=== PATIENT | female | born 1960 | race Caucasian/White ===

== ENCOUNTER 2016-12-03 19:11 | Inpatient (IN) | payer MEDICARE, MEDICAID ==
[~2016-12-03] VITALS: Ht 162.6 cm; Wt 57.1 kg
[~2016-12-03 19:11] MED LIST: HYDR-902 PO
[2016-12-03] MEDS ORDERED: VANCOMYCIN 1 GM (PMX) 250 ML IVPB STA (19:46)
[2016-12-03] MEDS ORDERED: CEFEPIME 2GM/50 ML (PMX) 50 ML IVPB STA (19:46)
[2016-12-03] MEDS ORDERED: SODIUM CHLORIDE 0.9% 1L BAG IV* STA (19:46)
[2016-12-03] MEDS ORDERED: MINE3.5O31 BOTH EYES (20:03)
[2016-12-03] MEDS ORDERED: DOCU-144 PO (20:04)
[2016-12-03 20:06] LABS: BASOPHILS % 0.3 % (0.0-2.0); EOSINOPHILS # 0.3 10^3/ul (0.0-0.5); EOSINOPHILS % 2.4 % (0.0-7.0); HEMOGLOBIN 13.9 g/dl (12.0-16.0); LYMPHOCYTES # 2.6 10^3/ul (0.8-2.9); LYMPHOCYTES % 23.7 % (15.0-51.0); MEAN CORPUSCULAR HEMOGLOBIN 33.3 pg (29.0-33.0); MEAN PLATELET VOLUME 9.9 fl (7.4-10.4); MONOCYTE # 0.9 10^3/ul (0.3-0.9); MONOCYTES % 8.5 % (0.0-11.0); NEUTROPHIL # 7.2 10^3/ul (1.6-7.5); NEUTROPHILS % 65.1 % (39.0-77.0); PLATELET COUNT 255 10^3/UL (140-440); RED BLOOD COUNT 4.16 10^6/ul (4.20-5.40); RED CELL DISTRIBUTION WIDTH 14.9 % (11.5-14.5)
[2016-12-03] MEDS ORDERED: CRAN450C PO (20:06)
[2016-12-03] MEDS ORDERED: DULR PR (20:07)
[2016-12-03] MEDS ORDERED: FLEETPED PR (20:08)
[2016-12-03] MEDS ORDERED: LANT3I SC (20:09)
[2016-12-03 20:10] LABS: CONDITION 1; LH ANALYZER COMMENTS 1
[2016-12-03] MEDS ORDERED: BIMA2.5D BOTH EYES (20:11)
[2016-12-03] MEDS ORDERED: MAGN400O4 PO (20:11)
--- NOTE | 2016-12-03 20:11 | RADRPT ---
PROCEDURE: XR Chest. CLINICAL INDICATION: Sepsis. Altered mental status. TECHNIQUE: Single frontal view. COMPARISON: None. FINDINGS: There is patchy air space disease at the left lung base consistent with pneumonia. The lungs are ot herwise clear. The heart size is normal. There is no pleural effusion. There is no pneumothorax. IMPRESSION: 1. Left basilar pneumonia. 2. Otherwise normal chest radiograph. RPTAT: QQ .Adarsh Anna MD, MD Date Time Electronically viewed and signed by .Adarsh Anna MD, MD on 12/03/2016 20:11 .R/
[2016-12-03] MEDS ORDERED: MULT-105 PO (20:13)
[2016-12-03 20:14] LABS: ALBUMIN 3.7 g/dl (3.3-4.9)
[2016-12-03 20:15] LABS: POTASSIUM 4.6 mmol/L (3.5-5.1)
[2016-12-03] MEDS ORDERED: NOVO3I SC (20:15)
[2016-12-03 20:17] LABS: BILIRUBIN,INDIRECT 0.1 mg/dl (0-1.1); BILIRUBIN,TOTAL 0.1 mg/dl (0.2-1.3); CREATININE 1.13 mg/dl (0.44-1.00); TOTAL PROTEIN 7.4 g/dl (6.1-8.1)
[2016-12-03] MEDS ORDERED: POTA20TA96 PO (20:17)
[2016-12-03] MEDS ORDERED: CRES10 PO (20:17)
[2016-12-03 20:18] LABS: CALCIUM 9.3 mg/dl (8.4-10.2)
[2016-12-03] MEDS ORDERED: OLAN5TAB5 PO (20:18)
[2016-12-03] MEDS ORDERED: ACET325T33 PO (20:19)
[2016-12-03] MEDS ORDERED: TYL500 PO (20:19)
[2016-12-03 20:29] LABS: TROPONIN-I 0.069 ng/ml (0.00-0.12)
--- NOTE | 2016-12-03 20:29 | RADRPT ---
PROCEDURE: CT Brain without contrast. CLINICAL INDICATION: Sepsis. TECHNIQUE: A CT of the brain without contrast was performed utilizing axial sections from the skul l base through the vertex. The patient was scanned without intravenous contrast enhancement. Sagitta l and coronal reformatted images were obtained using the data from the axial images. Total exam DLP is 856.26 mGy-cm. CTDIvol is 43.26 mGy. One or more of the following dose reduction techniques we re used: Automated exposure control, adjustment of the mA and/or kV according to patient size, use o f iterative reconstruction technique. COMPARISON: CT scan of the brain dated 11/28/2016. FINDINGS: There is normal gillis-white matter differentiation. There is enlargement of the lateral ventricles out of proportion for the amount of atrophy. This ma y indicate hydrocephalus. There is mild atrophy with enlargement of the subarachnoid spaces. There is no intracranial hemorrhage or space-occupying lesion. There is no skull fracture or lytic lesion. IMPRESSION: 1. Possible hydrocephalus. 2. Mild atrophy. 3. No intracranial hemorrhage. 4. Otherwise unremarkable noncontrast CT scan of the brain. 5. No change from 11/28/2016. RPTAT: QQ .Adarsh Anna MD, MD Date Time Electronically viewed and signed by .Adarsh Anna MD, on 12/03/2016 20:29 .R/
--- NOTE | 2016-12-03 21:13 | ERA ---
ER Documentation Chief Complaint Date/Time DATE: 12/03/16 TIME: 21:04 Chief Complaint increased ALOC x3 days,low O2 sat in the 80s on RA,on NRM upon arrival HPI This is a 56-year-old female sent from a nursing facility for decreased level of consciousness and low oxygenation. Very limited history is given. The patient is typically more alert according to EMS. Do not know if there are any other associated symptoms of vomiting diarrhea fever cough etc. On arrival the patient is awake but only moaning and cannot answer any historical questions ROS All systems reviewed and are negative except as per history of present illness. Medications Home Meds Active Scripts Hydrocodone/Acetaminophen ([place] 10-325 Tablet) 1 Each Tablet, 1 TAB PO Q6H Y for PAIN, #5 TAB Prov:EB CHOW MD 11/28/16 Reported Medications Acetaminophen* (Tylenol*) 500 Mg Tab, 1000 MG PO Q4H Y for PAIN AND OR ELEVATED TEMP, TAB 12/03/16 Acetaminophen* (Tylenol*) 325 Mg Tablet, 650 MG PO Q4H Y for MILD PAIN LEVEL 1-3 , TAB 12/03/16 Olanzapine* (Zyprexa*) 5 Mg Tablet, 5 MG PO QHS, #30 TAB 12/03/16 Rosuvastatin Calcium* (Crestor*) 10 Mg Tablet, 10 MG PO QHS, #30 TAB 12/03/16 Potassium Chloride* (Potassium Chloride*) 20 Meq Tablet.er, 20 MEQ PO DAILY, TAB.SA 12/03/16 Insulin Aspart* (Novolog Insulin Pen*) 100 Unit/Ml Soln, 3 UNIT SC WITH BREAKFAST DINNE, EA HOLD INSULIN IF BS IS 80 OR LESS THAN 80 12/03/16 Multivitamin with Minerals (Multivitamins with Minerals) 1 Each Tablet, 1 EACH PO DAILY, TAB 12/03/16 Magnesium Hydroxide* (Milk Of Magnesia*) 400 Mg/5 Ml Oral.susp, 30 ML PO Q24H Y for PRN, ML 12/03/16 Bimatoprost* (Lumigan*) 0.01%-2.5 Ml Opht Drops, 1 DROP BOTH EYES HS, EA 12/03/16 Insulin Glargine* (Lantus*) 100 Unit/Ml Soln, 25 UNIT SC QHS, #1 VIAL 12/03/16 Sod Phosphate/Sod Biphosphate* (Fleet* Enema Pediatric) 66.6 Ml Soln, 66.6 ML AL Q2DAYS Y for CONSTIPATION, ENEMA 12/03/16 Bisacodyl* (Bisacodyl*) 10 Mg Supp, 10 MG AL Q24H Y for PRN, SUPP 12/03/16 Cranberry Fruit Concentrate (CRANBERRY) 450 Mg Capsule, 450 MG PO DAILY, CAP 12/03/16 Docusate Sodium* (Colace*) 100 Mg Capsule, 200 MG PO QHS, #30 CAP 12/03/16 Artificial Tears* (Akwa Oint*) 3.5 Gm Oint, 1 APPLIC BOTH EYES TID, #1 TUB 12/03/16 Allergies Allergies: Coded Allergies: No Known Allergy (Unverified , 12/03/16) PMhx/Soc History of Surgery: Yes (L hip) Hx Neurological Disorder: Yes (seizure, TIA) Hx Cardiac Disorders: Yes (anemia, HTN, ) Hx Psychiatric Problems: Yes (schizophrenia, bipolar) Hx Miscellaneous Medical Probl: Yes (DM2, GERD, glaucoma) Hx Alcohol Use: No Hx Substance Use: No Hx Tobacco Use: No Smoking Status: Never smoker FmHx Unable to obtain due to mental status Physical Exam Vitals Vital Signs Date Time Temp Pulse Resp B/P Pulse Ox O2 Delivery O2 Flow Rate FiO2 12/03/16 21:30 98.0 127 22 130/71 100 Non Rebreather 15.0 12/03/16 19:30 98.0 130 22 149/134 90 Non Rebreather 15.0 12/03/16 19:30 Non Rebreather 15 12/03/16 19:23 98.0 145 22 139/114 90 Physical Exam Const: Well-developed, well-nourished Head: Atraumatic, normocephalic Eyes: Normal Conjunctiva, PERRLA, EOMI, normal sclera, no nystagmus ENT: Normal External Ears, Nose and Mouth, moist mucus membranes. Neck: Full range of motion. No meningismus, no lymphadenopathy. Resp: Decreased bilateral breath sounds left greater than right Cardio: Tachycardia, no murmurs, S1 S2 present Abd: Soft, non distended. Normal bowel sounds, no guarding or rebound/ no grimace, no pulsitile abdominal masses or bruits Skin: No petechiae or rashes, no ecchymosis , no maculopapular rash Back: No midline or flank tenderness Ext: No cyanosis, or edema, lower extremities with muscle wasting and with protective ulcer pads vascularly intact x 4 Neur: Awake follows basic commands like squeezing my hands Psych: Unable to assess Result Diagram: 12/03/16194512/03/161945 Results 24 hrs Laboratory Tests Test 12/03/16 19:46 Alanine Aminotransferase (ALT/SGPT) 22IU/L Albumin 3.7g/dl Albumin/Globulin Ratio 1.00 Alkaline Phosphatase 104IU/L Anion Gap 23 Aspartate Amino Transf (AST/SGOT) 47IU/L Basophils # 0.010^3/ul Basophils % 0.3% Blood Morphology Comment Blood Urea Nitrogen 42mg/dl Calcium Level 9.3mg/dl Carbon Dioxide Level 24mmol/L Chloride Level 113mmol/L Creatinine 1.13mg/dl Direct Bilirubin 0.00mg/dl Eosinophils # 0.310^3/ul Eosinophils % 2.4% Globulin 3.70g/dl Glucose Level 279mg/dl Hematocrit 42.0% Hemoglobin 13.9g/dl Indirect Bilirubin 0.1mg/dl Lactic Acid Level 5.1mmol/L Lymphocytes # 2.610^3/ul Lymphocytes % 23.7% Mean Corpuscular Hemoglobin 33.3pg Mean Corpuscular Hemoglobin Concent 33.0g/dl Mean Corpuscular Volume 101.0fl Mean Platelet Volume 9.9fl Monocytes # 0.910^3/ul Monocytes % 8.5% Neutrophils # 7.210^3/ul Neutrophils % 65.1% Nucleated Red Blood Cells # 0.010^3/ul Nucleated Red Blood Cells % 0.0/100WBC Platelet Count 79077^3/UL Potassium Level 4.6mmol/L Red Blood Count 4.1610^6/ul Red Cell Distribution Width 14.9% Sodium Level 155mmol/L Total Bilirubin 0.1mg/dl Total Protein 7.4g/dl Troponin I 0.069ng/ml White Blood Count 11.010^3/ul Current Medications Medications (Trade) Dose Ordered Sig/Luigi Route PRN Reason Start Time Stop Time Status Last Admin Dose Admin Sodium Chloride 1750 ml 1,750 ml BOLUS OVER 2 HOURS STAT IV* 12/03/16 19:46 12/03/16 19:49 DC 12/03/16 20:00 Vancomycin HCl 250 ml @ 125 mls/hr ONCE STAT IVPB 12/03/16 19:46 12/03/16 21:45 DC 12/03/16 20:01 Cefepime HCl (Maxipime 2gm/50 ml (Pmx)) 50 ml @ 100 mls/hr ONCE STAT IVPB 12/03/16 19:46 12/03/16 20:15 DC 12/03/16 20:01 Procedures/MDM EKG: Rate/Rhythm: Sinus tachycardia QRS, ST, QT: Short AL, normal normal QRS, QT] Impression: Abnormal EKG PROCEDURE: CT Brain without contrast. CLINICAL INDICATION: Sepsis. TECHNIQUE: A CT of the brain without contrast was performed utilizing axial sections from the skull base through the vertex. The patient was scanned without intravenous contrast enhancement. Sagittal and coronal reformatted images were obtained using the data from the axial images. Total exam DLP is 856.26 mGy-cm. CTDIvol is 43.26 mGy. One or more of the following dose reduction techniques were used: Automated exposure control, adjustment of the mA and/or kV according to patient size, use of iterative reconstruction technique. COMPARISON: CT scan of the brain dated 11/28/2016. FINDINGS: There is normal gillis-white matter differentiation. There is enlargement of the lateral ventricles out of proportion for the amount of atrophy. This may indicate hydrocephalus. There is mild atrophy with enlargement of the subarachnoid spaces. There is no intracranial hemorrhage or space-occupying lesion. There is no skull fracture or lytic lesion. IMPRESSION: 1. Possible hydrocephalus. 2. Mild atrophy. 3. No intracranial hemorrhage. 4. Otherwise unremarkable noncontrast CT scan of the brain. 5. No change from 11/28/2016. RPTAT: QQ .Adarsh Anna MD, MD Date Time Electronically viewed and signed by .Adarsh Anna MD, MD on 12/03/2016 20:29 .R/ CC: BEE ABARCA DO PROCEDURE: XR Chest. CLINICAL INDICATION: Sepsis. Altered mental status. TECHNIQUE: Single frontal view. COMPARISON: None. FINDINGS: There is patchy air space disease at the left lung base consistent with pneumonia. The lungs are otherwise clear. The heart size is normal. There is no pleural effusion. There is no pneumothorax. IMPRESSION: 1. Left basilar pneumonia. 2. Otherwise normal chest radiograph. RPTAT: QQ .Adarsh Anna MD, MD Date Time Electronically viewed and signed by .Adarsh Anna MD, on 12/03/2016 20:11 .R/ CC: BEE ABARCA DO Patient's infectious symptoms have not stabilized and the patient is at risk of rapid decompensation. The patient will be admitted for careful hydration, antibiotic therapy, and infectious source control. Severe Sepsis Assessment: Infectious Source: Pneumonia End organ damage indicated by: Lactate > 2.0 mmol/L Hypotension( SBP < 90 or >40 mmHG drop or MAP < 65) Acute Resp Failure (sat < 92% w/o oxygen) Student Support Advisor > 2.0 INR > 1.5 Plt < 100 Bili > 2 Severe Sepsis Managment: Blood Cultures X 2 before broad spectrum antibiotics initiated within 3 hours of recognition. 30 ml/kg NS bolus Completed Initial Lactate: 5.1l Repeat Lactate P Critical Care: Time: 40 minutes Treatments/Evaluations: Emergent fluid management, while maintaining close respiratory support. Immediate broad spectrum antibiotic therapy. Simultaneous assessment for possible sources in order to direct therapy. Consideration for invasive and chemical support to prevent respiratory or cardiac collapse. Septic Shock Assessment (1 hour post 30 ml/kg fluid bolus): Hypotension (SBP < 90 or 40 mmHg drop, MAP < 65): No Lactic acid > 4.0 Y Perfusion Reassessment for Septic Shock: Temp XOXOXO, Pulse 132, RR 13, BP 132/76 Heart Exam: Tachycardic Lung Exam: No Crackles Capillary Refill: Normal Peripheral Pulses: Radially present Skin: Normal Hypotensive Treatment (not required for isolated lactic acid elevation): Comfort Care: No Central LIne: Not indicated currently] Vasopressor started: [None I considered further perfusion assessment with CVP measurement, SCVO2, bedside ultrasound volume assessment, passive leg raise, trial of further fluid bolus. And preceded with XOXOXO Accepting Care Team: Current data and ongoing care discussed. Time: Time of admission Primary Provider: catrina Consulting: brenden Outstanding Data: none Departure Diagnosis: Primary Impression: Sepsis Qualified Code: A41.9 - Sepsis, due to unspecified organism Additional Impression: Pneumonia Qualified Code: J18.9 - Pneumonia of left lower lobe due to infectious organism Condition: BEE Cisneros DO Dec 03, 2016 21:13
[2016-12-03 21:41] LABS: ADD UMIC YES; URINE BILIRUBIN (Dip) NEGATIVE (NEGATIVE); URINE BLOOD (Dip) 2+ (NEGATIVE); URINE COLOR YELLOW (YELLOW); URINE KETONES (Dip) 15 (NEGATIVE); URINE LEUKOCYTE ESTERASE (Dip) TRACE (NEGATIVE); URINE NITRITE (Dip) NEGATIVE (NEGATIVE); URINE TOTAL PROTEIN (Dip) NEGATIVE (NEGATIVE); URINE UROBILINOGEN (Dip) 0.2 E.U./dL (0.1-1.0)
[2016-12-03] MEDS ORDERED: NA PHOSPHATE/BIPHOS 66.6 ML ENEMA PR PRN (22:00)
[2016-12-03] MEDS ORDERED: ONDANSETRON 4 MG INJ IV PRN (22:00)
[2016-12-03] MEDS ORDERED: morphine 2 MG INJ IV PRN (22:00)
[2016-12-03] MEDS ORDERED: HYDROCODONE/APAP (10/325) TAB PO PRN (22:00)
[2016-12-03] MEDS ORDERED: BISACODYL 10 MG SUPP PR PRN (22:00)
[2016-12-03] MEDS ORDERED: MAGNESIUM HYDROXIDE 30ML CUP PO PRN (22:00)
[2016-12-03] MEDS ORDERED: ACETAMINOPHEN 650MG/20.3ML CUP PO PRN (22:00)
[2016-12-03 22:05] LABS: BACTERIA,URINE FEW
[2016-12-03] MEDS ORDERED: GLUCAGON 1 MG INJ IM PRN (23:00)
[2016-12-03] MEDS ORDERED: GLUCOSE GEL 15 GRAM TUBE PO PRN ×2 (23:00)
[2016-12-03] MEDS ORDERED: DEXTROSE 50% 50 ML SYRINGE IV PRN (23:00)
[2016-12-03] MEDS ORDERED: GLUCOSE GEL 15 GRAM TUBE BUCCAL PRN (23:00)
[2016-12-03] MEDS: SOD CHLORIDE 0.9% 1,000 ML IV SCH (23:34)
[2016-12-03] MEDS: LATANOPROST 0.005% 2.5 ML OPH BOTH EYES SCH (23:35)
[2016-12-04] VITALS (58 sets, daily range): BP systolic 78–137; BP diastolic 27–106; PULSE 72–127; RESP 11–23; TEMP 98; Ht 162.6 cm; Wt 57.1 kg
[2016-12-04] MEDS: ALBUTEROL 0.5% (NEB) 2.5 MG/0.5 ML AMP NEB SCH ×6 (01:20→20:10)
[2016-12-04] MEDS ORDERED: SOD CHLORIDE 0.9% 1,000 ML IV ONE (04:00)
[2016-12-04] MEDS ORDERED: NORepinephrine 8MG/250 ML (PMX 250 ML ONE (05:37)
--- NOTE | 2016-12-04 05:40 | EN ---
Date/Time of Note Date/Time of Note DATE: 12/04/16 TIME: 05:40 ER Progress Note Patient's lactic acid was continually elevated. Blood pressure dropped to systolic of 80. Central line was placed. Patient was started on Levophed with titration to SBP of 100 Central Line Placement by me: Patient consented, sterilely draped, full prep, gown, glove, mask, time out performed. Anesthesia: 1% lidocaine locally Location: Left femoral Device: Multiple lumen Technique: Seldinger technique. Secured with suture. Results: Venous return from all ports with easy saline flush. No complications. [XOXOXO]Guide wire retrieved and disposed of. \ ANDRADE OBANDO Dec 04, 2016 05:40
[2016-12-04] MEDS ORDERED: NORepinephrine 8MG/250 ML (PMX 250 ML IV SCH (06:30)
[2016-12-04] MEDS: INSULIN ASPART [NOVOLOG] 3 ML PEN SC SCH ×3 (07:35→17:12)
[2016-12-04] MEDS: SOD CHLORIDE 0.9% 1,000 ML IV SCH ×2 (07:56→08:47)
[2016-12-04] MEDS: POTASSIUM CHLORIDE (SR) 20 MEQ TAB PO SCH (08:33)
[2016-12-04] MEDS: FAMOTIDINE 20 MG INJ IV SCH ×2 (08:38→20:39)
[2016-12-04] MEDS: ENOXAPARIN 30 MG/0.3 ML SYG SC SCH (08:42)
[2016-12-04] MEDS: OCULAR LUBRICANT 3.5 GM OPH OINT BOTH EYES SCH ×3 (08:50→21:53)
[2016-12-04] MEDS: CEFEPIME 1GM/50 ML (PMX) 50 ML IVPB SCH ×3 (09:00→20:42)
--- NOTE | 2016-12-04 11:07 | HP ---
Date/Time of Note Date/Time of Note DATE: 12/04/16 TIME: 11:04 Assessment/Plan VTE Prophylaxis VTE Prophylaxis Intervention: LMWH Lines/Catheters IV Catheter Type (from Nrs): Central Line Central line still needed: Yes Urinary Cath still in place: Yes Reason Cath still needed: skin wounds contaminated by urine Assessment/Plan Chief Complaint/Hosp Course 1) pneumonia, sepsis - IV antibiotics 2) diabetes mellitus - monitor blood sugar 3) hypercholesterolemia - continue medications Problems: HPI/ROS Admit Date/Time Admit Date/Time Dec 03, 2016 at 22:01 Hx of Present Illness Patient with multiple medical problems including diabetes, dementia, hypercholesterolemia, seizure disorder comes in with altered level of consciousness secondary to sepsis associated with pneumonia. Patient has some shortness of breath and evidence of severe sepsis and so she was admitted to the ICU for closer monitoring. PMH/Family/Social Past Medical History seizure disorder Medical History: coronary artery disease, diabetes, high cholesterol Social History Smoking Status: Never smoker Exam/Review of Systems Vital Signs Vitals Vital Signs Date Time Temp Pulse Resp B/P Pulse Ox O2 Delivery O2 Flow Rate FiO2 12/04/16 10:45 83 19 101/47 100 Nasal Cannula 12/04/16 09:00 99.4 12/04/16 08:00 4.0 Intake and Output 12/03/16 12/03/16 12/04/16 15:00 23:00 07:00 Intake Total 100 ml Output Total 1500 ml Balance -1400 ml Exam Constitutional: well developed Head: atraumatic, normocephalic Neck: supple Respiratory: diminished breath sounds Cardiovascular: regular rate and rhythm Gastrointestinal: non-tender, soft Extremities: normal pulses Labs Result Diagram: 12/03/16194512/03/161945 Medications Medications Current Medications Sodium Chloride (NS) 1,000 ml @ 100 mls/hr Q10H IV Last administered on t 08:47; Admin Dose 100 MLS/HR; Start 12/03/16 at 21:56 Ondansetron HCl (Zofran Inj) 4 mg Q6H PRN IV NAUSEA AND/OR VOMITING; Start 12/03 at 22:00 Acetaminophen (Tylenol Liquid) 650 mg Q6H PRN PO PAIN LEVEL 1-3 OR FEVER; Start 12/03/16 at 22:00 Morphine Sulfate (morphine) 2 mg Q4H PRN IV PAIN LEVEL 7-10; Start 12/03/16 at 22:00 Famotidine (Pepcid Iv) 20 mg Q12 IV Last administered on 12/04/16 08:38; Admin Dose 20 MG; Start 12/04/16 at 09:00 Enoxaparin Sodium 30 mg 30 mg DAILY SC Last administered on 12/04/16 08:42; Admin Dose 30 MG; Start 12/04/16 at 09:00 Cefepime HCl (Maxipime 1gm/50 ml (Pmx)) 50 ml @ 100 mls/hr Q12 IVPB ; Start 12/04/16 at 09:00 Eye Lubricant (Akwa Oint) 1 applic TID BOTH EYES ; Start 12/04/16 at 09:00 Bisacodyl (Dulcolax Supp) 10 mg Q24H PRN [place] PRN; Start 12/03/16 at 22:00 Docusate Sodium (Colace) 200 mg QHS PO ; Start 12/04/16 at 21:00 Acetaminophen/ Hydrocodone Bitart ([place] (10/325)) 1 tab Q6H PRN PO PAIN; Start 12/03/16 at 22:00 Insulin Glargine (Lantus) 25 unit QHS SC ; Start 12/04/16 at 21:00 Magnesium Hydroxide (Milk Of Mag) 30 ml Q24H PRN PO PRN; Start 12/03/16 at 22:00 Olanzapine (Zyprexa) 5 mg QHS PO ; Start 12/04/16 at 21:00 Potassium Chloride (Klor-Con 20) 20 meq DAILY PO ; Start 12/04/16 at 09:00 Sodium Biphosphate/ Sodium Phosphate (Fleet Enema Pediatric) 66.6 ml DAILY PRN [place] CONSTIPATION; Start 12/03/16 at 22:00 Latanoprost (Xalatan) 1 drop HS BOTH EYES Last administered on 12/03/16 23:35; Admin Dose 1 DROP; Start 12/03/16 at 23:00 Miscellaneous Information 1 ea NOTE XX ; Start 12/03/16 at 23:00 Glucose (Glutose) 15 gm Q15M PRN PO DECREASED GLUCOSE; Start 12/03/16 at 23:00 Glucose (Glutose) 22.5 gm Q15M PRN PO DECREASED GLUCOSE; Start 12/03/16 at 23:00 Dextrose (D50w Syringe) 25 ml Q15M PRN IV DECREASED GLUCOSE; Start 12/03/16 at 23:00 Dextrose (D50w Syringe) 50 ml Q15M PRN IV DECREASED GLUCOSE; Start 12/03/16 at 23:00 Glucagon (Glucagen) 1 mg Q15M PRN IM DECREASED GLUCOSE; Start 12/03/16 at 23:00 Glucose 15 gm 15 gm Q15M PRN BUCCAL DECREASED GLUCOSE; Start 12/03/16 at 23:00 Norepinephrine 250 ml @ 1.875 mls/ hr TITRATE IV Last administered on t 07:12; Admin Dose 20.625 MLS/HR; Start 12/04/16 at 06:30 Norepinephrine/ Dextrose (Levophed/D5W) 500 ml @ 1.87 mls/hr TITRATE IV ; Start 12/04/16 at 07:30 VIVIENNE MONTILLA Dec 04, 2016 11:07
[2016-12-04 11:21] LABS: BASOPHILS % 0.5 % (0.0-2.0); EOSINOPHILS # 0.2 10^3/ul (0.0-0.5); EOSINOPHILS % 2.2 % (0.0-7.0); HEMATOCRIT 30.5 % (37.0-47.0); LYMPHOCYTES # 3.2 10^3/ul (0.8-2.9); LYMPHOCYTES % 45.1 % (15.0-51.0); MEAN CORPUSCULAR HGB CONC 32.8 g/dl (32.0-37.0); MEAN CORPUSCULAR VOLUME 100.5 fl (82.0-101.0); MEAN PLATELET VOLUME 9.2 fl (7.4-10.4); MONOCYTE # 0.7 10^3/ul (0.3-0.9); MONOCYTES % 9.5 % (0.0-11.0); NEUTROPHIL # 3.1 10^3/ul (1.6-7.5); NEUTROPHILS % 42.7 % (39.0-77.0); PLATELET COUNT 183 10^3/UL (140-440); RED BLOOD COUNT 3.04 10^6/ul (4.20-5.40); RED CELL DISTRIBUTION WIDTH 14.6 % (11.5-14.5); UNCORRECTED WBC 7.2 10^3/ul (4.8-10.8); WHITE BLOOD COUNT 7.2 10^3/ul (4.8-10.8)
[2016-12-04 11:22] LABS: POTASSIUM 3.2 mmol/L (3.5-5.1)
[2016-12-04 11:25] LABS: CALCIUM 7.1 mg/dl (8.4-10.2); CREATININE 0.63 mg/dl (0.44-1.00)
[2016-12-04 11:37] LABS: CONDITION 1; LH ANALYZER COMMENTS 1
[2016-12-04] MEDS ORDERED: POTASSIUM CHLORIDE 250 ML IVPB ONE (12:30)
[2016-12-04] MEDS: SOD CHLORIDE 0.45% 1,000 ML IV SCH ×2 (12:34→23:01)
[2016-12-04] MEDS: LATANOPROST 0.005% 2.5 ML OPH BOTH EYES SCH (20:40)
[2016-12-04] MEDS: DOCUSATE SODIUM 100 MG CAP PO SCH (20:44)
[2016-12-04] MEDS: OLANZAPINE 5 MG TAB PO SCH (20:45)
[2016-12-04] MEDS: INSULIN GLARGINE [LANtus] 3 ML PEN SC SCH (20:55)
[2016-12-04] MEDS ORDERED: BIMATOPROST 0.01% 2.5 ML BTL BOTH EYES SCH (21:00)
[2016-12-05] VITALS (93 sets, daily range): BP systolic 79–145; BP diastolic 33–107; PULSE 70–120; RESP 11–31
[2016-12-05] MEDS: ALBUTEROL 0.5% (NEB) 2.5 MG/0.5 ML AMP NEB SCH ×6 (02:12→20:35)
[2016-12-05 05:01] LABS: BASOPHILS % 0.4 % (0.0-2.0); EOSINOPHILS # 0.4 10^3/ul (0.0-0.5); EOSINOPHILS % 4.8 % (0.0-7.0); HEMATOCRIT 31.7 % (37.0-47.0); HEMOGLOBIN 10.6 g/dl (12.0-16.0); LYMPHOCYTES # 3.7 10^3/ul (0.8-2.9); LYMPHOCYTES % 45.1 % (15.0-51.0); MEAN CORPUSCULAR HEMOGLOBIN 33.5 pg (29.0-33.0); MEAN CORPUSCULAR HGB CONC 33.4 g/dl (32.0-37.0); MEAN CORPUSCULAR VOLUME 100.3 fl (82.0-101.0); MEAN PLATELET VOLUME 9.9 fl (7.4-10.4); MONOCYTE # 0.5 10^3/ul (0.3-0.9); MONOCYTES % 6.5 % (0.0-11.0); NEUTROPHIL # 3.6 10^3/ul (1.6-7.5); NEUTROPHILS % 43.2 % (39.0-77.0); PLATELET COUNT 201 10^3/UL (140-440); RED BLOOD COUNT 3.16 10^6/ul (4.20-5.40); RED CELL DISTRIBUTION WIDTH 14.3 % (11.5-14.5); UNCORRECTED WBC 8.2 10^3/ul (4.8-10.8); WHITE BLOOD COUNT 8.2 10^3/ul (4.8-10.8)
[2016-12-05 05:04] LABS: POTASSIUM 3.3 mmol/L (3.5-5.1)
[2016-12-05 05:07] LABS: CREATININE 0.56 mg/dl (0.44-1.00)
[2016-12-05 05:08] LABS: CALCIUM 7.5 mg/dl (8.4-10.2); MAGNESIUM 1.4 mg/dl (1.7-2.5); PHOSPHORUS 1.7 mg/dl (2.5-4.9)
[2016-12-05 05:32] LABS: CONDITION 1
[2016-12-05] MEDS: CEFEPIME 1GM/50 ML (PMX) 50 ML IVPB SCH ×2 (08:51→20:58)
[2016-12-05] MEDS: POTASSIUM CHLORIDE (SR) 20 MEQ TAB PO SCH (08:51)
[2016-12-05] MEDS: FAMOTIDINE 20 MG INJ IV SCH ×2 (08:51→20:57)
[2016-12-05] MEDS: INSULIN ASPART [NOVOLOG] 3 ML PEN SC SCH ×5 (08:53→20:45)
[2016-12-05] MEDS: ENOXAPARIN 30 MG/0.3 ML SYG SC SCH (08:54)
[2016-12-05] MEDS: OCULAR LUBRICANT 3.5 GM OPH OINT BOTH EYES SCH ×3 (08:56→20:56)
[2016-12-05] MEDS: SOD CHLORIDE 0.45% 1,000 ML IV SCH ×2 (09:00→18:30)
--- NOTE | 2016-12-05 11:47 | PN ---
Date/Time of Note Date/Time of Note DATE: 12/05/16 TIME: 11:46 Assessment/Plan VTE Prophylaxis VTE Prophylaxis Intervention: LMWH Lines/Catheters IV Catheter Type (from Nrs): Central Line Central line still needed: Yes Urinary Cath still in place: Yes Reason Cath still needed: skin wounds contaminated by urine Assessment/Plan Chief Complaint/Hosp Course 1) pneumonia, sepsis - IV antibiotics 2) diabetes mellitus - monitor blood sugar 3) hypercholesterolemia - continue medications Problems: Subjective 24 Hr Interval Summary Free Text/Dictation Eyes open but not interactive Exam/Review of Systems Vital Signs Vitals Vital Signs Date Time Temp Pulse Resp B/P Pulse Ox O2 Delivery O2 Flow Rate FiO2 12/05/16 08:44 97 15 100 Nasal Cannula 3.0 12/05/16 08:30 110/47 12/05/16 08:00 99.2 Intake and Output 12/04/16 12/04/16 12/05/16 14:59 22:59 06:59 Intake Total 1026.250 ml 620.0 ml 933 ml Output Total 430 ml 395 ml 430 ml Balance 596.250 ml 225.0 ml 503 ml Exam Constitutional: well developed Head: atraumatic, normocephalic Neck: supple Respiratory: diminished breath sounds Cardiovascular: regular rate and rhythm Gastrointestinal: non-tender, soft Extremities: normal pulses Results Result Diagram: 12/05/16 0400 12/05/16 0400 Results 24 hrs Laboratory Tests Test 12/04/16 17:11 12/04/16 20:51 12/05/16 04:00 12/05/16 08:45 Bedside Glucose 112 125 226 H Anion Gap 11 Basophils # 0.0 Basophils % 0.4 Blood Urea Nitrogen 14 # Calcium Level 7.5 L Carbon Dioxide Level 25 Chloride Level 112 H Creatinine 0.56 Eosinophils # 0.4 Eosinophils % 4.8 Glucose Level 221 H Hematocrit 31.7 L Hemoglobin 10.6 L Lymphocytes # 3.7 H Lymphocytes % 45.1 Magnesium Level 1.4 L Mean Corpuscular Hemoglobin 33.5 H Mean Corpuscular Hemoglobin Concent 33.4 Mean Corpuscular Volume 100.3 Mean Platelet Volume 9.9 Monocytes # 0.5 Monocytes % 6.5 Neutrophils # 3.6 Neutrophils % 43.2 Nucleated Red Blood Cells # 0.0 Nucleated Red Blood Cells % 0.0 Phosphorus Level 1.7 L Platelet Count 201 Potassium Level 3.3 L Red Blood Count 3.16 L Red Cell Distribution Width 14.3 Sodium Level 145 H White Blood Count 8.2 Medications Medications Current Medications Ondansetron HCl (Zofran Inj) 4 mg Q6H PRN IV NAUSEA AND/OR VOMITING; Start 12/03 at 22:00 Acetaminophen (Tylenol Liquid) 650 mg Q6H PRN PO PAIN LEVEL 1-3 OR FEVER; Start 12/03/16 at 22:00 Morphine Sulfate (morphine) 2 mg Q4H PRN IV PAIN LEVEL 7-10; Start 12/03/16 at 22:00 Famotidine (Pepcid Iv) 20 mg Q12 IV Last administered on 12/05/16 08:51; Admin Dose 20 MG; Start 12/04/16 at 09:00 Enoxaparin Sodium 30 mg 30 mg DAILY SC Last administered on 12/05/16 08:54; Admin Dose 30 MG; Start 12/04/16 at 09:00 Cefepime HCl (Maxipime 1gm/50 ml (Pmx)) 50 ml @ 100 mls/hr Q12 IVPB Last administered on 12/05/16 08:51; Admin Dose 100 MLS/HR; Start 12/04/16 at 09:00 Eye Lubricant (Akwa Oint) 1 applic TID BOTH EYES Last administered on 12/05/16 08:56; Admin Dose 1 APPLIC; Start 12/04/16 at 09:00 Bisacodyl (Dulcolax Supp) 10 mg Q24H PRN [place] PRN; Start 12/03/16 at 22:00 Docusate Sodium (Colace) 200 mg QHS PO ; Start 12/04/16 at 21:00 Acetaminophen/ Hydrocodone Bitart ([place] (10/325)) 1 tab Q6H PRN PO PAIN; Start 12/03/16 at 22:00 Insulin Glargine (Lantus) 25 unit QHS SC Last administered on 12/04/16 20:55; Admin Dose 25 UNIT; Start 12/04/16 at 21:00 Magnesium Hydroxide (Milk Of Mag) 30 ml Q24H PRN PO PRN; Start 12/03/16 at 22:00 Olanzapine (Zyprexa) 5 mg QHS PO ; Start 12/04/16 at 21:00 Potassium Chloride (Klor-Con 20) 20 meq DAILY PO Last administered on 12/05/16 08:51; Admin Dose 20 MEQ; Start 12/04/16 at 09:00 Sodium Biphosphate/ Sodium Phosphate (Fleet Enema Pediatric) 66.6 ml DAILY PRN [place] CONSTIPATION; Start 12/03/16 at 22:00 Latanoprost (Xalatan) 1 drop HS BOTH EYES Last administered on 12/04/16 20:40; Admin Dose 1 DROP; Start 12/03/16 at 23:00 Miscellaneous Information 1 ea NOTE XX ; Start 12/03/16 at 23:00 Glucose (Glutose) 15 gm Q15M PRN PO DECREASED GLUCOSE; Start 12/03/16 at 23:00 Glucose (Glutose) 22.5 gm Q15M PRN PO DECREASED GLUCOSE; Start 12/03/16 at 23:00 Dextrose (D50w Syringe) 25 ml Q15M PRN IV DECREASED GLUCOSE; Start 12/03/16 at 23:00 Dextrose (D50w Syringe) 50 ml Q15M PRN IV DECREASED GLUCOSE; Start 12/03/16 at 23:00 Glucagon (Glucagen) 1 mg Q15M PRN IM DECREASED GLUCOSE; Start 12/03/16 at 23:00 Glucose 15 gm 15 gm Q15M PRN BUCCAL DECREASED GLUCOSE; Start 12/03/16 at 23:00 Norepinephrine 16 mg/Dextrose 500 ml @ 1.87 mls/hr TITRATE IV Last administered on 12/04/16 17:04; Admin Dose 15 MLS/HR; Start 12/04/16 at 07:30 Sodium Chloride (1/2 NS) 1,000 ml @ 100 mls/hr Q10H IV Last administered on 09:00; Admin Dose 100 MLS/HR; Start 12/04/16 at 12:30 Insulin Aspart (Novolog Insulin Pen) NOVOLOG *MODERATE* ALGORI... Q4 SC ; Start 12/05/16 at 13:00 VIVIENNE MONTILLA Dec 05, 2016 11:46
[2016-12-05] MEDS ORDERED: COLLAGENASE 30 GM TUBE TOP PRN (12:30)
[2016-12-05] MEDS: COLLAGENASE 30 GM TUBE TOP SCH (14:26)
[2016-12-05] MEDS: OLANZAPINE 5 MG TAB PO SCH (20:57)
[2016-12-05] MEDS: DOCUSATE SODIUM 100 MG CAP PO SCH (20:57)
[2016-12-05] MEDS: INSULIN GLARGINE [LANtus] 3 ML PEN SC SCH (21:17)
[2016-12-05] MEDS: LATANOPROST 0.005% 2.5 ML OPH BOTH EYES SCH (22:46)
[2016-12-06] VITALS (90 sets, daily range): BP systolic 70–146; BP diastolic 35–120; PULSE 72–129; RESP 12–39
[2016-12-06] MEDS: ALBUTEROL 0.5% (NEB) 2.5 MG/0.5 ML AMP NEB SCH ×6 (00:25→20:13)
[2016-12-06] MEDS: INSULIN ASPART [NOVOLOG] 3 ML PEN SC SCH ×9 (01:00→20:52)
[2016-12-06] MEDS: DEXTROSE 50% 50 ML SYRINGE IV PRN (05:48)
[2016-12-06] MEDS: SOD CHLORIDE 0.45% 1,000 ML IV SCH ×2 (06:21→18:00)
[2016-12-06 07:48] LABS: BASOPHILS % 0.5 % (0.0-2.0); EOSINOPHILS # 0.3 10^3/ul (0.0-0.5); EOSINOPHILS % 4.6 % (0.0-7.0); HEMATOCRIT 29.3 % (37.0-47.0); LYMPHOCYTES # 3.1 10^3/ul (0.8-2.9); MEAN CORPUSCULAR HEMOGLOBIN 33.8 pg (29.0-33.0); MEAN CORPUSCULAR HGB CONC 34.1 g/dl (32.0-37.0); MEAN CORPUSCULAR VOLUME 99.1 fl (82.0-101.0); MEAN PLATELET VOLUME 8.3 fl (7.4-10.4); MONOCYTE # 0.6 10^3/ul (0.3-0.9); MONOCYTES % 8.6 % (0.0-11.0); NEUTROPHIL # 2.5 10^3/ul (1.6-7.5); NEUTROPHILS % 38.3 % (39.0-77.0); PLATELET COUNT 194 10^3/UL (140-440); RED BLOOD COUNT 2.95 10^6/ul (4.20-5.40); RED CELL DISTRIBUTION WIDTH 14.3 % (11.5-14.5); UNCORRECTED WBC 6.4 10^3/ul (4.8-10.8); WHITE BLOOD COUNT 6.4 10^3/ul (4.8-10.8)
[2016-12-06 07:57] LABS: CONDITION 1
[2016-12-06 08:10] LABS: ALBUMIN 2.4 g/dl (3.3-4.9)
[2016-12-06 08:11] LABS: POTASSIUM 3.3 mmol/L (3.5-5.1)
[2016-12-06 08:13] LABS: ALBUMIN/GLOBULIN RATIO 0.85; BILIRUBIN,INDIRECT 0.1 mg/dl (0-1.1); BILIRUBIN,TOTAL 0.1 mg/dl (0.2-1.3); CREATININE 0.55 mg/dl (0.44-1.00); TOTAL PROTEIN 5.2 g/dl (6.1-8.1)
[2016-12-06 08:14] LABS: CALCIUM 7.7 mg/dl (8.4-10.2)
[2016-12-06] MEDS: POTASSIUM CHLORIDE (SR) 20 MEQ TAB PO SCH (09:10)
[2016-12-06] MEDS: FAMOTIDINE 20 MG INJ IV SCH ×2 (09:10→20:32)
[2016-12-06] MEDS: OCULAR LUBRICANT 3.5 GM OPH OINT BOTH EYES SCH ×3 (09:11→20:31)
[2016-12-06] MEDS: CEFEPIME 1GM/50 ML (PMX) 50 ML IVPB SCH ×2 (09:11→20:32)
[2016-12-06] MEDS: COLLAGENASE 30 GM TUBE TOP SCH (09:11)
[2016-12-06] MEDS: ENOXAPARIN 30 MG/0.3 ML SYG SC SCH (09:18)
--- NOTE | 2016-12-06 11:57 | PN ---
Date/Time of Note Date/Time of Note DATE: 12/06/16 TIME: 11:56 Assessment/Plan VTE Prophylaxis VTE Prophylaxis Intervention: LMWH Lines/Catheters IV Catheter Type (from Nrs): Central Line Central line still needed: Yes Urinary Cath still in place: Yes Reason Cath still needed: skin wounds contaminated by urine Assessment/Plan Chief Complaint/Hosp Course 1) pneumonia, sepsis - IV antibiotics 2) diabetes mellitus - monitor blood sugar 3) hypercholesterolemia - continue medications Problems: Subjective 24 Hr Interval Summary Free Text/Dictation Patient is more awake, verbally responsive Exam/Review of Systems Vital Signs Vitals Vital Signs Date Time Temp Pulse Resp B/P Pulse Ox O2 Delivery O2 Flow Rate FiO2 12/06/16 09:30 83 20 107/50 98 Nasal Cannula 12/06/16 08:11 1.0 12/06/16 08:00 98.8 12/06/16 00:27 Intake and Output 12/05/16 12/05/16 12/06/16 15:00 23:00 07:00 Intake Total 914 ml 863.66 ml 602.94 ml Output Total 730 ml 940 ml 810 ml Balance 184 ml -76.34 ml -207.06 ml Exam Constitutional: well developed Head: atraumatic, normocephalic Neck: supple Respiratory: diminished breath sounds Cardiovascular: regular rate and rhythm Gastrointestinal: non-tender, soft Extremities: normal pulses Results Result Diagram: 12/06/16 0730 12/06/16 0730 Results 24 hrs Laboratory Tests Test 12/05/16 12:49 12/05/16 17:35 12/05/16 20:44 12/06/16 01:26 Bedside Glucose 151 72 77 80 Test 12/06/16 05:40 12/06/16 06:23 12/06/16 07:30 12/06/16 07:33 Bedside Glucose 48 *L 162 143 Alanine Aminotransferase (ALT/SGPT) 26 Albumin 2.4 L Albumin/Globulin Ratio 0.85 Alkaline Phosphatase 71 Anion Gap 11 Aspartate Amino Transf (AST/SGOT) 41 Basophils # 0.0 Basophils % 0.5 Blood Urea Nitrogen 5 #L Calcium Level 7.7 L Carbon Dioxide Level 30 Chloride Level 107 Creatinine 0.55 Direct Bilirubin 0.00 Eosinophils # 0.3 Eosinophils % 4.6 Globulin 2.80 Glucose Level 143 # Hematocrit 29.3 L Hemoglobin 10.0 L Indirect Bilirubin 0.1 Lymphocytes # 3.1 H Lymphocytes % 48.0 Mean Corpuscular Hemoglobin 33.8 H Mean Corpuscular Hemoglobin Concent 34.1 Mean Corpuscular Volume 99.1 Mean Platelet Volume 8.3 Monocytes # 0.6 Monocytes % 8.6 Neutrophils # 2.5 Neutrophils % 38.3 L Nucleated Red Blood Cells # 0.0 Nucleated Red Blood Cells % 0.0 Platelet Count 194 Potassium Level 3.3 L Red Blood Count 2.95 L Red Cell Distribution Width 14.3 Sodium Level 145 H Total Bilirubin 0.1 L Total Protein 5.2 L White Blood Count 6.4 # Medications Medications Current Medications Ondansetron HCl (Zofran Inj) 4 mg Q6H PRN IV NAUSEA AND/OR VOMITING; Start 12/03 at 22:00 Acetaminophen (Tylenol Liquid) 650 mg Q6H PRN PO PAIN LEVEL 1-3 OR FEVER; Start 12/03/16 at 22:00 Morphine Sulfate (morphine) 2 mg Q4H PRN IV PAIN LEVEL 7-10; Start 12/03/16 at 22:00 Famotidine (Pepcid Iv) 20 mg Q12 IV Last administered on 12/06/16 09:10; Admin Dose 20 MG; Start 12/04/16 at 09:00 Enoxaparin Sodium 30 mg 30 mg DAILY SC Last administered on 12/06/16 09:18; Admin Dose 30 MG; Start 12/04/16 at 09:00 Cefepime HCl (Maxipime 1gm/50 ml (Pmx)) 50 ml @ 100 mls/hr Q12 IVPB Last administered on 12/06/16 09:11; Admin Dose 100 MLS/HR; Start 12/04/16 at 09:00 Eye Lubricant (Akwa Oint) 1 applic TID BOTH EYES Last administered on 12/06/16 09:11; Admin Dose 1 APPLIC; Start 12/04/16 at 09:00 Bisacodyl (Dulcolax Supp) 10 mg Q24H PRN [place] PRN; Start 12/03/16 at 22:00 Docusate Sodium (Colace) 200 mg QHS PO Last administered on 12/05/16 20:57; Admin Dose 200 MG; Start 12/04/16 at 21:00 Acetaminophen/ Hydrocodone Bitart ([place] ()) 1 tab Q6H PRN PO PAIN; Start 12/03/16 at 22:00 Insulin Glargine (Lantus) 25 unit QHS SC Last administered on 12/05/16 21:17; Admin Dose 25 UNIT; Start 12/04/16 at 21:00 Magnesium Hydroxide (Milk Of Mag) 30 ml Q24H PRN PO PRN; Start 12/03/16 at 22:00 Olanzapine (Zyprexa) 5 mg QHS PO Last administered on 12/05/16 20:57; Admin Dose 5 MG; Start 12/04/16 at 21:00 Potassium Chloride (Klor-Con 20) 20 meq DAILY PO Last administered on 12/06/16 09:10; Admin Dose 20 MEQ; Start 12/04/16 at 09:00 Sodium Biphosphate/ Sodium Phosphate (Fleet Enema Pediatric) 66.6 ml DAILY PRN [place] CONSTIPATION; Start 12/03/16 at 22:00 Latanoprost (Xalatan) 1 drop HS BOTH EYES Last administered on 12/05/16 22:46; Admin Dose 1 DROP; Start 12/03/16 at 23:00 Miscellaneous Information 1 ea NOTE XX ; Start 12/03/16 at 23:00 Glucose (Glutose) 15 gm Q15M PRN PO DECREASED GLUCOSE; Start 12/03/16 at 23:00 Glucose (Glutose) 22.5 gm Q15M PRN PO DECREASED GLUCOSE; Start 12/03/16 at 23:00 Dextrose (D50w Syringe) 25 ml Q15M PRN IV DECREASED GLUCOSE Last administered on 12/06/16 05:48; Admin Dose 25 ML; Start 12/03/16 at 23:00 Dextrose (D50w Syringe) 50 ml Q15M PRN IV DECREASED GLUCOSE; Start 12/03/16 at 23:00 Glucagon (Glucagen) 1 mg Q15M PRN IM DECREASED GLUCOSE; Start 12/03/16 at 23:00 Glucose 15 gm 15 gm Q15M PRN BUCCAL DECREASED GLUCOSE; Start 12/03/16 at 23:00 Norepinephrine 16 mg/Dextrose 500 ml @ 1.87 mls/hr TITRATE IV Last administered on 12/04/16 17:04; Admin Dose 15 MLS/HR; Start 12/04/16 at 07:30 Sodium Chloride (1/2 NS) 1,000 ml @ 100 mls/hr Q10H IV Last administered on 06:21; Admin Dose 100 MLS/HR; Start 12/04/16 at 12:30 Insulin Aspart (Novolog Insulin Pen) NOVOLOG *MODERATE* ALGORI... Q4 SC Last administered on 12/05/16 12:50; Admin Dose 2 UNIT; Start 12/05/16 at 13:00 Collagenase (Santyl) 1 applic DAILY TOP Last administered on 12/06/16 09:11; Admin Dose 1 APPLIC; Start 12/05/16 at 13:30 Collagenase (Santyl) 1 applic PRN PRN TOP .SOILING; Start 12/05/16 at 12:30 VIVIENNE MONTILLA Dec 06, 2016 11:57
[2016-12-06 12:19] LABS: MAGNESIUM 1.4 mg/dl (1.7-2.5); PHOSPHORUS 2.1 mg/dl (2.5-4.9)
[2016-12-06] MEDS ORDERED: MAGNESIUM SULFATE 2 GM/50 ML 50 ML IVPB ONE (14:30)
[2016-12-06] MEDS: LATANOPROST 0.005% 2.5 ML OPH BOTH EYES SCH (20:32)
[2016-12-06] MEDS: DOCUSATE SODIUM 100 MG CAP PO SCH (20:33)
[2016-12-06] MEDS: OLANZAPINE 5 MG TAB PO SCH (20:33)
[2016-12-06] MEDS: INSULIN GLARGINE [LANtus] 3 ML PEN SC SCH (20:51)
[2016-12-07] VITALS (86 sets, daily range): BP systolic 77–262; BP diastolic 29–241; PULSE 62–117; RESP 12–24
[2016-12-07] MEDS: SOD CHLORIDE 0.45% 1,000 ML IV SCH ×3 (00:30→14:38)
[2016-12-07] MEDS: ALBUTEROL 0.5% (NEB) 2.5 MG/0.5 ML AMP NEB SCH ×6 (01:22→20:17)
[2016-12-07] MEDS: ACCUCHECK XX SCH (02:00)
[2016-12-07 05:12] LABS: CREATININE 0.61 mg/dl (0.44-1.00)
[2016-12-07 05:13] LABS: CALCIUM 7.6 mg/dl (8.4-10.2)
[2016-12-07 05:15] LABS: POTASSIUM 2.8 mmol/L (3.5-5.1)
[2016-12-07] MEDS ORDERED: POTASSIUM CHLORIDE (SR) 20 MEQ TAB PO ONE (05:24)
[2016-12-07 06:01] LABS: BASOPHILS % 0.6 % (0.0-2.0); EOSINOPHILS # 0.2 10^3/ul (0.0-0.5); EOSINOPHILS % 2.9 % (0.0-7.0); HEMATOCRIT 27.5 % (37.0-47.0); HEMOGLOBIN 9.4 g/dl (12.0-16.0); LYMPHOCYTES # 3.5 10^3/ul (0.8-2.9); LYMPHOCYTES % 58.9 % (15.0-51.0); MEAN CORPUSCULAR HEMOGLOBIN 33.6 pg (29.0-33.0); MEAN CORPUSCULAR VOLUME 98.9 fl (82.0-101.0); MEAN PLATELET VOLUME 8.4 fl (7.4-10.4); MONOCYTE # 0.4 10^3/ul (0.3-0.9); MONOCYTES % 6.2 % (0.0-11.0); NEUTROPHIL # 1.9 10^3/ul (1.6-7.5); NEUTROPHILS % 31.4 % (39.0-77.0); PLATELET COUNT 195 10^3/UL (140-440); RED BLOOD COUNT 2.78 10^6/ul (4.20-5.40); RED CELL DISTRIBUTION WIDTH 14.1 % (11.5-14.5)
[2016-12-07 06:12] LABS: CONDITION 1; LH ANALYZER COMMENTS 1
[2016-12-07] MEDS: CEFEPIME 1GM/50 ML (PMX) 50 ML IVPB SCH ×2 (08:35→21:04)
[2016-12-07] MEDS: POTASSIUM CHLORIDE (SR) 20 MEQ TAB PO SCH (08:35)
[2016-12-07] MEDS: OCULAR LUBRICANT 3.5 GM OPH OINT BOTH EYES SCH ×3 (08:36→21:03)
[2016-12-07] MEDS: COLLAGENASE 30 GM TUBE TOP SCH (08:36)
[2016-12-07] MEDS: ENOXAPARIN 30 MG/0.3 ML SYG SC SCH (08:39)
[2016-12-07] MEDS: INSULIN ASPART [NOVOLOG] 3 ML PEN SC SCH ×6 (08:40→20:46)
[2016-12-07] MEDS: FAMOTIDINE 20 MG INJ IV SCH ×2 (08:41→21:04)
--- NOTE | 2016-12-07 14:12 | PN ---
Date/Time of Note Date/Time of Note DATE: 12/07/16 TIME: 14:11 Assessment/Plan VTE Prophylaxis VTE Prophylaxis Intervention: LMWH Lines/Catheters IV Catheter Type (from Nrs): Central Line Central line still needed: Yes Urinary Cath still in place: Yes Reason Cath still needed: skin wounds contaminated by urine Assessment/Plan Chief Complaint/Hosp Course 1) pneumonia, sepsis - IV antibiotics 2) diabetes mellitus - monitor blood sugar 3) hypercholesterolemia - continue medications Problems: Subjective 24 Hr Interval Summary Free Text/Dictation Patient more awake, vasopressors are off Exam/Review of Systems Vital Signs Vitals Vital Signs Date Time Temp Pulse Resp B/P Pulse Ox O2 Delivery O2 Flow Rate FiO2 12/07/16 14:00 109 16 94/41 99 Room Air 12/07/16 12:16 21 12/07/16 12:00 98.5 12/06/16 08:11 1.0 Intake and Output 12/06/16 12/06/16 12/07/16 15:00 23:00 07:00 Intake Total 909.92 ml 1110.00 ml 776.25 ml Output Total 800 ml 950 ml 975 ml Balance 109.92 ml 160.00 ml -198.75 ml Exam Psych: nl mood/affect, no complaints Neck: supple Respiratory: diminished breath sounds Cardiovascular: regular rate and rhythm Gastrointestinal: non-tender, soft Results Result Diagram: 12/07/16 0450 12/07/16 0450 Results 24 hrs Laboratory Tests Test 12/06/16 17:07 12/06/16 20:48 12/07/16 02:08 12/07/16 04:50 Bedside Glucose 119 178 140 Anion Gap 10 Basophils # 0.0 Basophils % 0.6 Blood Urea Nitrogen 4 L Calcium Level 7.6 L Carbon Dioxide Level 31 Chloride Level 105 Creatinine 0.61 Differential Comment AUTO w/SCAN Eosinophils # 0.2 Eosinophils % 2.9 Glucose Level 127 Hematocrit 27.5 L Hemoglobin 9.4 L Lymphocytes # 3.5 H Lymphocytes % 58.9 H Magnesium Level 1.9 Mean Corpuscular Hemoglobin 33.6 H Mean Corpuscular Hemoglobin Concent 34.0 Mean Corpuscular Volume 98.9 Mean Platelet Volume 8.4 Monocytes # 0.4 Monocytes % 6.2 Neutrophils # 1.9 Neutrophils % 31.4 L Nucleated Red Blood Cells # 0.0 Nucleated Red Blood Cells % 0.0 Platelet Count 195 Potassium Level 2.8 *L Red Blood Count 2.78 L Red Cell Distribution Width 14.1 Sodium Level 143 White Blood Count 6.0 Test 12/07/16 07:32 12/07/16 12:31 Bedside Glucose 148 118 Medications Medications Current Medications Ondansetron HCl (Zofran Inj) 4 mg Q6H PRN IV NAUSEA AND/OR VOMITING; Start 12/03 at 22:00 Acetaminophen (Tylenol Liquid) 650 mg Q6H PRN PO PAIN LEVEL 1-3 OR FEVER; Start 12/03/16 at 22:00 Morphine Sulfate (morphine) 2 mg Q4H PRN IV PAIN LEVEL 7-10; Start 12/03/16 at 22:00 Famotidine (Pepcid Iv) 20 mg Q12 IV Last administered on 12/07/16 08:41; Admin Dose 20 MG; Start 12/04/16 at 09:00 Enoxaparin Sodium 30 mg 30 mg DAILY SC Last administered on 12/07/16 08:39; Admin Dose 30 MG; Start 12/04/16 at 09:00 Cefepime HCl (Maxipime 1gm/50 ml (Pmx)) 50 ml @ 100 mls/hr Q12 IVPB Last administered on 12/07/16 08:35; Admin Dose 100 MLS/HR; Start 12/04/16 at 09:00 Eye Lubricant (Akwa Oint) 1 applic TID BOTH EYES Last administered on 12/07/16 13:07; Admin Dose 1 APPLIC; Start 12/04/16 at 09:00 Bisacodyl (Dulcolax Supp) 10 mg Q24H PRN [place] PRN; Start 12/03/16 at 22:00 Docusate Sodium (Colace) 200 mg QHS PO Last administered on 12/06/16 20:33; Admin Dose 200 MG; Start 12/04/16 at 21:00 Acetaminophen/ Hydrocodone Bitart ([place] (10/325)) 1 tab Q6H PRN PO PAIN; Start 12/03/16 at 22:00 Insulin Glargine (Lantus) 25 unit QHS SC Last administered on 12/06/16 20:51; Admin Dose 25 UNIT; Start 12/04/16 at 21:00 Magnesium Hydroxide (Milk Of Mag) 30 ml Q24H PRN PO PRN; Start 12/03/16 at 22:00 Olanzapine (Zyprexa) 5 mg QHS PO Last administered on 12/06/16 20:33; Admin Dose 5 MG; Start 12/04/16 at 21:00 Potassium Chloride (Klor-Con 20) 20 meq DAILY PO Last administered on 12/07/16 08:35; Admin Dose 20 MEQ; Start 12/04/16 at 09:00 Sodium Biphosphate/ Sodium Phosphate (Fleet Enema Pediatric) 66.6 ml DAILY PRN [place] CONSTIPATION; Start 12/03/16 at 22:00 Latanoprost (Xalatan) 1 drop HS BOTH EYES Last administered on 12/06/16 20:32; Admin Dose 1 DROP; Start 12/03/16 at 23:00 Miscellaneous Information 1 ea NOTE XX ; Start 12/03/16 at 23:00 Glucose (Glutose) 15 gm Q15M PRN PO DECREASED GLUCOSE; Start 12/03/16 at 23:00 Glucose (Glutose) 22.5 gm Q15M PRN PO DECREASED GLUCOSE; Start 12/03/16 at 23:00 Dextrose (D50w Syringe) 25 ml Q15M PRN IV DECREASED GLUCOSE Last administered on 12/06/16 05:48; Admin Dose 25 ML; Start 12/03/16 at 23:00 Dextrose (D50w Syringe) 50 ml Q15M PRN IV DECREASED GLUCOSE; Start 12/03/16 at 23:00 Glucagon (Glucagen) 1 mg Q15M PRN IM DECREASED GLUCOSE; Start 12/03/16 at 23:00 Glucose 15 gm 15 gm Q15M PRN BUCCAL DECREASED GLUCOSE; Start 12/03/16 at 23:00 Norepinephrine 16 mg/Dextrose 500 ml @ 1.87 mls/hr TITRATE IV Last administered on 12/07/16 05:35; Admin Dose 3.75 MLS/HR; Start 12/04/16 at 07:30 Sodium Chloride (1/2 NS) 1,000 ml @ 100 mls/hr Q10H IV Last administered on 04:02; Admin Dose 100 MLS/HR; Start 12/04/16 at 12:30 Collagenase (Santyl) 1 applic DAILY TOP Last administered on 12/07/16 08:36; Admin Dose 1 APPLIC; Start 12/05/16 at 13:30 Collagenase (Santyl) 1 applic PRN PRN TOP .SOILING; Start 12/05/16 at 12:30 Diagnostic Test (Pha) (Accucheck) 1 ea 02 XX ; Start 12/07/16 at 02:00 VIVIENNE MONTILLA Dec 07, 2016 14:12
[2016-12-07] MEDS: DOCUSATE SODIUM 100 MG CAP PO SCH (21:04)
[2016-12-07] MEDS: LATANOPROST 0.005% 2.5 ML OPH BOTH EYES SCH (21:04)
[2016-12-07] MEDS: OLANZAPINE 5 MG TAB PO SCH (21:05)
[2016-12-07] MEDS: INSULIN GLARGINE [LANtus] 3 ML PEN SC SCH (21:06)
[2016-12-08] VITALS (95 sets, daily range): BP systolic 81–129; BP diastolic 42–111; PULSE 72–128; RESP 13–26
[2016-12-08] MEDS: ALBUTEROL 0.5% (NEB) 2.5 MG/0.5 ML AMP NEB SCH ×3 (00:47→08:44)
[2016-12-08] MEDS: SOD CHLORIDE 0.45% 1,000 ML IV SCH ×2 (01:19→12:44)
[2016-12-08] MEDS: ACCUCHECK XX SCH (02:00)
[2016-12-08] MEDS: INSULIN ASPART [NOVOLOG] 3 ML PEN SC SCH ×6 (07:48→21:31)
[2016-12-08] MEDS: CEFEPIME 1GM/50 ML (PMX) 50 ML IVPB SCH ×2 (08:30→21:27)
[2016-12-08] MEDS: OCULAR LUBRICANT 3.5 GM OPH OINT BOTH EYES SCH ×3 (08:31→21:27)
[2016-12-08] MEDS: POTASSIUM CHLORIDE (SR) 20 MEQ TAB PO SCH (08:31)
[2016-12-08] MEDS: FAMOTIDINE 20 MG INJ IV SCH ×2 (08:32→21:33)
[2016-12-08] MEDS: ENOXAPARIN 30 MG/0.3 ML SYG SC SCH (08:33)
--- NOTE | 2016-12-08 11:09 | PN ---
Date/Time of Note Date/Time of Note DATE: 12/08/16 TIME: 11:08 Assessment/Plan VTE Prophylaxis VTE Prophylaxis Intervention: LMWH Lines/Catheters IV Catheter Type (from Nrs): Saline Lock Urinary Cath still in place: Yes Reason Cath still needed: skin wounds contaminated by urine Assessment/Plan Chief Complaint/Hosp Course 1) pneumonia, sepsis - IV antibiotics 2) diabetes mellitus - monitor blood sugar 3) hypercholesterolemia - continue medications Problems: Subjective 24 Hr Interval Summary Free Text/Dictation Patient resting but easily arousable, she has no complaints Exam/Review of Systems Vital Signs Vitals Vital Signs Date Time Temp Pulse Resp B/P Pulse Ox O2 Delivery O2 Flow Rate FiO2 12/08/16 09:30 102 17 123/63 99 12/08/16 09:00 Room Air 12/08/16 08:50 21 12/08/16 08:00 97.9 12/06/16 08:11 1.0 Intake and Output 12/07/16 12/07/16 12/08/16 15:00 23:00 07:00 Intake Total 1232.49 ml 1050.00 ml 729.95 ml Output Total 210 ml 2150 ml 700 ml Balance 1022.49 ml -1100.00 ml 29.95 ml Exam Constitutional: well developed Head: atraumatic, normocephalic Neck: supple Cardiovascular: regular rate and rhythm Gastrointestinal: non-tender, soft Extremities: normal pulses Results Result Diagram: 12/07/16 0450 12/07/16 0450 Results 24 hrs Laboratory Tests Test 12/07/16 12:31 12/07/16 17:20 12/07/16 20:43 12/08/16 01:58 Bedside Glucose 118 143 100 122 Test 12/08/16 07:46 Bedside Glucose 207 Medications Medications Current Medications Ondansetron HCl (Zofran Inj) 4 mg Q6H PRN IV NAUSEA AND/OR VOMITING; Start 12/03 at 22:00 Acetaminophen (Tylenol Liquid) 650 mg Q6H PRN PO PAIN LEVEL 1-3 OR FEVER; Start 12/03/16 at 22:00 Morphine Sulfate (morphine) 2 mg Q4H PRN IV PAIN LEVEL 7-10; Start 12/03/16 at 22:00 Famotidine (Pepcid Iv) 20 mg Q12 IV Last administered on 12/08/16t 08:32; Admin Dose 20 MG; Start 12/04/16 at 09:00 Enoxaparin Sodium 30 mg 30 mg DAILY SC Last administered on 12/08/16 08:33; Admin Dose 30 MG; Start 12/04/16 at 09:00 Cefepime HCl (Maxipime 1gm/50 ml (Pmx)) 50 ml @ 100 mls/hr Q12 IVPB Last administered on 12/08/16 08:30; Admin Dose 100 MLS/HR; Start 12/04/16 at 09:00 Eye Lubricant (Akwa Oint) 1 applic TID BOTH EYES Last administered on 12/08/16 08:31; Admin Dose 1 APPLIC; Start 12/04/16 at 09:00 Bisacodyl (Dulcolax Supp) 10 mg Q24H PRN [place] PRN; Start 12/03/16 at 22:00 Docusate Sodium (Colace) 200 mg QHS PO Last administered on 12/07/16 21:04; Admin Dose 200 MG; Start 12/04/16 at 21:00 Acetaminophen/ Hydrocodone Bitart ([place] (10/325)) 1 tab Q6H PRN PO PAIN; Start 12/03/16 at 22:00 Insulin Glargine (Lantus) 25 unit QHS SC Last administered on 12/07/16 21:06; Admin Dose 25 UNIT; Start 12/04/16 at 21:00 Magnesium Hydroxide (Milk Of Mag) 30 ml Q24H PRN PO PRN; Start 12/03/16 at 22:00 Olanzapine (Zyprexa) 5 mg QHS PO Last administered on 12/07/16 21:05; Admin Dose 5 MG; Start 12/04/16 at 21:00 Potassium Chloride (Klor-Con 20) 20 meq DAILY PO Last administered on 12/08/16 08:31; Admin Dose 20 MEQ; Start 12/04/16 at 09:00 Sodium Biphosphate/ Sodium Phosphate (Fleet Enema Pediatric) 66.6 ml DAILY PRN [place] CONSTIPATION; Start 12/03/16 at 22:00 Latanoprost (Xalatan) 1 drop HS BOTH EYES Last administered on 12/07/16 21:04; Admin Dose 1 DROP; Start 12/03/16 at 23:00 Miscellaneous Information 1 ea NOTE XX ; Start 12/03/16 at 23:00 Glucose (Glutose) 15 gm Q15M PRN PO DECREASED GLUCOSE; Start 12/03/16 at 23:00 Glucose (Glutose) 22.5 gm Q15M PRN PO DECREASED GLUCOSE; Start 12/03/16 at 23:00 Dextrose (D50w Syringe) 25 ml Q15M PRN IV DECREASED GLUCOSE Last administered on 12/06/16 05:48; Admin Dose 25 ML; Start 12/03/16 at 23:00 Dextrose (D50w Syringe) 50 ml Q15M PRN IV DECREASED GLUCOSE; Start 12/03/16 at 23:00 Glucagon (Glucagen) 1 mg Q15M PRN IM DECREASED GLUCOSE; Start 12/03/16 at 23:00 Glucose 15 gm 15 gm Q15M PRN BUCCAL DECREASED GLUCOSE; Start 12/03/16 at 23:00 Norepinephrine 16 mg/Dextrose 500 ml @ 1.87 mls/hr TITRATE IV Last administered on 12/07/16 05:35; Admin Dose 3.75 MLS/HR; Start 12/04/16 at 07:30 Sodium Chloride (1/2 NS) 1,000 ml @ 100 mls/hr Q10H IV Last administered on 01:19; Admin Dose 100 MLS/HR; Start 12/04/16 at 12:30 Collagenase (Santyl) 1 applic DAILY TOP Last administered on 12/07/16 08:36; Admin Dose 1 APPLIC; Start 12/05/16 at 13:30 Collagenase (Santyl) 1 applic PRN PRN [place] .SOILING; Start 12/05/16 at 12:30 Diagnostic Test (Pha) (Accucheck) 1 ea 02 XX ; Start 12/07/16 at 02:00 VIVIENNE MONTILLA Dec 08, 2016 11:09
[2016-12-08] MEDS: COLLAGENASE 30 GM TUBE TOP SCH (11:33)
[2016-12-08] MEDS ORDERED: ALBUTEROL 0.5% (NEB) 2.5 MG/0.5 ML AMP NEB PRN (13:30)
[2016-12-08] MEDS: LATANOPROST 0.005% 2.5 ML OPH BOTH EYES SCH (21:27)
[2016-12-08] MEDS: DOCUSATE SODIUM 100 MG CAP PO SCH (21:28)
[2016-12-08] MEDS: OLANZAPINE 5 MG TAB PO SCH (21:28)
[2016-12-08] MEDS: INSULIN GLARGINE [LANtus] 3 ML PEN SC SCH (21:29)
[2016-12-09] VITALS (97 sets, daily range): BP systolic 73–129; BP diastolic 31–113; PULSE 66–118; RESP 11–22
[2016-12-09] MEDS: SOD CHLORIDE 0.45% 1,000 ML IV SCH ×2 (00:59→09:55)
[2016-12-09] MEDS: ACCUCHECK XX SCH (02:34)
[2016-12-09] MEDS: DEXTROSE 50% 50 ML SYRINGE IV PRN ×2 (07:23→17:30)
[2016-12-09] MEDS: INSULIN ASPART [NOVOLOG] 3 ML PEN SC SCH ×6 (07:35→20:54)
[2016-12-09] MEDS: OCULAR LUBRICANT 3.5 GM OPH OINT BOTH EYES SCH ×3 (08:38→20:51)
[2016-12-09] MEDS: COLLAGENASE 30 GM TUBE TOP SCH (08:38)
[2016-12-09] MEDS: POTASSIUM CHLORIDE (SR) 20 MEQ TAB PO SCH (08:38)
[2016-12-09] MEDS: CEFEPIME 1GM/50 ML (PMX) 50 ML IVPB SCH ×2 (08:38→20:50)
[2016-12-09] MEDS: FAMOTIDINE 20 MG INJ IV SCH ×2 (08:39→20:51)
[2016-12-09] MEDS: ENOXAPARIN 30 MG/0.3 ML SYG SC SCH (08:41)
--- NOTE | 2016-12-09 11:13 | PN ---
Date/Time of Note Date/Time of Note DATE: 12/09/16 TIME: 11:12 Assessment/Plan VTE Prophylaxis VTE Prophylaxis Intervention: LMWH Lines/Catheters IV Catheter Type (from Nrsg): Saline Lock Urinary Cath still in place: Yes Reason Cath still needed: skin wounds contaminated by urine Assessment/Plan Chief Complaint/Hosp Course 1) pneumonia, sepsis - IV antibiotics 2) diabetes mellitus - monitor blood sugar 3) hypercholesterolemia - continue medications Problems: Subjective 24 Hr Interval Summary Free Text/Dictation Patient is more awake but still on vasopressors Exam/Review of Systems Vital Signs Vitals Vital Signs Date Time Temp Pulse Resp B/P Pulse Ox O2 Delivery O2 Flow Rate FiO2 12/09/16 09:45 105 18 96/53 94 12/09/16 09:00 Room Air 12/09/16 08:00 98.6 12/08/16 16:19 21 12/06/16 08:11 1.0 Intake and Output 12/08/16 12/08/16 12/09/16 15:00 23:00 07:00 Intake Total 956.85 ml 899.68 ml 1016.86 ml Output Total 900 ml 775 ml 745 ml Balance 56.85 ml 124.68 ml 271.86 ml Exam Constitutional: well developed Head: atraumatic, normocephalic Neck: supple Respiratory: diminished breath sounds Cardiovascular: regular rate and rhythm Gastrointestinal: non-tender, soft Results Result Diagram: 12/07/16 0450 12/07/16 0450 Results 24 hrs Laboratory Tests Test 12/08/16 11:32 12/08/16 17:04 12/08/16 21:26 12/09/16 02:08 Bedside Glucose 96 96 185 94 Test 12/09/16 07:21 12/09/16 08:01 Bedside Glucose 24 *L 171 Medications Medications Current Medications Ondansetron HCl (Zofran Inj) 4 mg Q6H PRN IV NAUSEA AND/OR VOMITING; Start 12/03 at 22:00 Acetaminophen (Tylenol Liquid) 650 mg Q6H PRN PO PAIN LEVEL 1-3 OR FEVER; Start 12/03/16 at 22:00 Morphine Sulfate (morphine) 2 mg Q4H PRN IV PAIN LEVEL 7-10; Start 12/03/16 at 22:00 Famotidine (Pepcid Iv) 20 mg Q12 IV Last administered on 12/09/16 08:39; Admin Dose 20 MG; Start 12/04/16 at 09:00 Enoxaparin Sodium 30 mg 30 mg DAILY SC Last administered on 12/09/16 08:41; Admin Dose 30 MG; Start 12/04/16 at 09:00 Cefepime HCl (Maxipime 1gm/50 ml (Pmx)) 50 ml @ 100 mls/hr Q12 IVPB Last administered on 12/09/16 08:38; Admin Dose 100 MLS/HR; Start 12/04/16 at 09:00 Eye Lubricant (Akwa Oint) 1 applic TID BOTH EYES Last administered on 12/09/16 08:38; Admin Dose 1 APPLIC; Start 12/04/16 at 09:00 Bisacodyl (Dulcolax Supp) 10 mg Q24H PRN [place] PRN; Start 12/03/16 at 22:00 Docusate Sodium (Colace) 200 mg QHS PO Last administered on 12/08/16 21:28; Admin Dose 200 MG; Start 12/04/16 at 21:00 Acetaminophen/ Hydrocodone Bitart ([place] (10/325)) 1 tab Q6H PRN PO PAIN; Start 12/03/16 at 22:00 Insulin Glargine (Lantus) 25 unit QHS SC Last administered on 12/08/16 21:29; Admin Dose 25 UNIT; Start 12/04/16 at 21:00 Magnesium Hydroxide (Milk Of Mag) 30 ml Q24H PRN PO PRN; Start 12/03/16 at 22:00 Olanzapine (Zyprexa) 5 mg QHS PO Last administered on 12/08/16 21:28; Admin Dose 5 MG; Start 12/04/16 at 21:00 Potassium Chloride (Klor-Con 20) 20 meq DAILY PO Last administered on 12/09/16 08:38; Admin Dose 20 MEQ; Start 12/04/16 at 09:00 Sodium Biphosphate/ Sodium Phosphate (Fleet Enema Pediatric) 66.6 ml DAILY PRN [place] CONSTIPATION; Start 12/03/16 at 22:00 Latanoprost (Xalatan) 1 drop HS BOTH EYES Last administered on 12/08/16 21:27; Admin Dose 1 DROP; Start 12/03/16 at 23:00 Miscellaneous Information 1 ea NOTE XX ; Start 12/03/16 at 23:00 Glucose (Glutose) 15 gm Q15M PRN PO DECREASED GLUCOSE; Start 12/03/16 at 23:00 Glucose (Glutose) 22.5 gm Q15M PRN PO DECREASED GLUCOSE; Start 12/03/16 at 23:00 Dextrose (D50w Syringe) 25 ml Q15M PRN IV DECREASED GLUCOSE Last administered on 12/09/16 07:23; Admin Dose 25 ML; Start 12/03/16 at 23:00 Dextrose (D50w Syringe) 50 ml Q15M PRN IV DECREASED GLUCOSE; Start 12/03/16 at 23:00 Glucagon (Glucagen) 1 mg Q15M PRN IM DECREASED GLUCOSE; Start 12/03/16 at 23:00 Glucose 15 gm 15 gm Q15M PRN BUCCAL DECREASED GLUCOSE; Start 12/03/16 at 23:00 Norepinephrine 16 mg/Dextrose 500 ml @ 1.87 mls/hr TITRATE IV Last administered on 12/07/16 05:35; Admin Dose 3.75 MLS/HR; Start 12/04/16 at 07:30 Sodium Chloride (1/2 NS) 1,000 ml @ 100 mls/hr Q10H IV Last administered on 09:55; Admin Dose 100 MLS/HR; Start 12/04/16 at 12:30 Collagenase (Santyl) 1 applic DAILY TOP Last administered on 12/09/16 08:38; Admin Dose 1 APPLIC; Start 12/05/16 at 13:30 Collagenase (Santyl) 1 applic PRN PRN [place] .SOILING; Start 12/05/16 at 12:30 Diagnostic Test (Pha) (Accucheck) 1 ea 02 XX Last administered on 12/09/16 02: 34; Admin Dose 1 EA; Start 12/07/16 at 02:00 VIVIENNE MONTILLA Dec 09, 2016 11:12
[2016-12-09] MEDS: DEXTROSE 5%-0.45% NACL 1,000 ML IV SCH (18:35)
[2016-12-09] MEDS: OLANZAPINE 5 MG TAB PO SCH (20:50)
[2016-12-09] MEDS: DOCUSATE SODIUM 100 MG CAP PO SCH (20:51)
[2016-12-09] MEDS: LATANOPROST 0.005% 2.5 ML OPH BOTH EYES SCH (20:51)
[2016-12-09] MEDS: INSULIN GLARGINE [LANtus] 3 ML PEN SC SCH (22:14)
[2016-12-10] VITALS (91 sets, daily range): BP systolic 72–145; BP diastolic 33–105; PULSE 57–128; RESP 11–21
[2016-12-10] MEDS: ACCUCHECK XX SCH (02:00)
[2016-12-10] MEDS: DEXTROSE 5%-0.45% NACL 1,000 ML IV SCH ×3 (05:08→16:23)
[2016-12-10 05:14] LABS: BASOPHILS % 0.5 % (0.0-2.0); EOSINOPHILS # 0.2 10^3/ul (0.0-0.5); HEMATOCRIT 27.9 % (37.0-47.0); HEMOGLOBIN 9.5 g/dl (12.0-16.0); LYMPHOCYTES # 3.6 10^3/ul (0.8-2.9); LYMPHOCYTES % 62.2 % (15.0-51.0); MEAN CORPUSCULAR HEMOGLOBIN 33.6 pg (29.0-33.0); MEAN CORPUSCULAR HGB CONC 33.9 g/dl (32.0-37.0); MEAN PLATELET VOLUME 7.9 fl (7.4-10.4); MONOCYTE # 0.6 10^3/ul (0.3-0.9); MONOCYTES % 11.3 % (0.0-11.0); NEUTROPHIL # 1.3 10^3/ul (1.6-7.5); PLATELET COUNT 241 10^3/UL (140-440); RED BLOOD COUNT 2.82 10^6/ul (4.20-5.40); RED CELL DISTRIBUTION WIDTH 14.1 % (11.5-14.5); UNCORRECTED WBC 5.7 10^3/ul (4.8-10.8); WHITE BLOOD COUNT 5.7 10^3/ul (4.8-10.8)
[2016-12-10 05:31] LABS: CONDITION 1; LH ANALYZER COMMENTS 1
[2016-12-10 05:43] LABS: CREATININE 0.46 mg/dl (0.44-1.00)
[2016-12-10 05:44] LABS: CALCIUM 7.7 mg/dl (8.4-10.2)
[2016-12-10 05:50] LABS: POTASSIUM 2.9 mmol/L (3.5-5.1)
[2016-12-10] MEDS: INSULIN ASPART [NOVOLOG] 3 ML PEN SC SCH ×5 (07:35→20:59)
[2016-12-10] MEDS: DEXTROSE 50% 50 ML SYRINGE IV PRN (07:38)
[2016-12-10] MEDS: POTASSIUM CHLORIDE (SR) 20 MEQ TAB PO SCH ×3 (07:40→11:26)
[2016-12-10] MEDS: FAMOTIDINE 20 MG INJ IV SCH ×2 (08:27→21:00)
[2016-12-10] MEDS: COLLAGENASE 30 GM TUBE TOP SCH (08:27)
[2016-12-10] MEDS: OCULAR LUBRICANT 3.5 GM OPH OINT BOTH EYES SCH ×3 (08:28→20:53)
[2016-12-10] MEDS: ENOXAPARIN 30 MG/0.3 ML SYG SC SCH (08:32)
[2016-12-10] MEDS: CEFEPIME 1GM/50 ML (PMX) 50 ML IVPB SCH ×2 (09:00→20:59)
[2016-12-10] MEDS ORDERED: LIDOCAINE 1% (MDV) 20 ML INJ SC ONE (14:00)
--- NOTE | 2016-12-10 17:23 | CONS ---
DATE OF ADMISSION: 12/03/2016 DATE OF CONSULTATION: 12/10/2016 TYPE OF CONSULTATION: Infectious Disease. REASON FOR CONSULTATION: Antibiotic management. HISTORY OF PRESENT ILLNESS: Lynne Cohen is a 56-year-old female who comes in with multiple pro blems and is being seen for antibiotic management. Her past problems include: 1. Adult-onset diabetes mellitus. 2. Dementia. 3. Hypercholesterolemia. 4. Seizure disorder. 5. Coronary artery disease. 6. Shortness of breath. Acutely the patient comes in with shortness of breath, evidence of severe sepsis and was admitted to the ICU. On admission, her white count was 11.0, H and H of 13.9 and 42, platelet count of 255,000 . BUN and creatinine were 42 over 1.13, glucose of 279. PAST MEDICAL HISTORY: Operations as outlined. FAMILY HISTORY: Noncontributory. SOCIAL HISTORY: She does not smoke, drink or abuse drugs. ALLERGIES: NONE TO PENICILLIN, SULFA OR FOODS. MEDICATIONS: Per chart. REVIEW OF SYSTEMS: As per HPI. PHYSICAL EXAMINATION: GENERAL: The patient is a rather frail white female who is awake but confused, in no acute distress . VITAL SIGNS: Stable. She is afebrile. SKIN: Without generalized rash. HEENT: Within normal limits. NECK: Supple. LYMPH NODES: None palpable. CHEST: Decreased breath sounds at the bases. HEART: Without murmur or gallop. ABDOMEN: Soft, nontender without organosplenomegaly or masses. EXTREMITIES: Without cyanosis, clubbing or edema. RECTAL AND GENITAL: Deferred. NEUROLOGIC: No focal neurological abnormalities. HOSPITAL COURSE: On the , her white count was 6.0, blood cultures were negative. Urine grew out E coli ESBL, and she was placed on cefepime. Chest x-ray also shows some left basilar pneumonia, o therwise normal chest x-ray. A CT scan of the brain shows possible hydrocephalus, mild atrophy, no intracranial hemorrhage, otherwise unremarkable. IMPRESSION AND PLAN: The patient comes in with severe sepsis secondary to urinary tract infection w ith extended-spectrum beta-lactamase and also has pneumonitis. She is chronically ill. We are jim g to continue her on cefepime for the time being until we eradicate this infection. I will dictate my findings to Dr. Aly. I want to thank him for asking us to see this abdelrahman la floresita in consultation. Dictated By: ALISSA SALDIVAR MD, JD/RUSTY Conf#: [id number] DID#: [id number]
--- NOTE | 2016-12-10 17:24 | PN ---
DATE: 12/10/2016 Follow up on 56-year-old female with pneumonia and a urinary tract infection. SUBJECTIVE: Patient with bipolar disorder, schizophrenia. The patient currently is awake, alert, c omfortable on room air. Patient is continues to be on Levophed for blood pressure support, unable t o be weaned off pressor. Continue low dose of Levophed. OBJECTIVE: VITAL SIGNS: Temperature is 98.5, pulse is 96, blood pressure 110/63, respiratory rate 15, oxygen s aturation 98% on room air. GENERAL: Well-developed, well-nourished female currently awake, alert. HEENT: Head is atraumatic, normocephalic. PERRLA. NECK: Supple. No mass, no thyromegaly. LUNGS: Clear bilaterally, slightly diminished at the bases. ABDOMEN: Round, soft, nondistended, nontender. Bowel sounds present. EXTREMITIES: No edema, clubbing, cyanosis. SKIN: There is no rash noted. NEUROLOGIC: The patient is alert and oriented to name and situation. LABORATORY DATA: Today CBC: White blood cells 5.7, hemoglobin 9.5, hematocrit 27.9, platelets 241. ASSESSMENT AND PLAN: 1. Left basilar pneumonia. Continue cefepime. 2. Sepsis secondary to pneumonia and urinary tract infection. Will ask Dr. Coffman to see patient i n infectious disease consultation. Continue pressors and IV fluids and ICU care. 3. Escherichia coli extended-spectrum beta-lactamase urinary tract infection. Continue cefepime fo r now. Monitor urinary output. 4. Diabetes mellitus type 2. Continue NovoLog per moderate algorithm sliding scale and Lantus. 2. History of schizophrenia and bipolar disorder. Continue patient on Zyprexa. 3. Bilateral lower extremity wound. Continue Santyl and local wound care. 4. Will continue Pepcid for peptic ulcer disease prophylaxis and Lovenox for deep venous thrombosis prophylaxis. 5. Continue breathing treatment. 6. Further recommendations based on clinical course. Plan of care discussed with Dr. Aly. Dictated By: DENA SALGUERO CLAIMS COLLECTOR for LUZMA ALY MD SR/NTS Conf#: [id number] DID#: [id number]
--- NOTE | 2016-12-10 17:56 | RADRPT ---
PROCEDURE: Ultrasound guidance for placement of needle in right upper extremity vein. CLINICAL INDICATION: Venous access. TECHNIQUE: Limited sonography of the right upper extremity was performed. Ultrasound images were recorded and stored in the patient's medical record. COMPARISON: None. FINDINGS: The ultrasound images demonstrate a patent right upper extremity vein. The PICC line was inserted b y the PICC line nurse. IMPRESSION: 1. Ultrasound guidance for a needle placement in a right upper extremity vein. 2. The visualized right upper extremity vein is patent. RPTAT: QQ .Adarsh Anna MD, MD Date Time Electronically viewed and signed by .Adarsh Anna MD, MD on 12/10/2016 17:56 .R/
--- NOTE | 2016-12-10 17:57 | RADRPT ---
PROCEDURE: XR Chest. CLINICAL INDICATION: Check PICC line position. TECHNIQUE: Single frontal view. COMPARISON: 12/03/2016. FINDINGS: There is a right arm PICC line with the tip in the lower superior vena cava. There is mild left bas ilar pneumonia, improved. The lungs are otherwise clear. The heart size is normal. There is no pleural effusion. There is no pneumothorax. IMPRESSION: 1. Satisfactory position of right arm PICC line. 2. Mild left basilar pneumonia, improved. 3. Otherwise normal chest radiograph. RPTAT: QQ .Adarsh Anna MD, MD Date Time Electronically viewed and signed by .Adarsh Anna MD, MD on 12/10/2016 17:57 .R/
[2016-12-10] MEDS: DOCUSATE SODIUM 100 MG CAP PO SCH (20:44)
[2016-12-10] MEDS: OLANZAPINE 5 MG TAB PO SCH (20:44)
[2016-12-10] MEDS: LATANOPROST 0.005% 2.5 ML OPH BOTH EYES SCH (20:47)
[2016-12-10] MEDS ORDERED: INSULIN GLARGINE [LANtus] 3 ML PEN SC SCH (21:00)
[2016-12-11] VITALS (60 sets, daily range): BP systolic 77–166; BP diastolic 36–95; PULSE 85–150; RESP 0–25
[2016-12-11] MEDS: ACCUCHECK XX SCH (01:23)
[2016-12-11] MEDS: DEXTROSE 50% 50 ML SYRINGE IV PRN ×5 (01:26→17:40)
[2016-12-11] MEDS: DEXTROSE 5%-0.45% NACL 1,000 ML IV SCH ×2 (02:35→18:50)
[2016-12-11] MEDS ORDERED: SOD CHLORIDE 0.9% 500 ML IV ONE ×3 (04:30→16:30)
[2016-12-11] MEDS ORDERED: DILTIAZEM 25 MG INJ IV ONE (05:00)
[2016-12-11] MEDS ORDERED: SOD CHLORIDE 0.9% 1,000 ML IV ONE (05:00)
[2016-12-11 05:14] LABS: BASOPHILS % 0.5 % (0.0-2.0); EOSINOPHILS # 0.2 10^3/ul (0.0-0.5); EOSINOPHILS % 3.1 % (0.0-7.0); HEMATOCRIT 30.1 % (37.0-47.0); HEMOGLOBIN 10.2 g/dl (12.0-16.0); LYMPHOCYTES # 3.6 10^3/ul (0.8-2.9); LYMPHOCYTES % 51.8 % (15.0-51.0); MEAN CORPUSCULAR HEMOGLOBIN 33.6 pg (29.0-33.0); MEAN CORPUSCULAR HGB CONC 33.9 g/dl (32.0-37.0); MEAN CORPUSCULAR VOLUME 99.1 fl (82.0-101.0); MEAN PLATELET VOLUME 7.7 fl (7.4-10.4); MONOCYTES % 14.8 % (0.0-11.0); NEUTROPHILS % 29.8 % (39.0-77.0); PLATELET COUNT 304 10^3/UL (140-440); RED BLOOD COUNT 3.04 10^6/ul (4.20-5.40); RED CELL DISTRIBUTION WIDTH 14.6 % (11.5-14.5); UNCORRECTED WBC 6.9 10^3/ul (4.8-10.8); WHITE BLOOD COUNT 6.9 10^3/ul (4.8-10.8)
[2016-12-11 05:30] LABS: POTASSIUM 4.3 mmol/L (3.5-5.1)
[2016-12-11 05:33] LABS: CREATININE 0.53 mg/dl (0.44-1.00)
[2016-12-11 05:34] LABS: CALCIUM 8.4 mg/dl (8.4-10.2)
[2016-12-11 05:36] LABS: CONDITION 1; LH ANALYZER COMMENTS 1
[2016-12-11 05:57] LABS: THYROID STIMULATING HORMONE 2.6 MIU/L (0.465-4.680)
[2016-12-11 06:02] LABS: MAGNESIUM 1.3 mg/dl (1.7-2.5); PHOSPHORUS 3.1 mg/dl (2.5-4.9)
[2016-12-11] MEDS: INSULIN ASPART [NOVOLOG] 3 ML PEN SC SCH ×4 (07:35→20:42)
[2016-12-11] MEDS: CEFEPIME 1GM/50 ML (PMX) 50 ML IVPB SCH ×2 (08:17→08:35)
[2016-12-11] MEDS: OCULAR LUBRICANT 3.5 GM OPH OINT BOTH EYES SCH ×3 (08:17→20:38)
[2016-12-11] MEDS: COLLAGENASE 30 GM TUBE TOP SCH (08:23)
[2016-12-11] MEDS: FAMOTIDINE 20 MG INJ IV SCH ×2 (08:28→20:36)
[2016-12-11] MEDS: POTASSIUM CHLORIDE (SR) 20 MEQ TAB PO SCH (08:29)
[2016-12-11] MEDS ORDERED: MAGNESIUM SULFATE 2 GM/50 ML 50 ML IVPB ONE (08:30)
[2016-12-11] MEDS: ENOXAPARIN 30 MG/0.3 ML SYG SC SCH (08:35)
--- NOTE | 2016-12-11 09:18 | RADRPT ---
PROCEDURE: XR Chest. CLINICAL INDICATION: Tachycardia TECHNIQUE: Single portable view of the chest was obtained COMPARISON: Yesterday FINDINGS: The heart, lungs and mediastinum are unchanged. The heart is normal in size. There is a mild left l ower lobe infiltrate. There is a right-sided PICC line with its tip overlying the cavoatrial juncti on. There is no pleural effusion or pneumothorax.. RPTAT: AA IMPRESSION: No significant change. Mild left lower lobe infiltrate. .Porfirio Banuelos MD, MD Date Time Electronically viewed and signed by .Porfirio Banuelos MD, MD on 12/11/2016 09:17 .S/
[2016-12-11] MEDS ORDERED: VANCOMYCIN IV PER PHARMACY XX SCH (12:00)
[2016-12-11] MEDS ORDERED: VANCOMYCIN 1.25 GM in SOD CHLORIDE 0.9% 250 ML IVPB ONE (13:00)
--- NOTE | 2016-12-11 13:31 | PN ---
DATE: 12/11/2016 INFECTIOUS DISEASE PROGRESS NOTE SUBJECTIVE: The patient became tachycardic this morning, did not respond to Cardizem shot. She is getting fluid bolus. She is weak but arousable and follows simple commands. The patient knows wher e she is. No fevers. VITAL SIGNS: Temperature 97.8, pulse 117, respirations 20, blood pressure 99/36, saturation 98 on r oom air. LABORATORY DATA: WBC 6.9, H and H 10.2 and 30.1, platelets 304, neutrophils 29.8. BUN 2, creatinin e 0.53. MICROBIOLOGY: Urine culture on admission December 03 grew E coli ESBL. Blood cultures have been ne gative. DIAGNOSTICS: Chest x-ray this morning revealed mild left lower lobe infiltrate. INDWELLINGS: The patient has a PICC line placed yesterday at her right upper extremity and [place]s ca theter. ANTIMICROBIALS: She is on IV Cefepime day #8. PHYSICAL EXAMINATION: GENERAL: This is a fragile, middle-aged white woman who is lying comfortably in bed. HEENT: Head atraumatic, normocephalic. Sclerae anicteric. Buccal mucosa dry. NECK: Supple, trachea midline. CHEST: Rise symmetrical. Breath sounds diminished to bases. HEART: S1, S2. ABDOMEN: Soft. Bowel sounds hypoactive. EXTREMITIES: Without cyanosis. SKIN: No jaundice, no cyanosis. Bilateral lower extremities trace edema and positive for anasarca. ASSESSMENT: 1. Sepsis, status post shock. 2. Escherichia coli extended-spectrum beta-lactamase urinary tract infection. 3. Pneumonia, possibly aspiration. 4. Seizure disorder. 5. Diabetes. 6. History of dementia. PLAN: We are going to start patient on IV vancomycin. Repeat cultures. Continue cefepime, anti-as piration measures, cardiology recommendations. Dictated By: MELODIE RAMIREZ PRODUCE CLERK for ALISSA LOWE/RUSTY Conf#: [id number] DID#: [id number]
[2016-12-11] MEDS ORDERED: SOD CHLORIDE 0.9% 1,000 ML IV SCH (14:30)
--- NOTE | 2016-12-11 14:39 | PN ---
Date/Time of Note Date/Time of Note DATE: 12/11/16 TIME: 14:32 Assessment/Plan VTE Prophylaxis VTE Prophylaxis Intervention: SCD's Lines/Catheters IV [facility] Type (from [facility]): PICC Line Central line still needed: Yes Urinary Cath still in place: Yes Reason Cath still needed: urinary retention Assessment/Plan Chief Complaint/Hosp Course ASSESSMENT AND PLAN: 1. Left basilar pneumonia. Continue cefepime and Vanco. 2. Sepsis secondary to pneumonia and urinary tract infection. Dr. Coffman is following patient in infectious disease consultation. Continue IV fluids and ICU care. 3. Escherichia coli extended-spectrum beta-lactamase urinary tract infection. Continue cefepime for now. Monitor urinary output. 4. Diabetes mellitus type 2. Continue NovoLog per moderate algorithm sliding scale and Lantus. 5. History of schizophrenia and bipolar disorder. Continue patient on Zyprexa. 6. Bilateral lower extremity wound. Continue Santyl and local wound care. 7. Cardiology consult Dr Coronel for tachycardia, pending 2D Echo. Continue Pepcid for peptic ulcer disease prophylaxis and Lovenox for deep venous thrombosis prophylaxis. Further recommendations based on clinical course. Plan of care discussed with Dr. Aly. Problems: Subjective 24 Hr Interval Summary Free Text/Dictation Patient weaned off pressors overnight, BP borderline, episode of tachycardia last night, patient resting comfortable now. Exam/Review of Systems Vital Signs Vitals Vital Signs Date Time Temp Pulse Resp B/P Pulse Ox O2 Delivery O2 Flow Rate FiO2 12/11/16 14:00 91 18 84/44 95 Room Air 12/11/16 08:00 97.8 12/10/16 22:00 21 Intake and Output 12/10/16 12/10/16 12/11/16 14:59 22:59 06:59 Intake Total 883.74 ml 824.32 ml 2300 ml Output Total 475 ml 650 ml 740 ml Balance 408.74 ml 174.32 ml 1560 ml Exam GENERAL: Well-developed, well-nourished female currently awake, alert. HEENT: Head is atraumatic, normocephalic. PERRLA. NECK: Supple. No mass, no thyromegaly. LUNGS: Clear bilaterally, slightly diminished at the bases. ABDOMEN: Round, soft, nondistended, nontender. Bowel sounds present. EXTREMITIES: No edema, clubbing, cyanosis. SKIN: There is no rash noted. NEUROLOGIC: The patient is alert and oriented to name and situation. Results Result Diagram: 12/11/16 0415 12/11/16 0415 Results 24 hrs Laboratory Tests Test 12/10/16 14:47 12/10/16 17:17 12/10/16 20:42 12/11/16 01:21 Bedside Glucose 95 105 114 65 L Test 12/11/16 01:47 12/11/16 04:00 12/11/16 04:15 12/11/16 04:23 Bedside Glucose 161 58 L Free Thyroxine 0.87 Hemoglobin A1c 8.2 H Magnesium Level 1.3 L Phosphorus Level 3.1 Thyroid Stimulating Hormone (TSH) 2.600 Thyroxine (T4) 10.0 Anion Gap 14 Basophils # 0.0 Basophils % 0.5 Blood Morphology Comment Blood Urea Nitrogen 2 L Calcium Level 8.4 Carbon Dioxide Level 29 Chloride Level 103 Creatinine 0.53 Eosinophils # 0.2 Eosinophils % 3.1 Glucose Level 60 #L Hematocrit 30.1 L Hemoglobin 10.2 L Lymphocytes # 3.6 H Lymphocytes % 51.8 H Mean Corpuscular Hemoglobin 33.6 H Mean Corpuscular Hemoglobin Concent 33.9 Mean Corpuscular Volume 99.1 Mean Platelet Volume 7.7 Monocytes # 1.0 H Monocytes % 14.8 H Neutrophils # 2.0 Neutrophils % 29.8 L Nucleated Red Blood Cells # 0.0 Nucleated Red Blood Cells % 0.0 Platelet Count 304 # Potassium Level 4.3 Red Blood Count 3.04 L Red Cell Distribution Width 14.6 H Sodium Level 142 White Blood Count 6.9 # Test 12/11/16 04:49 12/11/16 08:09 12/11/16 08:46 12/11/16 11:07 Bedside Glucose 108 52 L 105 97 Medications Medications Current Medications Ondansetron HCl (Zofran Inj) 4 mg Q6H PRN IV NAUSEA AND/OR VOMITING; Start 12/03 at 22:00 Acetaminophen (Tylenol Liquid) 650 mg Q6H PRN PO PAIN LEVEL 1-3 OR FEVER; Start 12/03/16 at 22:00 Morphine Sulfate (morphine) 2 mg Q4H PRN IV PAIN LEVEL 7-10; Start 12/03/16 at 22:00 Famotidine (Pepcid Iv) 20 mg Q12 IV Last administered on 12/11/16 08:28; Admin Dose 20 MG; Start 12/04/16 at 09:00 Enoxaparin Sodium 30 mg 30 mg DAILY SC Last administered on 12/11/16 08:35; Admin Dose 30 MG; Start 12/04/16 at 09:00 Cefepime HCl (Maxipime 1gm/50 ml (Pmx)) 50 ml @ 100 mls/hr Q12 IVPB Last administered on 12/11/16 08:35; Admin Dose 100 MLS/HR; Start 12/04/16 at 09:00 Eye Lubricant (Akwa Oint) 1 applic TID BOTH EYES Last administered on 08:17; Admin Dose 1 APPLIC; Start 12/04/16 at 09:00 Bisacodyl (Dulcolax Supp) 10 mg Q24H PRN [place] PRN; Start 12/03/16 at 22:00 Docusate Sodium (Colace) 200 mg QHS PO Last administered on 12/10/16 20:44; Admin Dose 200 MG; Start 12/04/16 at 21:00 Acetaminophen/ Hydrocodone Bitart ([place] (10/325)) 1 tab Q6H PRN PO PAIN; Start 12/03/16 at 22:00 Magnesium Hydroxide (Milk Of Mag) 30 ml Q24H PRN PO PRN; Start 12/03/16 at 22:00 Olanzapine (Zyprexa) 5 mg QHS PO Last administered on 12/10/16 20:44; Admin Dose 5 MG; Start 12/04/16 at 21:00 Potassium Chloride (Klor-Con 20) 20 meq DAILY PO Last administered on 08:29; Admin Dose 20 MEQ; Start 12/04/16 at 09:00 Sodium Biphosphate/ Sodium Phosphate (Fleet Enema Pediatric) 66.6 ml DAILY PRN [place] CONSTIPATION; Start 12/03/16 at 22:00 Latanoprost (Xalatan) 1 drop HS BOTH EYES Last administered on 12/10/16 20:47; Admin Dose 1 DROP; Start 12/03/16 at 23:00 Miscellaneous Information 1 ea NOTE XX ; Start 12/03/16 at 23:00 Glucose (Glutose) 15 gm Q15M PRN PO DECREASED GLUCOSE; Start 12/03/16 at 23:00 Glucose (Glutose) 22.5 gm Q15M PRN PO DECREASED GLUCOSE; Start 12/03/16 at 23:00 Dextrose (D50w Syringe) 25 ml Q15M PRN IV DECREASED GLUCOSE Last administered on 12/11/16 08:13; Admin Dose 25 ML; Start 12/03/16 at 23:00 Dextrose (D50w Syringe) 50 ml Q15M PRN IV DECREASED GLUCOSE; Start 12/03/16 at 23:00 Glucagon (Glucagen) 1 mg Q15M PRN IM DECREASED GLUCOSE; Start 12/03/16 at 23:00 Glucose 15 gm 15 gm Q15M PRN BUCCAL DECREASED GLUCOSE; Start 12/03/16 at 23:00 Norepinephrine/ Dextrose (Levophed/D5W) 500 ml @ 1.87 mls/hr TITRATE IV Last administered on 12/10/16 05:26; Admin Dose 11.25 MLS/HR; Start 12/04/16 at 07:30 Collagenase (Santyl) 1 applic DAILY TOP Last administered on 12/11/16 08:23; Admin Dose 1 APPLIC; Start 12/05/16 at 13:30 Collagenase (Santyl) 1 applic PRN PRN TOP .SOILING; Start 12/05/16 at 12:30 Diagnostic Test (Pha) (Accucheck) 1 ea 02 XX Last administered on 12/11/16 01: 23; Admin Dose 1 EA; Start 12/07/16 at 02:00 IV Flush 10 ml 10 ml PRN PRN IV IV PROTOCOL; Start 12/10/16 at 18:00 Vancomycin HCl 1.25 gm/Sodium Chloride 250 ml @ 83.333 mls/ hr ONCE ONCE IVPB ; Start 12/11/16 at 13:00; Stop 12/11/16 at 15:59 Vancomycin HCl 250 ml @ 125 mls/hr Q12H IVPB ; Start 12/12/16 at 02:00 Sodium Chloride 1,000 ml @ 100 mls/hr Q10H IV ; Start 12/11/16 at 14:30 Sodium Chloride (NS) 500 ml @ 500 mls/hr Q1H ONCE IV ; Start 12/11/16 at 14:30 ; Stop 12/11/16 at 15:29 DENA SALGUERO Dec 11, 2016 14:38
[2016-12-11] MEDS ORDERED: PHENYLephrine 20MG IN 250 ML 250 ML IV SCH (18:30)
[2016-12-11] MEDS: DOCUSATE SODIUM 100 MG CAP PO SCH (20:36)
[2016-12-11] MEDS: LATANOPROST 0.005% 2.5 ML OPH BOTH EYES SCH (20:37)
[2016-12-11] MEDS: OLANZAPINE 5 MG TAB PO SCH (20:37)
[2016-12-11] MEDS ORDERED: INSULIN GLARGINE [LANtus] 3 ML PEN SC SCH (21:00)
--- NOTE | 2016-12-11 22:05 | CONS ---
Date/Time of Note Date/Time of Note DATE: 12/11/16 TIME: 21:57 Assessment/Plan Assessment/Plan Additional Assessment/Plan Severe sepsis Sinus tachycardia Hypotension, improved Psychiatric disorder -Patient's tachycardia likely secondary to severe sepsis. Heart rates haven't improved after IV fluid boluses. She is currently off IV pressors. Would continue IV fluids as long as respiratory status remained stable. Check echocardiogram. Antibiotics as per infectious disease colleagues. Would hold off on any antihypertensives at the current time. Consultation Date/Type/Reason Admit Date/Time Dec 03, 2016 at 22:01 Type of Consultation: cv Reason for Consultation Tachycardia and hypotension Hx of Present Illness This is a 56-year-old female from nursing facility who came to the hospital secondary to change in mental status, hypotension. Patient found to be septic with UTI and possible pneumonia. Patient was hypotensive on IV pressors. Patient with sinus tachycardia noted and for this reason cardiology consultation was requested. And discussion with nursing staff, tachycardia improved after IV fluid bolus. Patient unable to give history and history obtained from staff, medical chart and records. She is currently off IV pressors and has been on broad-spectrum antibiotics. Unable to be performed at the current time given patient unable to give history Psychological: nl mood/affect, no complaints Past Medical History Psychiatric disorder Medical History: diabetes, high cholesterol Past Surgical History Unknown Family History Significant Family History: other (unknown) Social History Unknown Smoking Status: Never smoker Other Social History From [facility] Exam/Review of Systems Vital Signs Vitals Vital Signs Date Time Temp Pulse Resp B/P Pulse Ox O2 Delivery O2 Flow Rate FiO2 12/11/16 18:45 121 11 126/80 99 Room Air 12/11/16 08:00 97.8 12/10/16 22:00 21 Intake and Output 12/10/16 12/10/16 12/11/16 15:00 23:00 07:00 Intake Total 881.87 ml 820.57 ml 2300 ml Output Total 495 ml 625 ml 995 ml Balance 386.87 ml 195.57 ml 1305 ml Exam Sleeping but arousable, no apparent distress Head: normocephalic Neck: supple Respiratory: other (course breath sounds bilaterally, no wheezing) Cardiovascular: other (S1 and S2 heard), regular rate and rhythm Gastrointestinal: bowel sounds, non-tender, other (no guarding), soft Extremities: edema Results Result Diagram: 12/11/16 0415 12/11/16 1745 Results 24 hrs Laboratory Tests Test 12/11/16 01:21 12/11/16 01:47 12/11/16 04:00 12/11/16 04:15 Bedside Glucose 65 L 161 Free Thyroxine 0.87 Hemoglobin A1c 8.2 H Magnesium Level 1.3 L Phosphorus Level 3.1 Thyroid Stimulating Hormone (TSH) 2.600 Thyroxine (T4) 10.0 Anion Gap 14 Basophils # 0.0 Basophils % 0.5 Blood Morphology Comment Blood Urea Nitrogen 2 L Calcium Level 8.4 Carbon Dioxide Level 29 Chloride Level 103 Creatinine 0.53 Eosinophils # 0.2 Eosinophils % 3.1 Glucose Level 60 #L Hematocrit 30.1 L Hemoglobin 10.2 L Lymphocytes # 3.6 H Lymphocytes % 51.8 H Mean Corpuscular Hemoglobin 33.6 H Mean Corpuscular Hemoglobin Concent 33.9 Mean Corpuscular Volume 99.1 Mean Platelet Volume 7.7 Monocytes # 1.0 H Monocytes % 14.8 H Neutrophils # 2.0 Neutrophils % 29.8 L Nucleated Red Blood Cells # 0.0 Nucleated Red Blood Cells % 0.0 Platelet Count 304 # Potassium Level 4.3 Red Blood Count 3.04 L Red Cell Distribution Width 14.6 H Sodium Level 142 White Blood Count 6.9 # Test 12/11/16 04:23 12/11/16 04:49 12/11/16 08:09 12/11/16 08:46 Bedside Glucose 58 L 108 52 L 105 Test 12/11/16 11:07 12/11/16 17:29 12/11/16 17:43 12/11/16 17:45 Bedside Glucose 97 33 *L 113 Glucose Level 96 Test 12/11/16 18:00 12/11/16 20:35 Bedside Glucose 138 111 Medications Medications Current Medications Ondansetron HCl (Zofran Inj) 4 mg Q6H PRN IV NAUSEA AND/OR VOMITING; Start 12/03 at 22:00 Acetaminophen (Tylenol Liquid) 650 mg Q6H PRN PO PAIN LEVEL 1-3 OR FEVER; Start 12/03/16 at 22:00 Morphine Sulfate (morphine) 2 mg Q4H PRN IV PAIN LEVEL 7-10; Start 12/03/16 at 22:00 Famotidine (Pepcid Iv) 20 mg Q12 IV Last administered on 12/11/16 20:36; Admin Dose 20 MG; Start 12/04/16 at 09:00 Enoxaparin Sodium 30 mg 30 mg DAILY SC Last administered on 12/11/16 08:35; Admin Dose 30 MG; Start 12/04/16 at 09:00 Cefepime HCl (Maxipime 1gm/50 ml (Pmx)) 50 ml @ 100 mls/hr Q12 IVPB Last administered on 12/11/16 08:35; Admin Dose 100 MLS/HR; Start 12/04/16 at 09:00 Eye Lubricant (Akwa Oint) 1 applic TID BOTH EYES Last administered on 20:38; Admin Dose 1 APPLIC; Start 12/04/16 at 09:00 Bisacodyl (Dulcolax Supp) 10 mg Q24H PRN [place] PRN; Start 12/03/16 at 22:00 Docusate Sodium (Colace) 200 mg QHS PO Last administered on 12/11/16 20:36; Admin Dose 200 MG; Start 12/04/16 at 21:00 Acetaminophen/ Hydrocodone Bitart ([place] (10/325)) 1 tab Q6H PRN PO PAIN; Start 12/03/16 at 22:00 Magnesium Hydroxide (Milk Of Mag) 30 ml Q24H PRN PO PRN; Start 12/03/16 at 22:00 Olanzapine (Zyprexa) 5 mg QHS PO Last administered on 12/11/16 20:37; Admin Dose 5 MG; Start 12/04/16 at 21:00 Potassium Chloride (Klor-Con 20) 20 meq DAILY PO Last administered on 08:29; Admin Dose 20 MEQ; Start 12/04/16 at 09:00 Sodium Biphosphate/ Sodium Phosphate (Fleet Enema Pediatric) 66.6 ml DAILY PRN [place] CONSTIPATION; Start 12/03/16 at 22:00 Latanoprost (Xalatan) 1 drop HS BOTH EYES Last administered on 12/11/16 20:37 ; Admin Dose 1 DROP; Start 12/03/16 at 23:00 Miscellaneous Information 1 ea NOTE XX ; Start 12/03/16 at 23:00 Glucose (Glutose) 15 gm Q15M PRN PO DECREASED GLUCOSE; Start 12/03/16 at 23:00 Glucose (Glutose) 22.5 gm Q15M PRN PO DECREASED GLUCOSE; Start 12/03/16 at 23:00 Dextrose (D50w Syringe) 25 ml Q15M PRN IV DECREASED GLUCOSE Last administered on 12/11/16 17:40; Admin Dose 25 ML; Start 12/03/16 at 23:00 Dextrose (D50w Syringe) 50 ml Q15M PRN IV DECREASED GLUCOSE; Start 12/03/16 at 23:00 Glucagon (Glucagen) 1 mg Q15M PRN IM DECREASED GLUCOSE; Start 12/03/16 at 23:00 Glucose 15 gm 15 gm Q15M PRN BUCCAL DECREASED GLUCOSE; Start 12/03/16 at 23:00 Norepinephrine/ Dextrose (Levophed/D5W) 500 ml @ 1.87 mls/hr TITRATE IV Last administered on 12/10/16 05:26; Admin Dose 11.25 MLS/HR; Start 12/04/16 at 07:30 Collagenase (Santyl) 1 applic DAILY TOP Last administered on 12/11/16 08:23; Admin Dose 1 APPLIC; Start 12/05/16 at 13:30 Collagenase (Santyl) 1 applic PRN PRN TOP .SOILING; Start 12/05/16 at 12:30 Diagnostic Test (Pha) (Accucheck) 1 ea 02 XX Last administered on 12/11/16 01: 23; Admin Dose 1 EA; Start 12/07/16 at 02:00 IV Flush 10 ml 10 ml PRN PRN IV IV PROTOCOL; Start 12/10/16 at 18:00 Vancomycin HCl 250 ml @ 125 mls/hr Q12H IVPB ; Start 12/12/16 at 02:00 Dextrose/Sodium Chloride 1,000 ml @ 100 mls/hr Q10H IV Last administered on 18:50; Admin Dose 100 MLS/HR; Start 12/11/16 at 18:30 Phenylephrine HCl ([place]-Synephrine) 250 ml @ 75 mls/hr TITRATE IV ; Start at 18:30 Procedures Procedures Telemetry reviewed with sinus tachycardia noted overnight, current chart platelets sinus between the 90s to 110 Gamal Coronel DO Dec 11, 2016 22:05
--- NOTE | 2016-12-11 22:21 | RADRPT ---
Echocardiogram Report Patient Name: SHALINI CARDENAS Gender: Female Date: 1960 Study Date: 11-Dec-2016 Lumber Trimmer: Alicia Davis RDCS Location: 109 Ref. Physician: LUZMA HYMAN Quality: Adequate Procedures: Transthoracic echocardiogram with complete 2D, M-Mode, and doppler examination. Indications: HR >150. 2D/M Mode Doppler Measurement Value Normal Ranges Measurement Value Normal Ranges LVIDd 2D 3.3 3.5 - 5.6 cm AV Peak Gianni 1.3 m/sec LVIDs 2D 1.7 2.1 - 4.1 cm AV Peak PG 6.3 mmHg LVPWd 2D 0.9 0.6 - 1.1 cm LVOT Peak Gianni 1.2 m/sec IVSd 2D 0.8 0.6 - 1.1 cm LVOT Peak PG 5.5 mmHg AoR Diam 2D 1.5 2.0 - 3.7 cm MV E Peak Gianni 0.5 m/sec EDV 2D 43.8 cm3 MV A Peak Gianni 1.1 m/sec ESV 2D 4.8 cm3 MV E/A 0.5 LA Dimen 2D 2.4 2.3 - 4.0 cm MV Decel Time 94 msec MV Decel [place] 5 MV E/A 0.5 Findings Left Ventricle: Hyperdynamic left ventricular systolic function. Normal left ventricular cavity size. Normal left ventricular wall thickness. Ejection fraction is visually estimated at 70 %. Tissue Doppler/Mitral Doppler indices are consistent with impaired relaxation (Stage I diastolic dysfunction). Right Ventricle: Normal right ventricular size. Normal right ventricular systolic function. Left Atrium: The left atrium is normal in size. Right Atrium: The right atrium is normal in size. Mitral Valve: Mitral valve leaflets appear mildly thickened. Mild mitral annular calcification. Trace mitral regurgitation. Aortic Valve: Normal appearance of the aortic valve. No significant aortic stenosis or insufficiency. Tricuspid Valve: Normal appearance of the tricuspid valve. Unable to obtain RVSP due to minimal presence of tricuspid regurgitation. Pericardium: Normal pericardium with no significant pericardial effusion. Aorta: Normal aortic root. IVC: Normal size and normal respiratory collapse consistent with normal right atrial pressure. Conclusions Hyperdynamic left ventricular systolic function. Normal left ventricular cavity size. Normal left ventricular wall thickness. Ejection fraction is visually estimated at 70 %. Tissue Doppler/Mitral Doppler indices are consistent with impaired relaxation (Stage I diastolic dysfunction). Normal right ventricular size. Normal right ventricular systolic function. The left atrium is normal in size. The right atrium is normal in size. No significant valvular stenosis or regurgitation seen. Normal pericardium with no significant pericardial effusion. Electronically Signed By: Gamal Coronel 11-Dec-2016 22:21:09 -0800 Patient Name: SHALINI CARDENAS Study Date: 11-Dec-[id number]
[2016-12-12] VITALS (66 sets, daily range): BP systolic 79–128; BP diastolic 36–86; PULSE 49–143; RESP 9–20
[2016-12-12] MEDS: ACCUCHECK XX SCH (02:00)
[2016-12-12] MEDS: VANCOMYCIN 1 GM in NS 250 ML IVPB SCH ×2 (02:01→14:18)
[2016-12-12] MEDS: DEXTROSE 5%-0.45% NACL 1,000 ML IV SCH ×2 (03:56→14:12)
[2016-12-12 05:19] LABS: CHLORIDE 109 mmol/L (97-110); SODIUM 143 mmol/L (135-144)
[2016-12-12 05:22] LABS: ANION GAP 11 (8-16); CALCIUM 7.7 mg/dl (8.4-10.2); CARBON DIOXIDE 26 mmol/L (21-31); CREATININE 0.46 mg/dl (0.44-1.00); GLUCOSE 194 mg/dl (70-220)
[2016-12-12 05:24] LABS: BLOOD UREA NITROGEN < 2 mg/dl (7-20)
[2016-12-12 05:26] LABS: POTASSIUM 2.9 mmol/L (3.5-5.1)
[2016-12-12 05:32] LABS: BASOPHILS % 0.7 % (0.0-2.0); EOSINOPHILS # 0.1 10^3/ul (0.0-0.5); EOSINOPHILS % 2.7 % (0.0-7.0); HEMATOCRIT 25.6 % (37.0-47.0); HEMOGLOBIN 8.6 g/dl (12.0-16.0); LYMPHOCYTES % 54.4 % (15.0-51.0); MEAN CORPUSCULAR HEMOGLOBIN 33.6 pg (29.0-33.0); MEAN CORPUSCULAR HGB CONC 33.6 g/dl (32.0-37.0); MEAN CORPUSCULAR VOLUME 100.1 fl (82.0-101.0); MEAN PLATELET VOLUME 7.4 fl (7.4-10.4); MONOCYTE # 0.7 10^3/ul (0.3-0.9); MONOCYTES % 13.5 % (0.0-11.0); NEUTROPHIL # 1.6 10^3/ul (1.6-7.5); NEUTROPHILS % 28.7 % (39.0-77.0); PLATELET COUNT 336 10^3/UL (140-440); RED BLOOD COUNT 2.56 10^6/ul (4.20-5.40); RED CELL DISTRIBUTION WIDTH 14.9 % (11.5-14.5); UNCORRECTED WBC 5.5 10^3/ul (4.8-10.8); WHITE BLOOD COUNT 5.5 10^3/ul (4.8-10.8)
[2016-12-12 05:39] LABS: CONDITION 1; LH ANALYZER COMMENTS 1
[2016-12-12 06:18] LABS: MAGNESIUM 1.8 mg/dl (1.7-2.5); PHOSPHORUS 3.2 mg/dl (2.5-4.9)
[2016-12-12] MEDS ORDERED: POTASSIUM CHLORIDE 250 ML IVPB ONE (07:00)
[2016-12-12] MEDS: INSULIN ASPART [NOVOLOG] 3 ML PEN SC SCH ×4 (07:12→20:55)
[2016-12-12] MEDS ORDERED: PHENYLephrine 40 MG in DEXTROSE 5% 496 ML IV SCH (08:30)
[2016-12-12] MEDS: CEFEPIME 1GM/50 ML (PMX) 50 ML IVPB SCH (08:35)
[2016-12-12] MEDS: FAMOTIDINE 20 MG INJ IV SCH ×2 (08:35→20:49)
[2016-12-12] MEDS: OCULAR LUBRICANT 3.5 GM OPH OINT BOTH EYES SCH ×3 (08:36→20:48)
[2016-12-12] MEDS: ENOXAPARIN 30 MG/0.3 ML SYG SC SCH (08:37)
[2016-12-12] MEDS: COLLAGENASE 30 GM TUBE TOP SCH (08:43)
[2016-12-12] MEDS: POTASSIUM CHLORIDE (SR) 20 MEQ TAB PO SCH (08:43)
[2016-12-12 10:36] LABS: ANISOCYTOSIS 1+
[2016-12-12] MEDS ORDERED: POTASSIUM CHLORIDE 50 ML IVPB PRN (11:30)
[2016-12-12 12:42] LABS: CHLORIDE 108 mmol/L (97-110); POTASSIUM 4.2 mmol/L (3.5-5.1); SODIUM 141 mmol/L (135-144)
[2016-12-12 12:44] LABS: CREATININE 0.46 mg/dl (0.44-1.00)
[2016-12-12 12:45] LABS: ANION GAP 11 (8-16); CARBON DIOXIDE 26 mmol/L (21-31); GLUCOSE 207 mg/dl (70-220)
[2016-12-12 12:47] LABS: BLOOD UREA NITROGEN < 2 mg/dl (7-20)
[2016-12-12] MEDS ORDERED: PEG/ELECTROLYTES 4L BTL PO ONE (13:00)
--- NOTE | 2016-12-12 14:04 | CONS ---
DATE OF ADMISSION: 12/03/2016 DATE OF CONSULTATION: Dear Dr. Aly: Thank you for asking me to see Mr. Cohen in GI consultation. HISTORY OF PRESENT ILLNESS: As you know, the patient is a 56-year-old white female who is admitted to the hospital because of history of shortness of breath and she was considered to have sepsis. Sh callie had altered level of consciousness on admission which was considered secondary to sepsis. GI consultation is requested because of anemia. From the GI standpoint, no history of nausea, vomiting or GI bleeding at this time. Hemoglobin is b etween 89 g on admission. REVIEW OF SYSTEMS: Indicates that she has history of diabetes, dementia, hypercholesterolemia, seiz ure disorder. MEDICATIONS: Prior to the admission include: 1. Crestor. 2. Tylenol. 3. [place]. 4. Zyprexa 5. Bisacodyl. 6. Colace. 7. Fleets. 8. Milk of magnesia. 9. NovoLog insulin. 10. Lantus. PHYSICAL EXAMINATION: GENERAL: The patient is a 56-year-old white female who at this time is alert, but she does communic ate, but she does not comprehend appropriately. VITAL SIGNS: Pulse is 102, blood pressure 98/60. CARDIOVASCULAR: Normal heart sounds. RESPIRATORY: Normal breath sounds. ABDOMEN: Shows soft abdomen with no palpable masses, no tenderness, no distention. RECTAL: Exam is deferred. LABORATORY WORKUP: Hemoglobin is 8.6, hematocrit 25.6, WBC is 5500, platelet count in the range of 336,000. Potassium 2.9, as of the day before yesterday. She got a mild bolus of potassium. Potass ium yesterday of 4.3 actually. Sodium 142, BUN is 2, creatinine 0.53. Chest x-ray is unremarkable. Mild left lower lobe infiltrate is noted. CLINICAL IMPRESSION: The patient from the GI standpoint has severe anemia. The reason for anemia i s not very clear, rule out gastrointestinal bleeding either due to peptic ulcer disease or gastroint estinal malignancy. History of sepsis. History of electrolyte imbalance, diabetes, and hypertensio n. PLAN: I would recommend upper endoscopy as well as lower endoscopy. Recommend transfusion as neede d. Once again, doctor, thank you for this consultation. Dictated By: ANTONY MACHADO/RUSTY Conf#: [id number] DID#: [id number] CC: LUZMA ALY MD;*[facility]*
--- NOTE | 2016-12-12 14:07 | PN ---
DATE: SUBJECTIVE: No acute events overnight. The patient is lethargic, started on Carson-Synephrine drip, s lightly tachycardic. No fevers. Temperature 99.1, pulse 101, respirations 14, blood pressure 105/8 6, saturation 96% on room air. WBC 5.5, H and H 8.6 and 25.6, platelets 336, neutrophils 28.1. BUN 2, creatinine 0.46. MICROBIOLOGY: Repeat blood and urine cultures from yesterday pending. INDWELLINGS: The patient has PICC line, Shields catheter. ANTIMICROBIALS: 1. Vancomycin. 2. Cefepime. PHYSICAL EXAMINATION: GENERAL: This is a fragile, well-developed, middle-aged woman who is in no distress. HEENT: Head atraumatic, normocephalic. Sclerae anicteric. Buccal mucosa dry. NECK: Supple, trachea midline. CHEST: Rise symmetrical. Breath sounds diminished at bases. HEART: S1, S2. ABDOMEN: Soft. Bowel sounds present. EXTREMITIES: Without cyanosis with bilateral trace edema. ASSESSMENT: 1. Shock, possibly multifactorial given drop in hemoglobin. 2. Healthcare-associated pneumonia, rule out aspiration. 3. Escherichia coli extended-spectrum beta-lactamase urinary tract infection. 4. Diabetes. 5. History of dementia. 6. History of seizures. PLAN: We are going to change cefepime to meropenem. Add empiric antifungal coverage. Continue her on vancomycin. Await for final cultures. Follow chest x-ray in a.m. The patient is being followe d by cardiology. A 2D echo revealed ejection fraction of 70% with normal right ventricular systolic function and no significant valvular stenosis or regurgitation. Dictated By: MELODIE RAMIREZ WAREHOUSE PROCESSOR for ALISSA LOWE/RUSTY Conf#: [id number] DID#: [id number]
[2016-12-12] MEDS: FLUCONAZOLE 100 MG/NS (PMX) 50 ML IVPB SCH (14:26)
--- NOTE | 2016-12-12 15:10 | PN ---
Date/Time of Note Date/Time of Note DATE: 12/12/16 TIME: 15:05 Assessment/Plan VTE Prophylaxis VTE Prophylaxis Intervention: SCD's Lines/Catheters IV Catheter Type (from Nrs): PICC Line Central line still needed: Yes Urinary Cath still in place: Yes Reason Cath still needed: urinary retention Assessment/Plan Chief Complaint/Hosp Course ASSESSMENT AND PLAN: 1. Left basilar pneumonia. Continue meropenem and Vanco. 2. Sepsis secondary to pneumonia and urinary tract infection. Dr. Coffman is following patient in infectious disease consultation. Continue pressors for hemodynamic support, IV fluids and ICU care. 3. Escherichia coli extended-spectrum beta-lactamase urinary tract infection. 4. Diabetes mellitus type 2. Continue NovoLog per moderate algorithm sliding scale and Lantus. 5. History of schizophrenia and bipolar disorder. Continue patient on Zyprexa. 6. Bilateral lower extremity wound. Continue Santyl and local wound care. 7. Sinus tachycardia. Diastolic dysfunction with preserved ejection fraction per 2D echo. Dr Coronel is following from cardiology standpoint. 8. Anemia, patient is evaluated by Dr. Simpson in gastroenterology consultation , pending upper and lower endoscopy tomorrow. Continue Pepcid for peptic ulcer disease prophylaxis and Lovenox for deep venous thrombosis prophylaxis. Further recommendations based on clinical course. Plan of care discussed with Dr. Aly. Problems: Exam/Review of Systems Vital Signs Vitals Vital Signs Date Time Temp Pulse Resp B/P Pulse Ox O2 Delivery O2 Flow Rate FiO2 12/12/16 14:00 109 16 84/53 98 Room Air 12/12/16 12:00 98.5 12/10/16 22:00 21 Intake and Output 12/11/16 12/11/16 12/12/16 15:00 23:00 07:00 Intake Total 450 ml 1700 ml 1100 ml Output Total 965 ml 1120 ml 1075 ml Balance -515 ml 580 ml 25 ml Exam GENERAL: Well-developed, well-nourished female currently awake, alert. HEENT: Head is atraumatic, normocephalic. PERRLA. NECK: Supple. No mass, no thyromegaly. LUNGS: Clear bilaterally, slightly diminished at the bases. ABDOMEN: Round, soft, nondistended, nontender. Bowel sounds present. EXTREMITIES: No edema, clubbing, cyanosis. SKIN: There is no rash noted. NEUROLOGIC: The patient is alert and oriented to name and situation. Results Result Diagram: 12/12/16 0400 12/12/16 1215 Results 24 hrs Laboratory Tests Test 12/11/16 17:29 12/11/16 17:43 12/11/16 17:45 12/11/16 18:00 Bedside Glucose 33 *L 113 138 Glucose Level 96 Test 12/11/16 20:35 12/12/16 01:51 12/12/16 04:00 12/12/16 05:55 Bedside Glucose 111 117 115 Anion Gap 11 Anisocytosis 1+ Basophils # 0.0 Basophils % 0.7 Blood Morphology Comment Blood Urea Nitrogen < 2 L Calcium Level 7.7 L Carbon Dioxide Level 26 Chloride Level 109 Creatinine 0.46 Differential Comment AUTO w/SCAN Eosinophils # 0.1 Eosinophils % 2.7 Glucose Level 194 Hematocrit 25.6 L Hemoglobin 8.6 L Lymphocytes # 3.0 H Lymphocytes % 54.4 H Magnesium Level 1.8 Mean Corpuscular Hemoglobin 33.6 H Mean Corpuscular Hemoglobin Concent 33.6 Mean Corpuscular Volume 100.1 Mean Platelet Volume 7.4 Monocytes # 0.7 Monocytes % 13.5 H Neutrophils # 1.6 Neutrophils % 28.7 L Nucleated Red Blood Cells # 0.0 Nucleated Red Blood Cells % 0.0 Phosphorus Level 3.2 Platelet Count 336 Potassium Level 2.9 *L Red Blood Count 2.56 L Red Cell Distribution Width 14.9 H Sodium Level 143 White Blood Count 5.5 # Test 12/12/16 08:33 12/12/16 12:15 Bedside Glucose 93 Anion Gap 11 Blood Urea Nitrogen < 2 L Calcium Level 8.0 L Carbon Dioxide Level 26 Chloride Level 108 Creatinine 0.46 Glucose Level 207 Potassium Level 4.2 Sodium Level 141 Medications Medications Current Medications Ondansetron HCl (Zofran Inj) 4 mg Q6H PRN IV NAUSEA AND/OR VOMITING; Start 12/03 at 22:00 Acetaminophen (Tylenol Liquid) 650 mg Q6H PRN PO PAIN LEVEL 1-3 OR FEVER; Start 12/03/16 at 22:00 Morphine Sulfate (morphine) 2 mg Q4H PRN IV PAIN LEVEL 7-10; Start 12/03/16 at 22:00 Famotidine (Pepcid Iv) 20 mg Q12 IV Last administered on 12/12/16 08:35; Admin Dose 20 MG; Start 12/04/16 at 09:00 Enoxaparin Sodium (Lovenox) 30 mg DAILY SC Last administered on 12/12/16 08:37 ; Admin Dose 30 MG; Start 12/04/16 at 09:00 Eye Lubricant (Akwa Oint) 1 applic TID BOTH EYES Last administered on 13:35; Admin Dose 1 APPLIC; Start 12/04/16 at 09:00 Bisacodyl (Dulcolax Supp) 10 mg Q24H PRN ME PRN; Start 12/03/16 at 22:00 Docusate Sodium (Colace) 200 mg QHS PO Last administered on 12/11/16 20:36; Admin Dose 200 MG; Start 12/04/16 at 21:00 Acetaminophen/ Hydrocodone Bitart ([place] (10/325)) 1 tab Q6H PRN PO PAIN; Start 12/03/16 at 22:00 Magnesium Hydroxide (Milk Of Mag) 30 ml Q24H PRN PO PRN; Start 12/03/16 at 22:00 Olanzapine (Zyprexa) 5 mg QHS PO Last administered on 12/11/16 20:37; Admin Dose 5 MG; Start 12/04/16 at 21:00 Potassium Chloride (Klor-Con 20) 20 meq DAILY PO Last administered on 08:43; Admin Dose 20 MEQ; Start 12/04/16 at 09:00 Sodium Biphosphate/ Sodium Phosphate (Fleet Enema Pediatric) 66.6 ml DAILY PRN ME CONSTIPATION; Start 12/03/16 at 22:00 Latanoprost (Xalatan) 1 drop HS BOTH EYES Last administered on 12/11/16 20:37 ; Admin Dose 1 DROP; Start 12/03/16 at 23:00 Miscellaneous Information 1 ea NOTE XX ; Start 12/03/16 at 23:00 Glucose (Glutose) 15 gm Q15M PRN PO DECREASED GLUCOSE; Start 12/03/16 at 23:00 Glucose (Glutose) 22.5 gm Q15M PRN PO DECREASED GLUCOSE; Start 12/03/16 at 23:00 Dextrose (D50w Syringe) 25 ml Q15M PRN IV DECREASED GLUCOSE Last administered on 12/11/16 17:40; Admin Dose 25 ML; Start 12/03/16 at 23:00 Dextrose (D50w Syringe) 50 ml Q15M PRN IV DECREASED GLUCOSE; Start 12/03/16 at 23:00 Glucagon (Glucagen) 1 mg Q15M PRN IM DECREASED GLUCOSE; Start 12/03/16 at 23:00 Glucose (Glutose) 15 gm Q15M PRN BUCCAL DECREASED GLUCOSE; Start 12/03/16 at 23: 00 Collagenase (Santyl) 1 applic DAILY TOP Last administered on 12/12/16 08:43; Admin Dose 1 APPLIC; Start 12/05/16 at 13:30 Collagenase (Santyl) 1 applic PRN PRN TOP .SOILING; Start 12/05/16 at 12:30 Diagnostic Test (Pha) (Accucheck) 1 ea 02 XX Last administered on 12/11/16 01: 23; Admin Dose 1 EA; Start 12/07/16 at 02:00 IV Flush 10 ml 10 ml PRN PRN IV IV PROTOCOL; Start 12/10/16 at 18:00 Vancomycin HCl 250 ml @ 125 mls/hr Q12H IVPB Last administered on 12/12/16 14 :18; Admin Dose 125 MLS/HR; Start 12/12/16 at 02:00 Dextrose/Sodium Chloride 1,000 ml @ 100 mls/hr Q10H IV Last administered on 14:12; Admin Dose 100 MLS/HR; Start 12/11/16 at 18:30 Phenylephrine HCl 40 mg/Dextrose 500 ml @ 75 mls/hr TITRATE IV Last administered on 12/12/16 08:38; Admin Dose 30 MLS/HR; Start 12/12/16 at 08:30 Meropenem 1 gm/ Sodium Chloride 100 ml @ 200 mls/hr Q12 IVPB ; Start 12/12/16 at 21:00 Fluconazole/ Sodium Chloride (Diflucan 100 Mg/ NS (Pmx)) 50 ml @ 50 mls/hr Q24H IVPB Last administered on 12/12/16 14:26; Admin Dose 50 MLS/HR; Start at 14:00 Miscellaneous Information VANCO TROUGH @ 0,100 ON... ONCE ONCE XX ; Start 11/17 at 01:00; Stop 12/13/16 at 01:01 Norepinephrine/ Dextrose (Levophed/D5W) 500 ml @ 1.87 mls/hr TITRATE IV ; Start 12/12/16 at 14:30 DENA SALGUERO Dec 12, 2016 15:10
--- NOTE | 2016-12-12 19:43 | CONS ---
Date/Time of Note Date/Time of Note DATE: 12/12/16 TIME: 19:41 Assessment/Plan Assessment/Plan Additional Assessment/Plan Severe sepsis with hypotension Sinus tachycardia Hypotension, improved Psychiatric disorder -Patient restarted on IV pressor, given concern of sepsis, levo fed would be better option, would titrate to maintain SBP greater than 90 and/or map above 60. Continue IV fluids as long as respiratory status able to tolerate. Antibiotics as per infectious disease. Consultation Date/Type/Reason Admit Date/Time Dec 03, 2016 at 22:01 Initial Consult Date Type of Consultation: cv 24 HR Interval Summary Free Text/Dictation Patient more awake today, denies chest pain or shortness of breath Exam/Review of Systems Vital Signs Vitals Vital Signs Date Time Temp Pulse Resp B/P Pulse Ox O2 Delivery O2 Flow Rate FiO2 12/12/16 18:00 111 16 126/57 97 Room Air 12/12/16 16:00 98.5 12/10/16 22:00 21 Intake and Output 12/11/16 12/11/16 12/12/16 15:00 23:00 07:00 Intake Total 450 ml 1700 ml 1100 ml Output Total 965 ml 1120 ml 1075 ml Balance -515 ml 580 ml 25 ml Exam Follows commands but slowly, no apparent distress Constitutional: alert Head: normocephalic Neck: supple Respiratory: other (course breath sounds bilaterally, no wheezing) Cardiovascular: other, regular rate and rhythm Gastrointestinal: bowel sounds, non-tender, soft Extremities: edema Results Result Diagram: 12/12/16 0400 12/12/16 1215 Results 24 hrs Laboratory Tests Test 12/11/16 20:35 12/12/16 01:51 12/12/16 04:00 12/12/16 05:55 Bedside Glucose 111 117 115 Anion Gap 11 Anisocytosis 1+ Basophils # 0.0 Basophils % 0.7 Blood Morphology Comment Blood Urea Nitrogen < 2 L Calcium Level 7.7 L Carbon Dioxide Level 26 Chloride Level 109 Creatinine 0.46 Differential Comment AUTO w/SCAN Eosinophils # 0.1 Eosinophils % 2.7 Glucose Level 194 Hematocrit 25.6 L Hemoglobin 8.6 L Lymphocytes # 3.0 H Lymphocytes % 54.4 H Magnesium Level 1.8 Mean Corpuscular Hemoglobin 33.6 H Mean Corpuscular Hemoglobin Concent 33.6 Mean Corpuscular Volume 100.1 Mean Platelet Volume 7.4 Monocytes # 0.7 Monocytes % 13.5 H Neutrophils # 1.6 Neutrophils % 28.7 L Nucleated Red Blood Cells # 0.0 Nucleated Red Blood Cells % 0.0 Phosphorus Level 3.2 Platelet Count 336 Potassium Level 2.9 *L Red Blood Count 2.56 L Red Cell Distribution Width 14.9 H Sodium Level 143 White Blood Count 5.5 # Test 12/12/16 08:33 12/12/16 12:15 12/12/16 17:54 Bedside Glucose 93 106 Anion Gap 11 Blood Urea Nitrogen < 2 L Calcium Level 8.0 L Carbon Dioxide Level 26 Chloride Level 108 Creatinine 0.46 Glucose Level 207 Potassium Level 4.2 Sodium Level 141 Medications Medications Current Medications Ondansetron HCl (Zofran Inj) 4 mg Q6H PRN IV NAUSEA AND/OR VOMITING; Start 12/03 at 22:00 Acetaminophen (Tylenol Liquid) 650 mg Q6H PRN PO PAIN LEVEL 1-3 OR FEVER; Start 12/03/16 at 22:00 Morphine Sulfate (morphine) 2 mg Q4H PRN IV PAIN LEVEL 7-10; Start 12/03/16 at 22:00 Famotidine (Pepcid Iv) 20 mg Q12 IV Last administered on 12/12/16 08:35; Admin Dose 20 MG; Start 12/04/16 at 09:00 Enoxaparin Sodium (Lovenox) 30 mg DAILY SC Last administered on 12/12/16 08:37 ; Admin Dose 30 MG; Start 12/04/16 at 09:00 Eye Lubricant (Akwa Oint) 1 applic TID BOTH EYES Last administered on 13:35; Admin Dose 1 APPLIC; Start 12/04/16 at 09:00 Bisacodyl (Dulcolax Supp) 10 mg Q24H PRN AR PRN; Start 12/03/16 at 22:00 Docusate Sodium (Colace) 200 mg QHS PO Last administered on 12/11/16 20:36; Admin Dose 200 MG; Start 12/04/16 at 21:00 Acetaminophen/ Hydrocodone Bitart ([place] (10325)) 1 tab Q6H PRN PO PAIN; Start 12/03/16 at 22:00 Magnesium Hydroxide (Milk Of Mag) 30 ml Q24H PRN PO PRN; Start 12/03/16 at 22:00 Olanzapine (Zyprexa) 5 mg QHS PO Last administered on 12/11/16 20:37; Admin Dose 5 MG; Start 12/04/16 at 21:00 Potassium Chloride (Klor-Con 20) 20 meq DAILY PO Last administered on 08:43; Admin Dose 20 MEQ; Start 12/04/16 at 09:00 Sodium Biphosphate/ Sodium Phosphate (Fleet Enema Pediatric) 66.6 ml DAILY PRN [place] CONSTIPATION; Start 12/03/16 at 22:00 Latanoprost (Xalatan) 1 drop HS BOTH EYES Last administered on 12/11/16 20:37 ; Admin Dose 1 DROP; Start 12/03/16 at 23:00 Miscellaneous Information 1 ea NOTE XX ; Start 12/03/16 at 23:00 Glucose (Glutose) 15 gm Q15M PRN PO DECREASED GLUCOSE; Start 12/03/16 at 23:00 Glucose (Glutose) 22.5 gm Q15M PRN PO DECREASED GLUCOSE; Start 12/03/16 at 23:00 Dextrose (D50w Syringe) 25 ml Q15M PRN IV DECREASED GLUCOSE Last administered on 12/11/16 17:40; Admin Dose 25 ML; Start 12/03/16 at 23:00 Dextrose (D50w Syringe) 50 ml Q15M PRN IV DECREASED GLUCOSE; Start 12/03/16 at 23:00 Glucagon (Glucagen) 1 mg Q15M PRN IM DECREASED GLUCOSE; Start 12/03/16 at 23:00 Glucose (Glutose) 15 gm Q15M PRN BUCCAL DECREASED GLUCOSE; Start 12/03/16 at 23: 00 Collagenase (Santyl) 1 applic DAILY TOP Last administered on 12/12/16 08:43; Admin Dose 1 APPLIC; Start 12/05/16 at 13:30 Collagenase (Santyl) 1 applic PRN PRN TOP .SOILING; Start 12/05/16 at 12:30 Diagnostic Test (Pha) (Accucheck) 1 ea 02 XX Last administered on 12/11/16 01: 23; Admin Dose 1 EA; Start 12/07/16 at 02:00 IV Flush 10 ml 10 ml PRN PRN IV IV PROTOCOL; Start 12/10/16 at 18:00 Vancomycin HCl 250 ml @ 125 mls/hr Q12H IVPB Last administered on 12/12/16 14 :18; Admin Dose 125 MLS/HR; Start 12/12/16 at 02:00 Dextrose/Sodium Chloride 1,000 ml @ 100 mls/hr Q10H IV Last administered on 14:12; Admin Dose 100 MLS/HR; Start 12/11/16 at 18:30 Phenylephrine HCl 40 mg/Dextrose 500 ml @ 75 mls/hr TITRATE IV Last administered on 12/12/16 08:38; Admin Dose 30 MLS/HR; Start 12/12/16 at 08:30 Meropenem 1 gm/ Sodium Chloride 100 ml @ 200 mls/hr Q12 IVPB ; Start 12/12/16 at 21:00 Fluconazole/ Sodium Chloride (Diflucan 100 Mg/ NS (Pmx)) 50 ml @ 50 mls/hr Q24H IVPB Last administered on 12/12/16 14:26; Admin Dose 50 MLS/HR; Start at 14:00 Miscellaneous Information VANCO TROUGH @ 0,100 ON... ONCE ONCE XX ; Start 11/17 at 01:00; Stop 12/13/16 at 01:01 Norepinephrine/ Dextrose (Levophed/D5W) 500 ml @ 1.87 mls/hr TITRATE IV Last administered on 12/12/16 15:54; Admin Dose 9.37 MLS/HR; Start 12/12/16 at 14:30 Gamal Coronel DO Dec 12, 2016 19:43
[2016-12-12] MEDS: LATANOPROST 0.005% 2.5 ML OPH BOTH EYES SCH (20:48)
[2016-12-12] MEDS: OLANZAPINE 5 MG TAB PO SCH (20:49)
[2016-12-12] MEDS: MEROPENEM 1 GM in SOD CHLORIDE 0.9% 100 ML IVPB SCH (20:49)
[2016-12-12] MEDS: DOCUSATE SODIUM 100 MG CAP PO SCH (20:49)
--- NOTE | 2016-12-12 22:49 | RADRPT ---
Vent Rate: 148 bpm RR Interval: 0 msec SC Interval: 114 msec QRS Duration: 64 msec QT Interval: 282 msec QTC Interval: 442 msec P-R-T Orient: 62 - 6 - 45 degrees Sinus tachycardia Cannot rule out Anterior infarct , age undetermined Abnormal ECG Electronically Signed By: Jace Tabor [id number]
[2016-12-13] VITALS (28 sets, daily range): BP systolic 100–132; BP diastolic 44–81; PULSE 86–132; RESP 12–27
[2016-12-13] MEDS: DEXTROSE 5%-0.45% NACL 1,000 ML IV SCH ×3 (00:30→20:30)
[2016-12-13] MEDS: ACCUCHECK XX SCH (01:34)
[2016-12-13 06:49] LABS: CHLORIDE 106 mmol/L (97-110); POTASSIUM 3.5 mmol/L (3.5-5.1); SODIUM 141 mmol/L (135-144)
[2016-12-13 06:52] LABS: ANION GAP 12 (8-16); CARBON DIOXIDE 27 mmol/L (21-31); CREATININE 0.51 mg/dl (0.44-1.00)
[2016-12-13 06:53] LABS: BLOOD UREA NITROGEN < 2 mg/dl (7-20); CALCIUM 8.1 mg/dl (8.4-10.2); GLUCOSE 111 mg/dl (70-220); MAGNESIUM 1.5 mg/dl (1.7-2.5); PHOSPHORUS 3.2 mg/dl (2.5-4.9)
[2016-12-13 06:58] LABS: BASOPHILS % 0.5 % (0.0-2.0); EOSINOPHILS # 0.1 10^3/ul (0.0-0.5); HEMOGLOBIN 8.9 g/dl (12.0-16.0); LYMPHOCYTES # 2.2 10^3/ul (0.8-2.9); LYMPHOCYTES % 39.5 % (15.0-51.0); MEAN CORPUSCULAR HEMOGLOBIN 34.1 pg (29.0-33.0); MEAN CORPUSCULAR HGB CONC 34.3 g/dl (32.0-37.0); MEAN CORPUSCULAR VOLUME 99.4 fl (82.0-101.0); MEAN PLATELET VOLUME 6.9 fl (7.4-10.4); MONOCYTE # 0.6 10^3/ul (0.3-0.9); MONOCYTES % 11.2 % (0.0-11.0); NEUTROPHIL # 2.6 10^3/ul (1.6-7.5); NEUTROPHILS % 46.8 % (39.0-77.0); PLATELET COUNT 361 10^3/UL (140-440); RED BLOOD COUNT 2.61 10^6/ul (4.20-5.40); RED CELL DISTRIBUTION WIDTH 15.1 % (11.5-14.5); UNCORRECTED WBC 5.6 10^3/ul (4.8-10.8); WHITE BLOOD COUNT 5.6 10^3/ul (4.8-10.8)
[2016-12-13 07:05] LABS: CONDITION 1; LH ANALYZER COMMENTS 1
[2016-12-13] MEDS: INSULIN ASPART [NOVOLOG] 3 ML PEN SC SCH ×4 (07:35→21:06)
[2016-12-13] MEDS: VANCOMYCIN 750 MG in SOD CHLORIDE 0.9% 150 ML IVPB SCH ×2 (08:32→21:01)
[2016-12-13] MEDS: POTASSIUM CHLORIDE (SR) 20 MEQ TAB PO SCH (08:33)
[2016-12-13] MEDS: MEROPENEM 1 GM in SOD CHLORIDE 0.9% 100 ML IVPB SCH ×2 (08:33→21:01)
[2016-12-13] MEDS: COLLAGENASE 30 GM TUBE TOP SCH (08:33)
[2016-12-13] MEDS: FAMOTIDINE 20 MG INJ IV SCH ×2 (08:33→21:01)
[2016-12-13] MEDS: OCULAR LUBRICANT 3.5 GM OPH OINT BOTH EYES SCH ×3 (08:34→21:01)
[2016-12-13] MEDS: ENOXAPARIN 30 MG/0.3 ML SYG SC SCH (09:00)
--- NOTE | 2016-12-13 12:27 | PN ---
Date/Time of Note Date/Time of Note DATE: 12/13/16 TIME: 12:21 Assessment/Plan VTE Prophylaxis VTE Prophylaxis Intervention: LMWH Lines/Catheters IV Catheter Type (from Rust): PICC Line Urinary Cath still in place: Yes Assessment/Plan Assessment/Plan 1. Left basilar pneumonia. Continue meropenem and Vanco. 2. Sepsis secondary to pneumonia and urinary tract infection. - per Dr. Coffman in infectious disease consultation. - Continue pressors for hemodynamic support, IV fluids and ICU care. 3. Escherichia coli extended-spectrum beta-lactamase urinary tract infection. 4. Diabetes mellitus type 2. - glycemic control - Continue NovoLog per moderate algorithm sliding scale and Lantus. 5. History of schizophrenia and bipolar disorder. - no acute issue - Continue patient on Zyprexa. 6. Bilateral lower extremity wound. Continue Santyl and local wound care. 7. Sinus tachycardia. Diastolic dysfunction with preserved ejection fraction per 2D echo. - per Dr Coronel from cardiology standpoint. 8. Anemia, patient is evaluated by Dr. Simpson in gastroenterology consultation - per gi - upper and lower endoscopy today. 9. Hypomagnesium- replet Mg, am Mag lab 10. Edema bilateral hands- elevate all times 11. Edema bilateral feet- elevate all times Continue Pepcid for peptic ulcer disease prophylaxis and Lovenox for deep venous thrombosis prophylaxis. Further recommendations based on clinical course. Total critical time spent for patient is 35 mins.Plan of care discussed with Dr. Aly. Subjective 24 Hr Interval Summary Constitutional: requiring IVF, requiring O2 Eyes: no complaints ENT: no complaints Respiratory: no complaints Cardiovascular: chest pain Gastrointestinal: diarrhea, pain Genitourinary: no complaints Musculoskeletal: no complaints Skin: no complaints Neurologic: no complaints Exam/Review of Systems Vital Signs Vitals Vital Signs Date Time Temp Pulse Resp B/P Pulse Ox O2 Delivery O2 Flow Rate FiO2 12/13/16 10:00 127 17 123/74 96 Room Air 12/13/16 07:00 98.3 12/10/16 22:00 21 Intake and Output 12/12/16 12/12/16 12/13/16 15:00 23:00 07:00 Intake Total 1191.25 ml 2828.42 ml 3600 ml Output Total 950 ml 1520 ml 690 ml Balance 241.25 ml 1308.42 ml 2910 ml Exam Constitutional: alert, well developed Psych: nl mood/affect Eyes: EOMI, PERRL, nl sclera ENMT: nl external ears & nose Neck: non-tender Respiratory: diminished breath sounds Cardiovascular: nl pulses Gastrointestinal: non-tender, soft Musculoskeletal: nl extremities to inspection Extremities: edema (bilateral hands, feet) Neurological: nl speech Lymph: nontender Results Result Diagram: 12/13/16 0500 12/13/16 0500 Results 24 hrs Laboratory Tests Test 12/12/16 17:54 12/12/16 20:55 12/12/16 22:13 12/12/16 23:52 Bedside Glucose 106 66 L 72 94 Test 12/13/16 01:07 12/13/16 01:25 12/13/16 05:00 12/13/16 08:43 Vancomycin Level Trough 22.1 *H Bedside Glucose 99 117 Anion Gap 12 Basophils # 0.0 Basophils % 0.5 Blood Morphology Comment Blood Urea Nitrogen < 2 L Calcium Level 8.1 L Carbon Dioxide Level 27 Chloride Level 106 Creatinine 0.51 Eosinophils # 0.1 Eosinophils % 2.0 Glucose Level 111 # Hematocrit 26.0 L Hemoglobin 8.9 L Lymphocytes # 2.2 Lymphocytes % 39.5 Magnesium Level 1.5 L Mean Corpuscular Hemoglobin 34.1 H Mean Corpuscular Hemoglobin Concent 34.3 Mean Corpuscular Volume 99.4 Mean Platelet Volume 6.9 L Monocytes # 0.6 Monocytes % 11.2 H Neutrophils # 2.6 Neutrophils % 46.8 Nucleated Red Blood Cells # 0.0 Nucleated Red Blood Cells % 0.0 Phosphorus Level 3.2 Platelet Count 361 Potassium Level 3.5 Red Blood Count 2.61 L Red Cell Distribution Width 15.1 H Sodium Level 141 White Blood Count 5.6 Test 12/13/16 12:03 Bedside Glucose 131 Medications Medications Current Medications Ondansetron HCl (Zofran Inj) 4 mg Q6H PRN IV NAUSEA AND/OR VOMITING; Start 12/03 at 22:00 Acetaminophen (Tylenol Liquid) 650 mg Q6H PRN PO PAIN LEVEL 1-3 OR FEVER; Start 12/03/16 at 22:00 Morphine Sulfate (morphine) 2 mg Q4H PRN IV PAIN LEVEL 7-10; Start 12/03/16 at 22:00 Famotidine (Pepcid Iv) 20 mg Q12 IV Last administered on 12/13/16 08:33; Admin Dose 20 MG; Start 12/04/16 at 09:00 Enoxaparin Sodium (Lovenox) 30 mg DAILY SC Last administered on 12/12/16 08:37 ; Admin Dose 30 MG; Start 12/04/16 at 09:00 Eye Lubricant (Akwa Oint) 1 applic TID BOTH EYES Last administered on 08:34; Admin Dose 1 APPLIC; Start 12/04/16 at 09:00 Bisacodyl (Dulcolax Supp) 10 mg Q24H PRN MD PRN; Start 12/03/16 at 22:00 Docusate Sodium (Colace) 200 mg QHS PO Last administered on 12/12/16 20:49; Admin Dose 200 MG; Start 12/04/16 at 21:00 Acetaminophen/ Hydrocodone Bitart ([place] (10/325)) 1 tab Q6H PRN PO PAIN; Start 12/03/16 at 22:00 Magnesium Hydroxide (Milk Of Mag) 30 ml Q24H PRN PO PRN; Start 12/03/16 at 22:00 Olanzapine (Zyprexa) 5 mg QHS PO Last administered on 12/12/16 20:49; Admin Dose 5 MG; Start 12/04/16 at 21:00 Potassium Chloride (Klor-Con 20) 20 meq DAILY PO Last administered on 08:33; Admin Dose 20 MEQ; Start 12/04/16 at 09:00 Sodium Biphosphate/ Sodium Phosphate (Fleet Enema Pediatric) 66.6 ml DAILY PRN MD CONSTIPATION; Start 12/03/16 at 22:00 Latanoprost (Xalatan) 1 drop HS BOTH EYES Last administered on 12/12/16 20:48 ; Admin Dose 1 DROP; Start 12/03/16 at 23:00 Miscellaneous Information 1 ea NOTE XX ; Start 12/03/16 at 23:00 Glucose (Glutose) 15 gm Q15M PRN PO DECREASED GLUCOSE; Start 12/03/16 at 23:00 Glucose (Glutose) 22.5 gm Q15M PRN PO DECREASED GLUCOSE; Start 12/03/16 at 23:00 Dextrose (D50w Syringe) 25 ml Q15M PRN IV DECREASED GLUCOSE Last administered on 12/11/16 17:40; Admin Dose 25 ML; Start 12/03/16 at 23:00 Dextrose (D50w Syringe) 50 ml Q15M PRN IV DECREASED GLUCOSE; Start 12/03/16 at 23:00 Glucagon (Glucagen) 1 mg Q15M PRN IM DECREASED GLUCOSE; Start 12/03/16 at 23:00 Glucose (Glutose) 15 gm Q15M PRN BUCCAL DECREASED GLUCOSE; Start 12/03/16 at 23: 00 Collagenase (Santyl) 1 applic DAILY TOP Last administered on 12/13/16 08:33; Admin Dose 1 APPLIC; Start 12/05/16 at 13:30 Collagenase (Santyl) 1 applic PRN PRN TOP .SOILING; Start 12/05/16 at 12:30 Diagnostic Test (Pha) (Accucheck) 1 ea 02 XX Last administered on 12/13/16 01: 34; Admin Dose 1 EA; Start 12/07/16 at 02:00 IV Flush 10 ml 10 ml PRN PRN IV IV PROTOCOL; Start 12/10/16 at 18:00 Dextrose/Sodium Chloride 1,000 ml @ 100 mls/hr Q10H IV Last administered on 10:45; Admin Dose 100 MLS/HR; Start 12/11/16 at 18:30 Phenylephrine HCl 40 mg/Dextrose 500 ml @ 75 mls/hr TITRATE IV Last administered on 12/12/16 08:38; Admin Dose 30 MLS/HR; Start 12/12/16 at 08:30 Meropenem 1 gm/ Sodium Chloride 100 ml @ 200 mls/hr Q12 IVPB Last administered on 12/13/16 08:33; Admin Dose 200 MLS/HR; Start 12/12/16 at 21:00 Fluconazole/ Sodium Chloride 50 ml @ 50 mls/hr Q24H IVPB Last administered on 14:26; Admin Dose 50 MLS/HR; Start 12/12/16 at 14:00 Norepinephrine 16 mg/Dextrose 500 ml @ 1.87 mls/hr TITRATE IV Last administered on 12/12/16 15:54; Admin Dose 9.37 MLS/HR; Start 12/12/16 at 14:30 Vancomycin HCl/ Sodium Chloride (Vancocin/NS) 150 ml @ 75 mls/hr Q12H IVPB Last administered on 12/13/16 08:32; Admin Dose 75 MLS/HR; Start 12/13/16 at 08 :00 MICHAEL COLINDRES Dec 13, 2016 12:27
[2016-12-13] MEDS ORDERED: MAGNESIUM SULFATE 1 GM/D5W 100 ML IVPB ONE (12:30)
[2016-12-13] MEDS ORDERED: PROPOFOL 40 ML ONE (14:34)
--- NOTE | 2016-12-13 14:38 | CONS ---
Date/Time of Note Date/Time of Note DATE: 12/13/16 TIME: 14:35 Assessment/Plan Assessment/Plan Additional Assessment/Plan Severe sepsis with hypotension Sinus tachycardia Hypotension, improved Psychiatric disorder -Blood pressure has improved and off IV pressor. Would hold any antihypertensive medications at the current time. Antibiotics as per primary team. Consultation Date/Type/Reason Admit Date/Time Dec 03, 2016 at 22:01 Type of Consultation: cv 24 HR Interval Summary Free Text/Dictation Patient denies chest pain, shortness of breath or dizziness. Off IV pressor Exam/Review of Systems Vital Signs Vitals Vital Signs Date Time Temp Pulse Resp B/P Pulse Ox O2 Delivery O2 Flow Rate FiO2 12/13/16 12:00 98.4 111 15 113/61 95 Room Air 12/10/16 22:00 21 Intake and Output 12/12/16 12/12/16 12/13/16 15:00 23:00 07:00 Intake Total 1191.25 ml 2828.42 ml 3600 ml Output Total 950 ml 1520 ml 690 ml Balance 241.25 ml 1308.42 ml 2910 ml Exam Awake, follows commands, confused at times Head: normocephalic Neck: supple Respiratory: other (course breath sounds bilaterally, no wheezing) Cardiovascular: other (S1-S2 heard), regular rate and rhythm Gastrointestinal: bowel sounds, non-tender, soft Extremities: edema Results Result Diagram: 12/13/16 0500 12/13/16 0500 Results 24 hrs Laboratory Tests Test 12/12/16 17:54 12/12/16 20:55 12/12/16 22:13 12/12/16 23:52 Bedside Glucose 106 66 L 72 94 Test 12/13/16 01:07 12/13/16 01:25 12/13/16 05:00 12/13/16 08:43 Vancomycin Level Trough 22.1 *H Bedside Glucose 99 117 Anion Gap 12 Basophils # 0.0 Basophils % 0.5 Blood Morphology Comment Blood Urea Nitrogen < 2 L Calcium Level 8.1 L Carbon Dioxide Level 27 Chloride Level 106 Creatinine 0.51 Eosinophils # 0.1 Eosinophils % 2.0 Glucose Level 111 # Hematocrit 26.0 L Hemoglobin 8.9 L Lymphocytes # 2.2 Lymphocytes % 39.5 Magnesium Level 1.5 L Mean Corpuscular Hemoglobin 34.1 H Mean Corpuscular Hemoglobin Concent 34.3 Mean Corpuscular Volume 99.4 Mean Platelet Volume 6.9 L Monocytes # 0.6 Monocytes % 11.2 H Neutrophils # 2.6 Neutrophils % 46.8 Nucleated Red Blood Cells # 0.0 Nucleated Red Blood Cells % 0.0 Phosphorus Level 3.2 Platelet Count 361 Potassium Level 3.5 Red Blood Count 2.61 L Red Cell Distribution Width 15.1 H Sodium Level 141 White Blood Count 5.6 Test 12/13/16 12:03 Bedside Glucose 131 Medications Medications Current Medications Ondansetron HCl (Zofran Inj) 4 mg Q6H PRN IV NAUSEA AND/OR VOMITING; Start 12/03 at 22:00 Acetaminophen (Tylenol Liquid) 650 mg Q6H PRN PO PAIN LEVEL 1-3 OR FEVER; Start 12/03/16 at 22:00 Morphine Sulfate (morphine) 2 mg Q4H PRN IV PAIN LEVEL 7-10; Start 12/03/16 at 22:00 Famotidine (Pepcid Iv) 20 mg Q12 IV Last administered on 12/13/16 08:33; Admin Dose 20 MG; Start 12/04/16 at 09:00 Enoxaparin Sodium (Lovenox) 30 mg DAILY SC Last administered on 12/12/16 08:37 ; Admin Dose 30 MG; Start 12/04/16 at 09:00 Eye Lubricant (Akwa Oint) 1 applic TID BOTH EYES Last administered on 08:34; Admin Dose 1 APPLIC; Start 12/04/16 at 09:00 Bisacodyl (Dulcolax Supp) 10 mg Q24H PRN [place] PRN; Start 12/03/16 at 22:00 Docusate Sodium (Colace) 200 mg QHS PO Last administered on 12/12/16 20:49; Admin Dose 200 MG; Start 12/04/16 at 21:00 Acetaminophen/ Hydrocodone Bitart ([place] (10/325)) 1 tab Q6H PRN PO PAIN; Start 12/03/16 at 22:00 Magnesium Hydroxide (Milk Of Mag) 30 ml Q24H PRN PO PRN; Start 12/03/16 at 22:00 Olanzapine (Zyprexa) 5 mg QHS PO Last administered on 12/12/16 20:49; Admin Dose 5 MG; Start 12/04/16 at 21:00 Potassium Chloride (Klor-Con 20) 20 meq DAILY PO Last administered on 08:33; Admin Dose 20 MEQ; Start 12/04/16 at 09:00 Sodium Biphosphate/ Sodium Phosphate (Fleet Enema Pediatric) 66.6 ml DAILY PRN [place] CONSTIPATION; Start 12/03/16 at 22:00 Latanoprost (Xalatan) 1 drop HS BOTH EYES Last administered on 12/12/16 20:48 ; Admin Dose 1 DROP; Start 12/03/16 at 23:00 Miscellaneous Information 1 ea NOTE XX ; Start 12/03/16 at 23:00 Glucose (Glutose) 15 gm Q15M PRN PO DECREASED GLUCOSE; Start 12/03/16 at 23:00 Glucose (Glutose) 22.5 gm Q15M PRN PO DECREASED GLUCOSE; Start 12/03/16 at 23:00 Dextrose (D50w Syringe) 25 ml Q15M PRN IV DECREASED GLUCOSE Last administered on 12/11/16 17:40; Admin Dose 25 ML; Start 12/03/16 at 23:00 Dextrose (D50w Syringe) 50 ml Q15M PRN IV DECREASED GLUCOSE; Start 12/03/16 at 23:00 Glucagon (Glucagen) 1 mg Q15M PRN IM DECREASED GLUCOSE; Start 12/03/16 at 23:00 Glucose (Glutose) 15 gm Q15M PRN BUCCAL DECREASED GLUCOSE; Start 12/03/16 at 23: 00 Collagenase (Santyl) 1 applic DAILY TOP Last administered on 12/13/16 08:33; Admin Dose 1 APPLIC; Start 12/05/16 at 13:30 Collagenase (Santyl) 1 applic PRN PRN TOP .SOILING; Start 12/05/16 at 12:30 Diagnostic Test (Pha) (Accucheck) 1 ea 02 XX Last administered on 12/13/16 01: 34; Admin Dose 1 EA; Start 12/07/16 at 02:00 IV Flush 10 ml 10 ml PRN PRN IV IV PROTOCOL; Start 12/10/16 at 18:00 Dextrose/Sodium Chloride 1,000 ml @ 100 mls/hr Q10H IV Last administered on 10:45; Admin Dose 100 MLS/HR; Start 12/11/16 at 18:30 Phenylephrine HCl 40 mg/Dextrose 500 ml @ 75 mls/hr TITRATE IV Last administered on 12/12/16 08:38; Admin Dose 30 MLS/HR; Start 12/12/16 at 08:30 Meropenem 1 gm/ Sodium Chloride 100 ml @ 200 mls/hr Q12 IVPB Last administered on 12/13/16 08:33; Admin Dose 200 MLS/HR; Start 12/12/16 at 21:00 Fluconazole/ Sodium Chloride 50 ml @ 50 mls/hr Q24H IVPB Last administered on 14:26; Admin Dose 50 MLS/HR; Start 12/12/16 at 14:00 Norepinephrine 16 mg/Dextrose 500 ml @ 1.87 mls/hr TITRATE IV Last administered on 12/12/16 15:54; Admin Dose 9.37 MLS/HR; Start 12/12/16 at 14:30 Vancomycin HCl/ Sodium Chloride (Vancocin/NS) 150 ml @ 75 mls/hr Q12H IVPB Last administered on 12/13/16 08:32; Admin Dose 75 MLS/HR; Start 12/13/16 at 08 :00 Miscellaneous Information (*Rx Drug Level Order Reminder*) VANCO TR LEVEL PRIOR... ONCE ONCE XX ; Start 12/14/16 at 19:00; Stop 12/14/16 at 19:01 Gamal Coronel DO Dec 13, 2016 14:38
--- NOTE | 2016-12-13 15:14 | RADRPT ---
PROCEDURE: US bilateral lower extremity veins. CLINICAL INDICATION: Bilateral leg pain and swelling. TECHNIQUE: Multiple longitudinal and transverse images of the bilateral lower extremity veins were obtained with gillis scale and color Doppler imaging. The common femoral vein, femoral vein, and popl iteal vein were evaluated. 2D grayscale measurements with compression sonography, color Doppler, and pulsed Doppler with augmentation. COMPARISON: No prior studies are available for comparison. FINDINGS: The bilateral common femoral, femoral and popliteal veins are normally compressible throughout. Col or flow demonstrates normal filling of the vessels. Normal waveforms are visualized and there is no rmal response to augmentation. IMPRESSION: 1. No evidence of deep vein thrombosis involving either lower extremity. RPTAT: QQ .Adarsh Anna MD, MD Date Time Electronically viewed and signed by .Adarsh Anna MD, on 12/13/2016 15:14 .R/
--- NOTE | 2016-12-13 15:33 | PN ---
DATE: 12/13/2016 SUBJECTIVE: No acute changes. The patient is off pressors, lying comfortably in bed. No fevers. VITAL SIGNS: Temperature 98.4, pulse 111, respirations 15, blood pressure 113/ 61, saturation 95 on room air. WBC 5.6, H and H 8.9 and 26, platelets 361, no bands. BUN 2, creatinine 0.51. ANTIMICROBIALS: The patient is on: 1. Vancomycin. 2. Fluconazole. 3. Meropenem. INDWELLINGS: Shields catheter, PICC line placed on 12/10/2016. PHYSICAL EXAMINATION: GENERAL: Fragile middle-aged white woman who is sleeping in no distress. HEENT: Head atraumatic, normocephalic. Sclerae anicteric. Buccal mucosa dry. NECK: Supple, trachea midline. CHEST: Rise symmetrical. Breath sounds diminished to bases. HEART: S1, S2. ABDOMEN: Soft, bowel tones present. EXTREMITIES: Without cyanosis. Bilateral trace edema. ASSESSMENT: 1. Sepsis, status post shock, stable off pressors. 2. Healthcare-associated pneumonia, possibly aspiration. 3. Escherichia coli, extended-spectrum beta-lactamase urinary tract infection on admission. 4. Diabetes. 5. Sinus tachycardia. 6. History of psychiatric disease. PLAN: The patient remains stable off pressors. She is being seen by multiple consultants. She is scheduled for EGD and colonoscopy. We will continue her on current abx. Dictated By: MELODIE RAMIREZ SLEEVE PRESSER OPERATOR for ALISSA LOWE/RUSTY Conf#: [id number] DID#: [id number] CLEMENTINE
[2016-12-13] MEDS: FLUCONAZOLE 100 MG/NS (PMX) 50 ML IVPB SCH (15:54)
--- NOTE | 2016-12-13 16:01 | RADRPT ---
PROCEDURE: US bilateral upper extremity veins. CLINICAL INDICATION: Bilateral upper extremity pain and swelling. TECHNIQUE: Multiple longitudinal and transverse images of the bilateral upper extremity venous chon e was obtained with gillis scale and color Doppler imaging. COMPARISON: None available FINDINGS: The right internal jugular veins, subclavian veins, axillary, brachial, basilic, upper cephalic, rad ial, and ulnar veins are patent bilaterally. There is normal flow with augmentation and compressibil ity throughout. There is no thrombus or occlusion. The right cephalic vein in the forearm is not vi sualized. The left internal jugular veins, subclavian veins, axillary, brachial, upper basilic, cephalic, radi al, and ulnar veins are patent bilaterally. There is normal flow with augmentation and compressibili ty throughout. There is no thrombus or occlusion. The left basilic vein in the forearm is not visua lized. IMPRESSION: 1. No thrombus or occlusion of the visualized veins. 2. The right cephalic vein in the forearm and the left basilic vein in the forearm are not visualiz ed. RPTAT: QQ .Adarsh Anna MD, MD Date Time Electronically viewed and signed by .Adarsh Anna MD, on 12/13/2016 16:01 .R/
[2016-12-13] MEDS: OLANZAPINE 5 MG TAB PO SCH (21:01)
[2016-12-13] MEDS: DOCUSATE SODIUM 100 MG CAP PO SCH (21:01)
[2016-12-13] MEDS: LATANOPROST 0.005% 2.5 ML OPH BOTH EYES SCH (21:01)
[2016-12-14] VITALS (13 sets, daily range): BP systolic 105–126; BP diastolic 52–59; PULSE 84–114; RESP 17–18
[2016-12-14] MEDS: ACCUCHECK XX SCH (02:00)
[2016-12-14] MEDS: DEXTROSE 5%-0.45% NACL 1,000 ML IV SCH (06:16)
[2016-12-14 07:39] LABS: BASOPHILS % 0.7 % (0.0-2.0); EOSINOPHILS # 0.1 10^3/ul (0.0-0.5); EOSINOPHILS % 2.6 % (0.0-7.0); HEMATOCRIT 27.2 % (37.0-47.0); HEMOGLOBIN 9.2 g/dl (12.0-16.0); LYMPHOCYTES % 53.1 % (15.0-51.0); MEAN CORPUSCULAR HEMOGLOBIN 33.9 pg (29.0-33.0); MEAN CORPUSCULAR HGB CONC 33.9 g/dl (32.0-37.0); MEAN CORPUSCULAR VOLUME 99.9 fl (82.0-101.0); MONOCYTE # 0.4 10^3/ul (0.3-0.9); MONOCYTES % 10.9 % (0.0-11.0); NEUTROPHIL # 1.2 10^3/ul (1.6-7.5); NEUTROPHILS % 32.7 % (39.0-77.0); PLATELET COUNT 356 10^3/UL (140-440); RED BLOOD COUNT 2.72 10^6/ul (4.20-5.40); RED CELL DISTRIBUTION WIDTH 15.3 % (11.5-14.5); UNCORRECTED WBC 3.8 10^3/ul (4.8-10.8); WHITE BLOOD COUNT 3.8 10^3/ul (4.8-10.8)
[2016-12-14 07:49] LABS: ALBUMIN 2.1 g/dl (3.3-4.9); CHLORIDE 104 mmol/L (97-110); SODIUM 139 mmol/L (135-144)
[2016-12-14 07:50] LABS: POTASSIUM 4.1 mmol/L (3.5-5.1)
[2016-12-14 07:52] LABS: ALANINE AMINOTRANSFERASE 22 IU/L (13-69); ALBUMIN/GLOBULIN RATIO 0.75; ALKALINE PHOSPHATASE 105 IU/L (42-121); ANION GAP 11 (8-16); ASPARTATE AMINO TRANSFERASE 28 IU/L (15-46); BILIRUBIN,INDIRECT 0.2 mg/dl (0-1.1); BILIRUBIN,TOTAL 0.2 mg/dl (0.2-1.3); BLOOD UREA NITROGEN < 2 mg/dl (7-20); CALCIUM 8.2 mg/dl (8.4-10.2); CARBON DIOXIDE 28 mmol/L (21-31); GLUCOSE 300 mg/dl (70-220); TOTAL PROTEIN 4.9 g/dl (6.1-8.1)
[2016-12-14 07:53] LABS: MAGNESIUM 1.6 mg/dl (1.7-2.5)
[2016-12-14 08:03] LABS: CONDITION 1; LH ANALYZER COMMENTS 1
[2016-12-14] MEDS: INSULIN ASPART [NOVOLOG] 3 ML PEN SC SCH ×5 (08:41→21:00)
[2016-12-14] MEDS: FAMOTIDINE 20 MG INJ IV SCH ×2 (08:42→21:05)
[2016-12-14] MEDS: OCULAR LUBRICANT 3.5 GM OPH OINT BOTH EYES SCH ×4 (08:42→21:05)
[2016-12-14] MEDS: POTASSIUM CHLORIDE (SR) 20 MEQ TAB PO SCH ×2 (08:43→08:56)
[2016-12-14] MEDS: COLLAGENASE 30 GM TUBE TOP SCH (08:44)
[2016-12-14] MEDS: ENOXAPARIN 30 MG/0.3 ML SYG SC SCH (08:44)
[2016-12-14] MEDS: VANCOMYCIN 750 MG in SOD CHLORIDE 0.9% 150 ML IVPB SCH (08:48)
[2016-12-14] MEDS: MEROPENEM 1 GM in SOD CHLORIDE 0.9% 100 ML IVPB SCH ×2 (08:48→21:04)
[2016-12-14] MEDS ORDERED: POTASSIUM CHLORIDE (SR) 20 MEQ TAB PO STA (13:40)
--- NOTE | 2016-12-14 13:43 | CONS ---
Date/Time of Note Date/Time of Note DATE: 12/14/16 TIME: 13:32 Assessment/Plan Assessment/Plan Additional Assessment/Plan Severe sepsis with hypotension, improved Likely PNA and UTI Sinus tachycardia Preserved ejection fraction Psychiatric disorder -Pt with stable BP and off IV pressors >24 hours. Will start gentle diuresis as BP and renal fxn permits. Supplement potassium and magnesium ordered. Antibiotics as per ID. Consultation Date/Type/Reason Admit Date/Time Dec 03, 2016 at 22:01 Type of Consultation: cv 24 HR Interval Summary Free Text/Dictation feeling better, no sob, cp, palpitations Exam/Review of Systems Vital Signs Vitals Vital Signs Date Time Temp Pulse Resp B/P Pulse Ox O2 Delivery O2 Flow Rate FiO2 12/14/16 12:16 98 12/14/16 11:20 97.6 18 114/57 97 12/13/16 22:00 Room Air 12/13/16 14:54 21 Intake and Output 12/13/16 12/13/16 12/14/16 15:00 23:00 07:00 Intake Total 880 ml 670 ml 600 ml Output Total 370 ml 580 ml 1600 ml Balance 510 ml 90 ml -1000 ml Exam awake, following commands, nad Constitutional: alert Head: normocephalic Neck: supple Respiratory: other (course bs, no wheeze) Cardiovascular: other (s1s2), regular rate and rhythm Gastrointestinal: bowel sounds, non-tender, soft Extremities: edema Results Result Diagram: 12/14/16 0630 12/14/16 0600 Results 24 hrs Laboratory Tests Test 12/13/16 17:44 12/13/16 21:03 12/14/16 02:40 12/14/16 06:00 Bedside Glucose 128 194 239 H Alanine Aminotransferase (ALT/SGPT) 22 Albumin 2.1 L Albumin/Globulin Ratio 0.75 Alkaline Phosphatase 105 Anion Gap 11 Aspartate Amino Transf (AST/SGOT) 28 Blood Urea Nitrogen < 2 L Calcium Level 8.2 L Carbon Dioxide Level 28 Chloride Level 104 Creatinine 0.50 Direct Bilirubin 0.00 Globulin 2.80 Glucose Level 300 #H Indirect Bilirubin 0.2 Magnesium Level 1.6 L Potassium Level 4.1 Sodium Level 139 Total Bilirubin 0.2 Total Protein 4.9 L Test 12/14/16 06:30 12/14/16 08:07 12/14/16 12:33 Basophils # 0.0 Basophils % 0.7 Blood Morphology Comment Eosinophils # 0.1 Eosinophils % 2.6 Hematocrit 27.2 L Hemoglobin 9.2 L Lymphocytes # 2.0 Lymphocytes % 53.1 H Mean Corpuscular Hemoglobin 33.9 H Mean Corpuscular Hemoglobin Concent 33.9 Mean Corpuscular Volume 99.9 Mean Platelet Volume 7.0 L Monocytes # 0.4 Monocytes % 10.9 Neutrophils # 1.2 L Neutrophils % 32.7 L Nucleated Red Blood Cells # 0.0 Nucleated Red Blood Cells % 0.0 Platelet Count 356 Red Blood Count 2.72 L Red Cell Distribution Width 15.3 H White Blood Count 3.8 #L Bedside Glucose 329 H 199 Medications Medications Current Medications Ondansetron HCl (Zofran Inj) 4 mg Q6H PRN IV NAUSEA AND/OR VOMITING; Start 12/03 at 22:00 Acetaminophen (Tylenol Liquid) 650 mg Q6H PRN PO PAIN LEVEL 1-3 OR FEVER; Start 12/03/16 at 22:00 Morphine Sulfate (morphine) 2 mg Q4H PRN IV PAIN LEVEL 7-10; Start 12/03/16 at 22:00 Famotidine (Pepcid Iv) 20 mg Q12 IV Last administered on 12/14/16 08:42; Admin Dose 20 MG; Start 12/04/16 at 09:00 Enoxaparin Sodium (Lovenox) 30 mg DAILY SC Last administered on 12/14/16 08:44 ; Admin Dose 30 MG; Start 12/04/16 at 09:00 Eye Lubricant (Akwa Oint) 1 applic TID BOTH EYES Last administered on 21:01; Admin Dose 1 APPLIC; Start 12/04/16 at 09:00 Bisacodyl (Dulcolax Supp) 10 mg Q24H PRN [place] PRN; Start 12/03/16 at 22:00 Docusate Sodium (Colace) 200 mg QHS PO Last administered on 12/13/16 21:01; Admin Dose 200 MG; Start 12/04/16 at 21:00 Acetaminophen/ Hydrocodone Bitart ([place] (10/325)) 1 tab Q6H PRN PO PAIN; Start 12/03/16 at 22:00 Magnesium Hydroxide (Milk Of Mag) 30 ml Q24H PRN PO PRN; Start 12/03/16 at 22:00 Olanzapine (Zyprexa) 5 mg QHS PO Last administered on 12/13/16 21:01; Admin Dose 5 MG; Start 12/04/16 at 21:00 Potassium Chloride (Klor-Con 20) 20 meq DAILY PO Last administered on 08:33; Admin Dose 20 MEQ; Start 12/04/16 at 09:00 Sodium Biphosphate/ Sodium Phosphate (Fleet Enema Pediatric) 66.6 ml DAILY PRN [place] CONSTIPATION; Start 12/03/16 at 22:00 Latanoprost (Xalatan) 1 drop HS BOTH EYES Last administered on 12/13/16 21:01 ; Admin Dose 1 DROP; Start 12/03/16 at 23:00 Miscellaneous Information 1 ea NOTE XX ; Start 12/03/16 at 23:00 Glucose (Glutose) 15 gm Q15M PRN PO DECREASED GLUCOSE; Start 12/03/16 at 23:00 Glucose (Glutose) 22.5 gm Q15M PRN PO DECREASED GLUCOSE; Start 12/03/16 at 23:00 Dextrose (D50w Syringe) 25 ml Q15M PRN IV DECREASED GLUCOSE Last administered on 12/11/16 17:40; Admin Dose 25 ML; Start 12/03/16 at 23:00 Dextrose (D50w Syringe) 50 ml Q15M PRN IV DECREASED GLUCOSE; Start 12/03/16 at 23:00 Glucagon (Glucagen) 1 mg Q15M PRN IM DECREASED GLUCOSE; Start 12/03/16 at 23:00 Glucose (Glutose) 15 gm Q15M PRN BUCCAL DECREASED GLUCOSE; Start 12/03/16 at 23: 00 Collagenase (Santyl) 1 applic DAILY TOP Last administered on 12/13/16 08:33; Admin Dose 1 APPLIC; Start 12/05/16 at 13:30 Collagenase (Santyl) 1 applic PRN PRN TOP .SOILING; Start 12/05/16 at 12:30 Diagnostic Test (Pha) (Accucheck) 1 ea 02 XX Last administered on 12/13/16 01: 34; Admin Dose 1 EA; Start 12/07/16 at 02:00 IV Flush 10 ml 10 ml PRN PRN IV IV PROTOCOL; Start 12/10/16 at 18:00 Dextrose/Sodium Chloride 1,000 ml @ 100 mls/hr Q10H IV Last administered on 06:16; Admin Dose 100 MLS/HR; Start 12/11/16 at 18:30 Meropenem 1 gm/ Sodium Chloride 100 ml @ 200 mls/hr Q12 IVPB Last administered on 12/14/16 08:48; Admin Dose 200 MLS/HR; Start 12/12/16 at 21:00 Fluconazole/ Sodium Chloride 50 ml @ 50 mls/hr Q24H IVPB Last administered on 15:54; Admin Dose 50 MLS/HR; Start 12/12/16 at 14:00 Vancomycin HCl/ Sodium Chloride (Vancocin/NS) 150 ml @ 75 mls/hr Q12H IVPB Last administered on 12/14/16 08:48; Admin Dose 75 MLS/HR; Start 12/13/16 at 08 :00 Miscellaneous Information (*Rx Drug Level Order Reminder*) VANCO TR LEVEL PRIOR... ONCE ONCE XX ; Start 12/14/16 at 19:00; Stop 12/14/16 at 19:01 Gamal Coronel DO Dec 14, 2016 13:43
[2016-12-14] MEDS ORDERED: MAGNESIUM SULFATE 3 GM in SOD CHLORIDE 0.9% 100 ML IVPB ONE (14:00)
[2016-12-14] MEDS: FLUCONAZOLE 100 MG/NS (PMX) 50 ML IVPB SCH (14:43)
[2016-12-14] MEDS: FUROSEMIDE 20 MG INJ IV SCH (17:24)
--- NOTE | 2016-12-14 18:49 | PN ---
Date/Time of Note Date/Time of Note DATE: 12/14/16 TIME: 18:46 Assessment/Plan VTE Prophylaxis VTE Prophylaxis Intervention: SCD's Lines/Catheters IV Catheter Type (from Nrs): PICC Line Central line still needed: Yes Urinary Cath still in place: Yes Reason Cath still needed: urinary retention Assessment/Plan Chief Complaint/Hosp Course ASSESSMENT AND PLAN: 1. Left basilar pneumonia. Continue meropenem and Vanco. 2. Sepsis secondary to pneumonia and urinary tract infection. Dr. Coffman is following patient in infectious disease consultation. 3. Escherichia coli extended-spectrum beta-lactamase urinary tract infection. 4. Diabetes mellitus type 2. Continue NovoLog per moderate algorithm sliding scale and Lantus. 5. History of schizophrenia and bipolar disorder. Continue patient on Zyprexa. 6. Bilateral lower extremity wound. Continue Santyl and local wound care. 7. Sinus tachycardia. Diastolic dysfunction with preserved ejection fraction per 2D echo. Dr Coronel is following from cardiology standpoint. 8. Anemia, patient is evaluated by Dr. Simpson in gastroenterology consultation , s/p endoscopy. Continue Pepcid for peptic ulcer disease prophylaxis and Lovenox for deep venous thrombosis prophylaxis. Further recommendations based on clinical course. Plan of care discussed with Dr. Aly. Problems: Subjective 24 Hr Interval Summary Free Text/Dictation Patient is awake alert, comfortable on room air, episodes of sinus tachycardia otherwise sinus rhythm most of the time, no fever nausea vomiting. Exam/Review of Systems Vital Signs Vitals Vital Signs Date Time Temp Pulse Resp B/P Pulse Ox O2 Delivery O2 Flow Rate FiO2 12/14/16 16:20 93 12/14/16 15:31 98.1 18 107/52 95 12/13/16 22:00 Room Air 12/13/16 14:54 21 Intake and Output 12/13/16 12/13/16 12/14/16 15:00 23:00 07:00 Intake Total 880 ml 670 ml 600 ml Output Total 370 ml 580 ml 1600 ml Balance 510 ml 90 ml -1000 ml Exam GENERAL: Well-developed, well-nourished female currently awake, alert. HEENT: Head is atraumatic, normocephalic. PERRLA. NECK: Supple. No mass, no thyromegaly. LUNGS: Clear bilaterally, slightly diminished at the bases. ABDOMEN: Round, soft, nondistended, nontender. Bowel sounds present. EXTREMITIES: No edema, clubbing, cyanosis. SKIN: There is no rash noted. NEUROLOGIC: The patient is alert and oriented to name and situation. Results Result Diagram: 12/14/16 0630 12/14/16 0600 Results 24 hrs Laboratory Tests Test 12/13/16 21:03 12/14/16 02:40 12/14/16 06:00 12/14/16 06:30 Bedside Glucose 194 239 H Alanine Aminotransferase (ALT/SGPT) 22 Albumin 2.1 L Albumin/Globulin Ratio 0.75 Alkaline Phosphatase 105 Anion Gap 11 Aspartate Amino Transf (AST/SGOT) 28 Blood Urea Nitrogen < 2 L Calcium Level 8.2 L Carbon Dioxide Level 28 Chloride Level 104 Creatinine 0.50 Direct Bilirubin 0.00 Globulin 2.80 Glucose Level 300 #H Indirect Bilirubin 0.2 Magnesium Level 1.6 L Potassium Level 4.1 Sodium Level 139 Total Bilirubin 0.2 Total Protein 4.9 L Basophils # 0.0 Basophils % 0.7 Blood Morphology Comment Eosinophils # 0.1 Eosinophils % 2.6 Hematocrit 27.2 L Hemoglobin 9.2 L Lymphocytes # 2.0 Lymphocytes % 53.1 H Mean Corpuscular Hemoglobin 33.9 H Mean Corpuscular Hemoglobin Concent 33.9 Mean Corpuscular Volume 99.9 Mean Platelet Volume 7.0 L Monocytes # 0.4 Monocytes % 10.9 Neutrophils # 1.2 L Neutrophils % 32.7 L Nucleated Red Blood Cells # 0.0 Nucleated Red Blood Cells % 0.0 Platelet Count 356 Red Blood Count 2.72 L Red Cell Distribution Width 15.3 H White Blood Count 3.8 #L Test 12/14/16 08:07 12/14/16 12:33 12/14/16 17:29 12/14/16 17:47 Bedside Glucose 329 H 199 40 *L 201 Medications Medications Current Medications Ondansetron HCl (Zofran Inj) 4 mg Q6H PRN IV NAUSEA AND/OR VOMITING; Start 12/03 at 22:00 Acetaminophen (Tylenol Liquid) 650 mg Q6H PRN PO PAIN LEVEL 1-3 OR FEVER; Start 12/03/16 at 22:00 Morphine Sulfate (morphine) 2 mg Q4H PRN IV PAIN LEVEL 7-10; Start 12/03/16 at 22:00 Famotidine (Pepcid Iv) 20 mg Q12 IV Last administered on 12/14/16 08:42; Admin Dose 20 MG; Start 12/04/16 at 09:00 Enoxaparin Sodium (Lovenox) 30 mg DAILY SC Last administered on 12/14/16 08:44 ; Admin Dose 30 MG; Start 12/04/16 at 09:00 Eye Lubricant (Akwa Oint) 1 applic TID BOTH EYES Last administered on 21:01; Admin Dose 1 APPLIC; Start 12/04/16 at 09:00 Bisacodyl (Dulcolax Supp) 10 mg Q24H PRN [place] PRN; Start 12/03/16 at 22:00 Docusate Sodium (Colace) 200 mg QHS PO Last administered on 12/13/16 21:01; Admin Dose 200 MG; Start 12/04/16 at 21:00 Acetaminophen/ Hydrocodone Bitart ([place] (10/325)) 1 tab Q6H PRN PO PAIN; Start 12/03/16 at 22:00 Magnesium Hydroxide (Milk Of Mag) 30 ml Q24H PRN PO PRN; Start 12/03/16 at 22:00 Olanzapine (Zyprexa) 5 mg QHS PO Last administered on 12/13/16 21:01; Admin Dose 5 MG; Start 12/04/16 at 21:00 Potassium Chloride (Klor-Con 20) 20 meq DAILY PO Last administered on 08:33; Admin Dose 20 MEQ; Start 12/04/16 at 09:00 Sodium Biphosphate/ Sodium Phosphate (Fleet Enema Pediatric) 66.6 ml DAILY PRN [place] CONSTIPATION; Start 12/03/16 at 22:00 Latanoprost (Xalatan) 1 drop HS BOTH EYES Last administered on 12/13/16 21:01 ; Admin Dose 1 DROP; Start 12/03/16 at 23:00 Miscellaneous Information 1 ea NOTE XX Last administered on 12/14/16 17:34; Admin Dose 1 EA; Start 12/03/16 at 23:00 Glucose (Glutose) 15 gm Q15M PRN PO DECREASED GLUCOSE; Start 12/03/16 at 23:00 Glucose (Glutose) 22.5 gm Q15M PRN PO DECREASED GLUCOSE; Start 12/03/16 at 23:00 Dextrose (D50w Syringe) 25 ml Q15M PRN IV DECREASED GLUCOSE Last administered on 12/11/16 17:40; Admin Dose 25 ML; Start 12/03/16 at 23:00 Dextrose (D50w Syringe) 50 ml Q15M PRN IV DECREASED GLUCOSE Last administered on 12/14/16 17:32; Admin Dose 50 ML; Start 12/03/16 at 23:00 Glucagon (Glucagen) 1 mg Q15M PRN IM DECREASED GLUCOSE; Start 12/03/16 at 23:00 Glucose (Glutose) 15 gm Q15M PRN BUCCAL DECREASED GLUCOSE; Start 12/03/16 at 23: 00 Collagenase (Santyl) 1 applic DAILY TOP Last administered on 12/13/16 08:33; Admin Dose 1 APPLIC; Start 12/05/16 at 13:30 Collagenase (Santyl) 1 applic PRN PRN TOP .SOILING; Start 12/05/16 at 12:30 Diagnostic Test (Pha) (Accucheck) 1 ea 02 XX Last administered on 12/13/16 01: 34; Admin Dose 1 EA; Start 12/07/16 at 02:00 IV Flush 10 ml 10 ml PRN PRN IV IV PROTOCOL; Start 12/10/16 at 18:00 Meropenem 1 gm/ Sodium Chloride 100 ml @ 200 mls/hr Q12 IVPB Last administered on 12/14/16 08:48; Admin Dose 200 MLS/HR; Start 12/12/16 at 21:00 Fluconazole/ Sodium Chloride 50 ml @ 50 mls/hr Q24H IVPB Last administered on 14:43; Admin Dose 50 MLS/HR; Start 12/12/16 at 14:00 Vancomycin HCl/ Sodium Chloride (Vancocin/NS) 150 ml @ 75 mls/hr Q12H IVPB Last administered on 12/14/16 08:48; Admin Dose 75 MLS/HR; Start 12/13/16 at 08 :00 Miscellaneous Information (*Rx Drug Level Order Reminder*) VANCO TR LEVEL PRIOR... ONCE ONCE XX ; Start 12/14/16 at 19:00; Stop 12/14/16 at 19:01 Pantoprazole (Protonix Iv) 40 mg DAILY@06 IV ; Start 12/15/16 at 06:00 DENA SALGUERO Dec 14, 2016 18:49
[2016-12-14] MEDS: DOCUSATE SODIUM 100 MG CAP PO SCH (21:00)
[2016-12-14] MEDS: OLANZAPINE 5 MG TAB PO SCH (21:04)
[2016-12-14] MEDS: LATANOPROST 0.005% 2.5 ML OPH BOTH EYES SCH (21:05)
[2016-12-15] VITALS (13 sets, daily range): BP systolic 99–139; BP diastolic 46–62; PULSE 78–115; RESP 16–18
[2016-12-15] MEDS: ACCUCHECK XX SCH (02:00)
[2016-12-15] MEDS: FUROSEMIDE 20 MG INJ IV SCH ×2 (05:51→17:48)
[2016-12-15] MEDS: PANTOPRAZOLE 40 MG INJ IV SCH (05:51)
[2016-12-15] MEDS ORDERED: VANCOMYCIN 1.25 GM in SOD CHLORIDE 0.9% 250 ML IVPB SCH ×2 (06:00→10:00)
--- NOTE | 2016-12-15 06:17 | PN ---
DATE: 12/14/2016 SUBJECTIVE: No changes overnight, no fevers. The patient is lying comfortably in bed. LABORATORY DATA: WBC today 3.8, BUN 2, creatinine 0.50. MICROBIOLOGY: Blood culture since 12/11/2016 remained negative. ANTIMICROBIALS: 1. Vancomycin. 2. Meropenem. 3. Fluconazole. INDWELLINGS: PICC line placed on 12/10/2016, Shields catheter. PHYSICAL EXAMINATION: GENERAL: This is a chronically ill-appearing, middle-aged white woman who is lethargic in no distre ss. HEENT: Head atraumatic, normocephalic. Sclerae anicteric. Buccal mucosa dry. NECK: Supple, trachea midline. CHEST: Rise symmetrical. Breath sounds diminished to bases. HEART: S1, S2. ABDOMEN: Soft. Bowel tones present. EXTREMITIES: Bilateral trace edema. ASSESSMENT: 1. Severe sepsis status post shock. 2. Healthcare-associated pneumonia, possibly aspiration type. 3. Status post Escherichia coli extended-spectrum beta-lactamase urinary tract infection. 4. Sinus tachycardia. 5. History of psychiatric disease. 6. Diabetes. 7. Anemia, status post EGD. PLAN: The patient remains stable, overall improving. Continue present care. Complete antibiotics. Continue anti-aspiration measures. Follow recommendation of consultants. Dictated By: MELODIE RAMIREZ WASTE DISPOSAL ATTENDANT for ALISSA LOWE/RUSTY Conf#: [id number] DID#: [id number]
--- NOTE | 2016-12-15 06:28 | GILP ---
DATE OF PROCEDURE: 12/13/2016 NAME OF FIRST PROCEDURE: Esophagogastroduodenoscopy. PREOPERATIVE DIAGNOSIS: Patient presenting with a history of severe anemia. Rule out gastrointesti nal bleeding due to peptic ulcer disease or malignancy. POSTOPERATIVE DIAGNOSIS: Diffuse moderate degree of gastritis in the stomach. No ulcer, no neoplasm . Esophagus and duodenum appeared normal. DESCRIPTION OF PROCEDURE: After informed written consent was obtained, the patient was asked to lie on the left lateral side. Intravenous anesthesia was given by the anesthesiologist, Dr. Miller. Whe n the patient became somnolent the Olympus video upper endoscope was introduced into the oropharynx, then into the esophagus. Mucosa of the esophagus appeared normal with no evidence of esophagitis, ulcers or neoplasm. The GE junction appeared to be normal. The scope at this time was advanced int o the stomach. Mucosa of the entire stomach showed evidence of edema, erythema and friability, with no ulcers, no neoplasm. Biopsy was done from the antrum, lesser curvature and the fundus to rule o ut H. pylori infection. Duodenum appeared normal up to the end of the third portion. No evidence o f ulcers or neoplasm noted. The endoscope at this time was withdrawn and no additional abnormalitie s were detected and the procedure was terminated. PLAN: Recommend Protonix to be continued. SECOND PROCEDURE: Colonoscopy up to cecum. PREOPERATIVE DIAGNOSIS: The patient presenting with a history of severe anemia. Rule out colorectal neoplasm, arteriovenous malformation, ulcer disease. POSTOPERATIVE DIAGNOSIS: Minimal to moderate degree of hemorrhoids. Rest of the colon appeared norm al. After informed written consent was obtained, the patient was asked to lie on the left lateral side. Intravenous anesthesia was given by the anesthesiologist, Dr. Miller. When the patient became somnol ent, the Olympus video colonoscope was introduced into the rectum and the scope was advanced all the way to the cecum. The entire colon appeared perfectly normal, with no mucosal abnormality and no A VMs, no neoplasm noted. The endoscope at this time was withdrawn. On the way out the above finding s were confirmed, except minimal internal hemorrhoids and a moderate degree of external hemorrhoids were noted and the procedure was terminated. PLAN: Recommend to observe the patient closely. Dictated By: ANTONY MACHADO/RUSTY Conf#: [id number] DID#: [id number] CC: LUZMA HYMAN MD; VIVIENNE MONTILLA MD;*End*
[2016-12-15 06:47] LABS: CALCIUM 8.3 mg/dl (8.4-10.2); CREATININE 0.5 mg/dl (0.44-1.00)
[2016-12-15 06:54] LABS: BASOPHILS % 0.5 % (0.0-2.0); EOSINOPHILS # 0.1 10^3/ul (0.0-0.5); EOSINOPHILS % 2.9 % (0.0-7.0); HEMATOCRIT 26.8 % (37.0-47.0); HEMOGLOBIN 9.2 g/dl (12.0-16.0); LYMPHOCYTES # 2.3 10^3/ul (0.8-2.9); LYMPHOCYTES % 47.4 % (15.0-51.0); MEAN CORPUSCULAR HEMOGLOBIN 34.1 pg (29.0-33.0); MEAN CORPUSCULAR HGB CONC 34.2 g/dl (32.0-37.0); MEAN CORPUSCULAR VOLUME 99.7 fl (82.0-101.0); MEAN PLATELET VOLUME 6.7 fl (7.4-10.4); MONOCYTE # 0.4 10^3/ul (0.3-0.9); MONOCYTES % 7.5 % (0.0-11.0); NEUTROPHIL # 2.1 10^3/ul (1.6-7.5); NEUTROPHILS % 41.7 % (39.0-77.0); PLATELET COUNT 370 10^3/UL (140-440); RED BLOOD COUNT 2.69 10^6/ul (4.20-5.40); RED CELL DISTRIBUTION WIDTH 15.6 % (11.5-14.5); UNCORRECTED WBC 4.9 10^3/ul (4.8-10.8); WHITE BLOOD COUNT 4.9 10^3/ul (4.8-10.8)
[2016-12-15 07:28] LABS: CONDITION 1; LH ANALYZER COMMENTS 1
[2016-12-15] MEDS: MEROPENEM 1 GM in SOD CHLORIDE 0.9% 100 ML IVPB SCH (08:28)
[2016-12-15] MEDS: OCULAR LUBRICANT 3.5 GM OPH OINT BOTH EYES SCH ×3 (08:28→21:55)
[2016-12-15] MEDS: POTASSIUM CHLORIDE (SR) 20 MEQ TAB PO SCH (08:28)
[2016-12-15] MEDS: FAMOTIDINE 20 MG INJ IV SCH ×2 (08:28→21:56)
[2016-12-15] MEDS: INSULIN ASPART [NOVOLOG] 3 ML PEN SC SCH ×4 (08:31→22:02)
[2016-12-15] MEDS: ENOXAPARIN 30 MG/0.3 ML SYG SC SCH (08:32)
[2016-12-15] MEDS: COLLAGENASE 30 GM TUBE TOP SCH (08:34)
--- NOTE | 2016-12-15 10:51 | CONS ---
Date/Time of Note Date/Time of Note DATE: 12/15/16 TIME: 10:50 Assessment/Plan Assessment/Plan Chief Complaint/Hosp Course ID PROGRESS NOTE TOTAL ABX DAY # => Vanco IV #14, Merrem #4, Diflucan s/p Cefepime 12/03 - 12/12 = 10 days 24H INTERVAL SUMMARY * .Awake, alert, responsive, bedbound, w/general weakness, limited po intake soft diet, no complaints, no fevers, no cough * s/p 12/13/16 EDG + COLONOSCOPY findings: (+)Gastritis & (+)Hemorrhoids * Gastric biopsy: -- Chronic gastritis, mild, involving oxyntic and antral mucosa. -- No Helicobacter pylori organisms are identified in a Giemsa stain ( positive control concurrently reviewed). -- There is no evidence of malignancy. PHYSICAL EXAMINATION: GENERAL: 56 yo F HEENT: Unremarkable NECK: Supple, trachea midline. CHEST: Rise symmetrical without dyspnea HEART: RRR ABDOMEN: Soft EXTREMITIES: Warm, no edema with bilateral heel decubs SKIN: Stage II sacral = see photos ID ASSESSMENT: 56 yo F w/PMHX TIA, SZs Disorder,Psychiatric DX w/debility, bedbound status admit with: 1. s/p Acute severe sepsis status post shock due to #2 #3 2. Left middle lobe PNA = Healthcare-associated pneumonia, possibly aspiration type. 3. Status post Escherichia coli extended-spectrum beta-lactamase urinary tract infection. 4. Sinus tachycardia. 5. Diabetes T2. 6. Anemia, status post EGD. 7. DECUBS: * Bilateral lower extremity w/wounds-> (-)BLEXT DVT by US * Bi-sacrococcygeal stage II INVASIVES: *PICC CURRENT ABX: Vanco IV, Merrem, Diflucan s/p ID RECOMMENDATIONS: Total ABX day #14 for concern ESBL UTI and ASP Left Middle Lobe HCAP = DC ABX today and observe ASP Precautions Off load wounds -> Local wound care ? Physical Therapy candidate ? . Problems: Consultation Date/Type/Reason Admit Date/Time Dec 03, 2016 at 22:01 Initial Consult Date Type of Consultation: ID Exam/Review of Systems Vital Signs Vitals Vital Signs Date Time Temp Pulse Resp B/P Pulse Ox O2 Delivery O2 Flow Rate FiO2 12/15/16 08:21 97 12/15/16 07:01 97.9 17 99/59 96 12/14/16 20:00 Room Air 12/13/16 14:54 21 Intake and Output 12/14/16 12/14/16 12/15/16 15:00 23:00 07:00 Intake Total 700 ml 950 ml 250 ml Output Total 900 ml 1800 ml Balance 700 ml 50 ml -1550 ml Results Result Diagram: 12/15/16 0555 12/15/16 0555 Results 24 hrs Laboratory Tests Test 12/14/16 12:33 12/14/16 17:29 12/14/16 17:47 12/14/16 19:10 Bedside Glucose 199 40 *L 201 Vancomycin Level Trough 24.0 *H Test 12/14/16 21:08 12/15/16 04:13 12/15/16 05:55 12/15/16 08:09 Bedside Glucose 121 203 303 H Anion Gap 10 Basophils # 0.0 Basophils % 0.5 Blood Morphology Comment Blood Urea Nitrogen 2 L Calcium Level 8.3 L Carbon Dioxide Level 30 Chloride Level 104 Creatinine 0.50 Eosinophils # 0.1 Eosinophils % 2.9 Glucose Level 250 H Hematocrit 26.8 L Hemoglobin 9.2 L Lymphocytes # 2.3 Lymphocytes % 47.4 Magnesium Level 2.2 Mean Corpuscular Hemoglobin 34.1 H Mean Corpuscular Hemoglobin Concent 34.2 Mean Corpuscular Volume 99.7 Mean Platelet Volume 6.7 L Monocytes # 0.4 Monocytes % 7.5 Neutrophils # 2.1 Neutrophils % 41.7 Nucleated Red Blood Cells # 0.0 Nucleated Red Blood Cells % 0.0 Platelet Count 370 Potassium Level 4.0 Red Blood Count 2.69 L Red Cell Distribution Width 15.6 H Sodium Level 140 White Blood Count 4.9 # Medications Medications Current Medications Ondansetron HCl (Zofran Inj) 4 mg Q6H PRN IV NAUSEA AND/OR VOMITING; Start 12/03 at 22:00 Acetaminophen (Tylenol Liquid) 650 mg Q6H PRN PO PAIN LEVEL 1-3 OR FEVER; Start 12/03/16 at 22:00 Morphine Sulfate (morphine) 2 mg Q4H PRN IV PAIN LEVEL 7-10; Start 12/03/16 at 22:00 Famotidine (Pepcid Iv) 20 mg Q12 IV Last administered on 12/15/16t 08:28; Admin Dose 20 MG; Start 12/04/16 at 09:00 Enoxaparin Sodium (Lovenox) 30 mg DAILY SC Last administered on 12/15/16 08:32 ; Admin Dose 30 MG; Start 12/04/16 at 09:00 Eye Lubricant (Akwa Oint) 1 applic TID BOTH EYES Last administered on 08:28; Admin Dose 1 APPLIC; Start 12/04/16 at 09:00 Bisacodyl (Dulcolax Supp) 10 mg Q24H PRN [place] PRN; Start 12/03/16 at 22:00 Docusate Sodium (Colace) 200 mg QHS PO Last administered on 12/13/16 21:01; Admin Dose 200 MG; Start 12/04/16 at 21:00 Acetaminophen/ Hydrocodone Bitart ([place] (10/325)) 1 tab Q6H PRN PO PAIN; Start 12/03/16 at 22:00 Magnesium Hydroxide (Milk Of Mag) 30 ml Q24H PRN PO PRN; Start 12/03/16 at 22:00 Olanzapine (Zyprexa) 5 mg QHS PO Last administered on 12/14/16 21:04; Admin Dose 5 MG; Start 12/04/16 at 21:00 Potassium Chloride (Klor-Con 20) 20 meq DAILY PO Last administered on 08:28; Admin Dose 20 MEQ; Start 12/04/16 at 09:00 Sodium Biphosphate/ Sodium Phosphate (Fleet Enema Pediatric) 66.6 ml DAILY PRN [place] CONSTIPATION; Start 12/03/16 at 22:00 Latanoprost (Xalatan) 1 drop HS BOTH EYES Last administered on 12/14/16 21:05 ; Admin Dose 1 DROP; Start 12/03/16 at 23:00 Miscellaneous Information 1 ea NOTE XX Last administered on 12/14/16 17:34; Admin Dose 1 EA; Start 12/03/16 at 23:00 Glucose (Glutose) 15 gm Q15M PRN PO DECREASED GLUCOSE; Start 12/03/16 at 23:00 Glucose (Glutose) 22.5 gm Q15M PRN PO DECREASED GLUCOSE; Start 12/03/16 at 23:00 Dextrose (D50w Syringe) 25 ml Q15M PRN IV DECREASED GLUCOSE Last administered on 12/11/16 17:40; Admin Dose 25 ML; Start 12/03/16 at 23:00 Dextrose (D50w Syringe) 50 ml Q15M PRN IV DECREASED GLUCOSE Last administered on 12/14/16 17:32; Admin Dose 50 ML; Start 12/03/16 at 23:00 Glucagon (Glucagen) 1 mg Q15M PRN IM DECREASED GLUCOSE; Start 12/03/16 at 23:00 Glucose (Glutose) 15 gm Q15M PRN BUCCAL DECREASED GLUCOSE; Start 12/03/16 at 23: 00 Collagenase (Santyl) 1 applic DAILY TOP Last administered on 12/13/16 08:33; Admin Dose 1 APPLIC; Start 12/05/16 at 13:30 Collagenase (Santyl) 1 applic PRN PRN TOP .SOILING; Start 12/05/16 at 12:30 Diagnostic Test (Pha) (Accucheck) 1 ea 02 XX Last administered on 12/13/16 01: 34; Admin Dose 1 EA; Start 12/07/16 at 02:00 IV Flush 10 ml 10 ml PRN PRN IV IV PROTOCOL; Start 12/10/16 at 18:00 Meropenem 1 gm/ Sodium Chloride 100 ml @ 200 mls/hr Q12 IVPB Last administered on 12/15/16 08:28; Admin Dose 200 MLS/HR; Start 12/12/16 at 21:00 Fluconazole/ Sodium Chloride (Diflucan 100 Mg/ NS (Pmx)) 50 ml @ 50 mls/hr Q24H IVPB Last administered on 12/14/16 14:43; Admin Dose 50 MLS/HR; Start at 14:00 Pantoprazole 40 mg 40 mg DAILY@06 IV Last administered on 12/15/16 05:51; Admin Dose 40 MG; Start 12/15/16 at 06:00 Vancomycin HCl/ Sodium Chloride (Vancocin/NS) 250 ml @ 83.333 mls/ hr Q24H IVPB Last administered on 12/15/16 09:54; Admin Dose 83.333 MLS/HR; Start at 10:00 ELIZABETH CHEEK NP Dec 15, 2016 10:51
[2016-12-15] MEDS: FLUCONAZOLE 100 MG/NS (PMX) 50 ML IVPB SCH (13:39)
--- NOTE | 2016-12-15 16:05 | PN ---
Date/Time of Note Date/Time of Note DATE: 12/15/16 TIME: 16:04 Assessment/Plan Lines/Catheters IV [facility] PICC Line Urinary Cath still in place: Yes Assessment/Plan Assessment/Plan 1. Left basilar pneumonia. Continue meropenem and Vanco. 2. Sepsis secondary to pneumonia and urinary tract infection. - per Dr. Coffman in infectious disease consultation. - Continue pressors for hemodynamic support, IV fluids and ICU care. 3. Escherichia coli extended-spectrum beta-lactamase urinary tract infection. 4. Diabetes mellitus type 2. - glycemic control - Continue NovoLog per moderate algorithm sliding scale and Lantus. 5. History of schizophrenia and bipolar disorder. - no acute issue - Continue patient on Zyprexa. 6. Bilateral lower extremity wound. Continue Santyl and local wound care. 7. Sinus tachycardia. Diastolic dysfunction with preserved ejection fraction per 2D echo. - per Dr Coronel from cardiology standpoint. 8. Anemia, patient is evaluated by Dr. Simpson in gastroenterology consultation - per gi - upper and lower endoscopy today. 9. Hypomagnesium- replet Mg, am Mag lab 10. Edema bilateral hands- elevate all times 11. Edema bilateral feet- elevate all times Continue Pepcid for peptic ulcer disease prophylaxis and Lovenox for deep venous thrombosis prophylaxis. Further recommendations based on clinical course. Total critical time spent for patient is 35 mins.Plan of care discussed with Dr. Aly. Subjective 24 Hr Interval Summary Free Text/Dictation NAD. UP in bed for eating. dw staff ENT: no complaints Respiratory: no complaints Gastrointestinal: no complaints Genitourinary: no complaints Musculoskeletal: no complaints Skin: no complaints Neurologic: no complaints Exam/Review of Systems Vital Signs Vitals Vital Signs Date Time Temp Pulse Resp B/P Pulse Ox O2 Delivery O2 Flow Rate FiO2 12/15/16 15:22 98.0 107 18 101/57 95 12/14/16 20:00 Room Air 12/13/16 14:54 21 Intake and Output 12/14/16 12/14/16 12/15/16 15:00 23:00 07:00 Intake Total 700 ml 950 ml 250 ml Output Total 900 ml 1800 ml Balance 700 ml 50 ml -1550 ml Exam Constitutional: alert, well developed Psych: nl mood/affect Head: atraumatic Eyes: EOMI, nl sclera ENMT: nl external ears & nose Neck: non-tender Respiratory: diminished breath sounds Cardiovascular: nl pulses Gastrointestinal: non-tender, soft Musculoskeletal: nl extremities to inspection Neurological: nl speech Skin: nl turgor Results Result Diagram: 12/15/16 0555 12/15/16 0555 Results 24 hrs Laboratory Tests Test 12/14/16 17:29 12/14/16 17:47 12/14/16 19:10 12/14/16 21:08 Bedside Glucose 40 *L 201 121 Vancomycin Level Trough 24.0 *H Test 12/15/16 04:13 12/15/16 05:55 12/15/16 08:09 12/15/16 11:53 Bedside Glucose 203 303 H 244 H Anion Gap 10 Basophils # 0.0 Basophils % 0.5 Blood Morphology Comment Blood Urea Nitrogen 2 L Calcium Level 8.3 L Carbon Dioxide Level 30 Chloride Level 104 Creatinine 0.50 Eosinophils # 0.1 Eosinophils % 2.9 Glucose Level 250 H Hematocrit 26.8 L Hemoglobin 9.2 L Lymphocytes # 2.3 Lymphocytes % 47.4 Magnesium Level 2.2 Mean Corpuscular Hemoglobin 34.1 H Mean Corpuscular Hemoglobin Concent 34.2 Mean Corpuscular Volume 99.7 Mean Platelet Volume 6.7 L Monocytes # 0.4 Monocytes % 7.5 Neutrophils # 2.1 Neutrophils % 41.7 Nucleated Red Blood Cells # 0.0 Nucleated Red Blood Cells % 0.0 Platelet Count 370 Potassium Level 4.0 Red Blood Count 2.69 L Red Cell Distribution Width 15.6 H Sodium Level 140 White Blood Count 4.9 # Medications Medications Current Medications Ondansetron HCl (Zofran Inj) 4 mg Q6H PRN IV NAUSEA AND/OR VOMITING; Start 12/03 at 22:00 Acetaminophen (Tylenol Liquid) 650 mg Q6H PRN PO PAIN LEVEL 1-3 OR FEVER; Start 12/03/16 at 22:00 Morphine Sulfate (morphine) 2 mg Q4H PRN IV PAIN LEVEL 7-10; Start 12/03/16 at 22:00 Famotidine (Pepcid Iv) 20 mg Q12 IV Last administered on 12/15/16 08:28; Admin Dose 20 MG; Start 12/04/16 at 09:00 Enoxaparin Sodium (Lovenox) 30 mg DAILY SC Last administered on 12/15/16 08:32 ; Admin Dose 30 MG; Start 12/04/16 at 09:00 Eye Lubricant (Akwa Oint) 1 applic TID BOTH EYES Last administered on 12:10; Admin Dose 1 APPLIC; Start 12/04/16 at 09:00 Bisacodyl (Dulcolax Supp) 10 mg Q24H PRN [place] PRN; Start 12/03/16 at 22:00 Docusate Sodium (Colace) 200 mg QHS PO Last administered on 12/13/16 21:01; Admin Dose 200 MG; Start 12/04/16 at 21:00 Acetaminophen/ Hydrocodone Bitart ([place] (10)) 1 tab Q6H PRN PO PAIN; Start 12/03/16 at 22:00 Magnesium Hydroxide (Milk Of Mag) 30 ml Q24H PRN PO PRN; Start 12/03/16 at 22:00 Olanzapine (Zyprexa) 5 mg QHS PO Last administered on 12/14/16 21:04; Admin Dose 5 MG; Start 12/04/16 at 21:00 Potassium Chloride (Klor-Con 20) 20 meq DAILY PO Last administered on 08:28; Admin Dose 20 MEQ; Start 12/04/16 at 09:00 Sodium Biphosphate/ Sodium Phosphate (Fleet Enema Pediatric) 66.6 ml DAILY PRN [place] CONSTIPATION; Start 12/03/16 at 22:00 Latanoprost (Xalatan) 1 drop HS BOTH EYES Last administered on 12/14/16 21:05 ; Admin Dose 1 DROP; Start 12/03/16 at 23:00 Miscellaneous Information 1 ea NOTE XX Last administered on 12/14/16 17:34; Admin Dose 1 EA; Start 12/03/16 at 23:00 Glucose (Glutose) 15 gm Q15M PRN PO DECREASED GLUCOSE; Start 12/03/16 at 23:00 Glucose (Glutose) 22.5 gm Q15M PRN PO DECREASED GLUCOSE; Start 12/03/16 at 23:00 Dextrose (D50w Syringe) 25 ml Q15M PRN IV DECREASED GLUCOSE Last administered on 12/11/16 17:40; Admin Dose 25 ML; Start 12/03/16 at 23:00 Dextrose (D50w Syringe) 50 ml Q15M PRN IV DECREASED GLUCOSE Last administered on 12/14/16 17:32; Admin Dose 50 ML; Start 12/03/16 at 23:00 Glucagon (Glucagen) 1 mg Q15M PRN IM DECREASED GLUCOSE; Start 12/03/16 at 23:00 Glucose (Glutose) 15 gm Q15M PRN BUCCAL DECREASED GLUCOSE; Start 12/03/16 at 23: 00 Collagenase (Santyl) 1 applic DAILY TOP Last administered on 12/13/16 08:33; Admin Dose 1 APPLIC; Start 12/05/16 at 13:30 Collagenase (Santyl) 1 applic PRN PRN TOP .SOILING; Start 12/05/16 at 12:30 Diagnostic Test (Pha) (Accucheck) 1 ea 02 XX Last administered on 12/13/16 01: 34; Admin Dose 1 EA; Start 12/07/16 at 02:00 IV Flush (NS 10 ml) 10 ml PRN PRN IV IV PROTOCOL; Start 12/10/16 at 18:00 Pantoprazole (Protonix Iv) 40 mg DAILY@06 IV Last administered on 12/15/16 05: 51; Admin Dose 40 MG; Start 12/15/16 at 06:00 MICHAEL COLINDRES Dec 15, 2016 16:05
--- NOTE | 2016-12-15 16:30 | CONS ---
Date/Time of Note Date/Time of Note DATE: 12/15/16 TIME: 16:28 Assessment/Plan Assessment/Plan Chief Complaint/Hosp Course Severe sepsis with hypotension, improved Likely PNA and UTI Sinus tachycardia Preserved ejection fraction Psychiatric disorder Problems: Additional Assessment/Plan continue current cardiac mds fluid status improved Consultation Date/Type/Reason Admit Date/Time Dec 03, 2016 at 22:01 Initial Consult Date Type of Consultation: cv 24 HR Interval Summary Free Text/Dictation weak, no chest pain, no sob Detailed Summary Respiratory: no complaints Cardiovascular: no complaints Gastrointestinal: no complaints Musculoskeletal: no complaints Skin: no complaints Exam/Review of Systems Vital Signs Vitals Vital Signs Date Time Temp Pulse Resp B/P Pulse Ox O2 Delivery O2 Flow Rate FiO2 12/15/16 15:22 98.0 107 18 101/57 95 12/14/16 20:00 Room Air 12/13/16 14:54 21 Intake and Output 12/14/16 12/14/16 12/15/16 15:00 23:00 07:00 Intake Total 700 ml 950 ml 250 ml Output Total 900 ml 1800 ml Balance 700 ml 50 ml -1550 ml Exam Constitutional: frail Head: atraumatic, normocephalic Neck: supple Respiratory: clear to auscultation Cardiovascular: regular rate and rhythm Gastrointestinal: soft Extremities: normal pulses Results Result Diagram: 12/15/16 0555 12/15/16 0555 Results 24 hrs Laboratory Tests Test 12/14/16 17:29 12/14/16 17:47 12/14/16 19:10 12/14/16 21:08 Bedside Glucose 40 *L 201 121 Vancomycin Level Trough 24.0 *H Test 12/15/16 04:13 12/15/16 05:55 12/15/16 08:09 12/15/16 11:53 Bedside Glucose 203 303 H 244 H Anion Gap 10 Basophils # 0.0 Basophils % 0.5 Blood Morphology Comment Blood Urea Nitrogen 2 L Calcium Level 8.3 L Carbon Dioxide Level 30 Chloride Level 104 Creatinine 0.50 Eosinophils # 0.1 Eosinophils % 2.9 Glucose Level 250 H Hematocrit 26.8 L Hemoglobin 9.2 L Lymphocytes # 2.3 Lymphocytes % 47.4 Magnesium Level 2.2 Mean Corpuscular Hemoglobin 34.1 H Mean Corpuscular Hemoglobin Concent 34.2 Mean Corpuscular Volume 99.7 Mean Platelet Volume 6.7 L Monocytes # 0.4 Monocytes % 7.5 Neutrophils # 2.1 Neutrophils % 41.7 Nucleated Red Blood Cells # 0.0 Nucleated Red Blood Cells % 0.0 Platelet Count 370 Potassium Level 4.0 Red Blood Count 2.69 L Red Cell Distribution Width 15.6 H Sodium Level 140 White Blood Count 4.9 # Medications Medications Current Medications Ondansetron HCl (Zofran Inj) 4 mg Q6H PRN IV NAUSEA AND/OR VOMITING; Start 12/03 at 22:00 Acetaminophen (Tylenol Liquid) 650 mg Q6H PRN PO PAIN LEVEL 1-3 OR FEVER; Start 12/03/16 at 22:00 Morphine Sulfate (morphine) 2 mg Q4H PRN IV PAIN LEVEL 7-10; Start 12/03/16 at 22:00 Famotidine (Pepcid Iv) 20 mg Q12 IV Last administered on 12/15/16 08:28; Admin Dose 20 MG; Start 12/04/16 at 09:00 Enoxaparin Sodium (Lovenox) 30 mg DAILY SC Last administered on 12/15/16 08:32 ; Admin Dose 30 MG; Start 12/04/16 at 09:00 Eye Lubricant (Akwa Oint) 1 applic TID BOTH EYES Last administered on 12:10; Admin Dose 1 APPLIC; Start 12/04/16 at 09:00 Bisacodyl (Dulcolax Supp) 10 mg Q24H PRN [place] PRN; Start 12/03/16 at 22:00 Docusate Sodium (Colace) 200 mg QHS PO Last administered on 12/13/16 21:01; Admin Dose 200 MG; Start 12/04/16 at 21:00 Acetaminophen/ Hydrocodone Bitart ([place] (10/325)) 1 tab Q6H PRN PO PAIN; Start 12/03/16 at 22:00 Magnesium Hydroxide (Milk Of Mag) 30 ml Q24H PRN PO PRN; Start 12/03/16 at 22:00 Olanzapine (Zyprexa) 5 mg QHS PO Last administered on 12/14/16 21:04; Admin Dose 5 MG; Start 12/04/16 at 21:00 Potassium Chloride (Klor-Con 20) 20 meq DAILY PO Last administered on 08:28; Admin Dose 20 MEQ; Start 12/04/16 at 09:00 Sodium Biphosphate/ Sodium Phosphate (Fleet Enema Pediatric) 66.6 ml DAILY PRN [place] CONSTIPATION; Start 12/03/16 at 22:00 Latanoprost (Xalatan) 1 drop HS BOTH EYES Last administered on 12/14/16 21:05 ; Admin Dose 1 DROP; Start 12/03/16 at 23:00 Miscellaneous Information 1 ea NOTE XX Last administered on 12/14/16 17:34; Admin Dose 1 EA; Start 12/03/16 at 23:00 Glucose (Glutose) 15 gm Q15M PRN PO DECREASED GLUCOSE; Start 12/03/16 at 23:00 Glucose (Glutose) 22.5 gm Q15M PRN PO DECREASED GLUCOSE; Start 12/03/16 at 23:00 Dextrose (D50w Syringe) 25 ml Q15M PRN IV DECREASED GLUCOSE Last administered on 12/11/16 17:40; Admin Dose 25 ML; Start 12/03/16 at 23:00 Dextrose (D50w Syringe) 50 ml Q15M PRN IV DECREASED GLUCOSE Last administered on 12/14/16 17:32; Admin Dose 50 ML; Start 12/03/16 at 23:00 Glucagon (Glucagen) 1 mg Q15M PRN IM DECREASED GLUCOSE; Start 12/03/16 at 23:00 Glucose (Glutose) 15 gm Q15M PRN BUCCAL DECREASED GLUCOSE; Start 12/03/16 at 23: 00 Collagenase (Santyl) 1 applic DAILY TOP Last administered on 12/13/16 08:33; Admin Dose 1 APPLIC; Start 12/05/16 at 13:30 Collagenase (Santyl) 1 applic PRN PRN TOP .SOILING; Start 12/05/16 at 12:30 Diagnostic Test (Pha) (Accucheck) 1 ea 02 XX Last administered on 12/13/16 01: 34; Admin Dose 1 EA; Start 12/07/16 at 02:00 IV Flush (NS 10 ml) 10 ml PRN PRN IV IV PROTOCOL; Start 12/10/16 at 18:00 Pantoprazole (Protonix Iv) 40 mg DAILY@06 IV Last administered on 12/15/16 05: 51; Admin Dose 40 MG; Start 12/15/16 at 06:00 REYNA PADILLA MD Dec 15, 2016 16:30
[2016-12-15] MEDS: DEXTROSE 50% 50 ML SYRINGE IV PRN (18:02)
[2016-12-15] MEDS: DOCUSATE SODIUM 100 MG CAP PO SCH (21:55)
[2016-12-15] MEDS: OLANZAPINE 5 MG TAB PO SCH (21:55)
[2016-12-15] MEDS: LATANOPROST 0.005% 2.5 ML OPH BOTH EYES SCH (21:56)
[2016-12-16] VITALS (12 sets, daily range): BP systolic 94–112; BP diastolic 51–58; PULSE 92–115; RESP 16–18
[2016-12-16] MEDS: ACCUCHECK XX SCH (02:00)
[2016-12-16] MEDS: PANTOPRAZOLE 40 MG INJ IV SCH (05:35)
[2016-12-16] MEDS: FUROSEMIDE 20 MG INJ IV SCH (05:36)
[2016-12-16 06:15] LABS: BASOPHILS % 0.7 % (0.0-2.0); EOSINOPHILS # 0.2 10^3/ul (0.0-0.5); EOSINOPHILS % 2.9 % (0.0-7.0); HEMATOCRIT 26.3 % (37.0-47.0); HEMOGLOBIN 8.8 g/dl (12.0-16.0); LYMPHOCYTES # 2.8 10^3/ul (0.8-2.9); LYMPHOCYTES % 54.4 % (15.0-51.0); MEAN CORPUSCULAR HEMOGLOBIN 33.6 pg (29.0-33.0); MEAN CORPUSCULAR HGB CONC 33.6 g/dl (32.0-37.0); MEAN CORPUSCULAR VOLUME 100.1 fl (82.0-101.0); MEAN PLATELET VOLUME 6.6 fl (7.4-10.4); MONOCYTE # 0.4 10^3/ul (0.3-0.9); NEUTROPHIL # 1.7 10^3/ul (1.6-7.5); PLATELET COUNT 377 10^3/UL (140-440); RED BLOOD COUNT 2.63 10^6/ul (4.20-5.40); RED CELL DISTRIBUTION WIDTH 15.8 % (11.5-14.5); UNCORRECTED WBC 5.1 10^3/ul (4.8-10.8); WHITE BLOOD COUNT 5.1 10^3/ul (4.8-10.8)
[2016-12-16 06:27] LABS: POTASSIUM 3.7 mmol/L (3.5-5.1)
[2016-12-16 06:29] LABS: CREATININE 0.53 mg/dl (0.44-1.00)
[2016-12-16 06:30] LABS: CALCIUM 8.3 mg/dl (8.4-10.2)
[2016-12-16 06:58] LABS: CONDITION 1; LH ANALYZER COMMENTS 1
[2016-12-16] MEDS: INSULIN ASPART [NOVOLOG] 3 ML PEN SC SCH ×4 (08:35→20:42)
[2016-12-16] MEDS: COLLAGENASE 30 GM TUBE TOP SCH (09:00)
[2016-12-16] MEDS: FAMOTIDINE 20 MG INJ IV SCH ×2 (09:42→20:41)
[2016-12-16] MEDS: POTASSIUM CHLORIDE (SR) 20 MEQ TAB PO SCH (09:42)
[2016-12-16] MEDS: OCULAR LUBRICANT 3.5 GM OPH OINT BOTH EYES SCH ×3 (09:43→20:41)
[2016-12-16] MEDS: ENOXAPARIN 30 MG/0.3 ML SYG SC SCH (10:18)
--- NOTE | 2016-12-16 14:49 | PN ---
Date/Time of Note Date/Time of Note DATE: 12/16/16 TIME: 14:44 Assessment/Plan VTE Prophylaxis VTE Prophylaxis Intervention: other Lines/Catheters IV Catheter Type (from [facility]): PICC Line Urinary Cath still in place: Yes Assessment/Plan Assessment/Plan 1. Left basilar pneumonia. Continue meropenem and Vanco. 2. Sepsis secondary to pneumonia and urinary tract infection. - per Dr. Coffman in infectious disease consultation. - Continue pressors for hemodynamic support, IV fluids and ICU care. 3. Escherichia coli extended-spectrum beta-lactamase urinary tract infection. 4. Diabetes mellitus type 2. - glycemic control - Continue NovoLog per moderate algorithm sliding scale and Lantus. 5. History of schizophrenia and bipolar disorder. - no acute issue - Continue patient on Zyprexa. 6. Bilateral lower extremity wound. Continue Santyl and local wound care. 7. Sinus tachycardia. Diastolic dysfunction with preserved ejection fraction per 2D echo. - per Dr Coronel from cardiology standpoint. 8. Anemia, patient is evaluated by Dr. Simpson in gastroenterology consultation - per gi - upper and lower endoscopy today. 9. Hypomagnesium- replet Mg, am Mag lab 10. Edema bilateral hands- elevate all times 11. Edema bilateral feet- elevate all times Continue Pepcid for peptic ulcer disease prophylaxis and Lovenox for deep venous thrombosis prophylaxis. Further recommendations based on clinical course. Total critical time spent for patient is 35 mins.Plan of care discussed with Dr. Aly. Exam/Review of Systems Vital Signs Vitals Vital Signs Date Time Temp Pulse Resp B/P Pulse Ox O2 Delivery O2 Flow Rate FiO2 12/16/16 12:25 102 12/16/16 11:19 97.6 18 94/51 96 12/14/16 20:00 Room Air 12/13/16 14:54 21 Intake and Output 12/15/16 12/15/16 12/16/16 15:00 23:00 07:00 Intake Total 1050 ml 50 ml Output Total 1200 ml 750 ml Balance -150 ml -700 ml Exam Constitutional: alert Psych: nl mood/affect Eyes: EOMI, PERRL, nl sclera ENMT: nl external ears & nose Respiratory: diminished breath sounds Cardiovascular: nl pulses Gastrointestinal: non-tender, soft Neurological: nl speech Skin: nl turgor Results Result Diagram: 12/16/16 0535 12/16/16 0535 Results 24 hrs Laboratory Tests Test 12/15/16 17:46 12/15/16 17:53 12/15/16 18:25 12/15/16 18:41 Bedside Glucose 57 L 60 L 152 162 Test 12/15/16 21:53 12/16/16 02:38 12/16/16 05:35 12/16/16 08:14 Bedside Glucose 232 H 267 H 311 H Anion Gap 10 Basophils # 0.0 Basophils % 0.7 Blood Morphology Comment Blood Urea Nitrogen 6 L Calcium Level 8.3 L Carbon Dioxide Level 33 H Chloride Level 99 Creatinine 0.53 Eosinophils # 0.2 Eosinophils % 2.9 Glucose Level 210 Hematocrit 26.3 L Hemoglobin 8.8 L Lymphocytes # 2.8 Lymphocytes % 54.4 H Mean Corpuscular Hemoglobin 33.6 H Mean Corpuscular Hemoglobin Concent 33.6 Mean Corpuscular Volume 100.1 Mean Platelet Volume 6.6 L Monocytes # 0.4 Monocytes % 8.0 Neutrophils # 1.7 Neutrophils % 34.0 L Nucleated Red Blood Cells # 0.0 Nucleated Red Blood Cells % 0.0 Platelet Count 377 Potassium Level 3.7 Red Blood Count 2.63 L Red Cell Distribution Width 15.8 H Sodium Level 138 White Blood Count 5.1 Test 12/16/16 12:26 Bedside Glucose 126 Medications Medications Current Medications Ondansetron HCl (Zofran Inj) 4 mg Q6H PRN IV NAUSEA AND/OR VOMITING; Start 12/03 at 22:00 Acetaminophen (Tylenol Liquid) 650 mg Q6H PRN PO PAIN LEVEL 1-3 OR FEVER; Start 12/03/16 at 22:00 Morphine Sulfate (morphine) 2 mg Q4H PRN IV PAIN LEVEL 7-10; Start 12/03/16 at 22:00 Famotidine (Pepcid Iv) 20 mg Q12 IV Last administered on 12/16/16 09:42; Admin Dose 20 MG; Start 12/04/16 at 09:00 Enoxaparin Sodium (Lovenox) 30 mg DAILY SC Last administered on 12/16/16 10:18 ; Admin Dose 30 MG; Start 12/04/16 at 09:00 Eye Lubricant (Akwa Oint) 1 applic TID BOTH EYES Last administered on 09:43; Admin Dose 1 APPLIC; Start 12/04/16 at 09:00 Bisacodyl (Dulcolax Supp) 10 mg Q24H PRN [place] PRN; Start 12/03/16 at 22:00 Docusate Sodium (Colace) 200 mg QHS PO Last administered on 12/15/16 21:55; Admin Dose 200 MG; Start 12/04/16 at 21:00 Acetaminophen/ Hydrocodone Bitart ([place] (10/325)) 1 tab Q6H PRN PO PAIN; Start 12/03/16 at 22:00 Magnesium Hydroxide (Milk Of Mag) 30 ml Q24H PRN PO PRN; Start 12/03/16 at 22:00 Olanzapine (Zyprexa) 5 mg QHS PO Last administered on 12/15/16 21:55; Admin Dose 5 MG; Start 12/04/16 at 21:00 Potassium Chloride (Klor-Con 20) 20 meq DAILY PO Last administered on 09:42; Admin Dose 20 MEQ; Start 12/04/16 at 09:00 Sodium Biphosphate/ Sodium Phosphate (Fleet Enema Pediatric) 66.6 ml DAILY PRN [place] CONSTIPATION; Start 12/03/16 at 22:00 Latanoprost (Xalatan) 1 drop HS BOTH EYES Last administered on 12/15/16 21:56 ; Admin Dose 1 DROP; Start 12/03/16 at 23:00 Miscellaneous Information 1 ea NOTE XX Last administered on 12/15/16 18:02; Admin Dose 1 EA; Start 12/03/16 at 23:00 Glucose (Glutose) 15 gm Q15M PRN PO DECREASED GLUCOSE; Start 12/03/16 at 23:00 Glucose (Glutose) 22.5 gm Q15M PRN PO DECREASED GLUCOSE; Start 12/03/16 at 23:00 Dextrose (D50w Syringe) 25 ml Q15M PRN IV DECREASED GLUCOSE Last administered on 12/15/16 18:02; Admin Dose 25 ML; Start 12/03/16 at 23:00 Dextrose (D50w Syringe) 50 ml Q15M PRN IV DECREASED GLUCOSE Last administered on 12/14/16 17:32; Admin Dose 50 ML; Start 12/03/16 at 23:00 Glucagon (Glucagen) 1 mg Q15M PRN IM DECREASED GLUCOSE; Start 12/03/16 at 23:00 Glucose (Glutose) 15 gm Q15M PRN BUCCAL DECREASED GLUCOSE; Start 12/03/16 at 23: 00 Collagenase (Santyl) 1 applic DAILY TOP Last administered on 12/13/16 08:33; Admin Dose 1 APPLIC; Start 12/05/16 at 13:30 Collagenase (Santyl) 1 applic PRN PRN TOP .SOILING; Start 12/05/16 at 12:30 Diagnostic Test (Pha) (Accucheck) 1 ea 02 XX Last administered on 12/13/16 01: 34; Admin Dose 1 EA; Start 12/07/16 at 02:00 IV Flush (NS 10 ml) 10 ml PRN PRN IV IV PROTOCOL; Start 12/10/16 at 18:00 Pantoprazole (Protonix Iv) 40 mg DAILY@06 IV Last administered on 12/16/16 05: 35; Admin Dose 40 MG; Start 12/15/16 at 06:00 MICHAEL COLINDRES Dec 16, 2016 14:48
--- NOTE | 2016-12-16 15:06 | CONS ---
Date/Time of Note Date/Time of Note DATE: 12/16/16 TIME: 15:02 Assessment/Plan Assessment/Plan Chief Complaint/Hosp Course ID PROGRESS NOTE OFF ABX = DAY #1 s/p => Vanco IV #14, Merrem #4, Diflucan s/p Cefepime /2 - 12/12 = 10 days 24H INTERVAL SUMMARY * Doing well - stable, no new issues * s/p 12/13/16 EDG + COLONOSCOPY findings: (+)Gastritis & (+)Hemorrhoids * Gastric biopsy: -- Chronic gastritis, mild, involving oxyntic and antral mucosa. -- No Helicobacter pylori organisms are identified in a Giemsa stain ( positive control concurrently reviewed). -- There is no evidence of malignancy. PHYSICAL EXAMINATION: GENERAL: 56 yo F HEENT: Unremarkable NECK: Supple, trachea midline. CHEST: Rise symmetrical without dyspnea HEART: RRR ABDOMEN: Soft EXTREMITIES: Warm, no edema with bilateral heel decubs SKIN: Stage II sacral = see photos ID ASSESSMENT: 56 yo F w/PMHX TIA, SZs Disorder,Psychiatric DX w/debility, bedbound status admit with: 1. s/p Acute severe sepsis status post shock due to #2 #3 2. Left middle lobe PNA = Healthcare-associated pneumonia, possibly aspiration type. * s/p 14 days total IV ABX coverage => ABX DC'd 12/15/16 3. Status post Escherichia coli extended-spectrum beta-lactamase urinary tract infection= Treated 4. Sinus tachycardia. 5. Diabetes T2. 6. Anemia, status post EGD. 7. DECUBS: * Bilateral lower extremity w/wounds-> (-)BLEXT DVT by US * Bi-sacrococcygeal stage II INVASIVES: *PICC CURRENT ABX: OFF ABX = DAY #1 s/p => Vanco IV #14, Merrem #4, Diflucan s/p Cefepime /2 - 12/12 = 10 days ID RECOMMENDATIONS: s/p 14 days ABX treatment = Stable Day #1 OFF ABX ASP Precautions Off load wounds -> Local wound care ? Physical Therapy candidate ? DC OFF ABX if remains afebrile when cleared by primary MD . Problems: Consultation Date/Type/Reason Admit Date/Time Dec 03, 2016 at 22:01 Type of Consultation: ID Exam/Review of Systems Vital Signs Vitals Vital Signs Date Time Temp Pulse Resp B/P Pulse Ox O2 Delivery O2 Flow Rate FiO2 12/16/16 12:25 102 12/16/16 11:19 97.6 18 94/51 96 12/14/16 20:00 Room Air 12/13/16 14:54 21 Intake and Output 12/15/16 12/15/16 12/16/16 15:00 23:00 07:00 Intake Total 1050 ml 50 ml Output Total 1200 ml 750 ml Balance -150 ml -700 ml Results Result Diagram: 12/16/16 0535 12/16/16 0535 Results 24 hrs Laboratory Tests Test 12/15/16 17:46 12/15/16 17:53 12/15/16 18:25 12/15/16 18:41 Bedside Glucose 57 L 60 L 152 162 Test 12/15/16 21:53 12/16/16 02:38 12/16/16 05:35 12/16/16 08:14 Bedside Glucose 232 H 267 H 311 H Anion Gap 10 Basophils # 0.0 Basophils % 0.7 Blood Morphology Comment Blood Urea Nitrogen 6 L Calcium Level 8.3 L Carbon Dioxide Level 33 H Chloride Level 99 Creatinine 0.53 Eosinophils # 0.2 Eosinophils % 2.9 Glucose Level 210 Hematocrit 26.3 L Hemoglobin 8.8 L Lymphocytes # 2.8 Lymphocytes % 54.4 H Mean Corpuscular Hemoglobin 33.6 H Mean Corpuscular Hemoglobin Concent 33.6 Mean Corpuscular Volume 100.1 Mean Platelet Volume 6.6 L Monocytes # 0.4 Monocytes % 8.0 Neutrophils # 1.7 Neutrophils % 34.0 L Nucleated Red Blood Cells # 0.0 Nucleated Red Blood Cells % 0.0 Platelet Count 377 Potassium Level 3.7 Red Blood Count 2.63 L Red Cell Distribution Width 15.8 H Sodium Level 138 White Blood Count 5.1 Test 12/16/16 12:26 Bedside Glucose 126 Medications Medications Current Medications Ondansetron HCl (Zofran Inj) 4 mg Q6H PRN IV NAUSEA AND/OR VOMITING; Start 12/03 at 22:00 Acetaminophen (Tylenol Liquid) 650 mg Q6H PRN PO PAIN LEVEL 1-3 OR FEVER; Start 12/03/16 at 22:00 Morphine Sulfate (morphine) 2 mg Q4H PRN IV PAIN LEVEL 7-10; Start 12/03/16 at 22:00 Famotidine (Pepcid Iv) 20 mg Q12 IV Last administered on 12/16/16 09:42; Admin Dose 20 MG; Start 12/04/16 at 09:00 Enoxaparin Sodium (Lovenox) 30 mg DAILY SC Last administered on 12/16/16 10:18 ; Admin Dose 30 MG; Start 12/04/16 at 09:00 Eye Lubricant (Akwa Oint) 1 applic TID BOTH EYES Last administered on 09:43; Admin Dose 1 APPLIC; Start 12/04/16 at 09:00 Bisacodyl (Dulcolax Supp) 10 mg Q24H PRN [place] PRN; Start 12/03/16 at 22:00 Docusate Sodium (Colace) 200 mg QHS PO Last administered on 12/15/16 21:55; Admin Dose 200 MG; Start 12/04/16 at 21:00 Acetaminophen/ Hydrocodone Bitart ([place] (10/325)) 1 tab Q6H PRN PO PAIN; Start 12/03/16 at 22:00 Magnesium Hydroxide (Milk Of Mag) 30 ml Q24H PRN PO PRN; Start 12/03/16 at 22:00 Olanzapine (Zyprexa) 5 mg QHS PO Last administered on 12/15/16 21:55; Admin Dose 5 MG; Start 12/04/16 at 21:00 Potassium Chloride (Klor-Con 20) 20 meq DAILY PO Last administered on 09:42; Admin Dose 20 MEQ; Start 12/04/16 at 09:00 Sodium Biphosphate/ Sodium Phosphate (Fleet Enema Pediatric) 66.6 ml DAILY PRN [place] CONSTIPATION; Start 12/03/16 at 22:00 Latanoprost (Xalatan) 1 drop HS BOTH EYES Last administered on 12/15/16 21:56 ; Admin Dose 1 DROP; Start 12/03/16 at 23:00 Miscellaneous Information 1 ea NOTE XX Last administered on 12/15/16 18:02; Admin Dose 1 EA; Start 12/03/16 at 23:00 Glucose (Glutose) 15 gm Q15M PRN PO DECREASED GLUCOSE; Start 12/03/16 at 23:00 Glucose (Glutose) 22.5 gm Q15M PRN PO DECREASED GLUCOSE; Start 12/03/16 at 23:00 Dextrose (D50w Syringe) 25 ml Q15M PRN IV DECREASED GLUCOSE Last administered on 12/15/16 18:02; Admin Dose 25 ML; Start 12/03/16 at 23:00 Dextrose (D50w Syringe) 50 ml Q15M PRN IV DECREASED GLUCOSE Last administered on 12/14/16 17:32; Admin Dose 50 ML; Start 12/03/16 at 23:00 Glucagon (Glucagen) 1 mg Q15M PRN IM DECREASED GLUCOSE; Start 12/03/16 at 23:00 Glucose (Glutose) 15 gm Q15M PRN BUCCAL DECREASED GLUCOSE; Start 12/03/16 at 23: 00 Collagenase (Santyl) 1 applic DAILY TOP Last administered on 12/13/16 08:33; Admin Dose 1 APPLIC; Start 12/05/16 at 13:30 Collagenase (Santyl) 1 applic PRN PRN TOP .SOILING; Start 12/05/16 at 12:30 Diagnostic Test (Pha) (Accucheck) 1 ea 02 XX Last administered on 12/13/16 01: 34; Admin Dose 1 EA; Start 12/07/16 at 02:00 IV Flush (NS 10 ml) 10 ml PRN PRN IV IV PROTOCOL; Start 12/10/16 at 18:00 Pantoprazole (Protonix Iv) 40 mg DAILY@06 IV Last administered on 12/16/16 05: 35; Admin Dose 40 MG; Start 12/15/16 at 06:00 ELIZABETH CHEEK NP Dec 16, 2016 15:06
[2016-12-16] MEDS: LATANOPROST 0.005% 2.5 ML OPH BOTH EYES SCH (20:41)
[2016-12-16] MEDS: OLANZAPINE 5 MG TAB PO SCH (20:41)
[2016-12-16] MEDS: DOCUSATE SODIUM 100 MG CAP PO SCH (20:42)
[2016-12-17] VITALS (11 sets, daily range): BP systolic 106–129; BP diastolic 51–59; PULSE 99–118; RESP 16–20
[2016-12-17] MEDS: ACCUCHECK XX SCH (02:00)
[2016-12-17] MEDS: PANTOPRAZOLE 40 MG INJ IV SCH (05:24)
[2016-12-17 06:11] LABS: BASOPHILS % 0.8 % (0.0-2.0); EOSINOPHILS # 0.1 10^3/ul (0.0-0.5); EOSINOPHILS % 1.1 % (0.0-7.0); HEMATOCRIT 23.1 % (37.0-47.0); HEMOGLOBIN 7.8 g/dl (12.0-16.0); LYMPHOCYTES # 2.4 10^3/ul (0.8-2.9); LYMPHOCYTES % 37.5 % (15.0-51.0); MEAN CORPUSCULAR HEMOGLOBIN 33.8 pg (29.0-33.0); MEAN CORPUSCULAR HGB CONC 33.7 g/dl (32.0-37.0); MEAN CORPUSCULAR VOLUME 100.2 fl (82.0-101.0); MEAN PLATELET VOLUME 6.8 fl (7.4-10.4); MONOCYTE # 0.3 10^3/ul (0.3-0.9); MONOCYTES % 4.8 % (0.0-11.0); NEUTROPHIL # 3.5 10^3/ul (1.6-7.5); NEUTROPHILS % 55.8 % (39.0-77.0); PLATELET COUNT 356 10^3/UL (140-440); RED CELL DISTRIBUTION WIDTH 15.6 % (11.5-14.5); UNCORRECTED WBC 6.3 10^3/ul (4.8-10.8); WHITE BLOOD COUNT 6.3 10^3/ul (4.8-10.8)
[2016-12-17 06:19] LABS: CONDITION 1; LH ANALYZER COMMENTS 1
[2016-12-17 06:43] LABS: POTASSIUM 3.9 mmol/L (3.5-5.1)
[2016-12-17 06:45] LABS: CREATININE 0.63 mg/dl (0.44-1.00)
[2016-12-17] MEDS: INSULIN ASPART [NOVOLOG] 3 ML PEN SC SCH ×7 (09:04→21:00)
[2016-12-17] MEDS: INSULIN GLARGINE [LANtus] 3 ML PEN SC SCH (09:05)
[2016-12-17] MEDS: ENOXAPARIN 30 MG/0.3 ML SYG SC SCH (09:06)
[2016-12-17] MEDS: OCULAR LUBRICANT 3.5 GM OPH OINT BOTH EYES SCH ×3 (09:06→21:10)
[2016-12-17] MEDS: FAMOTIDINE 20 MG INJ IV SCH (09:06)
[2016-12-17] MEDS: POTASSIUM CHLORIDE (SR) 20 MEQ TAB PO SCH (09:06)
[2016-12-17] MEDS: COLLAGENASE 30 GM TUBE TOP SCH (09:07)
--- NOTE | 2016-12-17 12:12 | CONS ---
Date/Time of Note Date/Time of Note DATE: 12/17/16 TIME: 12:10 Assessment/Plan Assessment/Plan Additional Assessment/Plan Severe sepsis Likely PNA and UTI Sinus tachycardia Preserved ejection fraction Psychiatric disorder -Blood pressure has remained stable, patient with improvement in edema with diuretics, would continue as renal function and blood pressure permits. Antibiotics as per infectious disease colleagues. Consultation Date/Type/Reason Admit Date/Time Dec 03, 2016 at 22:01 Type of Consultation: cv 24 HR Interval Summary Free Text/Dictation Feels better, edema has improved, denies shortness of breath Exam/Review of Systems Vital Signs Vitals Vital Signs Date Time Temp Pulse Resp B/P Pulse Ox O2 Delivery O2 Flow Rate FiO2 12/17/16 11:24 98.2 106 19 113/51 97 12/17/16 05:25 21 12/14/16 20:00 Room Air Intake and Output 12/16/16 12/16/16 12/17/16 15:00 23:00 07:00 Intake Total 750 ml 550 ml Output Total 850 ml 500 ml Balance -100 ml 50 ml Exam Following commands, no apparent distress Constitutional: alert Head: normocephalic Neck: supple Respiratory: other (course breath sounds bilaterally, no wheezing) Cardiovascular: other (S1 and S2 heard), regular rate and rhythm Gastrointestinal: bowel sounds, non-tender, soft Extremities: edema Results Result Diagram: 12/17/16 0500 12/17/16 0500 Results 24 hrs Laboratory Tests Test 12/16/16 12:26 12/16/16 17:29 12/16/16 20:39 12/17/16 05:00 Bedside Glucose 126 306 H 161 Anion Gap 11 Basophils # 0.0 Basophils % 0.8 Blood Morphology Comment Blood Urea Nitrogen 11 Calcium Level 8.0 L Carbon Dioxide Level 32 H Chloride Level 96 L Creatinine 0.63 Eosinophils # 0.1 Eosinophils % 1.1 Glucose Level 320 H Hematocrit 23.1 L Hemoglobin 7.8 L Lymphocytes # 2.4 Lymphocytes % 37.5 Mean Corpuscular Hemoglobin 33.8 H Mean Corpuscular Hemoglobin Concent 33.7 Mean Corpuscular Volume 100.2 Mean Platelet Volume 6.8 L Monocytes # 0.3 Monocytes % 4.8 Neutrophils # 3.5 Neutrophils % 55.8 Nucleated Red Blood Cells # 0.0 Nucleated Red Blood Cells % 0.0 Platelet Count 356 Potassium Level 3.9 Red Blood Count 2.30 L Red Cell Distribution Width 15.6 H Sodium Level 135 White Blood Count 6.3 # Test 12/17/16 08:08 12/17/16 11:41 Bedside Glucose 393 H 231 H Medications Medications Current Medications Ondansetron HCl (Zofran Inj) 4 mg Q6H PRN IV NAUSEA AND/OR VOMITING; Start 12/03 at 22:00 Acetaminophen (Tylenol Liquid) 650 mg Q6H PRN PO PAIN LEVEL 1-3 OR FEVER; Start 12/03/16 at 22:00 Morphine Sulfate (morphine) 2 mg Q4H PRN IV PAIN LEVEL 7-10; Start 12/03/16 at 22:00 Famotidine (Pepcid Iv) 20 mg Q12 IV Last administered on 12/17/16 09:06; Admin Dose 20 MG; Start 12/04/16 at 09:00 Enoxaparin Sodium (Lovenox) 30 mg DAILY SC Last administered on 12/17/16 09:06 ; Admin Dose 30 MG; Start 12/04/16 at 09:00 Eye Lubricant (Akwa Oint) 1 applic TID BOTH EYES Last administered on 09:06; Admin Dose 1 APPLIC; Start 12/04/16 at 09:00 Bisacodyl (Dulcolax Supp) 10 mg Q24H PRN [place] PRN; Start 12/03/16 at 22:00 Docusate Sodium (Colace) 200 mg QHS PO Last administered on 12/16/16 20:42; Admin Dose 200 MG; Start 12/04/16 at 21:00 Acetaminophen/ Hydrocodone Bitart ([place] (10/325)) 1 tab Q6H PRN PO PAIN; Start 12/03/16 at 22:00 Magnesium Hydroxide (Milk Of Mag) 30 ml Q24H PRN PO PRN; Start 12/03/16 at 22:00 Olanzapine (Zyprexa) 5 mg QHS PO Last administered on 12/16/16 20:41; Admin Dose 5 MG; Start 12/04/16 at 21:00 Potassium Chloride (Klor-Con 20) 20 meq DAILY PO Last administered on 09:06; Admin Dose 20 MEQ; Start 12/04/16 at 09:00 Sodium Biphosphate/ Sodium Phosphate (Fleet Enema Pediatric) 66.6 ml DAILY PRN [place] CONSTIPATION; Start 12/03/16 at 22:00 Latanoprost (Xalatan) 1 drop HS BOTH EYES Last administered on 12/16/16 20:41 ; Admin Dose 1 DROP; Start 12/03/16 at 23:00 Miscellaneous Information 1 ea NOTE XX Last administered on 12/15/16 18:02; Admin Dose 1 EA; Start 12/03/16 at 23:00 Glucose (Glutose) 15 gm Q15M PRN PO DECREASED GLUCOSE; Start 12/03/16 at 23:00 Glucose (Glutose) 22.5 gm Q15M PRN PO DECREASED GLUCOSE; Start 12/03/16 at 23:00 Dextrose (D50w Syringe) 25 ml Q15M PRN IV DECREASED GLUCOSE Last administered on 12/15/16 18:02; Admin Dose 25 ML; Start 12/03/16 at 23:00 Dextrose (D50w Syringe) 50 ml Q15M PRN IV DECREASED GLUCOSE Last administered on 12/14/16 17:32; Admin Dose 50 ML; Start 12/03/16 at 23:00 Glucagon (Glucagen) 1 mg Q15M PRN IM DECREASED GLUCOSE; Start 12/03/16 at 23:00 Glucose (Glutose) 15 gm Q15M PRN BUCCAL DECREASED GLUCOSE; Start 12/03/16 at 23: 00 Collagenase (Santyl) 1 applic DAILY TOP Last administered on 12/17/16 09:07; Admin Dose 1 APPLIC; Start 12/05/16 at 13:30 Collagenase (Santyl) 1 applic PRN PRN TOP .SOILING; Start 12/05/16 at 12:30 Diagnostic Test (Pha) (Accucheck) 1 ea 02 XX Last administered on 12/13/16 01: 34; Admin Dose 1 EA; Start 12/07/16 at 02:00 IV Flush (NS 10 ml) 10 ml PRN PRN IV IV PROTOCOL; Start 12/10/16 at 18:00 Pantoprazole (Protonix Iv) 40 mg DAILY@06 IV Last administered on 12/17/16 05: 24; Admin Dose 40 MG; Start 12/15/16 at 06:00 Insulin Glargine (Lantus) 15 unit DAILY SC Last administered on 12/17/16 09:05 ; Admin Dose 15 UNIT; Start 12/17/16 at 09:00 Gamal Coronel DO Dec 17, 2016 12:12
[2016-12-17] MEDS ORDERED: FUROSEMIDE 20 MG INJ IV ONE (12:30)
--- NOTE | 2016-12-17 16:05 | CONS ---
Date/Time of Note Date/Time of Note DATE: 12/17/16 TIME: 16:04 Assessment/Plan Assessment/Plan Chief Complaint/Hosp Course ID PROGRESS NOTE OFF ABX = DAY #2 s/p => Vanco IV #14, Merrem #4, Diflucan s/p Cefepime /2 - 12/12 = 10 days 24H INTERVAL SUMMARY * No fevers, WBC normal, resting comfortably -- Doing well - stable, no new issues * s/p 12/13/16 EDG + COLONOSCOPY findings: (+)Gastritis & (+)Hemorrhoids * Gastric biopsy: -- Chronic gastritis, mild, involving oxyntic and antral mucosa. -- No Helicobacter pylori organisms are identified in a Giemsa stain ( positive control concurrently reviewed). -- There is no evidence of malignancy. PHYSICAL EXAMINATION: GENERAL: 56 yo F HEENT: Unremarkable NECK: Supple, trachea midline. CHEST: Rise symmetrical without dyspnea HEART: RRR ABDOMEN: Soft EXTREMITIES: Warm, no edema with bilateral heel decubs SKIN: Stage II sacral = see photos ID ASSESSMENT: 56 yo F w/PMHX TIA, SZs Disorder,Psychiatric DX w/debility, bedbound status admit with: 1. s/p Acute severe sepsis status post shock due to #2 #3 2. Left middle lobe PNA = Healthcare-associated pneumonia, possibly aspiration type. * s/p 14 days total IV ABX coverage => ABX DC'd 12/15/16 3. Status post Escherichia coli extended-spectrum beta-lactamase urinary tract infection= Treated 4. Sinus tachycardia. 5. Diabetes T2. 6. Anemia, status post EGD. 7. DECUBS: * Bilateral lower extremity w/wounds-> (-)BLEXT DVT by US * Bi-sacrococcygeal stage II INVASIVES: *PICC CURRENT ABX: OFF ABX = DAY #2 s/p => Vanco IV #14, Merrem #4, Diflucan s/p Cefepime /2 - 12/12 = 10 days ID RECOMMENDATIONS: s/p 14 days ABX treatment = Stable Day #2 OFF ABX ASP Precautions Off load wounds -> Local wound care ? Physical Therapy candidate ? DC OFF ABX if remains afebrile when cleared by primary MD . Problems: Consultation Date/Type/Reason Admit Date/Time Dec 03, 2016 at 22:01 Type of Consultation: ID Exam/Review of Systems Vital Signs Vitals Vital Signs Date Time Temp Pulse Resp B/P Pulse Ox O2 Delivery O2 Flow Rate FiO2 12/17/16 15:37 98.4 112 16 129/59 97 12/17/16 05:25 21 12/14/16 20:00 Room Air Intake and Output 12/16/16 12/16/16 12/17/16 15:00 23:00 07:00 Intake Total 750 ml 550 ml Output Total 850 ml 500 ml Balance -100 ml 50 ml Results Result Diagram: 12/17/16 0500 12/17/16 0500 Results 24 hrs Laboratory Tests Test 12/16/16 17:29 12/16/16 20:39 12/17/16 05:00 12/17/16 08:08 Bedside Glucose 306 H 161 393 H Anion Gap 11 Basophils # 0.0 Basophils % 0.8 Blood Morphology Comment Blood Urea Nitrogen 11 Calcium Level 8.0 L Carbon Dioxide Level 32 H Chloride Level 96 L Creatinine 0.63 Eosinophils # 0.1 Eosinophils % 1.1 Glucose Level 320 H Hematocrit 23.1 L Hemoglobin 7.8 L Lymphocytes # 2.4 Lymphocytes % 37.5 Mean Corpuscular Hemoglobin 33.8 H Mean Corpuscular Hemoglobin Concent 33.7 Mean Corpuscular Volume 100.2 Mean Platelet Volume 6.8 L Monocytes # 0.3 Monocytes % 4.8 Neutrophils # 3.5 Neutrophils % 55.8 Nucleated Red Blood Cells # 0.0 Nucleated Red Blood Cells % 0.0 Platelet Count 356 Potassium Level 3.9 Red Blood Count 2.30 L Red Cell Distribution Width 15.6 H Sodium Level 135 White Blood Count 6.3 # Test 12/17/16 11:41 Bedside Glucose 231 H Medications Medications Current Medications Ondansetron HCl (Zofran Inj) 4 mg Q6H PRN IV NAUSEA AND/OR VOMITING; Start 12/03 at 22:00 Acetaminophen (Tylenol Liquid) 650 mg Q6H PRN PO PAIN LEVEL 1-3 OR FEVER; Start 12/03/16 at 22:00 Morphine Sulfate (morphine) 2 mg Q4H PRN IV PAIN LEVEL 7-10 Last administered on 12/17/16t 13:30; Admin Dose 2 MG; Start 12/03/16 at 22:00 Enoxaparin Sodium (Lovenox) 30 mg DAILY SC Last administered on 12/17/16 09:06 ; Admin Dose 30 MG; Start 12/04/16 at 09:00 Eye Lubricant (Akwa Oint) 1 applic TID BOTH EYES Last administered on 13:30; Admin Dose 1 APPLIC; Start 12/04/16 at 09:00 Bisacodyl (Dulcolax Supp) 10 mg Q24H PRN [place] PRN; Start 12/03/16 at 22:00 Docusate Sodium (Colace) 200 mg QHS PO Last administered on 12/16/16 20:42; Admin Dose 200 MG; Start 12/04/16 at 21:00 Acetaminophen/ Hydrocodone Bitart ([place] (10/325)) 1 tab Q6H PRN PO PAIN; Start 12/03/16 at 22:00 Magnesium Hydroxide (Milk Of Mag) 30 ml Q24H PRN PO PRN; Start 12/03/16 at 22:00 Olanzapine (Zyprexa) 5 mg QHS PO Last administered on 12/16/16 20:41; Admin Dose 5 MG; Start 12/04/16 at 21:00 Potassium Chloride (Klor-Con 20) 20 meq DAILY PO Last administered on 09:06; Admin Dose 20 MEQ; Start 12/04/16 at 09:00 Sodium Biphosphate/ Sodium Phosphate (Fleet Enema Pediatric) 66.6 ml DAILY PRN [place] CONSTIPATION; Start 12/03/16 at 22:00 Latanoprost (Xalatan) 1 drop HS BOTH EYES Last administered on 12/16/16 20:41 ; Admin Dose 1 DROP; Start 12/03/16 at 23:00 Miscellaneous Information 1 ea NOTE XX Last administered on 12/15/16 18:02; Admin Dose 1 EA; Start 12/03/16 at 23:00 Glucose (Glutose) 15 gm Q15M PRN PO DECREASED GLUCOSE; Start 12/03/16 at 23:00 Glucose (Glutose) 22.5 gm Q15M PRN PO DECREASED GLUCOSE; Start 12/03/16 at 23:00 Dextrose (D50w Syringe) 25 ml Q15M PRN IV DECREASED GLUCOSE Last administered on 12/15/16 18:02; Admin Dose 25 ML; Start 12/03/16 at 23:00 Dextrose (D50w Syringe) 50 ml Q15M PRN IV DECREASED GLUCOSE Last administered on 12/14/16 17:32; Admin Dose 50 ML; Start 12/03/16 at 23:00 Glucagon (Glucagen) 1 mg Q15M PRN IM DECREASED GLUCOSE; Start 12/03/16 at 23:00 Glucose (Glutose) 15 gm Q15M PRN BUCCAL DECREASED GLUCOSE; Start 12/03/16 at 23: 00 Collagenase (Santyl) 1 applic DAILY TOP Last administered on 12/17/16 09:07; Admin Dose 1 APPLIC; Start 12/05/16 at 13:30 Collagenase (Santyl) 1 applic PRN PRN TOP .SOILING; Start 12/05/16 at 12:30 Diagnostic Test (Pha) (Accucheck) 1 ea 02 XX Last administered on 12/13/16 01: 34; Admin Dose 1 EA; Start 12/07/16 at 02:00 IV Flush (NS 10 ml) 10 ml PRN PRN IV IV PROTOCOL; Start 12/10/16 at 18:00 Pantoprazole (Protonix Iv) 40 mg DAILY@06 IV Last administered on 12/17/16 05: 24; Admin Dose 40 MG; Start 12/15/16 at 06:00 Insulin Glargine (Lantus) 15 unit DAILY SC Last administered on 12/17/16 09:05 ; Admin Dose 15 UNIT; Start 12/17/16 at 09:00 ELIZABETH CHEEK NP Dec 17, 2016 16:05
[2016-12-17] MEDS: LATANOPROST 0.005% 2.5 ML OPH BOTH EYES SCH (21:10)
[2016-12-17] MEDS: DOCUSATE SODIUM 100 MG CAP PO SCH (21:10)
[2016-12-17] MEDS: OLANZAPINE 5 MG TAB PO SCH (21:10)
--- NOTE | 2016-12-17 22:42 | PN ---
Date/Time of Note Date/Time of Note DATE: 12/17/16 TIME: 22:40 Assessment/Plan VTE Prophylaxis VTE Prophylaxis Intervention: SCD's Lines/Catheters IV Catheter Type (from Nrs): PICC Line Central line still needed: Yes Urinary Cath still in place: Yes Reason Cath still needed: urinary retention Assessment/Plan Chief Complaint/Hosp Course ASSESSMENT AND PLAN: 1. Left basilar pneumonia. S/p treatment. 2. Sepsis secondary to pneumonia and urinary tract infection. Dr. Coffman is following patient in infectious disease consultation. 3. Escherichia coli extended-spectrum beta-lactamase urinary tract infection. 4. Diabetes mellitus type 2. Continue NovoLog per moderate algorithm sliding scale and Lantus. 5. History of schizophrenia and bipolar disorder. Continue patient on Zyprexa. 6. Bilateral lower extremity wound. Continue Santyl and local wound care. 7. Sinus tachycardia. Diastolic dysfunction with preserved ejection fraction per 2D echo. Dr Coronel is following from cardiology standpoint. 8. Anemia, patient is evaluated by Dr. Simpson in gastroenterology consultation , s/p endoscopy. Transfuse 2 Units of PRBC. SNIF placement. Continue Pepcid for peptic ulcer disease prophylaxis and Lovenox for deep venous thrombosis prophylaxis. Further recommendations based on clinical course. Plan of care discussed with Dr. Aly. Problems: Subjective 24 Hr Interval Summary Free Text/Dictation Patient looks comfortable, no fever, looks pale. Exam/Review of Systems Vital Signs Vitals Vital Signs Date Time Temp Pulse Resp B/P Pulse Ox O2 Delivery O2 Flow Rate FiO2 12/17/16 21:05 101 12/17/16 20:15 97.3 16 106/53 95 12/17/16 05:25 21 12/14/16 20:00 Room Air Intake and Output 12/16/16 12/16/16 12/17/16 15:00 23:00 07:00 Intake Total 750 ml 550 ml Output Total 850 ml 500 ml Balance -100 ml 50 ml Exam GENERAL: Well-developed, well-nourished female currently awake, alert. HEENT: Head is atraumatic, normocephalic. PERRLA. NECK: Supple. No mass, no thyromegaly. LUNGS: Clear bilaterally, slightly diminished at the bases. ABDOMEN: Round, soft, nondistended, nontender. Bowel sounds present. EXTREMITIES: No edema, clubbing, cyanosis. SKIN: There is no rash noted. NEUROLOGIC: The patient is alert and oriented to name and situation. Results Result Diagram: 12/17/16 0500 12/17/16 0500 Results 24 hrs Laboratory Tests Test 12/17/16 05:00 12/17/16 08:08 12/17/16 11:41 12/17/16 17:09 Anion Gap 11 Basophils # 0.0 Basophils % 0.8 Blood Morphology Comment Blood Urea Nitrogen 11 Calcium Level 8.0 L Carbon Dioxide Level 32 H Chloride Level 96 L Creatinine 0.63 Eosinophils # 0.1 Eosinophils % 1.1 Glucose Level 320 H Hematocrit 23.1 L Hemoglobin 7.8 L Lymphocytes # 2.4 Lymphocytes % 37.5 Mean Corpuscular Hemoglobin 33.8 H Mean Corpuscular Hemoglobin Concent 33.7 Mean Corpuscular Volume 100.2 Mean Platelet Volume 6.8 L Monocytes # 0.3 Monocytes % 4.8 Neutrophils # 3.5 Neutrophils % 55.8 Nucleated Red Blood Cells # 0.0 Nucleated Red Blood Cells % 0.0 Platelet Count 356 Potassium Level 3.9 Red Blood Count 2.30 L Red Cell Distribution Width 15.6 H Sodium Level 135 White Blood Count 6.3 # Bedside Glucose 393 H 231 H 103 Test 12/17/16 20:34 Bedside Glucose 124 Medications Medications Current Medications Ondansetron HCl (Zofran Inj) 4 mg Q6H PRN IV NAUSEA AND/OR VOMITING; Start 12/03 at 22:00 Acetaminophen (Tylenol Liquid) 650 mg Q6H PRN PO PAIN LEVEL 1-3 OR FEVER; Start 12/03/16 at 22:00 Morphine Sulfate (morphine) 2 mg Q4H PRN IV PAIN LEVEL 7-10 Last administered on 12/17/16 13:30; Admin Dose 2 MG; Start 12/03/16 at 22:00 Enoxaparin Sodium (Lovenox) 30 mg DAILY SC Last administered on 12/17/16 09:06 ; Admin Dose 30 MG; Start 12/04/16 at 09:00 Eye Lubricant (Akwa Oint) 1 applic TID BOTH EYES Last administered on 21:10; Admin Dose 1 APPLIC; Start 12/04/16 at 09:00 Bisacodyl (Dulcolax Supp) 10 mg Q24H PRN [place] PRN; Start 12/03/16 at 22:00 Docusate Sodium (Colace) 200 mg QHS PO Last administered on 12/17/16 21:10; Admin Dose 200 MG; Start 12/04/16 at 21:00 Acetaminophen/ Hydrocodone Bitart ([place] (10)) 1 tab Q6H PRN PO PAIN; Start 12/03/16 at 22:00 Magnesium Hydroxide (Milk Of Mag) 30 ml Q24H PRN PO PRN; Start 12/03/16 at 22:00 Olanzapine (Zyprexa) 5 mg QHS PO Last administered on 12/17/16 21:10; Admin Dose 5 MG; Start 12/04/16 at 21:00 Potassium Chloride (Klor-Con 20) 20 meq DAILY PO Last administered on 09:06; Admin Dose 20 MEQ; Start 12/04/16 at 09:00 Sodium Biphosphate/ Sodium Phosphate (Fleet Enema Pediatric) 66.6 ml DAILY PRN [place] CONSTIPATION; Start 12/03/16 at 22:00 Latanoprost (Xalatan) 1 drop HS BOTH EYES Last administered on 12/17/16 21:10 ; Admin Dose 1 DROP; Start 12/03/16 at 23:00 Miscellaneous Information 1 ea NOTE XX Last administered on 12/15/16 18:02; Admin Dose 1 EA; Start 12/03/16 at 23:00 Glucose (Glutose) 15 gm Q15M PRN PO DECREASED GLUCOSE; Start 12/03/16 at 23:00 Glucose (Glutose) 22.5 gm Q15M PRN PO DECREASED GLUCOSE; Start 12/03/16 at 23:00 Dextrose (D50w Syringe) 25 ml Q15M PRN IV DECREASED GLUCOSE Last administered on 12/15/16 18:02; Admin Dose 25 ML; Start 12/03/16 at 23:00 Dextrose (D50w Syringe) 50 ml Q15M PRN IV DECREASED GLUCOSE Last administered on 12/14/16 17:32; Admin Dose 50 ML; Start 12/03/16 at 23:00 Glucagon (Glucagen) 1 mg Q15M PRN IM DECREASED GLUCOSE; Start 12/03/16 at 23:00 Glucose (Glutose) 15 gm Q15M PRN BUCCAL DECREASED GLUCOSE; Start 12/03/16 at 23: 00 Collagenase (Santyl) 1 applic DAILY TOP Last administered on 12/17/16 09:07; Admin Dose 1 APPLIC; Start 12/05/16 at 13:30 Collagenase (Santyl) 1 applic PRN PRN TOP .SOILING; Start 12/05/16 at 12:30 Diagnostic Test (Pha) (Accucheck) 1 ea 02 XX Last administered on 12/13/16 01: 34; Admin Dose 1 EA; Start 12/07/16 at 02:00 IV Flush (NS 10 ml) 10 ml PRN PRN IV IV PROTOCOL; Start 12/10/16 at 18:00 Pantoprazole (Protonix Iv) 40 mg DAILY@06 IV Last administered on 12/17/16 05: 24; Admin Dose 40 MG; Start 12/15/16 at 06:00 Insulin Glargine (Lantus) 15 unit DAILY SC Last administered on 12/17/16 09:05 ; Admin Dose 15 UNIT; Start 12/17/16 at 09:00 DENA SALGUERO Dec 17, 2016 22:42
[2016-12-17] MEDS ORDERED: SOD CHLORIDE 0.9% 250 ML IV* ONE (22:49)
[2016-12-18] VITALS (10 sets, daily range): BP systolic 91–117; BP diastolic 43–65; PULSE 72–100; RESP 16–20
[2016-12-18] MEDS: ACCUCHECK XX SCH (02:00)
[2016-12-18] MEDS: FUROSEMIDE 20 MG TAB PO SCH ×2 (05:47→17:52)
[2016-12-18] MEDS: PANTOPRAZOLE 40 MG INJ IV SCH (05:47)
[2016-12-18] MEDS: INSULIN ASPART [NOVOLOG] 3 ML PEN SC SCH ×7 (07:55→20:59)
[2016-12-18 08:16] LABS: BASOPHILS % 0.7 % (0.0-2.0); EOSINOPHILS # 0.1 10^3/ul (0.0-0.5); EOSINOPHILS % 2.5 % (0.0-7.0); HEMATOCRIT 30.9 % (37.0-47.0); HEMOGLOBIN 10.4 g/dl (12.0-16.0); LYMPHOCYTES # 2.6 10^3/ul (0.8-2.9); LYMPHOCYTES % 52.7 % (15.0-51.0); MEAN CORPUSCULAR HEMOGLOBIN 32.8 pg (29.0-33.0); MEAN CORPUSCULAR HGB CONC 33.7 g/dl (32.0-37.0); MEAN CORPUSCULAR VOLUME 97.3 fl (82.0-101.0); MEAN PLATELET VOLUME 6.9 fl (7.4-10.4); MONOCYTE # 0.4 10^3/ul (0.3-0.9); MONOCYTES % 7.2 % (0.0-11.0); NEUTROPHIL # 1.8 10^3/ul (1.6-7.5); NEUTROPHILS % 36.9 % (39.0-77.0); PLATELET COUNT 339 10^3/UL (140-440); RED BLOOD COUNT 3.17 10^6/ul (4.20-5.40); RED CELL DISTRIBUTION WIDTH 17.7 % (11.5-14.5)
[2016-12-18 08:22] LABS: CONDITION 1; LH ANALYZER COMMENTS 1
[2016-12-18] MEDS: OCULAR LUBRICANT 3.5 GM OPH OINT BOTH EYES SCH ×3 (08:42→20:59)
[2016-12-18 08:47] LABS: IRON 92 ug/dl (35-150)
[2016-12-18 08:50] LABS: POTASSIUM 3.3 mmol/L (3.5-5.1)
[2016-12-18 08:52] LABS: CREATININE 0.56 mg/dl (0.44-1.00)
[2016-12-18 08:53] LABS: CALCIUM 8.5 mg/dl (8.4-10.2)
[2016-12-18 08:56] LABS: TOTAL IRON BINDING CAPACITY 129 ug/dl (241-421)
[2016-12-18] MEDS: POTASSIUM CHLORIDE (SR) 20 MEQ TAB PO SCH (10:08)
[2016-12-18] MEDS: COLLAGENASE 30 GM TUBE TOP SCH (10:09)
[2016-12-18] MEDS: INSULIN GLARGINE [LANtus] 3 ML PEN SC SCH (10:11)
[2016-12-18] MEDS: ENOXAPARIN 30 MG/0.3 ML SYG SC SCH (10:12)
--- NOTE | 2016-12-18 12:53 | PN ---
DATE: 12/18/2016 SUBJECTIVE: No changes overnight. Patient is alert, eating lunch, looks comfortable, denies pain, discomfort. No fevers. LABORATORIES: WBC 5, no shift, no bands. BUN 12, creatinine 0.56. INDWELLINGS: The patient has Shields catheter, PICC line placed on 12/10/2016. ANTIMICROBIALS: She is off antibiotics. PHYSICAL EXAMINATION: GENERAL: This is a well-nourished, well-developed, chronically ill-appearing, middle-aged woman who is awake, in no distress. HEENT: Head atraumatic, normocephalic. Sclerae anicteric. Buccal mucosa dry. NECK: Supple, trachea midline. CHEST: Rise symmetrical. Breath sounds diminished to bases. HEART: S1, S2. ABDOMEN: Soft, bowel tones present. EXTREMITIES: Without cyanosis. Bilateral trace edema. ASSESSMENT: 1. Status post sepsis with shock. 2. Status post urinary tract infection, pneumonia. 3. Anemia. 4. Diabetes. 5. History of seizure disorder. PLAN: The patient remains stable, completed treatment with antibiotics. Continue present care, ant i-aspiration measures. Dictated By: MELODIE RAMIREZ ORDER PROCESSOR for ALISSA LOWE/NTS Conf#: [id number] DID#: [id number]
--- NOTE | 2016-12-18 13:22 | CONS ---
Date/Time of Note Date/Time of Note DATE: 12/18/16 TIME: 13:20 Assessment/Plan Assessment/Plan Additional Assessment/Plan Respiratory failure status post tracheostomy Sepsis Minimally elevated troponin DVT Acute decompensated Diastolic congestive heart failure End-stage renal disease on hemodialysis CAD with history of PCI Diabetes Peripheral arterial disease with history of amputation Pulmonary hypertension -Renal function remained stable, continue diuretics as blood pressure permits given edema. Potassium supplementation ordered Consultation Date/Type/Reason Admit Date/Time Dec 03, 2016 at 22:01 Type of Consultation: cv 24 HR Interval Summary Free Text/Dictation Patient denies shortness of breath, chest pain or palpitations Exam/Review of Systems Vital Signs Vitals Vital Signs Date Time Temp Pulse Resp B/P Pulse Ox O2 Delivery O2 Flow Rate FiO2 12/18/16 12:23 100 12/18/16 11:30 98.2 20 113/58 96 12/17/16 05:25 21 12/14/16 20:00 Room Air Intake and Output 12/17/16 12/17/16 12/18/16 15:00 23:00 07:00 Intake Total 530 ml Output Total 600 ml Balance -70 ml Exam Following commands, no apparent distress Constitutional: alert Head: normocephalic Neck: supple Respiratory: other (course breath sounds bilaterally, no wheezing) Cardiovascular: other (S1 and S2 heard), regular rate and rhythm Gastrointestinal: bowel sounds, non-tender, soft Extremities: edema Results Result Diagram: 12/18/16 0640 12/18/16 0640 Results 24 hrs Laboratory Tests Test 12/17/16 17:09 12/17/16 20:34 12/18/16 06:40 12/18/16 08:40 Bedside Glucose 103 124 130 Anion Gap 11 Basophils # 0.0 Basophils % 0.7 Blood Morphology Comment Blood Urea Nitrogen 12 Calcium Level 8.5 Carbon Dioxide Level 33 H Chloride Level 98 Creatinine 0.56 Eosinophils # 0.1 Eosinophils % 2.5 Ferritin 430.0 H Folate 3.0 Glucose Level 105 # Hematocrit 30.9 #L Hemoglobin 10.4 #L Iron Level 92 Lymphocytes # 2.6 Lymphocytes % 52.7 H Mean Corpuscular Hemoglobin 32.8 Mean Corpuscular Hemoglobin Concent 33.7 Mean Corpuscular Volume 97.3 Mean Platelet Volume 6.9 L Monocytes # 0.4 Monocytes % 7.2 Neutrophils # 1.8 Neutrophils % 36.9 L Nucleated Red Blood Cells # 0.0 Nucleated Red Blood Cells % 0.0 Percent Iron Saturation 71 H Platelet Count 339 Potassium Level 3.3 L Red Blood Count 3.17 #L Red Cell Distribution Width 17.7 H Sodium Level 139 Total Iron Binding Capacity 129 L Vitamin B12 Level 805 White Blood Count 5.0 # Test 12/18/16 12:28 Bedside Glucose 95 Medications Medications Current Medications Ondansetron HCl (Zofran Inj) 4 mg Q6H PRN IV NAUSEA AND/OR VOMITING; Start 12/03 at 22:00 Acetaminophen (Tylenol Liquid) 650 mg Q6H PRN PO PAIN LEVEL 1-3 OR FEVER; Start 12/03/16 at 22:00 Morphine Sulfate (morphine) 2 mg Q4H PRN IV PAIN LEVEL 7-10 Last administered on 12/17/16 13:30; Admin Dose 2 MG; Start 12/03/16 at 22:00 Enoxaparin Sodium (Lovenox) 30 mg DAILY SC Last administered on 12/18/16 10:12 ; Admin Dose 30 MG; Start 12/04/16 at 09:00 Eye Lubricant (Akwa Oint) 1 applic TID BOTH EYES Last administered on 12:29; Admin Dose 1 APPLIC; Start 12/04/16 at 09:00 Bisacodyl (Dulcolax Supp) 10 mg Q24H PRN [place] PRN; Start 12/03/16 at 22:00 Docusate Sodium (Colace) 200 mg QHS PO Last administered on 12/17/16 21:10; Admin Dose 200 MG; Start 12/04/16 at 21:00 Acetaminophen/ Hydrocodone Bitart ([place] (10/325)) 1 tab Q6H PRN PO PAIN; Start 12/03/16 at 22:00 Magnesium Hydroxide (Milk Of Mag) 30 ml Q24H PRN PO PRN; Start 12/03/16 at 22:00 Olanzapine (Zyprexa) 5 mg QHS PO Last administered on 12/17/16 21:10; Admin Dose 5 MG; Start 12/04/16 at 21:00 Potassium Chloride (Klor-Con 20) 20 meq DAILY PO Last administered on 10:08; Admin Dose 20 MEQ; Start 12/04/16 at 09:00 Sodium Biphosphate/ Sodium Phosphate (Fleet Enema Pediatric) 66.6 ml DAILY PRN [place] CONSTIPATION; Start 12/03/16 at 22:00 Latanoprost (Xalatan) 1 drop HS BOTH EYES Last administered on 12/17/16 21:10 ; Admin Dose 1 DROP; Start 12/03/16 at 23:00 Miscellaneous Information 1 ea NOTE XX Last administered on 12/15/16 18:02; Admin Dose 1 EA; Start 12/03/16 at 23:00 Glucose (Glutose) 15 gm Q15M PRN PO DECREASED GLUCOSE; Start 12/03/16 at 23:00 Glucose (Glutose) 22.5 gm Q15M PRN PO DECREASED GLUCOSE; Start 12/03/16 at 23:00 Dextrose (D50w Syringe) 25 ml Q15M PRN IV DECREASED GLUCOSE Last administered on 12/15/16 18:02; Admin Dose 25 ML; Start 12/03/16 at 23:00 Dextrose (D50w Syringe) 50 ml Q15M PRN IV DECREASED GLUCOSE Last administered on 12/14/16 17:32; Admin Dose 50 ML; Start 12/03/16 at 23:00 Glucagon (Glucagen) 1 mg Q15M PRN IM DECREASED GLUCOSE; Start 12/03/16 at 23:00 Glucose (Glutose) 15 gm Q15M PRN BUCCAL DECREASED GLUCOSE; Start 12/03/16 at 23: 00 Collagenase (Santyl) 1 applic DAILY TOP Last administered on 12/18/16 10:09; Admin Dose 1 APPLIC; Start 12/05/16 at 13:30 Collagenase (Santyl) 1 applic PRN PRN TOP .SOILING; Start 12/05/16 at 12:30 Diagnostic Test (Pha) (Accucheck) 1 ea 02 XX Last administered on 12/13/16 01: 34; Admin Dose 1 EA; Start 12/07/16 at 02:00 IV Flush (NS 10 ml) 10 ml PRN PRN IV IV PROTOCOL; Start 12/10/16 at 18:00 Pantoprazole (Protonix Iv) 40 mg DAILY@06 IV Last administered on 12/18/16 05: 47; Admin Dose 40 MG; Start 12/15/16 at 06:00 Insulin Glargine (Lantus) 15 unit DAILY SC Last administered on 12/18/16t 10:11 ; Admin Dose 15 UNIT; Start 12/17/16 at 09:00 Gamal Coronel DO Dec 18, 2016 13:22
[2016-12-18] MEDS ORDERED: POTASSIUM CHLORIDE 20 MEQ POWDER FOR ORAL SOLN PO ONE ×2 (13:30→20:00)
[2016-12-18] MEDS ORDERED: MAGNESIUM SULFATE 1 GM/D5W 100 ML IVPB ONE (13:30)
--- NOTE | 2016-12-18 13:57 | PN ---
Date/Time of Note Date/Time of Note DATE: 12/18/16 TIME: 13:50 Assessment/Plan VTE Prophylaxis VTE Prophylaxis Intervention: SCD's Lines/Catheters IV Catheter Type (from Nrs): PICC Line Central line still needed: Yes Urinary Cath still in place: Yes Reason Cath still needed: urinary retention Assessment/Plan Chief Complaint/Hosp Course ASSESSMENT AND PLAN: 1. Left basilar pneumonia. S/p treatment. 2. Sepsis secondary to pneumonia and urinary tract infection. Dr. Coffman is following patient in infectious disease consultation. 3. Escherichia coli extended-spectrum beta-lactamase urinary tract infection. 4. Diabetes mellitus type 2. Continue NovoLog per moderate algorithm sliding scale and Lantus. 5. History of schizophrenia and bipolar disorder. Continue patient on Zyprexa. 6. Bilateral lower extremity wound. Continue Santyl and local wound care. 7. Sinus tachycardia. Diastolic dysfunction with preserved ejection fraction per 2D echo. Dr Coronel is following from cardiology standpoint. 8. Anemia, patient is evaluated by Dr. Simpson in gastroenterology consultation , s/p endoscopy with notion of gastritis. Will check iron study B12 ferritin and folate. Dr. Valdovinos is asked to see patient in hematology oncology consultation Continue Pepcid for peptic ulcer disease prophylaxis and Lovenox for deep venous thrombosis prophylaxis. Further recommendations based on clinical course. Plan of care discussed with Dr. Aly. Problems: Subjective 24 Hr Interval Summary Free Text/Dictation Patient status post blood transfusion, no fever nausea vomiting reported. Sinus rhythm -sinus tach on telemetry. Exam/Review of Systems Vital Signs Vitals Vital Signs Date Time Temp Pulse Resp B/P Pulse Ox O2 Delivery O2 Flow Rate FiO2 12/18/16 12:23 100 12/18/16 11:30 98.2 20 113/58 96 12/17/16 05:25 21 12/14/16 20:00 Room Air Intake and Output 12/17/16 12/17/16 12/18/16 15:00 23:00 07:00 Intake Total 530 ml Output Total 600 ml Balance -70 ml Exam GENERAL: Well-developed, well-nourished female currently awake, alert. HEENT: Head is atraumatic, normocephalic. PERRLA. NECK: Supple. No mass, no thyromegaly. LUNGS: Clear bilaterally, slightly diminished at the bases. ABDOMEN: Round, soft, nondistended, nontender. Bowel sounds present. EXTREMITIES: No edema, clubbing, cyanosis. SKIN: There is no rash noted. NEUROLOGIC: The patient is alert and oriented to name and situation. Results Result Diagram: 12/18/16 0640 12/18/16 0640 Results 24 hrs Laboratory Tests Test 12/17/16 17:09 12/17/16 20:34 12/18/16 06:40 12/18/16 08:40 Bedside Glucose 103 124 130 Anion Gap 11 Basophils # 0.0 Basophils % 0.7 Blood Morphology Comment Blood Urea Nitrogen 12 Calcium Level 8.5 Carbon Dioxide Level 33 H Chloride Level 98 Creatinine 0.56 Eosinophils # 0.1 Eosinophils % 2.5 Ferritin 430.0 H Folate 3.0 Glucose Level 105 # Hematocrit 30.9 #L Hemoglobin 10.4 #L Iron Level 92 Lymphocytes # 2.6 Lymphocytes % 52.7 H Mean Corpuscular Hemoglobin 32.8 Mean Corpuscular Hemoglobin Concent 33.7 Mean Corpuscular Volume 97.3 Mean Platelet Volume 6.9 L Monocytes # 0.4 Monocytes % 7.2 Neutrophils # 1.8 Neutrophils % 36.9 L Nucleated Red Blood Cells # 0.0 Nucleated Red Blood Cells % 0.0 Percent Iron Saturation 71 H Platelet Count 339 Potassium Level 3.3 L Red Blood Count 3.17 #L Red Cell Distribution Width 17.7 H Sodium Level 139 Total Iron Binding Capacity 129 L Vitamin B12 Level 805 White Blood Count 5.0 # Test 12/18/16 12:28 Bedside Glucose 95 Medications Medications Current Medications Ondansetron HCl (Zofran Inj) 4 mg Q6H PRN IV NAUSEA AND/OR VOMITING; Start 12/03 at 22:00 Acetaminophen (Tylenol Liquid) 650 mg Q6H PRN PO PAIN LEVEL 1-3 OR FEVER; Start 12/03/16 at 22:00 Morphine Sulfate (morphine) 2 mg Q4H PRN IV PAIN LEVEL 7-10 Last administered on 12/17/16 13:30; Admin Dose 2 MG; Start 12/03/16 at 22:00 Enoxaparin Sodium (Lovenox) 30 mg DAILY SC Last administered on 12/18/16 10:12 ; Admin Dose 30 MG; Start 12/04/16 at 09:00 Eye Lubricant (Akwa Oint) 1 applic TID BOTH EYES Last administered on 12:29; Admin Dose 1 APPLIC; Start 12/04/16 at 09:00 Bisacodyl (Dulcolax Supp) 10 mg Q24H PRN [place] PRN; Start 12/03/16 at 22:00 Docusate Sodium (Colace) 200 mg QHS PO Last administered on 12/17/16 21:10; Admin Dose 200 MG; Start 12/04/16 at 21:00 Acetaminophen/ Hydrocodone Bitart ([place] (10/325)) 1 tab Q6H PRN PO PAIN; Start 12/03/16 at 22:00 Magnesium Hydroxide (Milk Of Mag) 30 ml Q24H PRN PO PRN; Start 12/03/16 at 22:00 Olanzapine (Zyprexa) 5 mg QHS PO Last administered on 12/17/16 21:10; Admin Dose 5 MG; Start 12/04/16 at 21:00 Potassium Chloride (Klor-Con 20) 20 meq DAILY PO Last administered on 10:08; Admin Dose 20 MEQ; Start 12/04/16 at 09:00 Sodium Biphosphate/ Sodium Phosphate (Fleet Enema Pediatric) 66.6 ml DAILY PRN [place] CONSTIPATION; Start 12/03/16 at 22:00 Latanoprost (Xalatan) 1 drop HS BOTH EYES Last administered on 12/17/16 21:10 ; Admin Dose 1 DROP; Start 12/03/16 at 23:00 Miscellaneous Information 1 ea NOTE XX Last administered on 12/15/16 18:02; Admin Dose 1 EA; Start 12/03/16 at 23:00 Glucose (Glutose) 15 gm Q15M PRN PO DECREASED GLUCOSE; Start 12/03/16 at 23:00 Glucose (Glutose) 22.5 gm Q15M PRN PO DECREASED GLUCOSE; Start 12/03/16 at 23:00 Dextrose (D50w Syringe) 25 ml Q15M PRN IV DECREASED GLUCOSE Last administered on 12/15/16 18:02; Admin Dose 25 ML; Start 12/03/16 at 23:00 Dextrose (D50w Syringe) 50 ml Q15M PRN IV DECREASED GLUCOSE Last administered on 12/14/16 17:32; Admin Dose 50 ML; Start 12/03/16 at 23:00 Glucagon (Glucagen) 1 mg Q15M PRN IM DECREASED GLUCOSE; Start 12/03/16 at 23:00 Glucose (Glutose) 15 gm Q15M PRN BUCCAL DECREASED GLUCOSE; Start 12/03/16 at 23: 00 Collagenase (Santyl) 1 applic DAILY TOP Last administered on 12/18/16 10:09; Admin Dose 1 APPLIC; Start 12/05/16 at 13:30 Collagenase (Santyl) 1 applic PRN PRN TOP .SOILING; Start 12/05/16 at 12:30 Diagnostic Test (Pha) (Accucheck) 1 ea 02 XX Last administered on 12/13/16 01: 34; Admin Dose 1 EA; Start 12/07/16 at 02:00 IV Flush (NS 10 ml) 10 ml PRN PRN IV IV PROTOCOL; Start 12/10/16 at 18:00 Pantoprazole (Protonix Iv) 40 mg DAILY@06 IV Last administered on 12/18/16 05: 47; Admin Dose 40 MG; Start 12/15/16 at 06:00 Insulin Glargine (Lantus) 15 unit DAILY SC Last administered on 12/18/16 10:11 ; Admin Dose 15 UNIT; Start 12/17/16 at 09:00 Potassium Chloride 40 meq 40 meq ONCE ONCE PO ; Start 12/18/16 at 20:00; Stop 12/18/16 at 20:01 Magnesium Sulfate/ Dextrose (Magnesium Sulfate 1 Gm/D5W) 100 ml @ 100 mls/hr ONCE ONCE IVPB ; Start 12/18/16 at 13:30; Stop 12/18/16 at 14:29 DENA SALGUERO Dec 18, 2016 13:57
[2016-12-18] MEDS: DOCUSATE SODIUM 100 MG CAP PO SCH (20:59)
[2016-12-18] MEDS: OLANZAPINE 5 MG TAB PO SCH (20:59)
[2016-12-18] MEDS: LATANOPROST 0.005% 2.5 ML OPH BOTH EYES SCH (21:56)
[2016-12-19] MEDS: ACCUCHECK XX SCH (02:00)
[2016-12-19] MEDS: PANTOPRAZOLE 40 MG INJ IV SCH (05:10)
[2016-12-19] MEDS: FUROSEMIDE 20 MG TAB PO SCH ×2 (05:12→17:28)
[2016-12-19 05:33] LABS: BASOPHILS % 0.7 % (0.0-2.0); EOSINOPHILS # 0.1 10^3/ul (0.0-0.5); EOSINOPHILS % 2.1 % (0.0-7.0); HEMATOCRIT 31.7 % (37.0-47.0); HEMOGLOBIN 10.7 g/dl (12.0-16.0); LYMPHOCYTES # 2.6 10^3/ul (0.8-2.9); LYMPHOCYTES % 49.9 % (15.0-51.0); MEAN CORPUSCULAR HEMOGLOBIN 33.1 pg (29.0-33.0); MEAN CORPUSCULAR HGB CONC 33.7 g/dl (32.0-37.0); MEAN CORPUSCULAR VOLUME 98.2 fl (82.0-101.0); MEAN PLATELET VOLUME 7.1 fl (7.4-10.4); MONOCYTE # 0.4 10^3/ul (0.3-0.9); MONOCYTES % 7.9 % (0.0-11.0); NEUTROPHILS % 39.4 % (39.0-77.0); PLATELET COUNT 320 10^3/UL (140-440); RED BLOOD COUNT 3.22 10^6/ul (4.20-5.40); RED CELL DISTRIBUTION WIDTH 17.6 % (11.5-14.5); UNCORRECTED WBC 5.2 10^3/ul (4.8-10.8); WHITE BLOOD COUNT 5.2 10^3/ul (4.8-10.8)
[2016-12-19 05:48] LABS: POTASSIUM 4.3 mmol/L (3.5-5.1)
[2016-12-19 05:50] LABS: CREATININE 0.6 mg/dl (0.44-1.00)
[2016-12-19 05:51] LABS: CALCIUM 8.7 mg/dl (8.4-10.2)
[2016-12-19 06:02] LABS: CONDITION 1; LH ANALYZER COMMENTS 1
[2016-12-19 07:57] VITALS: BP 141/67; RESP 20
[2016-12-19] MEDS: INSULIN ASPART [NOVOLOG] 3 ML PEN SC SCH ×7 (08:32→21:00)
[2016-12-19] MEDS: ENOXAPARIN 30 MG/0.3 ML SYG SC SCH (08:34)
[2016-12-19] MEDS: POTASSIUM CHLORIDE (SR) 20 MEQ TAB PO SCH (08:34)
[2016-12-19] MEDS: OCULAR LUBRICANT 3.5 GM OPH OINT BOTH EYES SCH ×3 (08:34→20:29)
[2016-12-19] MEDS: INSULIN GLARGINE [LANtus] 3 ML PEN SC SCH (09:03)
--- NOTE | 2016-12-19 16:37 | CONS ---
Date/Time of Note Date/Time of Note DATE: 12/19/16 TIME: 16:30 Assessment/Plan Assessment/Plan Chief Complaint/Hosp Course The patient is a 56 year old woman admitted with left basilar pneumonia and E. coli extended spectrum beta-lactamase UTI, for which we were consulted for anemia. The patient was evaluated by GI and underwent EGD on 12/13/16 that demonstrated diffuse moderate degree of gastritis in the stomach, without ulcer , neoplasm. Colonoscopy demonstrated minimal to moderate degree of hemorhoids. The patient's Hgb was 7.8 on 12/17, s/p 2 units pRBCs, now 10.7 now. MCV 98.2. Fe 92, TBIC 129 (low), %sat 71, ferritin 430, Vitamin B12 normal and folate on lower end of normal at 3.0 (normal 2.8-20.0). - Iron panel not consistent with iron deficiency. Vitamin B12 WNL, folate on lower end of normal, may possibly benefit from folic acid supplementation. RBC folate may be more junior sales representative of folate stores. - Will order repeat folate, Vitamin B12, methylmalonic acid, homocysteine, along with LDH, haptoglobin, retic count though unlikely hemolysis - Peripheral smear review by path pending Will continue to follow Problems: Consultation Date/Type/Reason Admit Date/Time Dec 03, 2016 at 22:01 Date of Consultation: Dec 19, 2016 Type of Consultation: Hematology/Oncology Hx of Present Illness The patient is a 56 year old woman admitted with left basilar pneumonia and E. coli extended spectrum beta-lactamase UTI, for which we were consulted for anemia. The patient was evaluated by GI and underwent EGD on 12/13/16 that demonstrated diffuse moderate degree of gastritis in the stomach, without ulcer , neoplasm. Colonoscopy demonstrated minimal to moderate degree of hemorhoids. The patient's Hgb was 7.8 on 12/17, s/p 2 units pRBCs, now 10.7 now. MCV 98.2. Fe 92, TBIC 129 (low), %sat 71, ferritin 430, Vitamin B12 normal and folate on lower end of normal at 3.0 (normal 2.8-20.0). Patient denies melena or hematochezia. No bleeding. Constitutional: requiring IVF, requiring O2 Eyes: no complaints ENT: no complaints Respiratory: no complaints Cardiovascular: no complaints Gastrointestinal: no complaints Genitourinary: no complaints Musculoskeletal: no complaints Skin: no complaints Neurologic: no complaints Psychological: nl mood/affect Past Medical History Diabetes mellitus type 2 and history of schizophrenia and bipolar disorder Medical History: diabetes, high cholesterol Family History Significant Family History: no pertinent family hx Social History Smoking Status: Never smoker Exam/Review of Systems Vital Signs Vitals Vital Signs Date Time Temp Pulse Resp B/P Pulse Ox O2 Delivery O2 Flow Rate FiO2 12/19/16 07:57 97.2 20 20 141/67 99 12/18/16 14:48 21 Intake and Output 12/18/16 12/18/16 12/19/16 15:00 23:00 07:00 Intake Total 600 ml 480 ml Output Total 1500 ml 800 ml Balance -900 ml -320 ml Exam Constitutional: alert, oriented Psych: no complaints Head: normocephalic Eyes: nl conjunctiva Neck: non-tender, supple Respiratory: clear to auscultation Cardiovascular: regular rate and rhythm Gastrointestinal: non-tender, soft Musculoskeletal: nl extremities to inspection Results Result Diagram: 12/19/16 0440 12/19/16 0440 Results 24 hrs Laboratory Tests Test 12/18/16 17:43 12/18/16 19:59 12/19/16 01:54 12/19/16 04:40 Bedside Glucose 179 73 180 Anion Gap 11 Basophils # 0.0 Basophils % 0.7 Blood Morphology Comment Blood Urea Nitrogen 14 Calcium Level 8.7 Carbon Dioxide Level 32 H Chloride Level 98 Creatinine 0.60 Eosinophils # 0.1 Eosinophils % 2.1 Glucose Level 203 Hematocrit 31.7 L Hemoglobin 10.7 L Lymphocytes # 2.6 Lymphocytes % 49.9 Mean Corpuscular Hemoglobin 33.1 H Mean Corpuscular Hemoglobin Concent 33.7 Mean Corpuscular Volume 98.2 Mean Platelet Volume 7.1 L Monocytes # 0.4 Monocytes % 7.9 Neutrophils # 2.0 Neutrophils % 39.4 Nucleated Red Blood Cells # 0.0 Nucleated Red Blood Cells % 0.0 Platelet Count 320 Potassium Level 4.3 Prealbumin 13.6 L Red Blood Count 3.22 L Red Cell Distribution Width 17.6 H Sodium Level 137 White Blood Count 5.2 Test 12/19/16 08:00 12/19/16 12:21 Bedside Glucose 257 H 95 Medications Medications Current Medications Ondansetron HCl (Zofran Inj) 4 mg Q6H PRN IV NAUSEA AND/OR VOMITING; Start 12/03 at 22:00 Acetaminophen (Tylenol Liquid) 650 mg Q6H PRN PO PAIN LEVEL 1-3 OR FEVER; Start 12/03/16 at 22:00 Morphine Sulfate (morphine) 2 mg Q4H PRN IV PAIN LEVEL 7-10 Last administered on 12/17/16 13:30; Admin Dose 2 MG; Start 12/03/16 at 22:00 Enoxaparin Sodium (Lovenox) 30 mg DAILY SC Last administered on 12/19/16 08:34 ; Admin Dose 30 MG; Start 12/04/16 at 09:00 Eye Lubricant (Akwa Oint) 1 applic TID BOTH EYES Last administered on 12:34; Admin Dose 1 APPLIC; Start 12/04/16 at 09:00 Bisacodyl (Dulcolax Supp) 10 mg Q24H PRN [place] PRN; Start 12/03/16 at 22:00 Docusate Sodium (Colace) 200 mg QHS PO Last administered on 12/18/16 20:59; Admin Dose 200 MG; Start 12/04/16 at 21:00 Acetaminophen/ Hydrocodone Bitart ([place] (10/325)) 1 tab Q6H PRN PO PAIN; Start 12/03/16 at 22:00 Magnesium Hydroxide (Milk Of Mag) 30 ml Q24H PRN PO PRN; Start 12/03/16 at 22:00 Olanzapine (Zyprexa) 5 mg QHS PO Last administered on 12/18/16 20:59; Admin Dose 5 MG; Start 12/04/16 at 21:00 Potassium Chloride (Klor-Con 20) 20 meq DAILY PO Last administered on 08:34; Admin Dose 20 MEQ; Start 12/04/16 at 09:00 Sodium Biphosphate/ Sodium Phosphate (Fleet Enema Pediatric) 66.6 ml DAILY PRN [place] CONSTIPATION; Start 12/03/16 at 22:00 Latanoprost (Xalatan) 1 drop HS BOTH EYES Last administered on 12/18/16 21:56 ; Admin Dose 1 DROP; Start 12/03/16 at 23:00 Miscellaneous Information 1 ea NOTE XX Last administered on 12/15/16 18:02; Admin Dose 1 EA; Start 12/03/16 at 23:00 Glucose (Glutose) 15 gm Q15M PRN PO DECREASED GLUCOSE; Start 12/03/16 at 23:00 Glucose (Glutose) 22.5 gm Q15M PRN PO DECREASED GLUCOSE; Start 12/03/16 at 23:00 Dextrose (D50w Syringe) 25 ml Q15M PRN IV DECREASED GLUCOSE Last administered on 12/15/16 18:02; Admin Dose 25 ML; Start 12/03/16 at 23:00 Dextrose (D50w Syringe) 50 ml Q15M PRN IV DECREASED GLUCOSE Last administered on 12/14/16 17:32; Admin Dose 50 ML; Start 12/03/16 at 23:00 Glucagon (Glucagen) 1 mg Q15M PRN IM DECREASED GLUCOSE; Start 12/03/16 at 23:00 Glucose (Glutose) 15 gm Q15M PRN BUCCAL DECREASED GLUCOSE; Start 12/03/16 at 23: 00 Collagenase (Santyl) 1 applic DAILY TOP Last administered on 12/18/16 10:09; Admin Dose 1 APPLIC; Start 12/05/16 at 13:30 Collagenase (Santyl) 1 applic PRN PRN TOP .SOILING; Start 12/05/16 at 12:30 Diagnostic Test (Pha) (Accucheck) 1 ea 02 XX Last administered on 12/13/16 01: 34; Admin Dose 1 EA; Start 12/07/16 at 02:00 IV Flush (NS 10 ml) 10 ml PRN PRN IV IV PROTOCOL; Start 12/10/16 at 18:00 Pantoprazole (Protonix Iv) 40 mg DAILY@06 IV Last administered on 12/19/16 05: 10; Admin Dose 40 MG; Start 12/15/16 at 06:00 Insulin Glargine (Lantus) 15 unit DAILY SC Last administered on 12/19/16 09:03 ; Admin Dose 15 UNIT; Start 12/17/16 at 09:00 MOHINI REAGAN MD Dec 19, 2016 16:37
[2016-12-19] MEDS: COLLAGENASE 30 GM TUBE TOP SCH (17:37)
--- NOTE | 2016-12-19 18:45 | PN ---
Date/Time of Note Date/Time of Note DATE: 12/19/16 TIME: 18:44 Assessment/Plan VTE Prophylaxis VTE Prophylaxis Intervention: SCD's Lines/Catheters IV Catheter Type (from Nrs): PICC Line Central line still needed: Yes Urinary Cath still in place: Yes Reason Cath still needed: urinary retention Assessment/Plan Chief Complaint/Hosp Course ASSESSMENT AND PLAN: 1. Left basilar pneumonia. S/p treatment. 2. Sepsis secondary to pneumonia and urinary tract infection. Dr. Coffman is following patient in infectious disease consultation. 3. Escherichia coli extended-spectrum beta-lactamase urinary tract infection. 4. Diabetes mellitus type 2. Continue NovoLog per moderate algorithm sliding scale and Lantus. 5. History of schizophrenia and bipolar disorder. Continue patient on Zyprexa. 6. Bilateral lower extremity wound. Continue Santyl and local wound care. 7. Sinus tachycardia. Diastolic dysfunction with preserved ejection fraction per 2D echo. Dr Coronel is following from cardiology standpoint. 8. Anemia with recent drop in hemoglobin, status post blood transfusion. patients/p evaluation by Dr. Simpson in gastroenterology consultation, s/p endoscopy with notion of gastritis. Dr. Valdovinos is following in hematology oncology consultation. Continue Pepcid for peptic ulcer disease prophylaxis and Lovenox for deep venous thrombosis prophylaxis. Further recommendations based on clinical course. Plan of care discussed with Dr. Aly. Problems: Exam/Review of Systems Vital Signs Vitals Vital Signs Date Time Temp Pulse Resp B/P Pulse Ox O2 Delivery O2 Flow Rate FiO2 12/19/16 07:57 97.2 20 20 141/67 99 12/18/16 14:48 21 Intake and Output 12/18/16 12/18/16 12/19/16 15:00 23:00 07:00 Intake Total 600 ml 480 ml Output Total 1500 ml 800 ml Balance -900 ml -320 ml Exam GENERAL: Well-developed, well-nourished female currently awake, alert. HEENT: Head is atraumatic, normocephalic. PERRLA. NECK: Supple. No mass, no thyromegaly. LUNGS: Clear bilaterally, slightly diminished at the bases. ABDOMEN: Round, soft, nondistended, nontender. Bowel sounds present. EXTREMITIES: No edema, clubbing, cyanosis. SKIN: There is no rash noted. NEUROLOGIC: The patient is alert and oriented to name and situation. Results Result Diagram: 12/19/16 0440 12/19/16 0440 Results 24 hrs Laboratory Tests Test 12/18/16 19:59 12/19/16 01:54 12/19/16 04:40 12/19/16 08:00 Bedside Glucose 73 180 257 H Anion Gap 11 Basophils # 0.0 Basophils % 0.7 Blood Morphology Comment Blood Urea Nitrogen 14 Calcium Level 8.7 Carbon Dioxide Level 32 H Chloride Level 98 Creatinine 0.60 Eosinophils # 0.1 Eosinophils % 2.1 Glucose Level 203 Hematocrit 31.7 L Hemoglobin 10.7 L Lymphocytes # 2.6 Lymphocytes % 49.9 Mean Corpuscular Hemoglobin 33.1 H Mean Corpuscular Hemoglobin Concent 33.7 Mean Corpuscular Volume 98.2 Mean Platelet Volume 7.1 L Monocytes # 0.4 Monocytes % 7.9 Neutrophils # 2.0 Neutrophils % 39.4 Nucleated Red Blood Cells # 0.0 Nucleated Red Blood Cells % 0.0 Platelet Count 320 Potassium Level 4.3 Prealbumin 13.6 L Red Blood Count 3.22 L Red Cell Distribution Width 17.6 H Sodium Level 137 White Blood Count 5.2 Test 12/19/16 12:21 12/19/16 17:27 Bedside Glucose 95 147 Medications Medications Current Medications Ondansetron HCl (Zofran Inj) 4 mg Q6H PRN IV NAUSEA AND/OR VOMITING; Start 12/03 at 22:00 Acetaminophen (Tylenol Liquid) 650 mg Q6H PRN PO PAIN LEVEL 1-3 OR FEVER; Start 12/03/16 at 22:00 Morphine Sulfate (morphine) 2 mg Q4H PRN IV PAIN LEVEL 7-10 Last administered on 12/17/16 13:30; Admin Dose 2 MG; Start 12/03/16 at 22:00 Enoxaparin Sodium (Lovenox) 30 mg DAILY SC Last administered on 12/19/16 08:34 ; Admin Dose 30 MG; Start 12/04/16 at 09:00 Eye Lubricant (Akwa Oint) 1 applic TID BOTH EYES Last administered on 12:34; Admin Dose 1 APPLIC; Start 12/04/16 at 09:00 Bisacodyl (Dulcolax Supp) 10 mg Q24H PRN [place] PRN; Start 12/03/16 at 22:00 Docusate Sodium (Colace) 200 mg QHS PO Last administered on 12/18/16 20:59; Admin Dose 200 MG; Start 12/04/16 at 21:00 Acetaminophen/ Hydrocodone Bitart ([place] (10/325)) 1 tab Q6H PRN PO PAIN; Start 12/03/16 at 22:00 Magnesium Hydroxide (Milk Of Mag) 30 ml Q24H PRN PO PRN; Start 12/03/16 at 22:00 Olanzapine (Zyprexa) 5 mg QHS PO Last administered on 12/18/16 20:59; Admin Dose 5 MG; Start 12/04/16 at 21:00 Potassium Chloride (Klor-Con 20) 20 meq DAILY PO Last administered on 08:34; Admin Dose 20 MEQ; Start 12/04/16 at 09:00 Sodium Biphosphate/ Sodium Phosphate (Fleet Enema Pediatric) 66.6 ml DAILY PRN [place] CONSTIPATION; Start 12/03/16 at 22:00 Latanoprost (Xalatan) 1 drop HS BOTH EYES Last administered on 12/18/16 21:56 ; Admin Dose 1 DROP; Start 12/03/16 at 23:00 Miscellaneous Information 1 ea NOTE XX Last administered on 12/15/16 18:02; Admin Dose 1 EA; Start 12/03/16 at 23:00 Glucose (Glutose) 15 gm Q15M PRN PO DECREASED GLUCOSE; Start 12/03/16 at 23:00 Glucose (Glutose) 22.5 gm Q15M PRN PO DECREASED GLUCOSE; Start 12/03/16 at 23:00 Dextrose (D50w Syringe) 25 ml Q15M PRN IV DECREASED GLUCOSE Last administered on 12/15/16 18:02; Admin Dose 25 ML; Start 12/03/16 at 23:00 Dextrose (D50w Syringe) 50 ml Q15M PRN IV DECREASED GLUCOSE Last administered on 12/14/16 17:32; Admin Dose 50 ML; Start 12/03/16 at 23:00 Glucagon (Glucagen) 1 mg Q15M PRN IM DECREASED GLUCOSE; Start 12/03/16 at 23:00 Glucose (Glutose) 15 gm Q15M PRN BUCCAL DECREASED GLUCOSE; Start 12/03/16 at 23: 00 Collagenase (Santyl) 1 applic DAILY TOP Last administered on 12/19/16 17:37; Admin Dose 1 APPLIC; Start 12/05/16 at 13:30 Collagenase (Santyl) 1 applic PRN PRN TOP .SOILING; Start 12/05/16 at 12:30 Diagnostic Test (Pha) (Accucheck) 1 ea 02 XX Last administered on 12/13/16 01: 34; Admin Dose 1 EA; Start 12/07/16 at 02:00 IV Flush (NS 10 ml) 10 ml PRN PRN IV IV PROTOCOL; Start 12/10/16 at 18:00 Insulin Glargine (Lantus) 15 unit DAILY SC Last administered on 12/19/16 09:03 ; Admin Dose 15 UNIT; Start 12/17/16 at 09:00 Pantoprazole (Protonix Tab) 40 mg DAILY@06 PO ; Start 12/20/16 at 06:00 DENA SALGUERO Dec 19, 2016 18:45
[2016-12-19 20:26] VITALS: BP 105/58; RESP 19
[2016-12-19] MEDS: DOCUSATE SODIUM 100 MG CAP PO SCH (20:30)
[2016-12-19] MEDS: LATANOPROST 0.005% 2.5 ML OPH BOTH EYES SCH (20:30)
[2016-12-19] MEDS: OLANZAPINE 5 MG TAB PO SCH (20:30)
[2016-12-20] MEDS: ACCUCHECK XX SCH (02:00)
[2016-12-20] MEDS: PANTOPRAZOLE (EC) 40 MG TAB PO SCH (05:27)
[2016-12-20] MEDS: FUROSEMIDE 20 MG TAB PO SCH (05:31)
[2016-12-20 06:06] LABS: BASOPHILS % 0.7 % (0.0-2.0); EOSINOPHILS # 0.2 10^3/ul (0.0-0.5); EOSINOPHILS % 3.5 % (0.0-7.0); HEMATOCRIT 34.7 % (37.0-47.0); HEMOGLOBIN 11.8 g/dl (12.0-16.0); LYMPHOCYTES # 3.1 10^3/ul (0.8-2.9); LYMPHOCYTES % 60.9 % (15.0-51.0); MEAN CORPUSCULAR HEMOGLOBIN 33.1 pg (29.0-33.0); MEAN CORPUSCULAR VOLUME 97.4 fl (82.0-101.0); MEAN PLATELET VOLUME 6.9 fl (7.4-10.4); MONOCYTE # 0.3 10^3/ul (0.3-0.9); MONOCYTES % 6.6 % (0.0-11.0); NEUTROPHIL # 1.4 10^3/ul (1.6-7.5); NEUTROPHILS % 28.3 % (39.0-77.0); PLATELET COUNT 348 10^3/UL (140-440); RED BLOOD COUNT 3.56 10^6/ul (4.20-5.40); RED CELL DISTRIBUTION WIDTH 16.8 % (11.5-14.5); UNCORRECTED WBC 5.1 10^3/ul (4.8-10.8)
[2016-12-20 06:18] LABS: CONDITION 1; LH ANALYZER COMMENTS 1
[2016-12-20 06:19] LABS: RETICULOCYTE COUNT % 3.4 % (0.5-1.5)
[2016-12-20 06:22] LABS: POTASSIUM 4.2 mmol/L (3.5-5.1)
[2016-12-20 06:25] LABS: CALCIUM 9.1 mg/dl (8.4-10.2); CREATININE 0.59 mg/dl (0.44-1.00)
[2016-12-20 06:28] LABS: IRON 52 ug/dl (35-150)
[2016-12-20 06:37] LABS: TOTAL IRON BINDING CAPACITY 154 ug/dl (241-421)
[2016-12-20 06:58] LABS: ALBUMIN 3.1 g/dl (3.3-4.9)
[2016-12-20 07:00] LABS: BILIRUBIN,INDIRECT 0.3 mg/dl (0-1.1); BILIRUBIN,TOTAL 0.3 mg/dl (0.2-1.3)
[2016-12-20 07:01] LABS: TOTAL PROTEIN 6.6 g/dl (6.1-8.1)
[2016-12-20 07:51] VITALS: BP 121/57; RESP 20
[2016-12-20] MEDS: INSULIN ASPART [NOVOLOG] 3 ML PEN SC SCH ×7 (08:27→21:00)
[2016-12-20] MEDS: POTASSIUM CHLORIDE (SR) 20 MEQ TAB PO SCH (08:30)
[2016-12-20] MEDS: OCULAR LUBRICANT 3.5 GM OPH OINT BOTH EYES SCH ×3 (08:31→20:19)
[2016-12-20] MEDS: INSULIN GLARGINE [LANtus] 3 ML PEN SC SCH (08:33)
[2016-12-20] MEDS: ENOXAPARIN 30 MG/0.3 ML SYG SC SCH (08:33)
[2016-12-20] MEDS: COLLAGENASE 30 GM TUBE TOP SCH (08:33)
[2016-12-20 10:22] LABS: FOLATE 4.3 ng/ml (2.8-20.0)
--- NOTE | 2016-12-20 13:27 | CONS ---
Date/Time of Note Date/Time of Note DATE: 12/20/16 TIME: 13:25 Assessment/Plan Assessment/Plan Chief Complaint/Hosp Course The patient is a 56 year old woman admitted with left basilar pneumonia and E. coli extended spectrum beta-lactamase UTI, for which we were consulted for anemia. The patient was evaluated by GI and underwent EGD on 12/13/16 that demonstrated diffuse moderate degree of gastritis in the stomach, without ulcer , neoplasm. Colonoscopy demonstrated minimal to moderate degree of hemorhoids. The patient's Hgb was 7.8 on 12/17, s/p 2 units pRBCs, 10.7 yesterday and now increased to 11.8. - Repeat iron panel suggestive of anemia of chronic disease. Vitamin B12 and folate WNL. RBC folate, homocysteine and methylmalonic acid pending. LDH normal, haptoglobin pending, retic count inappropriately low for anemia. - Peripheral smear review by path pending Will continue to follow Problems: Consultation Date/Type/Reason Admit Date/Time Dec 03, 2016 at 22:01 Initial Consult Date 12/19/16 Type of Consultation: Hematology/Oncology 24 HR Interval Summary Free Text/Dictation Patient doing well, no complaints. Exam/Review of Systems Vital Signs Vitals Vital Signs Date Time Temp Pulse Resp B/P Pulse Ox O2 Delivery O2 Flow Rate FiO2 12/20/16 07:51 97.4 110 20 121/57 96 12/18/16 14:48 21 Intake and Output 12/19/16 12/19/16 12/20/16 15:00 23:00 07:00 Intake Total 1170 ml 400 ml Output Total 1050 ml 900 ml Balance 120 ml -500 ml Exam Constitutional: alert, oriented Psych: no complaints Head: normocephalic Eyes: nl conjunctiva Neck: non-tender, supple Respiratory: clear to auscultation Cardiovascular: regular rate and rhythm Gastrointestinal: non-tender, soft Musculoskeletal: nl extremities to inspection Results Result Diagram: 12/20/16 0525 12/20/16 0525 Results 24 hrs Laboratory Tests Test 12/19/16 17:27 12/19/16 20:28 12/20/16 05:25 12/20/16 07:38 Bedside Glucose 147 122 254 H Absolute Reticulocyte Count 0.122 H Alanine Aminotransferase (ALT/SGPT) 25 Albumin 3.1 L Alkaline Phosphatase 142 H Anion Gap 13 Aspartate Amino Transf (AST/SGOT) 34 Basophils # 0.0 Basophils % 0.7 Blood Morphology Comment Blood Urea Nitrogen 16 Calcium Level 9.1 Carbon Dioxide Level 32 H Chloride Level 95 L Creatinine 0.59 Direct Bilirubin 0.00 Eosinophils # 0.2 Eosinophils % 3.5 Ferritin 486.0 H Folate 4.3 Glucose Level 227 H Hematocrit 34.7 L Hemoglobin 11.8 L Indirect Bilirubin 0.3 Iron Level 52 Lactate Dehydrogenase 595 Lymphocytes # 3.1 H Lymphocytes % 60.9 H Mean Corpuscular Hemoglobin 33.1 H Mean Corpuscular Hemoglobin Concent 34.0 Mean Corpuscular Volume 97.4 Mean Platelet Volume 6.9 L Monocytes # 0.3 Monocytes % 6.6 Neutrophils # 1.4 L Neutrophils % 28.3 L Nucleated Red Blood Cells # 0.0 Nucleated Red Blood Cells % 0.0 Percent Iron Saturation 34 Percent Reticulocyte Count 3.4 H Platelet Count 348 Potassium Level 4.2 Red Blood Count 3.56 L Red Cell Distribution Width 16.8 H Sodium Level 136 Total Bilirubin 0.3 Total Iron Binding Capacity 154 L Total Protein 6.6 Vitamin B12 Level 836 White Blood Count 5.1 Test 12/20/16 11:21 Bedside Glucose 206 Medications Medications Current Medications Ondansetron HCl (Zofran Inj) 4 mg Q6H PRN IV NAUSEA AND/OR VOMITING; Start 12/03 at 22:00 Acetaminophen (Tylenol Liquid) 650 mg Q6H PRN PO PAIN LEVEL 1-3 OR FEVER; Start 12/03/16 at 22:00 Morphine Sulfate (morphine) 2 mg Q4H PRN IV PAIN LEVEL 7-10 Last administered on 12/17/16 13:30; Admin Dose 2 MG; Start 12/03/16 at 22:00 Enoxaparin Sodium (Lovenox) 30 mg DAILY SC Last administered on 12/20/16 08:33 ; Admin Dose 30 MG; Start 12/04/16 at 09:00 Eye Lubricant (Akwa Oint) 1 applic TID BOTH EYES Last administered on 12:04; Admin Dose 1 APPLIC; Start 12/04/16 at 09:00 Bisacodyl (Dulcolax Supp) 10 mg Q24H PRN [place] PRN; Start 12/03/16 at 22:00 Docusate Sodium (Colace) 200 mg QHS PO Last administered on 12/19/16 20:30; Admin Dose 200 MG; Start 12/04/16 at 21:00 Acetaminophen/ Hydrocodone Bitart ([place] (10325)) 1 tab Q6H PRN PO PAIN; Start 12/03/16 at 22:00 Magnesium Hydroxide (Milk Of Mag) 30 ml Q24H PRN PO PRN; Start 12/03/16 at 22:00 Olanzapine (Zyprexa) 5 mg QHS PO Last administered on 12/19/16 20:30; Admin Dose 5 MG; Start 12/04/16 at 21:00 Potassium Chloride (Klor-Con 20) 20 meq DAILY PO Last administered on 08:30; Admin Dose 20 MEQ; Start 12/04/16 at 09:00 Sodium Biphosphate/ Sodium Phosphate (Fleet Enema Pediatric) 66.6 ml DAILY PRN [place] CONSTIPATION; Start 12/03/16 at 22:00 Latanoprost (Xalatan) 1 drop HS BOTH EYES Last administered on 12/19/16 20:30 ; Admin Dose 1 DROP; Start 12/03/16 at 23:00 Miscellaneous Information 1 ea NOTE XX Last administered on 12/15/16 18:02; Admin Dose 1 EA; Start 12/03/16 at 23:00 Glucose (Glutose) 15 gm Q15M PRN PO DECREASED GLUCOSE; Start 12/03/16 at 23:00 Glucose (Glutose) 22.5 gm Q15M PRN PO DECREASED GLUCOSE; Start 12/03/16 at 23:00 Dextrose (D50w Syringe) 25 ml Q15M PRN IV DECREASED GLUCOSE Last administered on 12/15/16 18:02; Admin Dose 25 ML; Start 12/03/16 at 23:00 Dextrose (D50w Syringe) 50 ml Q15M PRN IV DECREASED GLUCOSE Last administered on 12/14/16 17:32; Admin Dose 50 ML; Start 12/03/16 at 23:00 Glucagon (Glucagen) 1 mg Q15M PRN IM DECREASED GLUCOSE; Start 12/03/16 at 23:00 Glucose (Glutose) 15 gm Q15M PRN BUCCAL DECREASED GLUCOSE; Start 12/03/16 at 23: 00 Collagenase (Santyl) 1 applic DAILY TOP Last administered on 12/20/16 08:33; Admin Dose 1 APPLIC; Start 12/05/16 at 13:30 Collagenase (Santyl) 1 applic PRN PRN TOP .SOILING; Start 12/05/16 at 12:30 Diagnostic Test (Pha) (Accucheck) 1 ea 02 XX Last administered on 12/13/16 01: 34; Admin Dose 1 EA; Start 12/07/16 at 02:00 IV Flush (NS 10 ml) 10 ml PRN PRN IV IV PROTOCOL; Start 12/10/16 at 18:00 Insulin Glargine (Lantus) 15 unit DAILY SC Last administered on 12/20/16 08:33 ; Admin Dose 15 UNIT; Start 12/17/16 at 09:00 Pantoprazole (Protonix Tab) 40 mg DAILY@06 PO Last administered on 12/20/16 05 :27; Admin Dose 40 MG; Start 12/20/16 at 06:00 MOHINI REAGAN MD Dec 20, 2016 13:27
--- NOTE | 2016-12-20 15:00 | CONS ---
Date/Time of Note Date/Time of Note DATE: 12/20/16 TIME: 14:58 Assessment/Plan Assessment/Plan Additional Assessment/Plan Severe sepsis Likely PNA and UTI Preserved ejection fraction Psychiatric disorder -Edema has improved, would decrease to 20 mg Lasix by mouth daily, maintain potassium above 4.0 and magnesium above 2.0. Blood pressure trend remains stable. Consultation Date/Type/Reason Admit Date/Time Dec 03, 2016 at 22:01 Type of Consultation: cv 24 HR Interval Summary Free Text/Dictation Patient denies shortness of breath, chest pain or palpitations, feeling better Exam/Review of Systems Vital Signs Vitals Vital Signs Date Time Temp Pulse Resp B/P Pulse Ox O2 Delivery O2 Flow Rate FiO2 12/20/16 07:51 97.4 110 20 121/57 96 12/18/16 14:48 21 Intake and Output 12/19/16 12/19/16 12/20/16 15:00 23:00 07:00 Intake Total 1170 ml 400 ml Output Total 1050 ml 900 ml Balance 120 ml -500 ml Exam Following commands, no apparent distress, eating lunch Constitutional: alert Head: normocephalic Neck: supple Respiratory: other (course breath sounds bilaterally, no wheezing) Cardiovascular: other (S1 and S2 heard), regular rate and rhythm Gastrointestinal: bowel sounds, non-tender, soft Extremities: edema (mild) Results Result Diagram: 12/20/1625 12/20/16 0525 Results 24 hrs Laboratory Tests Test 12/19/16 17:27 12/19/16 20:28 12/20/16 05:25 12/20/16 07:38 Bedside Glucose 147 122 254 H Absolute Reticulocyte Count 0.122 H Alanine Aminotransferase (ALT/SGPT) 25 Albumin 3.1 L Alkaline Phosphatase 142 H Anion Gap 13 Aspartate Amino Transf (AST/SGOT) 34 Basophils # 0.0 Basophils % 0.7 Blood Morphology Comment Blood Urea Nitrogen 16 Calcium Level 9.1 Carbon Dioxide Level 32 H Chloride Level 95 L Creatinine 0.59 Direct Bilirubin 0.00 Eosinophils # 0.2 Eosinophils % 3.5 Ferritin 486.0 H Folate 4.3 Glucose Level 227 H Hematocrit 34.7 L Hemoglobin 11.8 L Indirect Bilirubin 0.3 Iron Level 52 Lactate Dehydrogenase 595 Lymphocytes # 3.1 H Lymphocytes % 60.9 H Mean Corpuscular Hemoglobin 33.1 H Mean Corpuscular Hemoglobin Concent 34.0 Mean Corpuscular Volume 97.4 Mean Platelet Volume 6.9 L Monocytes # 0.3 Monocytes % 6.6 Neutrophils # 1.4 L Neutrophils % 28.3 L Nucleated Red Blood Cells # 0.0 Nucleated Red Blood Cells % 0.0 Percent Iron Saturation 34 Percent Reticulocyte Count 3.4 H Platelet Count 348 Potassium Level 4.2 Red Blood Count 3.56 L Red Cell Distribution Width 16.8 H Sodium Level 136 Total Bilirubin 0.3 Total Iron Binding Capacity 154 L Total Protein 6.6 Vitamin B12 Level 836 White Blood Count 5.1 Test 12/20/16 11:21 Bedside Glucose 206 Medications Medications Current Medications Ondansetron HCl (Zofran Inj) 4 mg Q6H PRN IV NAUSEA AND/OR VOMITING; Start 12/03 at 22:00 Acetaminophen (Tylenol Liquid) 650 mg Q6H PRN PO PAIN LEVEL 1-3 OR FEVER; Start 12/03/16 at 22:00 Morphine Sulfate (morphine) 2 mg Q4H PRN IV PAIN LEVEL 7-10 Last administered on 12/17/16 13:30; Admin Dose 2 MG; Start 12/03/16 at 22:00 Enoxaparin Sodium (Lovenox) 30 mg DAILY SC Last administered on 12/20/16 08:33 ; Admin Dose 30 MG; Start 12/04/16 at 09:00 Eye Lubricant (Akwa Oint) 1 applic TID BOTH EYES Last administered on 12:04; Admin Dose 1 APPLIC; Start 12/04/16 at 09:00 Bisacodyl (Dulcolax Supp) 10 mg Q24H PRN [place] PRN; Start 12/03/16 at 22:00 Docusate Sodium (Colace) 200 mg QHS PO Last administered on 12/19/16 20:30; Admin Dose 200 MG; Start 12/04/16 at 21:00 Acetaminophen/ Hydrocodone Bitart ([place] (10/325)) 1 tab Q6H PRN PO PAIN; Start 12/03/16 at 22:00 Magnesium Hydroxide (Milk Of Mag) 30 ml Q24H PRN PO PRN; Start 12/03/16 at 22:00 Olanzapine (Zyprexa) 5 mg QHS PO Last administered on 12/19/16 20:30; Admin Dose 5 MG; Start 12/04/16 at 21:00 Potassium Chloride (Klor-Con 20) 20 meq DAILY PO Last administered on 08:30; Admin Dose 20 MEQ; Start 12/04/16 at 09:00 Sodium Biphosphate/ Sodium Phosphate (Fleet Enema Pediatric) 66.6 ml DAILY PRN [place] CONSTIPATION; Start 12/03/16 at 22:00 Latanoprost (Xalatan) 1 drop HS BOTH EYES Last administered on 12/19/16 20:30 ; Admin Dose 1 DROP; Start 12/03/16 at 23:00 Miscellaneous Information 1 ea NOTE XX Last administered on 12/15/16 18:02; Admin Dose 1 EA; Start 12/03/16 at 23:00 Glucose (Glutose) 15 gm Q15M PRN PO DECREASED GLUCOSE; Start 12/03/16 at 23:00 Glucose (Glutose) 22.5 gm Q15M PRN PO DECREASED GLUCOSE; Start 12/03/16 at 23:00 Dextrose (D50w Syringe) 25 ml Q15M PRN IV DECREASED GLUCOSE Last administered on 12/15/16 18:02; Admin Dose 25 ML; Start 12/03/16 at 23:00 Dextrose (D50w Syringe) 50 ml Q15M PRN IV DECREASED GLUCOSE Last administered on 12/14/16 17:32; Admin Dose 50 ML; Start 12/03/16 at 23:00 Glucagon (Glucagen) 1 mg Q15M PRN IM DECREASED GLUCOSE; Start 12/03/16 at 23:00 Glucose (Glutose) 15 gm Q15M PRN BUCCAL DECREASED GLUCOSE; Start 12/03/16 at 23: 00 Collagenase (Santyl) 1 applic DAILY TOP Last administered on 12/20/16 08:33; Admin Dose 1 APPLIC; Start 12/05/16 at 13:30 Collagenase (Santyl) 1 applic PRN PRN TOP .SOILING; Start 12/05/16 at 12:30 Diagnostic Test (Pha) (Accucheck) 1 ea 02 XX Last administered on 12/13/16 01: 34; Admin Dose 1 EA; Start 12/07/16 at 02:00 IV Flush (NS 10 ml) 10 ml PRN PRN IV IV PROTOCOL; Start 12/10/16 at 18:00 Insulin Glargine (Lantus) 15 unit DAILY SC Last administered on 12/20/16 08:33 ; Admin Dose 15 UNIT; Start 12/17/16 at 09:00 Pantoprazole (Protonix Tab) 40 mg DAILY@06 PO Last administered on 12/20/16 05 :27; Admin Dose 40 MG; Start 12/20/16 at 06:00 Gamal Coronel DO Dec 20, 2016 15:00
[2016-12-20 17:11] LABS: WHITE BLOOD COUNT 5.1 10^3/ul (4.8-10.8)
--- NOTE | 2016-12-20 17:55 | PN ---
Date/Time of Note Date/Time of Note DATE: 12/20/16 TIME: 17:53 Assessment/Plan VTE Prophylaxis VTE Prophylaxis Intervention: other Lines/Catheters IV C[facility]ter Type [facility]from [facility] PICC Line Urinary Cath still in place: Yes Assessment/Plan Assessment/Plan 1. Left basilar pneumonia. S/p treatment. 2. Sepsis secondary to pneumonia and urinary tract infection. Dr. Coffman is following patient in infectious disease consultation. 3. Escherichia coli extended-spectrum beta-lactamase urinary tract infection. 4. Diabetes mellitus type 2. Continue NovoLog per moderate algorithm sliding scale and Lantus. 5. History of schizophrenia and bipolar disorder. Continue patient on Zyprexa. 6. Bilateral lower extremity wound. Continue Santyl and local wound care. 7. Sinus tachycardia. Diastolic dysfunction with preserved ejection fraction per 2D echo. Dr Coronel is following from cardiology standpoint. 8. Anemia with recent drop in hemoglobin, status post blood transfusion. patients/p evaluation by Dr. Simpson in gastroenterology consultation, s/p endoscopy with notion of gastritis. Dr. Valdovinos is following in hematology oncology consultation. Continue Pepcid for peptic ulcer disease prophylaxis and Lovenox for deep venous thrombosis prophylaxis. Further recommendations based on clinical course. Plan of care discussed with Dr. Aly. Subjective 24 Hr Interval Summary Constitutional: improved Eyes: no complaints ENT: no complaints Respiratory: no complaints Cardiovascular: no complaints Gastrointestinal: no complaints Genitourinary: no complaints Musculoskeletal: no complaints Skin: no complaints Neurologic: no complaints Endocrine: no complaints Exam/Review of Systems Vital Signs Vitals Vital Signs Date Time Temp Pulse Resp B/P Pulse Ox O2 Delivery O2 Flow Rate FiO2 12/20/16 07:51 97.4 110 20 121/57 96 12/18/16 14:48 21 Intake and Output 12/19/16 12/19/16 12/20/16 15:00 23:00 07:00 Intake Total 1170 ml 400 ml Output Total 1050 ml 900 ml Balance 120 ml -500 ml Exam Constitutional: alert Psych: nl mood/affect Eyes: PERRL, nl sclera ENMT: nl external ears & nose Neck: non-tender Respiratory: clear to auscultation Cardiovascular: nl pulses Gastrointestinal: non-tender, soft Extremities: normal pulses Neurological: nl speech Skin: nl turgor Lymph: nontender Results Result Diagram: 12/20/16 0525 12/20/16 0525 Results 24 hrs Laboratory Tests Test 12/19/16 20:28 12/20/16 05:25 12/20/16 07:38 12/20/16 11:21 Bedside Glucose 122 254 H 206 Absolute Reticulocyte Count 0.122 H Alanine Aminotransferase (ALT/SGPT) 25 Albumin 3.1 L Alkaline Phosphatase 142 H Anion Gap 13 Aspartate Amino Transf (AST/SGOT) 34 Basophils # 0.0 Basophils % 0.7 Blood Morphology Comment Blood Urea Nitrogen 16 Calcium Level 9.1 Carbon Dioxide Level 32 H Chloride Level 95 L Creatinine 0.59 Direct Bilirubin 0.00 Eosinophils # 0.2 Eosinophils % 3.5 Ferritin 486.0 H Folate 4.3 Glucose Level 227 H Hematocrit 34.7 L Hemoglobin 11.8 L Indirect Bilirubin 0.3 Iron Level 52 Lactate Dehydrogenase 595 Lymphocytes # 3.1 H Lymphocytes % 60.9 H Mean Corpuscular Hemoglobin 33.1 H Mean Corpuscular Hemoglobin Concent 34.0 Mean Corpuscular Volume 97.4 Mean Platelet Volume 6.9 L Monocytes # 0.3 Monocytes % 6.6 Neutrophils # 1.4 L Neutrophils % 28.3 L Nucleated Red Blood Cells # 0.0 Nucleated Red Blood Cells % 0.0 Percent Iron Saturation 34 Percent Reticulocyte Count 3.4 H Platelet Count 348 Potassium Level 4.2 Red Blood Count 3.56 L Red Cell Distribution Width 16.8 H Sodium Level 136 Total Bilirubin 0.3 Total Iron Binding Capacity 154 L Total Protein 6.6 Vitamin B12 Level 836 White Blood Count 5.1 Medications Medications Current Medications Ondansetron HCl (Zofran Inj) 4 mg Q6H PRN IV NAUSEA AND/OR VOMITING; Start 12/03 at 22:00 Acetaminophen (Tylenol Liquid) 650 mg Q6H PRN PO PAIN LEVEL 1-3 OR FEVER; Start 12/03/16 at 22:00 Morphine Sulfate (morphine) 2 mg Q4H PRN IV PAIN LEVEL 7-10 Last administered on 12/17/16 13:30; Admin Dose 2 MG; Start 12/03/16 at 22:00 Enoxaparin Sodium (Lovenox) 30 mg DAILY SC Last administered on 12/20/16 08:33 ; Admin Dose 30 MG; Start 12/04/16 at 09:00 Eye Lubricant (Akwa Oint) 1 applic TID BOTH EYES Last administered on 12:04; Admin Dose 1 APPLIC; Start 12/04/16 at 09:00 Bisacodyl (Dulcolax Supp) 10 mg Q24H PRN [place] PRN; Start 12/03/16 at 22:00 Docusate Sodium (Colace) 200 mg QHS PO Last administered on 12/19/16 20:30; Admin Dose 200 MG; Start 12/04/16 at 21:00 Acetaminophen/ Hydrocodone Bitart ([place] (10/325)) 1 tab Q6H PRN PO PAIN; Start 12/03/16 at 22:00 Magnesium Hydroxide (Milk Of Mag) 30 ml Q24H PRN PO PRN; Start 12/03/16 at 22:00 Olanzapine (Zyprexa) 5 mg QHS PO Last administered on 12/19/16 20:30; Admin Dose 5 MG; Start 12/04/16 at 21:00 Potassium Chloride (Klor-Con 20) 20 meq DAILY PO Last administered on 08:30; Admin Dose 20 MEQ; Start 12/04/16 at 09:00 Sodium Biphosphate/ Sodium Phosphate (Fleet Enema Pediatric) 66.6 ml DAILY PRN [place] CONSTIPATION; Start 12/03/16 at 22:00 Latanoprost (Xalatan) 1 drop HS BOTH EYES Last administered on 12/19/16 20:30 ; Admin Dose 1 DROP; Start 12/03/16 at 23:00 Miscellaneous Information 1 ea NOTE XX Last administered on 12/15/16 18:02; Admin Dose 1 EA; Start 12/03/16 at 23:00 Glucose (Glutose) 15 gm Q15M PRN PO DECREASED GLUCOSE; Start 12/03/16 at 23:00 Glucose (Glutose) 22.5 gm Q15M PRN PO DECREASED GLUCOSE; Start 12/03/16 at 23:00 Dextrose (D50w Syringe) 25 ml Q15M PRN IV DECREASED GLUCOSE Last administered on 12/15/16 18:02; Admin Dose 25 ML; Start 12/03/16 at 23:00 Dextrose (D50w Syringe) 50 ml Q15M PRN IV DECREASED GLUCOSE Last administered on 12/14/16 17:32; Admin Dose 50 ML; Start 12/03/16 at 23:00 Glucagon (Glucagen) 1 mg Q15M PRN IM DECREASED GLUCOSE; Start 12/03/16 at 23:00 Glucose (Glutose) 15 gm Q15M PRN BUCCAL DECREASED GLUCOSE; Start 12/03/16 at 23: 00 Collagenase (Santyl) 1 applic DAILY TOP Last administered on 12/20/16 08:33; Admin Dose 1 APPLIC; Start 12/05/16 at 13:30 Collagenase (Santyl) 1 applic PRN PRN TOP .SOILING; Start 12/05/16 at 12:30 Diagnostic Test (Pha) (Accucheck) 1 ea 02 XX Last administered on 12/13/16 01: 34; Admin Dose 1 EA; Start 12/07/16 at 02:00 IV Flush (NS 10 ml) 10 ml PRN PRN IV IV PROTOCOL; Start 12/10/16 at 18:00 Insulin Glargine (Lantus) 15 unit DAILY SC Last administered on 12/20/16 08:33 ; Admin Dose 15 UNIT; Start 12/17/16 at 09:00 Pantoprazole (Protonix Tab) 40 mg DAILY@06 PO Last administered on 12/20/16 05 :27; Admin Dose 40 MG; Start 12/20/16 at 06:00 Furosemide (Lasix) 20 mg DAILY PO ; Start 12/21/16 at 09:00 MICHAEL COLINDRES Dec 20, 2016 17:55
[2016-12-20 20:17] VITALS: BP 111/53; RESP 16
[2016-12-20] MEDS: DOCUSATE SODIUM 100 MG CAP PO SCH (20:19)
[2016-12-20] MEDS: OLANZAPINE 5 MG TAB PO SCH (20:19)
[2016-12-20 21:00] VITALS: PULSE 88
[2016-12-20] MEDS: LATANOPROST 0.005% 2.5 ML OPH BOTH EYES SCH (21:14)
[2016-12-21] MEDS: ACCUCHECK XX SCH (02:00)
[2016-12-21 05:07] LABS: BASOPHILS % 0.9 % (0.0-2.0); EOSINOPHILS # 0.2 10^3/ul (0.0-0.5); EOSINOPHILS % 4.5 % (0.0-7.0); HEMATOCRIT 35.1 % (37.0-47.0); HEMOGLOBIN 11.6 g/dl (12.0-16.0); LYMPHOCYTES # 3.4 10^3/ul (0.8-2.9); LYMPHOCYTES % 62.5 % (15.0-51.0); MEAN CORPUSCULAR HEMOGLOBIN 32.9 pg (29.0-33.0); MEAN CORPUSCULAR VOLUME 99.7 fl (82.0-101.0); MEAN PLATELET VOLUME 7.1 fl (7.4-10.4); MONOCYTE # 0.3 10^3/ul (0.3-0.9); NEUTROPHIL # 1.4 10^3/ul (1.6-7.5); NEUTROPHILS % 26.1 % (39.0-77.0); PLATELET COUNT 325 10^3/UL (140-440); RED BLOOD COUNT 3.53 10^6/ul (4.20-5.40); RED CELL DISTRIBUTION WIDTH 16.6 % (11.5-14.5); UNCORRECTED WBC 5.4 10^3/ul (4.8-10.8); WHITE BLOOD COUNT 5.4 10^3/ul (4.8-10.8)
[2016-12-21 05:08] LABS: POTASSIUM 4.7 mmol/L (3.5-5.1)
[2016-12-21 05:12] LABS: CALCIUM 9.4 mg/dl (8.4-10.2); CREATININE 0.64 mg/dl (0.44-1.00)
[2016-12-21] MEDS: PANTOPRAZOLE (EC) 40 MG TAB PO SCH (05:16)
[2016-12-21 05:31] LABS: CONDITION 1; LH ANALYZER COMMENTS 1
[2016-12-21 07:43] VITALS: BP 103/51; RESP 18
[2016-12-21 07:54] VITALS: BP_SYST 100; BP_SYST 103; BP_DIAS 51; BP_DIAS 52; RESP 18
[2016-12-21] MEDS: OCULAR LUBRICANT 3.5 GM OPH OINT BOTH EYES SCH ×2 (08:54→12:05)
[2016-12-21] MEDS: ENOXAPARIN 30 MG/0.3 ML SYG SC SCH (08:55)
[2016-12-21] MEDS: INSULIN GLARGINE [LANtus] 3 ML PEN SC SCH (08:56)
[2016-12-21] MEDS: INSULIN ASPART [NOVOLOG] 3 ML PEN SC SCH ×6 (08:58→17:41)
[2016-12-21] MEDS: POTASSIUM CHLORIDE (SR) 20 MEQ TAB PO SCH (08:59)
[2016-12-21] MEDS ORDERED: FUROSEMIDE 20 MG TAB PO SCH (09:00)
[2016-12-21] MEDS: COLLAGENASE 30 GM TUBE TOP SCH (09:02)
[2016-12-21 11:18] LABS: HOMOCYSTEINE - CARDIOVASCULAR 17.5 umol/L (<10.4)
--- NOTE | 2016-12-21 11:51 | CONS ---
Date/Time of Note Date/Time of Note DATE: 12/21/16 TIME: 11:50 Assessment/Plan Assessment/Plan Additional Assessment/Plan Severe sepsis Likely PNA and UTI Preserved ejection fraction Psychiatric disorder -Edema continues to improve, continue maintenance Lasix as blood pressure renal function permits. DC planning Consultation Date/Type/Reason Admit Date/Time Dec 03, 2016 at 22:01 Type of Consultation: cv 24 HR Interval Summary Free Text/Dictation Patient denies shortness of breath, chest pain or palpitations Exam/Review of Systems Vital Signs Vitals Vital Signs Date Time Temp Pulse Resp B/P Pulse Ox O2 Delivery O2 Flow Rate FiO2 12/21/16 07:54 98.4 70 18 103/51 96 12/18/16 14:48 21 Intake and Output 12/20/16 12/20/16 12/21/16 15:00 23:00 07:00 Intake Total 840 ml 560 ml Output Total 550 ml 700 ml Balance 290 ml -140 ml Exam Following commands, eating breakfast, no apparent distress Constitutional: alert Head: normocephalic Neck: supple Respiratory: other (course breath sounds bilaterally, no wheezing) Cardiovascular: other (S1 and S2 heard), regular rate and rhythm Gastrointestinal: bowel sounds, non-tender, soft Extremities: edema (trace) Results Result Diagram: 12/21/16 0430 12/21/16 0430 Results 24 hrs Laboratory Tests Test 12/20/16 17:46 12/20/16 20:17 12/21/16 04:30 12/21/16 07:59 Bedside Glucose 95 165 280 H Anion Gap 12 Basophils # 0.0 Basophils % 0.9 Blood Morphology Comment Blood Urea Nitrogen 22 H Calcium Level 9.4 Carbon Dioxide Level 33 H Chloride Level 99 Creatinine 0.64 Eosinophils # 0.2 Eosinophils % 4.5 Glucose Level 219 Hematocrit 35.1 L Hemoglobin 11.6 L Lymphocytes # 3.4 H Lymphocytes % 62.5 H Mean Corpuscular Hemoglobin 32.9 Mean Corpuscular Hemoglobin Concent 33.0 Mean Corpuscular Volume 99.7 Mean Platelet Volume 7.1 L Monocytes # 0.3 Monocytes % 6.0 Neutrophils # 1.4 L Neutrophils % 26.1 L Nucleated Red Blood Cells # 0.0 Nucleated Red Blood Cells % 0.0 Platelet Count 325 Potassium Level 4.7 Red Blood Count 3.53 L Red Cell Distribution Width 16.6 H Sodium Level 139 White Blood Count 5.4 Test 12/21/16 11:28 Bedside Glucose 299 H Medications Medications Current Medications Ondansetron HCl (Zofran Inj) 4 mg Q6H PRN IV NAUSEA AND/OR VOMITING; Start 12/03 at 22:00 Acetaminophen (Tylenol Liquid) 650 mg Q6H PRN PO PAIN LEVEL 1-3 OR FEVER; Start 12/03/16 at 22:00 Morphine Sulfate (morphine) 2 mg Q4H PRN IV PAIN LEVEL 7-10 Last administered on 12/17/16 13:30; Admin Dose 2 MG; Start 12/03/16 at 22:00 Enoxaparin Sodium (Lovenox) 30 mg DAILY SC Last administered on 12/21/16 08:55 ; Admin Dose 30 MG; Start 12/04/16 at 09:00 Eye Lubricant (Akwa Oint) 1 applic TID BOTH EYES Last administered on 08:54; Admin Dose 1 APPLIC; Start 12/04/16 at 09:00 Bisacodyl (Dulcolax Supp) 10 mg Q24H PRN [place] PRN; Start 12/03/16 at 22:00 Docusate Sodium (Colace) 200 mg QHS PO Last administered on 12/20/16 20:19; Admin Dose 200 MG; Start 12/04/16 at 21:00 Acetaminophen/ Hydrocodone Bitart ([place] (10/325)) 1 tab Q6H PRN PO PAIN; Start 12/03/16 at 22:00 Magnesium Hydroxide (Milk Of Mag) 30 ml Q24H PRN PO PRN; Start 12/03/16 at 22:00 Olanzapine (Zyprexa) 5 mg QHS PO Last administered on 12/20/16 20:19; Admin Dose 5 MG; Start 12/04/16 at 21:00 Potassium Chloride (Klor-Con 20) 20 meq DAILY PO Last administered on 08:59; Admin Dose 20 MEQ; Start 12/04/16 at 09:00 Sodium Biphosphate/ Sodium Phosphate (Fleet Enema Pediatric) 66.6 ml DAILY PRN [place] CONSTIPATION; Start 12/03/16 at 22:00 Latanoprost (Xalatan) 1 drop HS BOTH EYES Last administered on 12/20/16 21:14 ; Admin Dose 1 DROP; Start 12/03/16 at 23:00 Miscellaneous Information 1 ea NOTE XX Last administered on 12/15/16 18:02; Admin Dose 1 EA; Start 12/03/16 at 23:00 Glucose (Glutose) 15 gm Q15M PRN PO DECREASED GLUCOSE; Start 12/03/16 at 23:00 Glucose (Glutose) 22.5 gm Q15M PRN PO DECREASED GLUCOSE; Start 12/03/16 at 23:00 Dextrose (D50w Syringe) 25 ml Q15M PRN IV DECREASED GLUCOSE Last administered on 12/15/16 18:02; Admin Dose 25 ML; Start 12/03/16 at 23:00 Dextrose (D50w Syringe) 50 ml Q15M PRN IV DECREASED GLUCOSE Last administered on 12/14/16 17:32; Admin Dose 50 ML; Start 12/03/16 at 23:00 Glucagon (Glucagen) 1 mg Q15M PRN IM DECREASED GLUCOSE; Start 12/03/16 at 23:00 Glucose (Glutose) 15 gm Q15M PRN BUCCAL DECREASED GLUCOSE; Start 12/03/16 at 23: 00 Collagenase (Santyl) 1 applic DAILY TOP Last administered on 12/21/16 09:02; Admin Dose 1 APPLIC; Start 12/05/16 at 13:30 Collagenase (Santyl) 1 applic PRN PRN TOP .SOILING; Start 12/05/16 at 12:30 Diagnostic Test (Pha) (Accucheck) 1 ea 02 XX Last administered on 12/13/16 01: 34; Admin Dose 1 EA; Start 12/07/16 at 02:00 IV Flush (NS 10 ml) 10 ml PRN PRN IV IV PROTOCOL; Start 12/10/16 at 18:00 Insulin Glargine (Lantus) 15 unit DAILY SC Last administered on 12/21/16 08:56 ; Admin Dose 15 UNIT; Start 12/17/16 at 09:00 Pantoprazole (Protonix Tab) 40 mg DAILY@06 PO Last administered on 12/21/16 05 :16; Admin Dose 40 MG; Start 12/20/16 at 06:00 Furosemide (Lasix) 20 mg DAILY PO ; Start 12/21/16 at 09:00 Gamal Coronel DO Dec 21, 2016 11:51
--- NOTE | 2016-12-21 12:02 | CONS ---
Date/Time of Note Date/Time of Note DATE: 12/21/16 TIME: 12:01 Assessment/Plan Assessment/Plan Chief Complaint/Hosp Course The patient is a 56 year old woman admitted with left basilar pneumonia and E. coli extended spectrum beta-lactamase UTI, for which we were consulted for anemia. The patient was evaluated by GI and underwent EGD on 12/13/16 that demonstrated diffuse moderate degree of gastritis in the stomach, without ulcer , neoplasm. Colonoscopy demonstrated minimal to moderate degree of hemorhoids. The patient's Hgb was 7.8 on 12/17, s/p 2 units pRBCs, 10.7 yesterday and now stable at 11 - Repeat iron panel suggestive of anemia of chronic disease. Vitamin B12 and folate WNL. RBC folate, homocysteine and methylmalonic acid pending. LDH normal, haptoglobin pending, retic count inappropriately low for anemia. - Peripheral smear shows no blasts, no atypia or dysplasia per path Will continue to follow Problems: Consultation Date/Type/Reason Admit Date/Time Dec 03, 2016 at 22:01 Initial Consult Date 12/19/16 Type of Consultation: Hematology/Oncology 24 HR Interval Summary Free Text/Dictation Doing well, no complaints, no overnight events. Exam/Review of Systems Vital Signs Vitals Vital Signs Date Time Temp Pulse Resp B/P Pulse Ox O2 Delivery O2 Flow Rate FiO2 12/21/16 07:54 98.4 70 18 103/51 96 12/18/16 14:48 21 Intake and Output 12/20/16 12/20/16 12/21/16 15:00 23:00 07:00 Intake Total 840 ml 560 ml Output Total 550 ml 700 ml Balance 290 ml -140 ml Exam Constitutional: alert, oriented Psych: no complaints Head: normocephalic Eyes: nl conjunctiva Neck: non-tender, supple Respiratory: clear to auscultation Cardiovascular: regular rate and rhythm Gastrointestinal: non-tender, soft Musculoskeletal: nl extremities to inspection Results Result Diagram: 12/21/16 0430 12/21/16 0430 Results 24 hrs Laboratory Tests Test 12/20/16 17:46 12/20/16 20:17 12/21/16 04:30 12/21/16 07:59 Bedside Glucose 95 165 280 H Anion Gap 12 Basophils # 0.0 Basophils % 0.9 Blood Morphology Comment Blood Urea Nitrogen 22 H Calcium Level 9.4 Carbon Dioxide Level 33 H Chloride Level 99 Creatinine 0.64 Eosinophils # 0.2 Eosinophils % 4.5 Glucose Level 219 Hematocrit 35.1 L Hemoglobin 11.6 L Lymphocytes # 3.4 H Lymphocytes % 62.5 H Mean Corpuscular Hemoglobin 32.9 Mean Corpuscular Hemoglobin Concent 33.0 Mean Corpuscular Volume 99.7 Mean Platelet Volume 7.1 L Monocytes # 0.3 Monocytes % 6.0 Neutrophils # 1.4 L Neutrophils % 26.1 L Nucleated Red Blood Cells # 0.0 Nucleated Red Blood Cells % 0.0 Platelet Count 325 Potassium Level 4.7 Red Blood Count 3.53 L Red Cell Distribution Width 16.6 H Sodium Level 139 White Blood Count 5.4 Test 12/21/16 11:28 Bedside Glucose 299 H Medications Medications Current Medications Ondansetron HCl (Zofran Inj) 4 mg Q6H PRN IV NAUSEA AND/OR VOMITING; Start 12/03 at 22:00 Acetaminophen (Tylenol Liquid) 650 mg Q6H PRN PO PAIN LEVEL 1-3 OR FEVER; Start 12/03/16 at 22:00 Morphine Sulfate (morphine) 2 mg Q4H PRN IV PAIN LEVEL 7-10 Last administered on 12/17/16 13:30; Admin Dose 2 MG; Start 12/03/16 at 22:00 Enoxaparin Sodium (Lovenox) 30 mg DAILY SC Last administered on 12/21/16 08:55 ; Admin Dose 30 MG; Start 12/04/16 at 09:00 Eye Lubricant (Akwa Oint) 1 applic TID BOTH EYES Last administered on 08:54; Admin Dose 1 APPLIC; Start 12/04/16 at 09:00 Bisacodyl (Dulcolax Supp) 10 mg Q24H PRN MA PRN; Start 12/03/16 at 22:00 Docusate Sodium (Colace) 200 mg QHS PO Last administered on 12/20/16 20:19; Admin Dose 200 MG; Start 12/04/16 at 21:00 Acetaminophen/ Hydrocodone Bitart ([place] (10/325)) 1 tab Q6H PRN PO PAIN; Start 12/03/16 at 22:00 Magnesium Hydroxide (Milk Of Mag) 30 ml Q24H PRN PO PRN; Start 12/03/16 at 22:00 Olanzapine (Zyprexa) 5 mg QHS PO Last administered on 12/20/16 20:19; Admin Dose 5 MG; Start 12/04/16 at 21:00 Potassium Chloride (Klor-Con 20) 20 meq DAILY PO Last administered on 08:59; Admin Dose 20 MEQ; Start 12/04/16 at 09:00 Sodium Biphosphate/ Sodium Phosphate (Fleet Enema Pediatric) 66.6 ml DAILY PRN MA CONSTIPATION; Start 12/03/16 at 22:00 Latanoprost (Xalatan) 1 drop HS BOTH EYES Last administered on 12/20/16 21:14 ; Admin Dose 1 DROP; Start 12/03/16 at 23:00 Miscellaneous Information 1 ea NOTE XX Last administered on 12/15/16 18:02; Admin Dose 1 EA; Start 12/03/16 at 23:00 Glucose (Glutose) 15 gm Q15M PRN PO DECREASED GLUCOSE; Start 12/03/16 at 23:00 Glucose (Glutose) 22.5 gm Q15M PRN PO DECREASED GLUCOSE; Start 12/03/16 at 23:00 Dextrose (D50w Syringe) 25 ml Q15M PRN IV DECREASED GLUCOSE Last administered on 12/15/16 18:02; Admin Dose 25 ML; Start 12/03/16 at 23:00 Dextrose (D50w Syringe) 50 ml Q15M PRN IV DECREASED GLUCOSE Last administered on 12/14/16 17:32; Admin Dose 50 ML; Start 12/03/16 at 23:00 Glucagon (Glucagen) 1 mg Q15M PRN IM DECREASED GLUCOSE; Start 12/03/16 at 23:00 Glucose (Glutose) 15 gm Q15M PRN BUCCAL DECREASED GLUCOSE; Start 12/03/16 at 23: 00 Collagenase (Santyl) 1 applic DAILY TOP Last administered on 12/21/16 09:02; Admin Dose 1 APPLIC; Start 12/05/16 at 13:30 Collagenase (Santyl) 1 applic PRN PRN TOP .SOILING; Start 12/05/16 at 12:30 Diagnostic Test (Pha) (Accucheck) 1 ea 02 XX Last administered on 12/13/16 01: 34; Admin Dose 1 EA; Start 12/07/16 at 02:00 IV Flush (NS 10 ml) 10 ml PRN PRN IV IV PROTOCOL; Start 12/10/16 at 18:00 Insulin Glargine (Lantus) 15 unit DAILY SC Last administered on 12/21/16 08:56 ; Admin Dose 15 UNIT; Start 12/17/16 at 09:00 Pantoprazole (Protonix Tab) 40 mg DAILY@06 PO Last administered on 12/21/16 05 :16; Admin Dose 40 MG; Start 12/20/16 at 06:00 Furosemide (Lasix) 20 mg DAILY PO ; Start 12/21/16 at 09:00 TOMOHINI MD Dec 21, 2016 12:02
--- NOTE | 2016-12-21 16:06 | PN ---
Date/Time of Note Date/Time of Note DATE: 12/21/16 TIME: 16:05 Assessment/Plan VTE Prophylaxis VTE Prophylaxis Intervention: other Lines/Catheters IV Catheter Type (from Nrs): PICC Line Central line still needed: Yes Urinary Cath still in place: Yes Reason Cath still needed: skin wounds contaminated by urine Assessment/Plan Chief Complaint/Hosp Course 1) pneumonia, sepsis - IV antibiotics 2) diabetes mellitus - monitor blood sugar 3) hypercholesterolemia - continue medications Problems: Subjective 24 Hr Interval Summary Free Text/Dictation Patient has no complaints Exam/Review of Systems Vital Signs Vitals Vital Signs Date Time Temp Pulse Resp B/P Pulse Ox O2 Delivery O2 Flow Rate FiO2 12/21/16 07:54 98.4 70 18 103/51 96 12/18/16 14:48 21 Intake and Output 12/20/16 12/20/16 12/21/16 15:00 23:00 07:00 Intake Total 840 ml 560 ml Output Total 550 ml 700 ml Balance 290 ml -140 ml Exam Head: atraumatic, normocephalic Neck: supple Respiratory: clear to auscultation Cardiovascular: regular rate and rhythm Gastrointestinal: non-tender, soft Results Result Diagram: 12/21/16 0430 12/21/16 0430 Results 24 hrs Laboratory Tests Test 12/20/16 17:46 12/20/16 20:17 12/21/16 04:30 12/21/16 07:59 Bedside Glucose 95 165 280 H Anion Gap 12 Basophils # 0.0 Basophils % 0.9 Blood Morphology Comment Blood Urea Nitrogen 22 H Calcium Level 9.4 Carbon Dioxide Level 33 H Chloride Level 99 Creatinine 0.64 Eosinophils # 0.2 Eosinophils % 4.5 Glucose Level 219 Hematocrit 35.1 L Hemoglobin 11.6 L Lymphocytes # 3.4 H Lymphocytes % 62.5 H Mean Corpuscular Hemoglobin 32.9 Mean Corpuscular Hemoglobin Concent 33.0 Mean Corpuscular Volume 99.7 Mean Platelet Volume 7.1 L Monocytes # 0.3 Monocytes % 6.0 Neutrophils # 1.4 L Neutrophils % 26.1 L Nucleated Red Blood Cells # 0.0 Nucleated Red Blood Cells % 0.0 Platelet Count 325 Potassium Level 4.7 Red Blood Count 3.53 L Red Cell Distribution Width 16.6 H Sodium Level 139 White Blood Count 5.4 Test 12/21/16 11:28 Bedside Glucose 299 H Medications Medications Current Medications Ondansetron HCl (Zofran Inj) 4 mg Q6H PRN IV NAUSEA AND/OR VOMITING; Start 12/03 at 22:00 Acetaminophen (Tylenol Liquid) 650 mg Q6H PRN PO PAIN LEVEL 1-3 OR FEVER; Start 12/03/16 at 22:00 Morphine Sulfate (morphine) 2 mg Q4H PRN IV PAIN LEVEL 7-10 Last administered on 12/17/16 13:30; Admin Dose 2 MG; Start 12/03/16 at 22:00 Enoxaparin Sodium (Lovenox) 30 mg DAILY SC Last administered on 12/21/16 08:55 ; Admin Dose 30 MG; Start 12/04/16 at 09:00 Eye Lubricant (Akwa Oint) 1 applic TID BOTH EYES Last administered on 12:05; Admin Dose 1 APPLIC; Start 12/04/16 at 09:00 Bisacodyl (Dulcolax Supp) 10 mg Q24H PRN OR PRN; Start 12/03/16 at 22:00 Docusate Sodium (Colace) 200 mg QHS PO Last administered on 12/20/16 20:19; Admin Dose 200 MG; Start 12/04/16 at 21:00 Acetaminophen/ Hydrocodone Bitart ([place] (10/325)) 1 tab Q6H PRN PO PAIN; Start 12/03/16 at 22:00 Magnesium Hydroxide (Milk Of Mag) 30 ml Q24H PRN PO PRN; Start 12/03/16 at 22:00 Olanzapine (Zyprexa) 5 mg QHS PO Last administered on 12/20/16 20:19; Admin Dose 5 MG; Start 12/04/16 at 21:00 Potassium Chloride (Klor-Con 20) 20 meq DAILY PO Last administered on 08:59; Admin Dose 20 MEQ; Start 12/04/16 at 09:00 Sodium Biphosphate/ Sodium Phosphate (Fleet Enema Pediatric) 66.6 ml DAILY PRN OR CONSTIPATION; Start 12/03/16 at 22:00 Latanoprost (Xalatan) 1 drop HS BOTH EYES Last administered on 12/20/16 21:14 ; Admin Dose 1 DROP; Start 12/03/16 at 23:00 Miscellaneous Information 1 ea NOTE XX Last administered on 12/15/16 18:02; Admin Dose 1 EA; Start 12/03/16 at 23:00 Glucose (Glutose) 15 gm Q15M PRN PO DECREASED GLUCOSE; Start 12/03/16 at 23:00 Glucose (Glutose) 22.5 gm Q15M PRN PO DECREASED GLUCOSE; Start 12/03/16 at 23:00 Dextrose (D50w Syringe) 25 ml Q15M PRN IV DECREASED GLUCOSE Last administered on 12/15/16 18:02; Admin Dose 25 ML; Start 12/03/16 at 23:00 Dextrose (D50w Syringe) 50 ml Q15M PRN IV DECREASED GLUCOSE Last administered on 12/14/16 17:32; Admin Dose 50 ML; Start 12/03/16 at 23:00 Glucagon (Glucagen) 1 mg Q15M PRN IM DECREASED GLUCOSE; Start 12/03/16 at 23:00 Glucose (Glutose) 15 gm Q15M PRN BUCCAL DECREASED GLUCOSE; Start 12/03/16 at 23: 00 Collagenase (Santyl) 1 applic DAILY TOP Last administered on 12/21/16 09:02; Admin Dose 1 APPLIC; Start 12/05/16 at 13:30 Collagenase (Santyl) 1 applic PRN PRN TOP .SOILING; Start 12/05/16 at 12:30 Diagnostic Test (Pha) (Accucheck) 1 ea 02 XX Last administered on 12/13/16 01: 34; Admin Dose 1 EA; Start 12/07/16 at 02:00 IV Flush (NS 10 ml) 10 ml PRN PRN IV IV PROTOCOL; Start 12/10/16 at 18:00 Insulin Glargine (Lantus) 15 unit DAILY SC Last administered on 12/21/16 08:56 ; Admin Dose 15 UNIT; Start 12/17/16 at 09:00 Pantoprazole (Protonix Tab) 40 mg DAILY@06 PO Last administered on 12/21/16 05 :16; Admin Dose 40 MG; Start 12/20/16 at 06:00 Furosemide (Lasix) 20 mg DAILY PO ; Start 12/21/16 at 09:00 VIVIENNE MONTILLA Dec 21, 2016 16:06
== END 2016-12-21 22:56 | DRG 871 ==
LOC: E/R 19:11 → ICU 22:01 → TEL 12-13 22:10 → PP2 12-18 16:40
PROVIDERS: ADMIT Internal Medicine; ATTEND Internal Medicine
PROC: 06HN33Z Insertion of Infusion Device into Left Femoral Vein, Percutaneous Approach (ICD-10-PCS; principal; 2016-12-04)
PROC: 02HV33Z Insertion of Infusion Device into Superior Vena Cava, Percutaneous Approach (ICD-10-PCS; 2016-12-10)
PROC: 0DB68ZX Excision of Stomach, Via Natural or Artificial Opening Endoscopic, Diagnostic (ICD-10-PCS; 2016-12-13)
PROC: 0DJD8ZZ Inspection of Lower Intestinal Tract, Via Natural or Artificial Opening Endoscopic (ICD-10-PCS; 2016-12-13)
PROC: 30233N1 Transfusion of Nonautologous Red Blood Cells into Peripheral Vein, Percutaneous Approach (ICD-10-PCS; 2016-12-18)
DX: A41.9 Sepsis, unspecified organism (principal); J18.9 Pneumonia, unspecified organism; R65.21 Severe sepsis with septic shock; J69.0 Pneumonitis due to inhalation of food and vomit; L89.153 Pressure ulcer of sacral region, stage 3; F03.90 Unspecified dementia, unspecified severity, without behavioral disturbance, psychotic disturbance, mood disturbance, and anxiety; N39.0 Urinary tract infection, site not specified; L89.513 Pressure ulcer of right ankle, stage 3; E11.9 Type 2 diabetes mellitus without complications; B96.20 Unspecified Escherichia coli [E. coli] as the cause of diseases classified elsewhere; E78.00 Pure hypercholesterolemia, unspecified; R56.9 Unspecified convulsions; Z16.12 Extended spectrum beta lactamase (ESBL) resistance; F20.9 Schizophrenia, unspecified; L89.322 Pressure ulcer of left buttock, stage 2; D64.9 Anemia, unspecified; K29.70 Gastritis, unspecified, without bleeding; K64.8 Other hemorrhoids; E83.42 Hypomagnesemia; R60.9 Edema, unspecified
CPT/HCPCS: 36415; 36430; 36569; 70450; 71010; 76937; 80048; 80053; 80076; 80202; 81001; 81003; 82040; 82607; 82728; 82746; 82947; 82962; 83010; 83036; 83090; 83540; 83605; 83615; 83735; 83921; 84100; 84134; 84436; 84439; 84443; 84484; 85025; 85045; 86850; 86900; 86901; 86920; 87040; 87081; 87086; 88305; 88312; 92526; 92610; 93005; 93306; 93965; 94640; 94664; 96374; 96375; 97110; 97163; 97530; J1940; C9113; J0692; J1450; J1650; J1815; J2185; J2270; J2370; J3370; J3475; J3480; J7030; J7040; J7042; J7050; P9016

== ENCOUNTER 2016-12-28 15:07 | Inpatient (IN) | payer MEDICARE, OTHER ==
[~2016-12-28] VITALS: Ht 167.6 cm; Wt 62.7 kg
[~2016-12-28 15:07] MED LIST changes: +ACET325T33 PO; +BIMA2.5D BOTH EYES; +CRAN450C PO; +CRES10 PO; +DOCU-144 PO; +DULR PR; +FLEETPED PR; +LANT3I SC; +MAGN400O4 PO; +MINE3.5O31 BOTH EYES; +MULT-105 PO; +NOVO3I SC; +OLAN5TAB5 PO; +POTA20TA96 PO; +TYL500 PO
[2016-12-28] MEDS ORDERED: LEVETIRACETAM IV 1,000 MG in SOD CHLORIDE 0.9% 100 ML IVPB STA (15:18)
[2016-12-28] MEDS ORDERED: SOD CHLORIDE 0.9% 1,000 ML IV STA (15:18)
[2016-12-28] MEDS ORDERED: SODIUM CHLORIDE 0.9% 1L BAG IV* STA (15:40)
[2016-12-28] MEDS ORDERED: PIPER-TAZO 3.375 GM IV (PMX) 100 ML IVPB STA (15:40)
[2016-12-28 15:44] LABS: ADD UMIC YES; URINE BILIRUBIN (Dip) 1+ (NEGATIVE); URINE BLOOD (Dip) 3+ (NEGATIVE); URINE GLUCOSE (Dip) NEGATIVE (NEGATIVE); URINE KETONES (Dip) NEGATIVE (NEGATIVE); URINE LEUKOCYTE ESTERASE (Dip) 3+ (NEGATIVE); URINE NITRITE (Dip) POSITIVE (NEGATIVE); URINE TOTAL PROTEIN (Dip) 4+ (NEGATIVE); URINE UROBILINOGEN (Dip) 1.0 E.U./dL (0.1-1.0)
[2016-12-28] MEDS ORDERED: CRAN425C PO (15:45)
[2016-12-28] MEDS ORDERED: AMIN30LI PO (15:47)
[2016-12-28] MEDS ORDERED: ASCO500C7 PO (15:47)
[2016-12-28] MEDS ORDERED: ZINC220T PO (15:48)
[2016-12-28] MEDS ORDERED: TRAM-40 PO (15:49)
[2016-12-28] MEDS ORDERED: NOVO3I SC (15:54)
[2016-12-28 15:55] LABS: URINE COLOR DARK YELLOW (YELLOW)
[2016-12-28 16:01] LABS: BACTERIA,URINE MANY; ICTOTEST NEGATIVE (NEGATIVE); URINE RBCS >200 /HPF (0)
[2016-12-28 16:07] LABS: CHLORIDE 99 mmol/L (97-110); POTASSIUM 4.1 mmol/L (3.5-5.1); SODIUM 141 mmol/L (135-144)
[2016-12-28 16:10] LABS: ANION GAP 14 (8-16); BLOOD UREA NITROGEN 24 mg/dl (7-20); CARBON DIOXIDE 32 mmol/L (21-31); CREATININE 0.65 mg/dl (0.44-1.00)
[2016-12-28 16:11] LABS: BASOPHILS % 0.3 % (0.0-2.0); CALCIUM 9.7 mg/dl (8.4-10.2); EOSINOPHILS # 0.1 10^3/ul (0.0-0.5); EOSINOPHILS % 1.5 % (0.0-7.0); GLUCOSE 103 mg/dl (70-220); HEMATOCRIT 36.1 % (37.0-47.0); HEMOGLOBIN 12.6 g/dl (12.0-16.0); LYMPHOCYTES # 1.9 10^3/ul (0.8-2.9); LYMPHOCYTES % 19.4 % (15.0-51.0); MEAN CORPUSCULAR HEMOGLOBIN 33.2 pg (29.0-33.0); MEAN CORPUSCULAR HGB CONC 34.9 g/dl (32.0-37.0); MEAN CORPUSCULAR VOLUME 95.3 fl (82.0-101.0); MEAN PLATELET VOLUME 7.6 fl (7.4-10.4); MONOCYTE # 0.6 10^3/ul (0.3-0.9); MONOCYTES % 6.2 % (0.0-11.0); NEUTROPHIL # 7.3 10^3/ul (1.6-7.5); NEUTROPHILS % 72.6 % (39.0-77.0); PLATELET COUNT 643 10^3/UL (140-440); RED BLOOD COUNT 3.79 10^6/ul (4.20-5.40); RED CELL DISTRIBUTION WIDTH 15.6 % (11.5-14.5)
[2016-12-28 16:12] LABS: CONDITION 1; LH ANALYZER COMMENTS 1
[2016-12-28 16:28] LABS: TROPONIN-I < 0.012 ng/ml (0.00-0.12)
--- NOTE | 2016-12-28 16:45 | RADRPT ---
PROCEDURE: CT brain without contrast CLINICAL INDICATION: Seizure, altered mental status, prolonged postictal TECHNIQUE: CT of the brain without contrast performed on a multidetector CT scanner, with multiplan ar reformats. One or more of the following dose reduction techniques were used: Automated exposure control, adjustment in mA and / or kV according to patient size, use of iterative reconstructive radha hnique. CTDIvol = 45 mGy; DLP = 720 mGy-cm. COMPARISON: 12/03/2016 FINDINGS: No acute intracranial hemorrhage is identified. No extra-axial fluid collection is seen. There is no mass effect. No midline shift is identified. Ventricles and sulci are moderately enlarged compatible with volume loss with central predominance. There are mild areas of hypodensity in the periventricular - deep white matter which are nonspecific but suggestive of chronic small vessel ischemic changes. Newell-white differentiation is preserved. Osseous structures are unremarkable. Mastoid air cells and imaged paranasal sinuses grossly clear. IMPRESSION: 1. No evidence of acute intracranial pathology. 2. Mild to moderate volume loss, with central predominance. 3. mild chronic small vessel ischemic changes. RPTAT: VV .Ramon Black MD, MD Date Time Electronically viewed and signed by .Ramon Black MD, MD on 12/28/2016 16:45 .O/
[2016-12-28] MEDS ORDERED: ACETAMINOPHEN 325 MG TAB PO PRN (17:00)
[2016-12-28] MEDS ORDERED: ONDANSETRON 4 MG INJ IV PRN (17:00)
--- NOTE | 2016-12-28 19:22 | ERA ---
ER Documentation Chief Complaint Date/Time DATE: 12/28/16 TIME: 18:52 Chief Complaint Seizure at [facility] post ictal HPI This 56-year-old female was sent for having a witnessed generalized tonic- clonic seizure at [facility]. This occurred approximately 30 minutes prior to arrival. The paramedics she is still post ictal and nonverbal although she does respond to touch and opens her eyes. Paramedics noted that she was tachycardic as well. No other information regarding acute presentation was sent with the patient and she is currently nonverbal per ROS Unobtainable Medications Home Meds Active Scripts Hydrocodone/Acetaminophen ([place] 10-325 Tablet) 1 Each Tablet, 1 TAB PO Q6H Y for PAIN, #5 TAB Prov:EB CHOW MD 11/28/16 Reported Medications Insulin Aspart* (Novolog Insulin Pen*) 100 Unit/Ml Soln, 0 SC .SLIDING SCALE AC , EA 0-150=0, 151-200=2UNITS, 201-250=4UNITS, 251-300=6UNITS, 301-350=8UNITS, 351-400=10UNITS, >400=12UNITS,ABOVE 400 OR BELOW 70 CALL MD. 12/28/16 Tramadol Hcl* (Ultram*) 50 Mg Tablet, 50 MG PO BID Y for PAIN, TAB 12/28/16 Zinc Sulfate* (Zinc Sulfate*) 220 Mg Tablet, 220 MG PO DAILY, TAB 12/28/16 Ascorbic Acid* (Vitamin C*) 500 Mg Capsule.sa, 500 MG PO DAILY, CAP 12/28/16 Amino Acids/Protein Hydrolys (PRO-STAT LIQUID) 30 Ml Liquid.pkt, 30 ML PO DAILY 12/28/16 Cranberry Extract (Cranberry) 425 Mg Capsule, 425 MG PO BID, CAP 12/28/16 Acetaminophen* (Tylenol*) 500 Mg Tab, 1000 MG PO Q4H Y for PAIN AND OR ELEVATED TEMP, TAB 12/03/16 Acetaminophen* (Tylenol*) 325 Mg Tablet, 650 MG PO Q4H Y for MILD PAIN LEVEL 1-3 , TAB FOR FEVER 100 AND ABOVE 12/03/16 Rosuvastatin Calcium* (Crestor*) 10 Mg Tablet, 10 MG PO QHS, #30 TAB 12/03/16 Potassium Chloride* (Potassium Chloride*) 20 Meq Tablet.er, 20 MEQ PO DAILY, TAB.SA 12/03/16 Insulin Aspart* (Novolog Insulin Pen*) 100 Unit/Ml Soln, 3 UNIT SC WITH BREAKFAST DINNE, EA HOLD INSULIN IF BS IS 80 OR LESS THAN 80 12/03/16 Multivitamin with Minerals (Multivitamins with Minerals) 1 Each Tablet, 1 EACH PO DAILY, TAB 12/03/16 Bimatoprost* (Lumigan*) 0.01%-2.5 Ml Opht Drops, 1 DROP BOTH EYES HS, EA 12/03/16 Insulin Glargine* (Lantus*) 100 Unit/Ml Soln, 25 UNIT SC QHS, #1 VIAL 12/03/16 Sod Phosphate/Sod Biphosphate* (Fleet* Enema Pediatric) 66.6 Ml Soln, 66.6 ML VA Q2DAYS Y for CONSTIPATION, ENEMA 12/03/16 Bisacodyl* (Bisacodyl*) 10 Mg Supp, 10 MG VA Q24H Y for PRN, SUPP 12/03/16 Docusate Sodium* (Colace*) 100 Mg Capsule, 200 MG PO QHS, #30 CAP 12/03/16 Artificial Tears* (Akwa Oint*) 3.5 Gm Oint, 1 APPLIC BOTH EYES TID, #1 TUB 12/03/16 Discontinued Reported Medications Olanzapine* (Zyprexa*) 5 Mg Tablet, 5 MG PO QHS, #30 TAB 12/03/16 Magnesium Hydroxide* (Milk Of Magnesia*) 400 Mg/5 Ml Oral.susp, 30 ML PO Q24H Y for PRN, ML 12/03/16 Cranberry Fruit Concentrate (CRANBERRY) 450 Mg Capsule, 450 MG PO DAILY, CAP 12/03/16 Allergies Allergies: Coded Allergies: No Known Allergy (Unverified , 12/28/16) PMhx/Soc History of Surgery: Yes (L hip) Hx Neurological Disorder: Yes (seizure, TIA) Hx Cardiac Disorders: Yes (anemia, HTN, ) Hx Psychiatric Problems: Yes (schizophrenia, bipolar) Hx Miscellaneous Medical Probl: Yes (DM, dementia, hypercholesterolemia) Hx Alcohol Use: No Hx Substance Use: No Hx Tobacco Use: No Smoking Status: Never smoker Physical Exam Vitals Vital Signs Date Time Temp Pulse Resp B/P Pulse Ox O2 Delivery O2 Flow Rate FiO2 12/28/16 17:00 133 18 127/57 98 Nasal Cannula 3.0 12/28/16 15:15 97.9 147 16 140/70 100 Physical Exam Const: [] No apparent distress Head: Atraumatic Eyes: Normal Conjunctiva, EOMI, PERRLA ENT: Normal External Ears, Nose and Mouth. Neck: Full range of motion..~ No meningismus. Resp: Clear to auscultation bilaterally, poor inspiration, no respiratory distress Cardio: Regular tachycardia, no murmurs Abd: Soft, no apparent tenderness , non distended. Normal bowel sounds Skin: No petechiae or rashes Back: No midline or flank tenderness Ext: No cyanosis, or edema Neur: Awake and alert, moving eyes, tracking with eyes, moves all 4 extremities, no further neurological testing possible Result Diagram: 12/28/16 1520 12/28/16 1520 Results 24 hrs Laboratory Tests Test 12/28/16 15:20 12/28/16 15:30 12/28/16 15:47 12/28/16 16:15 Anion Gap 14 Basophils # 0.010^3/ul Basophils % 0.3% Blood Morphology Comment Blood Urea Nitrogen 24mg/dl Calcium Level 9.7mg/dl Carbon Dioxide Level 32mmol/L Chloride Level 99mmol/L Creatinine 0.65mg/dl Eosinophils # 0.110^3/ul Eosinophils % 1.5% Glucose Level 103mg/dl Hematocrit 36.1% Hemoglobin 12.6g/dl Lymphocytes # 1.910^3/ul Lymphocytes % 19.4% Mean Corpuscular Hemoglobin 33.2pg Mean Corpuscular Hemoglobin Concent 34.9g/dl Mean Corpuscular Volume 95.3fl Mean Platelet Volume 7.6fl Monocytes # 0.610^3/ul Monocytes % 6.2% Neutrophils # 7.310^3/ul Neutrophils % 72.6% Nucleated Red Blood Cells # 0.010^3/ul Nucleated Red Blood Cells % 0.0/100WBC Platelet Count 73663^3/UL Potassium Level 4.1mmol/L Red Blood Count 3.7910^6/ul Red Cell Distribution Width 15.6% Sodium Level 141mmol/L Troponin I < 0.012ng/ml White Blood Count 10.010^3/ul Urine Bacteria MANY Urine Bilirubin 1+ Urine Clarity CLOUDY Urine Color DARK YELLOW Urine Glucose NEGATIVE% Urine Hemoglobin 3+ Urine Ictotest NEGATIVE Urine Ketones NEGATIVE Urine Leukocyte Esterase 3+ Urine Microscopic RBC >200/HPF Urine Microscopic WBC >50/HPF Urine Nitrite POSITIVE Urine Specific [place] 1.010 Urine Total Protein 4+ Urine Triple Phosphate Crystals MODERATE Urine Urobilinogen 1.0 E.U./dL Urine pH 8.5 Lactic Acid Level 1.3mmol/L Bedside Glucose 98mg/dL Current Medications Medications (Trade) Dose Ordered Sig/Luigi Route PRN Reason Start Time Stop Time Status Last Admin Dose Admin Sodium Chloride 1,000 ml @ 1,000 mls/hr Q1H STAT IV 12/28/16 15:18 12/28/16 16:17 DC 12/28/16 15:41 Levetiracetam/ Sodium Chloride (Keppra Iv/NS) 110 ml @ 400 mls/hr ONCE STAT IVPB 12/28/16 15:18 12/28/16 15:34 DC 12/28/16 15:51 Sodium Chloride 2330 ml 2,330 ml BOLUS OVER 2 HOURS STAT IV* 12/28/16 15:40 12/28/16 15:43 DC 12/28/16 16:03 Piperacillin Sod/ Tazobactam Sod (Zosyn 3.375gm/ 100 ml (Pmx)) 100 ml @ 200 mls/hr ONCE STAT IVPB 12/28/16 15:40 12/28/16 16:09 DC 12/28/16 16:03 Ondansetron HCl (Zofran Inj) 4 mg ER BRIDGE PRN IV NAUSEA AND/OR VOMITING 12/28/16 17:00 12/29/16 16:59 Acetaminophen (Tylenol Tab) 650 mg ER BRIDGE PRN PO MILD PAIN/FEVER 12/28/16 17:00 12/29/16 16:59 Procedures/MDM Seizure with prolonged postictal likely contributing factor being the urinary tract infection with sepsis. Persistent tachycardia in the emergency room reduced with IV fluid administration. Patient was treated with cefepime and IV fluid immediately. No significant lactic acidosis. CT obtained in no acute process intracerebrally. Showing signs of mental status improvement in the emergency room. Thrombocytosis is likely reactive. Patient does have an elevated BUN likely secondary to some dehydration after a seizure. Elevated CO2 likely secondary to contraction alkalosis as well. Spoke to Dr. Aly she will be admitting the patient to telemetry unit. EKG interpretation: Sinus tachycardia rate of 154, normal axis, no ST or T-wave changes concerning for acute ischemia, QT of [address] recording monitor interpretation: Persistent sinus tachycardia improved with fluids Chest x-ray interpretation: I see no acute process no widened mediastinum or pneumothorax no pulmonary edema, no fractures CT head interpretation: I see no acute process, no hemorrhage no mass no midline shift, large ventricles, no skull fracture Critical care time 44 minutes: This includes treatment of septic patient with altered mental status status post seizure, immediate antibiotic administration, careful fluid administration, multiple visits to the patient's bedside to reassess cardiodynamics and mental status, chart reviewed, discussion with admitting Dr. Miller Diagnosis: Primary Impression: Seizure Additional Impressions: Encephalopathy acute Sepsis secondary to UTI Dehydration Condition: Serious JAKE RDZ DO Dec 28, 2016 19:02
[2016-12-29] VITALS (13 sets, daily range): BP systolic 122–152; BP diastolic 60–71; PULSE 106–128; RESP 16–19; TEMP 99; Ht 167.6 cm; Wt 62.7 kg
[2016-12-29] MEDS ORDERED: ACETAMINOPHEN 650 MG SUPP PR PRN (02:30)
[2016-12-29] MEDS ORDERED: GLUCOSE GEL 15 GRAM TUBE BUCCAL PRN (03:00)
[2016-12-29] MEDS ORDERED: GLUCAGON 1 MG INJ IM PRN (03:00)
[2016-12-29] MEDS ORDERED: DEXTROSE 50% 50 ML SYRINGE IV PRN (03:00)
[2016-12-29] MEDS ORDERED: GLUCOSE GEL 15 GRAM TUBE PO PRN ×2 (03:00)
[2016-12-29] MEDS: D5W-0.45 NACL + KCL 20 MEQ 1,000 ML IV SCH ×2 (03:46→13:30)
[2016-12-29] MEDS: INSULIN ASPART [NOVOLOG] 3 ML PEN SC SCH ×3 (06:00→18:00)
--- NOTE | 2016-12-29 06:51 | HP ---
DATE OF ADMISSION: 12/28/2016 CHIEF COMPLAINT: Medical history has been obtained from medical records as well as discussion with Dr. Marquise Valderrama the ER physician. The patient could not provide any useful history due to postictal state. HISTORY OF PRESENT ILLNESS: The patient is a 56-year-old female with a history of hypertension, diabetes, dyslipidemia, schizophrenia, bipolar disorder, history of recent septic shock due to urinary tract infection. The patient recently had septic shock and was admitted in the ICU and required vasopressor treatment. The patient was transferred back to [facility] recently and was noted to have a breakthrough seizure today. The patient was immediately sent to [facility] ER where she was postictal and urine examination was suggestive of urinary tract infection. The patient was given IV Zosyn and IV Keppra in the ER. The patient's white count was 10,000. The patient did not have any left shift. BUN was 24, creatinine 0.6, glucose 103. CT of the head revealed no evidence of acute intracranial pathology. The patient is being admitted for further evaluation and management. The patient in the ER did not have any temperature spike. No reported vomiting, no reported diarrhea, no reported clinical seizures while in the ER. No reported acute skin rash. The patient does not have edema of the extremities. No acute skin rash. REVIEW OF SYSTEMS: As mentioned above was limited because of the patient being postictal. PAST MEDICAL HISTORY: As stated above. SOCIAL HISTORY: No smoking or alcohol abuse. The patient is lethargic and no useful communication is possible. FAMILY HISTORY: Could not be obtained. MEDICATIONS: 1. List revealed the patient to be on Crestor. 2. Tylenol. 3. [place]. 4. Ultram. 5. Potassium supplement. 6. Zinc. 7. Artificial Tears. 8. Lumigan. 9. Colace. 10. Premeal insulin and Lantus insulin. 11. Vitamin C. 12. Multivitamin. The patient is lethargic. Initial vital signs revealed temperature to be 97.9, pulse is 147, blood pressure 140/70, O2 saturation 100% on 3 liters nasal cannula, respirations 16. The patient has a history of sinus tachycardia even during recent admission and had a cardiology evaluation by Dr. Coronel. Echocardiogram on 12/11/2016 revealed EF of 70%. The patient is being admitted for further evaluation and management. PAST MEDICAL HISTORY: As mentioned above, the patient has a history of recent severe sepsis due to urinary tract infection. PHYSICAL EXAMINATION: GENERAL: The patient is lethargic. HEENT: Atraumatic, normocephalic. Conjunctivae and lids normal. Nose and ears normal. Extraocular movements could not be tested as the patient was lethargic. Oropharynx grossly negative. NECK: Supple. No masses or thyromegaly. CHEST: Fairly clear. No use of accessory muscles. CARDIOVASCULAR: Regular rate and rhythm. S1, S2 normal. No murmur, gallop, or rub. ABDOMEN: Soft, nondistended, nontender. Bowel sounds plus. EXTREMITIES: No leg edema. NEUROLOGIC: The patient is lethargic and no useful communication was possible. SKIN: Without acute rash. No clubbing or cyanosis. IMPRESSION: 1. Tonic-clonic seizure. 2. Urinary tract infection. 3. Schizophrenia and bipolar disorder. 4. Hypertension. 5. Diabetes mellitus. 6. Dyslipidemia. PLAN: The patient admitted on telemetry floor. She is currently post ictal. Patient received zosyn & IV Keppra in ER The patient will be kept npo until she is more awake & alert. Will hold off p.o. meds. Meanwhile MRI of the head will be requested. A neuro consult from Dr. Lee will be obtained. We will also obtain an EEG, urine culture and we will empirically continue with the iv cefepime. The patient will be given IV fluids and will be kept npo. Further recommendations will depend on the patient's hospital course and recommendations from neurologist. Dictated By: LUZMA WORTHINGTON/RUSTY Conf#: [id number] DID#: [id number]
[2016-12-29 06:55] LABS: BASOPHILS % 0.5 % (0.0-2.0); EOSINOPHILS # 0.2 10^3/ul (0.0-0.5); EOSINOPHILS % 2.6 % (0.0-7.0); HEMATOCRIT 31.4 % (37.0-47.0); HEMOGLOBIN 10.8 g/dl (12.0-16.0); LYMPHOCYTES # 2.2 10^3/ul (0.8-2.9); LYMPHOCYTES % 31.2 % (15.0-51.0); MEAN CORPUSCULAR HEMOGLOBIN 33.2 pg (29.0-33.0); MEAN CORPUSCULAR HGB CONC 34.5 g/dl (32.0-37.0); MEAN CORPUSCULAR VOLUME 96.3 fl (82.0-101.0); MEAN PLATELET VOLUME 7.5 fl (7.4-10.4); MONOCYTE # 0.5 10^3/ul (0.3-0.9); MONOCYTES % 6.8 % (0.0-11.0); NEUTROPHIL # 4.2 10^3/ul (1.6-7.5); NEUTROPHILS % 58.9 % (39.0-77.0); PLATELET COUNT 550 10^3/UL (140-440); RED BLOOD COUNT 3.26 10^6/ul (4.20-5.40); RED CELL DISTRIBUTION WIDTH 15.3 % (11.5-14.5); UNCORRECTED WBC 7.1 10^3/ul (4.8-10.8); WHITE BLOOD COUNT 7.1 10^3/ul (4.8-10.8)
[2016-12-29 07:01] LABS: POTASSIUM 3.5 mmol/L (3.5-5.1)
[2016-12-29 07:04] LABS: CREATININE 0.55 mg/dl (0.44-1.00)
[2016-12-29 07:05] LABS: CALCIUM 8.7 mg/dl (8.4-10.2)
[2016-12-29 07:09] LABS: CONDITION 1; LH ANALYZER COMMENTS 1
[2016-12-29] MEDS: CEFEPIME 1GM/50 ML (PMX) 50 ML IVPB SCH ×2 (09:30→21:40)
[2016-12-29] MEDS: LEVETIRACETAM IV 500 MG in DEXTROSE 5% 100 ML IVPB SCH ×2 (09:30→21:40)
[2016-12-29] MEDS: ENOXAPARIN 40 MG/0.4 ML SYG SC SCH (09:40)
--- NOTE | 2016-12-29 16:57 | RADRPT ---
PROCEDURE: MR Brain without contrast. CLINICAL INDICATION: Seizure TECHNIQUE: An MRI of the brain was performed on a 1.5 petra scanner utilizing the following sequen karine: Sagittal T1 weighted, axial T2 weighted, axial FLAIR, coronal GRE, and axial diffusion weighted with ADC mapping. COMPARISON: None FINDINGS: No evidence of restricted diffusion to suggest acute or early subacute ischemic infarction. There i s no evidence of intracranial hemorrhage, mass effect, or midline shift. No extra-axial fluid collec tions are seen. No hypointense signal abnormalities are seen on the GRE images to suggest the presence of blood degr adation products. [place] T2 signal hyperintensity in the periventricular white matter with scattered T2 signal hyp erintensity foci throughout the subcortical white matter likely representing sequelae of chronic [place] rovascular ischemic injury. Component of transfemoral migration CSF cannot be excluded. Marked han triculomegaly and sulcal prominence compatible with diffuse global atrophy. The posterior fossa contents, brainstem, seventh - eighth cranial nerve complexes, pituitary axis, o rbits, paranasal sinuses, and mastoid air cells are unremarkable. Normal flow voids are visible in the proximal intracranial arteries and dural sinuses, indicating pa tency. IMPRESSION: 1. No acute or early subacute ischemic infarction or acute intracranial abnormality. 2. Chronic microvascular ischemic changes in the deep white matter with marked ventriculomegaly and diffuse age-related atrophy. 3. No intracranial hemorrhage. RPTAT:AAJJ Physician Jovany Date Time Electronically viewed and signed by Physician Jovany on 12/29/2016 16:56 RANI/
--- NOTE | 2016-12-29 17:06 | PN ---
Date/Time of Note Date/Time of Note DATE: 12/29/16 TIME: 16:59 Assessment/Plan VTE Prophylaxis VTE Prophylaxis Intervention: SCD's Lines/Catheters IV Catheter Type (from Nrsg): PICC Line Central line still needed: Yes Urinary Cath still in place: Yes Reason Cath still needed: urinary retention Assessment/Plan Assessment/Plan 1. Tonic-clonic seizure. - neurology consult appreciated- Dr Lee notified -cont. on telemetry floor - seizure precautions - fu EEG - MRI Head done- FU 2. Urinary tract infection. - fu urine culture -empirically continue with the iv cefepime. 3. Schizophrenia and bipolar disorder- no acute issues 4. Hypertension- stable 4. Tachycardia- cont to monitor, cardiology consult when needed 5. Diabetes mellitus. - Glycemic control 6. Dyslipidemia. ]Further recommendations will depend on the patient's hospital course and recommendations from neurologist.Ricki Aly Subjective 24 Hr Interval Summary Eyes: no complaints ENT: no complaints Respiratory: no complaints Cardiovascular: no complaints Gastrointestinal: no complaints Genitourinary: no complaints Musculoskeletal: no complaints Skin: no complaints Neurologic: no complaints Endocrine: no complaints Lymphatic: no complaints Psychological: no complaints Immunologic: no complaints Exam/Review of Systems Vital Signs Vitals Vital Signs Date Time Temp Pulse Resp B/P Pulse Ox O2 Delivery O2 Flow Rate FiO2 12/29/16 16:28 97.9 121 18 122/66 96 12/29/16 08:49 Nasal Cannula 3.0 Intake and Output 12/28/16 12/28/16 12/29/16 15:00 23:00 07:00 Output Total 700 ml Balance -700 ml Exam Constitutional: alert, well developed Psych: nl mood/affect Head: atraumatic Eyes: PERRL, nl sclera ENMT: nl external ears & nose Neck: non-tender Respiratory: clear to auscultation Cardiovascular: nl pulses Gastrointestinal: non-tender, soft Musculoskeletal: nl extremities to inspection Extremities: normal pulses Neurological: other Skin: other Results Result Diagram: 12/29/16 0550 12/29/16 0550 Results 24 hrs Laboratory Tests Test 12/28/16 20:35 12/28/16 23:00 12/29/16 01:38 12/29/16 05:50 Lactic Acid Level 0.7 0.6 Bedside Glucose 49 *L Anion Gap 12 Basophils # 0.0 Basophils % 0.5 Blood Morphology Comment Blood Urea Nitrogen 13 # Calcium Level 8.7 Carbon Dioxide Level 27 Chloride Level 106 Creatinine 0.55 Eosinophils # 0.2 Eosinophils % 2.6 Glucose Level 85 Hematocrit 31.4 L Hemoglobin 10.8 L Lymphocytes # 2.2 Lymphocytes % 31.2 Mean Corpuscular Hemoglobin 33.2 H Mean Corpuscular Hemoglobin Concent 34.5 Mean Corpuscular Volume 96.3 Mean Platelet Volume 7.5 Monocytes # 0.5 Monocytes % 6.8 Neutrophils # 4.2 Neutrophils % 58.9 Nucleated Red Blood Cells # 0.0 Nucleated Red Blood Cells % 0.0 Platelet Count 550 H Potassium Level 3.5 Red Blood Count 3.26 L Red Cell Distribution Width 15.3 H Sodium Level 141 White Blood Count 7.1 # Test 12/29/16 06:25 12/29/16 13:25 Bedside Glucose 89 174 Medications Medications Current Medications Levetiracetam 500 mg/Dextrose 105 ml @ 420 mls/hr Q12 IVPB Last administered on 12/29/16 09:30; Admin Dose 420 MLS/HR; Start 12/29/16 at 09:00 Potassium Chloride/Dextrose/ Sod Cl 1,000 ml @ 100 mls/hr Q10H IV Last administered on 12/29/16 13:30; Admin Dose 100 MLS/HR; Start 12/29/16 at 02:30 Cefepime HCl (Maxipime 1gm/50 ml (Pmx)) 50 ml @ 100 mls/hr Q12 IVPB Last administered on 12/29/16 09:30; Admin Dose 100 MLS/HR; Start 12/29/16 at 09:00 Acetaminophen (Tylenol Supp) 650 mg Q6H PRN [place] ELEVATED TEMPERATURE; Start at 02:30 Insulin Aspart (Novolog Insulin Pen) NOVOLOG *MILD* ALGORI... Q6 SC Last administered on 12/29/16 14:18; Admin Dose 1 UNIT; Start 12/29/16 at 06:00 Enoxaparin Sodium (Lovenox) 40 mg DAILY SC Last administered on 12/29/16 09:40 ; Admin Dose 40 MG; Start 12/29/16 at 09:00 Miscellaneous Information 1 ea NOTE XX ; Start 12/29/16 at 03:00 Glucose (Glutose) 15 gm Q15M PRN PO DECREASED GLUCOSE; Start 12/29/16 at 03:00 Glucose (Glutose) 22.5 gm Q15M PRN PO DECREASED GLUCOSE; Start 12/29/16 at 03: 00 Dextrose (D50w Syringe) 25 ml Q15M PRN IV DECREASED GLUCOSE; Start 12/29/16 at 03:00 Dextrose (D50w Syringe) 50 ml Q15M PRN IV DECREASED GLUCOSE; Start 12/29/16 at 03:00 Glucagon (Glucagen) 1 mg Q15M PRN IM DECREASED GLUCOSE; Start 12/29/16 at 03:00 Glucose (Glutose) 15 gm Q15M PRN BUCCAL DECREASED GLUCOSE; Start 12/29/16 at 03 :00 MICHAEL COLINDRES Dec 29, 2016 17:06
[2016-12-30] VITALS (13 sets, daily range): BP systolic 107–146; BP diastolic 55–62; PULSE 98–124; RESP 17–20
[2016-12-30] MEDS: D5W-0.45 NACL + KCL 20 MEQ 1,000 ML IV SCH ×3 (00:32→17:31)
[2016-12-30] MEDS: INSULIN ASPART [NOVOLOG] 3 ML PEN SC SCH ×4 (00:41→17:34)
[2016-12-30 07:49] LABS: POTASSIUM 4.1 mmol/L (3.5-5.1)
[2016-12-30 07:52] LABS: CALCIUM 8.5 mg/dl (8.4-10.2); CREATININE 0.52 mg/dl (0.44-1.00)
[2016-12-30] MEDS: LEVETIRACETAM IV 500 MG in DEXTROSE 5% 100 ML IVPB SCH ×2 (08:34→21:31)
[2016-12-30] MEDS: CEFEPIME 1GM/50 ML (PMX) 50 ML IVPB SCH ×2 (08:35→21:30)
[2016-12-30 08:37] LABS: BASOPHILS % 0.6 % (0.0-2.0); EOSINOPHILS # 0.3 10^3/ul (0.0-0.5); EOSINOPHILS % 7.1 % (0.0-7.0); HEMATOCRIT 30.5 % (37.0-47.0); HEMOGLOBIN 10.5 g/dl (12.0-16.0); LYMPHOCYTES # 1.7 10^3/ul (0.8-2.9); LYMPHOCYTES % 34.6 % (15.0-51.0); MEAN CORPUSCULAR HEMOGLOBIN 33.3 pg (29.0-33.0); MEAN CORPUSCULAR HGB CONC 34.3 g/dl (32.0-37.0); MEAN CORPUSCULAR VOLUME 96.8 fl (82.0-101.0); MEAN PLATELET VOLUME 7.9 fl (7.4-10.4); MONOCYTE # 0.4 10^3/ul (0.3-0.9); MONOCYTES % 8.1 % (0.0-11.0); NEUTROPHIL # 2.5 10^3/ul (1.6-7.5); NEUTROPHILS % 49.6 % (39.0-77.0); PLATELET COUNT 527 10^3/UL (140-440); RED BLOOD COUNT 3.15 10^6/ul (4.20-5.40); RED CELL DISTRIBUTION WIDTH 15.6 % (11.5-14.5)
[2016-12-30] MEDS: ENOXAPARIN 40 MG/0.4 ML SYG SC SCH (08:40)
[2016-12-30 08:48] LABS: CONDITION 1; LH ANALYZER COMMENTS 1
--- NOTE | 2016-12-30 12:48 | PN ---
Date/Time of Note Date/Time of Note DATE: 12/30/16 TIME: 12:46 Assessment/Plan VTE Prophylaxis VTE Prophylaxis Intervention: SCD's Lines/Catheters IV Catheter Type (from Nrsg): PICC Line Central line still needed: Yes Urinary Cath still in place: Yes Reason Cath still needed: urinary retention Assessment/Plan Assessment/Plan 1. Tonic-clonic seizure.- no seizures reported. - PER Dr Lee in neurology consult -cont. on telemetry floor - seizure precautions - fu EEG - MRI Head done- FU 2. Urinary tract infection. 3. Schizophrenia and bipolar disorder- no acute issues 4. Hypertension- stable 4. Tachycardia- cont to monitor, cardiology consult when needed 5. Diabetes mellitus. - Glycemic control 6. Dyslipidemia. Further recommendations will depend on the patient's hospital course and recommendations from neurologist. Subjective 24 Hr Interval Summary Constitutional: improved Eyes: no complaints ENT: no complaints Respiratory: no complaints Cardiovascular: no complaints Gastrointestinal: no complaints Genitourinary: no complaints Musculoskeletal: no complaints Neurologic: no complaints Endocrine: no complaints Lymphatic: no complaints Psychological: no complaints Exam/Review of Systems Vital Signs Vitals Vital Signs Date Time Temp Pulse Resp B/P Pulse Ox O2 Delivery O2 Flow Rate FiO2 12/30/16 12:39 116 12/30/16 11:50 97.9 17 107/55 94 12/29/16 20:00 Nasal Cannula 3.0 Intake and Output 12/29/16 12/29/16 12/30/16 15:00 23:00 07:00 Output Total 750 ml Balance -750 ml Exam Constitutional: alert, well developed Psych: nl mood/affect Head: atraumatic Eyes: EOMI, PERRL, nl sclera ENMT: nl external ears & nose Respiratory: clear to auscultation Cardiovascular: nl pulses Gastrointestinal: non-tender, soft Musculoskeletal: nl extremities to inspection Neurological: nl speech Results Result Diagram: 12/30/16 0655 12/30/16 0655 Results 24 hrs Laboratory Tests Test 12/29/16 13:25 12/29/16 19:01 12/30/16 00:24 12/30/16 06:50 Bedside Glucose 174 223 H 197 258 H Test 12/30/16 06:55 Anion Gap 13 Basophils # 0.0 Basophils % 0.6 Blood Morphology Comment Blood Urea Nitrogen 5 L Calcium Level 8.5 Carbon Dioxide Level 26 Chloride Level 103 Creatinine 0.52 Eosinophils # 0.3 Eosinophils % 7.1 H Glucose Level 247 #H Hematocrit 30.5 L Hemoglobin 10.5 L Lymphocytes # 1.7 Lymphocytes % 34.6 Mean Corpuscular Hemoglobin 33.3 H Mean Corpuscular Hemoglobin Concent 34.3 Mean Corpuscular Volume 96.8 Mean Platelet Volume 7.9 Monocytes # 0.4 Monocytes % 8.1 Neutrophils # 2.5 Neutrophils % 49.6 Nucleated Red Blood Cells # 0.0 Nucleated Red Blood Cells % 0.0 Platelet Count 527 H Potassium Level 4.1 Red Blood Count 3.15 L Red Cell Distribution Width 15.6 H Sodium Level 138 White Blood Count 5.0 # Medications Medications Current Medications Levetiracetam 500 mg/Dextrose 105 ml @ 420 mls/hr Q12 IVPB Last administered on 12/30/16 08:34; Admin Dose 420 MLS/HR; Start 12/29/16 at 09:00 Potassium Chloride/Dextrose/ Sod Cl 1,000 ml @ 100 mls/hr Q10H IV Last administered on 12/30/16 00:32; Admin Dose 100 MLS/HR; Start 12/29/16 at 02:30 Cefepime HCl (Maxipime 1gm/50 ml (Pmx)) 50 ml @ 100 mls/hr Q12 IVPB Last administered on 12/30/16 08:35; Admin Dose 100 MLS/HR; Start 12/29/16 at 09:00 Acetaminophen (Tylenol Supp) 650 mg Q6H PRN [place] ELEVATED TEMPERATURE; Start at 02:30 Insulin Aspart (Novolog Insulin Pen) NOVOLOG *MILD* ALGORI... Q6 SC Last administered on 12/30/16 06:55; Admin Dose 3 UNIT; Start 12/29/16 at 06:00 Enoxaparin Sodium (Lovenox) 40 mg DAILY SC Last administered on 12/30/16 08:40 ; Admin Dose 40 MG; Start 12/29/16 at 09:00 Miscellaneous Information 1 ea NOTE XX ; Start 12/29/16 at 03:00 Glucose (Glutose) 15 gm Q15M PRN PO DECREASED GLUCOSE; Start 12/29/16 at 03:00 Glucose (Glutose) 22.5 gm Q15M PRN PO DECREASED GLUCOSE; Start 12/29/16 at 03: 00 Dextrose (D50w Syringe) 25 ml Q15M PRN IV DECREASED GLUCOSE; Start 12/29/16 at 03:00 Dextrose (D50w Syringe) 50 ml Q15M PRN IV DECREASED GLUCOSE; Start 12/29/16 at 03:00 Glucagon (Glucagen) 1 mg Q15M PRN IM DECREASED GLUCOSE; Start 12/29/16 at 03:00 Glucose (Glutose) 15 gm Q15M PRN BUCCAL DECREASED GLUCOSE; Start 12/29/16 at 03 :00 MICHAEL COLINDRES Dec 30, 2016 12:48
--- NOTE | 2016-12-30 13:51 | CONS ---
Date/Time of Note Date/Time of Note DATE: 12/30/16 TIME: 13:41 Assessment/Plan Assessment/Plan Chief Complaint/Hosp Course Seizure episode Problems: Additional Assessment/Plan The patient is a 56-year-old female with a history of hypertension, diabetes, dyslipidemia, schizophrenia, bipolar disorder, recent septic shock due to Urosepsis admitted seizure activity. CT of the head revealed no evidence of acute intracranial pathology. EEG is normal. MRI of brain showed chronic white matter disease, atrophy and ventriculomegaly, nothing acute. She was atsrted on Keppra. PLAN: 1 Continue Keppra 2 seizure precautions 3 will follow Consultation Date/Type/Reason Admit Date/Time Dec 28, 2016 at 16:56 Date of Consultation: Dec 30, 2016 Reason for Consultation Mamta Referring Provider: LUZMA HYMAN MD Hx of Present Illness The patient is a 56-year-old female with a history of hypertension, diabetes, dyslipidemia, schizophrenia, bipolar disorder, recent septic shock due to Urosepsis. While in SNF she was noted to have a breakthrough seizure today. The patient was immediately sent to [facility] ER where she was postictal and urine examination was suggestive of urinary tract infection. The patient was given IV Zosyn and IV Keppra in the ER. The patient's white count was 10,000. CT of the head revealed no evidence of acute intracranial pathology. EEG is normal. MRI of brain showed chronic white mattaer disease, atrophy and ventriculomegaly, nothing acute. Constitutional: improved Eyes: no complaints ENT: no complaints Respiratory: no complaints Cardiovascular: no complaints Gastrointestinal: no complaints Genitourinary: no complaints Musculoskeletal: no complaints Neurologic: no complaints Endocrine: no complaints Lymphatic: no complaints Psychological: nl mood/affect Past Medical History Medical History: hypertension, other (Bipolar disorder, Schizophrenia, Urosepsis) Past Surgical History Past Surgical Hx: no surgical history Social History Alcohol Use: none Smoking Status: Unknown if ever smoked Exam/Review of Systems Vital Signs Vitals Vital Signs Date Time Temp Pulse Resp B/P Pulse Ox O2 Delivery O2 Flow Rate FiO2 12/30/16 12:39 116 12/30/16 11:50 97.9 17 107/55 94 12/29/16 20:00 Nasal Cannula 3.0 Intake and Output 12/29/16 12/29/16 12/30/16 15:00 23:00 07:00 Output Total 750 ml Balance -750 ml Exam Constitutional: alert Psych: nl mood/affect Head: atraumatic, normocephalic Eyes: EOMI, nl conjunctiva, nl lids, nl sclera ENMT: mucosa pink and moist, nl external ears & nose, nl lips & teeth, nl nasal mucosa & septum Neck: non-tender, supple Respiratory: clear to auscultation, normal air movement Cardiovascular: nl pulses, regular rate and rhythm Gastrointestinal: nl liver, spleen, non-tender, soft Extremities: normal pulses Neurological: other (Alert and awake, following all commands, mask facies, bradykinesia, low tone voice, increase tone and rigidity bilateral upper and lower extremities.) Lymph: nl lymph nodes Results Result Diagram: 12/30/16 0655 12/30/16 0655 Results 24 hrs Laboratory Tests Test 12/29/16 19:01 12/30/16 00:24 12/30/16 06:50 12/30/16 06:55 Bedside Glucose 223 H 197 258 H Anion Gap 13 Basophils # 0.0 Basophils % 0.6 Blood Morphology Comment Blood Urea Nitrogen 5 L Calcium Level 8.5 Carbon Dioxide Level 26 Chloride Level 103 Creatinine 0.52 Eosinophils # 0.3 Eosinophils % 7.1 H Glucose Level 247 #H Hematocrit 30.5 L Hemoglobin 10.5 L Lymphocytes # 1.7 Lymphocytes % 34.6 Mean Corpuscular Hemoglobin 33.3 H Mean Corpuscular Hemoglobin Concent 34.3 Mean Corpuscular Volume 96.8 Mean Platelet Volume 7.9 Monocytes # 0.4 Monocytes % 8.1 Neutrophils # 2.5 Neutrophils % 49.6 Nucleated Red Blood Cells # 0.0 Nucleated Red Blood Cells % 0.0 Platelet Count 527 H Potassium Level 4.1 Red Blood Count 3.15 L Red Cell Distribution Width 15.6 H Sodium Level 138 White Blood Count 5.0 # Test 12/30/16 12:41 Bedside Glucose 257 H Medications Medications Current Medications Levetiracetam 500 mg/Dextrose 105 ml @ 420 mls/hr Q12 IVPB Last administered on 12/30/16 08:34; Admin Dose 420 MLS/HR; Start 12/29/16 at 09:00 Potassium Chloride/Dextrose/ Sod Cl 1,000 ml @ 100 mls/hr Q10H IV Last administered on 12/30/16 00:32; Admin Dose 100 MLS/HR; Start 12/29/16 at 02:30 Cefepime HCl (Maxipime 1gm/50 ml (Pmx)) 50 ml @ 100 mls/hr Q12 IVPB Last administered on 12/30/16 08:35; Admin Dose 100 MLS/HR; Start 12/29/16 at 09:00 Acetaminophen (Tylenol Supp) 650 mg Q6H PRN [place] ELEVATED TEMPERATURE; Start at 02:30 Insulin Aspart (Novolog Insulin Pen) NOVOLOG *MILD* ALGORI... Q6 SC Last administered on 12/30/16 12:49; Admin Dose 3 UNIT; Start 12/29/16 at 06:00 Enoxaparin Sodium (Lovenox) 40 mg DAILY SC Last administered on 12/30/16 08:40 ; Admin Dose 40 MG; Start 12/29/16 at 09:00 Miscellaneous Information 1 ea NOTE XX ; Start 12/29/16 at 03:00 Glucose (Glutose) 15 gm Q15M PRN PO DECREASED GLUCOSE; Start 12/29/16 at 03:00 Glucose (Glutose) 22.5 gm Q15M PRN PO DECREASED GLUCOSE; Start 12/29/16 at 03: 00 Dextrose (D50w Syringe) 25 ml Q15M PRN IV DECREASED GLUCOSE; Start 12/29/16 at 03:00 Dextrose (D50w Syringe) 50 ml Q15M PRN IV DECREASED GLUCOSE; Start 12/29/16 at 03:00 Glucagon (Glucagen) 1 mg Q15M PRN IM DECREASED GLUCOSE; Start 12/29/16 at 03:00 Glucose (Glutose) 15 gm Q15M PRN BUCCAL DECREASED GLUCOSE; Start 12/29/16 at 03 :00 Procedures Procedures 12/28/16 CT brain IMPRESSION: 1. No evidence of acute intracranial pathology. 2. Mild to moderate volume loss, with central predominance. 3. mild chronic small vessel ischemic changes. RPTAT: VV .Ramon Black MD, Date Time Electronically viewed and signed by .Ramon Black MD, MD on 12/28/2016 16:45 12/29/16 MRI of brain IMPRESSION: 1. No acute or early subacute ischemic infarction or acute intracranial abnormality. 2. Chronic microvascular ischemic changes in the deep white matter with marked ventriculomegaly and diffuse age-related atrophy. 3. No intracranial hemorrhage. RPTAT:AAJJ Francheska [place] Physician Date Time Electronically viewed and signed by Physician Jovany on 12/29/2016 16:56 LYN BUTLER MD Dec 30, 2016 13:51
--- NOTE | 2016-12-30 18:54 | SP ---
DATE OF PROCEDURE: 12/29/2016 ELECTROENCEPHALOGRAM REPORT This is a 56-year-old woman who was admitted with an episode of generalized tonic-clonic seizure act ivity. CURRENT MEDICATIONS: Keppra. PROCEDURE: Utilizing a 16-channel EEG machine, cap scalp electrodes were applied in accordance with International 10-20 system. [id number] and [id number] montages were displayed. Electrical i mpedances were measured and reported. DESCRIPTION: During the resting state a posterior dominant rhythm of about 8 to 9 Hz were seen bihe mispherically. Photic stimulation had a good response. Hyperventilation was not performed. There was no focal lateralizing or epileptiform discharge identified. INTERPRETATION: This is a normal EEG. A normal EEG does not exclude seizure disorder. Please inez elate clinically. Dictated By: LYN MAY/RUSTY Conf#: [id number] DID#: [id number]
[2016-12-31] VITALS (13 sets, daily range): BP systolic 96–166; BP diastolic 52–68; PULSE 84–111; RESP 18–20
[2016-12-31] MEDS: INSULIN ASPART [NOVOLOG] 3 ML PEN SC SCH ×6 (00:06→23:52)
[2016-12-31] MEDS: D5W-0.45 NACL + KCL 20 MEQ 1,000 ML IV SCH ×2 (04:30→09:39)
[2016-12-31 08:43] LABS: BASOPHILS % 0.6 % (0.0-2.0); EOSINOPHILS # 0.3 10^3/ul (0.0-0.5); EOSINOPHILS % 5.3 % (0.0-7.0); HEMATOCRIT 30.4 % (37.0-47.0); HEMOGLOBIN 10.4 g/dl (12.0-16.0); LYMPHOCYTES # 1.9 10^3/ul (0.8-2.9); MEAN CORPUSCULAR HGB CONC 34.1 g/dl (32.0-37.0); MEAN CORPUSCULAR VOLUME 96.8 fl (82.0-101.0); MEAN PLATELET VOLUME 7.9 fl (7.4-10.4); MONOCYTE # 0.4 10^3/ul (0.3-0.9); NEUTROPHIL # 2.4 10^3/ul (1.6-7.5); NEUTROPHILS % 47.1 % (39.0-77.0); PLATELET COUNT 550 10^3/UL (140-440); RED BLOOD COUNT 3.14 10^6/ul (4.20-5.40)
[2016-12-31 08:46] LABS: CONDITION 1; LH ANALYZER COMMENTS 1
[2016-12-31 08:52] LABS: POTASSIUM 3.6 mmol/L (3.5-5.1)
[2016-12-31 08:54] LABS: CREATININE 0.47 mg/dl (0.44-1.00)
[2016-12-31 08:55] LABS: CALCIUM 8.1 mg/dl (8.4-10.2)
[2016-12-31] MEDS: CEFEPIME 1GM/50 ML (PMX) 50 ML IVPB SCH ×2 (09:38→22:02)
[2016-12-31] MEDS: LEVETIRACETAM IV 500 MG in DEXTROSE 5% 100 ML IVPB SCH ×2 (09:38→22:02)
[2016-12-31] MEDS: ENOXAPARIN 40 MG/0.4 ML SYG SC SCH (09:40)
--- NOTE | 2016-12-31 12:05 | CONS ---
Date/Time of Note Date/Time of Note DATE: 12/31/16 TIME: 12:03 Consult Date/Type/Reason Admit Date/Time Dec 28, 2016 at 16:56 Initial Consult Date 12/30/16 Reason for Consultation seizure management Ordering Provider: LUZMA HYMAN MD Subjective initiated on Keppra, no further seizures noted Objective Vital Signs Date Time Temp Pulse Resp B/P Pulse Ox O2 Delivery O2 Flow Rate FiO2 12/31/16 08:31 97.5 107 18 131/63 97 12/30/16 22:00 Nasal Cannula 3.0 Intake and Output 12/30/16 12/30/16 12/31/16 15:00 23:00 07:00 Output Total 1000 ml Balance -1000 ml Exam Constitutional: alert Psych: nl mood/affect Head: atraumatic, normocephalic Eyes: EOMI, nl conjunctiva, nl lids, nl sclera ENMT: mucosa pink and moist, nl external ears & nose, nl lips & teeth, nl nasal mucosa & septum Neck: non-tender, supple Respiratory: clear to auscultation, normal air movement Cardiovascular: nl pulses, regular rate and rhythm Gastrointestinal: nl liver, spleen, non-tender, soft Extremities: normal pulses Neurological: other (Alert and awake, following all commands, mask facies, bradykinesia, low tone voice, increase tone and rigidity bilateral upper and lower extremities.) Lymph: nl lymph nodes Results/Medications Result Diagram: 12/31/16 0740 12/31/16 0740 Results 24 hrs Laboratory Tests Test 12/30/16 12:41 12/30/16 17:30 12/31/16 00:03 12/31/16 06:28 Bedside Glucose 257 H 224 H 301 H 278 H Test 12/31/16 07:40 Anion Gap 14 Basophils # 0.0 Basophils % 0.6 Blood Morphology Comment Blood Urea Nitrogen 3 L Calcium Level 8.1 L Carbon Dioxide Level 26 Chloride Level 106 Creatinine 0.47 Eosinophils # 0.3 Eosinophils % 5.3 Glucose Level 208 Hematocrit 30.4 L Hemoglobin 10.4 L Lymphocytes # 1.9 Lymphocytes % 38.0 Mean Corpuscular Hemoglobin 33.0 Mean Corpuscular Hemoglobin Concent 34.1 Mean Corpuscular Volume 96.8 Mean Platelet Volume 7.9 Monocytes # 0.4 Monocytes % 9.0 Neutrophils # 2.4 Neutrophils % 47.1 Nucleated Red Blood Cells # 0.0 Nucleated Red Blood Cells % 0.0 Platelet Count 550 H Potassium Level 3.6 Red Blood Count 3.14 L Red Cell Distribution Width 15.0 H Sodium Level 142 White Blood Count 5.0 Medications Current Medications Levetiracetam 500 mg/Dextrose 105 ml @ 420 mls/hr Q12 IVPB Last administered on 12/31/16 09:38; Admin Dose 420 MLS/HR; Start 12/29/16 at 09:00 Potassium Chloride/Dextrose/ Sod Cl 1,000 ml @ 100 mls/hr Q10H IV Last administered on 12/31/16 09:39; Admin Dose 100 MLS/HR; Start 12/29/16 at 02:30 Cefepime HCl (Maxipime 1gm/50 ml (Pmx)) 50 ml @ 100 mls/hr Q12 IVPB Last administered on 12/31/16 09:38; Admin Dose 100 MLS/HR; Start 12/29/16 at 09:00 Acetaminophen (Tylenol Supp) 650 mg Q6H PRN [place] ELEVATED TEMPERATURE; Start at 02:30 Insulin Aspart (Novolog Insulin Pen) NOVOLOG *MILD* ALGORI... Q6 SC Last administered on 12/31/16 06:31; Admin Dose 4 UNIT; Start 12/29/16 at 06:00 Enoxaparin Sodium (Lovenox) 40 mg DAILY SC Last administered on 12/31/16 09:40 ; Admin Dose 40 MG; Start 12/29/16 at 09:00 Miscellaneous Information 1 ea NOTE XX ; Start 12/29/16 at 03:00 Glucose (Glutose) 15 gm Q15M PRN PO DECREASED GLUCOSE; Start 12/29/16 at 03:00 Glucose (Glutose) 22.5 gm Q15M PRN PO DECREASED GLUCOSE; Start 12/29/16 at 03: 00 Dextrose (D50w Syringe) 25 ml Q15M PRN IV DECREASED GLUCOSE; Start 12/29/16 at 03:00 Dextrose (D50w Syringe) 50 ml Q15M PRN IV DECREASED GLUCOSE; Start 12/29/16 at 03:00 Glucagon (Glucagen) 1 mg Q15M PRN IM DECREASED GLUCOSE; Start 12/29/16 at 03:00 Glucose (Glutose) 15 gm Q15M PRN BUCCAL DECREASED GLUCOSE; Start 12/29/16 at 03 :00 Assessment/Plan Chief Complaint/Hosp Course 56-year-old female with a history of hypertension, diabetes, dyslipidemia, schizophrenia, bipolar disorder, recent septic shock due to Urosepsis admitted seizure activity. CT of the head revealed no evidence of acute intracranial pathology. EEG is normal. MRI of brain showed chronic white matter disease, atrophy and ventriculomegaly, nothing acute. She was atsrted on Keppra. Problems: Additional Assessment/Plan continue current dose of Keppra seizure precautions continue medical management, will follow KEVON SYLVESTER MD Dec 31, 2016 12:04
--- NOTE | 2016-12-31 14:38 | PN ---
Date/Time of Note Date/Time of Note DATE: 12/31/16 TIME: 14:31 Assessment/Plan VTE Prophylaxis VTE Prophylaxis Intervention: SCD's Lines/Catheters IV Catheter Type (from Nrs): PICC Line Central line still needed: Yes Urinary Cath still in place: Yes Reason Cath still needed: urinary retention Assessment/Plan Chief Complaint/Hosp Course Assessment and plan: 1. Tonic-clonic seizure. Patient is followed by Dr. Lee in neurology, continue Keppra. 2. Urinary tract infection per UA. Obtain urine culture. Continue cefepime. 3. Schizophrenia and bipolar disorder. 4. Hypertension. Patient is currently normotensive. 5. Diabetes mellitus. Restart patient on Lantus and NovoLog with meals. 6. Dyslipidemia. Continue Crestor. Further recommendations based on clinical course. Plan of care discussed with Dr. Aly. Problems: Subjective 24 Hr Interval Summary Free Text/Dictation Patient is awake alert, no seizure activity noted, sinus tach on telemetry. No fever nausea vomiting per RN. Exam/Review of Systems Vital Signs Vitals Vital Signs Date Time Temp Pulse Resp B/P Pulse Ox O2 Delivery O2 Flow Rate FiO2 12/31/16 12:10 111 12/31/16 12:06 98.0 18 121/56 98 12/31/16 09:00 Nasal Cannula 3.0 Intake and Output 12/30/16 12/30/16 12/31/16 15:00 23:00 07:00 Output Total 1000 ml Balance -1000 ml Exam GENERAL: Awake alert HEENT: Atraumatic, normocephalic. NECK: Supple. No masses or thyromegaly. CHEST: Lung sounds clear bilaterally CARDIOVASCULAR: Regular rate and rhythm. S1, S2 normal. No murmur, gallop, or rub. ABDOMEN: Soft, nondistended, nontender. Bowel sounds plus. EXTREMITIES: No leg edema. NEUROLOGIC: Awake alert and oriented to name and situation. SKIN: Without acute rash. No clubbing or cyanosis. Results Result Diagram: 12/31/16 0740 12/31/16 0740 Results 24 hrs Laboratory Tests Test 12/30/16 17:30 12/31/16 00:03 12/31/16 06:28 12/31/16 07:40 Bedside Glucose 224 H 301 H 278 H Anion Gap 14 Basophils # 0.0 Basophils % 0.6 Blood Morphology Comment Blood Urea Nitrogen 3 L Calcium Level 8.1 L Carbon Dioxide Level 26 Chloride Level 106 Creatinine 0.47 Eosinophils # 0.3 Eosinophils % 5.3 Glucose Level 208 Hematocrit 30.4 L Hemoglobin 10.4 L Lymphocytes # 1.9 Lymphocytes % 38.0 Mean Corpuscular Hemoglobin 33.0 Mean Corpuscular Hemoglobin Concent 34.1 Mean Corpuscular Volume 96.8 Mean Platelet Volume 7.9 Monocytes # 0.4 Monocytes % 9.0 Neutrophils # 2.4 Neutrophils % 47.1 Nucleated Red Blood Cells # 0.0 Nucleated Red Blood Cells % 0.0 Platelet Count 550 H Potassium Level 3.6 Red Blood Count 3.14 L Red Cell Distribution Width 15.0 H Sodium Level 142 White Blood Count 5.0 Test 12/31/16 12:29 Bedside Glucose 211 Medications Medications Current Medications Levetiracetam 500 mg/Dextrose 105 ml @ 420 mls/hr Q12 IVPB Last administered on 12/31/16 09:38; Admin Dose 420 MLS/HR; Start 12/29/16 at 09:00 Potassium Chloride/Dextrose/ Sod Cl 1,000 ml @ 100 mls/hr Q10H IV Last administered on 12/31/16 09:39; Admin Dose 100 MLS/HR; Start 12/29/16 at 02:30 Cefepime HCl (Maxipime 1gm/50 ml (Pmx)) 50 ml @ 100 mls/hr Q12 IVPB Last administered on 12/31/16 09:38; Admin Dose 100 MLS/HR; Start 12/29/16 at 09:00 Acetaminophen (Tylenol Supp) 650 mg Q6H PRN [place] ELEVATED TEMPERATURE; Start at 02:30 Insulin Aspart (Novolog Insulin Pen) NOVOLOG *MILD* ALGORI... Q6 SC Last administered on 12/31/16 12:34; Admin Dose 2 UNIT; Start 12/29/16 at 06:00 Enoxaparin Sodium (Lovenox) 40 mg DAILY SC Last administered on 12/31/16 09:40 ; Admin Dose 40 MG; Start 12/29/16 at 09:00 Miscellaneous Information 1 ea NOTE XX ; Start 12/29/16 at 03:00 Glucose (Glutose) 15 gm Q15M PRN PO DECREASED GLUCOSE; Start 12/29/16 at 03:00 Glucose (Glutose) 22.5 gm Q15M PRN PO DECREASED GLUCOSE; Start 12/29/16 at 03: 00 Dextrose (D50w Syringe) 25 ml Q15M PRN IV DECREASED GLUCOSE; Start 12/29/16 at 03:00 Dextrose (D50w Syringe) 50 ml Q15M PRN IV DECREASED GLUCOSE; Start 12/29/16 at 03:00 Glucagon (Glucagen) 1 mg Q15M PRN IM DECREASED GLUCOSE; Start 12/29/16 at 03:00 Glucose (Glutose) 15 gm Q15M PRN BUCCAL DECREASED GLUCOSE; Start 12/29/16 at 03 :00 DENA SALGUERO Dec 31, 2016 14:38
[2016-12-31] MEDS: ATORVASTATIN 40 MG TAB PO SCH (21:00)
[2016-12-31] MEDS: INSULIN GLARGINE [LANtus] 3 ML PEN SC SCH (22:14)
[2017-01-01] VITALS (11 sets, daily range): BP systolic 105–163; BP diastolic 51–70; PULSE 90–118; RESP 18–21
[2017-01-01] MEDS: D5W-0.45 NACL + KCL 20 MEQ 1,000 ML IV SCH ×3 (01:20→23:04)
[2017-01-01] MEDS: INSULIN ASPART [NOVOLOG] 3 ML PEN SC SCH ×6 (06:17→23:10)
[2017-01-01 07:09] LABS: BASOPHILS % 0.6 % (0.0-2.0); EOSINOPHILS # 0.2 10^3/ul (0.0-0.5); EOSINOPHILS % 4.2 % (0.0-7.0); HEMATOCRIT 30.5 % (37.0-47.0); HEMOGLOBIN 10.4 g/dl (12.0-16.0); LYMPHOCYTES # 2.4 10^3/ul (0.8-2.9); LYMPHOCYTES % 44.9 % (15.0-51.0); MEAN CORPUSCULAR HEMOGLOBIN 33.5 pg (29.0-33.0); MEAN CORPUSCULAR HGB CONC 34.1 g/dl (32.0-37.0); MEAN CORPUSCULAR VOLUME 98.3 fl (82.0-101.0); MEAN PLATELET VOLUME 8.2 fl (7.4-10.4); MONOCYTE # 0.5 10^3/ul (0.3-0.9); MONOCYTES % 8.5 % (0.0-11.0); NEUTROPHIL # 2.2 10^3/ul (1.6-7.5); NEUTROPHILS % 41.8 % (39.0-77.0); PLATELET COUNT 533 10^3/UL (140-440); RED CELL DISTRIBUTION WIDTH 15.3 % (11.5-14.5); UNCORRECTED WBC 5.3 10^3/ul (4.8-10.8); WHITE BLOOD COUNT 5.3 10^3/ul (4.8-10.8)
[2017-01-01 07:30] LABS: POTASSIUM 4.6 mmol/L (3.5-5.1)
[2017-01-01 07:33] LABS: CREATININE 0.45 mg/dl (0.44-1.00)
[2017-01-01 07:34] LABS: CALCIUM 8.3 mg/dl (8.4-10.2)
[2017-01-01 07:43] LABS: CONDITION 1; LH ANALYZER COMMENTS 1
[2017-01-01] MEDS: LEVETIRACETAM IV 500 MG in DEXTROSE 5% 100 ML IVPB SCH ×2 (08:56→22:06)
[2017-01-01] MEDS: ENOXAPARIN 40 MG/0.4 ML SYG SC SCH (08:59)
[2017-01-01] MEDS: CEFEPIME 1GM/50 ML (PMX) 50 ML IVPB SCH ×2 (09:45→20:32)
--- NOTE | 2017-01-01 12:52 | CONS ---
Date/Time of Note Date/Time of Note DATE: 01/01/17 TIME: 12:50 Consult Date/Type/Reason Admit Date/Time Dec 28, 2016 at 16:56 Initial Consult Date 12/30/16 Type of Consultation: neurology Ordering Provider: LUZMA HYMAN MD Subjective no complaints, awake and alert this morning says she feels fine, no seizure overnight Objective Vital Signs Date Time Temp Pulse Resp B/P Pulse Ox O2 Delivery O2 Flow Rate FiO2 01/01/17 12:07 108 01/01/17 11:42 98.9 20 120/55 100 01/01/17 09:00 Nasal Cannula 3.0 Intake and Output 12/31/16 12/31/16 01/01/17 15:00 23:00 07:00 Intake Total 1250 ml Output Total 750 ml Balance 500 ml Exam Constitutional: alert Psych: nl mood/affect Head: atraumatic, normocephalic Eyes: EOMI, nl conjunctiva, nl lids, nl sclera ENMT: mucosa pink and moist, nl external ears & nose, nl lips & teeth, nl nasal mucosa & septum Neck: non-tender, supple Respiratory: clear to auscultation, normal air movement Cardiovascular: nl pulses, regular rate and rhythm Gastrointestinal: nl liver, spleen, non-tender, soft Extremities: normal pulses Neurological: other (Alert and awake, following all commands, mask facies, bradykinesia, low tone voice, increase tone and rigidity bilateral upper and lower extremities.) Lymph: nl lymph nodes Results/Medications Result Diagram: 01/01/17 0611 01/01/17 0611 Results 24 hrs Laboratory Tests Test 12/31/16 17:30 12/31/16 23:45 01/01/17 00:33 01/01/17 06:11 Bedside Glucose 131 329 H 338 H Anion Gap 14 Basophils # 0.0 Basophils % 0.6 Blood Morphology Comment Blood Urea Nitrogen 3 L Calcium Level 8.3 L Carbon Dioxide Level 24 Chloride Level 104 Creatinine 0.45 Eosinophils # 0.2 Eosinophils % 4.2 Glucose Level 281 H Hematocrit 30.5 L Hemoglobin 10.4 L Hemoglobin A1c 7.0 H Lymphocytes # 2.4 Lymphocytes % 44.9 Mean Corpuscular Hemoglobin 33.5 H Mean Corpuscular Hemoglobin Concent 34.1 Mean Corpuscular Volume 98.3 Mean Platelet Volume 8.2 Monocytes # 0.5 Monocytes % 8.5 Neutrophils # 2.2 Neutrophils % 41.8 Nucleated Red Blood Cells # 0.0 Nucleated Red Blood Cells % 0.0 Platelet Count 533 H Potassium Level 4.6 Red Blood Count 3.10 L Red Cell Distribution Width 15.3 H Sodium Level 137 White Blood Count 5.3 Test 01/01/17 06:14 01/01/17 09:03 01/01/17 12:00 Bedside Glucose 168 251 H 158 Medications Current Medications Levetiracetam 500 mg/Dextrose 105 ml @ 420 mls/hr Q12 IVPB Last administered on 01/01/17 08:56; Admin Dose 420 MLS/HR; Start 12/29/16 at 09:00 Potassium Chloride/Dextrose/ Sod Cl 1,000 ml @ 100 mls/hr Q10H IV Last administered on 01/01/17 11:01; Admin Dose 100 MLS/HR; Start 12/29/16 at 02:30 Cefepime HCl (Maxipime 1gm/50 ml (Pmx)) 50 ml @ 100 mls/hr Q12 IVPB Last administered on 01/01/17 09:45; Admin Dose 100 MLS/HR; Start 12/29/16 at 09:00 Acetaminophen (Tylenol Supp) 650 mg Q6H PRN [place] ELEVATED TEMPERATURE; Start at 02:30 Insulin Aspart (Novolog Insulin Pen) NOVOLOG *MILD* ALGORI... Q6 SC Last administered on 01/01/17 06:17; Admin Dose 1 UNIT; Start 12/29/16 at 06:00 Enoxaparin Sodium (Lovenox) 40 mg DAILY SC Last administered on 01/01/17 08:59 ; Admin Dose 40 MG; Start 12/29/16 at 09:00 Miscellaneous Information 1 ea NOTE XX ; Start 12/29/16 at 03:00 Glucose (Glutose) 15 gm Q15M PRN PO DECREASED GLUCOSE; Start 12/29/16 at 03:00 Glucose (Glutose) 22.5 gm Q15M PRN PO DECREASED GLUCOSE; Start 12/29/16 at 03: 00 Dextrose (D50w Syringe) 25 ml Q15M PRN IV DECREASED GLUCOSE; Start 12/29/16 at 03:00 Dextrose (D50w Syringe) 50 ml Q15M PRN IV DECREASED GLUCOSE; Start 12/29/16 at 03:00 Glucagon (Glucagen) 1 mg Q15M PRN IM DECREASED GLUCOSE; Start 12/29/16 at 03:00 Glucose (Glutose) 15 gm Q15M PRN BUCCAL DECREASED GLUCOSE; Start 12/29/16 at 03 :00 Insulin Glargine (Lantus) 12 unit QHS SC Last administered on 12/31/16t 22:14; Admin Dose 12 UNIT; Start 12/31/16 at 21:00 Atorvastatin Calcium (Lipitor) 40 mg DAILY@21 PO ; Start 12/31/16 at 21:00 Assessment/Plan Chief Complaint/Hosp Course 56-year-old female with a history of hypertension, diabetes, dyslipidemia, schizophrenia, bipolar disorder, recent septic shock due to Urosepsis admitted seizure activity. CT of the head revealed no evidence of acute intracranial pathology. EEG is normal. MRI of brain showed chronic white matter disease, atrophy and ventriculomegaly, nothing acute. She was initiated on Keppra with improve of sx, no further seizures. continue current dose of Keppra seizure precautions discharge planning, will sign off please reconsult prn Problems: KEVON SYLVESTER MD Jan 01, 2017 12:52
--- NOTE | 2017-01-01 13:16 | PN ---
Date/Time of Note Date/Time of Note DATE: 01/01/17 TIME: 13:11 Assessment/Plan VTE Prophylaxis VTE Prophylaxis Intervention: SCD's Lines/Catheters IV Catheter Type (from Nrs): PICC Line Central line still needed: Yes Urinary Cath still in place: Yes Reason Cath still needed: urinary retention Assessment/Plan Chief Complaint/Hosp Course Assessment and plan: 1. Tonic-clonic seizure. Patient is followed by Dr. Lee in neurology, continue Keppra. 2. Urinary tract infection per UA. Obtain urine culture. Continue cefepime. 3. Schizophrenia and bipolar disorder. 4. Hypertension. Patient is currently normotensive. 5. Diabetes mellitus. Continue Lantus and NovoLog with meals. 6. Dyslipidemia. Continue Crestor. 7. Dysphasia, patient failed swallow eval, reevaluate daily, continue IV fluids. Further recommendations based on clinical course. Plan of care discussed with Dr. Aly. Problems: Subjective 24 Hr Interval Summary Free Text/Dictation Patient is awake alert, no seizure activity per RN. Exam/Review of Systems Vital Signs Vitals Vital Signs Date Time Temp Pulse Resp B/P Pulse Ox O2 Delivery O2 Flow Rate FiO2 01/01/17 12:07 108 01/01/17 11:42 98.9 20 120/55 100 01/01/17 09:00 Nasal Cannula 3.0 Intake and Output 12/31/16 12/31/16 01/01/17 15:00 23:00 07:00 Intake Total 1250 ml Output Total 750 ml Balance 500 ml Exam GENERAL: Awake alert HEENT: Atraumatic, normocephalic. NECK: Supple. No masses or thyromegaly. CHEST: Lung sounds clear bilaterally CARDIOVASCULAR: Regular rate and rhythm. S1, S2 normal. No murmur, gallop, or rub. ABDOMEN: Soft, nondistended, nontender. Bowel sounds plus. EXTREMITIES: No leg edema. NEUROLOGIC: Awake alert and oriented to name and situation. SKIN: Without acute rash. No clubbing or cyanosis. Results Result Diagram: 01/01/17 0611 01/01/17 0611 Results 24 hrs Laboratory Tests Test 12/31/16 17:30 12/31/16 23:45 01/01/17 00:33 01/01/17 06:11 Bedside Glucose 131 329 H 338 H Anion Gap 14 Basophils # 0.0 Basophils % 0.6 Blood Morphology Comment Blood Urea Nitrogen 3 L Calcium Level 8.3 L Carbon Dioxide Level 24 Chloride Level 104 Creatinine 0.45 Eosinophils # 0.2 Eosinophils % 4.2 Glucose Level 281 H Hematocrit 30.5 L Hemoglobin 10.4 L Hemoglobin A1c 7.0 H Lymphocytes # 2.4 Lymphocytes % 44.9 Mean Corpuscular Hemoglobin 33.5 H Mean Corpuscular Hemoglobin Concent 34.1 Mean Corpuscular Volume 98.3 Mean Platelet Volume 8.2 Monocytes # 0.5 Monocytes % 8.5 Neutrophils # 2.2 Neutrophils % 41.8 Nucleated Red Blood Cells # 0.0 Nucleated Red Blood Cells % 0.0 Platelet Count 533 H Potassium Level 4.6 Red Blood Count 3.10 L Red Cell Distribution Width 15.3 H Sodium Level 137 White Blood Count 5.3 Test 01/01/17 06:14 01/01/17 09:03 01/01/17 12:00 Bedside Glucose 168 251 H 158 Medications Medications Current Medications Levetiracetam 500 mg/Dextrose 105 ml @ 420 mls/hr Q12 IVPB Last administered on 01/01/17 08:56; Admin Dose 420 MLS/HR; Start 12/29/16 at 09:00 Potassium Chloride/Dextrose/ Sod Cl 1,000 ml @ 100 mls/hr Q10H IV Last administered on 01/01/17 11:01; Admin Dose 100 MLS/HR; Start 12/29/16 at 02:30 Cefepime HCl (Maxipime 1gm/50 ml (Pmx)) 50 ml @ 100 mls/hr Q12 IVPB Last administered on 01/01/17 09:45; Admin Dose 100 MLS/HR; Start 12/29/16 at 09:00 Acetaminophen (Tylenol Supp) 650 mg Q6H PRN [place] ELEVATED TEMPERATURE; Start at 02:30 Insulin Aspart (Novolog Insulin Pen) NOVOLOG *MILD* ALGORI... Q6 SC Last administered on 01/01/17 06:17; Admin Dose 1 UNIT; Start 12/29/16 at 06:00 Enoxaparin Sodium (Lovenox) 40 mg DAILY SC Last administered on 01/01/17 08:59 ; Admin Dose 40 MG; Start 12/29/16 at 09:00 Miscellaneous Information 1 ea NOTE XX ; Start 12/29/16 at 03:00 Glucose (Glutose) 15 gm Q15M PRN PO DECREASED GLUCOSE; Start 12/29/16 at 03:00 Glucose (Glutose) 22.5 gm Q15M PRN PO DECREASED GLUCOSE; Start 12/29/16 at 03: 00 Dextrose (D50w Syringe) 25 ml Q15M PRN IV DECREASED GLUCOSE; Start 12/29/16 at 03:00 Dextrose (D50w Syringe) 50 ml Q15M PRN IV DECREASED GLUCOSE; Start 12/29/16 at 03:00 Glucagon (Glucagen) 1 mg Q15M PRN IM DECREASED GLUCOSE; Start 12/29/16 at 03:00 Glucose (Glutose) 15 gm Q15M PRN BUCCAL DECREASED GLUCOSE; Start 12/29/16 at 03 :00 Insulin Glargine (Lantus) 12 unit QHS SC Last administered on 12/31/16t 22:14; Admin Dose 12 UNIT; Start 12/31/16 at 21:00 Atorvastatin Calcium (Lipitor) 40 mg DAILY@21 PO ; Start 12/31/16 at 21:00 DENA SALGUERO Jan 01, 2017 13:16
[2017-01-01] MEDS: ATORVASTATIN 40 MG TAB PO SCH ×2 (20:32→21:00)
[2017-01-01] MEDS: INSULIN GLARGINE [LANtus] 3 ML PEN SC SCH (20:43)
[2017-01-02] VITALS (12 sets, daily range): BP systolic 140–153; BP diastolic 60–70; PULSE 97–116; RESP 16–21
[2017-01-02] MEDS: INSULIN ASPART [NOVOLOG] 3 ML PEN SC SCH ×5 (05:39→17:38)
[2017-01-02] MEDS: LEVETIRACETAM IV 500 MG in DEXTROSE 5% 100 ML IVPB SCH ×2 (08:28→20:46)
[2017-01-02] MEDS: ENOXAPARIN 40 MG/0.4 ML SYG SC SCH (08:31)
[2017-01-02] MEDS: CEFEPIME 1GM/50 ML (PMX) 50 ML IVPB SCH (10:06)
[2017-01-02 10:16] LABS: CHLORIDE 100 mmol/L (97-110)
[2017-01-02 10:17] LABS: POTASSIUM 4.4 mmol/L (3.5-5.1); SODIUM 136 mmol/L (135-144)
[2017-01-02 10:19] LABS: CREATININE 0.43 mg/dl (0.44-1.00)
[2017-01-02 10:20] LABS: ANION GAP 12 (8-16); CALCIUM 8.4 mg/dl (8.4-10.2); CARBON DIOXIDE 28 mmol/L (21-31); GLUCOSE 198 mg/dl (70-220)
[2017-01-02 10:26] LABS: BLOOD UREA NITROGEN < 2 mg/dl (7-20)
[2017-01-02 11:04] LABS: BASOPHILS % 0.4 % (0.0-2.0); EOSINOPHILS % 0.7 % (0.0-7.0); HEMATOCRIT 31.8 % (37.0-47.0); HEMOGLOBIN 10.9 g/dl (12.0-16.0); LYMPHOCYTES # 1.6 10^3/ul (0.8-2.9); LYMPHOCYTES % 21.4 % (15.0-51.0); MEAN CORPUSCULAR HEMOGLOBIN 33.6 pg (29.0-33.0); MEAN CORPUSCULAR HGB CONC 34.3 g/dl (32.0-37.0); MEAN CORPUSCULAR VOLUME 97.8 fl (82.0-101.0); MEAN PLATELET VOLUME 8.2 fl (7.4-10.4); MONOCYTE # 0.7 10^3/ul (0.3-0.9); MONOCYTES % 9.3 % (0.0-11.0); NEUTROPHIL # 5.2 10^3/ul (1.6-7.5); NEUTROPHILS % 68.2 % (39.0-77.0); PLATELET COUNT 640 10^3/UL (140-440); RED BLOOD COUNT 3.25 10^6/ul (4.20-5.40); RED CELL DISTRIBUTION WIDTH 14.9 % (11.5-14.5); UNCORRECTED WBC 7.6 10^3/ul (4.8-10.8); WHITE BLOOD COUNT 7.6 10^3/ul (4.8-10.8)
[2017-01-02 11:07] LABS: CONDITION 1; LH ANALYZER COMMENTS 1
--- NOTE | 2017-01-02 14:28 | PN ---
Date/Time of Note Date/Time of Note DATE: 01/02/17 TIME: 14:28 Assessment/Plan VTE Prophylaxis VTE Prophylaxis Intervention: SCD's Lines/Catheters IV Catheter Type (from Nrs): PICC Line Central line still needed: Yes Urinary Cath still in place: Yes Reason Cath still needed: urinary retention Assessment/Plan Chief Complaint/Hosp Course Assessment and plan: 1. Tonic-clonic seizure. Patient is followed by Dr. Lee in neurology, continue Keppra. 2. Urinary tract infection per UA. Obtain urine culture. Continue cefepime. 3. Schizophrenia and bipolar disorder. 4. Hypertension. Patient is currently normotensive. 5. Diabetes mellitus. Continue Lantus and NovoLog with meals. 6. Dyslipidemia. Continue Crestor. 7. Dysphasia, patient failed swallow eval, reevaluate today, continue IV fluids. Further recommendations based on clinical course. Plan of care discussed with Dr. Aly. Problems: Exam/Review of Systems Vital Signs Vitals Vital Signs Date Time Temp Pulse Resp B/P Pulse Ox O2 Delivery O2 Flow Rate FiO2 01/02/17 12:56 107 01/02/17 11:58 97.7 16 145/64 100 01/01/17 19:15 Nasal Cannula 3.0 Intake and Output 01/01/17 01/01/17 01/02/17 15:00 23:00 07:00 Output Total 400 ml 400 ml Balance -400 ml -400 ml Exam GENERAL: Awake alert HEENT: Atraumatic, normocephalic. NECK: Supple. No masses or thyromegaly. CHEST: Lung sounds clear bilaterally CARDIOVASCULAR: Regular rate and rhythm. S1, S2 normal. No murmur, gallop, or rub. ABDOMEN: Soft, nondistended, nontender. Bowel sounds plus. EXTREMITIES: No leg edema. NEUROLOGIC: Awake alert and oriented to name and situation. SKIN: Without acute rash. No clubbing or cyanosis. Results Result Diagram: 01/02/17 0935 01/02/17 0935 Results 24 hrs Laboratory Tests Test 01/01/17 17:18 01/01/17 20:42 01/01/17 23:06 01/02/17 05:34 Bedside Glucose 229 H 101 144 222 H Test 01/02/17 07:37 01/02/17 09:35 01/02/17 12:22 Bedside Glucose 180 163 Anion Gap 12 Basophils # 0.0 Basophils % 0.4 Blood Morphology Comment Blood Urea Nitrogen < 2 L Calcium Level 8.4 Carbon Dioxide Level 28 Chloride Level 100 Creatinine 0.43 L Eosinophils # 0.0 Eosinophils % 0.7 Glucose Level 198 Hematocrit 31.8 L Hemoglobin 10.9 L Lymphocytes # 1.6 Lymphocytes % 21.4 Mean Corpuscular Hemoglobin 33.6 H Mean Corpuscular Hemoglobin Concent 34.3 Mean Corpuscular Volume 97.8 Mean Platelet Volume 8.2 Monocytes # 0.7 Monocytes % 9.3 Neutrophils # 5.2 Neutrophils % 68.2 Nucleated Red Blood Cells # 0.0 Nucleated Red Blood Cells % 0.0 Platelet Count 640 #H Potassium Level 4.4 Red Blood Count 3.25 L Red Cell Distribution Width 14.9 H Sodium Level 136 White Blood Count 7.6 # Medications Medications Current Medications Levetiracetam 500 mg/Dextrose 105 ml @ 420 mls/hr Q12 IVPB Last administered on 01/02/17 08:28; Admin Dose 420 MLS/HR; Start 12/29/16 at 09:00 Potassium Chloride/Dextrose/ Sod Cl 1,000 ml @ 50 mls/hr Q20H IV Last administered on 01/01/17 23:04; Admin Dose 70 MLS/HR; Start 12/29/16 at 02:30 Cefepime HCl (Maxipime 1gm/50 ml (Pmx)) 50 ml @ 100 mls/hr Q12 IVPB Last administered on 01/02/17 10:06; Admin Dose 100 MLS/HR; Start 12/29/16 at 09:00 Acetaminophen (Tylenol Supp) 650 mg Q6H PRN [place] ELEVATED TEMPERATURE; Start at 02:30 Insulin Aspart (Novolog Insulin Pen) NOVOLOG *MILD* ALGORI... Q6 SC Last administered on 01/02/17 12:50; Admin Dose 1 UNIT; Start 12/29/16 at 06:00 Enoxaparin Sodium (Lovenox) 40 mg DAILY SC Last administered on 01/02/17 08:31 ; Admin Dose 40 MG; Start 12/29/16 at 09:00 Miscellaneous Information 1 ea NOTE XX ; Start 12/29/16 at 03:00 Glucose (Glutose) 15 gm Q15M PRN PO DECREASED GLUCOSE; Start 12/29/16 at 03:00 Glucose (Glutose) 22.5 gm Q15M PRN PO DECREASED GLUCOSE; Start 12/29/16 at 03: 00 Dextrose (D50w Syringe) 25 ml Q15M PRN IV DECREASED GLUCOSE; Start 12/29/16 at 03:00 Dextrose (D50w Syringe) 50 ml Q15M PRN IV DECREASED GLUCOSE; Start 12/29/16 at 03:00 Glucagon (Glucagen) 1 mg Q15M PRN IM DECREASED GLUCOSE; Start 12/29/16 at 03:00 Glucose (Glutose) 15 gm Q15M PRN BUCCAL DECREASED GLUCOSE; Start 12/29/16 at 03 :00 Insulin Glargine (Lantus) 12 unit QHS SC Last administered on 01/01/17t 20:43; Admin Dose 12 UNIT; Start 12/31/16 at 21:00 Atorvastatin Calcium (Lipitor) 40 mg DAILY@21 PO ; Start 12/31/16 at 21:00 DENA SALGUERO Jan 02, 2017 14:28
[2017-01-02] MEDS: D5W-0.45 NACL + KCL 20 MEQ 1,000 ML IV SCH ×2 (14:39→16:53)
[2017-01-02] MEDS: INSULIN GLARGINE [LANtus] 3 ML PEN SC SCH (20:54)
[2017-01-02] MEDS: ATORVASTATIN 40 MG TAB PO SCH (20:54)
[2017-01-03] VITALS (13 sets, daily range): BP systolic 119–148; BP diastolic 55–63; PULSE 95–138; RESP 16–20
[2017-01-03] MEDS: INSULIN ASPART [NOVOLOG] 3 ML PEN SC SCH ×6 (00:53→17:28)
[2017-01-03] MEDS: D5W-0.45 NACL + KCL 20 MEQ 1,000 ML IV SCH ×2 (02:30→10:09)
[2017-01-03] MEDS: LEVETIRACETAM IV 500 MG in DEXTROSE 5% 100 ML IVPB SCH ×2 (08:07→20:17)
[2017-01-03] MEDS: COLLAGENASE 30 GM TUBE TOP SCH (08:08)
[2017-01-03] MEDS: ENOXAPARIN 40 MG/0.4 ML SYG SC SCH (08:13)
--- NOTE | 2017-01-03 17:48 | PN ---
Date/Time of Note Date/Time of Note DATE: 01/03/17 TIME: 17:47 Assessment/Plan VTE Prophylaxis VTE Prophylaxis Intervention: LMWH Lines/Catheters IV C[facility]ter Type (from [facility]): PICC Line Central line still needed: Yes Urinary Cath still in place: Yes Reason Cath still needed: urinary retention Assessment/Plan Assessment/Plan 1. Tonic-clonic seizure. Patient is followed by Dr. Lee in neurology, continue Keppra. 2. Urinary tract infection per UA. Obtain urine culture. Continue cefepime. 3. Schizophrenia and bipolar disorder. 4. Hypertension. Patient is currently normotensive. 5. Diabetes mellitus. Continue Lantus and NovoLog with meals. 6. Dyslipidemia. Continue Crestor. 7. Dysphasia, patient failed swallow eval, reevaluate today, continue IV fluids. Further recommendations based on clinical course. Plan of care discussed with Dr. Aly. Subjective 24 Hr Interval Summary Eyes: no complaints ENT: no complaints Respiratory: no complaints Cardiovascular: no complaints Gastrointestinal: no complaints Exam/Review of Systems Vital Signs Vitals Vital Signs Date Time Temp Pulse Resp B/P Pulse Ox O2 Delivery O2 Flow Rate FiO2 01/03/17 16:26 138 01/03/17 15:59 98.7 19 135/60 98 01/03/17 08:30 Nasal Cannula 3.0 Intake and Output 01/02/17 01/02/17 01/03/17 15:00 23:00 07:00 Intake Total 705 ml Output Total 1400 ml 900 ml Balance -1400 ml -195 ml Exam Constitutional: well developed Psych: nl mood/affect Head: atraumatic Eyes: EOMI ENMT: nl external ears & nose Neck: non-tender Respiratory: clear to auscultation Cardiovascular: nl pulses Gastrointestinal: non-tender, rebound or guarding, soft Musculoskeletal: nl extremities to inspection Extremities: normal pulses Neurological: nl speech, other Skin: other Lymph: nontender Results Result Diagram: 01/02/17 0935 01/02/17 0935 Results 24 hrs Laboratory Tests Test 01/02/17 20:50 01/03/17 00:48 01/03/17 05:37 01/03/17 08:06 Bedside Glucose 86 179 299 H 184 Test 01/03/17 11:50 01/03/17 17:23 Bedside Glucose 126 154 Medications Medications Current Medications Levetiracetam/ Dextrose (Keppra Iv/D5W) 105 ml @ 420 mls/hr Q12 IVPB Last administered on 01/03/17 08:07; Admin Dose 420 MLS/HR; Start 12/29/16 at 09:00 Acetaminophen (Tylenol Supp) 650 mg Q6H PRN [place] ELEVATED TEMPERATURE; Start at 02:30 Insulin Aspart (Novolog Insulin Pen) NOVOLOG *MILD* ALGORI... Q6 SC Last administered on 01/03/17 17:27; Admin Dose 1 UNIT; Start 12/29/16 at 06:00 Enoxaparin Sodium (Lovenox) 40 mg DAILY SC Last administered on 01/03/17 08:13 ; Admin Dose 40 MG; Start 12/29/16 at 09:00 Miscellaneous Information 1 ea NOTE XX ; Start 12/29/16 at 03:00 Glucose (Glutose) 15 gm Q15M PRN PO DECREASED GLUCOSE; Start 12/29/16 at 03:00 Glucose (Glutose) 22.5 gm Q15M PRN PO DECREASED GLUCOSE; Start 12/29/16 at 03: 00 Dextrose (D50w Syringe) 25 ml Q15M PRN IV DECREASED GLUCOSE; Start 12/29/16 at 03:00 Dextrose (D50w Syringe) 50 ml Q15M PRN IV DECREASED GLUCOSE; Start 12/29/16 at 03:00 Glucagon (Glucagen) 1 mg Q15M PRN IM DECREASED GLUCOSE; Start 12/29/16 at 03:00 Glucose (Glutose) 15 gm Q15M PRN BUCCAL DECREASED GLUCOSE; Start 12/29/16 at 03 :00 Atorvastatin Calcium (Lipitor) 40 mg DAILY@21 PO ; Start 12/31/16 at 21:00 Collagenase (Santyl) 1 applic DAILY TOP Last administered on 01/03/17 08:08; Admin Dose 1 APPLIC; Start 01/03/17 at 09:00 Insulin Glargine 16 unit 16 unit QHS SC ; Start 01/03/17 at 21:00; Status UNV Potassium Chloride/Sodium Chloride (12/03 NS + KCl 20 Meq) 1,000 ml @ 50 mls/hr Q20H IV ; Start 01/03/17 at 18:00; Status UNV MICHAEL COLINDRES Jan 03, 2017 17:48
--- NOTE | 2017-01-03 18:30 | CONS ---
Date/Time of Note Date/Time of Note DATE: 01/03/17 TIME: 18:24 Assessment/Plan Assessment/Plan Additional Assessment/Plan Seizure UTI Sinus tachycardia with brief episode of atrial tachycardia Preserved ejection fraction Psychiatric disorder -Patient with history of tachycardia in the past. Review of telemetry with heart rates ranging from 100 to 140s with a brief episode of atrial tachycardia. Patient also with recent seizure as well as UTI. Tachycardia likely multifactorial. I would continue to treat the underlying medical conditions (which is currently being done) of her seizure disorder and UTI. She does have evidence of edema and she might need diuresis in the next one to 2 days. Patient's episode of atrial tachycardia was brief, no need for AV desiree blocking agents at the current time. Consultation Date/Type/Reason Admit Date/Time Dec 28, 2016 at 16:56 Type of Consultation: cv Reason for Consultation Tachycardia Hx of Present Illness This is a 56-year-old female with past medical history of seizure disorder, psychiatric disorder, recent urosepsis who presents back with UTI and breakthrough seizure. Patient admitted for further treatment. Patient found to be tachycardic on telemetry and for this reason cardiology consultation was requested. The patient is known to me from a previous admission for urosepsis with frequent episodes of tachycardia. She is currently somewhat confused and tired but does follow commands and answers basic questions. She denies shortness of breath, palpitations, dizziness or chest pain. She does complain of fatigue and weakness. 12 point review of systems was performed with all pertinent positives and negatives mentioned above and all else is negative Constitutional: improved Eyes: no complaints ENT: no complaints Respiratory: no complaints Cardiovascular: no complaints Gastrointestinal: no complaints Genitourinary: no complaints Musculoskeletal: no complaints Neurologic: no complaints Endocrine: no complaints Lymphatic: no complaints Psychological: nl mood/affect Past Medical History Medical History: hypertension, other (Bipolar disorder, Schizophrenia, seizure disorder) Past Surgical History Past Surgical Hx: no surgical history Family History Significant Family History: no pertinent family hx Social History Alcohol Use: none Smoking Status: Unknown if ever smoked Other Social History From [facility] facility Exam/Review of Systems Vital Signs Vitals Vital Signs Date Time Temp Pulse Resp B/P Pulse Ox O2 Delivery O2 Flow Rate FiO2 01/03/17 16:26 138 01/03/17 15:59 98.7 19 135/60 98 01/03/17 08:30 Nasal Cannula 3.0 Intake and Output 01/02/17 01/02/17 01/03/17 15:00 23:00 07:00 Intake Total 705 ml Output Total 1400 ml 900 ml Balance -1400 ml -195 ml Exam Awake, very slow in her response, follows some commands and answers some basic questions, no apparent distress Head: normocephalic Neck: supple Respiratory: other (course breath sounds bilaterally, no wheezing) Cardiovascular: other (S1-S2 heard), regular rate and rhythm Gastrointestinal: bowel sounds, non-tender, other (no guarding), soft Extremities: edema Results Result Diagram: 01/02/17 0935 01/02/17 0935 Results 24 hrs Laboratory Tests Test 01/02/17 20:50 01/03/17 00:48 01/03/17 05:37 01/03/17 08:06 Bedside Glucose 86 179 299 H 184 Test 01/03/17 11:50 01/03/17 17:23 Bedside Glucose 126 154 Medications Medications Current Medications Levetiracetam/ Dextrose (Keppra Iv/D5W) 105 ml @ 420 mls/hr Q12 IVPB Last administered on 01/03/17 08:07; Admin Dose 420 MLS/HR; Start 12/29/16 at 09:00 Acetaminophen (Tylenol Supp) 650 mg Q6H PRN [place] ELEVATED TEMPERATURE; Start at 02:30 Insulin Aspart (Novolog Insulin Pen) NOVOLOG *MILD* ALGORI... Q6 SC Last administered on 01/03/17 17:27; Admin Dose 1 UNIT; Start 12/29/16 at 06:00 Enoxaparin Sodium (Lovenox) 40 mg DAILY SC Last administered on 01/03/17 08:13 ; Admin Dose 40 MG; Start 12/29/16 at 09:00 Miscellaneous Information 1 ea NOTE XX ; Start 12/29/16 at 03:00 Glucose (Glutose) 15 gm Q15M PRN PO DECREASED GLUCOSE; Start 12/29/16 at 03:00 Glucose (Glutose) 22.5 gm Q15M PRN PO DECREASED GLUCOSE; Start 12/29/16 at 03: 00 Dextrose (D50w Syringe) 25 ml Q15M PRN IV DECREASED GLUCOSE; Start 12/29/16 at 03:00 Dextrose (D50w Syringe) 50 ml Q15M PRN IV DECREASED GLUCOSE; Start 12/29/16 at 03:00 Glucagon (Glucagen) 1 mg Q15M PRN IM DECREASED GLUCOSE; Start 12/29/16 at 03:00 Glucose (Glutose) 15 gm Q15M PRN BUCCAL DECREASED GLUCOSE; Start 12/29/16 at 03 :00 Atorvastatin Calcium (Lipitor) 40 mg DAILY@21 PO ; Start 12/31/16 at 21:00 Collagenase (Santyl) 1 applic DAILY TOP Last administered on 01/03/17t 08:08; Admin Dose 1 APPLIC; Start 01/03/17 at 09:00 Insulin Glargine 16 unit 16 unit QHS SC ; Start 01/03/17 at 21:00 Potassium Chloride/Sodium Chloride (12/03 NS + KCl 20 Meq) 1,000 ml @ 50 mls/hr Q20H IV ; Start 01/03/17 at 20:00 Procedures Procedures ECG done in the emergency demonstrates sinus tachycardia in the 150s, QRS duration, no significant ischemic STT wave abnormalities Telemetry reviewed with heart rate ranging from 100 to 140s, brief episode of atrial tachycardia noted Gamal Coronel DO Jan 03, 2017 18:30
[2017-01-03] MEDS ORDERED: 1/2 NS + KCL 20 MEQ 1,000 ML IV SCH (20:00)
[2017-01-03] MEDS: ATORVASTATIN 40 MG TAB PO SCH (20:18)
[2017-01-03] MEDS: INSULIN GLARGINE [LANtus] 3 ML PEN SC SCH (20:27)
[2017-01-03 22:19] LABS: BASOPHIL # 0.1 10^3/ul (0.0-0.1); BASOPHILS % 0.5 % (0.0-2.0); EOSINOPHILS % 0.1 % (0.0-7.0); HEMATOCRIT 32.4 % (37.0-47.0); HEMOGLOBIN 10.8 g/dl (12.0-16.0); LYMPHOCYTES # 2.1 10^3/ul (0.8-2.9); LYMPHOCYTES % 16.1 % (15.0-51.0); MEAN CORPUSCULAR HEMOGLOBIN 32.8 pg (29.0-33.0); MEAN CORPUSCULAR HGB CONC 33.4 g/dl (32.0-37.0); MEAN CORPUSCULAR VOLUME 98.3 fl (82.0-101.0); MEAN PLATELET VOLUME 8.6 fl (7.4-10.4); MONOCYTE # 0.9 10^3/ul (0.3-0.9); MONOCYTES % 7.4 % (0.0-11.0); NEUTROPHIL # 9.8 10^3/ul (1.6-7.5); NEUTROPHILS % 75.9 % (39.0-77.0); PLATELET COUNT 566 10^3/UL (140-440); RED CELL DISTRIBUTION WIDTH 14.9 % (11.5-14.5); UNCORRECTED WBC 12.9 10^3/ul (4.8-10.8); WHITE BLOOD COUNT 12.9 10^3/ul (4.8-10.8)
[2017-01-03 22:21] LABS: CONDITION 1; LH ANALYZER COMMENTS 1
[2017-01-04] VITALS (12 sets, daily range): BP systolic 117–143; BP diastolic 55–70; PULSE 92–139; RESP 15–20
[2017-01-04] MEDS: INSULIN ASPART [NOVOLOG] 3 ML PEN SC SCH ×6 (00:30→21:41)
[2017-01-04] MEDS: DEXTROSE 50% 50 ML SYRINGE IV PRN (06:14)
[2017-01-04 06:44] LABS: POTASSIUM 4.1 mmol/L (3.5-5.1)
[2017-01-04 06:46] LABS: CREATININE 0.47 mg/dl (0.44-1.00)
[2017-01-04 06:47] LABS: CALCIUM 8.5 mg/dl (8.4-10.2)
[2017-01-04] MEDS: D5W-0.45 NACL + KCL 20 MEQ 1,000 ML IV SCH (08:35)
[2017-01-04] MEDS: LEVETIRACETAM IV 500 MG in DEXTROSE 5% 100 ML IVPB SCH ×2 (08:36→21:38)
[2017-01-04] MEDS: COLLAGENASE 30 GM TUBE TOP SCH (08:37)
[2017-01-04] MEDS: ENOXAPARIN 40 MG/0.4 ML SYG SC SCH (08:44)
--- NOTE | 2017-01-04 12:28 | CONS ---
Date/Time of Note Date/Time of Note DATE: 01/04/17 TIME: 12:20 Assessment/Plan Assessment/Plan Additional Assessment/Plan Seizure UTI Hypoglycemia Sinus tachycardia with brief episode of atrial tachycardia Preserved ejection fraction Psychiatric disorder -On tele reviewed, patient still with episodes of sinus tachycardia but no further episodes of atrial tachycardia seen. As mentioned previously, this is likely secondary to underlying medical conditions including UTI, hypoglycemia, seizure. Would continue telemetry monitoring at the current time. Consultation Date/Type/Reason Admit Date/Time Dec 28, 2016 at 16:56 Initial Consult Date 12/30/16 Type of Consultation: cv Referring Provider: LUZMA HYMAN MD 24 HR Interval Summary Free Text/Dictation Patient more awake today, denies chest pain, palpitations or shortness of breath Exam/Review of Systems Vital Signs Vitals Vital Signs Date Time Temp Pulse Resp B/P Pulse Ox O2 Delivery O2 Flow Rate FiO2 01/04/17 11:00 97.5 118 20 140/66 98 01/04/17 08:15 Nasal Cannula 3.0 Intake and Output 01/03/17 01/03/17 01/04/17 15:00 23:00 07:00 Intake Total 330 ml 300 ml Output Total 350 ml 900 ml Balance -20 ml -600 ml Exam Following commands, undergoing swallowing evaluation Constitutional: alert Head: normocephalic Respiratory: other (course breath sounds bilaterally, no wheezing) Cardiovascular: other (S1 and S2 heard), regular rate and rhythm (tachycardic) Gastrointestinal: bowel sounds, non-tender, soft Extremities: edema Results Result Diagram: 01/03/17 1935 01/04/17 0545 Results 24 hrs Laboratory Tests Test 01/03/17 17:23 01/03/17 19:35 01/03/17 20:20 01/04/17 00:43 Bedside Glucose 154 140 72 Basophils # 0.1 Basophils % 0.5 Blood Morphology Comment Eosinophils # 0.0 Eosinophils % 0.1 Hematocrit 32.4 L Hemoglobin 10.8 L Lymphocytes # 2.1 Lymphocytes % 16.1 Mean Corpuscular Hemoglobin 32.8 Mean Corpuscular Hemoglobin Concent 33.4 Mean Corpuscular Volume 98.3 Mean Platelet Volume 8.6 Monocytes # 0.9 Monocytes % 7.4 Neutrophils # 9.8 H Neutrophils % 75.9 Nucleated Red Blood Cells # 0.0 Nucleated Red Blood Cells % 0.0 Platelet Count 566 H Red Blood Count 3.30 L Red Cell Distribution Width 14.9 H White Blood Count 12.9 #H Test 01/04/17 05:45 01/04/17 06:09 01/04/17 06:31 01/04/17 08:33 Anion Gap 12 Blood Urea Nitrogen 5 L Calcium Level 8.5 Carbon Dioxide Level 25 Chloride Level 104 Creatinine 0.47 Glucose Level 38 #*L Potassium Level 4.1 Sodium Level 137 Bedside Glucose 56 L 164 95 Test 01/04/17 12:08 Bedside Glucose 99 Medications Medications Current Medications Levetiracetam/ Dextrose (Keppra Iv/D5W) 105 ml @ 420 mls/hr Q12 IVPB Last administered on 01/04/17 08:36; Admin Dose 420 MLS/HR; Start 12/29/16 at 09:00 Acetaminophen (Tylenol Supp) 650 mg Q6H PRN [place] ELEVATED TEMPERATURE; Start at 02:30 Insulin Aspart (Novolog Insulin Pen) NOVOLOG *MILD* ALGORI... Q6 SC Last administered on 01/03/17 17:27; Admin Dose 1 UNIT; Start 12/29/16 at 06:00 Enoxaparin Sodium (Lovenox) 40 mg DAILY SC Last administered on 01/04/17 08:44 ; Admin Dose 40 MG; Start 12/29/16 at 09:00 Miscellaneous Information 1 ea NOTE XX ; Start 12/29/16 at 03:00 Glucose (Glutose) 15 gm Q15M PRN PO DECREASED GLUCOSE; Start 12/29/16 at 03:00 Glucose (Glutose) 22.5 gm Q15M PRN PO DECREASED GLUCOSE; Start 12/29/16 at 03: 00 Dextrose (D50w Syringe) 25 ml Q15M PRN IV DECREASED GLUCOSE Last administered on 01/04/17 06:14; Admin Dose 25 ML; Start 12/29/16 at 03:00 Dextrose (D50w Syringe) 50 ml Q15M PRN IV DECREASED GLUCOSE; Start 12/29/16 at 03:00 Glucagon (Glucagen) 1 mg Q15M PRN IM DECREASED GLUCOSE; Start 12/29/16 at 03:00 Glucose (Glutose) 15 gm Q15M PRN BUCCAL DECREASED GLUCOSE; Start 12/29/16 at 03 :00 Atorvastatin Calcium (Lipitor) 40 mg DAILY@21 PO ; Start 12/31/16 at 21:00 Collagenase (Santyl) 1 applic DAILY TOP Last administered on 01/04/17 08:37; Admin Dose 1 APPLIC; Start 01/03/17 at 09:00 Insulin Glargine 16 unit 16 unit QHS SC Last administered on 01/03/17 20:27; Admin Dose 16 UNIT; Start 01/03/17 at 21:00 Potassium Chloride/Dextrose/ Sod Cl (D5-1/2ns + KCl 20 Meq) 1,000 ml @ 50 mls/ hr Q20H IV Last administered on 01/04/17 08:35; Admin Dose 50 MLS/HR; Start 01/04/17 at 08:00 Gamal Coronel DO Jan 04, 2017 12:28
--- NOTE | 2017-01-04 18:11 | PN ---
Date/Time of Note Date/Time of Note DATE: 01/04/17 TIME: 18:09 Assessment/Plan VTE Prophylaxis VTE Prophylaxis Intervention: SCD's Lines/Catheters IV Catheter Type (from Nrs): PICC Line Central line still needed: Yes Urinary Cath still in place: Yes Reason Cath still needed: urinary retention Assessment/Plan Chief Complaint/Hosp Course Assessment and plan: 1. Tonic-clonic seizure. Patient is followed by Dr. Lee in neurology, continue Keppra. 2. Urinary tract infection per UA. Obtain urine culture. Continue cefepime. 3. Schizophrenia and bipolar disorder. 4. Hypertension. Patient is currently normotensive. 5. Diabetes mellitus. Continue Lantus and NovoLog with meals. 6. Dyslipidemia. Continue Crestor. 7. Dysphasia, patient failed swallow eval, continue IV fluids. Further recommendations based on clinical course. Plan of care discussed with Dr. Aly. Problems: Subjective 24 Hr Interval Summary Free Text/Dictation Patient failed swallow evaluation, continue IV fluids, patient with leukocytosis today and low-grade fever yesterday, will obtain to chest x-ray, panculture. Exam/Review of Systems Vital Signs Vitals Vital Signs Date Time Temp Pulse Resp B/P Pulse Ox O2 Delivery O2 Flow Rate FiO2 01/04/17 16:11 118 01/04/17 16:00 98.4 18 128/70 100 Nasal Cannula 3.0 Intake and Output 01/03/17 01/03/17 01/04/17 15:00 23:00 07:00 Intake Total 330 ml 300 ml Output Total 350 ml 900 ml Balance -20 ml -600 ml Exam GENERAL: Awake alert HEENT: Atraumatic, normocephalic. NECK: Supple. No masses or thyromegaly. CHEST: Lung sounds clear bilaterally CARDIOVASCULAR: Regular rate and rhythm. S1, S2 normal. No murmur, gallop, or rub. ABDOMEN: Soft, nondistended, nontender. Bowel sounds plus. EXTREMITIES: No leg edema. NEUROLOGIC: Awake alert and oriented to name and situation. SKIN: Without acute rash. No clubbing or cyanosis. Results Result Diagram: 01/03/17 19301/04/17 0545 Results 24 hrs Laboratory Tests Test 01/03/17 19:35 01/03/17 20:20 01/04/17 00:43 01/04/17 05:45 Basophils # 0.1 Basophils % 0.5 Blood Morphology Comment Eosinophils # 0.0 Eosinophils % 0.1 Hematocrit 32.4 L Hemoglobin 10.8 L Lymphocytes # 2.1 Lymphocytes % 16.1 Mean Corpuscular Hemoglobin 32.8 Mean Corpuscular Hemoglobin Concent 33.4 Mean Corpuscular Volume 98.3 Mean Platelet Volume 8.6 Monocytes # 0.9 Monocytes % 7.4 Neutrophils # 9.8 H Neutrophils % 75.9 Nucleated Red Blood Cells # 0.0 Nucleated Red Blood Cells % 0.0 Platelet Count 566 H Red Blood Count 3.30 L Red Cell Distribution Width 14.9 H White Blood Count 12.9 #H Bedside Glucose 140 72 Anion Gap 12 Blood Urea Nitrogen 5 L Calcium Level 8.5 Carbon Dioxide Level 25 Chloride Level 104 Creatinine 0.47 Glucose Level 38 #*L Potassium Level 4.1 Sodium Level 137 Test 01/04/17 06:09 01/04/17 06:31 01/04/17 08:33 01/04/17 12:08 Bedside Glucose 56 L 164 95 99 Test 01/04/17 17:21 Bedside Glucose 189 Medications Medications Current Medications Levetiracetam/ Dextrose (Keppra Iv/D5W) 105 ml @ 420 mls/hr Q12 IVPB Last administered on 01/04/17 08:36; Admin Dose 420 MLS/HR; Start 12/29/16 at 09:00 Acetaminophen (Tylenol Supp) 650 mg Q6H PRN [place] ELEVATED TEMPERATURE; Start at 02:30 Enoxaparin Sodium (Lovenox) 40 mg DAILY SC Last administered on 01/04/17 08:44 ; Admin Dose 40 MG; Start 12/29/16 at 09:00 Miscellaneous Information 1 ea NOTE XX ; Start 12/29/16 at 03:00 Glucose (Glutose) 15 gm Q15M PRN PO DECREASED GLUCOSE; Start 12/29/16 at 03:00 Glucose (Glutose) 22.5 gm Q15M PRN PO DECREASED GLUCOSE; Start 12/29/16 at 03: 00 Dextrose (D50w Syringe) 25 ml Q15M PRN IV DECREASED GLUCOSE Last administered on 01/04/17 06:14; Admin Dose 25 ML; Start 12/29/16 at 03:00 Dextrose (D50w Syringe) 50 ml Q15M PRN IV DECREASED GLUCOSE; Start 12/29/16 at 03:00 Glucagon (Glucagen) 1 mg Q15M PRN IM DECREASED GLUCOSE; Start 12/29/16 at 03:00 Glucose (Glutose) 15 gm Q15M PRN BUCCAL DECREASED GLUCOSE; Start 12/29/16 at 03 :00 Atorvastatin Calcium (Lipitor) 40 mg DAILY@21 PO ; Start 12/31/16 at 21:00 Collagenase (Santyl) 1 applic DAILY TOP Last administered on 01/04/17 08:37; Admin Dose 1 APPLIC; Start 01/03/17 at 09:00 Insulin Glargine 16 unit 16 unit QHS SC Last administered on 01/03/17 20:27; Admin Dose 16 UNIT; Start 01/03/17 at 21:00 Potassium Chloride/Dextrose/ Sod Cl (D5-1/2ns + KCl 20 Meq) 1,000 ml @ 50 mls/ hr Q20H IV Last administered on 01/04/17 08:35; Admin Dose 50 MLS/HR; Start 01/04/17 at 08:00 Insulin Aspart (Novolog Insulin Pen) NOVOLOG *MILD* ALGORI... Q4 SC Last administered on 01/04/17 17:33; Admin Dose 2 UNIT; Start 01/04/17 at 13:00 Morphine Sulfate (morphine) 1 mg Q4H PRN IV PAIN LEVEL 7-10; Start 01/04/17 at 18:00 DENA SALGUERO Jan 04, 2017 18:10
--- NOTE | 2017-01-04 19:14 | RADRPT ---
PROCEDURE: XR Chest. CLINICAL INDICATION: Evaluate for pneumonia. Sepsis. TECHNIQUE: Single frontal view of the chest was obtained COMPARISON: Chest x-ray December 11, 2016. FINDINGS: A PICC line catheter enters the right arm with its tip in the superior vena cava. There is a subopt imal inspiratory effort with plate-like atelectasis and compressive atelectasis in the left lower lo be. The heart less aorta trachea pulmonary vasculature and pleural spaces are normal. The bony gerson ments are normal. IMPRESSION: 1. There are plate-like densities in the left lower lobe which are likely the result of compressive and plate-like atelectasis. A consolidative left lower lobe infiltrate is not excluded. 2. A PICC line catheter is well positioned in the superior vena cava. RPTAT:AAJJ Physician Luba Date Time Electronically viewed and signed by Ino [place] Physician on 01/04/2017 19:14 PARKER/
[2017-01-04] MEDS: ATORVASTATIN 40 MG TAB PO SCH (21:00)
[2017-01-04] MEDS: INSULIN GLARGINE [LANtus] 3 ML PEN SC SCH (21:42)
[2017-01-05] VITALS (12 sets, daily range): BP systolic 119–142; BP diastolic 56–66; PULSE 94–115; RESP 16–20
[2017-01-05] MEDS: INSULIN ASPART [NOVOLOG] 3 ML PEN SC SCH ×6 (02:09→21:00)
[2017-01-05] MEDS: D5W-0.45 NACL + KCL 20 MEQ 1,000 ML IV SCH (06:37)
[2017-01-05] MEDS: ENOXAPARIN 40 MG/0.4 ML SYG SC SCH (08:33)
[2017-01-05] MEDS: COLLAGENASE 30 GM TUBE TOP SCH (08:34)
[2017-01-05 08:50] LABS: POTASSIUM 3.7 mmol/L (3.5-5.1)
[2017-01-05 08:53] LABS: CREATININE 0.39 mg/dl (0.44-1.00)
[2017-01-05 08:54] LABS: CALCIUM 8.1 mg/dl (8.4-10.2)
[2017-01-05] MEDS: LEVETIRACETAM IV 500 MG in DEXTROSE 5% 100 ML IVPB SCH ×2 (09:07→21:47)
[2017-01-05 09:40] LABS: HEMATOCRIT 29.7 % (37.0-47.0); MEAN CORPUSCULAR VOLUME 96.7 fl (82.0-101.0); RED BLOOD COUNT 3.07 10^6/ul (4.20-5.40); UNCORRECTED WBC 8.9 10^3/ul (4.8-10.8); WHITE BLOOD COUNT 8.9 10^3/ul (4.8-10.8)
[2017-01-05 09:41] LABS: BASOPHIL # 0.4 10^3/ul (0.0-0.1); BASOPHILS % 0.4 % (0.0-2.0); EOSINOPHILS # 0.1 10^3/ul (0.0-0.5); EOSINOPHILS % 0.7 % (0.0-7.0); LYMPHOCYTES # 2.4 10^3/ul (0.8-2.9); LYMPHOCYTES % 27.3 % (15.0-51.0); MEAN CORPUSCULAR HEMOGLOBIN 32.6 pg (29.0-33.0); MEAN CORPUSCULAR HGB CONC 33.7 g/dl (32.0-37.0); MEAN PLATELET VOLUME 10.2 fl (7.4-10.4); MONOCYTE # 0.7 10^3/ul (0.3-0.9); MONOCYTES % 7.7 % (0.0-11.0); NEUTROPHIL # 5.6 10^3/ul (1.6-7.5); NEUTROPHILS % 62.9 % (39.0-77.0); PLATELET COUNT 510 10^3/UL (140-440); RED CELL DISTRIBUTION WIDTH 13.7 % (11.5-14.5)
--- NOTE | 2017-01-05 12:36 | PN ---
Date/Time of Note Date/Time of Note DATE: 01/05/17 TIME: 12:35 Assessment/Plan VTE Prophylaxis VTE Prophylaxis Intervention: other Lines/Catheters IV Catheter Type (from Nrs): PICC Line Central line still needed: Yes Urinary Cath still in place: Yes Reason Cath still needed: skin wounds contaminated by urine Assessment/Plan Chief Complaint/Hosp Course 1. Tonic-clonic seizure. Patient is followed by Dr. Lee in neurology, continue Keppra. 2. Urinary tract infection per UA. Obtain urine culture. Continue cefepime. 3. Schizophrenia and bipolar disorder. 4. Hypertension. Patient is currently normotensive. 5. Diabetes mellitus. Continue Lantus and NovoLog with meals. 6. Dyslipidemia. Continue Crestor. 7. Dysphasia, patient failed swallow eval, continue IV fluids. Problems: Subjective 24 Hr Interval Summary Free Text/Dictation Patient resting comfortably, has no complaints Exam/Review of Systems Vital Signs Vitals Vital Signs Date Time Temp Pulse Resp B/P Pulse Ox O2 Delivery O2 Flow Rate FiO2 01/05/17 12:07 107 01/05/17 11:00 98.5 19 120/58 100 01/05/17 04:00 Nasal Cannula 3.0 Intake and Output 01/04/17 01/04/17 01/05/17 15:00 23:00 07:00 Intake Total 330 ml 350 ml Output Total 600 ml Balance 330 ml -250 ml Exam Constitutional: well developed Head: atraumatic, normocephalic Neck: supple Respiratory: diminished breath sounds Cardiovascular: regular rate and rhythm Gastrointestinal: non-tender, soft Results Result Diagram: 01/05/17 0725 01/05/17 0725 Results 24 hrs Laboratory Tests Test 01/04/17 17:21 01/04/17 21:32 01/05/17 02:01 01/05/17 05:18 Bedside Glucose 189 173 111 96 Test 01/05/17 07:25 01/05/17 07:59 Anion Gap 14 Basophils # 0.4 H Basophils % 0.4 Blood Urea Nitrogen 7 Calcium Level 8.1 L Carbon Dioxide Level 27 Chloride Level 102 Creatinine 0.39 L Eosinophils # 0.1 Eosinophils % 0.7 Glucose Level 97 # Hematocrit 29.7 L Hemoglobin 10.0 L Lymphocytes # 2.4 Lymphocytes % 27.3 Mean Corpuscular Hemoglobin 32.6 Mean Corpuscular Hemoglobin Concent 33.7 Mean Corpuscular Volume 96.7 Mean Platelet Volume 10.2 Monocytes # 0.7 Monocytes % 7.7 Neutrophils # 5.6 Neutrophils % 62.9 Nucleated Red Blood Cells # 0.0 Nucleated Red Blood Cells % 0.0 Platelet Count 510 H Potassium Level 3.7 Red Blood Count 3.07 L Red Cell Distribution Width 13.7 Sodium Level 139 White Blood Count 8.9 # Bedside Glucose 92 Medications Medications Current Medications Levetiracetam/ Dextrose (Keppra Iv/D5W) 105 ml @ 420 mls/hr Q12 IVPB Last administered on 01/05/17 09:07; Admin Dose 420 MLS/HR; Start 12/29/16 at 09:00 Acetaminophen (Tylenol Supp) 650 mg Q6H PRN [place] ELEVATED TEMPERATURE; Start at 02:30 Enoxaparin Sodium (Lovenox) 40 mg DAILY SC Last administered on 01/05/17 08:33 ; Admin Dose 40 MG; Start 12/29/16 at 09:00 Miscellaneous Information 1 ea NOTE XX ; Start 12/29/16 at 03:00 Glucose (Glutose) 15 gm Q15M PRN PO DECREASED GLUCOSE; Start 12/29/16 at 03:00 Glucose (Glutose) 22.5 gm Q15M PRN PO DECREASED GLUCOSE; Start 12/29/16 at 03: 00 Dextrose (D50w Syringe) 25 ml Q15M PRN IV DECREASED GLUCOSE Last administered on 01/04/17 06:14; Admin Dose 25 ML; Start 12/29/16 at 03:00 Dextrose (D50w Syringe) 50 ml Q15M PRN IV DECREASED GLUCOSE; Start 12/29/16 at 03:00 Glucagon (Glucagen) 1 mg Q15M PRN IM DECREASED GLUCOSE; Start 12/29/16 at 03:00 Glucose (Glutose) 15 gm Q15M PRN BUCCAL DECREASED GLUCOSE; Start 12/29/16 at 03 :00 Atorvastatin Calcium (Lipitor) 40 mg DAILY@21 PO ; Start 12/31/16 at 21:00 Collagenase (Santyl) 1 applic DAILY TOP Last administered on 01/05/17 08:34; Admin Dose 1 APPLIC; Start 01/03/17 at 09:00 Insulin Glargine 16 unit 16 unit QHS SC Last administered on 01/04/17 21:42; Admin Dose 16 UNIT; Start 01/03/17 at 21:00 Potassium Chloride/Dextrose/ Sod Cl (D5-1/2ns + KCl 20 Meq) 1,000 ml @ 50 mls/ hr Q20H IV Last administered on 01/05/17 06:37; Admin Dose 50 MLS/HR; Start 01/04/17 at 08:00 Insulin Aspart (Novolog Insulin Pen) NOVOLOG *MILD* ALGORI... Q4 SC Last administered on 01/04/17 21:41; Admin Dose 1 UNIT; Start 01/04/17 at 13:00 Morphine Sulfate (morphine) 1 mg Q4H PRN IV PAIN LEVEL 7-10; Start 01/04/17 at 18:00 VIVIENNE MONTILLA Jan 05, 2017 12:36
[2017-01-05] MEDS: ATORVASTATIN 40 MG TAB PO SCH (21:00)
[2017-01-05] MEDS: INSULIN GLARGINE [LANtus] 3 ML PEN SC SCH (21:55)
[2017-01-06] VITALS (11 sets, daily range): BP systolic 113–170; BP diastolic 54–74; PULSE 73–142; RESP 16–20
[2017-01-06] MEDS: INSULIN ASPART [NOVOLOG] 3 ML PEN SC SCH ×6 (01:00→20:51)
[2017-01-06] MEDS: D5W-0.45 NACL + KCL 20 MEQ 1,000 ML IV SCH ×2 (01:17→20:06)
[2017-01-06] MEDS: morphine 2 MG INJ IV PRN (05:44)
[2017-01-06] MEDS: COLLAGENASE 30 GM TUBE TOP SCH (08:13)
[2017-01-06] MEDS: ENOXAPARIN 40 MG/0.4 ML SYG SC SCH (08:15)
[2017-01-06] MEDS: LEVETIRACETAM IV 500 MG in DEXTROSE 5% 100 ML IVPB SCH ×2 (08:17→20:49)
--- NOTE | 2017-01-06 11:55 | PN ---
Date/Time of Note Date/Time of Note DATE: 01/06/17 TIME: 11:54 Assessment/Plan VTE Prophylaxis VTE Prophylaxis Intervention: other Lines/Catheters IV Catheter Type (from Nrs): PICC Line Central line still needed: Yes Urinary Cath still in place: Yes Reason Cath still needed: skin wounds contaminated by urine Assessment/Plan Chief Complaint/Hosp Course 1. Tonic-clonic seizure. Patient is followed by Dr. Lee in neurology, continue Keppra. 2. Urinary tract infection per UA. Obtain urine culture. Continue cefepime. 3. Schizophrenia and bipolar disorder. 4. Hypertension. Patient is currently normotensive. 5. Diabetes mellitus. Continue Lantus and NovoLog with meals. 6. Dyslipidemia. Continue Crestor. 7. Dysphasia, patient failed swallow eval, continue IV fluids. Problems: Subjective 24 Hr Interval Summary Free Text/Dictation Patient has no complaints Exam/Review of Systems Vital Signs Vitals Vital Signs Date Time Temp Pulse Resp B/P Pulse Ox O2 Delivery O2 Flow Rate FiO2 01/06/17 08:13 142 01/06/17 08:00 99.0 20 148/65 99 01/06/17 07:30 Nasal Cannula 3.0 Intake and Output 01/05/17 01/05/17 01/06/17 15:00 23:00 07:00 Intake Total 105 ml 500 ml Output Total 1100 ml Balance 105 ml -600 ml Exam Constitutional: well developed Head: atraumatic, normocephalic Neck: supple Respiratory: diminished breath sounds Cardiovascular: regular rate and rhythm Gastrointestinal: non-tender, soft Extremities: normal pulses Results Result Diagram: 01/05/17 0725 01/05/17 0725 Results 24 hrs Laboratory Tests Test 01/05/17 12:40 01/05/17 17:58 01/05/17 21:50 01/06/17 01:15 Bedside Glucose 78 92 120 102 Test 01/06/17 05:49 01/06/17 06:17 01/06/17 08:12 Bedside Glucose 49 *L 198 142 Medications Medications Current Medications Levetiracetam/ Dextrose (Keppra Iv/D5W) 105 ml @ 420 mls/hr Q12 IVPB Last administered on 01/06/17t 08:17; Admin Dose 420 MLS/HR; Start 12/29/16 at 09:00 Acetaminophen (Tylenol Supp) 650 mg Q6H PRN [place] ELEVATED TEMPERATURE; Start at 02:30 Enoxaparin Sodium (Lovenox) 40 mg DAILY SC Last administered on 01/06/17 08:15 ; Admin Dose 40 MG; Start 12/29/16 at 09:00 Miscellaneous Information 1 ea NOTE XX ; Start 12/29/16 at 03:00 Glucose (Glutose) 15 gm Q15M PRN PO DECREASED GLUCOSE; Start 12/29/16 at 03:00 Glucose (Glutose) 22.5 gm Q15M PRN PO DECREASED GLUCOSE; Start 12/29/16 at 03: 00 Dextrose (D50w Syringe) 25 ml Q15M PRN IV DECREASED GLUCOSE Last administered on 01/04/17 06:14; Admin Dose 25 ML; Start 12/29/16 at 03:00 Dextrose (D50w Syringe) 50 ml Q15M PRN IV DECREASED GLUCOSE Last administered on 01/06/17 05:56; Admin Dose 50 ML; Start 12/29/16 at 03:00 Glucagon (Glucagen) 1 mg Q15M PRN IM DECREASED GLUCOSE; Start 12/29/16 at 03:00 Glucose (Glutose) 15 gm Q15M PRN BUCCAL DECREASED GLUCOSE; Start 12/29/16 at 03 :00 Atorvastatin Calcium (Lipitor) 40 mg DAILY@21 PO ; Start 12/31/16 at 21:00 Collagenase (Santyl) 1 applic DAILY TOP Last administered on 01/06/17 08:13; Admin Dose 1 APPLIC; Start 01/03/17 at 09:00 Insulin Glargine 16 unit 16 unit QHS SC Last administered on 01/05/17 21:55; Admin Dose 16 UNIT; Start 01/03/17 at 21:00 Potassium Chloride/Dextrose/ Sod Cl (D5-1/2ns + KCl 20 Meq) 1,000 ml @ 50 mls/ hr Q20H IV Last administered on 01/06/17 01:17; Admin Dose 50 MLS/HR; Start 01/04/17 at 08:00 Insulin Aspart (Novolog Insulin Pen) NOVOLOG *MILD* ALGORI... Q4 SC Last administered on 01/04/17 21:41; Admin Dose 1 UNIT; Start 01/04/17 at 13:00 Morphine Sulfate (morphine) 1 mg Q4H PRN IV PAIN LEVEL 7-10 Last administered on 01/06/17t 05:44; Admin Dose 1 MG; Start 01/04/17 at 18:00 VIVIENNE MONTILLA Jan 06, 2017 11:54
--- NOTE | 2017-01-06 19:47 | CONS ---
Date/Time of Note Date/Time of Note DATE: 01/06/17 TIME: 19:45 Assessment/Plan Assessment/Plan Additional Assessment/Plan Seizure UTI Hypoglycemia Sinus tachycardia with brief episode of atrial tachycardia Preserved ejection fraction Psychiatric disorde -Patient with intermittent episodes of sinus tachycardia, no significant arrhythmias noted on telemetry. No new cardiac orders at the current time. Consultation Date/Type/Reason Admit Date/Time Dec 28, 2016 at 16:56 Initial Consult Date 12/30/16 Type of Consultation: cv Referring Provider: LUZMA HYMAN MD 24 HR Interval Summary Free Text/Dictation Patient denies chest pain or palpitations Exam/Review of Systems Vital Signs Vitals Vital Signs Date Time Temp Pulse Resp B/P Pulse Ox O2 Delivery O2 Flow Rate FiO2 01/06/17 16:25 99.0 116 20 121/63 99 01/06/17 07:30 Nasal Cannula 3.0 Intake and Output 01/05/17 01/05/17 01/06/17 15:00 23:00 07:00 Intake Total 105 ml 500 ml Output Total 1100 ml Balance 105 ml -600 ml Exam Follows some commands, moaning throughout history taking and exam Constitutional: alert Head: normocephalic Respiratory: other (course breath sounds bilaterally, no wheezing) Cardiovascular: other (S1 and S2 heard), regular rate and rhythm Gastrointestinal: bowel sounds, non-tender, soft Extremities: edema (trace) Results Result Diagram: 01/05/17 0725 01/05/17 0725 Results 24 hrs Laboratory Tests Test 01/05/17 21:50 01/06/17 01:15 01/06/17 05:49 01/06/17 06:17 Bedside Glucose 120 102 49 *L 198 Test 01/06/17 08:12 01/06/17 14:42 01/06/17 17:15 Bedside Glucose 142 94 98 Medications Medications Current Medications Levetiracetam/ Dextrose (Keppra Iv/D5W) 105 ml @ 420 mls/hr Q12 IVPB Last administered on 01/06/17t 08:17; Admin Dose 420 MLS/HR; Start 12/29/16 at 09:00 Acetaminophen (Tylenol Supp) 650 mg Q6H PRN [place] ELEVATED TEMPERATURE; Start at 02:30 Enoxaparin Sodium (Lovenox) 40 mg DAILY SC Last administered on 01/06/17 08:15 ; Admin Dose 40 MG; Start 12/29/16 at 09:00 Miscellaneous Information 1 ea NOTE XX ; Start 12/29/16 at 03:00 Glucose (Glutose) 15 gm Q15M PRN PO DECREASED GLUCOSE; Start 12/29/16 at 03:00 Glucose (Glutose) 22.5 gm Q15M PRN PO DECREASED GLUCOSE; Start 12/29/16 at 03: 00 Dextrose (D50w Syringe) 25 ml Q15M PRN IV DECREASED GLUCOSE Last administered on 01/04/17 06:14; Admin Dose 25 ML; Start 12/29/16 at 03:00 Dextrose (D50w Syringe) 50 ml Q15M PRN IV DECREASED GLUCOSE Last administered on 01/06/17 05:56; Admin Dose 50 ML; Start 12/29/16 at 03:00 Glucagon (Glucagen) 1 mg Q15M PRN IM DECREASED GLUCOSE; Start 12/29/16 at 03:00 Glucose (Glutose) 15 gm Q15M PRN BUCCAL DECREASED GLUCOSE; Start 12/29/16 at 03 :00 Atorvastatin Calcium (Lipitor) 40 mg DAILY@21 PO ; Start 12/31/16 at 21:00 Collagenase (Santyl) 1 applic DAILY TOP Last administered on 01/06/17 08:13; Admin Dose 1 APPLIC; Start 01/03/17 at 09:00 Insulin Glargine 16 unit 16 unit QHS SC Last administered on 01/05/17 21:55; Admin Dose 16 UNIT; Start 01/03/17 at 21:00 Potassium Chloride/Dextrose/ Sod Cl (D5-1/2ns + KCl 20 Meq) 1,000 ml @ 50 mls/ hr Q20H IV Last administered on 01/06/17 01:17; Admin Dose 50 MLS/HR; Start 01/04/17 at 08:00 Insulin Aspart (Novolog Insulin Pen) NOVOLOG *MILD* ALGORI... Q4 SC Last administered on 01/04/17 21:41; Admin Dose 1 UNIT; Start 01/04/17 at 13:00 Morphine Sulfate (morphine) 1 mg Q4H PRN IV PAIN LEVEL 7-10 Last administered on 01/06/17 05:44; Admin Dose 1 MG; Start 2/3/17 at 18:00 Gamal Coronel DO Jan 06, 2017 19:47
[2017-01-06] MEDS: ATORVASTATIN 40 MG TAB PO SCH (20:49)
[2017-01-06] MEDS: INSULIN GLARGINE [LANtus] 3 ML PEN SC SCH (20:51)
[2017-01-06] MEDS ORDERED: ENALAPRILAT 1.25 MG INJ IV PRN (23:30)
[2017-01-07] VITALS (12 sets, daily range): BP systolic 128–167; BP diastolic 58–89; PULSE 107–140; RESP 16–22
[2017-01-07] MEDS: INSULIN ASPART [NOVOLOG] 3 ML PEN SC SCH ×6 (01:13→21:09)
[2017-01-07] MEDS: ENOXAPARIN 40 MG/0.4 ML SYG SC SCH (08:28)
[2017-01-07] MEDS: LEVETIRACETAM IV 500 MG in DEXTROSE 5% 100 ML IVPB SCH ×2 (08:29→21:07)
[2017-01-07] MEDS: COLLAGENASE 30 GM TUBE TOP SCH (08:33)
[2017-01-07] MEDS: D5W-0.45 NACL + KCL 20 MEQ 1,000 ML IV SCH (15:41)
--- NOTE | 2017-01-07 17:01 | CONS ---
Date/Time of Note Date/Time of Note DATE: 01/07/17 TIME: 16:58 Assessment/Plan Assessment/Plan Additional Assessment/Plan Seizure UTI Hypoglycemia Sinus tachycardia with episodes of atrial tachycardia Preserved ejection fraction Psychiatric disorder -Patient with more frequent episodes of atrial tachycardia. In discussion with speech therapy, undergoing evaluation for taking by mouth. Patient remains asymptomatic. Would start by mouth Cardizem once able to take by speech therapy. Consultation Date/Type/Reason Admit Date/Time Dec 28, 2016 at 16:56 Initial Consult Date 12/30/16 Type of Consultation: cv Referring Provider: LUZMA HYMAN MD 24 HR Interval Summary Free Text/Dictation Patient seen and examined, still with episodes of confusion Exam/Review of Systems Vital Signs Vitals Vital Signs Date Time Temp Pulse Resp B/P Pulse Ox O2 Delivery O2 Flow Rate FiO2 01/07/17 16:44 129 01/07/17 15:27 98.9 20 141/67 97 01/07/17 09:10 3.0 01/07/17 08:00 Nasal Cannula Intake and Output 01/06/17 01/06/17 01/07/17 15:00 23:00 07:00 Intake Total 250 ml 300 ml Output Total 900 ml Balance 250 ml -600 ml Exam Awake, occasionally following commands, no apparent distress Head: normocephalic Respiratory: other (course breath sounds bilaterally, no wheezing) Cardiovascular: other (S1-S2 heard), regular rate and rhythm Gastrointestinal: bowel sounds, non-tender, soft Extremities: other (no edema) Results Result Diagram: 01/05/17 0725 01/05/17 0725 Results 24 hrs Laboratory Tests Test 01/06/17 17:15 01/06/17 20:50 01/07/17 01:08 01/07/17 04:59 Bedside Glucose 98 109 156 233 H Test 01/07/17 07:42 01/07/17 09:02 01/07/17 12:57 Bedside Glucose 168 240 H 171 Medications Medications Current Medications Levetiracetam/ Dextrose (Keppra Iv/D5W) 105 ml @ 420 mls/hr Q12 IVPB Last administered on 01/07/17t 08:29; Admin Dose 420 MLS/HR; Start 12/29/16 at 09:00 Acetaminophen (Tylenol Supp) 650 mg Q6H PRN [place] ELEVATED TEMPERATURE; Start at 02:30 Enoxaparin Sodium (Lovenox) 40 mg DAILY SC Last administered on 01/07/17 08:28 ; Admin Dose 40 MG; Start 12/29/16 at 09:00 Miscellaneous Information 1 ea NOTE XX ; Start 12/29/16 at 03:00 Glucose (Glutose) 15 gm Q15M PRN PO DECREASED GLUCOSE; Start 12/29/16 at 03:00 Glucose (Glutose) 22.5 gm Q15M PRN PO DECREASED GLUCOSE; Start 12/29/16 at 03: 00 Dextrose (D50w Syringe) 25 ml Q15M PRN IV DECREASED GLUCOSE Last administered on 01/04/17 06:14; Admin Dose 25 ML; Start 12/29/16 at 03:00 Dextrose (D50w Syringe) 50 ml Q15M PRN IV DECREASED GLUCOSE Last administered on 01/06/17 05:56; Admin Dose 50 ML; Start 12/29/16 at 03:00 Glucagon (Glucagen) 1 mg Q15M PRN IM DECREASED GLUCOSE; Start 12/29/16 at 03:00 Glucose (Glutose) 15 gm Q15M PRN BUCCAL DECREASED GLUCOSE; Start 12/29/16 at 03 :00 Atorvastatin Calcium (Lipitor) 40 mg DAILY@21 PO Last administered on 01/06/17 20:49; Admin Dose 40 MG; Start 12/31/16 at 21:00 Collagenase (Santyl) 1 applic DAILY TOP Last administered on 01/07/17 08:33; Admin Dose 1 APPLIC; Start 01/03/17 at 09:00 Insulin Glargine 16 unit 16 unit QHS SC Last administered on 01/05/17 21:55; Admin Dose 16 UNIT; Start 01/03/17 at 21:00 Potassium Chloride/Dextrose/ Sod Cl (D5-1/2ns + KCl 20 Meq) 1,000 ml @ 50 mls/ hr Q20H IV Last administered on 01/07/17 15:41; Admin Dose 50 MLS/HR; Start 01/04/17 at 08:00 Insulin Aspart (Novolog Insulin Pen) NOVOLOG *MILD* ALGORI... Q4 SC Last administered on 01/07/17 13:03; Admin Dose 1 UNIT; Start 01/04/17 at 13:00 Morphine Sulfate (morphine) 1 mg Q4H PRN IV PAIN LEVEL 7-10 Last administered on 01/06/17t 05:44; Admin Dose 1 MG; Start 01/04/17 at 18:00 Enalaprilat (Vasotec Iv) 1.25 mg Q2 PRN IV ELEVATED BLOOD PRESSURE; Start at 23:30 Gamal Coronel DO Jan 07, 2017 17:01
[2017-01-07] MEDS: DILTIAZEM 30 MG TAB PO SCH ×2 (17:20→23:52)
--- NOTE | 2017-01-07 18:08 | PN ---
Date/Time of Note Date/Time of Note DATE: 01/07/17 TIME: 18:08 Assessment/Plan VTE Prophylaxis VTE Prophylaxis Intervention: SCD's Lines/Catheters IV Catheter Type (from Nrs): PICC Line Central line still needed: Yes Urinary Cath still in place: Yes Reason Cath still needed: urinary retention Assessment/Plan Chief Complaint/Hosp Course Assessment and plan: 1. Tonic-clonic seizure. Patient is followed by Dr. Lee in neurology, continue Keppra. 2. Staph bacteremia. Start vancomycin. Repeat blood cultures. 3. Schizophrenia and bipolar disorder. 4. Hypertension. Patient is currently normotensive. 5. Diabetes mellitus. Continue Lantus and NovoLog with meals. 6. Dyslipidemia. Continue Crestor. 7. Dysphasia, patient failed swallow eval, continue IV fluids. Dr. Mcarthur is asked to see patient in gastroenterology consultation for possible G-tube placement. Further recommendations based on clinical course. Plan of care discussed with Dr. Aly. Problems: Subjective 24 Hr Interval Summary Free Text/Dictation Patient repeatedly is failed swallow evaluation, will obtain gastroenterology consult for possible G-tube placement. No fever nausea vomiting per RN. Exam/Review of Systems Vital Signs Vitals Vital Signs Date Time Temp Pulse Resp B/P Pulse Ox O2 Delivery O2 Flow Rate FiO2 01/07/17 16:44 129 01/07/17 15:27 98.9 20 141/67 97 01/07/17 09:10 3.0 01/07/17 08:00 Nasal Cannula Intake and Output 01/06/17 01/06/17 01/07/17 15:00 23:00 07:00 Intake Total 250 ml 300 ml Output Total 900 ml Balance 250 ml -600 ml Exam GENERAL: Awake alert HEENT: Atraumatic, normocephalic. NECK: Supple. No masses or thyromegaly. CHEST: Lung sounds clear bilaterally CARDIOVASCULAR: Regular rate and rhythm. S1, S2 normal. No murmur, gallop, or rub. ABDOMEN: Soft, nondistended, nontender. Bowel sounds plus. EXTREMITIES: No leg edema. NEUROLOGIC: Awake alert and oriented to name and situation. SKIN: Without acute rash. No clubbing or cyanosis. Results Result Diagram: 01/05/17 0725 01/05/17 0725 Results 24 hrs Laboratory Tests Test 01/06/17 20:50 01/07/17 01:08 01/07/17 04:59 01/07/17 07:42 Bedside Glucose 109 156 233 H 168 Test 01/07/17 09:02 01/07/17 12:57 01/07/17 17:15 Bedside Glucose 240 H 171 251 H Medications Medications Current Medications Levetiracetam/ Dextrose (Keppra Iv/D5W) 105 ml @ 420 mls/hr Q12 IVPB Last administered on 01/07/17 08:29; Admin Dose 420 MLS/HR; Start 12/29/16 at 09:00 Acetaminophen (Tylenol Supp) 650 mg Q6H PRN [place] ELEVATED TEMPERATURE; Start at 02:30 Enoxaparin Sodium (Lovenox) 40 mg DAILY SC Last administered on 01/07/17 08:28 ; Admin Dose 40 MG; Start 12/29/16 at 09:00 Miscellaneous Information 1 ea NOTE XX ; Start 12/29/16 at 03:00 Glucose (Glutose) 15 gm Q15M PRN PO DECREASED GLUCOSE; Start 12/29/16 at 03:00 Glucose (Glutose) 22.5 gm Q15M PRN PO DECREASED GLUCOSE; Start 12/29/16 at 03: 00 Dextrose (D50w Syringe) 25 ml Q15M PRN IV DECREASED GLUCOSE Last administered on 01/04/17 06:14; Admin Dose 25 ML; Start 12/29/16 at 03:00 Dextrose (D50w Syringe) 50 ml Q15M PRN IV DECREASED GLUCOSE Last administered on 01/06/17 05:56; Admin Dose 50 ML; Start 12/29/16 at 03:00 Glucagon (Glucagen) 1 mg Q15M PRN IM DECREASED GLUCOSE; Start 12/29/16 at 03:00 Glucose (Glutose) 15 gm Q15M PRN BUCCAL DECREASED GLUCOSE; Start 12/29/16 at 03 :00 Atorvastatin Calcium (Lipitor) 40 mg DAILY@21 PO Last administered on 01/06/17 20:49; Admin Dose 40 MG; Start 12/31/16 at 21:00 Collagenase (Santyl) 1 applic DAILY TOP Last administered on 01/07/17 08:33; Admin Dose 1 APPLIC; Start 01/03/17 at 09:00 Insulin Glargine 16 unit 16 unit QHS SC Last administered on 01/05/17 21:55; Admin Dose 16 UNIT; Start 01/03/17 at 21:00 Potassium Chloride/Dextrose/ Sod Cl (D5-1/2ns + KCl 20 Meq) 1,000 ml @ 50 mls/ hr Q20H IV Last administered on 01/07/17 15:41; Admin Dose 50 MLS/HR; Start 01/04/17 at 08:00 Insulin Aspart (Novolog Insulin Pen) NOVOLOG *MILD* ALGORI... Q4 SC Last administered on 01/07/17 17:19; Admin Dose 3 UNIT; Start 01/04/17 at 13:00 Morphine Sulfate (morphine) 1 mg Q4H PRN IV PAIN LEVEL 7-10 Last administered on 01/06/17 05:44; Admin Dose 1 MG; Start 01/04/17 at 18:00 Enalaprilat (Vasotec Iv) 1.25 mg Q2 PRN IV ELEVATED BLOOD PRESSURE; Start at 23:30 Diltiazem HCl (Cardizem) 30 mg Q6 PO ; Start 01/07/17 at 18:00 DENA SALGUERO Jan 07, 2017 18:08
[2017-01-07] MEDS ORDERED: VANCOMYCIN IV PER PHARMACY XX SCH (19:00)
[2017-01-07] MEDS: ATORVASTATIN 40 MG TAB PO SCH (21:00)
[2017-01-07] MEDS: INSULIN GLARGINE [LANtus] 3 ML PEN SC SCH (21:10)
[2017-01-07] MEDS: VANCOMYCIN 1.25 GM in SOD CHLORIDE 0.9% 250 ML IVPB SCH (22:13)
[2017-01-08] VITALS (13 sets, daily range): BP systolic 132–170; BP diastolic 60–72; PULSE 112–130; RESP 16–18
[2017-01-08] MEDS: INSULIN ASPART [NOVOLOG] 3 ML PEN SC SCH ×6 (01:02→22:41)
[2017-01-08] MEDS: DILTIAZEM 30 MG TAB PO SCH ×3 (06:00→17:08)
[2017-01-08 07:58] LABS: BASOPHIL # 0.1 10^3/ul (0.0-0.1); BASOPHILS % 0.6 % (0.0-2.0); EOSINOPHILS % 0.5 % (0.0-7.0); HEMATOCRIT 32.3 % (37.0-47.0); HEMOGLOBIN 10.9 g/dl (12.0-16.0); LYMPHOCYTES # 1.3 10^3/ul (0.8-2.9); LYMPHOCYTES % 15.9 % (15.0-51.0); MEAN CORPUSCULAR HEMOGLOBIN 33.1 pg (29.0-33.0); MEAN CORPUSCULAR HGB CONC 33.9 g/dl (32.0-37.0); MEAN CORPUSCULAR VOLUME 97.7 fl (82.0-101.0); MEAN PLATELET VOLUME 8.2 fl (7.4-10.4); MONOCYTE # 0.6 10^3/ul (0.3-0.9); MONOCYTES % 7.3 % (0.0-11.0); NEUTROPHIL # 6.1 10^3/ul (1.6-7.5); NEUTROPHILS % 75.7 % (39.0-77.0); PLATELET COUNT 501 10^3/UL (140-440); RED CELL DISTRIBUTION WIDTH 14.9 % (11.5-14.5); UNCORRECTED WBC 8.1 10^3/ul (4.8-10.8); WHITE BLOOD COUNT 8.1 10^3/ul (4.8-10.8)
[2017-01-08 08:05] LABS: CONDITION 1; LH ANALYZER COMMENTS 1
[2017-01-08 08:09] LABS: POTASSIUM 3.7 mmol/L (3.5-5.1)
[2017-01-08 08:11] LABS: CREATININE 0.5 mg/dl (0.44-1.00)
[2017-01-08 08:12] LABS: CALCIUM 8.4 mg/dl (8.4-10.2)
[2017-01-08] MEDS: ENOXAPARIN 40 MG/0.4 ML SYG SC SCH (08:18)
[2017-01-08] MEDS: LEVETIRACETAM IV 500 MG in DEXTROSE 5% 100 ML IVPB SCH ×2 (08:21→22:40)
[2017-01-08] MEDS: COLLAGENASE 30 GM TUBE TOP SCH (08:22)
[2017-01-08] MEDS: D5W-0.45 NACL + KCL 20 MEQ 1,000 ML IV SCH ×2 (12:00→23:44)
--- NOTE | 2017-01-08 17:47 | PN ---
Date/Time of Note Date/Time of Note DATE: 01/08/17 TIME: 17:41 Assessment/Plan VTE Prophylaxis VTE Prophylaxis Intervention: SCD's Lines/Catheters IV Catheter Type (from Nrs): PICC Line Central line still needed: Yes Urinary Cath still in place: Yes Reason Cath still needed: urinary retention Assessment/Plan Chief Complaint/Hosp Course Assessment and plan: 1. Tonic-clonic seizure. Patient is followed by Dr. Lee in neurology, continue Keppra. 2. Staph bacteremia. Continue vancomycin. Repeat blood cultures. Dr. Coffman will be following from infectious disease standpoint. 3. Schizophrenia and bipolar disorder. 4. Hypertension. Patient is currently normotensive. 5. Diabetes mellitus. Continue Lantus and NovoLog with meals. 6. Dyslipidemia. Continue Crestor. 7. Dysphasia, patient failed swallow eval, continue IV fluids. Dr. Mcarthur is asked to see patient in gastroenterology consultation for possible G-tube placement. 8. Sinus tachycardia was episodes of atrial tachycardia. Dr. Coronel is following from cardiology standpoint. Further recommendations based on clinical course. Plan of care discussed with Dr. Aly. Problems: Subjective 24 Hr Interval Summary Free Text/Dictation Patient is awake, alert to name, tachycardic, no fevers. Exam/Review of Systems Vital Signs Vitals Vital Signs Date Time Temp Pulse Resp B/P Pulse Ox O2 Delivery O2 Flow Rate FiO2 01/08/17 17:07 114 01/08/17 15:44 98.5 18 158/72 94 01/08/17 08:00 Nasal Cannula 3.0 Intake and Output 01/07/17 01/07/17 01/08/17 15:00 23:00 07:00 Intake Total 950 ml Output Total 700 ml Balance 250 ml Exam GENERAL: Awake alert HEENT: Atraumatic, normocephalic. NECK: Supple. No masses or thyromegaly. CHEST: Lung sounds clear bilaterally CARDIOVASCULAR: Regular rate and rhythm. S1, S2 normal. No murmur, gallop, or rub. ABDOMEN: Soft, nondistended, nontender. Bowel sounds plus. EXTREMITIES: No leg edema. NEUROLOGIC: Awake alert and oriented to name and situation. SKIN: Without acute rash. No clubbing or cyanosis. Results Result Diagram: 01/08/1757 01/08/17656 Results 24 hrs Laboratory Tests Test 01/07/17 20:45 01/08/17 00:59 01/08/17 04:53 01/08/17 06:57 Bedside Glucose 175 198 251 H Anion Gap 15 Basophils # 0.1 Basophils % 0.6 Blood Morphology Comment Blood Urea Nitrogen 4 L Calcium Level 8.4 Carbon Dioxide Level 24 Chloride Level 103 Creatinine 0.50 Eosinophils # 0.0 Eosinophils % 0.5 Glucose Level 185 Hematocrit 32.3 L Hemoglobin 10.9 L Lymphocytes # 1.3 Lymphocytes % 15.9 Mean Corpuscular Hemoglobin 33.1 H Mean Corpuscular Hemoglobin Concent 33.9 Mean Corpuscular Volume 97.7 Mean Platelet Volume 8.2 Monocytes # 0.6 Monocytes % 7.3 Neutrophils # 6.1 Neutrophils % 75.7 Nucleated Red Blood Cells # 0.0 Nucleated Red Blood Cells % 0.0 Platelet Count 501 H Potassium Level 3.7 Red Blood Count 3.30 L Red Cell Distribution Width 14.9 H Sodium Level 138 White Blood Count 8.1 Test 01/08/17 08:21 01/08/17 12:35 01/08/17 16:44 Bedside Glucose 201 290 H 206 Medications Medications Current Medications Levetiracetam/ Dextrose (Keppra Iv/D5W) 105 ml @ 420 mls/hr Q12 IVPB Last administered on 01/08/17 08:21; Admin Dose 420 MLS/HR; Start 12/29/16 at 09:00 Acetaminophen (Tylenol Supp) 650 mg Q6H PRN [place] ELEVATED TEMPERATURE; Start at 02:30 Enoxaparin Sodium (Lovenox) 40 mg DAILY SC Last administered on 01/08/17 08:18 ; Admin Dose 40 MG; Start 12/29/16 at 09:00 Miscellaneous Information 1 ea NOTE XX ; Start 12/29/16 at 03:00 Glucose (Glutose) 15 gm Q15M PRN PO DECREASED GLUCOSE; Start 12/29/16 at 03:00 Glucose (Glutose) 22.5 gm Q15M PRN PO DECREASED GLUCOSE; Start 12/29/16 at 03: 00 Dextrose (D50w Syringe) 25 ml Q15M PRN IV DECREASED GLUCOSE Last administered on 01/04/17 06:14; Admin Dose 25 ML; Start 12/29/16 at 03:00 Dextrose (D50w Syringe) 50 ml Q15M PRN IV DECREASED GLUCOSE Last administered on 01/06/17 05:56; Admin Dose 50 ML; Start 12/29/16 at 03:00 Glucagon (Glucagen) 1 mg Q15M PRN IM DECREASED GLUCOSE; Start 12/29/16 at 03:00 Glucose (Glutose) 15 gm Q15M PRN BUCCAL DECREASED GLUCOSE; Start 12/29/16 at 03 :00 Atorvastatin Calcium (Lipitor) 40 mg DAILY@21 PO Last administered on 01/06/17 20:49; Admin Dose 40 MG; Start 12/31/16 at 21:00 Collagenase (Santyl) 1 applic DAILY TOP Last administered on 01/08/17 08:22; Admin Dose 1 APPLIC; Start 01/03/17 at 09:00 Insulin Glargine 16 unit 16 unit QHS SC Last administered on 01/07/17 21:10; Admin Dose 16 UNIT; Start 01/03/17 at 21:00 Potassium Chloride/Dextrose/ Sod Cl (D5-1/2ns + KCl 20 Meq) 1,000 ml @ 50 mls/ hr Q20H IV Last administered on 01/07/17 15:41; Admin Dose 50 MLS/HR; Start 01/04/17 at 08:00 Insulin Aspart (Novolog Insulin Pen) NOVOLOG *MILD* ALGORI... Q4 SC Last administered on 01/08/17 16:48; Admin Dose 2 UNIT; Start 01/04/17 at 13:00 Morphine Sulfate (morphine) 1 mg Q4H PRN IV PAIN LEVEL 7-10 Last administered on 01/06/17 05:44; Admin Dose 1 MG; Start 01/04/17 at 18:00 Enalaprilat (Vasotec Iv) 1.25 mg Q2 PRN IV ELEVATED BLOOD PRESSURE; Start at 23:30 Diltiazem HCl 30 mg 30 mg Q6 PO ; Start 01/07/17 at 18:00 Vancomycin HCl/ Sodium Chloride (Vancocin/NS) 250 ml @ 83.333 mls/ hr Q24H IVPB Last administered on 01/07/17 22:13; Admin Dose 83.333 MLS/HR; Start at 22:00 DENA SALGUERO Jan 08, 2017 17:47
--- NOTE | 2017-01-08 19:23 | CONS ---
Date/Time of Note Date/Time of Note DATE: 01/08/17 TIME: 19:21 Assessment/Plan Assessment/Plan Additional Assessment/Plan Seizure UTI Hypoglycemia Sinus tachycardia with episodes of atrial tachycardia Preserved ejection fraction Psychiatric disorder -Telemetry reviewed with more frequent episodes of atrial tachycardia. Patient still unable to take your medications. Would strongly consider placement of NG tube. Will start IV Cardizem in the interim. We will order potassium supplementation, check magnesium level Consultation Date/Type/Reason Admit Date/Time Dec 28, 2016 at 16:56 Initial Consult Date 12/30/16 Type of Consultation: cv Referring Provider: LUZMA HYMAN MD 24 HR Interval Summary Free Text/Dictation Patient seen and examined, as per nursing staff, still unable to take by mouth medications Exam/Review of Systems Vital Signs Vitals Vital Signs Date Time Temp Pulse Resp B/P Pulse Ox O2 Delivery O2 Flow Rate FiO2 01/08/17 18:06 3.0 01/08/17 17:07 114 01/08/17 15:44 98.5 18 158/72 94 01/08/17 08:00 Nasal Cannula Intake and Output 01/07/17 01/07/17 01/08/17 15:00 23:00 07:00 Intake Total 950 ml Output Total 700 ml Balance 250 ml Exam Awake, not following commands, no apparent distress Head: normocephalic Respiratory: other (course breath sounds bilaterally, no wheezing) Cardiovascular: other (S1 and S2 heard), regular rate and rhythm (tachycardic) Gastrointestinal: bowel sounds, non-tender, soft Extremities: edema (trace) Results Result Diagram: 01/08/17 0657 01/08/17 0657 Results 24 hrs Laboratory Tests Test 01/07/17 20:45 01/08/17 00:59 01/08/17 04:53 01/08/17 06:57 Bedside Glucose 175 198 251 H Anion Gap 15 Basophils # 0.1 Basophils % 0.6 Blood Morphology Comment Blood Urea Nitrogen 4 L Calcium Level 8.4 Carbon Dioxide Level 24 Chloride Level 103 Creatinine 0.50 Eosinophils # 0.0 Eosinophils % 0.5 Glucose Level 185 Hematocrit 32.3 L Hemoglobin 10.9 L Lymphocytes # 1.3 Lymphocytes % 15.9 Mean Corpuscular Hemoglobin 33.1 H Mean Corpuscular Hemoglobin Concent 33.9 Mean Corpuscular Volume 97.7 Mean Platelet Volume 8.2 Monocytes # 0.6 Monocytes % 7.3 Neutrophils # 6.1 Neutrophils % 75.7 Nucleated Red Blood Cells # 0.0 Nucleated Red Blood Cells % 0.0 Platelet Count 501 H Potassium Level 3.7 Red Blood Count 3.30 L Red Cell Distribution Width 14.9 H Sodium Level 138 White Blood Count 8.1 Test 01/08/17 08:21 01/08/17 12:35 01/08/17 16:44 Bedside Glucose 201 290 H 206 Medications Medications Current Medications Levetiracetam/ Dextrose (Keppra Iv/D5W) 105 ml @ 420 mls/hr Q12 IVPB Last administered on 01/08/17 08:21; Admin Dose 420 MLS/HR; Start 12/29/16 at 09:00 Acetaminophen (Tylenol Supp) 650 mg Q6H PRN [place] ELEVATED TEMPERATURE; Start at 02:30 Enoxaparin Sodium (Lovenox) 40 mg DAILY SC Last administered on 01/08/17 08:18 ; Admin Dose 40 MG; Start 12/29/16 at 09:00 Miscellaneous Information 1 ea NOTE XX ; Start 12/29/16 at 03:00 Glucose (Glutose) 15 gm Q15M PRN PO DECREASED GLUCOSE; Start 12/29/16 at 03:00 Glucose (Glutose) 22.5 gm Q15M PRN PO DECREASED GLUCOSE; Start 12/29/16 at 03: 00 Dextrose (D50w Syringe) 25 ml Q15M PRN IV DECREASED GLUCOSE Last administered on 01/04/17 06:14; Admin Dose 25 ML; Start 12/29/16 at 03:00 Dextrose (D50w Syringe) 50 ml Q15M PRN IV DECREASED GLUCOSE Last administered on 01/06/17 05:56; Admin Dose 50 ML; Start 12/29/16 at 03:00 Glucagon (Glucagen) 1 mg Q15M PRN IM DECREASED GLUCOSE; Start 12/29/16 at 03:00 Glucose (Glutose) 15 gm Q15M PRN BUCCAL DECREASED GLUCOSE; Start 12/29/16 at 03 :00 Atorvastatin Calcium (Lipitor) 40 mg DAILY@21 PO Last administered on 01/06/17 20:49; Admin Dose 40 MG; Start 12/31/16 at 21:00 Collagenase (Santyl) 1 applic DAILY TOP Last administered on 01/08/17 08:22; Admin Dose 1 APPLIC; Start 01/03/17 at 09:00 Insulin Glargine 16 unit 16 unit QHS SC Last administered on 01/07/17 21:10; Admin Dose 16 UNIT; Start 01/03/17 at 21:00 Potassium Chloride/Dextrose/ Sod Cl (D5-1/2ns + KCl 20 Meq) 1,000 ml @ 50 mls/ hr Q20H IV Last administered on 01/07/17 15:41; Admin Dose 50 MLS/HR; Start 01/04/17 at 08:00 Insulin Aspart (Novolog Insulin Pen) NOVOLOG *MILD* ALGORI... Q4 SC Last administered on 01/08/17 16:48; Admin Dose 2 UNIT; Start 01/04/17 at 13:00 Morphine Sulfate (morphine) 1 mg Q4H PRN IV PAIN LEVEL 7-10 Last administered on 01/06/17 05:44; Admin Dose 1 MG; Start 01/04/17 at 18:00 Enalaprilat (Vasotec Iv) 1.25 mg Q2 PRN IV ELEVATED BLOOD PRESSURE; Start at 23:30 Diltiazem HCl 30 mg 30 mg Q6 PO ; Start 01/07/17 at 18:00 Vancomycin HCl/ Sodium Chloride (Vancocin/NS) 250 ml @ 83.333 mls/ hr Q24H IVPB Last administered on 01/07/17 22:13; Admin Dose 83.333 MLS/HR; Start at 22:00 Gamal Coronel DO Jan 08, 2017 19:23
[2017-01-08] MEDS ORDERED: POTASSIUM CHLORIDE 250 ML IVPB ONE (21:00)
[2017-01-08] MEDS: ATORVASTATIN 40 MG TAB PO SCH (21:00)
[2017-01-08] MEDS: DILTIAZEM 25 MG INJ IV SCH (21:28)
[2017-01-08] MEDS: INSULIN GLARGINE [LANtus] 3 ML PEN SC SCH (22:42)
[2017-01-08] MEDS: VANCOMYCIN 1.25 GM in SOD CHLORIDE 0.9% 250 ML IVPB SCH (23:43)
[2017-01-09] VITALS (12 sets, daily range): BP systolic 103–147; BP diastolic 57–67; PULSE 98–145; RESP 16–20
[2017-01-09] MEDS: DILTIAZEM 25 MG INJ IV SCH ×4 (01:49→18:34)
[2017-01-09] MEDS: INSULIN ASPART [NOVOLOG] 3 ML PEN SC SCH ×6 (01:59→20:45)
[2017-01-09] MEDS: DEXTROSE 50% 50 ML SYRINGE IV PRN (05:16)
[2017-01-09 08:20] LABS: BASOPHILS % 0.4 % (0.0-2.0); EOSINOPHILS # 0.1 10^3/ul (0.0-0.5); EOSINOPHILS % 0.9 % (0.0-7.0); HEMOGLOBIN 10.6 g/dl (12.0-16.0); LYMPHOCYTES # 1.8 10^3/ul (0.8-2.9); LYMPHOCYTES % 17.7 % (15.0-51.0); MEAN CORPUSCULAR HEMOGLOBIN 32.7 pg (29.0-33.0); MEAN CORPUSCULAR HGB CONC 33.2 g/dl (32.0-37.0); MEAN CORPUSCULAR VOLUME 98.5 fl (82.0-101.0); MEAN PLATELET VOLUME 8.1 fl (7.4-10.4); MONOCYTE # 0.8 10^3/ul (0.3-0.9); MONOCYTES % 7.8 % (0.0-11.0); NEUTROPHIL # 7.4 10^3/ul (1.6-7.5); NEUTROPHILS % 73.2 % (39.0-77.0); PLATELET COUNT 493 10^3/UL (140-440); RED BLOOD COUNT 3.25 10^6/ul (4.20-5.40); RED CELL DISTRIBUTION WIDTH 14.9 % (11.5-14.5); UNCORRECTED WBC 10.2 10^3/ul (4.8-10.8); WHITE BLOOD COUNT 10.2 10^3/ul (4.8-10.8)
[2017-01-09 08:29] LABS: CONDITION 1; LH ANALYZER COMMENTS 1
[2017-01-09 08:33] LABS: POTASSIUM 4.6 mmol/L (3.5-5.1)
[2017-01-09 08:35] LABS: CREATININE 0.47 mg/dl (0.44-1.00)
[2017-01-09 08:36] LABS: CALCIUM 8.6 mg/dl (8.4-10.2)
[2017-01-09] MEDS: COLLAGENASE 30 GM TUBE TOP SCH (09:00)
[2017-01-09] MEDS: LEVETIRACETAM IV 500 MG in DEXTROSE 5% 100 ML IVPB SCH ×2 (09:48→20:45)
[2017-01-09] MEDS: ENOXAPARIN 40 MG/0.4 ML SYG SC SCH (10:00)
--- NOTE | 2017-01-09 13:02 | CONS ---
Date/Time of Note Date/Time of Note DATE: 01/09/17 TIME: 13:00 Assessment/Plan Assessment/Plan Additional Assessment/Plan Seizure UTI Hypoglycemia Sinus tachycardia with episodes of atrial tachycardia Preserved ejection fraction Psychiatric disorder -Patient started on IV Cardizem in the interim. Possible NG tube placement and if yes, would switch Cardizem to by mouth. Magnesium level is very low, supplementation has been ordered. Consultation Date/Type/Reason Admit Date/Time Dec 28, 2016 at 16:56 Initial Consult Date 12/30/16 Type of Consultation: cv Referring Provider: LUZMA HYMAN MD 24 HR Interval Summary Free Text/Dictation Patient seen and examined, not talking this morning, moaning at times Exam/Review of Systems Vital Signs Vitals Vital Signs Date Time Temp Pulse Resp B/P Pulse Ox O2 Delivery O2 Flow Rate FiO2 01/09/17 12:10 145 01/09/17 12:02 97.7 20 127/60 92 01/09/17 01:32 3.0 01/08/17 20:00 Nasal Cannula Intake and Output 01/08/17 01/08/17 01/09/17 15:00 23:00 07:00 Intake Total 600 ml 950 ml Output Total 700 ml 700 ml Balance -100 ml 250 ml Exam Awake, moaning at times, not following directions Head: normocephalic Respiratory: other (course breath sounds bilaterally, no wheezing) Cardiovascular: other (S1 and S2 heard), regular rate and rhythm Gastrointestinal: bowel sounds, non-tender, soft Extremities: edema (trace) Results Result Diagram: 01/09/17 0654 01/09/17 0654 Results 24 hrs Laboratory Tests Test 01/08/17 16:44 01/08/17 21:45 01/09/17 01:47 01/09/17 05:10 Bedside Glucose 206 211 142 65 L Test 01/09/17 05:34 01/09/17 05:51 01/09/17 06:54 01/09/17 09:57 Bedside Glucose 133 127 97 Anion Gap 17 H Basophils # 0.0 Basophils % 0.4 Blood Morphology Comment Blood Urea Nitrogen 3 L Calcium Level 8.6 Carbon Dioxide Level 24 Chloride Level 104 Creatinine 0.47 Eosinophils # 0.1 Eosinophils % 0.9 Glucose Level 106 # Hematocrit 32.0 L Hemoglobin 10.6 L Lymphocytes # 1.8 Lymphocytes % 17.7 Magnesium Level 1.2 L Mean Corpuscular Hemoglobin 32.7 Mean Corpuscular Hemoglobin Concent 33.2 Mean Corpuscular Volume 98.5 Mean Platelet Volume 8.1 Monocytes # 0.8 Monocytes % 7.8 Neutrophils # 7.4 Neutrophils % 73.2 Nucleated Red Blood Cells # 0.0 Nucleated Red Blood Cells % 0.0 Platelet Count 493 H Potassium Level 4.6 Red Blood Count 3.25 L Red Cell Distribution Width 14.9 H Sodium Level 140 White Blood Count 10.2 # Medications Medications Current Medications Levetiracetam/ Dextrose (Keppra Iv/D5W) 105 ml @ 420 mls/hr Q12 IVPB Last administered on 01/09/17 09:48; Admin Dose 420 MLS/HR; Start 12/29/16 at 09:00 Acetaminophen (Tylenol Supp) 650 mg Q6H PRN [place] ELEVATED TEMPERATURE; Start at 02:30 Enoxaparin Sodium (Lovenox) 40 mg DAILY SC Last administered on 01/09/17 10:00 ; Admin Dose 40 MG; Start 12/29/16 at 09:00 Miscellaneous Information 1 ea NOTE XX ; Start 12/29/16 at 03:00 Glucose (Glutose) 15 gm Q15M PRN PO DECREASED GLUCOSE; Start 12/29/16 at 03:00 Glucose (Glutose) 22.5 gm Q15M PRN PO DECREASED GLUCOSE; Start 12/29/16 at 03: 00 Dextrose (D50w Syringe) 25 ml Q15M PRN IV DECREASED GLUCOSE Last administered on 01/09/17 05:16; Admin Dose 25 ML; Start 12/29/16 at 03:00 Dextrose (D50w Syringe) 50 ml Q15M PRN IV DECREASED GLUCOSE Last administered on 01/06/17 05:56; Admin Dose 50 ML; Start 12/29/16 at 03:00 Glucagon (Glucagen) 1 mg Q15M PRN IM DECREASED GLUCOSE; Start 12/29/16 at 03:00 Glucose (Glutose) 15 gm Q15M PRN BUCCAL DECREASED GLUCOSE; Start 12/29/16 at 03 :00 Atorvastatin Calcium (Lipitor) 40 mg DAILY@21 PO Last administered on 01/06/17 20:49; Admin Dose 40 MG; Start 12/31/16 at 21:00 Collagenase (Santyl) 1 applic DAILY TOP Last administered on 01/08/17 08:22; Admin Dose 1 APPLIC; Start 01/03/17 at 09:00 Insulin Glargine 16 unit 16 unit QHS SC Last administered on 01/08/17 22:42; Admin Dose 16 UNIT; Start 01/03/17 at 21:00 Potassium Chloride/Dextrose/ Sod Cl (D5-1/2ns + KCl 20 Meq) 1,000 ml @ 50 mls/ hr Q20H IV Last administered on 01/08/17 23:44; Admin Dose 50 MLS/HR; Start 01/04/17 at 08:00 Insulin Aspart (Novolog Insulin Pen) NOVOLOG *MILD* ALGORI... Q4 SC Last administered on 01/09/17 01:59; Admin Dose 1 UNIT; Start 01/04/17 at 13:00 Morphine Sulfate (morphine) 1 mg Q4H PRN IV PAIN LEVEL 7-10 Last administered on 01/06/17 05:44; Admin Dose 1 MG; Start 01/04/17 at 18:00 Enalaprilat (Vasotec Iv) 1.25 mg Q2 PRN IV ELEVATED BLOOD PRESSURE; Start at 23:30 Diltiazem HCl 30 mg 30 mg Q6 PO ; Start 01/07/17 at 18:00; Status Future Hold Vancomycin HCl/ Sodium Chloride (Vancocin/NS) 250 ml @ 83.333 mls/ hr Q24H IVPB Last administered on 01/08/17 23:43; Admin Dose 83.333 MLS/HR; Start at 22:00 Diltiazem HCl (Cardizem Iv) 5 mg Q6 IV Last administered on 01/09/17 06:27; Admin Dose 5 MG; Start 01/08/17 at 19:30 Gamal Coronel DO Jan 09, 2017 13:02
[2017-01-09] MEDS ORDERED: MAGNESIUM SULFATE 4 GM/100 ML 100 ML IVPB ONE (14:00)
--- NOTE | 2017-01-09 18:07 | PN ---
DATE: 01/09/2017 SUBJECTIVE: No acute events overnight. The patient is lying comfortably in bed. She is tachycardi c. Per report, has been n.p.o. for a while because of not passing swallow evaluation. VITAL SIGNS: Temperature is 99.6, pulse 116, respirations 20, blood pressure 145/67, saturation 98 on 3 liters. WBC 10.2, H and H 10.6 and 32, platelets 493, no shift, no bands. BUN 3, creatinine 0.47. INDWELLINGS: The patient has right upper extremity PICC line, time of placement unknown. Blood cul ture done on 01/04/2017 grew coag negative staph species susceptible to doxycycline, vancomycin and rifampin. ANTIMICROBIALS: The patient is on IV vancomycin. PHYSICAL EXAMINATION: GENERAL: This is a chronically ill-appearing, middle-aged white woman who is lying comfortably in b ed. HEENT: Head atraumatic, normocephalic. Sclerae anicteric. Buccal mucosa dry. NECK: Supple, trachea midline. CHEST: Rise symmetrical. Breath sounds diminished to bases. HEART: S1, S2. ABDOMEN: Soft. Bowel tones present. EXTREMITIES: Contractured with edema. SKIN: With anasarca. ASSESSMENT: 1. Coagulase-negative Staphylococcus bacteremia with low-grade fevers and tachycardia, possibly poly e sepsis. 2. Right upper extremity peripherally inserted central catheter line placed on 12/10/2016. 3. Status post urinary tract infection and pneumonia. 4. Seizure disorder. 5. Dysphagia with severe malnutrition. 6. Anemia. PLAN: The patient remains clinically stable, started on antibiotics. Will repeat blood cultures fr om PICC line. Will order urine culture and chest x-ray in a.m. Continue anti-aspiration measures, possible PEG placement. Dictated By: MELODIE RAMIREZ [employer] DRIVER for ALISSA LOWE/RUSTY Conf#: [id number] DID#: [id number]
--- NOTE | 2017-01-09 18:14 | PN ---
Date/Time of Note Date/Time of Note DATE: 01/09/17 TIME: 18:10 Assessment/Plan VTE Prophylaxis VTE Prophylaxis Intervention: SCD's Lines/Catheters IV Catheter Type (from Nrs): PICC Line Central line still needed: Yes Urinary Cath still in place: Yes Reason Cath still needed: urinary retention Assessment/Plan Chief Complaint/Hosp Course Assessment and plan: 1. Tonic-clonic seizure. Patient is followed by Dr. Lee in neurology, continue Keppra. 2. Staph bacteremia. Continue vancomycin. Repeat blood cultures. Dr. Coffman will be following from infectious disease standpoint. 3. Schizophrenia and bipolar disorder. 4. Hypertension. Patient is currently normotensive. 5. Diabetes mellitus. Continue Lantus and NovoLog with meals. 6. Dyslipidemia. Continue Crestor. 7. Dysphasia, patient failed swallow eval, continue IV fluids. Dr. Mcarthur is following in gastroenterology consultation, pending G-tube placement tomorrow. 8. Sinus tachycardia was episodes of atrial tachycardia. Dr. Coronel is following from cardiology standpoint. Further recommendations based on clinical course. Plan of care discussed with Dr. Aly. Problems: Subjective 24 Hr Interval Summary Free Text/Dictation Patient is afebrile, awake alert to name, no significant change, pending G-tube placement. Exam/Review of Systems Vital Signs Vitals Vital Signs Date Time Temp Pulse Resp B/P Pulse Ox O2 Delivery O2 Flow Rate FiO2 01/09/17 16:49 3.0 01/09/17 16:49 110 01/09/17 15:32 99.6 20 145/67 98 01/08/17 20:00 Nasal Cannula Intake and Output 01/08/17 01/08/17 01/09/17 15:00 23:00 07:00 Intake Total 600 ml 950 ml Output Total 700 ml 700 ml Balance -100 ml 250 ml Exam GENERAL: Awake alert HEENT: Atraumatic, normocephalic. NECK: Supple. No masses or thyromegaly. CHEST: Lung sounds clear bilaterally CARDIOVASCULAR: Regular rate and rhythm. S1, S2 normal. No murmur, gallop, or rub. ABDOMEN: Soft, nondistended, nontender. Bowel sounds plus. EXTREMITIES: No leg edema. NEUROLOGIC: Awake alert and oriented to name and situation. SKIN: Without acute rash. No clubbing or cyanosis. Results Result Diagram: 01/09/17 0654 01/09/17 0654 Results 24 hrs Laboratory Tests Test 01/08/17 21:45 01/09/17 01:47 01/09/17 05:10 01/09/17 05:34 Bedside Glucose 211 142 65 L 133 Test 01/09/17 05:51 01/09/17 06:54 01/09/17 09:57 01/09/17 13:34 Bedside Glucose 127 97 82 Anion Gap 17 H Basophils # 0.0 Basophils % 0.4 Blood Morphology Comment Blood Urea Nitrogen 3 L Calcium Level 8.6 Carbon Dioxide Level 24 Chloride Level 104 Creatinine 0.47 Eosinophils # 0.1 Eosinophils % 0.9 Glucose Level 106 # Hematocrit 32.0 L Hemoglobin 10.6 L Lymphocytes # 1.8 Lymphocytes % 17.7 Magnesium Level 1.2 L Mean Corpuscular Hemoglobin 32.7 Mean Corpuscular Hemoglobin Concent 33.2 Mean Corpuscular Volume 98.5 Mean Platelet Volume 8.1 Monocytes # 0.8 Monocytes % 7.8 Neutrophils # 7.4 Neutrophils % 73.2 Nucleated Red Blood Cells # 0.0 Nucleated Red Blood Cells % 0.0 Platelet Count 493 H Potassium Level 4.6 Red Blood Count 3.25 L Red Cell Distribution Width 14.9 H Sodium Level 140 White Blood Count 10.2 # Medications Medications Current Medications Levetiracetam/ Dextrose (Keppra Iv/D5W) 105 ml @ 420 mls/hr Q12 IVPB Last administered on 01/09/17 09:48; Admin Dose 420 MLS/HR; Start 12/29/16 at 09:00 Acetaminophen (Tylenol Supp) 650 mg Q6H PRN [place] ELEVATED TEMPERATURE; Start at 02:30 Enoxaparin Sodium (Lovenox) 40 mg DAILY SC Last administered on 01/09/17 10:00 ; Admin Dose 40 MG; Start 12/29/16 at 09:00 Miscellaneous Information 1 ea NOTE XX ; Start 12/29/16 at 03:00 Glucose (Glutose) 15 gm Q15M PRN PO DECREASED GLUCOSE; Start 12/29/16 at 03:00 Glucose (Glutose) 22.5 gm Q15M PRN PO DECREASED GLUCOSE; Start 12/29/16 at 03: 00 Dextrose (D50w Syringe) 25 ml Q15M PRN IV DECREASED GLUCOSE Last administered on 01/09/17 05:16; Admin Dose 25 ML; Start 12/29/16 at 03:00 Dextrose (D50w Syringe) 50 ml Q15M PRN IV DECREASED GLUCOSE Last administered on 01/06/17 05:56; Admin Dose 50 ML; Start 12/29/16 at 03:00 Glucagon (Glucagen) 1 mg Q15M PRN IM DECREASED GLUCOSE; Start 12/29/16 at 03:00 Glucose (Glutose) 15 gm Q15M PRN BUCCAL DECREASED GLUCOSE; Start 12/29/16 at 03 :00 Atorvastatin Calcium (Lipitor) 40 mg DAILY@21 PO Last administered on 01/06/17 20:49; Admin Dose 40 MG; Start 12/31/16 at 21:00 Collagenase (Santyl) 1 applic DAILY TOP Last administered on 01/09/17 09:00; Admin Dose 1 APPLIC; Start 01/03/17 at 09:00 Insulin Glargine 16 unit 16 unit QHS SC Last administered on 01/08/17 22:42; Admin Dose 16 UNIT; Start 01/03/17 at 21:00 Potassium Chloride/Dextrose/ Sod Cl (D5-1/2ns + KCl 20 Meq) 1,000 ml @ 50 mls/ hr Q20H IV Last administered on 01/08/17 23:44; Admin Dose 50 MLS/HR; Start 01/04/17 at 08:00 Insulin Aspart (Novolog Insulin Pen) NOVOLOG *MILD* ALGORI... Q4 SC Last administered on 01/09/17 01:59; Admin Dose 1 UNIT; Start 01/04/17 at 13:00 Morphine Sulfate (morphine) 1 mg Q4H PRN IV PAIN LEVEL 7-10 Last administered on 01/06/17 05:44; Admin Dose 1 MG; Start 01/04/17 at 18:00 Enalaprilat (Vasotec Iv) 1.25 mg Q2 PRN IV ELEVATED BLOOD PRESSURE; Start at 23:30 Diltiazem HCl 30 mg 30 mg Q6 PO ; Start 01/07/17 at 18:00; Status Future Hold Vancomycin HCl/ Sodium Chloride (Vancocin/NS) 250 ml @ 83.333 mls/ hr Q24H IVPB Last administered on 01/08/17 23:43; Admin Dose 83.333 MLS/HR; Start at 22:00 Diltiazem HCl 5 mg 5 mg Q6 IV Last administered on 01/09/17 13:36; Admin Dose 5 MG; Start 01/08/17 at 19:30 Ceftriaxone Sodium (Rocephin) 50 ml @ 100 mls/hr Q24H IVPB ; Start 01/09/17 at 18:00 DENA SALGUERO Jan 09, 2017 18:14
[2017-01-09] MEDS: D5W-0.45 NACL + KCL 20 MEQ 1,000 ML IV SCH (18:34)
[2017-01-09] MEDS: CEFTRIAXONE 1 GM/50 ML (PMX) 50 ML IVPB SCH (18:34)
--- NOTE | 2017-01-09 18:40 | CONS ---
DATE OF ADMISSION: 12/28/2016 DATE OF CONSULTATION: TYPE OF CONSULTATION: Gastroenterology. Dear Dr. Hyman: Thank you for asking me to see Ms. Cohen in GI consultation. HISTORY OF PRESENT ILLNESS: As you know, the patient is a 56-year-old white female who is admitted to the hospital because of seizure disorder, and at this time, GI consultation is requested for plac ement of a percutaneous endoscopic gastrostomy for long-term nutritional support. The patient is unable to eat any free food by mouth because she is completely unresponsive, although she seems to be. She is alert, but she is nonverbal. She has multiple other medical problems incl uding history of urinary tract infections, schizophrenia, bipolar disorder, hypertension, diabetes, dyslipidemia. MEDICATIONS: Currently include: 1. Ceftriaxone. 2. Magnesium sulfate. 3. Potassium chloride. 4. Vancomycin 5. Diltiazem. 6. Zyrtec. 7. Potassium. 8. Collagenase. 9. Atorvastatin. 10. Levetiracetam. 11. Lovenox. PHYSICAL EXAMINATION: GENERAL: The patient is a 56-year-old white female who at this time is unresponsive. VITAL SIGNS: Temperature 99.6, pulse is 110, blood pressure 145/67. CARDIOVASCULAR: Heart sounds well heard. RESPIRATORY: Normal breath sounds. ABDOMEN: Shows soft abdomen with no palpable masses. No tenderness, no distention. LABORATORY WORKUP: Shows WBC count is 10,200; hemoglobin is 10.6, platelet count 493,000. The pota ssium 4.6, BUN is 3, creatinine is 0.47, magnesium 1.2. The chest x-ray shows plate-like densities noted in the left lower lung. PICC line noted. CLINICAL IMPRESSION: 1. Dysphagia. 2. Seizure disorder. 3. Dementia. 4. Schizophrenia. 5. Bipolar disorder. 6. Some urosepsis. 7. She also has tachycardia. PLAN: At this time, will proceed with percutaneous endoscopic gastrostomy tube placement, if agreea ble to the family. Once again, doctor, thank you for this consultation. Dictated By: ANTONY MACHADO/RUSTY Conf#: [id number] DID#: [id number] CC: LUZMA HYMAN MD; ANTONY CLAYTON MD;*EndCC*
[2017-01-09] MEDS: ATORVASTATIN 40 MG TAB PO SCH (20:44)
[2017-01-09] MEDS: VANCOMYCIN 1.25 GM in SOD CHLORIDE 0.9% 250 ML IVPB SCH (20:45)
[2017-01-09] MEDS: INSULIN GLARGINE [LANtus] 3 ML PEN SC SCH (20:46)
[2017-01-10] VITALS (24 sets, daily range): BP systolic 96–149; BP diastolic 49–66; PULSE 86–152; RESP 15–21
[2017-01-10] MEDS: morphine 2 MG INJ IV PRN ×3 (00:41→22:28)
[2017-01-10] MEDS: DILTIAZEM 25 MG INJ IV SCH ×5 (00:43→22:40)
[2017-01-10] MEDS: INSULIN ASPART [NOVOLOG] 3 ML PEN SC SCH ×6 (00:55→22:31)
--- NOTE | 2017-01-10 01:16 | CONS ---
DATE OF ADMISSION: 12/28/2016 DATE OF CONSULTATION: TYPE OF CONSULTATION: Infectious disease for Dr. Saúl Coffman. REQUESTING PHYSICIAN: Mckinley Aly MD HISTORY OF PRESENT ILLNESS: The patient is a 56-year-old single female whom we are asked t o see because of dysphagia and 2 positive blood cultures for coagulase-negative staph. In the last 2 months, the patient has had a cascade of adverse medical events including septicemia from urinary tract infection, witnessed major motor seizure, dysphagia resulting in probable aspiration, anemia a nd thrombocytosis of 640,000. The patient was seen in the emergency room, and her initial pulse was 131, temperature was 97.9. Highest temperature she has recorded was 99.6. She had 2 blood culture s positive for coagulase-negative staph. Her urine culture was negative. MRSA screen was negative. Her chest x-ray revealed plate-like atelectasis in the left lower lobe versus consolidation. She has a PICC line which she has had in since 12/10/2016. CT scan of the brain revealed chronic deep w kaylee matter changes. The patient was begun treatment with vancomycin. Her white count tended to sa wtooth up down on either side of 10,000. The most recent one today on 01/09 was 10,200. PAST MEDICAL HISTORY: The patient has a history of seizure disorder, dysphagia, anemia, hyperlipide devan, glaucoma, diabetes. ALLERGIES: SHE HAS NO ALLERGIES. PAST SURGICAL HISTORY: No history of surgery except for placement of a PICC line. MEDICATIONS: Include: 1. Diltiazem 5 mg q.6h IV as needed. 2. Enalapril 1.25 mg IV. 3. Aspart insulin every 4 hours subcutaneously. 4. Glargine insulin 16 units at bedtime. 5. Atorvastatin 40 mg daily. 6. Keppra 1500 mg every 12 hours. 7. Lovenox 40 mg daily. 8. Dextrose and Glucagon as needed, the patient being n.p.o. because of inability to swallow well. PHYSICAL EXAMINATION GENERAL: A fair-skinned, obese, somewhat confused and slow white female lying in bed. She was init ially lying with her mouth open and mouth breathing supine with the head of her bed elevated 30 degr ees. NECK: Upon awakening, it was noted she did not have jugular venous distention. CHEST: Generally clear except for the left lower lobe. The breath sounds were somewhat decreased. HEART: Regular. No murmur. ABDOMEN: Obese and soft. No palpable organs or masses. EXTREMITIES: No edema, cyanosis or clubbing. INITIAL IMPRESSION: 1. Rule out line sepsis. 2. Probable ongoing intermittent aspiration. 3. Dysphagia. 4. Seizure disorder. 5. Hyperlipidemia. 6. [place] white matter microvascular disease. 7. Schizoaffective disorder. 8. Diabetes. I recommend drawing least 4 more blood cultures to hopefully get a total of 4 positive blood culture s for coagulase-negative staph or more because 2 are likely to be skin contamination. Also, I would continue the anti-aspiration measures including n.p.o. and of course consider G-tube, and perhaps i f possible to get at least 2 blood cultures from the PICC line. Dictated By: Jacky QUIROZ/NTS Conf#: [id number] DID#: [id number]
--- NOTE | 2017-01-10 07:25 | RADRPT ---
PROCEDURE: XR Chest. CLINICAL INDICATION: Pneumonia TECHNIQUE: A single AP view of the chest was obtained. COMPARISON: Chest x-ray dated 01/04/2017 FINDINGS: There is a right upper extremity PICC line with tip near the cavoatrial junction. There left lower lobe interstitial opacities. No pleural effusion or pneumothorax is seen. The car diomediastinal silhouette is within normal limits for size. The osseous structures are unremarkable . IMPRESSION: 1. Left lower lobe atelectasis versus pneumonitis, new finding when compared to the prior examinati on. 2. Right upper extremity PICC line with tip near the cavoatrial junction. RPTAT: HH .Mireya Lindsay MD, MD Date Time Electronically viewed and signed by .Mireya Lindsay MD, on 01/10/2017 07:25 .G/
[2017-01-10 07:44] LABS: BASOPHILS % 0.6 % (0.0-2.0); EOSINOPHILS # 0.1 10^3/ul (0.0-0.5); EOSINOPHILS % 1.2 % (0.0-7.0); HEMATOCRIT 27.2 % (37.0-47.0); HEMOGLOBIN 9.4 g/dl (12.0-16.0); LYMPHOCYTES # 1.9 10^3/ul (0.8-2.9); LYMPHOCYTES % 25.7 % (15.0-51.0); MEAN CORPUSCULAR HEMOGLOBIN 33.6 pg (29.0-33.0); MEAN CORPUSCULAR HGB CONC 34.6 g/dl (32.0-37.0); MEAN CORPUSCULAR VOLUME 97.1 fl (82.0-101.0); MEAN PLATELET VOLUME 8.5 fl (7.4-10.4); MONOCYTE # 0.2 10^3/ul (0.3-0.9); MONOCYTES % 2.5 % (0.0-11.0); NEUTROPHIL # 5.2 10^3/ul (1.6-7.5); PLATELET COUNT 604 10^3/UL (140-440); RED CELL DISTRIBUTION WIDTH 15.2 % (11.5-14.5); UNCORRECTED WBC 7.5 10^3/ul (4.8-10.8); WHITE BLOOD COUNT 7.5 10^3/ul (4.8-10.8)
[2017-01-10 08:03] LABS: CONDITION 1; LH ANALYZER COMMENTS 1
[2017-01-10 08:09] LABS: CHLORIDE 104 mmol/L (97-110); POTASSIUM 3.8 mmol/L (3.5-5.1); SODIUM 137 mmol/L (135-144)
[2017-01-10 08:12] LABS: ANION GAP 14 (8-16); BLOOD UREA NITROGEN < 2 mg/dl (7-20); CARBON DIOXIDE 23 mmol/L (21-31); CREATININE 0.47 mg/dl (0.44-1.00); GLUCOSE 251 mg/dl (70-220)
[2017-01-10 08:13] LABS: CALCIUM 7.9 mg/dl (8.4-10.2)
[2017-01-10] MEDS: LEVETIRACETAM IV 500 MG in DEXTROSE 5% 100 ML IVPB SCH ×2 (08:33→22:30)
[2017-01-10] MEDS: COLLAGENASE 30 GM TUBE TOP SCH (08:34)
[2017-01-10] MEDS: ENOXAPARIN 40 MG/0.4 ML SYG SC SCH (08:40)
--- NOTE | 2017-01-10 13:15 | PN ---
Date/Time of Note Date/Time of Note DATE: 01/10/17 TIME: 13:13 Assessment/Plan VTE Prophylaxis VTE Prophylaxis Intervention: LMWH Lines/Catheters IV Catheter Type (from Nrsg): PICC Line Central line still needed: Yes Urinary Cath still in place: Yes Reason Cath still needed: urinary retention Assessment/Plan Assessment/Plan 1. Tonic-clonic seizure. - per Dr. Lee in neurology - continue Keppra. - seizure precautions 2. Staph bacteremia. Continue vancomycin. Repeat blood cultures - per Dr. Coffman from infectious disease standpoint. 3. Schizophrenia and bipolar disorder- no acute issues reported. 4. Hypertension. Patient is currently normotensive. 5. Diabetes mellitus. - Glycemic control - Continue Lantus and NovoLog per sliding scale. 6. Dyslipidemia. Continue Crestor. 7. Dysphasia, patient failed swallow eval, continue IV fluids. - per Dr. Simpson is following in gastroenterology consultation, - plan for G-tube placement. 8. Sinus tachycardia was episodes of atrial tachycardia. - per Dr. Coronel from cardiology standpoint. Further recommendations based on clinical course. Lovenox for DVT prophylaxis. Plan of care discussed with Dr. Aly. Subjective 24 Hr Interval Summary Free Text/Dictation Alert, awake, c/o pain- generalized pain, scheduled for PEG placement today. dw staff. Constitutional: requiring IVF Eyes: no complaints ENT: no complaints Respiratory: no complaints Cardiovascular: no complaints Exam/Review of Systems Vital Signs Vitals Vital Signs Date Time Temp Pulse Resp B/P Pulse Ox O2 Delivery O2 Flow Rate FiO2 01/10/17 11:49 97.6 115 20 116/58 99 01/10/17 08:30 Nasal Cannula 3.0 Intake and Output 01/09/17 01/09/17 01/10/17 15:00 23:00 07:00 Intake Total 105 ml 750 ml 850 ml Output Total 650 ml 900 ml Balance 105 ml 100 ml -50 ml Exam Constitutional: alert, well developed Psych: nl mood/affect Head: atraumatic Eyes: EOMI, nl sclera ENMT: nl external ears & nose Neck: non-tender Respiratory: clear to auscultation Cardiovascular: nl pulses Gastrointestinal: non-tender, soft Musculoskeletal: muscle weakness Extremities: normal pulses Neurological: confused, nl speech, other (talks very little.) Skin: nl turgor Lymph: nontender Results Result Diagram: 01/10/17 0656 01/10/17 0656 Results 24 hrs Laboratory Tests Test 01/09/17 13:34 01/09/17 18:20 01/09/17 20:11 01/10/17 00:49 Bedside Glucose 82 106 105 154 Test 01/10/17 06:26 01/10/17 06:56 01/10/17 07:48 01/10/17 11:51 Bedside Glucose 224 H 235 H 165 Anion Gap 14 Basophils # 0.0 Basophils % 0.6 Blood Morphology Comment Blood Urea Nitrogen < 2 L Calcium Level 7.9 L Carbon Dioxide Level 23 Chloride Level 104 Creatinine 0.47 Eosinophils # 0.1 Eosinophils % 1.2 Glucose Level 251 #H Hematocrit 27.2 L Hemoglobin 9.4 L Lymphocytes # 1.9 Lymphocytes % 25.7 Mean Corpuscular Hemoglobin 33.6 H Mean Corpuscular Hemoglobin Concent 34.6 Mean Corpuscular Volume 97.1 Mean Platelet Volume 8.5 Monocytes # 0.2 L Monocytes % 2.5 Neutrophils # 5.2 Neutrophils % 70.0 Nucleated Red Blood Cells # 0.0 Nucleated Red Blood Cells % 0.0 Platelet Count 604 #H Potassium Level 3.8 Red Blood Count 2.80 L Red Cell Distribution Width 15.2 H Sodium Level 137 White Blood Count 7.5 # Medications Medications Current Medications Levetiracetam/ Dextrose (Keppra Iv/D5W) 105 ml @ 420 mls/hr Q12 IVPB Last administered on 01/10/17 08:33; Admin Dose 420 MLS/HR; Start 12/29/16 at 09:00 Acetaminophen (Tylenol Supp) 650 mg Q6H PRN [place] ELEVATED TEMPERATURE; Start at 02:30 Enoxaparin Sodium (Lovenox) 40 mg DAILY SC Last administered on 01/10/17 08:40 ; Admin Dose 40 MG; Start 12/29/16 at 09:00 Miscellaneous Information 1 ea NOTE XX ; Start 12/29/16 at 03:00 Glucose (Glutose) 15 gm Q15M PRN PO DECREASED GLUCOSE; Start 12/29/16 at 03:00 Glucose (Glutose) 22.5 gm Q15M PRN PO DECREASED GLUCOSE; Start 12/29/16 at 03: 00 Dextrose (D50w Syringe) 25 ml Q15M PRN IV DECREASED GLUCOSE Last administered on 01/09/17 05:16; Admin Dose 25 ML; Start 12/29/16 at 03:00 Dextrose (D50w Syringe) 50 ml Q15M PRN IV DECREASED GLUCOSE Last administered on 01/06/17 05:56; Admin Dose 50 ML; Start 12/29/16 at 03:00 Glucagon (Glucagen) 1 mg Q15M PRN IM DECREASED GLUCOSE; Start 12/29/16 at 03:00 Glucose (Glutose) 15 gm Q15M PRN BUCCAL DECREASED GLUCOSE; Start 12/29/16 at 03 :00 Atorvastatin Calcium (Lipitor) 40 mg DAILY@21 PO Last administered on 01/06/17 20:49; Admin Dose 40 MG; Start 12/31/16 at 21:00 Collagenase (Santyl) 1 applic DAILY TOP Last administered on 01/10/17 08:34; Admin Dose 1 APPLIC; Start 01/03/17 at 09:00 Insulin Glargine 16 unit 16 unit QHS SC Last administered on 01/09/17 20:46; Admin Dose 16 UNIT; Start 01/03/17 at 21:00 Potassium Chloride/Dextrose/ Sod Cl (D5-1/2ns + KCl 20 Meq) 1,000 ml @ 50 mls/ hr Q20H IV Last administered on 01/09/17 18:34; Admin Dose 50 MLS/HR; Start 01/04/17 at 08:00 Insulin Aspart (Novolog Insulin Pen) NOVOLOG *MILD* ALGORI... Q4 SC Last administered on 01/10/17 12:44; Admin Dose 1 UNIT; Start 01/04/17 at 13:00 Morphine Sulfate (morphine) 1 mg Q4H PRN IV PAIN LEVEL 7-10 Last administered on 01/10/17 00:41; Admin Dose 1 MG; Start 01/04/17 at 18:00 Enalaprilat (Vasotec Iv) 1.25 mg Q2 PRN IV ELEVATED BLOOD PRESSURE; Start at 23:30 Diltiazem HCl 30 mg 30 mg Q6 PO ; Start 01/07/17 at 18:00; Status Future Hold Vancomycin HCl/ Sodium Chloride (Vancocin/NS) 250 ml @ 83.333 mls/ hr Q24H IVPB Last administered on 01/09/17 20:45; Admin Dose 83.333 MLS/HR; Start at 22:00 Diltiazem HCl 5 mg 5 mg Q6 IV Last administered on 01/10/17 12:39; Admin Dose 5 MG; Start 01/08/17 at 19:30 Ceftriaxone Sodium (Rocephin) 50 ml @ 100 mls/hr Q24H IVPB Last administered on 01/09/17 18:34; Admin Dose 100 MLS/HR; Start 01/09/17 at 18:00 Miscellaneous Information (*Rx Drug Level Order Reminder*) 1 ONCE ONCE XX ; Start 01/10/17 at 21:00; Stop 01/10/17 at 21:01 MICHAEL COLINDRES Jan 10, 2017 13:15 MICHAEL COLINDRES Jan 10, 2017 13:15
--- NOTE | 2017-01-10 16:54 | CONS ---
Date/Time of Note Date/Time of Note DATE: 01/10/17 TIME: 16:52 Assessment/Plan Assessment/Plan Additional Assessment/Plan Seizure UTI Hypoglycemia Sinus tachycardia with episodes of atrial tachycardia Preserved ejection fraction Psychiatric disorder -Patient plan for PEG placement today. Continue IV Cardizem as blood pressure permits. Maintain potassium above 4.0 and magnesium above 2.0 Consultation Date/Type/Reason Admit Date/Time Dec 28, 2016 at 16:56 Initial Consult Date 12/30/16 Type of Consultation: cv Referring Provider: LUZMA HYMAN MD 24 HR Interval Summary Free Text/Dictation Patient seen and examined, going for PEG placement today Exam/Review of Systems Vital Signs Vitals Vital Signs Date Time Temp Pulse Resp B/P Pulse Ox O2 Delivery O2 Flow Rate FiO2 01/10/17 16:50 107 01/10/17 16:40 18 117/56 99 Nasal Cannula 2.0 01/10/17 16:28 98.4 Intake and Output 01/09/17 01/09/17 01/10/17 15:00 23:00 07:00 Intake Total 105 ml 750 ml 850 ml Output Total 650 ml 900 ml Balance 105 ml 100 ml -50 ml Exam Awake, follows some commands, moaning at times Head: normocephalic Respiratory: other (Coarse breath sounds bilaterally, no wheezing) Cardiovascular: other (S1-S2 heard), regular rate and rhythm Gastrointestinal: bowel sounds, non-tender, soft Extremities: edema Results Result Diagram: 01/10/17 0656 01/10/17 0656 Results 24 hrs Laboratory Tests Test 01/09/17 18:20 01/09/17 20:11 01/10/17 00:49 01/10/17 06:26 Bedside Glucose 106 105 154 224 H Test 01/10/17 06:56 01/10/17 07:48 01/10/17 11:51 Anion Gap 14 Basophils # 0.0 Basophils % 0.6 Blood Morphology Comment Blood Urea Nitrogen < 2 L Calcium Level 7.9 L Carbon Dioxide Level 23 Chloride Level 104 Creatinine 0.47 Eosinophils # 0.1 Eosinophils % 1.2 Glucose Level 251 #H Hematocrit 27.2 L Hemoglobin 9.4 L Lymphocytes # 1.9 Lymphocytes % 25.7 Mean Corpuscular Hemoglobin 33.6 H Mean Corpuscular Hemoglobin Concent 34.6 Mean Corpuscular Volume 97.1 Mean Platelet Volume 8.5 Monocytes # 0.2 L Monocytes % 2.5 Neutrophils # 5.2 Neutrophils % 70.0 Nucleated Red Blood Cells # 0.0 Nucleated Red Blood Cells % 0.0 Platelet Count 604 #H Potassium Level 3.8 Red Blood Count 2.80 L Red Cell Distribution Width 15.2 H Sodium Level 137 White Blood Count 7.5 # Bedside Glucose 235 H 165 Medications Medications Current Medications Levetiracetam/ Dextrose (Keppra Iv/D5W) 105 ml @ 420 mls/hr Q12 IVPB Last administered on 01/10/17 08:33; Admin Dose 420 MLS/HR; Start 12/29/16 at 09:00 Acetaminophen (Tylenol Supp) 650 mg Q6H PRN [place] ELEVATED TEMPERATURE; Start at 02:30 Enoxaparin Sodium (Lovenox) 40 mg DAILY SC Last administered on 01/10/17 08:40 ; Admin Dose 40 MG; Start 12/29/16 at 09:00 Miscellaneous Information 1 ea NOTE XX ; Start 12/29/16 at 03:00 Glucose (Glutose) 15 gm Q15M PRN PO DECREASED GLUCOSE; Start 12/29/16 at 03:00 Glucose (Glutose) 22.5 gm Q15M PRN PO DECREASED GLUCOSE; Start 12/29/16 at 03: 00 Dextrose (D50w Syringe) 25 ml Q15M PRN IV DECREASED GLUCOSE Last administered on 01/09/17 05:16; Admin Dose 25 ML; Start 12/29/16 at 03:00 Dextrose (D50w Syringe) 50 ml Q15M PRN IV DECREASED GLUCOSE Last administered on 01/06/17 05:56; Admin Dose 50 ML; Start 12/29/16 at 03:00 Glucagon (Glucagen) 1 mg Q15M PRN IM DECREASED GLUCOSE; Start 12/29/16 at 03:00 Glucose (Glutose) 15 gm Q15M PRN BUCCAL DECREASED GLUCOSE; Start 12/29/16 at 03 :00 Atorvastatin Calcium (Lipitor) 40 mg DAILY@21 PO Last administered on 01/06/17 20:49; Admin Dose 40 MG; Start 12/31/16 at 21:00 Collagenase (Santyl) 1 applic DAILY TOP Last administered on 01/10/17 08:34; Admin Dose 1 APPLIC; Start 01/03/17 at 09:00 Insulin Glargine 16 unit 16 unit QHS SC Last administered on 01/09/17 20:46; Admin Dose 16 UNIT; Start 01/03/17 at 21:00 Potassium Chloride/Dextrose/ Sod Cl (D5-1/2ns + KCl 20 Meq) 1,000 ml @ 50 mls/ hr Q20H IV Last administered on 01/09/17 18:34; Admin Dose 50 MLS/HR; Start 01/04/17 at 08:00 Insulin Aspart (Novolog Insulin Pen) NOVOLOG *MILD* ALGORI... Q4 SC Last administered on 01/10/17 12:44; Admin Dose 1 UNIT; Start 01/04/17 at 13:00 Morphine Sulfate (morphine) 1 mg Q4H PRN IV PAIN LEVEL 7-10 Last administered on 01/10/17 00:41; Admin Dose 1 MG; Start 01/04/17 at 18:00 Enalaprilat (Vasotec Iv) 1.25 mg Q2 PRN IV ELEVATED BLOOD PRESSURE; Start at 23:30 Diltiazem HCl 30 mg 30 mg Q6 PO ; Start 01/07/17 at 18:00; Status Future Hold Vancomycin HCl/ Sodium Chloride (Vancocin/NS) 250 ml @ 83.333 mls/ hr Q24H IVPB Last administered on 01/09/17 20:45; Admin Dose 83.333 MLS/HR; Start at 22:00 Diltiazem HCl 5 mg 5 mg Q6 IV Last administered on 01/10/17 12:39; Admin Dose 5 MG; Start 01/08/17 at 19:30 Ceftriaxone Sodium (Rocephin) 50 ml @ 100 mls/hr Q24H IVPB Last administered on 01/09/17 18:34; Admin Dose 100 MLS/HR; Start 01/09/17 at 18:00 Miscellaneous Information (*Rx Drug Level Order Reminder*) 1 ONCE ONCE XX ; Start 01/10/17 at 21:00; Stop 01/10/17 at 21:01 Gamal Coronel DO Jan 10, 2017 16:54
--- NOTE | 2017-01-10 17:07 | PN ---
DATE: 01/10/2017 SUBJECTIVE: No acute changes. The patient is lying comfortably in bed. She is afebrile, still tac hycardic with temperature 98.4, pulse 114, respirations 18, blood pressure 117/56, saturation 99 o n 2 liters. WBC 7.5, platelets 604, no shift, no bands. BUN 2, creatinine 0.47. ANTIMICROBIALS: 1. Vancomycin. 2. Rocephin. DIAGNOSTICS: Chest x-ray yesterday revealed left lower lobe atelectasis versus pneumonitis. INDWELLINGS: Shields, PICC line. PHYSICAL EXAMINATION: GENERAL: This is a fragile, chronically ill-appearing, middle-aged woman who is lying comfortably i n bed. HEENT: Head atraumatic, normocephalic. Sclerae anicteric. Buccal mucosa dry. NECK: Supple. CHEST: Rise symmetrical. Breath sounds diminished to bases. HEART: S1, S2, tachycardic. ABDOMEN: Soft, bowel tones present. EXTREMITIES: Bilateral edema. ASSESSMENT: 1. Sepsis with coagulase-negative bacteremia, fevers and tachycardia. 2. Right upper extremity PICC line inserted on 12/10/2016, possibly infected. 3. Pneumonia. 4. Aspiration syndrome with secretion retention. 5. Tachycardia. 6. Seizure disorder. 7. Diabetes. PLAN: The patient remains unchanged. Repeat blood cultures pending. She is being seen by multiple consultants. Plan for PEG placement once she is medically cleared and family agrees. Dictated By: MELODIE RAMIREZ [facility] for ALISSA LOWE/NTS Conf#: [id number] DID#: [id number]
[2017-01-10] MEDS ORDERED: PROPOFOL 40 ML ONE (17:13)
[2017-01-10] MEDS ORDERED: CEFAZOLIN 2 GM/50 ML (PMX) 50 ML IVPB ONE (17:13)
[2017-01-10] MEDS ORDERED: FENTAnyl 50 MCG/ML VIAL ONE (17:50)
--- NOTE | 2017-01-10 18:00 | GILP ---
DATE OF PROCEDURE: 01/10/2017 NAME OF PROCEDURE: Esophagogastroduodenoscopy, percutaneous endoscopic gastrostomy tube placement. PREOPERATIVE DIAGNOSIS: Patient presenting with history of difficulty in swallowing, malnutrition. Procedure at this time performed to create access for long-term nutritional support. POSTOPERATIVE DIAGNOSES: Patient presenting with history of difficulty in swallowing, malnutrition. Procedure at this time performed to create access for long-term nutritional support. DESCRIPTION OF PROCEDURE: After the informed written consent was obtained, the patient was asked to lie in the supine position. Intravenous anesthesia was given by anesthesiologist, ____. When the patient became somnolent, the Olympus video upper endoscope was introduced into the oropharynx, then into the esophagus. Esophagus appeared normal. Stomach appeared normal. Duodenum appeared no rmal. Endoscope at this time was withdrawn to the level of the gastric cavity. The anterior abdomi nal wall was prepared with Betadine and alcohol, 2 mL of 2% Xylocaine was infiltrated at the endosco pic illuminating site. A 5 mm incision was made at this site with the help of a scalpel. Through t he incision, trocar was inserted into the stomach. Stylet was removed. The guidewire was inserted through the trocar into the stomach and the guidewire was grabbed with a polypectomy snare and then it was brought out through the mouth along with the endoscope. To this end of the guidewire, a #20 Microvasive G-tube was tied in a loop fashion and then it was brought out through the abdominal wall incision. Retention bumper was placed over the G-tube close to the skin. Tapered end of the gastr ostomy tube was cut, the adapter was placed and the procedure was terminated. PLAN: Recommend starting G-tube feeding in a.m. Dictated By: ANTONY MACHADO/RUSTY Conf#: [id number] DID#: [id number] CC: ANTONY CLAYTON MD; LUZMA HYMAN MD;*EndCC*
[2017-01-10] MEDS: CEFTRIAXONE 1 GM/50 ML (PMX) 50 ML IVPB SCH (18:47)
[2017-01-10] MEDS: ATORVASTATIN 40 MG TAB PO SCH (22:29)
[2017-01-10] MEDS: INSULIN GLARGINE [LANtus] 3 ML PEN SC SCH (22:30)
[2017-01-10] MEDS: VANCOMYCIN 1.25 GM in SOD CHLORIDE 0.9% 250 ML IVPB SCH (22:40)
[2017-01-10] MEDS: D5W-0.45 NACL + KCL 20 MEQ 1,000 ML IV SCH (22:45)
[2017-01-11] VITALS (12 sets, daily range): BP systolic 118–138; BP diastolic 56–73; PULSE 91–124; RESP 17–19
[2017-01-11] MEDS: INSULIN ASPART [NOVOLOG] 3 ML PEN SC SCH ×5 (01:00→17:33)
[2017-01-11] MEDS: DILTIAZEM 25 MG INJ IV SCH (06:07)
[2017-01-11 07:33] LABS: ADD SCAN DIFF NO
[2017-01-11 07:43] LABS: BASOPHILS % 0.7 % (0.0-2.0); EOSINOPHILS # 0.3 10^3/ul (0.0-0.5); EOSINOPHILS % 4.4 % (0.0-7.0); HEMATOCRIT 26.5 % (37.0-47.0); HEMOGLOBIN 8.6 g/dl (12.0-16.0); LYMPHOCYTES # 1.9 10^3/ul (0.8-2.9); LYMPHOCYTES % 30.2 % (15.0-51.0); MEAN CORPUSCULAR HGB CONC 32.5 g/dl (32.0-37.0); MEAN CORPUSCULAR VOLUME 98.5 fl (82.0-101.0); MONOCYTE # 0.5 10^3/ul (0.3-0.9); MONOCYTES % 8.6 % (0.0-11.0); NEUTROPHIL # 3.4 10^3/ul (1.6-7.5); NEUTROPHILS % 55.3 % (39.0-77.0); PLATELET COUNT 480 10^3/UL (140-415); RED BLOOD COUNT 2.69 10^6/ul (4.20-5.40); WHITE BLOOD COUNT 6.1 10^3/ul (4.8-10.8)
[2017-01-11 08:14] LABS: POTASSIUM 3.7 mmol/L (3.5-5.1)
[2017-01-11 08:17] LABS: CREATININE 0.46 mg/dl (0.44-1.00)
[2017-01-11 08:18] LABS: CALCIUM 8.1 mg/dl (8.4-10.2)
[2017-01-11] MEDS: COLLAGENASE 30 GM TUBE TOP SCH (09:00)
[2017-01-11] MEDS: ENOXAPARIN 40 MG/0.4 ML SYG SC SCH (09:14)
[2017-01-11] MEDS: LEVETIRACETAM IV 500 MG in DEXTROSE 5% 100 ML IVPB SCH ×2 (09:33→21:58)
--- NOTE | 2017-01-11 11:24 | CONS ---
Date/Time of Note Date/Time of Note DATE: 01/11/17 TIME: 11:20 Assessment/Plan Assessment/Plan Additional Assessment/Plan Seizure UTI Hypoglycemia Sinus tachycardia with episodes of atrial tachycardia Preserved ejection fraction Psychiatric disorder -Patient status post PEG placement. Switch Cardizem to via NG tube. Maintain potassium above 4.0 and magnesium above 2.0 Consultation Date/Type/Reason Admit Date/Time Dec 28, 2016 at 16:56 Initial Consult Date 12/30/16 Type of Consultation: cv Referring Provider: LUZMA HYMAN MD 24 HR Interval Summary Free Text/Dictation Patient status post PEG. Exam/Review of Systems Vital Signs Vitals Vital Signs Date Time Temp Pulse Resp B/P Pulse Ox O2 Delivery O2 Flow Rate FiO2 01/11/17 08:21 97.9 116 18 130/60 97 01/10/17 20:00 Nasal Cannula 3.0 Intake and Output 01/10/17 01/10/17 01/11/17 15:00 23:00 07:00 Intake Total 1430 ml Output Total 300 ml 800 ml Balance -300 ml 630 ml Exam Follow some commands, moaning at times Constitutional: alert Head: normocephalic Respiratory: other (Coarse breath sounds bilaterally, no wheezing) Cardiovascular: other (S1-S2 heard), regular rate and rhythm Gastrointestinal: bowel sounds, non-tender, other (No guarding), soft Extremities: edema (Trace) Results Result Diagram: 01/11/17 0640 01/11/17 0640 Results 24 hrs Laboratory Tests Test 01/10/17 11:51 01/10/17 21:04 01/10/17 22:27 01/11/17 06:04 Bedside Glucose 165 272 H 157 Vancomycin Level Trough 13.4 Test 01/11/17 06:40 01/11/17 09:07 Anion Gap 15 Basophils # 0.0 Basophils % 0.7 Blood Urea Nitrogen 3 L Calcium Level 8.1 L Carbon Dioxide Level 25 Chloride Level 103 Creatinine 0.46 Eosinophils # 0.3 Eosinophils % 4.4 Glucose Level 121 # Hematocrit 26.5 L Hemoglobin 8.6 L Lymphocytes # 1.9 Lymphocytes % 30.2 Magnesium Level 1.5 L Mean Corpuscular Hemoglobin 32.0 Mean Corpuscular Hemoglobin Concent 32.5 Mean Corpuscular Volume 98.5 Mean Platelet Volume 10.0 Monocytes # 0.5 Monocytes % 8.6 Neutrophils # 3.4 Neutrophils % 55.3 Nucleated Red Blood Cells # 0.0 Nucleated Red Blood Cells % 0.0 Platelet Count 480 H Potassium Level 3.7 Red Blood Count 2.69 L Red Cell Distribution Width 14.0 Sodium Level 139 White Blood Count 6.1 Bedside Glucose 111 Medications Medications Current Medications Levetiracetam/ Dextrose (Keppra Iv/D5W) 105 ml @ 420 mls/hr Q12 IVPB Last administered on 01/11/17 09:33; Admin Dose 420 MLS/HR; Start 12/29/16 at 09:00 Acetaminophen (Tylenol Supp) 650 mg Q6H PRN [place] ELEVATED TEMPERATURE; Start at 02:30 Enoxaparin Sodium (Lovenox) 40 mg DAILY SC Last administered on 01/11/17 09:14 ; Admin Dose 40 MG; Start 12/29/16 at 09:00 Miscellaneous Information 1 ea NOTE XX ; Start 12/29/16 at 03:00 Glucose (Glutose) 15 gm Q15M PRN PO DECREASED GLUCOSE; Start 12/29/16 at 03:00 Glucose (Glutose) 22.5 gm Q15M PRN PO DECREASED GLUCOSE; Start 12/29/16 at 03: 00 Dextrose (D50w Syringe) 25 ml Q15M PRN IV DECREASED GLUCOSE Last administered on 01/09/17 05:16; Admin Dose 25 ML; Start 12/29/16 at 03:00 Dextrose (D50w Syringe) 50 ml Q15M PRN IV DECREASED GLUCOSE Last administered on 01/06/17 05:56; Admin Dose 50 ML; Start 12/29/16 at 03:00 Glucagon (Glucagen) 1 mg Q15M PRN IM DECREASED GLUCOSE; Start 12/29/16 at 03:00 Glucose (Glutose) 15 gm Q15M PRN BUCCAL DECREASED GLUCOSE; Start 12/29/16 at 03 :00 Atorvastatin Calcium (Lipitor) 40 mg DAILY@21 PO Last administered on 01/10/17 22:29; Admin Dose 40 MG; Start 12/31/16 at 21:00 Collagenase (Santyl) 1 applic DAILY TOP Last administered on 01/10/17 08:34; Admin Dose 1 APPLIC; Start 01/03/17 at 09:00 Insulin Glargine 16 unit 16 unit QHS SC Last administered on 01/10/17 22:30; Admin Dose 16 UNIT; Start 01/03/17 at 21:00 Potassium Chloride/Dextrose/ Sod Cl (D5-1/2ns + KCl 20 Meq) 1,000 ml @ 50 mls/ hr Q20H IV Last administered on 01/10/17 22:45; Admin Dose 50 MLS/HR; Start 01/04/17 at 08:00 Insulin Aspart (Novolog Insulin Pen) NOVOLOG *MILD* ALGORI... Q4 SC Last administered on 01/11/17 05:00; Admin Dose 1 UNIT; Start 01/04/17 at 13:00 Enalaprilat (Vasotec Iv) 1.25 mg Q2 PRN IV ELEVATED BLOOD PRESSURE; Start at 23:30 Diltiazem HCl 30 mg 30 mg Q6 PO ; Start 01/07/17 at 18:00; Status Future Hold Vancomycin HCl/ Sodium Chloride (Vancocin/NS) 250 ml @ 83.333 mls/ hr Q24H IVPB Last administered on 01/10/17 22:40; Admin Dose 83.333 MLS/HR; Start at 22:00 Diltiazem HCl 5 mg 5 mg Q6 IV Last administered on 01/11/17 06:07; Admin Dose 5 MG; Start 01/08/17 at 19:30 Ceftriaxone Sodium (Rocephin) 50 ml @ 100 mls/hr Q24H IVPB Last administered on 01/10/17 18:47; Admin Dose 100 MLS/HR; Start 01/09/17 at 18:00 Morphine Sulfate (morphine) 2 mg Q4H PRN IV PAIN LEVEL 7-10 Last administered on 01/10/17 22:28; Admin Dose 2 MG; Start 01/10/17 at 22:00 Gamal Coronel DO Jan 11, 2017 11:24
[2017-01-11] MEDS ORDERED: POTASSIUM CHLORIDE 20 MEQ POWDER FOR ORAL SOLN GTB ONE (11:30)
[2017-01-11] MEDS: morphine 2 MG INJ IV PRN (12:25)
[2017-01-11] MEDS ORDERED: MAGNESIUM SULFATE 3 GM in SOD CHLORIDE 0.9% 100 ML IVPB ONE (13:00)
--- NOTE | 2017-01-11 13:02 | PN ---
Date/Time of Note Date/Time of Note DATE: 01/11/17 TIME: 12:59 Assessment/Plan VTE Prophylaxis VTE Prophylaxis Intervention: SCD's Lines/Catheters IV Catheter Type (from Nrs): PICC Line Central line still needed: Yes Urinary Cath still in place: Yes Reason Cath still needed: urinary retention Assessment/Plan Chief Complaint/Hosp Course Assessment and plan: 1. Tonic-clonic seizure. Patient is followed by Dr. Lee in neurology, continue Keppra. 2. Staph bacteremia. Continue vancomycin. Repeat blood cultures. Dr. Coffman will be following from infectious disease standpoint. 3. Schizophrenia and bipolar disorder. 4. Hypertension. Patient is currently normotensive. 5. Diabetes mellitus. Continue Lantus and NovoLog with meals. 6. Dyslipidemia. Continue Crestor. 7. Dysphasia, patient failed swallow eval, continue IV fluids. Dr. Mcarthur is following in gastroenterology consultation, s/p G-tube placement yesterday, started on GT feeding today, continue to monitor residual. 8. Sinus tachycardia was episodes of atrial tachycardia. Dr. Coronel is following from cardiology standpoint. Further recommendations based on clinical course. Plan of care discussed with Dr. Aly. Problems: Subjective 24 Hr Interval Summary Free Text/Dictation S/p G tube placement, no fever. Exam/Review of Systems Vital Signs Vitals Vital Signs Date Time Temp Pulse Resp B/P Pulse Ox O2 Delivery O2 Flow Rate FiO2 01/11/17 12:14 124 01/11/17 11:57 98.4 18 138/58 96 01/10/17 20:00 Nasal Cannula 3.0 Intake and Output 01/10/17 01/10/17 01/11/17 15:00 23:00 07:00 Intake Total 1430 ml Output Total 300 ml 800 ml Balance -300 ml 630 ml Exam GENERAL: Awake alert HEENT: Atraumatic, normocephalic. NECK: Supple. No masses or thyromegaly. CHEST: Lung sounds clear bilaterally CARDIOVASCULAR: Regular rate and rhythm. S1, S2 normal. No murmur, gallop, or rub. ABDOMEN: Soft, nondistended, nontender. Bowel sounds plus. EXTREMITIES: No leg edema. NEUROLOGIC: Awake alert and oriented to name and situation. SKIN: Without acute rash. No clubbing or cyanosis. Results Result Diagram: 01/11/1740 01/11/1740 Results 24 hrs Laboratory Tests Test 01/10/17 21:04 01/10/17 22:27 01/11/17 06:04 01/11/17 06:40 Vancomycin Level Trough 13.4 Bedside Glucose 272 H 157 Anion Gap 15 Basophils # 0.0 Basophils % 0.7 Blood Urea Nitrogen 3 L Calcium Level 8.1 L Carbon Dioxide Level 25 Chloride Level 103 Creatinine 0.46 Eosinophils # 0.3 Eosinophils % 4.4 Glucose Level 121 # Hematocrit 26.5 L Hemoglobin 8.6 L Lymphocytes # 1.9 Lymphocytes % 30.2 Magnesium Level 1.5 L Mean Corpuscular Hemoglobin 32.0 Mean Corpuscular Hemoglobin Concent 32.5 Mean Corpuscular Volume 98.5 Mean Platelet Volume 10.0 Monocytes # 0.5 Monocytes % 8.6 Neutrophils # 3.4 Neutrophils % 55.3 Nucleated Red Blood Cells # 0.0 Nucleated Red Blood Cells % 0.0 Platelet Count 480 H Potassium Level 3.7 Red Blood Count 2.69 L Red Cell Distribution Width 14.0 Sodium Level 139 White Blood Count 6.1 Test 01/11/17 09:07 01/11/17 12:12 Bedside Glucose 111 115 Medications Medications Current Medications Levetiracetam/ Dextrose (Keppra Iv/D5W) 105 ml @ 420 mls/hr Q12 IVPB Last administered on 01/11/17 09:33; Admin Dose 420 MLS/HR; Start 12/29/16 at 09:00 Acetaminophen (Tylenol Supp) 650 mg Q6H PRN [place] ELEVATED TEMPERATURE; Start at 02:30 Enoxaparin Sodium (Lovenox) 40 mg DAILY SC Last administered on 01/11/17 09:14 ; Admin Dose 40 MG; Start 12/29/16 at 09:00 Miscellaneous Information 1 ea NOTE XX ; Start 12/29/16 at 03:00 Glucose (Glutose) 15 gm Q15M PRN PO DECREASED GLUCOSE; Start 12/29/16 at 03:00 Glucose (Glutose) 22.5 gm Q15M PRN PO DECREASED GLUCOSE; Start 12/29/16 at 03: 00 Dextrose (D50w Syringe) 25 ml Q15M PRN IV DECREASED GLUCOSE Last administered on 01/09/17 05:16; Admin Dose 25 ML; Start 12/29/16 at 03:00 Dextrose (D50w Syringe) 50 ml Q15M PRN IV DECREASED GLUCOSE Last administered on 01/06/17 05:56; Admin Dose 50 ML; Start 12/29/16 at 03:00 Glucagon (Glucagen) 1 mg Q15M PRN IM DECREASED GLUCOSE; Start 12/29/16 at 03:00 Glucose (Glutose) 15 gm Q15M PRN BUCCAL DECREASED GLUCOSE; Start 12/29/16 at 03 :00 Atorvastatin Calcium (Lipitor) 40 mg DAILY@21 PO Last administered on 01/10/17 22:29; Admin Dose 40 MG; Start 12/31/16 at 21:00 Collagenase (Santyl) 1 applic DAILY TOP Last administered on 01/10/17 08:34; Admin Dose 1 APPLIC; Start 01/03/17 at 09:00 Insulin Glargine 16 unit 16 unit QHS SC Last administered on 01/10/17 22:30; Admin Dose 16 UNIT; Start 01/03/17 at 21:00 Potassium Chloride/Dextrose/ Sod Cl (D5-1/2ns + KCl 20 Meq) 1,000 ml @ 50 mls/ hr Q20H IV Last administered on 01/10/17 22:45; Admin Dose 50 MLS/HR; Start 01/04/17 at 08:00 Insulin Aspart (Novolog Insulin Pen) NOVOLOG *MILD* ALGORI... Q4 SC Last administered on 01/11/17 05:00; Admin Dose 1 UNIT; Start 01/04/17 at 13:00 Enalaprilat (Vasotec Iv) 1.25 mg Q2 PRN IV ELEVATED BLOOD PRESSURE; Start at 23:30 Diltiazem HCl 30 mg 30 mg Q6 PO ; Start 01/07/17 at 18:00; Status Future Hold Vancomycin HCl 1.25 gm/Sodium Chloride 250 ml @ 83.333 mls/ hr Q24H IVPB Last administered on 01/10/17 22:40; Admin Dose 83.333 MLS/HR; Start 01/07/17 at 22:00 Ceftriaxone Sodium (Rocephin) 50 ml @ 100 mls/hr Q24H IVPB Last administered on 01/10/17 18:47; Admin Dose 100 MLS/HR; Start 01/09/17 at 18:00 Morphine Sulfate (morphine) 2 mg Q4H PRN IV PAIN LEVEL 7-10 Last administered on 01/11/17t 12:25; Admin Dose 2 MG; Start 01/10/17 at 22:00 Diltiazem HCl 60 mg 60 mg Q8 NGT ; Start 01/11/17 at 14:00 Magnesium Sulfate/ Sodium Chloride (Magnesium Sulfate/NS) 106 ml @ 35.333 mls/ hr ONCE ONCE IVPB ; Start 01/11/17 at 13:00; Stop 01/11/17 at 15:59 DENA SALGUERO Jan 11, 2017 13:02
[2017-01-11] MEDS: DILTIAZEM 60 MG TAB NGT SCH ×2 (14:46→22:02)
--- NOTE | 2017-01-11 16:51 | PN ---
DATE: 01/11/2017 INFECTIOUS DISEASE PROGRESS NOTE SUBJECTIVE: No acute events overnight. No fevers. The patient is lying comfortably in bed. She i s still tachycardic. VITAL SIGNS: T-max yesterday was 100.8, T-current 98.4. LABORATORY DATA: WBC 6.1, platelets 480, no shift, no bands. BUN 3, creatinine 0.46. MICROBIOLOGY: Repeat blood cultures preliminary negative. INDWELLINGS: Shields, PICC line. ANTIMICROBIALS: 1. Vancomycin. 2. Rocephin. OBJECTIVE: GENERAL: Fragile, chronically ill-appearing, middle-aged woman who is lying comfortably in bed. HEENT: Head atraumatic, normocephalic. Sclerae anicteric. Buccal mucosa dry. NECK: Supple, trachea midline. CHEST: Rise symmetrical. Breath sounds diminished to bases. HEART: S1, S2. ABDOMEN: Soft, bowel sounds present. EXTREMITIES: Without cyanosis. ASSESSMENT: 1. Sepsis. 2. Coagulase-negative Staphylococcus bacteremia, possibly secondary to lines, possibly contaminant. So far, repeat blood cultures negative. 3. Aspiration and healthcare-associated pneumonia. 4. Dysphagia status post percutaneous endoscopic gastrostomy yesterday. 5. Urinary tract infection per urinalysis on admission. 6. Diabetes. 7. Seizure disorder. PLAN: The patient remains stable, however still tachycardic and status post low grade fever yesterd ay. We are going to change Rocephin to Zosyn. Continue vancomycin to complete treatment for bacter emia. Continue anti-aspiration measures, GI recommendations. Dictated By: MELODIE RAMIREZ [employer] M[employer] OPERATOR for ALISSA LOWE/RUSTY Conf#: [id number] DID#: [id number]
[2017-01-11] MEDS: INSULIN GLARGINE [LANtus] 3 ML PEN SC SCH (21:00)
[2017-01-11] MEDS: NS + KCL 20 MEQ 1,000 ML IV SCH (21:59)
[2017-01-11] MEDS: ATORVASTATIN 40 MG TAB PO SCH (22:00)
[2017-01-11] MEDS: VANCOMYCIN 1.25 GM in SOD CHLORIDE 0.9% 250 ML IVPB SCH (22:02)
[2017-01-11] MEDS: PIPER-TAZO 3.375 GM IV (PMX) 100 ML IVPB SCH (22:02)
[2017-01-12] VITALS (13 sets, daily range): BP systolic 115–147; BP diastolic 57–75; PULSE 87–122; RESP 16–19
[2017-01-12] MEDS: PIPER-TAZO 3.375 GM IV (PMX) 100 ML IVPB SCH ×3 (06:55→22:27)
[2017-01-12] MEDS: DILTIAZEM 60 MG TAB NGT SCH ×3 (06:55→21:35)
[2017-01-12] MEDS: INSULIN ASPART [NOVOLOG] 3 ML PEN SC SCH ×4 (06:58→17:39)
[2017-01-12 08:08] LABS: BASOPHILS % 0.5 % (0.0-2.0); EOSINOPHILS # 0.2 10^3/ul (0.0-0.5); EOSINOPHILS % 4.7 % (0.0-7.0); HEMATOCRIT 25.8 % (37.0-47.0); HEMOGLOBIN 8.7 g/dl (12.0-16.0); LYMPHOCYTES # 1.5 10^3/ul (0.8-2.9); LYMPHOCYTES % 37.6 % (15.0-51.0); MEAN CORPUSCULAR HEMOGLOBIN 32.9 pg (29.0-33.0); MEAN CORPUSCULAR HGB CONC 33.8 g/dl (32.0-37.0); MEAN CORPUSCULAR VOLUME 97.2 fl (82.0-101.0); MEAN PLATELET VOLUME 7.9 fl (7.4-10.4); MONOCYTE # 0.3 10^3/ul (0.3-0.9); MONOCYTES % 7.7 % (0.0-11.0); NEUTROPHILS % 49.5 % (39.0-77.0); PLATELET COUNT 479 10^3/UL (140-440); RED BLOOD COUNT 2.66 10^6/ul (4.20-5.40); RED CELL DISTRIBUTION WIDTH 14.9 % (11.5-14.5); UNCORRECTED WBC 4.1 10^3/ul (4.8-10.8); WHITE BLOOD COUNT 4.1 10^3/ul (4.8-10.8)
[2017-01-12 08:09] LABS: POTASSIUM 4.3 mmol/L (3.5-5.1)
[2017-01-12 08:12] LABS: CREATININE 0.51 mg/dl (0.44-1.00)
[2017-01-12 08:13] LABS: CALCIUM 7.8 mg/dl (8.4-10.2)
[2017-01-12 08:15] LABS: CONDITION 1; LH ANALYZER COMMENTS 1
[2017-01-12] MEDS: COLLAGENASE 30 GM TUBE TOP SCH (09:00)
[2017-01-12] MEDS: morphine 2 MG INJ IV PRN (09:44)
[2017-01-12] MEDS: LEVETIRACETAM IV 500 MG in DEXTROSE 5% 100 ML IVPB SCH ×2 (09:44→21:03)
[2017-01-12] MEDS: ENOXAPARIN 40 MG/0.4 ML SYG SC SCH (09:56)
--- NOTE | 2017-01-12 09:57 | PN ---
Date/Time of Note Date/Time of Note DATE: 01/12/17 TIME: 09:56 Assessment/Plan VTE Prophylaxis VTE Prophylaxis Intervention: SCD's Lines/Catheters IV Catheter Type (from Nrs): PICC Line Central line still needed: No Urinary Cath still in place: Yes Reason Cath still needed: urinary retention Assessment/Plan Chief Complaint/Hosp Course Seizure UTI Hypoglycemia Sinus tachycardia with episodes of atrial tachycardia Preserved ejection fraction Psychiatric disorder -Patient status post PEG placement. -COntinue Cardizem to via NG tube. Maintain potassium above 4.0 and magnesium above 2.0 If recurrecne may start amio and may even conssdier EPS evaulation if becomes necessary Problems: Subjective 24 Hr Interval Summary Free Text/Dictation the patient with no comapolaints Exam/Review of Systems Vital Signs Vitals Vital Signs Date Time Temp Pulse Resp B/P Pulse Ox O2 Delivery O2 Flow Rate FiO2 01/12/17 08:42 99.2 109 16 147/64 97 01/12/17 00:37 1.0 01/11/17 20:00 Nasal Cannula Intake and Output 01/11/17 01/11/17 01/12/17 15:00 23:00 07:00 Intake Total 1280 ml 2030 ml Output Total 650 ml 800 ml Balance 630 ml 1230 ml Results Result Diagram: 01/12/17 0742 01/12/17 0742 Results 24 hrs Laboratory Tests Test 01/11/17 12:12 01/11/17 17:25 01/12/17 06:20 01/12/17 07:42 Bedside Glucose 115 80 266 H Anion Gap 11 Basophils # 0.0 Basophils % 0.5 Blood Morphology Comment Blood Urea Nitrogen 4 L Calcium Level 7.8 L Carbon Dioxide Level 29 Chloride Level 101 Creatinine 0.51 Eosinophils # 0.2 Eosinophils % 4.7 Glucose Level 262 #H Hematocrit 25.8 L Hemoglobin 8.7 L Lymphocytes # 1.5 Lymphocytes % 37.6 Mean Corpuscular Hemoglobin 32.9 Mean Corpuscular Hemoglobin Concent 33.8 Mean Corpuscular Volume 97.2 Mean Platelet Volume 7.9 # Monocytes # 0.3 Monocytes % 7.7 Neutrophils # 2.0 Neutrophils % 49.5 Nucleated Red Blood Cells # 0.0 Nucleated Red Blood Cells % 0.0 Platelet Count 479 #H Potassium Level 4.3 Red Blood Count 2.66 L Red Cell Distribution Width 14.9 H Sodium Level 137 White Blood Count 4.1 #L Medications Medications Current Medications Levetiracetam/ Dextrose (Keppra Iv/D5W) 105 ml @ 420 mls/hr Q12 IVPB Last administered on 01/11/17 21:58; Admin Dose 420 MLS/HR; Start 12/29/16 at 09:00 Acetaminophen (Tylenol Supp) 650 mg Q6H PRN [place] ELEVATED TEMPERATURE; Start at 02:30 Enoxaparin Sodium (Lovenox) 40 mg DAILY SC Last administered on 01/11/17 09:14 ; Admin Dose 40 MG; Start 12/29/16 at 09:00 Miscellaneous Information 1 ea NOTE XX ; Start 12/29/16 at 03:00 Glucose (Glutose) 15 gm Q15M PRN PO DECREASED GLUCOSE; Start 12/29/16 at 03:00 Glucose (Glutose) 22.5 gm Q15M PRN PO DECREASED GLUCOSE; Start 12/29/16 at 03: 00 Dextrose (D50w Syringe) 25 ml Q15M PRN IV DECREASED GLUCOSE Last administered on 01/09/17 05:16; Admin Dose 25 ML; Start 12/29/16 at 03:00 Dextrose (D50w Syringe) 50 ml Q15M PRN IV DECREASED GLUCOSE Last administered on 01/06/17 05:56; Admin Dose 50 ML; Start 12/29/16 at 03:00 Glucagon (Glucagen) 1 mg Q15M PRN IM DECREASED GLUCOSE; Start 12/29/16 at 03:00 Glucose (Glutose) 15 gm Q15M PRN BUCCAL DECREASED GLUCOSE; Start 12/29/16 at 03 :00 Atorvastatin Calcium (Lipitor) 40 mg DAILY@21 PO Last administered on 22:00; Admin Dose 40 MG; Start 12/31/16 at 21:00 Collagenase (Santyl) 1 applic DAILY TOP Last administered on 01/10/17 08:34; Admin Dose 1 APPLIC; Start 01/03/17 at 09:00 Insulin Glargine (Lantus) 16 unit QHS SC Last administered on 01/10/17 22:30; Admin Dose 16 UNIT; Start 01/03/17 at 21:00 Enalaprilat (Vasotec Iv) 1.25 mg Q2 PRN IV ELEVATED BLOOD PRESSURE; Start at 23:30 Diltiazem HCl 30 mg 30 mg Q6 PO ; Start 01/07/17 at 18:00; Status Future Hold Vancomycin HCl/ Sodium Chloride (Vancocin/NS) 250 ml @ 83.333 mls/ hr Q24H IVPB Last administered on 01/11/17 22:02; Admin Dose 83.333 MLS/HR; Start 01/07 at 22:00 Morphine Sulfate (morphine) 2 mg Q4H PRN IV PAIN LEVEL 7-10 Last administered on 01/11/17 12:25; Admin Dose 2 MG; Start 01/10/17 at 22:00 Diltiazem HCl (Cardizem) 60 mg Q8 NGT Last administered on 01/12/17 06:55; Admin Dose 60 MG; Start 01/11/17 at 14:00 Insulin Aspart NOVOLOG *MILD* ALGORI... Q6 SC Last administered on 01/12/17 06 :58; Admin Dose 3 UNIT; Start 01/11/17 at 18:00 Piperacillin Sod/ Tazobactam Sod 100 ml @ 200 mls/hr Q8 IVPB Last administered on 01/12/17 06:55; Admin Dose 200 MLS/HR; Start 01/11/17 at 22:00 Potassium Chloride/Sodium Chloride (NS-KCl 20 Meq) 1,000 ml @ 50 mls/hr Q20H IV Last administered on 01/11/17 21:59; Admin Dose 50 MLS/HR; Start 01/11/17 at 21:30 TAMARA JUNIOR MD Jan 12, 2017 09:57
--- NOTE | 2017-01-12 10:42 | CONS ---
Date/Time of Note Date/Time of Note DATE: 01/12/17 TIME: 10:42 Assessment/Plan Assessment/Plan Chief Complaint/Hosp Course ID PROGRESS NOTE TOTAL ABX DAY # Vanco IV + Zosyn 24H INTERVAL SUMMARY * Awake, eyes open, seems to understand and moans yes after I tell her I'm here to check on her PHYSICAL EXAMINATION: GENERAL: VSS, NAD HEENT: Unremarkable NECK: Trach midline CHEST: Rise symmetrical - without dyspnea on observation HEART: RRR ABDOMEN: Soft, EXTREMITIES: Warm, ID ASSESSMENT: 56 yo F w/PMHx TIA, Seizure disorder, Psych Dx Schizophrenia + BiPolar admit with: 1. Sepsis. 2. Coagulase-negative Staphylococcus bacteremia, possibly secondary to lines, possibly contaminant. So far, repeat blood cultures negative. 3. Aspiration and healthcare-associated pneumonia. 4. Dysphagia status post percutaneous endoscopic gastrostomy yesterday. 5. Urinary tract infection per urinalysis on admission. 6. Diabetes. 7. Seizure disorder. (-)MRSA Nares INVASIVES: *PIV ABX ALLERGIES: KNDA CURRENT ABX: Vanco IV + Zosyn ID RECOMMENDATIONS: Continue ABX for concern ASP PNA . Problems: Consultation Date/Type/Reason Admit Date/Time Dec 28, 2016 at 16:56 Initial Consult Date 12/30/16 Type of Consultation: ID Referring Provider: LUZMA HYMAN MD Exam/Review of Systems Vital Signs Vitals Vital Signs Date Time Temp Pulse Resp B/P Pulse Ox O2 Delivery O2 Flow Rate FiO2 01/12/17 08:42 99.2 109 16 147/64 97 01/12/17 00:37 1.0 01/11/17 20:00 Nasal Cannula Intake and Output 01/11/17 01/11/17 01/12/17 15:00 23:00 07:00 Intake Total 1280 ml 2030 ml Output Total 650 ml 800 ml Balance 630 ml 1230 ml Results Result Diagram: 01/12/17 0742 01/12/17 0742 Results 24 hrs Laboratory Tests Test 01/11/17 12:12 01/11/17 17:25 01/12/17 06:20 01/12/17 07:42 Bedside Glucose 115 80 266 H Anion Gap 11 Basophils # 0.0 Basophils % 0.5 Blood Morphology Comment Blood Urea Nitrogen 4 L Calcium Level 7.8 L Carbon Dioxide Level 29 Chloride Level 101 Creatinine 0.51 Eosinophils # 0.2 Eosinophils % 4.7 Glucose Level 262 #H Hematocrit 25.8 L Hemoglobin 8.7 L Lymphocytes # 1.5 Lymphocytes % 37.6 Mean Corpuscular Hemoglobin 32.9 Mean Corpuscular Hemoglobin Concent 33.8 Mean Corpuscular Volume 97.2 Mean Platelet Volume 7.9 # Monocytes # 0.3 Monocytes % 7.7 Neutrophils # 2.0 Neutrophils % 49.5 Nucleated Red Blood Cells # 0.0 Nucleated Red Blood Cells % 0.0 Platelet Count 479 #H Potassium Level 4.3 Red Blood Count 2.66 L Red Cell Distribution Width 14.9 H Sodium Level 137 White Blood Count 4.1 #L Medications Medications Current Medications Levetiracetam/ Dextrose (Keppra Iv/D5W) 105 ml @ 420 mls/hr Q12 IVPB Last administered on 01/12/17 09:44; Admin Dose 420 MLS/HR; Start 12/29/16 at 09:00 Acetaminophen (Tylenol Supp) 650 mg Q6H PRN [place] ELEVATED TEMPERATURE; Start at 02:30 Enoxaparin Sodium (Lovenox) 40 mg DAILY SC Last administered on 01/12/17 09:56 ; Admin Dose 40 MG; Start 12/29/16 at 09:00 Miscellaneous Information 1 ea NOTE XX ; Start 12/29/16 at 03:00 Glucose (Glutose) 15 gm Q15M PRN PO DECREASED GLUCOSE; Start 12/29/16 at 03:00 Glucose (Glutose) 22.5 gm Q15M PRN PO DECREASED GLUCOSE; Start 12/29/16 at 03: 00 Dextrose (D50w Syringe) 25 ml Q15M PRN IV DECREASED GLUCOSE Last administered on 01/09/17 05:16; Admin Dose 25 ML; Start 12/29/16 at 03:00 Dextrose (D50w Syringe) 50 ml Q15M PRN IV DECREASED GLUCOSE Last administered on 01/06/17 05:56; Admin Dose 50 ML; Start 12/29/16 at 03:00 Glucagon (Glucagen) 1 mg Q15M PRN IM DECREASED GLUCOSE; Start 12/29/16 at 03:00 Glucose (Glutose) 15 gm Q15M PRN BUCCAL DECREASED GLUCOSE; Start 12/29/16 at 03 :00 Atorvastatin Calcium (Lipitor) 40 mg DAILY@21 PO Last administered on 22:00; Admin Dose 40 MG; Start 12/31/16 at 21:00 Collagenase (Santyl) 1 applic DAILY TOP Last administered on 01/10/17 08:34; Admin Dose 1 APPLIC; Start 01/03/17 at 09:00 Insulin Glargine (Lantus) 16 unit QHS SC Last administered on 01/10/17 22:30; Admin Dose 16 UNIT; Start 01/03/17 at 21:00 Enalaprilat (Vasotec Iv) 1.25 mg Q2 PRN IV ELEVATED BLOOD PRESSURE; Start at 23:30 Diltiazem HCl 30 mg 30 mg Q6 PO ; Start 01/07/17 at 18:00; Status Future Hold Vancomycin HCl/ Sodium Chloride (Vancocin/NS) 250 ml @ 83.333 mls/ hr Q24H IVPB Last administered on 01/11/17 22:02; Admin Dose 83.333 MLS/HR; Start 01/07 at 22:00 Morphine Sulfate (morphine) 2 mg Q4H PRN IV PAIN LEVEL 7-10 Last administered on 01/12/17 09:44; Admin Dose 2 MG; Start 01/10/17 at 22:00 Diltiazem HCl (Cardizem) 60 mg Q8 NGT Last administered on 01/12/17 06:55; Admin Dose 60 MG; Start 01/11/17 at 14:00 Insulin Aspart NOVOLOG *MILD* ALGORI... Q6 SC Last administered on 01/12/17 06 :58; Admin Dose 3 UNIT; Start 01/11/17 at 18:00 Piperacillin Sod/ Tazobactam Sod 100 ml @ 200 mls/hr Q8 IVPB Last administered on 01/12/17 06:55; Admin Dose 200 MLS/HR; Start 01/11/17 at 22:00 Potassium Chloride/Sodium Chloride (NS-KCl 20 Meq) 1,000 ml @ 50 mls/hr Q20H IV Last administered on 01/11/17t 21:59; Admin Dose 50 MLS/HR; Start 01/11/17 at 21:30 ELIZABETH CHEEK NP Jan 12, 2017 10:42
[2017-01-12] MEDS: NS + KCL 20 MEQ 1,000 ML IV SCH (12:10)
--- NOTE | 2017-01-12 17:08 | PN ---
Date/Time of Note Date/Time of Note DATE: 01/12/17 TIME: 17:07 Assessment/Plan VTE Prophylaxis VTE Prophylaxis Intervention: SCD's Lines/Catheters IV Catheter Type (from Nrsg): PICC Line Central line still needed: Yes Urinary Cath still in place: Yes Reason Cath still needed: urinary retention Assessment/Plan Assessment/Plan 1. Tonic-clonic seizure. - per Dr. Lee in neurology - continue Keppra. - seizure precautions 2. Staph bacteremia. Continue vancomycin. Repeat blood cultures - per Dr. Coffman from infectious disease standpoint. 3. Schizophrenia and bipolar disorder- no acute issues reported. 4. Hypertension. Patient is currently normotensive. 5. Diabetes mellitus. - Glycemic control - Continue Lantus and NovoLog per sliding scale. 6. Dyslipidemia. Continue Crestor. 7. Dysphasia, patient failed swallow eval, continue IV fluids. - per Dr. Simpson is following in gastroenterology consultation, - G-tube placement. 8. Sinus tachycardia was episodes of atrial tachycardia. - per Dr. Coronel from cardiology standpoint. Further recommendations based on clinical course. Lovenox for DVT prophylaxis. Plan of care discussed with Dr. Aly. Subjective 24 Hr Interval Summary Free Text/Dictation NAD, sleeping, responsive to name, no new issues reported by staff. SP`GT placement= on feedings. Exam/Review of Systems Vital Signs Vitals Vital Signs Date Time Temp Pulse Resp B/P Pulse Ox O2 Delivery O2 Flow Rate FiO2 01/12/17 17:01 1.0 01/12/17 16:20 122 01/12/17 16:16 98.2 16 115/61 98 01/12/17 08:00 Nasal Cannula Intake and Output 01/11/17 01/11/17 01/12/17 15:00 23:00 07:00 Intake Total 1280 ml 2030 ml Output Total 650 ml 800 ml Balance 630 ml 1230 ml Exam Constitutional: alert, oriented Psych: nl mood/affect Eyes: EOMI ENMT: nl external ears & nose Neck: non-tender Respiratory: clear to auscultation Cardiovascular: nl pulses Gastrointestinal: non-tender, other (sp GT placeement on 01/10/[address] Simpson), soft Musculoskeletal: muscle weakness Extremities: normal pulses Neurological: nl speech Skin: nl turgor Lymph: nontender Results Result Diagram: 01/12/17 0742 01/12/17 0742 Results 24 hrs Laboratory Tests Test 01/11/17 17:25 01/12/17 06:20 01/12/17 07:42 01/12/17 11:57 Bedside Glucose 80 266 H 203 Anion Gap 11 Basophils # 0.0 Basophils % 0.5 Blood Morphology Comment Blood Urea Nitrogen 4 L Calcium Level 7.8 L Carbon Dioxide Level 29 Chloride Level 101 Creatinine 0.51 Eosinophils # 0.2 Eosinophils % 4.7 Glucose Level 262 #H Hematocrit 25.8 L Hemoglobin 8.7 L Lymphocytes # 1.5 Lymphocytes % 37.6 Mean Corpuscular Hemoglobin 32.9 Mean Corpuscular Hemoglobin Concent 33.8 Mean Corpuscular Volume 97.2 Mean Platelet Volume 7.9 # Monocytes # 0.3 Monocytes % 7.7 Neutrophils # 2.0 Neutrophils % 49.5 Nucleated Red Blood Cells # 0.0 Nucleated Red Blood Cells % 0.0 Platelet Count 479 #H Potassium Level 4.3 Red Blood Count 2.66 L Red Cell Distribution Width 14.9 H Sodium Level 137 White Blood Count 4.1 #L Medications Medications Current Medications Levetiracetam/ Dextrose (Keppra Iv/D5W) 105 ml @ 420 mls/hr Q12 IVPB Last administered on 01/12/17 09:44; Admin Dose 420 MLS/HR; Start 12/29/16 at 09:00 Acetaminophen (Tylenol Supp) 650 mg Q6H PRN [place] ELEVATED TEMPERATURE; Start at 02:30 Enoxaparin Sodium (Lovenox) 40 mg DAILY SC Last administered on 01/12/17 09:56 ; Admin Dose 40 MG; Start 12/29/16 at 09:00 Miscellaneous Information 1 ea NOTE XX ; Start 12/29/16 at 03:00 Glucose (Glutose) 15 gm Q15M PRN PO DECREASED GLUCOSE; Start 12/29/16 at 03:00 Glucose (Glutose) 22.5 gm Q15M PRN PO DECREASED GLUCOSE; Start 12/29/16 at 03: 00 Dextrose (D50w Syringe) 25 ml Q15M PRN IV DECREASED GLUCOSE Last administered on 01/09/17 05:16; Admin Dose 25 ML; Start 12/29/16 at 03:00 Dextrose (D50w Syringe) 50 ml Q15M PRN IV DECREASED GLUCOSE Last administered on 01/06/17 05:56; Admin Dose 50 ML; Start 12/29/16 at 03:00 Glucagon (Glucagen) 1 mg Q15M PRN IM DECREASED GLUCOSE; Start 12/29/16 at 03:00 Glucose (Glutose) 15 gm Q15M PRN BUCCAL DECREASED GLUCOSE; Start 12/29/16 at 03 :00 Atorvastatin Calcium (Lipitor) 40 mg DAILY@21 PO Last administered on 22:00; Admin Dose 40 MG; Start 12/31/16 at 21:00 Collagenase (Santyl) 1 applic DAILY TOP Last administered on 01/10/17 08:34; Admin Dose 1 APPLIC; Start 01/03/17 at 09:00 Enalaprilat (Vasotec Iv) 1.25 mg Q2 PRN IV ELEVATED BLOOD PRESSURE; Start at 23:30 Diltiazem HCl 30 mg 30 mg Q6 PO ; Start 01/07/17 at 18:00; Status Future Hold Vancomycin HCl/ Sodium Chloride (Vancocin/NS) 250 ml @ 83.333 mls/ hr Q24H IVPB Last administered on 01/11/17 22:02; Admin Dose 83.333 MLS/HR; Start 01/07 at 22:00 Morphine Sulfate (morphine) 2 mg Q4H PRN IV PAIN LEVEL 7-10 Last administered on 01/12/17 09:44; Admin Dose 2 MG; Start 01/10/17 at 22:00 Diltiazem HCl (Cardizem) 60 mg Q8 NGT Last administered on 01/12/17 15:12; Admin Dose 60 MG; Start 01/11/17 at 14:00 Insulin Aspart NOVOLOG *MILD* ALGORI... Q6 SC Last administered on 01/12/17 12 :12; Admin Dose 2 UNIT; Start 01/11/17 at 18:00 Piperacillin Sod/ Tazobactam Sod 100 ml @ 200 mls/hr Q8 IVPB Last administered on 01/12/17 15:12; Admin Dose 200 MLS/HR; Start 01/11/17 at 22:00 Potassium Chloride/Sodium Chloride (NS-KCl 20 Meq) 1,000 ml @ 50 mls/hr Q20H IV Last administered on 2/11/17at 12:10; Admin Dose 50 MLS/HR; Start 01/11/17 at 21:30 Insulin Glargine (Lantus) 20 unit QHS SC ; Start 01/12/17 at 21:00 MICHAEL COLINDRES Jan 12, 2017 17:08
[2017-01-12] MEDS ORDERED: INSULIN GLARGINE [LANtus] 3 ML PEN SC SCH (21:00)
[2017-01-12] MEDS: ATORVASTATIN 40 MG TAB PO SCH (21:33)
[2017-01-12] MEDS: VANCOMYCIN 1.25 GM in SOD CHLORIDE 0.9% 250 ML IVPB SCH (22:26)
[2017-01-13] VITALS (13 sets, daily range): BP systolic 118–148; BP diastolic 54–76; PULSE 93–120; RESP 17–20
[2017-01-13] MEDS: DILTIAZEM 60 MG TAB NGT SCH ×3 (06:43→21:15)
[2017-01-13] MEDS: PIPER-TAZO 3.375 GM IV (PMX) 100 ML IVPB SCH ×3 (06:43→21:13)
[2017-01-13] MEDS: INSULIN ASPART [NOVOLOG] 3 ML PEN SC SCH ×5 (06:48→20:44)
[2017-01-13 08:31] LABS: BASOPHILS % 0.7 % (0.0-2.0); EOSINOPHILS # 0.2 10^3/ul (0.0-0.5); EOSINOPHILS % 3.3 % (0.0-7.0); HEMATOCRIT 25.7 % (37.0-47.0); HEMOGLOBIN 8.8 g/dl (12.0-16.0); LYMPHOCYTES # 1.9 10^3/ul (0.8-2.9); LYMPHOCYTES % 39.5 % (15.0-51.0); MEAN CORPUSCULAR HEMOGLOBIN 33.5 pg (29.0-33.0); MEAN CORPUSCULAR HGB CONC 34.3 g/dl (32.0-37.0); MEAN CORPUSCULAR VOLUME 97.7 fl (82.0-101.0); MONOCYTE # 0.4 10^3/ul (0.3-0.9); MONOCYTES % 7.6 % (0.0-11.0); NEUTROPHIL # 2.3 10^3/ul (1.6-7.5); NEUTROPHILS % 48.9 % (39.0-77.0); PLATELET COUNT 507 10^3/UL (140-440); RED BLOOD COUNT 2.63 10^6/ul (4.20-5.40); UNCORRECTED WBC 4.7 10^3/ul (4.8-10.8); WHITE BLOOD COUNT 4.7 10^3/ul (4.8-10.8)
[2017-01-13 08:37] LABS: CONDITION 1; LH ANALYZER COMMENTS 1
[2017-01-13 08:41] LABS: POTASSIUM 4.3 mmol/L (3.5-5.1)
[2017-01-13 08:44] LABS: CREATININE 0.52 mg/dl (0.44-1.00)
[2017-01-13] MEDS: COLLAGENASE 30 GM TUBE TOP SCH (09:00)
[2017-01-13] MEDS: LEVETIRACETAM IV 500 MG in DEXTROSE 5% 100 ML IVPB SCH ×2 (09:49→20:33)
[2017-01-13] MEDS: NS + KCL 20 MEQ 1,000 ML IV SCH (09:49)
[2017-01-13] MEDS: ENOXAPARIN 40 MG/0.4 ML SYG SC SCH (09:52)
--- NOTE | 2017-01-13 14:04 | CONS ---
Date/Time of Note Date/Time of Note DATE: 01/13/17 TIME: 14:00 Assessment/Plan Assessment/Plan Chief Complaint/Hosp Course ID PROGRESS NOTE TOTAL ABX DAY # Vanco IV + Zosyn 24H INTERVAL SUMMARY * Awake, eyes open, alert and responsive * no fevers, no new issues, no c/o 01/10/17 CXR: IMPRESSION: 1. Left lower lobe atelectasis versus pneumonitis, new finding when compared to the prior examination. 2. Right upper extremity PICC line with tip near the cavoatrial junction. PHYSICAL EXAMINATION: GENERAL: VSS, NAD HEENT: Unremarkable NECK: Trach midline CHEST: Rise symmetrical - without dyspnea on observation HEART: RRR ABDOMEN: Soft, EXTREMITIES: Warm, ID ASSESSMENT: 56 yo F w/PMHx TIA, Seizure disorder, Psych Dx Schizophrenia + BiPolar admit with: 1. Sepsis resolved, no fevers 2. Coagulase-negative Staphylococcus bacteremia, possibly secondary to lines, possibly contaminant. So far, repeat blood cultures negative. 3. Aspiration and healthcare-associated pneumonia. 4. Dysphagia status post percutaneous endoscopic gastrostomy yesterday. 5. Urinary tract infection per urinalysis on admission. 6. Diabetes. 7. Seizure disorder. (-)MRSA Nares INVASIVES: *PIV ABX ALLERGIES: KNDA CURRENT ABX: Vanco IV + Zosyn ID RECOMMENDATIONS: Continue ABX for concern ASP PNA -> Taper soon per ID provider evaluation & f/u next week . Problems: Consultation Date/Type/Reason Admit Date/Time Dec 28, 2016 at 16:56 Initial Consult Date 12/30/16 Type of Consultation: ID Referring Provider: LUZMA HYMAN MD Exam/Review of Systems Vital Signs Vitals Vital Signs Date Time Temp Pulse Resp B/P Pulse Ox O2 Delivery O2 Flow Rate FiO2 01/13/17 12:00 113 01/13/17 11:40 98.1 18 123/54 96 01/13/17 07:51 Nasal Cannula 3.0 Intake and Output 01/12/17 01/12/17 01/13/17 15:00 23:00 07:00 Intake Total 1480 ml 680 ml Output Total 700 ml 600 ml Balance 780 ml 80 ml Results Result Diagram: 01/13/17 0701/13/17 07 Results 24 hrs Laboratory Tests Test 01/12/17 17:11 01/12/17 20:38 01/13/17 00:37 01/13/17 06:44 Bedside Glucose 204 162 251 H 252 H Test 01/13/17 07:29 01/13/17 11:58 Anion Gap 10 Basophils # 0.0 Basophils % 0.7 Blood Morphology Comment Blood Urea Nitrogen 11 Calcium Level 8.0 L Carbon Dioxide Level 30 Chloride Level 99 Creatinine 0.52 Eosinophils # 0.2 Eosinophils % 3.3 Glucose Level 245 H Hematocrit 25.7 L Hemoglobin 8.8 L Lymphocytes # 1.9 Lymphocytes % 39.5 Mean Corpuscular Hemoglobin 33.5 H Mean Corpuscular Hemoglobin Concent 34.3 Mean Corpuscular Volume 97.7 Mean Platelet Volume 8.0 Monocytes # 0.4 Monocytes % 7.6 Neutrophils # 2.3 Neutrophils % 48.9 Nucleated Red Blood Cells # 0.0 Nucleated Red Blood Cells % 0.0 Platelet Count 507 H Potassium Level 4.3 Red Blood Count 2.63 L Red Cell Distribution Width 15.0 H Sodium Level 135 White Blood Count 4.7 L Bedside Glucose 208 Medications Medications Current Medications Levetiracetam/ Dextrose (Keppra Iv/D5W) 105 ml @ 420 mls/hr Q12 IVPB Last administered on 01/13/17 09:49; Admin Dose 420 MLS/HR; Start 12/29/16 at 09:00 Acetaminophen (Tylenol Supp) 650 mg Q6H PRN [place] ELEVATED TEMPERATURE; Start at 02:30 Enoxaparin Sodium (Lovenox) 40 mg DAILY SC Last administered on 01/13/17 09:52 ; Admin Dose 40 MG; Start 12/29/16 at 09:00 Miscellaneous Information 1 ea NOTE XX ; Start 12/29/16 at 03:00 Glucose (Glutose) 15 gm Q15M PRN PO DECREASED GLUCOSE; Start 12/29/16 at 03:00 Glucose (Glutose) 22.5 gm Q15M PRN PO DECREASED GLUCOSE; Start 12/29/16 at 03: 00 Dextrose (D50w Syringe) 25 ml Q15M PRN IV DECREASED GLUCOSE Last administered on 01/09/17 05:16; Admin Dose 25 ML; Start 12/29/16 at 03:00 Dextrose (D50w Syringe) 50 ml Q15M PRN IV DECREASED GLUCOSE Last administered on 01/06/17 05:56; Admin Dose 50 ML; Start 12/29/16 at 03:00 Glucagon (Glucagen) 1 mg Q15M PRN IM DECREASED GLUCOSE; Start 12/29/16 at 03:00 Glucose (Glutose) 15 gm Q15M PRN BUCCAL DECREASED GLUCOSE; Start 12/29/16 at 03 :00 Atorvastatin Calcium (Lipitor) 40 mg DAILY@21 PO Last administered on 21:33; Admin Dose 40 MG; Start 12/31/16 at 21:00 Collagenase (Santyl) 1 applic DAILY TOP Last administered on 01/10/17 08:34; Admin Dose 1 APPLIC; Start 01/03/17 at 09:00 Enalaprilat (Vasotec Iv) 1.25 mg Q2 PRN IV ELEVATED BLOOD PRESSURE; Start at 23:30 Diltiazem HCl 30 mg 30 mg Q6 PO ; Start 01/07/17 at 18:00; Status Future Hold Vancomycin HCl/ Sodium Chloride (Vancocin/NS) 250 ml @ 83.333 mls/ hr Q24H IVPB Last administered on 01/12/17 22:26; Admin Dose 83.333 MLS/HR; Start 01/07 at 22:00 Morphine Sulfate (morphine) 2 mg Q4H PRN IV PAIN LEVEL 7-10 Last administered on 01/12/17 09:44; Admin Dose 2 MG; Start 01/10/17 at 22:00 Diltiazem HCl (Cardizem) 60 mg Q8 NGT Last administered on 01/13/17 13:07; Admin Dose 60 MG; Start 01/11/17 at 14:00 Insulin Aspart NOVOLOG *MILD* ALGORI... Q6 SC Last administered on 01/13/17 13 :14; Admin Dose 2 UNIT; Start 01/11/17 at 18:00 Piperacillin Sod/ Tazobactam Sod 100 ml @ 200 mls/hr Q8 IVPB Last administered on 01/13/17 13:07; Admin Dose 200 MLS/HR; Start 01/11/17 at 22:00 Potassium Chloride/Sodium Chloride (NS-KCl 20 Meq) 1,000 ml @ 50 mls/hr Q20H IV Last administered on 01/13/17 09:49; Admin Dose 50 MLS/HR; Start 01/11/17 at 21:30 Insulin Glargine (Lantus) 20 unit QHS SC Last administered on 01/12/17 21:40; Admin Dose 20 UNIT; Start 01/12/17 at 21:00 Miscellaneous Information (*Rx Drug Level Order Reminder*) VANCOMYCIN TROUGH AT 2100 ONCE ONCE XX ; Start 01/13/17 at 21:00; Stop 01/13/17 at 21:01 ELIZABETH CHEEK NP Jan 13, 2017 14:04
--- NOTE | 2017-01-13 17:49 | PN ---
Date/Time of Note Date/Time of Note DATE: 01/13/17 TIME: 17:47 Assessment/Plan VTE Prophylaxis VTE Prophylaxis Intervention: SCD's Lines/Catheters IV Catheter Type (from Nrsg): PICC Line Central line still needed: Yes Urinary Cath still in place: Yes Reason Cath still needed: urinary retention Assessment/Plan Assessment/Plan 1. Tonic-clonic seizure. - per Dr. Lee in neurology - continue Keppra. - seizure precautions 2. Staph bacteremia. Continue vancomycin. Repeat blood cultures - per Dr. Coffman from infectious disease standpoint. 3. Schizophrenia and bipolar disorder- no acute issues reported. 4. Hypertension. Patient is currently normotensive. 5. Diabetes mellitus. - Glycemic control- Lantus /Novolg insulin - new orders done - Continue Lantus and NovoLog per sliding scale. 6. Dyslipidemia. Continue Crestor. 7. Dysphasia, patient failed swallow eval, continue IV fluids. - per Dr. Simpson is following in gastroenterology consultation, - sp G-tube placement. 8. Sinus tachycardia was episodes of atrial tachycardia. - per Dr. Coronel from cardiology standpoint. Further recommendations based on clinical course. Lovenox for DVT prophylaxis. Plan of care discussed with Dr. Aly. Exam/Review of Systems Vital Signs Vitals Vital Signs Date Time Temp Pulse Resp B/P Pulse Ox O2 Delivery O2 Flow Rate FiO2 01/13/17 16:00 105 01/13/17 15:49 98.6 18 121/57 98 01/13/17 07:51 Nasal Cannula 3.0 Intake and Output 01/12/17 01/12/17 01/13/17 15:00 23:00 07:00 Intake Total 1480 ml 680 ml Output Total 700 ml 600 ml Balance 780 ml 80 ml Exam Constitutional: alert Psych: nl mood/affect Eyes: PERRL, nl sclera ENMT: nl external ears & nose Neck: non-tender Respiratory: clear to auscultation Cardiovascular: nl pulses Gastrointestinal: non-tender, soft Musculoskeletal: muscle weakness Extremities: normal pulses Neurological: nl speech Skin: other Lymph: nontender Results Result Diagram: 01/13/17 0729 01/13/17 0729 Results 24 hrs Laboratory Tests Test 01/12/17 20:38 01/13/17 00:37 01/13/17 06:44 01/13/17 07:29 Bedside Glucose 162 251 H 252 H Anion Gap 10 Basophils # 0.0 Basophils % 0.7 Blood Morphology Comment Blood Urea Nitrogen 11 Calcium Level 8.0 L Carbon Dioxide Level 30 Chloride Level 99 Creatinine 0.52 Eosinophils # 0.2 Eosinophils % 3.3 Glucose Level 245 H Hematocrit 25.7 L Hemoglobin 8.8 L Lymphocytes # 1.9 Lymphocytes % 39.5 Mean Corpuscular Hemoglobin 33.5 H Mean Corpuscular Hemoglobin Concent 34.3 Mean Corpuscular Volume 97.7 Mean Platelet Volume 8.0 Monocytes # 0.4 Monocytes % 7.6 Neutrophils # 2.3 Neutrophils % 48.9 Nucleated Red Blood Cells # 0.0 Nucleated Red Blood Cells % 0.0 Platelet Count 507 H Potassium Level 4.3 Red Blood Count 2.63 L Red Cell Distribution Width 15.0 H Sodium Level 135 White Blood Count 4.7 L Test 01/13/17 11:58 01/13/17 17:19 Bedside Glucose 208 120 Medications Medications Current Medications Levetiracetam/ Dextrose (Keppra Iv/D5W) 105 ml @ 420 mls/hr Q12 IVPB Last administered on 01/13/17 09:49; Admin Dose 420 MLS/HR; Start 12/29/16 at 09:00 Acetaminophen (Tylenol Supp) 650 mg Q6H PRN [place] ELEVATED TEMPERATURE; Start at 02:30 Enoxaparin Sodium (Lovenox) 40 mg DAILY SC Last administered on 01/13/17 09:52 ; Admin Dose 40 MG; Start 12/29/16 at 09:00 Miscellaneous Information 1 ea NOTE XX ; Start 12/29/16 at 03:00 Glucose (Glutose) 15 gm Q15M PRN PO DECREASED GLUCOSE; Start 12/29/16 at 03:00 Glucose (Glutose) 22.5 gm Q15M PRN PO DECREASED GLUCOSE; Start 12/29/16 at 03: 00 Dextrose (D50w Syringe) 25 ml Q15M PRN IV DECREASED GLUCOSE Last administered on 01/09/17 05:16; Admin Dose 25 ML; Start 12/29/16 at 03:00 Dextrose (D50w Syringe) 50 ml Q15M PRN IV DECREASED GLUCOSE Last administered on 01/06/17 05:56; Admin Dose 50 ML; Start 12/29/16 at 03:00 Glucagon (Glucagen) 1 mg Q15M PRN IM DECREASED GLUCOSE; Start 12/29/16 at 03:00 Glucose (Glutose) 15 gm Q15M PRN BUCCAL DECREASED GLUCOSE; Start 12/29/16 at 03 :00 Atorvastatin Calcium (Lipitor) 40 mg DAILY@21 PO Last administered on 21:33; Admin Dose 40 MG; Start 12/31/16 at 21:00 Collagenase (Santyl) 1 applic DAILY TOP Last administered on 01/10/17 08:34; Admin Dose 1 APPLIC; Start 01/03/17 at 09:00 Enalaprilat (Vasotec Iv) 1.25 mg Q2 PRN IV ELEVATED BLOOD PRESSURE; Start at 23:30 Diltiazem HCl 30 mg 30 mg Q6 PO ; Start 01/07/17 at 18:00; Status Future Hold Vancomycin HCl/ Sodium Chloride (Vancocin/NS) 250 ml @ 83.333 mls/ hr Q24H IVPB Last administered on 01/12/17 22:26; Admin Dose 83.333 MLS/HR; Start 01/07 at 22:00 Morphine Sulfate (morphine) 2 mg Q4H PRN IV PAIN LEVEL 7-10 Last administered on 01/12/17 09:44; Admin Dose 2 MG; Start 01/10/17 at 22:00 Diltiazem HCl (Cardizem) 60 mg Q8 NGT Last administered on 01/13/17 13:07; Admin Dose 60 MG; Start 01/11/17 at 14:00 Insulin Aspart NOVOLOG *MILD* ALGORI... Q6 SC Last administered on 01/13/17 13 :14; Admin Dose 2 UNIT; Start 01/11/17 at 18:00 Piperacillin Sod/ Tazobactam Sod 100 ml @ 200 mls/hr Q8 IVPB Last administered on 01/13/17 13:07; Admin Dose 200 MLS/HR; Start 01/11/17 at 22:00 Potassium Chloride/Sodium Chloride (NS-KCl 20 Meq) 1,000 ml @ 50 mls/hr Q20H IV Last administered on 01/13/17 09:49; Admin Dose 50 MLS/HR; Start 01/11/17 at 21:30 Insulin Glargine (Lantus) 20 unit QHS SC Last administered on 01/12/17t 21:40; Admin Dose 20 UNIT; Start 01/12/17 at 21:00 Miscellaneous Information (*Rx Drug Level Order Reminder*) VANCOMYCIN TROUGH AT 2100 ONCE ONCE XX ; Start 01/13/17 at 21:00; Stop 01/13/17 at 21:01 MICHAEL COLINDRES Jan 13, 2017 17:49
[2017-01-13] MEDS: ATORVASTATIN 40 MG TAB PO SCH (20:34)
[2017-01-13] MEDS ORDERED: INSULIN GLARGINE [LANtus] 3 ML PEN SC SCH (21:00)
[2017-01-13] MEDS: VANCOMYCIN 1.25 GM in SOD CHLORIDE 0.9% 250 ML IVPB SCH (22:43)
[2017-01-14] VITALS (10 sets, daily range): BP systolic 116–128; BP diastolic 52–71; PULSE 85–103; RESP 18–20
[2017-01-14] MEDS: INSULIN ASPART [NOVOLOG] 3 ML PEN SC SCH ×6 (06:00→22:39)
[2017-01-14] MEDS: PIPER-TAZO 3.375 GM IV (PMX) 100 ML IVPB SCH ×3 (06:21→22:47)
[2017-01-14] MEDS: DILTIAZEM 60 MG TAB NGT SCH ×3 (06:22→22:48)
[2017-01-14 07:18] LABS: BASOPHILS % 0.6 % (0.0-2.0); EOSINOPHILS # 0.2 10^3/ul (0.0-0.5); EOSINOPHILS % 3.2 % (0.0-7.0); HEMATOCRIT 26.4 % (37.0-47.0); HEMOGLOBIN 9.1 g/dl (12.0-16.0); LYMPHOCYTES % 37.7 % (15.0-51.0); MEAN CORPUSCULAR HEMOGLOBIN 33.4 pg (29.0-33.0); MEAN CORPUSCULAR HGB CONC 34.4 g/dl (32.0-37.0); MEAN CORPUSCULAR VOLUME 97.1 fl (82.0-101.0); MONOCYTE # 0.4 10^3/ul (0.3-0.9); MONOCYTES % 7.4 % (0.0-11.0); NEUTROPHIL # 2.7 10^3/ul (1.6-7.5); NEUTROPHILS % 51.1 % (39.0-77.0); PLATELET COUNT 502 10^3/UL (140-440); RED BLOOD COUNT 2.72 10^6/ul (4.20-5.40); RED CELL DISTRIBUTION WIDTH 15.2 % (11.5-14.5); UNCORRECTED WBC 5.3 10^3/ul (4.8-10.8); WHITE BLOOD COUNT 5.3 10^3/ul (4.8-10.8)
[2017-01-14 07:22] LABS: CONDITION 1; LH ANALYZER COMMENTS 1
[2017-01-14 07:43] LABS: POTASSIUM 4.6 mmol/L (3.5-5.1)
[2017-01-14 07:46] LABS: CREATININE 0.54 mg/dl (0.44-1.00)
[2017-01-14 07:47] LABS: CALCIUM 8.4 mg/dl (8.4-10.2)
[2017-01-14] MEDS: COLLAGENASE 30 GM TUBE TOP SCH (10:01)
[2017-01-14] MEDS: LEVETIRACETAM IV 500 MG in DEXTROSE 5% 100 ML IVPB SCH ×2 (10:01→22:47)
[2017-01-14] MEDS: ENOXAPARIN 40 MG/0.4 ML SYG SC SCH (10:02)
--- NOTE | 2017-01-14 12:43 | CONS ---
Date/Time of Note Date/Time of Note DATE: 01/14/17 TIME: 12:42 Assessment/Plan Assessment/Plan Additional Assessment/Plan Seizure UTI Hypoglycemia Sinus tachycardia with episodes of atrial tachycardia Preserved ejection fraction Psychiatric disorder -Heart rate trend overall improved with Cardizem. Would continue as blood pressure permits. Consultation Date/Type/Reason Admit Date/Time Dec 28, 2016 at 16:56 Initial Consult Date 12/30/16 Type of Consultation: cv Referring Provider: LUZMA HYMAN MD 24 HR Interval Summary Free Text/Dictation Patient seen and examined, not responding to questions today Exam/Review of Systems Vital Signs Vitals Vital Signs Date Time Temp Pulse Resp B/P Pulse Ox O2 Delivery O2 Flow Rate FiO2 01/14/17 12:06 98.0 82 19 120/52 98 01/13/17 20:00 Nasal Cannula 3.0 Intake and Output 01/13/17 01/13/17 01/14/17 15:00 23:00 07:00 Intake Total 1480 ml 680 ml Output Total 1200 ml 900 ml Balance 280 ml -220 ml Exam Awake, occasionally follows commands, moaning at times Head: normocephalic Respiratory: other (Coarse breath sounds bilaterally, no wheezing) Cardiovascular: other (S1-S2 heard), regular rate and rhythm Gastrointestinal: bowel sounds, non-tender, soft Extremities: edema (Trace) Results Result Diagram: 01/14/1762601/14/17 0627 Results 24 hrs Laboratory Tests Test 01/13/17 17:19 01/13/17 20:05 01/13/17 21:04 01/14/17 00:01 Bedside Glucose 120 102 83 Vancomycin Level Trough 17.9 Test 01/14/17 06:27 01/14/17 06:31 01/14/17 12:07 Anion Gap 10 Basophils # 0.0 Basophils % 0.6 Blood Morphology Comment Blood Urea Nitrogen 13 Calcium Level 8.4 Carbon Dioxide Level 32 H Chloride Level 104 Creatinine 0.54 Eosinophils # 0.2 Eosinophils % 3.2 Glucose Level 71 # Hematocrit 26.4 L Hemoglobin 9.1 L Lymphocytes # 2.0 Lymphocytes % 37.7 Mean Corpuscular Hemoglobin 33.4 H Mean Corpuscular Hemoglobin Concent 34.4 Mean Corpuscular Volume 97.1 Mean Platelet Volume 8.0 Monocytes # 0.4 Monocytes % 7.4 Neutrophils # 2.7 Neutrophils % 51.1 Nucleated Red Blood Cells # 0.0 Nucleated Red Blood Cells % 0.0 Platelet Count 502 H Potassium Level 4.6 Red Blood Count 2.72 L Red Cell Distribution Width 15.2 H Sodium Level 141 White Blood Count 5.3 Bedside Glucose 72 137 Medications Medications Current Medications Levetiracetam/ Dextrose (Keppra Iv/D5W) 105 ml @ 420 mls/hr Q12 IVPB Last administered on 01/14/17 10:01; Admin Dose 420 MLS/HR; Start 12/29/16 at 09:00 Acetaminophen (Tylenol Supp) 650 mg Q6H PRN [place] ELEVATED TEMPERATURE; Start at 02:30 Enoxaparin Sodium (Lovenox) 40 mg DAILY SC Last administered on 01/14/17 10:02 ; Admin Dose 40 MG; Start 12/29/16 at 09:00 Miscellaneous Information 1 ea NOTE XX ; Start 12/29/16 at 03:00 Glucose (Glutose) 15 gm Q15M PRN PO DECREASED GLUCOSE; Start 12/29/16 at 03:00 Glucose (Glutose) 22.5 gm Q15M PRN PO DECREASED GLUCOSE; Start 12/29/16 at 03: 00 Dextrose (D50w Syringe) 25 ml Q15M PRN IV DECREASED GLUCOSE Last administered on 01/09/17 05:16; Admin Dose 25 ML; Start 12/29/16 at 03:00 Dextrose (D50w Syringe) 50 ml Q15M PRN IV DECREASED GLUCOSE Last administered on 01/06/17 05:56; Admin Dose 50 ML; Start 12/29/16 at 03:00 Glucagon (Glucagen) 1 mg Q15M PRN IM DECREASED GLUCOSE; Start 12/29/16 at 03:00 Glucose (Glutose) 15 gm Q15M PRN BUCCAL DECREASED GLUCOSE; Start 12/29/16 at 03 :00 Atorvastatin Calcium (Lipitor) 40 mg DAILY@21 PO Last administered on 20:34; Admin Dose 40 MG; Start 12/31/16 at 21:00 Collagenase (Santyl) 1 applic DAILY TOP Last administered on 01/14/17 10:01; Admin Dose 1 APPLIC; Start 01/03/17 at 09:00 Enalaprilat (Vasotec Iv) 1.25 mg Q2 PRN IV ELEVATED BLOOD PRESSURE; Start at 23:30 Diltiazem HCl (Cardizem) 30 mg Q6 PO ; Start 01/07/17 at 18:00; Status Future Hold Morphine Sulfate (morphine) 2 mg Q4H PRN IV PAIN LEVEL 7-10 Last administered on 01/12/17 09:44; Admin Dose 2 MG; Start 01/10/17 at 22:00 Diltiazem HCl (Cardizem) 60 mg Q8 NGT Last administered on 01/14/17 06:22; Admin Dose 60 MG; Start 01/11/17 at 14:00 Insulin Aspart NOVOLOG *MILD* ALGORI... Q6 SC Last administered on 01/13/17 13 :14; Admin Dose 2 UNIT; Start 01/11/17 at 18:00 Piperacillin Sod/ Tazobactam Sod 100 ml @ 200 mls/hr Q8 IVPB Last administered on 01/14/17 06:21; Admin Dose 200 MLS/HR; Start 01/11/17 at 22:00 Potassium Chloride/Sodium Chloride (NS-KCl 20 Meq) 1,000 ml @ 50 mls/hr Q20H IV Last administered on 01/13/17 09:49; Admin Dose 50 MLS/HR; Start 01/11/17 at 21:30 Insulin Glargine 24 unit 24 unit QHS SC Last administered on 01/13/17 20:42; Admin Dose 24 UNIT; Start 01/13/17 at 21:00 Vancomycin HCl (Vancocin) 250 ml @ 125 mls/hr Q24H IVPB ; Start 01/14/17 at 22: 00 Gamal Coronel DO Jan 14, 2017 12:43
--- NOTE | 2017-01-14 13:56 | PN ---
Date/Time of Note Date/Time of Note DATE: 01/14/17 TIME: 13:55 Assessment/Plan VTE Prophylaxis VTE Prophylaxis Intervention: SCD's Lines/Catheters IV Catheter Type (from Nrsg): PICC Line Central line still needed: Yes Urinary Cath still in place: No Assessment/Plan Chief Complaint/Hosp Course Assessment and plan: 1. Tonic-clonic seizure. Patient is followed by Dr. Lee in neurology, continue Keppra. 2. Staph bacteremia. Continue vancomycin. Repeat blood cultures. Dr. Coffman will be following from infectious disease standpoint. 3. Schizophrenia and bipolar disorder. 4. Hypertension. Patient is currently normotensive. 5. Diabetes mellitus. Continue Lantus and NovoLog per sliding scale. 6. Dyslipidemia. Continue Crestor. 7. Dysphasia, patient failed swallow eval, continue IV fluids. Dr. Mcarthur is following in gastroenterology consultation, s/p G-tube placement yesterday, started on GT feeding today, continue to monitor residual. 8. Sinus tachycardia was episodes of atrial tachycardia. Dr. Coronel is following from cardiology standpoint. Further recommendations based on clinical course. Plan of care discussed with Dr. Aly. Problems: Subjective 24 Hr Interval Summary Free Text/Dictation No N/V, tolerated GT feeding well, still pending MRI of bach, will d/c Shields, monitor post void residual. Exam/Review of Systems Vital Signs Vitals Vital Signs Date Time Temp Pulse Resp B/P Pulse Ox O2 Delivery O2 Flow Rate FiO2 01/14/17 13:52 96 2.0 01/14/17 12:06 98.0 82 19 120/52 01/14/17 08:25 Nasal Cannula Intake and Output 01/13/17 01/13/17 01/14/17 15:00 23:00 07:00 Intake Total 1480 ml 680 ml Output Total 1200 ml 900 ml Balance 280 ml -220 ml Exam GENERAL: Awake alert HEENT: Atraumatic, normocephalic. NECK: Supple. No masses or thyromegaly. CHEST: Lung sounds clear bilaterally CARDIOVASCULAR: Regular rate and rhythm. S1, S2 normal. No murmur, gallop, or rub. ABDOMEN: Soft, nondistended, nontender. Bowel sounds plus. EXTREMITIES: No leg edema. NEUROLOGIC: Awake alert and oriented to name and situation. SKIN: Without acute rash. No clubbing or cyanosis. Results Result Diagram: 01/14/17 0627 01/14/17 0627 Results 24 hrs Laboratory Tests Test 01/13/17 17:19 01/13/17 20:05 01/13/17 21:04 01/14/17 00:01 Bedside Glucose 120 102 83 Vancomycin Level Trough 17.9 Test 01/14/17 06:27 01/14/17 06:31 01/14/17 12:07 Anion Gap 10 Basophils # 0.0 Basophils % 0.6 Blood Morphology Comment Blood Urea Nitrogen 13 Calcium Level 8.4 Carbon Dioxide Level 32 H Chloride Level 104 Creatinine 0.54 Eosinophils # 0.2 Eosinophils % 3.2 Glucose Level 71 # Hematocrit 26.4 L Hemoglobin 9.1 L Lymphocytes # 2.0 Lymphocytes % 37.7 Mean Corpuscular Hemoglobin 33.4 H Mean Corpuscular Hemoglobin Concent 34.4 Mean Corpuscular Volume 97.1 Mean Platelet Volume 8.0 Monocytes # 0.4 Monocytes % 7.4 Neutrophils # 2.7 Neutrophils % 51.1 Nucleated Red Blood Cells # 0.0 Nucleated Red Blood Cells % 0.0 Platelet Count 502 H Potassium Level 4.6 Red Blood Count 2.72 L Red Cell Distribution Width 15.2 H Sodium Level 141 White Blood Count 5.3 Bedside Glucose 72 137 Medications Medications Current Medications Levetiracetam/ Dextrose (Keppra Iv/D5W) 105 ml @ 420 mls/hr Q12 IVPB Last administered on 01/14/17 10:01; Admin Dose 420 MLS/HR; Start 12/29/16 at 09:00 Acetaminophen (Tylenol Supp) 650 mg Q6H PRN [place] ELEVATED TEMPERATURE; Start at 02:30 Enoxaparin Sodium (Lovenox) 40 mg DAILY SC Last administered on 01/14/17 10:02 ; Admin Dose 40 MG; Start 12/29/16 at 09:00 Miscellaneous Information 1 ea NOTE XX ; Start 12/29/16 at 03:00 Glucose (Glutose) 15 gm Q15M PRN PO DECREASED GLUCOSE; Start 12/29/16 at 03:00 Glucose (Glutose) 22.5 gm Q15M PRN PO DECREASED GLUCOSE; Start 12/29/16 at 03: 00 Dextrose (D50w Syringe) 25 ml Q15M PRN IV DECREASED GLUCOSE Last administered on 01/09/17 05:16; Admin Dose 25 ML; Start 12/29/16 at 03:00 Dextrose (D50w Syringe) 50 ml Q15M PRN IV DECREASED GLUCOSE Last administered on 01/06/17 05:56; Admin Dose 50 ML; Start 12/29/16 at 03:00 Glucagon (Glucagen) 1 mg Q15M PRN IM DECREASED GLUCOSE; Start 12/29/16 at 03:00 Glucose (Glutose) 15 gm Q15M PRN BUCCAL DECREASED GLUCOSE; Start 12/29/16 at 03 :00 Atorvastatin Calcium (Lipitor) 40 mg DAILY@21 PO Last administered on 20:34; Admin Dose 40 MG; Start 12/31/16 at 21:00 Collagenase (Santyl) 1 applic DAILY TOP Last administered on 01/14/17 10:01; Admin Dose 1 APPLIC; Start 01/03/17 at 09:00 Enalaprilat (Vasotec Iv) 1.25 mg Q2 PRN IV ELEVATED BLOOD PRESSURE; Start at 23:30 Diltiazem HCl (Cardizem) 30 mg Q6 PO ; Start 01/07/17 at 18:00; Status Future Hold Morphine Sulfate (morphine) 2 mg Q4H PRN IV PAIN LEVEL 7-10 Last administered on 01/12/17 09:44; Admin Dose 2 MG; Start 01/10/17 at 22:00 Diltiazem HCl (Cardizem) 60 mg Q8 NGT Last administered on 01/14/17 06:22; Admin Dose 60 MG; Start 01/11/17 at 14:00 Insulin Aspart NOVOLOG *MILD* ALGORI... Q6 SC Last administered on 01/13/17 13 :14; Admin Dose 2 UNIT; Start 01/11/17 at 18:00 Piperacillin Sod/ Tazobactam Sod 100 ml @ 200 mls/hr Q8 IVPB Last administered on 01/14/17 06:21; Admin Dose 200 MLS/HR; Start 01/11/17 at 22:00 Potassium Chloride/Sodium Chloride (NS-KCl 20 Meq) 1,000 ml @ 50 mls/hr Q20H IV Last administered on 01/13/17 09:49; Admin Dose 50 MLS/HR; Start 01/11/17 at 21:30 Insulin Glargine 24 unit 24 unit QHS SC Last administered on 01/13/17t 20:42; Admin Dose 24 UNIT; Start 01/13/17 at 21:00 Vancomycin HCl (Vancocin) 250 ml @ 125 mls/hr Q24H IVPB ; Start 01/14/17 at 22: 00 DENA SALGUERO Jan 14, 2017 13:56
[2017-01-14] MEDS: NS + KCL 20 MEQ 1,000 ML IV SCH (14:04)
[2017-01-14] MEDS: VANCOMYCIN 1 GM in NS 250 ML IVPB SCH (22:47)
[2017-01-14] MEDS: ATORVASTATIN 40 MG TAB PO SCH (22:48)
[2017-01-14] MEDS: INSULIN GLARGINE [LANtus] 3 ML PEN SC SCH (22:50)
[2017-01-15] VITALS (9 sets, daily range): BP systolic 98–135; BP diastolic 54–61; PULSE 79–106; RESP 16–20
[2017-01-15] MEDS: morphine 2 MG INJ IV PRN ×4 (00:56→17:39)
[2017-01-15] MEDS: INSULIN ASPART [NOVOLOG] 3 ML PEN SC SCH ×6 (01:01→20:58)
[2017-01-15] MEDS: NS + KCL 20 MEQ 1,000 ML IV SCH ×2 (06:04→17:41)
[2017-01-15] MEDS: DILTIAZEM 60 MG TAB NGT SCH ×3 (06:05→22:49)
[2017-01-15] MEDS: PIPER-TAZO 3.375 GM IV (PMX) 100 ML IVPB SCH ×3 (06:05→22:49)
--- NOTE | 2017-01-15 06:45 | PN ---
DATE: INFECTIOUS DISEASE PROGRESS NOTE SUBJECTIVE: Patient is awake, lying comfortably in bed. No fevers. WBC 5.3, no shift, no bands. BUN 13, creatinine 0.54. MICROBIOLOGY: Blood cultures on admission grew coagulase-negative staph species. Repeat blood cult ures negative. Urinalysis was also positive on admission. ANTIMICROBIALS: The patient remains on 1. Vancomycin. 2. Zosyn. INDWELLINGS: Trach, PEG, Shields, PICC line placed on 12/10/2016. PHYSICAL EXAMINATION: GENERAL: Fragile, chronically ill-appearing, middle-aged white woman who is awake, in no distress. HEENT: Head atraumatic, normocephalic. Sclerae anicteric. Buccal mucosa pink, dry. NECK: Supple. CHEST: Rise symmetrical. Breath sounds diminished to bases. HEART: S1, S2. ABDOMEN: Soft, bowel tones present. EXTREMITIES: With trace edema. SKIN: Positive for anasarca. ASSESSMENT: 1. Resolving sepsis with coagulase-negative bacteremia low grade fevers and tachycardia. 2. Urinary tract infection per urinalysis on admission with cultures being negative. 3. Aspiration pneumonia secondary to secretion retention and dysphagia, status post percutaneous en doscopic gastrostomy. 4. Seizure disorder. 5. Diabetes. 6. Severe decompensated state. PLAN: The patient remains stable. Repeat blood cultures have been negative. She is clinically imp roving. We will keep her on antibiotics for 5 more days. Continue anti-aspiration precautions, ant i-seizure precautions. Dictated By: MELODIE RAMIREZ FILTER ASSEMBLER for ALISSA LOWE/RUSTY Conf#: [id number] DID#: [id number]
[2017-01-15] MEDS: LEVETIRACETAM IV 500 MG in DEXTROSE 5% 100 ML IVPB SCH ×2 (09:29→20:57)
[2017-01-15] MEDS: ENOXAPARIN 40 MG/0.4 ML SYG SC SCH (09:30)
[2017-01-15] MEDS: COLLAGENASE 30 GM TUBE TOP SCH (09:31)
--- NOTE | 2017-01-15 10:33 | PQ ---
Date/Time of Note Date/Time of Note DATE: 01/15/17 TIME: 10:23 Physician Query Documentation Clarification Dear Ms. Geetha Green, ELIZABETH A review of the medical record found a need for documentation clarification. progress note - "Staph bacteremia. Continue vancomycin. Repeat blood cultures. " (01/14) ID Consult - " Resolving sepsis with coagulase-negative bacteremia low grade fevers and tachycardia" (01/14) WBC = 12.9 -(01/03) AK = 100's 110's T = 100.8 ( 01/10) + BC Please clarify a diagnosis being treated. To facilitate accurate and complete coding, please emre ( x ) the suspected diagnosis that apply: ( X ) Bacteremia without sepsis ( R7881) ----see scanned document + DC Summ ( ) Bacteremia with Sepsis (A419) ( ) Unable to determine ( ) Others Please provide your response by clicking edit document, making your choice ( x ), click ok/save and finally click sign. You may also document your response on your progress notes. Thank you for your time. Vivian Garcia RN, BSN, CCS, CCDS [employer] Information Management, [employer] and Coding Services [phone] Room # [id number]~ [id number] VIVIAN GARCIA Jan 15, 2017 10:33
--- NOTE | 2017-01-15 11:50 | CONS ---
Date/Time of Note Date/Time of Note DATE: 01/15/17 TIME: 11:48 Assessment/Plan Assessment/Plan Additional Assessment/Plan Seizure UTI Sinus tachycardia with episodes of atrial tachycardia Preserved ejection fraction Psychiatric disorder -Heart rate trend overall improved on current dose of Cardizem. Would continue as blood pressure permits. Consultation Date/Type/Reason Admit Date/Time Dec 28, 2016 at 16:56 Initial Consult Date 12/30/16 Type of Consultation: cv Referring Provider: LUZMA HYMAN MD 24 HR Interval Summary Free Text/Dictation Patient seen and examined Exam/Review of Systems Vital Signs Vitals Vital Signs Date Time Temp Pulse Resp B/P Pulse Ox O2 Delivery O2 Flow Rate FiO2 01/15/17 08:19 98.2 96 20 123/60 100 01/15/17 04:00 Nasal Cannula 01/15/17 01:26 2.0 Intake and Output 01/14/17 01/14/17 01/15/17 15:00 23:00 07:00 Intake Total 205 ml 1125 ml 500 ml Output Total 1100 ml 1700 ml Balance -895 ml -575 ml 500 ml Exam Follows some basic commands, moaning throughout history and exam Constitutional: alert Head: normocephalic Respiratory: other (Coarse breath sounds bilaterally, no wheezing) Cardiovascular: other (S1-S2 heard), regular rate and rhythm Gastrointestinal: bowel sounds, non-tender, other (No guarding), soft Extremities: edema Results Result Diagram: 01/14/17 0627 01/14/17 0627 Results 24 hrs Laboratory Tests Test 01/14/17 12:07 01/14/17 17:26 01/14/17 20:24 01/15/17 00:58 Bedside Glucose 137 148 142 168 Test 01/15/17 04:06 01/15/17 08:37 01/15/17 11:42 Bedside Glucose 123 71 79 Medications Medications Current Medications Levetiracetam/ Dextrose (Keppra Iv/D5W) 105 ml @ 420 mls/hr Q12 IVPB Last administered on 01/15/17t 09:29; Admin Dose 420 MLS/HR; Start 12/29/16 at 09:00 Acetaminophen (Tylenol Supp) 650 mg Q6H PRN [place] ELEVATED TEMPERATURE; Start at 02:30 Enoxaparin Sodium (Lovenox) 40 mg DAILY SC Last administered on 01/15/17 09:30 ; Admin Dose 40 MG; Start 12/29/16 at 09:00 Miscellaneous Information 1 ea NOTE XX ; Start 12/29/16 at 03:00 Glucose (Glutose) 15 gm Q15M PRN PO DECREASED GLUCOSE; Start 12/29/16 at 03:00 Glucose (Glutose) 22.5 gm Q15M PRN PO DECREASED GLUCOSE; Start 12/29/16 at 03: 00 Dextrose (D50w Syringe) 25 ml Q15M PRN IV DECREASED GLUCOSE Last administered on 01/09/17 05:16; Admin Dose 25 ML; Start 12/29/16 at 03:00 Dextrose (D50w Syringe) 50 ml Q15M PRN IV DECREASED GLUCOSE Last administered on 01/06/17 05:56; Admin Dose 50 ML; Start 12/29/16 at 03:00 Glucagon (Glucagen) 1 mg Q15M PRN IM DECREASED GLUCOSE; Start 12/29/16 at 03:00 Glucose (Glutose) 15 gm Q15M PRN BUCCAL DECREASED GLUCOSE; Start 12/29/16 at 03 :00 Atorvastatin Calcium (Lipitor) 40 mg DAILY@21 PO Last administered on 22:48; Admin Dose 40 MG; Start 12/31/16 at 21:00 Collagenase (Santyl) 1 applic DAILY TOP Last administered on 01/15/17 09:31; Admin Dose 1 APPLIC; Start 01/03/17 at 09:00 Enalaprilat (Vasotec Iv) 1.25 mg Q2 PRN IV ELEVATED BLOOD PRESSURE; Start at 23:30 Diltiazem HCl (Cardizem) 30 mg Q6 PO ; Start 01/07/17 at 18:00; Status Future Hold Morphine Sulfate (morphine) 2 mg Q4H PRN IV PAIN LEVEL 7-10 Last administered on 01/15/17 10:34; Admin Dose 2 MG; Start 01/10/17 at 22:00 Diltiazem HCl 60 mg 60 mg Q8 NGT Last administered on 01/15/17 06:05; Admin Dose 60 MG; Start 01/11/17 at 14:00 Piperacillin Sod/ Tazobactam Sod 100 ml @ 200 mls/hr Q8 IVPB Last administered on 01/15/17 06:05; Admin Dose 200 MLS/HR; Start 01/11/17 at 22:00 Potassium Chloride/Sodium Chloride 1,000 ml @ 50 mls/hr Q20H IV Last administered on 01/15/17 06:04; Admin Dose 50 MLS/HR; Start 01/11/17 at 21:30 Vancomycin HCl (Vancocin) 250 ml @ 125 mls/hr Q24H IVPB Last administered on 22:47; Admin Dose 125 MLS/HR; Start 01/14/17 at 22:00 Insulin Glargine (Lantus) 20 unit QHS SC Last administered on 01/14/17 22:50; Admin Dose 20 UNIT; Start 01/14/17 at 21:00 Insulin Aspart (Novolog Insulin Pen) NOVOLOG *MILD* ALGORI... Q4 SC Last administered on 01/15/17 01:01; Admin Dose 1 UNIT; Start 01/14/17 at 17:00 Gamal Coronel DO Jan 15, 2017 11:50
--- NOTE | 2017-01-15 12:48 | CONS ---
Date/Time of Note Date/Time of Note DATE: 01/15/17 TIME: 12:47 Assessment/Plan Assessment/Plan Chief Complaint/Hosp Course SUBJECTIVE: Patient is awake, lying comfortably in bed. No fevers. MICROBIOLOGY: Blood cultures on admission grew coagulase-negative staph species. Repeat blood cultures negative. Urinalysis was also positive on admission. ANTIMICROBIALS: 1. Vancomycin. 2. Zosyn. INDWELLINGS: Trach, PEG, Shields, PICC line placed on 12/10/2016. PHYSICAL EXAMINATION: GENERAL: Fragile, chronically ill-appearing, middle-aged white woman who is awake, in no distress. HEENT: Head atraumatic, normocephalic. Sclerae anicteric. Buccal mucosa pink , dry. NECK: Supple. CHEST: Rise symmetrical. Breath sounds diminished to bases. HEART: S1, S2. ABDOMEN: Soft, bowel tones present. EXTREMITIES: With trace edema. SKIN: Positive for anasarca. ASSESSMENT: 1. Resolving sepsis with coagulase-negative bacteremia low grade fevers and tachycardia. 2. Urinary tract infection per urinalysis on admission with cultures being negative. 3. Aspiration pneumonia secondary to secretion retention and dysphagia, status post percutaneous endoscopic gastrostomy. 4. Seizure disorder. 5. Diabetes. 6. Severe decompensated state. PLAN: The patient remains stable. Repeat blood cultures have been negative. She is clinically improving. We will keep her on antibiotics for 4 more days. Continue anti-aspiration precautions, anti-seizure precautions. DW staff Problems: Consultation Date/Type/Reason Admit Date/Time Dec 28, 2016 at 16:56 Initial Consult Date 12/30/16 Type of Consultation: ID Referring Provider: LUZMA HYMAN MD Exam/Review of Systems Vital Signs Vitals Vital Signs Date Time Temp Pulse Resp B/P Pulse Ox O2 Delivery O2 Flow Rate FiO2 01/15/17 12:19 104 01/15/17 11:52 97.9 20 104/59 97 01/15/17 04:00 Nasal Cannula 01/15/17 01:26 2.0 Intake and Output 01/14/17 01/14/17 01/15/17 15:00 23:00 07:00 Intake Total 205 ml 1125 ml 500 ml Output Total 1100 ml 1700 ml Balance -895 ml -575 ml 500 ml Results Result Diagram: 01/14/17 0627 01/14/17 0627 Results 24 hrs Laboratory Tests Test 01/14/17 17:26 01/14/17 20:24 01/15/17 00:58 01/15/17 04:06 Bedside Glucose 148 142 168 123 Test 01/15/17 08:37 01/15/17 11:42 Bedside Glucose 71 79 Medications Medications Current Medications Levetiracetam/ Dextrose (Keppra Iv/D5W) 105 ml @ 420 mls/hr Q12 IVPB Last administered on 01/15/17 09:29; Admin Dose 420 MLS/HR; Start 12/29/16 at 09:00 Acetaminophen (Tylenol Supp) 650 mg Q6H PRN [place] ELEVATED TEMPERATURE; Start at 02:30 Enoxaparin Sodium (Lovenox) 40 mg DAILY SC Last administered on 01/15/17 09:30 ; Admin Dose 40 MG; Start 12/29/16 at 09:00 Miscellaneous Information 1 ea NOTE XX ; Start 12/29/16 at 03:00 Glucose (Glutose) 15 gm Q15M PRN PO DECREASED GLUCOSE; Start 12/29/16 at 03:00 Glucose (Glutose) 22.5 gm Q15M PRN PO DECREASED GLUCOSE; Start 12/29/16 at 03: 00 Dextrose (D50w Syringe) 25 ml Q15M PRN IV DECREASED GLUCOSE Last administered on 01/09/17 05:16; Admin Dose 25 ML; Start 12/29/16 at 03:00 Dextrose (D50w Syringe) 50 ml Q15M PRN IV DECREASED GLUCOSE Last administered on 01/06/17 05:56; Admin Dose 50 ML; Start 12/29/16 at 03:00 Glucagon (Glucagen) 1 mg Q15M PRN [place] DECREASED GLUCOSE; Start 12/29/16 at 03:00 Glucose (Glutose) 15 gm Q15M PRN BUCCAL DECREASED GLUCOSE; Start 12/29/16 at 03 :00 Atorvastatin Calcium (Lipitor) 40 mg DAILY@21 PO Last administered on 22:48; Admin Dose 40 MG; Start 12/31/16 at 21:00 Collagenase (Santyl) 1 applic DAILY TOP Last administered on 01/15/17 09:31; Admin Dose 1 APPLIC; Start 01/03/17 at 09:00 Enalaprilat (Vasotec Iv) 1.25 mg Q2 PRN [place] ELEVATED BLOOD PRESSURE; Start at 23:30 Diltiazem HCl (Cardizem) 30 mg Q6 PO ; Start 01/07/17 at 18:00; Status Future Hold Morphine Sulfate (morphine) 2 mg Q4H PRN IV PAIN LEVEL 7-10 Last administered on 01/15/17 10:34; Admin Dose 2 MG; Start 01/10/17 at 22:00 Diltiazem HCl 60 mg 60 mg Q8 NGT Last administered on 01/15/17 06:05; Admin Dose 60 MG; Start 01/11/17 at 14:00 Piperacillin Sod/ Tazobactam Sod 100 ml @ 200 mls/hr Q8 IVPB Last administered on 01/15/17 06:05; Admin Dose 200 MLS/HR; Start 01/11/17 at 22:00 Potassium Chloride/Sodium Chloride 1,000 ml @ 50 mls/hr Q20H IV Last administered on 01/15/17 06:04; Admin Dose 50 MLS/HR; Start 01/11/17 at 21:30 Vancomycin HCl (Vancocin) 250 ml @ 125 mls/hr Q24H IVPB Last administered on 22:47; Admin Dose 125 MLS/HR; Start 01/14/17 at 22:00 Insulin Glargine (Lantus) 20 unit QHS SC Last administered on 01/14/17 22:50; Admin Dose 20 UNIT; Start 01/14/17 at 21:00 Insulin Aspart (Novolog Insulin Pen) NOVOLOG *MILD* ALGORI... Q4 SC Last administered on 01/15/17 01:01; Admin Dose 1 UNIT; Start 01/14/17 at 17:00 MELODIE RAMIREZ NP Jan 15, 2017 12:48
--- NOTE | 2017-01-15 16:36 | PN ---
Date/Time of Note Date/Time of Note DATE: 01/15/17 TIME: 16:35 Assessment/Plan VTE Prophylaxis VTE Prophylaxis Intervention: SCD's Lines/Catheters IV C[facility]ter Type [facility]from [facility]): PICC Line Central line still needed: Yes Urinary Cath still in place: No Assessment/Plan Chief Complaint/Hosp Course Assessment and plan: 1. Tonic-clonic seizure. Patient is followed by Dr. Lee in neurology, continue Keppra. 2. Staph bacteremia. Continue vancomycin. Repeat blood cultures. Dr. Coffman will be following from infectious disease standpoint. 3. Schizophrenia and bipolar disorder. 4. Hypertension. Patient is currently normotensive. 5. Diabetes mellitus. Continue Lantus and NovoLog per sliding scale. 6. Dyslipidemia. Continue Crestor. 7. Dysphasia, patient failed swallow eval, continue IV fluids. Dr. Mcarthur is following in gastroenterology consultation, s/p G-tube placement. 8. Sinus tachycardia was episodes of atrial tachycardia. Dr. Coronel is following from cardiology standpoint. Further recommendations based on clinical course. Plan of care discussed with Dr. Aly. Problems: Subjective 24 Hr Interval Summary Free Text/Dictation Patient still pending MRI of the back, tolerates G-tube feeding well, no fever. Exam/Review of Systems Vital Signs Vitals Vital Signs Date Time Temp Pulse Resp B/P Pulse Ox O2 Delivery O2 Flow Rate FiO2 01/15/17 16:26 106 01/15/17 16:04 97.3 20 127/58 99 01/15/17 04:00 Nasal Cannula 01/15/17 01:26 2.0 Intake and Output 01/14/17 01/14/17 01/15/17 15:00 23:00 07:00 Intake Total 205 ml 1125 ml 500 ml Output Total 1100 ml 1700 ml Balance -895 ml -575 ml 500 ml Exam GENERAL: Awake alert HEENT: Atraumatic, normocephalic. NECK: Supple. No masses or thyromegaly. CHEST: Lung sounds clear bilaterally CARDIOVASCULAR: Regular rate and rhythm. S1, S2 normal. No murmur, gallop, or rub. ABDOMEN: Soft, nondistended, nontender. Bowel sounds plus. EXTREMITIES: No leg edema. NEUROLOGIC: Awake alert and oriented to name and situation. SKIN: Without acute rash. No clubbing or cyanosis. Results Result Diagram: 01/14/1727 01/14/17 0627 Results 24 hrs Laboratory Tests Test 01/14/17 17:26 01/14/17 20:24 01/15/17 00:58 01/15/17 04:06 Bedside Glucose 148 142 168 123 Test 01/15/17 08:37 01/15/17 11:42 Bedside Glucose 71 79 Medications Medications Current Medications Levetiracetam/ Dextrose (Keppra Iv/D5W) 105 ml @ 420 mls/hr Q12 IVPB Last administered on 01/15/17 09:29; Admin Dose 420 MLS/HR; Start 12/29/16 at 09:00 Acetaminophen (Tylenol Supp) 650 mg Q6H PRN [place] ELEVATED TEMPERATURE; Start at 02:30 Enoxaparin Sodium (Lovenox) 40 mg DAILY SC Last administered on 01/15/17 09:30 ; Admin Dose 40 MG; Start 12/29/16 at 09:00 Miscellaneous Information 1 ea NOTE XX ; Start 12/29/16 at 03:00 Glucose (Glutose) 15 gm Q15M PRN PO DECREASED GLUCOSE; Start 12/29/16 at 03:00 Glucose (Glutose) 22.5 gm Q15M PRN PO DECREASED GLUCOSE; Start 12/29/16 at 03: 00 Dextrose (D50w Syringe) 25 ml Q15M PRN IV DECREASED GLUCOSE Last administered on 01/09/17 05:16; Admin Dose 25 ML; Start 12/29/16 at 03:00 Dextrose (D50w Syringe) 50 ml Q15M PRN IV DECREASED GLUCOSE Last administered on 01/06/17 05:56; Admin Dose 50 ML; Start 12/29/16 at 03:00 Glucagon (Glucagen) 1 mg Q15M PRN IM DECREASED GLUCOSE; Start 12/29/16 at 03:00 Glucose (Glutose) 15 gm Q15M PRN BUCCAL DECREASED GLUCOSE; Start 12/29/16 at 03 :00 Atorvastatin Calcium (Lipitor) 40 mg DAILY@21 PO Last administered on 22:48; Admin Dose 40 MG; Start 12/31/16 at 21:00 Collagenase (Santyl) 1 applic DAILY TOP Last administered on 01/15/17 09:31; Admin Dose 1 APPLIC; Start 01/03/17 at 09:00 Enalaprilat (Vasotec Iv) 1.25 mg Q2 PRN IV ELEVATED BLOOD PRESSURE; Start at 23:30 Diltiazem HCl (Cardizem) 30 mg Q6 PO ; Start 01/07/17 at 18:00; Status Future Hold Morphine Sulfate (morphine) 2 mg Q4H PRN IV PAIN LEVEL 7-10 Last administered on 01/15/17 10:34; Admin Dose 2 MG; Start 01/10/17 at 22:00 Diltiazem HCl 60 mg 60 mg Q8 NGT Last administered on 01/15/17 14:12; Admin Dose 60 MG; Start 01/11/17 at 14:00 Piperacillin Sod/ Tazobactam Sod 100 ml @ 200 mls/hr Q8 IVPB Last administered on 01/15/17 14:11; Admin Dose 200 MLS/HR; Start 01/11/17 at 22:00 Potassium Chloride/Sodium Chloride 1,000 ml @ 50 mls/hr Q20H IV Last administered on 01/15/17 06:04; Admin Dose 50 MLS/HR; Start 01/11/17 at 21:30 Vancomycin HCl (Vancocin) 250 ml @ 125 mls/hr Q24H IVPB Last administered on 22:47; Admin Dose 125 MLS/HR; Start 01/14/17 at 22:00 Insulin Glargine (Lantus) 20 unit QHS SC Last administered on 01/14/17 22:50; Admin Dose 20 UNIT; Start 01/14/17 at 21:00 Insulin Aspart (Novolog Insulin Pen) NOVOLOG *MILD* ALGORI... Q4 SC Last administered on 01/15/17 01:01; Admin Dose 1 UNIT; Start 01/14/17 at 17:00 DENA SALGUERO Jan 15, 2017 16:36
[2017-01-15] MEDS: DEXTROSE 50% 50 ML SYRINGE IV PRN (17:33)
[2017-01-15] MEDS: ATORVASTATIN 40 MG TAB PO SCH (20:57)
[2017-01-15] MEDS: INSULIN GLARGINE [LANtus] 3 ML PEN SC SCH (21:06)
[2017-01-15] MEDS: VANCOMYCIN 1 GM in NS 250 ML IVPB SCH (23:41)
[2017-01-16] MEDS: INSULIN ASPART [NOVOLOG] 3 ML PEN SC SCH ×6 (01:00→21:13)
[2017-01-16 01:16] VITALS: BP 114/61; RESP 18
[2017-01-16] MEDS: DEXTROSE 50% 50 ML SYRINGE IV PRN (01:26)
[2017-01-16] MEDS: PIPER-TAZO 3.375 GM IV (PMX) 100 ML IVPB SCH ×3 (05:43→21:14)
[2017-01-16] MEDS: DILTIAZEM 60 MG TAB NGT SCH ×3 (05:49→21:59)
[2017-01-16 05:50] VITALS: BP 125/61; RESP 18
[2017-01-16 07:30] LABS: BASOPHILS % 0.6 % (0.0-2.0); EOSINOPHILS # 0.2 10^3/ul (0.0-0.5); HEMATOCRIT 25.4 % (37.0-47.0); HEMOGLOBIN 8.3 g/dl (12.0-16.0); LYMPHOCYTES % 32.2 % (15.0-51.0); MEAN CORPUSCULAR HEMOGLOBIN 32.3 pg (29.0-33.0); MEAN CORPUSCULAR HGB CONC 32.9 g/dl (32.0-37.0); MEAN CORPUSCULAR VOLUME 98.3 fl (82.0-101.0); MEAN PLATELET VOLUME 7.8 fl (7.4-10.4); MONOCYTE # 0.4 10^3/ul (0.3-0.9); NEUTROPHIL # 3.6 10^3/ul (1.6-7.5); NEUTROPHILS % 58.2 % (39.0-77.0); PLATELET COUNT 563 10^3/UL (140-440); RED BLOOD COUNT 2.58 10^6/ul (4.20-5.40); RED CELL DISTRIBUTION WIDTH 15.5 % (11.5-14.5); UNCORRECTED WBC 6.2 10^3/ul (4.8-10.8); WHITE BLOOD COUNT 6.2 10^3/ul (4.8-10.8)
[2017-01-16 07:33] LABS: CONDITION 1; LH ANALYZER COMMENTS 1
[2017-01-16 07:49] VITALS: BP 119/58; RESP 18
[2017-01-16 08:04] LABS: POTASSIUM 3.4 mmol/L (3.5-5.1)
[2017-01-16 08:06] LABS: CREATININE 0.51 mg/dl (0.44-1.00)
[2017-01-16 08:07] LABS: CALCIUM 7.7 mg/dl (8.4-10.2)
[2017-01-16] MEDS: LEVETIRACETAM IV 500 MG in DEXTROSE 5% 100 ML IVPB SCH ×2 (08:19→20:52)
[2017-01-16] MEDS: ENOXAPARIN 40 MG/0.4 ML SYG SC SCH (08:29)
[2017-01-16] MEDS: COLLAGENASE 30 GM TUBE TOP SCH (08:31)
[2017-01-16 11:43] VITALS: BP 129/61; RESP 18
--- NOTE | 2017-01-16 13:15 | CONS ---
Date/Time of Note Date/Time of Note DATE: 01/16/17 TIME: 13:13 Assessment/Plan Assessment/Plan Chief Complaint/Hosp Course SUBJECTIVE: Patient is lying comfortably in bed. No fevers. MICROBIOLOGY: Blood cultures on admission grew coagulase-negative staph species. Repeat blood cultures negative. Urinalysis was also positive on admission. ANTIMICROBIALS: 1. Vancomycin. 2. Zosyn. INDWELLINGS: Trach, PEG, Shields, PICC line placed on 12/10/2016. PHYSICAL EXAMINATION: GENERAL: Fragile, chronically ill-appearing, middle-aged white woman who is awake, in no distress. HEENT: Head atraumatic, normocephalic. Sclerae anicteric. Buccal mucosa pink , dry. NECK: Supple. CHEST: Rise symmetrical. Breath sounds diminished to bases. HEART: S1, S2. ABDOMEN: Soft, bowel tones present. EXTREMITIES: With trace edema. SKIN: Positive for anasarca. ASSESSMENT: 1. Resolving sepsis with coagulase-negative bacteremia low grade fevers and tachycardia. 2. Urinary tract infection per urinalysis on admission with cultures being negative. 3. Aspiration pneumonia secondary to secretion retention and dysphagia, status post percutaneous endoscopic gastrostomy. 4. Seizure disorder. 5. Diabetes. 6. Severe decompensated state. PLAN: The patient remains stable. Repeat blood cultures have been negative. We will keep her on antibiotics for 3 more days. Continue anti-aspiration precautions, anti-seizure precautions. DW staff Problems: Consultation Date/Type/Reason Admit Date/Time Dec 28, 2016 at 16:56 Initial Consult Date 12/30/16 Type of Consultation: ID Referring Provider: LUZMA HYMAN MD Exam/Review of Systems Vital Signs Vitals Vital Signs Date Time Temp Pulse Resp B/P Pulse Ox O2 Delivery O2 Flow Rate FiO2 01/16/17 12:39 2.0 01/16/17 11:43 97.8 110 18 129/61 98 01/15/17 20:20 Nasal Cannula Intake and Output 01/15/17 01/15/17 01/16/17 15:00 23:00 07:00 Intake Total 985 ml 850 ml Balance 985 ml 850 ml Results Result Diagram: 01/16/17 0600 01/16/17 0609 Results 24 hrs Laboratory Tests Test 01/15/17 17:18 01/15/17 20:21 01/16/17 01:17 01/16/17 01:51 Bedside Glucose 47 *L 89 50 L 117 Test 01/16/17 05:09 01/16/17 06:00 01/16/17 06:09 01/16/17 08:15 Bedside Glucose 103 141 Basophils # 0.0 Basophils % 0.6 Blood Morphology Comment Eosinophils # 0.2 Eosinophils % 3.0 Hematocrit 25.4 L Hemoglobin 8.3 L Lymphocytes # 2.0 Lymphocytes % 32.2 Mean Corpuscular Hemoglobin 32.3 Mean Corpuscular Hemoglobin Concent 32.9 Mean Corpuscular Volume 98.3 Mean Platelet Volume 7.8 Monocytes # 0.4 Monocytes % 6.0 Neutrophils # 3.6 Neutrophils % 58.2 Nucleated Red Blood Cells # 0.0 Nucleated Red Blood Cells % 0.0 Platelet Count 563 H Red Blood Count 2.58 L Red Cell Distribution Width 15.5 H White Blood Count 6.2 Anion Gap 16 Blood Urea Nitrogen 12 Calcium Level 7.7 L Carbon Dioxide Level 26 Chloride Level 105 Creatinine 0.51 Glucose Level 94 Potassium Level 3.4 L Sodium Level 144 Test 01/16/17 12:38 Bedside Glucose 216 Medications Medications Current Medications Levetiracetam/ Dextrose (Keppra Iv/D5W) 105 ml @ 420 mls/hr Q12 IVPB Last administered on 01/16/17 08:19; Admin Dose 420 MLS/HR; Start 12/29/16 at 09:00 Acetaminophen (Tylenol Supp) 650 mg Q6H PRN [place] ELEVATED TEMPERATURE; Start at 02:30 Enoxaparin Sodium (Lovenox) 40 mg DAILY SC Last administered on 01/16/17 08:29 ; Admin Dose 40 MG; Start 12/29/16 at 09:00 Miscellaneous Information 1 ea NOTE XX ; Start 12/29/16 at 03:00 Glucose (Glutose) 15 gm Q15M PRN PO DECREASED GLUCOSE; Start 12/29/16 at 03:00 Glucose (Glutose) 22.5 gm Q15M PRN PO DECREASED GLUCOSE; Start 12/29/16 at 03: 00 Dextrose (D50w Syringe) 25 ml Q15M PRN IV DECREASED GLUCOSE Last administered on 01/16/17 01:26; Admin Dose 25 ML; Start 12/29/16 at 03:00 Dextrose (D50w Syringe) 50 ml Q15M PRN IV DECREASED GLUCOSE Last administered on 01/06/17 05:56; Admin Dose 50 ML; Start 12/29/16 at 03:00 Glucagon (Glucagen) 1 mg Q15M PRN IM DECREASED GLUCOSE; Start 12/29/16 at 03:00 Glucose (Glutose) 15 gm Q15M PRN BUCCAL DECREASED GLUCOSE; Start 12/29/16 at 03 :00 Atorvastatin Calcium (Lipitor) 40 mg DAILY@21 PO Last administered on 20:57; Admin Dose 40 MG; Start 12/31/16 at 21:00 Collagenase (Santyl) 1 applic DAILY TOP Last administered on 01/16/17 08:31; Admin Dose 1 APPLIC; Start 01/03/17 at 09:00 Enalaprilat (Vasotec Iv) 1.25 mg Q2 PRN IV ELEVATED BLOOD PRESSURE; Start at 23:30 Diltiazem HCl (Cardizem) 30 mg Q6 PO ; Start 01/07/17 at 18:00; Status Future Hold Morphine Sulfate (morphine) 2 mg Q4H PRN IV PAIN LEVEL 7-10 Last administered on 01/15/17 17:39; Admin Dose 2 MG; Start 01/10/17 at 22:00 Diltiazem HCl 60 mg 60 mg Q8 NGT Last administered on 01/16/17 05:49; Admin Dose 60 MG; Start 01/11/17 at 14:00 Piperacillin Sod/ Tazobactam Sod 100 ml @ 200 mls/hr Q8 IVPB Last administered on 01/16/17 05:43; Admin Dose 200 MLS/HR; Start 01/11/17 at 22:00 Potassium Chloride/Sodium Chloride 1,000 ml @ 50 mls/hr Q20H IV Last administered on 01/15/17 17:41; Admin Dose 50 MLS/HR; Start 01/11/17 at 21:30 Vancomycin HCl (Vancocin) 250 ml @ 125 mls/hr Q24H IVPB Last administered on 23:41; Admin Dose 125 MLS/HR; Start 01/14/17 at 22:00 Insulin Glargine (Lantus) 20 unit QHS SC Last administered on 01/15/17 21:06; Admin Dose 20 UNIT; Start 01/14/17 at 21:00 Insulin Aspart (Novolog Insulin Pen) NOVOLOG *MILD* ALGORI... Q4 SC Last administered on 01/16/17 12:45; Admin Dose 2 UNIT; Start 01/14/17 at 17:00 MELODIE RAMIREZ NP Jan 16, 2017 13:15
--- NOTE | 2017-01-16 13:46 | CONS ---
Date/Time of Note Date/Time of Note DATE: 01/16/17 TIME: 13:44 Assessment/Plan Assessment/Plan Additional Assessment/Plan Seizure UTI Sinus tachycardia with episodes of atrial tachycardia Preserved ejection fraction Psychiatric disorder -Heart regimen overall improved. Continue Cardizem. Supplement potassium. Consultation Date/Type/Reason Admit Date/Time Dec 28, 2016 at 16:56 Initial Consult Date 12/30/16 Type of Consultation: cv Referring Provider: LUZMA HYMAN MD 24 HR Interval Summary Free Text/Dictation Patient seen and examined Exam/Review of Systems Vital Signs Vitals Vital Signs Date Time Temp Pulse Resp B/P Pulse Ox O2 Delivery O2 Flow Rate FiO2 01/16/17 12:39 2.0 01/16/17 11:43 97.8 110 18 129/61 98 01/16/17 08:30 Nasal Cannula Intake and Output 01/15/17 01/15/17 01/16/17 15:00 23:00 07:00 Intake Total 985 ml 850 ml Balance 985 ml 850 ml Exam Awake, follows some commands, no apparent distress Head: normocephalic Respiratory: other (Coarse breath sounds bilaterally, no wheezing) Cardiovascular: other (S1-S2 heard), regular rate and rhythm Gastrointestinal: bowel sounds, non-tender, soft Extremities: edema Results Result Diagram: 01/16/17 0600 01/16/17 0609 Results 24 hrs Laboratory Tests Test 01/15/17 17:18 01/15/17 20:21 01/16/17 01:17 01/16/17 01:51 Bedside Glucose 47 *L 89 50 L 117 Test 01/16/17 05:09 01/16/17 06:00 01/16/17 06:09 01/16/17 08:15 Bedside Glucose 103 141 Basophils # 0.0 Basophils % 0.6 Blood Morphology Comment Eosinophils # 0.2 Eosinophils % 3.0 Hematocrit 25.4 L Hemoglobin 8.3 L Lymphocytes # 2.0 Lymphocytes % 32.2 Mean Corpuscular Hemoglobin 32.3 Mean Corpuscular Hemoglobin Concent 32.9 Mean Corpuscular Volume 98.3 Mean Platelet Volume 7.8 Monocytes # 0.4 Monocytes % 6.0 Neutrophils # 3.6 Neutrophils % 58.2 Nucleated Red Blood Cells # 0.0 Nucleated Red Blood Cells % 0.0 Platelet Count 563 H Red Blood Count 2.58 L Red Cell Distribution Width 15.5 H White Blood Count 6.2 Anion Gap 16 Blood Urea Nitrogen 12 Calcium Level 7.7 L Carbon Dioxide Level 26 Chloride Level 105 Creatinine 0.51 Glucose Level 94 Potassium Level 3.4 L Sodium Level 144 Test 01/16/17 12:38 Bedside Glucose 216 Medications Medications Current Medications Levetiracetam/ Dextrose (Keppra Iv/D5W) 105 ml @ 420 mls/hr Q12 IVPB Last administered on 01/16/17 08:19; Admin Dose 420 MLS/HR; Start 12/29/16 at 09:00 Acetaminophen (Tylenol Supp) 650 mg Q6H PRN [place] ELEVATED TEMPERATURE; Start at 02:30 Enoxaparin Sodium (Lovenox) 40 mg DAILY SC Last administered on 01/16/17 08:29 ; Admin Dose 40 MG; Start 12/29/16 at 09:00 Miscellaneous Information 1 ea NOTE XX ; Start 12/29/16 at 03:00 Glucose (Glutose) 15 gm Q15M PRN PO DECREASED GLUCOSE; Start 12/29/16 at 03:00 Glucose (Glutose) 22.5 gm Q15M PRN PO DECREASED GLUCOSE; Start 12/29/16 at 03: 00 Dextrose (D50w Syringe) 25 ml Q15M PRN IV DECREASED GLUCOSE Last administered on 01/16/17 01:26; Admin Dose 25 ML; Start 12/29/16 at 03:00 Dextrose (D50w Syringe) 50 ml Q15M PRN IV DECREASED GLUCOSE Last administered on 01/06/17 05:56; Admin Dose 50 ML; Start 12/29/16 at 03:00 Glucagon (Glucagen) 1 mg Q15M PRN [place] DECREASED GLUCOSE; Start 12/29/16 at 03:00 Glucose (Glutose) 15 gm Q15M PRN BUCC[place] DECREASED GLUCOSE; Start 12/29/16 at 03 :00 Atorvastatin Calcium (Lipitor) 40 mg DAILY@21 PO Last administered on 20:57; Admin Dose 40 MG; Start 12/31/16 at 21:00 Collagenase (Santyl) 1 applic DAILY TOP Last administered on 01/16/17 08:31; Admin Dose 1 APPLIC; Start 01/03/17 at 09:00 Enalaprilat (Vasotec Iv) 1.25 mg Q2 PRN [place] ELEVATED BLOOD PRESSURE; Start at 23:30 Diltiazem HCl (Cardizem) 30 mg Q6 PO ; Start 01/07/17 at 18:00; Status Future Hold Morphine Sulfate (morphine) 2 mg Q4H PRN IV PAIN LEVEL 7-10 Last administered on 01/15/17 17:39; Admin Dose 2 MG; Start 01/10/17 at 22:00 Diltiazem HCl 60 mg 60 mg Q8 NGT Last administered on 01/16/17 05:49; Admin Dose 60 MG; Start 01/11/17 at 14:00 Piperacillin Sod/ Tazobactam Sod 100 ml @ 200 mls/hr Q8 IVPB Last administered on 01/16/17 05:43; Admin Dose 200 MLS/HR; Start 01/11/17 at 22:00 Potassium Chloride/Sodium Chloride 1,000 ml @ 50 mls/hr Q20H IV Last administered on 01/15/17 17:41; Admin Dose 50 MLS/HR; Start 01/11/17 at 21:30 Vancomycin HCl (Vancocin) 250 ml @ 125 mls/hr Q24H IVPB Last administered on 23:41; Admin Dose 125 MLS/HR; Start 01/14/17 at 22:00 Insulin Glargine (Lantus) 20 unit QHS SC Last administered on 01/15/17 21:06; Admin Dose 20 UNIT; Start 01/14/17 at 21:00 Insulin Aspart (Novolog Insulin Pen) NOVOLOG *MILD* ALGORI... Q4 SC Last administered on 01/16/17 12:45; Admin Dose 2 UNIT; Start 01/14/17 at 17:00 Gamal Coronel DO Jan 16, 2017 13:46
[2017-01-16] MEDS ORDERED: POTASSIUM CHLORIDE 20 MEQ POWDER FOR ORAL SOLN NGT ONE (14:00)
[2017-01-16 15:44] VITALS: BP 122/59; RESP 20
--- NOTE | 2017-01-16 17:56 | PN ---
Date/Time of Note Date/Time of Note DATE: 01/16/17 TIME: 17:53 Assessment/Plan VTE Prophylaxis VTE Prophylaxis Intervention: SCD's Lines/Catheters IV Catheter Type (from Nrs): PICC Line Central line still needed: Yes Urinary Cath still in place: No Assessment/Plan Chief Complaint/Hosp Course Assessment and plan: 1. Tonic-clonic seizure. Patient is followed by Dr. Lee in neurology, continue Keppra. 2. Staph bacteremia. Continue vancomycin. Repeat blood cultures. Dr. Coffman will be following from infectious disease standpoint. 3. Schizophrenia and bipolar disorder. 4. Hypertension. Patient is currently normotensive. 5. Diabetes mellitus. Continue Lantus and NovoLog per sliding scale. 6. Dyslipidemia. Continue Crestor. 7. Dysphasia, patient failed swallow eval, continue IV fluids. Dr. Mcarthur is following in gastroenterology consultation, s/p G-tube placement. 8. Sinus tachycardia was episodes of atrial tachycardia. Dr. Coronel is following from cardiology standpoint. Anticipate discharge to care home facility tomorrow. Spoke with case management Alison, patient will have a bed at care home facility tomorrow. Further recommendations based on clinical course. Plan of care discussed with Dr. Aly. Problems: Subjective 24 Hr Interval Summary Free Text/Dictation Patient able to void no fever nausea vomiting noted, G-tube was held for residual 160 cc, restarted. Exam/Review of Systems Vital Signs Vitals Vital Signs Date Time Temp Pulse Resp B/P Pulse Ox O2 Delivery O2 Flow Rate FiO2 01/16/17 15:44 97.1 115 20 122/59 99 01/16/17 12:39 2.0 01/16/17 08:30 Nasal Cannula Intake and Output 01/15/17 01/15/17 01/16/17 15:00 23:00 07:00 Intake Total 985 ml 850 ml Balance 985 ml 850 ml Exam GENERAL: Awake alert HEENT: Atraumatic, normocephalic. NECK: Supple. No masses or thyromegaly. CHEST: Lung sounds clear bilaterally CARDIOVASCULAR: Regular rate and rhythm. S1, S2 normal. No murmur, gallop, or rub. ABDOMEN: Soft, nondistended, nontender. Bowel sounds plus. EXTREMITIES: No leg edema. NEUROLOGIC: Awake alert and oriented to name and situation. SKIN: Without acute rash. No clubbing or cyanosis. Results Result Diagram: 01/16/17 0600 01/16/17 0609 Results 24 hrs Laboratory Tests Test 01/15/17 20:21 01/16/17 01:17 01/16/17 01:51 01/16/17 05:09 Bedside Glucose 89 50 L 117 103 Test 01/16/17 06:00 01/16/17 06:09 01/16/17 08:15 01/16/17 12:38 Basophils # 0.0 Basophils % 0.6 Blood Morphology Comment Eosinophils # 0.2 Eosinophils % 3.0 Hematocrit 25.4 L Hemoglobin 8.3 L Lymphocytes # 2.0 Lymphocytes % 32.2 Mean Corpuscular Hemoglobin 32.3 Mean Corpuscular Hemoglobin Concent 32.9 Mean Corpuscular Volume 98.3 Mean Platelet Volume 7.8 Monocytes # 0.4 Monocytes % 6.0 Neutrophils # 3.6 Neutrophils % 58.2 Nucleated Red Blood Cells # 0.0 Nucleated Red Blood Cells % 0.0 Platelet Count 563 H Red Blood Count 2.58 L Red Cell Distribution Width 15.5 H White Blood Count 6.2 Anion Gap 16 Blood Urea Nitrogen 12 Calcium Level 7.7 L Carbon Dioxide Level 26 Chloride Level 105 Creatinine 0.51 Glucose Level 94 Potassium Level 3.4 L Sodium Level 144 Bedside Glucose 141 216 Test 01/16/17 17:11 Bedside Glucose 194 Medications Medications Current Medications Levetiracetam/ Dextrose (Keppra Iv/D5W) 105 ml @ 420 mls/hr Q12 IVPB Last administered on 01/16/17 08:19; Admin Dose 420 MLS/HR; Start 12/29/16 at 09:00 Acetaminophen (Tylenol Supp) 650 mg Q6H PRN [place] ELEVATED TEMPERATURE; Start at 02:30 Enoxaparin Sodium (Lovenox) 40 mg DAILY SC Last administered on 01/16/17 08:29 ; Admin Dose 40 MG; Start 12/29/16 at 09:00 Miscellaneous Information 1 ea NOTE XX ; Start 12/29/16 at 03:00 Glucose (Glutose) 15 gm Q15M PRN PO DECREASED GLUCOSE; Start 12/29/16 at 03:00 Glucose (Glutose) 22.5 gm Q15M PRN PO DECREASED GLUCOSE; Start 12/29/16 at 03: 00 Dextrose (D50w Syringe) 25 ml Q15M PRN IV DECREASED GLUCOSE Last administered on 01/16/17 01:26; Admin Dose 25 ML; Start 12/29/16 at 03:00 Dextrose (D50w Syringe) 50 ml Q15M PRN IV DECREASED GLUCOSE Last administered on 01/06/17 05:56; Admin Dose 50 ML; Start 12/29/16 at 03:00 Glucagon (Glucagen) 1 mg Q15M PRN IM DECREASED GLUCOSE; Start 12/29/16 at 03:00 Glucose (Glutose) 15 gm Q15M PRN BUCCAL DECREASED GLUCOSE; Start 12/29/16 at 03 :00 Atorvastatin Calcium (Lipitor) 40 mg DAILY@21 PO Last administered on 20:57; Admin Dose 40 MG; Start 12/31/16 at 21:00 Collagenase (Santyl) 1 applic DAILY TOP Last administered on 01/16/17 08:31; Admin Dose 1 APPLIC; Start 01/03/17 at 09:00 Enalaprilat (Vasotec Iv) 1.25 mg Q2 PRN IV ELEVATED BLOOD PRESSURE; Start at 23:30 Morphine Sulfate (morphine) 2 mg Q4H PRN IV PAIN LEVEL 7-10 Last administered on 01/15/17 17:39; Admin Dose 2 MG; Start 01/10/17 at 22:00 Diltiazem HCl 60 mg 60 mg Q8 NGT Last administered on 01/16/17 13:54; Admin Dose 60 MG; Start 01/11/17 at 14:00 Piperacillin Sod/ Tazobactam Sod 100 ml @ 200 mls/hr Q8 IVPB Last administered on 01/16/17 13:54; Admin Dose 200 MLS/HR; Start 01/11/17 at 22:00 Potassium Chloride/Sodium Chloride 1,000 ml @ 40 mls/hr Q24H IV Last administered on 01/15/17 17:41; Admin Dose 50 MLS/HR; Start 01/11/17 at 21:30 Vancomycin HCl (Vancocin) 250 ml @ 125 mls/hr Q24H IVPB Last administered on 23:41; Admin Dose 125 MLS/HR; Start 01/14/17 at 22:00 Insulin Aspart (Novolog Insulin Pen) NOVOLOG *MILD* ALGORI... Q4 SC Last administered on 01/16/17t 17:21; Admin Dose 3 UNIT; Start 01/14/17 at 17:00 Insulin Glargine (Lantus) 10 unit QHS SC ; Start 01/16/17 at 21:00 DENA SALGUERO Jan 16, 2017 17:56
[2017-01-16 20:19] VITALS: BP 135/62; RESP 18
[2017-01-16] MEDS: NS + KCL 20 MEQ 1,000 ML IV SCH (20:59)
[2017-01-16] MEDS: ATORVASTATIN 40 MG TAB PO SCH (20:59)
[2017-01-16] MEDS: INSULIN GLARGINE [LANtus] 3 ML PEN SC SCH (21:13)
[2017-01-16] MEDS: VANCOMYCIN 1 GM in NS 250 ML IVPB SCH (21:59)
[2017-01-17] MEDS: morphine 2 MG INJ IV PRN (00:42)
[2017-01-17] MEDS: INSULIN ASPART [NOVOLOG] 3 ML PEN SC SCH ×6 (00:52→20:48)
[2017-01-17] MEDS: DEXTROSE 50% 50 ML SYRINGE IV PRN (06:05)
[2017-01-17] MEDS: PIPER-TAZO 3.375 GM IV (PMX) 100 ML IVPB SCH ×3 (06:07→23:10)
[2017-01-17] MEDS: DILTIAZEM 60 MG TAB NGT SCH ×3 (06:09→23:10)
[2017-01-17 08:10] VITALS: BP 130/58; RESP 18
[2017-01-17 08:50] LABS: POTASSIUM 3.9 mmol/L (3.5-5.1)
[2017-01-17 08:53] LABS: CREATININE 0.53 mg/dl (0.44-1.00)
[2017-01-17 08:54] LABS: CALCIUM 8.2 mg/dl (8.4-10.2)
[2017-01-17] MEDS: ENOXAPARIN 40 MG/0.4 ML SYG SC SCH (10:27)
[2017-01-17] MEDS: COLLAGENASE 30 GM TUBE TOP SCH (10:28)
[2017-01-17] MEDS: LEVETIRACETAM IV 500 MG in DEXTROSE 5% 100 ML IVPB SCH ×2 (10:28→20:45)
[2017-01-17 11:33] VITALS: BP 127/60; RESP 19
--- NOTE | 2017-01-17 13:37 | CONS ---
Date/Time of Note Date/Time of Note DATE: 01/17/17 TIME: 13:36 Assessment/Plan Assessment/Plan Chief Complaint/Hosp Course SUBJECTIVE: Patient is lying comfortably in bed. No fevers. MICROBIOLOGY: Blood cultures on admission grew coagulase-negative staph species. Repeat blood cultures negative. Urinalysis was also positive on admission. ANTIMICROBIALS: 1. Vancomycin. 2. Zosyn. INDWELLINGS: Trach, PEG, Shields, PICC line placed on 12/10/2016. PHYSICAL EXAMINATION: GENERAL: Fragile, chronically ill-appearing, middle-aged white woman who is awake, in no distress. HEENT: Head atraumatic, normocephalic. Sclerae anicteric. Buccal mucosa pink , dry. NECK: Supple. CHEST: Rise symmetrical. Breath sounds diminished to bases. HEART: S1, S2. ABDOMEN: Soft, bowel tones present. EXTREMITIES: With trace edema. SKIN: Positive for anasarca. ASSESSMENT: 1. Resolving sepsis with coagulase-negative bacteremia low grade fevers and tachycardia. 2. Urinary tract infection per urinalysis on admission with cultures being negative. 3. Aspiration pneumonia secondary to secretion retention and dysphagia, status post percutaneous endoscopic gastrostomy. 4. Seizure disorder. 5. Diabetes. 6. Severe decompensated state. PLAN: The patient remains stable. Repeat blood cultures have been negative. We will keep her on antibiotics for 2 more days. Continue anti-aspiration precautions, anti-seizure precautions. DW staff Problems: Consultation Date/Type/Reason Admit Date/Time Dec 28, 2016 at 16:56 Initial Consult Date 12/30/16 Type of Consultation: id Referring Provider: LUZMA HYMAN MD Exam/Review of Systems Vital Signs Vitals Vital Signs Date Time Temp Pulse Resp B/P Pulse Ox O2 Delivery O2 Flow Rate FiO2 01/17/17 11:33 98.1 107 19 127/60 100 01/17/17 04:58 2.0 01/16/17 19:22 Nasal Cannula Intake and Output 01/16/17 01/16/17 01/17/17 15:00 23:00 07:00 Intake Total 205 ml 1355 ml 925 ml Balance 205 ml 1355 ml 925 ml Results Result Diagram: 01/16/17 0600 01/17/17 0652 Results 24 hrs Laboratory Tests Test 01/16/17 17:11 01/16/17 20:41 01/17/17 00:41 01/17/17 05:31 Bedside Glucose 194 242 H 193 67 L Test 01/17/17 06:27 01/17/17 06:52 01/17/17 07:47 01/17/17 12:52 Bedside Glucose 140 187 205 Anion Gap 13 Blood Urea Nitrogen 10 Calcium Level 8.2 L Carbon Dioxide Level 28 Chloride Level 104 Creatinine 0.53 Glucose Level 163 Potassium Level 3.9 Sodium Level 141 Medications Medications Current Medications Levetiracetam/ Dextrose (Keppra Iv/D5W) 105 ml @ 420 mls/hr Q12 IVPB Last administered on 01/17/17 10:28; Admin Dose 420 MLS/HR; Start 12/29/16 at 09:00 Acetaminophen (Tylenol Supp) 650 mg Q6H PRN [place] ELEVATED TEMPERATURE; Start at 02:30 Enoxaparin Sodium (Lovenox) 40 mg DAILY SC Last administered on 01/17/17 10:27 ; Admin Dose 40 MG; Start 12/29/16 at 09:00 Miscellaneous Information 1 ea NOTE XX ; Start 12/29/16 at 03:00 Glucose (Glutose) 15 gm Q15M PRN PO DECREASED GLUCOSE; Start 12/29/16 at 03:00 Glucose (Glutose) 22.5 gm Q15M PRN PO DECREASED GLUCOSE; Start 12/29/16 at 03: 00 Dextrose (D50w Syringe) 25 ml Q15M PRN IV DECREASED GLUCOSE Last administered on 01/17/17 06:05; Admin Dose 25 ML; Start 12/29/16 at 03:00 Dextrose (D50w Syringe) 50 ml Q15M PRN IV DECREASED GLUCOSE Last administered on 01/06/17 05:56; Admin Dose 50 ML; Start 12/29/16 at 03:00 Glucagon (Glucagen) 1 mg Q15M PRN IM DECREASED GLUCOSE; Start 12/29/16 at 03:00 Glucose (Glutose) 15 gm Q15M PRN BUCCAL DECREASED GLUCOSE; Start 12/29/16 at 03 :00 Atorvastatin Calcium (Lipitor) 40 mg DAILY@21 PO Last administered on 20:59; Admin Dose 40 MG; Start 12/31/16 at 21:00 Collagenase (Santyl) 1 applic DAILY TOP Last administered on 01/17/17 10:28; Admin Dose 1 APPLIC; Start 01/03/17 at 09:00 Enalaprilat (Vasotec Iv) 1.25 mg Q2 PRN IV ELEVATED BLOOD PRESSURE; Start at 23:30 Morphine Sulfate (morphine) 2 mg Q4H PRN IV PAIN LEVEL 7-10 Last administered on 01/17/17 00:42; Admin Dose 2 MG; Start 01/10/17 at 22:00 Diltiazem HCl 60 mg 60 mg Q8 NGT Last administered on 01/17/17 06:09; Admin Dose 60 MG; Start 01/11/17 at 14:00 Piperacillin Sod/ Tazobactam Sod 100 ml @ 200 mls/hr Q8 IVPB Last administered on 01/17/17 06:07; Admin Dose 200 MLS/HR; Start 01/11/17 at 22:00 Potassium Chloride/Sodium Chloride 1,000 ml @ 40 mls/hr Q24H IV Last administered on 01/16/17 20:59; Admin Dose 40 MLS/HR; Start 01/11/17 at 21:30 Vancomycin HCl (Vancocin) 250 ml @ 125 mls/hr Q24H IVPB Last administered on 21:59; Admin Dose 125 MLS/HR; Start 01/14/17 at 22:00 Insulin Aspart (Novolog Insulin Pen) NOVOLOG *MILD* ALGORI... Q4 SC Last administered on 01/17/17 12:56; Admin Dose 2 UNIT; Start 01/14/17 at 17:00 Insulin Glargine (Lantus) 10 unit QHS SC Last administered on 01/16/17 21:13; Admin Dose 10 UNIT; Start 01/16/17 at 21:00 Miscellaneous Information (*Rx Drug Level Order Reminder*) VANCO TR LEVEL PRIOR... ONCE ONCE XX ; Start 01/17/17 at 21:00; Stop 01/17/17 at 21:01 MELODIE RAMIREZ NP Jan 17, 2017 13:37
[2017-01-17 15:00] VITALS: BP 141/65; RESP 19
--- NOTE | 2017-01-17 17:16 | PN ---
Date/Time of Note Date/Time of Note DATE: 01/17/17 TIME: 17:15 Assessment/Plan VTE Prophylaxis VTE Prophylaxis Intervention: LMWH Lines/Catheters IV Catheter Type (from Nrs): PICC Line Central line still needed: Yes Urinary Cath still in place: No Assessment/Plan Assessment/Plan 1. Tonic-clonic seizure. - per Dr. Lee in neurology - continue Keppra. - seizure precautions 2. Staph bacteremia. Continue vancomycin. Repeat blood cultures - per Dr. Coffman from infectious disease standpoint. 3. Schizophrenia and bipolar disorder- no acute issues reported. 4. Hypertension. Patient is currently normotensive. 5. Diabetes mellitus. - Glycemic control, BS stable - Continue Lantus and NovoLog per sliding scale. 6. Dyslipidemia. Continue Crestor. 7. Dysphasia, patient failed swallow eval, continue IV fluids. - per Dr. Simpson is following in gastroenterology consultation, s/p G-tube placement. 8. Sinus tachycardia was episodes of atrial tachycardia. - per Dr. Coronel from cardiology standpoint. [facility]. Further recommendations based on clinical course. Lovenox for DVT prophylaxis. Plan of care discussed with Dr. Aly. Subjective 24 Hr Interval Summary Free Text/Dictation NAD, sp GT placement. no fever nausea vomiting reported, noted. DW staff. Eyes: no complaints ENT: no complaints Respiratory: no complaints Cardiovascular: no complaints Gastrointestinal: no complaints Genitourinary: no complaints Skin: no complaints Neurologic: no complaints Endocrine: no complaints Lymphatic: no complaints Psychological: no complaints Immunologic: no complaints Exam/Review of Systems Vital Signs Vitals Vital Signs Date Time Temp Pulse Resp B/P Pulse Ox O2 Delivery O2 Flow Rate FiO2 01/17/17 15:00 97.7 102 19 141/65 100 01/17/17 04:58 2.0 01/16/17 19:22 Nasal Cannula Intake and Output 01/16/17 01/16/17 01/17/17 15:00 23:00 07:00 Intake Total 205 ml 1355 ml 925 ml Balance 205 ml 1355 ml 925 ml Exam Constitutional: alert Psych: nl mood/affect Head: atraumatic Eyes: EOMI ENMT: nl external ears & nose Neck: non-tender Respiratory: clear to auscultation Cardiovascular: nl pulses Gastrointestinal: non-tender, soft Extremities: normal pulses Results Result Diagram: 01/16/17 0600 01/17/17 0652 Results 24 hrs Laboratory Tests Test 01/16/17 20:41 01/17/17 00:41 01/17/17 05:31 01/17/17 06:27 Bedside Glucose 242 H 193 67 L 140 Test 01/17/17 06:52 01/17/17 07:47 01/17/17 12:52 Anion Gap 13 Blood Urea Nitrogen 10 Calcium Level 8.2 L Carbon Dioxide Level 28 Chloride Level 104 Creatinine 0.53 Glucose Level 163 Potassium Level 3.9 Sodium Level 141 Bedside Glucose 187 205 Medications Medications Current Medications Levetiracetam/ Dextrose (Keppra Iv/D5W) 105 ml @ 420 mls/hr Q12 IVPB Last administered on 01/17/17 10:28; Admin Dose 420 MLS/HR; Start 12/29/16 at 09:00 Acetaminophen (Tylenol Supp) 650 mg Q6H PRN CA ELEVATED TEMPERATURE; Start at 02:30 Enoxaparin Sodium (Lovenox) 40 mg DAILY SC Last administered on 01/17/17 10:27 ; Admin Dose 40 MG; Start 12/29/16 at 09:00 Miscellaneous Information 1 ea NOTE XX ; Start 12/29/16 at 03:00 Glucose (Glutose) 15 gm Q15M PRN PO DECREASED GLUCOSE; Start 12/29/16 at 03:00 Glucose (Glutose) 22.5 gm Q15M PRN PO DECREASED GLUCOSE; Start 12/29/16 at 03: 00 Dextrose (D50w Syringe) 25 ml Q15M PRN IV DECREASED GLUCOSE Last administered on 01/17/17 06:05; Admin Dose 25 ML; Start 12/29/16 at 03:00 Dextrose (D50w Syringe) 50 ml Q15M PRN IV DECREASED GLUCOSE Last administered on 01/06/17 05:56; Admin Dose 50 ML; Start 12/29/16 at 03:00 Glucagon (Glucagen) 1 mg Q15M PRN IM DECREASED GLUCOSE; Start 12/29/16 at 03:00 Glucose (Glutose) 15 gm Q15M PRN BUCCAL DECREASED GLUCOSE; Start 12/29/16 at 03 :00 Atorvastatin Calcium (Lipitor) 40 mg DAILY@21 PO Last administered on 20:59; Admin Dose 40 MG; Start 12/31/16 at 21:00 Collagenase (Santyl) 1 applic DAILY TOP Last administered on 01/17/17 10:28; Admin Dose 1 APPLIC; Start 01/03/17 at 09:00 Enalaprilat (Vasotec Iv) 1.25 mg Q2 PRN IV ELEVATED BLOOD PRESSURE; Start at 23:30 Morphine Sulfate (morphine) 2 mg Q4H PRN IV PAIN LEVEL 7-10 Last administered on 01/17/17 00:42; Admin Dose 2 MG; Start 01/10/17 at 22:00 Diltiazem HCl 60 mg 60 mg Q8 NGT Last administered on 01/17/17 14:42; Admin Dose 60 MG; Start 01/11/17 at 14:00 Piperacillin Sod/ Tazobactam Sod 100 ml @ 200 mls/hr Q8 IVPB Last administered on 01/17/17 14:38; Admin Dose 200 MLS/HR; Start 01/11/17 at 22:00 Potassium Chloride/Sodium Chloride 1,000 ml @ 40 mls/hr Q24H IV Last administered on 01/16/17 20:59; Admin Dose 40 MLS/HR; Start 01/11/17 at 21:30 Vancomycin HCl (Vancocin) 250 ml @ 125 mls/hr Q24H IVPB Last administered on 21:59; Admin Dose 125 MLS/HR; Start 01/14/17 at 22:00 Insulin Aspart (Novolog Insulin Pen) NOVOLOG *MILD* ALGORI... Q4 SC Last administered on 01/17/17 12:56; Admin Dose 2 UNIT; Start 01/14/17 at 17:00 Insulin Glargine (Lantus) 10 unit QHS SC Last administered on 01/16/17 21:13; Admin Dose 10 UNIT; Start 01/16/17 at 21:00 Miscellaneous Information (*Rx Drug Level Order Reminder*) VANCO TR LEVEL PRIOR... ONCE ONCE XX ; Start 01/17/17 at 21:00; Stop 01/17/17 at 21:01 MICHAEL COLINDRES Jan 17, 2017 17:16
--- NOTE | 2017-01-17 18:40 | CONS ---
Date/Time of Note Date/Time of Note DATE: 01/17/17 TIME: 18:36 Assessment/Plan Assessment/Plan Additional Assessment/Plan Seizure UTI Sinus tachycardia with episodes of atrial tachycardia Preserved ejection fraction Psychiatric disorder Acute decompensated diastolic congestive heart failure -Patient with increased evidence of volume overload. Would stop IV fluids since patient receiving nutrition via PEG. Would start gentle diuretic therapy. Maintain potassium above 4.0 and magnesium above 2.0. Consultation Date/Type/Reason Admit Date/Time Dec 28, 2016 at 16:56 Initial Consult Date 12/30/16 Type of Consultation: cv Referring Provider: LUZMA HYMAN MD 24 HR Interval Summary Free Text/Dictation Patient seen and examined Exam/Review of Systems Vital Signs Vitals Vital Signs Date Time Temp Pulse Resp B/P Pulse Ox O2 Delivery O2 Flow Rate FiO2 01/17/17 15:00 97.7 102 19 141/65 100 01/17/17 04:58 2.0 01/16/17 19:22 Nasal Cannula Intake and Output 01/16/17 01/16/17 01/17/17 15:00 23:00 07:00 Intake Total 205 ml 1355 ml 925 ml Balance 205 ml 1355 ml 925 ml Exam Follow some basic commands, moaning at times, no apparent distress Constitutional: alert Head: normocephalic Neck: supple Respiratory: other (Coarse breath sounds bilaterally, no wheezing) Cardiovascular: other (S1-S2 heard), regular rate and rhythm Gastrointestinal: bowel sounds, non-tender, soft Extremities: edema Results Result Diagram: 01/16/17 0600 01/17/17 0652 Results 24 hrs Laboratory Tests Test 01/16/17 20:41 01/17/17 00:41 01/17/17 05:31 01/17/17 06:27 Bedside Glucose 242 H 193 67 L 140 Test 01/17/17 06:52 01/17/17 07:47 01/17/17 12:52 01/17/17 17:29 Anion Gap 13 Blood Urea Nitrogen 10 Calcium Level 8.2 L Carbon Dioxide Level 28 Chloride Level 104 Creatinine 0.53 Glucose Level 163 Potassium Level 3.9 Sodium Level 141 Bedside Glucose 187 205 133 Medications Medications Current Medications Levetiracetam/ Dextrose (Keppra Iv/D5W) 105 ml @ 420 mls/hr Q12 IVPB Last administered on 01/17/17 10:28; Admin Dose 420 MLS/HR; Start 12/29/16 at 09:00 Acetaminophen (Tylenol Supp) 650 mg Q6H PRN [place] ELEVATED TEMPERATURE; Start at 02:30 Enoxaparin Sodium (Lovenox) 40 mg DAILY SC Last administered on 01/17/17 10:27 ; Admin Dose 40 MG; Start 12/29/16 at 09:00 Miscellaneous Information 1 ea NOTE XX ; Start 12/29/16 at 03:00 Glucose (Glutose) 15 gm Q15M PRN PO DECREASED GLUCOSE; Start 12/29/16 at 03:00 Glucose (Glutose) 22.5 gm Q15M PRN PO DECREASED GLUCOSE; Start 12/29/16 at 03: 00 Dextrose (D50w Syringe) 25 ml Q15M PRN IV DECREASED GLUCOSE Last administered on 01/17/17 06:05; Admin Dose 25 ML; Start 12/29/16 at 03:00 Dextrose (D50w Syringe) 50 ml Q15M PRN IV DECREASED GLUCOSE Last administered on 01/06/17 05:56; Admin Dose 50 ML; Start 12/29/16 at 03:00 Glucagon (Glucagen) 1 mg Q15M PRN IM DECREASED GLUCOSE; Start 12/29/16 at 03:00 Glucose (Glutose) 15 gm Q15M PRN BUCCAL DECREASED GLUCOSE; Start 12/29/16 at 03 :00 Atorvastatin Calcium (Lipitor) 40 mg DAILY@21 PO Last administered on 20:59; Admin Dose 40 MG; Start 12/31/16 at 21:00 Collagenase (Santyl) 1 applic DAILY TOP Last administered on 01/17/17 10:28; Admin Dose 1 APPLIC; Start 01/03/17 at 09:00 Enalaprilat (Vasotec Iv) 1.25 mg Q2 PRN IV ELEVATED BLOOD PRESSURE; Start at 23:30 Morphine Sulfate (morphine) 2 mg Q4H PRN IV PAIN LEVEL 7-10 Last administered on 01/17/17 00:42; Admin Dose 2 MG; Start 01/10/17 at 22:00 Diltiazem HCl 60 mg 60 mg Q8 NGT Last administered on 01/17/17 14:42; Admin Dose 60 MG; Start 01/11/17 at 14:00 Piperacillin Sod/ Tazobactam Sod 100 ml @ 200 mls/hr Q8 IVPB Last administered on 01/17/17 14:38; Admin Dose 200 MLS/HR; Start 01/11/17 at 22:00 Potassium Chloride/Sodium Chloride 1,000 ml @ 40 mls/hr Q24H IV Last administered on 01/16/17 20:59; Admin Dose 40 MLS/HR; Start 01/11/17 at 21:30 Vancomycin HCl (Vancocin) 250 ml @ 125 mls/hr Q24H IVPB Last administered on 21:59; Admin Dose 125 MLS/HR; Start 01/14/17 at 22:00 Insulin Aspart (Novolog Insulin Pen) NOVOLOG *MILD* ALGORI... Q4 SC Last administered on 01/17/17 12:56; Admin Dose 2 UNIT; Start 01/14/17 at 17:00 Insulin Glargine (Lantus) 10 unit QHS SC Last administered on 01/16/17 21:13; Admin Dose 10 UNIT; Start 01/16/17 at 21:00 Miscellaneous Information (*Rx Drug Level Order Reminder*) VANCO TR LEVEL PRIOR... ONCE ONCE XX ; Start 01/17/17 at 21:00; Stop 01/17/17 at 21:01 Gamal Coronel DO Jan 17, 2017 18:40
[2017-01-17] MEDS ORDERED: FUROSEMIDE 20 MG INJ IV ONE (19:00)
[2017-01-17] MEDS ORDERED: POTASSIUM CHLORIDE 20 MEQ POWDER FOR ORAL SOLN GTB ONE ×2 (19:00→20:00)
[2017-01-17] MEDS ORDERED: MAGNESIUM SULFATE 2 GM/50 ML 50 ML IVPB ONE ×2 (19:00→20:00)
[2017-01-17 20:00] VITALS: BP 122/60; PULSE 109; RESP 15
[2017-01-17] MEDS: ATORVASTATIN 40 MG TAB PO SCH (20:44)
[2017-01-17] MEDS: INSULIN GLARGINE [LANtus] 3 ML PEN SC SCH (20:49)
[2017-01-17] MEDS: VANCOMYCIN 1 GM in NS 250 ML IVPB SCH (23:10)
[2017-01-18] VITALS: BP 110/63; PULSE 104; RESP 15
[2017-01-18] MEDS: INSULIN ASPART [NOVOLOG] 3 ML PEN SC SCH ×6 (00:50→21:29)
[2017-01-18 02:49] VITALS: BP 130/60; RESP 18
[2017-01-18] MEDS: morphine 2 MG INJ IV PRN (03:11)
[2017-01-18] MEDS: PIPER-TAZO 3.375 GM IV (PMX) 100 ML IVPB SCH (05:31)
[2017-01-18] MEDS: FUROSEMIDE 40 MG TAB GTB SCH ×2 (05:34→17:40)
[2017-01-18] MEDS: DILTIAZEM 60 MG TAB NGT SCH ×3 (05:34→21:13)
[2017-01-18 06:44] LABS: BASOPHILS % 0.8 % (0.0-2.0); EOSINOPHILS # 0.2 10^3/ul (0.0-0.5); EOSINOPHILS % 3.8 % (0.0-7.0); HEMATOCRIT 28.6 % (37.0-47.0); HEMOGLOBIN 9.4 g/dl (12.0-16.0); LYMPHOCYTES % 33.2 % (15.0-51.0); MEAN CORPUSCULAR HEMOGLOBIN 32.5 pg (29.0-33.0); MEAN CORPUSCULAR HGB CONC 33.1 g/dl (32.0-37.0); MEAN CORPUSCULAR VOLUME 98.3 fl (82.0-101.0); MEAN PLATELET VOLUME 7.7 fl (7.4-10.4); MONOCYTE # 0.5 10^3/ul (0.3-0.9); MONOCYTES % 7.9 % (0.0-11.0); NEUTROPHIL # 3.3 10^3/ul (1.6-7.5); NEUTROPHILS % 54.3 % (39.0-77.0); PLATELET COUNT 651 10^3/UL (140-440); RED BLOOD COUNT 2.91 10^6/ul (4.20-5.40); RED CELL DISTRIBUTION WIDTH 15.7 % (11.5-14.5)
[2017-01-18 06:55] LABS: CONDITION 1; LH ANALYZER COMMENTS 1
[2017-01-18 07:29] LABS: CREATININE 0.58 mg/dl (0.44-1.00)
[2017-01-18 07:30] LABS: CALCIUM 8.5 mg/dl (8.4-10.2)
[2017-01-18 08:11] VITALS: BP 124/58; RESP 24
[2017-01-18] MEDS: LEVETIRACETAM IV 500 MG in DEXTROSE 5% 100 ML IVPB SCH ×2 (09:02→21:13)
[2017-01-18] MEDS: COLLAGENASE 30 GM TUBE TOP SCH (09:04)
[2017-01-18] MEDS: ENOXAPARIN 40 MG/0.4 ML SYG SC SCH (09:09)
--- NOTE | 2017-01-18 12:40 | CONS ---
Date/Time of Note Date/Time of Note DATE: 01/18/17 TIME: 12:39 Assessment/Plan Assessment/Plan Chief Complaint/Hosp Course SUBJECTIVE: Patient is lying comfortably in bed. No fevers. MICROBIOLOGY: Blood cultures on admission grew coagulase-negative staph species. Repeat blood cultures negative. Urinalysis was also positive on admission. ANTIMICROBIALS: 1. Vancomycin. 2. Zosyn. INDWELLINGS: Trach, PEG, Shields, PICC line placed on 12/10/2016. PHYSICAL EXAMINATION: GENERAL: Fragile, chronically ill-appearing, middle-aged white woman who is awake, in no distress. HEENT: Head atraumatic, normocephalic. Sclerae anicteric. Buccal mucosa pink , dry. NECK: Supple. CHEST: Rise symmetrical. Breath sounds diminished to bases. HEART: S1, S2. ABDOMEN: Soft, bowel tones present. EXTREMITIES: With trace edema. SKIN: Positive for anasarca. ASSESSMENT: 1. Resolving sepsis with coagulase-negative bacteremia low grade fevers and tachycardia. 2. Urinary tract infection per urinalysis on admission with cultures being negative. 3. Aspiration pneumonia secondary to secretion retention and dysphagia, status post percutaneous endoscopic gastrostomy. 4. Seizure disorder. 5. Diabetes. 6. Severe decompensated state. PLAN: The patient remains stable. Repeat blood cultures have been negative. Will dc abx and observe. Continue anti-aspiration precautions, anti-seizure precautions. DW staff Problems: Consultation Date/Type/Reason Admit Date/Time Dec 28, 2016 at 16:56 Initial Consult Date 12/30/16 Type of Consultation: id Referring Provider: LUZMA HYMAN MD Exam/Review of Systems Vital Signs Vitals Vital Signs Date Time Temp Pulse Resp B/P Pulse Ox O2 Delivery O2 Flow Rate FiO2 01/18/17 08:11 98.7 109 24 124/58 96 01/18/17 00:00 Room Air 01/17/17 04:58 2.0 Intake and Output 01/17/17 01/17/17 01/18/17 15:00 23:00 07:00 Intake Total 785 ml 1170 ml Output Total 0 ml Balance 785 ml 1170 ml Results Result Diagram: 01/18/17 0535 01/18/17 0535 Results 24 hrs Laboratory Tests Test 01/17/17 12:52 01/17/17 17:29 01/17/17 20:42 01/17/17 21:10 Bedside Glucose 205 133 142 Vancomycin Level Trough 14.4 Test 01/18/17 00:44 01/18/17 05:04 01/18/17 05:35 01/18/17 09:05 Bedside Glucose 197 144 136 Anion Gap 12 Basophils # 0.0 Basophils % 0.8 Blood Morphology Comment Blood Urea Nitrogen 11 Calcium Level 8.5 Carbon Dioxide Level 32 H Chloride Level 99 Creatinine 0.58 Eosinophils # 0.2 Eosinophils % 3.8 Glucose Level 138 Hematocrit 28.6 L Hemoglobin 9.4 L Lymphocytes # 2.0 Lymphocytes % 33.2 Magnesium Level 2.1 Mean Corpuscular Hemoglobin 32.5 Mean Corpuscular Hemoglobin Concent 33.1 Mean Corpuscular Volume 98.3 Mean Platelet Volume 7.7 Monocytes # 0.5 Monocytes % 7.9 Neutrophils # 3.3 Neutrophils % 54.3 Nucleated Red Blood Cells # 0.0 Nucleated Red Blood Cells % 0.0 Platelet Count 651 H Potassium Level 4.0 Red Blood Count 2.91 L Red Cell Distribution Width 15.7 H Sodium Level 139 White Blood Count 6.0 Medications Medications Current Medications Levetiracetam/ Dextrose (Keppra Iv/D5W) 105 ml @ 420 mls/hr Q12 IVPB Last administered on 01/18/17 09:02; Admin Dose 420 MLS/HR; Start 12/29/16 at 09:00 Acetaminophen (Tylenol Supp) 650 mg Q6H PRN [place] ELEVATED TEMPERATURE; Start at 02:30 Enoxaparin Sodium (Lovenox) 40 mg DAILY SC Last administered on 01/18/17 09:09 ; Admin Dose 40 MG; Start 12/29/16 at 09:00 Miscellaneous Information 1 ea NOTE XX ; Start 12/29/16 at 03:00 Glucose (Glutose) 15 gm Q15M PRN PO DECREASED GLUCOSE; Start 12/29/16 at 03:00 Glucose (Glutose) 22.5 gm Q15M PRN PO DECREASED GLUCOSE; Start 12/29/16 at 03: 00 Dextrose (D50w Syringe) 25 ml Q15M PRN IV DECREASED GLUCOSE Last administered on 01/17/17 06:05; Admin Dose 25 ML; Start 12/29/16 at 03:00 Dextrose (D50w Syringe) 50 ml Q15M PRN IV DECREASED GLUCOSE Last administered on 01/06/17 05:56; Admin Dose 50 ML; Start 12/29/16 at 03:00 Glucagon (Glucagen) 1 mg Q15M PRN IM DECREASED GLUCOSE; Start 12/29/16 at 03:00 Glucose (Glutose) 15 gm Q15M PRN BUCCAL DECREASED GLUCOSE; Start 12/29/16 at 03 :00 Atorvastatin Calcium (Lipitor) 40 mg DAILY@21 PO Last administered on 20:44; Admin Dose 40 MG; Start 12/31/16 at 21:00 Collagenase (Santyl) 1 applic DAILY TOP Last administered on 01/18/17 09:04; Admin Dose 1 APPLIC; Start 01/03/17 at 09:00 Enalaprilat (Vasotec Iv) 1.25 mg Q2 PRN IV ELEVATED BLOOD PRESSURE; Start at 23:30 Morphine Sulfate (morphine) 2 mg Q4H PRN IV PAIN LEVEL 7-10 Last administered on 01/18/17 03:11; Admin Dose 2 MG; Start 01/10/17 at 22:00 Diltiazem HCl 60 mg 60 mg Q8 NGT Last administered on 01/18/17 05:34; Admin Dose 60 MG; Start 01/11/17 at 14:00 Piperacillin Sod/ Tazobactam Sod 100 ml @ 200 mls/hr Q8 IVPB Last administered on 01/18/17 05:31; Admin Dose 200 MLS/HR; Start 01/11/17 at 22:00 Vancomycin HCl (Vancocin) 250 ml @ 125 mls/hr Q24H IVPB Last administered on 23:10; Admin Dose 125 MLS/HR; Start 01/14/17 at 22:00 Insulin Aspart (Novolog Insulin Pen) NOVOLOG *MILD* ALGORI... Q4 SC Last administered on 01/18/17 05:09; Admin Dose 1 UNIT; Start 01/14/17 at 17:00 Insulin Glargine (Lantus) 10 unit QHS SC Last administered on 01/17/17 20:49; Admin Dose 10 UNIT; Start 01/16/17 at 21:00 MELODIE RAMIREZ NP Jan 18, 2017 12:40
--- NOTE | 2017-01-18 14:40 | CONS ---
Date/Time of Note Date/Time of Note DATE: 01/18/17 TIME: 14:39 Assessment/Plan Assessment/Plan Additional Assessment/Plan Seizure UTI Sinus tachycardia with episodes of atrial tachycardia Preserved ejection fraction Psychiatric disorder Acute decompensated diastolic congestive heart failure -Edema is improving, will decrease diuretics to daily in the next day. Keep potassium above 4.0 and magnesium above 2.0. Consultation Date/Type/Reason Admit Date/Time Dec 28, 2016 at 16:56 Initial Consult Date 12/30/16 Type of Consultation: cv Referring Provider: LUZMA HYMAN MD 24 HR Interval Summary Free Text/Dictation Patient seen and examined Exam/Review of Systems Vital Signs Vitals Vital Signs Date Time Temp Pulse Resp B/P Pulse Ox O2 Delivery O2 Flow Rate FiO2 01/18/17 08:11 98.7 109 24 124/58 96 01/18/17 00:00 Room Air 01/17/17 04:58 2.0 Intake and Output 01/17/17 01/17/17 01/18/17 15:00 23:00 07:00 Intake Total 785 ml 1170 ml Output Total 0 ml Balance 785 ml 1170 ml Exam Awake, occasionally following commands Head: normocephalic Neck: supple Respiratory: other (Coarse breath sounds bilaterally, no wheezing) Cardiovascular: other (S1-S2 heard), regular rate and rhythm Gastrointestinal: bowel sounds, non-tender, soft Extremities: edema Results Result Diagram: 01/18/17 0535 01/18/17 0535 Results 24 hrs Laboratory Tests Test 01/17/17 17:29 01/17/17 20:42 01/17/17 21:10 01/18/17 00:44 Bedside Glucose 133 142 197 Vancomycin Level Trough 14.4 Test 01/18/17 05:04 01/18/17 05:35 01/18/17 09:05 01/18/17 13:19 Bedside Glucose 144 136 181 Anion Gap 12 Basophils # 0.0 Basophils % 0.8 Blood Morphology Comment Blood Urea Nitrogen 11 Calcium Level 8.5 Carbon Dioxide Level 32 H Chloride Level 99 Creatinine 0.58 Eosinophils # 0.2 Eosinophils % 3.8 Glucose Level 138 Hematocrit 28.6 L Hemoglobin 9.4 L Lymphocytes # 2.0 Lymphocytes % 33.2 Magnesium Level 2.1 Mean Corpuscular Hemoglobin 32.5 Mean Corpuscular Hemoglobin Concent 33.1 Mean Corpuscular Volume 98.3 Mean Platelet Volume 7.7 Monocytes # 0.5 Monocytes % 7.9 Neutrophils # 3.3 Neutrophils % 54.3 Nucleated Red Blood Cells # 0.0 Nucleated Red Blood Cells % 0.0 Platelet Count 651 H Potassium Level 4.0 Red Blood Count 2.91 L Red Cell Distribution Width 15.7 H Sodium Level 139 White Blood Count 6.0 Medications Medications Current Medications Levetiracetam/ Dextrose (Keppra Iv/D5W) 105 ml @ 420 mls/hr Q12 IVPB Last administered on 01/18/17 09:02; Admin Dose 420 MLS/HR; Start 12/29/16 at 09:00 Acetaminophen (Tylenol Supp) 650 mg Q6H PRN [place] ELEVATED TEMPERATURE; Start at 02:30 Enoxaparin Sodium (Lovenox) 40 mg DAILY SC Last administered on 01/18/17 09:09 ; Admin Dose 40 MG; Start 12/29/16 at 09:00 Miscellaneous Information 1 ea NOTE XX ; Start 12/29/16 at 03:00 Glucose (Glutose) 15 gm Q15M PRN PO DECREASED GLUCOSE; Start 12/29/16 at 03:00 Glucose (Glutose) 22.5 gm Q15M PRN PO DECREASED GLUCOSE; Start 12/29/16 at 03: 00 Dextrose (D50w Syringe) 25 ml Q15M PRN IV DECREASED GLUCOSE Last administered on 01/17/17 06:05; Admin Dose 25 ML; Start 12/29/16 at 03:00 Dextrose (D50w Syringe) 50 ml Q15M PRN IV DECREASED GLUCOSE Last administered on 01/06/17 05:56; Admin Dose 50 ML; Start 12/29/16 at 03:00 Glucagon (Glucagen) 1 mg Q15M PRN IM DECREASED GLUCOSE; Start 12/29/16 at 03:00 Glucose (Glutose) 15 gm Q15M PRN BUCCAL DECREASED GLUCOSE; Start 12/29/16 at 03 :00 Atorvastatin Calcium (Lipitor) 40 mg DAILY@21 PO Last administered on 20:44; Admin Dose 40 MG; Start 12/31/16 at 21:00 Collagenase (Santyl) 1 applic DAILY TOP Last administered on 01/18/17 09:04; Admin Dose 1 APPLIC; Start 01/03/17 at 09:00 Enalaprilat (Vasotec Iv) 1.25 mg Q2 PRN IV ELEVATED BLOOD PRESSURE; Start at 23:30 Morphine Sulfate (morphine) 2 mg Q4H PRN IV PAIN LEVEL 7-10 Last administered on 01/18/17 03:11; Admin Dose 2 MG; Start 01/10/17 at 22:00 Diltiazem HCl (Cardizem) 60 mg Q8 NGT Last administered on 01/18/17 13:20; Admin Dose 60 MG; Start 01/11/17 at 14:00 Insulin Aspart (Novolog Insulin Pen) NOVOLOG *MILD* ALGORI... Q4 SC Last administered on 01/18/17 13:30; Admin Dose 2 UNIT; Start 01/14/17 at 17:00 Insulin Glargine (Lantus) 10 unit QHS SC Last administered on 01/17/17 20:49; Admin Dose 10 UNIT; Start 01/16/17 at 21:00 Gamal Coronel DO Jan 18, 2017 14:40
[2017-01-18 20:27] VITALS: BP 113/53; RESP 16
[2017-01-18] MEDS: ATORVASTATIN 40 MG TAB PO SCH (21:13)
[2017-01-18] MEDS: INSULIN GLARGINE [LANtus] 3 ML PEN SC SCH (21:21)
[2017-01-19] MEDS: INSULIN ASPART [NOVOLOG] 3 ML PEN SC SCH ×3 (01:08→09:53)
[2017-01-19] MEDS: morphine 2 MG INJ IV PRN (01:30)
[2017-01-19 06:17] VITALS: BP 114/53; RESP 16
[2017-01-19] MEDS: DILTIAZEM 60 MG TAB NGT SCH (06:43)
--- NOTE | 2017-01-19 06:58 | RADRPT ---
PROCEDURE: XR Chest. CLINICAL INDICATION: PICC line removal. TECHNIQUE: Portable single view of the chest COMPARISON: 01/09/2017 FINDINGS: Right PICC line has been removed. Lung volumes are reduced compared with prior but there is improve d aeration of the left lower lobe with some subsegmental atelectasis remaining. Right basilar crowd ing. The heart size remains within normal limits. No pleural effusion. IMPRESSION: Removal of right PICC line. Improved left base aeration. RPTAT: HLBE Dalila Barton Physician Date Time Electronically viewed and signed by Dalila Barton, Physician on 01/19/2017 06:58 LE/
[2017-01-19 07:23] VITALS: BP 130/59; RESP 18
--- NOTE | 2017-01-19 08:29 | DS ---
DATE OF ADMISSION: 12/28/2016 DATE OF DISCHARGE: 01/18/2017 FINAL DIAGNOSES: 1. Tonic-clonic seizures. 1. Staphylococcus bacteremia. 2. Schizophrenia and bipolar disorder. 3. Hypertension. 4. Diabetes mellitus. 5. Dyslipidemia. 6. Dysphagia. 7. Sinus tachycardia, with an episode of atrial tachycardia. Resolved. BRIEF HISTORY: The patient is a 56-year-old female with a history of hypertension, diabetes, dyslip idemia, schizophrenia, bipolar disorder and a history of recent septic shock due to a urinary tract infection. The patient experienced t[facility]-cl[facility] and was im mediately brought to the emergency room of . The patient was admitted f or further evaluation and management. HOSPITAL COURSE: The patient was evaluated by Dr. Lee in neurology consultation. The patient un derwent a brain CT, which was negative for any acute intracranial pathology. It showed mild to mode rate volume loss with central predominance and mild chronic small vessel ischemic changes. She also underwent MRI of the brain, which was also negative for any acute ischemic infarction or acute intr acranial abnormalities. The patient was started on Keppra. The patient was also noted to have a ur inary tract infection, per urinalysis, and was [facility] The patient's blood cultures grew coagulase negative staph. The patient also had a low-grade fever and tachycardia on admission and was started on broad-spectrum antibiotics. The patient also had tachycardia and was evaluated by Dr. Coronel in cardiology consultation. The patient had a Fole y catheter reinserted and urine output was closely monitored. The patient has completed the antibio tics for bacteremia. The patient's condition is improved. The patient had the Shields catheter disco ntinued and was able to urinate; however, remains incontinent. The patient had multiple trials of a speech swallow evaluation; however, failed speech swallow on multiple occasions and the patient was evaluated by Dr. Simpson in gastroenterology consultation and underwent G-tube placement. The patie nt was restarted on feedings and tolerated G-tube feedings well, with no nausea and vomiting. The p atient's condition overall improved and the patient will be discharged to a [facility] facility today. CONDITION ON DISCHARGE: Hemodynamically stable. ACTIVITY: As patient tolerates. DIET: Continue G-tube feeding at 60 mL per hour. DISCHARGE MEDICATIONS: 1. Tylenol. 2. Santyl ointment topical. 3. Cardizem 60 mg per G-tube q.8h. 4. Lovenox 40 mg subcutaneous daily. 5. Lasix 20 mg per G-tube daily. 6. Glucose per hypoglycemia protocol. 7. NovoLog per mild algorithm sliding scale. 8. Lantus 10 units subcutaneous at bedtime. 9. Keppra 500 mg per G-tube q.12h. 10. Pro-Stat liquid. 11. Ascorbic acid. 12. Colace. 13. Cranberry extract. 14. Potassium chloride 20 mEq daily. 15. Fleets Enema p.r.n. for constipation. 16. Zinc sulfate. Interdisciplinary plan of care was established for this patient. Plan of care was discussed with Dr Janiya Hyman. Dictated By: DENA SALGUERO HARDWOOD FLOOR FINISHER for LUZMA HYMAN MD, SR/RUSTY Conf#: [id number] DID#: [id number]
[2017-01-19] MEDS ORDERED: FUROSEMIDE 20 MG TAB GTB SCH (09:00)
--- NOTE | 2017-01-19 09:03 | PN ---
Date/Time of Note Date/Time of Note DATE: 01/19/17 TIME: 09:02 Assessment/Plan VTE Prophylaxis VTE Prophylaxis Intervention: other Lines/Catheters IV [facility] PICC Line Central line still needed: Yes Urinary Cath still in place: No Assessment/Plan Chief Complaint/Hosp Course 1. Tonic-clonic seizure. Patient is followed by Dr. Lee in neurology, continue Keppra. 2. Urinary tract infection per UA. Obtain urine culture. Continue cefepime. 3. Schizophrenia and bipolar disorder. 4. Hypertension. Patient is currently normotensive. 5. Diabetes mellitus. Continue Lantus and NovoLog with meals. 6. Dyslipidemia. Continue Crestor. 7. Dysphasia, patient failed swallow eval, continue IV fluids. Patient was to go to SNF yesterday, is still stable for transfer Problems: Subjective 24 Hr Interval Summary Free Text/Dictation Eyes open but not verbally responsive Exam/Review of Systems Vital Signs Vitals Vital Signs Date Time Temp Pulse Resp B/P Pulse Ox O2 Delivery O2 Flow Rate FiO2 01/19/17 07:23 99.0 131 18 130/59 96 01/18/17 00:00 Room Air 01/17/17 04:58 2.0 Intake and Output 01/18/17 01/18/17 01/19/17 15:00 23:00 07:00 Intake Total 210 ml Balance 210 ml Exam Constitutional: well developed Head: atraumatic, normocephalic Neck: supple Respiratory: diminished breath sounds Cardiovascular: regular rate and rhythm Gastrointestinal: non-tender, soft Results Result Diagram: 01/18/17 0535 01/18/17 0535 Results 24 hrs Laboratory Tests Test 01/18/17 09:05 01/18/17 13:19 01/18/17 17:39 01/18/17 21:15 Bedside Glucose 136 181 209 158 Test 01/19/17 01:05 01/19/17 04:58 Bedside Glucose 233 H 181 Medications Medications Current Medications Levetiracetam/ Dextrose (Keppra Iv/D5W) 105 ml @ 420 mls/hr Q12 IVPB Last administered on 01/18/17t 21:13; Admin Dose 420 MLS/HR; Start 12/29/16 at 09:00 Acetaminophen (Tylenol Supp) 650 mg Q6H PRN [place] ELEVATED TEMPERATURE; Start at 02:30 Enoxaparin Sodium (Lovenox) 40 mg DAILY SC Last administered on 01/18/17 09:09 ; Admin Dose 40 MG; Start 12/29/16 at 09:00 Miscellaneous Information 1 ea NOTE XX ; Start 12/29/16 at 03:00 Glucose (Glutose) 15 gm Q15M PRN PO DECREASED GLUCOSE; Start 12/29/16 at 03:00 Glucose (Glutose) 22.5 gm Q15M PRN PO DECREASED GLUCOSE; Start 12/29/16 at 03: 00 Dextrose (D50w Syringe) 25 ml Q15M PRN IV DECREASED GLUCOSE Last administered on 01/17/17 06:05; Admin Dose 25 ML; Start 12/29/16 at 03:00 Dextrose (D50w Syringe) 50 ml Q15M PRN IV DECREASED GLUCOSE Last administered on 01/06/17 05:56; Admin Dose 50 ML; Start 12/29/16 at 03:00 Glucagon (Glucagen) 1 mg Q15M PRN IM DECREASED GLUCOSE; Start 12/29/16 at 03:00 Glucose (Glutose) 15 gm Q15M PRN BUCCAL DECREASED GLUCOSE; Start 12/29/16 at 03 :00 Atorvastatin Calcium (Lipitor) 40 mg DAILY@21 PO Last administered on 21:13; Admin Dose 40 MG; Start 12/31/16 at 21:00 Collagenase (Santyl) 1 applic DAILY TOP Last administered on 01/18/17 09:04; Admin Dose 1 APPLIC; Start 01/03/17 at 09:00 Enalaprilat (Vasotec Iv) 1.25 mg Q2 PRN IV ELEVATED BLOOD PRESSURE; Start at 23:30 Morphine Sulfate (morphine) 2 mg Q4H PRN IV PAIN LEVEL 7-10 Last administered on 01/19/17 01:30; Admin Dose 2 MG; Start 01/10/17 at 22:00 Diltiazem HCl (Cardizem) 60 mg Q8 NGT Last administered on 01/19/17 06:43; Admin Dose 60 MG; Start 01/11/17 at 14:00 Insulin Aspart (Novolog Insulin Pen) NOVOLOG *MILD* ALGORI... Q4 SC Last administered on 01/19/17 05:02; Admin Dose 2 UNIT; Start 01/14/17 at 17:00 Insulin Glargine (Lantus) 10 unit QHS SC Last administered on 01/18/17t 21:21; Admin Dose 10 UNIT; Start 01/16/17 at 21:00 Furosemide (Lasix) 20 mg DAILY GTB ; Start 01/19/17 at 09:00 VIVIENNE MONTILLA Jan 19, 2017 09:03
[2017-01-19] MEDS: ENOXAPARIN 40 MG/0.4 ML SYG SC SCH (09:39)
[2017-01-19] MEDS: LEVETIRACETAM IV 500 MG in DEXTROSE 5% 100 ML IVPB SCH (09:41)
[2017-01-19] MEDS: COLLAGENASE 30 GM TUBE TOP SCH (09:41)
== END 2017-01-19 12:45 | disposition home or self-care (01) | DRG 314 ==
LOC: E/R 15:07 → MS4 16:56 → MS2 01-18 02:37
PROVIDERS: ADMIT Internal Medicine; ATTEND Internal Medicine
PROC: 0DH63UZ Insertion of Feeding Device into Stomach, Percutaneous Approach (ICD-10-PCS; 2017-01-10)
PROC: 02PYX3Z Removal of Infusion Device from Great Vessel, External Approach (ICD-10-PCS; principal; 2017-01-19)
DX: T80.218A Other infection due to central venous catheter, initial encounter (principal); L89.153 Pressure ulcer of sacral region, stage 3; J69.0 Pneumonitis due to inhalation of food and vomit; G93.40 Encephalopathy, unspecified; I67.3 Progressive vascular leukoencephalopathy; I50.33 Acute on chronic diastolic (congestive) heart failure; E43 Unspecified severe protein-calorie malnutrition; J18.9 Pneumonia, unspecified organism; G40.89 Other seizures; N39.0 Urinary tract infection, site not specified; I47.1 Supraventricular tachycardia; B95.7 Other staphylococcus as the cause of diseases classified elsewhere; B96.89 Other specified bacterial agents as the cause of diseases classified elsewhere; F20.9 Schizophrenia, unspecified; F31.9 Bipolar disorder, unspecified; E11.9 Type 2 diabetes mellitus without complications; E78.5 Hyperlipidemia, unspecified; E86.0 Dehydration; R13.10 Dysphagia, unspecified; L89.892 Pressure ulcer of other site, stage 2; Z68.22 Body mass index [BMI] 22.0-22.9, adult; I11.0 Hypertensive heart disease with heart failure
CPT/HCPCS: 36415; 70450; 70551; 71010; 80048; 80202; 81001; 81003; 82962; 83036; 83605; 83735; 84484; 85025; 87040; 87081; 87086; 92526; 92610; 93005; 95819; 96374; 96375; 97161; 97164; 97530; J1940; J0690; J0692; J0696; J1650; J1815; J1953; J2270; J2543; J3010; J3370; J3475; J3480; J7030; J7050

== ENCOUNTER 2017-03-18 21:07 | Inpatient (IN) | payer MEDICARE, OTHER ==
[~2017-03-18] VITALS: Ht 162.6 cm; Wt 50.6 kg
[~2017-03-18 21:07] MED LIST changes: +ACET325T33 GTB; -ACET325T33 PO; +AMIN30LI PO; +ASCO500C7 PO; -BIMA2.5D BOTH EYES; +BISA10SU75 PR; +CRAN425C GTB; -CRAN450C PO; -CRES10 PO; +DOCU-144 GTB; -DOCU-144 PO; -DULR PR; -HYDR-902 PO; -LANT3I SC; -MAGN400O4 PO; -MINE3.5O31 BOTH EYES; +MULT-105 GTB; -MULT-105 PO; -OLAN5TAB5 PO; +TRAM-40 PO; -TYL500 PO; +ZINC220T GTB
[2017-03-18] MEDS ORDERED: SODIUM CHLORIDE 0.9% 1L BAG IV* STA (21:36)
[2017-03-18] MEDS ORDERED: CARSR60 GTB (21:44)
[2017-03-18] MEDS ORDERED: ASCO500S2 GTB (21:51)
[2017-03-18] MEDS ORDERED: CRAN3875 GTB (21:52)
[2017-03-18] MEDS ORDERED: TRAM50TA2 GTB (21:54)
[2017-03-18] MEDS ORDERED: BISA-57 PO (21:55)
[2017-03-18] MEDS ORDERED: FERR220S2 GTB (22:02)
[2017-03-18 22:04] LABS: ADD SCAN DIFF NO
[2017-03-18] MEDS ORDERED: GLUC1KIT IJ (22:04)
[2017-03-18] MEDS ORDERED: UDKCL40 GTB (22:04)
[2017-03-18] MEDS ORDERED: KEP100S GTB (22:06)
[2017-03-18 22:07] LABS: ABNORMAL IP MESSAGE 1; BASOPHIL # 0.1 10^3/ul (0.0-0.1); BASOPHILS % 0.7 % (0.0-2.0); EOSINOPHILS # 0.1 10^3/ul (0.0-0.5); EOSINOPHILS % 0.9 % (0.0-7.0); HEMATOCRIT 35.9 % (37.0-47.0); HEMOGLOBIN 12.1 g/dl (12.0-16.0); LYMPHOCYTES # 0.6 10^3/ul (0.8-2.9); LYMPHOCYTES % 5.9 % (15.0-51.0); MEAN CORPUSCULAR HEMOGLOBIN 31.6 pg (29.0-33.0); MEAN CORPUSCULAR HGB CONC 33.7 g/dl (32.0-37.0); MEAN CORPUSCULAR VOLUME 93.7 fl (82.0-101.0); MEAN PLATELET VOLUME 10.9 fl (7.4-10.4); MONOCYTE # 0.6 10^3/ul (0.3-0.9); MONOCYTES % 6.2 % (0.0-11.0); NEUTROPHIL # 8.2 10^3/ul (1.6-7.5); NEUTROPHILS % 85.5 % (39.0-77.0); PLATELET COUNT 405 10^3/UL (140-415); RED BLOOD COUNT 3.83 10^6/ul (4.20-5.40); WHITE BLOOD COUNT 9.6 10^3/ul (4.8-10.8)
[2017-03-18] MEDS ORDERED: FURO-110 GTB (22:07)
[2017-03-18] MEDS ORDERED: ATOR40TA68 GTB (22:08)
[2017-03-18] MEDS ORDERED: ENOX40DI2 SC (22:09)
[2017-03-18] MEDS ORDERED: MAGN400O4 GTB (22:10)
[2017-03-18] MEDS ORDERED: NPH,100I5 SQ (22:11)
[2017-03-18] MEDS ORDERED: SENN-53 GTB (22:12)
[2017-03-18] MEDS ORDERED: TYL500 GTB (22:14)
[2017-03-18 22:16] LABS: ALBUMIN 4.1 g/dl (3.3-4.9); CHLORIDE 92 mmol/L (97-110); INR 0.95; PROTIME 12.7 Sec (12.2-14.2); SODIUM 134 mmol/L (135-144)
[2017-03-18 22:17] LABS: PARTIAL THROMBOPLASTIN TIME 29.8 Sec (25.0-35.0); POTASSIUM 4.2 mmol/L (3.5-5.1)
[2017-03-18] MEDS ORDERED: BISA10SU75 PR (22:17)
[2017-03-18 22:19] LABS: ALANINE AMINOTRANSFERASE 40 IU/L (13-69); ALBUMIN/GLOBULIN RATIO 1.07; ALKALINE PHOSPHATASE 156 IU/L (42-121); ANION GAP 20 (8-16); ASPARTATE AMINO TRANSFERASE 38 IU/L (15-46); BLOOD UREA NITROGEN 32 mg/dl (7-20); CARBON DIOXIDE 26 mmol/L (21-31); CREATININE 0.68 mg/dl (0.44-1.00); GLUCOSE 359 mg/dl (70-220); TOTAL PROTEIN 7.9 g/dl (6.1-8.1)
[2017-03-18 22:20] LABS: CALCIUM 9.7 mg/dl (8.4-10.2)
[2017-03-18 22:41] LABS: TROPONIN-I < 0.012 ng/ml (0.00-0.12)
--- NOTE | 2017-03-18 23:15 | RADRPT ---
PROCEDURE: XR Chest. CLINICAL INDICATION: Possible sepsis. TECHNIQUE: Portable AP semi - supine view of the chest was obtained. COMPARISON: 01/19/2017 FINDINGS: The cardiomediastinal silhouette is within normal limits. Trace bibasilar subsegmental atelectasis is present but there is no evidence of pneumonia. There is no evidence for pleural effusion, pneumo thorax or pulmonary vascular congestion. The osseous structures are intact with no evidence for acu te abnormality. RPTAT:HJJR IMPRESSION: Minimal bibasilar subsegmental atelectasis without evidence of pneumonia or significant change from 01/19/2017. Physician Kayla Date Time Electronically viewed and signed by Physician Kayla on 03/18/2017 23:15 JR/
[2017-03-19 03:31] VITALS: TEMP 98.1
[2017-03-19 03:36] LABS: ADD UMIC NO; URINE BILIRUBIN (Dip) NEGATIVE (NEGATIVE); URINE BLOOD (Dip) NEGATIVE (NEGATIVE); URINE COLOR LT. YELLOW (YELLOW); URINE GLUCOSE (Dip) >=1000 % (NEGATIVE); URINE KETONES (Dip) 15 (NEGATIVE); URINE LEUKOCYTE ESTERASE (Dip) NEGATIVE (NEGATIVE); URINE NITRITE (Dip) NEGATIVE (NEGATIVE); URINE TOTAL PROTEIN (Dip) NEGATIVE (NEGATIVE); URINE UROBILINOGEN (Dip) 0.2 E.U./dL (0.1-1.0)
[2017-03-19 04:00] VITALS: Ht 162.6 cm; Wt 50.6 kg
[2017-03-19] MEDS ORDERED: ONDA4TAB8 PO (04:54)
[2017-03-19] MEDS ORDERED: NA PHOSPHATE/BIPHOS 66.6 ML ENEMA PR PRN (05:00)
[2017-03-19] MEDS ORDERED: ACETAMINOPHEN 325 MG TAB GTB PRN (05:00)
[2017-03-19] MEDS ORDERED: GLUCAGON HUMAN RECOMBINANT 1 MG IJ SCH (05:00)
[2017-03-19] MEDS ORDERED: BISACODYL 10 MG SUPP PR PRN (05:00)
[2017-03-19] MEDS ORDERED: [UNRECOGNIZED DRUG - OTHER] IJ SCH (05:00)
[2017-03-19] MEDS ORDERED: ACETAMINOPHEN 500 MG TAB PO PRN (05:00)
[2017-03-19] MEDS ORDERED: DEXTROSE 50% 50 ML SYRINGE IV PRN ×2 (06:00)
[2017-03-19] MEDS ORDERED: GLUCOSE GEL 15 GRAM TUBE PO PRN ×2 (06:00)
[2017-03-19] MEDS ORDERED: GLUCAGON 1 MG INJ IM PRN (06:00)
[2017-03-19] MEDS ORDERED: DILTIAZEM (SR) 60 MG CAP PO SCH (06:00)
[2017-03-19] MEDS ORDERED: GLUCOSE GEL 15 GRAM TUBE BUCCAL PRN (06:00)
[2017-03-19] MEDS ORDERED: PENDING SANTYL ORDER FOR WOUND CARE XX PRN (06:00)
[2017-03-19] MEDS ORDERED: NA PHOSPHATE/BIPHOS 133 ML ENEMA PR PRN (06:30)
[2017-03-19] MEDS: FUROSEMIDE 20 MG TAB GTB SCH (07:52)
[2017-03-19 08:14] VITALS: BP 135/63; RESP 20
[2017-03-19] MEDS: CEFTRIAXONE 1 GM/50 ML (PMX) 50 ML IVPB SCH (08:31)
[2017-03-19] MEDS: MULTIVITAMINS/MINERALS TAB GTB SCH ×2 (08:32→21:18)
[2017-03-19] MEDS: ZINC SULFATE 220 MG CAP GTB SCH (08:32)
[2017-03-19] MEDS: POTASSIUM CHLORIDE 20 MEQ POWDER FOR ORAL SOLN GTB SCH (08:32)
[2017-03-19] MEDS: ASCORBIC ACID 500 MG TAB GTB SCH ×3 (08:32→21:19)
[2017-03-19] MEDS: FERROUS SULFATE 60 MG/ML 5ML CUP GTB SCH ×2 (08:33→21:19)
[2017-03-19] MEDS: traMADol 50 MG TAB GTB SCH ×2 (08:33→21:19)
[2017-03-19] MEDS: TRIMETHOPRIM/SULFAMETHOX (DS) TAB GTB SCH ×2 (08:33→21:18)
[2017-03-19] MEDS: LEVETIRACETAM (100 MG/ML) 5ML CUP GTB SCH ×2 (08:33→20:16)
[2017-03-19] MEDS: DOCUSATE SODIUM 100 MG CAP PO SCH (08:33)
[2017-03-19] MEDS: INSULIN ASPART [NOVOLOG] 3 ML PEN SC SCH ×3 (08:34→17:20)
[2017-03-19] MEDS: ENOXAPARIN 40 MG/0.4 ML SYG SC SCH (08:35)
[2017-03-19] MEDS: NPH, HUMAN INSULIN ISOPHANE 3ML VIAL SC SCH ×3 (08:38→21:20)
[2017-03-19] MEDS ORDERED: NON-FORMULARY/PATIENT OWN MED (Cran/Vitc/Mannose/Inulin/Brom (Uti-Stat Liquid) 3,875 MG) GTB SCH (09:00)
[2017-03-19] MEDS ORDERED: ASCORBIC ACID 100 MG/ML 120ML BTL GTB SCH (09:00)
[2017-03-19] MEDS ORDERED: LEVETIRACETAM (100 MG/ML PO SYG) GTB SCH (09:00)
[2017-03-19] MEDS ORDERED: NPH HUMAN INSULIN ISOPHANE 8 UNIT SQ SCH (09:00)
[2017-03-19] MEDS ORDERED: POTASSIUM CHLORIDE (1.33 MEQ/ML PO SYG) GTB SCH (09:00)
[2017-03-19] MEDS ORDERED: FERROUS SULFATE 330 MG GTB SCH (09:00)
[2017-03-19] MEDS ORDERED: NON-FORMULARY/PATIENT OWN MED (Cranberry Extract (Cranberry) 425 MG) GTB SCH (09:00)
[2017-03-19] MEDS: SOD CHLORIDE 0.9% 1,000 ML IV SCH (12:03)
--- NOTE | 2017-03-19 13:02 | HP ---
DATE OF ADMISSION: 03/19/2017 HISTORY OF PRESENT ILLNESS: The patient is a 56-year-old female known to me from previous admission . The patient with history of schizophrenia and bipolar disorder, hypertension, diabetes, dyslipide devan, dysphagia with G-tube placement and history of tonic-clonic seizures and a history of sepsis an d urinary tract infection. The previous admission the patient was recuperating at [facility] and was noted to be tachycardic with heart rate in 140s. The patient also noted to have swe lling of the left hand and was started on Septra and Keflex. The patient was sent from [facility] for further evaluation and management. On admission in the emergency room, the patient 's chemistry revealed elevated BUN to 32. The patient's white blood cell was 9.6; however, neutroph ils increased to 85.5. The patient underwent a chest x-ray which revealed minimal bibasilar subsegm ental atelectasis without evidence of pneumonia or significant change. The patient was given IV flu ids and admitted for further evaluation and management to medical/surgical floor. PAST MEDICAL HISTORY: Per HPI. PAST SURGICAL HISTORY: Status post G-tube placement. SOCIAL HISTORY: The patient currently is a resident of [facility]. No tobacco use, a lcohol use, or drug abuse noted. FAMILY HISTORY: Noncontributory. ALLERGIES: NO KNOWN ALLERGIES. MEDICATIONS ON ADMISSION: 1. Tylenol. 2. Vitamin C. 3. Atorvastatin. 4. Bisacodyl. 5. Cranberry extract. 6. Cardizem. 7. Colace. 8. Lovenox. 9. Ferrous sulfate. 10. Lasix. 11. Keppra. 12. Milk of magnesia. 13. Multivitamins and minerals. 14. NPH 8 units subQ t.i.d. 15. Zofran. 16. Potassium chloride. 17. Senna with enema p.r.n. for constipation. 18. Tramadol. 19. Zinc sulfate. REVIEW OF SYSTEMS: A 12-point review of systems is negative unless what is mentioned in the HPI. PHYSICAL ASSESSMENT GENERAL: Well-developed, well-nourished female, currently is lethargic, but easily arousable. VITAL SIGNS: On admission, temperature is 98.2, pulse is 136, blood pressure 145/66, respiratory ra te 18, oxygen saturation 94% on 2 L nasal cannula. HEENT: Head is atraumatic, normocephalic. Pupils equal, round, reactive to light and accommodation . Oral mucosa is pink and moist. NECK: Supple, no cervical lymphadenopathy, no thyromegaly. CHEST: Lungs clear bilaterally, slightly diminished at the bases. There is no rhonchi, wheezes, or rales noted. CARDIOVASCULAR: Normal S1, S2. No murmurs, gallops, clicks, rubs noted. The patient is tachycardi c. ABDOMEN: Round, soft, nondistended, nontender. G-tube with intact stoma. EXTREMITIES: There is no edema, clubbing, cyanosis. Pulses equal bilaterally, 2+. Left hand sligh t swelling. SKIN: There is no rash, petechiae. NEUROLOGIC: The patient is awake, alert, near baseline. LABORATORY DATA ON ADMISSION: CBC: White blood cells 9.6, hemoglobin 12.1, hematocrit 35.9, platel ets 405. Chemistry: Sodium is 134, potassium 4.2, chloride 92, carbon dioxide 26, anion gap 20, BU N is 32, creatinine 0.16, glucose 359, AST 38, ALT 40, alkaline phosphatase 156. Troponin less than 0.012. PT is 12.7, INR is 0.95, aPTT is 29.8. Urinalysis is unremarkable. ASSESSMENT AND PLAN: 1. Sinus tachycardia, most likely secondary to dehydration. Continue IV fluids. 2. Left hand swelling. The patient is pending MRI of the left hand. Will start patient on broad-s pectrum antibiotics for possible cellulitis. 3. Seizure disorder. Continue Keppra. 4. Dysphagia with percutaneous endoscopic gastrostomy. Continue G-tube feeding, aspiration precaut ions. 5. Diabetes mellitus type 2. Continue NPH. 6. Dyslipidemia. Continue statins. 7. Hypertension. The patient is currently normotensive. Will continue Lovenox for deep venous thr ombosis prophylaxis. 8. Schizophrenia and bipolar disorder. Will obtain urine and blood cultures. Further recommendati ons based on clinical course. Plan of care was discussed with Dr. Aly. Dictated By: DENA SALGUERO SOLDERING MACHINE OPERATOR HELPER for LUZMA ALY MD SR/NTS Conf#: [id number] DID#: [id number]
[2017-03-19] MEDS: DILTIAZEM 60 MG TAB GTB SCH ×2 (14:08→20:17)
[2017-03-19] MEDS: ACETAMINOPHEN 650MG/20.3ML CUP PO PRN (20:16)
[2017-03-19] MEDS: SENNA TAB GTB SCH (21:18)
[2017-03-19] MEDS: ATORVASTATIN 40 MG TAB GTB SCH (21:19)
[2017-03-19 21:23] VITALS: BP 150/88; RESP 20
[2017-03-19 21:24] VITALS: BP 127/59; RESP 20
[2017-03-19] MEDS: MAGNESIUM HYDROXIDE 30ML CUP GTB SCH (21:27)
[2017-03-19] MEDS ORDERED: IOHEXOL 100 ML ONE (21:35)
[2017-03-19] MEDS ORDERED: SOD CHLORIDE 0.9% 100 ML ONE (21:35)
--- NOTE | 2017-03-19 23:08 | RADRPT ---
PROCEDURE: CT angiogram of the chest with contrast. CLINICAL INDICATION: Chest pain. TECHNIQUE: CT angiogram of the chest was obtained using a multi-detector high-resolution CT. Con tiguous axial images were obtained during the dynamic injection of 90 cc of Omnipaque 350 intravenou s contrast. Coronal and sagittal reformatted images were obtained. 3-D reformatted images were als o obtained. Images were reviewed on a PACS workstation. One or more of the following dose reduction techniques were used: - Automated exposure control. - Adjustment of the mA and/or kV according to patient size. - Use of iterative reconstruction technique. Exam CTD/vol = 8.65 mGy. Total exam DLP = 285.91 mGy-cm. COMPARISON: None. FINDINGS: The main pulmonary artery followed to the segmental divisions are well opacified. There is no filli ng defect or evidence of pulmonary embolism. The heart is normal in size. There is no pericardial thickening or effusion. The aorta is of normal course and caliber without evidence of aneurysm or d issection. There is no evidence of chest wall mass. The visualized thyroid is unremarkable. There are no enla rged axillary lymph nodes. There are small paratracheal and prevascular lymph nodes. There are no enlarged mediastinal or hilar lymph nodes by CT criteria. There is no parenchymal nodule or consoli dation. There is no pleural effusion. There is mild bibasilar atelectasis. The central tracheobron chial tree is within normal limits. Limited evaluation of the upper abdomen is unremarkable. IMPRESSION: No evidence of pulmonary embolism or aortic dissection. Mild bibasilar atelectasis. Mild mediastinal adenopathy. .Danial Sexton MD, MD Date Time Electronically viewed and signed by .Danial Sexton MD, MD on 03/19/2017 23:07 .T/
[2017-03-19 23:33] VITALS: PULSE 98
[2017-03-20] MEDS: ONDANSETRON 4 MG TAB PO PRN (03:49)
[2017-03-20] MEDS: SOD CHLORIDE 0.9% 1,000 ML IV SCH ×2 (04:10→10:30)
[2017-03-20] MEDS: INSULIN ASPART [NOVOLOG] 3 ML PEN SC SCH ×5 (05:23→23:22)
[2017-03-20] MEDS: FUROSEMIDE 20 MG TAB GTB SCH (05:25)
[2017-03-20] MEDS: DILTIAZEM 60 MG TAB GTB SCH ×3 (05:25→23:18)
[2017-03-20 05:42] LABS: ADD SCAN DIFF NO
[2017-03-20 05:50] LABS: BASOPHILS % 0.3 % (0.0-2.0); EOSINOPHILS # 0.3 10^3/ul (0.0-0.5); EOSINOPHILS % 3.3 % (0.0-7.0); HEMATOCRIT 32.5 % (37.0-47.0); HEMOGLOBIN 10.5 g/dl (12.0-16.0); LYMPHOCYTES # 0.6 10^3/ul (0.8-2.9); LYMPHOCYTES % 6.1 % (15.0-51.0); MEAN CORPUSCULAR HEMOGLOBIN 31.2 pg (29.0-33.0); MEAN CORPUSCULAR HGB CONC 32.3 g/dl (32.0-37.0); MEAN CORPUSCULAR VOLUME 96.4 fl (82.0-101.0); MEAN PLATELET VOLUME 11.6 fl (7.4-10.4); MONOCYTE # 0.6 10^3/ul (0.3-0.9); MONOCYTES % 5.7 % (0.0-11.0); NEUTROPHIL # 8.7 10^3/ul (1.6-7.5); NEUTROPHILS % 84.1 % (39.0-77.0); PLATELET COUNT 329 10^3/UL (140-415); RED BLOOD COUNT 3.37 10^6/ul (4.20-5.40); RED CELL DISTRIBUTION WIDTH 14.4 % (11.5-14.5); WHITE BLOOD COUNT 10.4 10^3/ul (4.8-10.8)
[2017-03-20 06:02] LABS: POTASSIUM 3.3 mmol/L (3.5-5.1)
[2017-03-20 06:05] LABS: CREATININE 0.57 mg/dl (0.44-1.00)
[2017-03-20 07:15] VITALS: BP 117/56; RESP 20
[2017-03-20] MEDS: FERROUS SULFATE 60 MG/ML 5ML CUP GTB SCH ×2 (08:10→23:18)
[2017-03-20] MEDS: CEFTRIAXONE 1 GM/50 ML (PMX) 50 ML IVPB SCH (08:10)
[2017-03-20] MEDS: LEVETIRACETAM (100 MG/ML) 5ML CUP GTB SCH ×2 (08:10→23:18)
[2017-03-20] MEDS: ZINC SULFATE 220 MG CAP GTB SCH (08:11)
[2017-03-20] MEDS: TRIMETHOPRIM/SULFAMETHOX (DS) TAB GTB SCH ×2 (08:11→23:18)
[2017-03-20] MEDS: traMADol 50 MG TAB GTB SCH ×2 (08:11→23:19)
[2017-03-20] MEDS: ASCORBIC ACID 500 MG TAB GTB SCH ×3 (08:11→23:19)
[2017-03-20] MEDS: DOCUSATE SODIUM 100 MG CAP PO SCH (08:11)
[2017-03-20] MEDS: MULTIVITAMINS/MINERALS TAB GTB SCH ×2 (08:11→23:19)
[2017-03-20] MEDS: POTASSIUM CHLORIDE 20 MEQ POWDER FOR ORAL SOLN GTB SCH (08:12)
[2017-03-20] MEDS: ENOXAPARIN 40 MG/0.4 ML SYG SC SCH (08:14)
[2017-03-20] MEDS: NPH, HUMAN INSULIN ISOPHANE 3ML VIAL SC SCH ×3 (08:14→23:21)
--- NOTE | 2017-03-20 20:03 | PN ---
Date/Time of Note Date/Time of Note DATE: 03/20/17 TIME: 20:00 Assessment/Plan VTE Prophylaxis VTE Prophylaxis Intervention: SCD's Lines/Catheters IV [facility] Urinary Cath still in place: No Assessment/Plan Chief Complaint/Hosp Course ASSESSMENT AND PLAN: 1. Sinus tachycardia, most likely secondary to dehydration. Continue IV fluids. 2. Left hand swelling. Continue broad-spectrum antibiotics for possible cellulitis. 3. Seizure disorder. Continue Keppra. 4. Dysphagia with percutaneous endoscopic gastrostomy. Continue G-tube feeding , aspiration precautions. 5. Diabetes mellitus type 2. Continue NPH. 6. Dyslipidemia. Continue statins. 7. Hypertension. The patient is currently normotensive. 8. Schizophrenia and bipolar disorder. Continue Lovenox for deep venous thrombosis prophylaxis. Further recommendations based on clinical course. Plan of care was discussed with Dr. Aly. Problems: Subjective 24 Hr Interval Summary Free Text/Dictation Patient is tachycardic, appears pale, complains of generalized pain. Exam/Review of Systems Vital Signs Vitals Vital Signs Date Time Temp Pulse Resp B/P Pulse Ox O2 Delivery O2 Flow Rate FiO2 03/20/17 07:15 98.1 120 20 117/56 91 03/19/17 03:31 Nasal Cannula 2.0 Intake and Output 03/19/17 03/19/17 03/20/17 15:00 23:00 07:00 Intake Total 460 ml 1920 ml Output Total 0 ml Balance 460 ml 1920 ml Exam PHYSICAL ASSESSMENT GENERAL: Well-developed, well-nourished female, currently is lethargic, but easily arousable. HEENT: Head is atraumatic, normocephalic. Pupils equal, round, reactive to light and accommodation. Oral mucosa is pink and moist. NECK: Supple, no cervical lymphadenopathy, no thyromegaly. CHEST: Lungs clear bilaterally, slightly diminished at the bases. There is no rhonchi, wheezes, or rales noted. CARDIOVASCULAR: Normal S1, S2. No murmurs, gallops, clicks, rubs noted. The patient is tachycardic. ABDOMEN: Round, soft, nondistended, nontender. G-tube with intact stoma. EXTREMITIES: There is no edema, clubbing, cyanosis. Pulses equal bilaterally, 2+. Left hand slight swelling. SKIN: There is no rash, petechiae. NEUROLOGIC: The patient is awake, alert, near baseline. Results Result Diagram: 03/20/17 0450 03/20/17 0450 Results 24 hrs Laboratory Tests Test 03/19/17 21:21 03/20/17 00:50 03/20/17 04:50 03/20/17 05:22 Bedside Glucose 315 H 139 177 White Blood Count 10.4 Red Blood Count 3.37 L Hemoglobin 10.5 L Hematocrit 32.5 L Mean Corpuscular Volume 96.4 Mean Corpuscular Hemoglobin 31.2 Mean Corpuscular Hemoglobin Concent 32.3 Red Cell Distribution Width 14.4 Platelet Count 329 Mean Platelet Volume 11.6 H Neutrophils % 84.1 H Lymphocytes % 6.1 L Monocytes % 5.7 Eosinophils % 3.3 Basophils % 0.3 Nucleated Red Blood Cells % 0.0 Neutrophils # 8.7 H Lymphocytes # 0.6 L Monocytes # 0.6 Eosinophils # 0.3 Basophils # 0.0 Nucleated Red Blood Cells # 0.0 Sodium Level 136 Potassium Level 3.3 L Chloride Level 98 Carbon Dioxide Level 25 Anion Gap 16 Blood Urea Nitrogen 19 # Creatinine 0.57 Glucose Level 203 # Calcium Level 9.0 Test 03/20/17 12:12 03/20/17 17:42 Bedside Glucose 75 76 Medications Medications Current Medications Atorvastatin Calcium (Lipitor) 40 mg HS GTB Last administered on 03/19/17 21: 19; Admin Dose 40 MG; Start 03/19/17 at 21:00 Bisacodyl (Dulcolax Supp) 10 mg DAILY PRN [place] PRN; Start 03/19/17 at 05:00 Docusate Sodium (Colace) 200 mg DAILY PO Last administered on 03/20/17 08:11; Admin Dose 200 MG; Start 03/19/17 at 09:00 Enoxaparin Sodium (Lovenox) 40 mg DAILY SC Last administered on 03/20/17 08:14 ; Admin Dose 40 MG; Start 03/19/17 at 09:00 Furosemide (Lasix) 20 mg DAILY@06 GTB Last administered on 03/20/17 05:25; Admin Dose 20 MG; Start 03/19/17 at 06:00 Magnesium Hydroxide (Milk Of Mag) 30 ml QHS GTB Last administered on 03/19/17 21:27; Admin Dose 30 ML; Start 03/19/17 at 21:00 Ondansetron HCl (Zofran Tab) 4 mg Q6H PRN PO NAUSEA AND/OR VOMITING Last administered on 03/20/17 03:49; Admin Dose 4 MG; Start 03/19/17 at 05:00 Senna (Senokot) 2 tab QHS GTB Last administered on 03/19/17 21:18; Admin Dose 2 TAB; Start 03/19/17 at 21:00 Tramadol HCl (Ultram) 50 mg BID GTB Last administered on 03/20/17 08:11; Admin Dose 50 MG; Start 03/19/17 at 09:00 Zinc Sulfate 220 mg 220 mg DAILY GTB Last administered on 03/20/17 08:11; Admin Dose 220 MG; Start 03/19/17 at 09:00 Ceftriaxone Sodium (Rocephin) 50 ml @ 100 mls/hr Q24H IVPB Last administered on 03/20/17 08:10; Admin Dose 100 MLS/HR; Start 03/19/17 at 09:00 Trimethoprim/ Sulfamethoxazole (Bactrim (Ds)) 1 tab BID GTB Last administered on 03/20/17 08:11; Admin Dose 1 TAB; Start 03/19/17 at 09:00 Acetaminophen (Tylenol Liquid) 650 mg Q4H PRN GTB MILD PAIN LEVEL 1-3; Start at 06:00 Acetaminophen (Tylenol Liquid) 1,000 mg Q4H PRN PO PAIN LEVEL 4-6/10 Last administered on 03/19/17 20:16; Admin Dose 1,000 MG; Start 03/19/17 at 06:00 Ascorbic Acid (Vitamin C) 500 mg TID GTB Last administered on 03/20/17 14:41; Admin Dose 500 MG; Start 03/19/17 at 09:00 Insulin Aspart (Novolog Insulin Pen) NOVOLOG *MODERATE* ALGORI... Q6 SC Last administered on 03/20/17 05:23; Admin Dose 2 UNIT; Start 03/19/17 at 06:00 Miscellaneous Information 1 ea NOTE XX ; Start 03/19/17 at 06:00 Glucose (Glutose) 15 gm Q15M PRN PO DECREASED GLUCOSE; Start 03/19/17 at 06:00 Glucose (Glutose) 22.5 gm Q15M PRN PO DECREASED GLUCOSE; Start 03/19/17 at 06: 00 Dextrose (D50w Syringe) 25 ml Q15M PRN IV DECREASED GLUCOSE; Start 03/19/17 at 06:00 Dextrose (D50w Syringe) 50 ml Q15M PRN IV DECREASED GLUCOSE; Start 03/19/17 at 06:00 Glucagon (Glucagen) 1 mg Q15M PRN IM DECREASED GLUCOSE; Start 03/19/17 at 06:00 Glucose (Glutose) 15 gm Q15M PRN BUCCAL DECREASED GLUCOSE; Start 03/19/17 at 06 :00 Levetiracetam (Keppra Liquid) 500 mg BID GTB Last administered on 03/20/17 08: 10; Admin Dose 500 MG; Start 03/19/17 at 09:00 Ferrous Sulfate (Feosol Liquid Cup) 300 mg BID GTB Last administered on 08:10; Admin Dose 300 MG; Start 03/19/17 at 09:00 Multivitamins/ Minerals (Theragran-M) 1 tab BID GTB Last administered on 08:11; Admin Dose 1 TAB; Start 03/19/17 at 09:00 Insulin Human NPH (Humulin N) 8 unit TID SC Last administered on 03/20/17 14: 43; Admin Dose 8 UNIT; Start 03/19/17 at 09:00 Miscellaneous Information (Pending Santyl Order For Wound Care) This patient mahmood... PRN PRN XX WOUND CARE; Start 03/19/17 at 06:00 Potassium Chloride (Potassium Chloride Pwd/Soln) 40 meq DAILY GTB Last administered on 03/20/17 08:12; Admin Dose 40 MEQ; Start 03/19/17 at 09:00 Sodium Biphosphate/ Sodium Phosphate 133 ml 133 ml DAILY PRN [place] CONSTIPATION; Start 03/19/17 at 06:30 Sodium Chloride (NS) 1,000 ml @ 60 mls/hr [id number] IV Last administered on 03/20 10:30; Admin Dose 60 MLS/HR; Start 03/19/17 at 11:30 Diltiazem HCl (Cardizem) 60 mg Q8 GTB Last administered on 03/20/17 14:42; Admin Dose 60 MG; Start 03/19/17 at 14:00 DENA SALGUERO Mar 20, 2017 20:03
[2017-03-20 20:53] VITALS: BP 130/60; RESP 20
[2017-03-20 22:00] VITALS: PULSE 115
[2017-03-20] MEDS: ATORVASTATIN 40 MG TAB GTB SCH (23:18)
[2017-03-20] MEDS: MAGNESIUM HYDROXIDE 30ML CUP GTB SCH (23:18)
[2017-03-20] MEDS: SENNA TAB GTB SCH (23:19)
[2017-03-21 05:21] LABS: ADD SCAN DIFF NO
[2017-03-21] MEDS: FUROSEMIDE 20 MG TAB GTB SCH (05:23)
[2017-03-21] MEDS: DILTIAZEM 60 MG TAB GTB SCH ×3 (05:23→22:18)
[2017-03-21] MEDS: INSULIN ASPART [NOVOLOG] 3 ML PEN SC SCH ×3 (05:26→17:32)
[2017-03-21 05:35] LABS: BASOPHIL # 0.1 10^3/ul (0.0-0.1); BASOPHILS % 0.3 % (0.0-2.0); EOSINOPHILS # 0.1 10^3/ul (0.0-0.5); EOSINOPHILS % 0.5 % (0.0-7.0); HEMATOCRIT 31.1 % (37.0-47.0); HEMOGLOBIN 9.9 g/dl (12.0-16.0); LYMPHOCYTES # 1.3 10^3/ul (0.8-2.9); LYMPHOCYTES % 8.2 % (15.0-51.0); MEAN CORPUSCULAR HEMOGLOBIN 30.7 pg (29.0-33.0); MEAN CORPUSCULAR HGB CONC 31.8 g/dl (32.0-37.0); MEAN CORPUSCULAR VOLUME 96.6 fl (82.0-101.0); MEAN PLATELET VOLUME 11.3 fl (7.4-10.4); MONOCYTE # 0.8 10^3/ul (0.3-0.9); NEUTROPHIL # 13.6 10^3/ul (1.6-7.5); NEUTROPHILS % 85.6 % (39.0-77.0); PLATELET COUNT 323 10^3/UL (140-415); RED BLOOD COUNT 3.22 10^6/ul (4.20-5.40); RED CELL DISTRIBUTION WIDTH 14.5 % (11.5-14.5); WHITE BLOOD COUNT 15.9 10^3/ul (4.8-10.8)
[2017-03-21 05:49] LABS: POTASSIUM 3.3 mmol/L (3.5-5.1)
[2017-03-21 05:52] LABS: CREATININE 0.63 mg/dl (0.44-1.00)
[2017-03-21 05:53] LABS: CALCIUM 8.9 mg/dl (8.4-10.2)
[2017-03-21 07:30] VITALS: BP 122/59; RESP 20
[2017-03-21] MEDS: LEVETIRACETAM (100 MG/ML) 5ML CUP GTB SCH ×2 (08:49→20:47)
[2017-03-21] MEDS: ZINC SULFATE 220 MG CAP GTB SCH (08:49)
[2017-03-21] MEDS: TRIMETHOPRIM/SULFAMETHOX (DS) TAB GTB SCH ×2 (08:49→20:46)
[2017-03-21] MEDS: ASCORBIC ACID 500 MG TAB GTB SCH ×3 (08:49→20:47)
[2017-03-21] MEDS: FERROUS SULFATE 60 MG/ML 5ML CUP GTB SCH ×2 (08:49→20:47)
[2017-03-21] MEDS: DOCUSATE SODIUM 100 MG CAP PO SCH (08:49)
[2017-03-21] MEDS: MULTIVITAMINS/MINERALS TAB GTB SCH ×2 (08:49→20:47)
[2017-03-21] MEDS: POTASSIUM CHLORIDE 20 MEQ POWDER FOR ORAL SOLN GTB SCH (08:50)
[2017-03-21] MEDS: CEFTRIAXONE 1 GM/50 ML (PMX) 50 ML IVPB SCH (08:50)
[2017-03-21] MEDS: ENOXAPARIN 40 MG/0.4 ML SYG SC SCH (08:50)
[2017-03-21] MEDS: NPH, HUMAN INSULIN ISOPHANE 3ML VIAL SC SCH ×3 (08:55→20:43)
[2017-03-21] MEDS: traMADol 50 MG TAB GTB SCH ×2 (12:15→20:46)
[2017-03-21] MEDS: SOD CHLORIDE 0.9% 1,000 ML IV SCH ×2 (13:30→22:09)
--- NOTE | 2017-03-21 15:09 | RADRPT ---
PROCEDURE: CT scan of the right upper extremity without contrast. CLINICAL INDICATION: Pain and swelling of the right hand. TECHNIQUE: The scan of the right and was performed utilizing a high-resolution multidetector CT [facility]. Direct thin section helical thin section axial sections were obtained without contrast. Coronal and sagittal as well as maximal intensity projection reformations were obtained. CTDI: 7.4 and DLP: 152 One or more of the following dose reduction techniques were used: - Automated exposure control. - Adjustment of the mA and/or kV according to patient size. Use of iterative reconstruction technique. COMPARISON: No. FINDINGS: The phalanges, metacarpal bones and carpal bones are unremarkable. The radius and ulna a re normal as visualized. No subcutaneous mass is identified. Some soft tissue swelling is suspecte d along the palmar surface of the hand at the base of the right thumb. No fracture or foreign body is identified. IMPRESSION: 1. There is a suggestion of soft tissue swelling on the palmar surface of the hand at the base of t he right thumb. 2. Otherwise, negative CT scan of the right hand. There is no evidence for fracture or soft tissue mass. An MRI with intravenous contrast may be helpful if clinically indicated in further evaluatio n to detect bone edema, tendinous abnormalities wrist soft tissue mass which might not be evident on the noncontrast CT scan. RPTAT:AAJJ Physician Luba Date Time Electronically viewed and signed by Physician Luba on 03/21/2017 15:09 PARKER/
--- NOTE | 2017-03-21 18:12 | PN ---
Date/Time of Note Date/Time of Note DATE: 03/21/17 TIME: 18:08 Assessment/Plan VTE Prophylaxis VTE Prophylaxis Intervention: other Lines/Catheters IV Catheter Type (from [facility] [place]): Peripheral IV Urinary Cath still in place: No Assessment/Plan Assessment/Plan - hypokalemia- replet K, am labs - Sinus tachycardia, most likely secondary to dehydration. Continue IV fluids. - Left hand swelling. Continue broad-spectrum antibiotics for possible cellulitis. - elevate hand all times - Seizure disorder. Continue Keppra. - seizure precautions - Dysphagia with percutaneous endoscopic gastrostomy. Continue G-tube feeding , aspiration precautions. -. Diabetes mellitus type 2. Continue NPH. - Dyslipidemia. Continue statins. - Hypertension- currently normotensive. - Schizophrenia and bipolar disorder- no acute issues. - Lovenox for deep venous thrombosis prophylaxis. Further recommendations based on clinical course. Plan of care was discussed with Dr. Aly. Subjective 24 Hr Interval Summary Free Text/Dictation nad, resting in bed, awake, follows simple commands, cooperate for exam, denies any pain, no seizures reported.dw staff. Eyes: no complaints ENT: no complaints Respiratory: no complaints Cardiovascular: no complaints Gastrointestinal: no complaints Exam/Review of Systems Vital Signs Vitals Vital Signs Date Time Temp Pulse Resp B/P Pulse Ox O2 Delivery O2 Flow Rate FiO2 03/21/17 07:30 98.1 117 20 122/59 91 03/19/17 03:31 Nasal Cannula 2.0 Intake and Output 03/20/17 03/20/17 03/21/17 15:00 23:00 07:00 Intake Total 50 ml 920 ml 1550 ml Balance 50 ml 920 ml 1550 ml Exam Constitutional: alert, other (NAD, ), well developed Psych: nl mood/affect Eyes: EOMI, PERRL, nl sclera ENMT: nl external ears & nose Respiratory: clear to auscultation Cardiovascular: nl pulses Gastrointestinal: non-tender, soft Musculoskeletal: muscle weakness Extremities: normal pulses Neurological: nl speech, other Skin: other Results Result Diagram: 03/21/17 0457 03/21/17 0457 Results 24 hrs Laboratory Tests Test 03/20/17 23:17 03/21/17 04:57 03/21/17 05:21 03/21/17 08:54 Bedside Glucose 194 302 H 296 H White Blood Count 15.9 #H Red Blood Count 3.22 L Hemoglobin 9.9 L Hematocrit 31.1 L Mean Corpuscular Volume 96.6 Mean Corpuscular Hemoglobin 30.7 Mean Corpuscular Hemoglobin Concent 31.8 L Red Cell Distribution Width 14.5 Platelet Count 323 Mean Platelet Volume 11.3 H Neutrophils % 85.6 H Lymphocytes % 8.2 L Monocytes % 5.0 Eosinophils % 0.5 Basophils % 0.3 Nucleated Red Blood Cells % 0.0 Neutrophils # 13.6 H Lymphocytes # 1.3 Monocytes # 0.8 Eosinophils # 0.1 Basophils # 0.1 Nucleated Red Blood Cells # 0.0 Sodium Level 137 Potassium Level 3.3 L Chloride Level 97 Carbon Dioxide Level 25 Anion Gap 18 H Blood Urea Nitrogen 22 H Creatinine 0.63 Glucose Level 323 H Calcium Level 8.9 Test 03/21/17 12:10 03/21/17 16:58 Bedside Glucose 334 H 227 H Medications Medications Current Medications Atorvastatin Calcium (Lipitor) 40 mg HS GTB Last administered on 03/20/17 23: 18; Admin Dose 40 MG; Start 03/19/17 at 21:00 Bisacodyl (Dulcolax Supp) 10 mg DAILY PRN [place] PRN; Start 03/19/17 at 05:00 Docusate Sodium (Colace) 200 mg DAILY PO Last administered on 03/21/17 08:49; Admin Dose 200 MG; Start 03/19/17 at 09:00 Enoxaparin Sodium (Lovenox) 40 mg DAILY SC Last administered on 03/21/17 08:50 ; Admin Dose 40 MG; Start 03/19/17 at 09:00 Furosemide (Lasix) 20 mg DAILY@06 GTB Last administered on 03/21/17 05:23; Admin Dose 20 MG; Start 03/19/17 at 06:00 Magnesium Hydroxide (Milk Of Mag) 30 ml QHS GTB Last administered on 03/20/17 23:18; Admin Dose 30 ML; Start 03/19/17 at 21:00 Ondansetron HCl (Zofran Tab) 4 mg Q6H PRN PO NAUSEA AND/OR VOMITING Last administered on 03/20/17 03:49; Admin Dose 4 MG; Start 03/19/17 at 05:00 Senna (Senokot) 2 tab QHS GTB Last administered on 03/20/17 23:19; Admin Dose 2 TAB; Start 03/19/17 at 21:00 Tramadol HCl (Ultram) 50 mg BID GTB Last administered on 03/21/17 12:15; Admin Dose 50 MG; Start 03/19/17 at 09:00 Zinc Sulfate 220 mg 220 mg DAILY GTB Last administered on 03/21/17 08:49; Admin Dose 220 MG; Start 03/19/17 at 09:00 Ceftriaxone Sodium (Rocephin) 50 ml @ 100 mls/hr Q24H IVPB Last administered on 03/21/17 08:50; Admin Dose 100 MLS/HR; Start 03/19/17 at 09:00 Trimethoprim/ Sulfamethoxazole (Bactrim (Ds)) 1 tab BID GTB Last administered on 03/21/17 08:49; Admin Dose 1 TAB; Start 03/19/17 at 09:00 Acetaminophen (Tylenol Liquid) 650 mg Q4H PRN GTB MILD PAIN LEVEL 1-3; Start at 06:00 Acetaminophen (Tylenol Liquid) 1,000 mg Q4H PRN PO PAIN LEVEL 4-6/10 Last administered on 03/19/17 20:16; Admin Dose 1,000 MG; Start 03/19/17 at 06:00 Ascorbic Acid (Vitamin C) 500 mg TID GTB Last administered on 03/21/17 12:17; Admin Dose 500 MG; Start 03/19/17 at 09:00 Insulin Aspart (Novolog Insulin Pen) NOVOLOG *MODERATE* ALGORI... Q6 SC Last administered on 03/21/17 17:32; Admin Dose 6 UNIT; Start 03/19/17 at 06:00 Miscellaneous Information 1 ea NOTE XX ; Start 03/19/17 at 06:00 Glucose (Glutose) 15 gm Q15M PRN PO DECREASED GLUCOSE; Start 03/19/17 at 06:00 Glucose (Glutose) 22.5 gm Q15M PRN PO DECREASED GLUCOSE; Start 03/19/17 at 06: 00 Dextrose (D50w Syringe) 25 ml Q15M PRN IV DECREASED GLUCOSE; Start 03/19/17 at 06:00 Dextrose (D50w Syringe) 50 ml Q15M PRN IV DECREASED GLUCOSE; Start 03/19/17 at 06:00 Glucagon (Glucagen) 1 mg Q15M PRN IM DECREASED GLUCOSE; Start 03/19/17 at 06:00 Glucose (Glutose) 15 gm Q15M PRN BUCCAL DECREASED GLUCOSE; Start 03/19/17 at 06 :00 Levetiracetam (Keppra Liquid) 500 mg BID GTB Last administered on 03/21/17 08: 49; Admin Dose 500 MG; Start 03/19/17 at 09:00 Ferrous Sulfate (Feosol Liquid Cup) 300 mg BID GTB Last administered on 08:49; Admin Dose 300 MG; Start 03/19/17 at 09:00 Multivitamins/ Minerals (Theragran-M) 1 tab BID GTB Last administered on 08:49; Admin Dose 1 TAB; Start 03/19/17 at 09:00 Insulin Human NPH (Humulin N) 8 unit TID SC Last administered on 03/21/17 12: 22; Admin Dose 8 UNIT; Start 03/19/17 at 09:00 Miscellaneous Information (Pending [facility] Order For Wound Care) This patient mahmood... PRN PRN XX WOUND CARE; Start 03/19/17 at 06:00 Potassium Chloride (Potassium Chloride Pwd/Soln) 40 meq DAILY GTB Last administered on 03/21/17 08:50; Admin Dose 40 MEQ; Start 03/19/17 at 09:00 Sodium Biphosphate/ Sodium Phosphate 133 ml 133 ml DAILY PRN [place] CONSTIPATION; Start 03/19/17 at 06:30 Sodium Chloride (NS) 1,000 ml @ 60 mls/hr [id number] IV Last administered on 03/20 10:30; Admin Dose 60 MLS/HR; Start 03/19/17 at 11:30 Diltiazem HCl (Cardizem) 60 mg Q8 GTB Last administered on 03/21/17 15:30; Admin Dose 60 MG; Start 03/19/17 at 14:00 MICHAEL COLINDRES Mar 21, 2017 18:12
[2017-03-21 20:33] VITALS: BP 139/63; RESP 20
[2017-03-21] MEDS: INSULIN GLARGINE [LANtus] 3 ML PEN SC SCH (20:44)
[2017-03-21] MEDS: SENNA TAB GTB SCH (20:46)
[2017-03-21] MEDS: MAGNESIUM HYDROXIDE 30ML CUP GTB SCH (20:47)
[2017-03-21] MEDS: ATORVASTATIN 40 MG TAB GTB SCH (20:47)
[2017-03-21] MEDS: ACETAMINOPHEN 650MG/20.3ML CUP GTB PRN (20:48)
[2017-03-21] MEDS ORDERED: VANCOMYCIN 1 GM in NS 250 ML IVPB ONE (22:00)
[2017-03-21] MEDS ORDERED: VANCOMYCIN IV PER PHARMACY XX SCH (22:00)
[2017-03-21 22:36] LABS: ADD SCAN DIFF NO
[2017-03-21 22:37] LABS: BASOPHILS % 0.1 % (0.0-2.0); EOSINOPHILS % 0.3 % (0.0-7.0); HEMATOCRIT 28.7 % (37.0-47.0); HEMOGLOBIN 9.4 g/dl (12.0-16.0); LYMPHOCYTES # 1.2 10^3/ul (0.8-2.9); LYMPHOCYTES % 7.7 % (15.0-51.0); MEAN CORPUSCULAR HEMOGLOBIN 31.3 pg (29.0-33.0); MEAN CORPUSCULAR HGB CONC 32.8 g/dl (32.0-37.0); MEAN CORPUSCULAR VOLUME 95.7 fl (82.0-101.0); MEAN PLATELET VOLUME 11.2 fl (7.4-10.4); MONOCYTE # 0.7 10^3/ul (0.3-0.9); MONOCYTES % 4.7 % (0.0-11.0); NEUTROPHIL # 13.2 10^3/ul (1.6-7.5); NEUTROPHILS % 86.7 % (39.0-77.0); PLATELET COUNT 309 10^3/UL (140-415); RED CELL DISTRIBUTION WIDTH 14.4 % (11.5-14.5); WHITE BLOOD COUNT 15.2 10^3/ul (4.8-10.8)
[2017-03-21 22:47] LABS: POTASSIUM 3.4 mmol/L (3.5-5.1)
--- NOTE | 2017-03-21 22:48 | RADRPT ---
PROCEDURE: XR Chest. CLINICAL INDICATION: Fever. TECHNIQUE: Single frontal chest x-ray. COMPARISON: 03/18/2017 FINDINGS: Heart is slightly increased in size.. There is mild pulmonary vascular congestion.. There is right basilar probable atelectasis. There is mild left basilar atelectasis versus filtrate. There is no pl eural effusion. There is no pneumothorax. The osseous structures are unremarkable. IMPRESSION: Slight increase in heart size. Mild pulmonary vascular congestion. Right basilar atelectasis. Lef t basilar atelectasis versus infiltrate. RPTAT: HMVK .Gamal Mehta MD, Date Time Electronically viewed and signed by .Gamal Mehta MD, on 03/21/2017 22:48 .K/
[2017-03-21 22:49] LABS: CREATININE 0.57 mg/dl (0.44-1.00)
[2017-03-21 22:50] LABS: CALCIUM 8.9 mg/dl (8.4-10.2)
[2017-03-21] MEDS ORDERED: POTASSIUM CHLORIDE (SR) 20 MEQ TAB PO ONE (23:35)
[2017-03-21] MEDS ORDERED: POTASSIUM CHLORIDE 20 MEQ POWDER FOR ORAL SOLN GTB ONE (23:50)
[2017-03-22] VITALS (37 sets, daily range): BP systolic 95–150; BP diastolic 52–86; PULSE 110–147; RESP 16–43
[2017-03-22] MEDS ORDERED: INSULIN ASPART [NOVOLOG] 3 ML PEN SC ONE
[2017-03-22] MEDS: INSULIN ASPART [NOVOLOG] 3 ML PEN SC SCH ×5 (00:03→23:07)
[2017-03-22] MEDS: IMIPENEM-CILAST 500MG IV (PMX) 100 ML IVPB SCH ×5 (00:07→23:00)
[2017-03-22] MEDS: ACETAMINOPHEN 650MG/20.3ML CUP PO PRN (03:30)
[2017-03-22] MEDS ORDERED: VANCOMYCIN 750 MG in SOD CHLORIDE 0.9% 150 ML IVPB SCH (06:00)
[2017-03-22] MEDS: DILTIAZEM 60 MG TAB GTB SCH ×3 (06:16→22:59)
[2017-03-22] MEDS: FUROSEMIDE 20 MG TAB GTB SCH (06:16)
[2017-03-22 06:47] LABS: ADD SCAN DIFF NO
[2017-03-22] MEDS: ONDANSETRON 4 MG TAB PO PRN (06:56)
[2017-03-22 07:00] LABS: BASOPHILS % 0.2 % (0.0-2.0); EOSINOPHILS # 0.3 10^3/ul (0.0-0.5); HEMOGLOBIN 9.5 g/dl (12.0-16.0); LYMPHOCYTES # 0.7 10^3/ul (0.8-2.9); LYMPHOCYTES % 4.2 % (15.0-51.0); MEAN CORPUSCULAR HGB CONC 31.7 g/dl (32.0-37.0); MEAN PLATELET VOLUME 11.4 fl (7.4-10.4); MONOCYTE # 0.3 10^3/ul (0.3-0.9); MONOCYTES % 2.1 % (0.0-11.0); NEUTROPHIL # 14.4 10^3/ul (1.6-7.5); NEUTROPHILS % 90.9 % (39.0-77.0); PLATELET COUNT 305 10^3/UL (140-415); RED BLOOD COUNT 3.06 10^6/ul (4.20-5.40); RED CELL DISTRIBUTION WIDTH 14.6 % (11.5-14.5); WHITE BLOOD COUNT 15.8 10^3/ul (4.8-10.8)
[2017-03-22 07:49] LABS: CALCIUM 9.2 mg/dl (8.4-10.2); CREATININE 0.58 mg/dl (0.44-1.00); POTASSIUM 3.8 mmol/L (3.5-5.1)
[2017-03-22] MEDS: SOD CHLORIDE 0.9% 1,000 ML IV SCH ×2 (08:00→17:08)
[2017-03-22] MEDS: ACETAMINOPHEN 650MG/20.3ML CUP GTB PRN (08:19)
[2017-03-22] MEDS: ENOXAPARIN 40 MG/0.4 ML SYG SC SCH (08:42)
[2017-03-22] MEDS: NPH, HUMAN INSULIN ISOPHANE 3ML VIAL SC SCH ×3 (08:43→20:12)
[2017-03-22] MEDS: DOCUSATE SODIUM 100 MG CAP PO SCH (08:44)
[2017-03-22] MEDS: traMADol 50 MG TAB GTB SCH ×2 (08:44→20:13)
[2017-03-22] MEDS: POTASSIUM CHLORIDE 20 MEQ POWDER FOR ORAL SOLN GTB SCH (08:44)
[2017-03-22] MEDS: MULTIVITAMINS/MINERALS TAB GTB SCH ×2 (08:44→20:17)
[2017-03-22] MEDS: ZINC SULFATE 220 MG CAP GTB SCH (08:44)
[2017-03-22] MEDS: FERROUS SULFATE 60 MG/ML 5ML CUP GTB SCH ×2 (08:44→20:12)
[2017-03-22] MEDS: LEVETIRACETAM (100 MG/ML) 5ML CUP GTB SCH ×2 (08:44→20:12)
[2017-03-22] MEDS: ASCORBIC ACID 500 MG TAB GTB SCH ×3 (08:44→20:13)
[2017-03-22] MEDS: METOPROLOL 5 MG INJ IV PRN ×2 (11:57→17:38)
--- NOTE | 2017-03-22 12:08 | PN ---
Date/Time of Note Date/Time of Note DATE: 03/22/17 TIME: 12:03 Assessment/Plan VTE Prophylaxis VTE Prophylaxis Intervention: SCD's Lines/Catheters IV [facility] (from [facility] Peripheral IV Urinary Cath still in place: No Assessment/Plan Chief Complaint/Hosp Course ASSESSMENT AND PLAN: - Possible sepsis with leukocytosis tachycardia. Patient was transferred to telemetry. Cardiology consult requested. - Possible HCAP, continue broad-spectrum antibiotics, Dr. Pitt is following in infection disease consultation. Dr. Roche is asked to see patients in pulmonology consultation. Continue bronchodilators and oxygen supplementation. - Sinus tachycardia, most likely secondary to dehydration. Continue IV fluids. - Left hand swelling. Continue broad-spectrum antibiotics for possible cellulitis. - Seizure disorder. Continue Keppra. - Dysphagia with percutaneous endoscopic gastrostomy. Continue G-tube feeding, aspiration precautions. - Diabetes mellitus type 2. Continue NPH. - Dyslipidemia. Continue statins. - Hypertension. The patient is currently normotensive. - Schizophrenia and bipolar disorder. Continue Lovenox for deep venous thrombosis prophylaxis. Further recommendations based on clinical course. Plan of care was discussed with Dr. Aly. Problems: Subjective 24 Hr Interval Summary Free Text/Dictation Patient is tachypneic and tachycardic, currently on facemask, spiked fever in a.m., transferred to telemetry, patient is awake alert, denies pain. Per RN patient had nonbilious emesis early in the morning. Exam/Review of Systems Vital Signs Vitals Vital Signs Date Time Temp Pulse Resp B/P Pulse Ox O2 Delivery O2 Flow Rate FiO2 03/22/17 11:00 147 03/22/17 09:30 98.8 18 113/60 92 Nasal Cannula 3.0 Intake and Output 03/21/17 03/21/17 03/22/17 15:00 23:00 07:00 Intake Total 50 ml 720 ml 1760 ml Balance 50 ml 720 ml 1760 ml Exam PHYSICAL ASSESSMENT GENERAL: Well-developed, well-nourished female, currently awake alert. HEENT: Head is atraumatic, normocephalic. Pupils equal, round, reactive to light and accommodation. Oral mucosa is pink and moist. NECK: Supple, no cervical lymphadenopathy, no thyromegaly. CHEST: Lungs clear bilaterally, slightly diminished at the bases. CARDIOVASCULAR: Normal S1, S2. No murmurs, gallops, clicks, rubs noted. The patient is tachycardic. ABDOMEN: Round, soft, nondistended, nontender. G-tube with intact stoma.Left hand slight swelling. SKIN: There is no rash, petechiae. NEUROLOGIC: The patient is awake, alert, near baseline. Results Result Diagram: 03/22/17 0505 03/22/17 0505 Results 24 hrs Laboratory Tests Test 03/21/17 12:10 03/21/17 16:58 03/21/17 20:32 03/21/17 22:15 Bedside Glucose 334 H 227 H 209 White Blood Count 15.2 H Red Blood Count 3.00 L Hemoglobin 9.4 L Hematocrit 28.7 L Mean Corpuscular Volume 95.7 Mean Corpuscular Hemoglobin 31.3 Mean Corpuscular Hemoglobin Concent 32.8 Red Cell Distribution Width 14.4 Platelet Count 309 Mean Platelet Volume 11.2 H Neutrophils % 86.7 H Lymphocytes % 7.7 L Monocytes % 4.7 Eosinophils % 0.3 Basophils % 0.1 Nucleated Red Blood Cells % 0.0 Neutrophils # 13.2 H Lymphocytes # 1.2 Monocytes # 0.7 Eosinophils # 0.0 Basophils # 0.0 Nucleated Red Blood Cells # 0.0 Sodium Level 136 Potassium Level 3.4 L Chloride Level 96 L Carbon Dioxide Level 28 Anion Gap 15 Blood Urea Nitrogen 25 H Creatinine 0.57 Glucose Level 330 H Lactic Acid Level 1.3 Calcium Level 8.9 Test 03/21/17 23:40 03/22/17 02:13 03/22/17 05:05 03/22/17 06:14 Bedside Glucose 345 H 212 170 White Blood Count 15.8 H Red Blood Count 3.06 L Hemoglobin 9.5 L Hematocrit 30.0 L Mean Corpuscular Volume 98.0 Mean Corpuscular Hemoglobin 31.0 Mean Corpuscular Hemoglobin Concent 31.7 L Red Cell Distribution Width 14.6 H Platelet Count 305 Mean Platelet Volume 11.4 H Neutrophils % 90.9 H Lymphocytes % 4.2 L Monocytes % 2.1 Eosinophils % 2.0 Basophils % 0.2 Nucleated Red Blood Cells % 0.0 Neutrophils # 14.4 H Lymphocytes # 0.7 L Monocytes # 0.3 Eosinophils # 0.3 Basophils # 0.0 Nucleated Red Blood Cells # 0.0 Sodium Level 139 Potassium Level 3.8 Chloride Level 102 Carbon Dioxide Level 26 Anion Gap 15 Blood Urea Nitrogen 25 H Creatinine 0.58 Glucose Level 189 # Calcium Level 9.2 Test 03/22/17 08:40 Bedside Glucose 186 Medications Medications Current Medications Atorvastatin Calcium (Lipitor) 40 mg HS GTB Last administered on 03/21/17 20: 47; Admin Dose 40 MG; Start 03/19/17 at 21:00 Bisacodyl (Dulcolax Supp) 10 mg DAILY PRN PA PRN; Start 03/19/17 at 05:00 Docusate Sodium (Colace) 200 mg DAILY PO Last administered on 03/22/17 08:44; Admin Dose 200 MG; Start 03/19/17 at 09:00 Enoxaparin Sodium (Lovenox) 40 mg DAILY SC Last administered on 03/22/17 08:42 ; Admin Dose 40 MG; Start 03/19/17 at 09:00 Furosemide (Lasix) 20 mg DAILY@06 GTB Last administered on 03/22/17 06:16; Admin Dose 20 MG; Start 03/19/17 at 06:00 Magnesium Hydroxide (Milk Of Mag) 30 ml QHS GTB Last administered on 03/21/17 20:47; Admin Dose 30 ML; Start 03/19/17 at 21:00 Ondansetron HCl (Zofran Tab) 4 mg Q6H PRN PO NAUSEA AND/OR VOMITING Last administered on 03/22/17 06:56; Admin Dose 4 MG; Start 03/19/17 at 05:00 Senna (Senokot) 2 tab QHS GTB Last administered on 03/21/17 20:46; Admin Dose 2 TAB; Start 03/19/17 at 21:00 Tramadol HCl (Ultram) 50 mg BID GTB Last administered on 03/22/17 08:44; Admin Dose 50 MG; Start 03/19/17 at 09:00 Zinc Sulfate (Zinc Sulfate) 220 mg DAILY GTB Last administered on 03/22/17 08: 44; Admin Dose 220 MG; Start 03/19/17 at 09:00 Acetaminophen (Tylenol Liquid) 650 mg Q4H PRN GTB MILD PAIN LEVEL 1-3 Last administered on 03/22/17 08:19; Admin Dose 650 MG; Start 03/19/17 at 06:00 Acetaminophen (Tylenol Liquid) 1,000 mg Q4H PRN PO PAIN LEVEL 4-6/10 Last administered on 03/22/17 03:30; Admin Dose 1,000 MG; Start 03/19/17 at 06:00 Ascorbic Acid (Vitamin C) 500 mg TID GTB Last administered on 03/22/17 08:44; Admin Dose 500 MG; Start 03/19/17 at 09:00 Insulin Aspart (Novolog Insulin Pen) NOVOLOG *MODERATE* ALGORI... Q6 SC Last administered on 03/22/17 06:19; Admin Dose 2 UNIT; Start 03/19/17 at 06:00 Miscellaneous Information 1 ea NOTE XX ; Start 03/19/17 at 06:00 Glucose (Glutose) 15 gm Q15M PRN PO DECREASED GLUCOSE; Start 03/19/17 at 06:00 Glucose (Glutose) 22.5 gm Q15M PRN PO DECREASED GLUCOSE; Start 03/19/17 at 06: 00 Dextrose (D50w Syringe) 25 ml Q15M PRN IV DECREASED GLUCOSE; Start 03/19/17 at 06:00 Dextrose (D50w Syringe) 50 ml Q15M PRN IV DECREASED GLUCOSE; Start 03/19/17 at 06:00 Glucagon (Glucagen) 1 mg Q15M PRN IM DECREASED GLUCOSE; Start 03/19/17 at 06:00 Glucose (Glutose) 15 gm Q15M PRN BUCCAL DECREASED GLUCOSE; Start 03/19/17 at 06 :00 Levetiracetam (Keppra Liquid) 500 mg BID GTB Last administered on 03/22/17 08: 44; Admin Dose 500 MG; Start 03/19/17 at 09:00 Ferrous Sulfate (Feosol Liquid Cup) 300 mg BID GTB Last administered on 08:44; Admin Dose 300 MG; Start 03/19/17 at 09:00 Multivitamins/ Minerals (Theragran-M) 1 tab BID GTB Last administered on 08:44; Admin Dose 1 TAB; Start 03/19/17 at 09:00 Insulin Human NPH (Humulin N) 8 unit TID SC Last administered on 03/22/17 08: 43; Admin Dose 8 UNIT; Start 03/19/17 at 09:00 Miscellaneous Information (Pending Santyl Order For Wound Care) This patient mahmood... PRN PRN XX WOUND CARE; Start 03/19/17 at 06:00 Potassium Chloride (Potassium Chloride Pwd/Soln) 40 meq DAILY GTB Last administered on 03/22/17 08:44; Admin Dose 40 MEQ; Start 03/19/17 at 09:00 Sodium Biphosphate/ Sodium Phosphate (Fleet Enema) 133 ml DAILY PRN PA CONSTIPATION; Start 03/19/17 at 06:30 Diltiazem HCl (Cardizem) 60 mg Q8 GTB Last administered on 03/22/17 06:16; Admin Dose 60 MG; Start 03/19/17 at 14:00 Insulin Glargine 24 unit 24 unit DAILY@20 SC Last administered on 03/21/17 20: 44; Admin Dose 24 UNIT; Start 03/21/17 at 20:00 Imipenem/ Cilastatin Sodium 100 ml @ 100 mls/hr Q6 IVPB Last administered on 05:27; Admin Dose 100 MLS/HR; Start 03/22/17 at 00:00 Sodium Chloride 1,000 ml @ 100 mls/hr Q10H IV Last administered on 03/21/17 22:09; Admin Dose 100 MLS/HR; Start 03/21/17 at 22:00 Vancomycin HCl/ Sodium Chloride (Vancocin/NS) 150 ml @ 75 mls/hr Q8H IVPB Last administered on 03/22/17 06:35; Admin Dose 75 MLS/HR; Start 03/22/17 at 06 :00 Metoprolol Tartrate (Lopressor) 5 mg Q6 PRN IV TACHYCARDIA Last administered on 03/22/17 11:57; Admin Dose 5 MG; Start 03/22/17 at 10:30 Miscellaneous Information (*Rx Drug Level Order Reminder*) VANCOMYCIN TROUGH LE... ONCE ONCE XX ; Start 03/22/17 at 21:00; Stop 03/22/17 at 21:01 Morphine Sulfate (morphine) 1 mg Q4H PRN IV severe pain; Start 03/22/17 at 12: 00; Status DENA BECKER Mar 22, 2017 12:08
[2017-03-22 12:34] LABS: AADO2 Arterial 235.4 mmHg (7.0-24.0); Allen Test ACCEPTAB; Arterial Base Excess 2.6 mmol/L (-3.0-3); Arterial COHb 0.3 % (0.0-3.0); Arterial Fraction of Oxyhgb 96.9 % (93.0-99.0); Arterial HCO3 26.3 mmol/L (22.0-26.0); Arterial MetHb 0.3 % (0.0-1.5); Arterial Total Hemglobin 8.5 g/dl (12.0-18.0); MODE MASK - SIMPLE
--- NOTE | 2017-03-22 13:21 | RADRPT ---
Echocardiogram Report Patient Name: SHALINI CARDENAS Gender: Female Date: 1960 Study Date: 22-Mar-2017 Accounts Receivable Supervisor: WINSTON [facility] Location: 2249 Ref. Physician: MICHAEL COLINDRES Quality: Adequate Procedures: Transthoracic echocardiogram with complete 2D, M-Mode, and doppler examination. Indications: Enlarged heart per cxr. 2D/M Mode Doppler Measurement Value Normal Ranges Measurement Value Normal Ranges LVIDd 2D 3.0 3.5 - 5.6 cm TEDDY Vmax 1.1 cm2 LVIDs 2D 1.7 2.1 - 4.1 cm AV Peak Gianni 1.6 m/sec FS 2D 41.9 % AV Peak PG 10.0 mmHg LVPWd 2D 0.8 0.6 - 1.1 cm LVOT Peak Gianni 1.3 m/sec IVSd 2D 0.8 0.6 - 1.1 cm LVOT Peak PG 7.0 mmHg IVS/LVPW 2D 1.0 TR Peak Gianni 2.6 m/sec AoR Diam 2D 2.0 2.0 - 3.7 cm TR Peak PG 26.0 mmHg LA/Ao 2D 1 0 - 1 RVSP 29.0 mmHg EDV 2D 26.5 cm3 ESV 2D 5.2 cm3 LA Dimen 2D 2.6 2.3 - 4.0 cm LVOT Diam 1.3 cm LVOT Area 1.3 cm2 Findings Left Ventricle: Normal left ventricular systolic function. Normal left ventricular cavity size. Normal left ventricular wall thickness. Ejection fraction is visually estimated at 65 %. Right Ventricle: Normal right ventricular size. Normal right ventricular systolic function. Left Atrium: The left atrium is normal in size. Right Atrium: The right atrium is normal in size. Mitral Valve: Mild mitral annular calcification. Trace mitral regurgitation. Aortic Valve: Normal appearance of the aortic valve. No significant aortic stenosis or insufficiency. Tricuspid Valve: Normal appearance and function of the tricuspid valve with trace physiologic regurgitation. Estimated peak PA systolic pressure 29 mmHg. Pulmonic Valve: Pulmonic valve not well visualized. Pericardium: Normal pericardium with no significant pericardial effusion. Aorta: Normal aortic root. IVC: Normal size and normal respiratory collapse consistent with normal right atrial pressure. Conclusions 1.Normal left ventricular systolic function. Normal left ventricular cavity size. Normal left ventricular wall thickness. Ejection fraction is visually estimated at 65 %. 2.Normal right ventricular size. Normal right ventricular systolic function. 3.The left atrium is normal in size. 4.The right atrium is normal in size. 5.No significant valvular stenosis or regurgitation seen. 6.Normal pericardium with no significant pericardial effusion. Electronically Signed By: Gamal Coronel 22-Mar-2017 13:20:50 -0700 Patient Name: SHALINI CARDENAS Study Date: 22-Mar-2017 [id number]
[2017-03-22 14:06] LABS: ADD SCAN DIFF NO
[2017-03-22 14:08] LABS: BASOPHILS % 0.1 % (0.0-2.0); EOSINOPHILS # 0.1 10^3/ul (0.0-0.5); EOSINOPHILS % 0.5 % (0.0-7.0); HEMATOCRIT 28.7 % (37.0-47.0); HEMOGLOBIN 8.9 g/dl (12.0-16.0); LYMPHOCYTES # 0.9 10^3/ul (0.8-2.9); LYMPHOCYTES % 4.6 % (15.0-51.0); MEAN CORPUSCULAR HEMOGLOBIN 30.6 pg (29.0-33.0); MEAN CORPUSCULAR VOLUME 98.6 fl (82.0-101.0); MEAN PLATELET VOLUME 11.1 fl (7.4-10.4); MONOCYTE # 0.6 10^3/ul (0.3-0.9); NEUTROPHIL # 16.7 10^3/ul (1.6-7.5); PLATELET COUNT 308 10^3/UL (140-415); RED BLOOD COUNT 2.91 10^6/ul (4.20-5.40); RED CELL DISTRIBUTION WIDTH 14.5 % (11.5-14.5); WHITE BLOOD COUNT 18.4 10^3/ul (4.8-10.8)
--- NOTE | 2017-03-22 14:21 | CONS ---
Date/Time of Note Date/Time of Note DATE: 03/22/17 TIME: 14:16 Assessment/Plan Assessment/Plan Additional Assessment/Plan Sepsis Sinus tachycardia History of paroxysmal atrial tachycardia Preserved ejection fraction Psychiatric disorder Seizure disorder -Telemetry reviewed and patient was sinus tachycardia in the 140s 150s initially in the ICU not currently down in the 90s. Tachycardia likely manifestation of sepsis and hypovolemia as well as anemia. Would treat underlying cause. No need for AV desiree blocking agents at the current time. Patient does have a history of paroxysmal atrial tachycardia on previous admission. Continue IV fluids with close monitoring of respiratory status, watching for decompensated congestive heart failure. Would continue on telemetry monitoring. Consultation Date/Type/Reason Admit Date/Time Mar 19, 2017 at 01:44 Type of Consultation: cv Reason for Consultation Tachycardia Hx of Present Illness This is a 56-year-old female known to me from previous admissions with history of psychiatric disorder, seizure disorder, tachycardia who was admitted with tachycardia, possible sepsis. Patient with heart rates in the 140s and transferred to the ICU. She denies any chest pain, palpitations, dizziness. She does complain of intermittent shortness of breath. She denies any fevers but does complain of occasional abdominal pain. She is currently feeling better. 12 point review of systems was performed with all pertinent positives and negatives mentioned above and all else is negative Past Medical History Psychiatric disorder Sinus tachycardia with paroxysmal atrial tachycardia Seizure disorder Past Surgical History Past Surgical Hx: no surgical history Family History Significant Family History: no pertinent family hx Social History Alcohol Use: none Smoking Status: Never smoker Other Social History From nursing facility Exam/Review of Systems Vital Signs Vitals Vital Signs Date Time Temp Pulse Resp B/P Pulse Ox O2 Delivery O2 Flow Rate FiO2 03/22/17 12:00 142 03/22/17 09:30 98.8 18 113/60 92 Nasal Cannula 3.0 Intake and Output 03/21/17 03/21/17 03/22/17 15:00 23:00 07:00 Intake Total 50 ml 720 ml 1760 ml Balance 50 ml 720 ml 1760 ml Exam Mild dyspnea with extensively speaking Constitutional: alert, oriented Head: normocephalic Respiratory: other (Coarse breath sounds bilaterally, no wheezing) Cardiovascular: other (S1-S2 heard, no murmurs appreciated), regular rate and rhythm (Tachycardia) Gastrointestinal: bowel sounds, non-tender, other (No guarding), soft Extremities: edema (No lower extremity edema) Results Result Diagram: 03/22/17 0505 03/22/17 0505 Results 24 hrs Laboratory Tests Test 03/21/17 16:58 03/21/17 20:32 03/21/17 22:15 03/21/17 23:40 Bedside Glucose 227 H 209 345 H White Blood Count 15.2 H Red Blood Count 3.00 L Hemoglobin 9.4 L Hematocrit 28.7 L Mean Corpuscular Volume 95.7 Mean Corpuscular Hemoglobin 31.3 Mean Corpuscular Hemoglobin Concent 32.8 Red Cell Distribution Width 14.4 Platelet Count 309 Mean Platelet Volume 11.2 H Neutrophils % 86.7 H Lymphocytes % 7.7 L Monocytes % 4.7 Eosinophils % 0.3 Basophils % 0.1 Nucleated Red Blood Cells % 0.0 Neutrophils # 13.2 H Lymphocytes # 1.2 Monocytes # 0.7 Eosinophils # 0.0 Basophils # 0.0 Nucleated Red Blood Cells # 0.0 Sodium Level 136 Potassium Level 3.4 L Chloride Level 96 L Carbon Dioxide Level 28 Anion Gap 15 Blood Urea Nitrogen 25 H Creatinine 0.57 Glucose Level 330 H Lactic Acid Level 1.3 Calcium Level 8.9 Test 03/22/17 02:13 03/22/17 05:05 03/22/17 06:14 03/22/17 08:40 Bedside Glucose 212 170 186 White Blood Count 15.8 H Red Blood Count 3.06 L Hemoglobin 9.5 L Hematocrit 30.0 L Mean Corpuscular Volume 98.0 Mean Corpuscular Hemoglobin 31.0 Mean Corpuscular Hemoglobin Concent 31.7 L Red Cell Distribution Width 14.6 H Platelet Count 305 Mean Platelet Volume 11.4 H Neutrophils % 90.9 H Lymphocytes % 4.2 L Monocytes % 2.1 Eosinophils % 2.0 Basophils % 0.2 Nucleated Red Blood Cells % 0.0 Neutrophils # 14.4 H Lymphocytes # 0.7 L Monocytes # 0.3 Eosinophils # 0.3 Basophils # 0.0 Nucleated Red Blood Cells # 0.0 Sodium Level 139 Potassium Level 3.8 Chloride Level 102 Carbon Dioxide Level 26 Anion Gap 15 Blood Urea Nitrogen 25 H Creatinine 0.58 Glucose Level 189 # Calcium Level 9.2 Test 03/22/17 11:41 03/22/17 12:56 Blood Gas Specimen Source Blood arterial Arterial Blood Date Drawn 03/22/2017 11:50:27 AM Arterial Blood pH (Temp corrected) 7.469 H Arterial Blood pCO2 (Temp correct) 37.1 Arterial Blood pO2 (Temp corrected) 101.0 H Arterial Blood HCO3 26.3 H Arterial Blood Base Excess 2.6 Arterial Blood Oxygen Saturation 97.5 Ramez Test ACCEPTAB Arterial Blood Gas Puncture Site Right Radial Arterial Blood Carboxyhemoglobin 0.3 Arterial Blood Methemoglobin 0.3 Blood Gas A-a O2 Differential 235.4 H Oxyhemoglobin Percent 96.9 Total Hemoglobin 8.5 L Blood Gas Temperature 37.0 Blood Gas Modality MASK - SIMPLE FiO2 53.0 Blood Gas Notified Whom JLD Blood Gas Notified Time 03/22/2017 12:34:00 PM Bedside Glucose 152 Medications Medications Current Medications Atorvastatin Calcium (Lipitor) 40 mg HS GTB Last administered on 03/21/17 20: 47; Admin Dose 40 MG; Start 03/19/17 at 21:00 Bisacodyl (Dulcolax Supp) 10 mg DAILY PRN FL PRN; Start 03/19/17 at 05:00 Docusate Sodium (Colace) 200 mg DAILY PO Last administered on 03/22/17 08:44; Admin Dose 200 MG; Start 03/19/17 at 09:00 Enoxaparin Sodium (Lovenox) 40 mg DAILY SC Last administered on 03/22/17 08:42 ; Admin Dose 40 MG; Start 03/19/17 at 09:00 Furosemide (Lasix) 20 mg DAILY@06 GTB Last administered on 03/22/17 06:16; Admin Dose 20 MG; Start 03/19/17 at 06:00 Magnesium Hydroxide (Milk Of Mag) 30 ml QHS GTB Last administered on 03/21/17 20:47; Admin Dose 30 ML; Start 03/19/17 at 21:00 Ondansetron HCl (Zofran Tab) 4 mg Q6H PRN PO NAUSEA AND/OR VOMITING Last administered on 03/22/17 06:56; Admin Dose 4 MG; Start 03/19/17 at 05:00 Senna (Senokot) 2 tab QHS GTB Last administered on 03/21/17 20:46; Admin Dose 2 TAB; Start 03/19/17 at 21:00 Tramadol HCl (Ultram) 50 mg BID GTB Last administered on 03/22/17 08:44; Admin Dose 50 MG; Start 03/19/17 at 09:00 Zinc Sulfate (Zinc Sulfate) 220 mg DAILY GTB Last administered on 03/22/17 08: 44; Admin Dose 220 MG; Start 03/19/17 at 09:00 Acetaminophen (Tylenol Liquid) 650 mg Q4H PRN GTB MILD PAIN LEVEL 1-3 Last administered on 03/22/17 08:19; Admin Dose 650 MG; Start 03/19/17 at 06:00 Acetaminophen (Tylenol Liquid) 1,000 mg Q4H PRN PO PAIN LEVEL 4-6/10 Last administered on 03/22/17 03:30; Admin Dose 1,000 MG; Start 03/19/17 at 06:00 Ascorbic Acid (Vitamin C) 500 mg TID GTB Last administered on 03/22/17 12:54; Admin Dose 500 MG; Start 03/19/17 at 09:00 Insulin Aspart (Novolog Insulin Pen) NOVOLOG *MODERATE* ALGORI... Q6 SC Last administered on 03/22/17 13:13; Admin Dose 2 UNIT; Start 03/19/17 at 06:00 Miscellaneous Information 1 ea NOTE XX ; Start 03/19/17 at 06:00 Glucose (Glutose) 15 gm Q15M PRN PO DECREASED GLUCOSE; Start 03/19/17 at 06:00 Glucose (Glutose) 22.5 gm Q15M PRN PO DECREASED GLUCOSE; Start 03/19/17 at 06: 00 Dextrose (D50w Syringe) 25 ml Q15M PRN IV DECREASED GLUCOSE; Start 03/19/17 at 06:00 Dextrose (D50w Syringe) 50 ml Q15M PRN IV DECREASED GLUCOSE; Start 03/19/17 at 06:00 Glucagon (Glucagen) 1 mg Q15M PRN IM DECREASED GLUCOSE; Start 03/19/17 at 06:00 Glucose (Glutose) 15 gm Q15M PRN BUCCAL DECREASED GLUCOSE; Start 03/19/17 at 06 :00 Levetiracetam (Keppra Liquid) 500 mg BID GTB Last administered on 03/22/17 08: 44; Admin Dose 500 MG; Start 03/19/17 at 09:00 Ferrous Sulfate (Feosol Liquid Cup) 300 mg BID GTB Last administered on 08:44; Admin Dose 300 MG; Start 03/19/17 at 09:00 Multivitamins/ Minerals (Theragran-M) 1 tab BID GTB Last administered on 08:44; Admin Dose 1 TAB; Start 03/19/17 at 09:00 Insulin Human NPH (Humulin N) 8 unit TID SC Last administered on 03/22/17 13: 14; Admin Dose 8 UNIT; Start 03/19/17 at 09:00 [facility]isc[facility] This patient mahmood... PRN PRN XX WOUND CARE; Start 03/19/17 at 06:00 Potassium Chloride (Potassium Chloride Pwd/Soln) 40 meq DAILY GTB Last administered on 03/22/17 08:44; Admin Dose 40 MEQ; Start 03/19/17 at 09:00 Sodium Biphosphate/ Sodium Phosphate (Fleet Enema) 133 ml DAILY PRN FL CONSTIPATION; Start 03/19/17 at 06:30 Diltiazem HCl (Cardizem) 60 mg Q8 GTB Last administered on 03/22/17 13:14; Admin Dose 60 MG; Start 03/19/17 at 14:00 Insulin Glargine 24 unit 24 unit DAILY@20 SC Last administered on 03/21/17 20: 44; Admin Dose 24 UNIT; Start 03/21/17 at 20:00 Imipenem/ Cilastatin Sodium 100 ml @ 100 mls/hr Q6 IVPB Last administered on 12:43; Admin Dose 100 MLS/HR; Start 03/22/17 at 00:00 Sodium Chloride (NS) 1,000 ml @ 100 mls/hr Q10H IV Last administered on 22:09; Admin Dose 100 MLS/HR; Start 03/21/17 at 22:00 Metoprolol Tartrate (Lopressor) 5 mg Q6 PRN IV TACHYCARDIA Last administered on 03/22/17 11:57; Admin Dose 5 MG; Start 03/22/17 at 10:30 Miscellaneous Information (*Rx Drug Level Order Reminder*) VANCOMYCIN TROUGH LEVEL... ONCE ONCE XX ; Start 03/23/17 at 05:00; Stop 03/23/17 at 05:01 Morphine Sulfate 1 mg 1 mg Q4H PRN IV severe pain; Start 03/22/17 at 12:00 Vancomycin HCl/ Sodium Chloride (Vancocin/NS) 150 ml @ 75 mls/hr Q12H IVPB ; Start 03/22/17 at 18:00 Procedures Procedures ECG from March 18 demonstrates sinus tachycardia at 127 bpm, QRS 66 ms, nonspecific STT wave abnormalities Gamal Coronel DO Mar 22, 2017 14:21
--- NOTE | 2017-03-22 14:44 | RADRPT ---
PROCEDURE: XR Chest. CLINICAL INDICATION: r/out pna TECHNIQUE: Single frontal view of the chest was obtained. COMPARISON: Chest x-ray from 03/18/2017 and CTA chest from 03/19/2017 FINDINGS: The heart and mediastinum are within normal limits. There is mild elevation of the right hemidiaphragm as well as right basilar atelectasis. There is prominence of interstitial markings consistent with mild congestive changes. There is no significant pleural effusion or pneumothorax. IMPRESSION: Mild pulmonary vascular congestion. Subsegmental right basilar atelectasis. RPTAT: EE Physician Digna Date Time Electronically viewed and signed by Physician Digna on 03/22/2017 14:44 RA/
--- NOTE | 2017-03-22 14:45 | RADRPT ---
PROCEDURE: XR Abdomen. CLINICAL INDICATION: VOMITING TECHNIQUE: AP abdomen x-ray. COMPARISON: None. FINDINGS: There is a nonobstructive bowel gas pattern. A gastrostomy tube is noted. Stool is noted in the descending colon. There are no abnormal calcifications overlying the urinary tracts. There is decreased osseous mineralization. There is a left hip prosthesis. IMPRESSION: Nonobstructive bowel gas pattern. Gastrostomy tube. Left hip prosthesis. RPTAT: EE Physician Digna Date Time Electronically viewed and signed by Joesph Acuna Physician on 03/22/2017 14:45 RA/
[2017-03-22] MEDS: morphine 2 MG INJ IV PRN (17:15)
[2017-03-22] MEDS: VANCOMYCIN 750 MG in SOD CHLORIDE 0.9% 150 ML IVPB SCH (17:16)
--- NOTE | 2017-03-22 17:48 | CONS ---
DATE OF ADMISSION: 03/19/2017 DATE OF CONSULTATION: 03/22/2017 TYPE OF CONSULTATION: Pulmonary. Thank you, Dr. Aly, for this consultation. HISTORY OF PRESENT ILLNESS: This is a 56-year-old lady with multiple medical problems including bip olar disorder, schizophrenia, hypertension, hyperlipidemia, dysphagia with G-tube, history of tonic- clonic seizures, recurrent sepsis; who came in this time with tachycardia, dyspnea, and now worsenin g hypoxemia, found to have possible early right lower lobe infiltrate with subsequent hypoxemia. Th e patient is a poor historian, unable to give me further details. PAST MEDICAL HISTORY: As above. MEDICATIONS: Per chart. ALLERGIES: NONE. SOCIAL HISTORY: Nonsmoker, no alcohol, no history of drug use. FAMILY HISTORY: Noncontributory. PHYSICAL EXAMINATION: GENERAL: Elderly, chronically ill-appearing lady, appears comfortable at rest, no acute distress. VITAL SIGNS: Temperature 98, pulse is 125, blood pressure 108/55, O2 saturation 96% on 3 L nasal ca nnula. NECK: Supple. No JVD or lymphadenopathy. CARDIAC: S1, S2, no added sounds or murmurs. CHEST: Diminished air entry bilaterally. ABDOMEN: Soft, nontender. No guarding or rebound. EXTREMITIES: No cyanosis, clubbing, edema. NEUROLOGIC: Generalized weakness. LABORATORIES: White count 18.4, hemoglobin 8.9, platelets of 308. Chemistry: BUN 25, creatinine 0 .58. INR 0.95. ABG today pH 7.46, pCO2 of 37, PaO2 of 102, bicarbonate was 26. IMAGING: Chest x-ray was reviewed, shows right marked congestion with right basilar atelectasis. IMPRESSION AND PLAN: 1. Hypoxemic respiratory failure, likely secondary to healthcare-associated pneumonia. 2. Possible aspiration component. 3. History of bipolar disorder and schizophrenia. 4. History of dysphagia with gastrostomy tube. 5. Sinus tachycardia, likely secondary to underlying infection. PATIENT WILL NEED: 1. Incentive spirometry, if tolerated. 2. Supplemental O2. 3. Broad-spectrum antibiotic coverage, and reconsider ID consult. 4. Deep venous thrombosis and gastrointestinal prophylaxis. Dictated By: GINO SORTO/RUSTY Conf#: [id number] DID#: [id number]
--- NOTE | 2017-03-22 18:38 | CONS ---
Date/Time of Note Date/Time of Note DATE: 03/22/17 TIME: 11:00 Assessment/Plan Assessment/Plan Chief Complaint/Hosp Course patient seen and examined. full note to follow. Problems: Consultation Date/Type/Reason Admit Date/Time Mar 19, 2017 at 01:44 Initial Consult Date Type of Consultation: cv Exam/Review of Systems Vital Signs Vitals Vital Signs Date Time Temp Pulse Resp B/P Pulse Ox O2 Delivery O2 Flow Rate FiO2 03/22/17 16:00 Simple Mask 3.0 03/22/17 16:00 125 03/22/17 15:45 30 108/58 95 03/22/17 12:00 98.2 Intake and Output 03/21/17 03/21/17 03/22/17 14:59 22:59 06:59 Intake Total 50 ml 720 ml 1760 ml Balance 50 ml 720 ml 1760 ml Results Result Diagram: 03/22/17 1345 03/22/17 0505 Results 24 hrs Laboratory Tests Test 03/21/17 20:32 03/21/17 22:15 03/21/17 23:40 03/22/17 02:13 Bedside Glucose 209 345 H 212 White Blood Count 15.2 H Red Blood Count 3.00 L Hemoglobin 9.4 L Hematocrit 28.7 L Mean Corpuscular Volume 95.7 Mean Corpuscular Hemoglobin 31.3 Mean Corpuscular Hemoglobin Concent 32.8 Red Cell Distribution Width 14.4 Platelet Count 309 Mean Platelet Volume 11.2 H Neutrophils % 86.7 H Lymphocytes % 7.7 L Monocytes % 4.7 Eosinophils % 0.3 Basophils % 0.1 Nucleated Red Blood Cells % 0.0 Neutrophils # 13.2 H Lymphocytes # 1.2 Monocytes # 0.7 Eosinophils # 0.0 Basophils # 0.0 Nucleated Red Blood Cells # 0.0 Sodium Level 136 Potassium Level 3.4 L Chloride Level 96 L Carbon Dioxide Level 28 Anion Gap 15 Blood Urea Nitrogen 25 H Creatinine 0.57 Glucose Level 330 H Lactic Acid Level 1.3 Calcium Level 8.9 Test 03/22/17 05:05 03/22/17 06:14 03/22/17 08:40 03/22/17 11:41 White Blood Count 15.8 H Red Blood Count 3.06 L Hemoglobin 9.5 L Hematocrit 30.0 L Mean Corpuscular Volume 98.0 Mean Corpuscular Hemoglobin 31.0 Mean Corpuscular Hemoglobin Concent 31.7 L Red Cell Distribution Width 14.6 H Platelet Count 305 Mean Platelet Volume 11.4 H Neutrophils % 90.9 H Lymphocytes % 4.2 L Monocytes % 2.1 Eosinophils % 2.0 Basophils % 0.2 Nucleated Red Blood Cells % 0.0 Neutrophils # 14.4 H Lymphocytes # 0.7 L Monocytes # 0.3 Eosinophils # 0.3 Basophils # 0.0 Nucleated Red Blood Cells # 0.0 Sodium Level 139 Potassium Level 3.8 Chloride Level 102 Carbon Dioxide Level 26 Anion Gap 15 Blood Urea Nitrogen 25 H Creatinine 0.58 Glucose Level 189 # Calcium Level 9.2 Bedside Glucose 170 186 Blood Gas Specimen Source Blood arterial Arterial Blood Date Drawn 03/22/2017 11:50:27 AM Arterial Blood pH (Temp corrected) 7.469 H Arterial Blood pCO2 (Temp correct) 37.1 Arterial Blood pO2 (Temp corrected) 101.0 H Arterial Blood HCO3 26.3 H Arterial Blood Base Excess 2.6 Arterial Blood Oxygen Saturation 97.5 Ramez Test ACCEPTAB Arterial Blood Gas Puncture Site Right Radial Arterial Blood Carboxyhemoglobin 0.3 Arterial Blood Methemoglobin 0.3 Blood Gas A-a O2 Differential 235.4 H Oxyhemoglobin Percent 96.9 Total Hemoglobin 8.5 L Blood Gas Temperature 37.0 Blood Gas Modality MASK - SIMPLE FiO2 53.0 Blood Gas Notified Whom JLD Blood Gas Notified Time 03/22/2017 12:34:00 PM Test 03/22/17 12:56 03/22/17 13:45 03/22/17 17:29 Bedside Glucose 152 183 White Blood Count 18.4 H Red Blood Count 2.91 L Hemoglobin 8.9 L Hematocrit 28.7 L Mean Corpuscular Volume 98.6 Mean Corpuscular Hemoglobin 30.6 Mean Corpuscular Hemoglobin Concent 31.0 L Red Cell Distribution Width 14.5 Platelet Count 308 Mean Platelet Volume 11.1 H Neutrophils % 91.0 H Lymphocytes % 4.6 L Monocytes % 3.0 Eosinophils % 0.5 Basophils % 0.1 Nucleated Red Blood Cells % 0.0 Neutrophils # 16.7 H Lymphocytes # 0.9 Monocytes # 0.6 Eosinophils # 0.1 Basophils # 0.0 Nucleated Red Blood Cells # 0.0 Lactic Acid Level 1.6 Medications Medications Current Medications Atorvastatin Calcium (Lipitor) 40 mg HS GTB Last administered on 03/21/17 20: 47; Admin Dose 40 MG; Start 03/19/17 at 21:00 Bisacodyl (Dulcolax Supp) 10 mg DAILY PRN [place] PRN; Start 03/19/17 at 05:00 Docusate Sodium (Colace) 200 mg DAILY PO Last administered on 03/22/17 08:44; Admin Dose 200 MG; Start 03/19/17 at 09:00 Enoxaparin Sodium (Lovenox) 40 mg DAILY SC Last administered on 03/22/17 08:42 ; Admin Dose 40 MG; Start 03/19/17 at 09:00 Furosemide (Lasix) 20 mg DAILY@06 GTB Last administered on 03/22/17 06:16; Admin Dose 20 MG; Start 03/19/17 at 06:00 Magnesium Hydroxide (Milk Of Mag) 30 ml QHS GTB Last administered on 03/21/17 20:47; Admin Dose 30 ML; Start 03/19/17 at 21:00 Ondansetron HCl (Zofran Tab) 4 mg Q6H PRN PO NAUSEA AND/OR VOMITING Last administered on 03/22/17 06:56; Admin Dose 4 MG; Start 03/19/17 at 05:00 Senna (Senokot) 2 tab QHS GTB Last administered on 03/21/17 20:46; Admin Dose 2 TAB; Start 03/19/17 at 21:00 Tramadol HCl (Ultram) 50 mg BID GTB Last administered on 03/22/17 08:44; Admin Dose 50 MG; Start 03/19/17 at 09:00 Zinc Sulfate (Zinc Sulfate) 220 mg DAILY GTB Last administered on 03/22/17 08: 44; Admin Dose 220 MG; Start 03/19/17 at 09:00 Acetaminophen (Tylenol Liquid) 650 mg Q4H PRN GTB MILD PAIN LEVEL 1-3 Last administered on 03/22/17 08:19; Admin Dose 650 MG; Start 03/19/17 at 06:00 Acetaminophen (Tylenol Liquid) 1,000 mg Q4H PRN PO PAIN LEVEL 4-6/10 Last administered on 03/22/17 03:30; Admin Dose 1,000 MG; Start 03/19/17 at 06:00 Ascorbic Acid (Vitamin C) 500 mg TID GTB Last administered on 03/22/17 12:54; Admin Dose 500 MG; Start 03/19/17 at 09:00 Insulin Aspart (Novolog Insulin Pen) NOVOLOG *MODERATE* ALGORI... Q6 SC Last administered on 03/22/17 17:31; Admin Dose 4 UNIT; Start 03/19/17 at 06:00 Miscellaneous Information 1 ea NOTE XX ; Start 03/19/17 at 06:00 Glucose (Glutose) 15 gm Q15M PRN PO DECREASED GLUCOSE; Start 03/19/17 at 06:00 Glucose (Glutose) 22.5 gm Q15M PRN PO DECREASED GLUCOSE; Start 03/19/17 at 06: 00 Dextrose (D50w Syringe) 25 ml Q15M PRN IV DECREASED GLUCOSE; Start 03/19/17 at 06:00 Dextrose (D50w Syringe) 50 ml Q15M PRN IV DECREASED GLUCOSE; Start 03/19/17 at 06:00 Glucagon (Glucagen) 1 mg Q15M PRN IM DECREASED GLUCOSE; Start 03/19/17 at 06:00 Glucose (Glutose) 15 gm Q15M PRN BUCCAL DECREASED GLUCOSE; Start 03/19/17 at 06 :00 Levetiracetam (Keppra Liquid) 500 mg BID GTB Last administered on 03/22/17 08: 44; Admin Dose 500 MG; Start 03/19/17 at 09:00 Ferrous Sulfate (Feosol Liquid Cup) 300 mg BID GTB Last administered on 08:44; Admin Dose 300 MG; Start 03/19/17 at 09:00 Multivitamins/ Minerals (Theragran-M) 1 tab BID GTB Last administered on 08:44; Admin Dose 1 TAB; Start 03/19/17 at 09:00 Insulin Human NPH (Humulin N) 8 unit TID SC Last administered on 03/22/17 13: 14; Admin Dose 8 UNIT; Start 03/19/17 at 09:00 Miscellaneous Information (Pending Santyl Order For Wound Care) This patient mahmood... PRN PRN XX WOUND CARE; Start 03/19/17 at 06:00 Potassium Chloride (Potassium Chloride Pwd/Soln) 40 meq DAILY GTB Last administered on 03/22/17 08:44; Admin Dose 40 MEQ; Start 03/19/17 at 09:00 Sodium Biphosphate/ Sodium Phosphate (Fleet Enema) 133 ml DAILY PRN [place] CONSTIPATION; Start 03/19/17 at 06:30 Diltiazem HCl (Cardizem) 60 mg Q8 GTB Last administered on 03/22/17 13:14; Admin Dose 60 MG; Start 03/19/17 at 14:00 Insulin Glargine 24 unit 24 unit DAILY@20 SC Last administered on 03/21/17 20: 44; Admin Dose 24 UNIT; Start 03/21/17 at 20:00 Imipenem/ Cilastatin Sodium 100 ml @ 100 mls/hr Q6 IVPB Last administered on 17:24; Admin Dose 100 MLS/HR; Start 03/22/17 at 00:00 Sodium Chloride (NS) 1,000 ml @ 100 mls/hr Q10H IV Last administered on 17:08; Admin Dose 100 MLS/HR; Start 03/21/17 at 22:00 Metoprolol Tartrate (Lopressor) 5 mg Q6 PRN IV TACHYCARDIA Last administered on 03/22/17 17:38; Admin Dose 5 MG; Start 03/22/17 at 10:30 Miscellaneous Information (*Rx Drug Level Order Reminder*) VANCOMYCIN TROUGH LEVEL... ONCE ONCE XX ; Start 03/23/17 at 05:00; Stop 03/23/17 at 05:01 Morphine Sulfate 1 mg 1 mg Q4H PRN IV severe pain Last administered on 17:15; Admin Dose 1 MG; Start 03/22/17 at 12:00 Vancomycin HCl/ Sodium Chloride (Vancocin/NS) 150 ml @ 75 mls/hr Q12H IVPB Last administered on 03/22/17 17:16; Admin Dose 75 MLS/HR; Start 03/22/17 at 18 :00 BENITO THOMAS MD Mar 22, 2017 18:38
[2017-03-22] MEDS: INSULIN GLARGINE [LANtus] 3 ML PEN SC SCH (20:07)
[2017-03-22] MEDS: MAGNESIUM HYDROXIDE 30ML CUP GTB SCH (20:12)
[2017-03-22] MEDS: ATORVASTATIN 40 MG TAB GTB SCH (20:12)
[2017-03-22] MEDS: SENNA TAB GTB SCH (20:17)
[2017-03-23] VITALS (21 sets, daily range): BP systolic 102–158; BP diastolic 42–98; PULSE 99–127; RESP 23–45
[2017-03-23] MEDS: morphine 2 MG INJ IV PRN (01:04)
[2017-03-23] MEDS: METOPROLOL 5 MG INJ IV PRN ×3 (02:00→18:02)
[2017-03-23] MEDS: ALBUTEROL/IPRATROPIUM (NEB) 3 ML AMP HHN PRN ×3 (03:10→18:16)
[2017-03-23] MEDS: SOD CHLORIDE 0.9% 1,000 ML IV SCH (04:00)
[2017-03-23] MEDS: ONDANSETRON 4 MG INJ IV PRN ×3 (05:10→19:49)
[2017-03-23] MEDS: IMIPENEM-CILAST 500MG IV (PMX) 100 ML IVPB SCH ×4 (05:14→23:56)
[2017-03-23 05:19] LABS: ADD SCAN DIFF NO
[2017-03-23 05:35] LABS: BASOPHILS % 0.1 % (0.0-2.0); EOSINOPHILS # 0.6 10^3/ul (0.0-0.5); EOSINOPHILS % 3.4 % (0.0-7.0); HEMATOCRIT 26.9 % (37.0-47.0); HEMOGLOBIN 8.6 g/dl (12.0-16.0); LYMPHOCYTES # 1.2 10^3/ul (0.8-2.9); LYMPHOCYTES % 7.6 % (15.0-51.0); MEAN CORPUSCULAR HEMOGLOBIN 31.5 pg (29.0-33.0); MEAN CORPUSCULAR VOLUME 98.5 fl (82.0-101.0); MEAN PLATELET VOLUME 11.1 fl (7.4-10.4); MONOCYTE # 0.4 10^3/ul (0.3-0.9); MONOCYTES % 2.6 % (0.0-11.0); NEUTROPHIL # 13.7 10^3/ul (1.6-7.5); NEUTROPHILS % 85.6 % (39.0-77.0); PLATELET COUNT 336 10^3/UL (140-415); RED BLOOD COUNT 2.73 10^6/ul (4.20-5.40); RED CELL DISTRIBUTION WIDTH 14.7 % (11.5-14.5)
[2017-03-23 05:45] LABS: CALCIUM 8.6 mg/dl (8.4-10.2); CREATININE 0.47 mg/dl (0.44-1.00)
[2017-03-23] MEDS: DILTIAZEM 60 MG TAB GTB SCH ×3 (05:45→21:19)
[2017-03-23] MEDS: FUROSEMIDE 20 MG TAB GTB SCH (05:46)
[2017-03-23] MEDS: INSULIN ASPART [NOVOLOG] 3 ML PEN SC SCH ×4 (06:07→23:59)
[2017-03-23] MEDS: VANCOMYCIN 750 MG in SOD CHLORIDE 0.9% 150 ML IVPB SCH ×2 (06:32→18:28)
[2017-03-23] MEDS: DOCUSATE SODIUM 100 MG CAP PO SCH (09:00)
[2017-03-23] MEDS: MULTIVITAMINS/MINERALS TAB GTB SCH ×2 (09:00→20:07)
--- NOTE | 2017-03-23 09:07 | CONS ---
Date/Time of Note Date/Time of Note DATE: 03/23/17 TIME: 08:58 Assessment/Plan Assessment/Plan Chief Complaint/Hosp Course 1. Probable hcap 2. Severe Sepsis 3. right hand swelling w/u in progress 4. multiple chronic medical problems: chizophrenia and bipolar disorder, hypertension, diabetes, dyslipidemia, dysphagia with G-tube placement and history of tonic-clonic seizures, thalassemia, urinary tract infection r: f/u little cx procalc lactic acid cont. vanco/imipenm monitor hand clinically consideration of hand mri based on clinical response Problems: Consultation Date/Type/Reason Admit Date/Time Mar 19, 2017 at 01:44 Date of Consultation: Mar 22, 2017 Reason for Consultation abx recs; severe sepsis, hand infection and pna Hx of Present Illness This is a 56 yo female with multiple chronic medical problems including schizophrenia, bipolar disorder, hypertension, diabetes, dyslipidemia, dysphagia with G-tube placement, tonic-clonic seizures,sepsis and urinary tract infection, recent admit for [employer] bacteremia in January s/p a course of Vanco. She was recently back at nursing facility and noted to have swelling/mild erythema of right hand. In d/w with pmd it was noted to not have improved with septra/keflex. She was subsequently noted to have fever and probable sepsis. She was admitted and started on broad spectrum abx. cxs have remained negative. CT of hand is unrevealing. She has been seen by multiple consultants. There is a concern for early hcap. Eyes: no complaints ENT: no complaints Respiratory: no complaints Cardiovascular: no complaints Gastrointestinal: no complaints Psychological: nl mood/affect Past Surgical History Past Surgical Hx: no surgical history Social History Alcohol Use: none Smoking Status: Never smoker Exam/Review of Systems Vital Signs Vitals Vital Signs Date Time Temp Pulse Resp B/P Pulse Ox O2 Delivery O2 Flow Rate FiO2 03/23/17 08:27 Simple Mask 10.0 03/23/17 08:00 98.2 108 27 102/59 96 Intake and Output 03/22/17 03/22/17 03/23/17 15:00 23:00 07:00 Intake Total 820 ml 1080 ml 710 ml Balance 820 ml 1080 ml 710 ml Exam Constitutional: alert Psych: anxiety, no complaints Head: atraumatic, normocephalic Eyes: EOMI, PERRL, nl conjunctiva, nl lids, nl sclera ENMT: nl external ears & nose, nl lips & teeth, nl nasal mucosa & septum Respiratory: clear to auscultation, normal air movement Cardiovascular: nl pulses, regular rate and rhythm Gastrointestinal: nl liver, spleen, non-tender, soft Results Result Diagram: 03/23/17 0507 03/23/17 0507 Results 24 hrs Laboratory Tests Test 03/22/17 11:41 03/22/17 12:56 03/22/17 13:45 03/22/17 17:29 Blood Gas Specimen Source Blood arterial Arterial Blood Date Drawn 03/22/2017 11:50:27 AM Arterial Blood pH (Temp corrected) 7.469 H Arterial Blood pCO2 (Temp correct) 37.1 Arterial Blood pO2 (Temp corrected) 101.0 H Arterial Blood HCO3 26.3 H Arterial Blood Base Excess 2.6 Arterial Blood Oxygen Saturation 97.5 Ramez Test ACCEPTAB Arterial Blood Gas Puncture Site Right Radial Arterial Blood Carboxyhemoglobin 0.3 Arterial Blood Methemoglobin 0.3 Blood Gas A-a O2 Differential 235.4 H Oxyhemoglobin Percent 96.9 Total Hemoglobin 8.5 L Blood Gas Temperature 37.0 Blood Gas Modality MASK - SIMPLE FiO2 53.0 Blood Gas Notified Whom JLD Blood Gas Notified Time 03/22/2017 12:34:00 PM Bedside Glucose 152 183 White Blood Count 18.4 H Red Blood Count 2.91 L Hemoglobin 8.9 L Hematocrit 28.7 L Mean Corpuscular Volume 98.6 Mean Corpuscular Hemoglobin 30.6 Mean Corpuscular Hemoglobin Concent 31.0 L Red Cell Distribution Width 14.5 Platelet Count 308 Mean Platelet Volume 11.1 H Neutrophils % 91.0 H Lymphocytes % 4.6 L Monocytes % 3.0 Eosinophils % 0.5 Basophils % 0.1 Nucleated Red Blood Cells % 0.0 Neutrophils # 16.7 H Lymphocytes # 0.9 Monocytes # 0.6 Eosinophils # 0.1 Basophils # 0.0 Nucleated Red Blood Cells # 0.0 Lactic Acid Level 1.6 Test 03/22/17 20:03 03/22/17 23:05 03/23/17 05:07 03/23/17 06:04 Bedside Glucose 211 253 H 146 White Blood Count 16.0 H Red Blood Count 2.73 L Hemoglobin 8.6 L Hematocrit 26.9 L Mean Corpuscular Volume 98.5 Mean Corpuscular Hemoglobin 31.5 Mean Corpuscular Hemoglobin Concent 32.0 Red Cell Distribution Width 14.7 H Platelet Count 336 Mean Platelet Volume 11.1 H Neutrophils % 85.6 H Lymphocytes % 7.6 L Monocytes % 2.6 Eosinophils % 3.4 Basophils % 0.1 Nucleated Red Blood Cells % 0.0 Neutrophils # 13.7 H Lymphocytes # 1.2 Monocytes # 0.4 Eosinophils # 0.6 H Basophils # 0.0 Nucleated Red Blood Cells # 0.0 Sodium Level 142 Potassium Level 4.0 Chloride Level 103 Carbon Dioxide Level 26 Anion Gap 17 H Blood Urea Nitrogen 29 H Creatinine 0.47 Glucose Level 150 Calcium Level 8.6 Vancomycin Level Trough 12.8 Medications Medications Current Medications Atorvastatin Calcium (Lipitor) 40 mg HS GTB Last administered on 03/22/17 20: 12; Admin Dose 40 MG; Start 03/19/17 at 21:00 Bisacodyl (Dulcolax Supp) 10 mg DAILY PRN [place] PRN; Start 03/19/17 at 05:00 Docusate Sodium (Colace) 200 mg DAILY PO Last administered on 03/22/17 08:44; Admin Dose 200 MG; Start 03/19/17 at 09:00 Enoxaparin Sodium (Lovenox) 40 mg DAILY SC Last administered on 03/22/17 08:42 ; Admin Dose 40 MG; Start 03/19/17 at 09:00 Furosemide (Lasix) 20 mg DAILY@06 GTB Last administered on 03/23/17 05:46; Admin Dose 20 MG; Start 03/19/17 at 06:00 Magnesium Hydroxide (Milk Of Mag) 30 ml QHS GTB Last administered on 03/22/17 20:12; Admin Dose 30 ML; Start 03/19/17 at 21:00 Ondansetron HCl (Zofran Tab) 4 mg Q6H PRN PO NAUSEA AND/OR VOMITING Last administered on 03/22/17 06:56; Admin Dose 4 MG; Start 03/19/17 at 05:00 Senna (Senokot) 2 tab QHS GTB Last administered on 03/22/17 20:17; Admin Dose 2 TAB; Start 03/19/17 at 21:00 Tramadol HCl (Ultram) 50 mg BID GTB Last administered on 03/22/17 20:13; Admin Dose 50 MG; Start 03/19/17 at 09:00 Zinc Sulfate (Zinc Sulfate) 220 mg DAILY GTB Last administered on 03/22/17 08: 44; Admin Dose 220 MG; Start 03/19/17 at 09:00 Acetaminophen (Tylenol Liquid) 650 mg Q4H PRN GTB MILD PAIN LEVEL 1-3 Last administered on 03/22/17 08:19; Admin Dose 650 MG; Start 03/19/17 at 06:00 Acetaminophen (Tylenol Liquid) 1,000 mg Q4H PRN PO PAIN LEVEL 4-6/10 Last administered on 03/22/17 03:30; Admin Dose 1,000 MG; Start 03/19/17 at 06:00 Ascorbic Acid (Vitamin C) 500 mg TID GTB Last administered on 03/22/17 20:13; Admin Dose 500 MG; Start 03/19/17 at 09:00 Insulin Aspart (Novolog Insulin Pen) NOVOLOG *MODERATE* ALGORI... Q6 SC Last administered on 03/23/17 06:07; Admin Dose 2 UNIT; Start 03/19/17 at 06:00 Miscellaneous Information 1 ea NOTE XX ; Start 03/19/17 at 06:00 Glucose (Glutose) 15 gm Q15M PRN PO DECREASED GLUCOSE; Start 03/19/17 at 06:00 Glucose (Glutose) 22.5 gm Q15M PRN PO DECREASED GLUCOSE; Start 03/19/17 at 06: 00 Dextrose (D50w Syringe) 25 ml Q15M PRN IV DECREASED GLUCOSE; Start 03/19/17 at 06:00 Dextrose (D50w Syringe) 50 ml Q15M PRN IV DECREASED GLUCOSE; Start 03/19/17 at 06:00 Glucagon (Glucagen) 1 mg Q15M PRN IM DECREASED GLUCOSE; Start 03/19/17 at 06:00 Glucose (Glutose) 15 gm Q15M PRN BUCCAL DECREASED GLUCOSE; Start 03/19/17 at 06 :00 Levetiracetam (Keppra Liquid) 500 mg BID GTB Last administered on 03/22/17 20: 12; Admin Dose 500 MG; Start 03/19/17 at 09:00 Ferrous Sulfate (Feosol Liquid Cup) 300 mg BID GTB Last administered on 20:12; Admin Dose 300 MG; Start 03/19/17 at 09:00 Multivitamins/ Minerals (Theragran-M) 1 tab BID GTB Last administered on 20:17; Admin Dose 1 TAB; Start 03/19/17 at 09:00 Insulin Human NPH (Humulin N) 8 unit TID SC Last administered on 03/22/17 20: 12; Admin Dose 8 UNIT; Start 03/19/17 at 09:00 Miscellaneous Information (Pending Santyl Order For Wound Care) This patient mahmood... PRN PRN XX WOUND CARE; Start 03/19/17 at 06:00 Potassium Chloride (Potassium Chloride Pwd/Soln) 40 meq DAILY GTB Last administered on 03/22/17 08:44; Admin Dose 40 MEQ; Start 03/19/17 at 09:00 Sodium Biphosphate/ Sodium Phosphate (Fleet Enema) 133 ml DAILY PRN [place] CONSTIPATION; Start 03/19/17 at 06:30 Diltiazem HCl (Cardizem) 60 mg Q8 GTB Last administered on 03/23/17 05:45; Admin Dose 60 MG; Start 03/19/17 at 14:00 Insulin Glargine 24 unit 24 unit DAILY@20 SC Last administered on 03/22/17 20: 07; Admin Dose 24 UNIT; Start 03/21/17 at 20:00 Imipenem/ Cilastatin Sodium 100 ml @ 100 mls/hr Q6 IVPB Last administered on 05:14; Admin Dose 100 MLS/HR; Start 03/22/17 at 00:00 Sodium Chloride (NS) 1,000 ml @ 100 mls/hr Q10H IV Last administered on 17:08; Admin Dose 100 MLS/HR; Start 03/21/17 at 22:00 Metoprolol Tartrate (Lopressor) 5 mg Q6 PRN IV TACHYCARDIA Last administered on 03/23/17 02:00; Admin Dose 5 MG; Start 03/22/17 at 10:30 Morphine Sulfate 1 mg 1 mg Q4H PRN IV severe pain Last administered on 01:04; Admin Dose 1 MG; Start 03/22/17 at 12:00 Vancomycin HCl/ Sodium Chloride (Vancocin/NS) 150 ml @ 75 mls/hr Q12H IVPB Last administered on 03/23/17 06:32; Admin Dose 75 MLS/HR; Start 03/22/17 at 18 :00 Ondansetron HCl (Zofran Inj) 4 mg Q4H PRN IV NAUSEA AND/OR VOMITING Last administered on 03/23/17 05:10; Admin Dose 4 MG; Start 03/23/17 at 05:00 BENITO THOMAS MD Mar 23, 2017 09:07
--- NOTE | 2017-03-23 09:25 | CONS ---
Date/Time of Note Date/Time of Note DATE: 03/23/17 TIME: 09:24 Assessment/Plan Assessment/Plan Chief Complaint/Hosp Course 1. Probable hcap 2. Severe Sepsis 3. right hand swelling w/u in progress 4. multiple chronic medical problems: chizophrenia and bipolar disorder, hypertension, diabetes, dyslipidemia, dysphagia with G-tube placement and history of tonic-clonic seizures, thalassemia, urinary tract infection r: f/u little cx procalc lactic acid cont. vanco/imipenm monitor hand clinically consideration of hand mri based on clinical response Problems: Consultation Date/Type/Reason Admit Date/Time Mar 19, 2017 at 01:44 Type of Consultation: id Exam/Review of Systems Vital Signs Vitals Vital Signs Date Time Temp Pulse Resp B/P Pulse Ox O2 Delivery O2 Flow Rate FiO2 03/23/17 08:27 Simple Mask 10.0 03/23/17 08:00 98.2 108 27 102/59 96 Intake and Output 03/22/17 03/22/17 03/23/17 15:00 23:00 07:00 Intake Total 820 ml 1080 ml 710 ml Balance 820 ml 1080 ml 710 ml Results Result Diagram: 03/23/17 0507 03/23/17 0507 Results 24 hrs Laboratory Tests Test 03/22/17 11:41 03/22/17 12:56 03/22/17 13:45 03/22/17 17:29 Blood Gas Specimen Source Blood arterial Arterial Blood Date Drawn 03/22/2017 11:50:27 AM Arterial Blood pH (Temp corrected) 7.469 H Arterial Blood pCO2 (Temp correct) 37.1 Arterial Blood pO2 (Temp corrected) 101.0 H Arterial Blood HCO3 26.3 H Arterial Blood Base Excess 2.6 Arterial Blood Oxygen Saturation 97.5 Ramez Test ACCEPTAB Arterial Blood Gas Puncture Site Right Radial Arterial Blood Carboxyhemoglobin 0.3 Arterial Blood Methemoglobin 0.3 Blood Gas A-a O2 Differential 235.4 H Oxyhemoglobin Percent 96.9 Total Hemoglobin 8.5 L Blood Gas Temperature 37.0 Blood Gas Modality MASK - SIMPLE FiO2 53.0 Blood Gas Notified Whom JLD Blood Gas Notified Time 03/22/2017 12:34:00 PM Bedside Glucose 152 183 White Blood Count 18.4 H Red Blood Count 2.91 L Hemoglobin 8.9 L Hematocrit 28.7 L Mean Corpuscular Volume 98.6 Mean Corpuscular Hemoglobin 30.6 Mean Corpuscular Hemoglobin Concent 31.0 L Red Cell Distribution Width 14.5 Platelet Count 308 Mean Platelet Volume 11.1 H Neutrophils % 91.0 H Lymphocytes % 4.6 L Monocytes % 3.0 Eosinophils % 0.5 Basophils % 0.1 Nucleated Red Blood Cells % 0.0 Neutrophils # 16.7 H Lymphocytes # 0.9 Monocytes # 0.6 Eosinophils # 0.1 Basophils # 0.0 Nucleated Red Blood Cells # 0.0 Lactic Acid Level 1.6 Test 03/22/17 20:03 03/22/17 23:05 03/23/17 05:07 03/23/17 06:04 Bedside Glucose 211 253 H 146 White Blood Count 16.0 H Red Blood Count 2.73 L Hemoglobin 8.6 L Hematocrit 26.9 L Mean Corpuscular Volume 98.5 Mean Corpuscular Hemoglobin 31.5 Mean Corpuscular Hemoglobin Concent 32.0 Red Cell Distribution Width 14.7 H Platelet Count 336 Mean Platelet Volume 11.1 H Neutrophils % 85.6 H Lymphocytes % 7.6 L Monocytes % 2.6 Eosinophils % 3.4 Basophils % 0.1 Nucleated Red Blood Cells % 0.0 Neutrophils # 13.7 H Lymphocytes # 1.2 Monocytes # 0.4 Eosinophils # 0.6 H Basophils # 0.0 Nucleated Red Blood Cells # 0.0 Sodium Level 142 Potassium Level 4.0 Chloride Level 103 Carbon Dioxide Level 26 Anion Gap 17 H Blood Urea Nitrogen 29 H Creatinine 0.47 Glucose Level 150 Calcium Level 8.6 Vancomycin Level Trough 12.8 Medications Medications Current Medications Atorvastatin Calcium (Lipitor) 40 mg HS GTB Last administered on 03/22/17 20: 12; Admin Dose 40 MG; Start 03/19/17 at 21:00 Bisacodyl (Dulcolax Supp) 10 mg DAILY PRN [place] PRN; Start 03/19/17 at 05:00 Docusate Sodium (Colace) 200 mg DAILY PO Last administered on 03/22/17 08:44; Admin Dose 200 MG; Start 03/19/17 at 09:00 Enoxaparin Sodium (Lovenox) 40 mg DAILY SC Last administered on 03/22/17 08:42 ; Admin Dose 40 MG; Start 03/19/17 at 09:00 Furosemide (Lasix) 20 mg DAILY@06 GTB Last administered on 03/23/17 05:46; Admin Dose 20 MG; Start 03/19/17 at 06:00 Magnesium Hydroxide (Milk Of Mag) 30 ml QHS GTB Last administered on 03/22/17 20:12; Admin Dose 30 ML; Start 03/19/17 at 21:00 Ondansetron HCl (Zofran Tab) 4 mg Q6H PRN PO NAUSEA AND/OR VOMITING Last administered on 03/22/17 06:56; Admin Dose 4 MG; Start 03/19/17 at 05:00 Senna (Senokot) 2 tab QHS GTB Last administered on 03/22/17 20:17; Admin Dose 2 TAB; Start 03/19/17 at 21:00 Tramadol HCl (Ultram) 50 mg BID GTB Last administered on 03/22/17 20:13; Admin Dose 50 MG; Start 03/19/17 at 09:00 Zinc Sulfate (Zinc Sulfate) 220 mg DAILY GTB Last administered on 03/22/17 08: 44; Admin Dose 220 MG; Start 03/19/17 at 09:00 Acetaminophen (Tylenol Liquid) 650 mg Q4H PRN GTB MILD PAIN LEVEL 1-3 Last administered on 03/22/17 08:19; Admin Dose 650 MG; Start 03/19/17 at 06:00 Acetaminophen (Tylenol Liquid) 1,000 mg Q4H PRN PO PAIN LEVEL 4-6/10 Last administered on 03/22/17 03:30; Admin Dose 1,000 MG; Start 03/19/17 at 06:00 Ascorbic Acid (Vitamin C) 500 mg TID GTB Last administered on 03/22/17 20:13; Admin Dose 500 MG; Start 03/19/17 at 09:00 Insulin Aspart (Novolog Insulin Pen) NOVOLOG *MODERATE* ALGORI... Q6 SC Last administered on 03/23/17 06:07; Admin Dose 2 UNIT; Start 03/19/17 at 06:00 Miscellaneous Information 1 ea NOTE XX ; Start 03/19/17 at 06:00 Glucose (Glutose) 15 gm Q15M PRN PO DECREASED GLUCOSE; Start 03/19/17 at 06:00 Glucose (Glutose) 22.5 gm Q15M PRN PO DECREASED GLUCOSE; Start 03/19/17 at 06: 00 Dextrose (D50w Syringe) 25 ml Q15M PRN IV DECREASED GLUCOSE; Start 03/19/17 at 06:00 Dextrose (D50w Syringe) 50 ml Q15M PRN IV DECREASED GLUCOSE; Start 03/19/17 at 06:00 Glucagon (Glucagen) 1 mg Q15M PRN IM DECREASED GLUCOSE; Start 03/19/17 at 06:00 Glucose (Glutose) 15 gm Q15M PRN BUCCAL DECREASED GLUCOSE; Start 03/19/17 at 06 :00 Levetiracetam (Keppra Liquid) 500 mg BID GTB Last administered on 03/22/17 20: 12; Admin Dose 500 MG; Start 03/19/17 at 09:00 Ferrous Sulfate (Feosol Liquid Cup) 300 mg BID GTB Last administered on 20:12; Admin Dose 300 MG; Start 03/19/17 at 09:00 Multivitamins/ Minerals (Theragran-M) 1 tab BID GTB Last administered on 20:17; Admin Dose 1 TAB; Start 03/19/17 at 09:00 Insulin Human NPH (Humulin N) 8 unit TID SC Last administered on 03/22/17 20: 12; Admin Dose 8 UNIT; Start 03/19/17 at 09:00 Miscellaneous Information (Pending Santyl Order For Wound Care) This patient mahmood... PRN PRN XX WOUND CARE; Start 03/19/17 at 06:00 Potassium Chloride (Potassium Chloride Pwd/Soln) 40 meq DAILY GTB Last administered on 03/22/17 08:44; Admin Dose 40 MEQ; Start 03/19/17 at 09:00 Sodium Biphosphate/ Sodium Phosphate (Fleet Enema) 133 ml DAILY PRN [place] CONSTIPATION; Start 03/19/17 at 06:30 Diltiazem HCl (Cardizem) 60 mg Q8 GTB Last administered on 03/23/17 05:45; Admin Dose 60 MG; Start 03/19/17 at 14:00 Insulin Glargine 24 unit 24 unit DAILY@20 SC Last administered on 03/22/17 20: 07; Admin Dose 24 UNIT; Start 03/21/17 at 20:00 Imipenem/ Cilastatin Sodium 100 ml @ 100 mls/hr Q6 IVPB Last administered on 05:14; Admin Dose 100 MLS/HR; Start 03/22/17 at 00:00 Sodium Chloride (NS) 1,000 ml @ 100 mls/hr Q10H IV Last administered on 17:08; Admin Dose 100 MLS/HR; Start 03/21/17 at 22:00 Metoprolol Tartrate (Lopressor) 5 mg Q6 PRN IV TACHYCARDIA Last administered on 03/23/17 02:00; Admin Dose 5 MG; Start 03/22/17 at 10:30 Morphine Sulfate 1 mg 1 mg Q4H PRN IV severe pain Last administered on 01:04; Admin Dose 1 MG; Start 03/22/17 at 12:00 Vancomycin HCl/ Sodium Chloride (Vancocin/NS) 150 ml @ 75 mls/hr Q12H IVPB Last administered on 03/23/17 06:32; Admin Dose 75 MLS/HR; Start 03/22/17 at 18 :00 Ondansetron HCl (Zofran Inj) 4 mg Q4H PRN IV NAUSEA AND/OR VOMITING Last administered on 03/23/17 05:10; Admin Dose 4 MG; Start 03/23/17 at 05:00 BENITO HTOMAS MD Mar 23, 2017 09:25
[2017-03-23] MEDS: FERROUS SULFATE 60 MG/ML 5ML CUP GTB SCH (09:42)
[2017-03-23] MEDS: LEVETIRACETAM (100 MG/ML) 5ML CUP GTB SCH ×2 (09:45→20:07)
[2017-03-23] MEDS: traMADol 50 MG TAB GTB SCH ×2 (09:47→21:17)
[2017-03-23] MEDS: ASCORBIC ACID 500 MG TAB GTB SCH ×3 (09:47→20:07)
[2017-03-23] MEDS: ZINC SULFATE 220 MG CAP GTB SCH (09:48)
[2017-03-23] MEDS: POTASSIUM CHLORIDE 20 MEQ POWDER FOR ORAL SOLN GTB SCH (09:52)
[2017-03-23] MEDS: ENOXAPARIN 40 MG/0.4 ML SYG SC SCH (10:01)
[2017-03-23] MEDS: NPH, HUMAN INSULIN ISOPHANE 3ML VIAL SC SCH ×3 (10:04→21:16)
--- NOTE | 2017-03-23 10:28 | PN ---
Date/Time of Note Date/Time of Note DATE: 03/23/17 TIME: 10:23 Assessment/Plan VTE Prophylaxis VTE Prophylaxis Intervention: LMWH Lines/Catheters IV Catheter Type (from [facility]): [facility] Urinary Cath still in place: No Assessment/Plan Assessment/Plan - Possible sepsis with leukocytosis tachycardia. Patient was transferred to telemetry. Cardiology consult requested. - Possible HCAP, continue broad-spectrum antibiotics, Dr. Pitt is following in infection disease consultation. Dr. Roche is asked to see patients in pulmonology consultation. Continue bronchodilators and oxygen supplementation. - Sinus tachycardia, most likely secondary to dehydration. Continue IV fluids. - Left hand swelling. Continue broad-spectrum antibiotics for possible cellulitis. - Seizure disorder. Continue Keppra. - Dysphagia with percutaneous endoscopic gastrostomy. Continue G-tube feeding , aspiration precautions. - Diabetes mellitus type 2. Continue NPH. - Dyslipidemia. Continue statins. - Hypertension. The patient is currently normotensive. - Schizophrenia and bipolar disorder. - no meds notes - will get group social worker consult-for tele psych- fu. Continue Lovenox for deep venous thrombosis prophylaxis and Pepcid for peptic ulcer disease prophylaxis. Further recommendations based on clinical course. Total critical care spent is 30 mins- Plan of care discussed with Dr. Aly/staff/labs/meds review. Subjective 24 Hr Interval Summary Constitutional: requiring IVF, requiring O2 Eyes: no complaints ENT: no complaints Respiratory: shortness of breath Cardiovascular: no complaints Gastrointestinal: vomiting Exam/Review of Systems Vital Signs Vitals Vital Signs Date Time Temp Pulse Resp B/P Pulse Ox O2 Delivery O2 Flow Rate FiO2 03/23/17 08:27 Simple Mask 10.0 03/23/17 08:00 98.2 108 27 102/59 96 Intake and Output 03/22/17 03/22/17 03/23/17 15:00 23:00 07:00 Intake Total 820 ml 1080 ml 710 ml Balance 820 ml 1080 ml 710 ml Exam Constitutional: alert, well developed Psych: no complaints Eyes: nl sclera ENMT: nl external ears & nose Respiratory: diminished breath sounds, other (tachypnea) Cardiovascular: nl pulses Gastrointestinal: non-tender, other (PEG tube intact), soft Extremities: edema (left hand sec to cellulitis) Neurological: other (alert/awake. confused,) Lymph: nontender Results Result Diagram: 03/23/17 9465 03/23/17 0507 Results 24 hrs Laboratory Tests Test 03/22/17 11:41 03/22/17 12:56 03/22/17 13:45 03/22/17 17:29 Blood Gas Specimen Source Blood arterial Arterial Blood Date Drawn 03/22/2017 11:50:27 AM Arterial Blood pH (Temp corrected) 7.469 H Arterial Blood pCO2 (Temp correct) 37.1 Arterial Blood pO2 (Temp corrected) 101.0 H Arterial Blood HCO3 26.3 H Arterial Blood Base Excess 2.6 Arterial Blood Oxygen Saturation 97.5 Ramez Test ACCEPTAB Arterial Blood Gas Puncture Site Right Radial Arterial Blood Carboxyhemoglobin 0.3 Arterial Blood Methemoglobin 0.3 Blood Gas A-a O2 Differential 235.4 H Oxyhemoglobin Percent 96.9 Total Hemoglobin 8.5 L Blood Gas Temperature 37.0 Blood Gas Modality MASK - SIMPLE FiO2 53.0 Blood Gas Notified Whom JLD Blood Gas Notified Time 03/22/2017 12:34:00 PM Bedside Glucose 152 183 White Blood Count 18.4 H Red Blood Count 2.91 L Hemoglobin 8.9 L Hematocrit 28.7 L Mean Corpuscular Volume 98.6 Mean Corpuscular Hemoglobin 30.6 Mean Corpuscular Hemoglobin Concent 31.0 L Red Cell Distribution Width 14.5 Platelet Count 308 Mean Platelet Volume 11.1 H Neutrophils % 91.0 H Lymphocytes % 4.6 L Monocytes % 3.0 Eosinophils % 0.5 Basophils % 0.1 Nucleated Red Blood Cells % 0.0 Neutrophils # 16.7 H Lymphocytes # 0.9 Monocytes # 0.6 Eosinophils # 0.1 Basophils # 0.0 Nucleated Red Blood Cells # 0.0 Lactic Acid Level 1.6 Test 03/22/17 20:03 03/22/17 23:05 03/23/17 05:07 03/23/17 06:04 Bedside Glucose 211 253 H 146 White Blood Count 16.0 H Red Blood Count 2.73 L Hemoglobin 8.6 L Hematocrit 26.9 L Mean Corpuscular Volume 98.5 Mean Corpuscular Hemoglobin 31.5 Mean Corpuscular Hemoglobin Concent 32.0 Red Cell Distribution Width 14.7 H Platelet Count 336 Mean Platelet Volume 11.1 H Neutrophils % 85.6 H Lymphocytes % 7.6 L Monocytes % 2.6 Eosinophils % 3.4 Basophils % 0.1 Nucleated Red Blood Cells % 0.0 Neutrophils # 13.7 H Lymphocytes # 1.2 Monocytes # 0.4 Eosinophils # 0.6 H Basophils # 0.0 Nucleated Red Blood Cells # 0.0 Sodium Level 142 Potassium Level 4.0 Chloride Level 103 Carbon Dioxide Level 26 Anion Gap 17 H Blood Urea Nitrogen 29 H Creatinine 0.47 Glucose Level 150 Calcium Level 8.6 Vancomycin Level Trough 12.8 Medications Medications Current Medications Atorvastatin Calcium (Lipitor) 40 mg HS GTB Last administered on 03/22/17 20: 12; Admin Dose 40 MG; Start 03/19/17 at 21:00 Bisacodyl (Dulcolax Supp) 10 mg DAILY PRN [place] PRN; Start 03/19/17 at 05:00 Docusate Sodium (Colace) 200 mg DAILY PO Last administered on 03/22/17 08:44; Admin Dose 200 MG; Start 03/19/17 at 09:00 Enoxaparin Sodium (Lovenox) 40 mg DAILY SC Last administered on 03/23/17 10:01 ; Admin Dose 40 MG; Start 03/19/17 at 09:00 Furosemide (Lasix) 20 mg DAILY@06 GTB Last administered on 03/23/17 05:46; Admin Dose 20 MG; Start 03/19/17 at 06:00 Magnesium Hydroxide (Milk Of Mag) 30 ml QHS GTB Last administered on 03/22/17 20:12; Admin Dose 30 ML; Start 03/19/17 at 21:00 Ondansetron HCl (Zofran Tab) 4 mg Q6H PRN PO NAUSEA AND/OR VOMITING Last administered on 03/22/17 06:56; Admin Dose 4 MG; Start 03/19/17 at 05:00 Senna (Senokot) 2 tab QHS GTB Last administered on 03/22/17 20:17; Admin Dose 2 TAB; Start 03/19/17 at 21:00 Tramadol HCl (Ultram) 50 mg BID GTB Last administered on 03/23/17 09:47; Admin Dose 50 MG; Start 03/19/17 at 09:00 Zinc Sulfate (Zinc Sulfate) 220 mg DAILY GTB Last administered on 03/23/17 09: 48; Admin Dose 220 MG; Start 03/19/17 at 09:00 Acetaminophen (Tylenol Liquid) 650 mg Q4H PRN GTB MILD PAIN LEVEL 1-3 Last administered on 03/22/17 08:19; Admin Dose 650 MG; Start 03/19/17 at 06:00 Acetaminophen (Tylenol Liquid) 1,000 mg Q4H PRN PO PAIN LEVEL 4-6/10 Last administered on 03/22/17 03:30; Admin Dose 1,000 MG; Start 03/19/17 at 06:00 Ascorbic Acid (Vitamin C) 500 mg TID GTB Last administered on 03/23/17 09:47; Admin Dose 500 MG; Start 03/19/17 at 09:00 Insulin Aspart (Novolog Insulin Pen) NOVOLOG *MODERATE* ALGORI... Q6 SC Last administered on 03/23/17 06:07; Admin Dose 2 UNIT; Start 03/19/17 at 06:00 Miscellaneous Information 1 ea NOTE XX ; Start 03/19/17 at 06:00 Glucose (Glutose) 15 gm Q15M PRN PO DECREASED GLUCOSE; Start 03/19/17 at 06:00 Glucose (Glutose) 22.5 gm Q15M PRN PO DECREASED GLUCOSE; Start 03/19/17 at 06: 00 Dextrose (D50w Syringe) 25 ml Q15M PRN IV DECREASED GLUCOSE; Start 03/19/17 at 06:00 Dextrose (D50w Syringe) 50 ml Q15M PRN IV DECREASED GLUCOSE; Start 03/19/17 at 06:00 Glucagon (Glucagen) 1 mg Q15M PRN IM DECREASED GLUCOSE; Start 03/19/17 at 06:00 Glucose (Glutose) 15 gm Q15M PRN BUCCAL DECREASED GLUCOSE; Start 03/19/17 at 06 :00 Levetiracetam (Keppra Liquid) 500 mg BID GTB Last administered on 03/23/17 09: 45; Admin Dose 500 MG; Start 03/19/17 at 09:00 Ferrous Sulfate (Feosol Liquid Cup) 300 mg BID GTB Last administered on 09:42; Admin Dose 300 MG; Start 03/19/17 at 09:00 Multivitamins/ Minerals (Theragran-M) 1 tab BID GTB Last administered on 20:17; Admin Dose 1 TAB; Start 03/19/17 at 09:00 Insulin Human NPH (Humulin N) 8 unit TID SC Last administered on 03/23/17 10: 04; Admin Dose 8 UNIT; Start 03/19/17 at 09:00 Miscellaneous Information (Pending Santyl Order For Wound Care) This patient mahmood... PRN PRN XX WOUND CARE; Start 03/19/17 at 06:00 Potassium Chloride (Potassium Chloride Pwd/Soln) 40 meq DAILY GTB Last administered on 03/23/17 09:52; Admin Dose 40 MEQ; Start 03/19/17 at 09:00 Sodium Biphosphate/ Sodium Phosphate (Fleet Enema) 133 ml DAILY PRN [place] CONSTIPATION; Start 03/19/17 at 06:30 Diltiazem HCl (Cardizem) 60 mg Q8 GTB Last administered on 03/23/17 05:45; Admin Dose 60 MG; Start 03/19/17 at 14:00 Insulin Glargine 24 unit 24 unit DAILY@20 SC Last administered on 03/22/17 20: 07; Admin Dose 24 UNIT; Start 03/21/17 at 20:00 Imipenem/ Cilastatin Sodium 100 ml @ 100 mls/hr Q6 IVPB Last administered on 05:14; Admin Dose 100 MLS/HR; Start 03/22/17 at 00:00 Sodium Chloride (NS) 1,000 ml @ 100 mls/hr Q10H IV Last administered on 17:08; Admin Dose 100 MLS/HR; Start 03/21/17 at 22:00 Metoprolol Tartrate (Lopressor) 5 mg Q6 PRN IV TACHYCARDIA Last administered on 03/23/17 09:31; Admin Dose 5 MG; Start 03/22/17 at 10:30 Morphine Sulfate 1 mg 1 mg Q4H PRN IV severe pain Last administered on 01:04; Admin Dose 1 MG; Start 03/22/17 at 12:00 Vancomycin HCl/ Sodium Chloride (Vancocin/NS) 150 ml @ 75 mls/hr Q12H IVPB Last administered on 03/23/17 06:32; Admin Dose 75 MLS/HR; Start 03/22/17 at 18 :00 Ondansetron HCl (Zofran Inj) 4 mg Q4H PRN IV NAUSEA AND/OR VOMITING Last administered on 03/23/17t 05:10; Admin Dose 4 MG; Start 03/23/17 at 05:00 MICHAEL COLINDRES Mar 23, 2017 10:28
--- NOTE | 2017-03-23 11:08 | PN ---
Date/Time of Note Date/Time of Note DATE: 03/23/17 TIME: 11:07 Assessment/Plan VTE Prophylaxis VTE Prophylaxis Intervention: SCD's Lines/Catheters IV C[facility]ter Type [facility]from [facility] Saline Lock Urinary Cath still in place: No Assessment/Plan Assessment/Plan Sepsis Sinus tachycardia History of paroxysmal atrial tachycardia Preserved ejection fraction Psychiatric disorder Seizure disorder -Telemetry reviewed and patient was sinus tachycardia in the teens. Tachycardia likely manifestation of sepsis and hypovolemia as well as anemia. Would treat underlying cause. No need for AV desiree blocking agents at the current time. Patient does have a history of paroxysmal atrial tachycardia on previous admission. Continue IV fluids with close monitoring of respiratory status, watching for decompensated congestive heart failure. Would continue on telemetry monitoring. Subjective 24 Hr Interval Summary Free Text/Dictation the aptient with no change Exam/Review of Systems Vital Signs Vitals Vital Signs Date Time Temp Pulse Resp B/P Pulse Ox O2 Delivery O2 Flow Rate FiO2 03/23/17 10:26 118 30 94 03/23/17 10:25 15.0 03/23/17 09:50 Partial Rebreather Mask 03/23/17 08:00 98.2 102/59 Intake and Output 03/22/17 03/22/17 03/23/17 15:00 23:00 07:00 Intake Total 820 ml 1080 ml 710 ml Balance 820 ml 1080 ml 710 ml Results Result Diagram: 03/23/17 0507 03/23/17 0507 Results 24 hrs Laboratory Tests Test 03/22/17 11:41 03/22/17 12:56 03/22/17 13:45 03/22/17 17:29 Blood Gas Specimen Source Blood arterial Arterial Blood Date Drawn 03/22/2017 11:50:27 AM Arterial Blood pH (Temp corrected) 7.469 H Arterial Blood pCO2 (Temp correct) 37.1 Arterial Blood pO2 (Temp corrected) 101.0 H Arterial Blood HCO3 26.3 H Arterial Blood Base Excess 2.6 Arterial Blood Oxygen Saturation 97.5 Ramez Test ACCEPTAB Arterial Blood Gas Puncture Site Right Radial Arterial Blood Carboxyhemoglobin 0.3 Arterial Blood Methemoglobin 0.3 Blood Gas A-a O2 Differential 235.4 H Oxyhemoglobin Percent 96.9 Total Hemoglobin 8.5 L Blood Gas Temperature 37.0 Blood Gas Modality MASK - SIMPLE FiO2 53.0 Blood Gas Notified Whom JLD Blood Gas Notified Time 03/22/2017 12:34:00 PM Bedside Glucose 152 183 White Blood Count 18.4 H Red Blood Count 2.91 L Hemoglobin 8.9 L Hematocrit 28.7 L Mean Corpuscular Volume 98.6 Mean Corpuscular Hemoglobin 30.6 Mean Corpuscular Hemoglobin Concent 31.0 L Red Cell Distribution Width 14.5 Platelet Count 308 Mean Platelet Volume 11.1 H Neutrophils % 91.0 H Lymphocytes % 4.6 L Monocytes % 3.0 Eosinophils % 0.5 Basophils % 0.1 Nucleated Red Blood Cells % 0.0 Neutrophils # 16.7 H Lymphocytes # 0.9 Monocytes # 0.6 Eosinophils # 0.1 Basophils # 0.0 Nucleated Red Blood Cells # 0.0 Lactic Acid Level 1.6 Test 03/22/17 20:03 03/22/17 23:05 03/23/17 05:07 03/23/17 06:04 Bedside Glucose 211 253 H 146 White Blood Count 16.0 H Red Blood Count 2.73 L Hemoglobin 8.6 L Hematocrit 26.9 L Mean Corpuscular Volume 98.5 Mean Corpuscular Hemoglobin 31.5 Mean Corpuscular Hemoglobin Concent 32.0 Red Cell Distribution Width 14.7 H Platelet Count 336 Mean Platelet Volume 11.1 H Neutrophils % 85.6 H Lymphocytes % 7.6 L Monocytes % 2.6 Eosinophils % 3.4 Basophils % 0.1 Nucleated Red Blood Cells % 0.0 Neutrophils # 13.7 H Lymphocytes # 1.2 Monocytes # 0.4 Eosinophils # 0.6 H Basophils # 0.0 Nucleated Red Blood Cells # 0.0 Sodium Level 142 Potassium Level 4.0 Chloride Level 103 Carbon Dioxide Level 26 Anion Gap 17 H Blood Urea Nitrogen 29 H Creatinine 0.47 Glucose Level 150 Calcium Level 8.6 Vancomycin Level Trough 12.8 Medications Medications Current Medications Atorvastatin Calcium (Lipitor) 40 mg HS GTB Last administered on 03/22/17 20: 12; Admin Dose 40 MG; Start 03/19/17 at 21:00 Bisacodyl (Dulcolax Supp) 10 mg DAILY PRN [place] PRN; Start 03/19/17 at 05:00 Docusate Sodium (Colace) 200 mg DAILY PO Last administered on 03/22/17 08:44; Admin Dose 200 MG; Start 03/19/17 at 09:00 Enoxaparin Sodium (Lovenox) 40 mg DAILY SC Last administered on 03/23/17 10:01 ; Admin Dose 40 MG; Start 03/19/17 at 09:00 Furosemide (Lasix) 20 mg DAILY@06 GTB Last administered on 03/23/17 05:46; Admin Dose 20 MG; Start 03/19/17 at 06:00 Magnesium Hydroxide (Milk Of Mag) 30 ml QHS GTB Last administered on 03/22/17 20:12; Admin Dose 30 ML; Start 03/19/17 at 21:00 Ondansetron HCl (Zofran Tab) 4 mg Q6H PRN PO NAUSEA AND/OR VOMITING Last administered on 03/22/17 06:56; Admin Dose 4 MG; Start 03/19/17 at 05:00 Senna (Senokot) 2 tab QHS GTB Last administered on 03/22/17 20:17; Admin Dose 2 TAB; Start 03/19/17 at 21:00 Tramadol HCl (Ultram) 50 mg BID GTB Last administered on 03/23/17 09:47; Admin Dose 50 MG; Start 03/19/17 at 09:00 Zinc Sulfate (Zinc Sulfate) 220 mg DAILY GTB Last administered on 03/23/17 09: 48; Admin Dose 220 MG; Start 03/19/17 at 09:00 Acetaminophen (Tylenol Liquid) 650 mg Q4H PRN GTB MILD PAIN LEVEL 1-3 Last administered on 03/22/17 08:19; Admin Dose 650 MG; Start 03/19/17 at 06:00 Acetaminophen (Tylenol Liquid) 1,000 mg Q4H PRN PO PAIN LEVEL 4-6/10 Last administered on 03/22/17 03:30; Admin Dose 1,000 MG; Start 03/19/17 at 06:00 Ascorbic Acid (Vitamin C) 500 mg TID GTB Last administered on 03/23/17 09:47; Admin Dose 500 MG; Start 03/19/17 at 09:00 Insulin Aspart (Novolog Insulin Pen) NOVOLOG *MODERATE* ALGORI... Q6 SC Last administered on 03/23/17 06:07; Admin Dose 2 UNIT; Start 03/19/17 at 06:00 Miscellaneous Information 1 ea NOTE XX ; Start 03/19/17 at 06:00 Glucose (Glutose) 15 gm Q15M PRN PO DECREASED GLUCOSE; Start 03/19/17 at 06:00 Glucose (Glutose) 22.5 gm Q15M PRN PO DECREASED GLUCOSE; Start 03/19/17 at 06: 00 Dextrose (D50w Syringe) 25 ml Q15M PRN IV DECREASED GLUCOSE; Start 03/19/17 at 06:00 Dextrose (D50w Syringe) 50 ml Q15M PRN IV DECREASED GLUCOSE; Start 03/19/17 at 06:00 Glucagon (Glucagen) 1 mg Q15M PRN IM DECREASED GLUCOSE; Start 03/19/17 at 06:00 Glucose (Glutose) 15 gm Q15M PRN BUCCAL DECREASED GLUCOSE; Start 03/19/17 at 06 :00 Levetiracetam (Keppra Liquid) 500 mg BID GTB Last administered on 03/23/17 09: 45; Admin Dose 500 MG; Start 03/19/17 at 09:00 Ferrous Sulfate (Feosol Liquid Cup) 300 mg BID GTB Last administered on 09:42; Admin Dose 300 MG; Start 03/19/17 at 09:00 Multivitamins/ Minerals (Theragran-M) 1 tab BID GTB Last administered on 20:17; Admin Dose 1 TAB; Start 03/19/17 at 09:00 Insulin Human NPH (Humulin N) 8 unit TID SC Last administered on 03/23/17 10: 04; Admin Dose 8 UNIT; Start 03/19/17 at 09:00 Miscellaneous Information (Pending [facility] Order For Wound Care) This patient mahmood... PRN PRN XX WOUND CARE; Start 03/19/17 at 06:00 Potassium Chloride (Potassium Chloride Pwd/Soln) 40 meq DAILY GTB Last administered on 03/23/17 09:52; Admin Dose 40 MEQ; Start 03/19/17 at 09:00 Sodium Biphosphate/ Sodium Phosphate (Fleet Enema) 133 ml DAILY PRN NC CONSTIPATION; Start 03/19/17 at 06:30 Diltiazem HCl (Cardizem) 60 mg Q8 GTB Last administered on 03/23/17 05:45; Admin Dose 60 MG; Start 03/19/17 at 14:00 Insulin Glargine 24 unit 24 unit DAILY@20 SC Last administered on 03/22/17 20: 07; Admin Dose 24 UNIT; Start 03/21/17 at 20:00 Imipenem/ Cilastatin Sodium 100 ml @ 100 mls/hr Q6 IVPB Last administered on 05:14; Admin Dose 100 MLS/HR; Start 03/22/17 at 00:00 Sodium Chloride (NS) 1,000 ml @ 100 mls/hr Q10H IV Last administered on 17:08; Admin Dose 100 MLS/HR; Start 03/21/17 at 22:00 Metoprolol Tartrate (Lopressor) 5 mg Q6 PRN IV TACHYCARDIA Last administered on 03/23/17 09:31; Admin Dose 5 MG; Start 03/22/17 at 10:30 Morphine Sulfate 1 mg 1 mg Q4H PRN IV severe pain Last administered on 01:04; Admin Dose 1 MG; Start 03/22/17 at 12:00 Vancomycin HCl/ Sodium Chloride (Vancocin/NS) 150 ml @ 75 mls/hr Q12H IVPB Last administered on 03/23/17 06:32; Admin Dose 75 MLS/HR; Start 03/22/17 at 18 :00 Ondansetron HCl (Zofran Inj) 4 mg Q4H PRN IV NAUSEA AND/OR VOMITING Last administered on 03/23/17 05:10; Admin Dose 4 MG; Start 03/23/17 at 05:00 TAMARA JUNIOR MD Mar 23, 2017 11:08
[2017-03-23 11:30] LABS: ADD SCAN DIFF NO
[2017-03-23 11:33] LABS: BASOPHILS % 0.1 % (0.0-2.0); EOSINOPHILS # 0.4 10^3/ul (0.0-0.5); EOSINOPHILS % 2.8 % (0.0-7.0); HEMATOCRIT 27.5 % (37.0-47.0); HEMOGLOBIN 8.4 g/dl (12.0-16.0); LYMPHOCYTES # 1.3 10^3/ul (0.8-2.9); LYMPHOCYTES % 8.6 % (15.0-51.0); MEAN CORPUSCULAR HGB CONC 30.5 g/dl (32.0-37.0); MEAN CORPUSCULAR VOLUME 98.2 fl (82.0-101.0); MEAN PLATELET VOLUME 11.4 fl (7.4-10.4); MONOCYTE # 0.4 10^3/ul (0.3-0.9); MONOCYTES % 2.5 % (0.0-11.0); NEUTROPHIL # 13.1 10^3/ul (1.6-7.5); NEUTROPHILS % 85.4 % (39.0-77.0); PLATELET COUNT 341 10^3/UL (140-415); RED CELL DISTRIBUTION WIDTH 14.9 % (11.5-14.5); WHITE BLOOD COUNT 15.3 10^3/ul (4.8-10.8)
--- NOTE | 2017-03-23 11:39 | CONS ---
Date/Time of Note Date/Time of Note DATE: 03/23/17 TIME: 11:19 Assessment/Plan Assessment/Plan Chief Complaint/Hosp Course IMPRESSION: 1. nausea with vomiting: KUB only showed possible constipation. 2. Possible sepsis with leukocytosis tachycardia. 3. Possible HCAP 4. Sinus tachycardia, most likely secondary to dehydration. 5. Left arm/hand swelling. 6. Seizure disorder. 7. Dysphagia with percutaneous endoscopic gastrostomy. 8. Iron deficiency anemia RECOMMENDATION 1. change pepcid to protonix iv bid in case n/v due to PUD, gastritis, esophagitis 2. change bowel regiman to miralax daily 3. anti-emetics 4. repeat KUB tomorrow 5. hold tube feed for now but ok for meds 6. put GT to low intermittent suctioning 7. stop GT iron as it can be constipating. will recheck iron panel and replete by IV if low 8. change IVF to D5 LR with 20 mEQ KCL so pt don't need GT potassium to minimize constipation and nausea (KCL can cause nausea) Problems: Consultation Date/Type/Reason Admit Date/Time Mar 19, 2017 at 01:44 Type of Consultation: GI Reason for Consultation nausea and vomiting Hx of Present Illness 56-year-old female with history of schizophrenia and bipolar disorder, hypertension, diabetes, dyslipidemia, dysphagia with G-tube placement and history of tonic-clonic seizures and a history of sepsis and urinary tract infection. She was admitted with tachycardia, possible sepsis. Patient with heart rates in the 140s and transferred to the ICU. No chest pain, palpitations , dizziness. She does complain of intermittent shortness of breath. She denies any fevers but does complain of occasional abdominal pain. She has nausea and vomiting. KUB showed stool in descending colon otherwise normal without ileus or sbo. All point ROS administered, pertinent positives and negatives in HPI otherwise negative. Constitutional: requiring IVF, requiring O2 Eyes: no complaints ENT: no complaints Respiratory: shortness of breath Cardiovascular: no complaints Gastrointestinal: vomiting Psychological: no complaints Past Medical History Medical History: coronary artery disease, GERD, high cholesterol, hypertension , other (dysphagia) Past Surgical History Past Surgical Hx: endoscopy Family History Significant Family History: no pertinent family hx Social History Alcohol Use: none Smoking Status: Never smoker Drug Use: none Exam/Review of Systems Vital Signs Vitals Vital Signs Date Time Temp Pulse Resp B/P Pulse Ox O2 Delivery O2 Flow Rate FiO2 03/23/17 10:26 118 30 94 03/23/17 10:25 15.0 03/23/17 09:50 Partial Rebreather Mask 03/23/17 08:00 98.2 102/59 Intake and Output 03/22/17 03/22/17 03/23/17 15:00 23:00 07:00 Intake Total 820 ml 1080 ml 710 ml Balance 820 ml 1080 ml 710 ml Exam Constitutional: alert, oriented, well developed Psych: nl mood/affect, no complaints Head: atraumatic, normocephalic Eyes: EOMI, nl conjunctiva, nl lids, nl sclera ENMT: mucosa pink and moist, nl external ears & nose, nl lips & teeth, nl nasal mucosa & septum Neck: non-tender, supple Respiratory: clear to auscultation, normal air movement Cardiovascular: nl pulses, regular rate and rhythm Gastrointestinal: bowel sounds, non-tender, other (GT c/d/i), soft Extremities: other (swelling of left arm, getting doppler to r/o dvt) Neurological: nl speech, nl strength Results Result Diagram: 03/23/17 0507 03/23/17 0507 Results 24 hrs Laboratory Tests Test 03/22/17 11:41 03/22/17 12:56 03/22/17 13:45 03/22/17 17:29 Blood Gas Specimen Source Blood arterial Arterial Blood Date Drawn 03/22/2017 11:50:27 AM Arterial Blood pH (Temp corrected) 7.469 H Arterial Blood pCO2 (Temp correct) 37.1 Arterial Blood pO2 (Temp corrected) 101.0 H Arterial Blood HCO3 26.3 H Arterial Blood Base Excess 2.6 Arterial Blood Oxygen Saturation 97.5 Ramez Test ACCEPTAB Arterial Blood Gas Puncture Site Right Radial Arterial Blood Carboxyhemoglobin 0.3 Arterial Blood Methemoglobin 0.3 Blood Gas A-a O2 Differential 235.4 H Oxyhemoglobin Percent 96.9 Total Hemoglobin 8.5 L Blood Gas Temperature 37.0 Blood Gas Modality MASK - SIMPLE FiO2 53.0 Blood Gas Notified Whom ELSYD Blood Gas Notified Time 03/22/2017 12:34:00 PM Bedside Glucose 152 183 White Blood Count 18.4 H Red Blood Count 2.91 L Hemoglobin 8.9 L Hematocrit 28.7 L Mean Corpuscular Volume 98.6 Mean Corpuscular Hemoglobin 30.6 Mean Corpuscular Hemoglobin Concent 31.0 L Red Cell Distribution Width 14.5 Platelet Count 308 Mean Platelet Volume 11.1 H Neutrophils % 91.0 H Lymphocytes % 4.6 L Monocytes % 3.0 Eosinophils % 0.5 Basophils % 0.1 Nucleated Red Blood Cells % 0.0 Neutrophils # 16.7 H Lymphocytes # 0.9 Monocytes # 0.6 Eosinophils # 0.1 Basophils # 0.0 Nucleated Red Blood Cells # 0.0 Lactic Acid Level 1.6 Test 03/22/17 20:03 03/22/17 23:05 03/23/17 05:07 03/23/17 06:04 Bedside Glucose 211 253 H 146 White Blood Count 16.0 H Red Blood Count 2.73 L Hemoglobin 8.6 L Hematocrit 26.9 L Mean Corpuscular Volume 98.5 Mean Corpuscular Hemoglobin 31.5 Mean Corpuscular Hemoglobin Concent 32.0 Red Cell Distribution Width 14.7 H Platelet Count 336 Mean Platelet Volume 11.1 H Neutrophils % 85.6 H Lymphocytes % 7.6 L Monocytes % 2.6 Eosinophils % 3.4 Basophils % 0.1 Nucleated Red Blood Cells % 0.0 Neutrophils # 13.7 H Lymphocytes # 1.2 Monocytes # 0.4 Eosinophils # 0.6 H Basophils # 0.0 Nucleated Red Blood Cells # 0.0 Sodium Level 142 Potassium Level 4.0 Chloride Level 103 Carbon Dioxide Level 26 Anion Gap 17 H Blood Urea Nitrogen 29 H Creatinine 0.47 Glucose Level 150 Calcium Level 8.6 Vancomycin Level Trough 12.8 Medications Medications Current Medications Atorvastatin Calcium (Lipitor) 40 mg HS GTB Last administered on 03/22/17 20: 12; Admin Dose 40 MG; Start 03/19/17 at 21:00 Bisacodyl (Dulcolax Supp) 10 mg DAILY PRN [place] PRN; Start 03/19/17 at 05:00 Docusate Sodium (Colace) 200 mg DAILY PO Last administered on 03/22/17 08:44; Admin Dose 200 MG; Start 03/19/17 at 09:00 Enoxaparin Sodium (Lovenox) 40 mg DAILY SC Last administered on 03/23/17 10:01 ; Admin Dose 40 MG; Start 03/19/17 at 09:00 Furosemide (Lasix) 20 mg DAILY@06 GTB Last administered on 03/23/17 05:46; Admin Dose 20 MG; Start 03/19/17 at 06:00 Magnesium Hydroxide (Milk Of Mag) 30 ml QHS GTB Last administered on 03/22/17 20:12; Admin Dose 30 ML; Start 03/19/17 at 21:00 Ondansetron HCl (Zofran Tab) 4 mg Q6H PRN PO NAUSEA AND/OR VOMITING Last administered on 03/22/17 06:56; Admin Dose 4 MG; Start 03/19/17 at 05:00 Senna (Senokot) 2 tab QHS GTB Last administered on 03/22/17 20:17; Admin Dose 2 TAB; Start 03/19/17 at 21:00 Tramadol HCl (Ultram) 50 mg BID GTB Last administered on 03/23/17 09:47; Admin Dose 50 MG; Start 03/19/17 at 09:00 Zinc Sulfate (Zinc Sulfate) 220 mg DAILY GTB Last administered on 03/23/17 09: 48; Admin Dose 220 MG; Start 03/19/17 at 09:00 Acetaminophen (Tylenol Liquid) 650 mg Q4H PRN GTB MILD PAIN LEVEL 1-3 Last administered on 03/22/17 08:19; Admin Dose 650 MG; Start 03/19/17 at 06:00 Acetaminophen (Tylenol Liquid) 1,000 mg Q4H PRN PO PAIN LEVEL 4-6/10 Last administered on 03/22/17 03:30; Admin Dose 1,000 MG; Start 03/19/17 at 06:00 Ascorbic Acid (Vitamin C) 500 mg TID GTB Last administered on 03/23/17 09:47; Admin Dose 500 MG; Start 03/19/17 at 09:00 Insulin Aspart (Novolog Insulin Pen) NOVOLOG *MODERATE* ALGORI... Q6 SC Last administered on 03/23/17 06:07; Admin Dose 2 UNIT; Start 03/19/17 at 06:00 Miscellaneous Information 1 ea NOTE XX ; Start 03/19/17 at 06:00 Glucose (Glutose) 15 gm Q15M PRN PO DECREASED GLUCOSE; Start 03/19/17 at 06:00 Glucose (Glutose) 22.5 gm Q15M PRN PO DECREASED GLUCOSE; Start 03/19/17 at 06: 00 Dextrose (D50w Syringe) 25 ml Q15M PRN IV DECREASED GLUCOSE; Start 03/19/17 at 06:00 Dextrose (D50w Syringe) 50 ml Q15M PRN IV DECREASED GLUCOSE; Start 03/19/17 at 06:00 Glucagon (Glucagen) 1 mg Q15M PRN IM DECREASED GLUCOSE; Start 03/19/17 at 06:00 Glucose (Glutose) 15 gm Q15M PRN BUCCAL DECREASED GLUCOSE; Start 03/19/17 at 06 :00 Levetiracetam (Keppra Liquid) 500 mg BID GTB Last administered on 03/23/17 09: 45; Admin Dose 500 MG; Start 03/19/17 at 09:00 Ferrous Sulfate (Feosol Liquid Cup) 300 mg BID GTB Last administered on 09:42; Admin Dose 300 MG; Start 03/19/17 at 09:00 Multivitamins/ Minerals (Theragran-M) 1 tab BID GTB Last administered on 20:17; Admin Dose 1 TAB; Start 03/19/17 at 09:00 Insulin Human NPH (Humulin N) 8 unit TID SC Last administered on 03/23/17 10: 04; Admin Dose 8 UNIT; Start 03/19/17 at 09:00 Miscellaneous Information (Pending Santyl Order For Wound Care) This patient mahmood... PRN PRN XX WOUND CARE; Start 03/19/17 at 06:00 Potassium Chloride (Potassium Chloride Pwd/Soln) 40 meq DAILY GTB Last administered on 03/23/17 09:52; Admin Dose 40 MEQ; Start 03/19/17 at 09:00 Sodium Biphosphate/ Sodium Phosphate (Fleet Enema) 133 ml DAILY PRN [place] CONSTIPATION; Start 03/19/17 at 06:30 Diltiazem HCl (Cardizem) 60 mg Q8 GTB Last administered on 03/23/17 05:45; Admin Dose 60 MG; Start 03/19/17 at 14:00 Insulin Glargine 24 unit 24 unit DAILY@20 SC Last administered on 03/22/17 20: 07; Admin Dose 24 UNIT; Start 03/21/17 at 20:00 Imipenem/ Cilastatin Sodium 100 ml @ 100 mls/hr Q6 IVPB Last administered on 05:14; Admin Dose 100 MLS/HR; Start 03/22/17 at 00:00 Sodium Chloride (NS) 1,000 ml @ 100 mls/hr Q10H IV Last administered on 17:08; Admin Dose 100 MLS/HR; Start 03/21/17 at 22:00 Metoprolol Tartrate (Lopressor) 5 mg Q6 PRN IV TACHYCARDIA Last administered on 03/23/17 09:31; Admin Dose 5 MG; Start 03/22/17 at 10:30 Morphine Sulfate 1 mg 1 mg Q4H PRN IV severe pain Last administered on 01:04; Admin Dose 1 MG; Start 03/22/17 at 12:00 Vancomycin HCl/ Sodium Chloride (Vancocin/NS) 150 ml @ 75 mls/hr Q12H IVPB Last administered on 03/23/17 06:32; Admin Dose 75 MLS/HR; Start 03/22/17 at 18 :00 Ondansetron HCl (Zofran Inj) 4 mg Q4H PRN IV NAUSEA AND/OR VOMITING Last administered on 03/23/17 05:10; Admin Dose 4 MG; Start 03/23/17 at 05:00 JAMES ERNANDEZ MD Mar 23, 2017 11:33
--- NOTE | 2017-03-23 11:46 | RADRPT ---
PROCEDURE: US left upper extremity Venous. CLINICAL INDICATION: swelling TECHNIQUE: Multiple sonographic images of the left upper lower extremity deep an superficial venou s system was obtained utilizing grayscale, color-flow, compressive sonography and doppler imaging wi th augmentation. The images were reviewed on a PACS workstation. COMPARISON: None. FINDINGS: There is normal compressibility and flow within the left internal jugular, subclavian, axillary, br achial, basilic, cephalic, radial and ulnar veins. IMPRESSION: No sonographic evidence for venous thrombosis. RPTAT:AAJJ Physician Yuko Date Time Electronically viewed and signed by Physician Yuko on 03/23/2017 11:46 /
[2017-03-23] MEDS: D5-LR + KCL 20 MEQ 1,000 ML IV SCH ×2 (12:00→22:00)
[2017-03-23] MEDS: POLYETHYLENE GLYCOL 17 GM PACKET GTB SCH (12:00)
--- NOTE | 2017-03-23 12:08 | RADRPT ---
PROCEDURE: XR Chest. CLINICAL INDICATION: Rule out aspiration TECHNIQUE: Single frontal view of the chest was obtained COMPARISON: 03/22/2017 FINDINGS: The heart does not appear to be grossly enlarged. There is appearance of mild pulmonary vascular co ngestion increased compared to previous study. Bilateral increased interstitial lung densities sugg estive of interstitial pulmonary edema with confluence in the lower lungs. Superimposed aspiration possible . Mild elevation of the right hemidiaphragm is again apparent. ECG leads projected over t he chest. Small bilateral pleural effusions apparent IMPRESSION: Suggestive of congestive heart failure/fluid overload and interstitial pulmonary edema with confluen ce in the lower lungs. Superimposed aspiration is possible. Small bilateral pleural effusions. Ple ase see above. RPTAT: HJES .Jace Koch MD, MD Date Time Electronically viewed and signed by .Jace Koch MD, on 03/23/2017 12:07 .S/
--- NOTE | 2017-03-23 14:03 | CONS ---
Date/Time of Note Date/Time of Note DATE: 03/23/17 TIME: 14:00 Consult Date/Type/Reason Admit Date/Time Mar 19, 2017 at 01:44 Initial Consult Date 03/22/17 Type of Consultation: Pulm/CCM Subjective Transferred to the ICU for worsening resp insufficiency, now on NRM. Objective Vital Signs Date Time Temp Pulse Resp B/P Pulse Ox O2 Delivery O2 Flow Rate FiO2 03/23/17 10:26 118 30 94 03/23/17 10:25 15.0 03/23/17 09:50 Partial Rebreather Mask 03/23/17 08:00 98.2 102/59 Intake and Output 03/22/17 03/22/17 03/23/17 15:00 23:00 07:00 Intake Total 820 ml 1080 ml 710 ml Balance 820 ml 1080 ml 710 ml Exam HEENT: Neck supple; no JVD; no LAD CVS: tachy, S1 and S2 CHEST: + rhonchi b/l ABD: Soft, NT, + BS, G tube in place EXT: No c/c/e Results/Medications Result Diagram: 03/23/17 1110 03/23/17 0507 Results 24 hrs Laboratory Tests Test 03/22/17 17:29 03/22/17 20:03 03/22/17 23:05 03/23/17 05:07 Bedside Glucose 183 211 253 H White Blood Count 16.0 H Red Blood Count 2.73 L Hemoglobin 8.6 L Hematocrit 26.9 L Mean Corpuscular Volume 98.5 Mean Corpuscular Hemoglobin 31.5 Mean Corpuscular Hemoglobin Concent 32.0 Red Cell Distribution Width 14.7 H Platelet Count 336 Mean Platelet Volume 11.1 H Neutrophils % 85.6 H Lymphocytes % 7.6 L Monocytes % 2.6 Eosinophils % 3.4 Basophils % 0.1 Nucleated Red Blood Cells % 0.0 Neutrophils # 13.7 H Lymphocytes # 1.2 Monocytes # 0.4 Eosinophils # 0.6 H Basophils # 0.0 Nucleated Red Blood Cells # 0.0 Sodium Level 142 Potassium Level 4.0 Chloride Level 103 Carbon Dioxide Level 26 Anion Gap 17 H Blood Urea Nitrogen 29 H Creatinine 0.47 Glucose Level 150 Calcium Level 8.6 Vancomycin Level Trough 12.8 Test 03/23/17 06:04 03/23/17 11:10 03/23/17 12:56 Bedside Glucose 146 128 White Blood Count 15.3 H Red Blood Count 2.80 L Hemoglobin 8.4 L Hematocrit 27.5 L Mean Corpuscular Volume 98.2 Mean Corpuscular Hemoglobin 30.0 Mean Corpuscular Hemoglobin Concent 30.5 L Red Cell Distribution Width 14.9 H Platelet Count 341 Mean Platelet Volume 11.4 H Neutrophils % 85.4 H Lymphocytes % 8.6 L Monocytes % 2.5 Eosinophils % 2.8 Basophils % 0.1 Nucleated Red Blood Cells % 0.0 Neutrophils # 13.1 H Lymphocytes # 1.3 Monocytes # 0.4 Eosinophils # 0.4 Basophils # 0.0 Nucleated Red Blood Cells # 0.0 Medications Current Medications Atorvastatin Calcium (Lipitor) 40 mg HS GTB Last administered on 03/22/17 20: 12; Admin Dose 40 MG; Start 03/19/17 at 21:00 Bisacodyl (Dulcolax Supp) 10 mg DAILY PRN MS PRN; Start 03/19/17 at 05:00 Enoxaparin Sodium (Lovenox) 40 mg DAILY SC Last administered on 03/23/17 10:01 ; Admin Dose 40 MG; Start 03/19/17 at 09:00 Furosemide (Lasix) 20 mg DAILY@06 GTB Last administered on 03/23/17 05:46; Admin Dose 20 MG; Start 03/19/17 at 06:00 Ondansetron HCl (Zofran Tab) 4 mg Q6H PRN PO NAUSEA AND/OR VOMITING Last administered on 03/22/17 06:56; Admin Dose 4 MG; Start 03/19/17 at 05:00 Tramadol HCl (Ultram) 50 mg BID GTB Last administered on 03/23/17 09:47; Admin Dose 50 MG; Start 03/19/17 at 09:00 Zinc Sulfate (Zinc Sulfate) 220 mg DAILY GTB Last administered on 03/23/17 09: 48; Admin Dose 220 MG; Start 03/19/17 at 09:00 Acetaminophen (Tylenol Liquid) 650 mg Q4H PRN GTB MILD PAIN LEVEL 1-3 Last administered on 03/22/17 08:19; Admin Dose 650 MG; Start 03/19/17 at 06:00 Acetaminophen (Tylenol Liquid) 1,000 mg Q4H PRN PO PAIN LEVEL 4-6/10 Last administered on 03/22/17 03:30; Admin Dose 1,000 MG; Start 03/19/17 at 06:00 Ascorbic Acid (Vitamin C) 500 mg TID GTB Last administered on 03/23/17 12:34; Admin Dose 500 MG; Start 03/19/17 at 09:00 Insulin Aspart (Novolog Insulin Pen) NOVOLOG *MODERATE* ALGORI... Q6 SC Last administered on 03/23/17 06:07; Admin Dose 2 UNIT; Start 03/19/17 at 06:00 Miscellaneous Information 1 ea NOTE XX ; Start 03/19/17 at 06:00 Glucose (Glutose) 15 gm Q15M PRN PO DECREASED GLUCOSE; Start 03/19/17 at 06:00 Glucose (Glutose) 22.5 gm Q15M PRN PO DECREASED GLUCOSE; Start 03/19/17 at 06: 00 Dextrose (D50w Syringe) 25 ml Q15M PRN IV DECREASED GLUCOSE; Start 03/19/17 at 06:00 Dextrose (D50w Syringe) 50 ml Q15M PRN IV DECREASED GLUCOSE; Start 03/19/17 at 06:00 Glucagon (Glucagen) 1 mg Q15M PRN IM DECREASED GLUCOSE; Start 03/19/17 at 06:00 Glucose (Glutose) 15 gm Q15M PRN BUCCAL DECREASED GLUCOSE; Start 03/19/17 at 06 :00 Levetiracetam (Keppra Liquid) 500 mg BID GTB Last administered on 03/23/17 09: 45; Admin Dose 500 MG; Start 03/19/17 at 09:00 Multivitamins/ Minerals (Theragran-M) 1 tab BID GTB Last administered on 20:17; Admin Dose 1 TAB; Start 03/19/17 at 09:00 Insulin Human NPH (Humulin N) 8 unit TID SC Last administered on 03/23/17 12: 59; Admin Dose 8 UNIT; Start 03/19/17 at 09:00 Miscellaneous Information (Pending [facility] Order For Wound Care) This patient mahmood... PRN PRN XX WOUND CARE; Start 03/19/17 at 06:00 Sodium Biphosphate/ Sodium Phosphate (Fleet Enema) 133 ml DAILY PRN [place] CONSTIPATION; Start 03/19/17 at 06:30 Diltiazem HCl (Cardizem) 60 mg Q8 GTB Last administered on 03/23/17 05:45; Admin Dose 60 MG; Start 03/19/17 at 14:00 Insulin Glargine 24 unit 24 unit DAILY@20 SC Last administered on 03/22/17 20: 07; Admin Dose 24 UNIT; Start 03/21/17 at 20:00 Imipenem/ Cilastatin Sodium (Primaxin 500 Mg/ 100 ml (Pmx)) 100 ml @ 100 mls/ hr Q6 IVPB Last administered on 03/23/17 12:33; Admin Dose 100 MLS/HR; Start 03/22/17 at 00:00 Metoprolol Tartrate (Lopressor) 5 mg Q6 PRN IV TACHYCARDIA Last administered on 03/23/17 09:31; Admin Dose 5 MG; Start 03/22/17 at 10:30 Morphine Sulfate 1 mg 1 mg Q4H PRN IV severe pain Last administered on 01:04; Admin Dose 1 MG; Start 03/22/17 at 12:00 Vancomycin HCl/ Sodium Chloride (Vancocin/NS) 150 ml @ 75 mls/hr Q12H IVPB Last administered on 03/23/17 06:32; Admin Dose 75 MLS/HR; Start 03/22/17 at 18 :00 Ondansetron HCl (Zofran Inj) 4 mg Q4H PRN IV NAUSEA AND/OR VOMITING Last administered on 03/23/17 12:33; Admin Dose 4 MG; Start 03/23/17 at 05:00 Polyethylene Glycol 17 gm 17 gm DAILY GTB ; Start 03/23/17 at 12:00 Potassium Cl/ Dextrose/Lact Ringer's (D5-Lr + KCl 20 Meq) 1,000 ml @ 100 mls/ hr Q10H IV ; Start 03/23/17 at 12:00 Docusate Sodium (Colace Liquid Cup) 200 mg BID GTB ; Start 03/23/17 at 21:00 Assessment/Plan Additional Assessment/Plan IMP: 1. Hypoxemic respiratory failure, likely secondary to aspiration. 2. Possible aspiration component. 3. Nausea/vomiting 4. History of dysphagia with gastrostomy tube. 5. Sinus tachycardia, likely secondary to underlying infection 6. Psych history RECS: 1. Strict aspiration precautions. 2. Titrate FiO2 to SpO2 > 92%--> change to venti mask 3. Broad-spectrum antibiotic coverage 4. Deep venous thrombosis and gastrointestinal prophylaxis 5. F/U cultures 35 min cc time HECTOR CHACKO MD Mar 23, 2017 14:03
--- NOTE | 2017-03-23 14:38 | PSY ---
Date/Time of Note Date/Time of Note DATE: 03/23/17 TIME: 17:31 Psychiatric Subjective Eval Consent Pt consented to telemedicine: Yes Subjective Evaluation Patient location: inpatient Chief Complaint: BARBARA CENTENO from [facility],c/o lower back pain,non-ambulatory Reason for consult: Pt has ho scz and bipolar do, not on meds History of present illness 56 yo female with severe and multiple medica problems, numerous severe infections, diabetes, tonic clonic seizures, heart disease, currently in ICU for infections and numerous conditions. She is in good behavioral control. She is unable to talk about barely able to move. Started interview with her able to communicate by raising her forearm, but she becamse fatigued after doign this 3- 4 x and thereafter coudl not communicate. Unable to obtain any other history. MSE: lying in bed, mask on, not moving anything except right forearm a few times , otherwise appears stated age. Unable to obtain any other information as pt could no like down and could not communicate. Family History Unable to obtain due to severe medical status Medical history Problems Medical Problems: (1) Dehydration Status: Acute (2) Encephalopathy acute Status: Acute (3) Fall Status: Acute (4) Neck pain Status: Acute (5) Pneumonia Status: Acute (6) Seizure Status: Acute (7) Sepsis Status: Acute (8) Sepsis secondary to UTI Status: Acute (9) UTI (urinary tract infection) Status: Acute Allergies: Coded Allergies: No Known Allergy (Unverified , 03/22/17) Psychiatric Objective Eval Mental Status Examination: Laboratory Results Laboratory Tests Test 03/21/17 16:58 03/21/17 20:32 03/21/17 22:15 03/21/17 23:40 Bedside Glucose 227mg/dL 209mg/dL 345mg/dL White Blood Count 15.210^3/ul Red Blood Count 3.0010^6/ul Hemoglobin 9.4g/dl Hematocrit 28.7% Mean Corpuscular Volume 95.7fl Mean Corpuscular Hemoglobin 31.3pg Mean Corpuscular Hemoglobin Concent 32.8g/dl Red Cell Distribution Width 14.4% Platelet Count 21739^3/UL Mean Platelet Volume 11.2fl Neutrophils % 86.7% Lymphocytes % 7.7% Monocytes % 4.7% Eosinophils % 0.3% Basophils % 0.1% Nucleated Red Blood Cells % 0.0/100WBC Neutrophils # 13.210^3/ul Lymphocytes # 1.210^3/ul Monocytes # 0.710^3/ul Eosinophils # 0.010^3/ul Basophils # 0.010^3/ul Nucleated Red Blood Cells # 0.010^3/ul Sodium Level 136mmol/L Potassium Level 3.4mmol/L Chloride Level 96mmol/L Carbon Dioxide Level 28mmol/L Anion Gap 15 Blood Urea Nitrogen 25mg/dl Creatinine 0.57mg/dl Glucose Level 330mg/dl Lactic Acid Level 1.3mmol/L Calcium Level 8.9mg/dl Test 03/22/17 02:13 03/22/17 05:05 03/22/17 06:14 03/22/17 08:40 Bedside Glucose 212mg/dL 170mg/dL 186mg/dL White Blood Count 15.810^3/ul Red Blood Count 3.0610^6/ul Hemoglobin 9.5g/dl Hematocrit 30.0% Mean Corpuscular Volume 98.0fl Mean Corpuscular Hemoglobin 31.0pg Mean Corpuscular Hemoglobin Concent 31.7g/dl Red Cell Distribution Width 14.6% Platelet Count 65863^3/UL Mean Platelet Volume 11.4fl Neutrophils % 90.9% Lymphocytes % 4.2% Monocytes % 2.1% Eosinophils % 2.0% Basophils % 0.2% Nucleated Red Blood Cells % 0.0/100WBC Neutrophils # 14.410^3/ul Lymphocytes # 0.710^3/ul Monocytes # 0.310^3/ul Eosinophils # 0.310^3/ul Basophils # 0.010^3/ul Nucleated Red Blood Cells # 0.010^3/ul Sodium Level 139mmol/L Potassium Level 3.8mmol/L Chloride Level 102mmol/L Carbon Dioxide Level 26mmol/L Anion Gap 15 Blood Urea Nitrogen 25mg/dl Creatinine 0.58mg/dl Glucose Level 189mg/dl Calcium Level 9.2mg/dl Test 03/22/17 11:41 03/22/17 12:56 03/22/17 13:45 03/22/17 17:29 Blood Gas Specimen Source Blood arterial Arterial Blood Date Drawn 03/22/2017 11:50:27 AM Arterial Blood pH (Temp corrected) 7.469 Arterial Blood pCO2 (Temp correct) 37.1mmhg Arterial Blood pO2 (Temp corrected) 101.0mmHG Arterial Blood HCO3 26.3mmol/L Arterial Blood Base Excess 2.6mmol/L Arterial Blood Oxygen Saturation 97.5mmHG Ramez Test ACCEPTAB Arterial Blood Gas Puncture Site Right Radial Arterial Blood Carboxyhemoglobin 0.3% Arterial Blood Methemoglobin 0.3% Blood Gas A-a O2 Differential 235.4mmHg Oxyhemoglobin Percent 96.9% Total Hemoglobin 8.5g/dl Blood Gas Temperature 37.0C Blood Gas Modality MASK - SIMPLE FiO2 53.0% Blood Gas Notified Whom JLD Blood Gas Notified Time 03/22/2017 12:34:00 PM Bedside Glucose 152mg/dL 183mg/dL White Blood Count 18.410^3/ul Red Blood Count 2.9110^6/ul Hemoglobin 8.9g/dl Hematocrit 28.7% Mean Corpuscular Volume 98.6fl Mean Corpuscular Hemoglobin 30.6pg Mean Corpuscular Hemoglobin Concent 31.0g/dl Red Cell Distribution Width 14.5% Platelet Count 29238^3/UL Mean Platelet Volume 11.1fl Neutrophils % 91.0% Lymphocytes % 4.6% Monocytes % 3.0% Eosinophils % 0.5% Basophils % 0.1% Nucleated Red Blood Cells % 0.0/100WBC Neutrophils # 16.710^3/ul Lymphocytes # 0.910^3/ul Monocytes # 0.610^3/ul Eosinophils # 0.110^3/ul Basophils # 0.010^3/ul Nucleated Red Blood Cells # 0.010^3/ul Lactic Acid Level 1.6mmol/L Test 03/22/17 20:03 03/22/17 23:05 03/23/17 05:07 03/23/17 06:04 Bedside Glucose 211mg/dL 253mg/dL 146mg/dL White Blood Count 16.010^3/ul Red Blood Count 2.7310^6/ul Hemoglobin 8.6g/dl Hematocrit 26.9% Mean Corpuscular Volume 98.5fl Mean Corpuscular Hemoglobin 31.5pg Mean Corpuscular Hemoglobin Concent 32.0g/dl Red Cell Distribution Width 14.7% Platelet Count 63170^3/UL Mean Platelet Volume 11.1fl Neutrophils % 85.6% Lymphocytes % 7.6% Monocytes % 2.6% Eosinophils % 3.4% Basophils % 0.1% Nucleated Red Blood Cells % 0.0/100WBC Neutrophils # 13.710^3/ul Lymphocytes # 1.210^3/ul Monocytes # 0.410^3/ul Eosinophils # 0.610^3/ul Basophils # 0.010^3/ul Nucleated Red Blood Cells # 0.010^3/ul Sodium Level 142mmol/L Potassium Level 4.0mmol/L Chloride Level 103mmol/L Carbon Dioxide Level 26mmol/L Anion Gap 17 Blood Urea Nitrogen 29mg/dl Creatinine 0.47mg/dl Glucose Level 150mg/dl Calcium Level 8.6mg/dl Vancomycin Level Trough 12.8ug/ml Test 03/23/17 11:10 03/23/17 12:56 White Blood Count 15.310^3/ul Red Blood Count 2.8010^6/ul Hemoglobin 8.4g/dl Hematocrit 27.5% Mean Corpuscular Volume 98.2fl Mean Corpuscular Hemoglobin 30.0pg Mean Corpuscular Hemoglobin Concent 30.5g/dl Red Cell Distribution Width 14.9% Platelet Count 69694^3/UL Mean Platelet Volume 11.4fl Neutrophils % 85.4% Lymphocytes % 8.6% Monocytes % 2.5% Eosinophils % 2.8% Basophils % 0.1% Nucleated Red Blood Cells % 0.0/100WBC Neutrophils # 13.110^3/ul Lymphocytes # 1.310^3/ul Monocytes # 0.410^3/ul Eosinophils # 0.410^3/ul Basophils # 0.010^3/ul Nucleated Red Blood Cells # 0.010^3/ul Bedside Glucose 128mg/dL Assessment and Plan Assessment/Diagnosis [place] I: scz and bipolar do per report Recommendation/Plan Medication Management At this time, given her severe medical status, that she is in good behavioral control, and that MD was unable to communicate (pt is so obtunded). Once pt is able to communicate, abilify would be reasonable option. However, would recommend consulting psych again when pt can communicate BEFORE starting a psych med. In meantime, would recommend abilify 5.25mg IM for moderate to severe agitation , can repeat q2 hours up to 30mg in 24 hours. Avoid benzodiazepines. d/w nurse. PATRICE LA Mar 23, 2017 14:38
[2017-03-23] MEDS: INSULIN GLARGINE [LANtus] 3 ML PEN SC SCH (19:55)
[2017-03-23] MEDS: ATORVASTATIN 40 MG TAB GTB SCH (20:07)
[2017-03-23] MEDS: DOCUSATE SODIUM 10 MG/ML (10ML CUP) GTB SCH (20:07)
[2017-03-23] MEDS: ACETAMINOPHEN 650MG/20.3ML CUP GTB PRN (22:30)
[2017-03-24] VITALS (29 sets, daily range): BP systolic 93–146; BP diastolic 47–84; PULSE 93–141; RESP 22–36
[2017-03-24 05:05] LABS: AADO2 Arterial 324.1 mmHg (7.0-24.0); Allen Test ACCEPTAB; Arterial Base Excess 3.5 mmol/L (-3.0-3); Arterial COHb 0.1 % (0.0-3.0); Arterial Fraction of Oxyhgb 93.7 % (93.0-99.0); Arterial MetHb 0.1 % (0.0-1.5); Arterial Total Hemglobin 10.3 g/dl (12.0-18.0); MODE MASK - SIMPLE
[2017-03-24] MEDS: VANCOMYCIN 750 MG in SOD CHLORIDE 0.9% 150 ML IVPB SCH ×2 (05:12→18:34)
[2017-03-24] MEDS: DILTIAZEM 60 MG TAB GTB SCH ×3 (05:13→21:05)
[2017-03-24] MEDS: IMIPENEM-CILAST 500MG IV (PMX) 100 ML IVPB SCH ×3 (05:13→17:56)
[2017-03-24] MEDS: FUROSEMIDE 20 MG TAB GTB SCH (05:13)
[2017-03-24] MEDS: INSULIN ASPART [NOVOLOG] 3 ML PEN SC SCH ×3 (05:27→18:00)
[2017-03-24] MEDS: ONDANSETRON 4 MG INJ IV PRN (07:45)
[2017-03-24] MEDS: D5-LR + KCL 20 MEQ 1,000 ML IV SCH (07:47)
[2017-03-24] MEDS: ALBUTEROL/IPRATROPIUM (NEB) 3 ML AMP HHN PRN (08:02)
[2017-03-24] MEDS: POLYETHYLENE GLYCOL 17 GM PACKET GTB SCH (08:47)
[2017-03-24] MEDS: ZINC SULFATE 220 MG CAP GTB SCH (08:48)
[2017-03-24] MEDS: LEVETIRACETAM (100 MG/ML) 5ML CUP GTB SCH (08:48)
[2017-03-24] MEDS: ASCORBIC ACID 500 MG TAB GTB SCH (08:48)
[2017-03-24] MEDS: DOCUSATE SODIUM 10 MG/ML (10ML CUP) GTB SCH (08:48)
[2017-03-24] MEDS: MULTIVITAMINS/MINERALS TAB GTB SCH (08:48)
[2017-03-24] MEDS: traMADol 50 MG TAB GTB SCH ×2 (08:54→21:05)
[2017-03-24] MEDS: NPH, HUMAN INSULIN ISOPHANE 3ML VIAL SC SCH (09:00)
[2017-03-24] MEDS: ENOXAPARIN 40 MG/0.4 ML SYG SC SCH (09:03)
[2017-03-24 10:03] LABS: ADD SCAN DIFF NO
[2017-03-24 10:07] LABS: BASOPHILS % 0.2 % (0.0-2.0); EOSINOPHILS # 0.7 10^3/ul (0.0-0.5); EOSINOPHILS % 6.2 % (0.0-7.0); HEMATOCRIT 27.2 % (37.0-47.0); HEMOGLOBIN 8.7 g/dl (12.0-16.0); LYMPHOCYTES # 1.5 10^3/ul (0.8-2.9); LYMPHOCYTES % 13.2 % (15.0-51.0); MEAN CORPUSCULAR HEMOGLOBIN 31.2 pg (29.0-33.0); MEAN CORPUSCULAR VOLUME 97.5 fl (82.0-101.0); MEAN PLATELET VOLUME 11.1 fl (7.4-10.4); MONOCYTE # 0.3 10^3/ul (0.3-0.9); MONOCYTES % 2.6 % (0.0-11.0); NEUTROPHIL # 8.9 10^3/ul (1.6-7.5); NEUTROPHILS % 76.4 % (39.0-77.0); PLATELET COUNT 365 10^3/UL (140-415); RED BLOOD COUNT 2.79 10^6/ul (4.20-5.40); WHITE BLOOD COUNT 11.7 10^3/ul (4.8-10.8)
[2017-03-24 10:25] LABS: POTASSIUM 3.2 mmol/L (3.5-5.1)
--- NOTE | 2017-03-24 10:26 | CONS ---
Date/Time of Note Date/Time of Note DATE: 03/24/17 TIME: 10:19 Assessment/Plan Assessment/Plan Chief Complaint/Hosp Course IMPRESSION: 1. nausea with vomiting: KUB from 2 days ago showed possible constipation. Awaiting today's KUB. 2. Possible sepsis with leukocytosis tachycardia. 3. Possible HCAP 4. Sinus tachycardia, most likely secondary to dehydration. 5. Left arm/hand swelling. 6. Seizure disorder. 7. Dysphagia with percutaneous endoscopic gastrostomy. 8. Iron deficiency anemia RECOMMENDATION 1. change pepcid to protonix iv bid in case n/v due to PUD, gastritis, esophagitis 2. change bowel regiman to miralax daily 3. add reglan 10 mg iv bid to see if it will help with the nausea 4. f/u KUB 5. continue to hold tube feed for now (as she is still nauseous and awaiting KUB from today) but ok for meds 6. continue GT to low intermittent suctioning 7. stop GT iron as it can be constipating. will recheck iron panel and replete by IV if low 8. stop vitamin C as we replete iron if low by IV and to minimize GT load 9. continue D5 LR with 20 mEQ KCL so pt don't need GT potassium to minimize constipation and nausea (oral KCL can cause nausea) 10. Dr. Sandy to resume care tomorrow Problems: Consultation Date/Type/Reason Admit Date/Time Mar 19, 2017 at 01:44 Initial Consult Date 03/22/17 Type of Consultation: GI 24 HR Interval Summary Free Text/Dictation still complains of nausea, no vomiting Exam/Review of Systems Vital Signs Vitals Vital Signs Date Time Temp Pulse Resp B/P Pulse Ox O2 Delivery O2 Flow Rate FiO2 03/24/17 08:01 120 29 95 Simple Mask 10.0 03/24/17 07:00 98.1 136/65 Intake and Output 03/23/17 03/23/17 03/24/17 15:00 23:00 07:00 Intake Total 0 ml 550 ml 750 ml Output Total 100 ml Balance 0 ml 550 ml 650 ml Exam Constitutional: alert, frail, oriented Psych: nl mood/affect, no complaints Head: atraumatic, normocephalic Eyes: EOMI, nl conjunctiva, nl lids, nl sclera ENMT: mucosa pink and moist, nl external ears & nose, nl lips & teeth, nl nasal mucosa & septum Neck: non-tender, supple Respiratory: clear to auscultation, normal air movement Cardiovascular: nl pulses, regular rate and rhythm Gastrointestinal: bowel sounds, non-tender, other (GT c/d/i), soft Results Result Diagram: 03/24/17 0930 03/23/17 0507 Results 24 hrs Laboratory Tests Test 03/23/17 11:10 03/23/17 12:56 03/23/17 18:26 03/23/17 19:35 White Blood Count 15.3 H Red Blood Count 2.80 L Hemoglobin 8.4 L Hematocrit 27.5 L Mean Corpuscular Volume 98.2 Mean Corpuscular Hemoglobin 30.0 Mean Corpuscular Hemoglobin Concent 30.5 L Red Cell Distribution Width 14.9 H Platelet Count 341 Mean Platelet Volume 11.4 H Neutrophils % 85.4 H Lymphocytes % 8.6 L Monocytes % 2.5 Eosinophils % 2.8 Basophils % 0.1 Nucleated Red Blood Cells % 0.0 Neutrophils # 13.1 H Lymphocytes # 1.3 Monocytes # 0.4 Eosinophils # 0.4 Basophils # 0.0 Nucleated Red Blood Cells # 0.0 Bedside Glucose 128 76 92 Test 03/23/17 21:13 03/23/17 23:54 03/24/17 05:00 03/24/17 05:21 Bedside Glucose 89 144 89 Blood Gas Specimen Source Blood arterial Arterial Blood Date Drawn 03/24/2017 4:40:09 AM Arterial Blood pH (Temp corrected) 7.485 H Arterial Blood pCO2 (Temp correct) 36.7 Arterial Blood pO2 (Temp corrected) 70.6 L Arterial Blood HCO3 27.0 H Arterial Blood Base Excess 3.5 H Arterial Blood Oxygen Saturation 93.9 L Ramez Test ACCEPTAB Arterial Blood Gas Puncture Site Right Radial Arterial Blood Carboxyhemoglobin 0.1 Arterial Blood Methemoglobin 0.1 Blood Gas A-a O2 Differential 324.1 H Oxyhemoglobin Percent 93.7 Total Hemoglobin 10.3 L Blood Gas Temperature 37.0 Blood Gas Modality MASK - SIMPLE FiO2 61.0 Blood Gas Notified Whom MM Blood Gas Notified Time 03/24/2017 5:05:43 AM Test 03/24/17 09:30 White Blood Count 11.7 #H Red Blood Count 2.79 L Hemoglobin 8.7 L Hematocrit 27.2 L Mean Corpuscular Volume 97.5 Mean Corpuscular Hemoglobin 31.2 Mean Corpuscular Hemoglobin Concent 32.0 Red Cell Distribution Width 15.0 H Platelet Count 365 Mean Platelet Volume 11.1 H Neutrophils % 76.4 Lymphocytes % 13.2 L Monocytes % 2.6 Eosinophils % 6.2 Basophils % 0.2 Nucleated Red Blood Cells % 0.0 Neutrophils # 8.9 H Lymphocytes # 1.5 Monocytes # 0.3 Eosinophils # 0.7 H Basophils # 0.0 Nucleated Red Blood Cells # 0.0 Medications Medications Current Medications Atorvastatin Calcium (Lipitor) 40 mg HS GTB Last administered on 03/23/17 20: 07; Admin Dose 40 MG; Start 03/19/17 at 21:00 Bisacodyl (Dulcolax Supp) 10 mg DAILY PRN [place] PRN; Start 03/19/17 at 05:00 Enoxaparin Sodium (Lovenox) 40 mg DAILY SC Last administered on 03/24/17 09:03 ; Admin Dose 40 MG; Start 03/19/17 at 09:00 Furosemide (Lasix) 20 mg DAILY@06 GTB Last administered on 03/24/17 05:13; Admin Dose 20 MG; Start 03/19/17 at 06:00 Ondansetron HCl (Zofran Tab) 4 mg Q6H PRN PO NAUSEA AND/OR VOMITING Last administered on 03/22/17 06:56; Admin Dose 4 MG; Start 03/19/17 at 05:00 Tramadol HCl (Ultram) 50 mg BID GTB Last administered on 03/24/17 08:54; Admin Dose 50 MG; Start 03/19/17 at 09:00 Zinc Sulfate (Zinc Sulfate) 220 mg DAILY GTB Last administered on 03/24/17 08: 48; Admin Dose 220 MG; Start 03/19/17 at 09:00 Acetaminophen (Tylenol Liquid) 650 mg Q4H PRN GTB MILD PAIN LEVEL 1-3 Last administered on 03/23/17 22:30; Admin Dose 650 MG; Start 03/19/17 at 06:00 Acetaminophen (Tylenol Liquid) 1,000 mg Q4H PRN PO PAIN LEVEL 4-6/10 Last administered on 03/22/17 03:30; Admin Dose 1,000 MG; Start 03/19/17 at 06:00 Ascorbic Acid (Vitamin C) 500 mg TID GTB Last administered on 03/24/17 08:48; Admin Dose 500 MG; Start 03/19/17 at 09:00 Insulin Aspart (Novolog Insulin Pen) NOVOLOG *MODERATE* ALGORI... Q6 SC Last administered on 03/23/17 23:59; Admin Dose 2 UNIT; Start 03/19/17 at 06:00 Miscellaneous Information 1 ea NOTE XX ; Start 03/19/17 at 06:00 Glucose (Glutose) 15 gm Q15M PRN PO DECREASED GLUCOSE; Start 03/19/17 at 06:00 Glucose (Glutose) 22.5 gm Q15M PRN PO DECREASED GLUCOSE; Start 03/19/17 at 06: 00 Dextrose (D50w Syringe) 25 ml Q15M PRN IV DECREASED GLUCOSE; Start 03/19/17 at 06:00 Dextrose (D50w Syringe) 50 ml Q15M PRN IV DECREASED GLUCOSE; Start 03/19/17 at 06:00 Glucagon (Glucagen) 1 mg Q15M PRN IM DECREASED GLUCOSE; Start 03/19/17 at 06:00 Glucose (Glutose) 15 gm Q15M PRN BUCCAL DECREASED GLUCOSE; Start 03/19/17 at 06 :00 Levetiracetam (Keppra Liquid) 500 mg BID GTB Last administered on 03/24/17 08: 48; Admin Dose 500 MG; Start 03/19/17 at 09:00 Multivitamins/ Minerals (Theragran-M) 1 tab BID GTB Last administered on 08:48; Admin Dose 1 TAB; Start 03/19/17 at 09:00 Insulin Human NPH (Humulin N) 8 unit TID SC Last administered on 03/23/17 21: 16; Admin Dose 8 UNIT; Start 03/19/17 at 09:00 Miscellaneous Information (Pending [facility] Order For Wound Care) This patient mahmood... PRN PRN XX WOUND CARE; Start 03/19/17 at 06:00 Sodium Biphosphate/ Sodium Phosphate (Fleet Enema) 133 ml DAILY PRN [place] CONSTIPATION; Start 03/19/17 at 06:30 Diltiazem HCl (Cardizem) 60 mg Q8 GTB Last administered on 03/24/17 05:13; Admin Dose 60 MG; Start 03/19/17 at 14:00 Insulin Glargine 24 unit 24 unit DAILY@20 SC Last administered on 03/23/17 19: 55; Admin Dose 24 UNIT; Start 03/21/17 at 20:00 Imipenem/ Cilastatin Sodium (Primaxin 500 Mg/ 100 ml (Pmx)) 100 ml @ 100 mls/ hr Q6 IVPB Last administered on 03/24/17 05:13; Admin Dose 100 MLS/HR; Start 03/22/17 at 00:00 Metoprolol Tartrate (Lopressor) 5 mg Q6 PRN IV TACHYCARDIA Last administered on 03/23/17 18:02; Admin Dose 5 MG; Start 03/22/17 at 10:30 Morphine Sulfate 1 mg 1 mg Q4H PRN IV severe pain Last administered on 01:04; Admin Dose 1 MG; Start 03/22/17 at 12:00 Vancomycin HCl/ Sodium Chloride (Vancocin/NS) 150 ml @ 75 mls/hr Q12H IVPB Last administered on 03/24/17 05:12; Admin Dose 75 MLS/HR; Start 03/22/17 at 18 :00 Ondansetron HCl (Zofran Inj) 4 mg Q4H PRN IV NAUSEA AND/OR VOMITING Last administered on 03/24/17 07:45; Admin Dose 4 MG; Start 03/23/17 at 05:00 Polyethylene Glycol 17 gm 17 gm DAILY GTB Last administered on 03/24/17 08:47 ; Admin Dose 17 GM; Start 03/23/17 at 12:00 Potassium Cl/ Dextrose/Lact Ringer's (D5-Lr + KCl 20 Meq) 1,000 ml @ 100 mls/ hr Q10H IV Last administered on 03/24/17 07:47; Admin Dose 100 MLS/HR; Start 03/23/17 at 12:00 Docusate Sodium (Colace Liquid Cup) 200 mg BID GTB Last administered on 08:48; Admin Dose 200 MG; Start 03/23/17 at 21:00 JAMES ERNANDEZ MD Mar 24, 2017 10:26
[2017-03-24 10:27] LABS: CREATININE 0.49 mg/dl (0.44-1.00)
[2017-03-24 10:28] LABS: ALBUMIN/GLOBULIN RATIO 0.76; BILIRUBIN,INDIRECT 0.2 mg/dl (0-1.1); BILIRUBIN,TOTAL 0.2 mg/dl (0.2-1.3); CALCIUM 9.1 mg/dl (8.4-10.2); TOTAL PROTEIN 6.9 g/dl (6.1-8.1)
--- NOTE | 2017-03-24 10:35 | RADRPT ---
PROCEDURE: XR Chest. CLINICAL INDICATION: Assess ventilator patient. TECHNIQUE: PA and Lateral views of the chest were obtained. COMPARISON: Chest x-ray 01/19/2017. FINDINGS: The soft tissues are normal. An endotracheal tube is not identified in the field of view. The bony elements are normal. An oxygen cannula is draped across the chest. The heart is mildly enlarged b ut unchanged. cardiomediastinal silhouette and hilar structures are normal. The pulmonary vasculatu re is increase. There is a left-sided aorta. There are bilateral perihilar infiltrates extending to the periphery of the lungs. These have worsened as compared to the prior study. Small pleural effu sions are suspected. IMPRESSION: 1. Cardiomegaly with congestive heart failure and interstitial and alveolar pulmonary edema with sma ll pleural effusions. 2. An endotracheal tube is not identified in the field of view. RPTAT:AAJJ Physician Luba Date Time Electronically viewed and signed by Physician Luba on 03/24/2017 10:35 PARKER/
--- NOTE | 2017-03-24 10:39 | RADRPT ---
PROCEDURE: XR Abdomen. CLINICAL INDICATION: Ileus TECHNIQUE: AP abdomen x-ray. COMPARISON: Abdominal radiograph March 22, 2017 FINDINGS: There is a nonspecific bowel gas pattern with no evidence of obstruction or pneumoperitoneum. No ab normal abdominal or pelvic calcifications are present. Feeding gastrostomy tube is seen superimpose d on the spine. The patient is status post left hip replacement. IMPRESSION: Unremarkable abdomen radiograph. .Eric Shabazz MD, MD Date Time Electronically viewed and signed by .Eric Shabazz MD, on 03/24/2017 10:39 .A/
--- NOTE | 2017-03-24 11:22 | PN ---
Date/Time of Note Date/Time of Note DATE: 03/24/17 TIME: 11:12 Assessment/Plan Lines/Catheters IV C[facility]ter Type (from [facility]): Peripheral IV Urinary Cath still in place: No Assessment/Plan Assessment/Plan - Hypokalemia- replet K, am labs. - Possible sepsis with leukocytosis tachycardia. Patient was transferred to telemetry. Cardiology consult requested. - Possible HCAP, continue broad-spectrum antibiotics, Dr. Pitt is following in infection disease consultation. Dr. Roche is asked to see patients in pulmonology consultation. Continue bronchodilators and oxygen supplementation. - Sinus tachycardia, most likely secondary to dehydration. Continue IV fluids. - Left hand swelling. Continue broad-spectrum antibiotics for possible cellulitis. - Seizure disorder. Continue Keppra. - Dysphagia with percutaneous endoscopic gastrostomy. Continue G-tube feeding , aspiration precautions. - Diabetes mellitus type 2. Continue NPH. - Dyslipidemia. Continue statins. - Hypertension. The patient is currently normotensive. - Schizophrenia and bipolar disorder. - no meds notes - will get social work program coordinator consult-for tele psych- fu. Continue Lovenox for deep venous thrombosis prophylaxis and Pepcid for peptic ulcer disease prophylaxis. Further recommendations based on clinical course. Total critical care spent is 30 mins- Plan of care discussed with Dr. Aly/staff/labs/meds review. Subjective 24 Hr Interval Summary Free Text/Dictation nad. patient is alert/awake, seen by tele psych yesterday, patients states she wants to go home.dw staff. Eyes: no complaints ENT: no complaints Respiratory: no complaints Cardiovascular: no complaints Gastrointestinal: no complaints Genitourinary: no complaints Musculoskeletal: no complaints Exam/Review of Systems Vital Signs Vitals Vital Signs Date Time Temp Pulse Resp B/P Pulse Ox O2 Delivery O2 Flow Rate FiO2 03/24/17 08:01 120 29 95 Simple Mask 10.0 03/24/17 07:00 98.1 136/65 Intake and Output 03/23/17 03/23/17 03/24/17 15:00 23:00 07:00 Intake Total 0 ml 550 ml 750 ml Output Total 100 ml Balance 0 ml 550 ml 650 ml Exam Constitutional: alert, well developed Psych: no complaints Eyes: EOMI, nl sclera ENMT: nl external ears & nose Neck: non-tender Respiratory: clear to auscultation Cardiovascular: nl pulses Gastrointestinal: non-tender, soft Musculoskeletal: muscle weakness Neurological: confused, nl speech Lymph: nontender Results Result Diagram: 03/24/1730 03/24/17 0930 Results 24 hrs Laboratory Tests Test 03/23/17 12:56 03/23/17 18:26 03/23/17 19:35 03/23/17 21:13 Bedside Glucose 128 76 92 89 Test 03/23/17 23:54 03/24/17 05:00 03/24/17 05:21 03/24/17 09:30 Bedside Glucose 144 89 Blood Gas Specimen Source Blood arterial Arterial Blood Date Drawn 03/24/2017 4:40:09 AM Arterial Blood pH (Temp corrected) 7.485 H Arterial Blood pCO2 (Temp correct) 36.7 Arterial Blood pO2 (Temp corrected) 70.6 L Arterial Blood HCO3 27.0 H Arterial Blood Base Excess 3.5 H Arterial Blood Oxygen Saturation 93.9 L Ramez Test ACCEPTAB Arterial Blood Gas Puncture Site Right Radial Arterial Blood Carboxyhemoglobin 0.1 Arterial Blood Methemoglobin 0.1 Blood Gas A-a O2 Differential 324.1 H Oxyhemoglobin Percent 93.7 Total Hemoglobin 10.3 L Blood Gas Temperature 37.0 Blood Gas Modality MASK - SIMPLE FiO2 61.0 Blood Gas Notified Whom MM Blood Gas Notified Time 03/24/2017 5:05:43 AM White Blood Count 11.7 #H Red Blood Count 2.79 L Hemoglobin 8.7 L Hematocrit 27.2 L Mean Corpuscular Volume 97.5 Mean Corpuscular Hemoglobin 31.2 Mean Corpuscular Hemoglobin Concent 32.0 Red Cell Distribution Width 15.0 H Platelet Count 365 Mean Platelet Volume 11.1 H Neutrophils % 76.4 Lymphocytes % 13.2 L Monocytes % 2.6 Eosinophils % 6.2 Basophils % 0.2 Nucleated Red Blood Cells % 0.0 Neutrophils # 8.9 H Lymphocytes # 1.5 Monocytes # 0.3 Eosinophils # 0.7 H Basophils # 0.0 Nucleated Red Blood Cells # 0.0 Sodium Level 144 Potassium Level 3.2 L Chloride Level 103 Carbon Dioxide Level 27 Anion Gap 17 H Blood Urea Nitrogen 19 # Creatinine 0.49 Glucose Level 150 Calcium Level 9.1 Total Bilirubin 0.2 Direct Bilirubin 0.00 Indirect Bilirubin 0.2 Aspartate Amino Transf (AST/SGOT) 87 H Alanine Aminotransferase (ALT/SGPT) 149 H Alkaline Phosphatase 290 H Total Protein 6.9 Albumin 3.0 L Globulin 3.90 H Albumin/Globulin Ratio 0.76 Medications Medications Current Medications Atorvastatin Calcium (Lipitor) 40 mg HS GTB Last administered on 03/23/17 20: 07; Admin Dose 40 MG; Start 03/19/17 at 21:00 Bisacodyl (Dulcolax Supp) 10 mg DAILY PRN [place] PRN; Start 03/19/17 at 05:00 Enoxaparin Sodium (Lovenox) 40 mg DAILY SC Last administered on 03/24/17 09:03 ; Admin Dose 40 MG; Start 03/19/17 at 09:00 Furosemide (Lasix) 20 mg DAILY@06 GTB Last administered on 03/24/17 05:13; Admin Dose 20 MG; Start 03/19/17 at 06:00 Tramadol HCl (Ultram) 50 mg BID GTB Last administered on 03/24/17 08:54; Admin Dose 50 MG; Start 03/19/17 at 09:00 Zinc Sulfate (Zinc Sulfate) 220 mg DAILY GTB Last administered on 03/24/17 08: 48; Admin Dose 220 MG; Start 03/19/17 at 09:00 Acetaminophen (Tylenol Liquid) 650 mg Q4H PRN GTB MILD PAIN LEVEL 1-3 Last administered on 03/23/17 22:30; Admin Dose 650 MG; Start 03/19/17 at 06:00 Acetaminophen (Tylenol Liquid) 1,000 mg Q4H PRN PO PAIN LEVEL 4-6/10 Last administered on 03/22/17 03:30; Admin Dose 1,000 MG; Start 03/19/17 at 06:00 Insulin Aspart (Novolog Insulin Pen) NOVOLOG *MODERATE* ALGORI... Q6 SC Last administered on 03/23/17 23:59; Admin Dose 2 UNIT; Start 03/19/17 at 06:00 Miscellaneous Information 1 ea NOTE XX ; Start 03/19/17 at 06:00 Glucose (Glutose) 15 gm Q15M PRN PO DECREASED GLUCOSE; Start 03/19/17 at 06:00 Glucose (Glutose) 22.5 gm Q15M PRN PO DECREASED GLUCOSE; Start 03/19/17 at 06: 00 Dextrose (D50w Syringe) 25 ml Q15M PRN IV DECREASED GLUCOSE; Start 03/19/17 at 06:00 Dextrose (D50w Syringe) 50 ml Q15M PRN IV DECREASED GLUCOSE; Start 03/19/17 at 06:00 Glucagon (Glucagen) 1 mg Q15M PRN IM DECREASED GLUCOSE; Start 03/19/17 at 06:00 Glucose (Glutose) 15 gm Q15M PRN BUCCAL DECREASED GLUCOSE; Start 03/19/17 at 06 :00 Levetiracetam (Keppra Liquid) 500 mg BID GTB Last administered on 03/24/17 08: 48; Admin Dose 500 MG; Start 03/19/17 at 09:00 Multivitamins/ Minerals (Theragran-M) 1 tab BID GTB Last administered on 08:48; Admin Dose 1 TAB; Start 03/19/17 at 09:00 Miscellaneous Information (Pending Santyl Order For Wound Care) This patient mahmood... PRN PRN XX WOUND CARE; Start 03/19/17 at 06:00 Sodium Biphosphate/ Sodium Phosphate (Fleet Enema) 133 ml DAILY PRN [place] CONSTIPATION; Start 03/19/17 at 06:30 Diltiazem HCl (Cardizem) 60 mg Q8 GTB Last administered on 03/24/17 05:13; Admin Dose 60 MG; Start 03/19/17 at 14:00 Insulin Glargine 24 unit 24 unit DAILY@20 SC Last administered on 03/23/17 19: 55; Admin Dose 24 UNIT; Start 03/21/17 at 20:00 Imipenem/ Cilastatin Sodium (Primaxin 500 Mg/ 100 ml (Pmx)) 100 ml @ 100 mls/ hr Q6 IVPB Last administered on 03/24/17 05:13; Admin Dose 100 MLS/HR; Start 03/22/17 at 00:00 Metoprolol Tartrate (Lopressor) 5 mg Q6 PRN IV TACHYCARDIA Last administered on 03/23/17 18:02; Admin Dose 5 MG; Start 03/22/17 at 10:30 Morphine Sulfate 1 mg 1 mg Q4H PRN IV severe pain Last administered on 01:04; Admin Dose 1 MG; Start 03/22/17 at 12:00 Vancomycin HCl/ Sodium Chloride (Vancocin/NS) 150 ml @ 75 mls/hr Q12H IVPB Last administered on 03/24/17 05:12; Admin Dose 75 MLS/HR; Start 03/22/17 at 18 :00 Ondansetron HCl (Zofran Inj) 4 mg Q4H PRN IV NAUSEA AND/OR VOMITING Last administered on 03/24/17 07:45; Admin Dose 4 MG; Start 03/23/17 at 05:00 Polyethylene Glycol 17 gm 17 gm DAILY GTB Last administered on 03/24/17 08:47 ; Admin Dose 17 GM; Start 03/23/17 at 12:00 Potassium Cl/ Dextrose/Lact Ringer's (D5-Lr + KCl 20 Meq) 1,000 ml @ 100 mls/ hr Q10H IV Last administered on 03/24/17 07:47; Admin Dose 100 MLS/HR; Start 03/23/17 at 12:00 Metoclopramide HCl (Reglan) 10 mg BID IV ; Start 03/24/17 at 10:30 MICHAEL COLINDRES Mar 24, 2017 11:22
[2017-03-24] MEDS ORDERED: PANTOPRAZOLE 40 MG INJ IV ONE (11:30)
[2017-03-24] MEDS: METOCLOPRAMIDE 10 MG INJ IV SCH ×2 (11:35→21:04)
[2017-03-24] MEDS ORDERED: POTASSIUM CHLORIDE 20 MEQ in SOD CHLORIDE 0.9% 100 ML IVPB ONE (12:00)
--- NOTE | 2017-03-24 12:38 | CONS ---
Date/Time of Note Date/Time of Note DATE: 03/24/17 TIME: 12:37 Assessment/Plan Assessment/Plan Chief Complaint/Hosp Course 1. Probable hcap 2. Severe Sepsis 3. right hand swelling w/u in progress 4. multiple chronic medical problems: chizophrenia and bipolar disorder, hypertension, diabetes, dyslipidemia, dysphagia with G-tube placement and history of tonic-clonic seizures, thalassemia, urinary tract infection r: f/u little cx await procalc lactic acid serially cont. vanco/imipenm monitor hand clinically consideration of hand mri based on clinical response Problems: Consultation Date/Type/Reason Admit Date/Time Mar 19, 2017 at 01:44 Type of Consultation: id Exam/Review of Systems Vital Signs Vitals Vital Signs Date Time Temp Pulse Resp B/P Pulse Ox O2 Delivery O2 Flow Rate FiO2 03/24/17 12:00 141 03/24/17 08:01 29 95 Simple Mask 10.0 03/24/17 07:00 98.1 136/65 Intake and Output 03/23/17 03/23/17 03/24/17 15:00 23:00 07:00 Intake Total 0 ml 550 ml 750 ml Output Total 100 ml Balance 0 ml 550 ml 650 ml Exam Constitutional: distress, non-verbal Psych: no complaints Head: atraumatic, normocephalic Eyes: EOMI, PERRL, nl conjunctiva, nl lids, nl sclera ENMT: nl external ears & nose, nl lips & teeth, nl nasal mucosa & septum Respiratory: clear to auscultation Gastrointestinal: nl liver, spleen, non-tender, soft Musculoskeletal: nl extremities to inspection, nl gait and stance Results Result Diagram: 03/24/1792903/24/17 0930 Results 24 hrs Laboratory Tests Test 03/23/17 12:56 03/23/17 18:26 03/23/17 19:35 03/23/17 21:13 Bedside Glucose 128 76 92 89 Test 03/23/17 23:54 03/24/17 05:00 03/24/17 05:21 03/24/17 09:30 Bedside Glucose 144 89 Blood Gas Specimen Source Blood arterial Arterial Blood Date Drawn 03/24/2017 4:40:09 AM Arterial Blood pH (Temp corrected) 7.485 H Arterial Blood pCO2 (Temp correct) 36.7 Arterial Blood pO2 (Temp corrected) 70.6 L Arterial Blood HCO3 27.0 H Arterial Blood Base Excess 3.5 H Arterial Blood Oxygen Saturation 93.9 L Ramez Test ACCEPTAB Arterial Blood Gas Puncture Site Right Radial Arterial Blood Carboxyhemoglobin 0.1 Arterial Blood Methemoglobin 0.1 Blood Gas A-a O2 Differential 324.1 H Oxyhemoglobin Percent 93.7 Total Hemoglobin 10.3 L Blood Gas Temperature 37.0 Blood Gas Modality MASK - SIMPLE FiO2 61.0 Blood Gas Notified Whom MM Blood Gas Notified Time 03/24/2017 5:05:43 AM White Blood Count 11.7 #H Red Blood Count 2.79 L Hemoglobin 8.7 L Hematocrit 27.2 L Mean Corpuscular Volume 97.5 Mean Corpuscular Hemoglobin 31.2 Mean Corpuscular Hemoglobin Concent 32.0 Red Cell Distribution Width 15.0 H Platelet Count 365 Mean Platelet Volume 11.1 H Neutrophils % 76.4 Lymphocytes % 13.2 L Monocytes % 2.6 Eosinophils % 6.2 Basophils % 0.2 Nucleated Red Blood Cells % 0.0 Neutrophils # 8.9 H Lymphocytes # 1.5 Monocytes # 0.3 Eosinophils # 0.7 H Basophils # 0.0 Nucleated Red Blood Cells # 0.0 Sodium Level 144 Potassium Level 3.2 L Chloride Level 103 Carbon Dioxide Level 27 Anion Gap 17 H Blood Urea Nitrogen 19 # Creatinine 0.49 Glucose Level 150 Calcium Level 9.1 Total Bilirubin 0.2 Direct Bilirubin 0.00 Indirect Bilirubin 0.2 Aspartate Amino Transf (AST/SGOT) 87 H Alanine Aminotransferase (ALT/SGPT) 149 H Alkaline Phosphatase 290 H Total Protein 6.9 Albumin 3.0 L Globulin 3.90 H Albumin/Globulin Ratio 0.76 Test 03/24/17 12:10 Bedside Glucose 208 Medications Medications Current Medications Atorvastatin Calcium (Lipitor) 40 mg HS GTB Last administered on 03/23/17 20: 07; Admin Dose 40 MG; Start 03/19/17 at 21:00 Bisacodyl (Dulcolax Supp) 10 mg DAILY PRN [place] PRN; Start 03/19/17 at 05:00 Enoxaparin Sodium (Lovenox) 40 mg DAILY SC Last administered on 03/24/17 09:03 ; Admin Dose 40 MG; Start 03/19/17 at 09:00 Furosemide (Lasix) 20 mg DAILY@06 GTB Last administered on 03/24/17 05:13; Admin Dose 20 MG; Start 03/19/17 at 06:00 Tramadol HCl (Ultram) 50 mg BID GTB Last administered on 03/24/17 08:54; Admin Dose 50 MG; Start 03/19/17 at 09:00 Zinc Sulfate (Zinc Sulfate) 220 mg DAILY GTB Last administered on 03/24/17 08: 48; Admin Dose 220 MG; Start 03/19/17 at 09:00 Acetaminophen (Tylenol Liquid) 650 mg Q4H PRN GTB MILD PAIN LEVEL 1-3 Last administered on 03/23/17 22:30; Admin Dose 650 MG; Start 03/19/17 at 06:00 Acetaminophen (Tylenol Liquid) 1,000 mg Q4H PRN PO PAIN LEVEL 4-6/10 Last administered on 03/22/17 03:30; Admin Dose 1,000 MG; Start 03/19/17 at 06:00 Insulin Aspart (Novolog Insulin Pen) NOVOLOG *MODERATE* ALGORI... Q6 SC Last administered on 03/24/17 12:16; Admin Dose 4 UNIT; Start 03/19/17 at 06:00 Miscellaneous Information 1 ea NOTE XX ; Start 03/19/17 at 06:00 Glucose (Glutose) 15 gm Q15M PRN PO DECREASED GLUCOSE; Start 03/19/17 at 06:00 Glucose (Glutose) 22.5 gm Q15M PRN PO DECREASED GLUCOSE; Start 03/19/17 at 06: 00 Dextrose (D50w Syringe) 25 ml Q15M PRN IV DECREASED GLUCOSE; Start 03/19/17 at 06:00 Dextrose (D50w Syringe) 50 ml Q15M PRN IV DECREASED GLUCOSE; Start 03/19/17 at 06:00 Glucagon (Glucagen) 1 mg Q15M PRN IM DECREASED GLUCOSE; Start 03/19/17 at 06:00 Glucose (Glutose) 15 gm Q15M PRN BUCCAL DECREASED GLUCOSE; Start 03/19/17 at 06 :00 Levetiracetam (Keppra Liquid) 500 mg BID GTB Last administered on 03/24/17 08: 48; Admin Dose 500 MG; Start 03/19/17 at 09:00; Status Future Hold Miscellaneous Information (Pending Santyl Order For Wound Care) This patient mahmood... PRN PRN XX WOUND CARE; Start 03/19/17 at 06:00 Sodium Biphosphate/ Sodium Phosphate (Fleet Enema) 133 ml DAILY PRN [place] CONSTIPATION; Start 03/19/17 at 06:30 Diltiazem HCl (Cardizem) 60 mg Q8 GTB Last administered on 03/24/17 05:13; Admin Dose 60 MG; Start 03/19/17 at 14:00 Insulin Glargine 24 unit 24 unit DAILY@20 SC Last administered on 03/23/17 19: 55; Admin Dose 24 UNIT; Start 03/21/17 at 20:00 Imipenem/ Cilastatin Sodium (Primaxin 500 Mg/ 100 ml (Pmx)) 100 ml @ 100 mls/ hr Q6 IVPB Last administered on 03/24/17 11:35; Admin Dose 100 MLS/HR; Start 03/22/17 at 00:00 Metoprolol Tartrate (Lopressor) 5 mg Q6 PRN IV TACHYCARDIA Last administered on 03/23/17 18:02; Admin Dose 5 MG; Start 03/22/17 at 10:30 Morphine Sulfate 1 mg 1 mg Q4H PRN IV severe pain Last administered on 01:04; Admin Dose 1 MG; Start 03/22/17 at 12:00 Vancomycin HCl/ Sodium Chloride (Vancocin/NS) 150 ml @ 75 mls/hr Q12H IVPB Last administered on 03/24/17 05:12; Admin Dose 75 MLS/HR; Start 03/22/17 at 18 :00 Ondansetron HCl (Zofran Inj) 4 mg Q4H PRN IV NAUSEA AND/OR VOMITING Last administered on 03/24/17 07:45; Admin Dose 4 MG; Start 03/23/17 at 05:00 Polyethylene Glycol 17 gm 17 gm DAILY GTB Last administered on 03/24/17 08:47 ; Admin Dose 17 GM; Start 03/23/17 at 12:00 Potassium Cl/ Dextrose/Lact Ringer's (D5-Lr + KCl 20 Meq) 1,000 ml @ 100 mls/ hr Q10H IV Last administered on 03/24/17 07:47; Admin Dose 100 MLS/HR; Start 03/23/17 at 12:00 Metoclopramide HCl 10 mg 10 mg BID IV Last administered on 03/24/17t 11:35; Admin Dose 10 MG; Start 03/24/17 at 10:30 Potassium Chloride/Sodium Chloride (KCl/NS) 110 ml @ 55 mls/hr ONCE ONCE IVPB ; Start 03/24/17 at 12:00; Stop 03/24/17 at 13:59 Multivitamins 5 ml 5 ml DAILY GTB ; Start 03/25/17 at 09:00 Levetiracetam/ Sodium Chloride (Keppra Iv/NS) 105 ml @ 430 mls/hr Q12 IVPB ; Start 03/24/17 at 21:00 Pantoprazole (Protonix Iv) 40 mg DAILY@06 IV ; Start 03/25/17 at 06:00 BENITO THOMAS MD Mar 24, 2017 12:38
[2017-03-24] MEDS ORDERED: MAGNESIUM SULFATE 2 GM/50 ML 50 ML IVPB ONE (13:30)
[2017-03-24] MEDS ORDERED: POTASSIUM CHLORIDE 20 MEQ POWDER FOR ORAL SOLN JT ONE (13:30)
--- NOTE | 2017-03-24 13:30 | CONS ---
Date/Time of Note Date/Time of Note DATE: 03/24/17 TIME: 13:20 Assessment/Plan Assessment/Plan Additional Assessment/Plan Sepsis Sinus tachycardia History of paroxysmal atrial tachycardia Preserved ejection fraction Psychiatric disorder Seizure disorder Volume overload -Patient with dyspnea and chest x-ray with increased pulmonary vascular congestion. Would switch Lasix to IV low dose as blood pressure permits. Maintain potassium above 4.0 and magnesium above 2.0. Consultation Date/Type/Reason Admit Date/Time Mar 19, 2017 at 01:44 Initial Consult Date 03/22/17 Type of Consultation: cv 24 HR Interval Summary Free Text/Dictation Patient continues to complain of shortness of breath, denies chest pain Exam/Review of Systems Vital Signs Vitals Vital Signs Date Time Temp Pulse Resp B/P Pulse Ox O2 Delivery O2 Flow Rate FiO2 03/24/17 12:43 94 Nasal Cannula 6.0 03/24/17 12:00 141 03/24/17 08:01 29 03/24/17 07:00 98.1 136/65 Intake and Output 03/23/17 03/23/17 03/24/17 15:00 23:00 07:00 Intake Total 0 ml 550 ml 750 ml Output Total 100 ml Balance 0 ml 550 ml 650 ml Exam Mild dyspnea with extensively speaking Constitutional: alert, oriented Head: normocephalic Respiratory: other (Coarse breath sounds bilaterally and decreased at the bases , no wheezing) Cardiovascular: other (S1-S2 heard), regular rate and rhythm (Tachycardic) Gastrointestinal: bowel sounds, non-tender, soft Extremities: other (No edema) Results Result Diagram: 03/24/1730 03/24/17 0930 Results 24 hrs Laboratory Tests Test 03/23/17 18:26 03/23/17 19:35 03/23/17 21:13 03/23/17 23:54 Bedside Glucose 76 92 89 144 Test 03/24/17 05:00 03/24/17 05:21 03/24/17 09:30 03/24/17 12:10 Blood Gas Specimen Source Blood arterial Arterial Blood Date Drawn 03/24/2017 4:40:09 AM Arterial Blood pH (Temp corrected) 7.485 H Arterial Blood pCO2 (Temp correct) 36.7 Arterial Blood pO2 (Temp corrected) 70.6 L Arterial Blood HCO3 27.0 H Arterial Blood Base Excess 3.5 H Arterial Blood Oxygen Saturation 93.9 L Ramez Test ACCEPTAB Arterial Blood Gas Puncture Site Right Radial Arterial Blood Carboxyhemoglobin 0.1 Arterial Blood Methemoglobin 0.1 Blood Gas A-a O2 Differential 324.1 H Oxyhemoglobin Percent 93.7 Total Hemoglobin 10.3 L Blood Gas Temperature 37.0 Blood Gas Modality MASK - SIMPLE FiO2 61.0 Blood Gas Notified Whom MM Blood Gas Notified Time 03/24/2017 5:05:43 AM Bedside Glucose 89 208 White Blood Count 11.7 #H Red Blood Count 2.79 L Hemoglobin 8.7 L Hematocrit 27.2 L Mean Corpuscular Volume 97.5 Mean Corpuscular Hemoglobin 31.2 Mean Corpuscular Hemoglobin Concent 32.0 Red Cell Distribution Width 15.0 H Platelet Count 365 Mean Platelet Volume 11.1 H Neutrophils % 76.4 Lymphocytes % 13.2 L Monocytes % 2.6 Eosinophils % 6.2 Basophils % 0.2 Nucleated Red Blood Cells % 0.0 Neutrophils # 8.9 H Lymphocytes # 1.5 Monocytes # 0.3 Eosinophils # 0.7 H Basophils # 0.0 Nucleated Red Blood Cells # 0.0 Sodium Level 144 Potassium Level 3.2 L Chloride Level 103 Carbon Dioxide Level 27 Anion Gap 17 H Blood Urea Nitrogen 19 # Creatinine 0.49 Glucose Level 150 Calcium Level 9.1 Total Bilirubin 0.2 Direct Bilirubin 0.00 Indirect Bilirubin 0.2 Aspartate Amino Transf (AST/SGOT) 87 H Alanine Aminotransferase (ALT/SGPT) 149 H Alkaline Phosphatase 290 H Total Protein 6.9 Albumin 3.0 L Globulin 3.90 H Albumin/Globulin Ratio 0.76 Medications Medications Current Medications Atorvastatin Calcium (Lipitor) 40 mg HS GTB Last administered on 03/23/17 20: 07; Admin Dose 40 MG; Start 03/19/17 at 21:00 Bisacodyl (Dulcolax Supp) 10 mg DAILY PRN [place] PRN; Start 03/19/17 at 05:00 Enoxaparin Sodium (Lovenox) 40 mg DAILY SC Last administered on 03/24/17 09:03 ; Admin Dose 40 MG; Start 03/19/17 at 09:00 Furosemide (Lasix) 20 mg DAILY@06 GTB Last administered on 03/24/17 05:13; Admin Dose 20 MG; Start 03/19/17 at 06:00 Tramadol HCl (Ultram) 50 mg BID GTB Last administered on 03/24/17 08:54; Admin Dose 50 MG; Start 03/19/17 at 09:00 Zinc Sulfate (Zinc Sulfate) 220 mg DAILY GTB Last administered on 03/24/17 08: 48; Admin Dose 220 MG; Start 03/19/17 at 09:00 Acetaminophen (Tylenol Liquid) 650 mg Q4H PRN GTB MILD PAIN LEVEL 1-3 Last administered on 03/23/17 22:30; Admin Dose 650 MG; Start 03/19/17 at 06:00 Acetaminophen (Tylenol Liquid) 1,000 mg Q4H PRN PO PAIN LEVEL 4-6/10 Last administered on 03/22/17 03:30; Admin Dose 1,000 MG; Start 03/19/17 at 06:00 Insulin Aspart (Novolog Insulin Pen) NOVOLOG *MODERATE* ALGORI... Q6 SC Last administered on 03/24/17 12:16; Admin Dose 4 UNIT; Start 03/19/17 at 06:00 Miscellaneous Information 1 ea NOTE XX ; Start 03/19/17 at 06:00 Glucose (Glutose) 15 gm Q15M PRN PO DECREASED GLUCOSE; Start 03/19/17 at 06:00 Glucose (Glutose) 22.5 gm Q15M PRN PO DECREASED GLUCOSE; Start 03/19/17 at 06: 00 Dextrose (D50w Syringe) 25 ml Q15M PRN IV DECREASED GLUCOSE; Start 03/19/17 at 06:00 Dextrose (D50w Syringe) 50 ml Q15M PRN IV DECREASED GLUCOSE; Start 03/19/17 at 06:00 Glucagon (Glucagen) 1 mg Q15M PRN IM DECREASED GLUCOSE; Start 03/19/17 at 06:00 Glucose (Glutose) 15 gm Q15M PRN BUCCAL DECREASED GLUCOSE; Start 03/19/17 at 06 :00 Levetiracetam (Keppra Liquid) 500 mg BID GTB Last administered on 03/24/17 08: 48; Admin Dose 500 MG; Start 03/19/17 at 09:00; Status Future Hold Miscellaneous Information (Pending Santyl Order For Wound Care) This patient mahmood... PRN PRN XX WOUND CARE; Start 03/19/17 at 06:00 Sodium Biphosphate/ Sodium Phosphate (Fleet Enema) 133 ml DAILY PRN [place] CONSTIPATION; Start 03/19/17 at 06:30 Diltiazem HCl (Cardizem) 60 mg Q8 GTB Last administered on 03/24/17 05:13; Admin Dose 60 MG; Start 03/19/17 at 14:00 Insulin Glargine 24 unit 24 unit DAILY@20 SC Last administered on 03/23/17 19: 55; Admin Dose 24 UNIT; Start 03/21/17 at 20:00 Imipenem/ Cilastatin Sodium (Primaxin 500 Mg/ 100 ml (Pmx)) 100 ml @ 100 mls/ hr Q6 IVPB Last administered on 03/24/17 11:35; Admin Dose 100 MLS/HR; Start 03/22/17 at 00:00 Metoprolol Tartrate (Lopressor) 5 mg Q6 PRN IV TACHYCARDIA Last administered on 03/23/17 18:02; Admin Dose 5 MG; Start 03/22/17 at 10:30 Morphine Sulfate 1 mg 1 mg Q4H PRN IV severe pain Last administered on 01:04; Admin Dose 1 MG; Start 03/22/17 at 12:00 Vancomycin HCl/ Sodium Chloride (Vancocin/NS) 150 ml @ 75 mls/hr Q12H IVPB Last administered on 03/24/17 05:12; Admin Dose 75 MLS/HR; Start 03/22/17 at 18 :00 Ondansetron HCl (Zofran Inj) 4 mg Q4H PRN IV NAUSEA AND/OR VOMITING Last administered on 03/24/17 07:45; Admin Dose 4 MG; Start 03/23/17 at 05:00 Polyethylene Glycol 17 gm 17 gm DAILY GTB Last administered on 03/24/17 08:47 ; Admin Dose 17 GM; Start 03/23/17 at 12:00 Potassium Cl/ Dextrose/Lact Ringer's (D5-Lr + KCl 20 Meq) 1,000 ml @ 100 mls/ hr Q10H IV Last administered on 03/24/17 07:47; Admin Dose 100 MLS/HR; Start 03/23/17 at 12:00 Metoclopramide HCl 10 mg 10 mg BID IV Last administered on 03/24/17 11:35; Admin Dose 10 MG; Start 03/24/17 at 10:30 Potassium Chloride/Sodium Chloride (KCl/NS) 110 ml @ 55 mls/hr ONCE ONCE IVPB Last administered on 03/24/17t 13:16; Admin Dose 55 MLS/HR; Start 03/24/17 at 12:00; Stop 03/24/17 at 13:59 Multivitamins 5 ml 5 ml DAILY GTB ; Start 03/25/17 at 09:00 Levetiracetam/ Sodium Chloride (Keppra Iv/NS) 105 ml @ 430 mls/hr Q12 IVPB ; Start 03/24/17 at 21:00 Pantoprazole (Protonix Iv) 40 mg DAILY@06 IV ; Start 03/25/17 at 06:00 Gamal Coronel DO Mar 24, 2017 13:30
--- NOTE | 2017-03-24 13:56 | CONS ---
Date/Time of Note Date/Time of Note DATE: 03/24/17 TIME: 13:54 Consult Date/Type/Reason Admit Date/Time Mar 19, 2017 at 01:44 Initial Consult Date 03/22/17 Type of Consultation: Pulm/CCM Subjective Tachycardic, but resp status improved. Objective Vital Signs Date Time Temp Pulse Resp B/P Pulse Ox O2 Delivery O2 Flow Rate FiO2 03/24/17 13:15 140 25 92 03/24/17 13:00 126/69 03/24/17 12:43 Nasal Cannula 6.0 03/24/17 12:00 98.5 Intake and Output 03/23/17 03/23/17 03/24/17 15:00 23:00 07:00 Intake Total 0 ml 550 ml 750 ml Output Total 100 ml Balance 0 ml 550 ml 650 ml Exam HEENT: Neck supple; no JVD; no LAD CVS: tachy, S1 and S2 CHEST: + rhonchi and rales b/l ABD: Soft, NT, + BS, G tube in place EXT: No c/c/e Results/Medications Result Diagram: 03/24/1730 03/24/17 0930 Results 24 hrs Laboratory Tests Test 03/23/17 18:26 03/23/17 19:35 03/23/17 21:13 03/23/17 23:54 Bedside Glucose 76 92 89 144 Test 03/24/17 05:00 03/24/17 05:21 03/24/17 09:30 03/24/17 12:10 Blood Gas Specimen Source Blood arterial Arterial Blood Date Drawn 03/24/2017 4:40:09 AM Arterial Blood pH (Temp corrected) 7.485 H Arterial Blood pCO2 (Temp correct) 36.7 Arterial Blood pO2 (Temp corrected) 70.6 L Arterial Blood HCO3 27.0 H Arterial Blood Base Excess 3.5 H Arterial Blood Oxygen Saturation 93.9 L Ramez Test ACCEPTAB Arterial Blood Gas Puncture Site Right Radial Arterial Blood Carboxyhemoglobin 0.1 Arterial Blood Methemoglobin 0.1 Blood Gas A-a O2 Differential 324.1 H Oxyhemoglobin Percent 93.7 Total Hemoglobin 10.3 L Blood Gas Temperature 37.0 Blood Gas Modality MASK - SIMPLE FiO2 61.0 Blood Gas Notified Whom MM Blood Gas Notified Time 03/24/2017 5:05:43 AM Bedside Glucose 89 208 White Blood Count 11.7 #H Red Blood Count 2.79 L Hemoglobin 8.7 L Hematocrit 27.2 L Mean Corpuscular Volume 97.5 Mean Corpuscular Hemoglobin 31.2 Mean Corpuscular Hemoglobin Concent 32.0 Red Cell Distribution Width 15.0 H Platelet Count 365 Mean Platelet Volume 11.1 H Neutrophils % 76.4 Lymphocytes % 13.2 L Monocytes % 2.6 Eosinophils % 6.2 Basophils % 0.2 Nucleated Red Blood Cells % 0.0 Neutrophils # 8.9 H Lymphocytes # 1.5 Monocytes # 0.3 Eosinophils # 0.7 H Basophils # 0.0 Nucleated Red Blood Cells # 0.0 Sodium Level 144 Potassium Level 3.2 L Chloride Level 103 Carbon Dioxide Level 27 Anion Gap 17 H Blood Urea Nitrogen 19 # Creatinine 0.49 Glucose Level 150 Calcium Level 9.1 Total Bilirubin 0.2 Direct Bilirubin 0.00 Indirect Bilirubin 0.2 Aspartate Amino Transf (AST/SGOT) 87 H Alanine Aminotransferase (ALT/SGPT) 149 H Alkaline Phosphatase 290 H Total Protein 6.9 Albumin 3.0 L Globulin 3.90 H Albumin/Globulin Ratio 0.76 Medications Current Medications Atorvastatin Calcium (Lipitor) 40 mg HS GTB Last administered on 03/23/17 20: 07; Admin Dose 40 MG; Start 03/19/17 at 21:00 Bisacodyl (Dulcolax Supp) 10 mg DAILY PRN GA PRN; Start 03/19/17 at 05:00 Enoxaparin Sodium (Lovenox) 40 mg DAILY SC Last administered on 03/24/17 09:03 ; Admin Dose 40 MG; Start 03/19/17 at 09:00 Tramadol HCl (Ultram) 50 mg BID GTB Last administered on 03/24/17 08:54; Admin Dose 50 MG; Start 03/19/17 at 09:00 Zinc Sulfate (Zinc Sulfate) 220 mg DAILY GTB Last administered on 03/24/17 08: 48; Admin Dose 220 MG; Start 03/19/17 at 09:00 Acetaminophen (Tylenol Liquid) 650 mg Q4H PRN GTB MILD PAIN LEVEL 1-3 Last administered on 03/23/17 22:30; Admin Dose 650 MG; Start 03/19/17 at 06:00 Acetaminophen (Tylenol Liquid) 1,000 mg Q4H PRN PO PAIN LEVEL 4-6/10 Last administered on 03/22/17 03:30; Admin Dose 1,000 MG; Start 03/19/17 at 06:00 Insulin Aspart (Novolog Insulin Pen) NOVOLOG *MODERATE* ALGORI... Q6 SC Last administered on 03/24/17 12:16; Admin Dose 4 UNIT; Start 03/19/17 at 06:00 Miscellaneous Information 1 ea NOTE XX ; Start 03/19/17 at 06:00 Glucose (Glutose) 15 gm Q15M PRN PO DECREASED GLUCOSE; Start 03/19/17 at 06:00 Glucose (Glutose) 22.5 gm Q15M PRN PO DECREASED GLUCOSE; Start 03/19/17 at 06: 00 Dextrose (D50w Syringe) 25 ml Q15M PRN IV DECREASED GLUCOSE; Start 03/19/17 at 06:00 Dextrose (D50w Syringe) 50 ml Q15M PRN IV DECREASED GLUCOSE; Start 03/19/17 at 06:00 Glucagon (Glucagen) 1 mg Q15M PRN IM DECREASED GLUCOSE; Start 03/19/17 at 06:00 Glucose (Glutose) 15 gm Q15M PRN BUCCAL DECREASED GLUCOSE; Start 03/19/17 at 06 :00 Levetiracetam (Keppra Liquid) 500 mg BID GTB Last administered on 03/24/17 08: 48; Admin Dose 500 MG; Start 03/19/17 at 09:00; Status Future Hold Miscellaneous Information (Pending Santyl Order For Wound Care) This patient mahmood... PRN PRN XX WOUND CARE; Start 03/19/17 at 06:00 Sodium Biphosphate/ Sodium Phosphate (Fleet Enema) 133 ml DAILY PRN [place] CONSTIPATION; Start 03/19/17 at 06:30 Diltiazem HCl (Cardizem) 60 mg Q8 GTB Last administered on 03/24/17 05:13; Admin Dose 60 MG; Start 03/19/17 at 14:00 Insulin Glargine 24 unit 24 unit DAILY@20 SC Last administered on 03/23/17 19: 55; Admin Dose 24 UNIT; Start 03/21/17 at 20:00 Imipenem/ Cilastatin Sodium (Primaxin 500 Mg/ 100 ml (Pmx)) 100 ml @ 100 mls/ hr Q6 IVPB Last administered on 03/24/17 11:35; Admin Dose 100 MLS/HR; Start 03/22/17 at 00:00 Metoprolol Tartrate (Lopressor) 5 mg Q6 PRN IV TACHYCARDIA Last administered on 03/23/17 18:02; Admin Dose 5 MG; Start 03/22/17 at 10:30 Morphine Sulfate 1 mg 1 mg Q4H PRN IV severe pain Last administered on 01:04; Admin Dose 1 MG; Start 03/22/17 at 12:00 Vancomycin HCl/ Sodium Chloride (Vancocin/NS) 150 ml @ 75 mls/hr Q12H IVPB Last administered on 03/24/17 05:12; Admin Dose 75 MLS/HR; Start 03/22/17 at 18 :00 Ondansetron HCl (Zofran Inj) 4 mg Q4H PRN IV NAUSEA AND/OR VOMITING Last administered on 03/24/17 07:45; Admin Dose 4 MG; Start 03/23/17 at 05:00 Polyethylene Glycol (Miralax) 17 gm DAILY GTB Last administered on 03/24/17 08 :47; Admin Dose 17 GM; Start 03/23/17 at 12:00 Metoclopramide HCl 10 mg 10 mg BID IV Last administered on 03/24/17 11:35; Admin Dose 10 MG; Start 03/24/17 at 10:30 Potassium Chloride/Sodium Chloride (KCl/NS) 110 ml @ 55 mls/hr ONCE ONCE IVPB Last administered on 03/24/17 13:16; Admin Dose 55 MLS/HR; Start 03/24/17 at 12:00; Stop 03/24/17 at 13:59 Multivitamins 5 ml 5 ml DAILY GTB ; Start 03/25/17 at 09:00 Levetiracetam/ Sodium Chloride (Keppra Iv/NS) 105 ml @ 430 mls/hr Q12 IVPB ; Start 03/24/17 at 21:00 Pantoprazole 40 mg 40 mg DAILY@06 IV ; Start 03/25/17 at 06:00 Magnesium Sulfate (Magnesium Sulfate 2 Gm/50 ml) 50 ml @ 25 mls/hr ONCE ONCE IVPB ; Start 03/24/17 at 13:30; Stop 03/24/17 at 15:29 Assessment/Plan Additional Assessment/Plan IMP: 1. Hypoxemic respiratory failure, likely secondary to aspiration. 2. Volume overlaod 3. Nausea/vomiting 4. History of dysphagia with gastrostomy tube. 5. Sinus tachycardia, likely secondary to underlying infection 6. Psych history RECS: 1. Strict aspiration precautions. 2. Titrate FiO2 to SpO2 > 92% 3. Broad-spectrum antibiotic coverage 4. Lasix IV 5. F/U cultures HECTOR CHACKO MD Mar 24, 2017 13:56
[2017-03-24] MEDS: morphine 2 MG INJ IV PRN (14:30)
[2017-03-24] MEDS ORDERED: D5-NS + KCL 40 MEQ 1,000 ML IV SCH (17:00)
[2017-03-24] MEDS ORDERED: POTASSIUM CHLORIDE 40 MEQ in DEXTROSE 5%-0.9% NACL 1,000 ML IV SCH (17:30)
[2017-03-24] MEDS: FUROSEMIDE 20 MG INJ IV SCH (18:20)
[2017-03-24] MEDS: POTASSIUM CHLORIDE 40 MEQ in DEXTROSE 5%-0.9% NACL 1,000 ML IV SCH (18:34)
[2017-03-24] MEDS: INSULIN GLARGINE [LANtus] 3 ML PEN SC SCH (20:16)
[2017-03-24] MEDS: ATORVASTATIN 40 MG TAB GTB SCH (21:04)
[2017-03-24] MEDS: PANTOPRAZOLE 40 MG INJ IV SCH (21:06)
[2017-03-24] MEDS: LEVETIRACETAM IV 500 MG in SOD CHLORIDE 0.9% 100 ML IVPB SCH (21:20)
[2017-03-25] VITALS (17 sets, daily range): BP systolic 102–151; BP diastolic 50–111; PULSE 88–124; RESP 17–27
[2017-03-25] MEDS: INSULIN ASPART [NOVOLOG] 3 ML PEN SC SCH ×4 (00:17→18:21)
[2017-03-25] MEDS: IMIPENEM-CILAST 500MG IV (PMX) 100 ML IVPB SCH ×5 (00:18→18:29)
[2017-03-25] MEDS: ONDANSETRON 4 MG INJ IV PRN (01:28)
[2017-03-25] MEDS: POTASSIUM CHLORIDE 40 MEQ in DEXTROSE 5%-0.9% NACL 1,000 ML IV SCH ×2 (04:12→14:24)
[2017-03-25] MEDS: DILTIAZEM 60 MG TAB GTB SCH ×3 (05:52→22:01)
[2017-03-25] MEDS: FUROSEMIDE 20 MG INJ IV SCH ×2 (05:52→18:29)
[2017-03-25] MEDS ORDERED: PANTOPRAZOLE 40 MG INJ IV SCH (06:00)
[2017-03-25] MEDS: VANCOMYCIN 750 MG in SOD CHLORIDE 0.9% 150 ML IVPB SCH ×2 (06:23→22:31)
[2017-03-25 06:36] LABS: ADD SCAN DIFF NO
[2017-03-25 06:44] LABS: BASOPHIL # 0.1 10^3/ul (0.0-0.1); BASOPHILS % 0.7 % (0.0-2.0); EOSINOPHILS # 0.6 10^3/ul (0.0-0.5); EOSINOPHILS % 8.5 % (0.0-7.0); HEMATOCRIT 30.7 % (37.0-47.0); HEMOGLOBIN 9.4 g/dl (12.0-16.0); LYMPHOCYTES # 1.8 10^3/ul (0.8-2.9); LYMPHOCYTES % 24.6 % (15.0-51.0); MEAN CORPUSCULAR HEMOGLOBIN 30.7 pg (29.0-33.0); MEAN CORPUSCULAR HGB CONC 30.6 g/dl (32.0-37.0); MEAN CORPUSCULAR VOLUME 100.3 fl (82.0-101.0); MEAN PLATELET VOLUME 10.9 fl (7.4-10.4); MONOCYTE # 0.3 10^3/ul (0.3-0.9); MONOCYTES % 4.3 % (0.0-11.0); NEUTROPHIL # 4.4 10^3/ul (1.6-7.5); NEUTROPHILS % 58.9 % (39.0-77.0); NUCLEATED RED BLOOD CELLS% 0.4 /100WBC (0.0-0.0); PLATELET COUNT 423 10^3/UL (140-415); RED BLOOD COUNT 3.06 10^6/ul (4.20-5.40); RED CELL DISTRIBUTION WIDTH 15.2 % (11.5-14.5); WHITE BLOOD COUNT 7.4 10^3/ul (4.8-10.8)
[2017-03-25 06:55] LABS: IRON 22 ug/dl (35-150)
[2017-03-25 07:04] LABS: TOTAL IRON BINDING CAPACITY 159 ug/dl (241-421)
[2017-03-25 07:14] LABS: ALBUMIN 3.1 g/dl (3.3-4.9); POTASSIUM 4.1 mmol/L (3.5-5.1)
[2017-03-25 07:16] LABS: CREATININE 0.51 mg/dl (0.44-1.00)
[2017-03-25 07:17] LABS: ALBUMIN/GLOBULIN RATIO 0.77; BILIRUBIN,INDIRECT 0.2 mg/dl (0-1.1); BILIRUBIN,TOTAL 0.2 mg/dl (0.2-1.3); TOTAL PROTEIN 7.1 g/dl (6.1-8.1)
[2017-03-25] MEDS: ZINC SULFATE 220 MG CAP GTB SCH (08:15)
[2017-03-25] MEDS: MULTIVITAMINS 5 ML CUP GTB SCH (08:15)
[2017-03-25] MEDS: PANTOPRAZOLE 40 MG INJ IV SCH ×2 (08:15→21:50)
[2017-03-25] MEDS: METOCLOPRAMIDE 10 MG INJ IV SCH ×2 (08:15→21:51)
[2017-03-25] MEDS: POLYETHYLENE GLYCOL 17 GM PACKET GTB SCH (08:15)
[2017-03-25] MEDS: traMADol 50 MG TAB GTB SCH ×2 (08:15→22:02)
[2017-03-25] MEDS: ENOXAPARIN 40 MG/0.4 ML SYG SC SCH (08:17)
[2017-03-25 08:55] LABS: AADO2 Arterial 330.7 mmHg (7.0-24.0); Allen Test ACCEPTAB; Arterial Base Excess 5.9 mmol/L (-3.0-3); Arterial COHb 0.2 % (0.0-3.0); Arterial Fraction of Oxyhgb 90.8 % (93.0-99.0); Arterial MetHb 0.4 % (0.0-1.5); Arterial Total Hemglobin 8.6 g/dl (12.0-18.0); MODE MASK - SIMPLE
--- NOTE | 2017-03-25 09:21 | CONS ---
Date/Time of Note Date/Time of Note DATE: 03/25/17 TIME: 09:14 Assessment/Plan Assessment/Plan Chief Complaint/Hosp Course assessment/impression - severe sepsis due to probable HCAP vs. aspiration event - probable HCAP vs. 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 - continue imipenem (03/22/2017-); vancomycin (03/22/2017-) may be discontinued soon if she remains clinically stable management d/w Pt and her RN the critical care time I took to care for this Pt today was from 0900 to 0940 Problems: Consultation Date/Type/Reason Admit Date/Time Mar 19, 2017 at 01:44 Initial Consult Date 03/22/17 Type of Consultation: Pulm/CCM Exam/Review of Systems Vital Signs Vitals Vital Signs Date Time Temp Pulse Resp B/P Pulse Ox O2 Delivery O2 Flow Rate FiO2 03/25/17 08:00 98.5 88 17 102/50 93 Nasal Cannula 5.0 Intake and Output 03/24/17 03/24/17 03/25/17 14:59 22:59 06:59 Intake Total 1065 ml 1000 ml Output Total 2310 ml 1200 ml Balance -1245 ml -200 ml Exam Constitutional: frail Psych: confusion Head: atraumatic, normocephalic Eyes: nl conjunctiva, nl lids ENMT: mucosa pink and moist, other (poor dentition) Respiratory: clear to auscultation, diminished breath sounds Cardiovascular: nl pulses, regular rate and rhythm Gastrointestinal: soft Genitourinary - Female: other (FC) Extremities: normal pulses, No edema Neurological: confused Skin: ecchymosis (R hand, non-TTP) Results Result Diagram: 03/25/17 0600 03/25/17 0600 Results 24 hrs Laboratory Tests Test 03/24/17 09:30 03/24/17 12:10 03/24/17 17:55 03/24/17 20:14 White Blood Count 11.7 #H Red Blood Count 2.79 L Hemoglobin 8.7 L Hematocrit 27.2 L Mean Corpuscular Volume 97.5 Mean Corpuscular Hemoglobin 31.2 Mean Corpuscular Hemoglobin Concent 32.0 Red Cell Distribution Width 15.0 H Platelet Count 365 Mean Platelet Volume 11.1 H Neutrophils % 76.4 Lymphocytes % 13.2 L Monocytes % 2.6 Eosinophils % 6.2 Basophils % 0.2 Nucleated Red Blood Cells % 0.0 Neutrophils # 8.9 H Lymphocytes # 1.5 Monocytes # 0.3 Eosinophils # 0.7 H Basophils # 0.0 Nucleated Red Blood Cells # 0.0 Sodium Level 144 Potassium Level 3.2 L Chloride Level 103 Carbon Dioxide Level 27 Anion Gap 17 H Blood Urea Nitrogen 19 # Creatinine 0.49 Glucose Level 150 Calcium Level 9.1 Total Bilirubin 0.2 Direct Bilirubin 0.00 Indirect Bilirubin 0.2 Aspartate Amino Transf (AST/SGOT) 87 H Alanine Aminotransferase (ALT/SGPT) 149 H Alkaline Phosphatase 290 H Total Protein 6.9 Albumin 3.0 L Globulin 3.90 H Albumin/Globulin Ratio 0.76 Bedside Glucose 208 115 138 Test 03/25/17 00:14 03/25/17 05:58 03/25/17 06:00 Bedside Glucose 148 159 White Blood Count 7.4 # Red Blood Count 3.06 L Hemoglobin 9.4 L Hematocrit 30.7 L Mean Corpuscular Volume 100.3 Mean Corpuscular Hemoglobin 30.7 Mean Corpuscular Hemoglobin Concent 30.6 L Red Cell Distribution Width 15.2 H Platelet Count 423 H Mean Platelet Volume 10.9 H Neutrophils % 58.9 Lymphocytes % 24.6 Monocytes % 4.3 Eosinophils % 8.5 H Basophils % 0.7 Nucleated Red Blood Cells % 0.4 H Neutrophils # 4.4 Lymphocytes # 1.8 Monocytes # 0.3 Eosinophils # 0.6 H Basophils # 0.1 Nucleated Red Blood Cells # 0.0 Sodium Level 144 Potassium Level 4.1 Chloride Level 102 Carbon Dioxide Level 28 Anion Gap 18 H Blood Urea Nitrogen 13 Creatinine 0.51 Glucose Level 166 Calcium Level 9.0 Iron Level 22 L Total Iron Binding Capacity 159 L Percent Iron Saturation 14 L Total Bilirubin 0.2 Direct Bilirubin 0.00 Indirect Bilirubin 0.2 Aspartate Amino Transf (AST/SGOT) 61 H Alanine Aminotransferase (ALT/SGPT) 113 H Alkaline Phosphatase 276 H Total Protein 7.1 Albumin 3.1 L Globulin 4.00 H Albumin/Globulin Ratio 0.77 Medications Medications Current Medications Atorvastatin Calcium (Lipitor) 40 mg HS GTB Last administered on 03/24/17 21: 04; Admin Dose 40 MG; Start 03/19/17 at 21:00 Bisacodyl (Dulcolax Supp) 10 mg DAILY PRN NM PRN; Start 03/19/17 at 05:00 Enoxaparin Sodium (Lovenox) 40 mg DAILY SC Last administered on 03/25/17 08:17 ; Admin Dose 40 MG; Start 03/19/17 at 09:00 Tramadol HCl (Ultram) 50 mg BID GTB Last administered on 03/25/17 08:15; Admin Dose 50 MG; Start 03/19/17 at 09:00 Zinc Sulfate (Zinc Sulfate) 220 mg DAILY GTB Last administered on 03/25/17 08: 15; Admin Dose 220 MG; Start 03/19/17 at 09:00 Acetaminophen (Tylenol Liquid) 650 mg Q4H PRN GTB MILD PAIN LEVEL 1-3 Last administered on 03/23/17 22:30; Admin Dose 650 MG; Start 03/19/17 at 06:00 Acetaminophen (Tylenol Liquid) 1,000 mg Q4H PRN PO PAIN LEVEL 4-6/10 Last administered on 03/22/17 03:30; Admin Dose 1,000 MG; Start 03/19/17 at 06:00 Insulin Aspart (Novolog Insulin Pen) NOVOLOG *MODERATE* ALGORI... Q6 SC Last administered on 03/25/17 06:02; Admin Dose 2 UNIT; Start 03/19/17 at 06:00 Miscellaneous Information 1 ea NOTE XX ; Start 03/19/17 at 06:00 Glucose (Glutose) 15 gm Q15M PRN PO DECREASED GLUCOSE; Start 03/19/17 at 06:00 Glucose (Glutose) 22.5 gm Q15M PRN PO DECREASED GLUCOSE; Start 03/19/17 at 06: 00 Dextrose (D50w Syringe) 25 ml Q15M PRN IV DECREASED GLUCOSE; Start 03/19/17 at 06:00 Dextrose (D50w Syringe) 50 ml Q15M PRN IV DECREASED GLUCOSE; Start 03/19/17 at 06:00 Glucagon (Glucagen) 1 mg Q15M PRN IM DECREASED GLUCOSE; Start 03/19/17 at 06:00 Glucose (Glutose) 15 gm Q15M PRN BUCCAL DECREASED GLUCOSE; Start 03/19/17 at 06 :00 Levetiracetam (Keppra Liquid) 500 mg BID GTB Last administered on 03/24/17 08: 48; Admin Dose 500 MG; Start 03/19/17 at 09:00; Status Future Hold Miscellaneous Information (Pending Santyl Order For Wound Care) This patient mahmood... PRN PRN XX WOUND CARE; Start 03/19/17 at 06:00 Sodium Biphosphate/ Sodium Phosphate (Fleet Enema) 133 ml DAILY PRN [place] CONSTIPATION; Start 03/19/17 at 06:30 Diltiazem HCl (Cardizem) 60 mg Q8 GTB Last administered on 03/25/17 05:52; Admin Dose 60 MG; Start 03/19/17 at 14:00 Insulin Glargine 24 unit 24 unit DAILY@20 SC Last administered on 03/24/17 20: 16; Admin Dose 24 UNIT; Start 03/21/17 at 20:00 Imipenem/ Cilastatin Sodium (Primaxin 500 Mg/ 100 ml (Pmx)) 100 ml @ 100 mls/ hr Q6 IVPB Last administered on 03/25/17 05:53; Admin Dose 100 MLS/HR; Start 03/22/17 at 00:00 Metoprolol Tartrate (Lopressor) 5 mg Q6 PRN IV TACHYCARDIA Last administered on 03/23/17 18:02; Admin Dose 5 MG; Start 03/22/17 at 10:30 Morphine Sulfate 1 mg 1 mg Q4H PRN IV severe pain Last administered on 14:30; Admin Dose 1 MG; Start 03/22/17 at 12:00 Vancomycin HCl/ Sodium Chloride (Vancocin/NS) 150 ml @ 75 mls/hr Q12H IVPB Last administered on 03/25/17 06:23; Admin Dose 75 MLS/HR; Start 03/22/17 at 18 :00 Ondansetron HCl (Zofran Inj) 4 mg Q4H PRN IV NAUSEA AND/OR VOMITING Last administered on 03/25/17 01:28; Admin Dose 4 MG; Start 03/23/17 at 05:00 Polyethylene Glycol (Miralax) 17 gm DAILY GTB Last administered on 03/25/17 08 :15; Admin Dose 17 GM; Start 03/23/17 at 12:00 Metoclopramide HCl (Reglan) 10 mg BID IV Last administered on 03/25/17 08:15; Admin Dose 10 MG; Start 03/24/17 at 10:30 Multivitamins 5 ml 5 ml DAILY GTB Last administered on 03/25/17 08:15; Admin Dose 5 ML; Start 03/25/17 at 09:00 Levetiracetam/ Sodium Chloride (Keppra Iv/NS) 105 ml @ 430 mls/hr Q12 IVPB Last administered on 03/24/17 21:20; Admin Dose 430 MLS/HR; Start 03/24/17 at 21:00 Pantoprazole 40 mg 40 mg BID IV Last administered on 03/25/17 08:15; Admin Dose 40 MG; Start 03/24/17 at 21:00 Potassium Chloride/Dextrose/ Sodium Chloride (KCl/D5-NS) 1,020 ml @ 100 mls/hr [id number] IV Last administered on 03/25/17 04:12; Admin Dose 100 MLS/HR; Start 03/24/17 at 18:00 JOSE DREW M.D. Mar 25, 2017 09:21
[2017-03-25] MEDS: LEVETIRACETAM IV 500 MG in SOD CHLORIDE 0.9% 100 ML IVPB SCH ×2 (09:39→21:51)
--- NOTE | 2017-03-25 09:45 | CONS ---
Date/Time of Note Date/Time of Note DATE: 03/25/17 TIME: 09:43 Assessment/Plan Assessment/Plan Additional Assessment/Plan Assessment recommendations; 1. Patient admitted for shortness of breath likely combination of CHF as well as possibly aspiration pneumonia. 2. Stable seizure disorder. 3. Diabetes. 4. History of psychiatric illness. 5. History of dysphagia, status post G-tube placement. 5. Mild persistent pulmonary edema. Continue current treatment. Obtain follow-up chest x-ray. Consultation Date/Type/Reason Admit Date/Time Mar 19, 2017 at 01:44 Initial Consult Date 03/22/17 Type of Consultation: Pulm/CCM 24 HR Interval Summary Free Text/Dictation Patient condition is stable. Denies any shortness of breath, chest pain, wheezing cough sputum production fever or chills. General exam; middle-aged woman, awake alert currently in no distress. Exam/Review of Systems Vital Signs Vitals Vital Signs Date Time Temp Pulse Resp B/P Pulse Ox O2 Delivery O2 Flow Rate FiO2 03/25/17 09:00 94 19 104/51 100 Nasal Cannula 3.0 03/25/17 08:00 98.5 Intake and Output 03/24/17 03/24/17 03/25/17 15:00 23:00 07:00 Intake Total 1165 ml 900 ml Output Total 2460 ml 1115 ml Balance -1295 ml -215 ml Exam HEENT exam is; supple neck, positive JVD. No lymphadenopathy. Midline trachea. No thyromegaly. Pharynx is clear. Patient has fair dentition. Pupils are midsize and reactive to light. No thyromegaly. Chest exam is; clear to auscultation. S1-S2 audible, no murmurs. Regular rhythm. Abdomen examination; soft, G-tube in place. Nontender. No organomegaly. Nondistended. Extremity exam; no peripheral edema. Next [employer] examination; no focal deficit. Results Result Diagram: 03/25/17 0600 03/25/17 0600 Results 24 hrs Laboratory Tests Test 03/24/17 12:10 03/24/17 17:55 03/24/17 20:14 03/25/17 00:14 Bedside Glucose 208 115 138 148 Test 03/25/17 05:58 03/25/17 06:00 Bedside Glucose 159 White Blood Count 7.4 # Red Blood Count 3.06 L Hemoglobin 9.4 L Hematocrit 30.7 L Mean Corpuscular Volume 100.3 Mean Corpuscular Hemoglobin 30.7 Mean Corpuscular Hemoglobin Concent 30.6 L Red Cell Distribution Width 15.2 H Platelet Count 423 H Mean Platelet Volume 10.9 H Neutrophils % 58.9 Lymphocytes % 24.6 Monocytes % 4.3 Eosinophils % 8.5 H Basophils % 0.7 Nucleated Red Blood Cells % 0.4 H Neutrophils # 4.4 Lymphocytes # 1.8 Monocytes # 0.3 Eosinophils # 0.6 H Basophils # 0.1 Nucleated Red Blood Cells # 0.0 Sodium Level 144 Potassium Level 4.1 Chloride Level 102 Carbon Dioxide Level 28 Anion Gap 18 H Blood Urea Nitrogen 13 Creatinine 0.51 Glucose Level 166 Calcium Level 9.0 Iron Level 22 L Total Iron Binding Capacity 159 L Percent Iron Saturation 14 L Total Bilirubin 0.2 Direct Bilirubin 0.00 Indirect Bilirubin 0.2 Aspartate Amino Transf (AST/SGOT) 61 H Alanine Aminotransferase (ALT/SGPT) 113 H Alkaline Phosphatase 276 H Total Protein 7.1 Albumin 3.1 L Globulin 4.00 H Albumin/Globulin Ratio 0.77 Medications Medications Current Medications Atorvastatin Calcium (Lipitor) 40 mg HS GTB Last administered on 03/24/17 21: 04; Admin Dose 40 MG; Start 03/19/17 at 21:00 Bisacodyl (Dulcolax Supp) 10 mg DAILY PRN AR PRN; Start 03/19/17 at 05:00 Enoxaparin Sodium (Lovenox) 40 mg DAILY SC Last administered on 03/25/17 08:17 ; Admin Dose 40 MG; Start 03/19/17 at 09:00 Tramadol HCl (Ultram) 50 mg BID GTB Last administered on 03/25/17 08:15; Admin Dose 50 MG; Start 03/19/17 at 09:00 Zinc Sulfate (Zinc Sulfate) 220 mg DAILY GTB Last administered on 03/25/17 08: 15; Admin Dose 220 MG; Start 03/19/17 at 09:00 Acetaminophen (Tylenol Liquid) 650 mg Q4H PRN GTB MILD PAIN LEVEL 1-3 Last administered on 03/23/17 22:30; Admin Dose 650 MG; Start 03/19/17 at 06:00 Acetaminophen (Tylenol Liquid) 1,000 mg Q4H PRN PO PAIN LEVEL 4-6 Last administered on 03/22/17 03:30; Admin Dose 1,000 MG; Start 03/19/17 at 06:00 Insulin Aspart (Novolog Insulin Pen) NOVOLOG *MODERATE* ALGORI... Q6 SC Last administered on 03/25/17 06:02; Admin Dose 2 UNIT; Start 03/19/17 at 06:00 Miscellaneous Information 1 ea NOTE XX ; Start 03/19/17 at 06:00 Glucose (Glutose) 15 gm Q15M PRN PO DECREASED GLUCOSE; Start 03/19/17 at 06:00 Glucose (Glutose) 22.5 gm Q15M PRN PO DECREASED GLUCOSE; Start 03/19/17 at 06: 00 Dextrose (D50w Syringe) 25 ml Q15M PRN IV DECREASED GLUCOSE; Start 03/19/17 at 06:00 Dextrose (D50w Syringe) 50 ml Q15M PRN IV DECREASED GLUCOSE; Start 03/19/17 at 06:00 Glucagon (Glucagen) 1 mg Q15M PRN IM DECREASED GLUCOSE; Start 03/19/17 at 06:00 Glucose (Glutose) 15 gm Q15M PRN BUCCAL DECREASED GLUCOSE; Start 03/19/17 at 06 :00 Levetiracetam (Keppra Liquid) 500 mg BID GTB Last administered on 03/24/17 08: 48; Admin Dose 500 MG; Start 03/19/17 at 09:00; Status Future Hold Miscellaneous Information (Pending Santyl Order For Wound Care) This patient mahmood... PRN PRN XX WOUND CARE; Start 03/19/17 at 06:00 Sodium Biphosphate/ Sodium Phosphate (Fleet Enema) 133 ml DAILY PRN [place] CONSTIPATION; Start 03/19/17 at 06:30 Diltiazem HCl (Cardizem) 60 mg Q8 GTB Last administered on 03/25/17 05:52; Admin Dose 60 MG; Start 03/19/17 at 14:00 Insulin Glargine 24 unit 24 unit DAILY@20 SC Last administered on 03/24/17 20: 16; Admin Dose 24 UNIT; Start 03/21/17 at 20:00 Imipenem/ Cilastatin Sodium (Primaxin 500 Mg/ 100 ml (Pmx)) 100 ml @ 100 mls/ hr Q6 IVPB Last administered on 03/25/17 05:53; Admin Dose 100 MLS/HR; Start 03/22/17 at 00:00 Metoprolol Tartrate (Lopressor) 5 mg Q6 PRN IV TACHYCARDIA Last administered on 03/23/17 18:02; Admin Dose 5 MG; Start 03/22/17 at 10:30 Morphine Sulfate 1 mg 1 mg Q4H PRN IV severe pain Last administered on 14:30; Admin Dose 1 MG; Start 03/22/17 at 12:00 Vancomycin HCl/ Sodium Chloride (Vancocin/NS) 150 ml @ 75 mls/hr Q12H IVPB Last administered on 03/25/17 06:23; Admin Dose 75 MLS/HR; Start 03/22/17 at 18 :00 Ondansetron HCl (Zofran Inj) 4 mg Q4H PRN IV NAUSEA AND/OR VOMITING Last administered on 03/25/17 01:28; Admin Dose 4 MG; Start 03/23/17 at 05:00 Polyethylene Glycol (Miralax) 17 gm DAILY GTB Last administered on 03/25/17 08 :15; Admin Dose 17 GM; Start 03/23/17 at 12:00 Metoclopramide HCl (Reglan) 10 mg BID IV Last administered on 03/25/17 08:15; Admin Dose 10 MG; Start 03/24/17 at 10:30 Multivitamins 5 ml 5 ml DAILY GTB Last administered on 03/25/17 08:15; Admin Dose 5 ML; Start 03/25/17 at 09:00 Levetiracetam/ Sodium Chloride (Keppra Iv/NS) 105 ml @ 430 mls/hr Q12 IVPB Last administered on 03/25/17 09:39; Admin Dose 430 MLS/HR; Start 03/24/17 at 21:00 Pantoprazole 40 mg 40 mg BID IV Last administered on 03/25/17 08:15; Admin Dose 40 MG; Start 03/24/17 at 21:00 Potassium Chloride/Dextrose/ Sodium Chloride (KCl/D5-NS) 1,020 ml @ 100 mls/hr [id number] IV Last administered on 03/25/17 04:12; Admin Dose 100 MLS/HR; Start 03/24/17 at 18:00 QARNI,ZAK Mar 25, 2017 09:45
--- NOTE | 2017-03-25 11:20 | RADRPT ---
PROCEDURE: XR Chest. CLINICAL INDICATION: chf TECHNIQUE: Single frontal view of the chest was obtained. COMPARISON: Chest x-ray from 03/24/2017 FINDINGS: There is stable cardiomegaly and congestive changes. No definite focal infiltrates are identified. Increased opacification of the right lung base is again noted which may be due to a small, possibly layering pleural effusion. IMPRESSION: No significant interval change. RPTAT: EE Joesph Acuna Physician Date Time Electronically viewed and signed by Joesph Acuna Physician on 03/25/2017 11:19 RA/
--- NOTE | 2017-03-25 12:21 | PN ---
Date/Time of Note Date/Time of Note DATE: 03/25/17 TIME: 12:19 Assessment/Plan VTE Prophylaxis VTE Prophylaxis Intervention: SCD's Lines/Catheters IV [facility]ter Type (from [facility] Peripheral IV Urinary Cath still in place: Yes Reason Cath still needed: urinary retention Assessment/Plan Chief Complaint/Hosp Course ASSESSMENT AND PLAN: - Possible sepsis with leukocytosis tachycardia. Patient was transferred to telemetry. Cardiology consult requested. - Possible HCAP vs aspiration, continue abx per ID. Dr. Pitt is following in infection disease consultation. is following in pulmonology consultation. Continue bronchodilators and oxygen supplementation. - Sinus tachycardia, most likely secondary to PNA. - Left hand swelling. Continue broad-spectrum antibiotics for possible cellulitis. - Seizure disorder. Continue Keppra. - Dysphagia with percutaneous endoscopic gastrostomy. Continue G-tube feeding, aspiration precautions. - Diabetes mellitus type 2. Continue NPH. - Dyslipidemia. Continue statins. - Hypertension. The patient is currently normotensive. - Schizophrenia and bipolar disorder. Continue Lovenox for deep venous thrombosis prophylaxis. Further recommendations based on clinical course. Plan of care was discussed with Dr. Aly. Problems: Subjective 24 Hr Interval Summary Free Text/Dictation Patient is currently comfortable on supplemental oxygen via nasal cannula, slightly tachycardic, denies any pain awake alert. Exam/Review of Systems Vital Signs Vitals Vital Signs Date Time Temp Pulse Resp B/P Pulse Ox O2 Delivery O2 Flow Rate FiO2 03/25/17 11:00 117 21 133/65 96 Nasal Cannula 3.0 03/25/17 08:00 98.5 Intake and Output 03/24/17 03/24/17 03/25/17 15:00 23:00 07:00 Intake Total 1165 ml 1000 ml Output Total 2460 ml 1115 ml Balance -1295 ml -115 ml Exam PHYSICAL ASSESSMENT GENERAL: Well-developed, well-nourished female, currently awake alert. HEENT: Head is atraumatic, normocephalic. Pupils equal, round, reactive to light and accommodation. Oral mucosa is pink and moist. NECK: Supple, no cervical lymphadenopathy, no thyromegaly. CHEST: Lungs clear bilaterally, slightly diminished at the bases. CARDIOVASCULAR: Normal S1, S2. No murmurs, gallops, clicks, rubs noted. The patient is tachycardic. ABDOMEN: Round, soft, nondistended, nontender. G-tube with intact stoma.Left hand slight swelling. SKIN: There is no rash, petechiae. NEUROLOGIC: The patient is awake, alert, near baseline. Results Result Diagram: 03/25/17 0600 03/25/17 0600 Results 24 hrs Laboratory Tests Test 03/24/17 17:55 03/24/17 20:14 03/25/17 00:14 03/25/17 05:58 Bedside Glucose 115 138 148 159 Test 03/25/17 06:00 White Blood Count 7.4 # Red Blood Count 3.06 L Hemoglobin 9.4 L Hematocrit 30.7 L Mean Corpuscular Volume 100.3 Mean Corpuscular Hemoglobin 30.7 Mean Corpuscular Hemoglobin Concent 30.6 L Red Cell Distribution Width 15.2 H Platelet Count 423 H Mean Platelet Volume 10.9 H Neutrophils % 58.9 Lymphocytes % 24.6 Monocytes % 4.3 Eosinophils % 8.5 H Basophils % 0.7 Nucleated Red Blood Cells % 0.4 H Neutrophils # 4.4 Lymphocytes # 1.8 Monocytes # 0.3 Eosinophils # 0.6 H Basophils # 0.1 Nucleated Red Blood Cells # 0.0 Sodium Level 144 Potassium Level 4.1 Chloride Level 102 Carbon Dioxide Level 28 Anion Gap 18 H Blood Urea Nitrogen 13 Creatinine 0.51 Glucose Level 166 Calcium Level 9.0 Iron Level 22 L Total Iron Binding Capacity 159 L Percent Iron Saturation 14 L Total Bilirubin 0.2 Direct Bilirubin 0.00 Indirect Bilirubin 0.2 Aspartate Amino Transf (AST/SGOT) 61 H Alanine Aminotransferase (ALT/SGPT) 113 H Alkaline Phosphatase 276 H Total Protein 7.1 Albumin 3.1 L Globulin 4.00 H Albumin/Globulin Ratio 0.77 Medications Medications Current Medications Atorvastatin Calcium (Lipitor) 40 mg HS GTB Last administered on 03/24/17t 21: 04; Admin Dose 40 MG; Start 03/19/17 at 21:00 Bisacodyl (Dulcolax Supp) 10 mg DAILY PRN [place] PRN; Start 03/19/17 at 05:00 Enoxaparin Sodium (Lovenox) 40 mg DAILY SC Last administered on 03/25/17 08:17 ; Admin Dose 40 MG; Start 03/19/17 at 09:00 Tramadol HCl (Ultram) 50 mg BID GTB Last administered on 03/25/17 08:15; Admin Dose 50 MG; Start 03/19/17 at 09:00 Zinc Sulfate (Zinc Sulfate) 220 mg DAILY GTB Last administered on 03/25/17 08: 15; Admin Dose 220 MG; Start 03/19/17 at 09:00 Acetaminophen (Tylenol Liquid) 650 mg Q4H PRN GTB MILD PAIN LEVEL 1-3 Last administered on 03/23/17 22:30; Admin Dose 650 MG; Start 03/19/17 at 06:00 Acetaminophen (Tylenol Liquid) 1,000 mg Q4H PRN PO PAIN LEVEL 4-6/10 Last administered on 03/22/17 03:30; Admin Dose 1,000 MG; Start 03/19/17 at 06:00 Insulin Aspart (Novolog Insulin Pen) NOVOLOG *MODERATE* ALGORI... Q6 SC Last administered on 03/25/17 06:02; Admin Dose 2 UNIT; Start 03/19/17 at 06:00 Miscellaneous Information 1 ea NOTE XX ; Start 03/19/17 at 06:00 Glucose (Glutose) 15 gm Q15M PRN PO DECREASED GLUCOSE; Start 03/19/17 at 06:00 Glucose (Glutose) 22.5 gm Q15M PRN PO DECREASED GLUCOSE; Start 03/19/17 at 06: 00 Dextrose (D50w Syringe) 25 ml Q15M PRN IV DECREASED GLUCOSE; Start 03/19/17 at 06:00 Dextrose (D50w Syringe) 50 ml Q15M PRN IV DECREASED GLUCOSE; Start 03/19/17 at 06:00 Glucagon (Glucagen) 1 mg Q15M PRN IM DECREASED GLUCOSE; Start 03/19/17 at 06:00 Glucose (Glutose) 15 gm Q15M PRN BUCCAL DECREASED GLUCOSE; Start 03/19/17 at 06 :00 Levetiracetam (Keppra Liquid) 500 mg BID GTB Last administered on 03/24/17 08: 48; Admin Dose 500 MG; Start 03/19/17 at 09:00; Status Future Hold Miscellaneous Information (Pending Santyl Order For Wound Care) This patient mahmood... PRN PRN XX WOUND CARE; Start 03/19/17 at 06:00 Sodium Biphosphate/ Sodium Phosphate (Fleet Enema) 133 ml DAILY PRN [place] CONSTIPATION; Start 03/19/17 at 06:30 Diltiazem HCl (Cardizem) 60 mg Q8 GTB Last administered on 03/25/17 05:52; Admin Dose 60 MG; Start 03/19/17 at 14:00 Insulin Glargine 24 unit 24 unit DAILY@20 SC Last administered on 03/24/17 20: 16; Admin Dose 24 UNIT; Start 03/21/17 at 20:00 Imipenem/ Cilastatin Sodium (Primaxin 500 Mg/ 100 ml (Pmx)) 100 ml @ 100 mls/ hr Q6 IVPB Last administered on 03/25/17 05:53; Admin Dose 100 MLS/HR; Start 03/22/17 at 00:00 Metoprolol Tartrate (Lopressor) 5 mg Q6 PRN IV TACHYCARDIA Last administered on 03/23/17 18:02; Admin Dose 5 MG; Start 03/22/17 at 10:30 Morphine Sulfate 1 mg 1 mg Q4H PRN IV severe pain Last administered on 14:30; Admin Dose 1 MG; Start 03/22/17 at 12:00 Vancomycin HCl/ Sodium Chloride (Vancocin/NS) 150 ml @ 75 mls/hr Q12H IVPB Last administered on 03/25/17 06:23; Admin Dose 75 MLS/HR; Start 03/22/17 at 18 :00 Ondansetron HCl (Zofran Inj) 4 mg Q4H PRN IV NAUSEA AND/OR VOMITING Last administered on 03/25/17 01:28; Admin Dose 4 MG; Start 03/23/17 at 05:00 Polyethylene Glycol (Miralax) 17 gm DAILY GTB Last administered on 03/25/17 08 :15; Admin Dose 17 GM; Start 03/23/17 at 12:00 Metoclopramide HCl (Reglan) 10 mg BID IV Last administered on 03/25/17 08:15; Admin Dose 10 MG; Start 03/24/17 at 10:30 Multivitamins 5 ml 5 ml DAILY GTB Last administered on 03/25/17 08:15; Admin Dose 5 ML; Start 03/25/17 at 09:00 Levetiracetam/ Sodium Chloride (Keppra Iv/NS) 105 ml @ 430 mls/hr Q12 IVPB Last administered on 03/25/17 09:39; Admin Dose 430 MLS/HR; Start 03/24/17 at 21:00 Pantoprazole 40 mg 40 mg BID IV Last administered on 03/25/17 08:15; Admin Dose 40 MG; Start 03/24/17 at 21:00 Potassium Chloride/Dextrose/ Sodium Chloride (KCl/D5-NS) 1,020 ml @ 100 mls/hr [id number] IV Last administered on 03/25/17 04:12; Admin Dose 100 MLS/HR; Start 03/24/17 at 18:00 DENA SALGUERO Mar 25, 2017 12:21
--- NOTE | 2017-03-25 17:22 | CONS ---
Date/Time of Note Date/Time of Note DATE: 03/25/17 TIME: 17:21 Assessment/Plan Assessment/Plan Additional Assessment/Plan Sepsis Sinus tachycardia History of paroxysmal atrial tachycardia Preserved ejection fraction Psychiatric disorder Seizure disorder Volume overload -Lung examination improved today, continue IV diuretics as blood pressure and renal function permits. Maintain potassium above 4.0 and magnesium above 2.0. Consultation Date/Type/Reason Admit Date/Time Mar 19, 2017 at 01:44 Initial Consult Date 03/22/17 Type of Consultation: cv 24 HR Interval Summary Free Text/Dictation Patient still with shortness of breath, denies chest pain Exam/Review of Systems Vital Signs Vitals Vital Signs Date Time Temp Pulse Resp B/P Pulse Ox O2 Delivery O2 Flow Rate FiO2 03/25/17 16:58 115 03/25/17 16:26 97.6 18 143/63 97 03/25/17 11:00 Nasal Cannula 3.0 Intake and Output 03/24/17 03/24/17 03/25/17 15:00 23:00 07:00 Intake Total 1165 ml 1000 ml Output Total 2460 ml 1115 ml Balance -1295 ml -115 ml Exam No apparent distress, no dyspnea with speaking Constitutional: alert Head: normocephalic Respiratory: other (Coarse breath sounds bilaterally, no wheezing) Cardiovascular: other (S1-S2 heard), regular rate and rhythm Gastrointestinal: bowel sounds, non-tender, soft Extremities: edema Results Result Diagram: 03/25/17 0600 03/25/17 0600 Results 24 hrs Laboratory Tests Test 03/24/17 17:55 03/24/17 20:14 03/25/17 00:14 03/25/17 05:58 Bedside Glucose 115 138 148 159 Test 03/25/17 06:00 03/25/17 14:26 White Blood Count 7.4 # Red Blood Count 3.06 L Hemoglobin 9.4 L Hematocrit 30.7 L Mean Corpuscular Volume 100.3 Mean Corpuscular Hemoglobin 30.7 Mean Corpuscular Hemoglobin Concent 30.6 L Red Cell Distribution Width 15.2 H Platelet Count 423 H Mean Platelet Volume 10.9 H Neutrophils % 58.9 Lymphocytes % 24.6 Monocytes % 4.3 Eosinophils % 8.5 H Basophils % 0.7 Nucleated Red Blood Cells % 0.4 H Neutrophils # 4.4 Lymphocytes # 1.8 Monocytes # 0.3 Eosinophils # 0.6 H Basophils # 0.1 Nucleated Red Blood Cells # 0.0 Sodium Level 144 Potassium Level 4.1 Chloride Level 102 Carbon Dioxide Level 28 Anion Gap 18 H Blood Urea Nitrogen 13 Creatinine 0.51 Glucose Level 166 Calcium Level 9.0 Iron Level 22 L Total Iron Binding Capacity 159 L Percent Iron Saturation 14 L Total Bilirubin 0.2 Direct Bilirubin 0.00 Indirect Bilirubin 0.2 Aspartate Amino Transf (AST/SGOT) 61 H Alanine Aminotransferase (ALT/SGPT) 113 H Alkaline Phosphatase 276 H Total Protein 7.1 Albumin 3.1 L Globulin 4.00 H Albumin/Globulin Ratio 0.77 Bedside Glucose 107 Medications Medications Current Medications Atorvastatin Calcium (Lipitor) 40 mg HS GTB Last administered on 03/24/17 21: 04; Admin Dose 40 MG; Start 03/19/17 at 21:00 Bisacodyl (Dulcolax Supp) 10 mg DAILY PRN [place] PRN; Start 03/19/17 at 05:00 Enoxaparin Sodium (Lovenox) 40 mg DAILY SC Last administered on 03/25/17 08:17 ; Admin Dose 40 MG; Start 03/19/17 at 09:00 Tramadol HCl (Ultram) 50 mg BID GTB Last administered on 03/25/17 08:15; Admin Dose 50 MG; Start 03/19/17 at 09:00 Zinc Sulfate (Zinc Sulfate) 220 mg DAILY GTB Last administered on 03/25/17 08: 15; Admin Dose 220 MG; Start 03/19/17 at 09:00 Acetaminophen (Tylenol Liquid) 650 mg Q4H PRN GTB MILD PAIN LEVEL 1-3 Last administered on 03/23/17 22:30; Admin Dose 650 MG; Start 03/19/17 at 06:00 Acetaminophen (Tylenol Liquid) 1,000 mg Q4H PRN PO PAIN LEVEL 4-6/10 Last administered on 03/22/17 03:30; Admin Dose 1,000 MG; Start 03/19/17 at 06:00 Insulin Aspart (Novolog Insulin Pen) NOVOLOG *MODERATE* ALGORI... Q6 SC Last administered on 03/25/17 06:02; Admin Dose 2 UNIT; Start 03/19/17 at 06:00 Miscellaneous Information 1 ea NOTE XX ; Start 03/19/17 at 06:00 Glucose (Glutose) 15 gm Q15M PRN PO DECREASED GLUCOSE; Start 03/19/17 at 06:00 Glucose (Glutose) 22.5 gm Q15M PRN PO DECREASED GLUCOSE; Start 03/19/17 at 06: 00 Dextrose (D50w Syringe) 25 ml Q15M PRN IV DECREASED GLUCOSE; Start 03/19/17 at 06:00 Dextrose (D50w Syringe) 50 ml Q15M PRN IV DECREASED GLUCOSE; Start 03/19/17 at 06:00 Glucagon (Glucagen) 1 mg Q15M PRN IM DECREASED GLUCOSE; Start 03/19/17 at 06:00 Glucose (Glutose) 15 gm Q15M PRN BUCCAL DECREASED GLUCOSE; Start 03/19/17 at 06 :00 Levetiracetam (Keppra Liquid) 500 mg BID GTB Last administered on 03/24/17 08: 48; Admin Dose 500 MG; Start 03/19/17 at 09:00; Status Future Hold Miscellaneous Information [facility] This patient mahmood... PRN PRN XX WOUND CARE; Start 03/19/17 at 06:00 Sodium Biphosphate/ Sodium Phosphate (Fleet Enema) 133 ml DAILY PRN [place] CONSTIPATION; Start 03/19/17 at 06:30 Diltiazem HCl (Cardizem) 60 mg Q8 GTB Last administered on 03/25/17 14:28; Admin Dose 60 MG; Start 03/19/17 at 14:00 Insulin Glargine 24 unit 24 unit DAILY@20 SC Last administered on 03/24/17 20: 16; Admin Dose 24 UNIT; Start 03/21/17 at 20:00 Imipenem/ Cilastatin Sodium (Primaxin 500 Mg/ 100 ml (Pmx)) 100 ml @ 100 mls/ hr Q6 IVPB Last administered on 03/25/17 05:53; Admin Dose 100 MLS/HR; Start 03/22/17 at 00:00 Metoprolol Tartrate (Lopressor) 5 mg Q6 PRN IV TACHYCARDIA Last administered on 03/23/17 18:02; Admin Dose 5 MG; Start 03/22/17 at 10:30 Morphine Sulfate 1 mg 1 mg Q4H PRN IV severe pain Last administered on 14:30; Admin Dose 1 MG; Start 03/22/17 at 12:00 Vancomycin HCl/ Sodium Chloride (Vancocin/NS) 150 ml @ 75 mls/hr Q12H IVPB Last administered on 03/25/17 06:23; Admin Dose 75 MLS/HR; Start 03/22/17 at 18 :00 Ondansetron HCl (Zofran Inj) 4 mg Q4H PRN IV NAUSEA AND/OR VOMITING Last administered on 03/25/17 01:28; Admin Dose 4 MG; Start 03/23/17 at 05:00 Polyethylene Glycol (Miralax) 17 gm DAILY GTB Last administered on 03/25/17 08 :15; Admin Dose 17 GM; Start 03/23/17 at 12:00 Metoclopramide HCl (Reglan) 10 mg BID IV Last administered on 03/25/17 08:15; Admin Dose 10 MG; Start 03/24/17 at 10:30 Multivitamins 5 ml 5 ml DAILY GTB Last administered on 03/25/17 08:15; Admin Dose 5 ML; Start 03/25/17 at 09:00 Levetiracetam/ Sodium Chloride (Keppra Iv/NS) 105 ml @ 430 mls/hr Q12 IVPB Last administered on 03/25/17 09:39; Admin Dose 430 MLS/HR; Start 03/24/17 at 21:00 Pantoprazole 40 mg 40 mg BID IV Last administered on 03/25/17 08:15; Admin Dose 40 MG; Start 03/24/17 at 21:00 Potassium Chloride/Dextrose/ Sodium Chloride (KCl/D5-NS) 1,020 ml @ 100 mls/hr [id number] IV Last administered on 03/25/17 04:12; Admin Dose 100 MLS/HR; Start 03/24/17 at 18:00 Gamal Coronel DO Mar 25, 2017 17:22
--- NOTE | 2017-03-25 17:29 | CONS ---
Date/Time of Note Date/Time of Note DATE: 03/25/17 TIME: 17:28 Assessment/Plan Assessment/Plan Additional Assessment/Plan Chief Complaint/Hosp Course IMPRESSION: 1. nausea with vomiting: KUB from 2 days ago showed possible constipation. Awaiting today's KUB. 2. Possible sepsis with leukocytosis tachycardia. 3. Possible HCAP 4. Sinus tachycardia, most likely secondary to dehydration. 5. Left arm/hand swelling. 6. Seizure disorder. 7. Dysphagia with percutaneous endoscopic gastrostomy. 8. Iron deficiency anemia 9 abnormal liver function test RECOMMENDATION 1. change pepcid to protonix iv bid in case n/v due to PUD, gastritis, esophagitis 2. change bowel regiman to miralax daily 3. add reglan 10 mg iv bid to see if it will help with the nausea 4. f/u KUB 5. continue to hold tube feed for now (as she is still nauseous and awaiting KUB from today) but ok for meds 6. continue GT to low intermittent suctioning 7. stop GT iron as it can be constipating. will recheck iron panel and replete by IV if low 8. stop vitamin C as we replete iron if low by IV and to minimize GT load 9. continue D5 LR with 20 mEQ KCL so pt don't need GT potassium to minimize constipation and nausea (oral KCL can cause nausea) 10. Ultrasound of the liver, acute hepatitis panel Consultation Date/Type/Reason Admit Date/Time Mar 19, 2017 at 01:44 Initial Consult Date 03/22/17 Type of Consultation: cv 24 HR Interval Summary Free Text/Dictation No nausea no vomiting. Patient is tolerating feeding, confirmed with the staff Constitutional: no complaints Exam/Review of Systems Vital Signs Vitals Vital Signs Date Time Temp Pulse Resp B/P Pulse Ox O2 Delivery O2 Flow Rate FiO2 03/25/17 16:58 115 03/25/17 16:26 97.6 18 143/63 97 03/25/17 11:00 Nasal Cannula 3.0 Intake and Output 03/24/17 03/24/17 03/25/17 15:00 23:00 07:00 Intake Total 1165 ml 1000 ml Output Total 2460 ml 1115 ml Balance -1295 ml -115 ml Exam Constitutional: alert, oriented, well developed Psych: nl mood/affect, no complaints Head: atraumatic, normocephalic Eyes: EOMI, PERRL, nl conjunctiva, nl lids, nl sclera ENMT: nl external ears & nose, nl lips & teeth, nl nasal mucosa & septum Neck: non-tender, supple Respiratory: clear to auscultation, normal air movement Cardiovascular: nl pulses, regular rate and rhythm Gastrointestinal: nl liver, spleen, non-tender, soft Musculoskeletal: nl extremities to inspection, nl gait and stance Extremities: normal pulses Neurological: RANCH RIDER II-XII intact, nl mental status, nl speech, nl strength Skin: nl turgor, No rash or lesions Lymph: nl lymph nodes Results Result Diagram: 03/25/17 0600 03/25/17 0600 Results 24 hrs Laboratory Tests Test 03/24/17 17:55 03/24/17 20:14 03/25/17 00:14 03/25/17 05:58 Bedside Glucose 115 138 148 159 Test 03/25/17 06:00 03/25/17 14:26 White Blood Count 7.4 # Red Blood Count 3.06 L Hemoglobin 9.4 L Hematocrit 30.7 L Mean Corpuscular Volume 100.3 Mean Corpuscular Hemoglobin 30.7 Mean Corpuscular Hemoglobin Concent 30.6 L Red Cell Distribution Width 15.2 H Platelet Count 423 H Mean Platelet Volume 10.9 H Neutrophils % 58.9 Lymphocytes % 24.6 Monocytes % 4.3 Eosinophils % 8.5 H Basophils % 0.7 Nucleated Red Blood Cells % 0.4 H Neutrophils # 4.4 Lymphocytes # 1.8 Monocytes # 0.3 Eosinophils # 0.6 H Basophils # 0.1 Nucleated Red Blood Cells # 0.0 Sodium Level 144 Potassium Level 4.1 Chloride Level 102 Carbon Dioxide Level 28 Anion Gap 18 H Blood Urea Nitrogen 13 Creatinine 0.51 Glucose Level 166 Calcium Level 9.0 Iron Level 22 L Total Iron Binding Capacity 159 L Percent Iron Saturation 14 L Total Bilirubin 0.2 Direct Bilirubin 0.00 Indirect Bilirubin 0.2 Aspartate Amino Transf (AST/SGOT) 61 H Alanine Aminotransferase (ALT/SGPT) 113 H Alkaline Phosphatase 276 H Total Protein 7.1 Albumin 3.1 L Globulin 4.00 H Albumin/Globulin Ratio 0.77 Bedside Glucose 107 Medications Medications Current Medications Atorvastatin Calcium (Lipitor) 40 mg HS GTB Last administered on 03/24/17t 21: 04; Admin Dose 40 MG; Start 03/19/17 at 21:00 Bisacodyl (Dulcolax Supp) 10 mg DAILY PRN [place] PRN; Start 03/19/17 at 05:00 Enoxaparin Sodium (Lovenox) 40 mg DAILY SC Last administered on 03/25/17 08:17 ; Admin Dose 40 MG; Start 03/19/17 at 09:00 Tramadol HCl (Ultram) 50 mg BID GTB Last administered on 03/25/17 08:15; Admin Dose 50 MG; Start 03/19/17 at 09:00 Zinc Sulfate (Zinc Sulfate) 220 mg DAILY GTB Last administered on 03/25/17 08: 15; Admin Dose 220 MG; Start 03/19/17 at 09:00 Acetaminophen (Tylenol Liquid) 650 mg Q4H PRN GTB MILD PAIN LEVEL 1-3 Last administered on 03/23/17 22:30; Admin Dose 650 MG; Start 03/19/17 at 06:00 Acetaminophen (Tylenol Liquid) 1,000 mg Q4H PRN PO PAIN LEVEL 4-6/10 Last administered on 03/22/17 03:30; Admin Dose 1,000 MG; Start 03/19/17 at 06:00 Insulin Aspart (Novolog Insulin Pen) NOVOLOG *MODERATE* ALGORI... Q6 SC Last administered on 03/25/17 06:02; Admin Dose 2 UNIT; Start 03/19/17 at 06:00 Miscellaneous Information 1 ea NOTE XX ; Start 03/19/17 at 06:00 Glucose (Glutose) 15 gm Q15M PRN PO DECREASED GLUCOSE; Start 03/19/17 at 06:00 Glucose (Glutose) 22.5 gm Q15M PRN PO DECREASED GLUCOSE; Start 03/19/17 at 06: 00 Dextrose (D50w Syringe) 25 ml Q15M PRN IV DECREASED GLUCOSE; Start 03/19/17 at 06:00 Dextrose (D50w Syringe) 50 ml Q15M PRN IV DECREASED GLUCOSE; Start 03/19/17 at 06:00 Glucagon (Glucagen) 1 mg Q15M PRN IM DECREASED GLUCOSE; Start 03/19/17 at 06:00 Glucose (Glutose) 15 gm Q15M PRN BUCCAL DECREASED GLUCOSE; Start 03/19/17 at 06 :00 Levetiracetam (Keppra Liquid) 500 mg BID GTB Last administered on 03/24/17 08: 48; Admin Dose 500 MG; Start 03/19/17 at 09:00; Status Future Hold Miscellaneous Information (Pending Santyl Order For Wound Care) This patient mahmood... PRN PRN XX WOUND CARE; Start 03/19/17 at 06:00 Sodium Biphosphate/ Sodium Phosphate (Fleet Enema) 133 ml DAILY PRN [place] CONSTIPATION; Start 03/19/17 at 06:30 Diltiazem HCl (Cardizem) 60 mg Q8 GTB Last administered on 03/25/17 14:28; Admin Dose 60 MG; Start 03/19/17 at 14:00 Insulin Glargine 24 unit 24 unit DAILY@20 SC Last administered on 03/24/17 20: 16; Admin Dose 24 UNIT; Start 03/21/17 at 20:00 Imipenem/ Cilastatin Sodium (Primaxin 500 Mg/ 100 ml (Pmx)) 100 ml @ 100 mls/ hr Q6 IVPB Last administered on 03/25/17 05:53; Admin Dose 100 MLS/HR; Start 03/22/17 at 00:00 Metoprolol Tartrate (Lopressor) 5 mg Q6 PRN IV TACHYCARDIA Last administered on 03/23/17 18:02; Admin Dose 5 MG; Start 03/22/17 at 10:30 Morphine Sulfate 1 mg 1 mg Q4H PRN IV severe pain Last administered on 14:30; Admin Dose 1 MG; Start 03/22/17 at 12:00 Vancomycin HCl/ Sodium Chloride (Vancocin/NS) 150 ml @ 75 mls/hr Q12H IVPB Last administered on 03/25/17 06:23; Admin Dose 75 MLS/HR; Start 03/22/17 at 18 :00 Ondansetron HCl (Zofran Inj) 4 mg Q4H PRN IV NAUSEA AND/OR VOMITING Last administered on 03/25/17 01:28; Admin Dose 4 MG; Start 03/23/17 at 05:00 Polyethylene Glycol (Miralax) 17 gm DAILY GTB Last administered on 03/25/17 08 :15; Admin Dose 17 GM; Start 03/23/17 at 12:00 Metoclopramide HCl (Reglan) 10 mg BID IV Last administered on 03/25/17 08:15; Admin Dose 10 MG; Start 03/24/17 at 10:30 Multivitamins 5 ml 5 ml DAILY GTB Last administered on 03/25/17 08:15; Admin Dose 5 ML; Start 03/25/17 at 09:00 Levetiracetam/ Sodium Chloride (Keppra Iv/NS) 105 ml @ 430 mls/hr Q12 IVPB Last administered on 03/25/17 09:39; Admin Dose 430 MLS/HR; Start 03/24/17 at 21:00 Pantoprazole 40 mg 40 mg BID IV Last administered on 03/25/17 08:15; Admin Dose 40 MG; Start 03/24/17 at 21:00 Potassium Chloride/Dextrose/ Sodium Chloride (KCl/D5-NS) 1,020 ml @ 100 mls/hr [id number] IV Last administered on 03/25/17 04:12; Admin Dose 100 MLS/HR; Start 03/24/17 at 18:00 KAYLEE FAN MD Mar 25, 2017 17:29
[2017-03-25 18:15] LABS: HAAIG REFLEX REFLEX FILED
[2017-03-25 19:20] LABS: HEPATITIS B CORE ANTIBODY NEGATIVE (NEGATIVE)
[2017-03-25] MEDS: ATORVASTATIN 40 MG TAB GTB SCH (22:01)
[2017-03-25] MEDS: INSULIN GLARGINE [LANtus] 3 ML PEN SC SCH (22:13)
[2017-03-26] VITALS (10 sets, daily range): BP systolic 113–148; BP diastolic 56–80; PULSE 96–125; RESP 17–20
[2017-03-26] MEDS: INSULIN ASPART [NOVOLOG] 3 ML PEN SC SCH ×4 (01:27→17:28)
[2017-03-26] MEDS: IMIPENEM-CILAST 500MG IV (PMX) 100 ML IVPB SCH ×4 (01:28→17:52)
[2017-03-26] MEDS: POTASSIUM CHLORIDE 40 MEQ in DEXTROSE 5%-0.9% NACL 1,000 ML IV SCH ×2 (01:35→10:48)
[2017-03-26] MEDS: DILTIAZEM 60 MG TAB GTB SCH ×3 (06:55→23:11)
[2017-03-26] MEDS: FUROSEMIDE 20 MG INJ IV SCH ×2 (07:05→17:53)
[2017-03-26] MEDS: POLYETHYLENE GLYCOL 17 GM PACKET GTB SCH (08:43)
[2017-03-26] MEDS: LEVETIRACETAM IV 500 MG in SOD CHLORIDE 0.9% 100 ML IVPB SCH ×2 (08:43→20:25)
[2017-03-26] MEDS: METOCLOPRAMIDE 10 MG INJ IV SCH (08:43)
[2017-03-26] MEDS: PANTOPRAZOLE 40 MG INJ IV SCH ×2 (08:43→20:26)
[2017-03-26] MEDS: ZINC SULFATE 220 MG CAP GTB SCH (08:43)
[2017-03-26] MEDS: traMADol 50 MG TAB GTB SCH ×2 (08:44→20:26)
[2017-03-26] MEDS: ENOXAPARIN 40 MG/0.4 ML SYG SC SCH (08:44)
[2017-03-26] MEDS: MULTIVITAMINS 5 ML CUP GTB SCH (11:46)
[2017-03-26] MEDS: VANCOMYCIN 750 MG in SOD CHLORIDE 0.9% 150 ML IVPB SCH (11:49)
--- NOTE | 2017-03-26 12:12 | CONS ---
Date/Time of Note Date/Time of Note DATE: 03/26/17 TIME: 12:07 Assessment/Plan Assessment/Plan Chief Complaint/Hosp Course assessment/impression - severe sepsis due to probable HCAP vs. aspiration event - probable HCAP vs. 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 - repeat CBC and CMP in AM - d/c vancomycin (03/22/2017-) - continue imipenem (03/22/2017-); it may be discontinued if she remains clinically stable management d/w Pt and her RN Problems: Consultation Date/Type/Reason Admit Date/Time Mar 19, 2017 at 01:44 Initial Consult Date 03/22/17 Type of Consultation: ID 24 HR Interval Summary Constitutional: improved Detailed Summary Eyes: no complaints ENT: no complaints Respiratory: no complaints Cardiovascular: no complaints Gastrointestinal: nausea, vomiting Genitourinary: other (FC) Musculoskeletal: no complaints Skin: no complaints Exam/Review of Systems Vital Signs Vitals Vital Signs Date Time Temp Pulse Resp B/P Pulse Ox O2 Delivery O2 Flow Rate FiO2 03/26/17 11:47 98.1 101 18 113/56 93 03/26/17 03:07 4.0 03/25/17 20:00 Nasal Cannula Intake and Output 03/25/17 03/25/17 03/26/17 15:00 23:00 07:00 Intake Total 705 ml 630 ml 1000 ml Output Total 360 ml 1000 ml 500 ml Balance 345 ml -370 ml 500 ml Exam Constitutional: alert, frail Psych: confusion Head: atraumatic, normocephalic Eyes: nl conjunctiva, nl lids ENMT: mucosa pink and moist, nl external ears & nose, nl nasal mucosa & septum Neck: supple Respiratory: clear to auscultation, normal air movement Cardiovascular: nl pulses, regular rate and rhythm Gastrointestinal: non-tender, other (GT), soft, No distended, No tender Genitourinary - Female: other (FC) Extremities: No edema Neurological: confused, lethargic Skin: nl turgor Results Result Diagram: 03/25/17 0600 03/25/17 0600 Results 24 hrs Laboratory Tests Test 03/25/17 14:26 03/25/17 18:17 03/25/17 22:09 03/26/17 01:20 Bedside Glucose 107 193 142 317 H Test 03/26/17 06:50 03/26/17 11:58 Bedside Glucose 289 H 117 Medications Medications Current Medications Atorvastatin Calcium (Lipitor) 40 mg HS GTB Last administered on 03/25/17 22: 01; Admin Dose 40 MG; Start 03/19/17 at 21:00 Bisacodyl (Dulcolax Supp) 10 mg DAILY PRN MD PRN; Start 03/19/17 at 05:00 Enoxaparin Sodium (Lovenox) 40 mg DAILY SC Last administered on 03/26/17 08:44 ; Admin Dose 40 MG; Start 03/19/17 at 09:00 Tramadol HCl (Ultram) 50 mg BID GTB Last administered on 03/26/17 08:44; Admin Dose 50 MG; Start 03/19/17 at 09:00 Zinc Sulfate (Zinc Sulfate) 220 mg DAILY GTB Last administered on 03/26/17 08: 43; Admin Dose 220 MG; Start 03/19/17 at 09:00 Acetaminophen (Tylenol Liquid) 650 mg Q4H PRN GTB MILD PAIN LEVEL 1-3 Last administered on 03/23/17 22:30; Admin Dose 650 MG; Start 03/19/17 at 06:00 Acetaminophen (Tylenol Liquid) 1,000 mg Q4H PRN PO PAIN LEVEL 4-6/10 Last administered on 03/22/17 03:30; Admin Dose 1,000 MG; Start 03/19/17 at 06:00 Insulin Aspart (Novolog Insulin Pen) NOVOLOG *MODERATE* ALGORI... Q6 SC Last administered on 03/26/17 07:09; Admin Dose 8 UNIT; Start 03/19/17 at 06:00 Miscellaneous Information 1 ea NOTE XX ; Start 03/19/17 at 06:00 Glucose (Glutose) 15 gm Q15M PRN PO DECREASED GLUCOSE; Start 03/19/17 at 06:00 Glucose (Glutose) 22.5 gm Q15M PRN PO DECREASED GLUCOSE; Start 03/19/17 at 06: 00 Dextrose (D50w Syringe) 25 ml Q15M PRN IV DECREASED GLUCOSE; Start 03/19/17 at 06:00 Dextrose (D50w Syringe) 50 ml Q15M PRN IV DECREASED GLUCOSE; Start 03/19/17 at 06:00 Glucagon (Glucagen) 1 mg Q15M PRN IM DECREASED GLUCOSE; Start 03/19/17 at 06:00 Glucose (Glutose) 15 gm Q15M PRN BUCCAL DECREASED GLUCOSE; Start 03/19/17 at 06 :00 Levetiracetam (Keppra Liquid) 500 mg BID GTB Last administered on 03/24/17 08: 48; Admin Dose 500 MG; Start 03/19/17 at 09:00; Status Future Hold Miscellaneous Information (Pending Santyl Order For Wound Care) This patient mahmood... PRN PRN XX WOUND CARE; Start 03/19/17 at 06:00 Sodium Biphosphate/ Sodium Phosphate (Fleet Enema) 133 ml DAILY PRN MD CONSTIPATION; Start 03/19/17 at 06:30 Diltiazem HCl (Cardizem) 60 mg Q8 GTB Last administered on 03/26/17 06:55; Admin Dose 60 MG; Start 03/19/17 at 14:00 Insulin Glargine 24 unit 24 unit DAILY@20 SC Last administered on 03/25/17 22: 13; Admin Dose 24 UNIT; Start 03/21/17 at 20:00 Imipenem/ Cilastatin Sodium (Primaxin 500 Mg/ 100 ml (Pmx)) 100 ml @ 100 mls/ hr Q6 IVPB Last administered on 03/26/17 11:49; Admin Dose 100 MLS/HR; Start 03/22/17 at 00:00 Metoprolol Tartrate (Lopressor) 5 mg Q6 PRN IV TACHYCARDIA Last administered on 03/23/17 18:02; Admin Dose 5 MG; Start 03/22/17 at 10:30 Morphine Sulfate 1 mg 1 mg Q4H PRN IV severe pain Last administered on 14:30; Admin Dose 1 MG; Start 03/22/17 at 12:00 Vancomycin HCl/ Sodium Chloride (Vancocin/NS) 150 ml @ 75 mls/hr Q12H IVPB Last administered on 03/26/17 11:49; Admin Dose 75 MLS/HR; Start 03/22/17 at 18 :00 Ondansetron HCl (Zofran Inj) 4 mg Q4H PRN IV NAUSEA AND/OR VOMITING Last administered on 03/25/17 01:28; Admin Dose 4 MG; Start 03/23/17 at 05:00 Polyethylene Glycol (Miralax) 17 gm DAILY GTB Last administered on 03/26/17 08 :43; Admin Dose 17 GM; Start 03/23/17 at 12:00 Metoclopramide HCl (Reglan) 10 mg BID IV Last administered on 03/26/17 08:43; Admin Dose 10 MG; Start 03/24/17 at 10:30 Multivitamins 5 ml 5 ml DAILY GTB Last administered on 03/26/17 11:46; Admin Dose 5 ML; Start 03/25/17 at 09:00 Levetiracetam/ Sodium Chloride (Keppra Iv/NS) 105 ml @ 430 mls/hr Q12 IVPB Last administered on 03/26/17 08:43; Admin Dose 430 MLS/HR; Start 03/24/17 at 21:00 Pantoprazole 40 mg 40 mg BID IV Last administered on 03/26/17 08:43; Admin Dose 40 MG; Start 03/24/17 at 21:00 Potassium Chloride/Dextrose/ Sodium Chloride (KCl/D5-NS) 1,020 ml @ 100 mls/hr [id number] IV Last administered on 03/26/17 01:35; Admin Dose 100 MLS/HR; Start 03/24/17 at 18:00 JOSE DREW M.D. Mar 26, 2017 12:12
--- NOTE | 2017-03-26 14:25 | CONS ---
Date/Time of Note Date/Time of Note DATE: 03/26/17 TIME: 14:24 Consult Date/Type/Reason Admit Date/Time Mar 19, 2017 at 01:44 Initial Consult Date 03/22/17 Type of Consultation: pulmonary Subjective Patient stable this morning no new events No evidence of respiratory distress Objective Vital Signs Date Time Temp Pulse Resp B/P Pulse Ox O2 Delivery O2 Flow Rate FiO2 03/26/17 12:25 102 03/26/17 11:47 98.1 18 113/56 93 03/26/17 07:40 Nasal Cannula 3.0 Intake and Output 03/25/17 03/25/17 03/26/17 15:00 23:00 07:00 Intake Total 705 ml 630 ml 1000 ml Output Total 360 ml 1000 ml 500 ml Balance 345 ml -370 ml 500 ml Exam PHYSICAL EXAMINATION: GENERAL: Elderly, chronically ill-appearing lady, appears comfortable at rest, no acute distress. VITAL SIGNS: As above NECK: Supple. No JVD or lymphadenopathy. CARDIAC: S1, S2, no added sounds or murmurs. CHEST: Diminished air entry bilaterally. ABDOMEN: Soft, nontender. No guarding or rebound. EXTREMITIES: No cyanosis, clubbing, edema. NEUROLOGIC: Generalized weakness. Results/Medications Result Diagram: 03/25/17 0600 03/25/17 0600 Results 24 hrs Laboratory Tests Test 03/25/17 14:26 03/25/17 18:17 03/25/17 22:09 03/26/17 01:20 Bedside Glucose 107 193 142 317 H Test 03/26/17 06:50 03/26/17 11:58 Bedside Glucose 289 H 117 Medications Current Medications Atorvastatin Calcium (Lipitor) 40 mg HS GTB Last administered on 03/25/17 22: 01; Admin Dose 40 MG; Start 03/19/17 at 21:00 Bisacodyl (Dulcolax Supp) 10 mg DAILY PRN [place] PRN; Start 03/19/17 at 05:00 Enoxaparin Sodium (Lovenox) 40 mg DAILY SC Last administered on 03/26/17 08:44 ; Admin Dose 40 MG; Start 03/19/17 at 09:00 Tramadol HCl (Ultram) 50 mg BID GTB Last administered on 03/26/17 08:44; Admin Dose 50 MG; Start 03/19/17 at 09:00 Zinc Sulfate (Zinc Sulfate) 220 mg DAILY GTB Last administered on 03/26/17 08: 43; Admin Dose 220 MG; Start 03/19/17 at 09:00 Acetaminophen (Tylenol Liquid) 650 mg Q4H PRN GTB MILD PAIN LEVEL 1-3 Last administered on 03/23/17 22:30; Admin Dose 650 MG; Start 03/19/17 at 06:00 Acetaminophen (Tylenol Liquid) 1,000 mg Q4H PRN PO PAIN LEVEL 4-6/10 Last administered on 03/22/17 03:30; Admin Dose 1,000 MG; Start 03/19/17 at 06:00 Insulin Aspart (Novolog Insulin Pen) NOVOLOG *MODERATE* ALGORI... Q6 SC Last administered on 03/26/17 07:09; Admin Dose 8 UNIT; Start 03/19/17 at 06:00 Miscellaneous Information 1 ea NOTE XX ; Start 03/19/17 at 06:00 Glucose (Glutose) 15 gm Q15M PRN PO DECREASED GLUCOSE; Start 03/19/17 at 06:00 Glucose (Glutose) 22.5 gm Q15M PRN PO DECREASED GLUCOSE; Start 03/19/17 at 06: 00 Dextrose (D50w Syringe) 25 ml Q15M PRN IV DECREASED GLUCOSE; Start 03/19/17 at 06:00 Dextrose (D50w Syringe) 50 ml Q15M PRN IV DECREASED GLUCOSE; Start 03/19/17 at 06:00 Glucagon (Glucagen) 1 mg Q15M PRN IM DECREASED GLUCOSE; Start 03/19/17 at 06:00 Glucose (Glutose) 15 gm Q15M PRN BUCCAL DECREASED GLUCOSE; Start 03/19/17 at 06 :00 Levetiracetam (Keppra Liquid) 500 mg BID GTB Last administered on 03/24/17 08: 48; Admin Dose 500 MG; Start 03/19/17 at 09:00; Status Future Hold Miscellaneous Information (Pending Santyl Order For Wound Care) This patient mahmood... PRN PRN XX WOUND CARE; Start 03/19/17 at 06:00 Sodium Biphosphate/ Sodium Phosphate (Fleet Enema) 133 ml DAILY PRN [place] CONSTIPATION; Start 03/19/17 at 06:30 Diltiazem HCl (Cardizem) 60 mg Q8 GTB Last administered on 03/26/17 13:50; Admin Dose 60 MG; Start 03/19/17 at 14:00 Insulin Glargine 24 unit 24 unit DAILY@20 SC Last administered on 03/25/17 22: 13; Admin Dose 24 UNIT; Start 03/21/17 at 20:00 Imipenem/ Cilastatin Sodium (Primaxin 500 Mg/ 100 ml (Pmx)) 100 ml @ 100 mls/ hr Q6 IVPB Last administered on 03/26/17 11:49; Admin Dose 100 MLS/HR; Start 03/22/17 at 00:00 Metoprolol Tartrate (Lopressor) 5 mg Q6 PRN IV TACHYCARDIA Last administered on 03/23/17 18:02; Admin Dose 5 MG; Start 03/22/17 at 10:30 Morphine Sulfate (morphine) 1 mg Q4H PRN IV severe pain Last administered on 14:30; Admin Dose 1 MG; Start 03/22/17 at 12:00 Ondansetron HCl (Zofran Inj) 4 mg Q4H PRN IV NAUSEA AND/OR VOMITING Last administered on 03/25/17 01:28; Admin Dose 4 MG; Start 03/23/17 at 05:00 Polyethylene Glycol (Miralax) 17 gm DAILY GTB Last administered on 03/26/17 08 :43; Admin Dose 17 GM; Start 03/23/17 at 12:00 Metoclopramide HCl (Reglan) 10 mg BID IV Last administered on 03/26/17 08:43; Admin Dose 10 MG; Start 03/24/17 at 10:30 Multivitamins 5 ml 5 ml DAILY GTB Last administered on 03/26/17 11:46; Admin Dose 5 ML; Start 03/25/17 at 09:00 Levetiracetam/ Sodium Chloride (Keppra Iv/NS) 105 ml @ 430 mls/hr Q12 IVPB Last administered on 03/26/17 08:43; Admin Dose 430 MLS/HR; Start 03/24/17 at 21:00 Pantoprazole 40 mg 40 mg BID IV Last administered on 03/26/17 08:43; Admin Dose 40 MG; Start 03/24/17 at 21:00 Potassium Chloride/Dextrose/ Sodium Chloride (KCl/D5-NS) 1,020 ml @ 100 mls/hr [id number] IV Last administered on 03/26/17t 01:35; Admin Dose 100 MLS/HR; Start 03/24/17 at 18:00 Assessment/Plan Chief Complaint/Hosp Course Assessment 1. Hypoxemic respiratory failure 2. Congestive cardiac failure 3. Possible aspiration component 4. Lower extremity weakness Plan 1. Aspiration precautions 2. Gentle diuresis 3. DVT GI prophylaxis 4. Consider [facility] transfer Problems: GINO SUTHERLAND MD[facility] Mar 26, 2017 14:25
--- NOTE | 2017-03-26 14:45 | CONS ---
Date/Time of Note Date/Time of Note DATE: 03/26/17 TIME: 14:43 Assessment/Plan Assessment/Plan Additional Assessment/Plan Sepsis Sinus tachycardia History of paroxysmal atrial tachycardia Preserved ejection fraction Psychiatric disorder Seizure disorder Volume overload -Lung examination improved today as well as less peripheral edema, continue IV diuretics as blood pressure and renal function permits. Maintain potassium above 4.0 and magnesium above 2.0. Consultation Date/Type/Reason Admit Date/Time Mar 19, 2017 at 01:44 Initial Consult Date 03/22/17 Type of Consultation: cv 24 HR Interval Summary Free Text/Dictation Shortness of breath is better, denies chest pain or palpitation Exam/Review of Systems Vital Signs Vitals Vital Signs Date Time Temp Pulse Resp B/P Pulse Ox O2 Delivery O2 Flow Rate FiO2 03/26/17 12:25 102 03/26/17 11:47 98.1 18 113/56 93 03/26/17 07:40 Nasal Cannula 3.0 Intake and Output 03/25/17 03/25/17 03/26/17 15:00 23:00 07:00 Intake Total 705 ml 630 ml 1000 ml Output Total 360 ml 1000 ml 500 ml Balance 345 ml -370 ml 500 ml Exam No apparent distress, follows commands Constitutional: alert Head: normocephalic Respiratory: other (Coarse breath sounds bilaterally, no wheezing) Cardiovascular: other (S1-S2 heard), regular rate and rhythm Gastrointestinal: bowel sounds, non-tender, soft Extremities: edema Results Result Diagram: 03/25/17 0600 03/25/17 0600 Results 24 hrs Laboratory Tests Test 03/25/17 18:17 03/25/17 22:09 03/26/17 01:20 03/26/17 06:50 Bedside Glucose 193 142 317 H 289 H Test 03/26/17 11:58 Bedside Glucose 117 Medications Medications Current Medications Atorvastatin Calcium (Lipitor) 40 mg HS GTB Last administered on 03/25/17 22: 01; Admin Dose 40 MG; Start 03/19/17 at 21:00 Bisacodyl (Dulcolax Supp) 10 mg DAILY PRN [place] PRN; Start 03/19/17 at 05:00 Enoxaparin Sodium (Lovenox) 40 mg DAILY SC Last administered on 03/26/17 08:44 ; Admin Dose 40 MG; Start 03/19/17 at 09:00 Tramadol HCl (Ultram) 50 mg BID GTB Last administered on 03/26/17 08:44; Admin Dose 50 MG; Start 03/19/17 at 09:00 Zinc Sulfate (Zinc Sulfate) 220 mg DAILY GTB Last administered on 03/26/17 08: 43; Admin Dose 220 MG; Start 03/19/17 at 09:00 Acetaminophen (Tylenol Liquid) 650 mg Q4H PRN GTB MILD PAIN LEVEL 1-3 Last administered on 03/23/17 22:30; Admin Dose 650 MG; Start 03/19/17 at 06:00 Acetaminophen (Tylenol Liquid) 1,000 mg Q4H PRN PO PAIN LEVEL 4-6/10 Last administered on 03/22/17 03:30; Admin Dose 1,000 MG; Start 03/19/17 at 06:00 Insulin Aspart (Novolog Insulin Pen) NOVOLOG *MODERATE* ALGORI... Q6 SC Last administered on 03/26/17 07:09; Admin Dose 8 UNIT; Start 03/19/17 at 06:00 Miscellaneous Information 1 ea NOTE XX ; Start 03/19/17 at 06:00 Glucose (Glutose) 15 gm Q15M PRN PO DECREASED GLUCOSE; Start 03/19/17 at 06:00 Glucose (Glutose) 22.5 gm Q15M PRN PO DECREASED GLUCOSE; Start 03/19/17 at 06: 00 Dextrose (D50w Syringe) 25 ml Q15M PRN IV DECREASED GLUCOSE; Start 03/19/17 at 06:00 Dextrose (D50w Syringe) 50 ml Q15M PRN IV DECREASED GLUCOSE; Start 03/19/17 at 06:00 Glucagon (Glucagen) 1 mg Q15M PRN IM DECREASED GLUCOSE; Start 03/19/17 at 06:00 Glucose (Glutose) 15 gm Q15M PRN BUCCAL DECREASED GLUCOSE; Start 03/19/17 at 06 :00 Levetiracetam (Keppra Liquid) 500 mg BID GTB Last administered on 03/24/17 08: 48; Admin Dose 500 MG; Start 03/19/17 at 09:00; Status Future Hold Miscellaneous Information (Pending [facility] Order For Wound Care) This patient mahmood... PRN PRN XX WOUND CARE; Start 03/19/17 at 06:00 Sodium Biphosphate/ Sodium Phosphate (Fleet Enema) 133 ml DAILY PRN [place] CONSTIPATION; Start 03/19/17 at 06:30 Diltiazem HCl (Cardizem) 60 mg Q8 GTB Last administered on 03/26/17 13:50; Admin Dose 60 MG; Start 03/19/17 at 14:00 Insulin Glargine 24 unit 24 unit DAILY@20 SC Last administered on 03/25/17 22: 13; Admin Dose 24 UNIT; Start 03/21/17 at 20:00 Imipenem/ Cilastatin Sodium (Primaxin 500 Mg/ 100 ml (Pmx)) 100 ml @ 100 mls/ hr Q6 IVPB Last administered on 03/26/17 11:49; Admin Dose 100 MLS/HR; Start 03/22/17 at 00:00 Metoprolol Tartrate (Lopressor) 5 mg Q6 PRN IV TACHYCARDIA Last administered on 03/23/17 18:02; Admin Dose 5 MG; Start 03/22/17 at 10:30 Morphine Sulfate (morphine) 1 mg Q4H PRN IV severe pain Last administered on 14:30; Admin Dose 1 MG; Start 03/22/17 at 12:00 Ondansetron HCl (Zofran Inj) 4 mg Q4H PRN IV NAUSEA AND/OR VOMITING Last administered on 03/25/17 01:28; Admin Dose 4 MG; Start 03/23/17 at 05:00 Polyethylene Glycol (Miralax) 17 gm DAILY GTB Last administered on 03/26/17 08 :43; Admin Dose 17 GM; Start 03/23/17 at 12:00 Metoclopramide HCl (Reglan) 10 mg BID IV Last administered on 03/26/17 08:43; Admin Dose 10 MG; Start 03/24/17 at 10:30 Multivitamins 5 ml 5 ml DAILY GTB Last administered on 03/26/17 11:46; Admin Dose 5 ML; Start 03/25/17 at 09:00 Levetiracetam/ Sodium Chloride (Keppra Iv/NS) 105 ml @ 430 mls/hr Q12 IVPB Last administered on 03/26/17 08:43; Admin Dose 430 MLS/HR; Start 03/24/17 at 21:00 Pantoprazole 40 mg 40 mg BID IV Last administered on 03/26/17 08:43; Admin Dose 40 MG; Start 03/24/17 at 21:00 Potassium Chloride/Dextrose/ Sodium Chloride (KCl/D5-NS) 1,020 ml @ 100 mls/hr [id number] IV Last administered on 03/26/17 01:35; Admin Dose 100 MLS/HR; Start 03/24/17 at 18:00 Gamal Coronel DO Mar 26, 2017 14:45
--- NOTE | 2017-03-26 16:57 | PN ---
Date/Time of Note Date/Time of Note DATE: 03/26/17 TIME: 16:55 Assessment/Plan VTE Prophylaxis VTE Prophylaxis Intervention: SCD's Lines/Catheters IV C[facility] Type ([facility] Peripheral IV Urinary Cath still in place: Yes Reason Cath still needed: urinary retention Assessment/Plan Chief Complaint/Hosp Course ASSESSMENT AND PLAN: - Sepsis with leukocytosis tachycardia, resolving. - Possible HCAP vs aspiration, continue abx per ID. Dr. Pitt is following in infection disease consultation. is following in pulmonology consultation. Continue bronchodilators and oxygen supplementation. - Sinus tachycardia, Dr. Candelario is following and cardiology consultation, continue telemetry monitoring. - Left hand swelling. Continue broad-spectrum antibiotics for possible cellulitis. - Seizure disorder. Continue Keppra. - Dysphagia with percutaneous endoscopic gastrostomy. Continue G-tube feeding, aspiration precautions. - Diabetes mellitus type 2. Continue NPH. - Dyslipidemia. Continue statins. - Hypertension. The patient is currently normotensive. - Schizophrenia and bipolar disorder. Continue Lovenox for deep venous thrombosis prophylaxis. Further recommendations based on clinical course. Plan of care was discussed with Dr. Aly. Problems: Subjective 24 Hr Interval Summary Free Text/Dictation Patient is awake alert, comfortable and supplemental oxygen. Exam/Review of Systems Vital Signs Vitals Vital Signs Date Time Temp Pulse Resp B/P Pulse Ox O2 Delivery O2 Flow Rate FiO2 03/26/17 16:39 108 03/26/17 16:23 98.1 18 123/58 95 03/26/17 07:40 Nasal Cannula 3.0 Intake and Output 03/25/17 03/25/17 03/26/17 15:00 23:00 07:00 Intake Total 705 ml 630 ml 1000 ml Output Total 360 ml 1000 ml 500 ml Balance 345 ml -370 ml 500 ml Exam PHYSICAL ASSESSMENT GENERAL: Well-developed, well-nourished female, currently awake alert. HEENT: Head is atraumatic, normocephalic. Pupils equal, round, reactive to light and accommodation. Oral mucosa is pink and moist. NECK: Supple, no cervical lymphadenopathy, no thyromegaly. CHEST: Lungs clear bilaterally, slightly diminished at the bases. CARDIOVASCULAR: Normal S1, S2. No murmurs, gallops, clicks, rubs noted. The patient is tachycardic. ABDOMEN: Round, soft, nondistended, nontender. G-tube with intact stoma.Left hand slight swelling. SKIN: There is no rash, petechiae. NEUROLOGIC: The patient is awake, alert, near baseline. Results Result Diagram: 03/25/17 0600 03/25/17 0600 Results 24 hrs Laboratory Tests Test 03/25/17 18:17 03/25/17 22:09 03/26/17 01:20 03/26/17 06:50 Bedside Glucose 193 142 317 H 289 H Test 03/26/17 11:58 Bedside Glucose 117 Medications Medications Current Medications Atorvastatin Calcium (Lipitor) 40 mg HS GTB Last administered on 03/25/17 22: 01; Admin Dose 40 MG; Start 03/19/17 at 21:00 Bisacodyl (Dulcolax Supp) 10 mg DAILY PRN [place] PRN; Start 03/19/17 at 05:00 Enoxaparin Sodium (Lovenox) 40 mg DAILY SC Last administered on 03/26/17 08:44 ; Admin Dose 40 MG; Start 03/19/17 at 09:00 Tramadol HCl (Ultram) 50 mg BID GTB Last administered on 03/26/17 08:44; Admin Dose 50 MG; Start 03/19/17 at 09:00 Zinc Sulfate (Zinc Sulfate) 220 mg DAILY GTB Last administered on 03/26/17 08: 43; Admin Dose 220 MG; Start 03/19/17 at 09:00 Acetaminophen (Tylenol Liquid) 650 mg Q4H PRN GTB MILD PAIN LEVEL 1-3 Last administered on 03/23/17 22:30; Admin Dose 650 MG; Start 03/19/17 at 06:00 Acetaminophen (Tylenol Liquid) 1,000 mg Q4H PRN PO PAIN LEVEL 4-6/10 Last administered on 03/22/17 03:30; Admin Dose 1,000 MG; Start 03/19/17 at 06:00 Insulin Aspart (Novolog Insulin Pen) NOVOLOG *MODERATE* ALGORI... Q6 SC Last administered on 03/26/17 07:09; Admin Dose 8 UNIT; Start 03/19/17 at 06:00 Miscellaneous Information 1 ea NOTE XX ; Start 03/19/17 at 06:00 Glucose (Glutose) 15 gm Q15M PRN PO DECREASED GLUCOSE; Start 03/19/17 at 06:00 Glucose (Glutose) 22.5 gm Q15M PRN PO DECREASED GLUCOSE; Start 03/19/17 at 06: 00 Dextrose (D50w Syringe) 25 ml Q15M PRN IV DECREASED GLUCOSE; Start 03/19/17 at 06:00 Dextrose (D50w Syringe) 50 ml Q15M PRN IV DECREASED GLUCOSE; Start 03/19/17 at 06:00 Glucagon (Glucagen) 1 mg Q15M PRN IM DECREASED GLUCOSE; Start 03/19/17 at 06:00 Glucose (Glutose) 15 gm Q15M PRN BUCCAL DECREASED GLUCOSE; Start 03/19/17 at 06 :00 Levetiracetam (Keppra Liquid) 500 mg BID GTB Last administered on 03/24/17 08: 48; Admin Dose 500 MG; Start 03/19/17 at 09:00; Status Future Hold Miscellaneous Information (Pending Santyl Order For Wound Care) This patient mahmood... PRN PRN XX WOUND CARE; Start 03/19/17 at 06:00 Sodium Biphosphate/ Sodium Phosphate (Fleet Enema) 133 ml DAILY PRN [place] CONSTIPATION; Start 03/19/17 at 06:30 Diltiazem HCl (Cardizem) 60 mg Q8 GTB Last administered on 03/26/17 13:50; Admin Dose 60 MG; Start 03/19/17 at 14:00 Insulin Glargine 24 unit 24 unit DAILY@20 SC Last administered on 03/25/17 22: 13; Admin Dose 24 UNIT; Start 03/21/17 at 20:00 Imipenem/ Cilastatin Sodium (Primaxin 500 Mg/ 100 ml (Pmx)) 100 ml @ 100 mls/ hr Q6 IVPB Last administered on 03/26/17 11:49; Admin Dose 100 MLS/HR; Start 03/22/17 at 00:00 Metoprolol Tartrate (Lopressor) 5 mg Q6 PRN IV TACHYCARDIA Last administered on 03/23/17 18:02; Admin Dose 5 MG; Start 03/22/17 at 10:30 Morphine Sulfate (morphine) 1 mg Q4H PRN IV severe pain Last administered on 14:30; Admin Dose 1 MG; Start 03/22/17 at 12:00 Ondansetron HCl (Zofran Inj) 4 mg Q4H PRN IV NAUSEA AND/OR VOMITING Last administered on 03/25/17 01:28; Admin Dose 4 MG; Start 03/23/17 at 05:00 Polyethylene Glycol (Miralax) 17 gm DAILY GTB Last administered on 03/26/17 08 :43; Admin Dose 17 GM; Start 03/23/17 at 12:00 Metoclopramide HCl (Reglan) 10 mg BID IV Last administered on 03/26/17 08:43; Admin Dose 10 MG; Start 03/24/17 at 10:30 Multivitamins 5 ml 5 ml DAILY GTB Last administered on 03/26/17 11:46; Admin Dose 5 ML; Start 03/25/17 at 09:00 Levetiracetam/ Sodium Chloride (Keppra Iv/NS) 105 ml @ 430 mls/hr Q12 IVPB Last administered on 03/26/17 08:43; Admin Dose 430 MLS/HR; Start 03/24/17 at 21:00 Pantoprazole (Protonix Iv) 40 mg BID IV Last administered on 03/26/17 08:43; Admin Dose 40 MG; Start 03/24/17 at 21:00 DENA SALGUERO Mar 26, 2017 16:57
--- NOTE | 2017-03-26 19:32 | CONS ---
Date/Time of Note Date/Time of Note DATE: 03/26/17 TIME: 19:30 Assessment/Plan Assessment/Plan Additional Assessment/Plan IMPRESSION: 1. nausea with vomiting: KUB negative 2. Possible sepsis with leukocytosis tachycardia. 3. Possible HCAP 4. Sinus tachycardia, most likely secondary to dehydration. 5. Left arm/hand swelling. 6. Seizure disorder. 7. Dysphagia with percutaneous endoscopic gastrostomy. 8. Iron deficiency anemia 9 abnormal liver function test 10. Diabetic gastroparesis RECOMMENDATION 1. change pepcid to protonix iv bid in case n/v due to PUD, gastritis, esophagitis 2. change bowel regiman to miralax daily 3. add reglan 10 mg iv bid to see if it will help with the nausea 5. continue to hold tube feed for now (as she is still nauseous and awaiting KUB from today) but ok for meds 6. continue GT to low intermittent suctioning 7. stop GT iron as it can be constipating. will recheck iron panel and replete by IV if low 8. stop vitamin C as we replete iron if low by IV and to minimize GT load 9. continue D5 LR with 20 mEQ KCL so pt don't need GT potassium to minimize constipation and nausea (oral KCL can cause nausea) 10. Ultrasound of the liver, acute hepatitis panel hepatitis panel negative. Ultrasound of the abdomen not done. 11. Will increase the dose of Reglan Consultation Date/Type/Reason Admit Date/Time Mar 19, 2017 at 01:44 Initial Consult Date 03/22/17 Type of Consultation: cv 24 HR Interval Summary Constitutional: no complaints Exam/Review of Systems Vital Signs Vitals Vital Signs Date Time Temp Pulse Resp B/P Pulse Ox O2 Delivery O2 Flow Rate FiO2 03/26/17 16:39 108 03/26/17 16:23 98.1 18 123/58 95 03/26/17 07:40 Nasal Cannula 3.0 Intake and Output 03/25/17 03/25/17 03/26/17 15:00 23:00 07:00 Intake Total 705 ml 630 ml 1000 ml Output Total 360 ml 1000 ml 500 ml Balance 345 ml -370 ml 500 ml Exam Constitutional: alert, oriented, well developed Psych: nl mood/affect, no complaints Head: atraumatic, normocephalic Eyes: EOMI, PERRL, nl conjunctiva, nl lids, nl sclera ENMT: nl external ears & nose, nl lips & teeth, nl nasal mucosa & septum Neck: non-tender, supple Respiratory: clear to auscultation, normal air movement Cardiovascular: nl pulses, regular rate and rhythm Gastrointestinal: nl liver, spleen, non-tender, soft Musculoskeletal: nl extremities to inspection, nl gait and stance Extremities: normal pulses Neurological: MACHINE [employer] II-XII intact, nl mental status, nl speech, nl strength Skin: nl turgor, No rash or lesions Lymph: nl lymph nodes Results Result Diagram: 03/25/17 0603/25/17 06 Results 24 hrs Laboratory Tests Test 03/25/17 22:09 03/26/17 01:20 03/26/17 06:50 03/26/17 11:58 Bedside Glucose 142 317 H 289 H 117 Test 03/26/17 17:17 Bedside Glucose 119 Medications Medications Current Medications Atorvastatin Calcium (Lipitor) 40 mg HS GTB Last administered on 03/25/17 22: 01; Admin Dose 40 MG; Start 03/19/17 at 21:00 Bisacodyl (Dulcolax Supp) 10 mg DAILY PRN [place] PRN; Start 03/19/17 at 05:00 Enoxaparin Sodium (Lovenox) 40 mg DAILY SC Last administered on 03/26/17 08:44 ; Admin Dose 40 MG; Start 03/19/17 at 09:00 Tramadol HCl (Ultram) 50 mg BID GTB Last administered on 03/26/17 08:44; Admin Dose 50 MG; Start 03/19/17 at 09:00 Zinc Sulfate (Zinc Sulfate) 220 mg DAILY GTB Last administered on 03/26/17 08: 43; Admin Dose 220 MG; Start 03/19/17 at 09:00 Acetaminophen (Tylenol Liquid) 650 mg Q4H PRN GTB MILD PAIN LEVEL 1-3 Last administered on 03/23/17 22:30; Admin Dose 650 MG; Start 03/19/17 at 06:00 Acetaminophen (Tylenol Liquid) 1,000 mg Q4H PRN PO PAIN LEVEL 4-6/10 Last administered on 03/22/17 03:30; Admin Dose 1,000 MG; Start 03/19/17 at 06:00 Insulin Aspart (Novolog Insulin Pen) NOVOLOG *MODERATE* ALGORI... Q6 SC Last administered on 03/26/17 07:09; Admin Dose 8 UNIT; Start 03/19/17 at 06:00 Miscellaneous Information 1 ea NOTE XX ; Start 03/19/17 at 06:00 Glucose (Glutose) 15 gm Q15M PRN PO DECREASED GLUCOSE; Start 03/19/17 at 06:00 Glucose (Glutose) 22.5 gm Q15M PRN PO DECREASED GLUCOSE; Start 03/19/17 at 06: 00 Dextrose (D50w Syringe) 25 ml Q15M PRN IV DECREASED GLUCOSE; Start 03/19/17 at 06:00 Dextrose (D50w Syringe) 50 ml Q15M PRN IV DECREASED GLUCOSE; Start 03/19/17 at 06:00 Glucagon (Glucagen) 1 mg Q15M PRN IM DECREASED GLUCOSE; Start 03/19/17 at 06:00 Glucose (Glutose) 15 gm Q15M PRN BUCCAL DECREASED GLUCOSE; Start 03/19/17 at 06 :00 Levetiracetam (Keppra Liquid) 500 mg BID GTB Last administered on 03/24/17 08: 48; Admin Dose 500 MG; Start 03/19/17 at 09:00; Status Future Hold Miscellaneous Information (Pending Santyl Order For Wound Care) This patient mahmood... PRN PRN XX WOUND CARE; Start 03/19/17 at 06:00 Sodium Biphosphate/ Sodium Phosphate (Fleet Enema) 133 ml DAILY PRN [place] CONSTIPATION; Start 03/19/17 at 06:30 Diltiazem HCl (Cardizem) 60 mg Q8 GTB Last administered on 03/26/17 13:50; Admin Dose 60 MG; Start 03/19/17 at 14:00 Insulin Glargine 24 unit 24 unit DAILY@20 SC Last administered on 03/25/17 22: 13; Admin Dose 24 UNIT; Start 03/21/17 at 20:00 Imipenem/ Cilastatin Sodium (Primaxin 500 Mg/ 100 ml (Pmx)) 100 ml @ 100 mls/ hr Q6 IVPB Last administered on 03/26/17 17:52; Admin Dose 100 MLS/HR; Start 03/22/17 at 00:00 Metoprolol Tartrate (Lopressor) 5 mg Q6 PRN IV TACHYCARDIA Last administered on 03/23/17 18:02; Admin Dose 5 MG; Start 03/22/17 at 10:30 Morphine Sulfate (morphine) 1 mg Q4H PRN IV severe pain Last administered on 14:30; Admin Dose 1 MG; Start 03/22/17 at 12:00 Ondansetron HCl (Zofran Inj) 4 mg Q4H PRN IV NAUSEA AND/OR VOMITING Last administered on 03/25/17 01:28; Admin Dose 4 MG; Start 03/23/17 at 05:00 Polyethylene Glycol (Miralax) 17 gm DAILY GTB Last administered on 03/26/17 08 :43; Admin Dose 17 GM; Start 03/23/17 at 12:00 Metoclopramide HCl (Reglan) 10 mg BID IV Last administered on 03/26/17 08:43; Admin Dose 10 MG; Start 03/24/17 at 10:30 Multivitamins 5 ml 5 ml DAILY GTB Last administered on 03/26/17 11:46; Admin Dose 5 ML; Start 03/25/17 at 09:00 Levetiracetam/ Sodium Chloride (Keppra Iv/NS) 105 ml @ 430 mls/hr Q12 IVPB Last administered on 03/26/17 08:43; Admin Dose 430 MLS/HR; Start 03/24/17 at 21:00 Pantoprazole (Protonix Iv) 40 mg BID IV Last administered on 03/26/17 08:43; Admin Dose 40 MG; Start 03/24/17 at 21:00 KAYLEE FAN MD Mar 26, 2017 19:32
[2017-03-26] MEDS: ATORVASTATIN 40 MG TAB GTB SCH (20:26)
[2017-03-26] MEDS: INSULIN GLARGINE [LANtus] 3 ML PEN SC SCH (20:28)
[2017-03-27] VITALS (10 sets, daily range): BP systolic 126–136; BP diastolic 60–66; PULSE 87–107; RESP 18–19
[2017-03-27] MEDS: IMIPENEM-CILAST 500MG IV (PMX) 100 ML IVPB SCH ×2 (00:12→05:14)
[2017-03-27] MEDS: METOCLOPRAMIDE 10 MG INJ IV SCH ×4 (00:12→17:31)
[2017-03-27] MEDS: DILTIAZEM 60 MG TAB GTB SCH ×3 (05:10→23:01)
[2017-03-27] MEDS: FUROSEMIDE 20 MG INJ IV SCH ×2 (05:10→17:47)
[2017-03-27] MEDS: INSULIN ASPART [NOVOLOG] 3 ML PEN SC SCH ×5 (05:29→21:35)
[2017-03-27 07:47] LABS: ADD SCAN DIFF NO
[2017-03-27 07:59] LABS: ABNORMAL IP MESSAGE 1; HEMATOCRIT 32.1 % (37.0-47.0); HEMOGLOBIN 10.3 g/dl (12.0-16.0); MEAN CORPUSCULAR HEMOGLOBIN 30.8 pg (29.0-33.0); MEAN CORPUSCULAR HGB CONC 32.1 g/dl (32.0-37.0); MEAN CORPUSCULAR VOLUME 96.1 fl (82.0-101.0); MEAN PLATELET VOLUME 11.4 fl (7.4-10.4); PLATELET COUNT 541 10^3/UL (140-415); RED BLOOD COUNT 3.34 10^6/ul (4.20-5.40); RED CELL DISTRIBUTION WIDTH 14.6 % (11.5-14.5); WHITE BLOOD COUNT 5.8 10^3/ul (4.8-10.8)
[2017-03-27] MEDS: LEVETIRACETAM IV 500 MG in SOD CHLORIDE 0.9% 100 ML IVPB SCH (08:22)
[2017-03-27] MEDS: POLYETHYLENE GLYCOL 17 GM PACKET GTB SCH (08:22)
[2017-03-27] MEDS: ZINC SULFATE 220 MG CAP GTB SCH (08:23)
[2017-03-27] MEDS: traMADol 50 MG TAB GTB SCH ×2 (08:23→21:25)
[2017-03-27] MEDS: PANTOPRAZOLE 40 MG INJ IV SCH ×2 (08:23→21:00)
[2017-03-27] MEDS: MULTIVITAMINS 5 ML CUP GTB SCH (08:24)
[2017-03-27] MEDS: ENOXAPARIN 40 MG/0.4 ML SYG SC SCH (08:42)
[2017-03-27] MEDS ORDERED: COLLAGENASE 30 GM TUBE TOP PRN (10:30)
[2017-03-27 11:18] LABS: EOSINOPHILS # 0.5 10^3/ul (0.0-0.5); LYMPHOCYTES # 1.9 10^3/ul (0.8-2.9); MONOCYTE # 0.3 10^3/ul (0.3-0.9); NEUTROPHIL # 3.1 10^3/ul (1.6-7.5); PLATELET ESTIMATE PLT APPEAR INCREASED
--- NOTE | 2017-03-27 11:18 | CONS ---
Date/Time of Note Date/Time of Note DATE: 03/27/17 TIME: 11:13 Assessment/Plan Assessment/Plan Chief Complaint/Hosp Course assessment/impression - severe sepsis due to probable HCAP vs. aspiration event - probable HCAP vs. 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 Note: vancomycin (03/22/2017-03/26/2017) and imipenem (03/22/2017-03/27/2017) recommendations - d/c imipenem (03/22/2017-); then monitor Pt off systemic antibiotics management d/w Pt Problems: Consultation Date/Type/Reason Admit Date/Time Mar 19, 2017 at 01:44 Initial Consult Date 03/22/17 Type of Consultation: ID 24 HR Interval Summary Free Text/Dictation lethargic and answered only a few questions Constitutional: other (hungry) Detailed Summary Respiratory: no complaints Gastrointestinal: other (hungry) Genitourinary: other (FC) Exam/Review of Systems Vital Signs Vitals Vital Signs Date Time Temp Pulse Resp B/P Pulse Ox O2 Delivery O2 Flow Rate FiO2 03/27/17 08:40 103 03/27/17 07:55 98.0 19 134/62 93 03/27/17 05:53 4.0 03/26/17 19:52 Nasal Cannula Intake and Output 03/26/17 03/26/17 03/27/17 15:00 23:00 07:00 Intake Total 100 ml 1270 ml Output Total 800 ml Balance 100 ml 470 ml Exam Constitutional: frail Psych: confusion Head: atraumatic, normocephalic Eyes: nl conjunctiva, nl lids, nl sclera ENMT: nl external ears & nose Respiratory: clear to auscultation, normal air movement Cardiovascular: nl pulses, regular rate and rhythm Gastrointestinal: non-tender, other (GT), soft, No tender Genitourinary - Female: other (FC) Musculoskeletal: nl extremities to inspection Extremities: edema (trace) Neurological: confused Results Result Diagram: 03/27/17 0636 03/25/17 0600 Results 24 hrs Laboratory Tests Test 03/26/17 11:58 03/26/17 17:17 03/26/17 20:17 03/27/17 05:23 Bedside Glucose 117 119 126 246 H Test 03/27/17 06:36 White Blood Count 5.8 # Red Blood Count 3.34 L Hemoglobin 10.3 L Hematocrit 32.1 L Mean Corpuscular Volume 96.1 Mean Corpuscular Hemoglobin 30.8 Mean Corpuscular Hemoglobin Concent 32.1 Red Cell Distribution Width 14.6 H Platelet Count 541 #H Mean Platelet Volume 11.4 H Magnesium Level 1.6 L Medications Medications Current Medications Atorvastatin Calcium (Lipitor) 40 mg HS GTB Last administered on 03/26/17 20: 26; Admin Dose 40 MG; Start 03/19/17 at 21:00 Bisacodyl (Dulcolax Supp) 10 mg DAILY PRN [place] PRN; Start 03/19/17 at 05:00 Enoxaparin Sodium (Lovenox) 40 mg DAILY SC Last administered on 03/27/17 08:42 ; Admin Dose 40 MG; Start 03/19/17 at 09:00 Tramadol HCl (Ultram) 50 mg BID GTB Last administered on 03/27/17 08:23; Admin Dose 50 MG; Start 03/19/17 at 09:00 Zinc Sulfate (Zinc Sulfate) 220 mg DAILY GTB Last administered on 03/27/17 08: 23; Admin Dose 220 MG; Start 03/19/17 at 09:00 Acetaminophen (Tylenol Liquid) 650 mg Q4H PRN GTB MILD PAIN LEVEL 1-3 Last administered on 03/23/17 22:30; Admin Dose 650 MG; Start 03/19/17 at 06:00 Acetaminophen (Tylenol Liquid) 1,000 mg Q4H PRN PO PAIN LEVEL 4-6/10 Last administered on 03/22/17 03:30; Admin Dose 1,000 MG; Start 03/19/17 at 06:00 Insulin Aspart (Novolog Insulin Pen) NOVOLOG *MODERATE* ALGORI... Q6 SC Last administered on 03/27/17 05:29; Admin Dose 6 UNIT; Start 03/19/17 at 06:00 Miscellaneous Information 1 ea NOTE XX ; Start 03/19/17 at 06:00 Glucose (Glutose) 15 gm Q15M PRN PO DECREASED GLUCOSE; Start 03/19/17 at 06:00 Glucose (Glutose) 22.5 gm Q15M PRN PO DECREASED GLUCOSE; Start 03/19/17 at 06: 00 Dextrose (D50w Syringe) 25 ml Q15M PRN IV DECREASED GLUCOSE; Start 03/19/17 at 06:00 Dextrose (D50w Syringe) 50 ml Q15M PRN IV DECREASED GLUCOSE; Start 03/19/17 at 06:00 Glucagon (Glucagen) 1 mg Q15M PRN IM DECREASED GLUCOSE; Start 03/19/17 at 06:00 Glucose (Glutose) 15 gm Q15M PRN BUCCAL DECREASED GLUCOSE; Start 03/19/17 at 06 :00 Levetiracetam (Keppra Liquid) 500 mg BID GTB Last administered on 03/24/17 08: 48; Admin Dose 500 MG; Start 03/19/17 at 09:00; Status Future Hold Miscellaneous Information (Pending Santyl Order For Wound Care) This patient mahmood... PRN PRN XX WOUND CARE; Start 03/19/17 at 06:00 Sodium Biphosphate/ Sodium Phosphate (Fleet Enema) 133 ml DAILY PRN [place] CONSTIPATION; Start 03/19/17 at 06:30 Diltiazem HCl (Cardizem) 60 mg Q8 GTB Last administered on 03/27/17 05:10; Admin Dose 60 MG; Start 03/19/17 at 14:00 Insulin Glargine 24 unit 24 unit DAILY@20 SC Last administered on 03/26/17 20: 28; Admin Dose 24 UNIT; Start 03/21/17 at 20:00 Imipenem/ Cilastatin Sodium (Primaxin 500 Mg/ 100 ml (Pmx)) 100 ml @ 100 mls/ hr Q6 IVPB Last administered on 03/27/17 05:14; Admin Dose 100 MLS/HR; Start 03/22/17 at 00:00 Metoprolol Tartrate (Lopressor) 5 mg Q6 PRN IV TACHYCARDIA Last administered on 03/23/17 18:02; Admin Dose 5 MG; Start 03/22/17 at 10:30 Morphine Sulfate (morphine) 1 mg Q4H PRN IV severe pain Last administered on 14:30; Admin Dose 1 MG; Start 03/22/17 at 12:00 Ondansetron HCl (Zofran Inj) 4 mg Q4H PRN IV NAUSEA AND/OR VOMITING Last administered on 03/25/17 01:28; Admin Dose 4 MG; Start 03/23/17 at 05:00 Polyethylene Glycol (Miralax) 17 gm DAILY GTB Last administered on 03/27/17 08 :22; Admin Dose 17 GM; Start 03/23/17 at 12:00 Multivitamins 5 ml 5 ml DAILY GTB Last administered on 03/27/17 08:24; Admin Dose 5 ML; Start 03/25/17 at 09:00 Levetiracetam/ Sodium Chloride (Keppra Iv/NS) 105 ml @ 430 mls/hr Q12 IVPB Last administered on 03/27/17 08:22; Admin Dose 430 MLS/HR; Start 03/24/17 at 21:00 Pantoprazole (Protonix Iv) 40 mg BID IV Last administered on 03/27/17 08:23; Admin Dose 40 MG; Start 03/24/17 at 21:00 Metoclopramide HCl (Reglan) 10 mg Q6 IV Last administered on 03/27/17 05:10; Admin Dose 10 MG; Start 03/27/17 at 00:00 Collagenase (Santyl) 1 applic DAILY TOP ; Start 03/27/17 at 12:00 Collagenase (Santyl) 1 applic PRN PRN TOP WOUND CARE; Start 03/27/17 at 10:30 JOSE DREW M.D. Mar 27, 2017 11:18
[2017-03-27 12:34] LABS: ALBUMIN 3.1 g/dl (3.3-4.9)
[2017-03-27 12:35] LABS: POTASSIUM 4.3 mmol/L (3.5-5.1)
[2017-03-27 12:37] LABS: ALBUMIN/GLOBULIN RATIO 0.79; BILIRUBIN,INDIRECT 0.2 mg/dl (0-1.1); BILIRUBIN,TOTAL 0.2 mg/dl (0.2-1.3); CREATININE 0.48 mg/dl (0.44-1.00)
[2017-03-27 12:38] LABS: CALCIUM 9.2 mg/dl (8.4-10.2)
[2017-03-27] MEDS: COLLAGENASE 30 GM TUBE TOP SCH (14:36)
--- NOTE | 2017-03-27 16:07 | CONS ---
Date/Time of Note Date/Time of Note DATE: 03/27/17 TIME: 16:06 Consult Date/Type/Reason Admit Date/Time Mar 19, 2017 at 01:44 Initial Consult Date 03/22/17 Type of Consultation: pulmonary Subjective Patient comfortable this morning no new events Objective Vital Signs Date Time Temp Pulse Resp B/P Pulse Ox O2 Delivery O2 Flow Rate FiO2 03/27/17 12:27 107 03/27/17 11:57 98.0 18 126/60 99 03/27/17 05:53 4.0 03/26/17 19:52 Nasal Cannula Intake and Output 03/26/17 03/26/17 03/27/17 15:00 23:00 07:00 Intake Total 100 ml 1270 ml Output Total 800 ml Balance 100 ml 470 ml Exam PHYSICAL EXAMINATION: GENERAL: Elderly, chronically ill-appearing lady, appears comfortable at rest, no acute distress. VITAL SIGNS: As above NECK: Supple. No JVD or lymphadenopathy. CARDIAC: S1, S2, no added sounds or murmurs. CHEST: Diminished air entry bilaterally. ABDOMEN: Soft, nontender. No guarding or rebound. EXTREMITIES: No cyanosis, clubbing, edema. NEUROLOGIC: Generalized weakness. Results/Medications Result Diagram: 03/27/17 0636 03/27/17 0636 Results 24 hrs Laboratory Tests Test 03/26/17 17:17 03/26/17 20:17 03/27/17 05:23 03/27/17 06:36 Bedside Glucose 119 126 246 H White Blood Count 5.8 # Red Blood Count 3.34 L Hemoglobin 10.3 L Hematocrit 32.1 L Mean Corpuscular Volume 96.1 Mean Corpuscular Hemoglobin 30.8 Mean Corpuscular Hemoglobin Concent 32.1 Red Cell Distribution Width 14.6 H Platelet Count 541 #H Mean Platelet Volume 11.4 H Neutrophils % 53.0 Lymphocytes % 33.0 Monocytes % 6.0 Eosinophils % 8.0 H Neutrophils # 3.1 Lymphocytes # 1.9 Monocytes # 0.3 Eosinophils # 0.5 Differential Comment MANUAL DIFF Platelet Estimate PLT APPEAR INCREASED Sodium Level 135 Potassium Level 4.3 Chloride Level 92 L Carbon Dioxide Level 30 Anion Gap 17 H Blood Urea Nitrogen 22 H Creatinine 0.48 Glucose Level 261 H Calcium Level 9.2 Magnesium Level 1.6 L Total Bilirubin 0.2 Direct Bilirubin 0.00 Indirect Bilirubin 0.2 Aspartate Amino Transf (AST/SGOT) 52 H Alanine Aminotransferase (ALT/SGPT) 63 Alkaline Phosphatase 255 H Total Protein 7.0 Albumin 3.1 L Globulin 3.90 H Albumin/Globulin Ratio 0.79 Test 03/27/17 12:10 Bedside Glucose 281 H Medications Current Medications Atorvastatin Calcium (Lipitor) 40 mg HS GTB Last administered on 03/26/17 20: 26; Admin Dose 40 MG; Start 03/19/17 at 21:00 Bisacodyl (Dulcolax Supp) 10 mg DAILY PRN [place] PRN; Start 03/19/17 at 05:00 Enoxaparin Sodium (Lovenox) 40 mg DAILY SC Last administered on 03/27/17 08:42 ; Admin Dose 40 MG; Start 03/19/17 at 09:00 Tramadol HCl (Ultram) 50 mg BID GTB Last administered on 03/27/17 08:23; Admin Dose 50 MG; Start 03/19/17 at 09:00 Zinc Sulfate (Zinc Sulfate) 220 mg DAILY GTB Last administered on 03/27/17 08: 23; Admin Dose 220 MG; Start 03/19/17 at 09:00 Acetaminophen (Tylenol Liquid) 650 mg Q4H PRN GTB MILD PAIN LEVEL 1-3 Last administered on 03/23/17 22:30; Admin Dose 650 MG; Start 03/19/17 at 06:00 Acetaminophen (Tylenol Liquid) 1,000 mg Q4H PRN PO PAIN LEVEL 4-6/10 Last administered on 03/22/17 03:30; Admin Dose 1,000 MG; Start 03/19/17 at 06:00 Miscellaneous Information 1 ea NOTE XX ; Start 03/19/17 at 06:00 Glucose (Glutose) 15 gm Q15M PRN PO DECREASED GLUCOSE; Start 03/19/17 at 06:00 Glucose (Glutose) 22.5 gm Q15M PRN PO DECREASED GLUCOSE; Start 03/19/17 at 06: 00 Dextrose (D50w Syringe) 25 ml Q15M PRN IV DECREASED GLUCOSE; Start 03/19/17 at 06:00 Dextrose (D50w Syringe) 50 ml Q15M PRN IV DECREASED GLUCOSE; Start 03/19/17 at 06:00 Glucagon (Glucagen) 1 mg Q15M PRN IM DECREASED GLUCOSE; Start 03/19/17 at 06:00 Glucose (Glutose) 15 gm Q15M PRN BUCCAL DECREASED GLUCOSE; Start 03/19/17 at 06 :00 Levetiracetam (Keppra Liquid) 500 mg BID GTB Last administered on 03/24/17 08: 48; Admin Dose 500 MG; Start 03/19/17 at 09:00; Status Future Hold Miscellaneous Information (Pending Santyl Order For Wound Care) This patient mahmood... PRN PRN XX WOUND CARE; Start 03/19/17 at 06:00 Sodium Biphosphate/ Sodium Phosphate (Fleet Enema) 133 ml DAILY PRN [place] CONSTIPATION; Start 03/19/17 at 06:30 Diltiazem HCl (Cardizem) 60 mg Q8 GTB Last administered on 03/27/17 14:35; Admin Dose 60 MG; Start 03/19/17 at 14:00 Metoprolol Tartrate (Lopressor) 5 mg Q6 PRN IV TACHYCARDIA Last administered on 03/23/17 18:02; Admin Dose 5 MG; Start 03/22/17 at 10:30 Morphine Sulfate (morphine) 1 mg Q4H PRN IV severe pain Last administered on 14:30; Admin Dose 1 MG; Start 03/22/17 at 12:00 Ondansetron HCl (Zofran Inj) 4 mg Q4H PRN IV NAUSEA AND/OR VOMITING Last administered on 03/25/17 01:28; Admin Dose 4 MG; Start 03/23/17 at 05:00 Polyethylene Glycol (Miralax) 17 gm DAILY GTB Last administered on 03/27/17 08 :22; Admin Dose 17 GM; Start 03/23/17 at 12:00 Multivitamins 5 ml 5 ml DAILY GTB Last administered on 03/27/17 08:24; Admin Dose 5 ML; Start 03/25/17 at 09:00 Levetiracetam/ Sodium Chloride (Keppra Iv/NS) 105 ml @ 430 mls/hr Q12 IVPB Last administered on 03/27/17 08:22; Admin Dose 430 MLS/HR; Start 03/24/17 at 21:00 Pantoprazole (Protonix Iv) 40 mg BID IV Last administered on 03/27/17 08:23; Admin Dose 40 MG; Start 03/24/17 at 21:00 Metoclopramide HCl (Reglan) 10 mg Q6 IV Last administered on 03/27/17 12:11; Admin Dose 10 MG; Start 03/27/17 at 00:00 Collagenase (Santyl) 1 applic DAILY TOP Last administered on 03/27/17 14:36; Admin Dose 1 APPLIC; Start 03/27/17 at 12:00 Collagenase (Santyl) 1 applic PRN PRN TOP WOUND CARE; Start 03/27/17 at 10:30 Insulin Glargine (Lantus) 30 unit DAILY@20 SC ; Start 03/27/17 at 20:00 Insulin Aspart (Novolog Insulin Pen) NOVOLOG *MILD* ALGORI... Q4 SC ; Start at 17:00 Assessment/Plan Chief Complaint/Hosp Course Assessment 1. Hypoxemic respiratory failure 2. Congestive cardiac failure 3. Possible aspiration component 4. Lower extremity weakness Plan 1. Aspiration precautions 2. Gentle diuresis 3. DVT GI prophylaxis 4. Consider Amos transfer Problems: GINO SUTHERLAND MD, [facility] Mar 27, 2017 16:07
--- NOTE | 2017-03-27 17:04 | CONS ---
Date/Time of Note Date/Time of Note DATE: 03/27/17 TIME: 17:03 Assessment/Plan Assessment/Plan Additional Assessment/Plan IMPRESSION: 1. nausea with vomiting: KUB negative 2. Possible sepsis with leukocytosis tachycardia. 3. Possible HCAP 4. Sinus tachycardia, most likely secondary to dehydration. 5. Left arm/hand swelling. 6. Seizure disorder. 7. Dysphagia with percutaneous endoscopic gastrostomy. 8. Iron deficiency anemia 9 abnormal liver function test 10. Diabetic gastroparesis RECOMMENDATION 1. change pepcid to protonix iv bid in case n/v due to PUD, gastritis, esophagitis 2. change bowel regiman to miralax daily 3. add reglan 10 mg iv bid to see if it will help with the nausea 5. continue to hold tube feed for now (as she is still nauseous and awaiting KUB from today) but ok for meds 6. continue GT to low intermittent suctioning 7. stop GT iron as it can be constipating. will recheck iron panel and replete by IV if low 8. stop vitamin C as we replete iron if low by IV and to minimize GT load 9. continue D5 LR with 20 mEQ KCL so pt don't need GT potassium to minimize constipation and nausea (oral KCL can cause nausea) 10. Ultrasound of the liver, acute hepatitis panel hepatitis panel negative. Ultrasound of the abdomen not done. 11. Will increase the dose of Reglan #12 patient refused sonogram of the liver Consultation Date/Type/Reason Admit Date/Time Mar 19, 2017 at 01:44 Initial Consult Date 03/22/17 Type of Consultation: pulmonary 24 HR Interval Summary Free Text/Dictation No nausea no vomiting Patient is tolerating feeding Exam/Review of Systems Vital Signs Vitals Vital Signs Date Time Temp Pulse Resp B/P Pulse Ox O2 Delivery O2 Flow Rate FiO2 03/27/17 16:40 99 03/27/17 16:16 98.2 19 126/60 95 03/27/17 08:00 Nasal Cannula 3.0 Intake and Output 03/26/17 03/26/17 03/27/17 15:00 23:00 07:00 Intake Total 100 ml 1270 ml Output Total 800 ml Balance 100 ml 470 ml Exam Constitutional: alert, oriented, well developed Psych: nl mood/affect, no complaints Head: atraumatic, normocephalic Eyes: EOMI, PERRL, nl conjunctiva, nl lids, nl sclera ENMT: nl external ears & nose, nl lips & teeth, nl nasal mucosa & septum Neck: non-tender, supple Respiratory: clear to auscultation, normal air movement Cardiovascular: nl pulses, regular rate and rhythm Gastrointestinal: nl liver, spleen, non-tender, soft Musculoskeletal: nl extremities to inspection, nl gait and stance Extremities: normal pulses Neurological: ELECTRIC BATH ATTENDANT II-XII intact, nl mental status, nl speech, nl strength Skin: nl turgor, No rash or lesions Lymph: nl lymph nodes Results Result Diagram: 03/27/17 0636 03/27/17 0636 Results 24 hrs Laboratory Tests Test 03/26/17 17:17 03/26/17 20:17 03/27/17 05:23 03/27/17 06:36 Bedside Glucose 119 126 246 H White Blood Count 5.8 # Red Blood Count 3.34 L Hemoglobin 10.3 L Hematocrit 32.1 L Mean Corpuscular Volume 96.1 Mean Corpuscular Hemoglobin 30.8 Mean Corpuscular Hemoglobin Concent 32.1 Red Cell Distribution Width 14.6 H Platelet Count 541 #H Mean Platelet Volume 11.4 H Neutrophils % 53.0 Lymphocytes % 33.0 Monocytes % 6.0 Eosinophils % 8.0 H Neutrophils # 3.1 Lymphocytes # 1.9 Monocytes # 0.3 Eosinophils # 0.5 Differential Comment MANUAL DIFF Platelet Estimate PLT APPEAR INCREASED Sodium Level 135 Potassium Level 4.3 Chloride Level 92 L Carbon Dioxide Level 30 Anion Gap 17 H Blood Urea Nitrogen 22 H Creatinine 0.48 Glucose Level 261 H Calcium Level 9.2 Magnesium Level 1.6 L Total Bilirubin 0.2 Direct Bilirubin 0.00 Indirect Bilirubin 0.2 Aspartate Amino Transf (AST/SGOT) 52 H Alanine Aminotransferase (ALT/SGPT) 63 Alkaline Phosphatase 255 H Total Protein 7.0 Albumin 3.1 L Globulin 3.90 H Albumin/Globulin Ratio 0.79 Test 03/27/17 12:10 Bedside Glucose 281 H Medications Medications Current Medications Atorvastatin Calcium (Lipitor) 40 mg HS GTB Last administered on 03/26/17t 20: 26; Admin Dose 40 MG; Start 03/19/17 at 21:00 Bisacodyl (Dulcolax Supp) 10 mg DAILY PRN DE PRN; Start 03/19/17 at 05:00 Enoxaparin Sodium (Lovenox) 40 mg DAILY SC Last administered on 03/27/17 08:42 ; Admin Dose 40 MG; Start 03/19/17 at 09:00 Tramadol HCl (Ultram) 50 mg BID GTB Last administered on 03/27/17 08:23; Admin Dose 50 MG; Start 03/19/17 at 09:00 Zinc Sulfate (Zinc Sulfate) 220 mg DAILY GTB Last administered on 03/27/17 08: 23; Admin Dose 220 MG; Start 03/19/17 at 09:00 Acetaminophen (Tylenol Liquid) 650 mg Q4H PRN GTB MILD PAIN LEVEL 1-3 Last administered on 03/23/17 22:30; Admin Dose 650 MG; Start 03/19/17 at 06:00 Acetaminophen (Tylenol Liquid) 1,000 mg Q4H PRN PO PAIN LEVEL 4-6/10 Last administered on 03/22/17 03:30; Admin Dose 1,000 MG; Start 03/19/17 at 06:00 Miscellaneous Information 1 ea NOTE XX ; Start 03/19/17 at 06:00 Glucose (Glutose) 15 gm Q15M PRN PO DECREASED GLUCOSE; Start 03/19/17 at 06:00 Glucose (Glutose) 22.5 gm Q15M PRN PO DECREASED GLUCOSE; Start 03/19/17 at 06: 00 Dextrose (D50w Syringe) 25 ml Q15M PRN IV DECREASED GLUCOSE; Start 03/19/17 at 06:00 Dextrose (D50w Syringe) 50 ml Q15M PRN IV DECREASED GLUCOSE; Start 03/19/17 at 06:00 Glucagon (Glucagen) 1 mg Q15M PRN IM DECREASED GLUCOSE; Start 03/19/17 at 06:00 Glucose (Glutose) 15 gm Q15M PRN BUCCAL DECREASED GLUCOSE; Start 03/19/17 at 06 :00 Levetiracetam (Keppra Liquid) 500 mg BID GTB Last administered on 03/24/17 08: 48; Admin Dose 500 MG; Start 03/19/17 at 09:00; Status Future Hold Miscellaneous Information (Pending Santyl Order For Wound Care) This patient mahmood... PRN PRN XX WOUND CARE; Start 03/19/17 at 06:00 Sodium Biphosphate/ Sodium Phosphate (Fleet Enema) 133 ml DAILY PRN [place] CONSTIPATION; Start 03/19/17 at 06:30 Diltiazem HCl (Cardizem) 60 mg Q8 GTB Last administered on 03/27/17 14:35; Admin Dose 60 MG; Start 03/19/17 at 14:00 Metoprolol Tartrate (Lopressor) 5 mg Q6 PRN IV TACHYCARDIA Last administered on 03/23/17 18:02; Admin Dose 5 MG; Start 03/22/17 at 10:30 Morphine Sulfate (morphine) 1 mg Q4H PRN IV severe pain Last administered on 14:30; Admin Dose 1 MG; Start 03/22/17 at 12:00 Ondansetron HCl (Zofran Inj) 4 mg Q4H PRN IV NAUSEA AND/OR VOMITING Last administered on 03/25/17 01:28; Admin Dose 4 MG; Start 03/23/17 at 05:00 Polyethylene Glycol (Miralax) 17 gm DAILY GTB Last administered on 03/27/17 08 :22; Admin Dose 17 GM; Start 03/23/17 at 12:00 Multivitamins 5 ml 5 ml DAILY GTB Last administered on 03/27/17 08:24; Admin Dose 5 ML; Start 03/25/17 at 09:00 Levetiracetam/ Sodium Chloride (Keppra Iv/NS) 105 ml @ 430 mls/hr Q12 IVPB Last administered on 03/27/17 08:22; Admin Dose 430 MLS/HR; Start 03/24/17 at 21:00 Pantoprazole (Protonix Iv) 40 mg BID IV Last administered on 03/27/17 08:23; Admin Dose 40 MG; Start 03/24/17 at 21:00 Metoclopramide HCl (Reglan) 10 mg Q6 IV Last administered on 03/27/17 12:11; Admin Dose 10 MG; Start 03/27/17 at 00:00 Collagenase (Santyl) 1 applic DAILY TOP Last administered on 03/27/17 14:36; Admin Dose 1 APPLIC; Start 03/27/17 at 12:00 Collagenase (Santyl) 1 applic PRN PRN TOP WOUND CARE; Start 03/27/17 at 10:30 Insulin Glargine (Lantus) 30 unit DAILY@20 SC ; Start 03/27/17 at 20:00 Insulin Aspart (Novolog Insulin Pen) NOVOLOG *MILD* ALGORI... Q4 SC ; Start at 17:00 KAYLEE FAN MD Mar 27, 2017 17:04
--- NOTE | 2017-03-27 18:16 | PN ---
Date/Time of Note Date/Time of Note DATE: 03/27/17 TIME: 18:14 Assessment/Plan VTE Prophylaxis VTE Prophylaxis Intervention: SCD's Lines/Catheters IV [facility] Peripheral IV Urinary Cath still in place: Yes Reason Cath still needed: urinary retention Assessment/Plan Chief Complaint/Hosp Course ASSESSMENT AND PLAN: - Sepsis with leukocytosis tachycardia, resolving. - Possible HCAP vs aspiration, continue abx per ID. Dr. Pitt is following in infection disease consultation. is following in pulmonology consultation. Continue bronchodilators and oxygen supplementation. - Sinus tachycardia, Dr. Candelario is following and cardiology consultation, continue telemetry monitoring. - Left hand swelling. Continue broad-spectrum antibiotics for possible cellulitis. - Seizure disorder. Continue Keppra. - Dysphagia with percutaneous endoscopic gastrostomy. Continue G-tube feeding, aspiration precautions. - Diabetes mellitus type 2. Continue NPH. - Dyslipidemia. Continue statins. - Hypertension. The patient is currently normotensive. - Schizophrenia and bipolar disorder. Continue Lovenox for deep venous thrombosis prophylaxis. Further recommendations based on clinical course. Plan of care was discussed with Dr. Aly. Problems: Subjective 24 Hr Interval Summary Free Text/Dictation No complaints, patient tolerates G-tube feeding well. Occasional tachycardia. Exam/Review of Systems Vital Signs Vitals Vital Signs Date Time Temp Pulse Resp B/P Pulse Ox O2 Delivery O2 Flow Rate FiO2 03/27/17 16:40 99 03/27/17 16:16 98.2 19 126/60 95 03/27/17 08:00 Nasal Cannula 3.0 Intake and Output 03/26/17 03/26/17 03/27/17 15:00 23:00 07:00 Intake Total 100 ml 1270 ml Output Total 800 ml Balance 100 ml 470 ml Exam GENERAL: Well-developed, well-nourished female, currently awake alert. HEENT: Head is atraumatic, normocephalic. Pupils equal, round, reactive to light and accommodation. Oral mucosa is pink and moist. NECK: Supple, no cervical lymphadenopathy, no thyromegaly. CHEST: Lungs clear bilaterally, slightly diminished at the bases. CARDIOVASCULAR: Normal S1, S2. No murmurs, gallops, clicks, rubs noted. The patient is tachycardic. ABDOMEN: Round, soft, nondistended, nontender. G-tube with intact stoma. SKIN: There is no rash, petechiae. NEUROLOGIC: The patient is awake, alert, near baseline. Results Result Diagram: 03/27/17 0636 03/27/17 0636 Results 24 hrs Laboratory Tests Test 03/26/17 20:17 03/27/17 05:23 03/27/17 06:36 03/27/17 12:10 Bedside Glucose 126 246 H 281 H White Blood Count 5.8 # Red Blood Count 3.34 L Hemoglobin 10.3 L Hematocrit 32.1 L Mean Corpuscular Volume 96.1 Mean Corpuscular Hemoglobin 30.8 Mean Corpuscular Hemoglobin Concent 32.1 Red Cell Distribution Width 14.6 H Platelet Count 541 #H Mean Platelet Volume 11.4 H Neutrophils % 53.0 Lymphocytes % 33.0 Monocytes % 6.0 Eosinophils % 8.0 H Neutrophils # 3.1 Lymphocytes # 1.9 Monocytes # 0.3 Eosinophils # 0.5 Differential Comment MANUAL DIFF Platelet Estimate PLT APPEAR INCREASED Sodium Level 135 Potassium Level 4.3 Chloride Level 92 L Carbon Dioxide Level 30 Anion Gap 17 H Blood Urea Nitrogen 22 H Creatinine 0.48 Glucose Level 261 H Calcium Level 9.2 Magnesium Level 1.6 L Total Bilirubin 0.2 Direct Bilirubin 0.00 Indirect Bilirubin 0.2 Aspartate Amino Transf (AST/SGOT) 52 H Alanine Aminotransferase (ALT/SGPT) 63 Alkaline Phosphatase 255 H Total Protein 7.0 Albumin 3.1 L Globulin 3.90 H Albumin/Globulin Ratio 0.79 Test 03/27/17 17:28 Bedside Glucose 111 Medications Medications Current Medications Atorvastatin Calcium (Lipitor) 40 mg HS GTB Last administered on 03/26/17 20: 26; Admin Dose 40 MG; Start 03/19/17 at 21:00 Bisacodyl (Dulcolax Supp) 10 mg DAILY PRN NE PRN; Start 03/19/17 at 05:00 Enoxaparin Sodium (Lovenox) 40 mg DAILY SC Last administered on 03/27/17 08:42 ; Admin Dose 40 MG; Start 03/19/17 at 09:00 Tramadol HCl (Ultram) 50 mg BID GTB Last administered on 03/27/17 08:23; Admin Dose 50 MG; Start 03/19/17 at 09:00 Zinc Sulfate (Zinc Sulfate) 220 mg DAILY GTB Last administered on 03/27/17 08: 23; Admin Dose 220 MG; Start 03/19/17 at 09:00 Acetaminophen (Tylenol Liquid) 650 mg Q4H PRN GTB MILD PAIN LEVEL 1-3 Last administered on 03/23/17 22:30; Admin Dose 650 MG; Start 03/19/17 at 06:00 Acetaminophen (Tylenol Liquid) 1,000 mg Q4H PRN PO PAIN LEVEL 4-6/10 Last administered on 03/22/17 03:30; Admin Dose 1,000 MG; Start 03/19/17 at 06:00 Miscellaneous Information 1 ea NOTE XX ; Start 03/19/17 at 06:00 Glucose (Glutose) 15 gm Q15M PRN PO DECREASED GLUCOSE; Start 03/19/17 at 06:00 Glucose (Glutose) 22.5 gm Q15M PRN PO DECREASED GLUCOSE; Start 03/19/17 at 06: 00 Dextrose (D50w Syringe) 25 ml Q15M PRN IV DECREASED GLUCOSE; Start 03/19/17 at 06:00 Dextrose (D50w Syringe) 50 ml Q15M PRN IV DECREASED GLUCOSE; Start 03/19/17 at 06:00 Glucagon (Glucagen) 1 mg Q15M PRN IM DECREASED GLUCOSE; Start 03/19/17 at 06:00 Glucose (Glutose) 15 gm Q15M PRN BUCCAL DECREASED GLUCOSE; Start 03/19/17 at 06 :00 Levetiracetam (Keppra Liquid) 500 mg BID GTB Last administered on 03/24/17 08: 48; Admin Dose 500 MG; Start 03/19/17 at 09:00; Status Future Hold Miscellaneous Information (Pending Santyl Order For Wound Care) This patient mahmood... PRN PRN XX WOUND CARE; Start 03/19/17 at 06:00 Sodium Biphosphate/ Sodium Phosphate (Fleet Enema) 133 ml DAILY PRN [place] CONSTIPATION; Start 03/19/17 at 06:30 Diltiazem HCl (Cardizem) 60 mg Q8 GTB Last administered on 03/27/17 14:35; Admin Dose 60 MG; Start 03/19/17 at 14:00 Metoprolol Tartrate (Lopressor) 5 mg Q6 PRN IV TACHYCARDIA Last administered on 03/23/17 18:02; Admin Dose 5 MG; Start 03/22/17 at 10:30 Morphine Sulfate (morphine) 1 mg Q4H PRN IV severe pain Last administered on 14:30; Admin Dose 1 MG; Start 03/22/17 at 12:00 Ondansetron HCl (Zofran Inj) 4 mg Q4H PRN IV NAUSEA AND/OR VOMITING Last administered on 03/25/17 01:28; Admin Dose 4 MG; Start 03/23/17 at 05:00 Polyethylene Glycol (Miralax) 17 gm DAILY GTB Last administered on 03/27/17 08 :22; Admin Dose 17 GM; Start 03/23/17 at 12:00 Multivitamins 5 ml 5 ml DAILY GTB Last administered on 03/27/17 08:24; Admin Dose 5 ML; Start 03/25/17 at 09:00 Levetiracetam/ Sodium Chloride (Keppra Iv/NS) 105 ml @ 430 mls/hr Q12 IVPB Last administered on 03/27/17 08:22; Admin Dose 430 MLS/HR; Start 03/24/17 at 21:00 Pantoprazole (Protonix Iv) 40 mg BID IV Last administered on 03/27/17 08:23; Admin Dose 40 MG; Start 03/24/17 at 21:00 Metoclopramide HCl (Reglan) 10 mg Q6 IV Last administered on 03/27/17 17:31; Admin Dose 10 MG; Start 03/27/17 at 00:00 Collagenase (Santyl) 1 applic DAILY TOP Last administered on 03/27/17 14:36; Admin Dose 1 APPLIC; Start 03/27/17 at 12:00 Collagenase (Santyl) 1 applic PRN PRN TOP WOUND CARE; Start 03/27/17 at 10:30 Insulin Glargine (Lantus) 30 unit DAILY@20 SC ; Start 03/27/17 at 20:00 Insulin Aspart (Novolog Insulin Pen) NOVOLOG *MILD* ALGORI... Q4 SC ; Start at 17:00 DENA SALGUERO Mar 27, 2017 18:16
--- NOTE | 2017-03-27 18:31 | CONS ---
Date/Time of Note Date/Time of Note DATE: 03/27/17 TIME: 18:30 Assessment/Plan Assessment/Plan Additional Assessment/Plan Sepsis Sinus tachycardia History of paroxysmal atrial tachycardia Preserved ejection fraction Psychiatric disorder Seizure disorder Volume overload -Lung examination improving as well as less peripheral edema, switch diuretics to p.o. as long as blood pressure and renal function permits. Maintain potassium above 4.0 and magnesium above 2.0. Consultation Date/Type/Reason Admit Date/Time Mar 19, 2017 at 01:44 Initial Consult Date 03/22/17 Type of Consultation: cv 24 HR Interval Summary Free Text/Dictation Shortness of breath is improved, denies chest pain or palpitations Exam/Review of Systems Vital Signs Vitals Vital Signs Date Time Temp Pulse Resp B/P Pulse Ox O2 Delivery O2 Flow Rate FiO2 03/27/17 16:40 99 03/27/17 16:16 98.2 19 126/60 95 03/27/17 08:00 Nasal Cannula 3.0 Intake and Output 03/26/17 03/26/17 03/27/17 15:00 23:00 07:00 Intake Total 100 ml 1270 ml Output Total 800 ml Balance 100 ml 470 ml Exam No apparent distress Constitutional: alert, oriented Head: normocephalic Neck: supple Respiratory: other (Coarse breath sounds bilaterally, no wheezing) Cardiovascular: other (S1-S2 heard), regular rate and rhythm Gastrointestinal: bowel sounds, non-tender, soft Extremities: edema Results Result Diagram: 03/27/17 0636 03/27/17 0636 Results 24 hrs Laboratory Tests Test 03/26/17 20:17 03/27/17 05:23 03/27/17 06:36 03/27/17 12:10 Bedside Glucose 126 246 H 281 H White Blood Count 5.8 # Red Blood Count 3.34 L Hemoglobin 10.3 L Hematocrit 32.1 L Mean Corpuscular Volume 96.1 Mean Corpuscular Hemoglobin 30.8 Mean Corpuscular Hemoglobin Concent 32.1 Red Cell Distribution Width 14.6 H Platelet Count 541 #H Mean Platelet Volume 11.4 H Neutrophils % 53.0 Lymphocytes % 33.0 Monocytes % 6.0 Eosinophils % 8.0 H Neutrophils # 3.1 Lymphocytes # 1.9 Monocytes # 0.3 Eosinophils # 0.5 Differential Comment MANUAL DIFF Platelet Estimate PLT APPEAR INCREASED Sodium Level 135 Potassium Level 4.3 Chloride Level 92 L Carbon Dioxide Level 30 Anion Gap 17 H Blood Urea Nitrogen 22 H Creatinine 0.48 Glucose Level 261 H Calcium Level 9.2 Magnesium Level 1.6 L Total Bilirubin 0.2 Direct Bilirubin 0.00 Indirect Bilirubin 0.2 Aspartate Amino Transf (AST/SGOT) 52 H Alanine Aminotransferase (ALT/SGPT) 63 Alkaline Phosphatase 255 H Total Protein 7.0 Albumin 3.1 L Globulin 3.90 H Albumin/Globulin Ratio 0.79 Test 03/27/17 17:28 Bedside Glucose 111 Medications Medications Current Medications Atorvastatin Calcium (Lipitor) 40 mg HS GTB Last administered on 03/26/17 20: 26; Admin Dose 40 MG; Start 03/19/17 at 21:00 Bisacodyl (Dulcolax Supp) 10 mg DAILY PRN [place] PRN; Start 03/19/17 at 05:00 Enoxaparin Sodium (Lovenox) 40 mg DAILY SC Last administered on 03/27/17 08:42 ; Admin Dose 40 MG; Start 03/19/17 at 09:00 Tramadol HCl (Ultram) 50 mg BID GTB Last administered on 03/27/17 08:23; Admin Dose 50 MG; Start 03/19/17 at 09:00 Zinc Sulfate (Zinc Sulfate) 220 mg DAILY GTB Last administered on 03/27/17 08: 23; Admin Dose 220 MG; Start 03/19/17 at 09:00 Acetaminophen (Tylenol Liquid) 650 mg Q4H PRN GTB MILD PAIN LEVEL 1-3 Last administered on 03/23/17 22:30; Admin Dose 650 MG; Start 03/19/17 at 06:00 Acetaminophen (Tylenol Liquid) 1,000 mg Q4H PRN PO PAIN LEVEL 4-6/10 Last administered on 03/22/17 03:30; Admin Dose 1,000 MG; Start 03/19/17 at 06:00 Miscellaneous Information 1 ea NOTE XX ; Start 03/19/17 at 06:00 Glucose (Glutose) 15 gm Q15M PRN PO DECREASED GLUCOSE; Start 03/19/17 at 06:00 Glucose (Glutose) 22.5 gm Q15M PRN PO DECREASED GLUCOSE; Start 03/19/17 at 06: 00 Dextrose (D50w Syringe) 25 ml Q15M PRN IV DECREASED GLUCOSE; Start 03/19/17 at 06:00 Dextrose (D50w Syringe) 50 ml Q15M PRN IV DECREASED GLUCOSE; Start 03/19/17 at 06:00 Glucagon (Glucagen) 1 mg Q15M PRN IM DECREASED GLUCOSE; Start 03/19/17 at 06:00 Glucose (Glutose) 15 gm Q15M PRN BUCCAL DECREASED GLUCOSE; Start 03/19/17 at 06 :00 Levetiracetam (Keppra Liquid) 500 mg BID GTB Last administered on 03/24/17 08: 48; Admin Dose 500 MG; Start 03/19/17 at 09:00; Status Future Hold Miscellaneous Information (Pending Santyl Order For Wound Care) This patient mahmood... PRN PRN XX WOUND CARE; Start 03/19/17 at 06:00 Sodium Biphosphate/ Sodium Phosphate (Fleet Enema) 133 ml DAILY PRN [place] CONSTIPATION; Start 03/19/17 at 06:30 Diltiazem HCl (Cardizem) 60 mg Q8 GTB Last administered on 03/27/17 14:35; Admin Dose 60 MG; Start 03/19/17 at 14:00 Metoprolol Tartrate (Lopressor) 5 mg Q6 PRN IV TACHYCARDIA Last administered on 03/23/17 18:02; Admin Dose 5 MG; Start 03/22/17 at 10:30 Morphine Sulfate (morphine) 1 mg Q4H PRN IV severe pain Last administered on 14:30; Admin Dose 1 MG; Start 03/22/17 at 12:00 Ondansetron HCl (Zofran Inj) 4 mg Q4H PRN IV NAUSEA AND/OR VOMITING Last administered on 03/25/17 01:28; Admin Dose 4 MG; Start 03/23/17 at 05:00 Polyethylene Glycol (Miralax) 17 gm DAILY GTB Last administered on 03/27/17 08 :22; Admin Dose 17 GM; Start 03/23/17 at 12:00 Multivitamins 5 ml 5 ml DAILY GTB Last administered on 03/27/17 08:24; Admin Dose 5 ML; Start 03/25/17 at 09:00 Levetiracetam/ Sodium Chloride (Keppra Iv/NS) 105 ml @ 430 mls/hr Q12 IVPB Last administered on 03/27/17 08:22; Admin Dose 430 MLS/HR; Start 03/24/17 at 21:00 Pantoprazole (Protonix Iv) 40 mg BID IV Last administered on 03/27/17 08:23; Admin Dose 40 MG; Start 03/24/17 at 21:00 Metoclopramide HCl (Reglan) 10 mg Q6 IV Last administered on 03/27/17 17:31; Admin Dose 10 MG; Start 03/27/17 at 00:00 Collagenase (Santyl) 1 applic DAILY TOP Last administered on 03/27/17 14:36; Admin Dose 1 APPLIC; Start 03/27/17 at 12:00 Collagenase (Santyl) 1 applic PRN PRN TOP WOUND CARE; Start 03/27/17 at 10:30 Insulin Glargine (Lantus) 30 unit DAILY@20 SC ; Start 03/27/17 at 20:00 Insulin Aspart (Novolog Insulin Pen) NOVOLOG *MILD* ALGORI... Q4 SC ; Start at 17:00 Gamal Coronel DO Mar 27, 2017 18:31
[2017-03-27] MEDS ORDERED: MAGNESIUM SULFATE 2 GM/50 ML 50 ML IVPB ONE (19:00)
[2017-03-27] MEDS: ATORVASTATIN 40 MG TAB GTB SCH (21:25)
[2017-03-27] MEDS: INSULIN GLARGINE [LANtus] 3 ML PEN SC SCH (21:36)
[2017-03-27] MEDS: MAGNESIUM CHLORIDE (SR) 64 MG TAB PO SCH (23:02)
[2017-03-27] MEDS: PANTOPRAZOLE (EC) 40 MG TAB PO SCH (23:02)
[2017-03-27] MEDS: LEVETIRACETAM (100 MG/ML) 5ML CUP GTB SCH (23:07)
[2017-03-28] MEDS: INSULIN ASPART [NOVOLOG] 3 ML PEN SC SCH ×6 (01:00→21:08)
[2017-03-28] MEDS: PANTOPRAZOLE (EC) 40 MG TAB PO SCH ×2 (05:47→17:05)
[2017-03-28] MEDS: DILTIAZEM 60 MG TAB GTB SCH ×3 (05:48→21:04)
[2017-03-28] MEDS: FUROSEMIDE 20 MG TAB PO SCH ×2 (05:52→17:10)
[2017-03-28] MEDS: METOCLOPRAMIDE 10 MG INJ IV SCH ×5 (05:53→23:52)
[2017-03-28 07:52] LABS: ADD SCAN DIFF NO
[2017-03-28 08:11] LABS: ABNORMAL IP MESSAGE 1; HEMATOCRIT 30.9 % (37.0-47.0); MEAN CORPUSCULAR HEMOGLOBIN 31.2 pg (29.0-33.0); MEAN CORPUSCULAR HGB CONC 32.4 g/dl (32.0-37.0); MEAN CORPUSCULAR VOLUME 96.3 fl (82.0-101.0); MEAN PLATELET VOLUME 10.5 fl (7.4-10.4); PLATELET COUNT 732 10^3/UL (140-415); RED BLOOD COUNT 3.21 10^6/ul (4.20-5.40); RED CELL DISTRIBUTION WIDTH 14.6 % (11.5-14.5); WHITE BLOOD COUNT 6.6 10^3/ul (4.8-10.8)
[2017-03-28 08:18] LABS: POTASSIUM 3.8 mmol/L (3.5-5.1)
[2017-03-28 08:21] LABS: CREATININE 0.47 mg/dl (0.44-1.00)
[2017-03-28 08:22] VITALS: BP 132/62; RESP 18
[2017-03-28 08:22] LABS: CALCIUM 9.4 mg/dl (8.4-10.2)
[2017-03-28] MEDS: ENOXAPARIN 40 MG/0.4 ML SYG SC SCH (09:00)
[2017-03-28] MEDS: MAGNESIUM CHLORIDE (SR) 64 MG TAB PO SCH ×2 (09:00→21:05)
[2017-03-28] MEDS: LEVETIRACETAM (100 MG/ML) 5ML CUP GTB SCH ×2 (09:00→21:04)
[2017-03-28] MEDS: ZINC SULFATE 220 MG CAP GTB SCH (09:00)
[2017-03-28] MEDS: traMADol 50 MG TAB GTB SCH ×2 (09:00→21:05)
[2017-03-28] MEDS: COLLAGENASE 30 GM TUBE TOP SCH (09:00)
[2017-03-28] MEDS: POLYETHYLENE GLYCOL 17 GM PACKET GTB SCH (09:00)
[2017-03-28] MEDS: MULTIVITAMINS 5 ML CUP GTB SCH (09:00)
[2017-03-28 09:51] LABS: PLATELET ESTIMATE PLT APPEAR INCREASED
--- NOTE | 2017-03-28 11:16 | CONS ---
Date/Time of Note Date/Time of Note DATE: 03/28/17 TIME: 11:15 Assessment/Plan Assessment/Plan Additional Assessment/Plan Additional Assessment/Plan IMPRESSION: 1. nausea with vomiting: KUB negative resolved 2. Possible sepsis with leukocytosis tachycardia. 3. Possible HCAP 4. Sinus tachycardia, most likely secondary to dehydration. 5. Left arm/hand swelling. 6. Seizure disorder. 7. Dysphagia with percutaneous endoscopic gastrostomy. 8. Iron deficiency anemia 9 abnormal liver function test 10. Diabetic gastroparesis RECOMMENDATION 1. change pepcid to protonix iv bid in case n/v due to PUD, gastritis, esophagitis 2. change bowel regiman to miralax daily 3. add reglan 10 mg iv bid to see if it will help with the nausea 5. continue to hold tube feed for now (as she is still nauseous and awaiting KUB from today) but ok for meds 6. continue GT to low intermittent suctioning 7. stop GT iron as it can be constipating. will recheck iron panel and replete by IV if low 8. stop vitamin C as we replete iron if low by IV and to minimize GT load 9. continue D5 LR with 20 mEQ KCL so pt don't need GT potassium to minimize constipation and nausea (oral KCL can cause nausea) 10. Ultrasound of the liver, acute hepatitis panel hepatitis panel negative. Ultrasound of the abdomen not done. 11. Will increase the dose of Reglan #12 patient refused sonogram of the liver Consultation Date/Type/Reason Admit Date/Time Mar 19, 2017 at 01:44 Initial Consult Date 03/22/17 Type of Consultation: cv 24 HR Interval Summary Free Text/Dictation No abdominal pain no nausea no vomiting Constitutional: no complaints Exam/Review of Systems Vital Signs Vitals Vital Signs Date Time Temp Pulse Resp B/P Pulse Ox O2 Delivery O2 Flow Rate FiO2 03/28/17 08:22 98.0 92 18 132/62 98 03/28/17 08:10 Nasal Cannula 3.0 Intake and Output 03/27/17 03/27/17 03/28/17 15:00 23:00 07:00 Intake Total 750 ml 105 ml 750 ml Output Total 1100 ml 1200 ml Balance -350 ml 105 ml -450 ml Exam Constitutional: alert, oriented, well developed Psych: nl mood/affect, no complaints Head: atraumatic, normocephalic Eyes: EOMI, PERRL, nl conjunctiva, nl lids, nl sclera ENMT: nl external ears & nose, nl lips & teeth, nl nasal mucosa & septum Neck: non-tender, supple Respiratory: clear to auscultation, normal air movement Cardiovascular: nl pulses, regular rate and rhythm Gastrointestinal: nl liver, spleen, non-tender, soft Musculoskeletal: nl extremities to inspection, nl gait and stance Extremities: normal pulses Neurological: ANIMAL CONTROL SPECIALIST II-XII intact, nl mental status, nl speech, nl strength Skin: nl turgor, No rash or lesions Lymph: nl lymph nodes Results Result Diagram: 03/28/17 0652 03/28/17 0652 Results 24 hrs Laboratory Tests Test 03/27/17 12:10 03/27/17 17:28 03/27/17 21:32 03/28/17 04:26 Bedside Glucose 281 H 111 184 135 Test 03/28/17 06:52 White Blood Count 6.6 Red Blood Count 3.21 L Hemoglobin 10.0 L Hematocrit 30.9 L Mean Corpuscular Volume 96.3 Mean Corpuscular Hemoglobin 31.2 Mean Corpuscular Hemoglobin Concent 32.4 Red Cell Distribution Width 14.6 H Platelet Count 732 #H Mean Platelet Volume 10.5 H Differential Comment AUTO w/SCAN Platelet Estimate PLT APPEAR INCREASED Sodium Level 137 Potassium Level 3.8 Chloride Level 94 L Carbon Dioxide Level 31 Anion Gap 16 Blood Urea Nitrogen 21 H Creatinine 0.47 Glucose Level 99 # Calcium Level 9.4 Magnesium Level 1.7 Medications Medications Current Medications Atorvastatin Calcium (Lipitor) 40 mg HS GTB Last administered on 03/27/17 21: 25; Admin Dose 40 MG; Start 03/19/17 at 21:00 Bisacodyl (Dulcolax Supp) 10 mg DAILY PRN [place] PRN; Start 03/19/17 at 05:00 Enoxaparin Sodium (Lovenox) 40 mg DAILY SC Last administered on 03/27/17 08:42 ; Admin Dose 40 MG; Start 03/19/17 at 09:00 Tramadol HCl (Ultram) 50 mg BID GTB Last administered on 03/27/17 21:25; Admin Dose 50 MG; Start 03/19/17 at 09:00 Zinc Sulfate (Zinc Sulfate) 220 mg DAILY GTB Last administered on 03/27/17 08: 23; Admin Dose 220 MG; Start 03/19/17 at 09:00 Acetaminophen (Tylenol Liquid) 650 mg Q4H PRN GTB MILD PAIN LEVEL 1-3 Last administered on 03/23/17 22:30; Admin Dose 650 MG; Start 03/19/17 at 06:00 Acetaminophen (Tylenol Liquid) 1,000 mg Q4H PRN PO PAIN LEVEL 4-6/10 Last administered on 03/22/17 03:30; Admin Dose 1,000 MG; Start 03/19/17 at 06:00 Miscellaneous Information 1 ea NOTE XX ; Start 03/19/17 at 06:00 Glucose (Glutose) 15 gm Q15M PRN PO DECREASED GLUCOSE; Start 03/19/17 at 06:00 Glucose (Glutose) 22.5 gm Q15M PRN PO DECREASED GLUCOSE; Start 03/19/17 at 06: 00 Dextrose (D50w Syringe) 25 ml Q15M PRN IV DECREASED GLUCOSE; Start 03/19/17 at 06:00 Dextrose (D50w Syringe) 50 ml Q15M PRN IV DECREASED GLUCOSE; Start 03/19/17 at 06:00 Glucagon (Glucagen) 1 mg Q15M PRN IM DECREASED GLUCOSE; Start 03/19/17 at 06:00 Glucose (Glutose) 15 gm Q15M PRN BUCCAL DECREASED GLUCOSE; Start 03/19/17 at 06 :00 Miscellaneous Information (Pending [facility] Order For Wound Care) This patient mahmood... PRN PRN XX WOUND CARE; Start 03/19/17 at 06:00 Sodium Biphosphate/ Sodium Phosphate (Fleet Enema) 133 ml DAILY PRN [place] CONSTIPATION; Start 03/19/17 at 06:30 Diltiazem HCl (Cardizem) 60 mg Q8 GTB Last administered on 03/28/17 05:48; Admin Dose 60 MG; Start 03/19/17 at 14:00 Metoprolol Tartrate (Lopressor) 5 mg Q6 PRN IV TACHYCARDIA Last administered on 03/23/17 18:02; Admin Dose 5 MG; Start 03/22/17 at 10:30 Morphine Sulfate (morphine) 1 mg Q4H PRN IV severe pain Last administered on 14:30; Admin Dose 1 MG; Start 03/22/17 at 12:00 Ondansetron HCl (Zofran Inj) 4 mg Q4H PRN IV NAUSEA AND/OR VOMITING Last administered on 03/25/17 01:28; Admin Dose 4 MG; Start 03/23/17 at 05:00 Polyethylene Glycol (Miralax) 17 gm DAILY GTB Last administered on 03/27/17 08 :22; Admin Dose 17 GM; Start 03/23/17 at 12:00 Multivitamins (Thera-Plus) 5 ml DAILY GTB Last administered on 03/27/17 08:24 ; Admin Dose 5 ML; Start 03/25/17 at 09:00 Metoclopramide HCl (Reglan) 10 mg Q6 IV Last administered on 03/27/17 17:31; Admin Dose 10 MG; Start 03/27/17 at 00:00 Collagenase (Santyl) 1 applic DAILY TOP Last administered on 03/27/17 14:36; Admin Dose 1 APPLIC; Start 03/27/17 at 12:00 Collagenase (Santyl) 1 applic PRN PRN TOP WOUND CARE; Start 03/27/17 at 10:30 Insulin Glargine (Lantus) 30 unit DAILY@20 SC Last administered on 03/27/17 21 :36; Admin Dose 30 UNIT; Start 03/27/17 at 20:00 Insulin Aspart (Novolog Insulin Pen) NOVOLOG *MILD* ALGORI... Q4 SC Last administered on 03/27/17 21:35; Admin Dose 1 UNIT; Start 03/27/17 at 17:00 Levetiracetam (Keppra Liquid) 500 mg BID GTB Last administered on 03/27/17 23: 07; Admin Dose 500 MG; Start 03/27/17 at 21:00 Pantoprazole (Protonix Tab) 40 mg BID@06,18 PO Last administered on 03/28/17 05:47; Admin Dose 40 MG; Start 03/27/17 at 21:30 Magnesium Chloride (Mag 64) 64 mg BID PO Last administered on 03/27/17 23:02; Admin Dose 64 MG; Start 03/27/17 at 21:30 KAYLEE FAN MD Mar 28, 2017 11:16
[2017-03-28 12:19] VITALS: BP 124/62; RESP 18
--- NOTE | 2017-03-28 12:49 | CONS ---
Date/Time of Note Date/Time of Note DATE: 03/28/17 TIME: 12:49 Consult Date/Type/Reason Admit Date/Time Mar 19, 2017 at 01:44 Initial Consult Date 03/22/17 Type of Consultation: pulmonary Subjective Patient appears comfortable no acute distress Objective Vital Signs Date Time Temp Pulse Resp B/P Pulse Ox O2 Delivery O2 Flow Rate FiO2 03/28/17 12:19 97.8 105 18 124/62 95 03/28/17 08:10 Nasal Cannula 3.0 Intake and Output 03/27/17 03/27/17 03/28/17 15:00 23:00 07:00 Intake Total 750 ml 105 ml 750 ml Output Total 1100 ml 1200 ml Balance -350 ml 105 ml -450 ml Exam PHYSICAL EXAMINATION: GENERAL: Elderly, chronically ill-appearing lady, appears comfortable at rest, no acute distress. VITAL SIGNS: As above NECK: Supple. No JVD or lymphadenopathy. CARDIAC: S1, S2, no added sounds or murmurs. CHEST: Diminished air entry bilaterally. ABDOMEN: Soft, nontender. No guarding or rebound. EXTREMITIES: No cyanosis, clubbing, edema. NEUROLOGIC: Generalized weakness. Results/Medications Result Diagram: 03/28/17 0652 03/28/17 0652 Results 24 hrs Laboratory Tests Test 03/27/17 17:28 03/27/17 21:32 03/28/17 04:26 03/28/17 06:52 Bedside Glucose 111 184 135 White Blood Count 6.6 Red Blood Count 3.21 L Hemoglobin 10.0 L Hematocrit 30.9 L Mean Corpuscular Volume 96.3 Mean Corpuscular Hemoglobin 31.2 Mean Corpuscular Hemoglobin Concent 32.4 Red Cell Distribution Width 14.6 H Platelet Count 732 #H Mean Platelet Volume 10.5 H Differential Comment AUTO w/SCAN Platelet Estimate PLT APPEAR INCREASED Sodium Level 137 Potassium Level 3.8 Chloride Level 94 L Carbon Dioxide Level 31 Anion Gap 16 Blood Urea Nitrogen 21 H Creatinine 0.47 Glucose Level 99 # Calcium Level 9.4 Magnesium Level 1.7 Test 03/28/17 12:26 Bedside Glucose 176 Medications Current Medications Atorvastatin Calcium (Lipitor) 40 mg HS GTB Last administered on 03/27/17t 21: 25; Admin Dose 40 MG; Start 03/19/17 at 21:00 Bisacodyl (Dulcolax Supp) 10 mg DAILY PRN [place] PRN; Start 03/19/17 at 05:00 Enoxaparin Sodium (Lovenox) 40 mg DAILY SC Last administered on 03/27/17 08:42 ; Admin Dose 40 MG; Start 03/19/17 at 09:00 Tramadol HCl (Ultram) 50 mg BID GTB Last administered on 03/27/17 21:25; Admin Dose 50 MG; Start 03/19/17 at 09:00 Zinc Sulfate (Zinc Sulfate) 220 mg DAILY GTB Last administered on 03/27/17 08: 23; Admin Dose 220 MG; Start 03/19/17 at 09:00 Acetaminophen (Tylenol Liquid) 650 mg Q4H PRN GTB MILD PAIN LEVEL 1-3 Last administered on 03/23/17 22:30; Admin Dose 650 MG; Start 03/19/17 at 06:00 Acetaminophen (Tylenol Liquid) 1,000 mg Q4H PRN PO PAIN LEVEL 4-6/10 Last administered on 03/22/17 03:30; Admin Dose 1,000 MG; Start 03/19/17 at 06:00 Miscellaneous Information 1 ea NOTE XX ; Start 03/19/17 at 06:00 Glucose (Glutose) 15 gm Q15M PRN PO DECREASED GLUCOSE; Start 03/19/17 at 06:00 Glucose (Glutose) 22.5 gm Q15M PRN PO DECREASED GLUCOSE; Start 03/19/17 at 06: 00 Dextrose (D50w Syringe) 25 ml Q15M PRN IV DECREASED GLUCOSE; Start 03/19/17 at 06:00 Dextrose (D50w Syringe) 50 ml Q15M PRN IV DECREASED GLUCOSE; Start 03/19/17 at 06:00 Glucagon (Glucagen) 1 mg Q15M PRN IM DECREASED GLUCOSE; Start 03/19/17 at 06:00 Glucose (Glutose) 15 gm Q15M PRN BUCCAL DECREASED GLUCOSE; Start 03/19/17 at 06 :00 Miscellaneous Information (Pending [facility] Order For Wound Care) This patient mahmood... PRN PRN XX WOUND CARE; Start 03/19/17 at 06:00 Sodium Biphosphate/ Sodium Phosphate (Fleet Enema) 133 ml DAILY PRN [place] CONSTIPATION; Start 03/19/17 at 06:30 Diltiazem HCl (Cardizem) 60 mg Q8 GTB Last administered on 03/28/17 05:48; Admin Dose 60 MG; Start 03/19/17 at 14:00 Metoprolol Tartrate (Lopressor) 5 mg Q6 PRN IV TACHYCARDIA Last administered on 03/23/17 18:02; Admin Dose 5 MG; Start 03/22/17 at 10:30 Morphine Sulfate (morphine) 1 mg Q4H PRN IV severe pain Last administered on 14:30; Admin Dose 1 MG; Start 03/22/17 at 12:00 Ondansetron HCl (Zofran Inj) 4 mg Q4H PRN IV NAUSEA AND/OR VOMITING Last administered on 03/25/17 01:28; Admin Dose 4 MG; Start 03/23/17 at 05:00 Polyethylene Glycol (Miralax) 17 gm DAILY GTB Last administered on 03/27/17 08 :22; Admin Dose 17 GM; Start 03/23/17 at 12:00 Multivitamins (Thera-Plus) 5 ml DAILY GTB Last administered on 03/27/17 08:24 ; Admin Dose 5 ML; Start 03/25/17 at 09:00 Metoclopramide HCl (Reglan) 10 mg Q6 IV Last administered on 03/27/17 17:31; Admin Dose 10 MG; Start 03/27/17 at 00:00 Collagenase (Santyl) 1 applic DAILY TOP Last administered on 03/27/17 14:36; Admin Dose 1 APPLIC; Start 03/27/17 at 12:00 Collagenase (Santyl) 1 applic PRN PRN TOP WOUND CARE; Start 03/27/17 at 10:30 Insulin Glargine (Lantus) 30 unit DAILY@20 SC Last administered on 03/27/17 21 :36; Admin Dose 30 UNIT; Start 03/27/17 at 20:00 Insulin Aspart (Novolog Insulin Pen) NOVOLOG *MILD* ALGORI... Q4 SC Last administered on 03/27/17 21:35; Admin Dose 1 UNIT; Start 03/27/17 at 17:00 Levetiracetam (Keppra Liquid) 500 mg BID GTB Last administered on 03/27/17 23: 07; Admin Dose 500 MG; Start 03/27/17 at 21:00 Pantoprazole (Protonix Tab) 40 mg BID@06,18 PO Last administered on 03/28/17 05:47; Admin Dose 40 MG; Start 03/27/17 at 21:30 Magnesium Chloride (Mag 64) 64 mg BID PO Last administered on 03/27/17 23:02; Admin Dose 64 MG; Start 03/27/17 at 21:30 Assessment/Plan Chief Complaint/Hosp Course Assessment 1. Hypoxemic respiratory failure 2. Congestive cardiac failure 3. Possible aspiration component 4. Lower extremity weakness Plan 1. Aspiration precautions 2. Gentle diuresis 3. DVT GI prophylaxis 4. Consider [facility] transfer Consider discharge planning Problems: GINO SUTHERLAND MD, [facility] Mar 28, 2017 12:49
[2017-03-28] MEDS ORDERED: POTASSIUM CHLORIDE (SR) 20 MEQ TAB PO STA (15:38)
--- NOTE | 2017-03-28 15:41 | CONS ---
Date/Time of Note Date/Time of Note DATE: 03/28/17 TIME: 15:39 Assessment/Plan Assessment/Plan Additional Assessment/Plan Sepsis Acute decompensated diastolic congestive heart failure Sinus tachycardia History of paroxysmal atrial tachycardia Preserved ejection fraction Psychiatric disorder Seizure disorder Volume overload -Lung examination improving as well as less peripheral edema, tolerating p.o. Lasix, continue. as long as blood pressure and renal function permits. Maintain potassium above 4.0 and magnesium above 2.0. Will order supplementation. Consultation Date/Type/Reason Admit Date/Time Mar 19, 2017 at 01:44 Initial Consult Date 03/22/17 Type of Consultation: cv 24 HR Interval Summary Free Text/Dictation Shortness of breath is better, denies palpitations or chest pain Exam/Review of Systems Vital Signs Vitals Vital Signs Date Time Temp Pulse Resp B/P Pulse Ox O2 Delivery O2 Flow Rate FiO2 03/28/17 12:19 97.8 105 18 124/62 95 03/28/17 08:10 Nasal Cannula 3.0 Intake and Output 03/27/17 03/27/17 03/28/17 15:00 23:00 07:00 Intake Total 750 ml 105 ml 750 ml Output Total 1100 ml 1200 ml Balance -350 ml 105 ml -450 ml Exam No apparent distress Constitutional: alert, oriented Head: normocephalic Respiratory: other (Coarse breath sounds bilaterally, no wheezing) Cardiovascular: other (S1-S2 heard), regular rate and rhythm Gastrointestinal: bowel sounds, non-tender, soft Extremities: edema, other (No cyanosis) Results Result Diagram: 03/28/17 0652 03/28/17 0652 Results 24 hrs Laboratory Tests Test 03/27/17 17:28 03/27/17 21:32 03/28/17 04:26 03/28/17 06:52 Bedside Glucose 111 184 135 White Blood Count 6.6 Red Blood Count 3.21 L Hemoglobin 10.0 L Hematocrit 30.9 L Mean Corpuscular Volume 96.3 Mean Corpuscular Hemoglobin 31.2 Mean Corpuscular Hemoglobin Concent 32.4 Red Cell Distribution Width 14.6 H Platelet Count 732 #H Mean Platelet Volume 10.5 H Differential Comment AUTO w/SCAN Platelet Estimate PLT APPEAR INCREASED Sodium Level 137 Potassium Level 3.8 Chloride Level 94 L Carbon Dioxide Level 31 Anion Gap 16 Blood Urea Nitrogen 21 H Creatinine 0.47 Glucose Level 99 # Calcium Level 9.4 Magnesium Level 1.7 Test 03/28/17 12:26 03/28/17 14:19 Bedside Glucose 176 187 Medications Medications Current Medications Atorvastatin Calcium (Lipitor) 40 mg HS GTB Last administered on 03/27/17 21: 25; Admin Dose 40 MG; Start 03/19/17 at 21:00 Bisacodyl (Dulcolax Supp) 10 mg DAILY PRN [place] PRN; Start 03/19/17 at 05:00 Enoxaparin Sodium (Lovenox) 40 mg DAILY SC Last administered on 03/27/17 08:42 ; Admin Dose 40 MG; Start 03/19/17 at 09:00 Tramadol HCl (Ultram) 50 mg BID GTB Last administered on 03/27/17 21:25; Admin Dose 50 MG; Start 03/19/17 at 09:00 Zinc Sulfate (Zinc Sulfate) 220 mg DAILY GTB Last administered on 03/27/17 08: 23; Admin Dose 220 MG; Start 03/19/17 at 09:00 Acetaminophen (Tylenol Liquid) 650 mg Q4H PRN GTB MILD PAIN LEVEL 1-3 Last administered on 03/23/17 22:30; Admin Dose 650 MG; Start 03/19/17 at 06:00 Acetaminophen (Tylenol Liquid) 1,000 mg Q4H PRN PO PAIN LEVEL 4-6/10 Last administered on 03/22/17 03:30; Admin Dose 1,000 MG; Start 03/19/17 at 06:00 Miscellaneous Information 1 ea NOTE XX ; Start 03/19/17 at 06:00 Glucose (Glutose) 15 gm Q15M PRN PO DECREASED GLUCOSE; Start 03/19/17 at 06:00 Glucose (Glutose) 22.5 gm Q15M PRN PO DECREASED GLUCOSE; Start 03/19/17 at 06: 00 Dextrose (D50w Syringe) 25 ml Q15M PRN IV DECREASED GLUCOSE; Start 03/19/17 at 06:00 Dextrose (D50w Syringe) 50 ml Q15M PRN IV DECREASED GLUCOSE; Start 03/19/17 at 06:00 Glucagon (Glucagen) 1 mg Q15M PRN IM DECREASED GLUCOSE; Start 03/19/17 at 06:00 Glucose (Glutose) 15 gm Q15M PRN BUCCAL DECREASED GLUCOSE; Start 03/19/17 at 06 :00 Miscellaneous Information (Pending Santyl Order For Wound Care) This patient mahmood... PRN PRN XX WOUND CARE; Start 03/19/17 at 06:00 Sodium Biphosphate/ Sodium Phosphate (Fleet Enema) 133 ml DAILY PRN [place] CONSTIPATION; Start 03/19/17 at 06:30 Diltiazem HCl (Cardizem) 60 mg Q8 GTB Last administered on 03/28/17 05:48; Admin Dose 60 MG; Start 03/19/17 at 14:00 Metoprolol Tartrate (Lopressor) 5 mg Q6 PRN IV TACHYCARDIA Last administered on 03/23/17 18:02; Admin Dose 5 MG; Start 03/22/17 at 10:30 Morphine Sulfate (morphine) 1 mg Q4H PRN IV severe pain Last administered on 14:30; Admin Dose 1 MG; Start 03/22/17 at 12:00 Ondansetron HCl (Zofran Inj) 4 mg Q4H PRN IV NAUSEA AND/OR VOMITING Last administered on 03/25/17 01:28; Admin Dose 4 MG; Start 03/23/17 at 05:00 Polyethylene Glycol (Miralax) 17 gm DAILY GTB Last administered on 03/27/17 08 :22; Admin Dose 17 GM; Start 03/23/17 at 12:00 Multivitamins (Thera-Plus) 5 ml DAILY GTB Last administered on 03/27/17 08:24 ; Admin Dose 5 ML; Start 03/25/17 at 09:00 Metoclopramide HCl (Reglan) 10 mg Q6 IV Last administered on 03/27/17 17:31; Admin Dose 10 MG; Start 03/27/17 at 00:00 Collagenase (Santyl) 1 applic DAILY TOP Last administered on 03/27/17 14:36; Admin Dose 1 APPLIC; Start 03/27/17 at 12:00 Collagenase (Santyl) 1 applic PRN PRN TOP WOUND CARE; Start 03/27/17 at 10:30 Insulin Glargine (Lantus) 30 unit DAILY@20 SC Last administered on 03/27/17 21 :36; Admin Dose 30 UNIT; Start 03/27/17 at 20:00 Insulin Aspart (Novolog Insulin Pen) NOVOLOG *MILD* ALGORI... Q4 SC Last administered on 03/28/17 14:29; Admin Dose 2 UNIT; Start 03/27/17 at 17:00 Levetiracetam (Keppra Liquid) 500 mg BID GTB Last administered on 03/27/17 23: 07; Admin Dose 500 MG; Start 03/27/17 at 21:00 Pantoprazole (Protonix Tab) 40 mg BID@06,18 PO Last administered on 03/28/17 05:47; Admin Dose 40 MG; Start 03/27/17 at 21:30 Magnesium Chloride (Mag 64) 64 mg BID PO Last administered on 03/27/17 23:02; Admin Dose 64 MG; Start 03/27/17 at 21:30 Gamal Coronel DO Mar 28, 2017 15:41
[2017-03-28] MEDS ORDERED: POTASSIUM CHLORIDE 20 MEQ POWDER FOR ORAL SOLN PO STA (15:52)
--- NOTE | 2017-03-28 16:38 | PN ---
Date/Time of Note Date/Time of Note DATE: 03/28/17 TIME: 16:38 Assessment/Plan VTE Prophylaxis VTE Prophylaxis Intervention: other Lines/Catheters IV C[facility]ter Type (from [facility]): Peripheral IV Urinary Cath still in place: Yes Reason Cath still needed: urinary retention Assessment/Plan Assessment/Plan - Hypomagnesium- relet Mg, check am mag level. - Sepsis with leukocytosis tachycardia, resolving. - Possible HCAP vs aspiration - continue abx per ID. Dr. Pitt is following in infection disease consultation. - is following in pulmonology consultation. Continue bronchodilators and oxygen supplementation. - Sinus tachycardia, Dr. Candelario is following and cardiology consultation, continue telemetry monitoring. - Left hand swelling. Continue broad-spectrum antibiotics for possible cellulitis. - Seizure disorder. Continue Keppra. - Dysphagia with percutaneous endoscopic gastrostomy. Continue G-tube feeding, aspiration precautions. - Diabetes mellitus type 2. Continue NPH. - Dyslipidemia. Continue statins. - Hypertension. The patient is currently normotensive. - Schizophrenia and bipolar disorder. Continue Lovenox for deep venous thrombosis prophylaxis. Further recommendations based on clinical course. Plan of care was discussed with Dr. Aly. Subjective 24 Hr Interval Summary Free Text/Dictation nad, resting in bed, seems comfortable., afebrile, no agitation noted.dw staff. Constitutional: requiring IVF Exam/Review of Systems Vital Signs Vitals Vital Signs Date Time Temp Pulse Resp B/P Pulse Ox O2 Delivery O2 Flow Rate FiO2 03/28/17 12:19 97.8 105 18 124/62 95 03/28/17 08:10 Nasal Cannula 3.0 Intake and Output 03/27/17 03/27/17 03/28/17 15:00 23:00 07:00 Intake Total 750 ml 105 ml 750 ml Output Total 1100 ml 1200 ml Balance -350 ml 105 ml -450 ml Exam Constitutional: alert, well developed Psych: nl mood/affect Eyes: nl sclera ENMT: nl external ears & nose Neck: non-tender Respiratory: clear to auscultation Cardiovascular: nl pulses Gastrointestinal: non-tender, soft Musculoskeletal: muscle weakness Results Result Diagram: 03/28/17 0652 03/28/17 0652 Results 24 hrs Laboratory Tests Test 03/27/17 17:28 03/27/17 21:32 03/28/17 04:26 03/28/17 06:52 Bedside Glucose 111 184 135 White Blood Count 6.6 Red Blood Count 3.21 L Hemoglobin 10.0 L Hematocrit 30.9 L Mean Corpuscular Volume 96.3 Mean Corpuscular Hemoglobin 31.2 Mean Corpuscular Hemoglobin Concent 32.4 Red Cell Distribution Width 14.6 H Platelet Count 732 #H Mean Platelet Volume 10.5 H Differential Comment AUTO w/SCAN Platelet Estimate PLT APPEAR INCREASED Sodium Level 137 Potassium Level 3.8 Chloride Level 94 L Carbon Dioxide Level 31 Anion Gap 16 Blood Urea Nitrogen 21 H Creatinine 0.47 Glucose Level 99 # Calcium Level 9.4 Magnesium Level 1.7 Test 03/28/17 12:26 03/28/17 14:19 Bedside Glucose 176 187 Medications Medications Current Medications Atorvastatin Calcium (Lipitor) 40 mg HS GTB Last administered on 03/27/17 21: 25; Admin Dose 40 MG; Start 03/19/17 at 21:00 Bisacodyl (Dulcolax Supp) 10 mg DAILY PRN [place] PRN; Start 03/19/17 at 05:00 Enoxaparin Sodium (Lovenox) 40 mg DAILY SC Last administered on 03/27/17 08:42 ; Admin Dose 40 MG; Start 03/19/17 at 09:00 Tramadol HCl (Ultram) 50 mg BID GTB Last administered on 03/27/17 21:25; Admin Dose 50 MG; Start 03/19/17 at 09:00 Zinc Sulfate (Zinc Sulfate) 220 mg DAILY GTB Last administered on 03/27/17 08: 23; Admin Dose 220 MG; Start 03/19/17 at 09:00 Acetaminophen (Tylenol Liquid) 650 mg Q4H PRN GTB MILD PAIN LEVEL 1-3 Last administered on 03/23/17 22:30; Admin Dose 650 MG; Start 03/19/17 at 06:00 Acetaminophen (Tylenol Liquid) 1,000 mg Q4H PRN PO PAIN LEVEL 4-6/10 Last administered on 03/22/17 03:30; Admin Dose 1,000 MG; Start 03/19/17 at 06:00 Miscellaneous Information 1 ea NOTE XX ; Start 03/19/17 at 06:00 Glucose (Glutose) 15 gm Q15M PRN PO DECREASED GLUCOSE; Start 03/19/17 at 06:00 Glucose (Glutose) 22.5 gm Q15M PRN PO DECREASED GLUCOSE; Start 03/19/17 at 06: 00 Dextrose (D50w Syringe) 25 ml Q15M PRN IV DECREASED GLUCOSE; Start 03/19/17 at 06:00 Dextrose (D50w Syringe) 50 ml Q15M PRN IV DECREASED GLUCOSE; Start 03/19/17 at 06:00 Glucagon (Glucagen) 1 mg Q15M PRN IM DECREASED GLUCOSE; Start 03/19/17 at 06:00 Glucose (Glutose) 15 gm Q15M PRN BUCCAL DECREASED GLUCOSE; Start 03/19/17 at 06 :00 Sodium Biphosphate/ Sodium Phosphate (Fleet Enema) 133 ml DAILY PRN [place] CONSTIPATION; Start 03/19/17 at 06:30 Diltiazem HCl (Cardizem) 60 mg Q8 GTB Last administered on 03/28/17 15:50; Admin Dose 60 MG; Start 03/19/17 at 14:00 Metoprolol Tartrate (Lopressor) 5 mg Q6 PRN IV TACHYCARDIA Last administered on 03/23/17 18:02; Admin Dose 5 MG; Start 03/22/17 at 10:30 Morphine Sulfate (morphine) 1 mg Q4H PRN IV severe pain Last administered on 14:30; Admin Dose 1 MG; Start 03/22/17 at 12:00 Ondansetron HCl (Zofran Inj) 4 mg Q4H PRN IV NAUSEA AND/OR VOMITING Last administered on 03/25/17 01:28; Admin Dose 4 MG; Start 03/23/17 at 05:00 Polyethylene Glycol (Miralax) 17 gm DAILY GTB Last administered on 03/27/17 08 :22; Admin Dose 17 GM; Start 03/23/17 at 12:00 Multivitamins (Thera-Plus) 5 ml DAILY GTB Last administered on 03/27/17 08:24 ; Admin Dose 5 ML; Start 03/25/17 at 09:00 Metoclopramide HCl (Reglan) 10 mg Q6 IV Last administered on 03/27/17 17:31; Admin Dose 10 MG; Start 03/27/17 at 00:00 Collagenase (Santyl) 1 applic DAILY TOP Last administered on 03/27/17 14:36; Admin Dose 1 APPLIC; Start 03/27/17 at 12:00 Collagenase (Santyl) 1 applic PRN PRN TOP WOUND CARE; Start 03/27/17 at 10:30 Insulin Glargine (Lantus) 30 unit DAILY@20 SC Last administered on 03/27/17 21 :36; Admin Dose 30 UNIT; Start 03/27/17 at 20:00 Insulin Aspart (Novolog Insulin Pen) NOVOLOG *MILD* ALGORI... Q4 SC Last administered on 03/28/17 14:29; Admin Dose 2 UNIT; Start 03/27/17 at 17:00 Levetiracetam (Keppra Liquid) 500 mg BID GTB Last administered on 03/27/17 23: 07; Admin Dose 500 MG; Start 03/27/17 at 21:00 Pantoprazole (Protonix Tab) 40 mg BID@06,18 PO Last administered on 03/28/17 05:47; Admin Dose 40 MG; Start 03/27/17 at 21:30 Magnesium Chloride 64 mg 64 mg BID PO Last administered on 03/27/17 23:02; Admin Dose 64 MG; Start 03/27/17 at 21:30 Magnesium Sulfate (Magnesium Sulfate 2 Gm/50 ml) 50 ml @ 25 mls/hr ONCE ONCE IVPB ; Start 03/28/17 at 17:00; Stop 03/28/17 at 18:59 MICHAEL COLINDRES Mar 28, 2017 16:38
[2017-03-28] MEDS ORDERED: MAGNESIUM SULFATE 2 GM/50 ML 50 ML IVPB ONE (17:00)
[2017-03-28] MEDS ORDERED: LANSOPRAZOLE 30 MG CAP PO SCH (18:00)
[2017-03-28 20:55] VITALS: BP 131/58; RESP 16
[2017-03-28] MEDS: LANSOPRAZOLE 30 MG CAP GTB SCH (20:59)
[2017-03-28] MEDS: ATORVASTATIN 40 MG TAB GTB SCH (21:05)
[2017-03-28] MEDS: INSULIN GLARGINE [LANtus] 3 ML PEN SC SCH (21:07)
[2017-03-29] MEDS: INSULIN ASPART [NOVOLOG] 3 ML PEN SC SCH ×6 (00:14→21:03)
[2017-03-29] MEDS: METOCLOPRAMIDE 10 MG INJ IV SCH ×3 (05:22→17:55)
[2017-03-29] MEDS: LANSOPRAZOLE 30 MG CAP GTB SCH ×2 (05:22→17:56)
[2017-03-29] MEDS: DILTIAZEM 60 MG TAB GTB SCH ×3 (05:22→21:08)
[2017-03-29] MEDS: FUROSEMIDE 20 MG TAB PO SCH ×2 (05:24→17:57)
[2017-03-29 08:41] VITALS: BP 129/61; RESP 17
[2017-03-29] MEDS: POLYETHYLENE GLYCOL 17 GM PACKET GTB SCH (08:47)
[2017-03-29] MEDS: MULTIVITAMINS 5 ML CUP GTB SCH (08:47)
[2017-03-29] MEDS: LEVETIRACETAM (100 MG/ML) 5ML CUP GTB SCH ×2 (08:47→20:55)
[2017-03-29] MEDS: traMADol 50 MG TAB GTB SCH ×2 (08:48→20:55)
[2017-03-29] MEDS: ZINC SULFATE 220 MG CAP GTB SCH (08:48)
[2017-03-29] MEDS: MAGNESIUM CHLORIDE (SR) 64 MG TAB PO SCH ×2 (08:48→20:54)
[2017-03-29] MEDS: ENOXAPARIN 40 MG/0.4 ML SYG SC SCH (09:00)
[2017-03-29] MEDS: COLLAGENASE 30 GM TUBE TOP SCH (12:48)
--- NOTE | 2017-03-29 13:40 | CONS ---
Date/Time of Note Date/Time of Note DATE: 03/29/17 TIME: 13:39 Assessment/Plan Assessment/Plan Additional Assessment/Plan Sepsis Acute decompensated diastolic congestive heart failure-improving Sinus tachycardia History of paroxysmal atrial tachycardia Preserved ejection fraction Psychiatric disorder Seizure disorder Volume overload -Lung examination improving as well as less peripheral edema, tolerating p.o. Lasix, continue. as long as blood pressure and renal function permits. Maintain potassium above 4.0 and magnesium above 2.0. Patient refusing IV access and cannot give magnesium IV, would give via NG tube. Consultation Date/Type/Reason Admit Date/Time Mar 19, 2017 at 01:44 Initial Consult Date 03/22/17 Type of Consultation: cv 24 HR Interval Summary Free Text/Dictation Denies shortness of breath, palpitations or chest pain Exam/Review of Systems Vital Signs Vitals Vital Signs Date Time Temp Pulse Resp B/P Pulse Ox O2 Delivery O2 Flow Rate FiO2 03/29/17 08:41 98.2 103 17 129/61 95 03/28/17 12:15 Nasal Cannula 3.0 Intake and Output 03/28/17 03/28/17 03/29/17 15:00 23:00 07:00 Intake Total 425 ml 860 ml Output Total 600 ml 1100 ml Balance -175 ml -240 ml Exam No apparent distress Constitutional: alert, oriented Head: normocephalic Respiratory: other (Coarse breath sounds bilaterally, no wheezing) Cardiovascular: other (S1-S2 heard), regular rate and rhythm Gastrointestinal: bowel sounds, non-tender, soft Extremities: edema (Trace) Results Result Diagram: 03/28/17 0652 03/28/17 0652 Results 24 hrs Laboratory Tests Test 03/28/17 14:19 03/28/17 17:15 03/28/17 20:43 03/29/17 00:12 Bedside Glucose 187 202 272 H 172 Test 03/29/17 05:18 03/29/17 08:47 03/29/17 12:50 Bedside Glucose 179 226 H 226 H Medications Medications Current Medications Atorvastatin Calcium (Lipitor) 40 mg HS GTB Last administered on 03/28/17t 21: 05; Admin Dose 40 MG; Start 03/19/17 at 21:00 Bisacodyl (Dulcolax Supp) 10 mg DAILY PRN [place] PRN; Start 03/19/17 at 05:00 Enoxaparin Sodium (Lovenox) 40 mg DAILY SC Last administered on 03/29/17 09:00 ; Admin Dose 40 MG; Start 03/19/17 at 09:00 Tramadol HCl (Ultram) 50 mg BID GTB Last administered on 03/29/17 08:48; Admin Dose 50 MG; Start 03/19/17 at 09:00 Zinc Sulfate (Zinc Sulfate) 220 mg DAILY GTB Last administered on 03/29/17 08: 48; Admin Dose 220 MG; Start 03/19/17 at 09:00 Acetaminophen (Tylenol Liquid) 650 mg Q4H PRN GTB MILD PAIN LEVEL 1-3 Last administered on 03/23/17 22:30; Admin Dose 650 MG; Start 03/19/17 at 06:00 Acetaminophen (Tylenol Liquid) 1,000 mg Q4H PRN PO PAIN LEVEL 4-6/10 Last administered on 03/22/17 03:30; Admin Dose 1,000 MG; Start 03/19/17 at 06:00 Miscellaneous Information 1 ea NOTE XX ; Start 03/19/17 at 06:00 Glucose (Glutose) 15 gm Q15M PRN PO DECREASED GLUCOSE; Start 03/19/17 at 06:00 Glucose (Glutose) 22.5 gm Q15M PRN PO DECREASED GLUCOSE; Start 03/19/17 at 06: 00 Dextrose (D50w Syringe) 25 ml Q15M PRN IV DECREASED GLUCOSE; Start 03/19/17 at 06:00 Dextrose (D50w Syringe) 50 ml Q15M PRN IV DECREASED GLUCOSE; Start 03/19/17 at 06:00 Glucagon (Glucagen) 1 mg Q15M PRN IM DECREASED GLUCOSE; Start 03/19/17 at 06:00 Glucose (Glutose) 15 gm Q15M PRN BUCCAL DECREASED GLUCOSE; Start 03/19/17 at 06 :00 Sodium Biphosphate/ Sodium Phosphate (Fleet Enema) 133 ml DAILY PRN [place] CONSTIPATION; Start 03/19/17 at 06:30 Diltiazem HCl (Cardizem) 60 mg Q8 GTB Last administered on 03/29/17 08:48; Admin Dose 60 MG; Start 03/19/17 at 14:00 Metoprolol Tartrate (Lopressor) 5 mg Q6 PRN IV TACHYCARDIA Last administered on 03/23/17 18:02; Admin Dose 5 MG; Start 03/22/17 at 10:30 Morphine Sulfate (morphine) 1 mg Q4H PRN IV severe pain Last administered on 14:30; Admin Dose 1 MG; Start 03/22/17 at 12:00 Ondansetron HCl (Zofran Inj) 4 mg Q4H PRN IV NAUSEA AND/OR VOMITING Last administered on 03/25/17 01:28; Admin Dose 4 MG; Start 03/23/17 at 05:00 Polyethylene Glycol (Miralax) 17 gm DAILY GTB Last administered on 03/29/17 08 :47; Admin Dose 17 GM; Start 03/23/17 at 12:00 Multivitamins (Thera-Plus) 5 ml DAILY GTB Last administered on 03/29/17 08:47 ; Admin Dose 5 ML; Start 03/25/17 at 09:00 Metoclopramide HCl (Reglan) 10 mg Q6 IV Last administered on 03/27/17 17:31; Admin Dose 10 MG; Start 03/27/17 at 00:00 Collagenase (Santyl) 1 applic DAILY TOP Last administered on 03/29/17 12:48; Admin Dose 1 APPLIC; Start 03/27/17 at 12:00 Collagenase (Santyl) 1 applic PRN PRN TOP WOUND CARE; Start 03/27/17 at 10:30 Insulin Glargine (Lantus) 30 unit DAILY@20 SC Last administered on 03/28/17 21 :07; Admin Dose 30 UNIT; Start 03/27/17 at 20:00 Insulin Aspart (Novolog Insulin Pen) NOVOLOG *MILD* ALGORI... Q4 SC Last administered on 03/29/17 12:54; Admin Dose 3 UNIT; Start 03/27/17 at 17:00 Levetiracetam (Keppra Liquid) 500 mg BID GTB Last administered on 03/29/17 08: 47; Admin Dose 500 MG; Start 03/27/17 at 21:00 Magnesium Chloride (Mag 64) 64 mg BID PO Last administered on 03/29/17 08:48; Admin Dose 64 MG; Start 03/27/17 at 21:30 Lansoprazole (Prevacid) 30 mg BID@06,18 GTB Last administered on 4/28/17at 05: 22; Admin Dose 30 MG; Start 03/28/17 at 18:00 Gamal Coroenl DO Mar 29, 2017 13:40
[2017-03-29] MEDS ORDERED: POTASSIUM CHLORIDE 20 MEQ POWDER FOR ORAL SOLN NGT ONE (14:00)
--- NOTE | 2017-03-29 15:09 | CONS ---
Date/Time of Note Date/Time of Note DATE: 03/29/17 TIME: 15:08 Consult Date/Type/Reason Admit Date/Time Mar 19, 2017 at 01:44 Initial Consult Date 03/22/17 Type of Consultation: pulmonary Subjective Patient stable no new events Objective Vital Signs Date Time Temp Pulse Resp B/P Pulse Ox O2 Delivery O2 Flow Rate FiO2 03/29/17 08:41 98.2 103 17 129/61 95 03/28/17 12:15 Nasal Cannula 3.0 Intake and Output 03/28/17 03/28/17 03/29/17 15:00 23:00 07:00 Intake Total 425 ml 860 ml Output Total 600 ml 1100 ml Balance -175 ml -240 ml Exam PHYSICAL EXAMINATION: GENERAL: Elderly, chronically ill-appearing lady, appears comfortable at rest, no acute distress. VITAL SIGNS: As above NECK: Supple. No JVD or lymphadenopathy. CARDIAC: S1, S2, no added sounds or murmurs. CHEST: Diminished air entry bilaterally. ABDOMEN: Soft, nontender. No guarding or rebound. EXTREMITIES: No cyanosis, clubbing, edema. NEUROLOGIC: Generalized weakness. Results/Medications Result Diagram: 03/28/17 0652 03/28/17 0652 Results 24 hrs Laboratory Tests Test 03/28/17 17:15 03/28/17 20:43 03/29/17 00:12 03/29/17 05:18 Bedside Glucose 202 272 H 172 179 Test 03/29/17 08:47 03/29/17 12:50 Bedside Glucose 226 H 226 H Medications Current Medications Atorvastatin Calcium (Lipitor) 40 mg HS GTB Last administered on 03/28/17 21: 05; Admin Dose 40 MG; Start 03/19/17 at 21:00 Bisacodyl (Dulcolax Supp) 10 mg DAILY PRN [place] PRN; Start 03/19/17 at 05:00 Enoxaparin Sodium (Lovenox) 40 mg DAILY SC Last administered on 03/29/17 09:00 ; Admin Dose 40 MG; Start 03/19/17 at 09:00 Tramadol HCl (Ultram) 50 mg BID GTB Last administered on 03/29/17 08:48; Admin Dose 50 MG; Start 03/19/17 at 09:00 Zinc Sulfate (Zinc Sulfate) 220 mg DAILY GTB Last administered on 03/29/17 08: 48; Admin Dose 220 MG; Start 03/19/17 at 09:00 Acetaminophen (Tylenol Liquid) 650 mg Q4H PRN GTB MILD PAIN LEVEL 1-3 Last administered on 03/23/17 22:30; Admin Dose 650 MG; Start 03/19/17 at 06:00 Acetaminophen (Tylenol Liquid) 1,000 mg Q4H PRN PO PAIN LEVEL 4-6/10 Last administered on 03/22/17 03:30; Admin Dose 1,000 MG; Start 03/19/17 at 06:00 Miscellaneous Information 1 ea NOTE XX ; Start 03/19/17 at 06:00 Glucose (Glutose) 15 gm Q15M PRN PO DECREASED GLUCOSE; Start 03/19/17 at 06:00 Glucose (Glutose) 22.5 gm Q15M PRN PO DECREASED GLUCOSE; Start 03/19/17 at 06: 00 Dextrose (D50w Syringe) 25 ml Q15M PRN IV DECREASED GLUCOSE; Start 03/19/17 at 06:00 Dextrose (D50w Syringe) 50 ml Q15M PRN IV DECREASED GLUCOSE; Start 03/19/17 at 06:00 Glucagon (Glucagen) 1 mg Q15M PRN IM DECREASED GLUCOSE; Start 03/19/17 at 06:00 Glucose (Glutose) 15 gm Q15M PRN BUCCAL DECREASED GLUCOSE; Start 03/19/17 at 06 :00 Sodium Biphosphate/ Sodium Phosphate (Fleet Enema) 133 ml DAILY PRN [place] CONSTIPATION; Start 03/19/17 at 06:30 Diltiazem HCl (Cardizem) 60 mg Q8 GTB Last administered on 03/29/17 08:48; Admin Dose 60 MG; Start 03/19/17 at 14:00 Metoprolol Tartrate (Lopressor) 5 mg Q6 PRN IV TACHYCARDIA Last administered on 03/23/17 18:02; Admin Dose 5 MG; Start 03/22/17 at 10:30 Morphine Sulfate (morphine) 1 mg Q4H PRN IV severe pain Last administered on 14:30; Admin Dose 1 MG; Start 03/22/17 at 12:00 Ondansetron HCl (Zofran Inj) 4 mg Q4H PRN IV NAUSEA AND/OR VOMITING Last administered on 03/25/17 01:28; Admin Dose 4 MG; Start 03/23/17 at 05:00 Polyethylene Glycol (Miralax) 17 gm DAILY GTB Last administered on 03/29/17 08 :47; Admin Dose 17 GM; Start 03/23/17 at 12:00 Multivitamins (Thera-Plus) 5 ml DAILY GTB Last administered on 03/29/17 08:47 ; Admin Dose 5 ML; Start 03/25/17 at 09:00 Metoclopramide HCl (Reglan) 10 mg Q6 IV Last administered on 03/27/17 17:31; Admin Dose 10 MG; Start 03/27/17 at 00:00 Collagenase (Santyl) 1 applic DAILY TOP Last administered on 03/29/17 12:48; Admin Dose 1 APPLIC; Start 03/27/17 at 12:00 Collagenase (Santyl) 1 applic PRN PRN TOP WOUND CARE; Start 03/27/17 at 10:30 Insulin Glargine (Lantus) 30 unit DAILY@20 SC Last administered on 03/28/17 21 :07; Admin Dose 30 UNIT; Start 03/27/17 at 20:00 Insulin Aspart (Novolog Insulin Pen) NOVOLOG *MILD* ALGORI... Q4 SC Last administered on 03/29/17 12:54; Admin Dose 3 UNIT; Start 03/27/17 at 17:00 Levetiracetam (Keppra Liquid) 500 mg BID GTB Last administered on 03/29/17 08: 47; Admin Dose 500 MG; Start 03/27/17 at 21:00 Magnesium Chloride (Mag 64) 64 mg BID PO Last administered on 03/29/17 08:48; Admin Dose 64 MG; Start 03/27/17 at 21:30 Lansoprazole (Prevacid) 30 mg BID@06,18 GTB Last administered on 03/29/17 05: 22; Admin Dose 30 MG; Start 03/28/17 at 18:00 Magnesium Oxide (Mag-Ox 400) 400 mg DAILY NGT ; Start 03/29/17 at 14:00; Stop at 09:01 Assessment/Plan Chief Complaint/Hosp Course Assessment 1. Hypoxemic respiratory failure 2. Congestive cardiac failure 3. Possible aspiration component 4. Lower extremity weakness Plan 1. Aspiration precautions 2. Gentle diuresis 3. DVT GI prophylaxis 4. Consider [facility] transfer Consider discharge planning Problems: GINO SUTHERLAND MD, FCCP Mar 29, 2017 15:09
[2017-03-29] MEDS: MAGNESIUM OXIDE 400 MG TAB NGT SCH (15:28)
--- NOTE | 2017-03-29 16:46 | CONS ---
Date/Time of Note Date/Time of Note DATE: 03/29/17 TIME: 16:45 Assessment/Plan Assessment/Plan Additional Assessment/Plan Additional Assessment/Plan IMPRESSION: 1. nausea with vomiting: KUB negative resolved 2. Possible sepsis with leukocytosis tachycardia. 3. Possible HCAP 4. Sinus tachycardia, most likely secondary to dehydration. 5. Left arm/hand swelling. 6. Seizure disorder. 7. Dysphagia with percutaneous endoscopic gastrostomy. 8. Iron deficiency anemia 9 abnormal liver function test 10. Diabetic gastroparesis RECOMMENDATION 1. change pepcid to protonix iv bid in case n/v due to PUD, gastritis, esophagitis 2. change bowel regiman to miralax daily 3. add reglan 10 mg iv bid to see if it will help with the nausea 5. continue to hold tube feed for now (as she is still nauseous and awaiting KUB from today) but ok for meds 7. stop GT iron as it can be constipating. will recheck iron panel and replete by IV if low 8. stop vitamin C as we replete iron if low by IV and to minimize GT load 9. continue D5 LR with 20 mEQ KCL so pt don't need GT potassium to minimize constipation and nausea (oral KCL can cause nausea) 10. Ultrasound of the liver, acute hepatitis panel hepatitis panel negative. Ultrasound of the abdomen not done. 11. Will increase the dose of Reglan #12 patient refused sonogram of the liver Consultation Date/Type/Reason Admit Date/Time Mar 19, 2017 at 01:44 Initial Consult Date 03/22/17 Type of Consultation: pulmonary 24 HR Interval Summary Free Text/Dictation No emesis, patient is tolerating feeding. Constitutional: no complaints Exam/Review of Systems Vital Signs Vitals Vital Signs Date Time Temp Pulse Resp B/P Pulse Ox O2 Delivery O2 Flow Rate FiO2 03/29/17 08:41 98.2 103 17 129/61 95 03/28/17 12:15 Nasal Cannula 3.0 Intake and Output 03/28/17 03/28/17 03/29/17 15:00 23:00 07:00 Intake Total 425 ml 860 ml Output Total 600 ml 1100 ml Balance -175 ml -240 ml Exam Constitutional: alert, oriented, well developed Psych: nl mood/affect, no complaints Head: atraumatic, normocephalic Eyes: EOMI, PERRL, nl conjunctiva, nl lids, nl sclera ENMT: nl external ears & nose, nl lips & teeth, nl nasal mucosa & septum Neck: non-tender, supple Respiratory: clear to auscultation, normal air movement Cardiovascular: nl pulses, regular rate and rhythm Gastrointestinal: nl liver, spleen, non-tender, soft Musculoskeletal: nl extremities to inspection, nl gait and stance Extremities: normal pulses 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, nl mental status, nl speech, nl strength Skin: nl turgor, No rash or lesions Lymph: nl lymph nodes Results Result Diagram: 03/28/17 0652 03/28/1752 Results 24 hrs Laboratory Tests Test 03/28/17 17:15 03/28/17 20:43 03/29/17 00:12 03/29/17 05:18 Bedside Glucose 202 272 H 172 179 Test 03/29/17 08:47 03/29/17 12:50 Bedside Glucose 226 H 226 H Medications Medications Current Medications Atorvastatin Calcium (Lipitor) 40 mg HS GTB Last administered on 03/28/17 21: 05; Admin Dose 40 MG; Start 03/19/17 at 21:00 Bisacodyl (Dulcolax Supp) 10 mg DAILY PRN [place] PRN; Start 03/19/17 at 05:00 Enoxaparin Sodium (Lovenox) 40 mg DAILY SC Last administered on 03/29/17 09:00 ; Admin Dose 40 MG; Start 03/19/17 at 09:00 Tramadol HCl (Ultram) 50 mg BID GTB Last administered on 03/29/17 08:48; Admin Dose 50 MG; Start 03/19/17 at 09:00 Zinc Sulfate (Zinc Sulfate) 220 mg DAILY GTB Last administered on 03/29/17 08: 48; Admin Dose 220 MG; Start 03/19/17 at 09:00 Acetaminophen (Tylenol Liquid) 650 mg Q4H PRN GTB MILD PAIN LEVEL 1-3 Last administered on 03/23/17 22:30; Admin Dose 650 MG; Start 03/19/17 at 06:00 Acetaminophen (Tylenol Liquid) 1,000 mg Q4H PRN PO PAIN LEVEL 4-6/10 Last administered on 03/22/17 03:30; Admin Dose 1,000 MG; Start 03/19/17 at 06:00 Miscellaneous Information 1 ea NOTE XX ; Start 03/19/17 at 06:00 Glucose (Glutose) 15 gm Q15M PRN PO DECREASED GLUCOSE; Start 03/19/17 at 06:00 Glucose (Glutose) 22.5 gm Q15M PRN PO DECREASED GLUCOSE; Start 03/19/17 at 06: 00 Dextrose (D50w Syringe) 25 ml Q15M PRN IV DECREASED GLUCOSE; Start 03/19/17 at 06:00 Dextrose (D50w Syringe) 50 ml Q15M PRN IV DECREASED GLUCOSE; Start 03/19/17 at 06:00 Glucagon (Glucagen) 1 mg Q15M PRN IM DECREASED GLUCOSE; Start 03/19/17 at 06:00 Glucose (Glutose) 15 gm Q15M PRN BUCCAL DECREASED GLUCOSE; Start 03/19/17 at 06 :00 Sodium Biphosphate/ Sodium Phosphate (Fleet Enema) 133 ml DAILY PRN [place] CONSTIPATION; Start 03/19/17 at 06:30 Diltiazem HCl (Cardizem) 60 mg Q8 GTB Last administered on 03/29/17 08:48; Admin Dose 60 MG; Start 03/19/17 at 14:00 Metoprolol Tartrate (Lopressor) 5 mg Q6 PRN IV TACHYCARDIA Last administered on 03/23/17 18:02; Admin Dose 5 MG; Start 03/22/17 at 10:30 Morphine Sulfate (morphine) 1 mg Q4H PRN IV severe pain Last administered on 14:30; Admin Dose 1 MG; Start 03/22/17 at 12:00 Ondansetron HCl (Zofran Inj) 4 mg Q4H PRN IV NAUSEA AND/OR VOMITING Last administered on 03/25/17 01:28; Admin Dose 4 MG; Start 03/23/17 at 05:00 Polyethylene Glycol (Miralax) 17 gm DAILY GTB Last administered on 03/29/17 08 :47; Admin Dose 17 GM; Start 03/23/17 at 12:00 Multivitamins (Thera-Plus) 5 ml DAILY GTB Last administered on 03/29/17 08:47 ; Admin Dose 5 ML; Start 03/25/17 at 09:00 Metoclopramide HCl (Reglan) 10 mg Q6 IV Last administered on 03/27/17 17:31; Admin Dose 10 MG; Start 03/27/17 at 00:00 Collagenase (Santyl) 1 applic DAILY TOP Last administered on 03/29/17 12:48; Admin Dose 1 APPLIC; Start 03/27/17 at 12:00 Collagenase (Santyl) 1 applic PRN PRN TOP WOUND CARE; Start 03/27/17 at 10:30 Insulin Glargine (Lantus) 30 unit DAILY@20 SC Last administered on 03/28/17 21 :07; Admin Dose 30 UNIT; Start 03/27/17 at 20:00 Insulin Aspart (Novolog Insulin Pen) NOVOLOG *MILD* ALGORI... Q4 SC Last administered on 03/29/17 12:54; Admin Dose 3 UNIT; Start 03/27/17 at 17:00 Levetiracetam (Keppra Liquid) 500 mg BID GTB Last administered on 03/29/17 08: 47; Admin Dose 500 MG; Start 03/27/17 at 21:00 Magnesium Chloride (Mag 64) 64 mg BID PO Last administered on 03/29/17 08:48; Admin Dose 64 MG; Start 03/27/17 at 21:30 Lansoprazole (Prevacid) 30 mg BID@06,18 GTB Last administered on 03/29/17 05: 22; Admin Dose 30 MG; Start 03/28/17 at 18:00 Magnesium Oxide (Mag-Ox 400) 400 mg DAILY NGT Last administered on 03/29/17 15 :28; Admin Dose 400 MG; Start 03/29/17 at 14:00; Stop 04/02/17 at 09:01 KAYLEE FAN MD Mar 29, 2017 16:46
--- NOTE | 2017-03-29 18:30 | PN ---
Date/Time of Note Date/Time of Note DATE: 03/29/17 TIME: 18:29 Assessment/Plan VTE Prophylaxis VTE Prophylaxis Intervention: SCD's Lines/Catheters IV Catheter Type (from [facility]): Peripheral IV Central line still needed: Yes Urinary Cath still in place: Yes Reason Cath still needed: urinary retention Assessment/Plan Chief Complaint/Hosp Course ASSESSMENT AND PLAN: - Sepsis with leukocytosis tachycardia, resolving. - Possible HCAP vs aspiration, continue abx per ID. Dr. Pitt is following in infection disease consultation. is following in pulmonology consultation. Continue bronchodilators and oxygen supplementation. - Sinus tachycardia, Dr. Candelario is following and cardiology consultation, continue telemetry monitoring. - Left hand swelling. Continue broad-spectrum antibiotics for possible cellulitis. - Seizure disorder. Continue Keppra. - Dysphagia with percutaneous endoscopic gastrostomy. Continue G-tube feeding, aspiration precautions. - Diabetes mellitus type 2. Continue Lantus and NovoLog per sliding scale with every 4 hours Accu-Chek. - Dyslipidemia. Continue statins. - Hypertension. The patient is currently normotensive. - Schizophrenia and bipolar disorder. Continue Lovenox for deep venous thrombosis prophylaxis. Further recommendations based on clinical course. Plan of care was discussed with Dr. Aly. Problems: Subjective 24 Hr Interval Summary Free Text/Dictation No complaints, patient tolerates G-tube feeding well. Exam/Review of Systems Vital Signs Vitals Vital Signs Date Time Temp Pulse Resp B/P Pulse Ox O2 Delivery O2 Flow Rate FiO2 03/29/17 08:41 98.2 103 17 129/61 95 03/28/17 12:15 Nasal Cannula 3.0 Intake and Output 03/28/17 03/28/17 03/29/17 15:00 23:00 07:00 Intake Total 425 ml 860 ml Output Total 600 ml 1100 ml Balance -175 ml -240 ml Exam GENERAL: Well-developed, well-nourished female, currently awake alert. HEENT: Head is atraumatic, normocephalic. Pupils equal, round, reactive to light and accommodation. Oral mucosa is pink and moist. NECK: Supple, no cervical lymphadenopathy, no thyromegaly. CHEST: Lungs clear bilaterally, slightly diminished at the bases. CARDIOVASCULAR: Normal S1, S2. No murmurs, gallops, clicks, rubs noted. The patient is tachycardic. ABDOMEN: Round, soft, nondistended, nontender. G-tube with intact stoma. SKIN: There is no rash, petechiae. NEUROLOGIC: The patient is awake, alert. Results Result Diagram: 03/28/17 0652 03/28/17 0652 Results 24 hrs Laboratory Tests Test 03/28/17 20:43 03/29/17 00:12 03/29/17 05:18 03/29/17 08:47 Bedside Glucose 272 H 172 179 226 H Test 03/29/17 12:50 03/29/17 17:58 Bedside Glucose 226 H 228 H Medications Medications Current Medications Atorvastatin Calcium (Lipitor) 40 mg HS GTB Last administered on 03/28/17 21: 05; Admin Dose 40 MG; Start 03/19/17 at 21:00 Bisacodyl (Dulcolax Supp) 10 mg DAILY PRN [place] PRN; Start 03/19/17 at 05:00 Enoxaparin Sodium (Lovenox) 40 mg DAILY SC Last administered on 03/29/17 09:00 ; Admin Dose 40 MG; Start 03/19/17 at 09:00 Tramadol HCl (Ultram) 50 mg BID GTB Last administered on 03/29/17 08:48; Admin Dose 50 MG; Start 03/19/17 at 09:00 Zinc Sulfate (Zinc Sulfate) 220 mg DAILY GTB Last administered on 03/29/17 08: 48; Admin Dose 220 MG; Start 03/19/17 at 09:00 Acetaminophen (Tylenol Liquid) 650 mg Q4H PRN GTB MILD PAIN LEVEL 1-3 Last administered on 03/23/17 22:30; Admin Dose 650 MG; Start 03/19/17 at 06:00 Acetaminophen (Tylenol Liquid) 1,000 mg Q4H PRN PO PAIN LEVEL 4-6/10 Last administered on 03/22/17 03:30; Admin Dose 1,000 MG; Start 03/19/17 at 06:00 Miscellaneous Information 1 ea NOTE XX ; Start 03/19/17 at 06:00 Glucose (Glutose) 15 gm Q15M PRN PO DECREASED GLUCOSE; Start 03/19/17 at 06:00 Glucose (Glutose) 22.5 gm Q15M PRN PO DECREASED GLUCOSE; Start 03/19/17 at 06: 00 Dextrose (D50w Syringe) 25 ml Q15M PRN IV DECREASED GLUCOSE; Start 03/19/17 at 06:00 Dextrose (D50w Syringe) 50 ml Q15M PRN IV DECREASED GLUCOSE; Start 03/19/17 at 06:00 Glucagon (Glucagen) 1 mg Q15M PRN IM DECREASED GLUCOSE; Start 03/19/17 at 06:00 Glucose (Glutose) 15 gm Q15M PRN BUCCAL DECREASED GLUCOSE; Start 03/19/17 at 06 :00 Sodium Biphosphate/ Sodium Phosphate (Fleet Enema) 133 ml DAILY PRN [place] CONSTIPATION; Start 03/19/17 at 06:30 Diltiazem HCl (Cardizem) 60 mg Q8 GTB Last administered on 03/29/17 08:48; Admin Dose 60 MG; Start 03/19/17 at 14:00 Metoprolol Tartrate (Lopressor) 5 mg Q6 PRN IV TACHYCARDIA Last administered on 03/23/17 18:02; Admin Dose 5 MG; Start 03/22/17 at 10:30 Morphine Sulfate (morphine) 1 mg Q4H PRN IV severe pain Last administered on 14:30; Admin Dose 1 MG; Start 03/22/17 at 12:00 Ondansetron HCl (Zofran Inj) 4 mg Q4H PRN IV NAUSEA AND/OR VOMITING Last administered on 03/25/17 01:28; Admin Dose 4 MG; Start 03/23/17 at 05:00 Polyethylene Glycol (Miralax) 17 gm DAILY GTB Last administered on 03/29/17 08 :47; Admin Dose 17 GM; Start 03/23/17 at 12:00 Multivitamins (Thera-Plus) 5 ml DAILY GTB Last administered on 03/29/17 08:47 ; Admin Dose 5 ML; Start 03/25/17 at 09:00 Metoclopramide HCl (Reglan) 10 mg Q6 IV Last administered on 03/27/17 17:31; Admin Dose 10 MG; Start 03/27/17 at 00:00 Collagenase (Santyl) 1 applic DAILY TOP Last administered on 03/29/17 12:48; Admin Dose 1 APPLIC; Start 03/27/17 at 12:00 Collagenase (Santyl) 1 applic PRN PRN TOP WOUND CARE; Start 03/27/17 at 10:30 Insulin Glargine (Lantus) 30 unit DAILY@20 SC Last administered on 03/28/17 21 :07; Admin Dose 30 UNIT; Start 03/27/17 at 20:00 Insulin Aspart (Novolog Insulin Pen) NOVOLOG *MILD* ALGORI... Q4 SC Last administered on 03/29/17 17:59; Admin Dose 3 UNIT; Start 03/27/17 at 17:00 Levetiracetam (Keppra Liquid) 500 mg BID GTB Last administered on 03/29/17 08: 47; Admin Dose 500 MG; Start 03/27/17 at 21:00 Magnesium Chloride (Mag 64) 64 mg BID PO Last administered on 03/29/17 08:48; Admin Dose 64 MG; Start 03/27/17 at 21:30 Lansoprazole (Prevacid) 30 mg BID@06,18 GTB Last administered on 03/29/17 17: 56; Admin Dose 30 MG; Start 03/28/17 at 18:00 Magnesium Oxide (Mag-Ox 400) 400 mg DAILY NGT Last administered on 03/29/17 15 :28; Admin Dose 400 MG; Start 03/29/17 at 14:00; Stop 04/02/17 at 09:01 DENA SALGUERO Mar 29, 2017 18:30
[2017-03-29] MEDS: ATORVASTATIN 40 MG TAB GTB SCH (20:55)
[2017-03-29] MEDS: INSULIN GLARGINE [LANtus] 3 ML PEN SC SCH (20:58)
[2017-03-29 21:21] VITALS: BP 144/61; RESP 16
[2017-03-30] MEDS: METOCLOPRAMIDE 10 MG INJ IV SCH ×6 (01:05→23:50)
[2017-03-30] MEDS: INSULIN ASPART [NOVOLOG] 3 ML PEN SC SCH ×6 (01:08→20:21)
[2017-03-30 04:19] VITALS: PULSE 95
[2017-03-30] MEDS: FUROSEMIDE 20 MG TAB PO SCH ×2 (05:20→18:46)
[2017-03-30] MEDS: LANSOPRAZOLE 30 MG CAP GTB SCH ×2 (05:21→17:18)
[2017-03-30] MEDS: DILTIAZEM 60 MG TAB GTB SCH ×3 (05:21→22:21)
[2017-03-30 05:57] LABS: ADD SCAN DIFF NO
[2017-03-30 06:12] LABS: BASOPHIL # 0.1 10^3/ul (0.0-0.1); BASOPHILS % 0.7 % (0.0-2.0); EOSINOPHILS # 0.3 10^3/ul (0.0-0.5); EOSINOPHILS % 4.2 % (0.0-7.0); HEMATOCRIT 33.7 % (37.0-47.0); HEMOGLOBIN 10.6 g/dl (12.0-16.0); LYMPHOCYTES # 2.4 10^3/ul (0.8-2.9); LYMPHOCYTES % 32.6 % (15.0-51.0); MEAN CORPUSCULAR HEMOGLOBIN 29.9 pg (29.0-33.0); MEAN CORPUSCULAR HGB CONC 31.5 g/dl (32.0-37.0); MEAN CORPUSCULAR VOLUME 95.2 fl (82.0-101.0); MEAN PLATELET VOLUME 10.3 fl (7.4-10.4); MONOCYTE # 0.5 10^3/ul (0.3-0.9); MONOCYTES % 6.1 % (0.0-11.0); NEUTROPHIL # 3.9 10^3/ul (1.6-7.5); NEUTROPHILS % 52.2 % (39.0-77.0); PLATELET COUNT 879 10^3/UL (140-415); RED BLOOD COUNT 3.54 10^6/ul (4.20-5.40); RED CELL DISTRIBUTION WIDTH 15.1 % (11.5-14.5); WHITE BLOOD COUNT 7.4 10^3/ul (4.8-10.8)
[2017-03-30 06:39] LABS: CALCIUM 9.8 mg/dl (8.4-10.2); CREATININE 0.53 mg/dl (0.44-1.00); POTASSIUM 4.4 mmol/L (3.5-5.1)
[2017-03-30 08:00] VITALS: BP 117/69; RESP 20
[2017-03-30] MEDS: MULTIVITAMINS 5 ML CUP GTB SCH (10:06)
[2017-03-30] MEDS: ENOXAPARIN 40 MG/0.4 ML SYG SC SCH (10:08)
[2017-03-30] MEDS: ZINC SULFATE 220 MG CAP GTB SCH (10:09)
[2017-03-30] MEDS: MAGNESIUM CHLORIDE (SR) 64 MG TAB PO SCH ×3 (10:09→20:57)
[2017-03-30] MEDS: MAGNESIUM OXIDE 400 MG TAB NGT SCH (10:10)
[2017-03-30] MEDS: traMADol 50 MG TAB GTB SCH ×2 (10:10→20:23)
[2017-03-30] MEDS: POLYETHYLENE GLYCOL 17 GM PACKET GTB SCH (10:10)
[2017-03-30] MEDS: LEVETIRACETAM (100 MG/ML) 5ML CUP GTB SCH ×2 (10:10→20:21)
[2017-03-30] MEDS: COLLAGENASE 30 GM TUBE TOP SCH (10:11)
--- NOTE | 2017-03-30 12:38 | PN ---
Date/Time of Note Date/Time of Note DATE: 03/30/17 TIME: 12:38 Assessment/Plan VTE Prophylaxis VTE Prophylaxis Intervention: other Lines/Catheters [facility] Type (from [facility] Peripheral IV Urinary Cath still in place: Yes Reason Cath still needed: skin wounds contaminated by urine Assessment/Plan Chief Complaint/Hosp Course - Sepsis with leukocytosis tachycardia, resolving. - Possible HCAP vs aspiration, continue abx per ID. Dr. Pitt is following in infection disease consultation. is following in pulmonology consultation. Continue bronchodilators and oxygen supplementation. - Sinus tachycardia, Dr. Candelario is following and cardiology consultation, continue telemetry monitoring. - Left hand swelling. Continue broad-spectrum antibiotics for possible cellulitis. - Seizure disorder. Continue Keppra. - Dysphagia with percutaneous endoscopic gastrostomy. Continue G-tube feeding, aspiration precautions. - Diabetes mellitus type 2. Continue Lantus and NovoLog per sliding scale with every 4 hours Accu-Chek. - Dyslipidemia. Continue statins. - Hypertension. The patient is currently normotensive. - Schizophrenia and bipolar disorder. Problems: Subjective 24 Hr Interval Summary Free Text/Dictation Patient has no complaints Exam/Review of Systems Vital Signs Vitals Vital Signs Date Time Temp Pulse Resp B/P Pulse Ox O2 Delivery O2 Flow Rate FiO2 03/30/17 08:00 97.5 100 20 117/69 63 03/28/17 12:15 Nasal Cannula 3.0 Intake and Output 03/29/17 03/29/17 03/30/17 14:59 22:59 06:59 Intake Total 860 ml 960 ml Output Total 575 ml 550 ml Balance 285 ml 410 ml Exam Constitutional: well developed Head: atraumatic, normocephalic Neck: supple Cardiovascular: regular rate and rhythm Gastrointestinal: non-tender, soft Extremities: normal pulses Results Result Diagram: 03/30/17 0458 03/30/17 0458 Results 24 hrs Laboratory Tests Test 03/29/17 12:50 03/29/17 17:58 03/29/17 20:42 03/30/17 01:04 Bedside Glucose 226 H 228 H 267 H 219 Test 03/30/17 04:58 03/30/17 09:56 03/30/17 12:16 White Blood Count 7.4 Red Blood Count 3.54 L Hemoglobin 10.6 L Hematocrit 33.7 L Mean Corpuscular Volume 95.2 Mean Corpuscular Hemoglobin 29.9 Mean Corpuscular Hemoglobin Concent 31.5 L Red Cell Distribution Width 15.1 H Platelet Count 879 #H Mean Platelet Volume 10.3 Neutrophils % 52.2 Lymphocytes % 32.6 Monocytes % 6.1 Eosinophils % 4.2 Basophils % 0.7 Nucleated Red Blood Cells % 0.0 Neutrophils # 3.9 Lymphocytes # 2.4 Monocytes # 0.5 Eosinophils # 0.3 Basophils # 0.1 Nucleated Red Blood Cells # 0.0 Sodium Level 133 L Potassium Level 4.4 Chloride Level 94 L Carbon Dioxide Level 29 Anion Gap 14 Blood Urea Nitrogen 25 H Creatinine 0.53 Glucose Level 187 Bedside Glucose 170 167 189 Calcium Level 9.8 Medications Medications Current Medications Atorvastatin Calcium (Lipitor) 40 mg HS GTB Last administered on 03/29/17 20: 55; Admin Dose 40 MG; Start 03/19/17 at 21:00 Bisacodyl (Dulcolax Supp) 10 mg DAILY PRN [place] PRN; Start 03/19/17 at 05:00 Enoxaparin Sodium (Lovenox) 40 mg DAILY SC Last administered on 03/30/17 10:08 ; Admin Dose 40 MG; Start 03/19/17 at 09:00 Tramadol HCl (Ultram) 50 mg BID GTB Last administered on 03/30/17 10:10; Admin Dose 50 MG; Start 03/19/17 at 09:00 Zinc Sulfate (Zinc Sulfate) 220 mg DAILY GTB Last administered on 03/30/17 10: 09; Admin Dose 220 MG; Start 03/19/17 at 09:00 Acetaminophen (Tylenol Liquid) 650 mg Q4H PRN GTB MILD PAIN LEVEL 1-3 Last administered on 03/23/17 22:30; Admin Dose 650 MG; Start 03/19/17 at 06:00 Acetaminophen (Tylenol Liquid) 1,000 mg Q4H PRN PO PAIN LEVEL 4-6/10 Last administered on 03/22/17 03:30; Admin Dose 1,000 MG; Start 03/19/17 at 06:00 Miscellaneous Information 1 ea NOTE XX ; Start 03/19/17 at 06:00 Glucose (Glutose) 15 gm Q15M PRN PO DECREASED GLUCOSE; Start 03/19/17 at 06:00 Glucose (Glutose) 22.5 gm Q15M PRN PO DECREASED GLUCOSE; Start 03/19/17 at 06: 00 Dextrose (D50w Syringe) 25 ml Q15M PRN IV DECREASED GLUCOSE; Start 03/19/17 at 06:00 Dextrose (D50w Syringe) 50 ml Q15M PRN IV DECREASED GLUCOSE; Start 03/19/17 at 06:00 Glucagon (Glucagen) 1 mg Q15M PRN IM DECREASED GLUCOSE; Start 03/19/17 at 06:00 Glucose (Glutose) 15 gm Q15M PRN BUCCAL DECREASED GLUCOSE; Start 03/19/17 at 06 :00 Sodium Biphosphate/ Sodium Phosphate (Fleet Enema) 133 ml DAILY PRN [place] CONSTIPATION; Start 03/19/17 at 06:30 Diltiazem HCl (Cardizem) 60 mg Q8 GTB Last administered on 03/30/17 05:21; Admin Dose 60 MG; Start 03/19/17 at 14:00 Metoprolol Tartrate (Lopressor) 5 mg Q6 PRN IV TACHYCARDIA Last administered on 03/23/17 18:02; Admin Dose 5 MG; Start 03/22/17 at 10:30 Morphine Sulfate (morphine) 1 mg Q4H PRN IV severe pain Last administered on 14:30; Admin Dose 1 MG; Start 03/22/17 at 12:00 Ondansetron HCl (Zofran Inj) 4 mg Q4H PRN IV NAUSEA AND/OR VOMITING Last administered on 03/25/17 01:28; Admin Dose 4 MG; Start 03/23/17 at 05:00 Polyethylene Glycol (Miralax) 17 gm DAILY GTB Last administered on 03/30/17 10 :10; Admin Dose 17 GM; Start 03/23/17 at 12:00 Multivitamins (Thera-Plus) 5 ml DAILY GTB Last administered on 03/30/17 10:06 ; Admin Dose 5 ML; Start 03/25/17 at 09:00 Metoclopramide HCl (Reglan) 10 mg Q6 IV Last administered on 03/27/17 17:31; Admin Dose 10 MG; Start 03/27/17 at 00:00 Collagenase (Santyl) 1 applic DAILY TOP Last administered on 03/30/17 10:11; Admin Dose 1 APPLIC; Start 03/27/17 at 12:00 Collagenase (Santyl) 1 applic PRN PRN TOP WOUND CARE; Start 03/27/17 at 10:30 Insulin Glargine (Lantus) 30 unit DAILY@20 SC Last administered on 03/29/17 20 :58; Admin Dose 30 UNIT; Start 03/27/17 at 20:00 Insulin Aspart (Novolog Insulin Pen) NOVOLOG *MILD* ALGORI... Q4 SC Last administered on 03/30/17 12:22; Admin Dose 2 UNIT; Start 03/27/17 at 17:00 Levetiracetam (Keppra Liquid) 500 mg BID GTB Last administered on 03/30/17 10: 10; Admin Dose 500 MG; Start 03/27/17 at 21:00 Magnesium Chloride (Mag 64) 64 mg BID PO Last administered on 03/30/17 10:09; Admin Dose 64 MG; Start 03/27/17 at 21:30 Lansoprazole (Prevacid) 30 mg BID@06,18 GTB Last administered on 03/30/17 05: 21; Admin Dose 30 MG; Start 03/28/17 at 18:00 Magnesium Oxide (Mag-Ox 400) 400 mg DAILY NGT Last administered on 03/30/17 10 :10; Admin Dose 400 MG; Start 03/29/17 at 14:00; Stop 04/02/17 at 09:01 VIVIENNE MONTILLA Mar 30, 2017 12:38
--- NOTE | 2017-03-30 16:54 | CONS ---
Date/Time of Note Date/Time of Note DATE: 03/30/17 TIME: 16:54 Assessment/Plan Assessment/Plan Additional Assessment/Plan IMPRESSION: 1. nausea with vomiting: KUB negative resolved 2. Possible sepsis with leukocytosis tachycardia. 3. Possible HCAP 4. Sinus tachycardia, most likely secondary to dehydration. 5. Left arm/hand swelling. 6. Seizure disorder. 7. Dysphagia with percutaneous endoscopic gastrostomy. 8. Iron deficiency anemia 9 abnormal liver function test 10. Diabetic gastroparesis RECOMMENDATION 1. change pepcid to protonix iv bid in case n/v due to PUD, gastritis, esophagitis 2. change bowel regiman to miralax daily 3. add reglan 10 mg iv bid to see if it will help with the nausea 5. continue to hold tube feed for now (as she is still nauseous and awaiting KUB from today) but ok for meds 7. stop GT iron as it can be constipating. will recheck iron panel and replete by IV if low 8. stop vitamin C as we replete iron if low by IV and to minimize GT load 9. continue D5 LR with 20 mEQ KCL so pt don't need GT potassium to minimize constipation and nausea (oral KCL can cause nausea) 10. Ultrasound of the liver, acute hepatitis panel hepatitis panel negative. Ultrasound of the abdomen not done. 11. Will increase the dose of Reglan #12 patient refused sonogram of the liver Consultation Date/Type/Reason Admit Date/Time Mar 19, 2017 at 01:44 Initial Consult Date 03/22/17 Type of Consultation: pulmonary 24 HR Interval Summary Constitutional: improved, no complaints Exam/Review of Systems Vital Signs Vitals Vital Signs Date Time Temp Pulse Resp B/P Pulse Ox O2 Delivery O2 Flow Rate FiO2 03/30/17 08:00 97.5 100 20 117/69 63 03/28/17 12:15 Nasal Cannula 3.0 Intake and Output 03/29/17 03/29/17 03/30/17 15:00 23:00 07:00 Intake Total 860 ml 960 ml Output Total 575 ml 550 ml Balance 285 ml 410 ml Exam Constitutional: alert, oriented, well developed Psych: nl mood/affect, no complaints Head: atraumatic, normocephalic Eyes: EOMI, PERRL, nl conjunctiva, nl lids, nl sclera ENMT: nl external ears & nose, nl lips & teeth, nl nasal mucosa & septum Neck: non-tender, supple Respiratory: clear to auscultation, normal air movement Cardiovascular: nl pulses, regular rate and rhythm Gastrointestinal: nl liver, spleen, non-tender, soft Musculoskeletal: nl extremities to inspection, nl gait and stance Extremities: normal pulses Neurological: TOURIST AGENT II-XII intact, nl mental status, nl speech, nl strength Skin: nl turgor, No rash or lesions Lymph: nl lymph nodes Results Result Diagram: 03/30/17 0458 03/30/17 0458 Results 24 hrs Laboratory Tests Test 03/29/17 17:58 03/29/17 20:42 03/30/17 01:04 03/30/17 04:58 Bedside Glucose 228 H 267 H 219 170 White Blood Count 7.4 Red Blood Count 3.54 L Hemoglobin 10.6 L Hematocrit 33.7 L Mean Corpuscular Volume 95.2 Mean Corpuscular Hemoglobin 29.9 Mean Corpuscular Hemoglobin Concent 31.5 L Red Cell Distribution Width 15.1 H Platelet Count 879 #H Mean Platelet Volume 10.3 Neutrophils % 52.2 Lymphocytes % 32.6 Monocytes % 6.1 Eosinophils % 4.2 Basophils % 0.7 Nucleated Red Blood Cells % 0.0 Neutrophils # 3.9 Lymphocytes # 2.4 Monocytes # 0.5 Eosinophils # 0.3 Basophils # 0.1 Nucleated Red Blood Cells # 0.0 Sodium Level 133 L Potassium Level 4.4 Chloride Level 94 L Carbon Dioxide Level 29 Anion Gap 14 Blood Urea Nitrogen 25 H Creatinine 0.53 Glucose Level 187 Calcium Level 9.8 Test 03/30/17 09:56 03/30/17 12:16 Bedside Glucose 167 189 Medications Medications Current Medications Atorvastatin Calcium (Lipitor) 40 mg HS GTB Last administered on 03/29/17 20: 55; Admin Dose 40 MG; Start 03/19/17 at 21:00 Bisacodyl (Dulcolax Supp) 10 mg DAILY PRN [place] PRN; Start 03/19/17 at 05:00 Enoxaparin Sodium (Lovenox) 40 mg DAILY SC Last administered on 03/30/17 10:08 ; Admin Dose 40 MG; Start 03/19/17 at 09:00 Tramadol HCl (Ultram) 50 mg BID GTB Last administered on 03/30/17 10:10; Admin Dose 50 MG; Start 03/19/17 at 09:00 Zinc Sulfate (Zinc Sulfate) 220 mg DAILY GTB Last administered on 03/30/17 10: 09; Admin Dose 220 MG; Start 03/19/17 at 09:00 Acetaminophen (Tylenol Liquid) 650 mg Q4H PRN GTB MILD PAIN LEVEL 1-3 Last administered on 03/23/17 22:30; Admin Dose 650 MG; Start 03/19/17 at 06:00 Acetaminophen (Tylenol Liquid) 1,000 mg Q4H PRN PO PAIN LEVEL 4-6/10 Last administered on 03/22/17 03:30; Admin Dose 1,000 MG; Start 03/19/17 at 06:00 Miscellaneous Information 1 ea NOTE XX ; Start 03/19/17 at 06:00 Glucose (Glutose) 15 gm Q15M PRN PO DECREASED GLUCOSE; Start 03/19/17 at 06:00 Glucose (Glutose) 22.5 gm Q15M PRN PO DECREASED GLUCOSE; Start 03/19/17 at 06: 00 Dextrose (D50w Syringe) 25 ml Q15M PRN IV DECREASED GLUCOSE; Start 03/19/17 at 06:00 Dextrose (D50w Syringe) 50 ml Q15M PRN IV DECREASED GLUCOSE; Start 03/19/17 at 06:00 Glucagon (Glucagen) 1 mg Q15M PRN IM DECREASED GLUCOSE; Start 03/19/17 at 06:00 Glucose (Glutose) 15 gm Q15M PRN BUCCAL DECREASED GLUCOSE; Start 03/19/17 at 06 :00 Sodium Biphosphate/ Sodium Phosphate (Fleet Enema) 133 ml DAILY PRN [place] CONSTIPATION; Start 03/19/17 at 06:30 Diltiazem HCl (Cardizem) 60 mg Q8 GTB Last administered on 03/30/17 14:19; Admin Dose 60 MG; Start 03/19/17 at 14:00 Metoprolol Tartrate (Lopressor) 5 mg Q6 PRN IV TACHYCARDIA Last administered on 03/23/17 18:02; Admin Dose 5 MG; Start 03/22/17 at 10:30 Morphine Sulfate (morphine) 1 mg Q4H PRN IV severe pain Last administered on 14:30; Admin Dose 1 MG; Start 03/22/17 at 12:00 Ondansetron HCl (Zofran Inj) 4 mg Q4H PRN IV NAUSEA AND/OR VOMITING Last administered on 03/25/17 01:28; Admin Dose 4 MG; Start 03/23/17 at 05:00 Polyethylene Glycol (Miralax) 17 gm DAILY GTB Last administered on 03/30/17 10 :10; Admin Dose 17 GM; Start 03/23/17 at 12:00 Multivitamins (Thera-Plus) 5 ml DAILY GTB Last administered on 03/30/17 10:06 ; Admin Dose 5 ML; Start 03/25/17 at 09:00 Metoclopramide HCl (Reglan) 10 mg Q6 IV Last administered on 03/27/17 17:31; Admin Dose 10 MG; Start 03/27/17 at 00:00 Collagenase (Santyl) 1 applic DAILY TOP Last administered on 03/30/17 10:11; Admin Dose 1 APPLIC; Start 03/27/17 at 12:00 Collagenase (Santyl) 1 applic PRN PRN TOP WOUND CARE; Start 03/27/17 at 10:30 Insulin Glargine (Lantus) 30 unit DAILY@20 SC Last administered on 03/29/17 20 :58; Admin Dose 30 UNIT; Start 03/27/17 at 20:00 Insulin Aspart (Novolog Insulin Pen) NOVOLOG *MILD* ALGORI... Q4 SC Last administered on 03/30/17 12:22; Admin Dose 2 UNIT; Start 03/27/17 at 17:00 Levetiracetam (Keppra Liquid) 500 mg BID GTB Last administered on 03/30/17 10: 10; Admin Dose 500 MG; Start 03/27/17 at 21:00 Magnesium Chloride (Mag 64) 64 mg BID PO Last administered on 03/30/17 10:09; Admin Dose 64 MG; Start 03/27/17 at 21:30 Lansoprazole (Prevacid) 30 mg BID@06,18 GTB Last administered on 03/30/17 05: 21; Admin Dose 30 MG; Start 03/28/17 at 18:00 Magnesium Oxide (Mag-Ox 400) 400 mg DAILY NGT Last administered on 03/30/17 10 :10; Admin Dose 400 MG; Start 03/29/17 at 14:00; Stop 04/02/17 at 09:01 KAYLEE FAN MD Mar 30, 2017 16:54
[2017-03-30 20:18] VITALS: BP 126/58; RESP 18
[2017-03-30] MEDS: INSULIN GLARGINE [LANtus] 3 ML PEN SC SCH (20:20)
[2017-03-30] MEDS: ATORVASTATIN 40 MG TAB GTB SCH (20:22)
[2017-03-31] MEDS: INSULIN ASPART [NOVOLOG] 3 ML PEN SC SCH ×6 (01:09→20:28)
[2017-03-31] MEDS: LANSOPRAZOLE 30 MG CAP GTB SCH ×2 (05:43→17:47)
[2017-03-31] MEDS: FUROSEMIDE 20 MG TAB PO SCH ×2 (05:44→17:47)
[2017-03-31] MEDS: DILTIAZEM 60 MG TAB GTB SCH ×3 (05:44→22:45)
[2017-03-31] MEDS: METOCLOPRAMIDE 10 MG INJ IV SCH ×2 (05:44→12:00)
[2017-03-31 08:00] VITALS: BP 123/60; RESP 18
[2017-03-31] MEDS: MULTIVITAMINS 5 ML CUP GTB SCH (09:00)
[2017-03-31] MEDS: POLYETHYLENE GLYCOL 17 GM PACKET GTB SCH (09:39)
[2017-03-31] MEDS: MAGNESIUM OXIDE 400 MG TAB NGT SCH (09:39)
[2017-03-31] MEDS: MAGNESIUM CHLORIDE (SR) 64 MG TAB PO SCH (09:39)
[2017-03-31] MEDS: ZINC SULFATE 220 MG CAP GTB SCH (09:39)
[2017-03-31] MEDS: LEVETIRACETAM (100 MG/ML) 5ML CUP GTB SCH ×2 (09:39→20:26)
[2017-03-31] MEDS: traMADol 50 MG TAB GTB SCH ×2 (09:40→20:26)
[2017-03-31] MEDS: ENOXAPARIN 40 MG/0.4 ML SYG SC SCH (09:41)
[2017-03-31] MEDS: COLLAGENASE 30 GM TUBE TOP SCH (09:45)
--- NOTE | 2017-03-31 12:31 | PN ---
Date/Time of Note Date/Time of Note DATE: 03/31/17 TIME: 12:30 Assessment/Plan VTE Prophylaxis VTE Prophylaxis Intervention: other Lines/Catheters IV Catheter Type (from Nrs): Peripheral IV Urinary Cath still in place: Yes Reason Cath still needed: skin wounds contaminated by urine Assessment/Plan Chief Complaint/Hosp Course - Sepsis with leukocytosis tachycardia, resolving. - Possible HCAP vs aspiration, continue abx per ID. Dr. Pitt is following in infection disease consultation. is following in pulmonology consultation. Continue bronchodilators and oxygen supplementation. - Sinus tachycardia, Dr. Candelario is following and cardiology consultation, continue telemetry monitoring. - Left hand swelling. Continue broad-spectrum antibiotics for possible cellulitis. - Seizure disorder. Continue Keppra. - Dysphagia with percutaneous endoscopic gastrostomy. Continue G-tube feeding, aspiration precautions. - Diabetes mellitus type 2. Continue Lantus and NovoLog per sliding scale with every 4 hours Accu-Chek. - Dyslipidemia. Continue statins. - Hypertension. The patient is currently normotensive. - Schizophrenia and bipolar disorder. Problems: Subjective 24 Hr Interval Summary Free Text/Dictation Patient has no complaints Exam/Review of Systems Vital Signs Vitals Vital Signs Date Time Temp Pulse Resp B/P Pulse Ox O2 Delivery O2 Flow Rate FiO2 03/31/17 08:00 97.2 100 18 123/60 95 03/28/17 12:15 Nasal Cannula 3.0 Intake and Output 03/30/17 03/30/17 03/31/17 15:00 23:00 07:00 Intake Total 1600 ml 960 ml Output Total 600 ml 400 ml Balance 1000 ml 560 ml Exam Constitutional: well developed Head: atraumatic, normocephalic Neck: supple Respiratory: diminished breath sounds Cardiovascular: regular rate and rhythm Gastrointestinal: non-tender, soft Extremities: normal pulses Results Result Diagram: 03/30/17 0458 03/30/17 0458 Results 24 hrs Laboratory Tests Test 03/30/17 17:11 03/30/17 20:17 03/31/17 01:07 03/31/17 05:40 Bedside Glucose 226 H 199 168 177 Test 03/31/17 09:37 03/31/17 12:28 Bedside Glucose 199 246 H Medications Medications Current Medications Atorvastatin Calcium (Lipitor) 40 mg HS GTB Last administered on 03/30/17t 20: 22; Admin Dose 40 MG; Start 03/19/17 at 21:00 Bisacodyl (Dulcolax Supp) 10 mg DAILY PRN [place] PRN; Start 03/19/17 at 05:00 Enoxaparin Sodium (Lovenox) 40 mg DAILY SC Last administered on 03/31/17 09:41 ; Admin Dose 40 MG; Start 03/19/17 at 09:00 Tramadol HCl (Ultram) 50 mg BID GTB Last administered on 03/31/17 09:40; Admin Dose 50 MG; Start 03/19/17 at 09:00 Zinc Sulfate (Zinc Sulfate) 220 mg DAILY GTB Last administered on 03/31/17 09: 39; Admin Dose 220 MG; Start 03/19/17 at 09:00 Acetaminophen (Tylenol Liquid) 650 mg Q4H PRN GTB MILD PAIN LEVEL 1-3 Last administered on 03/23/17 22:30; Admin Dose 650 MG; Start 03/19/17 at 06:00 Acetaminophen (Tylenol Liquid) 1,000 mg Q4H PRN PO PAIN LEVEL 4-6/10 Last administered on 03/22/17 03:30; Admin Dose 1,000 MG; Start 03/19/17 at 06:00 Miscellaneous Information 1 ea NOTE XX ; Start 03/19/17 at 06:00 Glucose (Glutose) 15 gm Q15M PRN PO DECREASED GLUCOSE; Start 03/19/17 at 06:00 Glucose (Glutose) 22.5 gm Q15M PRN PO DECREASED GLUCOSE; Start 03/19/17 at 06: 00 Dextrose (D50w Syringe) 25 ml Q15M PRN IV DECREASED GLUCOSE; Start 03/19/17 at 06:00 Dextrose (D50w Syringe) 50 ml Q15M PRN IV DECREASED GLUCOSE; Start 03/19/17 at 06:00 Glucagon (Glucagen) 1 mg Q15M PRN IM DECREASED GLUCOSE; Start 03/19/17 at 06:00 Glucose (Glutose) 15 gm Q15M PRN BUCCAL DECREASED GLUCOSE; Start 03/19/17 at 06 :00 Sodium Biphosphate/ Sodium Phosphate (Fleet Enema) 133 ml DAILY PRN [place] CONSTIPATION; Start 03/19/17 at 06:30 Diltiazem HCl (Cardizem) 60 mg Q8 GTB Last administered on 03/31/17 05:44; Admin Dose 60 MG; Start 03/19/17 at 14:00 Metoprolol Tartrate (Lopressor) 5 mg Q6 PRN IV TACHYCARDIA Last administered on 03/23/17 18:02; Admin Dose 5 MG; Start 03/22/17 at 10:30 Morphine Sulfate (morphine) 1 mg Q4H PRN IV severe pain Last administered on 14:30; Admin Dose 1 MG; Start 03/22/17 at 12:00 Ondansetron HCl (Zofran Inj) 4 mg Q4H PRN IV NAUSEA AND/OR VOMITING Last administered on 03/25/17 01:28; Admin Dose 4 MG; Start 03/23/17 at 05:00 Polyethylene Glycol (Miralax) 17 gm DAILY GTB Last administered on 03/31/17 09 :39; Admin Dose 17 GM; Start 03/23/17 at 12:00 Multivitamins (Thera-Plus) 5 ml DAILY GTB Last administered on 03/30/17 10:06 ; Admin Dose 5 ML; Start 03/25/17 at 09:00 Metoclopramide HCl (Reglan) 10 mg Q6 IV Last administered on 03/27/17 17:31; Admin Dose 10 MG; Start 03/27/17 at 00:00 Collagenase (Santyl) 1 applic DAILY TOP Last administered on 03/31/17 09:45; Admin Dose 1 APPLIC; Start 03/27/17 at 12:00 Collagenase (Santyl) 1 applic PRN PRN TOP WOUND CARE; Start 03/27/17 at 10:30 Insulin Glargine (Lantus) 30 unit DAILY@20 SC Last administered on 03/30/17 20 :20; Admin Dose 30 UNIT; Start 03/27/17 at 20:00 Insulin Aspart (Novolog Insulin Pen) NOVOLOG *MILD* ALGORI... Q4 SC Last administered on 03/31/17 09:42; Admin Dose 2 UNIT; Start 03/27/17 at 17:00 Levetiracetam (Keppra Liquid) 500 mg BID GTB Last administered on 03/31/17 09: 39; Admin Dose 500 MG; Start 03/27/17 at 21:00 Magnesium Chloride (Mag 64) 64 mg BID PO Last administered on 03/31/17 09:39; Admin Dose 64 MG; Start 03/27/17 at 21:30 Lansoprazole (Prevacid) 30 mg BID@06,18 GTB Last administered on 03/31/17 05: 43; Admin Dose 30 MG; Start 03/28/17 at 18:00 Magnesium Oxide (Mag-Ox 400) 400 mg DAILY NGT Last administered on 03/31/17 09 :39; Admin Dose 400 MG; Start 03/29/17 at 14:00; Stop 04/02/17 at 09:01 VIVIENNE MONTILLA Mar 31, 2017 12:31
--- NOTE | 2017-03-31 12:39 | CONS ---
Date/Time of Note Date/Time of Note DATE: 03/31/17 TIME: 12:38 Assessment/Plan Assessment/Plan Additional Assessment/Plan IMPRESSION: 1. nausea with vomiting: KUB negative resolved 2. Possible sepsis with leukocytosis tachycardia. 3. Possible HCAP 4. Sinus tachycardia, most likely secondary to dehydration. 5. Left arm/hand swelling. 6. Seizure disorder. 7. Dysphagia with percutaneous endoscopic gastrostomy. 8. Iron deficiency anemia 9 abnormal liver function test 10. Diabetic gastroparesis RECOMMENDATION 1. change pepcid to protonix iv bid in case n/v due to PUD, gastritis, esophagitis 2. change bowel regiman to miralax daily 3. add reglan 10 mg iv bid to see if it will help with the nausea 5. continue to hold tube feed for now (as she is still nauseous and awaiting KUB from today) but ok for meds 7. stop GT iron as it can be constipating. will recheck iron panel and replete by IV if low 8. stop vitamin C as we replete iron if low by IV and to minimize GT load 9. continue D5 LR with 20 mEQ KCL so pt don't need GT potassium to minimize constipation and nausea (oral KCL can cause nausea) 10. Ultrasound of the liver, acute hepatitis panel hepatitis panel negative. Ultrasound of the abdomen not done. 11. Will change Reglan from IV to G-tube Consultation Date/Type/Reason Admit Date/Time Mar 19, 2017 at 01:44 Initial Consult Date 03/22/17 Type of Consultation: pulmonary 24 HR Interval Summary Constitutional: no complaints Exam/Review of Systems Vital Signs Vitals Vital Signs Date Time Temp Pulse Resp B/P Pulse Ox O2 Delivery O2 Flow Rate FiO2 03/31/17 08:00 97.2 100 18 123/60 95 03/28/17 12:15 Nasal Cannula 3.0 Intake and Output 03/30/17 03/30/17 03/31/17 15:00 23:00 07:00 Intake Total 1600 ml 960 ml Output Total 600 ml 400 ml Balance 1000 ml 560 ml Exam Constitutional: alert, oriented, well developed Psych: nl mood/affect, no complaints Head: atraumatic, normocephalic Eyes: EOMI, PERRL, nl conjunctiva, nl lids, nl sclera ENMT: nl external ears & nose, nl lips & teeth, nl nasal mucosa & septum Neck: non-tender, supple Respiratory: clear to auscultation, normal air movement Cardiovascular: nl pulses, regular rate and rhythm Gastrointestinal: nl liver, spleen, non-tender, soft Musculoskeletal: nl extremities to inspection, nl gait and stance Extremities: normal pulses Neurological: RUG REPAIRER II-XII intact, nl mental status, nl speech, nl strength Skin: nl turgor, No rash or lesions Lymph: nl lymph nodes Results Result Diagram: 03/30/178 03/30/17 045 Results 24 hrs Laboratory Tests Test 03/30/17 17:11 03/30/17 20:17 03/31/17 01:07 03/31/17 05:40 Bedside Glucose 226 H 199 168 177 Test 03/31/17 09:37 03/31/17 12:28 Bedside Glucose 199 246 H Medications Medications Current Medications Atorvastatin Calcium (Lipitor) 40 mg HS GTB Last administered on 03/30/17 20: 22; Admin Dose 40 MG; Start 03/19/17 at 21:00 Bisacodyl (Dulcolax Supp) 10 mg DAILY PRN [place] PRN; Start 03/19/17 at 05:00 Enoxaparin Sodium (Lovenox) 40 mg DAILY SC Last administered on 03/31/17 09:41 ; Admin Dose 40 MG; Start 03/19/17 at 09:00 Tramadol HCl (Ultram) 50 mg BID GTB Last administered on 03/31/17 09:40; Admin Dose 50 MG; Start 03/19/17 at 09:00 Zinc Sulfate (Zinc Sulfate) 220 mg DAILY GTB Last administered on 03/31/17 09: 39; Admin Dose 220 MG; Start 03/19/17 at 09:00 Acetaminophen (Tylenol Liquid) 650 mg Q4H PRN GTB MILD PAIN LEVEL 1-3 Last administered on 03/23/17 22:30; Admin Dose 650 MG; Start 03/19/17 at 06:00 Acetaminophen (Tylenol Liquid) 1,000 mg Q4H PRN PO PAIN LEVEL 4-6/10 Last administered on 03/22/17 03:30; Admin Dose 1,000 MG; Start 03/19/17 at 06:00 Miscellaneous Information 1 ea NOTE XX ; Start 03/19/17 at 06:00 Glucose (Glutose) 15 gm Q15M PRN PO DECREASED GLUCOSE; Start 03/19/17 at 06:00 Glucose (Glutose) 22.5 gm Q15M PRN PO DECREASED GLUCOSE; Start 03/19/17 at 06: 00 Dextrose (D50w Syringe) 25 ml Q15M PRN IV DECREASED GLUCOSE; Start 03/19/17 at 06:00 Dextrose (D50w Syringe) 50 ml Q15M PRN IV DECREASED GLUCOSE; Start 03/19/17 at 06:00 Glucagon (Glucagen) 1 mg Q15M PRN IM DECREASED GLUCOSE; Start 03/19/17 at 06:00 Glucose (Glutose) 15 gm Q15M PRN BUCCAL DECREASED GLUCOSE; Start 03/19/17 at 06 :00 Sodium Biphosphate/ Sodium Phosphate (Fleet Enema) 133 ml DAILY PRN [place] CONSTIPATION; Start 03/19/17 at 06:30 Diltiazem HCl (Cardizem) 60 mg Q8 GTB Last administered on 03/31/17 05:44; Admin Dose 60 MG; Start 03/19/17 at 14:00 Metoprolol Tartrate (Lopressor) 5 mg Q6 PRN IV TACHYCARDIA Last administered on 03/23/17 18:02; Admin Dose 5 MG; Start 03/22/17 at 10:30 Morphine Sulfate (morphine) 1 mg Q4H PRN IV severe pain Last administered on 14:30; Admin Dose 1 MG; Start 03/22/17 at 12:00 Ondansetron HCl (Zofran Inj) 4 mg Q4H PRN IV NAUSEA AND/OR VOMITING Last administered on 03/25/17 01:28; Admin Dose 4 MG; Start 03/23/17 at 05:00 Polyethylene Glycol (Miralax) 17 gm DAILY GTB Last administered on 03/31/17 09 :39; Admin Dose 17 GM; Start 03/23/17 at 12:00 Multivitamins (Thera-Plus) 5 ml DAILY GTB Last administered on 03/30/17 10:06 ; Admin Dose 5 ML; Start 03/25/17 at 09:00 Metoclopramide HCl (Reglan) 10 mg Q6 IV Last administered on 03/27/17 17:31; Admin Dose 10 MG; Start 03/27/17 at 00:00 Collagenase (Santyl) 1 applic DAILY TOP Last administered on 03/31/17 09:45; Admin Dose 1 APPLIC; Start 03/27/17 at 12:00 Collagenase (Santyl) 1 applic PRN PRN TOP WOUND CARE; Start 03/27/17 at 10:30 Insulin Glargine (Lantus) 30 unit DAILY@20 SC Last administered on 03/30/17 20 :20; Admin Dose 30 UNIT; Start 03/27/17 at 20:00 Insulin Aspart (Novolog Insulin Pen) NOVOLOG *MILD* ALGORI... Q4 SC Last administered on 03/31/17 12:34; Admin Dose 3 UNIT; Start 03/27/17 at 17:00 Levetiracetam (Keppra Liquid) 500 mg BID GTB Last administered on 03/31/17 09: 39; Admin Dose 500 MG; Start 03/27/17 at 21:00 Magnesium Chloride (Mag 64) 64 mg BID PO Last administered on 03/31/17 09:39; Admin Dose 64 MG; Start 03/27/17 at 21:30 Lansoprazole (Prevacid) 30 mg BID@06,18 GTB Last administered on 03/31/17 05: 43; Admin Dose 30 MG; Start 03/28/17 at 18:00 Magnesium Oxide (Mag-Ox 400) 400 mg DAILY NGT Last administered on 03/31/17 09 :39; Admin Dose 400 MG; Start 03/29/17 at 14:00; Stop 04/02/17 at 09:01 KAYLEE FAN MD Mar 31, 2017 12:39
[2017-03-31] MEDS: METOCLOPRAMIDE (1 MG/ML) 10 ML CUP GTB SCH ×2 (13:45→22:45)
[2017-03-31] MEDS: ATORVASTATIN 40 MG TAB GTB SCH (20:26)
[2017-03-31] MEDS: INSULIN GLARGINE [LANtus] 3 ML PEN SC SCH (20:28)
[2017-03-31 21:55] VITALS: BP 119/58; RESP 18
[2017-04-01] MEDS: INSULIN ASPART [NOVOLOG] 3 ML PEN SC SCH ×6 (01:00→20:36)
[2017-04-01] MEDS: LANSOPRAZOLE 30 MG CAP GTB SCH ×2 (05:28→17:06)
[2017-04-01] MEDS: METOCLOPRAMIDE (1 MG/ML) 10 ML CUP GTB SCH ×3 (05:28→21:43)
[2017-04-01] MEDS: DILTIAZEM 60 MG TAB GTB SCH ×3 (05:30→21:43)
[2017-04-01] MEDS: FUROSEMIDE 20 MG TAB PO SCH ×2 (05:31→17:06)
[2017-04-01 06:14] LABS: ADD SCAN DIFF NO
[2017-04-01 06:30] LABS: BASOPHIL # 0.1 10^3/ul (0.0-0.1); BASOPHILS % 0.7 % (0.0-2.0); EOSINOPHILS # 0.4 10^3/ul (0.0-0.5); EOSINOPHILS % 5.3 % (0.0-7.0); HEMATOCRIT 33.5 % (37.0-47.0); HEMOGLOBIN 10.9 g/dl (12.0-16.0); LYMPHOCYTES # 2.4 10^3/ul (0.8-2.9); LYMPHOCYTES % 33.6 % (15.0-51.0); MEAN CORPUSCULAR HGB CONC 32.5 g/dl (32.0-37.0); MEAN CORPUSCULAR VOLUME 95.2 fl (82.0-101.0); MEAN PLATELET VOLUME 10.3 fl (7.4-10.4); MONOCYTE # 0.6 10^3/ul (0.3-0.9); MONOCYTES % 7.7 % (0.0-11.0); NEUTROPHIL # 3.7 10^3/ul (1.6-7.5); RED BLOOD COUNT 3.52 10^6/ul (4.20-5.40); RED CELL DISTRIBUTION WIDTH 15.2 % (11.5-14.5); WHITE BLOOD COUNT 7.2 10^3/ul (4.8-10.8)
[2017-04-01 06:34] LABS: PLATELET COUNT 915 10^3/UL (140-415)
[2017-04-01 06:54] LABS: POTASSIUM 3.7 mmol/L (3.5-5.1)
[2017-04-01 06:57] LABS: CREATININE 0.56 mg/dl (0.44-1.00)
[2017-04-01 06:58] LABS: CALCIUM 9.7 mg/dl (8.4-10.2)
[2017-04-01 07:20] VITALS: BP 123/57; RESP 18
[2017-04-01] MEDS: MULTIVITAMINS 5 ML CUP GTB SCH (09:02)
[2017-04-01] MEDS: ZINC SULFATE 220 MG CAP GTB SCH (09:02)
[2017-04-01] MEDS: MAGNESIUM OXIDE 400 MG TAB GTB SCH ×3 (09:02→20:36)
[2017-04-01] MEDS: LEVETIRACETAM (100 MG/ML) 5ML CUP GTB SCH ×2 (09:02→20:36)
[2017-04-01] MEDS: traMADol 50 MG TAB GTB SCH ×2 (09:03→20:37)
[2017-04-01] MEDS: POLYETHYLENE GLYCOL 17 GM PACKET GTB SCH (09:03)
[2017-04-01] MEDS: COLLAGENASE 30 GM TUBE TOP SCH (09:06)
[2017-04-01] MEDS: ENOXAPARIN 40 MG/0.4 ML SYG SC SCH (09:10)
--- NOTE | 2017-04-01 15:13 | PN ---
Date/Time of Note Date/Time of Note DATE: 04/01/17 TIME: 15:08 Assessment/Plan VTE Prophylaxis VTE Prophylaxis Intervention: SCD's Lines/Catheters IV [facility] Peripheral IV Urinary Cath still in place: Yes Reason Cath still needed: urinary retention Assessment/Plan Chief Complaint/Hosp Course ASSESSMENT AND PLAN: - Sepsis with leukocytosis tachycardia, resolving. - Possible HCAP vs aspiration, continue abx per ID. Dr. Pitt is following in infection disease consultation. is following in pulmonology consultation. Continue bronchodilators and oxygen supplementation. - Sinus tachycardia, Dr. Candelario is following and cardiology consultation, continue telemetry monitoring. - Left hand swelling. Continue broad-spectrum antibiotics for possible cellulitis. - Seizure disorder. Continue Keppra. - Dysphagia with percutaneous endoscopic gastrostomy. Continue G-tube feeding, aspiration precautions. - Diabetes mellitus type 2. Continue Lantus and NovoLog per sliding scale with every 4 hours Accu-Chek. - Dyslipidemia. Continue statins. - Hypertension. The patient is currently normotensive. - Schizophrenia and bipolar disorder. - Thrombocytosis, Dr. Valdovinos is asked to see patient in hematology consultation. Continue Lovenox for deep venous thrombosis prophylaxis. Further recommendations based on clinical course. Plan of care was discussed with Dr. Aly. Problems: Subjective 24 Hr Interval Summary Free Text/Dictation Patient's neurological status is at baseline, remains afebrile, and tachycardic at times, with increased thrombocytosis. Exam/Review of Systems Vital Signs Vitals Vital Signs Date Time Temp Pulse Resp B/P Pulse Ox O2 Delivery O2 Flow Rate FiO2 04/01/17 07:20 98.1 102 18 123/57 94 03/28/17 12:15 Nasal Cannula 3.0 Intake and Output 03/31/17 03/31/17 04/01/17 15:00 23:00 07:00 Intake Total 650 ml 910 ml Output Total 550 ml 500 ml Balance 100 ml 410 ml Exam GENERAL: Well-developed, well-nourished female, currently awake alert. HEENT: Head is atraumatic, normocephalic. Pupils equal, round, reactive to light and accommodation. Oral mucosa is pink and moist. NECK: Supple, no cervical lymphadenopathy, no thyromegaly. CHEST: Lungs clear bilaterally, slightly diminished at the bases. CARDIOVASCULAR: Normal S1, S2. No murmurs, gallops, clicks, rubs noted. The patient is tachycardic. ABDOMEN: Round, soft, nondistended, nontender. G-tube with intact stoma. SKIN: There is no rash, petechiae. NEUROLOGIC: The patient is awake, alert. Results Result Diagram: 04/01/17 0540 04/01/17 0540 Results 24 hrs Laboratory Tests Test 03/31/17 17:43 03/31/17 20:23 04/01/17 01:26 04/01/17 05:27 Bedside Glucose 265 H 191 130 126 Test 04/01/17 05:40 04/01/17 09:02 04/01/17 13:20 White Blood Count 7.2 Red Blood Count 3.52 L Hemoglobin 10.9 L Hematocrit 33.5 L Mean Corpuscular Volume 95.2 Mean Corpuscular Hemoglobin 31.0 Mean Corpuscular Hemoglobin Concent 32.5 Red Cell Distribution Width 15.2 H Platelet Count 915 H Mean Platelet Volume 10.3 Neutrophils % 51.0 Lymphocytes % 33.6 Monocytes % 7.7 Eosinophils % 5.3 Basophils % 0.7 Nucleated Red Blood Cells % 0.0 Neutrophils # 3.7 Lymphocytes # 2.4 Monocytes # 0.6 Eosinophils # 0.4 Basophils # 0.1 Nucleated Red Blood Cells # 0.0 Sodium Level 134 L Potassium Level 3.7 Chloride Level 87 L Carbon Dioxide Level 33 H Anion Gap 18 H Blood Urea Nitrogen 30 H Creatinine 0.56 Glucose Level 148 Calcium Level 9.7 Bedside Glucose 194 176 Medications Medications Current Medications Atorvastatin Calcium (Lipitor) 40 mg HS GTB Last administered on 03/31/17 20: 26; Admin Dose 40 MG; Start 03/19/17 at 21:00 Bisacodyl (Dulcolax Supp) 10 mg DAILY PRN [place] PRN; Start 03/19/17 at 05:00 Enoxaparin Sodium (Lovenox) 40 mg DAILY SC Last administered on 04/01/17 09:10 ; Admin Dose 40 MG; Start 03/19/17 at 09:00 Tramadol HCl (Ultram) 50 mg BID GTB Last administered on 04/01/17 09:03; Admin Dose 50 MG; Start 03/19/17 at 09:00 Zinc Sulfate (Zinc Sulfate) 220 mg DAILY GTB Last administered on 04/01/17 09: 02; Admin Dose 220 MG; Start 03/19/17 at 09:00 Acetaminophen (Tylenol Liquid) 650 mg Q4H PRN GTB MILD PAIN LEVEL 1-3 Last administered on 03/23/17 22:30; Admin Dose 650 MG; Start 03/19/17 at 06:00 Acetaminophen (Tylenol Liquid) 1,000 mg Q4H PRN PO PAIN LEVEL 4-6/10 Last administered on 03/22/17 03:30; Admin Dose 1,000 MG; Start 03/19/17 at 06:00 Miscellaneous Information 1 ea NOTE XX ; Start 03/19/17 at 06:00 Glucose (Glutose) 15 gm Q15M PRN PO DECREASED GLUCOSE; Start 03/19/17 at 06:00 Glucose (Glutose) 22.5 gm Q15M PRN PO DECREASED GLUCOSE; Start 03/19/17 at 06: 00 Dextrose (D50w Syringe) 25 ml Q15M PRN IV DECREASED GLUCOSE; Start 03/19/17 at 06:00 Dextrose (D50w Syringe) 50 ml Q15M PRN IV DECREASED GLUCOSE; Start 03/19/17 at 06:00 Glucagon (Glucagen) 1 mg Q15M PRN IM DECREASED GLUCOSE; Start 03/19/17 at 06:00 Glucose (Glutose) 15 gm Q15M PRN BUCCAL DECREASED GLUCOSE; Start 03/19/17 at 06 :00 Sodium Biphosphate/ Sodium Phosphate (Fleet Enema) 133 ml DAILY PRN [place] CONSTIPATION; Start 03/19/17 at 06:30 Diltiazem HCl (Cardizem) 60 mg Q8 GTB Last administered on 04/01/17 13:23; Admin Dose 60 MG; Start 03/19/17 at 14:00 Metoprolol Tartrate (Lopressor) 5 mg Q6 PRN IV TACHYCARDIA Last administered on 03/23/17 18:02; Admin Dose 5 MG; Start 03/22/17 at 10:30 Morphine Sulfate (morphine) 1 mg Q4H PRN IV severe pain Last administered on 14:30; Admin Dose 1 MG; Start 03/22/17 at 12:00 Ondansetron HCl (Zofran Inj) 4 mg Q4H PRN IV NAUSEA AND/OR VOMITING Last administered on 03/25/17 01:28; Admin Dose 4 MG; Start 03/23/17 at 05:00 Polyethylene Glycol (Miralax) 17 gm DAILY GTB Last administered on 04/01/17 09: 03; Admin Dose 17 GM; Start 03/23/17 at 12:00 Multivitamins (Thera-Plus) 5 ml DAILY GTB Last administered on 04/01/17 09:02; Admin Dose 5 ML; Start 03/25/17 at 09:00 Collagenase (Santyl) 1 applic DAILY TOP Last administered on 04/01/17 09:06; Admin Dose 1 APPLIC; Start 03/27/17 at 12:00 Collagenase (Santyl) 1 applic PRN PRN TOP WOUND CARE; Start 03/27/17 at 10:30 Insulin Glargine (Lantus) 30 unit DAILY@20 SC Last administered on 03/31/17 20 :28; Admin Dose 30 UNIT; Start 03/27/17 at 20:00 Insulin Aspart (Novolog Insulin Pen) NOVOLOG *MILD* ALGORI... Q4 SC Last administered on 04/01/17 13:22; Admin Dose 1 UNIT; Start 03/27/17 at 17:00 Levetiracetam (Keppra Liquid) 500 mg BID GTB Last administered on 04/01/17 09: 02; Admin Dose 500 MG; Start 03/27/17 at 21:00 Lansoprazole (Prevacid) 30 mg BID@06,18 GTB Last administered on 04/01/17 05:28 ; Admin Dose 30 MG; Start 03/28/17 at 18:00 Metoclopramide HCl (Reglan Liq) 10 mg Q8 GTB Last administered on 04/01/17 13: 23; Admin Dose 10 MG; Start 03/31/17 at 13:30 Magnesium Oxide (Mag-Ox 400) 400 mg TID GTB Last administered on 04/01/17 13:22 ; Admin Dose 400 MG; Start 04/01/17 at 09:00 DENA SALGUERO April 01, 2017 15:13
--- NOTE | 2017-04-01 16:14 | CONS ---
Date/Time of Note Date/Time of Note DATE: 04/01/17 TIME: 16:13 Assessment/Plan Assessment/Plan Additional Assessment/Plan Sepsis Acute decompensated diastolic congestive heart failure-improving Sinus tachycardia History of paroxysmal atrial tachycardia Preserved ejection fraction Psychiatric disorder Seizure disorder Volume overload -tolerating p.o. Lasix, continue, as long as blood pressure and renal function permits. Maintain potassium above 4.0 and magnesium above 2.0. Consultation Date/Type/Reason Admit Date/Time Mar 19, 2017 at 01:44 Initial Consult Date 03/22/17 Type of Consultation: cv 24 HR Interval Summary Free Text/Dictation Patient seen and examined Exam/Review of Systems Vital Signs Vitals Vital Signs Date Time Temp Pulse Resp B/P Pulse Ox O2 Delivery O2 Flow Rate FiO2 04/01/17 07:20 98.1 102 18 123/57 94 03/28/17 12:15 Nasal Cannula 3.0 Intake and Output 03/31/17 03/31/17 04/01/17 15:00 23:00 07:00 Intake Total 650 ml 910 ml Output Total 550 ml 500 ml Balance 100 ml 410 ml Exam Awake, no apparent distress Head: normocephalic Respiratory: other (Coarse breath sounds bilaterally, no wheezing) Cardiovascular: other (S1-S2 heard), regular rate and rhythm Gastrointestinal: bowel sounds, non-tender, soft Extremities: edema (Trace) Results Result Diagram: 04/01/17 0540 04/01/17 0540 Results 24 hrs Laboratory Tests Test 03/31/17 17:43 03/31/17 20:23 04/01/17 01:26 04/01/17 05:27 Bedside Glucose 265 H 191 130 126 Test 04/01/17 05:40 04/01/17 09:02 04/01/17 13:20 White Blood Count 7.2 Red Blood Count 3.52 L Hemoglobin 10.9 L Hematocrit 33.5 L Mean Corpuscular Volume 95.2 Mean Corpuscular Hemoglobin 31.0 Mean Corpuscular Hemoglobin Concent 32.5 Red Cell Distribution Width 15.2 H Platelet Count 915 H Mean Platelet Volume 10.3 Neutrophils % 51.0 Lymphocytes % 33.6 Monocytes % 7.7 Eosinophils % 5.3 Basophils % 0.7 Nucleated Red Blood Cells % 0.0 Neutrophils # 3.7 Lymphocytes # 2.4 Monocytes # 0.6 Eosinophils # 0.4 Basophils # 0.1 Nucleated Red Blood Cells # 0.0 Sodium Level 134 L Potassium Level 3.7 Chloride Level 87 L Carbon Dioxide Level 33 H Anion Gap 18 H Blood Urea Nitrogen 30 H Creatinine 0.56 Glucose Level 148 Calcium Level 9.7 Bedside Glucose 194 176 Medications Medications Current Medications Atorvastatin Calcium (Lipitor) 40 mg HS GTB Last administered on 03/31/17 20: 26; Admin Dose 40 MG; Start 03/19/17 at 21:00 Bisacodyl (Dulcolax Supp) 10 mg DAILY PRN CO PRN; Start 03/19/17 at 05:00 Enoxaparin Sodium (Lovenox) 40 mg DAILY SC Last administered on 04/01/17 09:10 ; Admin Dose 40 MG; Start 03/19/17 at 09:00 Tramadol HCl (Ultram) 50 mg BID GTB Last administered on 04/01/17 09:03; Admin Dose 50 MG; Start 03/19/17 at 09:00 Zinc Sulfate (Zinc Sulfate) 220 mg DAILY GTB Last administered on 04/01/17 09: 02; Admin Dose 220 MG; Start 03/19/17 at 09:00 Acetaminophen (Tylenol Liquid) 650 mg Q4H PRN GTB MILD PAIN LEVEL 1-3 Last administered on 03/23/17 22:30; Admin Dose 650 MG; Start 03/19/17 at 06:00 Acetaminophen (Tylenol Liquid) 1,000 mg Q4H PRN PO PAIN LEVEL 4-6/10 Last administered on 03/22/17 03:30; Admin Dose 1,000 MG; Start 03/19/17 at 06:00 Miscellaneous Information 1 ea NOTE XX ; Start 03/19/17 at 06:00 Glucose (Glutose) 15 gm Q15M PRN PO DECREASED GLUCOSE; Start 03/19/17 at 06:00 Glucose (Glutose) 22.5 gm Q15M PRN PO DECREASED GLUCOSE; Start 03/19/17 at 06: 00 Dextrose (D50w Syringe) 25 ml Q15M PRN IV DECREASED GLUCOSE; Start 03/19/17 at 06:00 Dextrose (D50w Syringe) 50 ml Q15M PRN IV DECREASED GLUCOSE; Start 03/19/17 at 06:00 Glucagon (Glucagen) 1 mg Q15M PRN IM DECREASED GLUCOSE; Start 03/19/17 at 06:00 Glucose (Glutose) 15 gm Q15M PRN BUCCAL DECREASED GLUCOSE; Start 03/19/17 at 06 :00 Sodium Biphosphate/ Sodium Phosphate (Fleet Enema) 133 ml DAILY PRN [place] CONSTIPATION; Start 03/19/17 at 06:30 Diltiazem HCl (Cardizem) 60 mg Q8 GTB Last administered on 04/01/17 13:23; Admin Dose 60 MG; Start 03/19/17 at 14:00 Metoprolol Tartrate (Lopressor) 5 mg Q6 PRN IV TACHYCARDIA Last administered on 03/23/17 18:02; Admin Dose 5 MG; Start 03/22/17 at 10:30 Morphine Sulfate (morphine) 1 mg Q4H PRN IV severe pain Last administered on 14:30; Admin Dose 1 MG; Start 03/22/17 at 12:00 Ondansetron HCl (Zofran Inj) 4 mg Q4H PRN IV NAUSEA AND/OR VOMITING Last administered on 03/25/17 01:28; Admin Dose 4 MG; Start 03/23/17 at 05:00 Polyethylene Glycol (Miralax) 17 gm DAILY GTB Last administered on 04/01/17 09: 03; Admin Dose 17 GM; Start 03/23/17 at 12:00 Multivitamins (Thera-Plus) 5 ml DAILY GTB Last administered on 04/01/17 09:02; Admin Dose 5 ML; Start 03/25/17 at 09:00 Collagenase (Santyl) 1 applic DAILY TOP Last administered on 04/01/17 09:06; Admin Dose 1 APPLIC; Start 03/27/17 at 12:00 Collagenase (Santyl) 1 applic PRN PRN TOP WOUND CARE; Start 03/27/17 at 10:30 Insulin Glargine (Lantus) 30 unit DAILY@20 SC Last administered on 03/31/17 20 :28; Admin Dose 30 UNIT; Start 03/27/17 at 20:00 Insulin Aspart (Novolog Insulin Pen) NOVOLOG *MILD* ALGORI... Q4 SC Last administered on 04/01/17 13:22; Admin Dose 1 UNIT; Start 03/27/17 at 17:00 Levetiracetam (Keppra Liquid) 500 mg BID GTB Last administered on 04/01/17 09: 02; Admin Dose 500 MG; Start 03/27/17 at 21:00 Lansoprazole (Prevacid) 30 mg BID@,18 GTB Last administered on 04/01/17 05:28 ; Admin Dose 30 MG; Start 03/28/17 at 18:00 Metoclopramide HCl (Reglan Liq) 10 mg Q8 GTB Last administered on 04/01/17 13: 23; Admin Dose 10 MG; Start 03/31/17 at 13:30 Magnesium Oxide (Mag-Ox 400) 400 mg TID GTB Last administered on 04/01/17 13:22 ; Admin Dose 400 MG; Start 04/01/17 at 09:00 Gamal Coronel DO April 01, 2017 16:14
--- NOTE | 2017-04-01 18:35 | CONS ---
Date/Time of Note Date/Time of Note DATE: 04/01/17 TIME: 18:34 Assessment/Plan Assessment/Plan Additional Assessment/Plan Additional Assessment/Plan IMPRESSION: 1. nausea with vomiting: KUB negative resolved 2. Possible sepsis with leukocytosis tachycardia. 3. Possible HCAP 4. Sinus tachycardia, most likely secondary to dehydration. 5. Left arm/hand swelling. 6. Seizure disorder. 7. Dysphagia with percutaneous endoscopic gastrostomy. 8. Iron deficiency anemia 9 abnormal liver function test 10. Diabetic gastroparesis RECOMMENDATION 1. change pepcid to protonix iv bid in case n/v due to PUD, gastritis, esophagitis 2. change bowel regiman to miralax daily 3. add reglan 10 mg iv bid to see if it will help with the nausea 5. continue to hold tube feed for now (as she is still nauseous and awaiting KUB from today) but ok for meds 7. stop GT iron as it can be constipating. will recheck iron panel and replete by IV if low 8. stop vitamin C as we replete iron if low by IV and to minimize GT load 9. continue D5 LR with 20 mEQ KCL so pt don't need GT potassium to minimize constipation and nausea (oral KCL can cause nausea) 10. Ultrasound of the liver, acute hepatitis panel hepatitis panel negative. Ultrasound of the abdomen not done. 11. Will change Reglan from IV to G-tube. Patient is tolerating feeding now on p.o. Reglan Consultation Date/Type/Reason Admit Date/Time Mar 19, 2017 at 01:44 Initial Consult Date 03/22/17 Type of Consultation: cv 24 HR Interval Summary Free Text/Dictation No emesis tolerating feeding Constitutional: no complaints Exam/Review of Systems Vital Signs Vitals Vital Signs Date Time Temp Pulse Resp B/P Pulse Ox O2 Delivery O2 Flow Rate FiO2 04/01/17 07:20 98.1 102 18 123/57 94 03/28/17 12:15 Nasal Cannula 3.0 Intake and Output 03/31/17 03/31/17 04/01/17 15:00 23:00 07:00 Intake Total 650 ml 910 ml Output Total 550 ml 500 ml Balance 100 ml 410 ml Exam Constitutional: alert, oriented, well developed Psych: nl mood/affect, no complaints Head: atraumatic, normocephalic Eyes: EOMI, PERRL, nl conjunctiva, nl lids, nl sclera ENMT: nl external ears & nose, nl lips & teeth, nl nasal mucosa & septum Neck: non-tender, supple Respiratory: clear to auscultation, normal air movement Cardiovascular: nl pulses, regular rate and rhythm Gastrointestinal: nl liver, spleen, non-tender, soft Musculoskeletal: nl extremities to inspection, nl gait and stance Extremities: normal pulses Neurological: MANAGER OF SELECTION AND ASSESSMENT II-XII intact, nl mental status, nl speech, nl strength Skin: nl turgor, No rash or lesions Lymph: nl lymph nodes Results Result Diagram: 04/01/1753904/01/1740 Results 24 hrs Laboratory Tests Test 03/31/17 20:23 04/01/17 01:26 04/01/17 05:27 04/01/17 05:40 Bedside Glucose 191 130 126 White Blood Count 7.2 Red Blood Count 3.52 L Hemoglobin 10.9 L Hematocrit 33.5 L Mean Corpuscular Volume 95.2 Mean Corpuscular Hemoglobin 31.0 Mean Corpuscular Hemoglobin Concent 32.5 Red Cell Distribution Width 15.2 H Platelet Count 915 H Mean Platelet Volume 10.3 Neutrophils % 51.0 Lymphocytes % 33.6 Monocytes % 7.7 Eosinophils % 5.3 Basophils % 0.7 Nucleated Red Blood Cells % 0.0 Neutrophils # 3.7 Lymphocytes # 2.4 Monocytes # 0.6 Eosinophils # 0.4 Basophils # 0.1 Nucleated Red Blood Cells # 0.0 Sodium Level 134 L Potassium Level 3.7 Chloride Level 87 L Carbon Dioxide Level 33 H Anion Gap 18 H Blood Urea Nitrogen 30 H Creatinine 0.56 Glucose Level 148 Calcium Level 9.7 Test 04/01/17 09:02 04/01/17 13:20 04/01/17 17:05 Bedside Glucose 194 176 193 Medications Medications Current Medications Atorvastatin Calcium (Lipitor) 40 mg HS GTB Last administered on 03/31/17 20: 26; Admin Dose 40 MG; Start 03/19/17 at 21:00 Bisacodyl (Dulcolax Supp) 10 mg DAILY PRN GA PRN; Start 03/19/17 at 05:00 Enoxaparin Sodium (Lovenox) 40 mg DAILY SC Last administered on 04/01/17 09:10 ; Admin Dose 40 MG; Start 03/19/17 at 09:00 Tramadol HCl (Ultram) 50 mg BID GTB Last administered on 04/01/17 09:03; Admin Dose 50 MG; Start 03/19/17 at 09:00 Zinc Sulfate (Zinc Sulfate) 220 mg DAILY GTB Last administered on 04/01/17 09: 02; Admin Dose 220 MG; Start 03/19/17 at 09:00 Acetaminophen (Tylenol Liquid) 650 mg Q4H PRN GTB MILD PAIN LEVEL 1-3 Last administered on 03/23/17 22:30; Admin Dose 650 MG; Start 03/19/17 at 06:00 Acetaminophen (Tylenol Liquid) 1,000 mg Q4H PRN PO PAIN LEVEL 4-6/10 Last administered on 03/22/17 03:30; Admin Dose 1,000 MG; Start 03/19/17 at 06:00 Miscellaneous Information 1 ea NOTE XX ; Start 03/19/17 at 06:00 Glucose (Glutose) 15 gm Q15M PRN PO DECREASED GLUCOSE; Start 03/19/17 at 06:00 Glucose (Glutose) 22.5 gm Q15M PRN PO DECREASED GLUCOSE; Start 03/19/17 at 06: 00 Dextrose (D50w Syringe) 25 ml Q15M PRN IV DECREASED GLUCOSE; Start 03/19/17 at 06:00 Dextrose (D50w Syringe) 50 ml Q15M PRN IV DECREASED GLUCOSE; Start 03/19/17 at 06:00 Glucagon (Glucagen) 1 mg Q15M PRN IM DECREASED GLUCOSE; Start 03/19/17 at 06:00 Glucose (Glutose) 15 gm Q15M PRN BUCCAL DECREASED GLUCOSE; Start 03/19/17 at 06 :00 Sodium Biphosphate/ Sodium Phosphate (Fleet Enema) 133 ml DAILY PRN [place] CONSTIPATION; Start 03/19/17 at 06:30 Diltiazem HCl (Cardizem) 60 mg Q8 GTB Last administered on 04/01/17 13:23; Admin Dose 60 MG; Start 03/19/17 at 14:00 Metoprolol Tartrate (Lopressor) 5 mg Q6 PRN IV TACHYCARDIA Last administered on 03/23/17 18:02; Admin Dose 5 MG; Start 03/22/17 at 10:30 Morphine Sulfate (morphine) 1 mg Q4H PRN IV severe pain Last administered on 14:30; Admin Dose 1 MG; Start 03/22/17 at 12:00 Ondansetron HCl (Zofran Inj) 4 mg Q4H PRN IV NAUSEA AND/OR VOMITING Last administered on 03/25/17 01:28; Admin Dose 4 MG; Start 03/23/17 at 05:00 Polyethylene Glycol (Miralax) 17 gm DAILY GTB Last administered on 04/01/17 09: 03; Admin Dose 17 GM; Start 03/23/17 at 12:00 Multivitamins (Thera-Plus) 5 ml DAILY GTB Last administered on 04/01/17 09:02; Admin Dose 5 ML; Start 03/25/17 at 09:00 Collagenase (Santyl) 1 applic DAILY TOP Last administered on 04/01/17 09:06; Admin Dose 1 APPLIC; Start 03/27/17 at 12:00 Collagenase (Santyl) 1 applic PRN PRN TOP WOUND CARE; Start 03/27/17 at 10:30 Insulin Glargine (Lantus) 30 unit DAILY@20 SC Last administered on 03/31/17 20 :28; Admin Dose 30 UNIT; Start 03/27/17 at 20:00 Insulin Aspart (Novolog Insulin Pen) NOVOLOG *MILD* ALGORI... Q4 SC Last administered on 04/01/17 17:06; Admin Dose 2 UNIT; Start 03/27/17 at 17:00 Levetiracetam (Keppra Liquid) 500 mg BID GTB Last administered on 04/01/17 09: 02; Admin Dose 500 MG; Start 03/27/17 at 21:00 Lansoprazole (Prevacid) 30 mg BID@06,18 GTB Last administered on 04/01/17 17:06 ; Admin Dose 30 MG; Start 03/28/17 at 18:00 Metoclopramide HCl (Reglan Liq) 10 mg Q8 GTB Last administered on 04/01/17 13: 23; Admin Dose 10 MG; Start 03/31/17 at 13:30 Magnesium Oxide (Mag-Ox 400) 400 mg TID GTB Last administered on 04/01/17 13:22 ; Admin Dose 400 MG; Start 04/01/17 at 09:00 KAYLEE FAN MD April 01, 2017 18:35
[2017-04-01 20:33] VITALS: BP 128/60; RESP 20
[2017-04-01] MEDS: INSULIN GLARGINE [LANtus] 3 ML PEN SC SCH (20:35)
[2017-04-01] MEDS: ATORVASTATIN 40 MG TAB GTB SCH (20:36)
[2017-04-02] MEDS: INSULIN ASPART [NOVOLOG] 3 ML PEN SC SCH ×5 (01:13→18:13)
[2017-04-02] MEDS: LANSOPRAZOLE 30 MG CAP GTB SCH ×2 (05:30→18:13)
[2017-04-02] MEDS: METOCLOPRAMIDE (1 MG/ML) 10 ML CUP GTB SCH ×2 (05:30→13:10)
[2017-04-02] MEDS: FUROSEMIDE 20 MG TAB PO SCH ×2 (05:31→18:13)
[2017-04-02] MEDS: DILTIAZEM 60 MG TAB GTB SCH ×2 (05:31→13:11)
[2017-04-02 05:38] LABS: ADD SCAN DIFF NO
[2017-04-02 05:53] LABS: BASOPHIL # 0.1 10^3/ul (0.0-0.1); BASOPHILS % 0.7 % (0.0-2.0); EOSINOPHILS # 0.4 10^3/ul (0.0-0.5); EOSINOPHILS % 5.4 % (0.0-7.0); HEMATOCRIT 35.7 % (37.0-47.0); HEMOGLOBIN 11.3 g/dl (12.0-16.0); LYMPHOCYTES # 2.7 10^3/ul (0.8-2.9); LYMPHOCYTES % 38.3 % (15.0-51.0); MEAN CORPUSCULAR HEMOGLOBIN 30.2 pg (29.0-33.0); MEAN CORPUSCULAR HGB CONC 31.7 g/dl (32.0-37.0); MEAN CORPUSCULAR VOLUME 95.5 fl (82.0-101.0); MEAN PLATELET VOLUME 10.3 fl (7.4-10.4); MONOCYTE # 0.5 10^3/ul (0.3-0.9); MONOCYTES % 7.1 % (0.0-11.0); NEUTROPHIL # 3.4 10^3/ul (1.6-7.5); NEUTROPHILS % 47.8 % (39.0-77.0); PLATELET COUNT 877 10^3/UL (140-415); RED BLOOD COUNT 3.74 10^6/ul (4.20-5.40); RED CELL DISTRIBUTION WIDTH 15.4 % (11.5-14.5)
[2017-04-02 06:08] LABS: CALCIUM 9.7 mg/dl (8.4-10.2); CREATININE 0.59 mg/dl (0.44-1.00); POTASSIUM 3.5 mmol/L (3.5-5.1)
[2017-04-02 08:55] VITALS: BP 119/57; RESP 20
[2017-04-02] MEDS: traMADol 50 MG TAB GTB SCH (09:02)
[2017-04-02] MEDS: ZINC SULFATE 220 MG CAP GTB SCH (09:02)
[2017-04-02] MEDS: MAGNESIUM OXIDE 400 MG TAB GTB SCH ×2 (09:02→13:10)
[2017-04-02] MEDS: MULTIVITAMINS 5 ML CUP GTB SCH (09:02)
[2017-04-02] MEDS: POLYETHYLENE GLYCOL 17 GM PACKET GTB SCH (09:02)
[2017-04-02] MEDS: LEVETIRACETAM (100 MG/ML) 5ML CUP GTB SCH (09:03)
[2017-04-02] MEDS: COLLAGENASE 30 GM TUBE TOP SCH (09:04)
[2017-04-02] MEDS: ENOXAPARIN 40 MG/0.4 ML SYG SC SCH (09:14)
--- NOTE | 2017-04-02 15:01 | CONS ---
Date/Time of Note Date/Time of Note DATE: 04/02/17 TIME: 14:25 Assessment/Plan Assessment/Plan Chief Complaint/Hosp Course 56 yo female with worsening thrombocytosis in the setting of resolving infection and leukocytosis. Upon review of the peripheral smear, marked thrombocytosis was seen but there was no obvious evidence of myeloproliferative changes or dysplastic cells. Given that the platelet count barbi while she was in the hospital, rather than being chronically elevated, it is more likely that this is reactive response to the underlying inflammation and sepsis. Plan -to definitely rule out myeloproliferative disorder, will send FLORENTINO 2 mutational analysis -cont to monitor platelet count while patient is actively being treated with antibiotics Problems: Consultation Date/Type/Reason Admit Date/Time Mar 19, 2017 at 01:44 Date of Consultation: April 02, 2017 Type of Consultation: hematology Reason for Consultation thrombocytosis Referring Provider: LUZMA HYMAN MD Hx of Present Illness 56-year-old female with history of schizophrenia and bipolar disorder, dysphagia with G-tube placement who was originally admitted from the nursing home facility for tachycardic with heart rate in 140s. The patient was also noted to have swelling of the left hand and was started on Septra and Keflex. Pt is now being treated for sepsis secondary to HCAP and hand cellulitis. Despite improvement in her leukocytosis with antibiotics, patient's platelet count began to rise, hence the reason for this consult. Pt currently feels better. She denies chest pain, shortness of breath or hand pain. Constitutional: no complaints Eyes: no complaints ENT: no complaints Respiratory: no complaints Cardiovascular: no complaints Gastrointestinal: other (hungry) Genitourinary: other (FC) Musculoskeletal: no complaints Skin: no complaints Psychological: nl mood/affect, no complaints Past Medical History history of schizophrenia bipolar disorder hypertension diabetes dyslipidemia dysphagia with G-tube placement history of tonic-clonic seizures history of sepsis urinary tract infection. Medical History: coronary artery disease, GERD, high cholesterol, hypertension , other (dysphagia) Past Surgical History Past Surgical Hx: endoscopy Family History Significant Family History: no pertinent family hx Social History Alcohol Use: none Smoking Status: Never smoker Drug Use: none Exam/Review of Systems Vital Signs Vitals Vital Signs Date Time Temp Pulse Resp B/P Pulse Ox O2 Delivery O2 Flow Rate FiO2 04/02/17 08:55 98.3 99 20 119/57 95 Intake and Output 04/01/17 04/01/17 04/02/17 15:00 23:00 07:00 Intake Total 910 ml 910 ml Output Total 600 ml 650 ml Balance 310 ml 260 ml Exam Constitutional: alert, frail, oriented Psych: depression, no complaints Head: normocephalic Eyes: nl conjunctiva ENMT: nl external ears & nose, nl lips & teeth Neck: non-tender, supple Respiratory: clear to auscultation, normal air movement Cardiovascular: regular rate and rhythm Gastrointestinal: other (gtube in place) Musculoskeletal: nl extremities to inspection, nl gait and stance Extremities: normal pulses Results Result Diagram: 04/02/17 0445 04/02/175 Results 24 hrs Laboratory Tests Test 04/01/17 17:05 04/01/17 20:33 04/02/17 01:10 04/02/17 04:45 Bedside Glucose 193 191 157 White Blood Count 7.0 Red Blood Count 3.74 L Hemoglobin 11.3 L Hematocrit 35.7 L Mean Corpuscular Volume 95.5 Mean Corpuscular Hemoglobin 30.2 Mean Corpuscular Hemoglobin Concent 31.7 L Red Cell Distribution Width 15.4 H Platelet Count 877 H Mean Platelet Volume 10.3 Neutrophils % 47.8 Lymphocytes % 38.3 Monocytes % 7.1 Eosinophils % 5.4 Basophils % 0.7 Nucleated Red Blood Cells % 0.0 Neutrophils # 3.4 Lymphocytes # 2.7 Monocytes # 0.5 Eosinophils # 0.4 Basophils # 0.1 Nucleated Red Blood Cells # 0.0 Sodium Level 133 L Potassium Level 3.5 Chloride Level 88 L Carbon Dioxide Level 35 H Anion Gap 14 Blood Urea Nitrogen 32 H Creatinine 0.59 Glucose Level 139 Calcium Level 9.7 Test 04/02/17 05:29 04/02/17 09:02 04/02/17 13:00 Bedside Glucose 123 122 145 Medications Medications Current Medications Atorvastatin Calcium (Lipitor) 40 mg HS GTB Last administered on 04/01/17 20:36 ; Admin Dose 40 MG; Start 03/19/17 at 21:00 Bisacodyl (Dulcolax Supp) 10 mg DAILY PRN HI PRN; Start 03/19/17 at 05:00 Enoxaparin Sodium (Lovenox) 40 mg DAILY SC Last administered on 04/02/17 09:14 ; Admin Dose 40 MG; Start 03/19/17 at 09:00 Tramadol HCl (Ultram) 50 mg BID GTB Last administered on 04/02/17 09:02; Admin Dose 50 MG; Start 03/19/17 at 09:00 Zinc Sulfate (Zinc Sulfate) 220 mg DAILY GTB Last administered on 04/02/17 09: 02; Admin Dose 220 MG; Start 03/19/17 at 09:00 Acetaminophen (Tylenol Liquid) 650 mg Q4H PRN GTB MILD PAIN LEVEL 1-3 Last administered on 03/23/17 22:30; Admin Dose 650 MG; Start 03/19/17 at 06:00 Acetaminophen (Tylenol Liquid) 1,000 mg Q4H PRN PO PAIN LEVEL 4-6/10 Last administered on 03/22/17 03:30; Admin Dose 1,000 MG; Start 03/19/17 at 06:00 Miscellaneous Information 1 ea NOTE XX ; Start 03/19/17 at 06:00 Glucose (Glutose) 15 gm Q15M PRN PO DECREASED GLUCOSE; Start 03/19/17 at 06:00 Glucose (Glutose) 22.5 gm Q15M PRN PO DECREASED GLUCOSE; Start 03/19/17 at 06: 00 Dextrose (D50w Syringe) 25 ml Q15M PRN IV DECREASED GLUCOSE; Start 03/19/17 at 06:00 Dextrose (D50w Syringe) 50 ml Q15M PRN IV DECREASED GLUCOSE; Start 03/19/17 at 06:00 Glucagon (Glucagen) 1 mg Q15M PRN IM DECREASED GLUCOSE; Start 03/19/17 at 06:00 Glucose (Glutose) 15 gm Q15M PRN BUCCAL DECREASED GLUCOSE; Start 03/19/17 at 06 :00 Sodium Biphosphate/ Sodium Phosphate (Fleet Enema) 133 ml DAILY PRN [place] CONSTIPATION; Start 03/19/17 at 06:30 Diltiazem HCl (Cardizem) 60 mg Q8 GTB Last administered on 04/02/17 13:11; Admin Dose 60 MG; Start 03/19/17 at 14:00 Metoprolol Tartrate (Lopressor) 5 mg Q6 PRN IV TACHYCARDIA Last administered on 03/23/17 18:02; Admin Dose 5 MG; Start 03/22/17 at 10:30 Morphine Sulfate (morphine) 1 mg Q4H PRN IV severe pain Last administered on 14:30; Admin Dose 1 MG; Start 03/22/17 at 12:00 Ondansetron HCl (Zofran Inj) 4 mg Q4H PRN IV NAUSEA AND/OR VOMITING Last administered on 03/25/17 01:28; Admin Dose 4 MG; Start 03/23/17 at 05:00 Polyethylene Glycol (Miralax) 17 gm DAILY GTB Last administered on 04/02/17 09: 02; Admin Dose 17 GM; Start 03/23/17 at 12:00 Multivitamins (Thera-Plus) 5 ml DAILY GTB Last administered on 04/02/17 09:02; Admin Dose 5 ML; Start 03/25/17 at 09:00 Collagenase (Santyl) 1 applic DAILY TOP Last administered on 04/02/17 09:04; Admin Dose 1 APPLIC; Start 03/27/17 at 12:00 Collagenase (Santyl) 1 applic PRN PRN TOP WOUND CARE; Start 03/27/17 at 10:30 Insulin Glargine (Lantus) 30 unit DAILY@20 SC Last administered on 04/01/17 20: 35; Admin Dose 30 UNIT; Start 03/27/17 at 20:00 Insulin Aspart (Novolog Insulin Pen) NOVOLOG *MILD* ALGORI... Q4 SC Last administered on 04/02/17 13:10; Admin Dose 1 UNIT; Start 03/27/17 at 17:00 Levetiracetam (Keppra Liquid) 500 mg BID GTB Last administered on 04/02/17 09: 03; Admin Dose 500 MG; Start 03/27/17 at 21:00 Lansoprazole (Prevacid) 30 mg BID@06,18 GTB Last administered on 04/02/17 05:30 ; Admin Dose 30 MG; Start 03/28/17 at 18:00 Metoclopramide HCl (Reglan Liq) 10 mg Q8 GTB Last administered on 04/02/17 13: 10; Admin Dose 10 MG; Start 03/31/17 at 13:30 Magnesium Oxide (Mag-Ox 400) 400 mg TID GTB Last administered on 04/02/17 13:10 ; Admin Dose 400 MG; Start 04/01/17 at 09:00 NANCY CAMPBELL M.D. April 02, 2017 14:37
[2017-04-02 20:09] VITALS: BP 124/62; RESP 24
--- NOTE | 2017-04-03 03:37 | DS ---
DATE OF ADMISSION: 03/19/2017 DATE OF DISCHARGE: 04/02/2017 FINAL DIAGNOSES: 1. Sepsis with leukocytosis and tachycardia, resolved. 2. Possible healthcare-associated pneumonia versus aspiration, resolved. 3. Sinus tachycardia, resolved. 4. Left hand swelling, resolved. 5. Seizure disorder. 6. Dysphagia with PEG. 7. Diabetes mellitus type 2. 8. Dyslipidemia. 9. Hypertension. 10. Schizophrenia and bipolar disorder. 11. Thrombocytosis most likely reactive to underlying inflammation and sepsis. BRIEF HISTORY: The patient is a 56-year-old female with bipolar disorder, schizophrenia, dysphagia with PEG, and history of tonic-clonic seizures. The patient was admitted from [facility] it for tachycardia with the heart rate being in the 140s and left hand swelling. The patient was s tarted on Septra and Keflex in [facility], and the patient was presented to the emerge ncy room and admitted for further evaluation and management. The patient developed tachycardia with leukocytosis and was evaluated by Dr. Roche in pulmonology consultation. The patient was closely monitored in telemetry floor. The patient was also evaluated by Dr. Pitt's group in infectious d isease consultation and was started on broad spectrum antibiotics for possible healthcare-acquired p neumonia versus aspiration. The patient's blood cultures were negative; however, the patient was no daniella to have vancomycin-resistant Enterococcus. Enterococcus was acceptable to ampicillin, and the p atient completed the treatment with antibiotics. The patient was also evaluated and followed by Dr. Coronel in cardiology consultation for tachycardia. The patient's blood sugar was controlled with L antus and NovoLog. The patient also was given antibiotics for left hand cellulitis and swelling whi ch is resolved. The patient's condition improved, and leukocytosis resolved; however, the patient w as noted to have increased thrombocytosis and was evaluated by Dr. Valdovinos in hematology/oncology cons ultation. Per review of the peripheral smear, there was no obvious evidence of mildly proliferative changes, dysplastic cell. The patient's thrombocytosis is most likely due to underlying inflammati on and sepsis. The patient was also evaluated and followed by Dr. Sandy for episodes of nausea and vomiting on admission which have resolved. The patient's condition overall improved, and the patie nt will be discharged to [facility] facility today. CONDITION ON DISCHARGE: Hemodynamically stable. ACTIVITY: As patient tolerates. DIET: Continue G-tube feeding. DISCHARGE MEDICATIONS: 1. Tylenol p.r.n. for pain, fever. 2. DuoNeb q. 4 hours for shortness of breath. 3. Lipitor. 4. Dulcolax. 5. Collagenase. 6. Cardizem 7. Lovenox. 8. Lasix. 9. Hypoglycemia protocol. 10. NovoLog per mild algorithm sliding scale. 11. Lantus 30 units subq daily at 8:00 p.m. 12. Prevacid. 13. Keppra. 14. Magnesium oxide. 15. Reglan. 16. Multivitamins. 17. Zofran p.r.n. for nausea 18. MiraLax p.r.n. for constipation. 19. Fleet Enema p.r.n. 20. Tramadol p.r.n. for pain. 21. Zinc sulfate. 22. Ascorbic acid. 23. ____ liquid. Interdisciplinary plan of care was established for this patient. Plan of care was discussed with Dr Janiya Hyman. Dictated By: DENA SALGUERO FIRE LIEUTENANT for LUZMA HYMAN MD SR/NTS Conf#: [id number] DID#: [id number]
== END 2017-04-02 22:22 | DRG 871 ==
LOC: E/R 21:07 → PP2 03-19 01:44 → ICU 03-22 10:55 → MS4 03-25 11:51 → PP2 03-28 12:28
PROVIDERS: ADMIT Internal Medicine; ATTEND Internal Medicine
PROC: 5A09357 Assistance with Respiratory Ventilation, Less than 24 Consecutive Hours, Continuous Positive Airway Pressure (ICD-10-PCS; principal; 2017-03-25)
DX: A41.9 Sepsis, unspecified organism (principal); J18.9 Pneumonia, unspecified organism; J96.91 Respiratory failure, unspecified with hypoxia; I50.33 Acute on chronic diastolic (congestive) heart failure; L89.153 Pressure ulcer of sacral region, stage 3; E11.43 Type 2 diabetes mellitus with diabetic autonomic (poly)neuropathy; K31.84 Gastroparesis; I11.0 Hypertensive heart disease with heart failure; I47.1 Supraventricular tachycardia; E83.42 Hypomagnesemia; L03.114 Cellulitis of left upper limb; E86.0 Dehydration; G40.909 Epilepsy, unspecified, not intractable, without status epilepticus; E78.5 Hyperlipidemia, unspecified; R13.10 Dysphagia, unspecified; Z93.1 Gastrostomy status; F20.9 Schizophrenia, unspecified; F31.9 Bipolar disorder, unspecified; E87.6 Hypokalemia; D47.3 Essential (hemorrhagic) thrombocythemia; B95.2 Enterococcus as the cause of diseases classified elsewhere; Z16.21 Resistance to vancomycin; I25.10 Atherosclerotic heart disease of native coronary artery without angina pectoris; D50.9 Iron deficiency anemia, unspecified; R94.5 Abnormal results of liver function studies; R11.2 Nausea with vomiting, unspecified; L89.620 Pressure ulcer of left heel, unstageable; L89.610 Pressure ulcer of right heel, unstageable; L89.892 Pressure ulcer of other site, stage 2; L89.890 Pressure ulcer of other site, unstageable
CPT/HCPCS: 36600; 71010; 71275; 73200; 74000; 80048; 80053; 80202; 81003; 82803; 82962; 83036; 83540; 83605; 83735; 84484; 85025; 85610; 85730; 86704; 86709; 86803; 87040; 87081; 87086; 87340; 93005; 93306; 93971; 94640; 94664; J1940; A4310; C9113; J0696; J0743; J1650; J1815; J1953; J2270; J2405; J2765; J3370; J3475; J3480; J7030; J7042; Q9967

== ENCOUNTER 2017-08-10 10:28 | Inpatient (IN) | payer MEDICARE, OTHER ==
[~2017-08-10] VITALS: Ht 152.4 cm; Wt 65.0 kg
[~2017-08-10 10:28] MED LIST changes: -AMIN30LI PO; -ASCO500C7 PO; +ASCO500S2 GTB; +ATOR40TA68 GTB; +CARSR60 GTB; +CRAN3875 GTB; -CRAN425C GTB; +CRAN425C2 GTB; +ENOX40DI2 SC; +FERR220S2 GTB; +FURO-110 GTB; +GLUC1KIT IJ; +KEP100S GTB; +MAGN400O4 GTB; -NOVO3I SC; +NPH,100I5 SQ; +ONDA4TAB8 GTB; -POTA20TA96 PO; +SENN-53 GTB; -TRAM-40 PO; +TRAM50TA2 GTB; +TYL500 GTB; +UDKCL40 GTB
[2017-08-10 10:41] VITALS: Ht 152.4 cm; Wt 65.0 kg
[2017-08-10] MEDS ORDERED: PIPER-TAZO 3.375 GM IV (PMX) 100 ML IVPB STA (11:17)
[2017-08-10] MEDS ORDERED: SODIUM CHLORIDE 0.9% 1L BAG IV* STA (11:17)
[2017-08-10] MEDS ORDERED: VANCOMYCIN 1 GM (PMX) 250 ML IVPB ONE (11:30)
[2017-08-10 12:42] LABS: ABNORMAL IP MESSAGE 1; BASOPHIL # 0.1 10^3/ul (0.0-0.1); BASOPHILS % 0.6 % (0.0-2.0); EOSINOPHILS # 0.4 10^3/ul (0.0-0.5); EOSINOPHILS % 2.9 % (0.0-7.0); HEMOGLOBIN 12.7 g/dl (12.0-16.0); LYMPHOCYTES # 2.3 10^3/ul (0.8-2.9); LYMPHOCYTES % 17.3 % (15.0-51.0); MEAN CORPUSCULAR HEMOGLOBIN 26.5 pg (29.0-33.0); MEAN CORPUSCULAR HGB CONC 30.2 g/dl (32.0-37.0); MEAN CORPUSCULAR VOLUME 87.7 fl (82.0-101.0); MEAN PLATELET VOLUME 9.5 fl (7.4-10.4); MONOCYTE # 0.6 10^3/ul (0.3-0.9); MONOCYTES % 4.2 % (0.0-11.0); NEUTROPHILS % 73.9 % (39.0-77.0); PLATELET COUNT 1088 10^3/UL (140-415); RED BLOOD COUNT 4.79 10^6/ul (4.20-5.40); RED CELL DISTRIBUTION WIDTH 17.4 % (11.5-14.5); WHITE BLOOD COUNT 13.2 10^3/ul (4.8-10.8)
[2017-08-10 12:49] LABS: POSITIVE DIFF @See below
[2017-08-10] MEDS ORDERED: NOVO3I SC (12:58)
[2017-08-10 12:59] LABS: ALANINE AMINOTRANSFERASE 31 IU/L (13-69); ALBUMIN 4.2 g/dl (3.3-4.9); ALBUMIN/GLOBULIN RATIO 0.84; ALKALINE PHOSPHATASE 245 IU/L (42-121); ANION GAP 20 (8-16); ASPARTATE AMINO TRANSFERASE 27 IU/L (15-46); BLOOD UREA NITROGEN 33 mg/dl (7-20); CALCIUM 10.5 mg/dl (8.4-10.2); CARBON DIOXIDE 31 mmol/L (21-31); CHLORIDE 94 mmol/L (97-110); CREATININE 0.59 mg/dl (0.44-1.00); GLUCOSE 147 mg/dl (70-220); POTASSIUM 4.9 mmol/L (3.5-5.1); SODIUM 140 mmol/L (135-144); TOTAL PROTEIN 9.2 g/dl (6.1-8.1)
[2017-08-10] MEDS ORDERED: OMEP20CA16 GTB (12:59)
[2017-08-10] MEDS ORDERED: UDREG GTB (13:00)
[2017-08-10] MEDS ORDERED: INSU300I SQ (13:01)
[2017-08-10 13:02] LABS: INR 0.94; PROTIME 12.6 Sec (12.2-14.2)
[2017-08-10] MEDS ORDERED: MAGN400T28 GTB (13:02)
[2017-08-10] MEDS ORDERED: BIMA5DRO BOTH EYES (13:02)
[2017-08-10 13:03] LABS: PARTIAL THROMBOPLASTIN TIME 28.3 Sec (25.0-35.0)
[2017-08-10] MEDS ORDERED: LEVE500S8 GTB (13:03)
[2017-08-10 13:10] LABS: ADD UMIC YES; UR AMORPHOUS CRYSTAL FEW /HPF (NONE SEEN); UR ASCORBIC ACID 40 mg/dL (NEGATIVE); UR BACTERIA FEW /HPF (NONE SEEN); UR BILIRUBIN (Dip) NEGATIVE (NEGATIVE); UR BLOOD (Dip) NEGATIVE (NEGATIVE); UR CLARITY TURBID (CLEAR); UR COLOR AMBER (YELLOW); UR GLUCOSE (Dip) NEGATIVE (NEGATIVE); UR KETONES (Dip) NEGATIVE (NEGATIVE); UR LEUKOCYTE ESTERASE (Dip) 3+ Leu/ul (NEGATIVE); UR MUCUS FEW /HPF (NONE SEEN); UR NITRITE (Dip) NEGATIVE (NEGATIVE); UR RBC 6 /HPF (0-5); UR SPECIFIC GRAVITY (Dip) 1.021 (1.003-1.030); UR SQUAMOUS EPITHELIAL CELL FEW /HPF (FEW); UR TOTAL PROTEIN (Dip) 2+ mg/dl (NEGATIVE); UR UROBILINOGEN (Dip) NEGATIVE (NEGATIVE); UR WBC CLUMPS MANY /HPF (NONE SEEN)
[2017-08-10 13:11] LABS: TROPONIN-I < 0.012 ng/ml (0.00-0.12)
[2017-08-10] MEDS ORDERED: DILTIAZE GTB (13:13)
[2017-08-10] MEDS ORDERED: MINE3.5O31 BOTH EYES (13:14)
[2017-08-10] MEDS ORDERED: ALBU2.5V3 NEB (13:15)
[2017-08-10] MEDS ORDERED: IOHEXOL 300MG/ML 150 ML BTL ONE (13:41)
[2017-08-10] MEDS ORDERED: SOD CHLORIDE 0.9% 100 ML ONE (13:41)
--- NOTE | 2017-08-10 14:22 | ERA ---
ER Documentation Chief Complaint Date/Time DATE: 08/10/17 TIME: 14:13 Chief Complaint eval of sacral ulcer HPI This 56-year-old female comes emergency room for her sacral ulcer draining fluid and pus. She has a stage IV decubitus ulcer for some time. Is complaining of increasing pain at the ulcer. She was sent in for that reason. However she is tachycardic on triage. She also states that she feels somewhat weak and tired. Denies fevers. States that she does have pain at the sacral site but does not want pain medication. Denies cough.Denies chest pain and shortness of breath. ROS All systems reviewed and are negative except as per history of present illness. Medications Home Meds Reported Medications Albuterol Sulfate* (Albuterol Sulfate* Neb) 0.083%-3 Ml Neb, 2.5 MG NEB Q4H Y for WHEEZING AND SOB, #30 VIAL 08/10/17 Artificial Tears* (Akwa Oint*) 3.5 Gm Oint, 1 APPLIC BOTH EYES HS, #1 TUB 08/10/17 [Diltiaze 12MG/Ml] No Conflict Check, 5 ML GTB Q8H for HTN HOLD IF SBP BELOW 110 OR HR BELOW 60 08/10/17 Levetiracetam* (Keppra*) 500 Mg/5 Ml Solution, 500 MG GTB BID, BOTTLE 08/10/17 Bimatoprost* (Lumigan*) 0.01%-5 Ml Opht Drops, 1 DROP BOTH EYES HS, EA 08/10/17 Magnesium Oxide* (Magnesium Oxide*) 400 Mg Tablet, 400 MG GTB TID, TAB 08/10/17 Insulin Glargine,Hum.rec.anlog (Toujeo Solostar) 300 Unit/1 Ml Insuln.pen, 40 UNIT SQ QHS 08/10/17 Metoclopramide* (Reglan*) 10 Mg/10 Ml Soln, 10 MG GTB Q6 Y for NAUSEA AND/OR VOMITING, ML 08/10/17 Omeprazole* (Omeprazole*) 20 Mg Capsule.dr, 20 MG GTB DAILY, #30 CAP 08/10/17 Insulin Aspart* (Novolog Insulin Pen*) 100 Unit/Ml Soln, 3 UNIT SC WITH MEALS, EA 08/10/17 Ondansetron Hcl* (Zofran*) 4 Mg Tablet, 4 MG GTB Q6H Y for NAUSEA AND OR VOMITING, TAB 03/19/17 Bisacodyl* (Bisacodyl*) 10 Mg Supp, 10 MG [place] DAILY Y for PRN, SUPP 03/18/17 Acetaminophen* (Tylenol*) 500 Mg Tab, 1000 MG GTB Q4H Y for PAIN LEVEL -05/11, TAB 03/18/17 Magnesium Hydroxide* (Milk Of Magnesia*) 400 Mg/5 Ml Oral.susp, 30 ML GTB QHS, ML 03/18/17 Atorvastatin* (Atorvastatin*) 40 Mg Tablet, 40 MG GTB QHS, #30 TAB 03/18/17 Furosemide* (Lasix*) 20 Mg Tablet, 20 MG GTB DAILY, TAB HOLD IF SBP BELOW 110 OR HR BELOW 60 03/18/17 Glucagon,Human Recombinant (Glucagon Emergency Kit) 1 Mg Kit, 1 MG IJ NEEDED , KIT FOR BS BELOW 70MG/DL [id number] PRN 03/18/17 Ferrous Sulfate (Ferrous Sulfate) 220 Mg/5 Ml Solution, 330 MG GTB BID 03/18/17 Tramadol HCl (Tramadol HCl) 50 Mg Tablet, 50 MG GTB BID, #60 TAB 03/18/17 Cran/Vitc/Mannose/Inulin/Brom (Uti-Stat Liquid) 3,875 Mg/30 Ml Liquid, 30 ML GTB BID 03/18/17 Ascorbic Acid* (Vitamin C* Liq) 500 Mg/5 Ml Syrup, 500 MG GTB TID, ML 03/18/17 Cranberry Extract (Cranberry) 425 Mg Capsule, 425 MG GTB BID, CAP 12/28/16 Acetaminophen* (Tylenol*) 325 Mg Tablet, 650 MG GTB Q4H Y for MILD PAIN LEVEL 1- 3, TAB FOR FEVER 100 AND ABOVE 12/03/16 Multivitamin with Minerals (Multivitamins with Minerals) 1 Each Tablet, 1 EACH GTB BID, TAB 12/03/16 Sod Phosphate/Sod Biphosphate* (Fleet* Enema Pediatric) 66.6 Ml Soln, 66.6 ML [place] Q24H Y for CONSTIPATION, ENEMA NEEDED 12/03/16 Docusate Sodium* (Colace*) 100 Mg Capsule, 200 MG GTB QHS, #30 CAP 12/03/16 Discontinued Reported Medications Sennosides* (Senna Lax*) 8.6 Mg Tablet, 2 TAB GTB QHS, TAB 03/18/17 NPH, Human Insulin Isophane (Humulin N Kwikpen) 100 Unit/1 Ml Insuln.pen, 8 UNIT SQ TID, EA 03/18/17 Enoxaparin Sodium* (Enoxaparin Sodium*) 40 Mg/0.4 Ml Syringe, 40 MG SC DAILY, SYR 03/18/17 Levetiracetam* (Keppra* (Ped)) 100 Mg/Ml Liq, 5 ML GTB BID for 30 Days, BOTTLE 03/18/17 Potassium Chloride* (KCl*) 40 Meq/30 Ml Soln, 40 MEQ GTB DAILY, MEQ 03/18/17 Diltiazem Hcl* (Cardizem SR*) 60 Mg Capsr, 60 MG GTB Q8H, #60 CAP HOLD IF SBP BELOW 110 OR HR BELOW 60 03/18/17 Zinc Sulfate* (Zinc Sulfate*) 220 Mg Tablet, 220 MG GTB DAILY, TAB 12/28/16 Allergies Allergies: Coded Allergies: No Known Allergy (Unverified , 08/10/17) PMhx/Soc History of Surgery: Yes (G tube placement, left hip ) Anesthesia Reaction: No Hx Neurological Disorder: Yes (Epilepsy, encephalopathy, CVA) Hx Respiratory Disorders: Yes (Pneumonitis) Hx Cardiac Disorders: Yes (CAD, HTN, DVT, anemia) Hx Psychiatric Problems: Yes (dementia, bipolar, schizophrenia) Hx Miscellaneous Medical Probl: Yes (pressure sore to sacrum) Hx Alcohol Use: No Hx Substance Use: No Hx Tobacco Use: No Smoking Status: Never smoker Physical Exam Vitals Vital Signs Date Time Temp Pulse Resp B/P Pulse Ox O2 Delivery O2 Flow Rate FiO2 08/10/17 13:01 116 20 135/58 98 Room Air 08/10/17 10:41 98.1 123 18 149/61 97 Physical Exam Const: [] .Moderate distress Head: Atraumatic Eyes: Normal Conjunctiva ENT: Normal External Ears, Nose and Mouth. Neck: Full range of motion..~ No meningismus. Resp: Clear to auscultation bilaterally Cardio: Regular Tachycardia, no murmurs Abd: Soft, non tender, non distended. Normal bowel sounds Skin: No petechiae or rashes Back: No midline or flank tenderness, Sacral decubitus ulcer that has a small opening that goes down to the sacrum. There is serous and possibly purulent fluid puddling on the decubitus ulcer she does lay on her stomach because she does not want to lay on her ulcer. Mild surrounding calor and mild erythema. No fluctuant areas. Ext: No cyanosis, or edema Neur: Awake and alert Psych: Normal Mood and Affect Result Diagram: 08/10/17 1220 08/10/17 1220 Results 24 hrs Laboratory Tests Test 08/10/17 12:20 08/10/17 12:35 White Blood Count 13.210^3/ul Red Blood Count 4.7910^6/ul Hemoglobin 12.7g/dl Hematocrit 42.0% Mean Corpuscular Volume 87.7fl Mean Corpuscular Hemoglobin 26.5pg Mean Corpuscular Hemoglobin Concent 30.2g/dl Red Cell Distribution Width 17.4% Platelet Count 976632^3/UL Mean Platelet Volume 9.5fl Neutrophils % 73.9% Lymphocytes % 17.3% Monocytes % 4.2% Eosinophils % 2.9% Basophils % 0.6% Nucleated Red Blood Cells % 0.0/100WBC Neutrophils # (Manual) 9.710^3/ul Lymphocytes # 2.310^3/ul Monocytes # 0.610^3/ul Eosinophils # 0.410^3/ul Basophils # 0.110^3/ul Nucleated Red Blood Cells # 0.010^3/ul Prothrombin Time 12.6Sec Prothrombin Time Ratio 1.0 INR International Normalized Ratio 0.94 Activated Partial Thromboplast Time 28.3Sec Sodium Level 140mmol/L Potassium Level 4.9mmol/L Chloride Level 94mmol/L Carbon Dioxide Level 31mmol/L Anion Gap 20 Blood Urea Nitrogen 33mg/dl Creatinine 0.59mg/dl Glucose Level 147mg/dl Lactic Acid Level 3.2mmol/L Calcium Level 10.5mg/dl Total Bilirubin 0.0mg/dl Direct Bilirubin 0.00mg/dl Indirect Bilirubin 0.0mg/dl Aspartate Amino Transf (AST/SGOT) 27IU/L Alanine Aminotransferase (ALT/SGPT) 31IU/L Alkaline Phosphatase 245IU/L Troponin I < 0.012ng/ml Total Protein 9.2g/dl Albumin 4.2g/dl Globulin 5.00g/dl Albumin/Globulin Ratio 0.84 Urine Color BRIGIDO Urine Clarity TURBID Urine pH 9.0 Urine Specific [place] 1.021 Urine Ketones NEGATIVEmg/dL Urine Nitrite NEGATIVEmg/dL Urine Bilirubin NEGATIVEmg/dL Urine Urobilinogen NEGATIVEmg/dL Urine Leukocyte Esterase 3+Angie/ul Urine Microscopic RBC 6/HPF Urine Microscopic WBC 49/HPF Urine Squamous Epithelial Cells FEW/HPF Urine Amorphous Crystals FEW/HPF Urine Bacteria FEW/HPF Urine Mucus FEW/HPF Urine Hemoglobin NEGATIVEmg/dL Urine Glucose NEGATIVEmg/dL Urine Total Protein 2+mg/dl Current Medications Medications (Trade) Dose Ordered Sig/Luigi Route PRN Reason Start Time Stop Time Status Last Admin Dose Admin Sodium Chloride 2020 ml 2,020 ml BOLUS OVER 2 HOURS STAT IV* 08/10/17 11:17 08/10/17 11:24 DC 08/10/17 12:48 Vancomycin HCl 250 ml @ 125 mls/hr ONCE ONCE IVPB 08/10/17 11:30 08/10/17 13:29 DC Piperacillin Sod/ Tazobactam Sod (Zosyn 3.375gm/ 100 ml (Pmx)) 100 ml @ 200 mls/hr ONCE STAT IVPB 08/10/17 11:17 08/10/17 11:46 DC 08/10/17 12:52 IV Flush 10 ml 10 ml STK-MED ONCE .ROUTE 08/10/17 13:41 08/10/17 13:42 DC 08/10/17 14:07 Sodium Chloride (NS) 100 ml @ ud STK-MED ONCE .ROUTE 08/10/17 13:41 08/10/17 13:42 DC 08/10/17 14:07 Iohexol (Omnipaque 300mg/ ml) 150 ml STK-MED ONCE .ROUTE 08/10/17 13:41 08/10/17 13:42 DC 08/10/17 14:07 Procedures/MDM Sepsis likely multifactorial secondary to both UTI and infected sacral decubitus ulcer. Says workup was performed with 30 cc/kg of IV fluid and immediate bank and Zosyn. Patient's heart rate remained slightly tachycardic but it decreased with fluid administration. She refused pain medicine. Spoke with Dr. Aly who accepts admission the patient to telemetry she is already aware of the decubitus ulcer and its complications. EKG interpretation: Sinus tachycardia rate of 116, left axis deviation, no ST or T-wave changes concerning for acute ischemia, normal EKG normal intervals clinical research monitor interpretation: Sinus tachycardia without other arrhythmia Sacral CAT scan interpretation: Results are still pending checking for deep tissue infection, bony involvement or abscess. Critical care time greater than 35 minutes: This excludes billable procedures. This does include management of sepsis with unstable vital signs, immediate antibiotic administration, careful fluid menstruation, chart reviewed, multiple space bedside to reassess status, discussion with patient, admitting doctor, [place] doctor's nurse practitioner Departure Diagnosis: Primary Impression: Sepsis secondary to UTI Additional Impressions: Thrombocytosis Infected decubitus ulcer Condition: Serious JAKE RDZ DO Aug 10, 2017 14:22
--- NOTE | 2017-08-10 14:27 | RADRPT ---
PROCEDURE: CT Lumbar Spine Without Contrast CLINICAL INDICATION: Stage IV sacral decubitus ulcer. Evaluate deep space infection. TECHNIQUE: Axial images were obtained of the lumbar spine with coronal and sagittal reconstruction s. No intravenous contrast was administered. CTDI 18 mGy, DLP 602 mGy*cm One or more of the following dose reduction techniques were used: Automated exposure control Adjustment of the mA and/or kV according to patient size. Use of iterative reconstruction technique. COMPARISON: None FINDINGS: There is a mild compression deformity of the T12 vertebral body. The lumbar vertebral body heights a re preserved. There are no acute fractures. No bony destructive changes are visualized within the christina mbar spine. There is slight left convex curvature of the lumbar spine. The paraspinal musculature is unremarkable. There is soft tissue thickening over the right lower sacrum with a sinus tract extending from the sk in to the bone. There are bony destructive changes with sclerosis within the lower sacrum eccentric to the right and within the coccyx likely corresponding with chronic osteomyelitis. There is soft ti ssue stranding and a small amount of gas within the soft tissues and small foci of fluid surrounding the right sacrum/coccyx. T11-T12: Normal disc height. No central canal or neural foraminal narrowing. T12-L1: Normal disc height. No central canal or neural foraminal narrowing. L1-L2: Normal disc height. No central canal or neural foraminal narrowing. L2-L3: Normal disc height. Minimal annular bulge but no central canal or neural foraminal narrowing . L3-L4: Minimal loss of disc height on the right due to the curvature. Minimal annular bulge but no central canal or neural foraminal narrowing. L4-L5: Minimal loss of disc height on the right due to the curvature. Mild annular bulge but no franklyn tral canal or neural foraminal narrowing. Mild to moderate bilateral facet arthropathy. L5-S1: Normal disc height. No annular bulge, central canal narrowing, or neural foraminal narrowing . Mild to moderate right and mild left facet arthropathy. There are atherosclerotic calcifications within the aorta. The bladder is distended with a Shields cat heter. Stool is noted throughout the colon. RPTAT: EE IMPRESSION: 1. Ulceration overlying the right lower sacrum / coccyx with a sinus tract extending from the skin t o the bone and findings of osteomyelitis with bony destructive changes involving the lower sacrum ec centric to the right and coccyx. Inflammation surrounding the lower sacrum and coccyx with fat stran ding, a small amount of gas, and a small amount of fluid in the soft tissues in which small abscesse s may be present. No large drainable abscess. 2. Mild compression deformity of the T12 vertebral body which may be chronic. 3. Mild/mild to moderate facet arthropathy within the lower lumbar spine. .Aishwarya Frias MD, MD Date Time Electronically viewed and signed by .Aishwarya Frias MD, on 08/10/2017 14:33 .T/
[2017-08-10] MEDS ORDERED: ACETAMINOPHEN 325 MG TAB PO PRN (14:30)
[2017-08-10] MEDS ORDERED: ONDANSETRON 4 MG INJ IV PRN (14:30)
[2017-08-10] MEDS ORDERED: ALBUTEROL 0.083% (NEB) 2.5 MG/3 ML AMP NEB PRN (16:00)
[2017-08-10] MEDS ORDERED: BISACODYL 10 MG SUPP PR PRN (16:00)
[2017-08-10] MEDS ORDERED: METOCLOPRAMIDE (1 MG/ML) 10 ML CUP GTB PRN (16:00)
[2017-08-10] MEDS ORDERED: ONDANSETRON 4 MG TAB GTB PRN (16:00)
--- NOTE | 2017-08-10 16:23 | HP ---
Date/Time of Note Date/Time of Note DATE: 08/10/17 TIME: 15:46 Assessment/Plan VTE Prophylaxis VTE Prophylaxis Intervention: other Assessment/Plan Assessment/Plan Sepsis secondary to UTI - ID consult - [place] Felipacharlee Thrombocytosis Infected decubitus ulcer - SX Consult -Dysphagia- sp G tube placement - Epilepsy - encephalopathy - CVA - CAD - HTN - DVT - anemia - dementia - bipolar - schizophrenia PLAN admit as inpatient HPI/ROS Admit Date/Time Admit Date/Time Hx of Present Illness HPI This 56-year-old female comes emergency room for her sacral ulcer draining fluid and pus. She has a stage IV decubitus ulcer for some time. Is complaining of increasing pain at the ulcer. She was sent in for that reason. However she is tachycardic on triage. She also states that she feels somewhat weak and tired. Denies fevers. States that she does have pain at the sacral site but does not want pain medication. Denies cough.Denies chest pain and shortness of breath. ROS All systems reviewed and are negative except as per history of present illness. PMH/Family/Social Past Medical History PMhx/Soc History of Surgery: Yes (G tube placement, left hip ) Anesthesia Reaction: No Hx Neurological Disorder: Yes (Epilepsy, encephalopathy, CVA) Hx Respiratory Disorders: Yes (Pneumonitis) Hx Cardiac Disorders: Yes (CAD, HTN, DVT, anemia) Hx Psychiatric Problems: Yes (dementia, bipolar, schizophrenia) Hx Miscellaneous Medical Probl: Yes (pressure sore to sacrum) Hx Alcohol Use: No Hx Substance Use: No Hx Tobacco Use: No Smoking Status: Never smoker Past Surgical History Past Surgical Hx: endoscopy Social History Smoking Status: Never smoker Exam/Review of Systems Vital Signs Vitals Vital Signs Date Time Temp Pulse Resp B/P Pulse Ox O2 Delivery O2 Flow Rate FiO2 08/10/17 13:01 116 20 135/58 98 Room Air 08/10/17 10:41 98.1 Labs Result Diagram: 08/10/17 1220 08/10/17 1220 MICHAEL COLINDRES Aug 10, 2017 16:06
[2017-08-10] MEDS ORDERED: GLUCAGON 1 MG INJ IM PRN (16:30)
[2017-08-10] MEDS ORDERED: GLUCOSE GEL 15 GRAM TUBE BUCCAL PRN (16:30)
[2017-08-10] MEDS ORDERED: GLUCOSE GEL 15 GRAM TUBE PO PRN ×2 (16:30)
[2017-08-10] MEDS ORDERED: DEXTROSE 50% 50 ML SYRINGE IV PRN (16:30)
[2017-08-10] MEDS ORDERED: VANCOMYCIN IV PER PHARMACY XX SCH (16:30)
[2017-08-10] MEDS ORDERED: NA PHOSPHATE/BIPHOS 133 ML ENEMA PR PRN (17:00)
[2017-08-10] MEDS ORDERED: INSULIN ASPART [NOVOLOG] 3 ML PEN SC SCH (18:00)
[2017-08-10 19:25] VITALS: TEMP 98.1
[2017-08-10 20:08] VITALS: PULSE 136
[2017-08-10 20:21] VITALS: BP 165/77; RESP 20
[2017-08-10] MEDS ORDERED: BIMATOPROST 0.01% 2.5 ML BTL BOTH EYES SCH (21:00)
[2017-08-10] MEDS: LEVETIRACETAM (100 MG/ML) 5ML CUP GTB SCH (22:58)
[2017-08-10] MEDS: FERROUS SULFATE 60 MG/ML 5ML CUP GTB SCH (22:58)
[2017-08-10] MEDS: DILTIAZEM 60 MG TAB GTB SCH (22:58)
[2017-08-10] MEDS: traMADol 50 MG TAB GTB SCH (22:59)
[2017-08-10] MEDS: MAGNESIUM HYDROXIDE 30ML CUP GTB SCH (23:00)
[2017-08-10] MEDS: LATANOPROST 0.005% 2.5 ML OPH BOTH EYES SCH (23:00)
[2017-08-10] MEDS: DOCUSATE SODIUM 10 MG/ML (10ML CUP) GTB SCH (23:00)
[2017-08-10] MEDS: ATORVASTATIN 40 MG TAB GTB SCH (23:00)
[2017-08-10] MEDS: MAGNESIUM OXIDE 400 MG TAB GTB SCH (23:00)
[2017-08-10] MEDS: ASCORBIC ACID 500 MG TAB GTB SCH (23:00)
[2017-08-10] MEDS: OCULAR LUBRICANT 3.5 GM OPH OINT BOTH EYES SCH (23:00)
[2017-08-10] MEDS: PIPER-TAZO 3.375 GM IV (PMX) 100 ML IVPB SCH (23:02)
[2017-08-10 23:36] VITALS: BP 156/84; RESP 20
[2017-08-11] VITALS (11 sets, daily range): BP systolic 118–166; BP diastolic 56–76; PULSE 114–137; RESP 16–20
[2017-08-11] MEDS: VANCOMYCIN 750 MG in SOD CHLORIDE 0.9% 150 ML IVPB SCH ×2 (00:22→12:44)
[2017-08-11] MEDS: DILTIAZEM 60 MG TAB GTB SCH ×3 (06:21→21:34)
[2017-08-11 06:22] LABS: ABNORMAL IP MESSAGE 1; BASOPHIL # 0.1 10^3/ul (0.0-0.1); BASOPHILS % 0.3 % (0.0-2.0); HEMATOCRIT 34.9 % (37.0-47.0); LYMPHOCYTES % 5.2 % (15.0-51.0); MEAN CORPUSCULAR HEMOGLOBIN 26.9 pg (29.0-33.0); MEAN CORPUSCULAR HGB CONC 31.5 g/dl (32.0-37.0); MEAN CORPUSCULAR VOLUME 85.3 fl (82.0-101.0); MONOCYTE # 0.7 10^3/ul (0.3-0.9); MONOCYTES % 3.6 % (0.0-11.0); NEUTROPHILS % 89.9 % (39.0-77.0); PLATELET COUNT 1120 10^3/UL (140-415); RED BLOOD COUNT 4.09 10^6/ul (4.20-5.40); RED CELL DISTRIBUTION WIDTH 17.4 % (11.5-14.5); WHITE BLOOD COUNT 18.8 10^3/ul (4.8-10.8)
[2017-08-11] MEDS: LANSOPRAZOLE 30 MG CAP GTB SCH (06:22)
[2017-08-11] MEDS: PIPER-TAZO 3.375 GM IV (PMX) 100 ML IVPB SCH ×2 (06:22→14:52)
[2017-08-11 06:33] LABS: POSITIVE DIFF @See below
[2017-08-11 06:44] LABS: CALCIUM 9.6 mg/dl (8.4-10.2); CREATININE 0.65 mg/dl (0.44-1.00); POTASSIUM 4.1 mmol/L (3.5-5.1)
[2017-08-11] MEDS ORDERED: INSULIN ASPART [NOVOLOG] 3 ML PEN SC SCH ×2 (07:30→07:55)
[2017-08-11] MEDS ORDERED: INSULIN GLARGINE [LANtus] 3 ML PEN SC ONE (07:30)
--- NOTE | 2017-08-11 08:15 | CONS ---
Date/Time of Note Date/Time of Note DATE: 08/11/17 TIME: 08:15 Assessment/Plan Assessment/Plan Chief Complaint/Hosp Course asked to consult. will be in shortly. thanks Problems: Consultation Date/Type/Reason Admit Date/Time Aug 10, 2017 at 14:12 Initial Consult Date Exam/Review of Systems Vital Signs Vitals Vital Signs Date Time Temp Pulse Resp B/P Pulse Ox O2 Delivery O2 Flow Rate FiO2 08/11/17 08:09 97.1 126 20 166/76 95 08/10/17 19:25 Room Air Results Result Diagram: 08/11/17 0543 08/11/17 0543 Results 24 hrs Laboratory Tests Test 08/10/17 12:20 08/10/17 12:35 08/10/17 15:10 08/10/17 17:30 White Blood Count 13.2 #H Red Blood Count 4.79 # Hemoglobin 12.7 Hematocrit 42.0 Mean Corpuscular Volume 87.7 Mean Corpuscular Hemoglobin 26.5 L Mean Corpuscular Hemoglobin Concent 30.2 L Red Cell Distribution Width 17.4 H Platelet Count 1088 #H Mean Platelet Volume 9.5 Neutrophils % 73.9 Lymphocytes % 17.3 Monocytes % 4.2 Eosinophils % 2.9 Basophils % 0.6 Nucleated Red Blood Cells % 0.0 Neutrophils # (Manual) 9.7 H Lymphocytes # 2.3 Monocytes # 0.6 Eosinophils # 0.4 Basophils # 0.1 Nucleated Red Blood Cells # 0.0 Prothrombin Time 12.6 Prothrombin Time Ratio 1.0 INR International Normalized Ratio 0.94 Activated Partial Thromboplast Time 28.3 Sodium Level 140 Potassium Level 4.9 Chloride Level 94 L Carbon Dioxide Level 31 Anion Gap 20 H Blood Urea Nitrogen 33 H Creatinine 0.59 Glucose Level 147 Lactic Acid Level 3.2 *H 2.0 5.0 *H Calcium Level 10.5 H Total Bilirubin 0.0 L Direct Bilirubin 0.00 Indirect Bilirubin 0.0 Aspartate Amino Transf (AST/SGOT) 27 Alanine Aminotransferase (ALT/SGPT) 31 Alkaline Phosphatase 245 H Troponin I < 0.012 Total Protein 9.2 H Albumin 4.2 Globulin 5.00 H Albumin/Globulin Ratio 0.84 Urine Color BRIGIDO Urine Clarity TURBID A Urine pH 9.0 Urine Specific [place] 1.021 Urine Ketones NEGATIVE Urine Nitrite NEGATIVE Urine Bilirubin NEGATIVE Urine Urobilinogen NEGATIVE Urine Leukocyte Esterase 3+ H Urine Microscopic RBC 6 H Urine Microscopic WBC 49 H Urine Squamous Epithelial Cells FEW Urine Amorphous Crystals FEW A Urine Bacteria FEW A Urine Mucus FEW A Urine Hemoglobin NEGATIVE Urine Glucose NEGATIVE Urine Total Protein 2+ H Test 08/11/17 05:43 08/11/17 06:55 White Blood Count 18.8 #H Red Blood Count 4.09 L Hemoglobin 11.0 L Hematocrit 34.9 L Mean Corpuscular Volume 85.3 Mean Corpuscular Hemoglobin 26.9 L Mean Corpuscular Hemoglobin Concent 31.5 L Red Cell Distribution Width 17.4 H Platelet Count 1120 H Mean Platelet Volume 10.0 Neutrophils % 89.9 H Lymphocytes % 5.2 L Monocytes % 3.6 Eosinophils % 0.0 Basophils % 0.3 Nucleated Red Blood Cells % 0.0 Neutrophils # (Manual) 16.9 H Lymphocytes # 1.0 Monocytes # 0.7 Eosinophils # 0.0 Basophils # 0.1 Nucleated Red Blood Cells # 0.0 Sodium Level 139 Potassium Level 4.1 Chloride Level 102 Carbon Dioxide Level 26 Anion Gap 15 Blood Urea Nitrogen 30 H Creatinine 0.65 Glucose Level 447 #*H Calcium Level 9.6 Bedside Glucose 456 *H Medications Medications Current Medications Acetaminophen (Tylenol Tab) 650 mg Q4H PRN GTB MILD PAIN LEVEL 1-3; Start at 16:00 Eye Lubricant (Akwa Oint) 1 applic HS BOTH EYES Last administered on 08/10/17 23:00; Admin Dose 1 APPLIC; Start 08/10/17 at 21:00 Ascorbic Acid (Vitamin C) 500 mg TID GTB Last administered on 08/10/17 23:00; Admin Dose 500 MG; Start 08/10/17 at 21:00 Atorvastatin Calcium (Lipitor) 40 mg QHS GTB Last administered on 08/10/17 23: 00; Admin Dose 40 MG; Start 08/10/17 at 21:00 Bisacodyl (Dulcolax Supp) 10 mg DAILY PRN [place] PRN; Start 08/10/17 at 16:00 Docusate Sodium (Colace Liquid Cup) 200 mg QHS GTB ; Start 08/10/17 at 21:00 Furosemide (Lasix) 20 mg DAILY GTB ; Start 08/11/17 at 09:00 Levetiracetam (Keppra Liquid) 500 mg BID GTB Last administered on 08/10/17 22: 58; Admin Dose 500 MG; Start 08/10/17 at 21:00 Magnesium Hydroxide (Milk Of Mag) 30 ml QHS GTB ; Start 08/10/17 at 21:00 Magnesium Oxide (Mag-Ox 400) 400 mg TID GTB Last administered on 08/10/17 23:00 ; Admin Dose 400 MG; Start 08/10/17 at 21:00 Metoclopramide HCl (Reglan Liq) 10 mg Q6H PRN GTB NAUSEA AND/OR VOMITING; Start 08/10/17 at 16:00 Ondansetron HCl (Zofran Tab) 4 mg Q6H PRN GTB NAUSEA AND/OR VOMITING; Start 08/10/17 at 16:00 Sodium Biphosphate/ Sodium Phosphate (Fleet Enema) 133 ml Q24H PRN [place] CONSTIPATION; Start 08/10/17 at 17:00 Tramadol HCl (Ultram) 50 mg BID GTB Last administered on 08/10/17 22:59; Admin Dose 50 MG; Start 08/10/17 at 21:00 Ferrous Sulfate (Feosol Liquid Cup) 300 mg BID GTB Last administered on 22:58; Admin Dose 300 MG; Start 08/10/17 at 21:00 Multivitamins Therapeutic (Theragran) 1 tab DAILY GTB ; Start 08/11/17 at 09:00 Lansoprazole (Prevacid) 30 mg DAILY@06 GTB Last administered on 08/11/17 06:22 ; Admin Dose 30 MG; Start 08/11/17 at 06:00 Diltiazem HCl (Cardizem) 60 mg Q8 GTB Last administered on 08/11/17 06:21; Admin Dose 60 MG; Start 08/10/17 at 22:00 Miscellaneous Information 1 ea NOTE XX ; Start 08/10/17 at 16:30 Glucose (Glutose) 15 gm Q15M PRN PO DECREASED GLUCOSE; Start 08/10/17 at 16:30 Glucose (Glutose) 22.5 gm Q15M PRN PO DECREASED GLUCOSE; Start 08/10/17 at 16:30 Dextrose (D50w Syringe) 25 ml Q15M PRN IV DECREASED GLUCOSE; Start 08/10/17 at 16:30 Dextrose (D50w Syringe) 50 ml Q15M PRN IV DECREASED GLUCOSE; Start 08/10/17 at 16:30 Glucagon (Glucagen) 1 mg Q15M PRN IM DECREASED GLUCOSE; Start 08/10/17 at 16:30 Glucose 15 gm 15 gm Q15M PRN BUCCAL DECREASED GLUCOSE; Start 08/10/17 at 16:30 Piperacillin Sod/ Tazobactam Sod 100 ml @ 200 mls/hr Q8 IVPB Last administered on 08/11/17 06:22; Admin Dose 200 MLS/HR; Start 08/10/17 at 22:00 Vancomycin HCl/ Sodium Chloride (Vancocin/NS) 150 ml @ 75 mls/hr Q12H IVPB Last administered on 08/11/17 00:22; Admin Dose 75 MLS/HR; Start 08/11/17 at 00 :00 Latanoprost (Xalatan) 1 drop HS BOTH EYES ; Start 08/10/17 at 21:00 Diagnostic Test (Pha) (Accu-Chek) 1 ea 02 XX ; Start 08/12/17 at 02:00 Diagnostic Test (Pha) (Accu-Chek) 1 ea 02 XX ; Start 08/12/17 at 02:00 Insulin Glargine (Lantus) 40 unit DAILY@20 SC ; Start 08/11/17 at 20:00 Insulin Aspart (Novolog Insulin Pen) (Adult SC Insulin - Mild Algorithm)... Q6 SC ; Start 08/11/17 at 12:00 BENITO THOMAS MD Aug 11, 2017 08:15
[2017-08-11] MEDS: MAGNESIUM OXIDE 400 MG TAB GTB SCH ×3 (09:51→21:33)
[2017-08-11] MEDS: LEVETIRACETAM (100 MG/ML) 5ML CUP GTB SCH ×2 (09:51→21:35)
[2017-08-11] MEDS: FERROUS SULFATE 60 MG/ML 5ML CUP GTB SCH ×2 (09:51→21:35)
[2017-08-11] MEDS: FUROSEMIDE 20 MG TAB GTB SCH (09:51)
[2017-08-11] MEDS: ASCORBIC ACID 500 MG TAB GTB SCH ×3 (09:52→21:33)
[2017-08-11] MEDS: MULTIVITAMINS THERAPEUTIC TAB GTB SCH (09:52)
[2017-08-11] MEDS: INSULIN ASPART [NOVOLOG] 3 ML PEN SC SCH ×5 (10:18→21:00)
[2017-08-11] MEDS: traMADol 50 MG TAB GTB SCH ×2 (10:23→21:33)
[2017-08-11] MEDS ORDERED: Insulin NOVOLOG SS MILD Algorithm (NPO/TPN/ENTERAL FEEDS) SC SCH (12:00)
[2017-08-11 14:08] LABS: ANISOCYTOSIS 2+ (0-0); BASOPHILS % (M) 1 % (0-2); METAMYELOCYTES %M 2 % (0-0); MICROCYTOSIS 1+ (0-0); MONOCYTES % (M) 10 % (0-11); MYELOCYTES % (M) 1 % (0-0); PLASMA CELLS #M 0.1 10^3/ul (0.0-0.0); PLASMAC%(M) 1 % (0); PLATELET ESTIMATE INCREASED; POIKILOCYTOSIS 1+ (0-0); POLYCHROMASIA 3+ (0-0)
--- NOTE | 2017-08-11 15:01 | RADRPT ---
PROCEDURE: XR Abdomen. CLINICAL INDICATION: Abdominal distension TECHNIQUE: Single AP view of the abdomen is available for review. COMPARISON: CT lumbar spine dated 08/10/2017, radiograph dated 03/24/2017 FINDINGS: Radiopaque catheter in the upper abdomen is likely a gastrostomy tube. Rounded lucency overlying inferior aspect of the urinary bladder as suggest presence of Shields cathet er. The bowel gas pattern is normal. There is no evidence of obstruction. There are no abnormal calcifications overlying the urinary tracts. No free air identified. Iodinated contrast is seen in the urinary bladder. Evaluation of the pelvis is limited due to contrast in the bladder. Urinary bladder is markedly distended measuring 15 x 14 cm with volume of greater than 1000 cc. The osseous structures do not demonstrate acute abnormality. Left total hip arthroplasty prosthesis demonstrates stable position. IMPRESSION: 1. No evidence of bowel obstruction, perforation or radiopaque calculi overlying the urinary tracts . 2. Markedly distended urinary bladder, suggesting urinary retention, despite presence of Shields cath eter. 3. Limited evaluation of the pelvis due to iodinated contrast in the urinary bladder. RPTAT: QQ .Tomer Garcia MD, Date Time Electronically viewed and signed by .Tomer Garcia MD, on 08/11/2017 15:01 .M/
[2017-08-11] MEDS: SOD CHLORIDE 0.45% 1,000 ML IV SCH (15:57)
--- NOTE | 2017-08-11 16:05 | CONS ---
Date/Time of Note Date/Time of Note DATE: 08/11/17 TIME: 15:19 Assessment/Plan Assessment/Plan Chief Complaint/Hosp Course 1. Sacral wound stage IV with osteomyelitis: -debridement -local care -iv abx per sensitivities -frequent turning and offloading -low airloss mattress -nutrition optimization -vitamin c/short term zinc 2. Vomiting with abdominal distention and ?sbo: KUB without evidence of obstruction; +bowel function: vomiting likely 2/2 rate of medication administration per nursing -slow medication administration per gtube: use gravity -monitor 3. UTI: -cath care -abx per sensitivities 4. Bacteremia -abx per sensitivities 5. Leukocytosis: likely 2/2 above -as above 6. Hypochromic anemia: no acute bleed noted -monitor and transfuse as needed -workup per medical team 7. Thrombocytosis: 2/2 infection vs. other -monitor and workup if persistent 8. DM/ Hyperglycemia: -blood sugar optimization 9. Elevated alk phos: 2/2 osteo vs. gi source (doubt) -monitor 10. HTN: -medical optimization 11. Dysphagia with feeding per feeding tube -cont tf with aspiration precautions 12. Hx. of bipolar disorder/schizophrenia -medical./psych management 13. History of epilepsy -sz precautions Thank you. Patient seen and examined in collaboration with Dr. Eric Tineo. Problems: Consultation Date/Type/Reason Admit Date/Time Aug 10, 2017 at 14:12 Date of Consultation: Aug 11, 2017 Type of Consultation: surgical Reason for Consultation wound, poss bowel obstruction Hx of Present Illness Lynne Cohen is a 56 yo woman with multiple comorbidities residing in a nursing facility who was admitted at [facility] for sepsis. She was noted to have a sacral wound as well as UTI upon admission which are the likely sources of her sepsis. Today however she was also noted to have abdominal distention with an episode of vomiting during medication administraton via gtube. She denies fevers chills, abdominal pain, nausea, hemetamesis, hematochezia, myalgias, dysuria and diarrhea. General surgery was called for evaluation and treatment. Constitutional: no complaints, other (confused) Eyes: No visual change ENT: No bleeding, No congestion Respiratory: No cough, No shortness of breath Cardiovascular: No chest pain, No edema, No lightheadedness, No palpitations Gastrointestinal: other (as above), vomiting Genitourinary: No dysuria, No flank pain, No hematuria Musculoskeletal: No bone/joint pain Skin: No bruising, No rash Neurologic: confusion (can answer simple questions) Psychological: confusion, nl mood/affect Past Medical History Epilepsy encephalopathy CVA Pneumonitis CAD HTN DVT anemia dementia bipolar schizophrenia decubitus ulcer DM Past Surgical History endoscopy gtube placement Past Surgical Hx: endoscopy Family History Significant Family History: no pertinent family hx Social History Smoking Status: Never smoker Exam/Review of Systems Vital Signs Vitals Vital Signs Date Time Temp Pulse Resp B/P Pulse Ox O2 Delivery O2 Flow Rate FiO2 08/11/17 11:45 98.0 125 19 165/74 93 08/10/17 19:25 Room Air Intake and Output 08/10/17 08/10/17 08/11/17 15:00 23:00 07:00 Intake Total 680 ml Output Total 300 ml Balance 380 ml Exam Constitutional: alert, oriented (to self), other (answers simple question) Psych: nl mood/affect Head: atraumatic, normocephalic Eyes: nl lids, nl sclera ENMT: mucosa pink and moist Neck: non-tender, supple Respiratory: normal air movement Cardiovascular: other (ST), regular rate and rhythm Gastrointestinal: bowel sounds, distended (MIN), non-tender, other (GTUBE), soft Genitourinary - Female: nl external genitalia Musculoskeletal: other (stiffness) Extremities: normal pulses, No edema Neurological: nl speech, No nl mental status (slow to respond), No nl strength Skin: other (multple wounds, sacral ulcer extending to bone periwound erythema , min drainage) Results Result Diagram: 08/11/17 0543 08/11/17 0543 Results 24 hrs Laboratory Tests Test 08/10/17 17:30 08/11/17 05:43 08/11/17 06:55 08/11/17 10:04 Lactic Acid Level 5.0 *H White Blood Count 18.8 #H Red Blood Count 4.09 L Hemoglobin 11.0 L Hematocrit 34.9 L Mean Corpuscular Volume 85.3 Mean Corpuscular Hemoglobin 26.9 L Mean Corpuscular Hemoglobin Concent 31.5 L Red Cell Distribution Width 17.4 H Platelet Count 1120 H Mean Platelet Volume 10.0 Neutrophils % 89.9 H Segmented Neutrophils % (Manual) 64 Lymphocytes % 5.2 L Lymphocytes % (Manual) 22 Monocytes % 3.6 Monocytes % (Manual) 10 Eosinophils % 0.0 Basophils % 0.3 Basophils % (Manual) 1 Metamyelocytes % (manual) 2 H Myelocytes % (Manual) 1 H Plasma Cells % (manual) 1 Nucleated Red Blood Cells % 0.0 Neutrophils # (Manual) Absolute Lymphocytes (Manual) 4.1 H Lymphocytes # 1.0 Monocytes # 0.7 Absolute Monocytes (Manual) 1.8 H Eosinophils # 0.0 Basophils # 0.1 Basophils # (Manual) 0.1 H Metamyelocytes # 0.3 H Myelocytes # 0.1 H Plasma Cells # (manual) 0.1 H Nucleated Red Blood Cells # 0.0 Platelet Estimate INCREASED Polychromasia 3+ Poikilocytosis 1+ Anisocytosis 2+ Microcytosis 1+ Sodium Level 139 Potassium Level 4.1 Chloride Level 102 Carbon Dioxide Level 26 Anion Gap 15 Blood Urea Nitrogen 30 H Creatinine 0.65 Glucose Level 447 #*H Calcium Level 9.6 Bedside Glucose 456 *H 467 *H Test 08/11/17 12:10 08/11/17 13:06 Bedside Glucose 305 H 251 H Medications Medications Current Medications Acetaminophen (Tylenol Tab) 650 mg Q4H PRN GTB MILD PAIN LEVEL 1-3; Start at 16:00 Eye Lubricant (Akwa Oint) 1 applic HS BOTH EYES Last administered on 08/10/17 23:00; Admin Dose 1 APPLIC; Start 08/10/17 at 21:00 Ascorbic Acid (Vitamin C) 500 mg TID GTB Last administered on 08/11/17 12:44; Admin Dose 500 MG; Start 08/10/17 at 21:00 Atorvastatin Calcium (Lipitor) 40 mg QHS GTB Last administered on 08/10/17 23: 00; Admin Dose 40 MG; Start 08/10/17 at 21:00 Bisacodyl (Dulcolax Supp) 10 mg DAILY PRN [place] PRN; Start 08/10/17 at 16:00 Docusate Sodium (Colace Liquid Cup) 200 mg QHS GTB ; Start 08/10/17 at 21:00 Furosemide (Lasix) 20 mg DAILY GTB Last administered on 08/11/17 09:51; Admin Dose 20 MG; Start 08/11/17 at 09:00 Levetiracetam (Keppra Liquid) 500 mg BID GTB Last administered on 08/11/17 09: 51; Admin Dose 500 MG; Start 08/10/17 at 21:00 Magnesium Hydroxide (Milk Of Mag) 30 ml QHS GTB ; Start 08/10/17 at 21:00 Magnesium Oxide (Mag-Ox 400) 400 mg TID GTB Last administered on 08/11/17 12: 44; Admin Dose 400 MG; Start 08/10/17 at 21:00 Metoclopramide HCl (Reglan Liq) 10 mg Q6H PRN GTB NAUSEA AND/OR VOMITING; Start 08/10/17 at 16:00 Ondansetron HCl (Zofran Tab) 4 mg Q6H PRN GTB NAUSEA AND/OR VOMITING; Start 08/10/17 at 16:00 Sodium Biphosphate/ Sodium Phosphate (Fleet Enema) 133 ml Q24H PRN [place] CONSTIPATION; Start 08/10/17 at 17:00 Tramadol HCl (Ultram) 50 mg BID GTB Last administered on 08/11/17 10:23; Admin Dose 50 MG; Start 08/10/17 at 21:00 Ferrous Sulfate (Feosol Liquid Cup) 300 mg BID GTB Last administered on 09:51; Admin Dose 300 MG; Start 08/10/17 at 21:00 Multivitamins Therapeutic (Theragran) 1 tab DAILY GTB Last administered on 08/11 09:52; Admin Dose 1 TAB; Start 08/11/17 at 09:00 Lansoprazole (Prevacid) 30 mg DAILY@06 GTB Last administered on 08/11/17 06:22 ; Admin Dose 30 MG; Start 08/11/17 at 06:00 Diltiazem HCl (Cardizem) 60 mg Q8 GTB Last administered on 08/11/17 14:52; Admin Dose 60 MG; Start 08/10/17 at 22:00 Miscellaneous Information 1 ea NOTE XX ; Start 08/10/17 at 16:30 Glucose (Glutose) 15 gm Q15M PRN PO DECREASED GLUCOSE; Start 08/10/17 at 16:30 Glucose (Glutose) 22.5 gm Q15M PRN PO DECREASED GLUCOSE; Start 08/10/17 at 16:30 Dextrose (D50w Syringe) 25 ml Q15M PRN IV DECREASED GLUCOSE; Start 08/10/17 at 16:30 Dextrose (D50w Syringe) 50 ml Q15M PRN IV DECREASED GLUCOSE; Start 08/10/17 at 16:30 Glucagon (Glucagen) 1 mg Q15M PRN IM DECREASED GLUCOSE; Start 08/10/17 at 16:30 Glucose 15 gm 15 gm Q15M PRN BUCCAL DECREASED GLUCOSE; Start 08/10/17 at 16:30 Piperacillin Sod/ Tazobactam Sod 100 ml @ 200 mls/hr Q8 IVPB Last administered on 08/11/17 14:52; Admin Dose 200 MLS/HR; Start 08/10/17 at 22:00 Vancomycin HCl/ Sodium Chloride (Vancocin/NS) 150 ml @ 75 mls/hr Q12H IVPB Last administered on 08/11/17 12:44; Admin Dose 75 MLS/HR; Start 08/11/17 at 00 :00 Latanoprost (Xalatan) 1 drop HS BOTH EYES ; Start 08/10/17 at 21:00 Diagnostic Test (Pha) (Accu-Chek) 1 ea 02 XX ; Start 08/12/17 at 02:00 Diagnostic Test (Pha) (Accu-Chek) 1 ea 02 XX ; Start 08/12/17 at 02:00 Insulin Aspart (Novolog Insulin Pen) (Adult SC Insulin - Mild Algorithm)... Q4 SC Last administered on 08/11/17 13:08; Admin Dose 3 UNIT; Start 08/11/17 at 10:13 Miscellaneous Information VANCOMYCIN TROUGH AT 2300 ONCE ONCE XX ; Start 08/11/17 at 23:00; Stop 08/11/17 at 23:01 Sodium Chloride (1/2 NS) 1,000 ml @ 75 mls/hr [id number] IV ; Start 08/11/17 at 13 :30 Metoprolol Tartrate (Lopressor) 25 mg BID GTB ; Start 08/11/17 at 21:00 Insulin Glargine (Lantus) 40 unit AM SC ; Start 08/12/17 at 09:00 SOREN LISA NP Aug 11, 2017 15:30
--- NOTE | 2017-08-11 16:05 | CONS ---
Date/Time of Note Date/Time of Note DATE: 08/11/17 TIME: 16:04 Assessment/Plan Assessment/Plan Chief Complaint/Hosp Course patient seen and examined. EMR was reviewed. Chandler/Jayjay. Full note to follow shortly. Problems: Consultation Date/Type/Reason Admit Date/Time Aug 10, 2017 at 14:12 Exam/Review of Systems Vital Signs Vitals Vital Signs Date Time Temp Pulse Resp B/P Pulse Ox O2 Delivery O2 Flow Rate FiO2 08/11/17 15:53 98.5 121 20 162/71 96 08/10/17 19:25 Room Air Intake and Output 08/10/17 08/10/17 08/11/17 15:00 23:00 07:00 Intake Total 680 ml Output Total 300 ml Balance 380 ml Results Result Diagram: 08/11/17 0543 08/11/17 0543 Results 24 hrs Laboratory Tests Test 08/10/17 17:30 08/11/17 05:43 08/11/17 06:55 08/11/17 10:04 Lactic Acid Level 5.0 *H White Blood Count 18.8 #H Red Blood Count 4.09 L Hemoglobin 11.0 L Hematocrit 34.9 L Mean Corpuscular Volume 85.3 Mean Corpuscular Hemoglobin 26.9 L Mean Corpuscular Hemoglobin Concent 31.5 L Red Cell Distribution Width 17.4 H Platelet Count 1120 H Mean Platelet Volume 10.0 Neutrophils % 89.9 H Segmented Neutrophils % (Manual) 64 Lymphocytes % 5.2 L Lymphocytes % (Manual) 22 Monocytes % 3.6 Monocytes % (Manual) 10 Eosinophils % 0.0 Basophils % 0.3 Basophils % (Manual) 1 Metamyelocytes % (manual) 2 H Myelocytes % (Manual) 1 H Plasma Cells % (manual) 1 Nucleated Red Blood Cells % 0.0 Neutrophils # (Manual) Absolute Lymphocytes (Manual) 4.1 H Lymphocytes # 1.0 Monocytes # 0.7 Absolute Monocytes (Manual) 1.8 H Eosinophils # 0.0 Basophils # 0.1 Basophils # (Manual) 0.1 H Metamyelocytes # 0.3 H Myelocytes # 0.1 H Plasma Cells # (manual) 0.1 H Nucleated Red Blood Cells # 0.0 Platelet Estimate INCREASED Polychromasia 3+ Poikilocytosis 1+ Anisocytosis 2+ Microcytosis 1+ Sodium Level 139 Potassium Level 4.1 Chloride Level 102 Carbon Dioxide Level 26 Anion Gap 15 Blood Urea Nitrogen 30 H Creatinine 0.65 Glucose Level 447 #*H Calcium Level 9.6 Bedside Glucose 456 *H 467 *H Test 08/11/17 12:10 08/11/17 13:06 Bedside Glucose 305 H 251 H Medications Medications Current Medications Acetaminophen (Tylenol Tab) 650 mg Q4H PRN GTB MILD PAIN LEVEL 1-3; Start at 16:00 Eye Lubricant (Akwa Oint) 1 applic HS BOTH EYES Last administered on 08/10/17 23:00; Admin Dose 1 APPLIC; Start 08/10/17 at 21:00 Ascorbic Acid (Vitamin C) 500 mg TID GTB Last administered on 08/11/17 12:44; Admin Dose 500 MG; Start 08/10/17 at 21:00 Atorvastatin Calcium (Lipitor) 40 mg QHS GTB Last administered on 08/10/17 23: 00; Admin Dose 40 MG; Start 08/10/17 at 21:00 Bisacodyl (Dulcolax Supp) 10 mg DAILY PRN [place] PRN; Start 08/10/17 at 16:00 Docusate Sodium (Colace Liquid Cup) 200 mg QHS GTB ; Start 08/10/17 at 21:00 Furosemide (Lasix) 20 mg DAILY GTB Last administered on 08/11/17 09:51; Admin Dose 20 MG; Start 08/11/17 at 09:00 Levetiracetam (Keppra Liquid) 500 mg BID GTB Last administered on 08/11/17 09: 51; Admin Dose 500 MG; Start 08/10/17 at 21:00 Magnesium Hydroxide (Milk Of Mag) 30 ml QHS GTB ; Start 08/10/17 at 21:00 Magnesium Oxide (Mag-Ox 400) 400 mg TID GTB Last administered on 08/11/17 12: 44; Admin Dose 400 MG; Start 08/10/17 at 21:00 Metoclopramide HCl (Reglan Liq) 10 mg Q6H PRN GTB NAUSEA AND/OR VOMITING; Start 08/10/17 at 16:00 Ondansetron HCl (Zofran Tab) 4 mg Q6H PRN GTB NAUSEA AND/OR VOMITING; Start 08/10/17 at 16:00 Sodium Biphosphate/ Sodium Phosphate (Fleet Enema) 133 ml Q24H PRN [place] CONSTIPATION; Start 08/10/17 at 17:00 Tramadol HCl (Ultram) 50 mg BID GTB Last administered on 08/11/17 10:23; Admin Dose 50 MG; Start 08/10/17 at 21:00 Ferrous Sulfate (Feosol Liquid Cup) 300 mg BID GTB Last administered on 09:51; Admin Dose 300 MG; Start 08/10/17 at 21:00 Multivitamins Therapeutic (Theragran) 1 tab DAILY GTB Last administered on 08/11 09:52; Admin Dose 1 TAB; Start 08/11/17 at 09:00 Lansoprazole (Prevacid) 30 mg DAILY@06 GTB Last administered on 08/11/17 06:22 ; Admin Dose 30 MG; Start 08/11/17 at 06:00 Diltiazem HCl (Cardizem) 60 mg Q8 GTB Last administered on 08/11/17 14:52; Admin Dose 60 MG; Start 08/10/17 at 22:00 Miscellaneous Information 1 ea NOTE XX ; Start 08/10/17 at 16:30 Glucose (Glutose) 15 gm Q15M PRN PO DECREASED GLUCOSE; Start 08/10/17 at 16:30 Glucose (Glutose) 22.5 gm Q15M PRN PO DECREASED GLUCOSE; Start 08/10/17 at 16:30 Dextrose (D50w Syringe) 25 ml Q15M PRN IV DECREASED GLUCOSE; Start 08/10/17 at 16:30 Dextrose (D50w Syringe) 50 ml Q15M PRN IV DECREASED GLUCOSE; Start 08/10/17 at 16:30 Glucagon (Glucagen) 1 mg Q15M PRN IM DECREASED GLUCOSE; Start 08/10/17 at 16:30 Glucose 15 gm 15 gm Q15M PRN BUCCAL DECREASED GLUCOSE; Start 08/10/17 at 16:30 Piperacillin Sod/ Tazobactam Sod 100 ml @ 200 mls/hr Q8 IVPB Last administered on 08/11/17 14:52; Admin Dose 200 MLS/HR; Start 08/10/17 at 22:00 Vancomycin HCl/ Sodium Chloride (Vancocin/NS) 150 ml @ 75 mls/hr Q12H IVPB Last administered on 08/11/17 12:44; Admin Dose 75 MLS/HR; Start 08/11/17 at 00 :00 Latanoprost (Xalatan) 1 drop HS BOTH EYES ; Start 08/10/17 at 21:00 Diagnostic Test (Pha) (Accu-Chek) 1 ea 02 XX ; Start 08/12/17 at 02:00 Diagnostic Test (Pha) (Accu-Chek) 1 ea 02 XX ; Start 08/12/17 at 02:00 Insulin Aspart (Novolog Insulin Pen) (Adult SC Insulin - Mild Algorithm)... Q4 SC Last administered on 08/11/17 13:08; Admin Dose 3 UNIT; Start 08/11/17 at 10:13 Miscellaneous Information VANCOMYCIN TROUGH AT 2300 ONCE ONCE XX ; Start 08/11/17 at 23:00; Stop 08/11/17 at 23:01 Sodium Chloride (1/2 NS) 1,000 ml @ 75 mls/hr [id number] IV Last administered on 08/11/17 15:57; Admin Dose 75 MLS/HR; Start 08/11/17 at 13:30 Metoprolol Tartrate (Lopressor) 25 mg BID GTB ; Start 08/11/17 at 21:00 Insulin Glargine (Lantus) 40 unit AM SC ; Start 08/12/17 at 09:00 BENITO THOMAS MD Aug 11, 2017 16:05
[2017-08-11] MEDS ORDERED: SILVER NITRATE SWAB TOP ONE (16:30)
--- NOTE | 2017-08-11 17:10 | CONS ---
Date/Time of Note Date/Time of Note DATE: 08/11/17 TIME: 16:46 Thank you for asking me to participate in this patients care. Assessment/Plan Assessment/Plan Problems: (1) Diabetes mellitus, type 2 Status: Chronic Comment: Suboptimal control likely due to insufficient insulin coverage while on continuous tube feeds. May also partly be due to sepsis from infected sacral decubitus ulcer and UTI. Qualifiers: Additional Assessment/Plan Contiue Lantus as basal coverage. Will discontinue Novolog and change to Humulin Regular for longer coverage while on tube feeds Consultation Date/Type/Reason Admit Date/Time Aug 10, 2017 at 14:12 Date of Consultation: Aug 11, 2017 Type of Consultation: Endocrine Reason for Consultation Diabetes Management Referring Provider: LUZMA HYMAN MD Hx of Present Illness 56 year old woman brought in to [facility] at [facility] from a assisted facility where patient resides. Patient with multiple comorbidities found to have a UTI and a stage IV infected decubitus ulcer. Admitted for sepsis. Noted to have uncontrolled blood glucose levels into the 400 range. Patient was receiving continuous tube feeds thru her G tube which has been temporarily suspended as work up for possible obstruction going on. I have been asked to see patient in consultation for management of blood glucose levels. Patient poor historian Subjective hx not possible: other Constitutional: no complaints, other (confused) Eyes: No visual change ENT: No bleeding, No congestion Respiratory: No cough, No shortness of breath Cardiovascular: No chest pain, No edema, No lightheadedness, No palpitations Gastrointestinal: other (as above), vomiting Genitourinary: No dysuria, No flank pain, No hematuria Musculoskeletal: No bone/joint pain Skin: No bruising, No rash Neurologic: confusion (can answer simple questions) Psychological: nl mood/affect Past Medical History Epilepsy encephalopathy CVA Pneumonitis DVT anemia dementia bipolar schizophrenia decubitus ulcer Medical History: coronary artery disease, diabetes, hypertension Past Surgical History G tube placement Past Surgical Hx: endoscopy Family History Significant Family History: other (None known) Social History Unknown Smoking Status: Never smoker Exam/Review of Systems Vital Signs Vitals Vital Signs Date Time Temp Pulse Resp B/P Pulse Ox O2 Delivery O2 Flow Rate FiO2 08/11/17 15:53 98.5 121 20 162/71 96 08/10/17 19:25 Room Air Intake and Output 08/10/17 08/10/17 08/11/17 15:00 23:00 07:00 Intake Total 680 ml Output Total 300 ml Balance 380 ml Exam Constitutional: alert Head: normocephalic Eyes: EOMI, PERRL, nl conjunctiva ENMT: mucosa pink and moist Neck: supple Respiratory: clear to auscultation Cardiovascular: other (Sinus Tachycardia) Gastrointestinal: non-tender, other (G tube in place), rebound or guarding ( none), soft Extremities: clubbing (none), edema (none) Neurological: other (bilaterally rotated and slightly contracted) Skin: nl turgor Results POC glucose reviewed. Result Diagram: 08/11/1743 08/11/1743 Results 24 hrs Laboratory Tests Test 08/10/17 17:30 08/11/17 05:43 08/11/17 06:55 08/11/17 10:04 Lactic Acid Level 5.0 *H White Blood Count 18.8 #H Red Blood Count 4.09 L Hemoglobin 11.0 L Hematocrit 34.9 L Mean Corpuscular Volume 85.3 Mean Corpuscular Hemoglobin 26.9 L Mean Corpuscular Hemoglobin Concent 31.5 L Red Cell Distribution Width 17.4 H Platelet Count 1120 H Mean Platelet Volume 10.0 Neutrophils % 89.9 H Segmented Neutrophils % (Manual) 64 Lymphocytes % 5.2 L Lymphocytes % (Manual) 22 Monocytes % 3.6 Monocytes % (Manual) 10 Eosinophils % 0.0 Basophils % 0.3 Basophils % (Manual) 1 Metamyelocytes % (manual) 2 H Myelocytes % (Manual) 1 H Plasma Cells % (manual) 1 Nucleated Red Blood Cells % 0.0 Neutrophils # (Manual) Absolute Lymphocytes (Manual) 4.1 H Lymphocytes # 1.0 Monocytes # 0.7 Absolute Monocytes (Manual) 1.8 H Eosinophils # 0.0 Basophils # 0.1 Basophils # (Manual) 0.1 H Metamyelocytes # 0.3 H Myelocytes # 0.1 H Plasma Cells # (manual) 0.1 H Nucleated Red Blood Cells # 0.0 Platelet Estimate INCREASED Polychromasia 3+ Poikilocytosis 1+ Anisocytosis 2+ Microcytosis 1+ Sodium Level 139 Potassium Level 4.1 Chloride Level 102 Carbon Dioxide Level 26 Anion Gap 15 Blood Urea Nitrogen 30 H Creatinine 0.65 Glucose Level 447 #*H Calcium Level 9.6 Bedside Glucose 456 *H 467 *H Test 08/11/17 12:10 08/11/17 13:06 Bedside Glucose 305 H 251 H Medications Medications Current Medications Acetaminophen (Tylenol Tab) 650 mg Q4H PRN GTB MILD PAIN LEVEL 1-3; Start at 16:00 Eye Lubricant (Akwa Oint) 1 applic HS BOTH EYES Last administered on 08/10/17 23:00; Admin Dose 1 APPLIC; Start 08/10/17 at 21:00 Ascorbic Acid (Vitamin C) 500 mg TID GTB Last administered on 08/11/17 12:44; Admin Dose 500 MG; Start 08/10/17 at 21:00 Atorvastatin Calcium (Lipitor) 40 mg QHS GTB Last administered on 08/10/17 23: 00; Admin Dose 40 MG; Start 08/10/17 at 21:00 Bisacodyl (Dulcolax Supp) 10 mg DAILY PRN [place] PRN; Start 08/10/17 at 16:00 Docusate Sodium (Colace Liquid Cup) 200 mg QHS GTB ; Start 08/10/17 at 21:00 Furosemide (Lasix) 20 mg DAILY GTB Last administered on 08/11/17 09:51; Admin Dose 20 MG; Start 08/11/17 at 09:00 Levetiracetam (Keppra Liquid) 500 mg BID GTB Last administered on 08/11/17 09: 51; Admin Dose 500 MG; Start 08/10/17 at 21:00 Magnesium Hydroxide (Milk Of Mag) 30 ml QHS GTB ; Start 08/10/17 at 21:00 Magnesium Oxide (Mag-Ox 400) 400 mg TID GTB Last administered on 08/11/17 12: 44; Admin Dose 400 MG; Start 08/10/17 at 21:00 Metoclopramide HCl (Reglan Liq) 10 mg Q6H PRN GTB NAUSEA AND/OR VOMITING; Start 08/10/17 at 16:00 Ondansetron HCl (Zofran Tab) 4 mg Q6H PRN GTB NAUSEA AND/OR VOMITING; Start 08/10/17 at 16:00 Sodium Biphosphate/ Sodium Phosphate (Fleet Enema) 133 ml Q24H PRN [place] CONSTIPATION; Start 08/10/17 at 17:00 Tramadol HCl (Ultram) 50 mg BID GTB Last administered on 08/11/17 10:23; Admin Dose 50 MG; Start 08/10/17 at 21:00 Ferrous Sulfate (Feosol Liquid Cup) 300 mg BID GTB Last administered on 09:51; Admin Dose 300 MG; Start 08/10/17 at 21:00 Multivitamins Therapeutic (Theragran) 1 tab DAILY GTB Last administered on 08/11 09:52; Admin Dose 1 TAB; Start 08/11/17 at 09:00 Lansoprazole (Prevacid) 30 mg DAILY@06 GTB Last administered on 08/11/17 06:22 ; Admin Dose 30 MG; Start 08/11/17 at 06:00 Diltiazem HCl (Cardizem) 60 mg Q8 GTB Last administered on 08/11/17 14:52; Admin Dose 60 MG; Start 08/10/17 at 22:00 Miscellaneous Information 1 ea NOTE XX ; Start 08/10/17 at 16:30 Glucose (Glutose) 15 gm Q15M PRN PO DECREASED GLUCOSE; Start 08/10/17 at 16:30 Glucose (Glutose) 22.5 gm Q15M PRN PO DECREASED GLUCOSE; Start 08/10/17 at 16:30 Dextrose (D50w Syringe) 25 ml Q15M PRN IV DECREASED GLUCOSE; Start 08/10/17 at 16:30 Dextrose (D50w Syringe) 50 ml Q15M PRN IV DECREASED GLUCOSE; Start 08/10/17 at 16:30 Glucagon (Glucagen) 1 mg Q15M PRN IM DECREASED GLUCOSE; Start 08/10/17 at 16:30 Glucose 15 gm 15 gm Q15M PRN BUCCAL DECREASED GLUCOSE; Start 08/10/17 at 16:30 Vancomycin HCl/ Sodium Chloride (Vancocin/NS) 150 ml @ 75 mls/hr Q12H IVPB Last administered on 08/11/17 12:44; Admin Dose 75 MLS/HR; Start 08/11/17 at 00 :00 Latanoprost (Xalatan) 1 drop HS BOTH EYES ; Start 08/10/17 at 21:00 Diagnostic Test (Pha) (Accu-Chek) 1 ea 02 XX ; Start 08/12/17 at 02:00 Diagnostic Test (Pha) (Accu-Chek) 1 ea 02 XX ; Start 08/12/17 at 02:00 Insulin Aspart (Novolog Insulin Pen) (Adult SC Insulin - Mild Algorithm)... Q4 SC Last administered on 08/11/17 13:08; Admin Dose 3 UNIT; Start 08/11/17 at 10:13 Miscellaneous Information VANCOMYCIN TROUGH AT 2300 ONCE ONCE XX ; Start 08/11/17 at 23:00; Stop 08/11/17 at 23:01 Sodium Chloride (1/2 NS) 1,000 ml @ 75 mls/hr [id number] IV Last administered on 08/11/17 15:57; Admin Dose 75 MLS/HR; Start 08/11/17 at 13:30 Metoprolol Tartrate (Lopressor) 25 mg BID GTB ; Start 08/11/17 at 21:00 Insulin Glargine 40 unit 40 unit AM SC ; Start 08/12/17 at 09:00 Meropenem/Sodium Chloride (Merrem/NS) 100 ml @ 200 mls/hr Q8 IVPB ; Start 08/11 at 22:00 Sodium Hypochlorite (Dakin'S (1/4 Strength)) 1 applic BID IRR ; Start 08/11/17 at 21:00 JABARI MCKINNEY MD Aug 11, 2017 16:58
[2017-08-11] MEDS ORDERED: INSULIN REGULAR, HUMAN 100 UNIT/1 ML 3ML VIAL SC SCH (18:00)
--- NOTE | 2017-08-11 19:09 | CONS ---
DATE OF ADMISSION: 08/10/2017 DATE OF CONSULTATION: 08/11/2017 HISTORY OF PRESENT ILLNESS: Dear Dr. Aly, thank you for the referral. Patient is an unfortunate 56-year-old female with a history of CVA, brought to the emergency room for decubitus ulcer. She was evaluated in the ER which showed deep ulceration penetrating into the bones creating osteomyelitis, and there was a small abscess formation which was undrainable. A GI consult was called in for a fecal impaction. She had 1 episode of emesis this afternoon. She vomited almost 500 mL of gastric content, non bloody. No chest pain. No shortness of breath. No or [employer] problem. PAST MEDICAL HISTORY: Seizure disorder, schizophrenia, dementia, bipolar, CVA, hypertension, history of DVT, anemia, left hip surgery, epilepsy and has got a G-tube. SOCIAL HISTORY: No history of smoking or drinking. She is a [facility] a [facility]. PHYSICAL EXAMINATION: GENERAL APPEARANCE: Awake, alert, thin built, not in distress. VITAL SIGNS: Stable. HEENT: Unremarkable. NECK: Supple. No thyromegaly. No lymphadenopathy. HEART: No murmur, gallop, or click. LUNGS: Clear. ABDOMEN: Benign. EXTREMITIES: No edema. NEUROLOGIC: Grossly within normal limits. LABORATORY: WBCs 18,000, some premature cells were seen on the peripheral smear. Hematocrit dropped from 42 to 34. Glucose was 251, BUN 30, creatinine is 0.65. Calcium was high 10.5, alkaline phosphatase elevated to 245. The patient had a KUB done today and urinary bladder was distended suggestive of urinary retention. Small gas pattern appeared normal. IMPRESSION: 1. Sepsis, most probably related to urinary tract infection due to the bladder outlet obstruction. 2. Decubitus ulcer infected with osteomyelitis. 3. Epilepsy. 4. Encephalopathy. 5. Cerebrovascular accident. 6. Coronary artery disease. 7. Hypertension. 8. Anemia. 9. Dementia. 10. Schizophrenia. 11. Severe constipation. PLAN: At this point is to start the patient on stool softener, Amitiza, Shields catheter needs to be changed which is the cause of bladder outlet obstruction resulting in the UTI and sepsis. Dictated By: Nils Sandy MD /[email or web address]/[email or web address] /Document#: [id number]
[2017-08-11] MEDS ORDERED: INSULIN GLARGINE [LANtus] 3 ML PEN SC SCH (20:00)
--- NOTE | 2017-08-11 20:09 | PN ---
Date/Time of Note Date/Time of Note DATE: 08/11/17 TIME: 19:17 Assessment/Plan Lines/Catheters IV Catheter Type (from Nrs): Peripheral IV Central line still needed: Yes Urinary Cath still in place: Yes Reason Cath still needed: urinary retention Assessment/Plan Assessment/Plan -Sepsis secondary to UTI - admit as inpatient - ID consult --Infected decubitus ulcer - per SX Consult - plan for bed side debridement tomorrow - UTI - Cont antibiotics -Thrombocytosis - Hematology consult- Dr WOLF - Anemia -Dysphagia- sp G tube placement - aspiration precautions - Epilepsy - seizure precautions - encephalopathy - CVA - CAD - Hypertension - Hx DVT - dementia - bipolar - schizophrenia - SCDs for DVT Prophylaxis.Will wait for Lovenox- Anticipating surgical intervention. Plan of care dw Dr Salvador/staff Exam/Review of Systems Vital Signs Vitals Vital Signs Date Time Temp Pulse Resp B/P Pulse Ox O2 Delivery O2 Flow Rate FiO2 08/11/17 16:00 121 08/11/17 15:53 98.5 20 162/71 96 08/10/17 19:25 Room Air Intake and Output 08/10/17 08/10/17 08/11/17 15:00 23:00 07:00 Intake Total 680 ml Output Total 300 ml Balance 380 ml Results Result Diagram: 08/11/17 0543 08/11/17 0543 Results 24 hrs Laboratory Tests Test 08/11/17 05:43 08/11/17 06:55 08/11/17 10:04 08/11/17 12:10 White Blood Count 18.8 #H Red Blood Count 4.09 L Hemoglobin 11.0 L Hematocrit 34.9 L Mean Corpuscular Volume 85.3 Mean Corpuscular Hemoglobin 26.9 L Mean Corpuscular Hemoglobin Concent 31.5 L Red Cell Distribution Width 17.4 H Platelet Count 1120 H Mean Platelet Volume 10.0 Neutrophils % 89.9 H Segmented Neutrophils % (Manual) 64 Lymphocytes % 5.2 L Lymphocytes % (Manual) 22 Monocytes % 3.6 Monocytes % (Manual) 10 Eosinophils % 0.0 Basophils % 0.3 Basophils % (Manual) 1 Metamyelocytes % (manual) 2 H Myelocytes % (Manual) 1 H Plasma Cells % (manual) 1 Nucleated Red Blood Cells % 0.0 Neutrophils # (Manual) Absolute Lymphocytes (Manual) 4.1 H Lymphocytes # 1.0 Monocytes # 0.7 Absolute Monocytes (Manual) 1.8 H Eosinophils # 0.0 Basophils # 0.1 Basophils # (Manual) 0.1 H Metamyelocytes # 0.3 H Myelocytes # 0.1 H Plasma Cells # (manual) 0.1 H Nucleated Red Blood Cells # 0.0 Platelet Estimate INCREASED Polychromasia 3+ Poikilocytosis 1+ Anisocytosis 2+ Microcytosis 1+ Sodium Level 139 Potassium Level 4.1 Chloride Level 102 Carbon Dioxide Level 26 Anion Gap 15 Blood Urea Nitrogen 30 H Creatinine 0.65 Glucose Level 447 #*H Calcium Level 9.6 Bedside Glucose 456 *H 467 *H 305 H Test 08/11/17 13:06 08/11/17 17:05 Bedside Glucose 251 H 201 Medications Medications Current Medications Acetaminophen (Tylenol Tab) 650 mg Q4H PRN GTB MILD PAIN LEVEL 1-3; Start at 16:00 Eye Lubricant (Akwa Oint) 1 applic HS BOTH EYES Last administered on 08/10/17 23:00; Admin Dose 1 APPLIC; Start 08/10/17 at 21:00 Ascorbic Acid (Vitamin C) 500 mg TID GTB Last administered on 08/11/17 12:44; Admin Dose 500 MG; Start 08/10/17 at 21:00 Atorvastatin Calcium (Lipitor) 40 mg QHS GTB Last administered on 08/10/17 23: 00; Admin Dose 40 MG; Start 08/10/17 at 21:00 Bisacodyl (Dulcolax Supp) 10 mg DAILY PRN MA PRN; Start 08/10/17 at 16:00 Docusate Sodium (Colace Liquid Cup) 200 mg QHS GTB ; Start 08/10/17 at 21:00 Furosemide (Lasix) 20 mg DAILY GTB Last administered on 08/11/17 09:51; Admin Dose 20 MG; Start 08/11/17 at 09:00 Levetiracetam (Keppra Liquid) 500 mg BID GTB Last administered on 08/11/17 09: 51; Admin Dose 500 MG; Start 08/10/17 at 21:00 Magnesium Hydroxide (Milk Of Mag) 30 ml QHS GTB ; Start 08/10/17 at 21:00 Magnesium Oxide (Mag-Ox 400) 400 mg TID GTB Last administered on 08/11/17 12: 44; Admin Dose 400 MG; Start 08/10/17 at 21:00 Metoclopramide HCl (Reglan Liq) 10 mg Q6H PRN GTB NAUSEA AND/OR VOMITING; Start 08/10/17 at 16:00 Ondansetron HCl (Zofran Tab) 4 mg Q6H PRN GTB NAUSEA AND/OR VOMITING; Start 08/10/17 at 16:00 Sodium Biphosphate/ Sodium Phosphate (Fleet Enema) 133 ml Q24H PRN MA CONSTIPATION; Start 08/10/17 at 17:00 Tramadol HCl (Ultram) 50 mg BID GTB Last administered on 08/11/17 10:23; Admin Dose 50 MG; Start 08/10/17 at 21:00 Ferrous Sulfate (Feosol Liquid Cup) 300 mg BID GTB Last administered on 09:51; Admin Dose 300 MG; Start 08/10/17 at 21:00 Multivitamins Therapeutic (Theragran) 1 tab DAILY GTB Last administered on 08/11 09:52; Admin Dose 1 TAB; Start 08/11/17 at 09:00 Lansoprazole (Prevacid) 30 mg DAILY@06 GTB Last administered on 08/11/17 06:22 ; Admin Dose 30 MG; Start 08/11/17 at 06:00 Diltiazem HCl (Cardizem) 60 mg Q8 GTB Last administered on 08/11/17 14:52; Admin Dose 60 MG; Start 08/10/17 at 22:00 Miscellaneous Information 1 ea NOTE XX ; Start 08/10/17 at 16:30 Glucose (Glutose) 15 gm Q15M PRN PO DECREASED GLUCOSE; Start 08/10/17 at 16:30 Glucose (Glutose) 22.5 gm Q15M PRN PO DECREASED GLUCOSE; Start 08/10/17 at 16:30 Dextrose (D50w Syringe) 25 ml Q15M PRN IV DECREASED GLUCOSE; Start 08/10/17 at 16:30 Dextrose (D50w Syringe) 50 ml Q15M PRN IV DECREASED GLUCOSE; Start 08/10/17 at 16:30 Glucagon (Glucagen) 1 mg Q15M PRN IM DECREASED GLUCOSE; Start 08/10/17 at 16:30 Glucose 15 gm 15 gm Q15M PRN BUCCAL DECREASED GLUCOSE; Start 08/10/17 at 16:30 Vancomycin HCl/ Sodium Chloride (Vancocin/NS) 150 ml @ 75 mls/hr Q12H IVPB Last administered on 08/11/17 12:44; Admin Dose 75 MLS/HR; Start 08/11/17 at 00 :00 Latanoprost (Xalatan) 1 drop HS BOTH EYES ; Start 08/10/17 at 21:00 Diagnostic Test (Pha) (Accu-Chek) 1 ea 02 XX ; Start 08/12/17 at 02:00 Diagnostic Test (Pha) (Accu-Chek) 1 ea 02 XX ; Start 08/12/17 at 02:00 Insulin Aspart (Novolog Insulin Pen) (Adult SC Insulin - Mild Algorithm)... Q4 SC Last administered on 08/11/17 17:13; Admin Dose 2 UNIT; Start 08/11/17 at 10:13 Miscellaneous Information VANCOMYCIN TROUGH AT 2300 ONCE ONCE XX ; Start 08/11/17 at 23:00; Stop 08/11/17 at 23:01 Sodium Chloride (1/2 NS) 1,000 ml @ 75 mls/hr [id number] IV Last administered on 08/11/17 15:57; Admin Dose 75 MLS/HR; Start 08/11/17 at 13:30 Metoprolol Tartrate (Lopressor) 25 mg BID GTB ; Start 08/11/17 at 21:00 Insulin Glargine 40 unit 40 unit AM SC ; Start 08/12/17 at 09:00 Meropenem/Sodium Chloride (Merrem/NS) 100 ml @ 200 mls/hr Q8 IVPB ; Start 08/11 at 22:00 Sodium Hypochlorite (Dakin'S (1/4 Strength)) 1 applic BID IRR ; Start 08/11/17 at 21:00 Insulin Aspart (Novolog Insulin Pen) 4 unit Q6 SC Last administered on 18:32; Admin Dose 4 UNIT; Start 08/11/17 at 18:00 MICHAEL COLINDRES Aug 11, 2017 20:08
[2017-08-11] MEDS: DOCUSATE SODIUM 10 MG/ML (10ML CUP) GTB SCH (21:00)
[2017-08-11] MEDS: MAGNESIUM HYDROXIDE 30ML CUP GTB SCH (21:00)
--- NOTE | 2017-08-11 21:08 | RADRPT ---
PROCEDURE: Bilateral upper extremity venous ultrasound CLINICAL INDICATION: Bilateral upper extremity pain and swelling. Deep venous thrombosis. TECHNIQUE: Newell scale, color doppler, spectral doppler ultrasound imaging of the venous system of the bilateral upper extremities. Augmentation maneuvers were utilized. COMPARISON: 03/23/2017 FINDINGS: RIGHT: Internal jugular vein: Patent. Subclavian vein: Patent. Axillary vein: Patent. Brachial vein: Patent. Basilic vein: Patent. Cephalic vein: Thrombus is present. Radial vein: Patent. Ulnar vein: Patent. LEFT: Internal jugular vein: Patent. Subclavian vein: Patent. Axillary vein: Patent. Brachial vein: Patent. Basilic vein: Patent. Cephalic vein: Patent. Radial vein: Patent. Ulnar vein: Patent. IMPRESSION: No evidence of a deep vein thrombosis involving the bilateral upper extremities. Superficial venous thrombosis involving the right cephalic vein appears to be associated with intrav enous catheter. RPTAT: AADD .Suhail Lopez MD, MD Date Time Electronically viewed and signed by .Suhail Lopez MD, on 08/11/2017 21:08 .B/
--- NOTE | 2017-08-11 21:16 | RADRPT ---
PROCEDURE: Ultrasound of the bilateral lower extremity venous system. CLINICAL INDICATION: Bilateral leg pain and swelling, deep venous thrombosis TECHNIQUE: Newell scale with and without compression, color doppler, spectral doppler of the venous system of the bilateral lower extremities was performed. Venous augmentation maneuvers were utilized . COMPARISON: 12/13/2016 FINDINGS: RIGHT: Common femoral vein: Patent. Femoral vein: Proximal and mid segments are patent. Distal segment suboptimally visualized. Popliteal vein: Patent. Calf veins: Patent. No soft tissue abnormalities are identified. LEFT: Common femoral vein: Patent. Femoral vein: Patent. Popliteal vein: Patent. Calf veins: Patent. No soft tissue abnormalities are identified. IMPRESSION: No evidence of a deep vein thrombosis within the bilateral lower extremities. RPTAT: AADD .Suhail Lopez MD, Date Time Electronically viewed and signed by .Suhail Lopez MD, on 08/11/2017 21:15 .B/
[2017-08-11] MEDS: ATORVASTATIN 40 MG TAB GTB SCH (21:33)
[2017-08-11] MEDS: OCULAR LUBRICANT 3.5 GM OPH OINT BOTH EYES SCH (21:33)
[2017-08-11] MEDS: METOPROLOL 25 MG TAB GTB SCH (21:35)
[2017-08-11] MEDS: MEROPENEM 2 GM in SOD CHLORIDE 0.9% 100 ML IVPB SCH (21:38)
[2017-08-11] MEDS: LATANOPROST 0.005% 2.5 ML OPH BOTH EYES SCH (21:41)
--- NOTE | 2017-08-11 22:37 | CONS ---
Date/Time of Note Date/Time of Note DATE: 08/11/17 TIME: 22:15 Assessment/Plan Assessment/Plan Chief Complaint/Hosp Course 56 yo with #Thrombocytosis -Pt has a marked Thrombocytosis in the setting of a chronically infected decubitus ulcer and osteomyelitis -patient's leukocytosis is most likely reactive in nature and secondary to patient chronic inflammation -will review peripheral smear and send FLORENTINO 2 mutation analysis to ensure this is no underling myeloproliferative disorder -will monitor platelet count as patient continues antibiotics but given that patient has osteomyelitis, I expect it will take weeks for the platelet count to decline as patient gets treated #Leukocytosis -as stated above, this is likely reactive -will evaluate for myeloproliferative disorder and review peripheral smear #Sacral decubitus ulcer with osteomyelitis -continue antibiotics -will check ESR -f/u ID recommendations Problems: Consultation Date/Type/Reason Admit Date/Time Aug 10, 2017 at 14:12 Date of Consultation: Aug 11, 2017 Type of Consultation: Hematology Reason for Consultation Thrombocytosis Referring Provider: LUZMA HYMAN MD Hx of Present Illness 56 year old woman with diabetes, who is a resident of [facility] who was brought to [facility] ER with sepsis thought secondary to an infected decubitus ulcer and UTI. Upon exam in the ER there is deep ulceration of the decubitus ulcer as in is penetrating into the bones creating osteomyelitis and abscess formation. Pt has since been started on antibiotics including vancomycin and meropenem. Since admission pt has been noted to have a marked thrombocytosis with a platelet count. We have been consulted for further workup. Constitutional: no complaints, other (confused) Eyes: No visual change ENT: No bleeding, No congestion Respiratory: No cough, No shortness of breath Cardiovascular: No chest pain, No edema, No lightheadedness, No palpitations Gastrointestinal: other (as above), vomiting Genitourinary: No dysuria, No flank pain, No hematuria Musculoskeletal: No bone/joint pain Skin: No bruising, No rash Neurologic: confusion (can answer simple questions) Psychological: nl mood/affect Past Medical History Epilepsy encephalopathy CVA Pneumonitis DVT anemia dementia bipolar schizophrenia decubitus ulcer Medical History: coronary artery disease, diabetes, hypertension Past Surgical History Past Surgical Hx: endoscopy Family History Significant Family History: no pertinent family hx Social History Alcohol Use: none Smoking Status: Never smoker Drug Use: none Exam/Review of Systems Vital Signs Vitals Vital Signs Date Time Temp Pulse Resp B/P Pulse Ox O2 Delivery O2 Flow Rate FiO2 08/11/17 20:50 114 08/11/17 20:31 98.2 16 118/56 92 08/10/17 19:25 Room Air Intake and Output 08/10/17 08/10/17 08/11/17 15:00 23:00 07:00 Intake Total 680 ml Output Total 300 ml Balance 380 ml Exam Constitutional: alert, oriented Psych: no complaints Head: normocephalic Eyes: nl conjunctiva ENMT: nl external ears & nose Neck: supple Respiratory: clear to auscultation Cardiovascular: regular rate and rhythm Gastrointestinal: other ( g tube in place) Extremities: normal pulses Results Result Diagram: 08/11/17 0543 08/11/1743 Results 24 hrs Laboratory Tests Test 08/11/17 05:43 08/11/17 06:55 08/11/17 10:04 08/11/17 12:10 White Blood Count 18.8 #H Red Blood Count 4.09 L Hemoglobin 11.0 L Hematocrit 34.9 L Mean Corpuscular Volume 85.3 Mean Corpuscular Hemoglobin 26.9 L Mean Corpuscular Hemoglobin Concent 31.5 L Red Cell Distribution Width 17.4 H Platelet Count 1120 H Mean Platelet Volume 10.0 Neutrophils % 89.9 H Segmented Neutrophils % (Manual) 64 Lymphocytes % 5.2 L Lymphocytes % (Manual) 22 Monocytes % 3.6 Monocytes % (Manual) 10 Eosinophils % 0.0 Basophils % 0.3 Basophils % (Manual) 1 Metamyelocytes % (manual) 2 H Myelocytes % (Manual) 1 H Plasma Cells % (manual) 1 Nucleated Red Blood Cells % 0.0 Neutrophils # (Manual) Absolute Lymphocytes (Manual) 4.1 H Lymphocytes # 1.0 Monocytes # 0.7 Absolute Monocytes (Manual) 1.8 H Eosinophils # 0.0 Basophils # 0.1 Basophils # (Manual) 0.1 H Metamyelocytes # 0.3 H Myelocytes # 0.1 H Plasma Cells # (manual) 0.1 H Nucleated Red Blood Cells # 0.0 Platelet Estimate INCREASED Polychromasia 3+ Poikilocytosis 1+ Anisocytosis 2+ Microcytosis 1+ Sodium Level 139 Potassium Level 4.1 Chloride Level 102 Carbon Dioxide Level 26 Anion Gap 15 Blood Urea Nitrogen 30 H Creatinine 0.65 Glucose Level 447 #*H Calcium Level 9.6 Bedside Glucose 456 *H 467 *H 305 H Test 08/11/17 13:06 08/11/17 17:05 08/11/17 21:31 Bedside Glucose 251 H 201 73 Medications Medications Current Medications Acetaminophen (Tylenol Tab) 650 mg Q4H PRN GTB MILD PAIN LEVEL 1-3; Start at 16:00 Eye Lubricant (Akwa Oint) 1 applic HS BOTH EYES Last administered on 08/11/17 21:33; Admin Dose 1 APPLIC; Start 08/10/17 at 21:00 Ascorbic Acid (Vitamin C) 500 mg TID GTB Last administered on 08/11/17 21:33; Admin Dose 500 MG; Start 08/10/17 at 21:00 Atorvastatin Calcium (Lipitor) 40 mg QHS GTB Last administered on 08/11/17 21: 33; Admin Dose 40 MG; Start 08/10/17 at 21:00 Bisacodyl (Dulcolax Supp) 10 mg DAILY PRN MT PRN; Start 08/10/17 at 16:00 Docusate Sodium (Colace Liquid Cup) 200 mg QHS GTB ; Start 08/10/17 at 21:00 Furosemide (Lasix) 20 mg DAILY GTB Last administered on 08/11/17 09:51; Admin Dose 20 MG; Start 08/11/17 at 09:00 Levetiracetam (Keppra Liquid) 500 mg BID GTB Last administered on 08/11/17 21: 35; Admin Dose 500 MG; Start 08/10/17 at 21:00 Magnesium Hydroxide (Milk Of Mag) 30 ml QHS GTB ; Start 08/10/17 at 21:00 Magnesium Oxide (Mag-Ox 400) 400 mg TID GTB Last administered on 08/11/17 21: 33; Admin Dose 400 MG; Start 08/10/17 at 21:00 Metoclopramide HCl (Reglan Liq) 10 mg Q6H PRN GTB NAUSEA AND/OR VOMITING; Start 08/10/17 at 16:00 Ondansetron HCl (Zofran Tab) 4 mg Q6H PRN GTB NAUSEA AND/OR VOMITING; Start 08/10/17 at 16:00 Sodium Biphosphate/ Sodium Phosphate (Fleet Enema) 133 ml Q24H PRN MT CONSTIPATION; Start 08/10/17 at 17:00 Tramadol HCl (Ultram) 50 mg BID GTB Last administered on 08/11/17 21:33; Admin Dose 50 MG; Start 08/10/17 at 21:00 Ferrous Sulfate (Feosol Liquid Cup) 300 mg BID GTB Last administered on 21:35; Admin Dose 300 MG; Start 08/10/17 at 21:00 Multivitamins Therapeutic (Theragran) 1 tab DAILY GTB Last administered on 08/11 09:52; Admin Dose 1 TAB; Start 08/11/17 at 09:00 Lansoprazole (Prevacid) 30 mg DAILY@06 GTB Last administered on 08/11/17 06:22 ; Admin Dose 30 MG; Start 08/11/17 at 06:00 Diltiazem HCl (Cardizem) 60 mg Q8 GTB Last administered on 08/11/17 21:34; Admin Dose 60 MG; Start 08/10/17 at 22:00 Miscellaneous Information 1 ea NOTE XX ; Start 08/10/17 at 16:30 Glucose (Glutose) 15 gm Q15M PRN PO DECREASED GLUCOSE; Start 08/10/17 at 16:30 Glucose (Glutose) 22.5 gm Q15M PRN PO DECREASED GLUCOSE; Start 08/10/17 at 16:30 Dextrose (D50w Syringe) 25 ml Q15M PRN IV DECREASED GLUCOSE; Start 08/10/17 at 16:30 Dextrose (D50w Syringe) 50 ml Q15M PRN IV DECREASED GLUCOSE; Start 08/10/17 at 16:30 Glucagon (Glucagen) 1 mg Q15M PRN IM DECREASED GLUCOSE; Start 08/10/17 at 16:30 Glucose 15 gm 15 gm Q15M PRN BUCCAL DECREASED GLUCOSE; Start 08/10/17 at 16:30 Vancomycin HCl/ Sodium Chloride (Vancocin/NS) 150 ml @ 75 mls/hr Q12H IVPB Last administered on 08/11/17 12:44; Admin Dose 75 MLS/HR; Start 08/11/17 at 00 :00 Latanoprost (Xalatan) 1 drop HS BOTH EYES Last administered on 08/11/17 21:41 ; Admin Dose 1 DROP; Start 08/10/17 at 21:00 Diagnostic Test (Pha) (Accu-Chek) 1 ea 02 XX ; Start 08/12/17 at 02:00 Diagnostic Test (Pha) (Accu-Chek) 1 ea 02 XX ; Start 08/12/17 at 02:00 Insulin Aspart (Novolog Insulin Pen) (Adult SC Insulin - Mild Algorithm)... Q4 SC Last administered on 08/11/17 17:13; Admin Dose 2 UNIT; Start 08/11/17 at 10:13 Miscellaneous Information VANCOMYCIN TROUGH AT 2300 ONCE ONCE XX ; Start 08/11/17 at 23:00; Stop 08/11/17 at 23:01 Sodium Chloride (1/2 NS) 1,000 ml @ 75 mls/hr [id number] IV Last administered on 08/11/17 15:57; Admin Dose 75 MLS/HR; Start 08/11/17 at 13:30 Metoprolol Tartrate (Lopressor) 25 mg BID GTB Last administered on 08/11/17 21 :35; Admin Dose 25 MG; Start 08/11/17 at 21:00 Insulin Glargine 40 unit 40 unit AM SC ; Start 08/12/17 at 09:00 Meropenem/Sodium Chloride (Merrem/NS) 100 ml @ 200 mls/hr Q8 IVPB Last administered on 08/11/17 21:38; Admin Dose 200 MLS/HR; Start 08/11/17 at 22:00 Sodium Hypochlorite (Dakin'S (1/4 Strength)) 1 applic BID IRR ; Start 08/11/17 at 21:00 Insulin Aspart (Novolog Insulin Pen) 4 unit Q6 SC Last administered on 18:32; Admin Dose 4 UNIT; Start 08/11/17 at 18:00 NANCY CAMPBELL M.D. Aug 11, 2017 22:26
[2017-08-11] MEDS: SODIUM HYPOCHLORITE 0.125% 473 ML BTL IRR SCH (23:00)
[2017-08-12] VITALS (11 sets, daily range): BP systolic 107–126; BP diastolic 51–59; PULSE 95–113; RESP 16–19
[2017-08-12] MEDS: INSULIN ASPART [NOVOLOG] 3 ML PEN SC SCH ×11 (00:52→23:57)
[2017-08-12] MEDS: DEXTROSE 50% 50 ML SYRINGE IV PRN ×2 (00:58→17:48)
[2017-08-12] MEDS: VANCOMYCIN 750 MG in SOD CHLORIDE 0.9% 150 ML IVPB SCH (01:42)
[2017-08-12] MEDS: ACCU-CHEK XX SCH ×2 (02:02)
[2017-08-12] MEDS: LANSOPRAZOLE 30 MG CAP GTB SCH (06:11)
[2017-08-12] MEDS: DILTIAZEM 60 MG TAB GTB SCH ×3 (06:11→21:45)
[2017-08-12] MEDS: MEROPENEM 2 GM in SOD CHLORIDE 0.9% 100 ML IVPB SCH (06:11)
[2017-08-12 06:44] LABS: ABNORMAL IP MESSAGE 1; BASOPHIL # 0.1 10^3/ul (0.0-0.1); BASOPHILS % 0.3 % (0.0-2.0); EOSINOPHILS # 0.4 10^3/ul (0.0-0.5); EOSINOPHILS % 1.7 % (0.0-7.0); HEMATOCRIT 28.6 % (37.0-47.0); HEMOGLOBIN 8.5 g/dl (12.0-16.0); LYMPHOCYTES # 1.7 10^3/ul (0.8-2.9); LYMPHOCYTES % 6.9 % (15.0-51.0); MEAN CORPUSCULAR HGB CONC 29.7 g/dl (32.0-37.0); MEAN CORPUSCULAR VOLUME 87.5 fl (82.0-101.0); MEAN PLATELET VOLUME 9.8 fl (7.4-10.4); MONOCYTE # 0.8 10^3/ul (0.3-0.9); MONOCYTES % 3.2 % (0.0-11.0); NEUTROPHILS % 87.2 % (39.0-77.0); RED BLOOD COUNT 3.27 10^6/ul (4.20-5.40); RED CELL DISTRIBUTION WIDTH 18.6 % (11.5-14.5); WHITE BLOOD COUNT 24.6 10^3/ul (4.8-10.8)
[2017-08-12 06:46] LABS: PLATELET COUNT 757 10^3/UL (140-415); POSITIVE DIFF @See below
[2017-08-12 07:24] LABS: CALCIUM 8.8 mg/dl (8.4-10.2); CREATININE 0.6 mg/dl (0.44-1.00); POTASSIUM 3.3 mmol/L (3.5-5.1)
--- NOTE | 2017-08-12 08:42 | PN ---
Date/Time of Note Date/Time of Note DATE: 08/12/17 TIME: 08:35 Assessment/Plan Lines/Catheters IV Catheter Type (from [facility]): Peripheral IV Shields in Place (from [facility]): Yes Assessment/Plan Chief Complaint/Hosp Course 1. Sacral wound stage IV with osteomyelitis: -debridement when medically improved -local care -iv abx per sensitivities -frequent turning and offloading -low airloss mattress -nutrition optimization -vitamin c/short term zinc 2. Vomiting with abdominal distention and ?sbo: KUB without evidence of obstruction; +bowel function: vomiting likely 2/2 rate of medication administration per nursing; No n/v currently -slow medication administration per gtube: use gravity -monitor 3. UTI: cultures noted -cath care -abx per sensitivities 4. Bacteremia -abx per sensitivities 5. Leukocytosis: likely 2/2 above; wbc up -as above 6. Hypochromic anemia: no acute bleed noted -monitor and transfuse as needed -workup per medical team 7. Thrombocytosis: 2/2 infection vs. other; improving -monitor and workup if persistent 8. DM/ Hyperglycemia: -blood sugar optimization 9. Elevated alk phos: 2/2 osteo vs. gi source (doubt) -monitor 10. HTN: -medical optimization 11. Dysphagia with feeding per feeding tube -cont tf with aspiration precautions 12. Hx. of bipolar disorder/schizophrenia -medical./psych management 13. History of epilepsy -sz precautions Thank you. Patient seen and examined in collaboration with Dr. Eric Tineo. Problems: Subjective 24 Hr Interval Summary Leukocytosis worsened. Min temps overnight. Tachycardia. Wound with min drainage. No chills, abdominal pain, n/v/d/dysuria, cp, palpitations, new wounds. +bowel function. Tolerating tf. Exam/Review of Systems Vital Signs Vitals Vital Signs Date Time Temp Pulse Resp B/P Pulse Ox O2 Delivery O2 Flow Rate FiO2 08/12/17 04:45 99.0 65 16 107/51 91 08/12/17 00:00 Nasal Cannula 2.0 Intake and Output 08/11/17 08/11/17 08/12/17 15:00 23:00 07:00 Intake Total 150 ml 855 ml 1170 ml Output Total 500 ml 350 ml 1500 ml Balance -350 ml 505 ml -330 ml Exam Free Text/Dictation Constitutional: alert, oriented (to self), other (answers simple question), warm Psych: nl mood/affect Head: atraumatic, normocephalic Eyes: nl lids, nl sclera ENMT: mucosa pink and moist Neck: non-tender, supple Respiratory: normal air movement Cardiovascular: other (ST), regular rate and rhythm Gastrointestinal: bowel sounds, distended (MIN), non-tender, other (GTUBE), soft Genitourinary - Female: nl external genitalia Musculoskeletal: other (stiffness) Extremities: normal pulses, No edema Neurological: nl speech, No nl mental status (slow to respond), No nl strength Skin: other (multple wounds, sacral ulcer packed with periwound erythema, min drainage) Results Result Diagram: 08/12/1760108/12/17601 SOREN LISA NP Aug 12, 2017 08:42
[2017-08-12] MEDS: SOD CHLORIDE 0.45% 1,000 ML IV SCH ×2 (09:39→16:10)
[2017-08-12] MEDS: FERROUS SULFATE 60 MG/ML 5ML CUP GTB SCH ×2 (09:39→21:40)
[2017-08-12] MEDS: MULTIVITAMINS THERAPEUTIC TAB GTB SCH (09:39)
[2017-08-12] MEDS: LEVETIRACETAM (100 MG/ML) 5ML CUP GTB SCH ×2 (09:39→21:40)
[2017-08-12] MEDS: FUROSEMIDE 20 MG TAB GTB SCH (09:40)
[2017-08-12] MEDS: MAGNESIUM OXIDE 400 MG TAB GTB SCH ×3 (09:40→21:43)
[2017-08-12] MEDS: ASCORBIC ACID 500 MG TAB GTB SCH ×3 (09:40→21:43)
[2017-08-12] MEDS: METOPROLOL 25 MG TAB GTB SCH ×2 (09:40→21:46)
[2017-08-12] MEDS: INSULIN GLARGINE [LANtus] 3 ML PEN SC SCH (09:46)
[2017-08-12] MEDS: SODIUM HYPOCHLORITE 0.125% 473 ML BTL IRR SCH ×2 (09:51→21:47)
[2017-08-12] MEDS: traMADol 50 MG TAB GTB SCH ×2 (09:51→22:29)
--- NOTE | 2017-08-12 10:40 | CONS ---
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 Pitt Problems: Consultation Date/Type/Reason Admit Date/Time Aug 10, 2017 at 14:12 Initial Consult Date 08/11/17 Type of Consultation: Infectious Disease Referring Provider: LUZMA HYMAN MD 24 HR Interval Summary Free Text/Dictation Tmax 99.5, WBC trending up. No n/v/d and no acute issues per d/w nursing staff. Denies pain, SOB, n/v/d, dysuria. ROS limited d/t baseline dementia. Exam/Review of Systems Vital Signs Vitals Vital Signs Date Time Temp Pulse Resp B/P Pulse Ox O2 Delivery O2 Flow Rate FiO2 08/12/17 08:41 110 08/12/17 08:30 98.9 18 125/59 92 08/12/17 00:00 Nasal Cannula 2.0 Intake and Output 08/11/17 08/11/17 08/12/17 15:00 23:00 07:00 Intake Total 150 ml 855 ml 1170 ml Output Total 500 ml 350 ml 1500 ml Balance -350 ml 505 ml -330 ml Exam Constitutional: alert, well developed Head: atraumatic, normocephalic Eyes: nl conjunctiva, nl lids Neck: supple Respiratory: clear to auscultation, normal air movement Cardiovascular: nl pulses, regular rate and rhythm (tachycardic at times) Gastrointestinal: non-tender, other (G-tube intact), soft Musculoskeletal: other (slightly contracted; limited ROM) Extremities: normal pulses, No edema Neurological: nl speech Skin: nl turgor Results Result Diagram: 08/12/17 0602 08/12/17 0602 Results 24 hrs Laboratory Tests Test 08/11/17 12:10 08/11/17 13:06 08/11/17 17:05 08/11/17 21:31 Bedside Glucose 305 H 251 H 201 73 Test 08/12/17 00:00 08/12/17 00:47 08/12/17 01:16 08/12/17 01:31 Vancomycin Level Trough 16.2 Bedside Glucose 68 L 143 132 Test 08/12/17 06:02 08/12/17 06:14 08/12/17 09:31 White Blood Count 24.6 #H Red Blood Count 3.27 #L Hemoglobin 8.5 #L Hematocrit 28.6 L Mean Corpuscular Volume 87.5 Mean Corpuscular Hemoglobin 26.0 L Mean Corpuscular Hemoglobin Concent 29.7 L Red Cell Distribution Width 18.6 H Platelet Count 757 #H Mean Platelet Volume 9.8 Neutrophils % 87.2 H Lymphocytes % 6.9 L Monocytes % 3.2 Eosinophils % 1.7 Basophils % 0.3 Nucleated Red Blood Cells % 0.0 Neutrophils # (Manual) 21.5 H Lymphocytes # 1.7 Monocytes # 0.8 Eosinophils # 0.4 Basophils # 0.1 Nucleated Red Blood Cells # 0.0 Erythrocyte Sedimentation Rate 84.0 H Sodium Level 143 Potassium Level 3.3 L Chloride Level 106 Carbon Dioxide Level 30 Anion Gap 10 # Blood Urea Nitrogen 25 H Creatinine 0.60 Glucose Level 72 # Calcium Level 8.8 Bedside Glucose 83 161 Medications Medications Current Medications Acetaminophen (Tylenol Tab) 650 mg Q4H PRN GTB MILD PAIN LEVEL 1-3; Start at 16:00 Eye Lubricant (Akwa Oint) 1 applic HS BOTH EYES Last administered on 08/11/17t 21:33; Admin Dose 1 APPLIC; Start 08/10/17 at 21:00 Ascorbic Acid (Vitamin C) 500 mg TID GTB Last administered on 08/12/17 09:40; Admin Dose 500 MG; Start 08/10/17 at 21:00 Atorvastatin Calcium (Lipitor) 40 mg QHS GTB Last administered on 08/11/17 21: 33; Admin Dose 40 MG; Start 08/10/17 at 21:00 Bisacodyl (Dulcolax Supp) 10 mg DAILY PRN [place] PRN; Start 08/10/17 at 16:00 Docusate Sodium (Colace Liquid Cup) 200 mg QHS GTB ; Start 08/10/17 at 21:00 Furosemide (Lasix) 20 mg DAILY GTB Last administered on 08/12/17 09:40; Admin Dose 20 MG; Start 08/11/17 at 09:00 Levetiracetam (Keppra Liquid) 500 mg BID GTB Last administered on 08/12/17 09: 39; Admin Dose 500 MG; Start 08/10/17 at 21:00 Magnesium Hydroxide (Milk Of Mag) 30 ml QHS GTB ; Start 08/10/17 at 21:00 Magnesium Oxide (Mag-Ox 400) 400 mg TID GTB Last administered on 08/12/17 09: 40; Admin Dose 400 MG; Start 08/10/17 at 21:00 Metoclopramide HCl (Reglan Liq) 10 mg Q6H PRN GTB NAUSEA AND/OR VOMITING; Start 08/10/17 at 16:00 Ondansetron HCl (Zofran Tab) 4 mg Q6H PRN GTB NAUSEA AND/OR VOMITING; Start 08/10/17 at 16:00 Sodium Biphosphate/ Sodium Phosphate (Fleet Enema) 133 ml Q24H PRN [place] CONSTIPATION; Start 08/10/17 at 17:00 Tramadol HCl (Ultram) 50 mg BID GTB Last administered on 08/12/17 09:51; Admin Dose 50 MG; Start 08/10/17 at 21:00 Ferrous Sulfate (Feosol Liquid Cup) 300 mg BID GTB Last administered on 09:39; Admin Dose 300 MG; Start 08/10/17 at 21:00 Multivitamins Therapeutic (Theragran) 1 tab DAILY GTB Last administered on 08/12 09:39; Admin Dose 1 TAB; Start 08/11/17 at 09:00 Lansoprazole (Prevacid) 30 mg DAILY@06 GTB Last administered on 08/12/17 06:11 ; Admin Dose 30 MG; Start 08/11/17 at 06:00 Diltiazem HCl (Cardizem) 60 mg Q8 GTB Last administered on 08/12/17 06:11; Admin Dose 60 MG; Start 08/10/17 at 22:00 Miscellaneous Information 1 ea NOTE XX ; Start 08/10/17 at 16:30 Glucose (Glutose) 15 gm Q15M PRN PO DECREASED GLUCOSE; Start 08/10/17 at 16:30 Glucose (Glutose) 22.5 gm Q15M PRN PO DECREASED GLUCOSE; Start 08/10/17 at 16:30 Dextrose (D50w Syringe) 25 ml Q15M PRN IV DECREASED GLUCOSE Last administered on 08/12/17 00:58; Admin Dose 25 ML; Start 08/10/17 at 16:30 Dextrose (D50w Syringe) 50 ml Q15M PRN IV DECREASED GLUCOSE; Start 08/10/17 at 16:30 Glucagon (Glucagen) 1 mg Q15M PRN IM DECREASED GLUCOSE; Start 08/10/17 at 16:30 Glucose 15 gm 15 gm Q15M PRN BUCCAL DECREASED GLUCOSE; Start 08/10/17 at 16:30 Vancomycin HCl/ Sodium Chloride (Vancocin/NS) 150 ml @ 75 mls/hr Q12H IVPB Last administered on 08/12/17 01:42; Admin Dose 75 MLS/HR; Start 08/11/17 at 00 :00 Latanoprost (Xalatan) 1 drop HS BOTH EYES Last administered on 08/11/17 21:41 ; Admin Dose 1 DROP; Start 08/10/17 at 21:00 Diagnostic Test (Pha) (Accu-Chek) 1 ea 02 XX Last administered on 08/12/17 02: 02; Admin Dose 1 EA; Start 08/12/17 at 02:00 Diagnostic Test (Pha) (Accu-Chek) 1 ea 02 XX Last administered on 08/12/17 02: 02; Admin Dose 1 EA; Start 08/12/17 at 02:00 Insulin Aspart (Adult SC Insulin - Mild Algorithm)... Q4 SC Last administered on 08/12/17 09:46; Admin Dose 1 UNIT; Start 08/11/17 at 10:13 Sodium Chloride (1/2 NS) 1,000 ml @ 75 mls/hr [id number] IV Last administered on 08/12/17 09:39; Admin Dose 75 MLS/HR; Start 08/11/17 at 13:30 Metoprolol Tartrate (Lopressor) 25 mg BID GTB Last administered on 08/12/17 09 :40; Admin Dose 25 MG; Start 08/11/17 at 21:00 Insulin Glargine 40 unit 40 unit AM SC Last administered on 08/12/17 09:46; Admin Dose 40 UNIT; Start 08/12/17 at 09:00 Meropenem/Sodium Chloride (Merrem/NS) 100 ml @ 200 mls/hr Q8 IVPB Last administered on 08/12/17 06:11; Admin Dose 200 MLS/HR; Start 08/11/17 at 22:00 Sodium Hypochlorite (Dakin'S (1/4 Strength)) 1 applic BID IRR Last administered on 08/12/17 09:51; Admin Dose 1 APPLIC; Start 08/11/17 at 21:00 Insulin Aspart (Novolog Insulin Pen) 4 unit Q6 SC Last administered on 18:32; Admin Dose 4 UNIT; Start 08/11/17 at 18:00 PHILIP CLARKE NP Aug 12, 2017 10:39
--- NOTE | 2017-08-12 11:35 | CONS ---
Date/Time of Note Date/Time of Note DATE: 08/11/17 TIME: 16:30 Assessment/Plan Assessment/Plan Chief Complaint/Hosp Course 1. infected Sacral decub - om/deep tissue infection 2. multiple medical problems. 3. failing zosyn r: vanco/byron f/u cxs repeat bcxs in am consider cdiff testing and empiric rx consider isolation debridement go. Problems: Consultation Date/Type/Reason Admit Date/Time Aug 10, 2017 at 14:12 Hx of Present Illness Mr. Cohen is an unfortunate 56 yo bedbound female admitted with large sacral decub. Consideration of debridement is being entertained. cxs are pending from wound. Bcxs returned pos. Constitutional: no complaints, other (confused) Eyes: No visual change ENT: No bleeding, No congestion Respiratory: No cough, No shortness of breath Cardiovascular: No chest pain, No edema, No lightheadedness, No palpitations Gastrointestinal: other (as above), vomiting Genitourinary: No dysuria, No flank pain, No hematuria Musculoskeletal: No bone/joint pain Skin: No bruising, No rash Neurologic: confusion (can answer simple questions) Psychological: no complaints Past Medical History Medical History: coronary artery disease, diabetes, hypertension Past Surgical History Past Surgical Hx: endoscopy Social History Alcohol Use: none Smoking Status: Never smoker Drug Use: none Exam/Review of Systems Vital Signs Vitals Vital Signs Date Time Temp Pulse Resp B/P Pulse Ox O2 Delivery O2 Flow Rate FiO2 08/12/17 08:41 110 08/12/17 08:30 98.9 18 125/59 92 08/12/17 00:00 Nasal Cannula 2.0 Intake and Output 08/11/17 08/11/17 08/12/17 15:00 23:00 07:00 Intake Total 150 ml 855 ml 1170 ml Output Total 500 ml 350 ml 1500 ml Balance -350 ml 505 ml -330 ml Results Result Diagram: 08/12/17 0602 08/12/17 0602 Results 24 hrs Laboratory Tests Test 08/11/17 12:10 08/11/17 13:06 08/11/17 17:05 08/11/17 21:31 Bedside Glucose 305 H 251 H 201 73 Test 08/12/17 00:00 08/12/17 00:47 08/12/17 01:16 08/12/17 01:31 Vancomycin Level Trough 16.2 Bedside Glucose 68 L 143 132 Test 08/12/17 06:02 08/12/17 06:14 08/12/17 09:31 White Blood Count 24.6 #H Red Blood Count 3.27 #L Hemoglobin 8.5 #L Hematocrit 28.6 L Mean Corpuscular Volume 87.5 Mean Corpuscular Hemoglobin 26.0 L Mean Corpuscular Hemoglobin Concent 29.7 L Red Cell Distribution Width 18.6 H Platelet Count 757 #H Mean Platelet Volume 9.8 Neutrophils % 87.2 H Lymphocytes % 6.9 L Monocytes % 3.2 Eosinophils % 1.7 Basophils % 0.3 Nucleated Red Blood Cells % 0.0 Neutrophils # (Manual) 21.5 H Lymphocytes # 1.7 Monocytes # 0.8 Eosinophils # 0.4 Basophils # 0.1 Nucleated Red Blood Cells # 0.0 Erythrocyte Sedimentation Rate 84.0 H Sodium Level 143 Potassium Level 3.3 L Chloride Level 106 Carbon Dioxide Level 30 Anion Gap 10 # Blood Urea Nitrogen 25 H Creatinine 0.60 Glucose Level 72 # Calcium Level 8.8 Bedside Glucose 83 161 Medications Medications Current Medications Acetaminophen (Tylenol Tab) 650 mg Q4H PRN GTB MILD PAIN LEVEL 1-3; Start at 16:00 Eye Lubricant (Akwa Oint) 1 applic HS BOTH EYES Last administered on 08/11/17 21:33; Admin Dose 1 APPLIC; Start 08/10/17 at 21:00 Ascorbic Acid (Vitamin C) 500 mg TID GTB Last administered on 08/12/17 09:40; Admin Dose 500 MG; Start 08/10/17 at 21:00 Atorvastatin Calcium (Lipitor) 40 mg QHS GTB Last administered on 08/11/17 21: 33; Admin Dose 40 MG; Start 08/10/17 at 21:00 Bisacodyl (Dulcolax Supp) 10 mg DAILY PRN [place] PRN; Start 08/10/17 at 16:00 Docusate Sodium (Colace Liquid Cup) 200 mg QHS GTB ; Start 08/10/17 at 21:00 Furosemide (Lasix) 20 mg DAILY GTB Last administered on 08/12/17 09:40; Admin Dose 20 MG; Start 08/11/17 at 09:00 Levetiracetam (Keppra Liquid) 500 mg BID GTB Last administered on 08/12/17 09: 39; Admin Dose 500 MG; Start 08/10/17 at 21:00 Magnesium Hydroxide (Milk Of Mag) 30 ml QHS GTB ; Start 08/10/17 at 21:00 Magnesium Oxide (Mag-Ox 400) 400 mg TID GTB Last administered on 08/12/17 09: 40; Admin Dose 400 MG; Start 08/10/17 at 21:00 Metoclopramide HCl (Reglan Liq) 10 mg Q6H PRN GTB NAUSEA AND/OR VOMITING; Start 08/10/17 at 16:00 Ondansetron HCl (Zofran Tab) 4 mg Q6H PRN GTB NAUSEA AND/OR VOMITING; Start 08/10/17 at 16:00 Sodium Biphosphate/ Sodium Phosphate (Fleet Enema) 133 ml Q24H PRN [place] CONSTIPATION; Start 08/10/17 at 17:00 Tramadol HCl (Ultram) 50 mg BID GTB Last administered on 08/12/17 09:51; Admin Dose 50 MG; Start 08/10/17 at 21:00 Ferrous Sulfate (Feosol Liquid Cup) 300 mg BID GTB Last administered on 09:39; Admin Dose 300 MG; Start 08/10/17 at 21:00 Multivitamins Therapeutic (Theragran) 1 tab DAILY GTB Last administered on 08/12 09:39; Admin Dose 1 TAB; Start 08/11/17 at 09:00 Lansoprazole (Prevacid) 30 mg DAILY@06 GTB Last administered on 08/12/17 06:11 ; Admin Dose 30 MG; Start 08/11/17 at 06:00 Diltiazem HCl (Cardizem) 60 mg Q8 GTB Last administered on 08/12/17 06:11; Admin Dose 60 MG; Start 08/10/17 at 22:00 Miscellaneous Information 1 ea NOTE XX ; Start 08/10/17 at 16:30 Glucose (Glutose) 15 gm Q15M PRN PO DECREASED GLUCOSE; Start 08/10/17 at 16:30 Glucose (Glutose) 22.5 gm Q15M PRN PO DECREASED GLUCOSE; Start 08/10/17 at 16:30 Dextrose (D50w Syringe) 25 ml Q15M PRN IV DECREASED GLUCOSE Last administered on 08/12/17 00:58; Admin Dose 25 ML; Start 08/10/17 at 16:30 Dextrose (D50w Syringe) 50 ml Q15M PRN IV DECREASED GLUCOSE; Start 08/10/17 at 16:30 Glucagon (Glucagen) 1 mg Q15M PRN IM DECREASED GLUCOSE; Start 08/10/17 at 16:30 Glucose (Glutose) 15 gm Q15M PRN BUCCAL DECREASED GLUCOSE; Start 08/10/17 at 16: 30 Latanoprost (Xalatan) 1 drop HS BOTH EYES Last administered on 08/11/17 21:41 ; Admin Dose 1 DROP; Start 08/10/17 at 21:00 Diagnostic Test (Pha) (Accu-Chek) 1 ea 02 XX Last administered on 08/12/17 02: 02; Admin Dose 1 EA; Start 08/12/17 at 02:00 Diagnostic Test (Pha) (Accu-Chek) 1 ea 02 XX Last administered on 08/12/17 02: 02; Admin Dose 1 EA; Start 08/12/17 at 02:00 Insulin Aspart (Adult SC Insulin - Mild Algorithm)... Q4 SC Last administered on 08/12/17 09:46; Admin Dose 1 UNIT; Start 08/11/17 at 10:13 Sodium Chloride (1/2 NS) 1,000 ml @ 75 mls/hr [id number] IV Last administered on 08/12/17 09:39; Admin Dose 75 MLS/HR; Start 08/11/17 at 13:30 Metoprolol Tartrate (Lopressor) 25 mg BID GTB Last administered on 08/12/17 09 :40; Admin Dose 25 MG; Start 08/11/17 at 21:00 Insulin Glargine 40 unit 40 unit AM SC Last administered on 08/12/17 09:46; Admin Dose 40 UNIT; Start 08/12/17 at 09:00 Meropenem/Sodium Chloride (Merrem/NS) 100 ml @ 200 mls/hr Q8 IVPB Last administered on 08/12/17 06:11; Admin Dose 200 MLS/HR; Start 08/11/17 at 22:00 Sodium Hypochlorite (Dakin'S (1/4 Strength)) 1 applic BID IRR Last administered on 08/12/17 09:51; Admin Dose 1 APPLIC; Start 08/11/17 at 21:00 Insulin Aspart (Novolog Insulin Pen) 4 unit Q6 SC Last administered on 18:32; Admin Dose 4 UNIT; Start 08/11/17 at 18:00 BENITO THOMAS MD Aug 12, 2017 11:35
[2017-08-12] MEDS: VANCOMYCIN 500MG/NS (PMX) 100 ML IVPB SCH (13:16)
--- NOTE | 2017-08-12 14:32 | PN ---
Date/Time of Note Date/Time of Note DATE: 08/12/17 TIME: 14:30 Assessment/Plan VTE Prophylaxis VTE Prophylaxis Intervention: other Lines/Catheters IV Catheter Type (from Nrs): Peripheral IV Urinary Cath still in place: Yes Assessment/Plan Assessment/Plan -Sepsis secondary to UTI - admit as inpatient - ID consult --Infected decubitus ulcer - per SX Consult - plan for bed side debridement tomorrow - UTI - Cont antibiotics - Persistent Hyperglycemia - Endocrinology consult- Dr Matthews notified - cont to monitor -Thrombocytosis - Hematology consult- Dr WOLF - Anemia -Dysphagia- sp G tube placement - aspiration precautions - Epilepsy - seizure precautions - encephalopathy - CVA - CAD - Hypertension - Hx DVT - dementia - bipolar - schizophrenia - SCDs for DVT Prophylaxis.Will wait for Lovenox- Anticipating surgical intervention. Plan of care noel Salvador/staff Exam/Review of Systems Vital Signs Vitals Vital Signs Date Time Temp Pulse Resp B/P Pulse Ox O2 Delivery O2 Flow Rate FiO2 08/12/17 13:02 95 08/12/17 12:35 98.7 19 126/56 93 08/12/17 00:00 Nasal Cannula 2.0 Intake and Output 08/11/17 08/11/17 08/12/17 15:00 23:00 07:00 Intake Total 150 ml 855 ml 1170 ml Output Total 500 ml 350 ml 1500 ml Balance -350 ml 505 ml -330 ml Exam Constitutional: alert, non-verbal Respiratory: diminished breath sounds Cardiovascular: nl pulses Gastrointestinal: non-tender, soft Musculoskeletal: muscle weakness Extremities: edema Results Result Diagram: 08/12/17 0602 08/12/17 0602 Results 24 hrs Laboratory Tests Test 08/11/17 17:05 08/11/17 21:31 08/12/17 00:00 08/12/17 00:47 Bedside Glucose 201 73 68 L Vancomycin Level Trough 16.2 Test 08/12/17 01:16 08/12/17 01:31 08/12/17 06:02 08/12/17 06:14 Bedside Glucose 143 132 83 White Blood Count 24.6 #H Red Blood Count 3.27 #L Hemoglobin 8.5 #L Hematocrit 28.6 L Mean Corpuscular Volume 87.5 Mean Corpuscular Hemoglobin 26.0 L Mean Corpuscular Hemoglobin Concent 29.7 L Red Cell Distribution Width 18.6 H Platelet Count 757 #H Mean Platelet Volume 9.8 Neutrophils % 87.2 H Lymphocytes % 6.9 L Monocytes % 3.2 Eosinophils % 1.7 Basophils % 0.3 Nucleated Red Blood Cells % 0.0 Neutrophils # (Manual) 21.5 H Lymphocytes # 1.7 Monocytes # 0.8 Eosinophils # 0.4 Basophils # 0.1 Nucleated Red Blood Cells # 0.0 Erythrocyte Sedimentation Rate 84.0 H Sodium Level 143 Potassium Level 3.3 L Chloride Level 106 Carbon Dioxide Level 30 Anion Gap 10 # Blood Urea Nitrogen 25 H Creatinine 0.60 Glucose Level 72 # Calcium Level 8.8 Test 08/12/17 09:31 08/12/17 12:53 Bedside Glucose 161 156 Medications Medications Current Medications Acetaminophen (Tylenol Tab) 650 mg Q4H PRN GTB MILD PAIN LEVEL 1-3; Start at 16:00 Eye Lubricant (Akwa Oint) 1 applic HS BOTH EYES Last administered on 08/11/17 21:33; Admin Dose 1 APPLIC; Start 08/10/17 at 21:00 Ascorbic Acid (Vitamin C) 500 mg TID GTB Last administered on 08/12/17 13:14; Admin Dose 500 MG; Start 08/10/17 at 21:00 Atorvastatin Calcium (Lipitor) 40 mg QHS GTB Last administered on 08/11/17 21: 33; Admin Dose 40 MG; Start 08/10/17 at 21:00 Bisacodyl (Dulcolax Supp) 10 mg DAILY PRN [place] PRN; Start 08/10/17 at 16:00 Docusate Sodium (Colace Liquid Cup) 200 mg QHS GTB ; Start 08/10/17 at 21:00 Furosemide (Lasix) 20 mg DAILY GTB Last administered on 08/12/17 09:40; Admin Dose 20 MG; Start 08/11/17 at 09:00 Levetiracetam (Keppra Liquid) 500 mg BID GTB Last administered on 08/12/17 09: 39; Admin Dose 500 MG; Start 08/10/17 at 21:00 Magnesium Hydroxide (Milk Of Mag) 30 ml QHS GTB ; Start 08/10/17 at 21:00 Magnesium Oxide (Mag-Ox 400) 400 mg TID GTB Last administered on 08/12/17 13: 14; Admin Dose 400 MG; Start 08/10/17 at 21:00 Metoclopramide HCl (Reglan Liq) 10 mg Q6H PRN GTB NAUSEA AND/OR VOMITING; Start 08/10/17 at 16:00 Ondansetron HCl (Zofran Tab) 4 mg Q6H PRN GTB NAUSEA AND/OR VOMITING; Start 08/10/17 at 16:00 Sodium Biphosphate/ Sodium Phosphate (Fleet Enema) 133 ml Q24H PRN [place] CONSTIPATION; Start 08/10/17 at 17:00 Tramadol HCl (Ultram) 50 mg BID GTB Last administered on 08/12/17 09:51; Admin Dose 50 MG; Start 08/10/17 at 21:00 Ferrous Sulfate (Feosol Liquid Cup) 300 mg BID GTB Last administered on 09:39; Admin Dose 300 MG; Start 08/10/17 at 21:00 Multivitamins Therapeutic (Theragran) 1 tab DAILY GTB Last administered on 08/12 09:39; Admin Dose 1 TAB; Start 08/11/17 at 09:00 Lansoprazole (Prevacid) 30 mg DAILY@06 GTB Last administered on 08/12/17 06:11 ; Admin Dose 30 MG; Start 08/11/17 at 06:00 Diltiazem HCl (Cardizem) 60 mg Q8 GTB Last administered on 08/12/17 13:15; Admin Dose 60 MG; Start 08/10/17 at 22:00 Miscellaneous Information 1 ea NOTE XX ; Start 08/10/17 at 16:30 Glucose (Glutose) 15 gm Q15M PRN PO DECREASED GLUCOSE; Start 08/10/17 at 16:30 Glucose (Glutose) 22.5 gm Q15M PRN PO DECREASED GLUCOSE; Start 08/10/17 at 16:30 Dextrose (D50w Syringe) 25 ml Q15M PRN IV DECREASED GLUCOSE Last administered on 08/12/17 00:58; Admin Dose 25 ML; Start 08/10/17 at 16:30 Dextrose (D50w Syringe) 50 ml Q15M PRN IV DECREASED GLUCOSE; Start 08/10/17 at 16:30 Glucagon (Glucagen) 1 mg Q15M PRN IM DECREASED GLUCOSE; Start 08/10/17 at 16:30 Glucose (Glutose) 15 gm Q15M PRN BUCCAL DECREASED GLUCOSE; Start 08/10/17 at 16: 30 Latanoprost (Xalatan) 1 drop HS BOTH EYES Last administered on 08/11/17 21:41 ; Admin Dose 1 DROP; Start 08/10/17 at 21:00 Diagnostic Test (Pha) (Accu-Chek) 1 ea 02 XX Last administered on 08/12/17 02: 02; Admin Dose 1 EA; Start 08/12/17 at 02:00 Diagnostic Test (Pha) (Accu-Chek) 1 ea 02 XX Last administered on 08/12/17 02: 02; Admin Dose 1 EA; Start 08/12/17 at 02:00 Insulin Aspart (Adult SC Insulin - Mild Algorithm)... Q4 SC Last administered on 08/12/17 13:00; Admin Dose 1 UNIT; Start 08/11/17 at 10:13 Sodium Chloride (1/2 NS) 1,000 ml @ 75 mls/hr [id number] IV Last administered on 08/12/17 09:39; Admin Dose 75 MLS/HR; Start 08/11/17 at 13:30 Metoprolol Tartrate (Lopressor) 25 mg BID GTB Last administered on 08/12/17 09 :40; Admin Dose 25 MG; Start 08/11/17 at 21:00 Insulin Glargine (Lantus) 40 unit AM SC Last administered on 08/12/17 09:46; Admin Dose 40 UNIT; Start 08/12/17 at 09:00 Sodium Hypochlorite (Dakin'S (1/4 Strength)) 1 applic BID IRR Last administered on 08/12/17 09:51; Admin Dose 1 APPLIC; Start 08/11/17 at 21:00 Insulin Aspart 4 unit 4 unit Q6 SC Last administered on 08/12/17 12:00; Admin Dose 4 UNIT; Start 08/11/17 at 18:00 Vancomycin HCl 100 ml @ 100 mls/hr Q12H IVPB Last administered on 08/12/17 13 :16; Admin Dose 100 MLS/HR; Start 08/12/17 at 13:00 Ceftriaxone Sodium 50 ml @ 100 mls/hr Q24H IVPB ; Start 08/12/17 at 13:30 Metronidazole (Flagyl 500 Mg (Pmx)) 100 ml @ 100 mls/hr Q8 IVPB ; Start at 14:00 MICHEAL COLINDRES Aug 12, 2017 14:32
[2017-08-12] MEDS ORDERED: POTASSIUM CHLORIDE 20 MEQ POWDER FOR ORAL SOLN GTB ONE (15:00)
--- NOTE | 2017-08-12 15:55 | CONS ---
Date/Time of Note Date/Time of Note DATE: 08/12/17 TIME: 15:53 Assessment/Plan Assessment/Plan Additional Assessment/Plan IMPRESSION: 1. Sepsis, most probably related to urinary tract infection due to the bladder outlet obstruction. 2. Decubitus ulcer infected with osteomyelitis. 3. Epilepsy. 4. Encephalopathy. 5. Cerebrovascular accident. 6. Coronary artery disease. 7. Hypertension. 8. Anemia. 9. Dementia. 10. Schizophrenia. 11. Severe constipation. Plan continue present care bladder distension resolved continue feeding Consultation Date/Type/Reason Admit Date/Time Aug 10, 2017 at 14:12 Initial Consult Date 08/11/17 Type of Consultation: Infectious Disease Referring Provider: LUZMA HYMAN MD 24 HR Interval Summary Subjective hx not possible: pt non-verbal Constitutional: no complaints Exam/Review of Systems Vital Signs Vitals Vital Signs Date Time Temp Pulse Resp B/P Pulse Ox O2 Delivery O2 Flow Rate FiO2 08/12/17 13:02 95 08/12/17 12:35 98.7 19 126/56 93 08/12/17 00:00 Nasal Cannula 2.0 Intake and Output 08/11/17 08/11/17 08/12/17 15:00 23:00 07:00 Intake Total 150 ml 855 ml 1170 ml Output Total 500 ml 350 ml 1500 ml Balance -350 ml 505 ml -330 ml Exam Constitutional: alert, oriented, well developed Psych: nl mood/affect, no complaints Head: atraumatic, normocephalic Eyes: EOMI, PERRL, nl conjunctiva, nl lids, nl sclera ENMT: nl external ears & nose, nl lips & teeth, nl nasal mucosa & septum Neck: non-tender, supple Respiratory: clear to auscultation, normal air movement Cardiovascular: nl pulses, regular rate and rhythm Gastrointestinal: nl liver, spleen, non-tender, soft Musculoskeletal: nl extremities to inspection, nl gait and stance Extremities: normal pulses Neurological: [employer] LEAD II-XII intact, nl mental status, nl speech, nl strength Skin: nl turgor, No rash or lesions Lymph: nl lymph nodes Results Result Diagram: 08/12/17 0602 08/12/17 0602 Results 24 hrs Laboratory Tests Test 08/11/17 17:05 08/11/17 21:31 08/12/17 00:00 08/12/17 00:47 Bedside Glucose 201 73 68 L Vancomycin Level Trough 16.2 Test 08/12/17 01:16 08/12/17 01:31 08/12/17 06:02 08/12/17 06:14 Bedside Glucose 143 132 83 White Blood Count 24.6 #H Red Blood Count 3.27 #L Hemoglobin 8.5 #L Hematocrit 28.6 L Mean Corpuscular Volume 87.5 Mean Corpuscular Hemoglobin 26.0 L Mean Corpuscular Hemoglobin Concent 29.7 L Red Cell Distribution Width 18.6 H Platelet Count 757 #H Mean Platelet Volume 9.8 Neutrophils % 87.2 H Lymphocytes % 6.9 L Monocytes % 3.2 Eosinophils % 1.7 Basophils % 0.3 Nucleated Red Blood Cells % 0.0 Neutrophils # (Manual) 21.5 H Lymphocytes # 1.7 Monocytes # 0.8 Eosinophils # 0.4 Basophils # 0.1 Nucleated Red Blood Cells # 0.0 Erythrocyte Sedimentation Rate 84.0 H Sodium Level 143 Potassium Level 3.3 L Chloride Level 106 Carbon Dioxide Level 30 Anion Gap 10 # Blood Urea Nitrogen 25 H Creatinine 0.60 Glucose Level 72 # Calcium Level 8.8 Test 08/12/17 09:31 08/12/17 12:53 Bedside Glucose 161 156 Medications Medications Current Medications Acetaminophen (Tylenol Tab) 650 mg Q4H PRN GTB MILD PAIN LEVEL 1-3; Start at 16:00 Eye Lubricant (Akwa Oint) 1 applic HS BOTH EYES Last administered on 08/11/17 21:33; Admin Dose 1 APPLIC; Start 08/10/17 at 21:00 Ascorbic Acid (Vitamin C) 500 mg TID GTB Last administered on 08/12/17 13:14; Admin Dose 500 MG; Start 08/10/17 at 21:00 Atorvastatin Calcium (Lipitor) 40 mg QHS GTB Last administered on 08/11/17 21: 33; Admin Dose 40 MG; Start 08/10/17 at 21:00 Bisacodyl (Dulcolax Supp) 10 mg DAILY PRN [place] PRN; Start 08/10/17 at 16:00 Docusate Sodium (Colace Liquid Cup) 200 mg QHS GTB ; Start 08/10/17 at 21:00 Furosemide (Lasix) 20 mg DAILY GTB Last administered on 08/12/17 09:40; Admin Dose 20 MG; Start 08/11/17 at 09:00 Levetiracetam (Keppra Liquid) 500 mg BID GTB Last administered on 08/12/17 09: 39; Admin Dose 500 MG; Start 08/10/17 at 21:00 Magnesium Hydroxide (Milk Of Mag) 30 ml QHS GTB ; Start 08/10/17 at 21:00 Magnesium Oxide (Mag-Ox 400) 400 mg TID GTB Last administered on 08/12/17 13: 14; Admin Dose 400 MG; Start 08/10/17 at 21:00 Metoclopramide HCl (Reglan Liq) 10 mg Q6H PRN GTB NAUSEA AND/OR VOMITING; Start 08/10/17 at 16:00 Ondansetron HCl (Zofran Tab) 4 mg Q6H PRN GTB NAUSEA AND/OR VOMITING; Start 08/10/17 at 16:00 Sodium Biphosphate/ Sodium Phosphate (Fleet Enema) 133 ml Q24H PRN [place] CONSTIPATION; Start 08/10/17 at 17:00 Tramadol HCl (Ultram) 50 mg BID GTB Last administered on 08/12/17 09:51; Admin Dose 50 MG; Start 08/10/17 at 21:00 Ferrous Sulfate (Feosol Liquid Cup) 300 mg BID GTB Last administered on 09:39; Admin Dose 300 MG; Start 08/10/17 at 21:00 Multivitamins Therapeutic (Theragran) 1 tab DAILY GTB Last administered on 08/12 09:39; Admin Dose 1 TAB; Start 08/11/17 at 09:00 Lansoprazole (Prevacid) 30 mg DAILY@06 GTB Last administered on 08/12/17 06:11 ; Admin Dose 30 MG; Start 08/11/17 at 06:00 Diltiazem HCl (Cardizem) 60 mg Q8 GTB Last administered on 08/12/17 13:15; Admin Dose 60 MG; Start 08/10/17 at 22:00 Miscellaneous Information 1 ea NOTE XX ; Start 08/10/17 at 16:30 Glucose (Glutose) 15 gm Q15M PRN PO DECREASED GLUCOSE; Start 08/10/17 at 16:30 Glucose (Glutose) 22.5 gm Q15M PRN PO DECREASED GLUCOSE; Start 08/10/17 at 16:30 Dextrose (D50w Syringe) 25 ml Q15M PRN IV DECREASED GLUCOSE Last administered on 08/12/17 00:58; Admin Dose 25 ML; Start 08/10/17 at 16:30 Dextrose (D50w Syringe) 50 ml Q15M PRN IV DECREASED GLUCOSE; Start 08/10/17 at 16:30 Glucagon (Glucagen) 1 mg Q15M PRN IM DECREASED GLUCOSE; Start 08/10/17 at 16:30 Glucose (Glutose) 15 gm Q15M PRN BUCCAL DECREASED GLUCOSE; Start 08/10/17 at 16: 30 Latanoprost (Xalatan) 1 drop HS BOTH EYES Last administered on 08/11/17 21:41 ; Admin Dose 1 DROP; Start 08/10/17 at 21:00 Diagnostic Test (Pha) (Accu-Chek) 1 ea 02 XX Last administered on 08/12/17 02: 02; Admin Dose 1 EA; Start 08/12/17 at 02:00 Diagnostic Test (Pha) (Accu-Chek) 1 ea 02 XX Last administered on 08/12/17 02: 02; Admin Dose 1 EA; Start 08/12/17 at 02:00 Insulin Aspart (Adult SC Insulin - Mild Algorithm)... Q4 SC Last administered on 08/12/17 13:00; Admin Dose 1 UNIT; Start 08/11/17 at 10:13 Sodium Chloride (1/2 NS) 1,000 ml @ 75 mls/hr [id number] IV Last administered on 08/12/17 09:39; Admin Dose 75 MLS/HR; Start 08/11/17 at 13:30 Metoprolol Tartrate (Lopressor) 25 mg BID GTB Last administered on 08/12/17 09 :40; Admin Dose 25 MG; Start 08/11/17 at 21:00 Insulin Glargine (Lantus) 40 unit AM SC Last administered on 08/12/17 09:46; Admin Dose 40 UNIT; Start 08/12/17 at 09:00 Sodium Hypochlorite (Dakin'S (1/4 Strength)) 1 applic BID IRR Last administered on 08/12/17 09:51; Admin Dose 1 APPLIC; Start 08/11/17 at 21:00 Insulin Aspart 4 unit 4 unit Q6 SC Last administered on 08/12/17 12:00; Admin Dose 4 UNIT; Start 08/11/17 at 18:00 Vancomycin HCl 100 ml @ 100 mls/hr Q12H IVPB Last administered on 08/12/17 13 :16; Admin Dose 100 MLS/HR; Start 08/12/17 at 13:00 Ceftriaxone Sodium 50 ml @ 100 mls/hr Q24H IVPB ; Start 08/12/17 at 13:30 Metronidazole (Flagyl 500 Mg (Pmx)) 100 ml @ 100 mls/hr Q8 IVPB ; Start at 14:00 Enoxaparin Sodium (Lovenox) 40 mg DAILY SC ; Start 08/12/17 at 15:00 KAYLEE FAN MD Aug 12, 2017 15:55
[2017-08-12] MEDS: metroNIDAZOLE 500 MG/NS (PMX) 100 ML IVPB SCH ×2 (17:48→21:38)
--- NOTE | 2017-08-12 17:53 | CONS ---
Date/Time of Note Date/Time of Note DATE: 08/12/17 TIME: 17:52 Assessment/Plan Assessment/Plan Problems: (1) Diabetes mellitus, type 2 Status: Chronic Comment: With usage of the controller medications in the hospital and stable controlled setting wall on antibiotics the patient is improved and is at appropriate therapeutic range for her sugars. I am concerned about the continued elevation of the white blood cell count but will defer off to the infectious disease consultants and primary management team. For now sugars are doing well. Qualifiers: Diabetes mellitus complication status: with hyperglycemia Diabetes mellitus half-way insulin use: without half-way use Qualified Code: E11.65 - Type 2 diabetes mellitus with hyperglycemia, without long-term current use of insulin Consultation Date/Type/Reason Admit Date/Time Aug 10, 2017 at 14:12 Initial Consult Date 08/11/17 Type of Consultation: Endocrinology Reason for Consultation Diabetes mellitus type 2 with hyperglycemia driven by infection Referring Provider: LUZMA HYMAN MD 24 HR Interval Summary Free Text/Dictation No changes Exam/Review of Systems Vital Signs Vitals Vital Signs Date Time Temp Pulse Resp B/P Pulse Ox O2 Delivery O2 Flow Rate FiO2 08/12/17 16:32 108 08/12/17 12:35 98.7 19 126/56 93 08/12/17 08:20 Nasal Cannula 2.0 Intake and Output 08/11/17 08/11/17 08/12/17 15:00 23:00 07:00 Intake Total 150 ml 855 ml 1170 ml Output Total 500 ml 350 ml 1500 ml Balance -350 ml 505 ml -330 ml Results No changes Result Diagram: 08/12/17 0602 08/12/17 0602 Results 24 hrs Laboratory Tests Test 08/11/17 21:31 08/12/17 00:00 08/12/17 00:47 08/12/17 01:16 Bedside Glucose 73 68 L 143 Vancomycin Level Trough 16.2 Test 08/12/17 01:31 08/12/17 06:02 08/12/17 06:14 08/12/17 09:31 Bedside Glucose 132 83 161 White Blood Count 24.6 #H Red Blood Count 3.27 #L Hemoglobin 8.5 #L Hematocrit 28.6 L Mean Corpuscular Volume 87.5 Mean Corpuscular Hemoglobin 26.0 L Mean Corpuscular Hemoglobin Concent 29.7 L Red Cell Distribution Width 18.6 H Platelet Count 757 #H Mean Platelet Volume 9.8 Neutrophils % 87.2 H Lymphocytes % 6.9 L Monocytes % 3.2 Eosinophils % 1.7 Basophils % 0.3 Nucleated Red Blood Cells % 0.0 Neutrophils # (Manual) 21.5 H Lymphocytes # 1.7 Monocytes # 0.8 Eosinophils # 0.4 Basophils # 0.1 Nucleated Red Blood Cells # 0.0 Erythrocyte Sedimentation Rate 84.0 H Sodium Level 143 Potassium Level 3.3 L Chloride Level 106 Carbon Dioxide Level 30 Anion Gap 10 # Blood Urea Nitrogen 25 H Creatinine 0.60 Glucose Level 72 # Calcium Level 8.8 Test 08/12/17 12:53 Bedside Glucose 156 Medications Medications Current Medications Acetaminophen (Tylenol Tab) 650 mg Q4H PRN GTB MILD PAIN LEVEL 1-3; Start at 16:00 Eye Lubricant (Akwa Oint) 1 applic HS BOTH EYES Last administered on 08/11/17 21:33; Admin Dose 1 APPLIC; Start 08/10/17 at 21:00 Ascorbic Acid (Vitamin C) 500 mg TID GTB Last administered on 08/12/17 13:14; Admin Dose 500 MG; Start 08/10/17 at 21:00 Atorvastatin Calcium (Lipitor) 40 mg QHS GTB Last administered on 08/11/17 21: 33; Admin Dose 40 MG; Start 08/10/17 at 21:00 Bisacodyl (Dulcolax Supp) 10 mg DAILY PRN [place] PRN; Start 08/10/17 at 16:00 Docusate Sodium (Colace Liquid Cup) 200 mg QHS GTB ; Start 08/10/17 at 21:00 Furosemide (Lasix) 20 mg DAILY GTB Last administered on 08/12/17 09:40; Admin Dose 20 MG; Start 08/11/17 at 09:00 Levetiracetam (Keppra Liquid) 500 mg BID GTB Last administered on 08/12/17 09: 39; Admin Dose 500 MG; Start 08/10/17 at 21:00 Magnesium Hydroxide (Milk Of Mag) 30 ml QHS GTB ; Start 08/10/17 at 21:00 Magnesium Oxide (Mag-Ox 400) 400 mg TID GTB Last administered on 08/12/17 13: 14; Admin Dose 400 MG; Start 08/10/17 at 21:00 Metoclopramide HCl (Reglan Liq) 10 mg Q6H PRN GTB NAUSEA AND/OR VOMITING; Start 08/10/17 at 16:00 Ondansetron HCl (Zofran Tab) 4 mg Q6H PRN GTB NAUSEA AND/OR VOMITING; Start 08/10/17 at 16:00 Sodium Biphosphate/ Sodium Phosphate (Fleet Enema) 133 ml Q24H PRN [place] CONSTIPATION; Start 08/10/17 at 17:00 Tramadol HCl (Ultram) 50 mg BID GTB Last administered on 08/12/17 09:51; Admin Dose 50 MG; Start 08/10/17 at 21:00 Ferrous Sulfate (Feosol Liquid Cup) 300 mg BID GTB Last administered on 09:39; Admin Dose 300 MG; Start 08/10/17 at 21:00 Multivitamins Therapeutic (Theragran) 1 tab DAILY GTB Last administered on 08/12 09:39; Admin Dose 1 TAB; Start 08/11/17 at 09:00 Lansoprazole (Prevacid) 30 mg DAILY@06 GTB Last administered on 08/12/17 06:11 ; Admin Dose 30 MG; Start 08/11/17 at 06:00 Diltiazem HCl (Cardizem) 60 mg Q8 GTB Last administered on 08/12/17 13:15; Admin Dose 60 MG; Start 08/10/17 at 22:00 Miscellaneous Information 1 ea NOTE XX ; Start 08/10/17 at 16:30 Glucose (Glutose) 15 gm Q15M PRN PO DECREASED GLUCOSE; Start 08/10/17 at 16:30 Glucose (Glutose) 22.5 gm Q15M PRN PO DECREASED GLUCOSE; Start 08/10/17 at 16:30 Dextrose (D50w Syringe) 25 ml Q15M PRN IV DECREASED GLUCOSE Last administered on 08/12/17 17:48; Admin Dose 25 ML; Start 08/10/17 at 16:30 Dextrose (D50w Syringe) 50 ml Q15M PRN IV DECREASED GLUCOSE; Start 08/10/17 at 16:30 Glucagon (Glucagen) 1 mg Q15M PRN IM DECREASED GLUCOSE; Start 08/10/17 at 16:30 Glucose (Glutose) 15 gm Q15M PRN BUCCAL DECREASED GLUCOSE; Start 08/10/17 at 16: 30 Latanoprost (Xalatan) 1 drop HS BOTH EYES Last administered on 08/11/17 21:41 ; Admin Dose 1 DROP; Start 08/10/17 at 21:00 Diagnostic Test (Pha) (Accu-Chek) 1 ea 02 XX Last administered on 08/12/17 02: 02; Admin Dose 1 EA; Start 08/12/17 at 02:00 Diagnostic Test (Pha) (Accu-Chek) 1 ea 02 XX Last administered on 08/12/17 02: 02; Admin Dose 1 EA; Start 08/12/17 at 02:00 Insulin Aspart (Adult SC Insulin - Mild Algorithm)... Q4 SC Last administered on 08/12/17 13:00; Admin Dose 1 UNIT; Start 08/11/17 at 10:13 Sodium Chloride (1/2 NS) 1,000 ml @ 75 mls/hr [id number] IV Last administered on 08/12/17 09:39; Admin Dose 75 MLS/HR; Start 08/11/17 at 13:30 Metoprolol Tartrate (Lopressor) 25 mg BID GTB Last administered on 08/12/17 09 :40; Admin Dose 25 MG; Start 08/11/17 at 21:00 Insulin Glargine (Lantus) 40 unit AM SC Last administered on 08/12/17 09:46; Admin Dose 40 UNIT; Start 08/12/17 at 09:00 Sodium Hypochlorite (Dakin'S (1/4 Strength)) 1 applic BID IRR Last administered on 08/12/17 09:51; Admin Dose 1 APPLIC; Start 08/11/17 at 21:00 Insulin Aspart 4 unit 4 unit Q6 SC Last administered on 08/12/17 12:00; Admin Dose 4 UNIT; Start 08/11/17 at 18:00 Vancomycin HCl 100 ml @ 100 mls/hr Q12H IVPB Last administered on 08/12/17 13 :16; Admin Dose 100 MLS/HR; Start 08/12/17 at 13:00 Ceftriaxone Sodium 50 ml @ 100 mls/hr Q24H IVPB ; Start 08/12/17 at 13:30 Metronidazole (Flagyl 500 Mg (Pmx)) 100 ml @ 100 mls/hr Q8 IVPB Last administered on 08/12/17t 17:48; Admin Dose 100 MLS/HR; Start 08/12/17 at 14:00 Enoxaparin Sodium (Lovenox) 40 mg DAILY SC ; Start 08/12/17 at 15:00 JAKE RAO MD Aug 12, 2017 17:53
[2017-08-12] MEDS: CEFTRIAXONE 1 GM/NS 50 ML IVPB SCH (17:58)
[2017-08-12] MEDS: ENOXAPARIN 40 MG/0.4 ML SYG SC SCH (18:02)
[2017-08-12] MEDS: DOCUSATE SODIUM 10 MG/ML (10ML CUP) GTB SCH (21:40)
[2017-08-12] MEDS: MAGNESIUM HYDROXIDE 30ML CUP GTB SCH (21:40)
[2017-08-12] MEDS: LATANOPROST 0.005% 2.5 ML OPH BOTH EYES SCH (21:42)
[2017-08-12] MEDS: OCULAR LUBRICANT 3.5 GM OPH OINT BOTH EYES SCH (21:43)
[2017-08-12] MEDS: ATORVASTATIN 40 MG TAB GTB SCH (21:43)
[2017-08-12] MEDS: ACETAMINOPHEN 325 MG TAB GTB PRN (21:43)
--- NOTE | 2017-08-12 21:57 | RADRPT ---
PROCEDURE: Right upper quadrant abdominal ultrasound. CLINICAL INDICATION: Abdominal pain, abnormal liver function tests TECHNIQUE: Newell scale and color doppler ultrasound images of the right upper quadrant of the abdom en. COMPARISON: None FINDINGS: Pancreas: Visualized portions appear of normal echogenicity without focal lesions. Liver: Morphology:Normal in size. 15.9 cm. Contour:Normal, no evidence of nodularity. Echogenicity: Normal. Focal lesions:None. Main portal vein: Patent with hepatopetal flow. Biliary System: Gallbladder wall: Normal thickness. Gallstones: None. Intrahepatic bile ducts: Normal caliber. Common bile duct diameter (mm): 3.1 Kidneys: Right length (cm) : 9.4 Right cortical thickness: Normal. Echogenicity: Normal. Hydronephrosis: None. Renal calculi: None. Focal lesions: None. Free fluid/ascites: None. 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 Other findings: None. IMPRESSION: Normal gallbladder without gallstones. Normal caliber intrahepatic and extrahepatic biliary system. Normal appearance the liver without focal hepatic lesion. RPTAT: AADD .Suhail Lopez MD, MD Date Time Electronically viewed and signed by .Suhail Lopez MD, on 08/12/2017 21:56 .B/
[2017-08-13] VITALS (10 sets, daily range): BP systolic 98–149; BP diastolic 49–72; PULSE 75–101; RESP 16–20
[2017-08-13] MEDS: INSULIN ASPART [NOVOLOG] 3 ML PEN SC SCH ×9 (01:00→20:45)
[2017-08-13] MEDS: VANCOMYCIN 500MG/NS (PMX) 100 ML IVPB SCH ×2 (01:03→13:19)
[2017-08-13] MEDS: ACCU-CHEK XX SCH ×2 (01:05)
[2017-08-13] MEDS: SOD CHLORIDE 0.45% 1,000 ML IV SCH ×2 (03:47→17:52)
[2017-08-13] MEDS: LANSOPRAZOLE 30 MG CAP GTB SCH (05:28)
[2017-08-13] MEDS: metroNIDAZOLE 500 MG/NS (PMX) 100 ML IVPB SCH ×3 (05:29→20:40)
[2017-08-13] MEDS: DILTIAZEM 60 MG TAB GTB SCH ×3 (05:30→20:41)
[2017-08-13 07:17] LABS: CREATININE 0.56 mg/dl (0.44-1.00)
[2017-08-13 07:59] LABS: ABNORMAL IP MESSAGE 1; BASOPHIL # 0.1 10^3/ul (0.0-0.1); BASOPHILS % 0.3 % (0.0-2.0); EOSINOPHILS # 1.1 10^3/ul (0.0-0.5); EOSINOPHILS % 4.4 % (0.0-7.0); HEMATOCRIT 29.3 % (37.0-47.0); HEMOGLOBIN 8.7 g/dl (12.0-16.0); LYMPHOCYTES % 4.1 % (15.0-51.0); MEAN CORPUSCULAR HEMOGLOBIN 26.3 pg (29.0-33.0); MEAN CORPUSCULAR HGB CONC 29.7 g/dl (32.0-37.0); MEAN CORPUSCULAR VOLUME 88.5 fl (82.0-101.0); MEAN PLATELET VOLUME 10.2 fl (7.4-10.4); MONOCYTE # 0.9 10^3/ul (0.3-0.9); MONOCYTES % 3.4 % (0.0-11.0); PLATELET COUNT 582 10^3/UL (140-415); RED BLOOD COUNT 3.31 10^6/ul (4.20-5.40); RED CELL DISTRIBUTION WIDTH 18.3 % (11.5-14.5)
[2017-08-13 08:05] LABS: POSITIVE DIFF @See below
[2017-08-13] MEDS: LEVETIRACETAM (100 MG/ML) 5ML CUP GTB SCH ×2 (08:09→20:40)
[2017-08-13] MEDS: MULTIVITAMINS THERAPEUTIC TAB GTB SCH (08:10)
[2017-08-13] MEDS: FUROSEMIDE 20 MG TAB GTB SCH (08:10)
[2017-08-13] MEDS: METOPROLOL 25 MG TAB GTB SCH ×2 (08:10→20:49)
[2017-08-13] MEDS: MAGNESIUM OXIDE 400 MG TAB GTB SCH ×3 (08:10→20:41)
[2017-08-13] MEDS: traMADol 50 MG TAB GTB SCH ×2 (08:11→20:48)
[2017-08-13] MEDS: FERROUS SULFATE 60 MG/ML 5ML CUP GTB SCH ×2 (08:19→20:40)
[2017-08-13] MEDS: ASCORBIC ACID 500 MG TAB GTB SCH ×3 (08:19→20:41)
[2017-08-13] MEDS: SODIUM HYPOCHLORITE 0.125% 473 ML BTL IRR SCH ×2 (08:20→20:43)
[2017-08-13] MEDS: INSULIN GLARGINE [LANtus] 3 ML PEN SC SCH (08:27)
[2017-08-13] MEDS: ENOXAPARIN 40 MG/0.4 ML SYG SC SCH (08:32)
--- NOTE | 2017-08-13 11:55 | PN ---
Date/Time of Note Date/Time of Note DATE: 08/13/17 TIME: 11:41 Assessment/Plan Lines/Catheters IV Catheter Type (from [facility]): Peripheral IV Shields in Place (from [facility]): No Assessment/Plan Chief Complaint/Hosp Course 1. Sacral wound stage IV with osteomyelitis: -debridement when medically improved -local care with dakin's -iv abx per sensitivities -frequent turning and offloading -low airloss mattress -nutrition optimization -vitamin c/short term zinc 2. Vomiting with abdominal distention and ?sbo: KUB without evidence of obstruction; +bowel function: vomiting likely 2/2 rate of medication administration per nursing; imaging noted -slow medication administration per gtube: use gravity -monitor 3. UTI: cultures noted -cath care -abx per sensitivities 4. Bacteremia -abx per sensitivities 5. Sepsis with Leukocytosis: likely 2/2 above -as above 6. Hypochromic anemia: no acute bleed noted -monitor and transfuse as needed -workup per medical team 7. Thrombocytosis: 2/2 infection vs. other; improving -monitor and workup if persistent 8. DM/ Hyperglycemia: with episodes of hypoglycemia -blood sugar optimization 9. Elevated alk phos: 2/2 osteo vs. gi source (doubt): abd us noted -monitor 10. HTN: -medical optimization 11. Dysphagia with feeding per feeding tube -cont tf with aspiration precautions 12. Hx. of bipolar disorder/schizophrenia -medical./psych management 13. History of epilepsy -sz precautions Thank you. Patient seen and examined in collaboration with Dr. Eric Tineo. Problems: Subjective 24 Hr Interval Summary Leukocytosis. No c/o abdominal pain/nausea. Tolerating tf. +bowel function. Wounds with min/mod drainage. No fevers, chills, sob, cp, palpitations, dysuria , n/v/d, change in tele rhythm. Min tachycardia. Exam/Review of Systems Vital Signs Vitals Vital Signs Date Time Temp Pulse Resp B/P Pulse Ox O2 Delivery O2 Flow Rate FiO2 08/13/17 08:29 101 08/13/17 07:48 99.8 20 117/55 94 08/13/17 04:00 Nasal Cannula 2.0 Intake and Output 08/12/17 08/12/17 08/13/17 15:00 23:00 07:00 Intake Total 2170 ml 1654 ml Output Total 1950 ml 700 ml Balance 220 ml 954 ml Exam Free Text/Dictation Constitutional: alert, oriented (to self), other (answers simple questions), warm Psych: nl mood/affect Head: atraumatic, normocephalic Eyes: nl lids, nl sclera ENMT: mucosa pink and moist Neck: non-tender, supple Respiratory: normal air movement Cardiovascular: other (ST), regular rate and rhythm Gastrointestinal: bowel sounds, distended (MIN), non-tender, other (GTUBE), soft Genitourinary - Female: nl external genitalia Musculoskeletal: other (stiffness) Extremities: normal pulses, No edema Neurological: nl speech, No nl mental status (slow to respond), No nl strength Skin: other (multple wounds, sacral ulcer packed with periwound erythema, min drainage) ble leg wounds Results Result Diagram: 08/13/17 0722 08/13/17 0607 SOREN LISA NP Aug 13, 2017 11:51
[2017-08-13] MEDS: ACETAMINOPHEN 325 MG TAB GTB PRN (13:23)
[2017-08-13] MEDS: CEFTRIAXONE 1 GM/NS 50 ML IVPB SCH (13:29)
--- NOTE | 2017-08-13 17:12 | CONS ---
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 - h/o UTI d/t ESBL+E.Coli 12/03/2016 Recommendations: - Repeat blood cultures x2 sets, 15 min apart - continue vanco - change byron to ceftriaxone based on wound and urine cx sensitivities - add empiric IV flagyl - follow up final culture results and trend WBC - consider cdiff testing (however no reports of diarrhea) - consider isolation - agree with debridement Problems: Consultation Date/Type/Reason Admit Date/Time Aug 10, 2017 at 14:12 Type of Consultation: id Referring Provider: LUZMA HYMAN MD Exam/Review of Systems Vital Signs Vitals Vital Signs Date Time Temp Pulse Resp B/P Pulse Ox O2 Delivery O2 Flow Rate FiO2 08/13/17 16:29 93 08/13/17 15:11 98.9 20 109/53 95 08/13/17 08:20 Nasal Cannula 2.0 Intake and Output 08/12/17 08/12/17 08/13/17 14:59 22:59 06:59 Intake Total 2170 ml 1654 ml Output Total 1950 ml 700 ml Balance 220 ml 954 ml Results Result Diagram: 08/13/17 0722 08/13/17 0607 Results 24 hrs Laboratory Tests Test 08/12/17 17:41 08/12/17 18:25 08/12/17 21:49 08/12/17 22:18 Bedside Glucose 56 L 101 50 L 188 Test 08/12/17 22:33 08/12/17 23:51 08/13/17 01:02 08/13/17 05:07 Bedside Glucose 157 128 105 92 Test 08/13/17 06:07 08/13/17 06:27 08/13/17 07:22 08/13/17 07:56 Sodium Level 140 Potassium Level 4.0 Chloride Level 100 Carbon Dioxide Level 31 Anion Gap 13 Blood Urea Nitrogen 22 H Creatinine 0.56 Glucose Level 79 Calcium Level 9.0 Bedside Glucose 118 117 White Blood Count 25.0 H Red Blood Count 3.31 L Hemoglobin 8.7 L Hematocrit 29.3 L Mean Corpuscular Volume 88.5 Mean Corpuscular Hemoglobin 26.3 L Mean Corpuscular Hemoglobin Concent 29.7 L Red Cell Distribution Width 18.3 H Platelet Count 582 #H Mean Platelet Volume 10.2 Neutrophils % 87.0 H Lymphocytes % 4.1 L Monocytes % 3.4 Eosinophils % 4.4 Basophils % 0.3 Nucleated Red Blood Cells % 0.0 Neutrophils # (Manual) 21.7 H Lymphocytes # 1.0 Monocytes # 0.9 Eosinophils # 1.1 H Basophils # 0.1 Nucleated Red Blood Cells # 0.0 Test 08/13/17 13:10 Bedside Glucose 138 Medications Medications Current Medications Acetaminophen (Tylenol Tab) 650 mg Q4H PRN GTB MILD PAIN LEVEL 1-3 Last administered on 08/13/17 13:23; Admin Dose 650 MG; Start 08/10/17 at 16:00 Eye Lubricant (Akwa Oint) 1 applic HS BOTH EYES Last administered on 08/12/17 21:43; Admin Dose 1 APPLIC; Start 08/10/17 at 21:00 Ascorbic Acid (Vitamin C) 500 mg TID GTB Last administered on 08/13/17 13:18; Admin Dose 500 MG; Start 08/10/17 at 21:00 Atorvastatin Calcium (Lipitor) 40 mg QHS GTB Last administered on 08/12/17 21: 43; Admin Dose 40 MG; Start 08/10/17 at 21:00 Bisacodyl (Dulcolax Supp) 10 mg DAILY PRN LA PRN; Start 08/10/17 at 16:00 Docusate Sodium (Colace Liquid Cup) 200 mg QHS GTB Last administered on 21:40; Admin Dose 200 MG; Start 08/10/17 at 21:00 Furosemide (Lasix) 20 mg DAILY GTB Last administered on 08/13/17 08:10; Admin Dose 20 MG; Start 08/11/17 at 09:00 Levetiracetam (Keppra Liquid) 500 mg BID GTB Last administered on 08/13/17 08: 09; Admin Dose 500 MG; Start 08/10/17 at 21:00 Magnesium Hydroxide (Milk Of Mag) 30 ml QHS GTB Last administered on 08/12/17 21:40; Admin Dose 30 ML; Start 08/10/17 at 21:00 Magnesium Oxide (Mag-Ox 400) 400 mg TID GTB Last administered on 08/13/17 13: 18; Admin Dose 400 MG; Start 08/10/17 at 21:00 Metoclopramide HCl (Reglan Liq) 10 mg Q6H PRN GTB NAUSEA AND/OR VOMITING; Start 08/10/17 at 16:00 Ondansetron HCl (Zofran Tab) 4 mg Q6H PRN GTB NAUSEA AND/OR VOMITING; Start 08/10/17 at 16:00 Sodium Biphosphate/ Sodium Phosphate (Fleet Enema) 133 ml Q24H PRN LA CONSTIPATION; Start 08/10/17 at 17:00 Tramadol HCl (Ultram) 50 mg BID GTB Last administered on 08/13/17 08:11; Admin Dose 50 MG; Start 08/10/17 at 21:00 Ferrous Sulfate (Feosol Liquid Cup) 300 mg BID GTB Last administered on 08:19; Admin Dose 300 MG; Start 08/10/17 at 21:00 Multivitamins Therapeutic (Theragran) 1 tab DAILY GTB Last administered on 08/13 08:10; Admin Dose 1 TAB; Start 08/11/17 at 09:00 Lansoprazole (Prevacid) 30 mg DAILY@06 GTB Last administered on 08/13/17 05:28 ; Admin Dose 30 MG; Start 08/11/17 at 06:00 Diltiazem HCl (Cardizem) 60 mg Q8 GTB Last administered on 08/13/17 13:22; Admin Dose 60 MG; Start 08/10/17 at 22:00 Miscellaneous Information 1 ea NOTE XX ; Start 08/10/17 at 16:30 Glucose (Glutose) 15 gm Q15M PRN PO DECREASED GLUCOSE; Start 08/10/17 at 16:30 Glucose (Glutose) 22.5 gm Q15M PRN PO DECREASED GLUCOSE; Start 08/10/17 at 16:30 Dextrose (D50w Syringe) 25 ml Q15M PRN IV DECREASED GLUCOSE Last administered on 08/12/17 17:48; Admin Dose 25 ML; Start 08/10/17 at 16:30 Dextrose (D50w Syringe) 50 ml Q15M PRN IV DECREASED GLUCOSE Last administered on 08/12/17 21:56; Admin Dose 50 ML; Start 08/10/17 at 16:30 Glucagon (Glucagen) 1 mg Q15M PRN IM DECREASED GLUCOSE; Start 08/10/17 at 16:30 Glucose (Glutose) 15 gm Q15M PRN BUCCAL DECREASED GLUCOSE; Start 08/10/17 at 16: 30 Latanoprost (Xalatan) 1 drop HS BOTH EYES Last administered on 08/12/17 21:42 ; Admin Dose 1 DROP; Start 08/10/17 at 21:00 Diagnostic Test (Pha) (Accu-Chek) 1 ea 02 XX Last administered on 08/12/17 02: 02; Admin Dose 1 EA; Start 08/12/17 at 02:00 Diagnostic Test (Pha) (Accu-Chek) 1 ea 02 XX Last administered on 08/12/17 02: 02; Admin Dose 1 EA; Start 08/12/17 at 02:00 Insulin Aspart (Adult SC Insulin - Mild Algorithm)... Q4 SC Last administered on 08/12/17 13:00; Admin Dose 1 UNIT; Start 08/11/17 at 10:13 Sodium Chloride (1/2 NS) 1,000 ml @ 75 mls/hr [id number] IV Last administered on 08/13/17 03:47; Admin Dose 75 MLS/HR; Start 08/11/17 at 13:30 Metoprolol Tartrate (Lopressor) 25 mg BID GTB Last administered on 08/13/17 08 :10; Admin Dose 25 MG; Start 08/11/17 at 21:00 Insulin Glargine (Lantus) 40 unit AM SC Last administered on 08/13/17 08:27; Admin Dose 40 UNIT; Start 08/12/17 at 09:00 Sodium Hypochlorite (Dakin'S (1/4 Strength)) 1 applic BID IRR Last administered on 08/13/17 08:20; Admin Dose 1 APPLIC; Start 08/11/17 at 21:00 Insulin Aspart 4 unit 4 unit Q6 SC Last administered on 08/13/17 13:14; Admin Dose 4 UNIT; Start 08/11/17 at 18:00 Vancomycin HCl 100 ml @ 100 mls/hr Q12H IVPB Last administered on 08/13/17 13 :19; Admin Dose 100 MLS/HR; Start 08/12/17 at 13:00 Ceftriaxone Sodium 50 ml @ 100 mls/hr Q24H IVPB Last administered on 13:29; Admin Dose 100 MLS/HR; Start 08/12/17 at 13:30 Metronidazole (Flagyl 500 Mg (Pmx)) 100 ml @ 100 mls/hr Q8 IVPB Last administered on 08/13/17 15:21; Admin Dose 100 MLS/HR; Start 08/12/17 at 14:00 Enoxaparin Sodium (Lovenox) 40 mg DAILY SC Last administered on 08/13/17 08:32 ; Admin Dose 40 MG; Start 08/12/17 at 15:00 Miscellaneous Information (*Rx Drug Level Order Reminder*) VANCO TROUGH @ 1, 200 ON... ONCE ONCE XX ; Start 08/14/17 at 12:00; Stop 08/14/17 at 12:01 BENITO THOMAS MD Aug 13, 2017 17:11
--- NOTE | 2017-08-13 18:02 | CONS ---
Date/Time of Note Date/Time of Note DATE: 08/13/17 TIME: 18:00 Assessment/Plan Assessment/Plan Chief Complaint/Hosp Course 56 year old woman brought in to [facility] from a [facility] facility where patient [facility]. Patient with multiple comorbidities found to have a UTI and a stage IV infected decubitus ulcer. Admitted for sepsis. Noted to have uncontrolled blood glucose levels into the 400 range. Patient was receiving continuous tube feeds thru her G tube which has been temporarily suspended as work up for possible obstruction going on. I have been asked to see patient in consultation for management of blood glucose levels. Problems: (1) Diabetes mellitus, type 2 Status: Chronic Comment: On continuous tube feeds. Now with improved glycemic control as infection being treated. Qualifiers: Diabetes mellitus complication status: with hyperglycemia Diabetes mellitus long chain beamer insulin use: without long chain beamer use Qualified Code: E11.65 - Type 2 diabetes mellitus with hyperglycemia, without long-term current use of insulin Additional Assessment/Plan Continue current insulin dose and schedule. Consultation Date/Type/Reason Admit Date/Time Aug 10, 2017 at 14:12 Initial Consult Date 08/11/17 Type of Consultation: endocrine Reason for Consultation DM management Referring Provider: LUZMA HYMAN MD Exam/Review of Systems Vital Signs Vitals Vital Signs Date Time Temp Pulse Resp B/P Pulse Ox O2 Delivery O2 Flow Rate FiO2 08/13/17 16:29 93 08/13/17 15:11 98.9 20 109/53 95 08/13/17 08:20 Nasal Cannula 2.0 Intake and Output 08/12/17 08/12/17 08/13/17 15:00 23:00 07:00 Intake Total 2170 ml 1654 ml Output Total 1950 ml 700 ml Balance 220 ml 954 ml Results Result Diagram: 08/13/17 0722 08/13/17 0607 Results 24 hrs Laboratory Tests Test 08/12/17 18:25 08/12/17 21:49 08/12/17 22:18 08/12/17 22:33 Bedside Glucose 101 50 L 188 157 Test 08/12/17 23:51 08/13/17 01:02 08/13/17 05:07 08/13/17 06:07 Bedside Glucose 128 105 92 Sodium Level 140 Potassium Level 4.0 Chloride Level 100 Carbon Dioxide Level 31 Anion Gap 13 Blood Urea Nitrogen 22 H Creatinine 0.56 Glucose Level 79 Calcium Level 9.0 Test 08/13/17 06:27 08/13/17 07:22 08/13/17 07:56 08/13/17 13:10 Bedside Glucose 118 117 138 White Blood Count 25.0 H Red Blood Count 3.31 L Hemoglobin 8.7 L Hematocrit 29.3 L Mean Corpuscular Volume 88.5 Mean Corpuscular Hemoglobin 26.3 L Mean Corpuscular Hemoglobin Concent 29.7 L Red Cell Distribution Width 18.3 H Platelet Count 582 #H Mean Platelet Volume 10.2 Neutrophils % 87.0 H Lymphocytes % 4.1 L Monocytes % 3.4 Eosinophils % 4.4 Basophils % 0.3 Nucleated Red Blood Cells % 0.0 Neutrophils # (Manual) 21.7 H Lymphocytes # 1.0 Monocytes # 0.9 Eosinophils # 1.1 H Basophils # 0.1 Nucleated Red Blood Cells # 0.0 Test 08/13/17 17:39 Bedside Glucose 184 Medications Medications Current Medications Acetaminophen (Tylenol Tab) 650 mg Q4H PRN GTB MILD PAIN LEVEL 1-3 Last administered on 08/13/17 13:23; Admin Dose 650 MG; Start 08/10/17 at 16:00 Eye Lubricant (Akwa Oint) 1 applic HS BOTH EYES Last administered on 08/12/17 21:43; Admin Dose 1 APPLIC; Start 08/10/17 at 21:00 Ascorbic Acid (Vitamin C) 500 mg TID GTB Last administered on 08/13/17 13:18; Admin Dose 500 MG; Start 08/10/17 at 21:00 Atorvastatin Calcium (Lipitor) 40 mg QHS GTB Last administered on 08/12/17 21: 43; Admin Dose 40 MG; Start 08/10/17 at 21:00 Bisacodyl (Dulcolax Supp) 10 mg DAILY PRN AR PRN; Start 08/10/17 at 16:00 Docusate Sodium (Colace Liquid Cup) 200 mg QHS GTB Last administered on 21:40; Admin Dose 200 MG; Start 08/10/17 at 21:00 Furosemide (Lasix) 20 mg DAILY GTB Last administered on 08/13/17 08:10; Admin Dose 20 MG; Start 08/11/17 at 09:00 Levetiracetam (Keppra Liquid) 500 mg BID GTB Last administered on 08/13/17 08: 09; Admin Dose 500 MG; Start 08/10/17 at 21:00 Magnesium Hydroxide (Milk Of Mag) 30 ml QHS GTB Last administered on 08/12/17 21:40; Admin Dose 30 ML; Start 08/10/17 at 21:00 Magnesium Oxide (Mag-Ox 400) 400 mg TID GTB Last administered on 08/13/17 13: 18; Admin Dose 400 MG; Start 08/10/17 at 21:00 Metoclopramide HCl (Reglan Liq) 10 mg Q6H PRN GTB NAUSEA AND/OR VOMITING; Start 08/10/17 at 16:00 Ondansetron HCl (Zofran Tab) 4 mg Q6H PRN GTB NAUSEA AND/OR VOMITING; Start 08/10/17 at 16:00 Sodium Biphosphate/ Sodium Phosphate (Fleet Enema) 133 ml Q24H PRN AR CONSTIPATION; Start 08/10/17 at 17:00 Tramadol HCl (Ultram) 50 mg BID GTB Last administered on 08/13/17 08:11; Admin Dose 50 MG; Start 08/10/17 at 21:00 Ferrous Sulfate (Feosol Liquid Cup) 300 mg BID GTB Last administered on 08:19; Admin Dose 300 MG; Start 08/10/17 at 21:00 Multivitamins Therapeutic (Theragran) 1 tab DAILY GTB Last administered on 08/13 08:10; Admin Dose 1 TAB; Start 08/11/17 at 09:00 Lansoprazole (Prevacid) 30 mg DAILY@06 GTB Last administered on 08/13/17 05:28 ; Admin Dose 30 MG; Start 08/11/17 at 06:00 Diltiazem HCl (Cardizem) 60 mg Q8 GTB Last administered on 08/13/17 13:22; Admin Dose 60 MG; Start 08/10/17 at 22:00 Miscellaneous Information 1 ea NOTE XX ; Start 08/10/17 at 16:30 Glucose (Glutose) 15 gm Q15M PRN PO DECREASED GLUCOSE; Start 08/10/17 at 16:30 Glucose (Glutose) 22.5 gm Q15M PRN PO DECREASED GLUCOSE; Start 08/10/17 at 16:30 Dextrose (D50w Syringe) 25 ml Q15M PRN IV DECREASED GLUCOSE Last administered on 08/12/17 17:48; Admin Dose 25 ML; Start 08/10/17 at 16:30 Dextrose (D50w Syringe) 50 ml Q15M PRN IV DECREASED GLUCOSE Last administered on 08/12/17 21:56; Admin Dose 50 ML; Start 08/10/17 at 16:30 Glucagon (Glucagen) 1 mg Q15M PRN IM DECREASED GLUCOSE; Start 08/10/17 at 16:30 Glucose (Glutose) 15 gm Q15M PRN BUCCAL DECREASED GLUCOSE; Start 08/10/17 at 16: 30 Latanoprost (Xalatan) 1 drop HS BOTH EYES Last administered on 08/12/17 21:42 ; Admin Dose 1 DROP; Start 08/10/17 at 21:00 Diagnostic Test (Pha) (Accu-Chek) 1 ea 02 XX Last administered on 08/12/17 02: 02; Admin Dose 1 EA; Start 08/12/17 at 02:00 Diagnostic Test (Pha) (Accu-Chek) 1 ea 02 XX Last administered on 08/12/17 02: 02; Admin Dose 1 EA; Start 08/12/17 at 02:00 Insulin Aspart (Adult SC Insulin - Mild Algorithm)... Q4 SC Last administered on 08/13/17 17:50; Admin Dose 2 UNIT; Start 08/11/17 at 10:13 Sodium Chloride (1/2 NS) 1,000 ml @ 75 mls/hr [id number] IV Last administered on 08/13/17 03:47; Admin Dose 75 MLS/HR; Start 08/11/17 at 13:30 Metoprolol Tartrate (Lopressor) 25 mg BID GTB Last administered on 08/13/17 08 :10; Admin Dose 25 MG; Start 08/11/17 at 21:00 Insulin Glargine (Lantus) 40 unit AM SC Last administered on 08/13/17 08:27; Admin Dose 40 UNIT; Start 08/12/17 at 09:00 Sodium Hypochlorite (Dakin'S (1/4 Strength)) 1 applic BID IRR Last administered on 08/13/17 08:20; Admin Dose 1 APPLIC; Start 08/11/17 at 21:00 Insulin Aspart 4 unit 4 unit Q6 SC Last administered on 08/13/17 17:51; Admin Dose 4 UNIT; Start 08/11/17 at 18:00 Vancomycin HCl 100 ml @ 100 mls/hr Q12H IVPB Last administered on 08/13/17 13 :19; Admin Dose 100 MLS/HR; Start 08/12/17 at 13:00 Ceftriaxone Sodium 50 ml @ 100 mls/hr Q24H IVPB Last administered on 13:29; Admin Dose 100 MLS/HR; Start 08/12/17 at 13:30 Metronidazole (Flagyl 500 Mg (Pmx)) 100 ml @ 100 mls/hr Q8 IVPB Last administered on 08/13/17 15:21; Admin Dose 100 MLS/HR; Start 08/12/17 at 14:00 Enoxaparin Sodium (Lovenox) 40 mg DAILY SC Last administered on 08/13/17 08:32 ; Admin Dose 40 MG; Start 08/12/17 at 15:00 Miscellaneous Information (*Rx Drug Level Order Reminder*) VANCO TROUGH @ 1, 200 ON... ONCE ONCE XX ; Start 08/14/17 at 12:00; Stop 08/14/17 at 12:01 JABARI MCKINNEY MD Aug 13, 2017 18:02
--- NOTE | 2017-08-13 20:11 | PN ---
Date/Time of Note Date/Time of Note DATE: 08/13/17 TIME: 20:11 Assessment/Plan Lines/Catheters IV Catheter Type (from [facility]): Peripheral IV Urinary Cath still in place: No Assessment/Plan Assessment/Plan -Sepsis secondary to UTI - admit as inpatient - ID consult --Infected decubitus ulcer - per SX Consult - plan for bed side debridement tomorrow - UTI - Cont antibiotics - Persistent Hyperglycemia - Endocrinology consult- Dr Matthews notified - cont to monitor -Thrombocytosis - Hematology consult- Dr WOLF - Anemia -Dysphagia- sp G tube placement - aspiration precautions - Epilepsy - seizure precautions - encephalopathy - CVA - CAD - Hypertension - Hx DVT - dementia - bipolar - schizophrenia - SCDs for DVT Prophylaxis.Will wait for Lovenox- Anticipating surgical intervention. Plan of care dw Dr Salvador/staff Exam/Review of Systems Vital Signs Vitals Vital Signs Date Time Temp Pulse Resp B/P Pulse Ox O2 Delivery O2 Flow Rate FiO2 08/13/17 16:29 93 08/13/17 15:20 2.0 08/13/17 15:11 98.9 20 109/53 95 08/13/17 08:20 Nasal Cannula Intake and Output 08/12/17 08/12/17 08/13/17 15:00 23:00 07:00 Intake Total 2170 ml 1654 ml Output Total 1950 ml 700 ml Balance 220 ml 954 ml Results Result Diagram: 08/13/17 0722 08/13/17 0607 Results 24 hrs Laboratory Tests Test 08/12/17 21:49 08/12/17 22:18 08/12/17 22:33 08/12/17 23:51 Bedside Glucose 50 L 188 157 128 Test 08/13/17 01:02 08/13/17 05:07 08/13/17 06:07 08/13/17 06:27 Bedside Glucose 105 92 118 Sodium Level 140 Potassium Level 4.0 Chloride Level 100 Carbon Dioxide Level 31 Anion Gap 13 Blood Urea Nitrogen 22 H Creatinine 0.56 Glucose Level 79 Calcium Level 9.0 Test 08/13/17 07:22 08/13/17 07:56 08/13/17 13:10 08/13/17 17:39 White Blood Count 25.0 H Red Blood Count 3.31 L Hemoglobin 8.7 L Hematocrit 29.3 L Mean Corpuscular Volume 88.5 Mean Corpuscular Hemoglobin 26.3 L Mean Corpuscular Hemoglobin Concent 29.7 L Red Cell Distribution Width 18.3 H Platelet Count 582 #H Mean Platelet Volume 10.2 Neutrophils % 87.0 H Lymphocytes % 4.1 L Monocytes % 3.4 Eosinophils % 4.4 Basophils % 0.3 Nucleated Red Blood Cells % 0.0 Neutrophils # (Manual) 21.7 H Lymphocytes # 1.0 Monocytes # 0.9 Eosinophils # 1.1 H Basophils # 0.1 Nucleated Red Blood Cells # 0.0 Bedside Glucose 117 138 184 Medications Medications Current Medications Acetaminophen (Tylenol Tab) 650 mg Q4H PRN GTB MILD PAIN LEVEL 1-3 Last administered on 08/13/17 13:23; Admin Dose 650 MG; Start 08/10/17 at 16:00 Eye Lubricant (Akwa Oint) 1 applic HS BOTH EYES Last administered on 08/12/17 21:43; Admin Dose 1 APPLIC; Start 08/10/17 at 21:00 Ascorbic Acid (Vitamin C) 500 mg TID GTB Last administered on 08/13/17 13:18; Admin Dose 500 MG; Start 08/10/17 at 21:00 Atorvastatin Calcium (Lipitor) 40 mg QHS GTB Last administered on 08/12/17 21: 43; Admin Dose 40 MG; Start 08/10/17 at 21:00 Bisacodyl (Dulcolax Supp) 10 mg DAILY PRN ME PRN; Start 08/10/17 at 16:00 Docusate Sodium (Colace Liquid Cup) 200 mg QHS GTB Last administered on 21:40; Admin Dose 200 MG; Start 08/10/17 at 21:00 Furosemide (Lasix) 20 mg DAILY GTB Last administered on 08/13/17 08:10; Admin Dose 20 MG; Start 08/11/17 at 09:00 Levetiracetam (Keppra Liquid) 500 mg BID GTB Last administered on 08/13/17 08: 09; Admin Dose 500 MG; Start 08/10/17 at 21:00 Magnesium Hydroxide (Milk Of Mag) 30 ml QHS GTB Last administered on 08/12/17 21:40; Admin Dose 30 ML; Start 08/10/17 at 21:00 Magnesium Oxide (Mag-Ox 400) 400 mg TID GTB Last administered on 08/13/17 13: 18; Admin Dose 400 MG; Start 08/10/17 at 21:00 Metoclopramide HCl (Reglan Liq) 10 mg Q6H PRN GTB NAUSEA AND/OR VOMITING; Start 08/10/17 at 16:00 Ondansetron HCl (Zofran Tab) 4 mg Q6H PRN GTB NAUSEA AND/OR VOMITING; Start 08/10/17 at 16:00 Sodium Biphosphate/ Sodium Phosphate (Fleet Enema) 133 ml Q24H PRN ME CONSTIPATION; Start 08/10/17 at 17:00 Tramadol HCl (Ultram) 50 mg BID GTB Last administered on 08/13/17 08:11; Admin Dose 50 MG; Start 08/10/17 at 21:00 Ferrous Sulfate (Feosol Liquid Cup) 300 mg BID GTB Last administered on 08:19; Admin Dose 300 MG; Start 08/10/17 at 21:00 Multivitamins Therapeutic (Theragran) 1 tab DAILY GTB Last administered on 08/13 08:10; Admin Dose 1 TAB; Start 08/11/17 at 09:00 Lansoprazole (Prevacid) 30 mg DAILY@06 GTB Last administered on 08/13/17 05:28 ; Admin Dose 30 MG; Start 08/11/17 at 06:00 Diltiazem HCl (Cardizem) 60 mg Q8 GTB Last administered on 08/13/17 13:22; Admin Dose 60 MG; Start 08/10/17 at 22:00 Miscellaneous Information 1 ea NOTE XX ; Start 08/10/17 at 16:30 Glucose (Glutose) 15 gm Q15M PRN PO DECREASED GLUCOSE; Start 08/10/17 at 16:30 Glucose (Glutose) 22.5 gm Q15M PRN PO DECREASED GLUCOSE; Start 08/10/17 at 16:30 Dextrose (D50w Syringe) 25 ml Q15M PRN IV DECREASED GLUCOSE Last administered on 08/12/17 17:48; Admin Dose 25 ML; Start 08/10/17 at 16:30 Dextrose (D50w Syringe) 50 ml Q15M PRN IV DECREASED GLUCOSE Last administered on 08/12/17 21:56; Admin Dose 50 ML; Start 08/10/17 at 16:30 Glucagon (Glucagen) 1 mg Q15M PRN IM DECREASED GLUCOSE; Start 08/10/17 at 16:30 Glucose (Glutose) 15 gm Q15M PRN BUCCAL DECREASED GLUCOSE; Start 08/10/17 at 16: 30 Latanoprost (Xalatan) 1 drop HS BOTH EYES Last administered on 08/12/17 21:42 ; Admin Dose 1 DROP; Start 08/10/17 at 21:00 Diagnostic Test (Pha) (Accu-Chek) 1 ea 02 XX Last administered on 08/12/17 02: 02; Admin Dose 1 EA; Start 08/12/17 at 02:00 Diagnostic Test (Pha) (Accu-Chek) 1 ea 02 XX Last administered on 08/12/17 02: 02; Admin Dose 1 EA; Start 08/12/17 at 02:00 Insulin Aspart (Adult SC Insulin - Mild Algorithm)... Q4 SC Last administered on 08/13/17 17:50; Admin Dose 2 UNIT; Start 08/11/17 at 10:13 Sodium Chloride (1/2 NS) 1,000 ml @ 75 mls/hr [id number] IV Last administered on 08/13/17 03:47; Admin Dose 75 MLS/HR; Start 08/11/17 at 13:30 Metoprolol Tartrate (Lopressor) 25 mg BID GTB Last administered on 08/13/17 08 :10; Admin Dose 25 MG; Start 08/11/17 at 21:00 Insulin Glargine (Lantus) 40 unit AM SC Last administered on 08/13/17 08:27; Admin Dose 40 UNIT; Start 08/12/17 at 09:00 Sodium Hypochlorite (Dakin'S (1/4 Strength)) 1 applic BID IRR Last administered on 08/13/17 08:20; Admin Dose 1 APPLIC; Start 08/11/17 at 21:00 Insulin Aspart 4 unit 4 unit Q6 SC Last administered on 08/13/17 17:51; Admin Dose 4 UNIT; Start 08/11/17 at 18:00 Vancomycin HCl 100 ml @ 100 mls/hr Q12H IVPB Last administered on 08/13/17 13 :19; Admin Dose 100 MLS/HR; Start 08/12/17 at 13:00 Ceftriaxone Sodium 50 ml @ 100 mls/hr Q24H IVPB Last administered on 13:29; Admin Dose 100 MLS/HR; Start 08/12/17 at 13:30 Metronidazole (Flagyl 500 Mg (Pmx)) 100 ml @ 100 mls/hr Q8 IVPB Last administered on 08/13/17 15:21; Admin Dose 100 MLS/HR; Start 08/12/17 at 14:00 Enoxaparin Sodium (Lovenox) 40 mg DAILY SC Last administered on 08/13/17 08:32 ; Admin Dose 40 MG; Start 08/12/17 at 15:00 Miscellaneous Information (*Rx Drug Level Order Reminder*) VANCO TROUGH @ 1, 200 ON... ONCE ONCE XX ; Start 08/14/17 at 12:00; Stop 08/14/17 at 12:01 MICHAEL COLINDRES Aug 13, 2017 20:11
[2017-08-13] MEDS: MAGNESIUM HYDROXIDE 30ML CUP GTB SCH (20:40)
[2017-08-13] MEDS: ATORVASTATIN 40 MG TAB GTB SCH (20:40)
[2017-08-13] MEDS: DOCUSATE SODIUM 10 MG/ML (10ML CUP) GTB SCH (20:40)
[2017-08-13] MEDS: LATANOPROST 0.005% 2.5 ML OPH BOTH EYES SCH (20:42)
[2017-08-13] MEDS: OCULAR LUBRICANT 3.5 GM OPH OINT BOTH EYES SCH (20:43)
--- NOTE | 2017-08-13 23:27 | CONS ---
Date/Time of Note Date/Time of Note DATE: 08/13/17 TIME: 23:22 Assessment/Plan Assessment/Plan Chief Complaint/Hosp Course 56 yo with #Thrombocytosis -Pt has a marked Thrombocytosis in the setting of a chronically infected decubitus ulcer and osteomyelitis. platelets are declining with continued use of antibiotics -peripheral smear was reviewed by hematopathologist who noted patient's leukocytosis is reactive in nature and secondary to patient chronic inflammation -at this time there is no indications to send for flow cytometry or other molecular studies -if leukocytosis and thrombocytosis persist after treatment of the osteomyelitis and normalization of ESR, will check molecular studies and flow cytometry at that time #Leukocytosis -as stated above, this is likely reactive -will evaluate for myeloproliferative disorder and review peripheral smear #Sacral decubitus ulcer with osteomyelitis -continue antibiotics -will check ESR -f/u ID recommendations Problems: Consultation Date/Type/Reason Admit Date/Time Aug 10, 2017 at 14:12 Initial Consult Date 08/11/17 Type of Consultation: Hematology Reason for Consultation thrombocytosis/ leukocytosis Referring Provider: LUZMA HYMAN MD 24 HR Interval Summary Free Text/Dictation no acute overnight event. pt continues on antibiotics . WBC count stable but platelets are declining Exam/Review of Systems Vital Signs Vitals Vital Signs Date Time Temp Pulse Resp B/P Pulse Ox O2 Delivery O2 Flow Rate FiO2 08/13/17 21:30 Nasal Cannula 2.0 08/13/17 20:22 95 08/13/17 20:00 98.9 19 134/61 98 Intake and Output 08/12/17 08/12/17 08/13/17 15:00 23:00 07:00 Intake Total 2170 ml 1654 ml Output Total 1950 ml 700 ml Balance 220 ml 954 ml Exam Constitutional: alert, frail Psych: confusion, no complaints Head: normocephalic Eyes: nl conjunctiva ENMT: nl external ears & nose Neck: non-tender, supple Respiratory: clear to auscultation, crackles/rales Cardiovascular: nl pulses Gastrointestinal: other (G tube in place), soft Musculoskeletal: muscle weakness, nl extremities to inspection Results Result Diagram: 08/13/17 0722 08/13/17 0607 Results 24 hrs Laboratory Tests Test 08/12/17 23:51 08/13/17 01:02 08/13/17 05:07 08/13/17 06:07 Bedside Glucose 128 105 92 Sodium Level 140 Potassium Level 4.0 Chloride Level 100 Carbon Dioxide Level 31 Anion Gap 13 Blood Urea Nitrogen 22 H Creatinine 0.56 Glucose Level 79 Calcium Level 9.0 Test 08/13/17 06:27 08/13/17 07:22 08/13/17 07:56 08/13/17 13:10 Bedside Glucose 118 117 138 White Blood Count 25.0 H Red Blood Count 3.31 L Hemoglobin 8.7 L Hematocrit 29.3 L Mean Corpuscular Volume 88.5 Mean Corpuscular Hemoglobin 26.3 L Mean Corpuscular Hemoglobin Concent 29.7 L Red Cell Distribution Width 18.3 H Platelet Count 582 #H Mean Platelet Volume 10.2 Neutrophils % 87.0 H Lymphocytes % 4.1 L Monocytes % 3.4 Eosinophils % 4.4 Basophils % 0.3 Nucleated Red Blood Cells % 0.0 Neutrophils # (Manual) 21.7 H Lymphocytes # 1.0 Monocytes # 0.9 Eosinophils # 1.1 H Basophils # 0.1 Nucleated Red Blood Cells # 0.0 Test 08/13/17 17:39 08/13/17 20:45 Bedside Glucose 184 120 Medications Medications Current Medications Acetaminophen (Tylenol Tab) 650 mg Q4H PRN GTB MILD PAIN LEVEL 1-3 Last administered on 08/13/17 13:23; Admin Dose 650 MG; Start 08/10/17 at 16:00 Eye Lubricant (Akwa Oint) 1 applic HS BOTH EYES Last administered on 08/13/17 20:43; Admin Dose 1 APPLIC; Start 08/10/17 at 21:00 Ascorbic Acid (Vitamin C) 500 mg TID GTB Last administered on 08/13/17 20:41; Admin Dose 500 MG; Start 08/10/17 at 21:00 Atorvastatin Calcium (Lipitor) 40 mg QHS GTB Last administered on 08/13/17 20: 40; Admin Dose 40 MG; Start 08/10/17 at 21:00 Bisacodyl (Dulcolax Supp) 10 mg DAILY PRN [place] PRN; Start 08/10/17 at 16:00 Docusate Sodium (Colace Liquid Cup) 200 mg QHS GTB Last administered on 20:40; Admin Dose 200 MG; Start 08/10/17 at 21:00 Furosemide (Lasix) 20 mg DAILY GTB Last administered on 08/13/17 08:10; Admin Dose 20 MG; Start 08/11/17 at 09:00 Levetiracetam (Keppra Liquid) 500 mg BID GTB Last administered on 08/13/17 20: 40; Admin Dose 500 MG; Start 08/10/17 at 21:00 Magnesium Hydroxide (Milk Of Mag) 30 ml QHS GTB Last administered on 08/13/17 20:40; Admin Dose 30 ML; Start 08/10/17 at 21:00 Magnesium Oxide (Mag-Ox 400) 400 mg TID GTB Last administered on 08/13/17 20: 41; Admin Dose 400 MG; Start 08/10/17 at 21:00 Metoclopramide HCl (Reglan Liq) 10 mg Q6H PRN GTB NAUSEA AND/OR VOMITING; Start 08/10/17 at 16:00 Ondansetron HCl (Zofran Tab) 4 mg Q6H PRN GTB NAUSEA AND/OR VOMITING; Start 08/10/17 at 16:00 Sodium Biphosphate/ Sodium Phosphate (Fleet Enema) 133 ml Q24H PRN [place] CONSTIPATION; Start 08/10/17 at 17:00 Tramadol HCl (Ultram) 50 mg BID GTB Last administered on 08/13/17 20:48; Admin Dose 50 MG; Start 08/10/17 at 21:00 Ferrous Sulfate (Feosol Liquid Cup) 300 mg BID GTB Last administered on 20:40; Admin Dose 300 MG; Start 08/10/17 at 21:00 Multivitamins Therapeutic (Theragran) 1 tab DAILY GTB Last administered on 08/13 08:10; Admin Dose 1 TAB; Start 08/11/17 at 09:00 Lansoprazole (Prevacid) 30 mg DAILY@06 GTB Last administered on 08/13/17 05:28 ; Admin Dose 30 MG; Start 08/11/17 at 06:00 Diltiazem HCl (Cardizem) 60 mg Q8 GTB Last administered on 08/13/17 20:41; Admin Dose 60 MG; Start 08/10/17 at 22:00 Miscellaneous Information 1 ea NOTE XX ; Start 08/10/17 at 16:30 Glucose (Glutose) 15 gm Q15M PRN PO DECREASED GLUCOSE; Start 08/10/17 at 16:30 Glucose (Glutose) 22.5 gm Q15M PRN PO DECREASED GLUCOSE; Start 08/10/17 at 16:30 Dextrose (D50w Syringe) 25 ml Q15M PRN IV DECREASED GLUCOSE Last administered on 08/12/17 17:48; Admin Dose 25 ML; Start 08/10/17 at 16:30 Dextrose (D50w Syringe) 50 ml Q15M PRN IV DECREASED GLUCOSE Last administered on 08/12/17 21:56; Admin Dose 50 ML; Start 08/10/17 at 16:30 Glucagon (Glucagen) 1 mg Q15M PRN IM DECREASED GLUCOSE; Start 08/10/17 at 16:30 Glucose (Glutose) 15 gm Q15M PRN BUCCAL DECREASED GLUCOSE; Start 08/10/17 at 16: 30 Latanoprost (Xalatan) 1 drop HS BOTH EYES Last administered on 08/13/17 20:42 ; Admin Dose 1 DROP; Start 08/10/17 at 21:00 Diagnostic Test (Pha) (Accu-Chek) 1 ea 02 XX Last administered on 08/12/17 02: 02; Admin Dose 1 EA; Start 08/12/17 at 02:00 Diagnostic Test (Pha) (Accu-Chek) 1 ea 02 XX Last administered on 08/12/17 02: 02; Admin Dose 1 EA; Start 08/12/17 at 02:00 Insulin Aspart (Adult SC Insulin - Mild Algorithm)... Q4 SC Last administered on 08/13/17 17:50; Admin Dose 2 UNIT; Start 08/11/17 at 10:13 Sodium Chloride (1/2 NS) 1,000 ml @ 75 mls/hr [id number] IV Last administered on 08/13/17 03:47; Admin Dose 75 MLS/HR; Start 08/11/17 at 13:30 Metoprolol Tartrate (Lopressor) 25 mg BID GTB Last administered on 08/13/17 20 :49; Admin Dose 25 MG; Start 08/11/17 at 21:00 Insulin Glargine (Lantus) 40 unit AM SC Last administered on 08/13/17 08:27; Admin Dose 40 UNIT; Start 08/12/17 at 09:00 Sodium Hypochlorite (Dakin'S (1/4 Strength)) 1 applic BID IRR Last administered on 08/13/17 20:43; Admin Dose 1 APPLIC; Start 08/11/17 at 21:00 Insulin Aspart 4 unit 4 unit Q6 SC Last administered on 08/13/17 17:51; Admin Dose 4 UNIT; Start 08/11/17 at 18:00 Vancomycin HCl 100 ml @ 100 mls/hr Q12H IVPB Last administered on 08/13/17 13 :19; Admin Dose 100 MLS/HR; Start 08/12/17 at 13:00 Ceftriaxone Sodium 50 ml @ 100 mls/hr Q24H IVPB Last administered on 13:29; Admin Dose 100 MLS/HR; Start 08/12/17 at 13:30 Metronidazole (Flagyl 500 Mg (Pmx)) 100 ml @ 100 mls/hr Q8 IVPB Last administered on 08/13/17 20:40; Admin Dose 100 MLS/HR; Start 08/12/17 at 14:00 Enoxaparin Sodium (Lovenox) 40 mg DAILY SC Last administered on 08/13/17 08:32 ; Admin Dose 40 MG; Start 08/12/17 at 15:00 Miscellaneous Information (*Rx Drug Level Order Reminder*) VANCO TROUGH @ 1, 200 ON... ONCE ONCE XX ; Start 08/14/17 at 12:00; Stop 08/14/17 at 12:01 NANCY CAMPBELL M.D. Aug 13, 2017 23:27
[2017-08-14] VITALS (13 sets, daily range): BP systolic 111–133; BP diastolic 54–62; PULSE 87–106; RESP 17–20
[2017-08-14] MEDS: SOD CHLORIDE 0.45% 1,000 ML IV SCH ×3 (00:36→21:00)
[2017-08-14] MEDS: VANCOMYCIN 500MG/NS (PMX) 100 ML IVPB SCH ×2 (00:37→13:30)
[2017-08-14] MEDS: INSULIN ASPART [NOVOLOG] 3 ML PEN SC SCH ×10 (00:39→21:00)
[2017-08-14] MEDS: ACCU-CHEK XX SCH ×2 (01:28→01:29)
[2017-08-14] MEDS: LANSOPRAZOLE 30 MG CAP GTB SCH (05:45)
[2017-08-14] MEDS: DILTIAZEM 60 MG TAB GTB SCH ×3 (05:45→21:00)
[2017-08-14] MEDS: metroNIDAZOLE 500 MG/NS (PMX) 100 ML IVPB SCH ×3 (05:45→20:57)
[2017-08-14 07:37] LABS: BASOPHIL # 0.1 10^3/ul (0.0-0.1); BASOPHILS % 0.5 % (0.0-2.0); EOSINOPHILS # 1.2 10^3/ul (0.0-0.5); EOSINOPHILS % 7.9 % (0.0-7.0); HEMATOCRIT 26.3 % (37.0-47.0); HEMOGLOBIN 8.1 g/dl (12.0-16.0); LYMPHOCYTES # 1.3 10^3/ul (0.8-2.9); LYMPHOCYTES % 8.6 % (15.0-51.0); MEAN CORPUSCULAR HEMOGLOBIN 26.8 pg (29.0-33.0); MEAN CORPUSCULAR HGB CONC 30.8 g/dl (32.0-37.0); MEAN CORPUSCULAR VOLUME 87.1 fl (82.0-101.0); MEAN PLATELET VOLUME 10.1 fl (7.4-10.4); MONOCYTE # 0.9 10^3/ul (0.3-0.9); MONOCYTES % 5.8 % (0.0-11.0); NEUTROPHILS % 76.3 % (39.0-77.0); PLATELET COUNT 554 10^3/UL (140-415); RED BLOOD COUNT 3.02 10^6/ul (4.20-5.40); RED CELL DISTRIBUTION WIDTH 17.2 % (11.5-14.5); WHITE BLOOD COUNT 14.9 10^3/ul (4.8-10.8)
[2017-08-14 07:57] LABS: CALCIUM 8.1 mg/dl (8.4-10.2); CREATININE 0.51 mg/dl (0.44-1.00); POTASSIUM 3.6 mmol/L (3.5-5.1)
[2017-08-14] MEDS: SODIUM HYPOCHLORITE 0.125% 473 ML BTL IRR SCH ×2 (08:52→21:00)
[2017-08-14] MEDS: LEVETIRACETAM (100 MG/ML) 5ML CUP GTB SCH ×2 (09:20→20:57)
[2017-08-14] MEDS: FERROUS SULFATE 60 MG/ML 5ML CUP GTB SCH ×2 (09:20→20:58)
[2017-08-14] MEDS: MULTIVITAMINS THERAPEUTIC TAB GTB SCH (09:21)
[2017-08-14] MEDS: FUROSEMIDE 20 MG TAB GTB SCH (09:21)
[2017-08-14] MEDS: ASCORBIC ACID 500 MG TAB GTB SCH ×3 (09:21→20:58)
[2017-08-14] MEDS: METOPROLOL 25 MG TAB GTB SCH ×2 (09:21→20:59)
[2017-08-14] MEDS: MAGNESIUM OXIDE 400 MG TAB GTB SCH ×3 (09:21→20:58)
[2017-08-14] MEDS: traMADol 50 MG TAB GTB SCH ×2 (09:22→20:58)
[2017-08-14] MEDS: INSULIN GLARGINE [LANtus] 3 ML PEN SC SCH (09:24)
[2017-08-14] MEDS: ENOXAPARIN 40 MG/0.4 ML SYG SC SCH (09:25)
[2017-08-14] MEDS: CEFTRIAXONE 1 GM/NS 50 ML IVPB SCH (12:57)
--- NOTE | 2017-08-14 16:18 | PN ---
Date/Time of Note Date/Time of Note DATE: 08/14/17 TIME: 16:15 Assessment/Plan VTE Prophylaxis VTE Prophylaxis Intervention: LMWH, other Lines/Catheters IV Catheter Type (from Nrs): Peripheral IV Urinary Cath still in place: No Assessment/Plan Assessment/Plan -Sepsis secondary to UTI - Per ID consult --Infected decubitus ulcer- VRE positive - per SX Consult - plan for bed side debridement - UTI - Cont antibiotics - Persistent Hyperglycemia - Endocrinology consult- Dr Matthews notified - cont to monitor -Thrombocytosis - per Hematology consult- Dr Valdovinos - Anemia -Dysphagia- sp G tube placement - aspiration precautions - Epilepsy - seizure precautions - encephalopathy - CVA - CAD - Hypertension - Hx DVT - dementia - bipolar - schizophrenia - SCDs for DVT Prophylaxis.Will wait for Lovenox- Anticipating surgical intervention. Plan of care dw Dr Salvador/staff Subjective 24 Hr Interval Summary Respiratory: no complaints Cardiovascular: no complaints Gastrointestinal: no complaints Genitourinary: no complaints Exam/Review of Systems Vital Signs Vitals Vital Signs Date Time Temp Pulse Resp B/P Pulse Ox O2 Delivery O2 Flow Rate FiO2 08/14/17 15:33 98.0 99 20 121/58 97 08/14/17 15:22 3.0 08/14/17 12:32 Nasal Cannula Intake and Output 08/13/17 08/13/17 08/14/17 15:00 23:00 07:00 Intake Total 2020 ml 1960 ml Output Total 800 ml 500 ml Balance 1220 ml 1460 ml Exam Constitutional: alert Respiratory: clear to auscultation, normal air movement Cardiovascular: nl pulses, regular rate and rhythm Gastrointestinal: non-tender, soft Neurological: confused Skin: other (sacral wound) Results Result Diagram: 08/14/17 0700 08/14/17 0700 Results 24 hrs Laboratory Tests Test 08/13/17 17:39 08/13/17 20:45 08/14/17 00:35 08/14/17 05:40 Bedside Glucose 184 120 166 178 Test 08/14/17 07:00 08/14/17 09:19 08/14/17 12:02 08/14/17 12:59 White Blood Count 14.9 #H Red Blood Count 3.02 L Hemoglobin 8.1 L Hematocrit 26.3 L Mean Corpuscular Volume 87.1 Mean Corpuscular Hemoglobin 26.8 L Mean Corpuscular Hemoglobin Concent 30.8 L Red Cell Distribution Width 17.2 H Platelet Count 554 H Mean Platelet Volume 10.1 Neutrophils % 76.3 Lymphocytes % 8.6 L Monocytes % 5.8 Eosinophils % 7.9 H Basophils % 0.5 Nucleated Red Blood Cells % 0.0 Neutrophils # (Manual) 11.4 H Lymphocytes # 1.3 Monocytes # 0.9 Eosinophils # 1.2 H Basophils # 0.1 Nucleated Red Blood Cells # 0.0 Sodium Level 131 L Potassium Level 3.6 Chloride Level 95 L Carbon Dioxide Level 32 H Anion Gap 8 Blood Urea Nitrogen 22 H Creatinine 0.51 Glucose Level 186 # Calcium Level 8.1 L Bedside Glucose 211 260 H Vancomycin Level Trough 8.2 L Medications Medications Current Medications Acetaminophen (Tylenol Tab) 650 mg Q4H PRN GTB MILD PAIN LEVEL 1-3 Last administered on 08/13/17 13:23; Admin Dose 650 MG; Start 08/10/17 at 16:00 Eye Lubricant (Akwa Oint) 1 applic HS BOTH EYES Last administered on 08/13/17 20:43; Admin Dose 1 APPLIC; Start 08/10/17 at 21:00 Ascorbic Acid (Vitamin C) 500 mg TID GTB Last administered on 08/14/17 12:56; Admin Dose 500 MG; Start 08/10/17 at 21:00 Atorvastatin Calcium (Lipitor) 40 mg QHS GTB Last administered on 08/13/17 20: 40; Admin Dose 40 MG; Start 08/10/17 at 21:00 Bisacodyl (Dulcolax Supp) 10 mg DAILY PRN [place] PRN; Start 08/10/17 at 16:00 Docusate Sodium (Colace Liquid Cup) 200 mg QHS GTB Last administered on 20:40; Admin Dose 200 MG; Start 08/10/17 at 21:00 Furosemide (Lasix) 20 mg DAILY GTB Last administered on 08/14/17 09:21; Admin Dose 20 MG; Start 08/11/17 at 09:00 Levetiracetam (Keppra Liquid) 500 mg BID GTB Last administered on 08/14/17 09: 20; Admin Dose 500 MG; Start 08/10/17 at 21:00 Magnesium Hydroxide (Milk Of Mag) 30 ml QHS GTB Last administered on 08/13/17 20:40; Admin Dose 30 ML; Start 08/10/17 at 21:00 Magnesium Oxide (Mag-Ox 400) 400 mg TID GTB Last administered on 08/14/17 12: 56; Admin Dose 400 MG; Start 08/10/17 at 21:00 Metoclopramide HCl (Reglan Liq) 10 mg Q6H PRN GTB NAUSEA AND/OR VOMITING; Start 08/10/17 at 16:00 Ondansetron HCl (Zofran Tab) 4 mg Q6H PRN GTB NAUSEA AND/OR VOMITING; Start 08/10/17 at 16:00 Sodium Biphosphate/ Sodium Phosphate (Fleet Enema) 133 ml Q24H PRN [place] CONSTIPATION; Start 08/10/17 at 17:00 Tramadol HCl (Ultram) 50 mg BID GTB Last administered on 08/14/17 09:22; Admin Dose 50 MG; Start 08/10/17 at 21:00 Ferrous Sulfate (Feosol Liquid Cup) 300 mg BID GTB Last administered on 09:20; Admin Dose 300 MG; Start 08/10/17 at 21:00 Multivitamins Therapeutic (Theragran) 1 tab DAILY GTB Last administered on 08/14 09:21; Admin Dose 1 TAB; Start 08/11/17 at 09:00 Lansoprazole (Prevacid) 30 mg DAILY@06 GTB Last administered on 08/14/17 05:45 ; Admin Dose 30 MG; Start 08/11/17 at 06:00 Diltiazem HCl (Cardizem) 60 mg Q8 GTB Last administered on 08/14/17 13:50; Admin Dose 60 MG; Start 08/10/17 at 22:00 Miscellaneous Information 1 ea NOTE XX ; Start 08/10/17 at 16:30 Glucose (Glutose) 15 gm Q15M PRN PO DECREASED GLUCOSE; Start 08/10/17 at 16:30 Glucose (Glutose) 22.5 gm Q15M PRN PO DECREASED GLUCOSE; Start 08/10/17 at 16:30 Dextrose (D50w Syringe) 25 ml Q15M PRN IV DECREASED GLUCOSE Last administered on 08/12/17 17:48; Admin Dose 25 ML; Start 08/10/17 at 16:30 Dextrose (D50w Syringe) 50 ml Q15M PRN IV DECREASED GLUCOSE Last administered on 08/12/17 21:56; Admin Dose 50 ML; Start 08/10/17 at 16:30 Glucagon (Glucagen) 1 mg Q15M PRN IM DECREASED GLUCOSE; Start 08/10/17 at 16:30 Glucose (Glutose) 15 gm Q15M PRN BUCCAL DECREASED GLUCOSE; Start 08/10/17 at 16: 30 Latanoprost (Xalatan) 1 drop HS BOTH EYES Last administered on 08/13/17 20:42 ; Admin Dose 1 DROP; Start 08/10/17 at 21:00 Diagnostic Test (Pha) (Accu-Chek) 1 ea 02 XX Last administered on 08/12/17 02: 02; Admin Dose 1 EA; Start 08/12/17 at 02:00 Diagnostic Test (Pha) (Accu-Chek) 1 ea 02 XX Last administered on 08/12/17 02: 02; Admin Dose 1 EA; Start 08/12/17 at 02:00 Insulin Aspart (Adult SC Insulin - Mild Algorithm)... Q4 SC Last administered on 08/14/17 13:02; Admin Dose 3 UNIT; Start 08/11/17 at 10:13 Sodium Chloride (1/2 NS) 1,000 ml @ 75 mls/hr [id number] IV Last administered on 08/14/17 09:22; Admin Dose 75 MLS/HR; Start 08/11/17 at 13:30 Metoprolol Tartrate (Lopressor) 25 mg BID GTB Last administered on 08/14/17 09 :21; Admin Dose 25 MG; Start 08/11/17 at 21:00 Insulin Glargine (Lantus) 40 unit AM SC Last administered on 08/14/17 09:24; Admin Dose 40 UNIT; Start 08/12/17 at 09:00 Sodium Hypochlorite (Dakin'S (1/4 Strength)) 1 applic BID IRR Last administered on 08/13/17 20:43; Admin Dose 1 APPLIC; Start 08/11/17 at 21:00 Insulin Aspart 4 unit 4 unit Q6 SC Last administered on 08/14/17 13:01; Admin Dose 4 UNIT; Start 08/11/17 at 18:00 Vancomycin HCl 100 ml @ 100 mls/hr Q12H IVPB Last administered on 08/14/17 13 :30; Admin Dose 100 MLS/HR; Start 08/12/17 at 13:00; Stop 08/14/17 at 19:00 Ceftriaxone Sodium 50 ml @ 100 mls/hr Q24H IVPB Last administered on 12:57; Admin Dose 100 MLS/HR; Start 08/12/17 at 13:30 Metronidazole (Flagyl 500 Mg (Pmx)) 100 ml @ 100 mls/hr Q8 IVPB Last administered on 08/14/17 14:04; Admin Dose 100 MLS/HR; Start 08/12/17 at 14:00 Enoxaparin Sodium 40 mg 40 mg DAILY SC Last administered on 08/14/17 09:25; Admin Dose 40 MG; Start 08/12/17 at 15:00 Vancomycin HCl/ Sodium Chloride (Vancocin/NS) 150 ml @ 75 mls/hr Q12H IVPB ; Start 08/14/17 at 23:00 MICHAEL COLINDRES Aug 14, 2017 16:18
[2017-08-14] MEDS: DAPTOMYCIN IVPB SCH (16:30)
[2017-08-14] MEDS: SOD CHLORIDE 0.9% IVPB SCH (16:30)
--- NOTE | 2017-08-14 19:16 | CONS ---
Date/Time of Note Date/Time of Note DATE: 08/14/17 TIME: 19:12 Assessment/Plan Assessment/Plan Problems: (1) Iron deficiency anemia Status: Chronic Comment: Patient was on oral iron therapy. Will defer off to the primary care teams. I believe the anemia also is being driven by the chronic inflammation i.e. infection Qualifiers: Iron deficiency anemia type: unspecified iron deficiency Qualified Code: D50.9 - Iron deficiency anemia, unspecified iron deficiency anemia type (2) Diabetes mellitus, type 2 Status: Chronic Comment: Sugar control is variable on the tube feeds. Altered adjustment of the basal insulin will continue along with the guide toward making further adjustments Qualifiers: Diabetes mellitus complication status: with hyperglycemia Diabetes mellitus penitentiary insulin use: without penitentiary use Qualified Code: E11.65 - Type 2 diabetes mellitus with hyperglycemia, without long-term current use of insulin (3) UTI (urinary tract infection) Status: Acute Comment: Cultures positive for Proteus antibiotic management as per ID Qualifiers: Urinary tract infection type: acute cystitis Hematuria presence: without hematuria Qualified Code: N30.00 - Acute cystitis without hematuria (4) Infected decubitus ulcer Status: Acute Comment: Antibiotic management as per ID Qualifiers: Pressure ulcer stage: unspecified pressure ulcer stage Qualified Code: L89.90 - Infected decubitus ulcer, unspecified ulcer stage Consultation Date/Type/Reason Admit Date/Time Aug 10, 2017 at 14:12 Initial Consult Date 08/11/17 Type of Consultation: Endocrinology Reason for Consultation Diabetes mellitus type II Referring Provider: LUZMA HYMAN MD 24 HR Interval Summary Free Text/Dictation Patient's marginally responsive to questions by choice Exam/Review of Systems Vital Signs Vitals Vital Signs Date Time Temp Pulse Resp B/P Pulse Ox O2 Delivery O2 Flow Rate FiO2 08/14/17 16:23 101 08/14/17 16:22 Nasal Cannula 4.0 08/14/17 15:33 98.0 20 121/58 97 Intake and Output 08/13/17 08/13/17 08/14/17 15:00 23:00 07:00 Intake Total 2020 ml 1960 ml Output Total 800 ml 500 ml Balance 1220 ml 1460 ml Exam No changes in exam Constitutional: alert, non-verbal Results Result Diagram: 08/14/17 0700 08/14/17 0700 Results 24 hrs Laboratory Tests Test 08/13/17 20:45 08/14/17 00:35 08/14/17 05:40 08/14/17 07:00 Bedside Glucose 120 166 178 White Blood Count 14.9 #H Red Blood Count 3.02 L Hemoglobin 8.1 L Hematocrit 26.3 L Mean Corpuscular Volume 87.1 Mean Corpuscular Hemoglobin 26.8 L Mean Corpuscular Hemoglobin Concent 30.8 L Red Cell Distribution Width 17.2 H Platelet Count 554 H Mean Platelet Volume 10.1 Neutrophils % 76.3 Lymphocytes % 8.6 L Monocytes % 5.8 Eosinophils % 7.9 H Basophils % 0.5 Nucleated Red Blood Cells % 0.0 Neutrophils # (Manual) 11.4 H Lymphocytes # 1.3 Monocytes # 0.9 Eosinophils # 1.2 H Basophils # 0.1 Nucleated Red Blood Cells # 0.0 Sodium Level 131 L Potassium Level 3.6 Chloride Level 95 L Carbon Dioxide Level 32 H Anion Gap 8 Blood Urea Nitrogen 22 H Creatinine 0.51 Glucose Level 186 # Calcium Level 8.1 L Test 08/14/17 09:19 08/14/17 12:02 08/14/17 12:59 08/14/17 16:43 Bedside Glucose 211 260 H 161 Vancomycin Level Trough 8.2 L Medications Medications Current Medications Acetaminophen (Tylenol Tab) 650 mg Q4H PRN GTB MILD PAIN LEVEL 1-3 Last administered on 08/13/17 13:23; Admin Dose 650 MG; Start 08/10/17 at 16:00 Eye Lubricant (Akwa Oint) 1 applic HS BOTH EYES Last administered on 08/13/17 20:43; Admin Dose 1 APPLIC; Start 08/10/17 at 21:00 Ascorbic Acid (Vitamin C) 500 mg TID GTB Last administered on 08/14/17 12:56; Admin Dose 500 MG; Start 08/10/17 at 21:00 Atorvastatin Calcium (Lipitor) 40 mg QHS GTB Last administered on 08/13/17 20: 40; Admin Dose 40 MG; Start 08/10/17 at 21:00 Bisacodyl (Dulcolax Supp) 10 mg DAILY PRN [place] PRN; Start 08/10/17 at 16:00 Docusate Sodium (Colace Liquid Cup) 200 mg QHS GTB Last administered on 20:40; Admin Dose 200 MG; Start 08/10/17 at 21:00 Furosemide (Lasix) 20 mg DAILY GTB Last administered on 08/14/17 09:21; Admin Dose 20 MG; Start 08/11/17 at 09:00 Levetiracetam (Keppra Liquid) 500 mg BID GTB Last administered on 08/14/17 09: 20; Admin Dose 500 MG; Start 08/10/17 at 21:00 Magnesium Hydroxide (Milk Of Mag) 30 ml QHS GTB Last administered on 08/13/17 20:40; Admin Dose 30 ML; Start 08/10/17 at 21:00 Magnesium Oxide (Mag-Ox 400) 400 mg TID GTB Last administered on 08/14/17 12: 56; Admin Dose 400 MG; Start 08/10/17 at 21:00 Metoclopramide HCl (Reglan Liq) 10 mg Q6H PRN GTB NAUSEA AND/OR VOMITING; Start 08/10/17 at 16:00 Ondansetron HCl (Zofran Tab) 4 mg Q6H PRN GTB NAUSEA AND/OR VOMITING; Start 08/10/17 at 16:00 Sodium Biphosphate/ Sodium Phosphate (Fleet Enema) 133 ml Q24H PRN [place] CONSTIPATION; Start 08/10/17 at 17:00 Tramadol HCl (Ultram) 50 mg BID GTB Last administered on 08/14/17 09:22; Admin Dose 50 MG; Start 08/10/17 at 21:00 Ferrous Sulfate (Feosol Liquid Cup) 300 mg BID GTB Last administered on 09:20; Admin Dose 300 MG; Start 08/10/17 at 21:00 Multivitamins Therapeutic (Theragran) 1 tab DAILY GTB Last administered on 08/14 09:21; Admin Dose 1 TAB; Start 08/11/17 at 09:00 Lansoprazole (Prevacid) 30 mg DAILY@06 GTB Last administered on 08/14/17 05:45 ; Admin Dose 30 MG; Start 08/11/17 at 06:00 Diltiazem HCl (Cardizem) 60 mg Q8 GTB Last administered on 08/14/17 13:50; Admin Dose 60 MG; Start 08/10/17 at 22:00 Miscellaneous Information 1 ea NOTE XX ; Start 08/10/17 at 16:30 Glucose (Glutose) 15 gm Q15M PRN PO DECREASED GLUCOSE; Start 08/10/17 at 16:30 Glucose (Glutose) 22.5 gm Q15M PRN PO DECREASED GLUCOSE; Start 08/10/17 at 16:30 Dextrose (D50w Syringe) 25 ml Q15M PRN IV DECREASED GLUCOSE Last administered on 08/12/17 17:48; Admin Dose 25 ML; Start 08/10/17 at 16:30 Dextrose (D50w Syringe) 50 ml Q15M PRN IV DECREASED GLUCOSE Last administered on 08/12/17 21:56; Admin Dose 50 ML; Start 08/10/17 at 16:30 Glucagon (Glucagen) 1 mg Q15M PRN IM DECREASED GLUCOSE; Start 08/10/17 at 16:30 Glucose (Glutose) 15 gm Q15M PRN BUCCAL DECREASED GLUCOSE; Start 08/10/17 at 16: 30 Latanoprost (Xalatan) 1 drop HS BOTH EYES Last administered on 08/13/17 20:42 ; Admin Dose 1 DROP; Start 08/10/17 at 21:00 Diagnostic Test (Pha) (Accu-Chek) 1 ea 02 XX Last administered on 08/12/17 02: 02; Admin Dose 1 EA; Start 08/12/17 at 02:00 Insulin Aspart (Adult SC Insulin - Mild Algorithm)... Q4 SC Last administered on 08/14/17 16:51; Admin Dose 1 UNIT; Start 08/11/17 at 10:13 Sodium Chloride (1/2 NS) 1,000 ml @ 75 mls/hr [id number] IV Last administered on 08/14/17 09:22; Admin Dose 75 MLS/HR; Start 08/11/17 at 13:30 Metoprolol Tartrate (Lopressor) 25 mg BID GTB Last administered on 08/14/17 09 :21; Admin Dose 25 MG; Start 08/11/17 at 21:00 Insulin Glargine (Lantus) 40 unit AM SC Last administered on 08/14/17 09:24; Admin Dose 40 UNIT; Start 08/12/17 at 09:00 Sodium Hypochlorite 1 applic 1 applic BID IRR Last administered on 08/13/17 20 :43; Admin Dose 1 APPLIC; Start 08/11/17 at 21:00 Ceftriaxone Sodium 50 ml @ 100 mls/hr Q24H IVPB Last administered on 12:57; Admin Dose 100 MLS/HR; Start 08/12/17 at 13:30 Metronidazole (Flagyl 500 Mg (Pmx)) 100 ml @ 100 mls/hr Q8 IVPB Last administered on 08/14/17 14:04; Admin Dose 100 MLS/HR; Start 08/12/17 at 14:00 Enoxaparin Sodium 40 mg 40 mg DAILY SC Last administered on 08/14/17 09:25; Admin Dose 40 MG; Start 08/12/17 at 15:00 Daptomycin/Sodium Chloride (Cubicin/NS) 100 ml @ 200 mls/hr Q24H IVPB Last administered on 08/14/17 16:30; Admin Dose 200 MLS/HR; Start 08/14/17 at 16:30 Insulin Aspart (Novolog Insulin Pen) 8 unit Q6 SC Last administered on 16:51; Admin Dose 8 UNIT; Start 08/14/17 at 18:00 JAEK RAO MD Aug 14, 2017 19:16
[2017-08-14] MEDS: DOCUSATE SODIUM 10 MG/ML (10ML CUP) GTB SCH (20:11)
[2017-08-14] MEDS: MAGNESIUM HYDROXIDE 30ML CUP GTB SCH (20:12)
[2017-08-14] MEDS: DEXTROSE 50% 50 ML SYRINGE IV PRN (20:53)
[2017-08-14] MEDS: OCULAR LUBRICANT 3.5 GM OPH OINT BOTH EYES SCH (20:57)
[2017-08-14] MEDS: LATANOPROST 0.005% 2.5 ML OPH BOTH EYES SCH (20:57)
[2017-08-14] MEDS: ATORVASTATIN 40 MG TAB GTB SCH (20:58)
[2017-08-14] MEDS: ACETAMINOPHEN 325 MG TAB GTB PRN (20:59)
--- NOTE | 2017-08-14 22:21 | PN ---
Date/Time of Note Date/Time of Note DATE: 08/14/17 TIME: 22:12 Assessment/Plan Lines/Catheters IV Catheter Type (from [facility]): Peripheral IV Shields in Place (from [facility]): No Assessment/Plan Chief Complaint/Hosp Course 1. Sacral wound stage IV with osteomyelitis: s/p debridement todsy -debridement prn -local care with dakin's -iv abx per sensitivities -frequent turning and offloading -low airloss mattress -nutrition optimization -vitamin c/short term zinc 2. Vomiting with abdominal distention and ?sbo: KUB without evidence of obstruction; +bowel function: vomiting likely 2/2 rate of medication administration per nursing; imaging noted -slow medication administration per gtube: use gravity -monitor 3. UTI: cultures noted -cath care -abx per sensitivities 4. Bacteremia -abx per sensitivities 5. Sepsis with Leukocytosis: likely 2/2 above -as above 6. Hypochromic anemia: no acute bleed noted -monitor and transfuse as needed -workup per medical team 7. Thrombocytosis: 2/2 infection vs. other; improving -monitor and workup if persistent 8. DM/ Hyperglycemia: with episodes of hypoglycemia -blood sugar optimization 9. Elevated alk phos: 2/2 osteo vs. gi source (doubt): abd us noted -monitor 10. HTN: -medical optimization 11. Dysphagia with feeding per feeding tube -cont tf with aspiration precautions 12. Hx. of bipolar disorder/schizophrenia -medical./psych management 13. History of epilepsy -sz precautions 14. Loose stools stool studies 15. hyponatremia- judicious fluids+/- fluid restriction Thank you. Patient seen and examined in collaboration with Dr. Eric Tineo. Problems: Subjective 24 Hr Interval Summary status post sacral debridement today. No complaints of abdominal pain or nausea or vomiting. Tolerating tube feeds. Loose stools. No fevers chills, chest pain, palpitations, shortness of breath, dysuria, seizures or new wounds. no excessive drainage from wounds. Exam/Review of Systems Vital Signs Vitals Vital Signs Date Time Temp Pulse Resp B/P Pulse Ox O2 Delivery O2 Flow Rate FiO2 08/14/17 20:37 106 08/14/17 20:00 100.1 18 132/61 95 08/14/17 20:00 Nasal Cannula 4.0 Intake and Output 08/13/17 08/13/17 08/14/17 15:00 23:00 07:00 Intake Total 2020 ml 1960 ml Output Total 800 ml 500 ml Balance 1220 ml 1460 ml Exam Free Text/Dictation Constitutional: alert, oriented (to self), other (answers simple questions), warm Psych: nl mood/affect Head: atraumatic, normocephalic Eyes: nl lids, nl sclera ENMT: mucosa pink and moist Neck: non-tender, supple Respiratory: normal air movement Cardiovascular: other (ST), regular rate and rhythm Gastrointestinal: bowel sounds, distended (MIN), non-tender, other (GTUBE), soft, diarrhea Genitourinary - Female: nl external genitalia Musculoskeletal: other (stiffness) Extremities: normal pulses, No edema Neurological: nl speech, No nl mental status (slow to respond), No nl strength Skin: other (multple wounds, sacral ulcer packed with improved periwound erythema, min drainage) ble leg wounds Results Result Diagram: 08/14/17 0700 08/14/17 0700 SOREN LISA NP Aug 14, 2017 22:21
[2017-08-14] MEDS ORDERED: VANCOMYCIN 650 MG in SOD CHLORIDE 0.9% 150 ML IVPB SCH (23:00)
--- NOTE | 2017-08-14 23:06 | OPR ---
Date/Time of Note Date/Time of Note DATE: 08/14/17 TIME: 23:06 Operative Report Procedure Date: Aug 14, 2017 Preoperative Diagnosis Sacral stage 4 pressure ulcer with necrotic tissue, 4x4cm Postoperative Diagnosis Sacral stage 4 pressure ulcer with necrotic tissue including bone, 4x4cm Operation Performed Excisional debridement of sacral skin, subcutaneous, fascia, and bone. 4x4cm Surgeon: SOREN LISA NP Estimated Blood Loss: minimal Transfusion Required: no Specimen: none Grafts/Implants: none Complications: no Pt Condition Post Procedure: stable Indications per notes Procedure Description R/B/A were fully reviewed and agreed upon Patient was positioned appropriately. Time out was done. All pressure points padded on her bed. Using scalpel and curette, the necrotic tissue of skin, subq , fascia, and boneof the sacrum were debrided to healthier edges. Wound was irrigated and hemostasis obtained. Wounds were packed and dry dressing was placed to cover. SOREN LISA NP Aug 14, 2017 23:06
[2017-08-15] VITALS (11 sets, daily range): BP systolic 115–128; BP diastolic 56–82; PULSE 81–93; RESP 18
[2017-08-15] MEDS: INSULIN ASPART [NOVOLOG] 3 ML PEN SC SCH ×10 (00:46→21:00)
[2017-08-15] MEDS: ACCU-CHEK XX SCH (02:07)
[2017-08-15] MEDS: LANSOPRAZOLE 30 MG CAP GTB SCH (05:46)
[2017-08-15] MEDS: metroNIDAZOLE 500 MG/NS (PMX) 100 ML IVPB SCH ×3 (05:46→21:53)
[2017-08-15] MEDS: DILTIAZEM 60 MG TAB GTB SCH ×3 (05:46→21:53)
[2017-08-15 07:26] LABS: BASOPHIL # 0.1 10^3/ul (0.0-0.1); BASOPHILS % 0.5 % (0.0-2.0); EOSINOPHILS # 0.9 10^3/ul (0.0-0.5); EOSINOPHILS % 8.1 % (0.0-7.0); HEMATOCRIT 29.2 % (37.0-47.0); HEMOGLOBIN 8.8 g/dl (12.0-16.0); LYMPHOCYTES # 1.2 10^3/ul (0.8-2.9); LYMPHOCYTES % 11.3 % (15.0-51.0); MEAN CORPUSCULAR HEMOGLOBIN 26.4 pg (29.0-33.0); MEAN CORPUSCULAR HGB CONC 30.1 g/dl (32.0-37.0); MEAN CORPUSCULAR VOLUME 87.7 fl (82.0-101.0); MEAN PLATELET VOLUME 10.3 fl (7.4-10.4); MONOCYTE # 0.9 10^3/ul (0.3-0.9); MONOCYTES % 7.9 % (0.0-11.0); NEUTROPHIL # 7.9 10^3/ul (1.6-7.5); NEUTROPHILS % 71.4 % (39.0-77.0); PLATELET COUNT 594 10^3/UL (140-415); RED BLOOD COUNT 3.33 10^6/ul (4.20-5.40); RED CELL DISTRIBUTION WIDTH 17.2 % (11.5-14.5)
[2017-08-15 07:48] LABS: CALCIUM 8.7 mg/dl (8.4-10.2); CREATININE 0.52 mg/dl (0.44-1.00); POTASSIUM 3.6 mmol/L (3.5-5.1)
[2017-08-15] MEDS: INSULIN GLARGINE [LANtus] 3 ML PEN SC SCH (09:19)
[2017-08-15] MEDS: MAGNESIUM OXIDE 400 MG TAB GTB SCH ×3 (10:29→21:52)
[2017-08-15] MEDS: LEVETIRACETAM (100 MG/ML) 5ML CUP GTB SCH ×2 (10:29→22:08)
[2017-08-15] MEDS: ASCORBIC ACID 500 MG TAB GTB SCH ×3 (10:29→21:52)
[2017-08-15] MEDS: MULTIVITAMINS THERAPEUTIC TAB GTB SCH (10:29)
[2017-08-15] MEDS: FUROSEMIDE 20 MG TAB GTB SCH (10:29)
[2017-08-15] MEDS: SODIUM HYPOCHLORITE 0.125% 473 ML BTL IRR SCH ×2 (10:30→21:56)
[2017-08-15] MEDS: METOPROLOL 25 MG TAB GTB SCH ×2 (10:30→21:53)
[2017-08-15] MEDS: ENOXAPARIN 40 MG/0.4 ML SYG SC SCH (10:33)
[2017-08-15] MEDS: FERROUS SULFATE 60 MG/ML 5ML CUP GTB SCH ×2 (10:48→21:52)
[2017-08-15] MEDS: SOD CHLORIDE 0.45% 1,000 ML IV SCH (10:48)
[2017-08-15] MEDS: traMADol 50 MG TAB GTB SCH ×2 (10:48→21:52)
--- NOTE | 2017-08-15 12:54 | PN ---
Date/Time of Note Date/Time of Note DATE: 08/15/17 TIME: 12:48 Assessment/Plan Lines/Catheters IV Catheter Type (from [facility]): Peripheral IV Shields in Place (from [facility]): No Assessment/Plan Chief Complaint/Hosp Course 1. Sacral wound stage IV with osteomyelitis: s/p debridement 08/14, cultures noted -debridement prn -local care with dakin's -iv abx per sensitivities -frequent turning and offloading -low airloss mattress -nutrition optimization -vitamin c/short term zinc 2. Vomiting with abdominal distention and ?sbo: KUB without evidence of obstruction; +bowel function: vomiting likely 2/2 rate of medication administration per nursing; imaging noted: no vomiting currently, tolerating tf -slow medication administration per gtube: use gravity -monitor 3. UTI: cultures noted -cath care -abx per sensitivities 4.Hypochromic anemia: no acute bleed noted -monitor and transfuse as needed -workup per medical team 5. Sepsis with Leukocytosis: likely 2/2 above: improving -as above 6. Thrombocytosis: 2/2 infection vs. other; improving -monitor and workup if persistent 7. Dysphagia with feeding per feeding tube -cont tf with aspiration precautions 8. DM/ Hyperglycemia: with episodes of hypoglycemia -blood sugar optimization 9. Elevated alk phos: 2/2 osteo vs. gi source (doubt): abd us noted -monitor 10. HTN: -medical optimization 11. hyponatremia- judicious fluids+/- fluid restriction 12. Hx. of bipolar disorder/schizophrenia -medical./psych management 13. History of epilepsy -sz precautions 14. Loose stools stool studies Thank you. Patient seen and examined in collaboration with Dr. Eric Tnieo. Problems: Subjective 24 Hr Interval Summary S/p debridement yesterday. WBC improved. Tachycardia improved. No fevers, chills , myalgias overnight. No sob, congested cough, cp, palpitations, tele rhythm changes, new wounds, excessive wound drainage. Tolerating tf with +bowel function. Exam/Review of Systems Vital Signs Vitals Vital Signs Date Time Temp Pulse Resp B/P Pulse Ox O2 Delivery O2 Flow Rate FiO2 08/15/17 11:45 98.0 88 18 128/82 99 08/15/17 05:36 3.0 08/14/17 20:00 Nasal Cannula Intake and Output 08/14/17 08/14/17 08/15/17 15:00 23:00 07:00 Intake Total 1400 ml 1420 ml Output Total 750 ml 500 ml Balance 650 ml 920 ml Exam Free Text/Dictation Constitutional: alert, oriented (to self), other (answers simple questions) Psych: nl mood/affect Head: atraumatic, normocephalic Eyes: nl lids, nl sclera ENMT: mucosa pink and moist Neck: non-tender, supple Respiratory: normal air movement Cardiovascular: regular rate and rhythm SR Gastrointestinal: bowel sounds, distended (MIN), non-tender, other (GTUBE), soft Genitourinary - Female: nl external genitalia Musculoskeletal: other (stiffness) Extremities: normal pulses, No edema Neurological: nl speech, No nl mental status (slow to respond), No nl strength Skin: other (multple wounds, sacral ulcer packed with improved periwound erythema, min drainage) ble leg wounds Results Result Diagram: 08/15/17 0540 08/15/17 0540 SOREN LISA NP Aug 15, 2017 12:54
--- NOTE | 2017-08-15 13:15 | CONS ---
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, MSSA, and VRE ; s/p debridement 08/14/2017 - Bacteremia due to CoNS - C diff colitis - Thrombocytosis - G-tube dependent - T2DM with BS uncontrolled - Hgb A1c 7.5% - H/o CVA - H/o tonic-clonic seizures - CAD - HTN - HLD - Dementia - Bipolar/schizophrenia - DVT - thalassemia - severe constipation - improved - 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 Pitt Problems: Consultation Date/Type/Reason Admit Date/Time Aug 10, 2017 at 14:12 Initial Consult Date 08/11/17 Type of Consultation: Infectious Disease Referring Provider: LUZMA HYMAN MD 24 HR Interval Summary Free Text/Dictation s/p sacral wound debridement yesterday Had one episode of semi-loose stool today per d/w nursing staff. Denies pain, SOB, n/v. ROS limited d/t baseline dementia. Exam/Review of Systems Vital Signs Vitals Vital Signs Date Time Temp Pulse Resp B/P Pulse Ox O2 Delivery O2 Flow Rate FiO2 08/15/17 11:45 98.0 88 18 128/82 99 08/15/17 05:36 3.0 08/14/17 20:00 Nasal Cannula Intake and Output 08/14/17 08/14/17 08/15/17 15:00 23:00 07:00 Intake Total 1400 ml 1420 ml Output Total 750 ml 500 ml Balance 650 ml 920 ml Exam Constitutional: alert, well developed Head: atraumatic, normocephalic Eyes: nl conjunctiva, nl lids Neck: supple Respiratory: clear to auscultation, normal air movement Cardiovascular: nl pulses, regular rate and rhythm Gastrointestinal: non-tender, other (G-tube intact), soft Musculoskeletal: other (contracted; limited ROM; bilateral foot drop noted) Extremities: normal pulses, No edema Neurological: nl speech, confused Skin: nl turgor, other (sacral decub- see nurse note and photos for details) Results Result Diagram: 08/15/17 0540 08/15/17 0540 Results 24 hrs Laboratory Tests Test 08/14/17 12:59 08/14/17 16:43 08/14/17 20:46 08/14/17 21:14 Bedside Glucose 260 H 161 66 L 119 Test 08/14/17 21:49 08/14/17 23:42 08/15/17 05:40 08/15/17 05:43 Bedside Glucose 96 110 108 White Blood Count 11.0 #H Red Blood Count 3.33 L Hemoglobin 8.8 L Hematocrit 29.2 L Mean Corpuscular Volume 87.7 Mean Corpuscular Hemoglobin 26.4 L Mean Corpuscular Hemoglobin Concent 30.1 L Red Cell Distribution Width 17.2 H Platelet Count 594 H Mean Platelet Volume 10.3 Neutrophils % 71.4 Lymphocytes % 11.3 L Monocytes % 7.9 Eosinophils % 8.1 H Basophils % 0.5 Nucleated Red Blood Cells % 0.0 Neutrophils # 7.9 H Lymphocytes # 1.2 Monocytes # 0.9 Eosinophils # 0.9 H Basophils # 0.1 Nucleated Red Blood Cells # 0.0 Sodium Level 135 Potassium Level 3.6 Chloride Level 97 Carbon Dioxide Level 34 H Anion Gap 8 Blood Urea Nitrogen 19 Creatinine 0.52 Glucose Level 97 # Calcium Level 8.7 Test 08/15/17 09:02 08/15/17 12:24 Bedside Glucose 110 161 Medications Medications Current Medications Acetaminophen (Tylenol Tab) 650 mg Q4H PRN GTB MILD PAIN LEVEL 1-3 Last administered on 08/14/17 20:59; Admin Dose 650 MG; Start 08/10/17 at 16:00 Eye Lubricant (Akwa Oint) 1 applic HS BOTH EYES Last administered on 08/14/17 20:57; Admin Dose 1 APPLIC; Start 08/10/17 at 21:00 Ascorbic Acid (Vitamin C) 500 mg TID GTB Last administered on 08/15/17 10:29; Admin Dose 500 MG; Start 08/10/17 at 21:00 Atorvastatin Calcium (Lipitor) 40 mg QHS GTB Last administered on 08/14/17 20: 58; Admin Dose 40 MG; Start 08/10/17 at 21:00 Bisacodyl (Dulcolax Supp) 10 mg DAILY PRN DE PRN; Start 08/10/17 at 16:00 Docusate Sodium (Colace Liquid Cup) 200 mg QHS GTB Last administered on 20:40; Admin Dose 200 MG; Start 08/10/17 at 21:00 Furosemide (Lasix) 20 mg DAILY GTB Last administered on 08/15/17 10:29; Admin Dose 20 MG; Start 08/11/17 at 09:00 Levetiracetam (Keppra Liquid) 500 mg BID GTB Last administered on 08/15/17 10: 29; Admin Dose 500 MG; Start 08/10/17 at 21:00 Magnesium Hydroxide (Milk Of Mag) 30 ml QHS GTB Last administered on 08/13/17 20:40; Admin Dose 30 ML; Start 08/10/17 at 21:00 Magnesium Oxide (Mag-Ox 400) 400 mg TID GTB Last administered on 08/15/17 10: 29; Admin Dose 400 MG; Start 08/10/17 at 21:00 Metoclopramide HCl (Reglan Liq) 10 mg Q6H PRN GTB NAUSEA AND/OR VOMITING; Start 08/10/17 at 16:00 Ondansetron HCl (Zofran Tab) 4 mg Q6H PRN GTB NAUSEA AND/OR VOMITING; Start 08/10/17 at 16:00 Sodium Biphosphate/ Sodium Phosphate (Fleet Enema) 133 ml Q24H PRN DE CONSTIPATION; Start 08/10/17 at 17:00 Tramadol HCl (Ultram) 50 mg BID GTB Last administered on 08/15/17 10:48; Admin Dose 50 MG; Start 08/10/17 at 21:00 Ferrous Sulfate (Feosol Liquid Cup) 300 mg BID GTB Last administered on 10:48; Admin Dose 300 MG; Start 08/10/17 at 21:00 Multivitamins Therapeutic (Theragran) 1 tab DAILY GTB Last administered on 08/15 10:29; Admin Dose 1 TAB; Start 08/11/17 at 09:00 Lansoprazole (Prevacid) 30 mg DAILY@06 GTB Last administered on 08/15/17 05:46 ; Admin Dose 30 MG; Start 08/11/17 at 06:00 Diltiazem HCl (Cardizem) 60 mg Q8 GTB Last administered on 08/15/17 05:46; Admin Dose 60 MG; Start 08/10/17 at 22:00 Miscellaneous Information 1 ea NOTE XX ; Start 08/10/17 at 16:30 Glucose (Glutose) 15 gm Q15M PRN PO DECREASED GLUCOSE; Start 08/10/17 at 16:30 Glucose (Glutose) 22.5 gm Q15M PRN PO DECREASED GLUCOSE; Start 08/10/17 at 16:30 Dextrose (D50w Syringe) 25 ml Q15M PRN IV DECREASED GLUCOSE Last administered on 08/14/17 20:53; Admin Dose 25 ML; Start 08/10/17 at 16:30 Dextrose (D50w Syringe) 50 ml Q15M PRN IV DECREASED GLUCOSE Last administered on 08/12/17 21:56; Admin Dose 50 ML; Start 08/10/17 at 16:30 Glucagon (Glucagen) 1 mg Q15M PRN IM DECREASED GLUCOSE; Start 08/10/17 at 16:30 Glucose (Glutose) 15 gm Q15M PRN BUCCAL DECREASED GLUCOSE; Start 08/10/17 at 16: 30 Latanoprost (Xalatan) 1 drop HS BOTH EYES Last administered on 08/14/17 20:57 ; Admin Dose 1 DROP; Start 08/10/17 at 21:00 Diagnostic Test (Pha) (Accu-Chek) 1 ea 02 XX Last administered on 08/15/17 02: 07; Admin Dose 1 EA; Start 08/12/17 at 02:00 Insulin Aspart (Adult SC Insulin - Mild Algorithm)... Q4 SC Last administered on 08/15/17 12:31; Admin Dose 1 UNIT; Start 08/11/17 at 10:13 Sodium Chloride (1/2 NS) 1,000 ml @ 75 mls/hr [id number] IV Last administered on 08/15/17 10:48; Admin Dose 75 MLS/HR; Start 08/11/17 at 13:30 Metoprolol Tartrate (Lopressor) 25 mg BID GTB Last administered on 08/15/17 10 :30; Admin Dose 25 MG; Start 08/11/17 at 21:00 Sodium Hypochlorite 1 applic 1 applic BID IRR Last administered on 08/15/17 10 :30; Admin Dose 1 APPLIC; Start 08/11/17 at 21:00 Ceftriaxone Sodium 50 ml @ 100 mls/hr Q24H IVPB Last administered on 12:57; Admin Dose 100 MLS/HR; Start 08/12/17 at 13:30 Metronidazole (Flagyl 500 Mg (Pmx)) 100 ml @ 100 mls/hr Q8 IVPB Last administered on 08/15/17 05:46; Admin Dose 100 MLS/HR; Start 08/12/17 at 14:00 Enoxaparin Sodium 40 mg 40 mg DAILY SC Last administered on 08/15/17 10:33; Admin Dose 40 MG; Start 08/12/17 at 15:00 Daptomycin/Sodium Chloride (Cubicin/NS) 100 ml @ 200 mls/hr Q24H IVPB Last administered on 08/14/17 16:30; Admin Dose 200 MLS/HR; Start 08/14/17 at 16:30 Insulin Aspart (Novolog Insulin Pen) 8 unit Q6 SC Last administered on 12:30; Admin Dose 8 UNIT; Start 08/14/17 at 18:00 Insulin Glargine (Lantus) 42 unit AM SC Last administered on 08/15/17 09:19; Admin Dose 42 UNIT; Start 08/15/17 at 09:00 PHILIP CLARKE NP Aug 15, 2017 13:07
[2017-08-15] MEDS: CEFTRIAXONE 1 GM/NS 50 ML IVPB SCH (13:27)
--- NOTE | 2017-08-15 14:56 | PN ---
Date/Time of Note Date/Time of Note DATE: 08/15/17 TIME: 14:55 Assessment/Plan Lines/Catheters IV Catheter Type (from [facility]rs[facility]): Peripheral IV Urinary Cath still in place: No Assessment/Plan Assessment/Plan -Sepsis secondary to UTI - Per ID consult --Infected decubitus ulcer- VRE positive - per SX Consult - plan for bed side debridement - UTI - Cont antibiotics - Persistent Hyperglycemia - Endocrinology consult- Dr Matthews notified - cont to monitor -Thrombocytosis - per Hematology consult- Dr Valdovinos - Anemia -Dysphagia- sp G tube placement - aspiration precautions - Epilepsy - seizure precautions - encephalopathy - CVA - CAD - Hypertension - Hx DVT - dementia - bipolar - schizophrenia - SCDs for DVT Prophylaxis.Will wait for Lovenox- Anticipating surgical intervention. Plan of care dw Dr Salvador/staff Subjective 24 Hr Interval Summary ENT: pain Respiratory: pain Cardiovascular: no complaints Gastrointestinal: no complaints Genitourinary: no complaints Musculoskeletal: no complaints Exam/Review of Systems Vital Signs Vitals Vital Signs Date Time Temp Pulse Resp B/P Pulse Ox O2 Delivery O2 Flow Rate FiO2 08/15/17 12:00 83 08/15/17 11:45 98.0 18 128/82 99 08/15/17 05:36 3.0 08/14/17 20:00 Nasal Cannula Intake and Output 08/14/17 08/14/17 08/15/17 15:00 23:00 07:00 Intake Total 1400 ml 1420 ml Output Total 750 ml 500 ml Balance 650 ml 920 ml Exam Constitutional: alert, well developed Respiratory: clear to auscultation, normal air movement Cardiovascular: nl pulses, regular rate and rhythm Gastrointestinal: non-tender, soft Musculoskeletal: nl extremities to inspection Extremities: normal pulses Neurological: confused, nl speech Results Result Diagram: 08/15/17 0540 08/15/17 0540 Results 24 hrs Laboratory Tests Test 08/14/17 16:43 08/14/17 20:46 08/14/17 21:14 08/14/17 21:49 Bedside Glucose 161 66 L 119 96 Test 08/14/17 23:42 08/15/17 05:40 08/15/17 05:43 08/15/17 09:02 Bedside Glucose 110 108 110 White Blood Count 11.0 #H Red Blood Count 3.33 L Hemoglobin 8.8 L Hematocrit 29.2 L Mean Corpuscular Volume 87.7 Mean Corpuscular Hemoglobin 26.4 L Mean Corpuscular Hemoglobin Concent 30.1 L Red Cell Distribution Width 17.2 H Platelet Count 594 H Mean Platelet Volume 10.3 Neutrophils % 71.4 Lymphocytes % 11.3 L Monocytes % 7.9 Eosinophils % 8.1 H Basophils % 0.5 Nucleated Red Blood Cells % 0.0 Neutrophils # 7.9 H Lymphocytes # 1.2 Monocytes # 0.9 Eosinophils # 0.9 H Basophils # 0.1 Nucleated Red Blood Cells # 0.0 Sodium Level 135 Potassium Level 3.6 Chloride Level 97 Carbon Dioxide Level 34 H Anion Gap 8 Blood Urea Nitrogen 19 Creatinine 0.52 Glucose Level 97 # Calcium Level 8.7 Test 08/15/17 12:24 Bedside Glucose 161 Medications Medications Current Medications Acetaminophen (Tylenol Tab) 650 mg Q4H PRN GTB MILD PAIN LEVEL 1-3 Last administered on 08/14/17 20:59; Admin Dose 650 MG; Start 08/10/17 at 16:00 Eye Lubricant (Akwa Oint) 1 applic HS BOTH EYES Last administered on 08/14/17 20:57; Admin Dose 1 APPLIC; Start 08/10/17 at 21:00 Ascorbic Acid (Vitamin C) 500 mg TID GTB Last administered on 08/15/17 13:18; Admin Dose 500 MG; Start 08/10/17 at 21:00 Atorvastatin Calcium (Lipitor) 40 mg QHS GTB Last administered on 08/14/17 20: 58; Admin Dose 40 MG; Start 08/10/17 at 21:00 Bisacodyl (Dulcolax Supp) 10 mg DAILY PRN CO PRN; Start 08/10/17 at 16:00 Docusate Sodium (Colace Liquid Cup) 200 mg QHS GTB Last administered on 20:40; Admin Dose 200 MG; Start 08/10/17 at 21:00 Furosemide (Lasix) 20 mg DAILY GTB Last administered on 08/15/17 10:29; Admin Dose 20 MG; Start 08/11/17 at 09:00 Levetiracetam (Keppra Liquid) 500 mg BID GTB Last administered on 08/15/17 10: 29; Admin Dose 500 MG; Start 08/10/17 at 21:00 Magnesium Hydroxide (Milk Of Mag) 30 ml QHS GTB Last administered on 08/13/17 20:40; Admin Dose 30 ML; Start 08/10/17 at 21:00 Magnesium Oxide (Mag-Ox 400) 400 mg TID GTB Last administered on 08/15/17 13: 18; Admin Dose 400 MG; Start 08/10/17 at 21:00 Metoclopramide HCl (Reglan Liq) 10 mg Q6H PRN GTB NAUSEA AND/OR VOMITING; Start 08/10/17 at 16:00 Ondansetron HCl (Zofran Tab) 4 mg Q6H PRN GTB NAUSEA AND/OR VOMITING; Start 08/10/17 at 16:00 Sodium Biphosphate/ Sodium Phosphate (Fleet Enema) 133 ml Q24H PRN CO CONSTIPATION; Start 08/10/17 at 17:00 Tramadol HCl (Ultram) 50 mg BID GTB Last administered on 08/15/17 10:48; Admin Dose 50 MG; Start 08/10/17 at 21:00 Ferrous Sulfate (Feosol Liquid Cup) 300 mg BID GTB Last administered on 10:48; Admin Dose 300 MG; Start 08/10/17 at 21:00 Multivitamins Therapeutic (Theragran) 1 tab DAILY GTB Last administered on 08/15 10:29; Admin Dose 1 TAB; Start 08/11/17 at 09:00 Lansoprazole (Prevacid) 30 mg DAILY@06 GTB Last administered on 08/15/17 05:46 ; Admin Dose 30 MG; Start 08/11/17 at 06:00 Diltiazem HCl (Cardizem) 60 mg Q8 GTB Last administered on 08/15/17 13:19; Admin Dose 60 MG; Start 08/10/17 at 22:00 Miscellaneous Information 1 ea NOTE XX ; Start 08/10/17 at 16:30 Glucose (Glutose) 15 gm Q15M PRN PO DECREASED GLUCOSE; Start 08/10/17 at 16:30 Glucose (Glutose) 22.5 gm Q15M PRN PO DECREASED GLUCOSE; Start 08/10/17 at 16:30 Dextrose (D50w Syringe) 25 ml Q15M PRN IV DECREASED GLUCOSE Last administered on 08/14/17 20:53; Admin Dose 25 ML; Start 08/10/17 at 16:30 Dextrose (D50w Syringe) 50 ml Q15M PRN IV DECREASED GLUCOSE Last administered on 08/12/17 21:56; Admin Dose 50 ML; Start 08/10/17 at 16:30 Glucagon (Glucagen) 1 mg Q15M PRN IM DECREASED GLUCOSE; Start 08/10/17 at 16:30 Glucose (Glutose) 15 gm Q15M PRN BUCCAL DECREASED GLUCOSE; Start 08/10/17 at 16: 30 Latanoprost (Xalatan) 1 drop HS BOTH EYES Last administered on 08/14/17 20:57 ; Admin Dose 1 DROP; Start 08/10/17 at 21:00 Diagnostic Test (Pha) (Accu-Chek) 1 ea 02 XX Last administered on 08/15/17 02: 07; Admin Dose 1 EA; Start 08/12/17 at 02:00 Insulin Aspart (Adult SC Insulin - Mild Algorithm)... Q4 SC Last administered on 08/15/17 12:31; Admin Dose 1 UNIT; Start 08/11/17 at 10:13 Sodium Chloride (1/2 NS) 1,000 ml @ 75 mls/hr [id number] IV Last administered on 08/15/17 10:48; Admin Dose 75 MLS/HR; Start 08/11/17 at 13:30 Metoprolol Tartrate (Lopressor) 25 mg BID GTB Last administered on 08/15/17 10 :30; Admin Dose 25 MG; Start 08/11/17 at 21:00 Sodium Hypochlorite 1 applic 1 applic BID IRR Last administered on 08/15/17 10 :30; Admin Dose 1 APPLIC; Start 08/11/17 at 21:00 Ceftriaxone Sodium 50 ml @ 100 mls/hr Q24H IVPB Last administered on 13:27; Admin Dose 100 MLS/HR; Start 08/12/17 at 13:30 Metronidazole (Flagyl 500 Mg (Pmx)) 100 ml @ 100 mls/hr Q8 IVPB Last administered on 08/15/17 13:17; Admin Dose 100 MLS/HR; Start 08/12/17 at 14:00 Enoxaparin Sodium 40 mg 40 mg DAILY SC Last administered on 08/15/17 10:33; Admin Dose 40 MG; Start 08/12/17 at 15:00 Daptomycin/Sodium Chloride (Cubicin/NS) 100 ml @ 200 mls/hr Q24H IVPB Last administered on 08/14/17 16:30; Admin Dose 200 MLS/HR; Start 08/14/17 at 16:30 Insulin Aspart (Novolog Insulin Pen) 8 unit Q6 SC Last administered on 12:30; Admin Dose 8 UNIT; Start 08/14/17 at 18:00 Insulin Glargine (Lantus) 42 unit AM SC Last administered on 08/15/17 09:19; Admin Dose 42 UNIT; Start 08/15/17 at 09:00 MICHAEL COLINDRES Aug 15, 2017 14:55
[2017-08-15] MEDS: DAPTOMYCIN IVPB SCH (18:32)
[2017-08-15] MEDS: SOD CHLORIDE 0.9% IVPB SCH (18:32)
--- NOTE | 2017-08-15 19:00 | CONS ---
Date/Time of Note Date/Time of Note DATE: 08/15/17 TIME: 18:59 Assessment/Plan Assessment/Plan Problems: (1) Diabetes mellitus, type 2 Status: Chronic Comment: Sugars have come under control nicely in the controlled environment with controlled access to calories and medications. 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 Qualified Code: E11.65 - Type 2 diabetes mellitus with hyperglycemia, without long-term current use of insulin Consultation Date/Type/Reason Admit Date/Time Aug 10, 2017 at 14:12 Initial Consult Date 08/11/17 Type of Consultation: Endocrinology Reason for Consultation Diabetes mellitus type 2; multiple infections Referring Provider: LUZMA HYMAN MD 24 HR Interval Summary Free Text/Dictation Patient without changes Exam/Review of Systems Vital Signs Vitals Vital Signs Date Time Temp Pulse Resp B/P Pulse Ox O2 Delivery O2 Flow Rate FiO2 08/15/17 16:16 92 08/15/17 15:55 98.0 18 126/60 98 08/15/17 08:20 Nasal Cannula 4.0 Intake and Output 08/14/17 08/14/17 08/15/17 15:00 23:00 07:00 Intake Total 1400 ml 1420 ml Output Total 750 ml 500 ml Balance 650 ml 920 ml Results No changes in examination Result Diagram: 08/15/17 0540 08/15/17 0540 Results 24 hrs Laboratory Tests Test 08/14/17 20:46 08/14/17 21:14 08/14/17 21:49 08/14/17 23:42 Bedside Glucose 66 L 119 96 110 Test 08/15/17 05:40 08/15/17 05:43 08/15/17 09:02 08/15/17 12:24 White Blood Count 11.0 #H Red Blood Count 3.33 L Hemoglobin 8.8 L Hematocrit 29.2 L Mean Corpuscular Volume 87.7 Mean Corpuscular Hemoglobin 26.4 L Mean Corpuscular Hemoglobin Concent 30.1 L Red Cell Distribution Width 17.2 H Platelet Count 594 H Mean Platelet Volume 10.3 Neutrophils % 71.4 Lymphocytes % 11.3 L Monocytes % 7.9 Eosinophils % 8.1 H Basophils % 0.5 Nucleated Red Blood Cells % 0.0 Neutrophils # 7.9 H Lymphocytes # 1.2 Monocytes # 0.9 Eosinophils # 0.9 H Basophils # 0.1 Nucleated Red Blood Cells # 0.0 Sodium Level 135 Potassium Level 3.6 Chloride Level 97 Carbon Dioxide Level 34 H Anion Gap 8 Blood Urea Nitrogen 19 Creatinine 0.52 Glucose Level 97 # Calcium Level 8.7 Bedside Glucose 108 110 161 Test 08/15/17 18:24 Bedside Glucose 149 Medications Medications Current Medications Acetaminophen (Tylenol Tab) 650 mg Q4H PRN GTB MILD PAIN LEVEL 1-3 Last administered on 08/14/17 20:59; Admin Dose 650 MG; Start 08/10/17 at 16:00 Eye Lubricant (Akwa Oint) 1 applic HS BOTH EYES Last administered on 08/14/17 20:57; Admin Dose 1 APPLIC; Start 08/10/17 at 21:00 Ascorbic Acid (Vitamin C) 500 mg TID GTB Last administered on 08/15/17 13:18; Admin Dose 500 MG; Start 08/10/17 at 21:00 Atorvastatin Calcium (Lipitor) 40 mg QHS GTB Last administered on 08/14/17 20: 58; Admin Dose 40 MG; Start 08/10/17 at 21:00 Bisacodyl (Dulcolax Supp) 10 mg DAILY PRN OK PRN; Start 08/10/17 at 16:00 Docusate Sodium (Colace Liquid Cup) 200 mg QHS GTB Last administered on 20:40; Admin Dose 200 MG; Start 08/10/17 at 21:00 Furosemide (Lasix) 20 mg DAILY GTB Last administered on 08/15/17 10:29; Admin Dose 20 MG; Start 08/11/17 at 09:00 Levetiracetam (Keppra Liquid) 500 mg BID GTB Last administered on 08/15/17 10: 29; Admin Dose 500 MG; Start 08/10/17 at 21:00 Magnesium Hydroxide (Milk Of Mag) 30 ml QHS GTB Last administered on 08/13/17 20:40; Admin Dose 30 ML; Start 08/10/17 at 21:00 Magnesium Oxide (Mag-Ox 400) 400 mg TID GTB Last administered on 08/15/17 13: 18; Admin Dose 400 MG; Start 08/10/17 at 21:00 Metoclopramide HCl (Reglan Liq) 10 mg Q6H PRN GTB NAUSEA AND/OR VOMITING; Start 08/10/17 at 16:00 Ondansetron HCl (Zofran Tab) 4 mg Q6H PRN GTB NAUSEA AND/OR VOMITING; Start 08/10/17 at 16:00 Sodium Biphosphate/ Sodium Phosphate (Fleet Enema) 133 ml Q24H PRN OK CONSTIPATION; Start 08/10/17 at 17:00 Tramadol HCl (Ultram) 50 mg BID GTB Last administered on 08/15/17 10:48; Admin Dose 50 MG; Start 08/10/17 at 21:00 Ferrous Sulfate (Feosol Liquid Cup) 300 mg BID GTB Last administered on 10:48; Admin Dose 300 MG; Start 08/10/17 at 21:00 Multivitamins Therapeutic (Theragran) 1 tab DAILY GTB Last administered on 08/15 10:29; Admin Dose 1 TAB; Start 08/11/17 at 09:00 Lansoprazole (Prevacid) 30 mg DAILY@06 GTB Last administered on 08/15/17 05:46 ; Admin Dose 30 MG; Start 08/11/17 at 06:00 Diltiazem HCl (Cardizem) 60 mg Q8 GTB Last administered on 08/15/17 13:19; Admin Dose 60 MG; Start 08/10/17 at 22:00 Miscellaneous Information 1 ea NOTE XX ; Start 08/10/17 at 16:30 Glucose (Glutose) 15 gm Q15M PRN PO DECREASED GLUCOSE; Start 08/10/17 at 16:30 Glucose (Glutose) 22.5 gm Q15M PRN PO DECREASED GLUCOSE; Start 08/10/17 at 16:30 Dextrose (D50w Syringe) 25 ml Q15M PRN IV DECREASED GLUCOSE Last administered on 08/14/17 20:53; Admin Dose 25 ML; Start 08/10/17 at 16:30 Dextrose (D50w Syringe) 50 ml Q15M PRN IV DECREASED GLUCOSE Last administered on 08/12/17 21:56; Admin Dose 50 ML; Start 08/10/17 at 16:30 Glucagon (Glucagen) 1 mg Q15M PRN IM DECREASED GLUCOSE; Start 08/10/17 at 16:30 Glucose (Glutose) 15 gm Q15M PRN BUCCAL DECREASED GLUCOSE; Start 08/10/17 at 16: 30 Latanoprost (Xalatan) 1 drop HS BOTH EYES Last administered on 08/14/17 20:57 ; Admin Dose 1 DROP; Start 08/10/17 at 21:00 Diagnostic Test (Pha) (Accu-Chek) 1 ea 02 XX Last administered on 08/15/17 02: 07; Admin Dose 1 EA; Start 08/12/17 at 02:00 Insulin Aspart (Adult SC Insulin - Mild Algorithm)... Q4 SC Last administered on 08/15/17 18:29; Admin Dose 1 UNIT; Start 08/11/17 at 10:13 Sodium Chloride (1/2 NS) 1,000 ml @ 75 mls/hr [id number] IV Last administered on 08/15/17 10:48; Admin Dose 75 MLS/HR; Start 08/11/17 at 13:30 Metoprolol Tartrate (Lopressor) 25 mg BID GTB Last administered on 08/15/17 10 :30; Admin Dose 25 MG; Start 08/11/17 at 21:00 Sodium Hypochlorite 1 applic 1 applic BID IRR Last administered on 08/15/17 10 :30; Admin Dose 1 APPLIC; Start 08/11/17 at 21:00 Ceftriaxone Sodium 50 ml @ 100 mls/hr Q24H IVPB Last administered on 13:27; Admin Dose 100 MLS/HR; Start 08/12/17 at 13:30 Metronidazole (Flagyl 500 Mg (Pmx)) 100 ml @ 100 mls/hr Q8 IVPB Last administered on 08/15/17 13:17; Admin Dose 100 MLS/HR; Start 08/12/17 at 14:00 Enoxaparin Sodium 40 mg 40 mg DAILY SC Last administered on 08/15/17 10:33; Admin Dose 40 MG; Start 08/12/17 at 15:00 Daptomycin/Sodium Chloride (Cubicin/NS) 100 ml @ 200 mls/hr Q24H IVPB Last administered on 08/15/17 18:32; Admin Dose 200 MLS/HR; Start 08/14/17 at 16:30 Insulin Aspart (Novolog Insulin Pen) 8 unit Q6 SC Last administered on 18:30; Admin Dose 8 UNIT; Start 08/14/17 at 18:00 Insulin Glargine (Lantus) 42 unit AM SC Last administered on 08/15/17 09:19; Admin Dose 42 UNIT; Start 08/15/17 at 09:00 JAKE RAO MD Aug 15, 2017 19:00
[2017-08-15] MEDS: MAGNESIUM HYDROXIDE 30ML CUP GTB SCH (21:51)
[2017-08-15] MEDS: DOCUSATE SODIUM 10 MG/ML (10ML CUP) GTB SCH (21:52)
[2017-08-15] MEDS: ATORVASTATIN 40 MG TAB GTB SCH (21:52)
[2017-08-15] MEDS: LATANOPROST 0.005% 2.5 ML OPH BOTH EYES SCH (21:54)
[2017-08-15] MEDS: OCULAR LUBRICANT 3.5 GM OPH OINT BOTH EYES SCH (21:55)
[2017-08-16] VITALS (12 sets, daily range): BP systolic 107–133; BP diastolic 54–65; PULSE 78–95; RESP 17–18
[2017-08-16] MEDS: INSULIN ASPART [NOVOLOG] 3 ML PEN SC SCH ×10 (01:00→20:40)
[2017-08-16] MEDS: ACCU-CHEK XX SCH (01:30)
[2017-08-16] MEDS: SOD CHLORIDE 0.45% 1,000 ML IV SCH ×2 (01:30→13:30)
[2017-08-16] MEDS: metroNIDAZOLE 500 MG/NS (PMX) 100 ML IVPB SCH ×3 (06:03→20:39)
[2017-08-16] MEDS: LANSOPRAZOLE 30 MG CAP GTB SCH (06:04)
[2017-08-16] MEDS: DILTIAZEM 60 MG TAB GTB SCH ×3 (06:04→21:36)
[2017-08-16 07:52] LABS: BASOPHIL # 0.1 10^3/ul (0.0-0.1); BASOPHILS % 0.7 % (0.0-2.0); EOSINOPHILS # 0.7 10^3/ul (0.0-0.5); EOSINOPHILS % 8.1 % (0.0-7.0); HEMATOCRIT 29.1 % (37.0-47.0); HEMOGLOBIN 8.7 g/dl (12.0-16.0); LYMPHOCYTES # 1.9 10^3/ul (0.8-2.9); LYMPHOCYTES % 21.7 % (15.0-51.0); MEAN CORPUSCULAR HEMOGLOBIN 25.7 pg (29.0-33.0); MEAN CORPUSCULAR HGB CONC 29.9 g/dl (32.0-37.0); MEAN CORPUSCULAR VOLUME 86.1 fl (82.0-101.0); MEAN PLATELET VOLUME 10.3 fl (7.4-10.4); MONOCYTE # 0.8 10^3/ul (0.3-0.9); MONOCYTES % 8.5 % (0.0-11.0); NEUTROPHIL # 5.2 10^3/ul (1.6-7.5); NEUTROPHILS % 59.1 % (39.0-77.0); PLATELET COUNT 621 10^3/UL (140-415); RED BLOOD COUNT 3.38 10^6/ul (4.20-5.40); RED CELL DISTRIBUTION WIDTH 17.3 % (11.5-14.5); WHITE BLOOD COUNT 8.9 10^3/ul (4.8-10.8)
[2017-08-16] MEDS: LEVETIRACETAM (100 MG/ML) 5ML CUP GTB SCH ×2 (08:14→20:37)
[2017-08-16] MEDS: ASCORBIC ACID 500 MG TAB GTB SCH ×3 (08:14→20:37)
[2017-08-16] MEDS: FERROUS SULFATE 60 MG/ML 5ML CUP GTB SCH ×2 (08:14→20:37)
[2017-08-16] MEDS: MAGNESIUM OXIDE 400 MG TAB GTB SCH ×3 (08:15→20:37)
[2017-08-16] MEDS: FUROSEMIDE 20 MG TAB GTB SCH (08:15)
[2017-08-16] MEDS: MULTIVITAMINS THERAPEUTIC TAB GTB SCH (08:15)
[2017-08-16] MEDS: METOPROLOL 25 MG TAB GTB SCH ×2 (08:16→20:38)
[2017-08-16] MEDS: SODIUM HYPOCHLORITE 0.125% 473 ML BTL IRR SCH ×2 (08:17→20:39)
[2017-08-16 08:26] LABS: CALCIUM 8.5 mg/dl (8.4-10.2); CREATININE 0.43 mg/dl (0.44-1.00); POTASSIUM 4.4 mmol/L (3.5-5.1)
[2017-08-16] MEDS: INSULIN GLARGINE [LANtus] 3 ML PEN SC SCH (08:26)
[2017-08-16] MEDS: ENOXAPARIN 40 MG/0.4 ML SYG SC SCH (08:26)
[2017-08-16] MEDS: traMADol 50 MG TAB GTB SCH ×2 (08:29→20:50)
--- NOTE | 2017-08-16 12:27 | PN ---
Date/Time of Note Date/Time of Note DATE: 08/16/17 TIME: 12:25 Assessment/Plan Lines/Catheters IV Catheter Type (from [facility]): Peripheral IV Shields in Place (from [facility]): No Assessment/Plan Chief Complaint/Hosp Course 1. Sacral wound stage IV with osteomyelitis: s/p debridement 08/14, cultures noted -debridement prn -local care with dakin's -iv abx per sensitivities -frequent turning and offloading -low airloss mattress -nutrition optimization -vitamin c/short term zinc 2. Vomiting with abdominal distention and ?sbo: KUB without evidence of obstruction; +bowel function: vomiting likely 2/2 rate of medication administration per nursing; imaging noted: no vomiting currently, tolerating tf -slow medication administration per gtube: use gravity -monitor 3. UTI: cultures noted -cath care -abx per sensitivities 4.Hypochromic anemia: no acute bleed noted -monitor and transfuse as needed -workup per medical team 5. Sepsis with Leukocytosis: likely 2/2 above: improving -as above 6. Thrombocytosis: 2/2 infection vs. other; improving -monitor and workup if persistent 7. Dysphagia with feeding per feeding tube -cont tf with aspiration precautions 8. DM/ Hyperglycemia: with episodes of hypoglycemia -blood sugar optimization 9. Elevated alk phos: 2/2 osteo vs. gi source (doubt): abd us noted -monitor 10. HTN: -medical optimization 11. hyponatremia- judicious fluids+/- fluid restriction 12. Hx. of bipolar disorder/schizophrenia -medical./psych management 13. History of epilepsy -sz precautions 14. Loose stools stool studies Thank you, Problems: Subjective 24 Hr Interval Summary Debridement 08/14. WBC improved. Tachycardia improved. No fevers, chills, myalgias overnight. No sob, congested cough, cp, palpitations, tele rhythm changes, new wounds, excessive wound drainage. Tolerating tf +bowel function. Exam/Review of Systems Vital Signs Vitals Vital Signs Date Time Temp Pulse Resp B/P Pulse Ox O2 Delivery O2 Flow Rate FiO2 08/16/17 10:59 98.1 85 17 127/65 96 08/16/17 02:36 4.0 08/15/17 21:03 Nasal Cannula Intake and Output 08/15/17 08/15/17 08/16/17 14:59 22:59 06:59 Intake Total 1870 ml 1420 ml Output Total 2500 ml 1100 ml Balance -630 ml 320 ml Exam Free Text/Dictation Constitutional: alert, oriented (to self), other (answers simple questions) Psych: nl mood/affect Head: atraumatic, normocephalic Eyes: nl lids, nl sclera ENMT: mucosa pink and moist Neck: non-tender, supple Respiratory: normal air movement Cardiovascular: regular rate and rhythm SR Gastrointestinal: bowel sounds, distended (min), non-tender, gtube, soft Genitourinary - Female: nl external genitalia Musculoskeletal: other (stiffness) Extremities: normal pulses, No edema Neurological: nl speech, No nl mental status (slow to respond), No nl strength Skin: other (multiple wounds, sacral ulcer packed with improved periwound erythema, min drainage) ble leg wounds Results Result Diagram: 08/16/17 0636 08/16/17 0636 OSIRIS GODOY MD Aug 16, 2017 12:27
[2017-08-16] MEDS: CEFTRIAXONE 1 GM/NS 50 ML IVPB SCH (15:09)
--- NOTE | 2017-08-16 16:17 | CONS ---
Date/Time of Note Date/Time of Note DATE: 08/16/17 TIME: 16:16 Assessment/Plan Assessment/Plan Problems: (1) Diabetes mellitus, type 2 Status: Chronic Comment: Except for one single fingerstick blood sugars have generally been acceptable range. Continue current therapeutic regimen. 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 Qualified Code: E11.65 - Type 2 diabetes mellitus with hyperglycemia, without long-term current use of insulin Consultation Date/Type/Reason Admit Date/Time Aug 10, 2017 at 14:12 Initial Consult Date 08/11/17 Type of Consultation: Endocrinology Reason for Consultation Diabetes mellitus type 2 out of control; multiple sources of infection Referring Provider: LUZMA HYMAN MD 24 HR Interval Summary Free Text/Dictation No changes Exam/Review of Systems Vital Signs Vitals Vital Signs Date Time Temp Pulse Resp B/P Pulse Ox O2 Delivery O2 Flow Rate FiO2 08/16/17 15:25 98.1 93 17 133/63 99 08/16/17 12:00 Nasal Cannula 4.0 Intake and Output 08/15/17 08/15/17 08/16/17 15:00 23:00 07:00 Intake Total 1970 ml 1320 ml Output Total 2500 ml 1100 ml Balance -530 ml 220 ml Results No changes in examination Result Diagram: 08/16/17 0636 08/16/17 0636 Results 24 hrs Laboratory Tests Test 08/15/17 18:24 08/15/17 22:02 08/16/17 01:29 08/16/17 06:02 Bedside Glucose 149 131 134 180 Test 08/16/17 06:36 08/16/17 08:21 08/16/17 12:09 White Blood Count 8.9 Red Blood Count 3.38 L Hemoglobin 8.7 L Hematocrit 29.1 L Mean Corpuscular Volume 86.1 Mean Corpuscular Hemoglobin 25.7 L Mean Corpuscular Hemoglobin Concent 29.9 L Red Cell Distribution Width 17.3 H Platelet Count 621 H Mean Platelet Volume 10.3 Neutrophils % 59.1 Lymphocytes % 21.7 Monocytes % 8.5 Eosinophils % 8.1 H Basophils % 0.7 Nucleated Red Blood Cells % 0.0 Neutrophils # 5.2 Lymphocytes # 1.9 Monocytes # 0.8 Eosinophils # 0.7 H Basophils # 0.1 Nucleated Red Blood Cells # 0.0 Sodium Level 135 Potassium Level 4.4 Chloride Level 98 Carbon Dioxide Level 32 H Anion Gap 9 Blood Urea Nitrogen 17 Creatinine 0.43 L Glucose Level 169 Calcium Level 8.5 Creatine Kinase 41 Bedside Glucose 232 H 191 Medications Medications Current Medications Acetaminophen (Tylenol Tab) 650 mg Q4H PRN GTB MILD PAIN LEVEL 1-3 Last administered on 08/14/17 20:59; Admin Dose 650 MG; Start 08/10/17 at 16:00 Eye Lubricant (Akwa Oint) 1 applic HS BOTH EYES Last administered on 08/15/17 21:55; Admin Dose 1 APPLIC; Start 08/10/17 at 21:00 Ascorbic Acid (Vitamin C) 500 mg TID GTB Last administered on 08/16/17 12:18; Admin Dose 500 MG; Start 08/10/17 at 21:00 Atorvastatin Calcium (Lipitor) 40 mg QHS GTB Last administered on 08/15/17 21: 52; Admin Dose 40 MG; Start 08/10/17 at 21:00 Bisacodyl (Dulcolax Supp) 10 mg DAILY PRN SD PRN; Start 08/10/17 at 16:00 Docusate Sodium (Colace Liquid Cup) 200 mg QHS GTB Last administered on 21:52; Admin Dose 200 MG; Start 08/10/17 at 21:00 Furosemide (Lasix) 20 mg DAILY GTB Last administered on 08/16/17 08:15; Admin Dose 20 MG; Start 08/11/17 at 09:00 Levetiracetam (Keppra Liquid) 500 mg BID GTB Last administered on 08/16/17 08: 14; Admin Dose 500 MG; Start 08/10/17 at 21:00 Magnesium Hydroxide (Milk Of Mag) 30 ml QHS GTB Last administered on 08/15/17 21:51; Admin Dose 30 ML; Start 08/10/17 at 21:00 Magnesium Oxide (Mag-Ox 400) 400 mg TID GTB Last administered on 08/16/17 12: 18; Admin Dose 400 MG; Start 08/10/17 at 21:00 Metoclopramide HCl (Reglan Liq) 10 mg Q6H PRN GTB NAUSEA AND/OR VOMITING; Start 08/10/17 at 16:00 Ondansetron HCl (Zofran Tab) 4 mg Q6H PRN GTB NAUSEA AND/OR VOMITING; Start 08/10/17 at 16:00 Sodium Biphosphate/ Sodium Phosphate (Fleet Enema) 133 ml Q24H PRN SD CONSTIPATION; Start 08/10/17 at 17:00 Tramadol HCl (Ultram) 50 mg BID GTB Last administered on 08/16/17 08:29; Admin Dose 50 MG; Start 08/10/17 at 21:00 Ferrous Sulfate (Feosol Liquid Cup) 300 mg BID GTB Last administered on 08:14; Admin Dose 300 MG; Start 08/10/17 at 21:00 Multivitamins Therapeutic (Theragran) 1 tab DAILY GTB Last administered on 08/16 08:15; Admin Dose 1 TAB; Start 08/11/17 at 09:00 Lansoprazole (Prevacid) 30 mg DAILY@06 GTB Last administered on 08/16/17 06:04 ; Admin Dose 30 MG; Start 08/11/17 at 06:00 Diltiazem HCl (Cardizem) 60 mg Q8 GTB Last administered on 08/16/17 15:10; Admin Dose 60 MG; Start 08/10/17 at 22:00 Miscellaneous Information 1 ea NOTE XX ; Start 08/10/17 at 16:30 Glucose (Glutose) 15 gm Q15M PRN PO DECREASED GLUCOSE; Start 08/10/17 at 16:30 Glucose (Glutose) 22.5 gm Q15M PRN PO DECREASED GLUCOSE; Start 08/10/17 at 16:30 Dextrose (D50w Syringe) 25 ml Q15M PRN IV DECREASED GLUCOSE Last administered on 08/14/17 20:53; Admin Dose 25 ML; Start 08/10/17 at 16:30 Dextrose (D50w Syringe) 50 ml Q15M PRN IV DECREASED GLUCOSE Last administered on 08/12/17 21:56; Admin Dose 50 ML; Start 08/10/17 at 16:30 Glucagon (Glucagen) 1 mg Q15M PRN IM DECREASED GLUCOSE; Start 08/10/17 at 16:30 Glucose (Glutose) 15 gm Q15M PRN BUCCAL DECREASED GLUCOSE; Start 08/10/17 at 16: 30 Latanoprost (Xalatan) 1 drop HS BOTH EYES Last administered on 08/15/17 21:54 ; Admin Dose 1 DROP; Start 08/10/17 at 21:00 Diagnostic Test (Pha) (Accu-Chek) 1 ea 02 XX Last administered on 08/15/17 02: 07; Admin Dose 1 EA; Start 08/12/17 at 02:00 Insulin Aspart (Adult SC Insulin - Mild Algorithm)... Q4 SC Last administered on 08/16/17 12:13; Admin Dose 2 UNIT; Start 08/11/17 at 10:13 Sodium Chloride (1/2 NS) 1,000 ml @ 75 mls/hr [id number] IV Last administered on 08/16/17 01:30; Admin Dose 75 MLS/HR; Start 08/11/17 at 13:30 Metoprolol Tartrate (Lopressor) 25 mg BID GTB Last administered on 08/16/17 08 :16; Admin Dose 25 MG; Start 08/11/17 at 21:00 Sodium Hypochlorite 1 applic 1 applic BID IRR Last administered on 08/16/17 08 :17; Admin Dose 1 APPLIC; Start 08/11/17 at 21:00 Ceftriaxone Sodium 50 ml @ 100 mls/hr Q24H IVPB Last administered on 15:09; Admin Dose 100 MLS/HR; Start 08/12/17 at 13:30 Metronidazole (Flagyl 500 Mg (Pmx)) 100 ml @ 100 mls/hr Q8 IVPB Last administered on 08/16/17 15:09; Admin Dose 100 MLS/HR; Start 08/12/17 at 14:00 Enoxaparin Sodium 40 mg 40 mg DAILY SC Last administered on 08/16/17 08:26; Admin Dose 40 MG; Start 08/12/17 at 15:00 Daptomycin/Sodium Chloride (Cubicin/NS) 100 ml @ 200 mls/hr Q24H IVPB Last administered on 08/15/17 18:32; Admin Dose 200 MLS/HR; Start 08/14/17 at 16:30 Insulin Aspart (Novolog Insulin Pen) 8 unit Q6 SC Last administered on 12:13; Admin Dose 8 UNIT; Start 08/14/17 at 18:00 Insulin Glargine (Lantus) 42 unit AM SC Last administered on 08/16/17 08:26; Admin Dose 42 UNIT; Start 08/15/17 at 09:00 JAKE RAO MD Aug 16, 2017 16:17
[2017-08-16] MEDS: SOD CHLORIDE 0.9% IVPB SCH (17:17)
[2017-08-16] MEDS: DAPTOMYCIN IVPB SCH (17:17)
[2017-08-16] MEDS: DEXTROSE 50% 50 ML SYRINGE IV PRN (17:27)
[2017-08-16] MEDS: DOCUSATE SODIUM 10 MG/ML (10ML CUP) GTB SCH (20:36)
[2017-08-16] MEDS: MAGNESIUM HYDROXIDE 30ML CUP GTB SCH (20:36)
[2017-08-16] MEDS: ATORVASTATIN 40 MG TAB GTB SCH (20:37)
[2017-08-16] MEDS: LATANOPROST 0.005% 2.5 ML OPH BOTH EYES SCH (20:39)
[2017-08-16] MEDS: OCULAR LUBRICANT 3.5 GM OPH OINT BOTH EYES SCH (20:39)
[2017-08-16] MEDS: METOCLOPRAMIDE (1 MG/ML) 10 ML CUP GTB SCH (21:35)
[2017-08-17] VITALS (12 sets, daily range): BP systolic 115–134; BP diastolic 56–61; PULSE 72–91; RESP 16–20
[2017-08-17] MEDS: ACCU-CHEK XX SCH (00:59)
[2017-08-17] MEDS: SOD CHLORIDE 0.45% 1,000 ML IV SCH ×2 (00:59→13:41)
[2017-08-17] MEDS: INSULIN ASPART [NOVOLOG] 3 ML PEN SC SCH ×8 (00:59→20:57)
[2017-08-17] MEDS: METOCLOPRAMIDE (1 MG/ML) 10 ML CUP GTB SCH ×3 (05:56→20:49)
[2017-08-17] MEDS: LANSOPRAZOLE 30 MG CAP GTB SCH (05:56)
[2017-08-17] MEDS: metroNIDAZOLE 500 MG/NS (PMX) 100 ML IVPB SCH ×3 (05:56→20:49)
[2017-08-17] MEDS: DILTIAZEM 60 MG TAB GTB SCH ×3 (05:57→20:49)
[2017-08-17] MEDS: FERROUS SULFATE 60 MG/ML 5ML CUP GTB SCH ×2 (08:29→20:47)
[2017-08-17] MEDS: ASCORBIC ACID 500 MG TAB GTB SCH ×3 (08:29→20:49)
[2017-08-17] MEDS: LEVETIRACETAM (100 MG/ML) 5ML CUP GTB SCH ×2 (08:29→20:47)
[2017-08-17] MEDS: MULTIVITAMINS THERAPEUTIC TAB GTB SCH (08:30)
[2017-08-17] MEDS: MAGNESIUM OXIDE 400 MG TAB GTB SCH ×3 (08:30→20:49)
[2017-08-17] MEDS: METOPROLOL 25 MG TAB GTB SCH ×2 (08:30→20:48)
[2017-08-17] MEDS: FUROSEMIDE 20 MG TAB GTB SCH (08:31)
[2017-08-17] MEDS: traMADol 50 MG TAB GTB SCH ×2 (08:57→20:50)
[2017-08-17] MEDS: INSULIN GLARGINE [LANtus] 3 ML PEN SC SCH (09:34)
--- NOTE | 2017-08-17 11:32 | CONS ---
Date/Time of Note Date/Time of Note DATE: 08/17/17 TIME: 11:29 Assessment/Plan Assessment/Plan Problems: (1) Diabetes mellitus, type 2 Status: Chronic Comment: Patient is on a strange regimen of large dose of Lantus and 8 units of NovoLog given every 6 with her tube feeds. Although this is a bit eccentric it appears to be working with good glycemic control at these doses. I am of the philosophy that if we are achieving good glycemic control I will not alter the regimen. Will monitor the glucose levels and if they become out of control too low or too high, we will change the insulin regimen. Qualifiers: Diabetes mellitus complication status: with hyperglycemia Diabetes mellitus fci insulin use: without fci use Qualified Code: E11.65 - Type 2 diabetes mellitus with hyperglycemia, without long-term current use of insulin Consultation Date/Type/Reason Admit Date/Time Aug 10, 2017 at 14:12 Initial Consult Date 08/11/17 Type of Consultation: Endocrinology Reason for Consultation Type 2 diabetes mellitus out of control Referring Provider: LUZMA HYMAN MD 24 HR Interval Summary Constitutional: no complaints Exam/Review of Systems Vital Signs Vitals VS - Last 72 Hours, by Label Date Time Temp Pulse Resp B/P Pulse Ox O2 Delivery O2 Flow Rate FiO2 08/17/17 07:17 98.5 101 20 133/61 98 08/17/17 05:09 4.0 08/17/17 04:05 72 08/17/17 04:00 98.0 80 16 128/60 99 08/17/17 00:05 80 08/17/17 00:00 97.6 89 134/59 97 08/16/17 23:00 4.0 08/16/17 20:04 85 08/16/17 20:00 Nasal Cannula 4.0 08/16/17 20:00 97.8 91 18 133/61 99 08/16/17 16:00 86 08/16/17 15:25 98.1 93 17 133/63 99 08/16/17 12:00 Nasal Cannula 4.0 08/16/17 12:00 83 08/16/17 10:59 98.1 85 17 127/65 96 08/16/17 08:00 Nasal Cannula 4.0 08/16/17 08:00 95 08/16/17 07:24 98.1 103 17 126/58 95 08/16/17 04:39 84 08/16/17 04:35 98.3 88 18 108/61 94 08/16/17 02:36 4.0 08/16/17 00:32 98.4 88 18 107/54 94 08/16/17 00:00 78 08/15/17 23:58 4.0 08/15/17 21:03 Nasal Cannula 4.0 08/15/17 20:45 89 08/15/17 20:12 98.5 93 18 123/58 94 08/15/17 16:16 92 08/15/17 15:55 98.0 78 18 126/60 98 08/15/17 12:00 83 08/15/17 11:45 98.0 88 18 128/82 99 08/15/17 08:56 93 08/15/17 08:20 Nasal Cannula 4.0 08/15/17 08:09 98.0 78 18 115/56 98 08/15/17 05:36 3.0 08/15/17 04:22 98.6 81 18 124/62 98 08/15/17 04:00 81 08/15/17 00:52 89 08/14/17 23:58 98.4 82 17 111/54 98 08/14/17 23:50 3.0 08/14/17 20:37 106 08/14/17 20:00 100.1 103 18 132/61 95 08/14/17 20:00 Nasal Cannula 4.0 08/14/17 16:23 101 08/14/17 16:22 Nasal Cannula 4.0 08/14/17 16:15 Nasal Cannula 4.0 08/14/17 15:33 98.0 99 20 121/58 97 08/14/17 15:22 3.0 08/14/17 12:48 87 08/14/17 12:32 Nasal Cannula 4.0 08/14/17 11:53 98.3 95 20 119/59 95 Vital Signs Date Time Temp Pulse Resp B/P Pulse Ox O2 Delivery O2 Flow Rate FiO2 08/17/17 07:17 98.5 101 20 133/61 98 08/17/17 05:09 4.0 08/16/17 20:00 Nasal Cannula Intake and Output 08/16/17 08/16/17 08/17/17 15:00 23:00 07:00 Intake Total 1910 ml 1245 ml Output Total 850 ml 1500 ml Balance 1060 ml -255 ml Exam Constitutional: alert, frail (Profoundly debilitated appearing) Respiratory: clear to auscultation, normal air movement Cardiovascular: nl pulses, regular rate and rhythm, No edema, No murmurs/extra sounds, No rub Gastrointestinal: bowel sounds, nl liver, spleen, non-tender, soft, No mass, No rebound or guarding Musculoskeletal: nl extremities to inspection Extremities: normal pulses, No clubbing, No cyanosis, No edema Neurological: lethargic Additional Comments Bedside Glucose - 72 Hours Test 08/14/17 12:59 08/14/17 16:43 08/14/17 20:46 08/14/17 21:14 Bedside Glucose 260mg/dL (70-220) H 161mg/dL (70-220) 66mg/dL (70-220) L 119mg/dL (70-220) Test 08/14/17 21:49 08/14/17 23:42 08/15/17 05:43 08/15/17 09:02 Bedside Glucose 96mg/dL (70-220) 110mg/dL (70-220) 108mg/dL (70-220) 110mg/dL (70-220) Test 08/15/17 12:24 08/15/17 18:24 08/15/17 22:02 08/16/17 01:29 Bedside Glucose 161mg/dL (70-220) 149mg/dL (70-220) 131mg/dL (70-220) 134mg/dL (70-220) Test 08/16/17 06:02 08/16/17 08:21 08/16/17 12:09 08/16/17 17:21 Bedside Glucose 180mg/dL (70-220) 232mg/dL (70-220) H 191mg/dL (70-220) 46mg/dL (70-220) *L Test 08/16/17 17:37 08/16/17 17:57 08/16/17 20:35 08/17/17 00:57 Bedside Glucose 135mg/dL (70-220) 119mg/dL (70-220) 95mg/dL (70-220) 91mg/dL (70-220) Test 08/17/17 05:31 08/17/17 09:04 Bedside Glucose 131mg/dL (70-220) 185mg/dL (70-220) Results Result Diagram: 08/16/1736 08/16/17 0636 Results 24 hrs Laboratory Tests Test 08/16/17 12:09 08/16/17 17:21 08/16/17 17:37 08/16/17 17:57 Bedside Glucose 191 46 *L 135 119 Test 08/16/17 20:35 08/17/17 00:57 08/17/17 05:31 08/17/17 09:04 Bedside Glucose 95 91 131 185 Medications Medications Current Medications Acetaminophen (Tylenol Tab) 650 mg Q4H PRN GTB MILD PAIN LEVEL 1-3 Last administered on 08/14/17 20:59; Admin Dose 650 MG; Start 08/10/17 at 16:00 Eye Lubricant (Akwa Oint) 1 applic HS BOTH EYES Last administered on 08/16/17 20:39; Admin Dose 1 APPLIC; Start 08/10/17 at 21:00 Ascorbic Acid (Vitamin C) 500 mg TID GTB Last administered on 08/17/17 08:29; Admin Dose 500 MG; Start 08/10/17 at 21:00 Atorvastatin Calcium (Lipitor) 40 mg QHS GTB Last administered on 08/16/17 20: 37; Admin Dose 40 MG; Start 08/10/17 at 21:00 Bisacodyl (Dulcolax Supp) 10 mg DAILY PRN [place] PRN; Start 08/10/17 at 16:00 Docusate Sodium (Colace Liquid Cup) 200 mg QHS GTB Last administered on 20:36; Admin Dose 200 MG; Start 08/10/17 at 21:00 Furosemide (Lasix) 20 mg DAILY GTB Last administered on 08/17/17 08:31; Admin Dose 20 MG; Start 08/11/17 at 09:00 Levetiracetam (Keppra Liquid) 500 mg BID GTB Last administered on 08/17/17 08: 29; Admin Dose 500 MG; Start 08/10/17 at 21:00 Magnesium Hydroxide (Milk Of Mag) 30 ml QHS GTB Last administered on 08/16/17 20:36; Admin Dose 30 ML; Start 08/10/17 at 21:00 Magnesium Oxide (Mag-Ox 400) 400 mg TID GTB Last administered on 08/17/17 08: 30; Admin Dose 400 MG; Start 08/10/17 at 21:00 Ondansetron HCl (Zofran Tab) 4 mg Q6H PRN GTB NAUSEA AND/OR VOMITING; Start 08/10/17 at 16:00 Sodium Biphosphate/ Sodium Phosphate (Fleet Enema) 133 ml Q24H PRN [place] CONSTIPATION; Start 08/10/17 at 17:00 Tramadol HCl (Ultram) 50 mg BID GTB Last administered on 08/17/17 08:57; Admin Dose 50 MG; Start 08/10/17 at 21:00 Ferrous Sulfate (Feosol Liquid Cup) 300 mg BID GTB Last administered on 08:29; Admin Dose 300 MG; Start 08/10/17 at 21:00 Multivitamins Therapeutic (Theragran) 1 tab DAILY GTB Last administered on 08/17 08:30; Admin Dose 1 TAB; Start 08/11/17 at 09:00 Lansoprazole (Prevacid) 30 mg DAILY@06 GTB Last administered on 08/17/17 05:56 ; Admin Dose 30 MG; Start 08/11/17 at 06:00 Diltiazem HCl (Cardizem) 60 mg Q8 GTB Last administered on 08/17/17 05:57; Admin Dose 60 MG; Start 08/10/17 at 22:00 Miscellaneous Information 1 ea NOTE XX ; Start 08/10/17 at 16:30 Glucose (Glutose) 15 gm Q15M PRN PO DECREASED GLUCOSE; Start 08/10/17 at 16:30 Glucose (Glutose) 22.5 gm Q15M PRN PO DECREASED GLUCOSE; Start 08/10/17 at 16:30 Dextrose (D50w Syringe) 25 ml Q15M PRN IV DECREASED GLUCOSE Last administered on 08/16/17 17:27; Admin Dose 25 ML; Start 08/10/17 at 16:30 Dextrose (D50w Syringe) 50 ml Q15M PRN IV DECREASED GLUCOSE Last administered on 08/12/17 21:56; Admin Dose 50 ML; Start 08/10/17 at 16:30 Glucagon (Glucagen) 1 mg Q15M PRN IM DECREASED GLUCOSE; Start 08/10/17 at 16:30 Glucose (Glutose) 15 gm Q15M PRN BUCCAL DECREASED GLUCOSE; Start 08/10/17 at 16: 30 Latanoprost (Xalatan) 1 drop HS BOTH EYES Last administered on 08/16/17 20:39 ; Admin Dose 1 DROP; Start 08/10/17 at 21:00 Diagnostic Test (Pha) (Accu-Chek) 1 ea 02 XX Last administered on 08/15/17 02: 07; Admin Dose 1 EA; Start 08/12/17 at 02:00 Insulin Aspart (Adult SC Insulin - Mild Algorithm)... Q4 SC Last administered on 08/17/17 09:33; Admin Dose 2 UNIT; Start 08/11/17 at 10:13 Sodium Chloride (1/2 NS) 1,000 ml @ 75 mls/hr [id number] IV Last administered on 08/17/17 00:59; Admin Dose 75 MLS/HR; Start 08/11/17 at 13:30 Metoprolol Tartrate (Lopressor) 25 mg BID GTB Last administered on 08/17/17 08 :30; Admin Dose 25 MG; Start 08/11/17 at 21:00 Sodium Hypochlorite 1 applic 1 applic BID IRR Last administered on 08/16/17 20 :39; Admin Dose 1 APPLIC; Start 08/11/17 at 21:00 Ceftriaxone Sodium 50 ml @ 100 mls/hr Q24H IVPB Last administered on 15:09; Admin Dose 100 MLS/HR; Start 08/12/17 at 13:30 Metronidazole (Flagyl 500 Mg (Pmx)) 100 ml @ 100 mls/hr Q8 IVPB Last administered on 08/17/17 05:56; Admin Dose 100 MLS/HR; Start 08/12/17 at 14:00 Enoxaparin Sodium 40 mg 40 mg DAILY SC Last administered on 08/16/17 08:26; Admin Dose 40 MG; Start 08/12/17 at 15:00 Daptomycin/Sodium Chloride (Cubicin/NS) 100 ml @ 200 mls/hr Q24H IVPB Last administered on 08/16/17 17:17; Admin Dose 200 MLS/HR; Start 08/14/17 at 16:30 Insulin Aspart (Novolog Insulin Pen) 8 unit Q6 SC Last administered on 06:03; Admin Dose 8 UNIT; Start 08/14/17 at 18:00 Insulin Glargine (Lantus) 42 unit AM SC Last administered on 08/17/17 09:34; Admin Dose 42 UNIT; Start 08/15/17 at 09:00 Metoclopramide HCl (Reglan Liq) 10 mg Q8 GTB Last administered on 08/17/17 05: 56; Admin Dose 10 MG; Start 08/16/17 at 22:00 STEPHANIE NEIL MD Aug 17, 2017 11:32
--- NOTE | 2017-08-17 12:02 | PN ---
Date/Time of Note Date/Time of Note DATE: 08/17/17 TIME: 12:01 Assessment/Plan VTE Prophylaxis VTE Prophylaxis Intervention: other Lines/Catheters IV Catheter Type (from Nrsg): Peripheral IV Urinary Cath still in place: No Assessment/Plan Chief Complaint/Hosp Course -Sepsis secondary to UTI - Per ID consult --Infected decubitus ulcer- VRE positive - per SX Consult - plan for bed side debridement - UTI - Cont antibiotics - Persistent Hyperglycemia - Endocrinology consult- Dr Matthews notified - cont to monitor -Thrombocytosis - per Hematology consult- Dr Valdovinos - Anemia -Dysphagia- sp G tube placement - aspiration precautions - Epilepsy - seizure precautions - encephalopathy - CVA - CAD - Hypertension - Hx DVT - dementia - bipolar - schizophrenia - SCDs for DVT Prophylaxis.Will wait for Lovenox- Anticipating surgical intervention. Problems: Subjective 24 Hr Interval Summary Free Text/Dictation Patient denies any complaints Exam/Review of Systems Vital Signs Vitals Vital Signs Date Time Temp Pulse Resp B/P Pulse Ox O2 Delivery O2 Flow Rate FiO2 08/17/17 11:49 97.8 84 20 131/58 99 08/17/17 05:09 4.0 08/16/17 20:00 Nasal Cannula Intake and Output 08/16/17 08/16/17 08/17/17 15:00 23:00 07:00 Intake Total 1910 ml 1245 ml Output Total 850 ml 1500 ml Balance 1060 ml -255 ml Exam Constitutional: well developed Head: atraumatic, normocephalic Neck: supple Respiratory: clear to auscultation Cardiovascular: regular rate and rhythm Gastrointestinal: non-tender, soft Extremities: normal pulses Results Result Diagram: 08/16/17 0636 08/16/17 0636 Results 24 hrs Laboratory Tests Test 08/16/17 12:09 08/16/17 17:21 08/16/17 17:37 08/16/17 17:57 Bedside Glucose 191 46 *L 135 119 Test 08/16/17 20:35 08/17/17 00:57 08/17/17 05:31 08/17/17 09:04 Bedside Glucose 95 91 131 185 Medications Medications Current Medications Acetaminophen (Tylenol Tab) 650 mg Q4H PRN GTB MILD PAIN LEVEL 1-3 Last administered on 08/14/17t 20:59; Admin Dose 650 MG; Start 08/10/17 at 16:00 Eye Lubricant (Akwa Oint) 1 applic HS BOTH EYES Last administered on 08/16/17 20:39; Admin Dose 1 APPLIC; Start 08/10/17 at 21:00 Ascorbic Acid (Vitamin C) 500 mg TID GTB Last administered on 08/17/17 08:29; Admin Dose 500 MG; Start 08/10/17 at 21:00 Atorvastatin Calcium (Lipitor) 40 mg QHS GTB Last administered on 08/16/17 20: 37; Admin Dose 40 MG; Start 08/10/17 at 21:00 Bisacodyl (Dulcolax Supp) 10 mg DAILY PRN [place] PRN; Start 08/10/17 at 16:00 Docusate Sodium (Colace Liquid Cup) 200 mg QHS GTB Last administered on 20:36; Admin Dose 200 MG; Start 08/10/17 at 21:00 Furosemide (Lasix) 20 mg DAILY GTB Last administered on 08/17/17 08:31; Admin Dose 20 MG; Start 08/11/17 at 09:00 Levetiracetam (Keppra Liquid) 500 mg BID GTB Last administered on 08/17/17 08: 29; Admin Dose 500 MG; Start 08/10/17 at 21:00 Magnesium Hydroxide (Milk Of Mag) 30 ml QHS GTB Last administered on 08/16/17 20:36; Admin Dose 30 ML; Start 08/10/17 at 21:00 Magnesium Oxide (Mag-Ox 400) 400 mg TID GTB Last administered on 08/17/17 08: 30; Admin Dose 400 MG; Start 08/10/17 at 21:00 Ondansetron HCl (Zofran Tab) 4 mg Q6H PRN GTB NAUSEA AND/OR VOMITING; Start 08/10/17 at 16:00 Sodium Biphosphate/ Sodium Phosphate (Fleet Enema) 133 ml Q24H PRN [place] CONSTIPATION; Start 08/10/17 at 17:00 Tramadol HCl (Ultram) 50 mg BID GTB Last administered on 08/17/17 08:57; Admin Dose 50 MG; Start 08/10/17 at 21:00 Ferrous Sulfate (Feosol Liquid Cup) 300 mg BID GTB Last administered on 08:29; Admin Dose 300 MG; Start 08/10/17 at 21:00 Multivitamins Therapeutic (Theragran) 1 tab DAILY GTB Last administered on 08/17 08:30; Admin Dose 1 TAB; Start 08/11/17 at 09:00 Lansoprazole (Prevacid) 30 mg DAILY@06 GTB Last administered on 08/17/17 05:56 ; Admin Dose 30 MG; Start 08/11/17 at 06:00 Diltiazem HCl (Cardizem) 60 mg Q8 GTB Last administered on 08/17/17 05:57; Admin Dose 60 MG; Start 08/10/17 at 22:00 Miscellaneous Information 1 ea NOTE XX ; Start 08/10/17 at 16:30 Glucose (Glutose) 15 gm Q15M PRN PO DECREASED GLUCOSE; Start 08/10/17 at 16:30 Glucose (Glutose) 22.5 gm Q15M PRN PO DECREASED GLUCOSE; Start 08/10/17 at 16:30 Dextrose (D50w Syringe) 25 ml Q15M PRN IV DECREASED GLUCOSE Last administered on 08/16/17 17:27; Admin Dose 25 ML; Start 08/10/17 at 16:30 Dextrose (D50w Syringe) 50 ml Q15M PRN IV DECREASED GLUCOSE Last administered on 08/12/17 21:56; Admin Dose 50 ML; Start 08/10/17 at 16:30 Glucagon (Glucagen) 1 mg Q15M PRN IM DECREASED GLUCOSE; Start 08/10/17 at 16:30 Glucose (Glutose) 15 gm Q15M PRN BUCCAL DECREASED GLUCOSE; Start 08/10/17 at 16: 30 Latanoprost (Xalatan) 1 drop HS BOTH EYES Last administered on 08/16/17 20:39 ; Admin Dose 1 DROP; Start 08/10/17 at 21:00 Diagnostic Test (Pha) (Accu-Chek) 1 ea 02 XX Last administered on 08/15/17 02: 07; Admin Dose 1 EA; Start 08/12/17 at 02:00 Insulin Aspart (Adult SC Insulin - Mild Algorithm)... Q4 SC Last administered on 08/17/17 09:33; Admin Dose 2 UNIT; Start 08/11/17 at 10:13 Sodium Chloride (1/2 NS) 1,000 ml @ 75 mls/hr [id number] IV Last administered on 08/17/17 00:59; Admin Dose 75 MLS/HR; Start 08/11/17 at 13:30 Metoprolol Tartrate (Lopressor) 25 mg BID GTB Last administered on 08/17/17 08 :30; Admin Dose 25 MG; Start 08/11/17 at 21:00 Sodium Hypochlorite 1 applic 1 applic BID IRR Last administered on 08/16/17 20 :39; Admin Dose 1 APPLIC; Start 08/11/17 at 21:00 Ceftriaxone Sodium 50 ml @ 100 mls/hr Q24H IVPB Last administered on 15:09; Admin Dose 100 MLS/HR; Start 08/12/17 at 13:30 Metronidazole (Flagyl 500 Mg (Pmx)) 100 ml @ 100 mls/hr Q8 IVPB Last administered on 08/17/17 05:56; Admin Dose 100 MLS/HR; Start 08/12/17 at 14:00 Enoxaparin Sodium 40 mg 40 mg DAILY SC Last administered on 08/16/17 08:26; Admin Dose 40 MG; Start 08/12/17 at 15:00 Daptomycin/Sodium Chloride (Cubicin/NS) 100 ml @ 200 mls/hr Q24H IVPB Last administered on 08/16/17 17:17; Admin Dose 200 MLS/HR; Start 08/14/17 at 16:30 Insulin Aspart (Novolog Insulin Pen) 8 unit Q6 SC Last administered on 06:03; Admin Dose 8 UNIT; Start 08/14/17 at 18:00 Insulin Glargine (Lantus) 42 unit AM SC Last administered on 08/17/17 09:34; Admin Dose 42 UNIT; Start 08/15/17 at 09:00 Metoclopramide HCl (Reglan Liq) 10 mg Q8 GTB Last administered on 08/17/17 05: 56; Admin Dose 10 MG; Start 08/16/17 at 22:00 VIVIENNE MONTILLA Aug 17, 2017 12:02
--- NOTE | 2017-08-17 12:26 | CONS ---
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, MSSA, and VRE ; s/p debridement 08/14/2017 - Bacteremia due to CoNS - C diff colitis - Thrombocytosis - G-tube dependent - T2DM with BS uncontrolled - Hgb A1c 7.5% - H/o CVA - H/o tonic-clonic seizures - CAD - HTN - HLD - Dementia - Bipolar/schizophrenia - DVT - thalassemia - severe constipation - improved - 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 - h/o UTI d/t ESBL+E.Coli 12/03/2016 Recommendations: - continue Daptomycin (08/14/2017-); s/p Vanco - continue ceftriaxone (08/12/2017-) for proteus infection - continue IV metronidazole (08/12/2017-) for c-diff - trend WBC - consider DC docusate sodium - continue enteric contact isolation Problems: Consultation Date/Type/Reason Admit Date/Time Aug 10, 2017 at 14:12 Type of Consultation: id Referring Provider: LUZMA HYMAN MD Exam/Review of Systems Vital Signs Vitals Vital Signs Date Time Temp Pulse Resp B/P Pulse Ox O2 Delivery O2 Flow Rate FiO2 08/17/17 11:49 97.8 84 20 131/58 99 08/17/17 05:09 4.0 08/16/17 20:00 Nasal Cannula Intake and Output 08/16/17 08/16/17 08/17/17 15:00 23:00 07:00 Intake Total 1910 ml 1245 ml Output Total 850 ml 1500 ml Balance 1060 ml -255 ml Exam Constitutional: alert, frail, non-verbal Eyes: EOMI Respiratory: clear to auscultation Cardiovascular: regular rate and rhythm Gastrointestinal: soft Results Result Diagram: 08/16/17 0636 08/16/17 0636 Results 24 hrs Laboratory Tests Test 08/16/17 17:21 08/16/17 17:37 08/16/17 17:57 08/16/17 20:35 Bedside Glucose 46 *L 135 119 95 Test 08/17/17 00:57 08/17/17 05:31 08/17/17 09:04 Bedside Glucose 91 131 185 Medications Medications Current Medications Acetaminophen (Tylenol Tab) 650 mg Q4H PRN GTB MILD PAIN LEVEL 1-3 Last administered on 08/14/17 20:59; Admin Dose 650 MG; Start 08/10/17 at 16:00 Eye Lubricant (Akwa Oint) 1 applic HS BOTH EYES Last administered on 08/16/17 20:39; Admin Dose 1 APPLIC; Start 08/10/17 at 21:00 Ascorbic Acid (Vitamin C) 500 mg TID GTB Last administered on 08/17/17 08:29; Admin Dose 500 MG; Start 08/10/17 at 21:00 Atorvastatin Calcium (Lipitor) 40 mg QHS GTB Last administered on 08/16/17 20: 37; Admin Dose 40 MG; Start 08/10/17 at 21:00 Bisacodyl (Dulcolax Supp) 10 mg DAILY PRN [place] PRN; Start 08/10/17 at 16:00 Docusate Sodium (Colace Liquid Cup) 200 mg QHS GTB Last administered on 20:36; Admin Dose 200 MG; Start 08/10/17 at 21:00 Furosemide (Lasix) 20 mg DAILY GTB Last administered on 08/17/17 08:31; Admin Dose 20 MG; Start 08/11/17 at 09:00 Levetiracetam (Keppra Liquid) 500 mg BID GTB Last administered on 08/17/17 08: 29; Admin Dose 500 MG; Start 08/10/17 at 21:00 Magnesium Hydroxide (Milk Of Mag) 30 ml QHS GTB Last administered on 08/16/17 20:36; Admin Dose 30 ML; Start 08/10/17 at 21:00 Magnesium Oxide (Mag-Ox 400) 400 mg TID GTB Last administered on 08/17/17 08: 30; Admin Dose 400 MG; Start 08/10/17 at 21:00 Ondansetron HCl (Zofran Tab) 4 mg Q6H PRN GTB NAUSEA AND/OR VOMITING; Start 08/10/17 at 16:00 Sodium Biphosphate/ Sodium Phosphate (Fleet Enema) 133 ml Q24H PRN [place] CONSTIPATION; Start 08/10/17 at 17:00 Tramadol HCl (Ultram) 50 mg BID GTB Last administered on 08/17/17 08:57; Admin Dose 50 MG; Start 08/10/17 at 21:00 Ferrous Sulfate (Feosol Liquid Cup) 300 mg BID GTB Last administered on 08:29; Admin Dose 300 MG; Start 08/10/17 at 21:00 Multivitamins Therapeutic (Theragran) 1 tab DAILY GTB Last administered on 08/17 08:30; Admin Dose 1 TAB; Start 08/11/17 at 09:00 Lansoprazole (Prevacid) 30 mg DAILY@06 GTB Last administered on 08/17/17 05:56 ; Admin Dose 30 MG; Start 08/11/17 at 06:00 Diltiazem HCl (Cardizem) 60 mg Q8 GTB Last administered on 08/17/17 05:57; Admin Dose 60 MG; Start 08/10/17 at 22:00 Miscellaneous Information 1 ea NOTE XX ; Start 08/10/17 at 16:30 Glucose (Glutose) 15 gm Q15M PRN PO DECREASED GLUCOSE; Start 08/10/17 at 16:30 Glucose (Glutose) 22.5 gm Q15M PRN PO DECREASED GLUCOSE; Start 08/10/17 at 16:30 Dextrose (D50w Syringe) 25 ml Q15M PRN IV DECREASED GLUCOSE Last administered on 08/16/17 17:27; Admin Dose 25 ML; Start 08/10/17 at 16:30 Dextrose (D50w Syringe) 50 ml Q15M PRN IV DECREASED GLUCOSE Last administered on 08/12/17 21:56; Admin Dose 50 ML; Start 08/10/17 at 16:30 Glucagon (Glucagen) 1 mg Q15M PRN IM DECREASED GLUCOSE; Start 08/10/17 at 16:30 Glucose (Glutose) 15 gm Q15M PRN BUCCAL DECREASED GLUCOSE; Start 08/10/17 at 16: 30 Latanoprost (Xalatan) 1 drop HS BOTH EYES Last administered on 08/16/17 20:39 ; Admin Dose 1 DROP; Start 08/10/17 at 21:00 Diagnostic Test (Pha) (Accu-Chek) 1 ea 02 XX Last administered on 08/15/17 02: 07; Admin Dose 1 EA; Start 08/12/17 at 02:00 Insulin Aspart (Adult SC Insulin - Mild Algorithm)... Q4 SC Last administered on 08/17/17 09:33; Admin Dose 2 UNIT; Start 08/11/17 at 10:13 Sodium Chloride (1/2 NS) 1,000 ml @ 75 mls/hr [id number] IV Last administered on 08/17/17 00:59; Admin Dose 75 MLS/HR; Start 08/11/17 at 13:30 Metoprolol Tartrate (Lopressor) 25 mg BID GTB Last administered on 08/17/17 08 :30; Admin Dose 25 MG; Start 08/11/17 at 21:00 Sodium Hypochlorite 1 applic 1 applic BID IRR Last administered on 08/16/17 20 :39; Admin Dose 1 APPLIC; Start 08/11/17 at 21:00 Ceftriaxone Sodium 50 ml @ 100 mls/hr Q24H IVPB Last administered on 15:09; Admin Dose 100 MLS/HR; Start 08/12/17 at 13:30 Metronidazole (Flagyl 500 Mg (Pmx)) 100 ml @ 100 mls/hr Q8 IVPB Last administered on 08/17/17 05:56; Admin Dose 100 MLS/HR; Start 08/12/17 at 14:00 Enoxaparin Sodium 40 mg 40 mg DAILY SC Last administered on 08/16/17 08:26; Admin Dose 40 MG; Start 08/12/17 at 15:00 Daptomycin/Sodium Chloride (Cubicin/NS) 100 ml @ 200 mls/hr Q24H IVPB Last administered on 08/16/17 17:17; Admin Dose 200 MLS/HR; Start 08/14/17 at 16:30 Insulin Aspart (Novolog Insulin Pen) 8 unit Q6 SC Last administered on 06:03; Admin Dose 8 UNIT; Start 08/14/17 at 18:00 Insulin Glargine (Lantus) 42 unit AM SC Last administered on 08/17/17 09:34; Admin Dose 42 UNIT; Start 08/15/17 at 09:00 Metoclopramide HCl (Reglan Liq) 10 mg Q8 GTB Last administered on 08/17/17t 05: 56; Admin Dose 10 MG; Start 08/16/17 at 22:00 BENITO THOMAS MD Aug 17, 2017 12:26
--- NOTE | 2017-08-17 12:42 | PN ---
Date/Time of Note Date/Time of Note DATE: 08/17/17 TIME: 12:41 Assessment/Plan Lines/Catheters IV Catheter Type (from [facility]): Peripheral IV Shields in Place (from [facility]): No Assessment/Plan Chief Complaint/Hosp Course 1. Sacral wound stage IV with osteomyelitis: s/p debridement 08/14, cultures noted -debridement prn -local care with dakin's -iv abx per sensitivities -frequent turning and offloading -low airloss mattress -nutrition optimization -vitamin c/short term zinc 2. Vomiting with abdominal distention and ?sbo: KUB without evidence of obstruction; +bowel function: vomiting likely 2/2 rate of medication administration per nursing; imaging noted: no vomiting currently, tolerating tf -slow medication administration per gtube: use gravity -monitor 3. UTI: cultures noted -cath care -abx per sensitivities 4.Hypochromic anemia: no acute bleed noted -monitor and transfuse as needed -workup per medical team 5. Sepsis with Leukocytosis: likely 2/2 above: improving -as above 6. Thrombocytosis: 2/2 infection vs. other; improving -monitor and workup if persistent 7. Dysphagia with feeding per feeding tube -cont tf with aspiration precautions 8. DM/ Hyperglycemia: with episodes of hypoglycemia -blood sugar optimization 9. Elevated alk phos: 2/2 osteo vs. gi source (doubt): abd us noted -monitor 10. HTN: -medical optimization 11. hyponatremia- judicious fluids+/- fluid restriction 12. Hx. of bipolar disorder/schizophrenia -medical./psych management 13. History of epilepsy -sz precautions 14. Loose stools stool studies Thank you, Problems: Subjective 24 Hr Interval Summary Debridement 08/14. WBC improved. Tachycardia improved. No fevers, chills, myalgias overnight. No sob, congested cough, cp, palpitations, tele rhythm changes. Tolerating tf +bowel function. Exam/Review of Systems Vital Signs Vitals Vital Signs Date Time Temp Pulse Resp B/P Pulse Ox O2 Delivery O2 Flow Rate FiO2 08/17/17 11:49 97.8 84 20 131/58 99 08/17/17 05:09 4.0 08/16/17 20:00 Nasal Cannula Intake and Output 08/16/17 08/16/17 08/17/17 14:59 22:59 06:59 Intake Total 1910 ml 1245 ml Output Total 850 ml 1500 ml Balance 1060 ml -255 ml Exam Free Text/Dictation Constitutional: alert, oriented (to self), other (answers simple questions) Psych: nl mood/affect Head: atraumatic, normocephalic Eyes: nl lids, nl sclera ENMT: mucosa pink and moist Neck: non-tender, supple Respiratory: normal air movement Cardiovascular: regular rate and rhythm SR Gastrointestinal: bowel sounds, distended (min), non-tender, gtube, soft Genitourinary - Female: nl external genitalia Musculoskeletal: other (stiffness) Extremities: normal pulses, No edema Neurological: nl speech, No nl mental status (slow to respond), No nl strength Skin: other (multiple wounds, sacral ulcer packed with improved periwound erythema, min drainage) ble leg wounds Results Result Diagram: 08/16/17 0636 08/16/17 0636 OSIRIS GODOY MD Aug 17, 2017 12:42
[2017-08-17] MEDS: CEFTRIAXONE 1 GM/NS 50 ML IVPB SCH (13:39)
[2017-08-17] MEDS: SODIUM HYPOCHLORITE 0.125% 473 ML BTL IRR SCH ×2 (13:41→20:50)
[2017-08-17] MEDS: ENOXAPARIN 40 MG/0.4 ML SYG SC SCH (15:07)
[2017-08-17] MEDS: SOD CHLORIDE 0.9% IVPB SCH (16:58)
[2017-08-17] MEDS: DAPTOMYCIN IVPB SCH (16:58)
--- NOTE | 2017-08-17 18:29 | CONS ---
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, MSSA, and VRE ; s/p debridement 08/14/2017 - Bacteremia due to CoNS - C diff colitis - Thrombocytosis - G-tube dependent - T2DM with BS uncontrolled - Hgb A1c 7.5% - H/o CVA - H/o tonic-clonic seizures - CAD - HTN - HLD - Dementia - Bipolar/schizophrenia - DVT - thalassemia - severe constipation - improved - 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 - h/o UTI d/t ESBL+E.Coli 12/03/2016 Recommendations: - continue Daptomycin (08/14/2017-); s/p Vanco - continue ceftriaxone (08/12/2017-) for proteus infection - continue IV metronidazole (08/12/2017-) for c-diff - trend WBC - consider DC docusate sodium - continue enteric contact isolation Consultation Date/Type/Reason Admit Date/Time Aug 10, 2017 at 14:12 Initial Consult Date 08/11/17 Type of Consultation: id Referring Provider: LUZMA HYMAN MD 24 HR Interval Summary Constitutional: requiring O2 Detailed Summary Respiratory: no complaints Gastrointestinal: no complaints Genitourinary: no complaints Musculoskeletal: no complaints Exam/Review of Systems Vital Signs Vitals Vital Signs Date Time Temp Pulse Resp B/P Pulse Ox O2 Delivery O2 Flow Rate FiO2 08/17/17 15:50 97.7 87 20 115/56 98 08/17/17 07:00 4.0 08/16/17 20:00 Nasal Cannula Intake and Output 08/16/17 08/16/17 08/17/17 15:00 23:00 07:00 Intake Total 1910 ml 1245 ml Output Total 850 ml 1500 ml Balance 1060 ml -255 ml Exam Constitutional: alert Respiratory: diminished breath sounds, normal air movement Results Result Diagram: 08/16/17 0636 08/16/17 0636 Results 24 hrs Laboratory Tests Test 08/16/17 20:35 08/17/17 00:57 08/17/17 05:31 08/17/17 09:04 Bedside Glucose 95 91 131 185 Test 08/17/17 13:00 Bedside Glucose 184 Medications Medications Current Medications Acetaminophen (Tylenol Tab) 650 mg Q4H PRN GTB MILD PAIN LEVEL 1-3 Last administered on 08/14/17 20:59; Admin Dose 650 MG; Start 08/10/17 at 16:00 Eye Lubricant (Akwa Oint) 1 applic HS BOTH EYES Last administered on 08/16/17 20:39; Admin Dose 1 APPLIC; Start 08/10/17 at 21:00 Ascorbic Acid (Vitamin C) 500 mg TID GTB Last administered on 08/17/17 13:40; Admin Dose 500 MG; Start 08/10/17 at 21:00 Atorvastatin Calcium (Lipitor) 40 mg QHS GTB Last administered on 08/16/17 20: 37; Admin Dose 40 MG; Start 08/10/17 at 21:00 Bisacodyl (Dulcolax Supp) 10 mg DAILY PRN HI PRN; Start 08/10/17 at 16:00 Docusate Sodium (Colace Liquid Cup) 200 mg QHS GTB Last administered on 20:36; Admin Dose 200 MG; Start 08/10/17 at 21:00 Furosemide (Lasix) 20 mg DAILY GTB Last administered on 08/17/17 08:31; Admin Dose 20 MG; Start 08/11/17 at 09:00 Levetiracetam (Keppra Liquid) 500 mg BID GTB Last administered on 08/17/17 08: 29; Admin Dose 500 MG; Start 08/10/17 at 21:00 Magnesium Hydroxide (Milk Of Mag) 30 ml QHS GTB Last administered on 08/16/17 20:36; Admin Dose 30 ML; Start 08/10/17 at 21:00 Magnesium Oxide (Mag-Ox 400) 400 mg TID GTB Last administered on 08/17/17 13: 40; Admin Dose 400 MG; Start 08/10/17 at 21:00 Ondansetron HCl (Zofran Tab) 4 mg Q6H PRN GTB NAUSEA AND/OR VOMITING; Start 08/10/17 at 16:00 Sodium Biphosphate/ Sodium Phosphate (Fleet Enema) 133 ml Q24H PRN HI CONSTIPATION; Start 08/10/17 at 17:00 Tramadol HCl (Ultram) 50 mg BID GTB Last administered on 08/17/17 08:57; Admin Dose 50 MG; Start 08/10/17 at 21:00 Ferrous Sulfate (Feosol Liquid Cup) 300 mg BID GTB Last administered on 08:29; Admin Dose 300 MG; Start 08/10/17 at 21:00 Multivitamins Therapeutic (Theragran) 1 tab DAILY GTB Last administered on 08/17 08:30; Admin Dose 1 TAB; Start 08/11/17 at 09:00 Lansoprazole (Prevacid) 30 mg DAILY@06 GTB Last administered on 08/17/17 05:56 ; Admin Dose 30 MG; Start 08/11/17 at 06:00 Diltiazem HCl (Cardizem) 60 mg Q8 GTB Last administered on 08/17/17 13:40; Admin Dose 60 MG; Start 08/10/17 at 22:00 Miscellaneous Information 1 ea NOTE XX ; Start 08/10/17 at 16:30 Glucose (Glutose) 15 gm Q15M PRN PO DECREASED GLUCOSE; Start 08/10/17 at 16:30 Glucose (Glutose) 22.5 gm Q15M PRN PO DECREASED GLUCOSE; Start 08/10/17 at 16:30 Dextrose (D50w Syringe) 25 ml Q15M PRN IV DECREASED GLUCOSE Last administered on 08/16/17 17:27; Admin Dose 25 ML; Start 08/10/17 at 16:30 Dextrose (D50w Syringe) 50 ml Q15M PRN IV DECREASED GLUCOSE Last administered on 08/12/17 21:56; Admin Dose 50 ML; Start 08/10/17 at 16:30 Glucagon (Glucagen) 1 mg Q15M PRN IM DECREASED GLUCOSE; Start 08/10/17 at 16:30 Glucose (Glutose) 15 gm Q15M PRN BUCCAL DECREASED GLUCOSE; Start 08/10/17 at 16: 30 Latanoprost (Xalatan) 1 drop HS BOTH EYES Last administered on 08/16/17 20:39 ; Admin Dose 1 DROP; Start 08/10/17 at 21:00 Diagnostic Test (Pha) (Accu-Chek) 1 ea 02 XX Last administered on 08/15/17 02: 07; Admin Dose 1 EA; Start 08/12/17 at 02:00 Insulin Aspart (Adult SC Insulin - Mild Algorithm)... Q4 SC Last administered on 08/17/17 15:46; Admin Dose 2 UNIT; Start 08/11/17 at 10:13 Sodium Chloride (1/2 NS) 1,000 ml @ 75 mls/hr [id number] IV Last administered on 08/17/17 13:41; Admin Dose 75 MLS/HR; Start 08/11/17 at 13:30 Metoprolol Tartrate (Lopressor) 25 mg BID GTB Last administered on 08/17/17 08 :30; Admin Dose 25 MG; Start 08/11/17 at 21:00 Sodium Hypochlorite 1 applic 1 applic BID IRR Last administered on 08/17/17 13 :41; Admin Dose 1 APPLIC; Start 08/11/17 at 21:00 Ceftriaxone Sodium 50 ml @ 100 mls/hr Q24H IVPB Last administered on 13:39; Admin Dose 100 MLS/HR; Start 08/12/17 at 13:30 Metronidazole (Flagyl 500 Mg (Pmx)) 100 ml @ 100 mls/hr Q8 IVPB Last administered on 08/17/17 13:39; Admin Dose 100 MLS/HR; Start 08/12/17 at 14:00 Enoxaparin Sodium 40 mg 40 mg DAILY SC Last administered on 08/17/17 15:07; Admin Dose 40 MG; Start 08/12/17 at 15:00 Daptomycin/Sodium Chloride (Cubicin/NS) 100 ml @ 200 mls/hr Q24H IVPB Last administered on 08/17/17 16:58; Admin Dose 200 MLS/HR; Start 08/14/17 at 16:30 Insulin Glargine (Lantus) 42 unit AM SC Last administered on 08/17/17 09:34; Admin Dose 42 UNIT; Start 08/15/17 at 09:00 Metoclopramide HCl (Reglan Liq) 10 mg Q8 GTB Last administered on 08/17/17 13: 39; Admin Dose 10 MG; Start 08/16/17 at 22:00 MICHAEL COLINDRES Aug 17, 2017 18:29
[2017-08-17] MEDS: OCULAR LUBRICANT 3.5 GM OPH OINT BOTH EYES SCH (20:47)
[2017-08-17] MEDS: ATORVASTATIN 40 MG TAB GTB SCH (20:47)
[2017-08-17] MEDS: LATANOPROST 0.005% 2.5 ML OPH BOTH EYES SCH (20:47)
[2017-08-17] MEDS: DOCUSATE SODIUM 10 MG/ML (10ML CUP) GTB SCH (20:47)
[2017-08-17] MEDS: MAGNESIUM HYDROXIDE 30ML CUP GTB SCH (20:50)
[2017-08-18] VITALS (13 sets, daily range): BP systolic 117–131; BP diastolic 56–80; PULSE 72–93; RESP 18–22
[2017-08-18] MEDS: ACCU-CHEK XX SCH ×2 (02:00→23:39)
[2017-08-18] MEDS: INSULIN ASPART [NOVOLOG] 3 ML PEN SC SCH ×7 (02:03→23:39)
[2017-08-18] MEDS: DILTIAZEM 60 MG TAB GTB SCH ×3 (06:24→21:22)
[2017-08-18] MEDS: LANSOPRAZOLE 30 MG CAP GTB SCH (06:24)
[2017-08-18] MEDS: METOCLOPRAMIDE (1 MG/ML) 10 ML CUP GTB SCH ×3 (06:24→21:22)
[2017-08-18] MEDS: metroNIDAZOLE 500 MG/NS (PMX) 100 ML IVPB SCH ×3 (06:24→21:22)
[2017-08-18] MEDS: SOD CHLORIDE 0.45% 1,000 ML IV SCH ×2 (06:27→18:44)
[2017-08-18] MEDS: traMADol 50 MG TAB GTB SCH ×2 (08:39→21:24)
[2017-08-18] MEDS: MULTIVITAMINS THERAPEUTIC TAB GTB SCH (08:39)
[2017-08-18] MEDS: LEVETIRACETAM (100 MG/ML) 5ML CUP GTB SCH ×2 (08:39→21:20)
[2017-08-18] MEDS: FERROUS SULFATE 60 MG/ML 5ML CUP GTB SCH ×2 (08:39→21:20)
[2017-08-18] MEDS: MAGNESIUM OXIDE 400 MG TAB GTB SCH ×3 (08:39→21:20)
[2017-08-18] MEDS: FUROSEMIDE 20 MG TAB GTB SCH (08:40)
[2017-08-18] MEDS: ASCORBIC ACID 500 MG TAB GTB SCH ×3 (08:40→21:20)
[2017-08-18] MEDS: METOPROLOL 25 MG TAB GTB SCH ×2 (08:40→21:21)
[2017-08-18] MEDS: SODIUM HYPOCHLORITE 0.125% 473 ML BTL IRR SCH ×2 (08:42→21:21)
[2017-08-18] MEDS: INSULIN GLARGINE [LANtus] 3 ML PEN SC SCH (08:45)
[2017-08-18] MEDS: ENOXAPARIN 40 MG/0.4 ML SYG SC SCH (08:45)
--- NOTE | 2017-08-18 11:39 | CONS ---
Date/Time of Note Date/Time of Note DATE: 08/18/17 TIME: 11:37 Assessment/Plan Assessment/Plan Problems: (1) Diabetes mellitus, type 2 Status: Chronic Comment: Glucose mildly above goal over the last 24 hours once. Will not change current insulin regimen. Reevaluate tomorrow Qualifiers: Diabetes mellitus complication status: with hyperglycemia Diabetes mellitus skilled nursing insulin use: without skilled nursing use Qualified Code: E11.65 - Type 2 diabetes mellitus with hyperglycemia, without long-term current use of insulin Consultation Date/Type/Reason Admit Date/Time Aug 10, 2017 at 14:12 Initial Consult Date 08/11/17 Type of Consultation: Endocrinology Reason for Consultation Type 2 diabetes mellitus out of control Referring Provider: LUZMA HYMAN MD 24 HR Interval Summary Constitutional: no complaints Exam/Review of Systems Vital Signs Vitals VS - Last 72 Hours, by Label Date Time Temp Pulse Resp B/P Pulse Ox O2 Delivery O2 Flow Rate FiO2 08/18/17 11:18 97.9 79 20 122/61 98 08/18/17 08:29 84 08/18/17 08:00 Nasal Cannula 3.0 08/18/17 07:40 97.9 85 20 119/59 100 08/18/17 05:00 4.0 08/18/17 04:29 76 08/18/17 03:29 98.1 85 18 121/56 97 08/18/17 00:44 98.3 88 20 131/71 98 08/18/17 00:00 93 08/17/17 22:00 4.0 08/17/17 20:57 98.1 88 20 119/56 96 08/17/17 20:00 85 08/17/17 20:00 Nasal Cannula 3.0 08/17/17 16:05 83 08/17/17 15:50 97.7 87 20 115/56 98 08/17/17 12:06 73 08/17/17 11:49 97.8 84 20 131/58 99 08/17/17 08:38 Nasal Cannula 3.0 08/17/17 08:06 91 08/17/17 07:17 98.5 101 20 133/61 98 08/17/17 07:00 4.0 08/17/17 05:09 4.0 08/17/17 04:05 72 08/17/17 04:00 98.0 80 16 128/60 99 08/17/17 00:05 80 08/17/17 00:00 97.6 89 134/59 97 08/16/17 23:00 4.0 08/16/17 20:04 85 08/16/17 20:00 Nasal Cannula 4.0 08/16/17 20:00 97.8 91 18 133/61 99 08/16/17 16:00 86 08/16/17 15:25 98.1 93 17 133/63 99 08/16/17 12:00 Nasal Cannula 4.0 08/16/17 12:00 83 08/16/17 10:59 98.1 85 17 127/65 96 08/16/17 08:00 Nasal Cannula 4.0 08/16/17 08:00 95 08/16/17 07:24 98.1 103 17 126/58 95 08/16/17 04:39 84 08/16/17 04:35 98.3 88 18 108/61 94 08/16/17 02:36 4.0 08/16/17 00:32 98.4 88 18 107/54 94 08/16/17 00:00 78 08/15/17 23:58 4.0 08/15/17 21:03 Nasal Cannula 4.0 08/15/17 20:45 89 08/15/17 20:12 98.5 93 18 123/58 94 08/15/17 16:16 92 08/15/17 15:55 98.0 78 18 126/60 98 08/15/17 12:00 83 08/15/17 11:45 98.0 88 18 128/82 99 Vital Signs Date Time Temp Pulse Resp B/P Pulse Ox O2 Delivery O2 Flow Rate FiO2 08/18/17 11:18 97.9 79 20 122/61 98 08/18/17 08:00 Nasal Cannula 3.0 Intake and Output 08/17/17 08/17/17 08/18/17 15:00 23:00 07:00 Intake Total 1740 ml 1720 ml Output Total 2000 ml 650 ml Balance -260 ml 1070 ml Exam Constitutional: alert, frail Psych: nl mood/affect, no complaints Respiratory: clear to auscultation, normal air movement Cardiovascular: nl pulses, regular rate and rhythm, No edema, No murmurs/extra sounds, No rub Gastrointestinal: bowel sounds, nl liver, spleen, non-tender, soft, No mass, No rebound or guarding Musculoskeletal: nl extremities to inspection Extremities: normal pulses, No clubbing, No cyanosis, No edema Neurological: BLASTING HELPER II-XII intact, lethargic, nl speech Additional Comments Bedside Glucose - 72 Hours Test 08/15/17 12:24 08/15/17 18:24 08/15/17 22:02 08/16/17 01:29 Bedside Glucose 161mg/dL (70-220) 149mg/dL (70-220) 131mg/dL (70-220) 134mg/dL (70-220) Test 08/16/17 06:02 08/16/17 08:21 08/16/17 12:09 08/16/17 17:21 Bedside Glucose 180mg/dL (70-220) 232mg/dL (70-220) H 191mg/dL (70-220) 46mg/dL (70-220) *L Test 08/16/17 17:37 08/16/17 17:57 08/16/17 20:35 08/17/17 00:57 Bedside Glucose 135mg/dL (70-220) 119mg/dL (70-220) 95mg/dL (70-220) 91mg/dL (70-220) Test 08/17/17 05:31 08/17/17 09:04 08/17/17 13:00 08/17/17 19:00 Bedside Glucose 131mg/dL (70-220) 185mg/dL (70-220) 184mg/dL (70-220) 140mg/dL (70-220) Test 08/17/17 20:55 08/18/17 01:51 08/18/17 06:17 08/18/17 08:38 Bedside Glucose 133mg/dL (70-220) 215mg/dL (70-220) 156mg/dL (70-220) 172mg/dL (70-220) Results Result Diagram: 08/16/17 0636 08/16/17 0636 Results 24 hrs Laboratory Tests Test 08/17/17 13:00 08/17/17 19:00 08/17/17 20:55 08/18/17 01:51 Bedside Glucose 184 140 133 215 Test 08/18/17 06:17 08/18/17 08:38 Bedside Glucose 156 172 Medications Medications Current Medications Acetaminophen (Tylenol Tab) 650 mg Q4H PRN GTB MILD PAIN LEVEL 1-3 Last administered on 08/14/17 20:59; Admin Dose 650 MG; Start 08/10/17 at 16:00 Eye Lubricant (Akwa Oint) 1 applic HS BOTH EYES Last administered on 08/17/17 20:47; Admin Dose 1 APPLIC; Start 08/10/17 at 21:00 Ascorbic Acid (Vitamin C) 500 mg TID GTB Last administered on 08/18/17 08:40; Admin Dose 500 MG; Start 08/10/17 at 21:00 Atorvastatin Calcium (Lipitor) 40 mg QHS GTB Last administered on 08/17/17 20: 47; Admin Dose 40 MG; Start 08/10/17 at 21:00 Bisacodyl (Dulcolax Supp) 10 mg DAILY PRN DC PRN; Start 08/10/17 at 16:00 Docusate Sodium (Colace Liquid Cup) 200 mg QHS GTB Last administered on 20:47; Admin Dose 200 MG; Start 08/10/17 at 21:00 Furosemide (Lasix) 20 mg DAILY GTB Last administered on 08/18/17 08:40; Admin Dose 20 MG; Start 08/11/17 at 09:00 Levetiracetam (Keppra Liquid) 500 mg BID GTB Last administered on 08/18/17 08: 39; Admin Dose 500 MG; Start 08/10/17 at 21:00 Magnesium Hydroxide (Milk Of Mag) 30 ml QHS GTB Last administered on 08/17/17 20:50; Admin Dose 30 ML; Start 08/10/17 at 21:00 Magnesium Oxide (Mag-Ox 400) 400 mg TID GTB Last administered on 08/18/17 08: 39; Admin Dose 400 MG; Start 08/10/17 at 21:00 Ondansetron HCl (Zofran Tab) 4 mg Q6H PRN GTB NAUSEA AND/OR VOMITING; Start 08/10/17 at 16:00 Sodium Biphosphate/ Sodium Phosphate (Fleet Enema) 133 ml Q24H PRN DC CONSTIPATION; Start 08/10/17 at 17:00 Tramadol HCl (Ultram) 50 mg BID GTB Last administered on 08/18/17 08:39; Admin Dose 50 MG; Start 08/10/17 at 21:00 Ferrous Sulfate (Feosol Liquid Cup) 300 mg BID GTB Last administered on 08:39; Admin Dose 300 MG; Start 08/10/17 at 21:00 Multivitamins Therapeutic (Theragran) 1 tab DAILY GTB Last administered on 08/18 08:39; Admin Dose 1 TAB; Start 08/11/17 at 09:00 Lansoprazole (Prevacid) 30 mg DAILY@06 GTB Last administered on 08/18/17 06:24 ; Admin Dose 30 MG; Start 08/11/17 at 06:00 Diltiazem HCl (Cardizem) 60 mg Q8 GTB Last administered on 08/18/17 06:24; Admin Dose 60 MG; Start 08/10/17 at 22:00 Miscellaneous Information 1 ea NOTE XX ; Start 08/10/17 at 16:30 Glucose (Glutose) 15 gm Q15M PRN PO DECREASED GLUCOSE; Start 08/10/17 at 16:30 Glucose (Glutose) 22.5 gm Q15M PRN PO DECREASED GLUCOSE; Start 08/10/17 at 16:30 Dextrose (D50w Syringe) 25 ml Q15M PRN IV DECREASED GLUCOSE Last administered on 08/16/17 17:27; Admin Dose 25 ML; Start 08/10/17 at 16:30 Dextrose (D50w Syringe) 50 ml Q15M PRN IV DECREASED GLUCOSE Last administered on 08/12/17 21:56; Admin Dose 50 ML; Start 08/10/17 at 16:30 Glucagon (Glucagen) 1 mg Q15M PRN IM DECREASED GLUCOSE; Start 08/10/17 at 16:30 Glucose (Glutose) 15 gm Q15M PRN BUCCAL DECREASED GLUCOSE; Start 08/10/17 at 16: 30 Latanoprost (Xalatan) 1 drop HS BOTH EYES Last administered on 08/17/17 20:47 ; Admin Dose 1 DROP; Start 08/10/17 at 21:00 Diagnostic Test (Pha) (Accu-Chek) 1 ea 02 XX Last administered on 08/15/17 02: 07; Admin Dose 1 EA; Start 08/12/17 at 02:00 Insulin Aspart (Adult SC Insulin - Mild Algorithm)... Q4 SC Last administered on 08/18/17 08:44; Admin Dose 1 UNIT; Start 08/11/17 at 10:13 Sodium Chloride (1/2 NS) 1,000 ml @ 75 mls/hr [id number] IV Last administered on 08/18/17 06:27; Admin Dose 75 MLS/HR; Start 08/11/17 at 13:30 Metoprolol Tartrate (Lopressor) 25 mg BID GTB Last administered on 08/18/17 08 :40; Admin Dose 25 MG; Start 08/11/17 at 21:00 Sodium Hypochlorite 1 applic 1 applic BID IRR Last administered on 08/18/17 08 :42; Admin Dose 1 APPLIC; Start 08/11/17 at 21:00 Ceftriaxone Sodium 50 ml @ 100 mls/hr Q24H IVPB Last administered on 13:39; Admin Dose 100 MLS/HR; Start 08/12/17 at 13:30 Metronidazole (Flagyl 500 Mg (Pmx)) 100 ml @ 100 mls/hr Q8 IVPB Last administered on 08/18/17 06:24; Admin Dose 100 MLS/HR; Start 08/12/17 at 14:00 Enoxaparin Sodium 40 mg 40 mg DAILY SC Last administered on 08/18/17 08:45; Admin Dose 40 MG; Start 08/12/17 at 15:00 Daptomycin/Sodium Chloride (Cubicin/NS) 100 ml @ 200 mls/hr Q24H IVPB Last administered on 08/17/17 16:58; Admin Dose 200 MLS/HR; Start 08/14/17 at 16:30 Insulin Glargine (Lantus) 42 unit AM SC Last administered on 08/18/17 08:45; Admin Dose 42 UNIT; Start 08/15/17 at 09:00 Metoclopramide HCl (Reglan Liq) 10 mg Q8 GTB Last administered on 08/18/17 06: 24; Admin Dose 10 MG; Start 08/16/17 at 22:00 STEPHANIE NEIL MD Aug 18, 2017 11:38
--- NOTE | 2017-08-18 12:16 | PN ---
Date/Time of Note Date/Time of Note DATE: 08/18/17 TIME: 12:15 Assessment/Plan VTE Prophylaxis VTE Prophylaxis Intervention: other Lines/Catheters IV Catheter Type (from Nrsg): Peripheral IV Urinary Cath still in place: Yes Reason Cath still needed: skin wounds contaminated by urine Assessment/Plan Chief Complaint/Hosp Course -Sepsis secondary to UTI - Per ID consult --Infected decubitus ulcer- VRE positive - per SX Consult - plan for bed side debridement - UTI - Cont antibiotics - Persistent Hyperglycemia - Endocrinology consult- Dr Matthews notified - cont to monitor -Thrombocytosis - per Hematology consult- Dr Valdovinos - Anemia -Dysphagia- sp G tube placement - aspiration precautions - Epilepsy - seizure precautions - encephalopathy - CVA - CAD - Hypertension - Hx DVT - dementia - bipolar - schizophrenia - SCDs for DVT Prophylaxis.Will wait for Lovenox- Anticipating surgical intervention. Problems: Subjective 24 Hr Interval Summary Free Text/Dictation Patient has no complaints Exam/Review of Systems Vital Signs Vitals Vital Signs Date Time Temp Pulse Resp B/P Pulse Ox O2 Delivery O2 Flow Rate FiO2 08/18/17 11:18 97.9 79 20 122/61 98 08/18/17 08:00 Nasal Cannula 3.0 Intake and Output 08/17/17 08/17/17 08/18/17 15:00 23:00 07:00 Intake Total 1740 ml 1720 ml Output Total 2000 ml 650 ml Balance -260 ml 1070 ml Exam Constitutional: well developed Head: atraumatic, normocephalic Neck: supple Respiratory: diminished breath sounds Cardiovascular: regular rate and rhythm Gastrointestinal: non-tender, soft Extremities: normal pulses Results Result Diagram: 08/16/1736 08/16/17 0636 Results 24 hrs Laboratory Tests Test 08/17/17 13:00 08/17/17 19:00 08/17/17 20:55 08/18/17 01:51 Bedside Glucose 184 140 133 215 Test 08/18/17 06:17 08/18/17 08:38 Bedside Glucose 156 172 Medications Medications Current Medications Acetaminophen (Tylenol Tab) 650 mg Q4H PRN GTB MILD PAIN LEVEL 1-3 Last administered on 08/14/17t 20:59; Admin Dose 650 MG; Start 08/10/17 at 16:00 Eye Lubricant (Akwa Oint) 1 applic HS BOTH EYES Last administered on 08/17/17 20:47; Admin Dose 1 APPLIC; Start 08/10/17 at 21:00 Ascorbic Acid (Vitamin C) 500 mg TID GTB Last administered on 08/18/17 08:40; Admin Dose 500 MG; Start 08/10/17 at 21:00 Atorvastatin Calcium (Lipitor) 40 mg QHS GTB Last administered on 08/17/17 20: 47; Admin Dose 40 MG; Start 08/10/17 at 21:00 Bisacodyl (Dulcolax Supp) 10 mg DAILY PRN [place] PRN; Start 08/10/17 at 16:00 Docusate Sodium (Colace Liquid Cup) 200 mg QHS GTB Last administered on 20:47; Admin Dose 200 MG; Start 08/10/17 at 21:00 Furosemide (Lasix) 20 mg DAILY GTB Last administered on 08/18/17 08:40; Admin Dose 20 MG; Start 08/11/17 at 09:00 Levetiracetam (Keppra Liquid) 500 mg BID GTB Last administered on 08/18/17 08: 39; Admin Dose 500 MG; Start 08/10/17 at 21:00 Magnesium Hydroxide (Milk Of Mag) 30 ml QHS GTB Last administered on 08/17/17 20:50; Admin Dose 30 ML; Start 08/10/17 at 21:00 Magnesium Oxide (Mag-Ox 400) 400 mg TID GTB Last administered on 08/18/17 08: 39; Admin Dose 400 MG; Start 08/10/17 at 21:00 Ondansetron HCl (Zofran Tab) 4 mg Q6H PRN GTB NAUSEA AND/OR VOMITING; Start 08/10/17 at 16:00 Sodium Biphosphate/ Sodium Phosphate (Fleet Enema) 133 ml Q24H PRN [place] CONSTIPATION; Start 08/10/17 at 17:00 Tramadol HCl (Ultram) 50 mg BID GTB Last administered on 08/18/17 08:39; Admin Dose 50 MG; Start 08/10/17 at 21:00 Ferrous Sulfate (Feosol Liquid Cup) 300 mg BID GTB Last administered on 08:39; Admin Dose 300 MG; Start 08/10/17 at 21:00 Multivitamins Therapeutic (Theragran) 1 tab DAILY GTB Last administered on 08/18 08:39; Admin Dose 1 TAB; Start 08/11/17 at 09:00 Lansoprazole (Prevacid) 30 mg DAILY@06 GTB Last administered on 08/18/17 06:24 ; Admin Dose 30 MG; Start 08/11/17 at 06:00 Diltiazem HCl (Cardizem) 60 mg Q8 GTB Last administered on 08/18/17 06:24; Admin Dose 60 MG; Start 08/10/17 at 22:00 Miscellaneous Information 1 ea NOTE XX ; Start 08/10/17 at 16:30 Glucose (Glutose) 15 gm Q15M PRN PO DECREASED GLUCOSE; Start 08/10/17 at 16:30 Glucose (Glutose) 22.5 gm Q15M PRN PO DECREASED GLUCOSE; Start 08/10/17 at 16:30 Dextrose (D50w Syringe) 25 ml Q15M PRN IV DECREASED GLUCOSE Last administered on 08/16/17 17:27; Admin Dose 25 ML; Start 08/10/17 at 16:30 Dextrose (D50w Syringe) 50 ml Q15M PRN IV DECREASED GLUCOSE Last administered on 08/12/17 21:56; Admin Dose 50 ML; Start 08/10/17 at 16:30 Glucagon (Glucagen) 1 mg Q15M PRN IM DECREASED GLUCOSE; Start 08/10/17 at 16:30 Glucose (Glutose) 15 gm Q15M PRN BUCCAL DECREASED GLUCOSE; Start 08/10/17 at 16: 30 Latanoprost (Xalatan) 1 drop HS BOTH EYES Last administered on 08/17/17 20:47 ; Admin Dose 1 DROP; Start 08/10/17 at 21:00 Diagnostic Test (Pha) (Accu-Chek) 1 ea 02 XX Last administered on 08/15/17 02: 07; Admin Dose 1 EA; Start 08/12/17 at 02:00 Insulin Aspart (Adult SC Insulin - Mild Algorithm)... Q4 SC Last administered on 08/18/17 08:44; Admin Dose 1 UNIT; Start 08/11/17 at 10:13 Sodium Chloride (1/2 NS) 1,000 ml @ 75 mls/hr [id number] IV Last administered on 08/18/17 06:27; Admin Dose 75 MLS/HR; Start 08/11/17 at 13:30 Metoprolol Tartrate (Lopressor) 25 mg BID GTB Last administered on 08/18/17 08 :40; Admin Dose 25 MG; Start 08/11/17 at 21:00 Sodium Hypochlorite 1 applic 1 applic BID IRR Last administered on 08/18/17 08 :42; Admin Dose 1 APPLIC; Start 08/11/17 at 21:00 Ceftriaxone Sodium 50 ml @ 100 mls/hr Q24H IVPB Last administered on 13:39; Admin Dose 100 MLS/HR; Start 08/12/17 at 13:30 Metronidazole (Flagyl 500 Mg (Pmx)) 100 ml @ 100 mls/hr Q8 IVPB Last administered on 08/18/17 06:24; Admin Dose 100 MLS/HR; Start 08/12/17 at 14:00 Enoxaparin Sodium 40 mg 40 mg DAILY SC Last administered on 08/18/17 08:45; Admin Dose 40 MG; Start 08/12/17 at 15:00 Daptomycin/Sodium Chloride (Cubicin/NS) 100 ml @ 200 mls/hr Q24H IVPB Last administered on 08/17/17 16:58; Admin Dose 200 MLS/HR; Start 08/14/17 at 16:30 Insulin Glargine (Lantus) 42 unit AM SC Last administered on 08/18/17 08:45; Admin Dose 42 UNIT; Start 08/15/17 at 09:00 Metoclopramide HCl (Reglan Liq) 10 mg Q8 GTB Last administered on 08/18/17 06: 24; Admin Dose 10 MG; Start 08/16/17 at 22:00 VIVIENNE MONTILLA Aug 18, 2017 12:16
[2017-08-18] MEDS: CEFTRIAXONE 1 GM/NS 50 ML IVPB SCH (13:47)
--- NOTE | 2017-08-18 14:35 | PN ---
Date/Time of Note Date/Time of Note DATE: 08/18/17 TIME: 14:34 Assessment/Plan Lines/Catheters IV Catheter Type (from [facility]): Peripheral IV Shields in Place (from Nrs): Yes Assessment/Plan Chief Complaint/Hosp Course 1. Sacral wound stage IV with osteomyelitis: s/p debridement 08/14, cultures noted -debridement prn -local care with dakin's -iv abx per sensitivities -frequent turning and offloading -low airloss mattress -nutrition optimization -vitamin c/short term zinc 2. Vomiting with abdominal distention and ?sbo: KUB without evidence of obstruction; +bowel function: vomiting likely 2/2 rate of medication administration per nursing; imaging noted: no vomiting currently, tolerating tf -slow medication administration per gtube: use gravity -monitor 3. UTI: cultures noted -cath care -abx per sensitivities 4.Hypochromic anemia: no acute bleed noted -monitor and transfuse as needed -workup per medical team 5. Sepsis with Leukocytosis: likely 2/2 above: improving -as above 6. Thrombocytosis: 2/2 infection vs. other; improving -monitor and workup if persistent 7. Dysphagia with feeding per feeding tube -cont tf with aspiration precautions 8. DM/ Hyperglycemia: with episodes of hypoglycemia -blood sugar optimization 9. Elevated alk phos: 2/2 osteo vs. gi source (doubt): abd us noted -monitor 10. HTN: -medical optimization 11. hyponatremia- judicious fluids+/- fluid restriction 12. Hx. of bipolar disorder/schizophrenia -medical./psych management 13. History of epilepsy -sz precautions 14. Loose stools stool studies Thank you, Problems: Subjective 24 Hr Interval Summary WBC normalized. Tachycardia improved. No fevers, chills, myalgias overnight. No sob, congested cough, cp, palpitations. Tolerating tf +bowel function. Exam/Review of Systems Vital Signs Vitals Vital Signs Date Time Temp Pulse Resp B/P Pulse Ox O2 Delivery O2 Flow Rate FiO2 08/18/17 12:50 72 08/18/17 11:18 97.9 20 122/61 98 08/18/17 08:00 Nasal Cannula 3.0 Intake and Output 08/17/17 08/17/17 08/18/17 15:00 23:00 07:00 Intake Total 1740 ml 1720 ml Output Total 2000 ml 650 ml Balance -260 ml 1070 ml Exam Free Text/Dictation Constitutional: alert, oriented (to self), other (answers simple questions) Psych: nl mood/affect Head: atraumatic, normocephalic Eyes: nl lids, nl sclera ENMT: mucosa pink and moist Neck: non-tender, supple Respiratory: normal air movement Cardiovascular: regular rate and rhythm SR Gastrointestinal: bowel sounds, distended (min), non-tender, gtube, soft Genitourinary - Female: nl external genitalia Musculoskeletal: other (stiffness) Extremities: normal pulses, No edema Neurological: nl speech, No nl mental status (slow to respond), No nl strength Skin: other (multiple wounds, sacral ulcer packed with improved periwound erythema, min drainage) ble leg wounds Results Result Diagram: 08/16/17 0636 08/16/17 0636 OSIRIS GODOY MD Aug 18, 2017 14:35
--- NOTE | 2017-08-18 14:59 | CONS ---
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, MSSA, and VRE ; s/p debridement 08/14/2017 - Bacteremia due to CoNS - C diff colitis - Thrombocytosis - G-tube dependent - T2DM with BS uncontrolled - Hgb A1c 7.5% - H/o CVA - H/o tonic-clonic seizures - CAD - HTN - HLD - Dementia - Bipolar/schizophrenia - DVT - thalassemia - severe constipation - improved - 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 - h/o UTI d/t ESBL+E.Coli 12/03/2016 Recommendations: - continue Daptomycin (08/14/2017-); s/p Vanco - continue ceftriaxone (08/12/2017-) for proteus infection - continue IV metronidazole (08/12/2017-) for c-diff - trend WBC - consider DC docusate sodium - continue enteric contact isolation Dw Dr Pitt/staff Consultation Date/Type/Reason Admit Date/Time Aug 10, 2017 at 14:12 Initial Consult Date 08/11/17 Type of Consultation: Endocrinology Referring Provider: LUZMA HYMAN MD 24 HR Interval Summary Constitutional: requiring O2 Exam/Review of Systems Vital Signs Vitals Vital Signs Date Time Temp Pulse Resp B/P Pulse Ox O2 Delivery O2 Flow Rate FiO2 08/18/17 12:50 72 08/18/17 11:18 97.9 20 122/61 98 08/18/17 08:00 Nasal Cannula 3.0 Intake and Output 08/17/17 08/17/17 08/18/17 14:59 22:59 06:59 Intake Total 1740 ml 1720 ml Output Total 2000 ml 650 ml Balance -260 ml 1070 ml Exam Constitutional: alert Respiratory: clear to auscultation, diminished breath sounds Cardiovascular: nl pulses, regular rate and rhythm Gastrointestinal: non-tender, soft Musculoskeletal: nl extremities to inspection Extremities: normal pulses Neurological: confused, nl speech Results Result Diagram: 08/16/17 0636 08/16/17 0636 Results 24 hrs Laboratory Tests Test 08/17/17 19:00 08/17/17 20:55 08/18/17 01:51 08/18/17 06:17 Bedside Glucose 140 133 215 156 Test 08/18/17 08:38 08/18/17 12:23 Bedside Glucose 172 199 Medications Medications Current Medications Acetaminophen (Tylenol Tab) 650 mg Q4H PRN GTB MILD PAIN LEVEL 1-3 Last administered on 08/14/17 20:59; Admin Dose 650 MG; Start 08/10/17 at 16:00 Eye Lubricant (Akwa Oint) 1 applic HS BOTH EYES Last administered on 08/17/17 20:47; Admin Dose 1 APPLIC; Start 08/10/17 at 21:00 Ascorbic Acid (Vitamin C) 500 mg TID GTB Last administered on 08/18/17 12:32; Admin Dose 500 MG; Start 08/10/17 at 21:00 Atorvastatin Calcium (Lipitor) 40 mg QHS GTB Last administered on 08/17/17 20: 47; Admin Dose 40 MG; Start 08/10/17 at 21:00 Bisacodyl (Dulcolax Supp) 10 mg DAILY PRN [place] PRN; Start 08/10/17 at 16:00 Docusate Sodium (Colace Liquid Cup) 200 mg QHS GTB Last administered on 20:47; Admin Dose 200 MG; Start 08/10/17 at 21:00 Furosemide (Lasix) 20 mg DAILY GTB Last administered on 08/18/17 08:40; Admin Dose 20 MG; Start 08/11/17 at 09:00 Levetiracetam (Keppra Liquid) 500 mg BID GTB Last administered on 08/18/17 08: 39; Admin Dose 500 MG; Start 08/10/17 at 21:00 Magnesium Hydroxide (Milk Of Mag) 30 ml QHS GTB Last administered on 08/17/17 20:50; Admin Dose 30 ML; Start 08/10/17 at 21:00 Magnesium Oxide (Mag-Ox 400) 400 mg TID GTB Last administered on 08/18/17 12: 32; Admin Dose 400 MG; Start 08/10/17 at 21:00 Ondansetron HCl (Zofran Tab) 4 mg Q6H PRN GTB NAUSEA AND/OR VOMITING; Start 08/10/17 at 16:00 Sodium Biphosphate/ Sodium Phosphate (Fleet Enema) 133 ml Q24H PRN [place] CONSTIPATION; Start 08/10/17 at 17:00 Tramadol HCl (Ultram) 50 mg BID GTB Last administered on 08/18/17 08:39; Admin Dose 50 MG; Start 08/10/17 at 21:00 Ferrous Sulfate (Feosol Liquid Cup) 300 mg BID GTB Last administered on 08:39; Admin Dose 300 MG; Start 08/10/17 at 21:00 Multivitamins Therapeutic (Theragran) 1 tab DAILY GTB Last administered on 08/18 08:39; Admin Dose 1 TAB; Start 08/11/17 at 09:00 Lansoprazole (Prevacid) 30 mg DAILY@06 GTB Last administered on 08/18/17 06:24 ; Admin Dose 30 MG; Start 08/11/17 at 06:00 Diltiazem HCl (Cardizem) 60 mg Q8 GTB Last administered on 08/18/17 13:49; Admin Dose 60 MG; Start 08/10/17 at 22:00 Miscellaneous Information 1 ea NOTE XX ; Start 08/10/17 at 16:30 Glucose (Glutose) 15 gm Q15M PRN PO DECREASED GLUCOSE; Start 08/10/17 at 16:30 Glucose (Glutose) 22.5 gm Q15M PRN PO DECREASED GLUCOSE; Start 08/10/17 at 16:30 Dextrose (D50w Syringe) 25 ml Q15M PRN IV DECREASED GLUCOSE Last administered on 08/16/17 17:27; Admin Dose 25 ML; Start 08/10/17 at 16:30 Dextrose (D50w Syringe) 50 ml Q15M PRN IV DECREASED GLUCOSE Last administered on 08/12/17 21:56; Admin Dose 50 ML; Start 08/10/17 at 16:30 Glucagon (Glucagen) 1 mg Q15M PRN IM DECREASED GLUCOSE; Start 08/10/17 at 16:30 Glucose (Glutose) 15 gm Q15M PRN BUCCAL DECREASED GLUCOSE; Start 08/10/17 at 16: 30 Latanoprost (Xalatan) 1 drop HS BOTH EYES Last administered on 08/17/17 20:47 ; Admin Dose 1 DROP; Start 08/10/17 at 21:00 Diagnostic Test (Pha) (Accu-Chek) 1 ea 02 XX Last administered on 08/15/17 02: 07; Admin Dose 1 EA; Start 08/12/17 at 02:00 Insulin Aspart (Adult SC Insulin - Mild Algorithm)... Q4 SC Last administered on 08/18/17 12:28; Admin Dose 2 UNIT; Start 08/11/17 at 10:13 Sodium Chloride (1/2 NS) 1,000 ml @ 75 mls/hr [id number] IV Last administered on 08/18/17 06:27; Admin Dose 75 MLS/HR; Start 08/11/17 at 13:30 Metoprolol Tartrate (Lopressor) 25 mg BID GTB Last administered on 08/18/17 08 :40; Admin Dose 25 MG; Start 08/11/17 at 21:00 Sodium Hypochlorite 1 applic 1 applic BID IRR Last administered on 08/18/17 08 :42; Admin Dose 1 APPLIC; Start 08/11/17 at 21:00 Ceftriaxone Sodium 50 ml @ 100 mls/hr Q24H IVPB Last administered on 13:47; Admin Dose 100 MLS/HR; Start 08/12/17 at 13:30 Metronidazole (Flagyl 500 Mg (Pmx)) 100 ml @ 100 mls/hr Q8 IVPB Last administered on 08/18/17 13:49; Admin Dose 100 MLS/HR; Start 08/12/17 at 14:00 Enoxaparin Sodium 40 mg 40 mg DAILY SC Last administered on 08/18/17 08:45; Admin Dose 40 MG; Start 08/12/17 at 15:00 Daptomycin/Sodium Chloride (Cubicin/NS) 100 ml @ 200 mls/hr Q24H IVPB Last administered on 08/17/17 16:58; Admin Dose 200 MLS/HR; Start 08/14/17 at 16:30 Insulin Glargine (Lantus) 42 unit AM SC Last administered on 08/18/17 08:45; Admin Dose 42 UNIT; Start 08/15/17 at 09:00 Metoclopramide HCl (Reglan Liq) 10 mg Q8 GTB Last administered on 08/18/17 13: 48; Admin Dose 10 MG; Start 08/16/17 at 22:00 MICHAEL COLINDRES Aug 18, 2017 14:59
[2017-08-18] MEDS: DAPTOMYCIN IVPB SCH (17:32)
[2017-08-18] MEDS: SOD CHLORIDE 0.9% IVPB SCH (17:32)
[2017-08-18] MEDS: OCULAR LUBRICANT 3.5 GM OPH OINT BOTH EYES SCH (21:20)
[2017-08-18] MEDS: LATANOPROST 0.005% 2.5 ML OPH BOTH EYES SCH (21:20)
[2017-08-18] MEDS: DOCUSATE SODIUM 10 MG/ML (10ML CUP) GTB SCH (21:20)
[2017-08-18] MEDS: ATORVASTATIN 40 MG TAB GTB SCH (21:20)
[2017-08-18] MEDS: MAGNESIUM HYDROXIDE 30ML CUP GTB SCH (21:22)
[2017-08-19] VITALS (11 sets, daily range): BP systolic 112–142; BP diastolic 56–64; PULSE 76–100; RESP 17–21
[2017-08-19] MEDS: metroNIDAZOLE 500 MG/NS (PMX) 100 ML IVPB SCH ×3 (06:25→22:28)
[2017-08-19] MEDS: METOCLOPRAMIDE (1 MG/ML) 10 ML CUP GTB SCH ×3 (06:25→22:27)
[2017-08-19] MEDS: DILTIAZEM 60 MG TAB GTB SCH ×3 (06:26→22:32)
[2017-08-19] MEDS: LANSOPRAZOLE 30 MG CAP GTB SCH (06:26)
[2017-08-19] MEDS: INSULIN ASPART [NOVOLOG] 3 ML PEN SC SCH ×5 (06:28→22:46)
[2017-08-19] MEDS: SOD CHLORIDE 0.45% 1,000 ML IV SCH ×2 (08:10→17:24)
[2017-08-19] MEDS: FERROUS SULFATE 60 MG/ML 5ML CUP GTB SCH ×2 (09:10→22:27)
[2017-08-19] MEDS: LEVETIRACETAM (100 MG/ML) 5ML CUP GTB SCH ×2 (09:11→22:27)
[2017-08-19] MEDS: FUROSEMIDE 20 MG TAB GTB SCH (09:13)
[2017-08-19] MEDS: traMADol 50 MG TAB GTB SCH ×2 (09:14→22:28)
[2017-08-19] MEDS: MULTIVITAMINS THERAPEUTIC TAB GTB SCH (09:15)
[2017-08-19] MEDS: METOPROLOL 25 MG TAB GTB SCH ×2 (09:15→22:31)
[2017-08-19] MEDS: ASCORBIC ACID 500 MG TAB GTB SCH ×3 (09:15→22:28)
[2017-08-19] MEDS: MAGNESIUM OXIDE 400 MG TAB GTB SCH ×3 (09:20→22:28)
[2017-08-19] MEDS: SODIUM HYPOCHLORITE 0.125% 473 ML BTL IRR SCH ×2 (09:22→22:32)
[2017-08-19] MEDS: ENOXAPARIN 40 MG/0.4 ML SYG SC SCH (09:40)
[2017-08-19] MEDS: INSULIN GLARGINE [LANtus] 3 ML PEN SC SCH (09:52)
--- NOTE | 2017-08-19 09:56 | PN ---
Date/Time of Note Date/Time of Note DATE: 08/19/17 TIME: 09:47 Assessment/Plan Lines/Catheters IV Catheter Type (from [facility], [place]): Peripheral IV Shields in Place (from [facility], [place]): Yes Assessment/Plan Chief Complaint/Hosp Course 1. Sacral wound stage IV with osteomyelitis: s/p debridement 08/14, cultures noted -local care with dakin's -iv abx per sensitivities -frequent turning and offloading -low airloss mattress -nutrition optimization -vitamin c/short term zinc -debridement prn 2. Vomiting with abdominal distention and ?sbo: KUB without evidence of obstruction; +bowel function: vomiting likely 2/2 rate of medication administration per nursing; imaging noted: resolved, tolerating tf -slow medication administration per gtube: use gravity -monitor 3. UTI: cultures noted -cath care -abx per sensitivities 4.Hypochromic anemia: no acute bleed noted -monitor and transfuse as needed -workup per medical team 5. Sepsis with Leukocytosis: likely 2/2 above: resolved -as above 6. Thrombocytosis: 2/2 infection vs. other; improving -monitor and workup if persistent 7. Dysphagia with feeding per feeding tube -cont tf with aspiration precautions 8. DM/ Hyperglycemia: -blood sugar optimization 9. Elevated alk phos: 2/2 osteo vs. gi source (doubt): abd us noted -monitor 10. HTN: -medical optimization 11. hyponatremia- judicious fluids+/- fluid restriction 12. Hx. of bipolar disorder/schizophrenia -medical./psych management 13. History of epilepsy -sz precautions 14. Loose stools: +cdiff -abx Thank you. Patient seen and examined in collaboration with Dr. Eric Tineo. Problems: Subjective 24 Hr Interval Summary Feels well. Conversant. WBC normalized. No fevers, chills. sob, congested cough , cp, palpitations, no excessive drainage, dysrhythmias. Tolerating tf with + bowel function. Exam/Review of Systems Vital Signs Vitals Vital Signs Date Time Temp Pulse Resp B/P Pulse Ox O2 Delivery O2 Flow Rate FiO2 08/19/17 08:52 93 08/19/17 07:05 98.1 20 136/63 98 08/18/17 08:00 Nasal Cannula 3.0 Intake and Output 08/18/17 08/18/17 08/19/17 15:00 23:00 07:00 Intake Total 1860 ml 1620 ml Output Total 1700 ml 2000 ml Balance 160 ml -380 ml Exam Free Text/Dictation Constitutional: alert, oriented (to self), other (answers simple questions) Psych: nl mood/affectm, pleasant Head: atraumatic, normocephalic Eyes: nl lids, nl sclera ENMT: mucosa pink and moist Neck: non-tender, supple Respiratory: normal air movement Cardiovascular: regular rate and rhythm SR Gastrointestinal: bowel sounds, nondistended, non-tender, gtube, soft Genitourinary - Female: nl external genitalia Musculoskeletal: other (stiffness) Extremities: normal pulses, No edema Neurological: nl speech, No nl mental status (slow to respond), No nl strength Skin: other (multiple wounds, sacral ulcer packed with improved periwound erythema, nonmalodorous,. min drainage) ble leg wounds Results Result Diagram: 08/16/17 0636 08/16/17 0636 SOREN LISA NP Aug 19, 2017 09:56
[2017-08-19 10:14] LABS: CREATININE 0.48 mg/dl (0.44-1.00)
--- NOTE | 2017-08-19 11:44 | CONS ---
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, MSSA, and VRE ; s/p debridement 08/14/2017 - Bacteremia due to CoNS - C diff colitis - Thrombocytosis - G-tube dependent - T2DM with BS uncontrolled - Hgb A1c 7.5% - H/o CVA - H/o tonic-clonic seizures - CAD - HTN - HLD - Dementia - Bipolar/schizophrenia - DVT - thalassemia - severe constipation - improved - 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 - h/o UTI d/t ESBL+E.Coli 12/03/2016 Recommendations: - 6 weeks of abx for om - continue Daptomycin (08/14/2017-); s/p Vanco - continue ceftriaxone (08/12/2017-) for proteus infection - continue IV metronidazole (08/12/2017-) for c-diff - check CK total Problems: Consultation Date/Type/Reason Admit Date/Time Aug 10, 2017 at 14:12 Type of Consultation: id Referring Provider: LUZMA HYMAN MD Exam/Review of Systems Vital Signs Vitals Vital Signs Date Time Temp Pulse Resp B/P Pulse Ox O2 Delivery O2 Flow Rate FiO2 08/19/17 11:13 98.3 92 17 135/60 95 08/18/17 08:00 Nasal Cannula 3.0 Intake and Output 08/18/17 08/18/17 08/19/17 15:00 23:00 07:00 Intake Total 1860 ml 1620 ml Output Total 1700 ml 2000 ml Balance 160 ml -380 ml Exam Constitutional: non-verbal Psych: no complaints Head: atraumatic, normocephalic Eyes: EOMI Respiratory: clear to auscultation Cardiovascular: regular rate and rhythm Gastrointestinal: nl liver, spleen, non-tender, soft Neurological: [employer] PILOT II-XII intact, nl mental status, nl speech, nl strength Results Result Diagram: 08/16/17 0636 08/19/17 0928 Results 24 hrs Laboratory Tests Test 08/18/17 12:23 08/18/17 17:26 08/18/17 21:18 08/18/17 23:35 Bedside Glucose 199 165 182 172 Test 08/19/17 06:18 08/19/17 09:05 08/19/17 09:28 Bedside Glucose 208 241 H Blood Urea Nitrogen 17 Creatinine 0.48 Medications Medications Current Medications Acetaminophen (Tylenol Tab) 650 mg Q4H PRN GTB MILD PAIN LEVEL 1-3 Last administered on 08/14/17 20:59; Admin Dose 650 MG; Start 08/10/17 at 16:00 Eye Lubricant (Akwa Oint) 1 applic HS BOTH EYES Last administered on 08/18/17 21:20; Admin Dose 1 APPLIC; Start 08/10/17 at 21:00 Ascorbic Acid (Vitamin C) 500 mg TID GTB Last administered on 08/19/17 09:15; Admin Dose 500 MG; Start 08/10/17 at 21:00 Atorvastatin Calcium (Lipitor) 40 mg QHS GTB Last administered on 08/18/17 21: 20; Admin Dose 40 MG; Start 08/10/17 at 21:00 Bisacodyl (Dulcolax Supp) 10 mg DAILY PRN [place] PRN; Start 08/10/17 at 16:00 Docusate Sodium (Colace Liquid Cup) 200 mg QHS GTB Last administered on 21:20; Admin Dose 200 MG; Start 08/10/17 at 21:00 Furosemide (Lasix) 20 mg DAILY GTB Last administered on 08/19/17 09:13; Admin Dose 20 MG; Start 08/11/17 at 09:00 Levetiracetam (Keppra Liquid) 500 mg BID GTB Last administered on 08/19/17 09: 11; Admin Dose 500 MG; Start 08/10/17 at 21:00 Magnesium Hydroxide (Milk Of Mag) 30 ml QHS GTB Last administered on 08/18/17 21:22; Admin Dose 30 ML; Start 08/10/17 at 21:00 Magnesium Oxide (Mag-Ox 400) 400 mg TID GTB Last administered on 08/19/17 09: 20; Admin Dose 400 MG; Start 08/10/17 at 21:00 Ondansetron HCl (Zofran Tab) 4 mg Q6H PRN GTB NAUSEA AND/OR VOMITING; Start 08/10/17 at 16:00 Sodium Biphosphate/ Sodium Phosphate (Fleet Enema) 133 ml Q24H PRN [place] CONSTIPATION; Start 08/10/17 at 17:00 Tramadol HCl (Ultram) 50 mg BID GTB Last administered on 08/19/17 09:14; Admin Dose 50 MG; Start 08/10/17 at 21:00 Ferrous Sulfate (Feosol Liquid Cup) 300 mg BID GTB Last administered on 09:10; Admin Dose 300 MG; Start 08/10/17 at 21:00 Multivitamins Therapeutic (Theragran) 1 tab DAILY GTB Last administered on 08/19 09:15; Admin Dose 1 TAB; Start 08/11/17 at 09:00 Lansoprazole (Prevacid) 30 mg DAILY@06 GTB Last administered on 08/19/17 06:26 ; Admin Dose 30 MG; Start 08/11/17 at 06:00 Diltiazem HCl (Cardizem) 60 mg Q8 GTB Last administered on 08/19/17 06:26; Admin Dose 60 MG; Start 08/10/17 at 22:00 Miscellaneous Information 1 ea NOTE XX ; Start 08/10/17 at 16:30 Glucose (Glutose) 15 gm Q15M PRN PO DECREASED GLUCOSE; Start 08/10/17 at 16:30 Glucose (Glutose) 22.5 gm Q15M PRN PO DECREASED GLUCOSE; Start 08/10/17 at 16:30 Dextrose (D50w Syringe) 25 ml Q15M PRN IV DECREASED GLUCOSE Last administered on 08/16/17 17:27; Admin Dose 25 ML; Start 08/10/17 at 16:30 Dextrose (D50w Syringe) 50 ml Q15M PRN IV DECREASED GLUCOSE Last administered on 08/12/17 21:56; Admin Dose 50 ML; Start 08/10/17 at 16:30 Glucagon (Glucagen) 1 mg Q15M PRN IM DECREASED GLUCOSE; Start 08/10/17 at 16:30 Glucose (Glutose) 15 gm Q15M PRN BUCCAL DECREASED GLUCOSE; Start 08/10/17 at 16: 30 Latanoprost (Xalatan) 1 drop HS BOTH EYES Last administered on 08/18/17 21:20 ; Admin Dose 1 DROP; Start 08/10/17 at 21:00 Diagnostic Test (Pha) (Accu-Chek) 1 ea 02 XX Last administered on 08/15/17 02: 07; Admin Dose 1 EA; Start 08/12/17 at 02:00 Insulin Aspart (Adult SC Insulin - Mild Algorithm)... Q4 SC Last administered on 08/19/17 09:40; Admin Dose 3 UNIT; Start 08/11/17 at 10:13 Sodium Chloride (1/2 NS) 1,000 ml @ 75 mls/hr [id number] IV Last administered on 08/18/17 06:27; Admin Dose 75 MLS/HR; Start 08/11/17 at 13:30 Metoprolol Tartrate (Lopressor) 25 mg BID GTB Last administered on 08/19/17 09 :15; Admin Dose 25 MG; Start 08/11/17 at 21:00 Sodium Hypochlorite 1 applic 1 applic BID IRR Last administered on 08/19/17 09 :22; Admin Dose 1 APPLIC; Start 08/11/17 at 21:00 Ceftriaxone Sodium 50 ml @ 100 mls/hr Q24H IVPB Last administered on 13:47; Admin Dose 100 MLS/HR; Start 08/12/17 at 13:30 Metronidazole (Flagyl 500 Mg (Pmx)) 100 ml @ 100 mls/hr Q8 IVPB Last administered on 08/19/17 06:25; Admin Dose 100 MLS/HR; Start 08/12/17 at 14:00 Enoxaparin Sodium 40 mg 40 mg DAILY SC Last administered on 08/19/17 09:40; Admin Dose 40 MG; Start 08/12/17 at 15:00 Daptomycin/Sodium Chloride (Cubicin/NS) 100 ml @ 200 mls/hr Q24H IVPB Last administered on 08/18/17 17:32; Admin Dose 200 MLS/HR; Start 08/14/17 at 16:30 Insulin Glargine (Lantus) 42 unit AM SC Last administered on 08/19/17 09:52; Admin Dose 42 UNIT; Start 08/15/17 at 09:00 Metoclopramide HCl (Reglan Liq) 10 mg Q8 GTB Last administered on 08/19/17t 06: 25; Admin Dose 10 MG; Start 08/16/17 at 22:00 BENITO THOMAS MD Aug 19, 2017 11:44
[2017-08-19] MEDS: CEFTRIAXONE 1 GM/NS 50 ML IVPB SCH (13:43)
[2017-08-19] MEDS: DAPTOMYCIN IVPB SCH (17:16)
[2017-08-19] MEDS: SOD CHLORIDE 0.9% IVPB SCH (17:16)
--- NOTE | 2017-08-19 17:17 | PN ---
Date/Time of Note Date/Time of Note DATE: 08/19/17 TIME: 17:08 Assessment/Plan VTE Prophylaxis VTE Prophylaxis Intervention: SCD's Lines/Catheters [facility] Peripheral IV Urinary Cath still in place: Yes Reason Cath still needed: urinary retention Assessment/Plan Chief Complaint/Hosp Course Patient is awake alert, afebrile. ASSESSMENT AND PLAN: - Sepsis due to UTI, infected decubitus ulcer and bacteremia, resolving. Continue antibiotics per ID. Dr. 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 Continue Keppra. - Dysphagia with percutaneous endoscopic gastrostomy. Continue G-tube feeding , aspiration precautions. - Diabetes mellitus type 2. Continue Lantus and NovoLog. - Dyslipidemia. Continue statins. - Schizophrenia and bipolar disorder. Further recommendations based on clinical course. Plan of care was discussed with Dr. Aly. Problems: Exam/Review of Systems Vital Signs Vitals Vital Signs Date Time Temp Pulse Resp B/P Pulse Ox O2 Delivery O2 Flow Rate FiO2 08/19/17 16:33 84 08/19/17 15:34 97.8 20 112/56 97 08/19/17 08:00 Nasal Cannula 3.0 Intake and Output 08/18/17 08/18/17 08/19/17 15:00 23:00 07:00 Intake Total 1860 ml 1620 ml Output Total 1700 ml 2000 ml Balance 160 ml -380 ml Exam Constitutional: alert Respiratory: normal air movement Cardiovascular: nl pulses Gastrointestinal: other (G-tube), soft Extremities: normal pulses Neurological: confused Skin: other (Sacral decubitus ulcer) Results Result Diagram: 08/16/17 0636 08/19/17 0928 Results 24 hrs Laboratory Tests Test 08/18/17 17:26 08/18/17 21:18 08/18/17 23:35 08/19/17 06:18 Bedside Glucose 165 182 172 208 Test 08/19/17 09:05 08/19/17 09:28 08/19/17 11:39 08/19/17 11:55 Bedside Glucose 241 H 259 H Blood Urea Nitrogen 17 Creatinine 0.48 Creatine Kinase 30 Test 08/19/17 13:39 Bedside Glucose 236 H Medications Medications Current Medications Acetaminophen (Tylenol Tab) 650 mg Q4H PRN GTB MILD PAIN LEVEL 1-3 Last administered on 08/14/17 20:59; Admin Dose 650 MG; Start 08/10/17 at 16:00 Eye Lubricant (Akwa Oint) 1 applic HS BOTH EYES Last administered on 08/18/17 21:20; Admin Dose 1 APPLIC; Start 08/10/17 at 21:00 Ascorbic Acid (Vitamin C) 500 mg TID GTB Last administered on 08/19/17 13:41; Admin Dose 500 MG; Start 08/10/17 at 21:00 Atorvastatin Calcium (Lipitor) 40 mg QHS GTB Last administered on 08/18/17 21: 20; Admin Dose 40 MG; Start 08/10/17 at 21:00 Bisacodyl (Dulcolax Supp) 10 mg DAILY PRN [place] PRN; Start 08/10/17 at 16:00 Docusate Sodium (Colace Liquid Cup) 200 mg QHS GTB Last administered on 21:20; Admin Dose 200 MG; Start 08/10/17 at 21:00 Furosemide (Lasix) 20 mg DAILY GTB Last administered on 08/19/17 09:13; Admin Dose 20 MG; Start 08/11/17 at 09:00 Levetiracetam (Keppra Liquid) 500 mg BID GTB Last administered on 08/19/17 09: 11; Admin Dose 500 MG; Start 08/10/17 at 21:00 Magnesium Hydroxide (Milk Of Mag) 30 ml QHS GTB Last administered on 08/18/17 21:22; Admin Dose 30 ML; Start 08/10/17 at 21:00 Magnesium Oxide (Mag-Ox 400) 400 mg TID GTB Last administered on 08/19/17 13: 42; Admin Dose 400 MG; Start 08/10/17 at 21:00 Ondansetron HCl (Zofran Tab) 4 mg Q6H PRN GTB NAUSEA AND/OR VOMITING; Start 08/10/17 at 16:00 Sodium Biphosphate/ Sodium Phosphate (Fleet Enema) 133 ml Q24H PRN [place] CONSTIPATION; Start 08/10/17 at 17:00 Tramadol HCl (Ultram) 50 mg BID GTB Last administered on 08/19/17 09:14; Admin Dose 50 MG; Start 08/10/17 at 21:00 Ferrous Sulfate (Feosol Liquid Cup) 300 mg BID GTB Last administered on 09:10; Admin Dose 300 MG; Start 08/10/17 at 21:00 Multivitamins Therapeutic (Theragran) 1 tab DAILY GTB Last administered on 08/19 09:15; Admin Dose 1 TAB; Start 08/11/17 at 09:00 Lansoprazole (Prevacid) 30 mg DAILY@06 GTB Last administered on 08/19/17 06:26 ; Admin Dose 30 MG; Start 08/11/17 at 06:00 Diltiazem HCl (Cardizem) 60 mg Q8 GTB Last administered on 08/19/17 13:41; Admin Dose 60 MG; Start 08/10/17 at 22:00 Miscellaneous Information 1 ea NOTE XX ; Start 08/10/17 at 16:30 Glucose (Glutose) 15 gm Q15M PRN PO DECREASED GLUCOSE; Start 08/10/17 at 16:30 Glucose (Glutose) 22.5 gm Q15M PRN PO DECREASED GLUCOSE; Start 08/10/17 at 16:30 Dextrose (D50w Syringe) 25 ml Q15M PRN IV DECREASED GLUCOSE Last administered on 08/16/17 17:27; Admin Dose 25 ML; Start 08/10/17 at 16:30 Dextrose (D50w Syringe) 50 ml Q15M PRN IV DECREASED GLUCOSE Last administered on 08/12/17 21:56; Admin Dose 50 ML; Start 08/10/17 at 16:30 Glucagon (Glucagen) 1 mg Q15M PRN IM DECREASED GLUCOSE; Start 08/10/17 at 16:30 Glucose (Glutose) 15 gm Q15M PRN BUCCAL DECREASED GLUCOSE; Start 08/10/17 at 16: 30 Latanoprost (Xalatan) 1 drop HS BOTH EYES Last administered on 08/18/17 21:20 ; Admin Dose 1 DROP; Start 08/10/17 at 21:00 Diagnostic Test (Pha) (Accu-Chek) 1 ea 02 XX Last administered on 08/15/17 02: 07; Admin Dose 1 EA; Start 08/12/17 at 02:00 Insulin Aspart (Adult SC Insulin - Mild Algorithm)... Q4 SC Last administered on 08/19/17 13:45; Admin Dose 3 UNIT; Start 08/11/17 at 10:13 Sodium Chloride (1/2 NS) 1,000 ml @ 75 mls/hr [id number] IV Last administered on 08/18/17 06:27; Admin Dose 75 MLS/HR; Start 08/11/17 at 13:30 Metoprolol Tartrate (Lopressor) 25 mg BID GTB Last administered on 08/19/17 09 :15; Admin Dose 25 MG; Start 08/11/17 at 21:00 Sodium Hypochlorite 1 applic 1 applic BID IRR Last administered on 08/19/17 09 :22; Admin Dose 1 APPLIC; Start 08/11/17 at 21:00 Ceftriaxone Sodium 50 ml @ 100 mls/hr Q24H IVPB Last administered on 13:43; Admin Dose 100 MLS/HR; Start 08/12/17 at 13:30 Metronidazole (Flagyl 500 Mg (Pmx)) 100 ml @ 100 mls/hr Q8 IVPB Last administered on 08/19/17 13:43; Admin Dose 100 MLS/HR; Start 08/12/17 at 14:00 Enoxaparin Sodium 40 mg 40 mg DAILY SC Last administered on 08/19/17 09:40; Admin Dose 40 MG; Start 08/12/17 at 15:00 Daptomycin/Sodium Chloride (Cubicin/NS) 100 ml @ 200 mls/hr Q24H IVPB Last administered on 08/18/17 17:32; Admin Dose 200 MLS/HR; Start 08/14/17 at 16:30 Insulin Glargine (Lantus) 42 unit AM SC Last administered on 08/19/17 09:52; Admin Dose 42 UNIT; Start 08/15/17 at 09:00 Metoclopramide HCl (Reglan Liq) 10 mg Q8 GTB Last administered on 08/19/17 13: 40; Admin Dose 10 MG; Start 08/16/17 at 22:00 DENA SALGUERO Aug 19, 2017 17:17
--- NOTE | 2017-08-19 17:28 | CONS ---
Date/Time of Note Date/Time of Note DATE: 08/19/17 TIME: 17:26 Assessment/Plan Assessment/Plan Problems: (1) Diabetes mellitus, type 2 Status: Chronic Comment: The current circumstances her sugars are drifting up. I will adjust the insulin but I am concerned this may represent some underlying source of inflammation in other words some type of an infectious process. As infectious disease is on the case I will request their assistance in making sure were not looking at a warning sign. Qualifiers: Diabetes mellitus complication status: with hyperglycemia Diabetes mellitus detention insulin use: without terminal operator use Qualified Code: E11.65 - Type 2 diabetes mellitus with hyperglycemia, without long-term current use of insulin Consultation Date/Type/Reason Admit Date/Time Aug 10, 2017 at 14:12 Initial Consult Date 08/11/17 Type of Consultation: Endocrinology Reason for Consultation Diabetes mellitus type 2 out of control and setting of sepsis Referring Provider: LUZMA HYMAN MD 24 HR Interval Summary Free Text/Dictation Patient without changes Subjective hx not possible: pt non-verbal Exam/Review of Systems Vital Signs Vitals Vital Signs Date Time Temp Pulse Resp B/P Pulse Ox O2 Delivery O2 Flow Rate FiO2 08/19/17 16:33 84 08/19/17 15:34 97.8 20 112/56 97 08/19/17 08:00 Nasal Cannula 3.0 Intake and Output 08/18/17 08/18/17 08/19/17 15:00 23:00 07:00 Intake Total 1860 ml 1620 ml Output Total 1700 ml 2000 ml Balance 160 ml -380 ml Results No changes in exam Result Diagram: 08/16/17 0636 08/19/17 0928 Results 24 hrs Laboratory Tests Test 08/18/17 21:18 08/18/17 23:35 08/19/17 06:18 08/19/17 09:05 Bedside Glucose 182 172 208 241 H Test 08/19/17 09:28 08/19/17 11:39 08/19/17 11:55 08/19/17 13:39 Blood Urea Nitrogen 17 Creatinine 0.48 Bedside Glucose 259 H 236 H Creatine Kinase 30 Medications Medications Current Medications Acetaminophen (Tylenol Tab) 650 mg Q4H PRN GTB MILD PAIN LEVEL 1-3 Last administered on 08/14/17t 20:59; Admin Dose 650 MG; Start 08/10/17 at 16:00 Eye Lubricant (Akwa Oint) 1 applic HS BOTH EYES Last administered on 08/18/17 21:20; Admin Dose 1 APPLIC; Start 08/10/17 at 21:00 Ascorbic Acid (Vitamin C) 500 mg TID GTB Last administered on 08/19/17 13:41; Admin Dose 500 MG; Start 08/10/17 at 21:00 Atorvastatin Calcium (Lipitor) 40 mg QHS GTB Last administered on 08/18/17 21: 20; Admin Dose 40 MG; Start 08/10/17 at 21:00 Bisacodyl (Dulcolax Supp) 10 mg DAILY PRN [place] PRN; Start 08/10/17 at 16:00 Docusate Sodium (Colace Liquid Cup) 200 mg QHS GTB Last administered on 21:20; Admin Dose 200 MG; Start 08/10/17 at 21:00 Furosemide (Lasix) 20 mg DAILY GTB Last administered on 08/19/17 09:13; Admin Dose 20 MG; Start 08/11/17 at 09:00 Levetiracetam (Keppra Liquid) 500 mg BID GTB Last administered on 08/19/17 09: 11; Admin Dose 500 MG; Start 08/10/17 at 21:00 Magnesium Hydroxide (Milk Of Mag) 30 ml QHS GTB Last administered on 08/18/17 21:22; Admin Dose 30 ML; Start 08/10/17 at 21:00 Magnesium Oxide (Mag-Ox 400) 400 mg TID GTB Last administered on 08/19/17 13: 42; Admin Dose 400 MG; Start 08/10/17 at 21:00 Ondansetron HCl (Zofran Tab) 4 mg Q6H PRN GTB NAUSEA AND/OR VOMITING; Start 08/10/17 at 16:00 Sodium Biphosphate/ Sodium Phosphate (Fleet Enema) 133 ml Q24H PRN [place] CONSTIPATION; Start 08/10/17 at 17:00 Tramadol HCl (Ultram) 50 mg BID GTB Last administered on 08/19/17 09:14; Admin Dose 50 MG; Start 08/10/17 at 21:00 Ferrous Sulfate (Feosol Liquid Cup) 300 mg BID GTB Last administered on 09:10; Admin Dose 300 MG; Start 08/10/17 at 21:00 Multivitamins Therapeutic (Theragran) 1 tab DAILY GTB Last administered on 08/19 09:15; Admin Dose 1 TAB; Start 08/11/17 at 09:00 Lansoprazole (Prevacid) 30 mg DAILY@06 GTB Last administered on 08/19/17 06:26 ; Admin Dose 30 MG; Start 08/11/17 at 06:00 Diltiazem HCl (Cardizem) 60 mg Q8 GTB Last administered on 08/19/17 13:41; Admin Dose 60 MG; Start 08/10/17 at 22:00 Miscellaneous Information 1 ea NOTE XX ; Start 08/10/17 at 16:30 Glucose (Glutose) 15 gm Q15M PRN PO DECREASED GLUCOSE; Start 08/10/17 at 16:30 Glucose (Glutose) 22.5 gm Q15M PRN PO DECREASED GLUCOSE; Start 08/10/17 at 16:30 Dextrose (D50w Syringe) 25 ml Q15M PRN IV DECREASED GLUCOSE Last administered on 08/16/17 17:27; Admin Dose 25 ML; Start 08/10/17 at 16:30 Dextrose (D50w Syringe) 50 ml Q15M PRN IV DECREASED GLUCOSE Last administered on 08/12/17 21:56; Admin Dose 50 ML; Start 08/10/17 at 16:30 Glucagon (Glucagen) 1 mg Q15M PRN IM DECREASED GLUCOSE; Start 08/10/17 at 16:30 Glucose (Glutose) 15 gm Q15M PRN BUCCAL DECREASED GLUCOSE; Start 08/10/17 at 16: 30 Latanoprost (Xalatan) 1 drop HS BOTH EYES Last administered on 08/18/17 21:20 ; Admin Dose 1 DROP; Start 08/10/17 at 21:00 Diagnostic Test (Pha) (Accu-Chek) 1 ea 02 XX Last administered on 08/15/17 02: 07; Admin Dose 1 EA; Start 08/12/17 at 02:00 Insulin Aspart (Adult SC Insulin - Mild Algorithm)... Q4 SC Last administered on 08/19/17 13:45; Admin Dose 3 UNIT; Start 08/11/17 at 10:13 Sodium Chloride (1/2 NS) 1,000 ml @ 75 mls/hr [id number] IV Last administered on 08/18/17 06:27; Admin Dose 75 MLS/HR; Start 08/11/17 at 13:30 Metoprolol Tartrate (Lopressor) 25 mg BID GTB Last administered on 08/19/17 09 :15; Admin Dose 25 MG; Start 08/11/17 at 21:00 Sodium Hypochlorite 1 applic 1 applic BID IRR Last administered on 08/19/17 09 :22; Admin Dose 1 APPLIC; Start 08/11/17 at 21:00 Ceftriaxone Sodium 50 ml @ 100 mls/hr Q24H IVPB Last administered on 13:43; Admin Dose 100 MLS/HR; Start 08/12/17 at 13:30 Metronidazole (Flagyl 500 Mg (Pmx)) 100 ml @ 100 mls/hr Q8 IVPB Last administered on 08/19/17 13:43; Admin Dose 100 MLS/HR; Start 08/12/17 at 14:00 Enoxaparin Sodium 40 mg 40 mg DAILY SC Last administered on 08/19/17 09:40; Admin Dose 40 MG; Start 08/12/17 at 15:00 Daptomycin/Sodium Chloride (Cubicin/NS) 100 ml @ 200 mls/hr Q24H IVPB Last administered on 08/19/17 17:16; Admin Dose 200 MLS/HR; Start 08/14/17 at 16:30 Metoclopramide HCl (Reglan Liq) 10 mg Q8 GTB Last administered on 08/19/17 13: 40; Admin Dose 10 MG; Start 08/16/17 at 22:00 Insulin Glargine (Lantus) 46 unit AM SC ; Start 08/20/17 at 09:00; Status JAKE PARKER MD Aug 19, 2017 17:28
[2017-08-19] MEDS: LINAGLIPTIN 5 MG TABLET G-TUBE SCH (18:02)
[2017-08-19] MEDS: MAGNESIUM HYDROXIDE 30ML CUP GTB SCH (21:00)
[2017-08-19] MEDS: OCULAR LUBRICANT 3.5 GM OPH OINT BOTH EYES SCH (22:26)
[2017-08-19] MEDS: LATANOPROST 0.005% 2.5 ML OPH BOTH EYES SCH (22:26)
[2017-08-19] MEDS: DOCUSATE SODIUM 10 MG/ML (10ML CUP) GTB SCH (22:27)
[2017-08-19] MEDS: ATORVASTATIN 40 MG TAB GTB SCH (22:28)
[2017-08-20] VITALS (13 sets, daily range): BP systolic 110–172; BP diastolic 53–80; PULSE 78–88; RESP 16–20
[2017-08-20] MEDS: INSULIN ASPART [NOVOLOG] 3 ML PEN SC SCH ×6 (01:00→21:00)
[2017-08-20] MEDS: ACCU-CHEK XX SCH (02:00)
[2017-08-20] MEDS: DILTIAZEM 60 MG TAB GTB SCH ×3 (06:14→21:23)
[2017-08-20] MEDS: LANSOPRAZOLE 30 MG CAP GTB SCH (06:14)
[2017-08-20] MEDS: METOCLOPRAMIDE (1 MG/ML) 10 ML CUP GTB SCH ×3 (06:14→21:22)
[2017-08-20] MEDS: metroNIDAZOLE 500 MG/NS (PMX) 100 ML IVPB SCH ×3 (06:14→21:23)
[2017-08-20 07:44] LABS: ABNORMAL IP MESSAGE 1; HEMATOCRIT 37.3 % (37.0-47.0); MEAN CORPUSCULAR HEMOGLOBIN 26.6 pg (29.0-33.0); MEAN CORPUSCULAR HGB CONC 29.5 g/dl (32.0-37.0); MEAN CORPUSCULAR VOLUME 90.3 fl (82.0-101.0); MEAN PLATELET VOLUME 11.3 fl (7.4-10.4); NUCLEATED RED BLOOD CELLS% 0.3 /100WBC (0.0-0.0); RED BLOOD COUNT 4.13 10^6/ul (4.20-5.40); RED CELL DISTRIBUTION WIDTH 18.7 % (11.5-14.5); WHITE BLOOD COUNT 7.8 10^3/ul (4.8-10.8)
[2017-08-20 07:49] LABS: PLATELET COUNT 901 10^3/UL (140-415)
[2017-08-20 07:50] LABS: POSITIVE DIFF @See below
[2017-08-20 08:08] LABS: CALCIUM 9.1 mg/dl (8.4-10.2); CREATININE 0.45 mg/dl (0.44-1.00); POTASSIUM 4.8 mmol/L (3.5-5.1)
[2017-08-20] MEDS ORDERED: INSULIN GLARGINE [LANtus] 3 ML PEN SC SCH (09:00)
[2017-08-20 09:42] LABS: ANISOCYTOSIS 1+ (0-0); BASOPHILS % (M) 3 % (0-2); EOSINOPHILS % (M) 4 % (0-7); ERYTHROBLAST% (NRBC) (M) 1 % (0-0); GIANT THROMBO% (M) 1 % (0-0); HYPOCHROMASIA 1+ (0-0); METAMYELOCYTES %M 1 % (0-0); MICROCYTOSIS 1+ (0-0); MONOCYTES % (M) 1 % (0-11); MYELOCYTES % (M) 6 % (0-0); PLATELET ESTIMATE INCREASED; POIKILOCYTOSIS 1+ (0-0); POLYCHROMASIA 3+ (0-0); REACTIVE LYMPHOCYTES% (M) 2 % (0-0)
[2017-08-20] MEDS: MAGNESIUM OXIDE 400 MG TAB GTB SCH ×3 (09:43→21:22)
[2017-08-20] MEDS: LEVETIRACETAM (100 MG/ML) 5ML CUP GTB SCH ×2 (09:43→21:22)
[2017-08-20] MEDS: FERROUS SULFATE 60 MG/ML 5ML CUP GTB SCH ×2 (09:43→21:22)
[2017-08-20] MEDS: ASCORBIC ACID 500 MG TAB GTB SCH ×3 (09:44→21:23)
[2017-08-20] MEDS: FUROSEMIDE 20 MG TAB GTB SCH (09:44)
[2017-08-20] MEDS: METOPROLOL 25 MG TAB GTB SCH ×2 (09:44→21:25)
[2017-08-20] MEDS: traMADol 50 MG TAB GTB SCH ×2 (09:45→21:29)
[2017-08-20] MEDS: MULTIVITAMINS THERAPEUTIC TAB GTB SCH (09:45)
[2017-08-20] MEDS: LINAGLIPTIN 5 MG TABLET G-TUBE SCH (09:45)
[2017-08-20] MEDS: ENOXAPARIN 40 MG/0.4 ML SYG SC SCH (09:47)
[2017-08-20] MEDS: SODIUM HYPOCHLORITE 0.125% 473 ML BTL IRR SCH ×2 (10:08→21:25)
[2017-08-20] MEDS: SOD CHLORIDE 0.45% 1,000 ML IV SCH ×2 (10:50→23:42)
--- NOTE | 2017-08-20 12:31 | PN ---
Date/Time of Note Date/Time of Note DATE: 08/20/17 TIME: 12:31 Assessment/Plan VTE Prophylaxis VTE Prophylaxis Intervention: SCD's Lines/Catheters IV Catheter Type (from [facility]): Peripheral IV Urinary Cath still in place: Yes Reason Cath still needed: urinary retention Assessment/Plan Chief Complaint/Hosp Course Problems: Assessment/Plan - Sepsis due to UTI, infected decubitus ulcer and bacteremia, resolving. Continue antibiotics per ID. Dr. 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 Continue Keppra. - Dysphagia with percutaneous endoscopic gastrostomy. Continue G-tube feeding , aspiration precautions. - Diabetes mellitus type 2. Continue Lantus and NovoLog. - Dyslipidemia. Continue statins. - Schizophrenia and bipolar disorder. Further recommendations based on clinical course. Plan of care was discussed with Dr. Aly. Exam/Review of Systems Vital Signs Vitals Vital Signs Date Time Temp Pulse Resp B/P Pulse Ox O2 Delivery O2 Flow Rate FiO2 08/20/17 11:35 98.2 83 18 124/59 99 08/20/17 02:39 3.0 08/20/17 00:00 Nasal Cannula Intake and Output 08/19/17 08/19/17 08/20/17 15:00 23:00 07:00 Intake Total 1960 ml 1710 ml Output Total 1400 ml 1250 ml Balance 560 ml 460 ml Exam Constitutional: alert Respiratory: normal air movement Cardiovascular: nl pulses Gastrointestinal: other (G-tube), soft Extremities: normal pulses Neurological: confused Skin: other (Sacral decubitus ulcer) Results Result Diagram: 08/20/17 0637 08/20/1737 Results 24 hrs Laboratory Tests Test 08/19/17 13:39 08/19/17 17:29 08/19/17 22:34 08/20/17 01:18 Bedside Glucose 236 H 207 153 134 Test 08/20/17 06:13 08/20/17 06:37 08/20/17 09:52 Bedside Glucose 194 292 H White Blood Count 7.8 Red Blood Count 4.13 #L Hemoglobin 11.0 #L Hematocrit 37.3 # Mean Corpuscular Volume 90.3 Mean Corpuscular Hemoglobin 26.6 L Mean Corpuscular Hemoglobin Concent 29.5 L Red Cell Distribution Width 18.7 H Platelet Count 901 #H Mean Platelet Volume 11.3 H Neutrophils % Segmented Neutrophils % (Manual) 59 Band Neutrophils % (Manual) 2 Lymphocytes % Lymphocytes % (Manual) 22 Reactive Lymphocytes % (Manual) 2 H Monocytes % Monocytes % (Manual) 1 Eosinophils % Eosinophils % (Manual) 4 Basophils % Basophils % (Manual) 3 H Metamyelocytes % (manual) 1 H Myelocytes % (Manual) 6 H Nucleated Red Blood Cells % 1 H Neutrophils # Neutrophils # (Manual) 4.6 Band Neutrophils # 0.1 Absolute Lymphocytes (Manual) 1.7 Lymphocytes # Reactive Lymphocytes # 0.1 H Monocytes # Absolute Monocytes (Manual) 0.0 L Eosinophils # Basophils # Basophils # (Manual) 0.2 H Metamyelocytes # 0.0 Myelocytes # 0.4 H Nucleated Red Blood Cells # Platelet Estimate INCREASED Giant Platelets 1 H Polychromasia 3+ Hypochromasia 1+ Poikilocytosis 1+ Anisocytosis 1+ Microcytosis 1+ Sodium Level 134 L Potassium Level 4.8 Chloride Level 98 Carbon Dioxide Level 29 Anion Gap 12 Blood Urea Nitrogen 18 Creatinine 0.45 Glucose Level 198 Calcium Level 9.1 Medications Medications Current Medications Acetaminophen (Tylenol Tab) 650 mg Q4H PRN GTB MILD PAIN LEVEL 1-3 Last administered on 08/14/17 20:59; Admin Dose 650 MG; Start 08/10/17 at 16:00 Eye Lubricant (Akwa Oint) 1 applic HS BOTH EYES Last administered on 08/19/17 22:26; Admin Dose 1 APPLIC; Start 08/10/17 at 21:00 Ascorbic Acid (Vitamin C) 500 mg TID GTB Last administered on 08/20/17 09:44; Admin Dose 500 MG; Start 08/10/17 at 21:00 Atorvastatin Calcium (Lipitor) 40 mg QHS GTB Last administered on 08/19/17 22: 28; Admin Dose 40 MG; Start 08/10/17 at 21:00 Bisacodyl (Dulcolax Supp) 10 mg DAILY PRN [place] PRN; Start 08/10/17 at 16:00 Docusate Sodium (Colace Liquid Cup) 200 mg QHS GTB Last administered on 22:27; Admin Dose 200 MG; Start 08/10/17 at 21:00 Furosemide (Lasix) 20 mg DAILY GTB Last administered on 08/20/17 09:44; Admin Dose 20 MG; Start 08/11/17 at 09:00 Levetiracetam (Keppra Liquid) 500 mg BID GTB Last administered on 08/20/17 09: 43; Admin Dose 500 MG; Start 08/10/17 at 21:00 Magnesium Hydroxide (Milk Of Mag) 30 ml QHS GTB Last administered on 08/18/17 21:22; Admin Dose 30 ML; Start 08/10/17 at 21:00 Magnesium Oxide (Mag-Ox 400) 400 mg TID GTB Last administered on 08/20/17 09: 43; Admin Dose 400 MG; Start 08/10/17 at 21:00 Ondansetron HCl (Zofran Tab) 4 mg Q6H PRN GTB NAUSEA AND/OR VOMITING; Start 08/10/17 at 16:00 Sodium Biphosphate/ Sodium Phosphate (Fleet Enema) 133 ml Q24H PRN [place] CONSTIPATION; Start 08/10/17 at 17:00 Tramadol HCl (Ultram) 50 mg BID GTB Last administered on 08/20/17 09:45; Admin Dose 50 MG; Start 08/10/17 at 21:00 Ferrous Sulfate (Feosol Liquid Cup) 300 mg BID GTB Last administered on 09:43; Admin Dose 300 MG; Start 08/10/17 at 21:00 Multivitamins Therapeutic (Theragran) 1 tab DAILY GTB Last administered on 08/20 09:45; Admin Dose 1 TAB; Start 08/11/17 at 09:00 Lansoprazole (Prevacid) 30 mg DAILY@06 GTB Last administered on 08/20/17 06:14 ; Admin Dose 30 MG; Start 08/11/17 at 06:00 Diltiazem HCl (Cardizem) 60 mg Q8 GTB Last administered on 08/20/17 06:14; Admin Dose 60 MG; Start 08/10/17 at 22:00 Miscellaneous Information 1 ea NOTE XX ; Start 08/10/17 at 16:30 Glucose (Glutose) 15 gm Q15M PRN PO DECREASED GLUCOSE; Start 08/10/17 at 16:30 Glucose (Glutose) 22.5 gm Q15M PRN PO DECREASED GLUCOSE; Start 08/10/17 at 16:30 Dextrose (D50w Syringe) 25 ml Q15M PRN IV DECREASED GLUCOSE Last administered on 08/16/17 17:27; Admin Dose 25 ML; Start 08/10/17 at 16:30 Dextrose (D50w Syringe) 50 ml Q15M PRN IV DECREASED GLUCOSE Last administered on 08/12/17 21:56; Admin Dose 50 ML; Start 08/10/17 at 16:30 Glucagon (Glucagen) 1 mg Q15M PRN IM DECREASED GLUCOSE; Start 08/10/17 at 16:30 Glucose (Glutose) 15 gm Q15M PRN BUCCAL DECREASED GLUCOSE; Start 08/10/17 at 16: 30 Latanoprost (Xalatan) 1 drop HS BOTH EYES Last administered on 08/19/17 22:26 ; Admin Dose 1 DROP; Start 08/10/17 at 21:00 Diagnostic Test (Pha) (Accu-Chek) 1 ea 02 XX Last administered on 08/15/17 02: 07; Admin Dose 1 EA; Start 08/12/17 at 02:00 Insulin Aspart (Adult SC Insulin - Mild Algorithm)... Q4 SC Last administered on 08/20/17 10:07; Admin Dose 4 UNIT; Start 08/11/17 at 10:13 Sodium Chloride (1/2 NS) 1,000 ml @ 75 mls/hr [id number] IV Last administered on 08/19/17 17:24; Admin Dose 75 MLS/HR; Start 08/11/17 at 13:30 Metoprolol Tartrate (Lopressor) 25 mg BID GTB Last administered on 08/20/17 09 :44; Admin Dose 25 MG; Start 08/11/17 at 21:00 Sodium Hypochlorite 1 applic 1 applic BID IRR Last administered on 08/20/17 10 :08; Admin Dose 1 APPLIC; Start 08/11/17 at 21:00 Ceftriaxone Sodium 50 ml @ 100 mls/hr Q24H IVPB Last administered on 13:43; Admin Dose 100 MLS/HR; Start 08/12/17 at 13:30 Metronidazole (Flagyl 500 Mg (Pmx)) 100 ml @ 100 mls/hr Q8 IVPB Last administered on 08/20/17 06:14; Admin Dose 100 MLS/HR; Start 08/12/17 at 14:00 Enoxaparin Sodium 40 mg 40 mg DAILY SC Last administered on 08/20/17 09:47; Admin Dose 40 MG; Start 08/12/17 at 15:00 Daptomycin/Sodium Chloride (Cubicin/NS) 100 ml @ 200 mls/hr Q24H IVPB Last administered on 08/19/17 17:16; Admin Dose 200 MLS/HR; Start 08/14/17 at 16:30 Metoclopramide HCl (Reglan Liq) 10 mg Q8 GTB Last administered on 08/20/17 06: 14; Admin Dose 10 MG; Start 08/16/17 at 22:00 Insulin Glargine (Lantus) 46 unit AM SC Last administered on 08/20/17 10:08; Admin Dose 46 UNIT; Start 08/20/17 at 09:00 Linagliptin (Tradjenta) 5 mg DAILY G-TUBE Last administered on 08/20/17 09:45 ; Admin Dose 5 MG; Start 08/19/17 at 17:30 DENA SALGUERO Aug 20, 2017 12:31
[2017-08-20] MEDS: CEFTRIAXONE 1 GM/NS 50 ML IVPB SCH (13:09)
--- NOTE | 2017-08-20 13:58 | CONS ---
Date/Time of Note Date/Time of Note DATE: 08/20/17 TIME: 13:54 Assessment/Plan Assessment/Plan Problems: (1) Diabetes mellitus, type 2 Status: Chronic Comment: Patient is showing higher sugars which has been been waxing and waning over the last couple days. I am going to adjust the Lantus to every 12 hours which would give us more latitude if she has to have her tube feedings turned off. Will increase the dosage and follow her along. Please note while attempting to give her low-dose metformin in this setting given that she has C. difficile colitis this may not be the treatment of choice. 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 States that she is eating meals however according to nursing staff this is not accurate Exam/Review of Systems Vital Signs Vitals Vital Signs Date Time Temp Pulse Resp B/P Pulse Ox O2 Delivery O2 Flow Rate FiO2 08/20/17 12:00 88 08/20/17 11:35 98.2 18 124/59 99 08/20/17 02:39 3.0 08/20/17 00:00 Nasal Cannula Intake and Output 08/19/17 08/19/17 08/20/17 15:00 23:00 07:00 Intake Total 1960 ml 1710 ml Output Total 1400 ml 1250 ml Balance 560 ml 460 ml Exam Constitutional: alert Respiratory: clear to auscultation, normal air movement Cardiovascular: nl pulses, regular rate and rhythm Results Result Diagram: 08/20/17 0637 08/20/17 0637 Results 24 hrs Laboratory Tests Test 08/19/17 17:29 08/19/17 22:34 08/20/17 01:18 08/20/17 06:13 Bedside Glucose 207 153 134 194 Test 08/20/17 06:37 08/20/17 09:52 08/20/17 13:13 White Blood Count 7.8 Red Blood Count 4.13 #L Hemoglobin 11.0 #L Hematocrit 37.3 # Mean Corpuscular Volume 90.3 Mean Corpuscular Hemoglobin 26.6 L Mean Corpuscular Hemoglobin Concent 29.5 L Red Cell Distribution Width 18.7 H Platelet Count 901 #H Mean Platelet Volume 11.3 H Neutrophils % Segmented Neutrophils % (Manual) 59 Band Neutrophils % (Manual) 2 Lymphocytes % Lymphocytes % (Manual) 22 Reactive Lymphocytes % (Manual) 2 H Monocytes % Monocytes % (Manual) 1 Eosinophils % Eosinophils % (Manual) 4 Basophils % Basophils % (Manual) 3 H Metamyelocytes % (manual) 1 H Myelocytes % (Manual) 6 H Nucleated Red Blood Cells % 1 H Neutrophils # Neutrophils # (Manual) 4.6 Band Neutrophils # 0.1 Absolute Lymphocytes (Manual) 1.7 Lymphocytes # Reactive Lymphocytes # 0.1 H Monocytes # Absolute Monocytes (Manual) 0.0 L Eosinophils # Basophils # Basophils # (Manual) 0.2 H Metamyelocytes # 0.0 Myelocytes # 0.4 H Nucleated Red Blood Cells # Platelet Estimate INCREASED Giant Platelets 1 H Polychromasia 3+ Hypochromasia 1+ Poikilocytosis 1+ Anisocytosis 1+ Microcytosis 1+ Sodium Level 134 L Potassium Level 4.8 Chloride Level 98 Carbon Dioxide Level 29 Anion Gap 12 Blood Urea Nitrogen 18 Creatinine 0.45 Glucose Level 198 Calcium Level 9.1 Bedside Glucose 292 H 302 H Medications Medications Current Medications Acetaminophen (Tylenol Tab) 650 mg Q4H PRN GTB MILD PAIN LEVEL 1-3 Last administered on 08/14/17 20:59; Admin Dose 650 MG; Start 08/10/17 at 16:00 Eye Lubricant (Akwa Oint) 1 applic HS BOTH EYES Last administered on 08/19/17 22:26; Admin Dose 1 APPLIC; Start 08/10/17 at 21:00 Ascorbic Acid (Vitamin C) 500 mg TID GTB Last administered on 08/20/17 13:08; Admin Dose 500 MG; Start 08/10/17 at 21:00 Atorvastatin Calcium (Lipitor) 40 mg QHS GTB Last administered on 08/19/17 22: 28; Admin Dose 40 MG; Start 08/10/17 at 21:00 Bisacodyl (Dulcolax Supp) 10 mg DAILY PRN [place] PRN; Start 08/10/17 at 16:00 Docusate Sodium (Colace Liquid Cup) 200 mg QHS GTB Last administered on 22:27; Admin Dose 200 MG; Start 08/10/17 at 21:00 Furosemide (Lasix) 20 mg DAILY GTB Last administered on 08/20/17 09:44; Admin Dose 20 MG; Start 08/11/17 at 09:00 Levetiracetam (Keppra Liquid) 500 mg BID GTB Last administered on 08/20/17 09: 43; Admin Dose 500 MG; Start 08/10/17 at 21:00 Magnesium Hydroxide (Milk Of Mag) 30 ml QHS GTB Last administered on 08/18/17 21:22; Admin Dose 30 ML; Start 08/10/17 at 21:00 Magnesium Oxide (Mag-Ox 400) 400 mg TID GTB Last administered on 08/20/17 13: 08; Admin Dose 400 MG; Start 08/10/17 at 21:00 Ondansetron HCl (Zofran Tab) 4 mg Q6H PRN GTB NAUSEA AND/OR VOMITING; Start 08/10/17 at 16:00 Sodium Biphosphate/ Sodium Phosphate (Fleet Enema) 133 ml Q24H PRN [place] CONSTIPATION; Start 08/10/17 at 17:00 Tramadol HCl (Ultram) 50 mg BID GTB Last administered on 08/20/17 09:45; Admin Dose 50 MG; Start 08/10/17 at 21:00 Ferrous Sulfate (Feosol Liquid Cup) 300 mg BID GTB Last administered on 09:43; Admin Dose 300 MG; Start 08/10/17 at 21:00 Multivitamins Therapeutic (Theragran) 1 tab DAILY GTB Last administered on 08/20 09:45; Admin Dose 1 TAB; Start 08/11/17 at 09:00 Lansoprazole (Prevacid) 30 mg DAILY@06 GTB Last administered on 08/20/17 06:14 ; Admin Dose 30 MG; Start 08/11/17 at 06:00 Diltiazem HCl (Cardizem) 60 mg Q8 GTB Last administered on 08/20/17 06:14; Admin Dose 60 MG; Start 08/10/17 at 22:00 Miscellaneous Information 1 ea NOTE XX ; Start 08/10/17 at 16:30 Glucose (Glutose) 15 gm Q15M PRN PO DECREASED GLUCOSE; Start 08/10/17 at 16:30 Glucose (Glutose) 22.5 gm Q15M PRN PO DECREASED GLUCOSE; Start 08/10/17 at 16:30 Dextrose (D50w Syringe) 25 ml Q15M PRN IV DECREASED GLUCOSE Last administered on 08/16/17 17:27; Admin Dose 25 ML; Start 08/10/17 at 16:30 Dextrose (D50w Syringe) 50 ml Q15M PRN IV DECREASED GLUCOSE Last administered on 08/12/17 21:56; Admin Dose 50 ML; Start 08/10/17 at 16:30 Glucagon (Glucagen) 1 mg Q15M PRN IM DECREASED GLUCOSE; Start 08/10/17 at 16:30 Glucose (Glutose) 15 gm Q15M PRN BUCCAL DECREASED GLUCOSE; Start 08/10/17 at 16: 30 Latanoprost (Xalatan) 1 drop HS BOTH EYES Last administered on 08/19/17 22:26 ; Admin Dose 1 DROP; Start 08/10/17 at 21:00 Diagnostic Test (Pha) (Accu-Chek) 1 ea 02 XX Last administered on 08/15/17 02: 07; Admin Dose 1 EA; Start 08/12/17 at 02:00 Insulin Aspart (Adult SC Insulin - Mild Algorithm)... Q4 SC Last administered on 08/20/17 13:35; Admin Dose 5 UNIT; Start 08/11/17 at 10:13 Sodium Chloride (1/2 NS) 1,000 ml @ 75 mls/hr [id number] IV Last administered on 08/19/17 17:24; Admin Dose 75 MLS/HR; Start 08/11/17 at 13:30 Metoprolol Tartrate (Lopressor) 25 mg BID GTB Last administered on 08/20/17 09 :44; Admin Dose 25 MG; Start 08/11/17 at 21:00 Sodium Hypochlorite 1 applic 1 applic BID IRR Last administered on 08/20/17 10 :08; Admin Dose 1 APPLIC; Start 08/11/17 at 21:00 Ceftriaxone Sodium 50 ml @ 100 mls/hr Q24H IVPB Last administered on 13:09; Admin Dose 100 MLS/HR; Start 08/12/17 at 13:30 Metronidazole (Flagyl 500 Mg (Pmx)) 100 ml @ 100 mls/hr Q8 IVPB Last administered on 08/20/17 06:14; Admin Dose 100 MLS/HR; Start 08/12/17 at 14:00 Enoxaparin Sodium 40 mg 40 mg DAILY SC Last administered on 08/20/17 09:47; Admin Dose 40 MG; Start 08/12/17 at 15:00 Daptomycin/Sodium Chloride (Cubicin/NS) 100 ml @ 200 mls/hr Q24H IVPB Last administered on 08/19/17 17:16; Admin Dose 200 MLS/HR; Start 08/14/17 at 16:30 Metoclopramide HCl (Reglan Liq) 10 mg Q8 GTB Last administered on 08/20/17 06: 14; Admin Dose 10 MG; Start 08/16/17 at 22:00 Insulin Glargine (Lantus) 46 unit AM SC Last administered on 08/20/17 10:08; Admin Dose 46 UNIT; Start 08/20/17 at 09:00 Linagliptin (Tradjenta) 5 mg DAILY G-TUBE Last administered on 08/20/17 09:45 ; Admin Dose 5 MG; Start 08/19/17 at 17:30 JAKE RAO MD Aug 20, 2017 13:58
--- NOTE | 2017-08-20 15:57 | CONS ---
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 Suggested end date 09/25/2017 - continue ceftriaxone (08/12/2017-) for proteus infection. Suggested end date . - continue IV metronidazole (08/12/2017-) for c-diff - we recommend weekly CBC, CMP, CK (CK 30 on 08/19/2017) - continue enteric contact isolation Management d/w patient, DAVE Edwards, and Dr. Pitt Problems: Consultation Date/Type/Reason Admit Date/Time Aug 10, 2017 at 14:12 Initial Consult Date 08/11/17 Type of Consultation: Infectious Disease Referring Provider: LUZMA HYMAN MD 24 HR Interval Summary Free Text/Dictation Had 2 episodes of watery stool today per d/w nursing staff. Pt denies pain, SOB, n/v. ROS limited due to baseline dementia. Exam/Review of Systems Vital Signs Vitals Vital Signs Date Time Temp Pulse Resp B/P Pulse Ox O2 Delivery O2 Flow Rate FiO2 08/20/17 12:00 88 08/20/17 11:35 98.2 18 124/59 99 08/20/17 02:39 3.0 08/20/17 00:00 Nasal Cannula Intake and Output 08/19/17 08/19/17 08/20/17 15:00 23:00 07:00 Intake Total 1960 ml 1710 ml Output Total 1400 ml 1250 ml Balance 560 ml 460 ml Exam Constitutional: alert, well developed Head: atraumatic, normocephalic Eyes: nl conjunctiva, nl lids Neck: supple Respiratory: clear to auscultation, normal air movement Cardiovascular: nl pulses, regular rate and rhythm Gastrointestinal: non-tender, other (G-tube intact), soft Musculoskeletal: other (contracted; limited ROM; bilateral foot drop noted) Extremities: normal pulses, No edema Neurological: nl speech, confused Skin: nl turgor, other (sacral decub- see nurse note and photos for details) Results Result Diagram: 08/20/17 0637 08/20/17 0637 Results 24 hrs Laboratory Tests Test 08/19/17 17:29 08/19/17 22:34 08/20/17 01:18 08/20/17 06:13 Bedside Glucose 207 153 134 194 Test 08/20/17 06:37 08/20/17 09:52 08/20/17 13:13 White Blood Count 7.8 Red Blood Count 4.13 #L Hemoglobin 11.0 #L Hematocrit 37.3 # Mean Corpuscular Volume 90.3 Mean Corpuscular Hemoglobin 26.6 L Mean Corpuscular Hemoglobin Concent 29.5 L Red Cell Distribution Width 18.7 H Platelet Count 901 #H Mean Platelet Volume 11.3 H Neutrophils % Segmented Neutrophils % (Manual) 59 Band Neutrophils % (Manual) 2 Lymphocytes % Lymphocytes % (Manual) 22 Reactive Lymphocytes % (Manual) 2 H Monocytes % Monocytes % (Manual) 1 Eosinophils % Eosinophils % (Manual) 4 Basophils % Basophils % (Manual) 3 H Metamyelocytes % (manual) 1 H Myelocytes % (Manual) 6 H Nucleated Red Blood Cells % 1 H Neutrophils # Neutrophils # (Manual) 4.6 Band Neutrophils # 0.1 Absolute Lymphocytes (Manual) 1.7 Lymphocytes # Reactive Lymphocytes # 0.1 H Monocytes # Absolute Monocytes (Manual) 0.0 L Eosinophils # Basophils # Basophils # (Manual) 0.2 H Metamyelocytes # 0.0 Myelocytes # 0.4 H Nucleated Red Blood Cells # Platelet Estimate INCREASED Giant Platelets 1 H Polychromasia 3+ Hypochromasia 1+ Poikilocytosis 1+ Anisocytosis 1+ Microcytosis 1+ Sodium Level 134 L Potassium Level 4.8 Chloride Level 98 Carbon Dioxide Level 29 Anion Gap 12 Blood Urea Nitrogen 18 Creatinine 0.45 Glucose Level 198 Calcium Level 9.1 Bedside Glucose 292 H 302 H Medications Medications Current Medications Acetaminophen (Tylenol Tab) 650 mg Q4H PRN GTB MILD PAIN LEVEL 1-3 Last administered on 08/14/17 20:59; Admin Dose 650 MG; Start 08/10/17 at 16:00 Eye Lubricant (Akwa Oint) 1 applic HS BOTH EYES Last administered on 08/19/17 22:26; Admin Dose 1 APPLIC; Start 08/10/17 at 21:00 Ascorbic Acid (Vitamin C) 500 mg TID GTB Last administered on 08/20/17 13:08; Admin Dose 500 MG; Start 08/10/17 at 21:00 Atorvastatin Calcium (Lipitor) 40 mg QHS GTB Last administered on 08/19/17 22: 28; Admin Dose 40 MG; Start 08/10/17 at 21:00 Bisacodyl (Dulcolax Supp) 10 mg DAILY PRN [place] PRN; Start 08/10/17 at 16:00 Docusate Sodium (Colace Liquid Cup) 200 mg QHS GTB Last administered on 22:27; Admin Dose 200 MG; Start 08/10/17 at 21:00 Furosemide (Lasix) 20 mg DAILY GTB Last administered on 08/20/17 09:44; Admin Dose 20 MG; Start 08/11/17 at 09:00 Levetiracetam (Keppra Liquid) 500 mg BID GTB Last administered on 08/20/17 09: 43; Admin Dose 500 MG; Start 08/10/17 at 21:00 Magnesium Hydroxide (Milk Of Mag) 30 ml QHS GTB Last administered on 08/18/17 21:22; Admin Dose 30 ML; Start 08/10/17 at 21:00 Magnesium Oxide (Mag-Ox 400) 400 mg TID GTB Last administered on 08/20/17 13: 08; Admin Dose 400 MG; Start 08/10/17 at 21:00 Ondansetron HCl (Zofran Tab) 4 mg Q6H PRN GTB NAUSEA AND/OR VOMITING; Start 08/10/17 at 16:00 Sodium Biphosphate/ Sodium Phosphate (Fleet Enema) 133 ml Q24H PRN [place] CONSTIPATION; Start 08/10/17 at 17:00 Tramadol HCl (Ultram) 50 mg BID GTB Last administered on 08/20/17 09:45; Admin Dose 50 MG; Start 08/10/17 at 21:00 Ferrous Sulfate (Feosol Liquid Cup) 300 mg BID GTB Last administered on 09:43; Admin Dose 300 MG; Start 08/10/17 at 21:00 Multivitamins Therapeutic (Theragran) 1 tab DAILY GTB Last administered on 08/20 09:45; Admin Dose 1 TAB; Start 08/11/17 at 09:00 Lansoprazole (Prevacid) 30 mg DAILY@06 GTB Last administered on 08/20/17 06:14 ; Admin Dose 30 MG; Start 08/11/17 at 06:00 Diltiazem HCl (Cardizem) 60 mg Q8 GTB Last administered on 08/20/17 14:13; Admin Dose 60 MG; Start 08/10/17 at 22:00 Miscellaneous Information 1 ea NOTE XX ; Start 08/10/17 at 16:30 Glucose (Glutose) 15 gm Q15M PRN PO DECREASED GLUCOSE; Start 08/10/17 at 16:30 Glucose (Glutose) 22.5 gm Q15M PRN PO DECREASED GLUCOSE; Start 08/10/17 at 16:30 Dextrose (D50w Syringe) 25 ml Q15M PRN IV DECREASED GLUCOSE Last administered on 08/16/17 17:27; Admin Dose 25 ML; Start 08/10/17 at 16:30 Dextrose (D50w Syringe) 50 ml Q15M PRN IV DECREASED GLUCOSE Last administered on 08/12/17 21:56; Admin Dose 50 ML; Start 08/10/17 at 16:30 Glucagon (Glucagen) 1 mg Q15M PRN IM DECREASED GLUCOSE; Start 08/10/17 at 16:30 Glucose (Glutose) 15 gm Q15M PRN BUCCAL DECREASED GLUCOSE; Start 08/10/17 at 16: 30 Latanoprost (Xalatan) 1 drop HS BOTH EYES Last administered on 08/19/17 22:26 ; Admin Dose 1 DROP; Start 08/10/17 at 21:00 Diagnostic Test (Pha) (Accu-Chek) 1 ea 02 XX Last administered on 08/15/17 02: 07; Admin Dose 1 EA; Start 08/12/17 at 02:00 Insulin Aspart (Adult SC Insulin - Mild Algorithm)... Q4 SC Last administered on 08/20/17 13:35; Admin Dose 5 UNIT; Start 08/11/17 at 10:13 Sodium Chloride (1/2 NS) 1,000 ml @ 75 mls/hr [id number] IV Last administered on 08/19/17 17:24; Admin Dose 75 MLS/HR; Start 08/11/17 at 13:30 Metoprolol Tartrate (Lopressor) 25 mg BID GTB Last administered on 08/20/17 09 :44; Admin Dose 25 MG; Start 08/11/17 at 21:00 Sodium Hypochlorite 1 applic 1 applic BID IRR Last administered on 08/20/17 10 :08; Admin Dose 1 APPLIC; Start 08/11/17 at 21:00 Ceftriaxone Sodium 50 ml @ 100 mls/hr Q24H IVPB Last administered on 13:09; Admin Dose 100 MLS/HR; Start 08/12/17 at 13:30 Metronidazole (Flagyl 500 Mg (Pmx)) 100 ml @ 100 mls/hr Q8 IVPB Last administered on 08/20/17 14:13; Admin Dose 100 MLS/HR; Start 08/12/17 at 14:00 Enoxaparin Sodium 40 mg 40 mg DAILY SC Last administered on 08/20/17 09:47; Admin Dose 40 MG; Start 08/12/17 at 15:00 Daptomycin/Sodium Chloride (Cubicin/NS) 100 ml @ 200 mls/hr Q24H IVPB Last administered on 08/19/17 17:16; Admin Dose 200 MLS/HR; Start 08/14/17 at 16:30 Metoclopramide HCl (Reglan Liq) 10 mg Q8 GTB Last administered on 08/20/17 14: 13; Admin Dose 10 MG; Start 08/16/17 at 22:00 Linagliptin (Tradjenta) 5 mg DAILY G-TUBE Last administered on 08/20/17 09:45 ; Admin Dose 5 MG; Start 08/19/17 at 17:30 Insulin Glargine (Lantus) 26 unit Q12 SC ; Start 08/21/17 at 09:00 PHILIP CLARKE NP Aug 20, 2017 15:56
[2017-08-20] MEDS: DAPTOMYCIN IVPB SCH (16:07)
[2017-08-20] MEDS: SOD CHLORIDE 0.9% IVPB SCH (16:07)
[2017-08-20] MEDS: ACETAMINOPHEN 325 MG TAB GTB PRN (16:08)
[2017-08-20] MEDS: OCULAR LUBRICANT 3.5 GM OPH OINT BOTH EYES SCH (21:22)
[2017-08-20] MEDS: ATORVASTATIN 40 MG TAB GTB SCH (21:22)
[2017-08-20] MEDS: DOCUSATE SODIUM 10 MG/ML (10ML CUP) GTB SCH (21:22)
[2017-08-20] MEDS: MAGNESIUM HYDROXIDE 30ML CUP GTB SCH (21:22)
[2017-08-20] MEDS: LATANOPROST 0.005% 2.5 ML OPH BOTH EYES SCH (21:22)
--- NOTE | 2017-08-20 23:46 | PN ---
Date/Time of Note Date/Time of Note DATE: 08/20/17 TIME: 23:45 Assessment/Plan Lines/Catheters IV Catheter Type (from Nrs): Peripheral IV Shields in Place (from Nrs): Yes Assessment/Plan Chief Complaint/Hosp Course 1. Sacral wound stage IV with osteomyelitis: s/p debridement 08/14, cultures noted -local care with dakin's -iv abx per sensitivities -frequent turning and offloading -low airloss mattress -nutrition optimization -vitamin c/short term zinc -debridement prn 2. Vomiting with abdominal distention and ?sbo: KUB without evidence of obstruction; +bowel function: vomiting likely 2/2 rate of medication administration per nursing; imaging noted: resolved, tolerating tf -slow medication administration per gtube: use gravity -monitor 3. UTI: cultures noted -cath care -abx per sensitivities 4.Hypochromic anemia: no acute bleed noted -monitor and transfuse as needed -workup per medical team 5. Sepsis with Leukocytosis: likely 2/2 above: resolved -as above 6. Thrombocytosis: 2/2 infection vs. other; improving -monitor and workup if persistent 7. Dysphagia with feeding per feeding tube -cont tf with aspiration precautions 8. DM/ Hyperglycemia: -blood sugar optimization 9. Elevated alk phos: 2/2 osteo vs. gi source (doubt): abd us noted -monitor 10. HTN: -medical optimization 11. hyponatremia- judicious fluids+/- fluid restriction 12. Hx. of bipolar disorder/schizophrenia -medical./psych management 13. History of epilepsy -sz precautions 14. Loose stools: +cdiff -abx Thank you. Patient seen and examined in collaboration with Dr. Eric Tineo. Problems: Exam/Review of Systems Vital Signs Vitals Vital Signs Date Time Temp Pulse Resp B/P Pulse Ox O2 Delivery O2 Flow Rate FiO2 08/20/17 20:18 85 08/20/17 20:07 98.1 19 172/76 95 08/20/17 20:00 Nasal Cannula 4.0 Intake and Output 08/19/17 08/19/17 08/20/17 15:00 23:00 07:00 Intake Total 1960 ml 1710 ml Output Total 1400 ml 1250 ml Balance 560 ml 460 ml Results Result Diagram: 08/20/17 0637 08/20/1737 SOREN LISA NP Aug 20, 2017 23:45
[2017-08-21] VITALS (12 sets, daily range): BP systolic 106–153; BP diastolic 55–67; PULSE 68–95; RESP 16–20
[2017-08-21] MEDS: INSULIN ASPART [NOVOLOG] 3 ML PEN SC SCH ×6 (00:38→21:11)
[2017-08-21] MEDS: ACCU-CHEK XX SCH (01:36)
[2017-08-21] MEDS: METOCLOPRAMIDE (1 MG/ML) 10 ML CUP GTB SCH ×3 (05:25→21:05)
[2017-08-21] MEDS: metroNIDAZOLE 500 MG/NS (PMX) 100 ML IVPB SCH ×3 (05:26→21:11)
[2017-08-21] MEDS: LANSOPRAZOLE 30 MG CAP GTB SCH (05:26)
[2017-08-21] MEDS: DILTIAZEM 60 MG TAB GTB SCH ×3 (05:26→21:06)
[2017-08-21 08:17] LABS: BASOPHIL # 0.1 10^3/ul (0.0-0.1); BASOPHILS % 0.8 % (0.0-2.0); EOSINOPHILS # 0.5 10^3/ul (0.0-0.5); EOSINOPHILS % 4.7 % (0.0-7.0); HEMATOCRIT 33.1 % (37.0-47.0); LYMPHOCYTES # 2.2 10^3/ul (0.8-2.9); LYMPHOCYTES % 20.7 % (15.0-51.0); MEAN CORPUSCULAR HEMOGLOBIN 26.6 pg (29.0-33.0); MEAN CORPUSCULAR HGB CONC 30.2 g/dl (32.0-37.0); MEAN PLATELET VOLUME 9.9 fl (7.4-10.4); MONOCYTE # 0.6 10^3/ul (0.3-0.9); MONOCYTES % 5.7 % (0.0-11.0); NEUTROPHIL # 6.7 10^3/ul (1.6-7.5); NEUTROPHILS % 63.8 % (39.0-77.0); RED BLOOD COUNT 3.76 10^6/ul (4.20-5.40); RED CELL DISTRIBUTION WIDTH 18.8 % (11.5-14.5); WHITE BLOOD COUNT 10.4 10^3/ul (4.8-10.8)
[2017-08-21 08:18] LABS: PLATELET COUNT 766 10^3/UL (140-415)
[2017-08-21] MEDS: LINAGLIPTIN 5 MG TABLET G-TUBE SCH (08:31)
[2017-08-21] MEDS: METOPROLOL 25 MG TAB GTB SCH ×2 (08:31→21:07)
[2017-08-21] MEDS: MULTIVITAMINS THERAPEUTIC TAB GTB SCH (08:31)
[2017-08-21] MEDS: ASCORBIC ACID 500 MG TAB GTB SCH ×3 (08:32→21:05)
[2017-08-21] MEDS: MAGNESIUM OXIDE 400 MG TAB GTB SCH ×3 (08:32→21:04)
[2017-08-21] MEDS: FUROSEMIDE 20 MG TAB GTB SCH (08:32)
[2017-08-21] MEDS: FERROUS SULFATE 60 MG/ML 5ML CUP GTB SCH ×2 (08:36→21:05)
[2017-08-21] MEDS: LEVETIRACETAM (100 MG/ML) 5ML CUP GTB SCH ×2 (08:36→21:05)
[2017-08-21] MEDS: traMADol 50 MG TAB GTB SCH ×2 (08:36→21:06)
[2017-08-21 08:43] LABS: CREATININE 0.46 mg/dl (0.44-1.00); POTASSIUM 4.7 mmol/L (3.5-5.1)
[2017-08-21] MEDS: ENOXAPARIN 40 MG/0.4 ML SYG SC SCH (08:43)
[2017-08-21] MEDS: SODIUM HYPOCHLORITE 0.125% 473 ML BTL IRR SCH ×3 (08:48→21:27)
[2017-08-21] MEDS ORDERED: INSULIN GLARGINE [LANtus] 3 ML PEN SC SCH ×2 (09:00→21:00)
[2017-08-21] MEDS: CEFTRIAXONE 1 GM/NS 50 ML IVPB SCH (13:08)
[2017-08-21] MEDS: SOD CHLORIDE 0.45% 1,000 ML IV SCH (13:11)
--- NOTE | 2017-08-21 14:25 | CONS ---
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 Suggested end date 09/25/2017 - continue ceftriaxone (08/12/2017-) for proteus infection. Suggested end date . - continue IV metronidazole (08/12/2017-) for c-diff - we recommend weekly CBC, CMP, CK (CK 30 on 08/19/2017) - continue enteric contact isolation Management d/w patient, DAVE Edwards, and Dr. Pitt Consultation Date/Type/Reason Admit Date/Time Aug 10, 2017 at 14:12 Initial Consult Date 08/11/17 Type of Consultation: Infectious Disease Referring Provider: LUZMA HYMAN MD 24 HR Interval Summary Free Text/Dictation afebrile, wbc wnl, no new evens reported overnight. Detailed Summary Respiratory: no complaints Cardiovascular: no complaints Gastrointestinal: no complaints Musculoskeletal: no complaints Exam/Review of Systems Vital Signs Vitals Vital Signs Date Time Temp Pulse Resp B/P Pulse Ox O2 Delivery O2 Flow Rate FiO2 08/21/17 12:59 76 08/21/17 11:51 97.6 16 116/55 99 08/21/17 07:50 4.0 08/20/17 20:00 Nasal Cannula Intake and Output 08/20/17 08/20/17 08/21/17 15:00 23:00 07:00 Intake Total 300 ml 1000 ml 1780 ml Output Total 1800 ml 2100 ml Balance 300 ml -800 ml -320 ml Exam Constitutional: alert Respiratory: clear to auscultation, normal air movement Gastrointestinal: non-tender, soft Musculoskeletal: muscle weakness Extremities: normal pulses Neurological: nl speech, other Results Result Diagram: 08/21/17 0755 08/21/17 0755 Results 24 hrs Laboratory Tests Test 08/20/17 17:55 08/20/17 21:04 08/21/17 00:37 08/21/17 05:51 Bedside Glucose 183 112 130 225 H Test 08/21/17 07:55 08/21/17 08:38 08/21/17 13:15 White Blood Count 10.4 # Red Blood Count 3.76 L Hemoglobin 10.0 L Hematocrit 33.1 L Mean Corpuscular Volume 88.0 Mean Corpuscular Hemoglobin 26.6 L Mean Corpuscular Hemoglobin Concent 30.2 L Red Cell Distribution Width 18.8 H Platelet Count 766 H Mean Platelet Volume 9.9 Neutrophils % 63.8 Lymphocytes % 20.7 Monocytes % 5.7 Eosinophils % 4.7 Basophils % 0.8 Nucleated Red Blood Cells % 0.0 Neutrophils # 6.7 Lymphocytes # 2.2 Monocytes # 0.6 Eosinophils # 0.5 Basophils # 0.1 Nucleated Red Blood Cells # 0.0 Sodium Level 135 Potassium Level 4.7 Chloride Level 98 Carbon Dioxide Level 30 Anion Gap 12 Blood Urea Nitrogen 20 Creatinine 0.46 Glucose Level 259 H Calcium Level 9.0 Bedside Glucose 259 H 199 Medications Medications Current Medications Acetaminophen (Tylenol Tab) 650 mg Q4H PRN GTB MILD PAIN LEVEL 1-3 Last administered on 08/20/17 16:08; Admin Dose 650 MG; Start 08/10/17 at 16:00 Eye Lubricant (Akwa Oint) 1 applic HS BOTH EYES Last administered on 08/20/17 21:22; Admin Dose 1 APPLIC; Start 08/10/17 at 21:00 Ascorbic Acid (Vitamin C) 500 mg TID GTB Last administered on 08/21/17 13:13; Admin Dose 500 MG; Start 08/10/17 at 21:00 Atorvastatin Calcium (Lipitor) 40 mg QHS GTB Last administered on 08/20/17 21: 22; Admin Dose 40 MG; Start 08/10/17 at 21:00 Bisacodyl (Dulcolax Supp) 10 mg DAILY PRN MS PRN; Start 08/10/17 at 16:00 Docusate Sodium (Colace Liquid Cup) 200 mg QHS GTB Last administered on 21:22; Admin Dose 200 MG; Start 08/10/17 at 21:00 Furosemide (Lasix) 20 mg DAILY GTB Last administered on 08/21/17 08:32; Admin Dose 20 MG; Start 08/11/17 at 09:00 Levetiracetam (Keppra Liquid) 500 mg BID GTB Last administered on 08/21/17 08: 36; Admin Dose 500 MG; Start 08/10/17 at 21:00 Magnesium Hydroxide (Milk Of Mag) 30 ml QHS GTB Last administered on 08/20/17 21:22; Admin Dose 30 ML; Start 08/10/17 at 21:00 Magnesium Oxide (Mag-Ox 400) 400 mg TID GTB Last administered on 08/21/17 13: 13; Admin Dose 400 MG; Start 08/10/17 at 21:00 Ondansetron HCl (Zofran Tab) 4 mg Q6H PRN GTB NAUSEA AND/OR VOMITING; Start 08/10/17 at 16:00 Sodium Biphosphate/ Sodium Phosphate (Fleet Enema) 133 ml Q24H PRN MS CONSTIPATION; Start 08/10/17 at 17:00 Tramadol HCl (Ultram) 50 mg BID GTB Last administered on 08/21/17 08:36; Admin Dose 50 MG; Start 08/10/17 at 21:00 Ferrous Sulfate (Feosol Liquid Cup) 300 mg BID GTB Last administered on 08:36; Admin Dose 300 MG; Start 08/10/17 at 21:00 Multivitamins Therapeutic (Theragran) 1 tab DAILY GTB Last administered on 08/21 08:31; Admin Dose 1 TAB; Start 08/11/17 at 09:00 Lansoprazole (Prevacid) 30 mg DAILY@06 GTB Last administered on 08/21/17 05:26 ; Admin Dose 30 MG; Start 08/11/17 at 06:00 Diltiazem HCl (Cardizem) 60 mg Q8 GTB Last administered on 08/21/17 13:12; Admin Dose 60 MG; Start 08/10/17 at 22:00 Miscellaneous Information 1 ea NOTE XX ; Start 08/10/17 at 16:30 Glucose (Glutose) 15 gm Q15M PRN PO DECREASED GLUCOSE; Start 08/10/17 at 16:30 Glucose (Glutose) 22.5 gm Q15M PRN PO DECREASED GLUCOSE; Start 08/10/17 at 16:30 Dextrose (D50w Syringe) 25 ml Q15M PRN IV DECREASED GLUCOSE Last administered on 08/16/17 17:27; Admin Dose 25 ML; Start 08/10/17 at 16:30 Dextrose (D50w Syringe) 50 ml Q15M PRN IV DECREASED GLUCOSE Last administered on 08/12/17 21:56; Admin Dose 50 ML; Start 08/10/17 at 16:30 Glucagon (Glucagen) 1 mg Q15M PRN IM DECREASED GLUCOSE; Start 08/10/17 at 16:30 Glucose (Glutose) 15 gm Q15M PRN BUCCAL DECREASED GLUCOSE; Start 08/10/17 at 16: 30 Latanoprost (Xalatan) 1 drop HS BOTH EYES Last administered on 08/20/17 21:22 ; Admin Dose 1 DROP; Start 08/10/17 at 21:00 Diagnostic Test (Pha) (Accu-Chek) 1 ea 02 XX Last administered on 08/15/17 02: 07; Admin Dose 1 EA; Start 08/12/17 at 02:00 Insulin Aspart (Adult SC Insulin - Mild Algorithm)... Q4 SC Last administered on 08/21/17 13:17; Admin Dose 2 UNIT; Start 08/11/17 at 10:13 Sodium Chloride (1/2 NS) 1,000 ml @ 75 mls/hr [id number] IV Last administered on 08/21/17 13:11; Admin Dose 75 MLS/HR; Start 08/11/17 at 13:30 Metoprolol Tartrate (Lopressor) 25 mg BID GTB Last administered on 08/21/17 08 :31; Admin Dose 25 MG; Start 08/11/17 at 21:00 Sodium Hypochlorite 1 applic 1 applic BID IRR Last administered on 08/21/17 13 :48; Admin Dose 1 APPLIC; Start 08/11/17 at 21:00 Ceftriaxone Sodium 50 ml @ 100 mls/hr Q24H IVPB Last administered on 13:08; Admin Dose 100 MLS/HR; Start 08/12/17 at 13:30 Metronidazole (Flagyl 500 Mg (Pmx)) 100 ml @ 100 mls/hr Q8 IVPB Last administered on 08/21/17 13:47; Admin Dose 100 MLS/HR; Start 08/12/17 at 14:00 Enoxaparin Sodium 40 mg 40 mg DAILY SC Last administered on 08/21/17 08:43; Admin Dose 40 MG; Start 08/12/17 at 15:00 Daptomycin/Sodium Chloride (Cubicin/NS) 100 ml @ 200 mls/hr Q24H IVPB Last administered on 08/20/17 16:07; Admin Dose 200 MLS/HR; Start 08/14/17 at 16:30 Metoclopramide HCl (Reglan Liq) 10 mg Q8 GTB Last administered on 08/21/17 13: 13; Admin Dose 10 MG; Start 08/16/17 at 22:00 Linagliptin (Tradjenta) 5 mg DAILY G-TUBE Last administered on 08/21/17 08:31 ; Admin Dose 5 MG; Start 08/19/17 at 17:30 Insulin Glargine (Lantus) 26 unit Q12 SC Last administered on 08/21/17 08:46; Admin Dose 26 UNIT; Start 08/21/17 at 09:00 MICHAEL COLINDRES Aug 21, 2017 14:25
--- NOTE | 2017-08-21 15:17 | CONS ---
Date/Time of Note Date/Time of Note DATE: 08/21/17 TIME: 15:16 Assessment/Plan Assessment/Plan Problems: (1) Diabetes mellitus, type 2 Status: Chronic Comment: Patient's sugars are drifting down but not in the goal range. Will make adjustments. Qualifiers: Diabetes mellitus complication status: with hyperglycemia Diabetes mellitus terminologist insulin use: without jail use Qualified Code: E11.65 - Type 2 diabetes mellitus with hyperglycemia, without long-term current use of insulin Consultation Date/Type/Reason Admit Date/Time Aug 10, 2017 at 14:12 Initial Consult Date 08/11/17 Type of Consultation: Endocrinology Reason for Consultation Diabetes mellitus type 2 out of control Referring Provider: LUZMA HYMAN MD 24 HR Interval Summary Constitutional: no complaints Exam/Review of Systems Vital Signs Vitals Vital Signs Date Time Temp Pulse Resp B/P Pulse Ox O2 Delivery O2 Flow Rate FiO2 08/21/17 13:48 Nasal Cannula 4.0 08/21/17 12:59 76 08/21/17 11:51 97.6 16 116/55 99 Intake and Output 08/20/17 08/20/17 08/21/17 15:00 23:00 07:00 Intake Total 300 ml 1000 ml 1780 ml Output Total 1800 ml 2100 ml Balance 300 ml -800 ml -320 ml Exam Constitutional: alert Respiratory: clear to auscultation, normal air movement Results Result Diagram: 08/21/17 0755 08/21/17 0755 Results 24 hrs Laboratory Tests Test 08/20/17 17:55 08/20/17 21:04 08/21/17 00:37 08/21/17 05:51 Bedside Glucose 183 112 130 225 H Test 08/21/17 07:55 08/21/17 08:38 08/21/17 13:15 White Blood Count 10.4 # Red Blood Count 3.76 L Hemoglobin 10.0 L Hematocrit 33.1 L Mean Corpuscular Volume 88.0 Mean Corpuscular Hemoglobin 26.6 L Mean Corpuscular Hemoglobin Concent 30.2 L Red Cell Distribution Width 18.8 H Platelet Count 766 H Mean Platelet Volume 9.9 Neutrophils % 63.8 Lymphocytes % 20.7 Monocytes % 5.7 Eosinophils % 4.7 Basophils % 0.8 Nucleated Red Blood Cells % 0.0 Neutrophils # 6.7 Lymphocytes # 2.2 Monocytes # 0.6 Eosinophils # 0.5 Basophils # 0.1 Nucleated Red Blood Cells # 0.0 Sodium Level 135 Potassium Level 4.7 Chloride Level 98 Carbon Dioxide Level 30 Anion Gap 12 Blood Urea Nitrogen 20 Creatinine 0.46 Glucose Level 259 H Calcium Level 9.0 Bedside Glucose 259 H 199 Medications Medications Current Medications Acetaminophen (Tylenol Tab) 650 mg Q4H PRN GTB MILD PAIN LEVEL 1-3 Last administered on 08/20/17 16:08; Admin Dose 650 MG; Start 08/10/17 at 16:00 Eye Lubricant (Akwa Oint) 1 applic HS BOTH EYES Last administered on 08/20/17 21:22; Admin Dose 1 APPLIC; Start 08/10/17 at 21:00 Ascorbic Acid (Vitamin C) 500 mg TID GTB Last administered on 08/21/17 13:13; Admin Dose 500 MG; Start 08/10/17 at 21:00 Atorvastatin Calcium (Lipitor) 40 mg QHS GTB Last administered on 08/20/17 21: 22; Admin Dose 40 MG; Start 08/10/17 at 21:00 Bisacodyl (Dulcolax Supp) 10 mg DAILY PRN GA PRN; Start 08/10/17 at 16:00 Docusate Sodium (Colace Liquid Cup) 200 mg QHS GTB Last administered on 21:22; Admin Dose 200 MG; Start 08/10/17 at 21:00 Furosemide (Lasix) 20 mg DAILY GTB Last administered on 08/21/17 08:32; Admin Dose 20 MG; Start 08/11/17 at 09:00 Levetiracetam (Keppra Liquid) 500 mg BID GTB Last administered on 08/21/17 08: 36; Admin Dose 500 MG; Start 08/10/17 at 21:00 Magnesium Hydroxide (Milk Of Mag) 30 ml QHS GTB Last administered on 08/20/17 21:22; Admin Dose 30 ML; Start 08/10/17 at 21:00 Magnesium Oxide (Mag-Ox 400) 400 mg TID GTB Last administered on 08/21/17 13: 13; Admin Dose 400 MG; Start 08/10/17 at 21:00 Ondansetron HCl (Zofran Tab) 4 mg Q6H PRN GTB NAUSEA AND/OR VOMITING; Start 08/10/17 at 16:00 Sodium Biphosphate/ Sodium Phosphate (Fleet Enema) 133 ml Q24H PRN GA CONSTIPATION; Start 08/10/17 at 17:00 Tramadol HCl (Ultram) 50 mg BID GTB Last administered on 08/21/17 08:36; Admin Dose 50 MG; Start 08/10/17 at 21:00 Ferrous Sulfate (Feosol Liquid Cup) 300 mg BID GTB Last administered on 08:36; Admin Dose 300 MG; Start 08/10/17 at 21:00 Multivitamins Therapeutic (Theragran) 1 tab DAILY GTB Last administered on 08/21 08:31; Admin Dose 1 TAB; Start 08/11/17 at 09:00 Lansoprazole (Prevacid) 30 mg DAILY@06 GTB Last administered on 08/21/17 05:26 ; Admin Dose 30 MG; Start 08/11/17 at 06:00 Diltiazem HCl (Cardizem) 60 mg Q8 GTB Last administered on 08/21/17 13:12; Admin Dose 60 MG; Start 08/10/17 at 22:00 Miscellaneous Information 1 ea NOTE XX ; Start 08/10/17 at 16:30 Glucose (Glutose) 15 gm Q15M PRN PO DECREASED GLUCOSE; Start 08/10/17 at 16:30 Glucose (Glutose) 22.5 gm Q15M PRN PO DECREASED GLUCOSE; Start 08/10/17 at 16:30 Dextrose (D50w Syringe) 25 ml Q15M PRN IV DECREASED GLUCOSE Last administered on 08/16/17 17:27; Admin Dose 25 ML; Start 08/10/17 at 16:30 Dextrose (D50w Syringe) 50 ml Q15M PRN IV DECREASED GLUCOSE Last administered on 08/12/17 21:56; Admin Dose 50 ML; Start 08/10/17 at 16:30 Glucagon (Glucagen) 1 mg Q15M PRN IM DECREASED GLUCOSE; Start 08/10/17 at 16:30 Glucose (Glutose) 15 gm Q15M PRN BUCCAL DECREASED GLUCOSE; Start 08/10/17 at 16: 30 Latanoprost (Xalatan) 1 drop HS BOTH EYES Last administered on 9/19/17at 21:22 ; Admin Dose 1 DROP; Start 08/10/17 at 21:00 Diagnostic Test (Pha) (Accu-Chek) 1 ea 02 XX Last administered on 08/15/17 02: 07; Admin Dose 1 EA; Start 08/12/17 at 02:00 Insulin Aspart (Adult SC Insulin - Mild Algorithm)... Q4 SC Last administered on 08/21/17 13:17; Admin Dose 2 UNIT; Start 08/11/17 at 10:13 Sodium Chloride (1/2 NS) 1,000 ml @ 75 mls/hr [id number] IV Last administered on 08/21/17 13:11; Admin Dose 75 MLS/HR; Start 08/11/17 at 13:30 Metoprolol Tartrate (Lopressor) 25 mg BID GTB Last administered on 08/21/17 08 :31; Admin Dose 25 MG; Start 08/11/17 at 21:00 Sodium Hypochlorite 1 applic 1 applic BID IRR Last administered on 08/21/17 13 :48; Admin Dose 1 APPLIC; Start 08/11/17 at 21:00 Ceftriaxone Sodium 50 ml @ 100 mls/hr Q24H IVPB Last administered on 13:08; Admin Dose 100 MLS/HR; Start 08/12/17 at 13:30 Metronidazole (Flagyl 500 Mg (Pmx)) 100 ml @ 100 mls/hr Q8 IVPB Last administered on 08/21/17 13:47; Admin Dose 100 MLS/HR; Start 08/12/17 at 14:00 Enoxaparin Sodium 40 mg 40 mg DAILY SC Last administered on 08/21/17 08:43; Admin Dose 40 MG; Start 08/12/17 at 15:00 Daptomycin/Sodium Chloride (Cubicin/NS) 100 ml @ 200 mls/hr Q24H IVPB Last administered on 08/20/17 16:07; Admin Dose 200 MLS/HR; Start 08/14/17 at 16:30 Metoclopramide HCl (Reglan Liq) 10 mg Q8 GTB Last administered on 08/21/17 13: 13; Admin Dose 10 MG; Start 08/16/17 at 22:00 Linagliptin (Tradjenta) 5 mg DAILY G-TUBE Last administered on 08/21/17 08:31 ; Admin Dose 5 MG; Start 08/19/17 at 17:30 Insulin Glargine (Lantus) 26 unit Q12 SC Last administered on 08/21/17 08:46; Admin Dose 26 UNIT; Start 08/21/17 at 09:00 JAKE RAO MD Aug 21, 2017 15:17
[2017-08-21] MEDS: DAPTOMYCIN IVPB SCH (15:59)
[2017-08-21] MEDS: SOD CHLORIDE 0.9% IVPB SCH (15:59)
--- NOTE | 2017-08-21 16:22 | PN ---
Date/Time of Note Date/Time of Note DATE: 08/21/17 TIME: 16:17 Assessment/Plan Lines/Catheters IV Catheter Type (from [facility]): Peripheral IV Shields in Place (from [facility]): Yes Assessment/Plan Chief Complaint/Hosp Course 1. Sacral wound stage IV with osteomyelitis: s/p debridement 08/14, cultures noted -continue local care with dakin's -iv abx per sensitivities -frequent turning and offloading -low airloss mattress -nutrition optimization -vitamin c/short term zinc -debridement prn 2. UTI: cultures noted -cath care -abx per sensitivities 3.Hypochromic anemia: no acute bleed noted -monitor and transfuse as needed -workup per medical team 4. Sepsis with Leukocytosis: likely 2/2 above: resolved -as above 5. Thrombocytosis: 2/2 infection vs. other -monitor and workup if persistent 6. Dysphagia with feeding per feeding tube -cont tf with aspiration precautions 7. DM/ Hyperglycemia: -blood sugar optimization 8. Elevated alk phos: 2/2 osteo vs. gi source (doubt): abd us noted -monitor 10. HTN: -medical optimization 11. hyponatremia- judicious fluids+/- fluid restriction 12. Hx. of bipolar disorder/schizophrenia -medical./psych management 13. History of epilepsy -sz precautions 14. Loose stools: +cdiff -abx Thank you. Patient seen and examined in collaboration with Dr. Eric Tineo. Problems: Subjective 24 Hr Interval Summary Feels well. In good spirits. Continues to have loose stools. No c/o pain, sob, cp, palpitations, n/v/d/dysuria, change in tele rhythm, excessive wound drainage or new wounds. Exam/Review of Systems Vital Signs Vitals Vital Signs Date Time Temp Pulse Resp B/P Pulse Ox O2 Delivery O2 Flow Rate FiO2 08/21/17 15:47 97.5 96 16 147/65 98 08/21/17 13:48 Nasal Cannula 4.0 Intake and Output 08/20/17 08/20/17 08/21/17 15:00 23:00 07:00 Intake Total 300 ml 1000 ml 1780 ml Output Total 1800 ml 2100 ml Balance 300 ml -800 ml -320 ml Exam Free Text/Dictation Constitutional: alert, oriented (to self), other (answers simple questions) Psych: nl mood/affectm, pleasant Head: atraumatic, normocephalic Eyes: nl lids, nl sclera ENMT: mucosa pink and moist Neck: non-tender, supple Respiratory: normal air movement Cardiovascular: regular rate and rhythm SR Gastrointestinal: bowel sounds, nondistended, non-tender, gtube, soft Genitourinary - Female: nl external genitalia Musculoskeletal: other (stiffness) Extremities: normal pulses, No edema Neurological: nl speech, No nl mental status (slow to respond), No nl strength Skin: other (multiple wounds, sacral ulcer packed, nonmalodorous,. min drainage ) ble leg wounds Results Result Diagram: 08/21/17 0755 08/21/17 0755 SOREN LISA NP Aug 21, 2017 16:22
--- NOTE | 2017-08-21 17:27 | PN ---
Date/Time of Note Date/Time of Note DATE: 08/21/17 TIME: 17:22 Assessment/Plan VTE Prophylaxis VTE Prophylaxis Intervention: SCD's Lines/Catheters IV C[facility]ter Type (from [facility]): Peripheral IV Urinary Cath still in place: Yes Reason Cath still needed: urinary retention Assessment/Plan Chief Complaint/Hosp Course Patient remains hemodynamically stable, had loose stool time once per nursing staff. Assessment/Plan - Sepsis due to UTI, infected decubitus ulcer and bacteremia, resolving. Continue antibiotics per ID. Dr. 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 Continue Keppra. - Dysphagia with percutaneous endoscopic gastrostomy. Continue G-tube feeding , aspiration precautions. - Diabetes mellitus type 2. Continue Lantus and NovoLog. Dr. Bonilla is following in endocrinology consultation - Dyslipidemia. Continue statins. - Schizophrenia and bipolar disorder. Further recommendations based on clinical course. Plan of care was discussed with Dr. Aly. Problems: Exam/Review of Systems Vital Signs Vitals Vital Signs Date Time Temp Pulse Resp B/P Pulse Ox O2 Delivery O2 Flow Rate FiO2 08/21/17 15:47 97.5 96 16 147/65 98 08/21/17 13:48 Nasal Cannula 4.0 Intake and Output 08/20/17 08/20/17 08/21/17 15:00 23:00 07:00 Intake Total 300 ml 1000 ml 1780 ml Output Total 1800 ml 2100 ml Balance 300 ml -800 ml -320 ml Exam Constitutional: alert Respiratory: normal air movement Cardiovascular: nl pulses Gastrointestinal: other (G-tube), soft Extremities: normal pulses Neurological: confused Skin: other (Sacral decubitus ulcer) Results Result Diagram: 08/21/17 0755 08/21/17 0755 Results 24 hrs Laboratory Tests Test 08/20/17 17:55 08/20/17 21:04 08/21/17 00:37 08/21/17 05:51 Bedside Glucose 183 112 130 225 H Test 08/21/17 07:55 08/21/17 08:38 08/21/17 13:15 White Blood Count 10.4 # Red Blood Count 3.76 L Hemoglobin 10.0 L Hematocrit 33.1 L Mean Corpuscular Volume 88.0 Mean Corpuscular Hemoglobin 26.6 L Mean Corpuscular Hemoglobin Concent 30.2 L Red Cell Distribution Width 18.8 H Platelet Count 766 H Mean Platelet Volume 9.9 Neutrophils % 63.8 Lymphocytes % 20.7 Monocytes % 5.7 Eosinophils % 4.7 Basophils % 0.8 Nucleated Red Blood Cells % 0.0 Neutrophils # 6.7 Lymphocytes # 2.2 Monocytes # 0.6 Eosinophils # 0.5 Basophils # 0.1 Nucleated Red Blood Cells # 0.0 Sodium Level 135 Potassium Level 4.7 Chloride Level 98 Carbon Dioxide Level 30 Anion Gap 12 Blood Urea Nitrogen 20 Creatinine 0.46 Glucose Level 259 H Calcium Level 9.0 Bedside Glucose 259 H 199 Medications Medications Current Medications Acetaminophen (Tylenol Tab) 650 mg Q4H PRN GTB MILD PAIN LEVEL 1-3 Last administered on 08/20/17 16:08; Admin Dose 650 MG; Start 08/10/17 at 16:00 Eye Lubricant (Akwa Oint) 1 applic HS BOTH EYES Last administered on 08/20/17 21:22; Admin Dose 1 APPLIC; Start 08/10/17 at 21:00 Ascorbic Acid (Vitamin C) 500 mg TID GTB Last administered on 08/21/17 13:13; Admin Dose 500 MG; Start 08/10/17 at 21:00 Atorvastatin Calcium (Lipitor) 40 mg QHS GTB Last administered on 08/20/17 21: 22; Admin Dose 40 MG; Start 08/10/17 at 21:00 Bisacodyl (Dulcolax Supp) 10 mg DAILY PRN [place] PRN; Start 08/10/17 at 16:00 Docusate Sodium (Colace Liquid Cup) 200 mg QHS GTB Last administered on 21:22; Admin Dose 200 MG; Start 08/10/17 at 21:00 Furosemide (Lasix) 20 mg DAILY GTB Last administered on 08/21/17 08:32; Admin Dose 20 MG; Start 08/11/17 at 09:00 Levetiracetam (Keppra Liquid) 500 mg BID GTB Last administered on 08/21/17 08: 36; Admin Dose 500 MG; Start 08/10/17 at 21:00 Magnesium Hydroxide (Milk Of Mag) 30 ml QHS GTB Last administered on 08/20/17 21:22; Admin Dose 30 ML; Start 08/10/17 at 21:00 Magnesium Oxide (Mag-Ox 400) 400 mg TID GTB Last administered on 08/21/17 13: 13; Admin Dose 400 MG; Start 08/10/17 at 21:00 Ondansetron HCl (Zofran Tab) 4 mg Q6H PRN GTB NAUSEA AND/OR VOMITING; Start 08/10/17 at 16:00 Sodium Biphosphate/ Sodium Phosphate (Fleet Enema) 133 ml Q24H PRN [place] CONSTIPATION; Start 08/10/17 at 17:00 Tramadol HCl (Ultram) 50 mg BID GTB Last administered on 08/21/17 08:36; Admin Dose 50 MG; Start 08/10/17 at 21:00 Ferrous Sulfate (Feosol Liquid Cup) 300 mg BID GTB Last administered on 08:36; Admin Dose 300 MG; Start 08/10/17 at 21:00 Multivitamins Therapeutic (Theragran) 1 tab DAILY GTB Last administered on 08/21 08:31; Admin Dose 1 TAB; Start 08/11/17 at 09:00 Lansoprazole (Prevacid) 30 mg DAILY@06 GTB Last administered on 08/21/17 05:26 ; Admin Dose 30 MG; Start 08/11/17 at 06:00 Diltiazem HCl (Cardizem) 60 mg Q8 GTB Last administered on 08/21/17 13:12; Admin Dose 60 MG; Start 08/10/17 at 22:00 Miscellaneous Information 1 ea NOTE XX ; Start 08/10/17 at 16:30 Glucose (Glutose) 15 gm Q15M PRN PO DECREASED GLUCOSE; Start 08/10/17 at 16:30 Glucose (Glutose) 22.5 gm Q15M PRN PO DECREASED GLUCOSE; Start 08/10/17 at 16:30 Dextrose (D50w Syringe) 25 ml Q15M PRN IV DECREASED GLUCOSE Last administered on 08/16/17 17:27; Admin Dose 25 ML; Start 08/10/17 at 16:30 Dextrose (D50w Syringe) 50 ml Q15M PRN IV DECREASED GLUCOSE Last administered on 08/12/17 21:56; Admin Dose 50 ML; Start 08/10/17 at 16:30 Glucagon (Glucagen) 1 mg Q15M PRN IM DECREASED GLUCOSE; Start 08/10/17 at 16:30 Glucose (Glutose) 15 gm Q15M PRN BUCCAL DECREASED GLUCOSE; Start 08/10/17 at 16: 30 Latanoprost (Xalatan) 1 drop HS BOTH EYES Last administered on 08/20/17 21:22 ; Admin Dose 1 DROP; Start 08/10/17 at 21:00 Diagnostic Test (Pha) (Accu-Chek) 1 ea 02 XX Last administered on 08/15/17 02: 07; Admin Dose 1 EA; Start 08/12/17 at 02:00 Insulin Aspart (Adult SC Insulin - Mild Algorithm)... Q4 SC Last administered on 08/21/17 13:17; Admin Dose 2 UNIT; Start 08/11/17 at 10:13 Sodium Chloride (1/2 NS) 1,000 ml @ 75 mls/hr [id number] IV Last administered on 08/21/17 13:11; Admin Dose 75 MLS/HR; Start 08/11/17 at 13:30 Metoprolol Tartrate (Lopressor) 25 mg BID GTB Last administered on 08/21/17 08 :31; Admin Dose 25 MG; Start 08/11/17 at 21:00 Sodium Hypochlorite 1 applic 1 applic BID IRR Last administered on 08/21/17 13 :48; Admin Dose 1 APPLIC; Start 08/11/17 at 21:00 Ceftriaxone Sodium 50 ml @ 100 mls/hr Q24H IVPB Last administered on 13:08; Admin Dose 100 MLS/HR; Start 08/12/17 at 13:30 Metronidazole (Flagyl 500 Mg (Pmx)) 100 ml @ 100 mls/hr Q8 IVPB Last administered on 08/21/17 13:47; Admin Dose 100 MLS/HR; Start 08/12/17 at 14:00 Enoxaparin Sodium 40 mg 40 mg DAILY SC Last administered on 08/21/17 08:43; Admin Dose 40 MG; Start 08/12/17 at 15:00 Daptomycin/Sodium Chloride (Cubicin/NS) 100 ml @ 200 mls/hr Q24H IVPB Last administered on 08/21/17 15:59; Admin Dose 200 MLS/HR; Start 08/14/17 at 16:30 Metoclopramide HCl (Reglan Liq) 10 mg Q8 GTB Last administered on 08/21/17 13: 13; Admin Dose 10 MG; Start 08/16/17 at 22:00 Linagliptin (Tradjenta) 5 mg DAILY G-TUBE Last administered on 08/21/17 08:31 ; Admin Dose 5 MG; Start 08/19/17 at 17:30 Insulin Glargine (Lantus) 28 unit Q12 SC ; Start 08/21/17 at 21:00 DENA SALGUERO Aug 21, 2017 17:27
[2017-08-21] MEDS: ATORVASTATIN 40 MG TAB GTB SCH (21:05)
[2017-08-21] MEDS: MAGNESIUM HYDROXIDE 30ML CUP GTB SCH (21:08)
[2017-08-21] MEDS: OCULAR LUBRICANT 3.5 GM OPH OINT BOTH EYES SCH (21:08)
[2017-08-21] MEDS: LATANOPROST 0.005% 2.5 ML OPH BOTH EYES SCH (21:08)
[2017-08-21] MEDS: DOCUSATE SODIUM 10 MG/ML (10ML CUP) GTB SCH (21:08)
[2017-08-22] VITALS (11 sets, daily range): BP systolic 105–138; BP diastolic 55–69; PULSE 77–85; RESP 16–18
[2017-08-22] MEDS: INSULIN ASPART [NOVOLOG] 3 ML PEN SC SCH ×5 (01:08→17:00)
[2017-08-22] MEDS: ACCU-CHEK XX SCH (02:27)
[2017-08-22] MEDS: SOD CHLORIDE 0.45% 1,000 ML IV SCH ×3 (02:50→16:10)
[2017-08-22] MEDS: DILTIAZEM 60 MG TAB GTB SCH ×2 (05:31→13:51)
[2017-08-22] MEDS: METOCLOPRAMIDE (1 MG/ML) 10 ML CUP GTB SCH ×2 (05:32→13:51)
[2017-08-22] MEDS: LANSOPRAZOLE 30 MG CAP GTB SCH (05:32)
[2017-08-22] MEDS: metroNIDAZOLE 500 MG/NS (PMX) 100 ML IVPB SCH ×2 (05:33→13:51)
[2017-08-22] MEDS: LEVETIRACETAM (100 MG/ML) 5ML CUP GTB SCH (08:43)
[2017-08-22] MEDS: FERROUS SULFATE 60 MG/ML 5ML CUP GTB SCH (08:43)
[2017-08-22] MEDS: LINAGLIPTIN 5 MG TABLET G-TUBE SCH (08:43)
[2017-08-22] MEDS: MAGNESIUM OXIDE 400 MG TAB GTB SCH ×2 (08:44→12:22)
[2017-08-22] MEDS: MULTIVITAMINS THERAPEUTIC TAB GTB SCH (08:44)
[2017-08-22] MEDS: traMADol 50 MG TAB GTB SCH (08:44)
[2017-08-22] MEDS: SODIUM HYPOCHLORITE 0.125% 473 ML BTL IRR SCH (08:44)
[2017-08-22] MEDS: FUROSEMIDE 20 MG TAB GTB SCH (08:44)
[2017-08-22] MEDS: ASCORBIC ACID 500 MG TAB GTB SCH ×2 (08:44→12:22)
[2017-08-22] MEDS: METOPROLOL 25 MG TAB GTB SCH (08:44)
[2017-08-22] MEDS: ENOXAPARIN 40 MG/0.4 ML SYG SC SCH (08:48)
[2017-08-22 08:55] LABS: ALBUMIN 3.1 g/dl (3.3-4.9); ALBUMIN/GLOBULIN RATIO 0.81; CALCIUM 9.5 mg/dl (8.4-10.2); CREATININE 0.43 mg/dl (0.44-1.00); POTASSIUM 4.3 mmol/L (3.5-5.1); TOTAL PROTEIN 6.9 g/dl (6.1-8.1)
[2017-08-22] MEDS ORDERED: INSULIN GLARGINE [LANtus] 3 ML PEN SC SCH (09:00)
--- NOTE | 2017-08-22 09:53 | CONS ---
Date/Time of Note Date/Time of Note DATE: 08/22/17 TIME: 09:51 Assessment/Plan Assessment/Plan Problems: (1) Diabetes mellitus, type 2 Status: Chronic Comment: Glucose levels out of range. Above goal. Will increase Lantus from 28 units subcu every 12 to 35 units subcu every 12. Will increase strength of NovoLog insulin sliding scale for mild to moderate. 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 Qualified Code: E11.65 - Type 2 diabetes mellitus with hyperglycemia, without long-term current use of insulin Consultation Date/Type/Reason Admit Date/Time Aug 10, 2017 at 14:12 Initial Consult Date 08/11/17 Type of Consultation: Endocrinology Reason for Consultation Type 2 diabetes mellitus out of control Referring Provider: LUZMA HYMAN MD 24 HR Interval Summary Constitutional: no complaints Exam/Review of Systems Vital Signs Vitals VS - Last 72 Hours, by Label Date Time Temp Pulse Resp B/P Pulse Ox O2 Delivery O2 Flow Rate FiO2 08/22/17 08:35 82 08/22/17 07:38 98.2 87 16 129/58 99 08/22/17 05:21 98.2 79 18 138/63 94 Nasal Cannula 3.0 08/22/17 04:06 81 08/22/17 04:00 97.6 86 18 132/69 97 08/22/17 01:24 4.0 08/22/17 00:07 85 08/21/17 23:17 98.5 81 20 126/60 97 08/21/17 21:30 Nasal Cannula 4.0 08/21/17 20:05 95 08/21/17 20:00 98.6 88 20 153/66 97 08/21/17 19:00 4.0 08/21/17 17:28 81 08/21/17 15:47 97.5 96 16 147/65 98 08/21/17 13:48 Nasal Cannula 4.0 08/21/17 12:59 76 08/21/17 11:51 97.6 82 16 116/55 99 08/21/17 08:50 Nasal Cannula 4.0 08/21/17 08:41 90 08/21/17 08:09 98.7 96 16 146/63 98 08/21/17 07:50 4.0 08/21/17 04:26 71 08/21/17 04:20 4.0 08/21/17 03:56 97.9 104 19 106/67 97 08/21/17 00:22 68 08/20/17 23:53 97.9 79 19 159/80 95 08/20/17 23:50 4.0 08/20/17 20:18 85 08/20/17 20:07 98.1 88 19 172/76 95 08/20/17 20:00 Nasal Cannula 4.0 08/20/17 18:09 4.0 08/20/17 18:08 4.0 08/20/17 16:00 Nasal Cannula 4.0 08/20/17 16:00 86 08/20/17 15:49 97.9 86 17 110/55 96 08/20/17 12:00 Nasal Cannula 4.0 08/20/17 12:00 88 08/20/17 11:35 98.2 83 18 124/59 99 08/20/17 09:30 94 3.0 08/20/17 09:00 Nasal Cannula 4.0 08/20/17 08:00 82 08/20/17 07:52 97.4 88 16 112/53 97 08/20/17 04:55 97.7 84 16 121/57 95 08/20/17 04:05 78 08/20/17 02:39 96 3.0 08/20/17 00:05 86 08/20/17 00:00 98.4 78 20 146/64 96 08/20/17 00:00 Nasal Cannula 3.0 08/19/17 23:03 96 3.0 08/19/17 20:07 92 08/19/17 20:00 Nasal Cannula 3.0 08/19/17 20:00 Nasal Cannula 3.0 08/19/17 20:00 98.6 96 20 142/64 98 08/19/17 16:33 84 08/19/17 15:34 97.8 90 20 112/56 97 08/19/17 12:22 87 08/19/17 11:13 98.3 92 17 135/60 95 Vital Signs Date Time Temp Pulse Resp B/P Pulse Ox O2 Delivery O2 Flow Rate FiO2 08/22/17 08:35 82 08/22/17 07:38 98.2 16 129/58 99 08/22/17 05:21 Nasal Cannula 3.0 Intake and Output 08/21/17 08/21/17 08/22/17 15:00 23:00 07:00 Intake Total 250 ml 1690 ml 1470 ml Output Total 1400 ml 2000 ml Balance 250 ml 290 ml -530 ml Exam Constitutional: alert, frail Psych: nl mood/affect, no complaints Respiratory: clear to auscultation, normal air movement Cardiovascular: regular rate and rhythm, No edema, No murmurs/extra sounds, No rub Gastrointestinal: bowel sounds, nl liver, spleen, non-tender, soft, No mass, No rebound or guarding Musculoskeletal: nl extremities to inspection Extremities: No clubbing, No cyanosis, No edema Neurological: lethargic Additional Comments Bedside Glucose - 72 Hours Test 08/19/17 11:39 08/19/17 13:39 08/19/17 17:29 08/19/17 22:34 Bedside Glucose 259mg/dL (70-220) H 236mg/dL (70-220) H 207mg/dL (70-220) 153mg/dL (70-220) Test 08/20/17 01:18 08/20/17 06:13 08/20/17 09:52 08/20/17 13:13 Bedside Glucose 134mg/dL (70-220) 194mg/dL (70-220) 292mg/dL (70-220) H 302mg/dL (70-220) H Test 08/20/17 17:55 08/20/17 21:04 08/21/17 00:37 08/21/17 05:51 Bedside Glucose 183mg/dL (70-220) 112mg/dL (70-220) 130mg/dL (70-220) 225mg/dL (70-220) H Test 08/21/17 08:38 08/21/17 13:15 08/21/17 17:20 08/21/17 20:56 Bedside Glucose 259mg/dL (70-220) H 199mg/dL (70-220) 255mg/dL (70-220) H 305mg/dL (70-220) H Test 08/22/17 01:05 08/22/17 05:16 08/22/17 08:42 Bedside Glucose 183mg/dL (70-220) 236mg/dL (70-220) H 204mg/dL (70-220) Results Result Diagram: 08/21/17 0755 08/22/17 0745 Results 24 hrs Laboratory Tests Test 08/21/17 13:15 08/21/17 17:20 08/21/17 20:56 08/22/17 01:05 Bedside Glucose 199 255 H 305 H 183 Test 08/22/17 05:16 08/22/17 07:45 08/22/17 08:42 Bedside Glucose 236 H 204 Sodium Level 135 Potassium Level 4.3 Chloride Level 98 Carbon Dioxide Level 30 Anion Gap 11 Blood Urea Nitrogen 19 Creatinine 0.43 L Glucose Level 212 Calcium Level 9.5 Total Bilirubin 0.0 L Direct Bilirubin 0.00 Indirect Bilirubin 0.0 Aspartate Amino Transf (AST/SGOT) 30 Alanine Aminotransferase (ALT/SGPT) 29 Alkaline Phosphatase 146 H Total Protein 6.9 Albumin 3.1 L Globulin 3.80 H Albumin/Globulin Ratio 0.81 Medications Medications Current Medications Acetaminophen (Tylenol Tab) 650 mg Q4H PRN GTB MILD PAIN LEVEL 1-3 Last administered on 08/20/17 16:08; Admin Dose 650 MG; Start 08/10/17 at 16:00 Eye Lubricant (Akwa Oint) 1 applic HS BOTH EYES Last administered on 08/21/17 21:08; Admin Dose 1 APPLIC; Start 08/10/17 at 21:00 Ascorbic Acid (Vitamin C) 500 mg TID GTB Last administered on 08/22/17 08:44; Admin Dose 500 MG; Start 08/10/17 at 21:00 Atorvastatin Calcium (Lipitor) 40 mg QHS GTB Last administered on 08/21/17 21: 05; Admin Dose 40 MG; Start 08/10/17 at 21:00 Bisacodyl (Dulcolax Supp) 10 mg DAILY PRN [place] PRN; Start 08/10/17 at 16:00 Docusate Sodium (Colace Liquid Cup) 200 mg QHS GTB Last administered on 21:08; Admin Dose 200 MG; Start 08/10/17 at 21:00 Furosemide (Lasix) 20 mg DAILY GTB Last administered on 08/22/17 08:44; Admin Dose 20 MG; Start 08/11/17 at 09:00 Levetiracetam (Keppra Liquid) 500 mg BID GTB Last administered on 08/22/17 08: 43; Admin Dose 500 MG; Start 08/10/17 at 21:00 Magnesium Hydroxide (Milk Of Mag) 30 ml QHS GTB Last administered on 08/21/17 21:08; Admin Dose 30 ML; Start 08/10/17 at 21:00 Magnesium Oxide (Mag-Ox 400) 400 mg TID GTB Last administered on 08/22/17 08: 44; Admin Dose 400 MG; Start 08/10/17 at 21:00 Ondansetron HCl (Zofran Tab) 4 mg Q6H PRN GTB NAUSEA AND/OR VOMITING; Start 08/10/17 at 16:00 Sodium Biphosphate/ Sodium Phosphate (Fleet Enema) 133 ml Q24H PRN [place] CONSTIPATION; Start 08/10/17 at 17:00 Tramadol HCl (Ultram) 50 mg BID GTB Last administered on 08/22/17 08:44; Admin Dose 50 MG; Start 08/10/17 at 21:00 Ferrous Sulfate (Feosol Liquid Cup) 300 mg BID GTB Last administered on 08:43; Admin Dose 300 MG; Start 08/10/17 at 21:00 Multivitamins Therapeutic (Theragran) 1 tab DAILY GTB Last administered on 08/22 08:44; Admin Dose 1 TAB; Start 08/11/17 at 09:00 Lansoprazole (Prevacid) 30 mg DAILY@06 GTB Last administered on 08/22/17 05:32 ; Admin Dose 30 MG; Start 08/11/17 at 06:00 Diltiazem HCl (Cardizem) 60 mg Q8 GTB Last administered on 08/22/17 05:31; Admin Dose 60 MG; Start 08/10/17 at 22:00 Miscellaneous Information 1 ea NOTE XX ; Start 08/10/17 at 16:30 Glucose (Glutose) 15 gm Q15M PRN PO DECREASED GLUCOSE; Start 08/10/17 at 16:30 Glucose (Glutose) 22.5 gm Q15M PRN PO DECREASED GLUCOSE; Start 08/10/17 at 16:30 Dextrose (D50w Syringe) 25 ml Q15M PRN IV DECREASED GLUCOSE Last administered on 08/16/17 17:27; Admin Dose 25 ML; Start 08/10/17 at 16:30 Dextrose (D50w Syringe) 50 ml Q15M PRN IV DECREASED GLUCOSE Last administered on 08/12/17 21:56; Admin Dose 50 ML; Start 08/10/17 at 16:30 Glucagon (Glucagen) 1 mg Q15M PRN IM DECREASED GLUCOSE; Start 08/10/17 at 16:30 Glucose (Glutose) 15 gm Q15M PRN BUCCAL DECREASED GLUCOSE; Start 08/10/17 at 16: 30 Latanoprost (Xalatan) 1 drop HS BOTH EYES Last administered on 08/21/17 21:08 ; Admin Dose 1 DROP; Start 08/10/17 at 21:00 Diagnostic Test (Pha) 1 ea 1 ea 02 XX Last administered on 08/22/17 02:27; Admin Dose 1 EA; Start 08/12/17 at 02:00 Sodium Chloride (1/2 NS) 1,000 ml @ 75 mls/hr [id number] IV Last administered on 08/22/17 05:30; Admin Dose 75 MLS/HR; Start 08/11/17 at 13:30 Metoprolol Tartrate (Lopressor) 25 mg BID GTB Last administered on 08/22/17 08 :44; Admin Dose 25 MG; Start 08/11/17 at 21:00 Sodium Hypochlorite 1 applic 1 applic BID IRR Last administered on 08/22/17 08 :44; Admin Dose 1 APPLIC; Start 08/11/17 at 21:00 Ceftriaxone Sodium 50 ml @ 100 mls/hr Q24H IVPB Last administered on 13:08; Admin Dose 100 MLS/HR; Start 08/12/17 at 13:30 Metronidazole (Flagyl 500 Mg (Pmx)) 100 ml @ 100 mls/hr Q8 IVPB Last administered on 08/22/17 05:33; Admin Dose 100 MLS/HR; Start 08/12/17 at 14:00 Enoxaparin Sodium 40 mg 40 mg DAILY SC Last administered on 08/22/17 08:48; Admin Dose 40 MG; Start 08/12/17 at 15:00 Daptomycin/Sodium Chloride (Cubicin/NS) 100 ml @ 200 mls/hr Q24H IVPB Last administered on 08/21/17 15:59; Admin Dose 200 MLS/HR; Start 08/14/17 at 16:30 Metoclopramide HCl (Reglan Liq) 10 mg Q8 GTB Last administered on 08/22/17 05: 32; Admin Dose 10 MG; Start 08/16/17 at 22:00 Linagliptin (Tradjenta) 5 mg DAILY G-TUBE Last administered on 08/22/17 08:43 ; Admin Dose 5 MG; Start 08/19/17 at 17:30 Insulin Glargine (Lantus) 35 unit Q12 SC Last administered on 08/22/17 09:25; Admin Dose 35 UNIT; Start 08/22/17 at 09:00 Insulin Aspart (Novolog Insulin Pen) NOVOLOG *MODERATE* ALGORI... Q4 SC Last administered on 08/22/17 09:26; Admin Dose 4 UNIT; Start 08/22/17 at 09:00 STEPHANIE NEIL MD Aug 22, 2017 09:53
--- NOTE | 2017-08-22 11:25 | PN ---
Date/Time of Note Date/Time of Note DATE: 08/22/17 TIME: 11:22 Assessment/Plan Lines/Catheters IV Catheter Type (from [facility]): Peripheral IV Shields in Place (from [facility]): Yes Assessment/Plan Chief Complaint/Hosp Course 1. Sacral wound stage IV with osteomyelitis: s/p debridement 08/14, cultures noted -continue local care with dakin's: may be dc'd with same wound care orders -iv abx per sensitivities -frequent turning and offloading -low airloss mattress -nutrition optimization -vitamin c/short term zinc -debridement prn 2. UTI: cultures noted -cath care -abx per sensitivities 3.Hypochromic anemia: no acute bleed noted -monitor and transfuse as needed -workup per medical team 4. Sepsis with Leukocytosis: likely 2/2 above: resolved -as above 5. Thrombocytosis: 2/2 infection vs. other -monitor and workup if persistent 6. Dysphagia with feeding per feeding tube -cont tf with aspiration precautions 7. DM/ Hyperglycemia: -blood sugar optimization 8. Elevated alk phos: 2/2 osteo vs. gi source (doubt): abd us noted -monitor 10. HTN: -medical optimization 11. hyponatremia- judicious fluids+/- fluid restriction 12. Hx. of bipolar disorder/schizophrenia -medical./psych management 13. History of epilepsy -sz precautions 14. Loose stools: +cdiff -abx Thank you. Patient seen and examined in collaboration with Dr. Eric Tineo. Problems: Subjective 24 Hr Interval Summary Feels well. No fevers, chills, sob, congested cough, n/v/d/dysuria, cp, palpitations, new wounds or excessive wound drainage. Tolerating tf with +bowel function. Exam/Review of Systems Vital Signs Vitals Vital Signs Date Time Temp Pulse Resp B/P Pulse Ox O2 Delivery O2 Flow Rate FiO2 08/22/17 11:17 98.3 83 18 130/66 98 08/22/17 05:21 Nasal Cannula 3.0 Intake and Output 08/21/17 08/21/17 08/22/17 15:00 23:00 07:00 Intake Total 250 ml 1690 ml 1470 ml Output Total 1400 ml 2000 ml Balance 250 ml 290 ml -530 ml Exam Free Text/Dictation Constitutional: alert, oriented (to self), other (answers simple questions) Psych: nl mood/affectm, pleasant Head: atraumatic, normocephalic Eyes: nl lids, nl sclera ENMT: mucosa pink and moist Neck: non-tender, supple Respiratory: normal air movement Cardiovascular: regular rate and rhythm SR Gastrointestinal: bowel sounds, nondistended, non-tender, gtube, soft Genitourinary - Female: nl external genitalia Musculoskeletal: other (stiffness) Extremities: normal pulses, No edema Neurological: nl speech, No nl mental status (slow to respond), No nl strength Skin: other (multiple wounds, sacral ulcer packed, nonmalodorous,. min drainage ) ble leg wounds Results Result Diagram: 08/21/17 0755 08/22/17 0745 SOREN LISA NP Aug 22, 2017 11:25
[2017-08-22] MEDS: CEFTRIAXONE 1 GM/NS 50 ML IVPB SCH (12:22)
--- NOTE | 2017-08-22 16:55 | DS ---
Date/Time of Note Date/Time of Note DATE: 08/22/17 TIME: 16:53 Discharge Summary Admission/Discharge Info Admit Date/Time Aug 10, 2017 at 14:12 Discharge Date/Time - Sepsis due to UTI, infected decubitus ulcer and bacteremia, resolving. Continue antibiotics per ID. Dr. 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 Continue Keppra. - Dysphagia with percutaneous endoscopic gastrostomy. Continue G-tube feeding , aspiration precautions. - Diabetes mellitus type 2. Continue Lantus and NovoLog. Dr. Bonilla is following in endocrinology consultation - Dyslipidemia. Continue statins. - Schizophrenia and bipolar disorder. Further recommendations based on clinical course. Plan of care was discussed with Dr. Bryan. Patient Condition: Stable Consults ID- DR PITT SURGERY- DR. GODOY ENDOCRINOLOGY- [facility] Course HPI This 56-year-old female, a SNF admitted with weakness/tiredness due to increasing pain at sacral IV stage ulcer draining fluid and pus. However she is tachycardic on triage. She also states that she feels somewhat weak and tired. Denies fevers. Denies cough.Denies chest pain and shortness of breath.Patient was admitted under Dr Bryan for further evaluation and treatment. Constitutional: alert. VSS Respiratory: normal air movement Cardiovascular: nl pulses Gastrointestinal: other (G-tube), soft Extremities: normal pulses Neurological: confused Skin: other (Sacral decubitus ulcer) Patient is transferred to [facility] in a stable condition.Plan of care staff/ dr bryan Home Meds Reported Medications Albuterol Sulfate* (Albuterol Sulfate* Neb) 0.083%-3 Ml Neb, 2.5 MG NEB Q4H Y for WHEEZING AND SOB, #30 VIAL 08/10/17 Artificial Tears* (Akwa Oint*) 3.5 Gm Oint, 1 APPLIC BOTH EYES HS, #1 TUB 08/10/17 [Diltiaze 12MG/Ml] No Conflict Check, 5 ML GTB Q8H for HTN HOLD IF SBP BELOW 110 OR HR BELOW 60 08/10/17 Levetiracetam* (Keppra*) 500 Mg/5 Ml Solution, 500 MG GTB BID, BOTTLE 08/10/17 Bimatoprost* (Lumigan*) 0.01%-5 Ml Opht Drops, 1 DROP BOTH EYES HS, EA 08/10/17 Magnesium Oxide* (Magnesium Oxide*) 400 Mg Tablet, 400 MG GTB TID, TAB 08/10/17 Insulin Glargine,Hum.rec.anlog (Toujeo Solostar) 300 Unit/1 Ml Insuln.pen, 40 UNIT SQ QHS 08/10/17 Metoclopramide* (Reglan*) 10 Mg/10 Ml Soln, 10 MG GTB Q6 Y for NAUSEA AND/OR VOMITING, ML 08/10/17 Omeprazole* (Omeprazole*) 20 Mg Capsule.dr, 20 MG GTB DAILY, #30 CAP 08/10/17 Insulin Aspart* (Novolog Insulin Pen*) 100 Unit/Ml Soln, 3 UNIT SC WITH MEALS, EA 08/10/17 Ondansetron Hcl* (Zofran*) 4 Mg Tablet, 4 MG GTB Q6H Y for NAUSEA AND OR VOMITING, TAB 03/19/17 Bisacodyl* (Bisacodyl*) 10 Mg Supp, 10 MG OH DAILY Y for PRN, SUPP 03/18/17 Acetaminophen* (Tylenol*) 500 Mg Tab, 1000 MG GTB Q4H Y for PAIN LEVEL 4-05/11, TAB 03/18/17 Magnesium Hydroxide* (Milk Of Magnesia*) 400 Mg/5 Ml Oral.susp, 30 ML GTB QHS, ML 03/18/17 Atorvastatin* (Atorvastatin*) 40 Mg Tablet, 40 MG GTB QHS, #30 TAB 03/18/17 Furosemide* (Lasix*) 20 Mg Tablet, 20 MG GTB DAILY, TAB HOLD IF SBP BELOW 110 OR HR BELOW 60 03/18/17 Glucagon,Human Recombinant (Glucagon Emergency Kit) 1 Mg Kit, 1 MG IJ NEEDED , KIT FOR BS BELOW 70MG/DL [id number] PRN 03/18/17 Ferrous Sulfate (Ferrous Sulfate) 220 Mg/5 Ml Solution, 330 MG GTB BID 03/18/17 Tramadol HCl (Tramadol HCl) 50 Mg Tablet, 50 MG GTB BID, #60 TAB 03/18/17 Cran/Vitc/Mannose/Inulin/Brom (Uti-Stat Liquid) 3,875 Mg/30 Ml Liquid, 30 ML GTB BID 03/18/17 Ascorbic Acid* (Vitamin C* Liq) 500 Mg/5 Ml Syrup, 500 MG GTB TID, ML 03/18/17 Cranberry Extract (Cranberry) 425 Mg Capsule, 425 MG GTB BID, CAP 12/28/16 Acetaminophen* (Tylenol*) 325 Mg Tablet, 650 MG GTB Q4H Y for MILD PAIN LEVEL 1- 3, TAB FOR FEVER 100 AND ABOVE 12/03/16 Multivitamin with Minerals (Multivitamins with Minerals) 1 Each Tablet, 1 EACH GTB BID, TAB 12/03/16 Sod Phosphate/Sod Biphosphate* (Fleet* Enema Pediatric) 66.6 Ml Soln, 66.6 ML OH Q24H Y for CONSTIPATION, ENEMA NEEDED 12/03/16 Docusate Sodium* (Colace*) 100 Mg Capsule, 200 MG GTB QHS, #30 CAP 12/03/16 Primary Care Provider Mckinley Bryan MD Pending Labs Laboratory Tests Test 08/21/17 17:20 08/21/17 20:56 08/22/17 01:05 08/22/17 05:16 Bedside Glucose 255mg/dL (70-220) 305mg/dL (70-220) 183mg/dL (70-220) 236mg/dL (70-220) Test 08/22/17 07:45 08/22/17 08:42 08/22/17 12:21 Sodium Level 135mmol/L (135-144) Potassium Level 4.3mmol/L (3.5-5.1) Chloride Level 98mmol/L (97-110) Carbon Dioxide Level 30mmol/L (21-31) Anion Gap 11 (8-16) Blood Urea Nitrogen 19mg/dl (7-20) Creatinine 0.43mg/dl (0.44-1.00) Glucose Level 212mg/dl (70-220) Calcium Level 9.5mg/dl (8.4-10.2) Total Bilirubin 0.0mg/dl (0.2-1.3) Direct Bilirubin 0.00mg/dl (0.00-0.20) Indirect Bilirubin 0.0mg/dl (0-1.1) Aspartate Amino Transf (AST/SGOT) 30IU/L (15-46) Alanine Aminotransferase (ALT/SGPT) 29IU/L (13-69) Alkaline Phosphatase 146IU/L (42-121) Total Protein 6.9g/dl (6.1-8.1) Albumin 3.1g/dl (3.3-4.9) Globulin 3.80g/dl (1.3-3.2) Albumin/Globulin Ratio 0.81 Bedside Glucose 204mg/dL (70-220) 140mg/dL (70-220) MICHAEL COLINDRES Aug 22, 2017 16:55 Albumin/Globulin Ratio 0.81 Bedside Glucose 204mg/dL (70-220) 140mg/dL (70-220) MICHAEL COLINDRES Aug 22, 2017 16:55 204mg/dL (70-220) 140mg/dL (70-220) MICHAEL COLINDRES Aug 22, 2017 16:55
--- NOTE | 2017-08-22 16:56 | PDOCDIS ---
Discharge Instructions CONDITION Patient Condition: Stable HOME CARE INSTRUCTIONS: Special Diet: Diabetisource ACTIVITY: Activity Restrictions: Slowly Increase Activity Rest between Activity Bathing Restrictions: Sponge Bath FOLLOW UP/APPOINTMENTS Follow-up Plan Transfer to hospital if symptoms get worse. Ricki Salvador/staff MICHAEL COLINDRES Aug 22, 2017 16:56
[2017-08-22] MEDS: DAPTOMYCIN IVPB SCH (17:16)
[2017-08-22] MEDS: SOD CHLORIDE 0.9% IVPB SCH (17:16)
--- NOTE | 2017-08-22 17:58 | CONS ---
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 Suggested end date 09/25/2017 - continue ceftriaxone (08/12/2017-) for proteus infection. Suggested end date . - continue IV metronidazole (08/12/2017-) for c-diff - we recommend weekly CBC, CMP, CK (CK 30 on 08/19/2017) Problems: Consultation Date/Type/Reason Admit Date/Time Aug 10, 2017 at 14:12 Type of Consultation: id Referring Provider: LUZMA HYMAN MD Exam/Review of Systems Vital Signs Vitals Vital Signs Date Time Temp Pulse Resp B/P Pulse Ox O2 Delivery O2 Flow Rate FiO2 08/22/17 16:40 80 08/22/17 15:22 98.2 16 105/55 99 08/22/17 08:30 Nasal Cannula 4.0 Intake and Output 08/21/17 08/21/17 08/22/17 15:00 23:00 07:00 Intake Total 250 ml 1690 ml 1470 ml Output Total 1400 ml 2000 ml Balance 250 ml 290 ml -530 ml Exam Constitutional: alert Psych: no complaints Head: atraumatic, normocephalic Eyes: EOMI Respiratory: clear to auscultation Cardiovascular: regular rate and rhythm Gastrointestinal: soft Results Result Diagram: 08/21/17 0755 08/22/17 0745 Results 24 hrs Laboratory Tests Test 08/21/17 20:56 08/22/17 01:05 08/22/17 05:16 08/22/17 07:45 Bedside Glucose 305 H 183 236 H Sodium Level 135 Potassium Level 4.3 Chloride Level 98 Carbon Dioxide Level 30 Anion Gap 11 Blood Urea Nitrogen 19 Creatinine 0.43 L Glucose Level 212 Calcium Level 9.5 Total Bilirubin 0.0 L Direct Bilirubin 0.00 Indirect Bilirubin 0.0 Aspartate Amino Transf (AST/SGOT) 30 Alanine Aminotransferase (ALT/SGPT) 29 Alkaline Phosphatase 146 H Total Protein 6.9 Albumin 3.1 L Globulin 3.80 H Albumin/Globulin Ratio 0.81 Test 08/22/17 08:42 08/22/17 12:21 08/22/17 17:15 Bedside Glucose 204 140 123 Medications Medications Current Medications Acetaminophen (Tylenol Tab) 650 mg Q4H PRN GTB MILD PAIN LEVEL 1-3 Last administered on 08/20/17 16:08; Admin Dose 650 MG; Start 08/10/17 at 16:00 Eye Lubricant (Akwa Oint) 1 applic HS BOTH EYES Last administered on 08/21/17 21:08; Admin Dose 1 APPLIC; Start 08/10/17 at 21:00 Ascorbic Acid (Vitamin C) 500 mg TID GTB Last administered on 08/22/17 12:22; Admin Dose 500 MG; Start 08/10/17 at 21:00 Atorvastatin Calcium (Lipitor) 40 mg QHS GTB Last administered on 08/21/17 21: 05; Admin Dose 40 MG; Start 08/10/17 at 21:00 Bisacodyl (Dulcolax Supp) 10 mg DAILY PRN [place] PRN; Start 08/10/17 at 16:00 Docusate Sodium (Colace Liquid Cup) 200 mg QHS GTB Last administered on 21:08; Admin Dose 200 MG; Start 08/10/17 at 21:00 Furosemide (Lasix) 20 mg DAILY GTB Last administered on 08/22/17 08:44; Admin Dose 20 MG; Start 08/11/17 at 09:00 Levetiracetam (Keppra Liquid) 500 mg BID GTB Last administered on 08/22/17 08: 43; Admin Dose 500 MG; Start 08/10/17 at 21:00 Magnesium Hydroxide (Milk Of Mag) 30 ml QHS GTB Last administered on 08/21/17 21:08; Admin Dose 30 ML; Start 08/10/17 at 21:00 Magnesium Oxide (Mag-Ox 400) 400 mg TID GTB Last administered on 08/22/17 12: 22; Admin Dose 400 MG; Start 08/10/17 at 21:00 Ondansetron HCl (Zofran Tab) 4 mg Q6H PRN GTB NAUSEA AND/OR VOMITING; Start 08/10/17 at 16:00 Sodium Biphosphate/ Sodium Phosphate (Fleet Enema) 133 ml Q24H PRN [place] CONSTIPATION; Start 08/10/17 at 17:00 Tramadol HCl (Ultram) 50 mg BID GTB Last administered on 08/22/17 08:44; Admin Dose 50 MG; Start 08/10/17 at 21:00 Ferrous Sulfate (Feosol Liquid Cup) 300 mg BID GTB Last administered on 08:43; Admin Dose 300 MG; Start 08/10/17 at 21:00 Multivitamins Therapeutic (Theragran) 1 tab DAILY GTB Last administered on 08/22 08:44; Admin Dose 1 TAB; Start 08/11/17 at 09:00 Lansoprazole (Prevacid) 30 mg DAILY@06 GTB Last administered on 08/22/17 05:32 ; Admin Dose 30 MG; Start 08/11/17 at 06:00 Diltiazem HCl (Cardizem) 60 mg Q8 GTB Last administered on 08/22/17 13:51; Admin Dose 60 MG; Start 08/10/17 at 22:00 Miscellaneous Information 1 ea NOTE XX ; Start 08/10/17 at 16:30 Glucose (Glutose) 15 gm Q15M PRN PO DECREASED GLUCOSE; Start 08/10/17 at 16:30 Glucose (Glutose) 22.5 gm Q15M PRN PO DECREASED GLUCOSE; Start 08/10/17 at 16:30 Dextrose (D50w Syringe) 25 ml Q15M PRN IV DECREASED GLUCOSE Last administered on 08/16/17 17:27; Admin Dose 25 ML; Start 08/10/17 at 16:30 Dextrose (D50w Syringe) 50 ml Q15M PRN IV DECREASED GLUCOSE Last administered on 08/12/17 21:56; Admin Dose 50 ML; Start 08/10/17 at 16:30 Glucagon (Glucagen) 1 mg Q15M PRN IM DECREASED GLUCOSE; Start 08/10/17 at 16:30 Glucose (Glutose) 15 gm Q15M PRN BUCCAL DECREASED GLUCOSE; Start 08/10/17 at 16: 30 Latanoprost (Xalatan) 1 drop HS BOTH EYES Last administered on 08/21/17 21:08 ; Admin Dose 1 DROP; Start 08/10/17 at 21:00 Diagnostic Test (Pha) 1 ea 1 ea 02 XX Last administered on 08/22/17 02:27; Admin Dose 1 EA; Start 08/12/17 at 02:00 Sodium Chloride (1/2 NS) 1,000 ml @ 75 mls/hr [id number] IV Last administered on 08/22/17 05:30; Admin Dose 75 MLS/HR; Start 08/11/17 at 13:30 Metoprolol Tartrate (Lopressor) 25 mg BID GTB Last administered on 08/22/17 08 :44; Admin Dose 25 MG; Start 08/11/17 at 21:00 Sodium Hypochlorite 1 applic 1 applic BID IRR Last administered on 08/22/17 08 :44; Admin Dose 1 APPLIC; Start 08/11/17 at 21:00 Ceftriaxone Sodium 50 ml @ 100 mls/hr Q24H IVPB Last administered on 12:22; Admin Dose 100 MLS/HR; Start 08/12/17 at 13:30 Metronidazole (Flagyl 500 Mg (Pmx)) 100 ml @ 100 mls/hr Q8 IVPB Last administered on 08/22/17 13:51; Admin Dose 100 MLS/HR; Start 08/12/17 at 14:00 Enoxaparin Sodium 40 mg 40 mg DAILY SC Last administered on 08/22/17 08:48; Admin Dose 40 MG; Start 08/12/17 at 15:00 Daptomycin/Sodium Chloride (Cubicin/NS) 100 ml @ 200 mls/hr Q24H IVPB Last administered on 08/22/17 17:16; Admin Dose 200 MLS/HR; Start 08/14/17 at 16:30 Metoclopramide HCl (Reglan Liq) 10 mg Q8 GTB Last administered on 08/22/17 13: 51; Admin Dose 10 MG; Start 08/16/17 at 22:00 Linagliptin (Tradjenta) 5 mg DAILY G-TUBE Last administered on 08/22/17 08:43 ; Admin Dose 5 MG; Start 08/19/17 at 17:30 Insulin Glargine (Lantus) 35 unit Q12 SC Last administered on 08/22/17 09:25; Admin Dose 35 UNIT; Start 08/22/17 at 09:00 Insulin Aspart (Novolog Insulin Pen) NOVOLOG *MODERATE* ALGORI... Q4 SC Last administered on 08/22/17 09:26; Admin Dose 4 UNIT; Start 08/22/17 at 09:00 BENITO THOMAS MD Aug 22, 2017 17:58
== END 2017-08-22 21:19 | DRG 853 ==
LOC: E/R 10:28 → TEL 14:12
PROVIDERS: ADMIT Internal Medicine; ATTEND Internal Medicine
PROC: 0QB10ZZ Excision of Sacrum, Open Approach (ICD-10-PCS; principal; 2017-08-14)
DX: A41.1 Sepsis due to other specified staphylococcus (principal); G93.40 Encephalopathy, unspecified; L89.154 Pressure ulcer of sacral region, stage 4; A04.7 Enterocolitis due to Clostridium difficile; R13.10 Dysphagia, unspecified; E11.69 Type 2 diabetes mellitus with other specified complication; N39.0 Urinary tract infection, site not specified; M46.28 Osteomyelitis of vertebra, sacral and sacrococcygeal region; E87.1 Hypo-osmolality and hyponatremia; G40.909 Epilepsy, unspecified, not intractable, without status epilepticus; E78.5 Hyperlipidemia, unspecified; F20.9 Schizophrenia, unspecified; F31.9 Bipolar disorder, unspecified; E11.65 Type 2 diabetes mellitus with hyperglycemia; I25.10 Atherosclerotic heart disease of native coronary artery without angina pectoris; I10 Essential (primary) hypertension; D50.9 Iron deficiency anemia, unspecified; K59.00 Constipation, unspecified; Z86.73 Personal history of transient ischemic attack (TIA), and cerebral infarction without residual deficits; B96.4 Proteus (mirabilis) (morganii) as the cause of diseases classified elsewhere; Z86.718 Personal history of other venous thrombosis and embolism; Z79.4 Long term (current) use of insulin; Z93.1 Gastrostomy status
CPT/HCPCS: 36415; 72131; 74000; 76705; 80048; 80053; 80202; 81001; 82550; 82565; 82962; 83605; 84484; 84520; 85025; 85610; 85651; 85730; 87040; 87070; 87075; 87086; 93005; 93970; 96374; 96375; 97163; J0696; J1650; J1815; J2185; J2543; J3370; J7030; Q9967

== ENCOUNTER 2017-12-14 15:51 | Inpatient (IN) | END 2017-12-24 15:55 | DRG 689 ==

== ENCOUNTER 2018-01-01 09:53 | Inpatient (IN) | END 2018-01-21 17:34 | DRG 870 ==